=== PATIENT | male | born 1950 | race Caucasian/White ===

== ENCOUNTER 2019-02-14 07:57 | Outpatient (RCR) | payer OTHER, SELFPAY | END 2019-05-03 12:33 | disposition home or self-care (01) | LOC: ANHWOC 07:57 | PROVIDERS: PCP Emergency Medicine; Visit Provider Podiatrist Foot & Ankle Surgery | DX: E11.621 Type 2 diabetes mellitus with foot ulcer (principal); E11.42 Type 2 diabetes mellitus with diabetic polyneuropathy | CPT/HCPCS: 99212; G0463 ==

== ENCOUNTER 2019-06-03 07:33 | Outpatient (CLI) | payer OTHER, SELFPAY ==
--- NOTE | ~2019-06-03 | NM_ITS ---
EXAMINATION: NM bone 3 phase DATE: 06/03/2019 13:56 INDICATION: Chronic non pressure ulcer of the left foot TECHNIQUE: 24.5 mCi Tc-99m HDP by intravenous route. Scintigrams of the left foot were obtained in a ngiographic, blood pool, and delayed phases. COMPARISON: Left foot radiographs dated 03/09/2018. No more recent radiographs for comparison. Earlier triphase bone scan dated 09/22/2014 FINDINGS: There is increased activity on the angiographic phase images extending to the left foot in particular the region of the great toe. Persistent increased soft tissue activity on the immediate blood pool i mages surrounding the distal phalanx of the great toe There is increased delayed uptake at both the f irst proximal and distal branches. At the distal phalanx as well be consistent with osteomyelitis. Th e uptake at the base of the proximal phalanx could be related to osteoarthritis at the first metatars ophalangeal joint however there also appears to be slightly less prominent uptake and the intervening diaphysis of the proximal phalanx which remain suspicious for osteomyelitis. IMPRESSION: 1. 3 phase uptake at the left great toe consistent with osteomyelitis at least to the distal phalanx or possibly with extension to the proximal phalanx. Recommend comparison with plain radiographs of t he left great toe. Reviewed, dictated and finalized at location A. ET ASSEMBLER IMPRESSION: 1. 3 phase uptake at the left great toe consistent with osteomyelitis at least to the distal phalanx or possibly with extension to the proximal phalanx. Javier mmend comparison with plain radiographs of the left great toe.
== END 2019-06-03 07:34 | disposition home or self-care (01) ==
PROVIDERS: PCP Emergency Medicine; Visit Provider Podiatrist Foot & Ankle Surgery
DX: L97.522 Non-pressure chronic ulcer of other part of left foot with fat layer exposed (principal)
CPT/HCPCS: 78315; A9561

== ENCOUNTER 2020-01-31 08:14 | Outpatient (CLI) | payer OTHER, SELFPAY ==
--- NOTE | ~2020-01-31 | US_ITS ---
EXAMINATION: US art doppler w press LE BI DATE: 01/31/2020 09:15 INDICATION: Multiple skin ulcers at the bilateral lower limbs. Diabetes and hypercholesterolemia. TECHNIQUE: Segmental pressures and plethysmographic and Doppler waveforms of the brachial and lower e xtremity arteries were obtained. COMPARISON: None. FINDINGS: Cardiac arrhythmia is present consistent with given history of atrial fibrillation. Right and left br achial artery pressures of 109 mm Hg and 114 mm Hg, respectively, are concordant (normal difference < = 30 mmHg). The right ankle-brachial index (APRIL) is 1.46 (normal >= 0.9-1). The right great toe-brachial index (T BI) is 1.24 (normal >= 0.6-0.8). The right lower extremity segmental pressure gradients are increased between the right dorsalis pedis artery and the right posterior tibial artery (normal gradients <= 2 0-30 mmHg between adjacent levels on the same leg or the same levels on the two legs). Arterial wavef orms are triphasic at the right common femoral and dorsalis pedis arteries and biphasic at the remain ing arteries with brisk systolic upstrokes throughout. The left APRIL was unable to be obtained due to inability to occlude the vessels at the left ankle. The left TBI is 1.55. The left lower extremity segmental pressure gradients where measurable are normal. Arterial waveforms are triphasic at the left dorsalis pedis artery and biphasic at the remaining art eries with brisk systolic upstrokes throughout. IMPRESSION: 1. No significant arterial occlusive disease to either lower limb with normal bilateral TBIs. Reviewed, dictated and finalized at location B. IMPRESSION: 1. No significant arterial occlusive disease to either lower limb with normal b ilateral TBIs.
== END 2020-01-31 08:15 | disposition home or self-care (01) ==
LOC: ANHIMG 08:15
PROVIDERS: PCP Emergency Medicine; Visit Provider Emergency Medicine
DX: L98.491 Non-pressure chronic ulcer of skin of other sites limited to breakdown of skin (principal); I73.9 Peripheral vascular disease, unspecified
CPT/HCPCS: 93923

== ENCOUNTER 2021-01-06 13:51 | Outpatient (CLI) | payer OTHER, SELFPAY ==
--- NOTE | ~2021-01-06 | US_ITS ---
EXAMINATION: US renal BI DATE: 01/06/2021 14:30 INDICATION: Monoclonal gammopathy TECHNIQUE: Multiple ultrasound grayscale images of the kidneys were obtained. COMPARISON: 02/02/2016 FINDINGS: The right kidney measures 10.1 x 5.6 x 7.3 cm. The left kidney measures 11.3 x 5.3 x 5.5 cm. The kidn eys demonstrate normal echogenicity. There is no hydronephrosis in either kidney. No stones identifi ed. The bladder is normal. Diffuse hepatic steatosis. IMPRESSION: 1. Normal kidneys without hydronephrosis. 2. Diffuse hepatic steatosis. Reviewed, dictated and finalized at location B.
== END 2021-01-06 13:52 | disposition home or self-care (01) ==
PROVIDERS: PCP Emergency Medicine; Visit Provider Internal Medicine Nephrology
DX: D47.2 Monoclonal gammopathy (principal); N18.32 Chronic kidney disease, stage 3b; K76.0 Fatty (change of) liver, not elsewhere classified
CPT/HCPCS: 76775

== ENCOUNTER 2023-06-07 00:22 | Day surgery (SDC) | payer OTHER, SELFPAY ==
[2023-05-23 13:56] VITALS: BMI 40.6
--- NOTE | 2023-05-26 13:09 | PC.NURSE ---
Spoke with patient regarding medication WARFARIN. Pt. verbalizes understanding that the last dose of WARFARIN is to be taken on 06/02/2023 and the Endoscopist will instruct them when to restart after the procedure.
--- NOTE | 2023-06-05 09:42 | SUR.PREOP ---
Patient called regarding upcoming procedure. Reviewed preop instructions, appointment times, and procedure prep.
[2023-06-06 14:23] VITALS: BP 154/83; PULSE 91; RESP 20; TEMP 36.1; O2SAT 97
[2023-06-07] MEDS: LACTATED RINGERS 1,000 ML 150 ML IV CONT (06:25)
[2023-06-07 06:31] LABS: Glucose Point of Care 183 mg/dl (65-105)
--- NOTE | 2023-06-07 07:27 | WPDANESEPPF ---
Anes - Initial Pre Proc Eval Procedure: Operation Date: 06/07/23 07:30 Proposed Procedures p Colonoscopy - Anthony Sumner MD Date/Time: 06/07/23 07:27 Surgeon: Anthony Sumner MD Pre Op Diagnosis: hx colon polyps Patient Data Age: 73 Gender: M Height: 1.91 m Weight: 141.7 kg Last Vital Signs Temp 96.9 F L 06/06/23 14:23 Pulse 91 06/06/23 14:23 Resp 20 06/06/23 14:23 BP 154/83 H 06/06/23 14:23 Pulse Ox 97 06/06/23 14:23 O2 Del Method Room Air 06/06/23 14:23 Allergies Allergy/AdvReac Type Severity Reaction Status Date / Time No Known Allergies Allergy Verified 06/07/23 06:20 Home Medications Medication Instructions Recorded Confirmed Type carvedilol 25 mg tablet 25 mg PO BID 01/30/19 06/07/23 History losartan 50 mg tablet 50 mg PO DAILY 01/30/19 06/07/23 History potassium chloride 20 mEq 20 meq PO DAILY 01/30/19 06/07/23 History tablet,extended release spironolactone 50 mg tablet 50 mg PO DAILY 01/30/19 06/07/23 History pen needle, diabetic 31 gauge x #30 ea 04/25/19 06/06/23 History 1/4 (ReliOn Dorris) blood-glucose meter (Contour Next #1 ea 07/29/19 06/06/23 Rx Meter) warfarin 5 mg tablet See Rx Instructions .Route .COMPLEX 11/22/19 06/07/23 History blood sugar diagnostic (Contour #400 ea 04/26/21 06/06/23 Rx Next Test Strips) lancets (Microlet Lancet) #400 ea 05/24/21 06/06/23 Rx pen needle, diabetic 32 gauge x #200 ea 03/15/22 06/06/23 Rx 5/32 (BD Ultra-Fine Lona Pen Needle) fenofibrate 54 mg tablet 54 mg PO DAILY #90 tabs 11/02/22 06/07/23 Rx flash glucose sensor (FreeStyle #2 ea 03/17/23 06/06/23 Rx Germania 2 Sensor kit) gabapentin 100 mg capsule 100 mg PO TID #270 caps 04/19/23 06/07/23 Rx insulin regular hum U-500 conc 500 See Rx Instructions subcut 05/03/23 06/07/23 Rx unit/mL(3 mL) subcut pen (Humulin BIDWMEAL #36 mL R U-500 (Conc) Insulin Kwikpen) atorvastatin 40 mg tablet See Rx Instructions .Route 05/15/23 06/07/23 Rx .COMPLEX #90 tabs furosemide 80 mg tablet 80 mg PO DIRECTED 05/23/23 06/07/23 History Laboratory Tests 06/07/23 06:25 POC Capillary Glucose 183 H mg/dl (65-105) Patient hx anesthesia problems: none Family hx anesthesia problems: none Results Review: All pre-operative results and documents have been reviewed as part of the pre-operative evaluation. [facility] Past Medical History Medical History Afib ASHD (arteriosclerotic heart disease) Asthma Basal cell carcinoma (BCC) of brow BMI greater than 40 CHF (congestive heart failure) Chronic a-fib Chronic pain of both knees CKD (chronic kidney disease) stage 4, GFR 15-29 ml/min Claudication of both lower extremities Contact dermatitis Diabetes mellitus Diabetic ulcer of toe of left foot HTN (hypertension), benign Hyperlipidemia LDL goal <100 Insulin resistance Metabolic syndrome Mixed hyperlipidemia Multiple myeloma Type 2 diabetes mellitus with hyperglycemia, with long-term current use of insulin Urticaria Vitamin D deficiency Surgical History Surgical History H/O arthroscopy of left knee H/O arthroscopy of right knee History of facial surgery removal of basal cell carcinoma with skin graft Family History Family History Father Family history of emphysema, Onset Age: 69 Social History Social History Smoking status: Never smoker Alcohol intake: current Substance use: never Substance use type: does not use Do You Feel Safe in your Home?: Yes Lack of Transportation: No Lack of Food: Never True Current Housing: I Have Housing Concerned About Future Housing: No Difficulty Paying Gas/Electric Bills: No Difficulty Paying for Meds: No Currentl
--- NOTE | 2023-06-07 07:29 | PM.HPGS ---
History of Present Illness History of Present Illness Consent: Risks, benefits, and alternatives have been discussed and questions answered. Patient agrees to proceed with procedure. Chief complaint: hx colon polyps Narrative: Erwin Isaac is a 73 year old male with history of polyps, last colonoscopy 2016 Review of Systems Constitutional: Constitutional: Denies headache(s) and Denies weakness Eyes: Eyes: Denies blurry vision ENT: Reports Normal hearing present, Denies headache(s) and Denies neck pain Cardiovascular: Cardiovascular: Denies chest pain and Denies dyspnea Respiratory: Respiratory: Denies dyspnea Gastrointestinal: Gastrointestinal: Reports no additional gastrointestinal complaints Genitourinary: Genitourinary: Denies dysuria Musculoskeletal: Musculoskeletal: Denies neck pain Integumentary/Breasts: Skin/Breast: Denies dry skin Neurologic: Reports Normal hearing present, Denies headache(s) and Denies weakness Psychiatric: Psychiatric: Denies anxiety Endocrine: Endocrine: Denies change in body appearance Hematologic/Lymphatic: Hematologic/Lymphatic: Denies easy bleeding Allergic/Immunologic: Allergic/Immunologic: Denies urticaria PMFSH Past Medical History Medical History (Updated 06/07/23 @ 07:30 by Anthony Sumner MD) Afib ASHD (arteriosclerotic heart disease) Asthma Basal cell carcinoma (BCC) of brow BMI greater than 40 CHF (congestive heart failure) Chronic a-fib Chronic pain of both knees CKD (chronic kidney disease) stage 4, GFR 15-29 ml/min Claudication of both lower extremities Colon cancer screening Contact dermatitis Diabetes mellitus Diabetic ulcer of toe of left foot HTN (hypertension), benign Hyperlipidemia LDL goal <100 Insulin resistance Metabolic syndrome Mixed hyperlipidemia Multiple myeloma Type 2 diabetes mellitus with hyperglycemia, with long-term current use of insulin Urticaria Vitamin D deficiency Surgical History Surgical History H/O arthroscopy of left knee H/O arthroscopy of right knee History of facial surgery removal of basal cell carcinoma with skin graft Family History Family History Father Family history of emphysema, Onset Age: 69 Social History Social History Smoking status: Never smoker Alcohol intake: current Substance use: never Substance use type: does not use Do You Feel Safe in your Home?: Yes Lack of Transportation: No Lack of Food: Never True Current Housing: I Have Housing Concerned About Future Housing: No Difficulty Paying Gas/Electric Bills: No Difficulty Paying for Meds: No Currently Unemployed: No Education: High School Diploma/GED Difficulty w/ Childcare or Family Care: No Living arrangements: with family Occupation/Education: retired Spiritual care concerns: No Meds Home Medications and Allergies Home Medications Medication Instructions Recorded Confirmed Type carvedilol 25 mg tablet 25 mg PO BID 01/30/19 06/07/23 History losartan 50 mg tablet 50 mg PO DAILY 01/30/19 06/07/23 History potassium chloride 20 mEq 20 meq PO DAILY 01/30/19 06/07/23 History tablet,extended release spironolactone 50 mg tablet 50 mg PO DAILY 01/30/19 06/07/23 History pen needle, diabetic 31 gauge x #30 ea 04/25/19 06/06/23 History 1/4 (ReliOn Strawberry) blood-glucose meter (Contour Next #1 ea 07/29/19 06/06/23 Rx Meter) warfarin 5 mg tablet See Rx Instructions .Route .COMPLEX 11/22/19 06/07/23 History blood sugar diagnostic (Contour #400 ea 04/26/21 06/06/23 Rx Next Test Strips) lancets (Microlet Lancet) #400 ea 05/24/21 06/06/23 Rx pen needle, diabetic 32 gauge x #200 ea 03/15/22 06/06/23 Rx / (BD Ultra-Fine Lona Pen Needle) fenofibrate 54 mg tablet 54 mg PO DAILY #90 tabs 08
[2023-06-07 07:47] VITALS: BP 130/76; PULSE 76; RESP 24; O2SAT 98
[2023-06-07 07:57] VITALS: BP 112/63; PULSE 72; RESP 19; O2SAT 99
[2023-06-07 08:08] VITALS: BP 117/64; PULSE 71; RESP 21; O2SAT 99
[2023-06-07 08:13] LABS: Glucose Point of Care 188 mg/dl (65-105)
== END 2023-06-07 08:30 | disposition home or self-care (01) ==
PROVIDERS: PCP Emergency Medicine; Visit Provider Internal Medicine Gastroenterology
PROC: 0DJD8ZZ Inspection of Lower Intestinal Tract, Via Natural or Artificial Opening Endoscopic (ICD-10-PCS; CPT 45378; principal; 2023-06-07 07:30)
DX: Z12.11 Encounter for screening for malignant neoplasm of colon (principal); D12.2 Benign neoplasm of ascending colon; D12.3 Benign neoplasm of transverse colon; D12.4 Benign neoplasm of descending colon; K64.8 Other hemorrhoids; I25.10 Atherosclerotic heart disease of native coronary artery without angina pectoris; I48.20 Chronic atrial fibrillation, unspecified; I13.0 Hypertensive heart and chronic kidney disease with heart failure and stage 1 through stage 4 chronic kidney disease, or unspecified chronic kidney disease; E11.22 Type 2 diabetes mellitus with diabetic chronic kidney disease; N18.4 Chronic kidney disease, stage 4 (severe); I50.9 Heart failure, unspecified; E78.2 Mixed hyperlipidemia; C90.00 Multiple myeloma not having achieved remission; E66.01 Morbid (severe) obesity due to excess calories; Z68.39 Body mass index [BMI] 39.0-39.9, adult; Z79.01 Long term (current) use of anticoagulants; Z79.4 Long term (current) use of insulin
CPT/HCPCS: 45385; 82948; 88305; J2001; J2704; J7120

== ENCOUNTER 2023-11-01 08:38 | Outpatient (RCR) | payer OTHER, SELFPAY ==
[2023-11-01 09:11] VITALS: BMI 37.5
== END 2023-12-06 15:08 | disposition home or self-care (01) ==
LOC: ANHWOC 08:38
PROVIDERS: PCP Emergency Medicine; Visit Provider Emergency Medicine
DX: S81.809D Unspecified open wound, unspecified lower leg, subsequent encounter (principal)
CPT/HCPCS: 99213; A9270; G0463

== ENCOUNTER 2024-01-22 10:43 | Emergency (ER) | payer OTHER, SELFPAY ==
[2024-01-22] VITALS (10 sets, daily range): BP systolic 90–122; BP diastolic 25–62; PULSE 61–78; RESP 16–20; TEMP 36.4; O2SAT 98–100
--- NOTE | ~2024-01-22 | US_ITS ---
EXAMINATION:US venous doppler LE BI INDICATION:Bilateral leg swelling TECHNIQUE: Multiple grayscale, color flow and Doppler images of the right and left lower extremity de ep venous systems were obtained and reviewed. COMPARISON:No prior studies for comparison. FINDINGS: The common femoral, superficial femoral and popliteal veins demonstrate normal respiratory variation, augmentation and compressibility. Color flow is also seen within the posterior tibial, pe roneal, greater saphenous and profunda veins. IMPRESSION: 1: No lower extremity deep venous thrombosis. Reviewed, dictated and finalized at location B.
[2024-01-22 12:47] LABS: Basophils Percent Auto 0.5 % (0.2-1.2); Eosinophils Absolute Auto 0.2 K/mm3 (0-0.3); Eosinophils Percent Auto 2.3 % (0-4.4); Hematocrit 35.1 % (42.0-52.0); Hemoglobin 11.8 g/dL (14.0-18.0); Immature Granulocyte Absolute 0.13 K/mm3 (0.00-0.031); Immature Granulocyte Percent A 1.6 % (0-0.5); Lymphocytes Absolute Auto 1.06 K/mm3 (0.9-3.2); Lymphocytes Percent Auto 12.7 % (18.3-44.2); Mean Corpuscular HGB Conc 33.6 g/dl (32-36); Mean Corpuscular Hemoglobin 32.6 pg (26-34); Mean Platelet Volume 10.5 fl (7.4-10.4); Monocytes Absolute Auto 0.8 K/mm3 (0.1-0.6); Monocytes Percent Auto 9.7 % (2.6-8.5); Neutrophils Absolute Auto 6.1 K/mm3 (1.3-6.7); Neutrophils Percent Auto 73.2 % (45.5-73.1); Platelet Count Result 223 k/mm3 (150-375); Red Blood Count 3.62 M/mm3 (4.6-6.20); Red Cell Distribution Width 13.2 % (11.5-14.5); White Blood Count 8.4 K/mm3 (4.5-10.0)
--- NOTE | 2024-01-22 12:49 | ED.EXTPRO ---
HPI - Extremity Problem General Chief complaint: Extremity Problem,Nontraumatic Stated complaint: foot wounds Time Seen by Provider: 01/22/24 11:06 History of Present Illness HPI Narrative: Patient is a 73-year-old male who presents to the ER with complaints of bilateral lower extremity swelling and some open wounds. He reports he has history of diabetes and CHF. Patient reports he has a ultrasound of his lower extremities, but he canceled the appointment because of the co-pay. He also reports he is supposed to go to wound care clinic but he canceled that appointment also. Related Data Home Medications Medication Instructions Recorded Confirmed carvedilol 25 mg tablet 25 mg PO BID 01/30/19 01/15/24 losartan 50 mg tablet 50 mg PO DAILY 01/30/19 01/15/24 potassium chloride 20 mEq 20 meq PO DAILY 01/30/19 01/15/24 tablet,extended release spironolactone 50 mg tablet 50 mg PO DAILY 01/30/19 01/15/24 warfarin 5 mg tablet See Rx Instructions .Route .COMPLEX 11/22/19 01/15/24 furosemide 80 mg tablet 80 mg PO DIRECTED 05/23/23 01/15/24 semaglutide 1 mg/dose (2 mg/1.5 1 mg subcut WEEKLY 11/01/23 01/15/24 mL) subcutaneous pen injector insulin regular hum U-500 conc 500 45 unit subcut DAILY 01/15/24 01/15/24 unit/mL(3 mL) subcut pen (Humulin R U-500 (Conc) Insulin Kwikpen) Allergies Allergy/AdvReac Type Severity Reaction Status Date / Time No Known Allergies Allergy Verified 01/22/24 10:44 Review of Systems Review of Systems: All systems reviewed & are unremarkable except as noted in HPI and below PMFSH Past Medical History Medical History Afib ASHD (arteriosclerotic heart disease) Asthma Basal cell carcinoma (BCC) of brow BMI greater than 40 CHF (congestive heart failure) Chronic a-fib Chronic pain of both knees CKD (chronic kidney disease) stage 4, GFR 15-29 ml/min Claudication of both lower extremities Colon cancer screening Contact dermatitis Diabetes mellitus Diabetic ulcer of toe of left foot HTN (hypertension), benign Hyperlipidemia LDL goal <100 Insulin resistance Metabolic syndrome Mixed hyperlipidemia Multiple myeloma Type 2 diabetes mellitus with hyperglycemia, with long-term current use of insulin Urticaria Vitamin D deficiency Surgical History Surgical History H/O arthroscopy of left knee H/O arthroscopy of right knee History of facial surgery removal of basal cell carcinoma with skin graft Family History Family History Father Family history of emphysema, Onset Age: 69 Social History Social History Smoking status: Never smoker Alcohol intake: current Substance use: never Substance use type: does not use Do You Feel Safe in your Home?: Yes Lack of Transportation: No Lack of Food: Never True Current Housing: I Have Housing Concerned About Future Housing: No Difficulty Paying Gas/Electric Bills: No Difficulty Paying for Meds: No Currently Unemployed: No Education: High School Diploma/GED Difficulty w/ Childcare or Family Care: No Living arrangements: with family Occupation/Education: retired Spiritual care concerns: No Exam Narrative: GENERAL: Well appearing, well-nourished, non-toxic, in no acute distress. HEAD: Normocephalic, atraumatic. NECK: Supple. No adenopathy, no masses. RESPIRATORY: Airway patent, respirations nonlabored. Clear to auscultation bilaterally, no rales, rhonchi, wheezing. CARDIOVASCULAR: Regular rate and rhythm without murmurs, rubs, or gallops. lower extremity peripheral pulses 1+, equal bilaterally, pitting edema. ABDOMINAL: Soft, nontender, nondistended, no hepatosplenomegaly. Normoactive BS. MUSCULOSKELETAL: Moves all extremities. Strength/ROM intact without gross defo
[2024-01-22 12:59] LABS: INR 3.3; Prothrombin Time 33.9 Seconds (11.1-14.7)
[2024-01-22 13:01] LABS: Lactic Acid Reflex 1.8 mmol/L (0.7-2.0)
[2024-01-22 13:04] LABS: Alanine Aminotransferase 24 U/L (6-50); Albumin Level 4.5 g/dL (3.5-5.1); Alkaline Phosphatase 68 U/L (38-126); Anion Gap 9 mmol/L (4-12); Aspartate Amino Transferase 25 U/L (17-59); Bilirubin,Total 0.7 mg/dL (0.2-1.3); Blood Urea Nitrogen 29 mg/dL (9-20); CRP < 0.5 mg/dL (<1.0); Calcium 9.8 mg/dL (8.4-10.2); Carbon Dioxide 30 mmol/L (22-30); Chloride 96 mmol/L (98-107); Estimated CRCL calculation 39 ml/min; Estimated Glomerular Filt Rate 28; Glucose 186 mg/dL (65-110); Potassium 4.5 mmol/L (3.4-5.0); Sodium 135 mmol/L (137-145)
[2024-01-22 13:12] LABS: Troponin I < 0.012 ng/mL (0.000-0.034)
[2024-01-22] MEDS: SODIUM CHLORIDE 0.9% IV 1,000 ML 500 ML IV CONT (13:26)
[2024-01-22] MEDS: CEFEPIME 2 GM/NS 50 ML 2 GM/50 ML BAG IVPB (13:26)
[2024-01-22] MEDS: metroNIDAZOLE 500 MG/ISO 100ML 500 MG/100 ML BAG 100 MG IVPB (13:28)
[2024-01-22 14:50] LABS: NT Pro B Type Natriuretic Pept 429 pg/mL (19.9-100)
[2024-01-22] MEDS: VANCOMYCIN 1,250 MG/NS 250 ML 1,250 MG/250 ML BAG 166.67 MG IVPB ×2 (14:55→16:38)
--- NOTE | 2024-01-22 15:08 | PCWOUND ---
WOCN Note Received consult for bilateral lower leg wounds. Spoke with ED charge who also spoke with hospitalist, no need to see patient.
[2024-01-22 15:31] LABS: Add Urine Microscopic? YES; Appearance Urine Clear (Clear); Bacteria Urine None Seen /hpf; Bilirubin Urine Negative (Negative); Blood Urine Negative (Negative); Color Urine Yellow (Yellow); Glucose Urine UA Negative (Negative); Ketones Urine Negative (Negative); Leukocyte Esterase Ur Trace LEU/UL (Negative); Nitrate Urine Negative (Negative); Non Pathogenic Casts 0-2; Protein Urine Negative (Negative); RBC Urine 0-2 /hpf (0-2); Specific Grav Ur 1.009 (1.001-1.035); Squamous Epithelial Cell Urine None Seen /hpf (Few); Urobilinogen Urine 0.2 mg/dL (<2.0); WBC Urine 0-5 /hpf (0-3)
[2024-01-22] MEDS: FUROSEMIDE INJ 40 MG/4 ML VIAL IV PUSH (17:44)
== END 2024-01-22 19:03 | disposition home or self-care (01) ==
PROVIDERS: Emergency Provider Registered Nurse; PCP Emergency Medicine
DX: R60.9 Edema, unspecified (principal); I87.8 Other specified disorders of veins; E11.40 Type 2 diabetes mellitus with diabetic neuropathy, unspecified; Z79.4 Long term (current) use of insulin; I50.9 Heart failure, unspecified; I13.0 Hypertensive heart and chronic kidney disease with heart failure and stage 1 through stage 4 chronic kidney disease, or unspecified chronic kidney disease; E11.22 Type 2 diabetes mellitus with diabetic chronic kidney disease; N18.4 Chronic kidney disease, stage 4 (severe)
CPT/HCPCS: 36415; 80053; 81001; 83605; 83880; 84484; 85025; 85610; 85730; 86140; 87040; 93970; 96361; 96365; 96366; 96367; 96375; 99284; J0692; J1836; J1940; J3370; J7030

== ENCOUNTER 2024-02-11 13:06 | Observation (INO) | payer OTHER, SELFPAY ==
[2024-02-11] VITALS (16 sets, daily range): BP systolic 96–117; BP diastolic 43–64; PULSE 77–95; RESP 15–24; TEMP 36.8–36.9; O2SAT 94–100
--- NOTE | ~2024-02-11 | XR_ITS ---
Portable chest x-ray Comparison: 11/02/2011 Clinical History: Shortness of breath, weakness Findings: Lungs are clear, without focal consolidation or pleural effusion. Cardiomediastinal silho uette is stable. Bones and soft tissues are unremarkable. Impression: Clear lungs. Reviewed, dictated and finalized at location . L COAT SPRAYER Impression: Clear lungs.
--- NOTE | ~2024-02-11 | MR_ITS ---
EXAMINATION: MR lumbar spine wo con DATE: 02/13/2024 08:54 INDICATION: Lower extremity weakness. TECHNIQUE: Magnetic resonance imaging (MRI) of the lumbar spine was performed without intravenous con trast. Sequences included sagittal T2-weighted FSE, sagittal T2-weighted FS FSE, sagittal T1-weighted FSE, and axial T2-weighted FSE. COMPARISON: CT lumbar spine 02/11/2024 FINDINGS: There is 6 degrees levocurvature of lumbar spine. There is mild chronic anterior wedging of T12 and L1 vertebral bodies. There is mildly decreased disc height at T12-L1, L3-L4, L4-L5, and L5-S 1. The distal spinal cord signal intensity is normal. The conus medullaris is at T12. The following d isc levels are specifically discussed: L1-L2: The disc does not extend beyond the endplate margin. There is moderate and severe left facet j oint osteoarthritis. There is mild bilateral neural foraminal stenosis. There is no central canal agatha nosis. L2-L3: The disc is bulging. There is moderate bilateral facet joint osteoarthritis. There is moderate right and mild left neural foraminal stenosis. There is mild central canal stenosis. L3-L4: The disc is bulging. There is severe bilateral facet joint osteoarthritis. There is moderate r ight and mild left neural foraminal stenosis. There is mild central canal stenosis. L4-L5: The disc is bulging and has an annular fissure. There is severe bilateral facet joint osteoart hritis. There is moderate bilateral neural foraminal stenosis. There is mild central canal stenosis. There is severe stenosis of the lateral recesses. L5-S1: The disc is bulging with superimposed left subarticular and foraminal zone extrusion with mass effect on left S1 nerve root in left lateral recess. There is severe bilateral facet joint osteoarth ritis. There is mild right and moderate left neural foraminal stenosis. There is mild central canal s tenosis. There is severe stenosis of left lateral recess. IMPRESSION: 1. Moderate lumbar spondylosis, worst at L4-L5 and L5-S1. Reviewed, dictated and finalized at location A. INIST APPRENTICE
--- NOTE | ~2024-02-11 | CT_ITS ---
[facility] DATE: 02/11/2024 15:46 INDICATION: leukocytosis, lower extremity weakness . TECHNIQUE: Computed tomography (CT) of the chest, abdomen, and pelvis and thoracic and lumbar spine w as performed with 100 mL Omnipaque-350 intravenous contrast. Automated exposure control and iterative reconstruction technique were employed. The dose-length product was 1951.58 mGy-cm. COMPARISON: None FINDINGS: CHEST: Thoracic aorta: No significant dilation. No dissection. Mild atherosclerotic calcification. Lung parenchyma and airways: 2 mm superior segment right lower lobe nodule (axial image 48). 4 mm rig ht lower lobe nodule (coronal image 88). 9 mm right lower lobe nodule (axial image 88). Lungs otherwi se clear. Patent airways. Thoracic inlet, axillae and chest wall: Moderate symmetric gynecomastia. No thyroid mass. No axillary lymphadenopathy. Mediastinum: Enlarged subcarinal lymph node. Heart and pericardium: Normal heart size. Aortic valve calcification. No pericardial effusion. Coronary artery calcifications: Moderate. Pleura: No effusion or mass. Thoracic bones (excluding spine): No acute osseous finding in the chest. ABDOMEN/PELVIS: Liver: Normal. Biliary/Gallbladder: Cholelithiasis. No inflammatory changes. No bile duct dilation. Pancreas: 8 mm cyst in the pancreatic body. Spleen: Normal. Adrenals:Indeterminate density 2 cm left adrenal nodule. Kidneys: No suspicious mass, obstructing stone, or hydronephrosis. Bilateral cortical thinning. GI tract: No small or large bowel dilation. Normal appendix. Mesentery/Peritoneum: No ascites, mass, or free air. Retroperitoneum: No mass Atherosclerotic abdominal aortic and/or arterial calcifications. Pelvis: Distended urinary bladder. Prostatomegaly. Soft Tissues: Small uncomplicated fat-containing bilateral inguinal and umbilical hernias. Abdominopelvic bones (excluding spine): No acute osseous finding in the abdomen/pelvis. THORACIC SPINE: Vertebral body alignment intact. Vertebral body heights preserved. Multilevel moderate degenerative d isc disease and facet arthropathy. No traumatic malalignment or fracture. Mild scoliosis. Mild diffus e, possibly congenital canal narrowing. Multilevel moderate right-sided neural foraminal narrowing. N o severe neural foraminal or central canal narrowing LUMBAR SPINE: 5 nonrib-bearing lumbar-type vertebral bodies. Pedicles intact. Normal vertebral body alignment. Diff usely narrow appearing canal, with moderate central canal narrowing at L3-4 and L4-5. No severe centr al canal or neural foraminal narrowing. Mild scoliosis. Vertebral body heights preserved. Multilevel moderate disc disease and facet arthropathy. IMPRESSION: Multiple pulmonary nodules measuring up to 9 mm in the right lower lobe. Recommend follow-up low-dose noncontrast CT of the chest in 3-6 months. Mediastinal lymphadenopathy. 8 mm pancreatic body cyst, recommend follow-up CT abdomen and pelvis with contrast in 2 years. 2.0 cm left adrenal nodule, probably benign, consider follow-up adrenal CT in 12 months, unless there is a history of cancer, in which case consider referral for nonemergent outpatient adrenal CT now. No acute fracture fracture or traumatic malalignment detected in the thoracic or lumbar spine. Reviewed, dictated and finalized at location K. LATORY SERVICES CONSULTANT IMPRESSION: Multiple pulmonary nodules measuring up to 9 mm in the right lower lobe. Recomm end follow-up low-dose noncontrast CT of the chest in 3-6 months. Mediastinal lymphadenopathy. 8 mm pancreatic body cyst, recommend follow-up CT abdomen and pelvis with contr ast in 2 years. 2.0 cm left adrenal nodule, probably benign, consider follow-up adrenal CT in 1 2 months, unless there is a history of cancer, in which case consider referral for nonemergent outpatient adrenal CT now. No acute fracture fracture or traumatic malalignment detected in the thoracic o r lumbar spine.
--- NOTE | 2024-02-11 13:18 | ECG_ITS ---
Test Date: 2024-02-11 13:22:00 Measurements Intervals [place] Rate: 75 P: 0 CA: 0 QRS: 13 QRSD: 157 T: 27 QT: 400 QTc: 449 Interpretive Statements ATRIAL FIBRILLATION WITH NORMAL VENTRICULAR RESPONSE RIGHT BUNDLE BRANCH BLOCK CONSIDER INFERIOR INFARCT, AGE INDETERMINATE BASELINE ARTIFACT- I, II, III, AVR, AVL, AVF ABNORMAL ECG No previous ECG available for comparison Electronically Signed On 02-11-2024 18:37:40 WEIGHTS AND MEASURES INSPECTOR by Humble Gallego D.O.
[2024-02-11 13:28] LABS: Basophils Absolute Auto 0.1 K/mm3 (0.0-0.1); Basophils Percent Auto 0.3 % (0.2-1.2); Hematocrit 30.5 % (42.0-52.0); Hemoglobin 10.4 g/dL (14.0-18.0); Immature Granulocyte Absolute 0.92 K/mm3 (0.00-0.031); Immature Granulocyte Percent A 4.6 % (0-0.5); Lymphocytes Absolute Auto 0.99 K/mm3 (0.9-3.2); Lymphocytes Percent Auto 4.9 % (18.3-44.2); Mean Corpuscular HGB Conc 34.1 g/dl (32-36); Mean Corpuscular Hemoglobin 32.9 pg (26-34); Mean Corpuscular Volume 96.5 fl (80-100); Mean Platelet Volume 11.1 fl (7.4-10.4); Monocytes Absolute Auto 1.5 K/mm3 (0.1-0.6); Monocytes Percent Auto 7.4 % (2.6-8.5); Neutrophils Absolute Auto 16.6 K/mm3 (1.3-6.7); Neutrophils Percent Auto 82.8 % (45.5-73.1); Platelet Count Result 166 k/mm3 (150-375); Red Blood Count 3.16 M/mm3 (4.6-6.20); Red Cell Distribution Width 13.3 % (11.5-14.5); White Blood Count 20.1 K/mm3 (4.5-10.0)
[2024-02-11 13:34] LABS: Add Urine Microscopic? YES; Appearance Urine Turbid (Clear); Bacteria Urine 4+ /hpf; Bilirubin Urine Negative (Negative); Blood Urine 1+ (Negative); Color Urine Yellow (Yellow); Glucose Urine UA Negative (Negative); Ketones Urine Trace mg/dL (Negative); Leukocyte Esterase Ur 3+ LEU/UL (Negative); Nitrate Urine Negative (Negative); Protein Urine Trace mg/dL (Negative); RBC Urine 0-2 /hpf (0-2); Specific Grav Ur 1.012 (1.001-1.035); Squamous Epithelial Cell Urine None Seen /hpf (Few); Urobilinogen Urine 0.2 mg/dL (<2.0); WBC Urine >100 /hpf (0-3)
[2024-02-11 13:38] LABS: Alanine Aminotransferase 23 U/L (6-50); Albumin Level 3.8 g/dL (3.5-5.1); Alkaline Phosphatase 57 U/L (38-126); Anion Gap 12 mmol/L (4-12); Aspartate Amino Transferase 29 U/L (17-59); Bilirubin,Total 1.8 mg/dL (0.2-1.3); Blood Urea Nitrogen 41 mg/dL (9-20); Calcium 8.9 mg/dL (8.4-10.2); Carbon Dioxide 25 mmol/L (22-30); Chloride 93 mmol/L (98-107); Estimated CRCL calculation 38 ml/min; Estimated Glomerular Filt Rate 27; Glucose 192 mg/dL (65-110); Sodium 130 mmol/L (137-145)
[2024-02-11 13:49] LABS: NT Pro B Type Natriuretic Pept 1270 pg/mL (19.9-100); Troponin I < 0.012 ng/mL (0.000-0.034)
[2024-02-11 13:53] LABS: Burr Cells 1+; Platelet Estimate Adequate (Adequate); Schistocytes None Seen
[2024-02-11 13:55] LABS: INR 3.8; Partial Thromboplastin Time 59.2 Seconds (22.3-36.8); Prothrombin Time 37.9 Seconds (11.1-14.7)
--- NOTE | 2024-02-11 14:44 | ED.EXTPRO ---
HPI - Extremity Problem General Chief complaint: Extremity Problem,Nontraumatic <Devora Wallace PA-C - Last Filed: 02/11/24 22:11> Stated complaint: BLE WEAKNESS AND EDEMA <Devora Wallace PA-C - Last Filed: 02/11/24 22:11> Time Seen by Provider: 02/11/24 14:07 <Devora Wallace PA-C - Last Filed: 02/11/24 22:11> Source: patient <СЕРГЕЙ Shepherd Last Filed: 02/11/24 22:11> Mode of arrival: EMS <Devora Wallace PA-C - Last Filed: 02/11/24 22:11> Limitations: no limitations <Devora Wallace PA-C - Last Filed: 02/11/24 22:11> History of Present Illness HPI Narrative: This is a 73-year-old male that presents to the emergency department for lower extremity weakness. Progressively worsening over the last couple of weeks. Reports he is to the point where he can barely feel either of his legs. He cannot walk. He has been urinating on himself. Reports some bowel incontinence. Reports ongoing problems with lower extremity edema. Denies fever, chest pain, shortness of breath. <Devora Wallace PA-C - Last Filed: 02/11/24 22:11> Related Data Home medications: Home Medications Medication Instructions Recorded Confirmed carvedilol 25 mg tablet 25 mg PO BID 01/30/19 02/11/24 losartan 50 mg tablet 50 mg PO DAILY 01/30/19 02/11/24 potassium chloride 20 mEq 20 meq PO DAILY 01/30/19 02/11/24 tablet,extended release spironolactone 50 mg tablet 50 mg PO DAILY 01/30/19 02/11/24 warfarin 5 mg tablet 5 mg PO DAILY 11/22/19 02/11/24 furosemide 80 mg tablet 80 mg PO BID 05/23/23 02/11/24 semaglutide 1 mg/dose (2 mg/1.5 1 mg subcut WEEKLY 11/01/23 02/11/24 mL) subcutaneous pen injector insulin regular hum U-500 conc 500 40 unit subcut DAILY 01/15/24 02/11/24 unit/mL(3 mL) subcut pen (Humulin R U-500 (Conc) Insulin Kwikpen) fenofibrate 54 mg tablet 54 mg PO DAILY 02/11/24 02/11/24 <Devora Wallace PA-C - Last Filed: 02/11/24 22:11> Allergies/Adverse reactions: Allergies Allergy/AdvReac Type Severity Reaction Status Date / Time No Known Allergies Allergy Verified 02/11/24 13:19 <Devora Wallace PA-C - Last Filed: 02/11/24 22:11> Review of Systems Review of Systems: CONSTITUTIONAL: Denies fever CARDIOVASCULAR: Reports edema. Denies chest pain RESPIRATORY: Denies dyspnea. GASTROINTESTINAL: Reports diarrhea and abdominal pain GENITOURINARY: Denies dysuria or hematuria. MUSCULOSKELETAL: Denies back pain NEUROLOGIC: Reports numbness, and weakness. <Devora Wallace PA-C - Last Filed: 02/11/24 22:11> All systems reviewed & are unremarkable except as noted in HPI and below <Devora Wallace PA-C - Last Filed: 02/11/24 22:11> [facility] Past Medical History Medical History: Medical History (Updated 02/12/24 @ 14:12 by Gela Pedraza APRN) Asthma Atrial fibrillation Basal cell carcinoma (BCC) of brow Chronic anticoagulation Chronic kidney disease, stage 4 (severe) Hypertension Insulin dependent type 2 diabetes mellitus Mixed hyperlipidemia Multiple myeloma poorly documented Nonischemic cardiomyopathy Urticaria Venous insufficiency Vitamin D deficiency <Devora Wallace PA-C - Last Filed: 02/11/24 22:11> Surgical History Surgical History: Surgical History (Updated 02/11/24 @ 23:24 by Rima Goss PA-C) History of arthroscopy of both knees History of basal cell carcinoma excision History of bilateral cataract extraction History of cardiac catheterization no obstructive disease per patient report History of cardioversion History of colonoscopy with polypectomy <Devora Wallace PA-C - Last Filed: 02/11/24 22:11> Family History Family History: Family History Father Family history of emphysema, Onset Age: 69 <Devora Wallace PA-C - Last Filed: 02/11/24 22:11> Social History Social History: Social History (Updated 02/11/24 @ 23:19 by Rima Goss PA-C) Social History: Surrogate medical decision maker: Jose Isaac (son) or Joys Weston (sibling). Code status: Full code. Smoking status: Never smoker Alcohol intake: current Alcohol use details: social alcohol use in moderation Substance use: never Substance use type: does not use Do You Feel Safe in your Home?: No Lack of Transportation: No Lack of Food: Never True Current Housing: I Have Housing Concerned About Future Housing: No Difficulty Paying Gas/Electric Bills: No Difficulty Paying for Meds: No Currently Unemployed: No Education: High School Diploma/GED Difficulty w/ Childcare or Family Care: No Living arrangements: alone Additional living arrangements comments: the patient lives in his own home in [place] Occupation/Education: retired Spiritual care concerns: No <Devora Wallace PA-C - Last Filed: 02/11/24 22:11> Exam Narrative: GENERAL: Elderly, well-nourished, and in no acute distress. HEAD: Normocephalic, atraumatic. EYES: PERRLA and EOMI. ENT: Nares clear, no rhinorrhea or epistaxis. Mucous membranes moist. Oropharynx without tonsillar hypertrophy exudate or other lesions. Bilateral TMs pearly [place] non-bulging NECK: Supple. No adenopathy or masses. CHEST: Clear to auscultation. No respiratory distress. No wheezes rales or rhonchi HEART: Regular rate and rhythm. No murmur heard. Normal peripheral pulses. ABDOMEN: Soft, nontender, nondistended, normal active bowel sounds. EXTREMITIES: Normal range of motion in the feet and ankles. Unable to bend at the knees. 1+ pitting edema to the bilateral lower extremities. DP pulses obtained via doppler. Sensation markedly decreased to the bilateral lower legs from the thighs to the toes SKIN: Warm, dry, no rash. No wounds noted NEURO: No focal deficits. Alert and oriented x3. PSYCH: Normal mood and affect <Devora Wallace PA-C - Last Filed: 02/11/24 22:11> Course Course Emergency Course: Patient and family updated on workup and recommendation for admission <Devora Wallace PA-C - Last Filed: 02/11/24 22:11> [employer]ENZ[employer] WORKER/PA Physician Supervision I was in the emergency department and available for consultation but did not personally evaluate this patient and was not involved in their care. <Ann Marie Perez MD - Last Filed: 02/13/24 08:12> Consultations Consultation #1: Spoke with hospitalist about patient and workup who accepts admission. Will place neurosurgery consult for lower extremity weakness <Devora Wallace PA-C - Last Filed: 02/11/24 22:11> Date: 02/11/24 <Devora Wallace PA-C - Last Filed: 02/11/24 22:11> Vital Signs Vital signs: Vital Signs Temperature 98.5 F 02/11/24 13:05 Pulse Rate 83 02/11/24 13:05 Respiratory Rate 20 02/11/24 13:05 Blood Pressure 96/52 L 02/11/24 13:05 Pulse Oximetry 97 02/11/24 13:05 Oxygen Delivery Room Air 02/11/24 13:05 Temperature 96.8 F L 02/13/24 05:05 Pulse Rate 90 02/13/24 05:05 Respiratory Rate 16 02/13/24 05:05 Blood Pressure 112/69 02/13/24 05:05 Pulse Oximetry 98 02/13/24 05:05 Oxygen Delivery Room Air 02/12/24 20:00 <Devora Wallace PA-C - Last Filed: 02/11/24 22:11> Vital Signs Temperature 98.5 F 02/11/24 13:05 Pulse Rate 83 02/11/24 13:05 Respiratory Rate 20 02/11/24 13:05 Blood Pressure 96/52 L 02/11/24 13:05 Pulse Oximetry 97 02/11/24 13:05 Oxygen Delivery Room Air 02/11/24 13:05 Temperature 96.8 F L 02/13/24 05:05 Pulse Rate 90 02/13/24 05:05 Respiratory Rate 16 02/13/24 05:05 Blood Pressure 112/69 02/13/24 05:05 Pulse Oximetry 98 02/13/24 05:05 Oxygen Delivery Room Air 02/12/24 20:00 <Ann Marie Perez MD - Last Filed: 02/13/24 08:12> MDM - Extremity (Nontraumatic) MDM Narrative Medical decision making narrative: Patient presents to the emergency department for lower extremity edema and weakness. Worsening over the last several weeks. Patient is afebrile and nontoxic appearing. Blood pressure soft, but stable. He did respond to IV fluids. Patient with marked weakness in the bilateral lower extremities. He does have DP pulses obtained via doppler. CBC with leukocytosis to 20.1. Metabolic panel with evidence of patient's chronic kidney disease. Lactic acid is not elevated. Urine with evidence of infection. This was sent for culture. Blood culture sent and patient started on IV antibiotics. CT chest/abdomen/ pelvis /thoracic / lumbar spine obtained for further evaluation of infection/lower extremity weakness. Shows pulmonary nodule, pancreatic cyst, adrenal nodule. No acute findings in the thoracic or lumbar spine. Patient and family updated on workup and recommendation for admission. Spoke with hospitalist about patient and workup who accepts admission. Will place neurosurgery consult for lower extremity weakness <Devora Wallace PA-C - Last Filed: 02/11/24 22:11> Differential Diagnosis Differential diagnosis: Likely cellulitis, lower extremity edema, deep vein thrombosis of lower extremity and other (CHF, UTI, discitis, intra-abdominal infection, peripheral neuropathy, lumbar radiculopathy) <Devora Wallace PA-C - Last Filed: 02/11/24 22:11> Lab Data Attestation: I reviewed the patient's lab results. <Devora Wallace PA-C - Last Filed: 02/11/24 22:11> Result diagrams: 02/13/24 06:25 02/13/24 06:25 <Devora Wallace PA-C - Last Filed: 02/11/24 22:11> Labs: Lab Results 02/11/24 02/11/24 Range/Units 13:22 19:16 WBC 20.1 H (4.5-10.0) K/mm3 RBC 3.16 L (4.6-6.20) M/mm3 Hgb 10.4 L (14.0-18.0) g/dL Hct 30.5 L (42.0-52.0) % MCV 96.5 (80-100) fl MCH 32.9 (26-34) pg MCHC 34.1 (32-36) g/dl RDW 13.3 (11.5-14.5) % Plt Count 166 (150-375) k/mm3 MPV 11.1 H (7.4-10.4) fl Immature Gran % (Auto) 4.6 H (0-0.5) % Neut % (Auto) 82.8 H (45.5-73.1) % Lymph % (Auto) 4.9 L (18.3-44.2) % [place] % (Auto) 7.4 (2.6-8.5) % Eos % (Auto) 0.0 (0-4.4) % Baso % (Auto) 0.3 (0.2-1.2) % Lymph # (Auto) 0.99 (0.9-3.2) K/mm3 [place] # (Auto) 1.5 H (0.1-0.6) K/mm3 Eos # (Auto) 0.0 (0-0.3) K/mm3 Baso # (Auto) 0.1 (0.0-0.1) K/mm3 Abs Immat Gran (auto) 0.92 H (0.00-0.031) K/mm3 Absolute Neuts (auto) 16.6 H (1.3-6.7) K/mm3 Absolute Nucleated RBC 0.000 (0.0-0.012) K/mm3 Nucleated RBC % 0.0 (0.0-0.2) % Platelet Estimate Adequate (Adequate) [place] Cells 1+ Schistocytes None seen PT 37.9 H (11.1-14.7) Seconds INR 3.8 APTT 59.2 H (22.3-36.8) Seconds Sodium 130 L (137-145) mmol/L Potassium 4.0 (3.4-5.0) mmol/L Chloride 93 L (98-107) mmol/L Carbon Dioxide 25 (22-30) mmol/L Anion Gap 12 (4-12) mmol/L BUN 41 H D (9-20) mg/dL Creatinine 2.40 H (0.7-1.3) mg/dL Estim Creat Clear Calc 38 ml/min Estimated GFR 27 L (59 - ) Glucose 192 H (65-110) mg/dL Lactic Acid 1.3 (0.7-2.0) mmol/L Calcium 8.9 (8.4-10.2) mg/dL Total Bilirubin 1.8 H (0.2-1.3) mg/dL AST 29 (17-59) U/L ALT 23 (6-50) U/L Alkaline Phosphatase 57 (38-126) U/L Troponin I < 0.012 (0.000-0.034) ng/mL C-Reactive Protein 28.3 H (<1.0) mg/dL NT-Pro-B Natriuret Pep 1270 H (19.9-100) pg/mL Total Protein 8.0 (6.3-8.2) g/dL Albumin 3.8 (3.5-5.1) g/dL Urine Color Yellow (Yellow) Urine Appearance Turbid H (Clear) Urine pH 5.0 (5.0-9.0) Ur Specific [place] 1.012 (1.001-1.035) Urine Protein Trace (Negative) mg/dL Urine Glucose (UA) Negative (Negative) mg/dL Urine Ketones Trace H (Negative) mg/dL Ur Blood (Man) 1+ H (Negative) Urine Nitrate Negative (Negative) Urine Bilirubin Negative (Negative) Urine Urobilinogen 0.2 (<2.0) mg/dL Leukocyte Esterase Rfl 3+ H (Negative) ALBERTO/UL Urine RBC 0-2 (0-2) /hpf Urine WBC >100 H (0-3) /hpf Ur Squamous Epith Cells None seen (Few) /hpf Urine Bacteria 4+ H /hpf Urine Casts 3-5 <Devora Wallace PA-C - Last Filed: 02/11/24 22:11> Lab Results 02/11/24 02/11/24 Range/Units 13:22 19:16 WBC 20.1 H (4.5-10.0) K/mm3 RBC 3.16 L (4.6-6.20) M/mm3 Hgb 10.4 L (14.0-18.0) g/dL Hct 30.5 L (42.0-52.0) % MCV 96.5 (80-100) fl MCH 32.9 (26-34) pg MCHC 34.1 (32-36) g/dl RDW 13.3 (11.5-14.5) % Plt Count 166 (150-375) k/mm3 MPV 11.1 H (7.4-10.4) fl Immature Gran % (Auto) 4.6 H (0-0.5) % Neut % (Auto) 82.8 H (45.5-73.1) % Lymph % (Auto) 4.9 L (18.3-44.2) % [place] % (Auto) 7.4 (2.6-8.5) % Eos % (Auto) 0.0 (0-4.4) % Baso % (Auto) 0.3 (0.2-1.2) % Lymph # (Auto) 0.99 (0.9-3.2) K/mm3 [place] # (Auto) 1.5 H (0.1-0.6) K/mm3 Eos # (Auto) 0.0 (0-0.3) K/mm3 Baso # (Auto) 0.1 (0.0-0.1) K/mm3 Abs Immat Gran (auto) 0.92 H (0.00-0.031) K/mm3 Absolute Neuts (auto) 16.6 H (1.3-6.7) K/mm3 Absolute Nucleated RBC 0.000 (0.0-0.012) K/mm3 Nucleated RBC % 0.0 (0.0-0.2) % Platelet Estimate Adequate (Adequate) [place] Cells 1+ Schistocytes None seen PT 37.9 H (11.1-14.7) Seconds INR 3.8 APTT 59.2 H (22.3-36.8) Seconds Sodium 130 L (137-145) mmol/L Potassium 4.0 (3.4-5.0) mmol/L Chloride 93 L (98-107) mmol/L Carbon Dioxide 25 (22-30) mmol/L Anion Gap 12 (4-12) mmol/L BUN 41 H D (9-20) mg/dL Creatinine 2.40 H (0.7-1.3) mg/dL Estim Creat Clear Calc 38 ml/min Estimated GFR 27 L (59 - ) Glucose 192 H (65-110) mg/dL Lactic Acid 1.3 (0.7-2.0) mmol/L Calcium 8.9 (8.4-10.2) mg/dL Total Bilirubin 1.8 H (0.2-1.3) mg/dL AST 29 (17-59) U/L ALT 23 (6-50) U/L Alkaline Phosphatase 57 (38-126) U/L Troponin I < 0.012 (0.000-0.034) ng/mL C-Reactive Protein 28.3 H (<1.0) mg/dL NT-Pro-B Natriuret Pep 1270 H (19.9-100) pg/mL Total Protein 8.0 (6.3-8.2) g/dL Albumin 3.8 (3.5-5.1) g/dL Urine Color Yellow (Yellow) Urine Appearance Turbid H (Clear) Urine pH 5.0 (5.0-9.0) Ur Specific [place] 1.012 (1.001-1.035) Urine Protein Trace (Negative) mg/dL Urine Glucose (UA) Negative (Negative) mg/dL Urine Ketones Trace H (Negative) mg/dL Ur Blood (Man) 1+ H (Negative) Urine Nitrate Negative (Negative) Urine Bilirubin Negative (Negative) Urine Urobilinogen 0.2 (<2.0) mg/dL Leukocyte Esterase Rfl 3+ H (Negative) ALBERTO/UL Urine RBC 0-2 (0-2) /hpf Urine WBC >100 H (0-3) /hpf Ur Squamous Epith Cells None seen (Few) /hpf Urine Bacteria 4+ H /hpf Urine Casts 3-5 <Ann Marie Perez MD - Last Filed: 02/13/24 08:12> Imaging Data Radiologist's impression: ITS Impressions Chest X-Ray 02/11/24 13:55 Impression: Clear lungs. ITS Impressions Chest X-Ray 02/11/24 13:55 Impression: Clear lungs. Chest/Abdomen/Pelvis/Spine CT 02/11/24 16:17 IMPRESSION: Multiple pulmonary nodules measuring up to 9 mm in the right lower lobe. Recommend follow-up low-dose noncontrast CT of the chest in 3-6 months. Mediastinal lymphadenopathy. 8 mm pancreatic body cyst, recommend follow-up CT abdomen and pelvis with contrast in 2 years. 2.0 cm left adrenal nodule, probably benign, consider follow-up adrenal CT in 12 months, unless there is a history of cancer, in which case consider referral for nonemergent outpatient adrenal CT now. No acute fracture fracture or traumatic malalignment detected in the thoracic or lumbar spine. <Devora Wallace PA-C - Last Filed: 02/11/24 22:11> ECG Data EKG #1: ECG completion date: 02/11/24 <СЕРГЕЙ Shepherd Last Filed: 02/11/24 22:11> EKG Interpretation: normal rate, atrial fibrillation, RBBB, normal QT and no acute changes ( Compared to EKG ) <Devora Wallace PA-C - Last Filed: 02/11/24 22:11> Critical Care Time Critical Care Time Critical Care Time: No <СЕРГЕЙ Shepherd Last Filed: 02/11/24 22:11> Discharge Plan Discharge Clinical Impression: Acute UTI, Weakness of both lower extremities, Pulmonary nodule, Adrenal nodule, Pancreatic cyst <Devora Wallace PA-C - Last Filed: 02/11/24 22:11> Patient Disposition: Still a Patient <СЕРГЕЙ Shepherd Last Filed: 02/11/24 22:11> Condition: Stable <СЕРГЕЙ Shepherd Last Filed: 02/11/24 22:11>
[2024-02-11] MEDS: SODIUM CHLORIDE 0.9% IV 500 ML 999 ML IV CONT ×3 (16:27→19:46)
[2024-02-11 19:33] LABS: Lactic Acid Reflex 1.3 mmol/L (0.7-2.0)
[2024-02-11 20:06] LABS: CRP 28.3 mg/dL (<1.0)
[2024-02-11 22:47] LABS: Glucose Point of Care 132 mg/dl (65-105)
--- NOTE | 2024-02-11 23:05 | P.HP_ITS ---
H&P: HPI History of Present Illness Date/Time: 02/11/24 19:30 Chief Complaint: Weakness. Narrative: This is a 73-year-old male with multiple medical problems including atrial fibrillation, nonischemic cardiomyopathy, hypertension, hyperlipidemia, and insulin-dependent type 2 diabetes mellitus who presented to the emergency department via EMS for evaluation of weakness. The patient and his son provides the following history. He had a cold over a month ago and never really bounced back to baseline. He has become increasingly weak and debilitated it has been worse in the past 1 week. He has had 3 falls which he attributes to significant weakness in his legs. He has neuropathy from his diabetes which causes some issues with his balance as well. Luckily he has not sustained any injuries or head trauma. His appetite has been poor and he just generally does not feel well. For a couple of days he has really not even been able to get out of his recliner in his son has been coming over to bring him meals and help clean him up after going to the bathroom. He has been having issues with incontinence and loose stools. Today he was unable to stand up and he came in for evaluation. He denies syncope, near syncope, headache, neck ache, fever, sweats, sinus congestion, sore throat, cough, chest pain, pleuritic pain, racing heart, shortness of breath, cough, abdominal pain, back pain, dysuria, and open wounds. He denies saddle anaesthesia. In the ED: He was afebrile on arrival. Blood pressure has been as low as 96/52 but has improved with IV fluids. SpO2 is in the upper 90s on room air. He is in rate controlled atrial fibrillation. Labs were significant for WBC count of 20.1, hemoglobin 10.4, platelet 166, INR 3.8, PTT 37.9, PTT 59.2, sodium 130, chloride 93, BUN 41, creatinine 2.40, glucose 192, troponin less than 0.012, proBNP 1270, CRP 28.3, lactic acid 1.3. Urinalysis was positive for trace ketones, 1+ blood, 3+ leukocyte esterase, greater than 100 WBC, and 4+ bacteria. Chest x-ray was clear. CT of the chest, abdomen, pelvis, and spine did not show any acute findings. He was given a dose of ceftriaxone and a 1 L normal saline bolus and he is being admitted in this setting for further treatment. Review of Systems Review of Systems: 12 systems were reviewed and are negativ e except for as per HPI. [facility] Past Medical History Medical History (Updated 02/11/24 @ 23:23 by Rima Goss PA-C) Asthma Atrial fibrillation Basal cell carcinoma (BCC) of brow Chronic anticoagulation Chronic kidney disease, stage 4 (severe) Hypertension Insulin dependent type 2 diabetes mellitus Mixed hyperlipidemia Multiple myeloma poorly documented Nonischemic cardiomyopathy Urticaria Venous insufficiency Vitamin D deficiency Surgical History Surgical History (Updated 02/11/24 @ 23:24 by Rima Goss PA-C) History of arthroscopy of both knees History of basal cell carcinoma excision History of bilateral cataract extraction History of cardiac catheterization no obstructive disease per patient report History of cardioversion History of colonoscopy with polypectomy Family History Family History Father Family history of emphysema, Onset Age: 69 Social History Social History (Updated 02/11/24 @ 23:19 by Rima Goss PA-C) Social History: Surrogate medical decision maker: Jose Isaac (son) or Josy Weston (sibling). Code status: Full code. Smoking status: Never smoker Alcohol intake: current Alcohol use details: social alcohol use in moderation Substance use: never Substance use type: does not use Do You Feel Safe in your Home?: No Lack of Transportation: No Lack of Food: Never True Current Housing: I Have Housing Concerned About Future Housing: No Difficulty Paying Gas/Electric Bills: No Difficulty Paying for Meds: No Currently Unemployed: No Education: High School Diploma/GED Difficulty w/ Childcare or Family Care: No Living arrangements: alone Additional living arrangements comments: the patient lives in his own home in [place] Occupation/Education: retired Spiritual care concerns: No Meds Home Medications and Allergies Home Medications Medication Instructions Recorded Confirmed Type carvedilol 25 mg tablet 25 mg PO BID 01/30/19 02/11/24 History losartan 50 mg tablet 50 mg PO DAILY 01/30/19 02/11/24 History potassium chloride 20 mEq 20 meq PO DAILY 01/30/19 02/11/24 History tablet,extended release spironolactone 50 mg tablet 50 mg PO DAILY 01/30/19 02/11/24 History warfarin 5 mg tablet 5 mg PO DAILY 11/22/19 02/11/24 History furosemide 80 mg tablet 80 mg PO BID 05/23/23 02/11/24 History cholecalciferol (vitamin D3) 1,250 1,250 mcg PO WEEKLY #14 tabs 09/14/23 02/11/24 Rx mcg (50,000 unit) tablet semaglutide 1 mg/dose (2 mg/1.5 1 mg subcut WEEKLY 11/01/23 02/11/24 History mL) subcutaneous pen injector flash glucose sensor (FreeStyle #2 kits 11/24/23 02/11/24 Rx Germania 2 Sensor kit) pen needle, diabetic 32 gauge x #200 ea 12/13/23 02/11/24 Rx 5/32 (BD Lona 2nd Gen Pen Needle) glucagon 1 mg/0.2 mL subcutaneous 1 mg (0.2 mL) subcut ONCE #0.4 mL 01/15/24 02/11/24 Rx auto-injector (Gvoke HypoPen 2-Pack) insulin regular hum U-500 conc 500 40 unit subcut DAILY 01/15/24 02/11/24 History unit/mL(3 mL) subcut pen (Humulin R U-500 (Conc) Insulin Kwikpen) atorvastatin 80 mg tablet 80 mg PO DAILY #90 tabs 01/24/24 02/11/24 Rx mupirocin 2 % topical ointment 1 applic topical TID 7 days #30 02/06/24 02/11/24 Rx grams fenofibrate 54 mg tablet 54 mg PO DAILY 02/11/24 02/11/24 History Allergies Allergy/AdvReac Type Severity Reaction Status Date / Time No Known Allergies Allergy Verified 02/11/24 13:19 Vital Signs Vital Signs - 24 hr 02/11/24 13:05 02/11/24 13:15 02/11/24 14:31 Temperature 98.5 F Pulse Rate 83 88 77 Respiratory Rate 20 21 H 21 H Blood Pressure 96/52 L 96/52 L 98/55 L Pulse Oximetry 97 100 100 Oxygen Delivery Room Air 02/11/24 16:06 02/11/24 16:58 02/11/24 16:46 Temperature Pulse Rate 95 80 81 Respiratory Rate 22 H 23 H 23 H Blood Pressure 100/44 L 103/59 L 103/49 L Pulse Oximetry 99 100 100 Oxygen Delivery 02/11/24 17:01 02/11/24 17:31 02/11/24 17:46 Temperature Pulse Rate 85 88 84 Respiratory Rate 17 21 H 18 Blood Pressure 106/52 L 104/58 L 98/46 L Pulse Oximetry 98 100 94 Oxygen Delivery 02/11/24 18:01 02/11/24 18:16 02/11/24 18:31 Temperature Pulse Rate 79 84 81 Respiratory Rate 15 21 H 24 H Blood Pressure 96/47 L 102/45 L 105/52 L Pulse Oximetry 99 100 99 Oxygen Delivery 02/11/24 21:42 02/11/24 21:43 02/11/24 21:49 Temperature Pulse Rate 91 91 Respiratory Rate 22 H 22 H Blood Pressure 117/43 L 103/62 103/62 Pulse Oximetry 98 98 Oxygen Delivery Exam Narrative: General: Chronically ill-appearing male in the semi-Cat position in bed. Weight: 130.1 kg. BMI: 38.1. HEENT: Normocephalic, atraumatic. PERRL, EOMI. Sclera anicteric. Tacky mucous membranes. Neck: Supple. No JVD or lymphadenopathy. Respiratory: Respirations are nonlabored and lungs are clear to auscultation. Cardiovascular: Irregularly irregular rate and rhythm. Gastrointestinal: Abdomen is soft, protuberant, nontender, and nondistended with positive bowel sounds. Skin: Warm and dry. Generalized pallor. Extremities: No cyanosis or clubbing. Legs are large with 2+ pitting edema. Chronic skin changes of bilateral lower legs consistent with venous stasis dermatitis. There couple of shallow ulcerations without evidence of infection. Diminished pulses in the feet. Neurological: Alert and oriented. Cranial nerves 2-12 are grossly intact. Speech is clear. No facial asymmetry. No pronator drift. He can barely lift his legs off the bed 1 in before letting them fall. Right foot pushes seems weaker when compared to left. Hand airplane dispatcher are equal bilaterally. No focal strength deficits in the upper extremities. Sensation diminished in the lower extremities. No saddle anesthesia. Psychiatric: Pleasant and cooperative with appropriate mood and flat affect. H&P: Results Labs Labs: Short CBC 02/11/24 Range/Units 13:22 WBC 20.1 H (4.5-10.0) K/mm3 Hgb 10.4 L (14.0-18.0) g/dL Hct 30.5 L (42.0-52.0) % Plt Count 166 (150-375) k/mm3 BMP 02/11/24 13:22 Sodium 130 L Potassium 4.0 Chloride 93 L Carbon Dioxide 25 BUN 41 H D Creatinine 2.40 H Glucose 192 H Calcium 8.9 Cardiac Enzymes 02/11/24 Range/Units 13:22 Troponin I < 0.012 (0.000-0.034) ng/mL Liver Function 02/11/24 Range/Units 13:22 Total Bilirubin 1.8 H (0.2-1.3) mg/dL AST 29 (17-59) U/L ALT 23 (6-50) U/L Alkaline Phosphatase 57 (38-126) U/L Albumin 3.8 (3.5-5.1) g/dL Urine 02/11/24 Range/Units 13:22 Urine Color Yellow (Yellow) Urine Appearance Turbid H (Clear) Urine pH 5.0 (5.0-9.0) Ur Specific [place] 1.012 (1.001-1.035) Urine Protein Trace (Negative) mg/dL Urine Glucose (UA) Negative (Negative) mg/dL Imaging Chest X-Ray 02/11/24 13:55 Impression: Clear lungs. Chest/Abdomen/Pelvis/Spine CT 02/11/24 16:17 IMPRESSION: Multiple pulmonary nodules measuring up to 9 mm in the right lower lobe. Recommend follow-up low-dose noncontrast CT of the chest in 3-6 months. Mediastinal lymphadenopathy. 8 mm pancreatic body cyst, recommend follow-up CT abdomen and pelvis with contrast in 2 years. 2.0 cm left adrenal nodule, probably benign, consider follow-up adrenal CT in 12 months, unless there is a history of cancer, in which case consider referral for nonemergent outpatient adrenal CT now. No acute fracture fracture or traumatic malalignment detected in the thoracic or lumbar spine. Assessment and Plan Assessment and plan (1) Sepsis: Code(s): A41.9 - Sepsis, unspecified organism Status: Acute (2) Urinary tract infection: Code(s): N39.0 - Urinary tract infection, site not specified Status: Acute (3) Mild dehydration: Code(s): E86.0 - Dehydration Status: Acute (4) Weakness of both lower extremities: Code(s): R29.898 - Other symptoms and signs involving the musculoskeletal system Status: Acute (5) Chronic kidney disease, stage 4 (severe): Code(s): N18.4 - Chronic kidney disease, stage 4 (severe) Status: Acute (6) Nonischemic cardiomyopathy: Code(s): I42.8 - Other cardiomyopathies Status: Acute (7) Hypertension: Code(s): I10 - Essential (primary) hypertension Status: Acute (8) Insulin dependent type 2 diabetes mellitus: Code(s): E11.9 - Type 2 diabetes mellitus without complications; Z79.4 - care home (current) use of insulin Status: Acute (9) Atrial fibrillation: Code(s): I48.91 - Unspecified atrial fibrillation Status: Acute (10) Chronic anticoagulation: Code(s): Z79.01 - care home (current) use of anticoagulants Status: Acute (11) Pulmonary nodule: Code(s): R91.1 - Solitary pulmonary nodule Status: Acute (12) Adrenal nodule: Code(s): E27.9 - Disorder of adrenal gland, unspecified Status: Acute (13) Pancreatic cyst: Code(s): K86.2 - Cyst of pancreas Status: Acute Plan The patient presented to the emergency department for evaluation of progressive weakness as detailed in HPI. Labs, imaging, EKG, and all reports were personally reviewed. This does not seem to be in acute problems and more an ongoing issue to the point where the patient is now not able to even stand on his own although that is likely precipitated by his urinary tract infection. He technically meets sepsis criteria with soft blood pressures, leukocytosis, and acute on chronic kidney failure in setting of infection. Lactic acid level is within normal limits and blood pressures have improved with IV fluids. Blood cultures are pending. Continue ceftriaxone pending urine culture. He looks dry on exam and will be cautiously hydrated overnight with close monitoring of volume status, renal function, and electrolytes. Hold diuretics and antihypertensives for now; this will need to be readdressed once he is adequately hydrated so he can be s tarted back on guideline directed medical therapy for his nonischemic cardiomyopathy. His atrial fibrillation is rate controlled on carvedilol which will be continued with parameters. Hold this evening dose of warfarin as his INR is therapeutic and monitor daily. He has some degenerative disc disease, facet arthropathy, and moderate neural foraminal and central canal narrowing in some places and neurosurgery was consulted by the ED provider. PT/OT has also been consulted. He will need to go to a rehab facility before returning home as he will just not be safe to be discharged alone. Continue basal insulin and check hemoglobin A1c. Initiate sliding scale insulin, Accu-Cheks, and hypoglycemic protocol. The rest of his home medications will be reviewed and resumed as appropriate. Incidental findings on CT scan including right lower lobe pulmonary nodules, 8 mm pancreatic body cyst, and 2 cm left adrenal nodule should be followed up as an outpatient per the radiologist recommendations. Findings and treatment plan were discussed with the patient and his son who was at bedside. Questions were solicited and answered to satisfaction. The patient's medical management will be taken over by the hospitalist team in a.m. Quality VTE Prophylaxis VTE prophylaxis: pharmacologic ordered (on warfarin) The patient has been admitted under observation status. Hospitalist MIPS Advance Care Plan I have confirmed that the patient's Advanced Care Plan is present, code status is documented, or surrogate decision maker is listed in patient medical record.: Yes Medication Reconciliation I have utilized all available resources to obtain, update and review the patients current medications (includes all prescriptions, OTC, herbals, cannabis, and nutritional supplements).: Yes
[2024-02-12 00:19] LABS: Hemoglobin A1C 6.5 % (<5.7)
[2024-02-12 01:12] VITALS: BMI 37.8
[2024-02-12 06:00] VITALS: BP 106/56; PULSE 93; RESP 18; TEMP 37; O2SAT 98
[2024-02-12 06:09] LABS: Hematocrit 29.2 % (42.0-52.0); Hemoglobin 9.7 g/dL (14.0-18.0); Mean Corpuscular HGB Conc 33.2 g/dl (32-36); Mean Corpuscular Hemoglobin 32.1 pg (26-34); Mean Corpuscular Volume 96.7 fl (80-100); Mean Platelet Volume 11.2 fl (7.4-10.4); Platelet Count Result 171 k/mm3 (150-375); Red Blood Count 3.02 M/mm3 (4.6-6.20); Red Cell Distribution Width 13.4 % (11.5-14.5); White Blood Count 14.7 K/mm3 (4.5-10.0)
[2024-02-12 06:30] LABS: INR 4.9; Prothrombin Time 46.5 Seconds (11.1-14.7)
[2024-02-12 06:39] LABS: Alanine Aminotransferase 27 U/L (6-50); Albumin Level 3.4 g/dL (3.5-5.1); Alkaline Phosphatase 76 U/L (38-126); Anion Gap 12 mmol/L (4-12); Aspartate Amino Transferase 45 U/L (17-59); Bilirubin,Total 0.8 mg/dL (0.2-1.3); Blood Urea Nitrogen 43 mg/dL (9-20); Calcium 8.5 mg/dL (8.4-10.2); Carbon Dioxide 23 mmol/L (22-30); Chloride 98 mmol/L (98-107); Estimated CRCL calculation 38 ml/min; Estimated Glomerular Filt Rate 28; Glucose 162 mg/dL (65-110); Potassium 3.7 mmol/L (3.4-5.0); Sodium 133 mmol/L (137-145)
[2024-02-12 07:35] LABS: Glucose Point of Care 163 mg/dl (65-105)
[2024-02-12] MEDS: ATORVASTATIN 40 MG TABLET 80 MG PO (08:31)
[2024-02-12] MEDS: PSYLLIUM POWDER PACKET 1 PACKET PO (08:32)
[2024-02-12 09:24] VITALS: PULSE 89
[2024-02-12] MEDS: ERGOCALCIFEROL 50,000 UNITS CAPSULE 50000 UNITS PO (09:24)
[2024-02-12] MEDS: carvediloL 25 MG TABLET PO (09:24)
--- NOTE | 2024-02-12 10:08 | PHAR ---
Pharmacy verified home med: * USE FROM HOME * Semaglutide (Ozempic) 1 mg/dose Use pen to inject 1 mg dose under the skin (sub-q) once weekly on Mondays
[2024-02-12] MEDS: INSULIN ASPART (*BKC) 100 UNITS/ML SUB-Q ×2 (11:21→16:46)
[2024-02-12 11:22] LABS: Glucose Point of Care 236 mg/dl (65-105)
[2024-02-12 12:00] VITALS: BMI 36.6
[2024-02-12] MEDS: EUCERIN CREAM 120 GM JAR 1 APPLIC TOPICAL (12:43)
[2024-02-12 13:37] VITALS: BMI 36.6
[2024-02-12 13:56] VITALS: BP 98/50; PULSE 80; RESP 18; TEMP 36.8; O2SAT 98
--- NOTE | 2024-02-12 14:05 | PM.IMPN ---
Progress Note: A&P Assessment and Plan (1) Sepsis: Code(s): A41.9 - Sepsis, unspecified organism Status: Acute (2) Urinary tract infection: Code(s): N39.0 - Urinary tract infection, site not specified Status: Acute Assessment and Plan: This does not seem to be in acute problems and more an ongoing issue to the point where the patient is now not able to even stand on his own although that is likely precipitated by his urinary tract infection. He technically meets sepsis criteria with soft blood pressures, leukocytosis, and acute on chronic kidney failure in setting of infection. Lactic acid level is within normal limits and blood pressures have improved with IV fluids. Blood cultures are pending. Continue ceftriaxone pending urine culture. (3) Mild dehydration: Code(s): E86.0 - Dehydration Status: Acute (4) Weakness of both lower extremities: Code(s): R29.898 - Other symptoms and signs involving the musculoskeletal system Status: Acute Assessment and Plan: -neurology consulted pt/ot (5) Chronic kidney disease, stage 4 (severe): Code(s): N18.4 - Chronic kidney disease, stage 4 (severe) Status: Acute (6) Nonischemic cardiomyopathy: Code(s): I42.8 - Other cardiomyopathies Status: Acute Assessment and Plan: He looks dry on exam and will be cautiously hydrated overnight with close monitoring of volume status, renal function, and electrolytes. Hold diuretics and antihypertensives for now; this will need to be readdressed once he is adequately hydrated so he can be started back on guideline directed medical therapy for his nonischemic cardiomyopathy. (7) Hypertension: Code(s): I10 - Essential (primary) hypertension Status: Acute (8) Insulin dependent type 2 diabetes mellitus: Code(s): E11.9 - Type 2 diabetes mellitus without complications; Z79.4 - half-way (current) use of insulin Status: Acute Assessment and Plan: Continue basal insulin and check hemoglobin A1c. Initiate sliding scale insulin, Accu-Cheks, and hypoglycemic protocol -hold home semiglutide -discussed it could be a reason for his diarrhea- needs to discuss with supervisor nutritional yeast (9) Atrial fibrillation: Code(s): I48.91 - Unspecified atrial fibrillation Status: Acute Assessment and Plan: His atrial fibrillation is rate controlled on carvedilol which will be continued with parameters. Hold this evening dose of warfarin as his INR is therapeutic and monitor daily. 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 Status: Acute Assessment and Plan: see #9 (11) Pulmonary nodule: Code(s): R91.1 - Solitary pulmonary nodule Status: Acute (12) Adrenal nodule: Code(s): E27.9 - Disorder of adrenal gland, unspecified Status: Acute (13) Pancreatic cyst: Code(s): K86.2 - Cyst of pancreas Status: Acute Assessment and Plan: will need f/u outpt (14) Diarrhea: Code(s): R19.7 - Diarrhea, unspecified Status: Acute Assessment and Plan: - no recent hospitalization - no recent antibiotics - will order c diff and if negative-will order antidiarrheal meds - discussed potential correlation between diarrhea and semigluitde - will hold med and see if diarrhea improves Plan The patient presented to the emergency department for evaluation of progressive weakness as detailed in HPI. Labs, imaging, EKG, and all reports were personally reviewed. He has some degenerative disc disease, facet arthropathy, and moderate neural foraminal and central canal narrowing in some places and neurosurgery was consulted by the ED provider. PT/OT has also been consulted. He will need to go to a rehab facility before returning home as he will just not be safe to be discharged alone. . The rest of his home medications will be reviewed and resumed as appropriate. Incidental findings on CT scan including right lower lobe pulmonary nodules, 8 mm pancreatic body cyst, and 2 cm left adrenal nodule should be followed up as an outpatient per the radiologist recommendations. Findings and treatment plan were discussed with the patient and his son who was at bedside. Time Spent With Patient Time with patient: Greater than 35 minutes Subjective Date/time seen: 02/12/24 14:05 Review of Systems Review of Systems: 12 systems were reviewed and are negative except for as per HPI. Exam Narrative: General: Chronically ill-appearing male in the semi-Cat position in bed. Weight: 130.1 kg. BMI: 38.1. HEENT: Normocephalic, atraumatic. PERRL, EOMI. Sclera anicteric. Tacky mucous membranes. Neck: Supple. No JVD or lymphadenopathy. Respiratory: Respirations are nonlabored and lungs are clear to auscultation. Cardiovascular: Irregularly irregular rate and rhythm. Gastrointestinal: Abdomen is soft, protuberant, nontender, and nondistended with positive bowel sounds. Skin: Warm and dry. Generalized pallor. Extremities: No cyanosis or clubbing. Legs are large with 2+ pitting edema. Chronic skin changes of bilateral lower legs consistent with venous stasis dermatitis. There couple of shallow ulcerations without evidence of infection. Diminished pulses in the feet. Neurological: Alert and oriented. Cranial nerves 2-12 are grossly intact. Speech is clear. No facial asymmetry. No pronator drift. He can barely lift his legs off the bed 1 in before letting them fall. Right foot pushes seems weaker when compared to left. Hand staffing consultant are equal bilaterally. No focal strength deficits in the upper extremities. Sensation diminished in the lower extremities. No saddle anesthesia. Psychiatric: Pleasant and cooperative with appropriate mood and flat affect. Objective Data Vital Signs Vital Signs: Vital Signs - 24 hr 02/11/24 14:31 02/11/24 16:06 02/11/24 16:58 Temperature Pulse Rate 77 95 80 Respiratory Rate 21 H 22 H 23 H Blood Pressure 98/55 L 100/44 L 103/59 L Pulse Oximetry 100 99 100 Oxygen Delivery 02/11/24 16:46 02/11/24 17:01 02/11/24 17:31 Temperature Pulse Rate 81 85 88 Respiratory Rate 23 H 17 21 H Blood Pressure 103/49 L 106/52 L 104/58 L Pulse Oximetry 100 98 100 Oxygen Delivery 02/11/24 17:46 02/11/24 18:01 02/11/24 18:16 Temperature Pulse Rate 84 79 84 Respiratory Rate 18 15 21 H Blood Pressure 98/46 L 96/47 L 102/45 L Pulse Oximetry 94 99 100 Oxygen Delivery 02/11/24 18:31 02/11/24 21:42 02/11/24 21:43 Temperature Pulse Rate 81 91 Respiratory Rate 24 H 22 H Blood Pressure 105/52 L 117/43 L 103/62 Pulse Oximetry 99 98 Oxygen Delivery 02/11/24 22:30 02/11/24 22:30 02/12/24 06:00 Temperature 98.2 F 98.6 F Pulse Rate 84 93 Respiratory Rate 16 18 Blood Pressure 110/64 106/56 L Pulse Oximetry 100 98 Oxygen Delivery Room Air 02/12/24 09:24 02/12/24 08:00 02/12/24 13:56 Temperature 98.3 F Pulse Rate 89 80 Respiratory Rate 18 Blood Pressure 98/50 L Pulse Oximetry 98 Oxygen Delivery Room Air 02/11/24 21:49 Temperature Pulse Rate 91 Respiratory Rate 22 H Blood Pressure 103/62 Pulse Oximetry 98 Oxygen Delivery Intake/Output Intake/Output: Intake & Output 02/09/24 02/10/24 02/11/24 02/12/24 23:59 23:59 23:59 23:59 Intake Total 1550 870 Output Total 550 Balance 1550 320 Meds/Results Medications: Active Medications Generic Name Dose Route Start Last Admin Trade Name Freq PRN Reason Stop Dose Admin Acetaminophen 650 mg 02/11/24 23:31 Acetaminophen 325 Mg Tablet PO Q6H PRN Mild Pain (1-3) or Fever Atorvastatin Calcium 80 mg 02/12/24 09:00 02/12/24 08:31 Atorvastatin 40 Mg Tablet PO 80 mg DAILY CARMELA Administration Carvedilol 25 mg 02/12/24 09:00 02/12/24 09:24 Carvedilol 25 Mg Tablet PO 25 mg Q12HR [facility] Administration Dextrose 12.5 gm 02/11/24 23:31 Dextrose 50% 25 Gm/50 Ml Syringe IV PUSH PRN PRN Hypoglycemia Protocol Ergocalciferol 50,000 units 02/12/24 09:00 02/12/24 09:24 Ergocalciferol 50,000 Units Capsule PO 50,000 units Mo@0900 [facility] Administration Glucagon 1 mg 02/11/24 23:31 Glucagon For Inj 1 Mg Vial IM PRN PRN Hypoglycemia Protocol Glucose 15 gm 02/11/24 23:31 Glucose Oral Gel 15 Gm Of Glucse In 37.5 Gm Tube PO PRN PRN Hypoglycemia Protocol Ceftriaxone Sodium 1 gm in 50 mls @ 100 mls/hr 02/12/24 16:00 Rocephin 1 Gm/Ns 50 Ml IVPB Q24H [facility]MELA Dextrose 1,000 mls @ 100 mls/hr 02/11/24 23:31 Dextrose 5% 1,000 Ml IVPB PRN PRN Hypoglycemia Protocol Insulin Aspart 1 - 3 units 02/11/24 21:00 02/12/24 00:52 Insulin Aspart (*Bkc) 100 Units/Ml SUB-Q Not Given HS [facility] Protocol Insulin Aspart 3 - 6 units 02/12/24 08:00 02/12/24 11:21 Insulin Aspart (*Bkc) 100 Units/Ml SUB-Q 3 units TIDWM [facility] Administration Protocol Multi-Ingred Cream/Lotion/Oil/Oint 1 applic 02/12/24 09:00 02/12/24 12:43 Eucerin Cream 120 Gm Jar TOPICAL 1 applic DAILY [facility] Administration Psyllium Hydrophilic Mucilloid 1 packet 02/12/24 09:00 02/12/24 08:32 Psyllium Powder Packet PO 1 packet QAM [facility] Administration Warfarin Sodium 5 mg 02/13/24 17:00 Warfarin (*Pbkc) 5 Mg Tablet PO DAILY@1700 [facility] Radiology Results: ITS Impressions Chest X-Ray 02/11/24 13:55 Impression: Clear lungs. Chest/Abdomen/Pelvis/Spine CT 02/11/24 16:17 IMPRESSION: Multiple pulmonary nodules measuring up to 9 mm in the right lower lobe. Recommend follow-up low-dose noncontrast CT of the chest in 3-6 months. Mediastinal lymphadenopathy. 8 mm pancreatic body cyst, recommend follow-up CT abdomen and pelvis with contrast in 2 years. 2.0 cm left adrenal nodule, probably benign, consider follow-up adrenal CT in 12 months, unless there is a history of cancer, in which case consider referral for nonemergent outpatient adrenal CT now. No acute fracture fracture or traumatic malalignment detected in the thoracic or lumbar spine. Labs Labs: Laboratory Results - last 24 hr 02/11/24 02/11/24 02/11/24 19:16 22:42 23:48 WBC RBC Hgb Hct MCV MCH MCHC RDW Plt Count MPV PT INR Sodium Potassium Chloride Carbon Dioxide Anion Gap BUN Creatinine Estim Creat Clear Calc Estimated GFR Glucose POC Capillary Glucose 132 H Hemoglobin A1c 6.5 H Lactic Acid 1.3 Calcium Magnesium Total Bilirubin AST ALT Alkaline Phosphatase C-Reactive Protein 28.3 H Total Protein Albumin TSH (Reflex) 02/12/24 02/12/24 02/12/24 05:53 07:32 11:18 WBC 14.7 H RBC 3.02 L Hgb 9.7 L Hct 29.2 L MCV 96.7 MCH 32.1 MCHC 33.2 RDW 13.4 Plt Count 171 MPV 11.2 H PT 46.5 H D INR 4.9 Sodium 133 L Potassium 3.7 Chloride 98 Carbon Dioxide 23 Anion Gap 12 BUN 43 H Creatinine 2.30 H Estim Creat Clear Calc 38 Estimated GFR 28 L Glucose 162 H POC Capillary Glucose 163 H 236 H Hemoglobin A1c Lactic Acid Calcium 8.5 Magnesium 2.0 Total Bilirubin 0.8 AST 45 ALT 27 Alkaline Phosphatase 76 C-Reactive Protein Total Protein 7.0 Albumin 3.4 L TSH (Reflex) 1.060 Quality VTE Prophylaxis VTE prophylaxis: pharmacologic ordered (on warfarin)
--- NOTE | 2024-02-12 14:08 | PCPTNOTE ---
Attempted PT evaluation. RN recommended waiting until after MRI to see pt. Will follow.
[2024-02-12 16:32] LABS: Glucose Point of Care 205 mg/dl (65-105)
[2024-02-12 20:45] VITALS: BP 109/56; PULSE 78; RESP 20; TEMP 36.8; O2SAT 100
[2024-02-12 20:49] LABS: Glucose Point of Care 154 mg/dl (65-105)
[2024-02-13 05:05] VITALS: BP 112/69; PULSE 90; RESP 16; TEMP 36; O2SAT 98
[2024-02-13 06:56] LABS: INR 4.7; Prothrombin Time 44.3 Seconds (11.1-14.7)
[2024-02-13 07:33] LABS: Glucose Point of Care 132 mg/dl (65-105)
--- NOTE | 2024-02-13 07:41 | PM.IMPN ---
Progress Note: A&P Assessment and Plan (1) Sepsis: Code(s): A41.9 - Sepsis, unspecified organism Status: Acute Assessment and Plan: IV antibiotics IV fluids lactic acid-wnl (2) Urinary tract infection: Code(s): N39.0 - Urinary tract infection, site not specified Status: Acute Assessment and Plan: Lactic acid level is within normal limits and blood pressures have improved with IV fluids. Blood cultures are pending. Continue ceftriaxone pending urine culture. (3) Mild dehydration: Code(s): E86.0 - Dehydration Status: Acute Assessment and Plan: iv fluids- switch to PO once po intake is adequate (4) Weakness of both lower extremities: Code(s): R29.898 - Other symptoms and signs involving the musculoskeletal system Status: Acute Assessment and Plan: -worsen in the last few weeks to the points where he could not move much at all -neurology consulted MRI completed today, 02/12 pt/ot ordered (5) Chronic kidney disease, stage 4 (severe): Code(s): N18.4 - Chronic kidney disease, stage 4 (severe) Status: Acute (6) Nonischemic cardiomyopathy: Code(s): I42.8 - Other cardiomyopathies Status: Acute Assessment and Plan: He looks dry on exam and will be cautiously hydrated overnight with close monitoring of volume status, renal function, and electrolytes (7) Hypertension: Code(s): I10 - Essential (primary) hypertension Status: Acute (8) Insulin dependent type 2 diabetes mellitus: Code(s): E11.9 - Type 2 diabetes mellitus without complications; 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 Initiate sliding scale insulin, Accu-Cheks, and hypoglycemic protocol -hold home semiglutide -discussed it could be a reason for his diarrhea- needs to discuss with office machine technician (9) Atrial fibrillation: Code(s): I48.91 - Unspecified atrial fibrillation Status: Acute Assessment and Plan: His atrial fibrillation is rate controlled on carvedilol which will be continued with parameters. Hold this evening dose of warfarin as his INR is therapeutic and monitor daily. 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 Status: Acute Assessment and Plan: see #9 (11) Pulmonary nodule: Code(s): R91.1 - Solitary pulmonary nodule Status: Acute (12) Adrenal nodule: Code(s): E27.9 - Disorder of adrenal gland, unspecified Status: Acute (13) Pancreatic cyst: Code(s): K86.2 - Cyst of pancreas Status: Acute Assessment and Plan: will need f/u outpt (14) Diarrhea: Code(s): R19.7 - Diarrhea, unspecified Status: Acute Assessment and Plan: - no recent hospitalization - no recent antibiotics - will order c diff and if negative-will order antidiarrheal meds - discussed potential correlation between diarrhea and semigluitde - will hold med and see if diarrhea improves Plan The patient presented to the emergency department for evaluation of progressive weakness as detailed in HPI. Labs, imaging, EKG, and all reports were personally reviewed. He has some degenerative disc disease, facet arthropathy, and moderate neural foraminal and central canal narrowing in some places and neurosurgery was consulted by the ED provider. PT/OT has also been consulted. He will need to go to a rehab facility before returning home as he will just not be safe to be discharged alone. . The rest of his home medications will be reviewed and resumed as appropriate. Incidental findings on CT scan including right lower lobe pulmonary nodules, 8 mm pancreatic body cyst, and 2 cm left adrenal nodule should be followed up as an outpatient per the radiologist recommendations. Time Spent With Patient Time with patient: Greater than 35 minutes Subjective Date/time seen: 02/13/24 07:41 Interval history: pt is seen and examined today. Cdiff was ordered yesterday- but he stopped having diarrea yesterday- so it was not obtained. He brought his home ozempic but we are holding it as it could be a reason for his diarrhea. Eating/drinking ok. PT/OT is ordered. Neurology consulted. MRI is done. Anticipate discharge to rehab in the next few days in stable from neurology standpoint. Review of Systems Review of Systems: 12 systems were reviewed and are negative except for as per HPI. Exam Narrative: General: in bed, pleasant, clam. Weight: 130.1 kg. BMI: 38.1. HEENT: Normocephalic, atraumatic. PERRL, EOMI. Sclera anicteric. Tacky mucous membranes. Neck: Supple. No JVD or lymphadenopathy. Respiratory: Respirations are nonlabored and lungs are clear to auscultation. Cardiovascular: Irregularly irregular rate and rhythm. Gastrointestinal: Abdomen is soft, protuberant, nontender, and nondistended with positive bowel sounds. Skin: Warm and dry. Generalized pallor. Extremities: No cyanosis or clubbing. Legs are large with 2+ pitting edema. Chronic skin changes of bilateral lower legs consistent with venous stasis dermatitis. There couple of shallow ulcerations without evidence of infection. Diminished pulses in the feet. Neurological: Alert and oriented. Cranial nerves 2-12 are grossly intact. Speech is clear. No facial asymmetry. No pronator drift. He can barely lift his legs off the bed 1 in before letting them fall. Right foot pushes seems weaker when compared to left. Hand radio electronics technician are equal bilaterally. No focal strength deficits in the upper extremities. Sensation diminished in the lower extremities. No saddle anesthesia. Psychiatric: Pleasant and cooperative with appropriate mood and flat affect. Const: General: comfortable Objective Data Vital Signs Vital Signs: Vital Signs - 24 hr 02/12/24 09:24 02/12/24 08:00 02/12/24 13:56 Temperature 98.3 F Pulse Rate 89 80 Respiratory Rate 18 Blood Pressure 98/50 L Pulse Oximetry 98 Oxygen Delivery Room Air 02/12/24 20:45 02/12/24 20:00 02/13/24 05:05 Temperature 98.2 F 96.8 F L Pulse Rate 78 90 Respiratory Rate 20 16 Blood Pressure 109/56 L 112/69 Pulse Oximetry 100 98 Oxygen Delivery Room Air Intake/Output Intake/Output: Intake & Output 02/10/24 02/11/24 02/12/24 02/13/24 23:59 23:59 23:59 23:59 Intake Total 1550 1470 150 Output Total 1350 700 Balance 1550 120 -550 Meds/Results Medications: Active Medications Generic Name Dose Route Start Last Admin Trade Name Freq PRN Reason Stop Dose Admin Acetaminophen 650 mg 02/11/24 23:31 Acetaminophen 325 Mg Tablet PO Q6H PRN Mild Pain (1-3) or Fever Atorvastatin Calcium 80 mg 02/12/24 09:00 02/12/24 08:31 Atorvastatin 40 Mg Tablet PO 80 mg DAILY CARMELA Administration Carvedilol 12.5 mg 02/12/24 21:00 02/12/24 21:00 Carvedilol 12.5 Mg Tablet PO Not Given Q12HR [facility] Dextrose 12.5 gm 02/11/24 23:31 Dextrose 50% 25 Gm/50 Ml Syringe IV PUSH PRN PRN Hypoglycemia Protocol Ergocalciferol 50,000 units 02/12/24 09:00 02/12/24 09:24 Ergocalciferol 50,000 Units Capsule PO 50,000 units Mo@0900 [facility] Administration Glucagon 1 mg 02/11/24 23:31 Glucagon For Inj 1 Mg Vial IM PRN PRN Hypoglycemia Protocol Glucose 15 gm 02/11/24 23:31 Glucose Oral Gel 15 Gm Of Glucse In 37.5 Gm Tube PO PRN PRN Hypoglycemia Protocol Ceftriaxone Sodium 1 gm in 50 mls @ 100 mls/hr 02/12/24 16:00 02/12/24 15:22 Rocephin 1 Gm/Ns 50 Ml IVPB 100 mls/hr Q24H [facility] Administration Dextrose 1,000 mls @ 100 mls/hr 02/11/24 23:31 Dextrose 5% 1,000 Ml IVPB PRN PRN Hypoglycemia Protocol Insulin Aspart 1 - 3 units 02/11/24 21:00 02/12/24 21:00 Insulin Aspart (*Bkc) 100 Units/Ml SUB-Q Not Given HS [facility] Protocol Insulin Aspart 3 - 6 units 02/12/24 08:00 02/12/24 16:46 Insulin Aspart (*Bkc) 100 Units/Ml SUB-Q 3 units TIDWM [facility] Administration Protocol Multi-Ingred Cream/Lotion/Oil/Oint 1 applic 02/12/24 09:00 02/12/24 12:43 Eucerin Cream 120 Gm Jar TOPICAL 1 applic DAILY [facility] Administration Psyllium Hydrophilic Mucilloid 1 packet 02/12/24 09:00 02/12/24 08:32 Psyllium Powder Packet PO 1 packet QAM [facility] Administration Warfarin Sodium 5 mg 02/13/24 17:00 Warfarin (*Pbkc) 5 Mg Tablet PO DAILY@1700 [facility] Radiology Results: ITS Impressions Chest X-Ray 02/11/24 13:55 Impression: Clear lungs. Chest/Abdomen/Pelvis/Spine CT 02/11/24 16:17 IMPRESSION: Multiple pulmonary nodules measuring up to 9 mm in the right lower lobe. Recommend follow-up low-dose noncontrast CT of the chest in 3-6 months. Mediastinal lymphadenopathy. 8 mm pancreatic body cyst, recommend follow-up CT abdomen and pelvis with contrast in 2 years. 2.0 cm left adrenal nodule, probably benign, consider follow-up adrenal CT in 12 months, unless there is a history of cancer, in which case consider referral for nonemergent outpatient adrenal CT now. No acute fracture fracture or traumatic malalignment detected in the thoracic or lumbar spine. Labs Labs: Laboratory Results - last 24 hr 02/12/24 02/12/24 02/12/24 05:53 11:18 16:27 PT INR POC Capillary Glucose 236 H 205 H TSH (Reflex) 1.060 02/12/24 02/13/24 02/13/24 20:46 06:28 07:30 PT 44.3 H INR 4.7 POC Capillary Glucose 154 H 132 H TSH (Reflex) Quality VTE Prophylaxis VTE prophylaxis: pharmacologic ordered (on warfarin)
[2024-02-13 07:53] LABS: Hematocrit 28.4 % (42.0-52.0); Hemoglobin 9.6 g/dL (14.0-18.0); Mean Corpuscular HGB Conc 33.8 g/dl (32-36); Mean Corpuscular Hemoglobin 32.4 pg (26-34); Mean Corpuscular Volume 95.9 fl (80-100); Mean Platelet Volume 11.4 fl (7.4-10.4); Platelet Count Result 195 k/mm3 (150-375); Red Blood Count 2.96 M/mm3 (4.6-6.20); Red Cell Distribution Width 13.6 % (11.5-14.5); White Blood Count 9.1 K/mm3 (4.5-10.0)
[2024-02-13 08:06] LABS: Anion Gap 9 mmol/L (4-12); Blood Urea Nitrogen 38 mg/dL (9-20); Calcium 8.8 mg/dL (8.4-10.2); Carbon Dioxide 25 mmol/L (22-30); Chloride 101 mmol/L (98-107); Estimated CRCL calculation 49 ml/min; Estimated Glomerular Filt Rate 37; Glucose 122 mg/dL (65-110); Potassium 3.7 mmol/L (3.4-5.0); Sodium 135 mmol/L (137-145)
[2024-02-13 08:19] VITALS: PULSE 90
[2024-02-13] MEDS: carvediloL 12.5 MG TABLET PO ×2 (08:19→21:16)
[2024-02-13] MEDS: ATORVASTATIN 40 MG TABLET 80 MG PO (08:20)
[2024-02-13] MEDS: EUCERIN CREAM 120 GM JAR 1 APPLIC TOPICAL (08:21)
[2024-02-13 11:16] LABS: Glucose Point of Care 182 mg/dl (65-105)
[2024-02-13 13:20] LABS: Toxigenic C. Diff NEGATIVE (NEGATIVE)
[2024-02-13 14:00] VITALS: BP 106/58; PULSE 78; RESP 17; TEMP 36.6; O2SAT 100
[2024-02-13 16:29] LABS: Glucose Point of Care 186 mg/dl (65-105)
[2024-02-13 20:05] VITALS: BP 112/58; PULSE 84; RESP 18; TEMP 36.1; O2SAT 100
[2024-02-13] MEDS: INSULIN ASPART (*BKC) 100 UNITS/ML SUB-Q (21:15)
[2024-02-13 21:42] LABS: Glucose Point of Care 226 mg/dl (65-105)
[2024-02-13] MEDS: LOPERAMIDE HCL 2 MG CAPSULE 4 MG PO (22:08)
[2024-02-14 06:00] VITALS: BP 104/54; PULSE 73; RESP 20; TEMP 35.9; O2SAT 98
[2024-02-14 06:29] LABS: Hematocrit 28.6 % (42.0-52.0); Hemoglobin 9.4 g/dL (14.0-18.0); Mean Corpuscular HGB Conc 32.9 g/dl (32-36); Mean Corpuscular Hemoglobin 31.6 pg (26-34); Mean Corpuscular Volume 96.3 fl (80-100); Mean Platelet Volume 10.7 fl (7.4-10.4); Platelet Count Result 209 k/mm3 (150-375); Red Blood Count 2.97 M/mm3 (4.6-6.20); Red Cell Distribution Width 13.8 % (11.5-14.5); White Blood Count 7.7 K/mm3 (4.5-10.0)
[2024-02-14 06:35] LABS: INR 3.7
[2024-02-14 06:39] LABS: Anion Gap 7 mmol/L (4-12); Blood Urea Nitrogen 39 mg/dL (9-20); Calcium 9.1 mg/dL (8.4-10.2); Carbon Dioxide 27 mmol/L (22-30); Chloride 102 mmol/L (98-107); Estimated CRCL calculation 52 ml/min; Estimated Glomerular Filt Rate 40; Glucose 157 mg/dL (65-110); Potassium 3.7 mmol/L (3.4-5.0); Sodium 136 mmol/L (137-145)
[2024-02-14 07:33] LABS: Glucose Point of Care 154 mg/dl (65-105)
[2024-02-14 07:58] VITALS: PULSE 89
[2024-02-14] MEDS: ATORVASTATIN 40 MG TABLET 80 MG PO (07:58)
[2024-02-14] MEDS: carvediloL 12.5 MG TABLET PO ×2 (07:58→20:29)
[2024-02-14] MEDS: EUCERIN CREAM 120 GM JAR 1 APPLIC TOPICAL (07:59)
[2024-02-14 08:00] VITALS: PULSE 89; RESP 20; O2SAT 98
--- NOTE | 2024-02-14 09:45 | PM.IMPN ---
Progress Note: A&P Assessment and Plan (1) Sepsis: Code(s): A41.9 - Sepsis, unspecified organism Status: Acute Assessment and Plan: Meets SIRS criteria: hypotensive, WBC - lactic acid: 1.3 - Fluid resuscitated - suspected source: UTI - blood cultures drawn on 02/10: NGTD - UA: Turbid appearance with trace ketones, 1+ blood, 3+ leukocytes, greater than 100 WBC, 4+ bacteria - UC obtained on 02/10: Citrobacter Koseri - CXR unremarkable - started on Rocephin on 02/11, transitioned to bactrim on 02/13 (2) Urinary tract infection: Code(s): N39.0 - Urinary tract infection, site not specified Status: Acute Assessment and Plan: - UA: Turbid appearance with trace ketones, 1+ blood, 3+ leukocytes, greater than 100 WBC, 4+ bacteria - UC obtained on 02/10: Citrobacter Koseri - No previous micro to be reviewed - started on Rocephin on 02/11, transitioned to (3) Weakness of both lower extremities: Code(s): R29.898 - Other symptoms and signs involving the musculoskeletal system Status: Acute Assessment and Plan: This does not seem to be in acute problems and more an ongoing issue to the point where the patient is now not able to even stand on his own although that is likely precipitated by his urinary tract infection. Worsened in the last few weeks to the points where he could not move much at all. - UA: Turbid appearance with trace ketones, 1+ blood, 3+ leukocytes, greater than 100 WBC, 4+ bacteria - UC obtained on 02/10: Citrobacter Koseri - CXR unremarkable - Chest/abdomen/pelvis CT: Multiple pulmonary nodules measuring up to 9 mm in the right lower lobe. Recommend follow-up low-dose noncontrast CT of the chest in 3-6 months. Mediastinal lymphadenopathy. 8 mm pancreatic body cyst, recommend follow-up CT abdomen and pelvis with contrast in 2 years. 2.0 cm left adrenal nodule, probably benign, consider follow-up adrenal CT in 12 months, unless there is a history of cancer, in which case consider referral for nonemergent outpatient adrenal CT now. No acute fracture fracture or traumatic malalignment detected in the thoracic or lumbar spine. - Lumbar MRI: Moderate lumbar spondylosis, worst at L4-L5 and L5-S1. pt/ot ordered (4) Atrial fibrillation: Code(s): I48.91 - Unspecified atrial fibrillation Status: Acute Assessment and Plan: His atrial fibrillation is rate controlled on carvedilol which will be continued with parameters. Hold this evening dose of warfarin as his INR is therapeutic and monitor daily. - bp is soft- will decrease coreg dose to 12.5 mg BID and monitor for HR/BP 02/13- stable-will continue current coreg dose for now- can increase back to home dose once BP is stable to avoid afib exacerbation (5) Hypertension: Code(s): I10 - Essential (primary) hypertension Status: Acute Assessment and Plan: Chronic, hypotensive on admission with systolics in the 90s. - Blood pressures continue to be low in the 100 systolic - carvedilol dose decreased to 12.5 mg b.i.d. for AFib control - continue holding losartan 50 mg daily and lasix 80 mg daily - plan to call cardiology tomorrow to discuss resuming medications - monitor (6) Nonischemic cardiomyopathy: Code(s): I42.8 - Other cardiomyopathies Status: Acute Assessment and Plan: Hypotensive on admission with systolics in the 90s. Hold diuretics and antihypertensives for now; this will need to be readdressed once he is adequately hydrated so he can be started back on guideline directed medical therapy for his nonischemic cardiomyopathy. - plan to call cardiology tomorrow to discuss resuming medications (7) Chronic kidney disease, stage 4 (severe): Code(s): N18.4 - Chronic kidney disease, stage 4 (severe) Status: Acute Assessment and Plan: BUN/Cr ae at baseline. - Monitor BUN/Cr on am labs - renally dose medications - avoid nephrotoxic medications (8) Insulin dependent type 2 diabetes mellitus: Code(s): E11.9 - Type 2 diabetes mellitus without complications; Z79.4 - [facility] (current) use of insulin Status: Acute Assessment and Plan: Continue basal insulin and check hemoglobin A1c. Initiate sliding scale insulin, Accu-Cheks, and hypoglycemic protocol -hold home semiglutide -discussed it could be a reason for his diarrhea- needs to discuss with synoptic meteorologist (9) Diarrhea: Code(s): R19.7 - Diarrhea, unspecified Status: Acute Assessment and Plan: - no recent hospitalization - no recent antibiotics - c diff negative - discussed potential correlation between diarrhea and semigluitde - will hold med and see if diarrhea improves (10) Pulmonary nodule: Code(s): R91.1 - Solitary pulmonary nodule Status: Acute Assessment and Plan: - Chest/abdomen/pelvis CT: Multiple pulmonary nodules measuring up to 9 mm in the right lower lobe. Recommend follow-up low-dose noncontrast CT of the chest in 3-6 months. Mediastinal lymphadenopathy. 8 mm pancreatic body cyst, recommend follow-up CT abdomen and pelvis with contrast in 2 years. 2.0 cm left adrenal nodule, probably benign, consider follow-up adrenal CT in 12 months, unless there is a history of cancer, in which case consider referral for nonemergent outpatient adrenal CT now. No acute fracture fracture or traumatic malalignment detected in the thoracic or lumbar spine. - Lumbar MRI: Moderate lumbar spondylosis, worst at L4-L5 and L5-S1. (11) Adrenal nodule: Code(s): E27.9 - Disorder of adrenal gland, unspecified Status: Acute Assessment and Plan: - Chest/abdomen/pelvis CT: Multiple pulmonary nodules measuring up to 9 mm in the right lower lobe. Recommend follow-up low-dose noncontrast CT of the chest in 3-6 months. Mediastinal lymphadenopathy. 8 mm pancreatic body cyst, recommend follow-up CT abdomen and pelvis with contrast in 2 years. 2.0 cm left adrenal nodule, probably benign, consider follow-up adrenal CT in 12 months, unless there is a history of cancer, in which case consider referral for nonemergent outpatient adrenal CT now. No acute fracture fracture or traumatic malalignment detected in the thoracic or lumbar spine. - Lumbar MRI: Moderate lumbar spondylosis, worst at L4-L5 and L5-S1. (12) Pancreatic cyst: Code(s): K86.2 - Cyst of pancreas Status: Acute Assessment and Plan: - Chest/abdomen/pelvis CT: Multiple pulmonary nodules measuring up to 9 mm in the right lower lobe. Recommend follow-up low-dose noncontrast CT of the chest in 3-6 months. Mediastinal lymphadenopathy. 8 mm pancreatic body cyst, recommend follow-up CT abdomen and pelvis with contrast in 2 years. 2.0 cm left adrenal nodule, probably benign, consider follow-up adrenal CT in 12 months, unless there is a history of cancer, in which case consider referral for nonemergent outpatient adrenal CT now. No acute fracture fracture or traumatic malalignment detected in the thoracic or lumbar spine. - Lumbar MRI: Moderate lumbar spondylosis, worst at L4-L5 and L5-S1. Time Spent With Patient Time with patient: 25 - 35 minutes Subjective Date/time seen: 02/14/24 09:45 Interval history: Patient is pleasant sitting up in his chair. He has no complaints at this time denying chest pain, shortness a breath, nausea / vomiting, abdominal pain. Patient's urine culture is growing this Citrobacter koseri. Discuss this ID pharmacy and will transition patient to Bactrim at this time complete the antibiotic course. He continues to have lower blood pressures in the 100 systolic. He remains on the lower dose of Coreg we are holding his heart he and Lasix. He states that he has been trying to work with physical therapy and occupational therapy to regain his strength. We are currently awaiting insurance authorization for placement for ongoing therapy. Review of Systems Review of Systems: All systems reviewed & are unremarkable except as noted in HPI and below Exam Narrative: AF HR 87 RR 18 SpO2 98 BP 104/47 General: male in no acute respiratory distress who is nontoxic appearing, sitting up in his chair HEENT: Normocephalic. Atraumatic. Extraocular movement intact. Sclera clear and anicteric. No facial asymmetry. Chest: Lungs are clear to auscultation bilaterally. No wheezes or crackles. CV: Heart was regular rate and rhythm. S1/S2. No murmurs, gallops, or rubs. Abd: Abdomen was soft. Nontender. Nondistended. Positive bowel sounds. No organomegaly or masses. Ext: No clubbing, cyanosis, or edema. 1+ DP pulses bilaterally. Neuro: Patient is alert. Cranial nerves 2-12 are intact. Speech is clear. Objective Data Vital Signs Vital Signs: Vital Signs - 24 hr 02/13/24 10:14 02/13/24 11:10 02/13/24 14:00 Temperature 97.8 F Pulse Rate 78 Respiratory Rate 17 Blood Pressure 106/58 L Pulse Oximetry 100 Oxygen Delivery Room Air Room Air 02/13/24 20:05 02/13/24 21:30 02/14/24 06:00 Temperature 96.9 F L 96.7 F L Pulse Rate 84 73 Respiratory Rate 18 20 Blood Pressure 112/58 L 104/54 L Pulse Oximetry 100 98 Oxygen Delivery Room Air 02/14/24 07:58 Temperature Pulse Rate 89 Respiratory Rate Blood Pressure Pulse Oximetry Oxygen Delivery Intake/Output Intake/Output: Intake & Output 02/11/24 02/12/24 02/13/24 02/14/24 23:59 23:59 23:59 23:59 Intake Total 1550 1520 1990 1152 Output Total 1350 2100 700 Balance 1550 170 -110 452 Meds/Results Medications: Active Medications Generic Name Dose Route Start Last Admin Trade Name Freq PRN Reason Stop Dose Admin Acetaminophen 650 mg 02/11/24 23:31 Acetaminophen 325 Mg Tablet PO Q6H PRN Mild Pain (1-3) or Fever Atorvastatin Calcium 80 mg 02/12/24 09:00 02/14/24 07:58 Atorvastatin 40 Mg Tablet PO 80 mg DAILY CARMELA Administration Carvedilol 12.5 mg 02/12/24 21:00 02/14/24 07:58 Carvedilol 12.5 Mg Tablet PO 12.5 mg Q12HR CARMELA Administration Dextrose 12.5 gm 02/11/24 23:31 Dextrose 50% 25 Gm/50 Ml Syringe IV PUSH PRN PRN Hypoglycemia Protocol Ergocalciferol 50,000 units 02/12/24 09:00 02/12/24 09:24 Ergocalciferol 50,000 Units Capsule PO 50,000 units Mo@0900 CARMELA Administration Glucagon 1 mg 02/11/24 23:31 Glucagon For Inj 1 Mg Vial IM PRN PRN Hypoglycemia Protocol Glucose 15 gm 02/11/24 23:31 Glucose Oral Gel 15 Gm Of Glucse In 37.5 Gm Tube PO PRN PRN Hypoglycemia Protocol Ceftriaxone Sodium 1 gm in 50 mls @ 100 mls/hr 02/12/24 16:00 02/13/24 16:38 Rocephin 1 Gm/Ns 50 Ml IVPB 100 mls/hr Q24H CARMELA Administration Dextrose 1,000 mls @ 100 mls/hr 02/11/24 23:31 Dextrose 5% 1,000 Ml IVPB PRN PRN Hypoglycemia Protocol Insulin Aspart 1 - 3 units 02/11/24 21:00 02/13/24 21:15 Insulin Aspart (*Bkc) 100 Units/Ml SUB-Q 1 units HS CARMELA Administration Protocol Insulin Aspart 3 - 6 units 02/12/24 08:00 02/14/24 07:58 Insulin Aspart (*Bkc) 100 Units/Ml SUB-Q Not Given TIDWM [facility] Protocol Multi-Ingred Cream/Lotion/Oil/Oint 1 applic 02/12/24 09:00 02/14/24 07:59 Eucerin Cream 120 Gm Jar TOPICAL 1 applic DAILY [facility] Administration Psyllium Hydrophilic Mucilloid 1 packet 02/12/24 09:00 02/14/24 08:00 Psyllium Powder Packet PO Not Given QAM [facility] Warfarin Sodium 5 mg 02/13/24 17:00 Warfarin (*Pbkc) 5 Mg Tablet PO DAILY@1700 [facility] Radiology Results: ITS Impressions Chest X-Ray 02/11/24 13:55 Impression: Clear lungs. Chest/Abdomen/Pelvis/Spine CT 02/11/24 16:17 IMPRESSION: Multiple pulmonary nodules measuring up to 9 mm in the right lower lobe. Recommend follow-up low-dose noncontrast CT of the chest in 3-6 months. Mediastinal lymphadenopathy. 8 mm pancreatic body cyst, recommend follow-up CT abdomen and pelvis with contrast in 2 years. 2.0 cm left adrenal nodule, probably benign, consider follow-up adrenal CT in 12 months, unless there is a history of cancer, in which case consider referral for nonemergent outpatient adrenal CT now. No acute fracture fracture or traumatic malalignment detected in the thoracic or lumbar spine. Lumbar Spine MRI 02/13/24 08:55 IMPRESSION: 1. Moderate lumbar spondylosis, worst at L4-L5 and L5-S1. Labs Labs: Laboratory Results - last 24 hr 02/13/24 02/13/24 02/13/24 11:09 12:04 16:23 WBC RBC Hgb Hct MCV MCH MCHC RDW Plt Count MPV PT INR Sodium Potassium Chloride Carbon Dioxide Anion Gap BUN Creatinine Estim Creat Clear Calc Estimated GFR Glucose POC Capillary Glucose 182 H 186 H Calcium C. difficile (PCR) Negative 02/13/24 02/14/24 02/14/24 20:05 06:15 06:16 WBC 7.7 RBC 2.97 L Hgb 9.4 L Hct 28.6 L MCV 96.3 MCH 31.6 MCHC 32.9 RDW 13.8 Plt Count 209 MPV 10.7 H PT 37.0 H INR 3.7 Sodium 136 L Potassium 3.7 Chloride 102 Carbon Dioxide 27 Anion Gap 7 BUN 39 H Creatinine 1.70 H Estim Creat Clear Calc 52 Estimated GFR 40 L Glucose 157 H POC Capillary Glucose 226 H Calcium 9.1 C. difficile (PCR) 02/14/24 07:29 WBC RBC Hgb Hct MCV MCH MCHC RDW Plt Count MPV PT INR Sodium Potassium Chloride Carbon Dioxide Anion Gap BUN Creatinine Estim Creat Clear Calc Estimated GFR Glucose POC Capillary Glucose 154 H Calcium C. difficile (PCR) Quality VTE Prophylaxis VTE prophylaxis: mechanical ordered
[2024-02-14 12:01] LABS: Glucose Point of Care 216 mg/dl (65-105)
[2024-02-14] MEDS: INSULIN ASPART (*BKC) 100 UNITS/ML SUB-Q ×3 (13:35→20:35)
[2024-02-14 14:00] VITALS: BP 104/47; PULSE 87; RESP 18; TEMP 36.2; O2SAT 98
[2024-02-14] MEDS: SULFAMETHOXAZOLE/TRIMETHOPRIM 800/160 MG DS TABLET 1 TAB PO ×2 (15:17→23:28)
[2024-02-14 16:43] LABS: Glucose Point of Care 228 mg/dl (65-105)
--- NOTE | 2024-02-14 16:59 | P.CONNS_ITS ---
Assessment and Plan Assessment and plan (1) Urinary tract infection: Code(s): N39.0 - Urinary tract infection, site not specified Status: Acute Plan Mr. Isaac is a 73-year-old male with history of DM, CKD, Afib on coumadin who was admitted earlier this week with inability to stand unsupported and was found to have a UTI in addition to an elevated WBC and hypotension. He has symptomatically improved since being treated in the hospital and has been able to stand with physical therapy. He does have hip flexor weakness but has full strength distally. I reviewed his MRI lumbar spine which shows multilevel degenerative changes without acute pathology or severe central stenosis. I suspect his presenting symptoms are related to his underlying infection and exacerbation of other medical comorbidities. I do not recommend any surgical intervention to his spine. He should work with physical therapy both in and out of the hospital. Consult date: 02/14/24 HPI: Erwin Isaac is a 73 year old male with history of DM, CKD, Afib on coumadin who was admitted earlier this week with lower-extremity weakness. He describes fairly significant neuropathy in his legs that make it difficult for him to walk at baseline. On Monday, he states he suddenly could not move his feet to walk; however, upon further questioning, it sounds like he was unable to support his weight to stand. He denies new pain or worsening paresthesias in the legs. On admission, he was found to be hypotensive with an elevated WBC and UTI. He has noticed improvement since admission and has now been able to stand with therapy. Review of Systems Review of Systems: All systems reviewed & are unremarkable except as noted in HPI and below PMFSH Past Medical History Medical History (Updated 02/12/24 @ 14:12 by Gela Pedraza APRN) Asthma Atrial fibrillation Basal cell carcinoma (BCC) of brow Chronic anticoagulation Chronic kidney disease, stage 4 (severe) Hypertension Insulin dependent type 2 diabetes mellitus Mixed hyperlipidemia Multiple myeloma poorly documented Nonischemic cardiomyopathy Urticaria Venous insufficiency Vitamin D deficiency Surgical History Surgical History (Updated 02/11/24 @ 23:24 by Rima Goss PA-C) History of arthroscopy of both knees History of basal cell carcinoma excision History of bilateral cataract extraction History of cardiac catheterization no obstructive disease per patient report History of cardioversion History of colonoscopy with polypectomy Family History Family History Father Family history of emphysema, Onset Age: 69 Social History Social History (Updated 02/11/24 @ 23:19 by Rima Goss PA-C) Social History: Surrogate medical decision maker: Jose Isaac (son) or Josy Weston (sibling). Code status: Full code. Smoking status: Never smoker Alcohol intake: current Alcohol use details: social alcohol use in moderation Substance use: never Substance use type: does not use Do You Feel Safe in your Home?: No Lack of Transportation: No Lack of Food: Never True Current Housing: I Have Housing Concerned About Future Housing: No Difficulty Paying Gas/Electric Bills: No Difficulty Paying for Meds: No Currently Unemployed: No Education: High School Diploma/GED Difficulty w/ Childcare or Family Care: No Living arrangements: alone Additional living arrangements comments: the patient lives in his own home in [place] Occupation/Education: retired Spiritual care concerns: No Meds Home Medications and Allergies Home Medications Medication Instructions Recorded Confirmed Type carvedilol 25 mg tablet 25 mg PO BID 01/30/19 02/11/24 History losartan 50 mg tablet 50 mg PO DAILY 01/30/19 02/11/24 History potassium chloride 20 mEq 20 meq PO DAILY 01/30/19 02/11/24 History tablet,extended release spironolactone 50 mg tablet 50 mg PO DAILY 01/30/19 02/11/24 History warfarin 5 mg tablet 5 mg PO DAILY 11/22/19 02/11/24 History furosemide 80 mg tablet 80 mg PO BID 05/23/23 02/11/24 History cholecalciferol (vitamin D3) 1,250 1,250 mcg PO WEEKLY #14 tabs 09/14/23 02/11/24 Rx mcg (50,000 unit) tablet semaglutide 1 mg/dose (2 mg/1.5 1 mg subcut WEEKLY 11/01/23 02/11/24 History mL) subcutaneous pen injector flash glucose sensor (FreeStyle #2 kits 11/24/23 02/11/24 Rx Germania 2 Sensor kit) pen needle, diabetic 32 gauge x #200 ea 12/13/23 02/11/24 Rx 5/32 (BD Lona 2nd Gen Pen Needle) glucagon 1 mg/0.2 mL subcutaneous 1 mg (0.2 mL) subcut ONCE #0.4 mL 01/15/24 02/11/24 Rx auto-injector (Gvoke HypoPen 2-Pack) insulin regular hum U-500 conc 500 40 unit subcut DAILY 01/15/24 02/11/24 Histor y unit/mL(3 mL) subcut pen (Humulin R U-500 (Conc) Insulin Kwikpen) atorvastatin 80 mg tablet 80 mg PO DAILY #90 tabs 01/24/24 02/11/24 Rx mupirocin 2 % topical ointment 1 applic topical TID 7 days #30 02/06/24 02/11/24 Rx grams fenofibrate 54 mg tablet 54 mg PO DAILY 02/11/24 02/11/24 History Allergies Allergy/AdvReac Type Severity Reaction Status Date / Time No Known Allergies Allergy Verified 02/11/24 13:19 Vital Signs Vital Signs - 24 hr 02/13/24 20:05 02/13/24 21:30 02/14/24 06:00 Temperature 96.9 F L 96.7 F L Pulse Rate 84 73 Respiratory Rate 18 20 Blood Pressure 112/58 L 104/54 L Pulse Oximetry 100 98 Oxygen Delivery Room Air 02/14/24 07:58 02/14/24 08:00 02/14/24 14:00 Temperature 97.1 F L Pulse Rate 89 89 87 Respiratory Rate 20 18 Blood Pressure 104/47 L Pulse Oximetry 98 98 Oxygen Delivery Room Air Exam Narrative: BLE 3/5 hip flexors, otherwise full strength Decreased but symmetric sensation below knees Lower legs are edematous, red Unless otherwise stated above, the patient's physical exam is as follows: General: -Well developed and well nourished. No a cute distress. Cooperative with exam. Mental status: -Awake and oriented to person, place, an d time. Integumentary: -No obvious skin lesions or masses Motor: -Muscle tone normal without spasticity o f flaccidity. No atrophy. No fasciculations. -No pronator drift -Right upper extremity: deltoid 5/5, bic eps 5/5, triceps 5/5, wrist extensors 5/5, wrist flexors 5/5, intrinsics 5/5 -Left upper extremity: deltoid 5/5, [place] ps 5/5, triceps 5/5, wrist extensors 5/5, wrist flexors 5/5, intrinsics 5/5 -Right lower extremity: iliopsoas 5/5, q uadriceps 5/5, hamstrings 5/5, tibialis anterior 5/5, gastroc-soleus 5/5, EHL 5/5 -Left lower extremity: iliopsoas 5/5, qu adriceps 5/5, hamstrings 5/5, tibialis anterior 5/5, gastroc-soleus 5/5, EHL 5/5 Sensory: -Intact to light touch throughout -Normal proprioception throughout Results Labs 02/14/24 06:15 02/14/24 06:16 Labs: Short CBC 02/14/24 Range/Units 06:15 WBC 7.7 (4.5-10.0) K/mm3 Hgb 9.4 L (14.0-18.0) g/dL Hct 28.6 L (42.0-52.0) % Plt Count 209 (150-375) k/mm3 BMP 02/14/24 06:16 Sodium 136 L Potassium 3.7 Chloride 102 Carbon Dioxide 27 BUN 39 H Creatinine 1.70 H Glucose 157 H Calcium 9.1 Imaging My impression: I personally reviewed the MRI Lumbar which shows multilevel degenerative changes and mild to moderate stenosis at L3-4 and L4-5 without acute pathology or severe stenosis
[2024-02-14 20:29] VITALS: PULSE 83
[2024-02-14 21:01] LABS: Glucose Point of Care 211 mg/dl (65-105)
[2024-02-14 21:15] VITALS: BP 105/60; PULSE 69; RESP 20; TEMP 36.4; O2SAT 99
[2024-02-15 06:00] VITALS: BP 114/60; PULSE 77; RESP 20; TEMP 36.7; O2SAT 99
[2024-02-15 07:34] LABS: INR 2.7; Prothrombin Time 29.3 Seconds (11.1-14.7)
[2024-02-15 07:47] LABS: Hematocrit 30.4 % (42.0-52.0); Hemoglobin 10.1 g/dL (14.0-18.0); Mean Corpuscular HGB Conc 33.2 g/dl (32-36); Mean Corpuscular Hemoglobin 32.3 pg (26-34); Mean Corpuscular Volume 97.1 fl (80-100); Platelet Count Result 221 k/mm3 (150-375); Red Blood Count 3.13 M/mm3 (4.6-6.20); Red Cell Distribution Width 14.1 % (11.5-14.5); White Blood Count 8.2 K/mm3 (4.5-10.0)
[2024-02-15 07:54] LABS: Anion Gap 8 mmol/L (4-12); Blood Urea Nitrogen 37 mg/dL (9-20); Calcium 9.3 mg/dL (8.4-10.2); Carbon Dioxide 27 mmol/L (22-30); Chloride 101 mmol/L (98-107); Estimated CRCL calculation 54 ml/min; Estimated Glomerular Filt Rate 43; Glucose 156 mg/dL (65-110); Potassium 3.8 mmol/L (3.4-5.0); Sodium 136 mmol/L (137-145)
[2024-02-15 08:01] LABS: Glucose Point of Care 167 mg/dl (65-105)
[2024-02-15] MEDS: PSYLLIUM POWDER PACKET 1 PACKET PO (09:16)
[2024-02-15] MEDS: ATORVASTATIN 40 MG TABLET 80 MG PO (09:18)
[2024-02-15 09:19] VITALS: PULSE 88
[2024-02-15] MEDS: SULFAMETHOXAZOLE/TRIMETHOPRIM 800/160 MG DS TABLET 1 TAB PO ×2 (09:19→22:03)
[2024-02-15] MEDS: carvediloL 12.5 MG TABLET PO ×2 (09:19→22:03)
[2024-02-15] MEDS: EUCERIN CREAM 120 GM JAR 1 APPLIC TOPICAL (09:21)
--- NOTE | 2024-02-15 09:52 | PM.IMPN ---
Progress Note: A&P Assessment and Plan (1) Sepsis: Code(s): A41.9 - Sepsis, unspecified organism Status: Acute Assessment and Plan: Meets SIRS criteria: hypotensive, WBC - lactic acid: 1.3 - Fluid resuscitated - suspected source: UTI - blood cultures drawn on 02/10: NGTD - UA: Turbid appearance with trace ketones, 1+ blood, 3+ leukocytes, greater than 100 WBC, 4+ bacteria - UC obtained on 02/10: Citrobacter Koseri - CXR unremarkable - started on Rocephin on 02/11, transitioned to bactrim on 02/13 (2) Urinary tract infection: Code(s): N39.0 - Urinary tract infection, site not specified Status: Acute Assessment and Plan: - UA: Turbid appearance with trace ketones, 1+ blood, 3+ leukocytes, greater than 100 WBC, 4+ bacteria - UC obtained on 02/10: Citrobacter Koseri - No previous micro to be reviewed - started on Rocephin on 02/11, transitioned to bactrim on 02/13 (3) Weakness of both lower extremities: Code(s): R29.898 - Other symptoms and signs involving the musculoskeletal system Status: Acute Assessment and Plan: This does not seem to be in acute problems and more an ongoing issue to the point where the patient is now not able to even stand on his own although that is likely precipitated by his urinary tract infection. Worsened in the last few weeks to the points where he could not move much at all. - UA: Turbid appearance with trace ketones, 1+ blood, 3+ leukocytes, greater than 100 WBC, 4+ bacteria - UC obtained on 02/10: Citrobacter Koseri - CXR unremarkable - Chest/abdomen/pelvis CT: Multiple pulmonary nodules measuring up to 9 mm in the right lower lobe. Recommend follow-up low-dose noncontrast CT of the chest in 3-6 months. Mediastinal lymphadenopathy. 8 mm pancreatic body cyst, recommend follow-up CT abdomen and pelvis with contrast in 2 years. 2.0 cm left adrenal nodule, probably benign, consider follow-up adrenal CT in 12 months, unless there is a history of cancer, in which case consider referral for nonemergent outpatient adrenal CT now. No acute fracture fracture or traumatic malalignment detected in the thoracic or lumbar spine. - Lumbar MRI: Moderate lumbar spondylosis, worst at L4-L5 and L5-S1. pt/ot ordered (4) Atrial fibrillation: Code(s): I48.91 - Unspecified atrial fibrillation Status: Acute Assessment and Plan: His atrial fibrillation is rate controlled on carvedilol which will be continued with parameters. Hold this evening dose of warfarin as his INR is therapeutic and monitor daily. - bp is soft- will decrease coreg dose to 12.5 mg BID and monitor for HR/BP 02/13- stable-will continue current coreg dose for now- can increase back to home dose once BP is stable to avoid afib exacerbation (5) Hypertension: Code(s): I10 - Essential (primary) hypertension Status: Acute Assessment and Plan: Chronic, hypotensive on admission with systolics in the 90s. - Blood pressures continue to be low in the 100 systolic - carvedilol dose decreased to 12.5 mg b.i.d. for AFib control - continue holding losartan 50 mg daily, lasix 80 mg daily, and spironolactone 50 mg daily - discussed patient with cardiology and they recommend resuming in the [facility] first if the blood pressures will tolerate, however after reviewing blood pressures again they are still on lower side of normal at 100 systolic. Continue to hold. Patient will likely need to follow-up with his primary care versus racquet maker in regards to resuming the medications in the outpatient setting. - monitor (6) Nonischemic cardiomyopathy: Code(s): I42.8 - Other cardiomyopathies Status: Acute Assessment and Plan: Hypotensive on admission with systolics in the 90s. Hold diuretics and antihypertensives for now; this will need to be readdressed once he is adequately hydrated so he can be started back on guideline directed medical therapy for his nonischemic cardiomyopathy. (7) Chronic kidney disease, stage 4 (severe): Code(s): N18.4 - Chronic kidney disease, stage 4 (severe) Status: Acute Assessment and Plan: BUN/Cr ae at baseline. - Monitor BUN/Cr on am labs - renally dose medications - avoid nephrotoxic medications (8) Insulin dependent type 2 diabetes mellitus: Code(s): E11.9 - Type 2 diabetes mellitus without complications; Z79.4 - intermission coordinator (current) use of insulin Status: Acute Assessment and Plan: Continue basal insulin and check hemoglobin A1c. Initiate sliding scale insulin, Accu-Cheks, and hypoglycemic protocol -hold home semiglutide -discussed it could be a reason for his diarrhea- needs to discuss with manager strategic development (9) Diarrhea: Code(s): R19.7 - Diarrhea, unspecified Status: Acute Assessment and Plan: - no recent hospitalization - no recent antibiotics - c diff negative - discussed potential correlation between diarrhea and semigluitde - will hold med and see if diarrhea improves (10) Pulmonary nodule: Code(s): R91.1 - Solitary pulmonary nodule Status: Acute Assessment and Plan: - Chest/abdomen/pelvis CT: Multiple pulmonary nodules measuring up to 9 mm in the right lower lobe. Recommend follow-up low-dose noncontrast CT of the chest in 3-6 months. Mediastinal lymphadenopathy. 8 mm pancreatic body cyst, recommend follow-up CT abdomen and pelvis with contrast in 2 years. 2.0 cm left adrenal nodule, probably benign, consider follow-up adrenal CT in 12 months, unless there is a history of cancer, in which case consider referral for nonemergent outpatient adrenal CT now. No acute fracture fracture or traumatic malalignment detected in the thoracic or lumbar spine. - Lumbar MRI: Moderate lumbar spondylosis, worst at L4-L5 and L5-S1. (11) Adrenal nodule: Code(s): E27.9 - Disorder of adrenal gland, unspecified Status: Acute Assessment and Plan: - Chest/abdomen/pelvis CT: Multiple pulmonary nodules measuring up to 9 mm in the right lower lobe. Recommend follow-up low-dose noncontrast CT of the chest in 3-6 months. Mediastinal lymphadenopathy. 8 mm pancreatic body cyst, recommend follow-up CT abdomen and pelvis with contrast in 2 years. 2.0 cm left adrenal nodule, probably benign, consider follow-up adrenal CT in 12 months, unless there is a history of cancer, in which case consider referral for nonemergent outpatient adrenal CT now. No acute fracture fracture or traumatic malalignment detected in the thoracic or lumbar spine. - Lumbar MRI: Moderate lumbar spondylosis, worst at L4-L5 and L5-S1. (12) Pancreatic cyst: Code(s): K86.2 - Cyst of pancreas Status: Acute Assessment and Plan: - Chest/abdomen/pelvis CT: Multiple pulmonary nodules measuring up to 9 mm in the right lower lobe. Recommend follow-up low-dose noncontrast CT of the chest in 3-6 months. Mediastinal lymphadenopathy. 8 mm pancreatic body cyst, recommend follow-up CT abdomen and pelvis with contrast in 2 years. 2.0 cm left adrenal nodule, probably benign, consider follow-up adrenal CT in 12 months, unless there is a history of cancer, in which case consider referral for nonemergent outpatient adrenal CT now. No acute fracture fracture or traumatic malalignment detected in the thoracic or lumbar spine. - Lumbar MRI: Moderate lumbar spondylosis, worst at L4-L5 and L5-S1. Time Spent With Patient Time with patient: 25 - 35 minutes Subjective Date/time seen: 02/15/24 09:52 Interval history: Patient is pleasant lying comfortably in bed with his family at bedside. He continues to endorse slight diarrhea but notes that this is improving since admission. He has no other complaints denying chest pain, shortness a breath, palpitations, nausea / vomiting, and abdominal pain. Discussed patient with cardiology and they recommend resuming in the 1st the list is is blood pressures will tolerate, however after reviewing blood pressures again they still on lower side of normal at 100 systolic. Continue to hold. Patient will likely need to follow-up with his primary care versus racquet maker regards to resuming of the medications in the outpatient setting. Review of Systems Review of Systems: All systems reviewed & are unremarkable except as noted in HPI and below Exam Narrative: AF HR 77 RR 20 SPO2 99 BP 14/60 General: male in no acute respiratory distress who is nontoxic appearing, sitting up in his chair HEENT: Normocephalic. Atraumatic. Extraocular movement intact. Sclera clear and anicteric. No facial asymmetry. Chest: Lungs are clear to auscultation bilaterally. No wheezes or crackles. CV: Heart was regular rate and rhythm. S1/S2. No murmurs, gallops, or rubs. Abd: Abdomen was soft. Nontender. Nondistended. Positive bowel sounds. No organomegaly or masses. Ext: No clubbing, cyanosis, or edema. 1+ DP pulses bilaterally. Neuro: Patient is alert. Cranial nerves 2-12 are intact. Speech is clear. Objective Data Vital Signs Vital Signs: Vital Signs - 24 hr 02/14/24 14:00 02/14/24 20:29 02/14/24 21:15 Temperature 97.1 F L 97.6 F Pulse Rate 87 83 69 Respiratory Rate 18 20 Blood Pressure 104/47 L 105/60 Pulse Oximetry 98 99 02/15/24 06:00 02/15/24 09:19 Temperature 98.0 F Pulse Rate 77 88 Respiratory Rate 20 Blood Pressure 114/60 Pulse Oximetry 99 Intake/Output Intake/Output: Intake & Output 02/12/24 02/13/24 02/14/24 02/15/24 23:59 23:59 23:59 23:59 Intake Total 1520 1990 1872 100 Output Total 1350 2100 1150 Balance 170 -110 722 100 Meds/Results Medications: Active Medications Generic Name Dose Route Start Last Admin Trade Name Freq PRN Reason Stop Dose Admin Acetaminophen 650 mg 02/11/24 23:31 Acetaminophen 325 Mg Tablet PO Q6H PRN Mild Pain (1-3) or Fever Atorvastatin Calcium 80 mg 02/12/24 09:00 02/15/24 09:18 Atorvastatin 40 Mg Tablet PO 80 mg DAILY CARMELA Administration Carvedilol 12.5 mg 02/12/24 21:00 02/15/24 09:19 Carvedilol 12.5 Mg Tablet PO 12.5 mg Q12HR CARMELA Administration Dextrose 12.5 gm 02/11/24 23:31 Dextrose 50% 25 Gm/50 Ml Syringe IV PUSH PRN PRN Hypoglycemia Protocol Ergocalciferol 50,000 units 02/12/24 09:00 02/12/24 09:24 Ergocalciferol 50,000 Units Capsule PO 50,000 units Mo@0900 CARMELA Administration Glucagon 1 mg 02/11/24 23:31 Glucagon For Inj 1 Mg Vial IM PRN PRN Hypoglycemia Protocol Glucose 15 gm 02/11/24 23:31 Glucose Oral Gel 15 Gm Of Glucse In 37.5 Gm Tube PO PRN PRN Hypoglycemia Protocol Dextrose 1,000 mls @ 100 mls/hr 02/11/24 23:31 Dextrose 5% 1,000 Ml IVPB PRN PRN Hypoglycemia Protocol Insulin Aspart 1 - 3 units 02/11/24 21:00 02/14/24 20:35 Insulin Aspart (*Bkc) 100 Units/Ml SUB-Q 1 units HS CARMELA Administration Protocol Insulin Aspart 3 - 6 units 02/12/24 08:00 02/15/24 08:07 Insulin Aspart (*Bkc) 100 Units/Ml SUB-Q Not Given TIDWM [facility] Protocol Multi-Ingred Cream/Lotion/Oil/Oint 1 applic 02/12/24 09:00 02/15/24 09:21 Eucerin Cream 120 Gm Jar TOPICAL 1 applic DAILY CARMELA Administration Psyllium Hydrophilic Mucilloid 1 packet 02/12/24 09:00 02/15/24 09:16 Psyllium Powder Packet PO 1 packet QAM CARMELA Administration Trimethoprim/Sulfamethoxazole 1 tab 02/14/24 14:30 02/15/24 09:19 Sulfamethoxazole/Trimethoprim 800/160 Mg Ds Tablet PO 02/17/24 21:01 1 tab Q12HR CARMELA Administration Warfarin Sodium 5 mg 02/13/24 17:00 Warfarin (*Pbkc) 5 Mg Tablet PO DAILY@1700 [facility] Radiology Results: ITS Impressions Chest X-Ray 02/11/24 13:55 Impression: Clear lungs. Chest/Abdomen/Pelvis/Spine CT 02/11/24 16:17 IMPRESSION: Multiple pulmonary nodules measuring up to 9 mm in the right lower lobe. Recommend follow-up low-dose noncontrast CT of the chest in 3-6 months. Mediastinal lymphadenopathy. 8 mm pancreatic body cyst, recommend follow-up CT abdomen and pelvis with contrast in 2 years. 2.0 cm left adrenal nodule, probably benign, consider follow-up adrenal CT in 12 months, unless there is a history of cancer, in which case consider referral for nonemergent outpatient adrenal CT now. No acute fracture fracture or traumatic malalignment detected in the thoracic or lumbar spine. Lumbar Spine MRI 02/13/24 08:55 IMPRESSION: 1. Moderate lumbar spondylosis, worst at L4-L5 and L5-S1. Labs Labs: Laboratory Results - last 24 hr 02/14/24 02/14/24 02/14/24 11:29 16:27 20:33 WBC RBC Hgb Hct MCV MCH MCHC RDW Plt Count MPV PT INR Sodium Potassium Chloride Carbon Dioxide Anion Gap BUN Creatinine Estim Creat Clear Calc Estimated GFR Glucose POC Capillary Glucose 216 H 228 H 211 H Calcium 02/15/24 02/15/24 07:07 07:36 WBC 8.2 RBC 3.13 L Hgb 10.1 L Hct 30.4 L MCV 97.1 MCH 32.3 MCHC 33.2 RDW 14.1 Plt Count 221 MPV 11.0 H PT 29.3 H D INR 2.7 Sodium 136 L Potassium 3.8 Chloride 101 Carbon Dioxide 27 Anion Gap 8 BUN 37 H Creatinine 1.60 H Estim Creat Clear Calc 54 Estimated GFR 43 L Glucose 156 H POC Capillary Glucose 167 H Calcium 9.3 Quality VTE Prophylaxis VTE prophylaxis: mechanical ordered
[2024-02-15 12:06] LABS: Glucose Point of Care 281 mg/dl (65-105)
[2024-02-15] MEDS: INSULIN ASPART (*BKC) 100 UNITS/ML SUB-Q (12:36)
[2024-02-15 14:00] VITALS: BP 113/55; PULSE 82; RESP 14; TEMP 36.2; O2SAT 100
[2024-02-15 17:00] LABS: Glucose Point of Care 159 mg/dl (65-105)
[2024-02-15 22:01] LABS: Glucose Point of Care 163 mg/dl (65-105)
[2024-02-15 22:23] VITALS: BP 114/49; PULSE 84; RESP 20; TEMP 36.2; O2SAT 98
[2024-02-16 06:00] VITALS: BP 112/54; PULSE 77; RESP 16; TEMP 36.3; O2SAT 94
[2024-02-16 06:36] LABS: Hematocrit 29.6 % (42.0-52.0); Hemoglobin 9.9 g/dL (14.0-18.0); Mean Corpuscular HGB Conc 33.4 g/dl (32-36); Mean Corpuscular Hemoglobin 32.5 pg (26-34); Mean Platelet Volume 9.8 fl (7.4-10.4); Platelet Count Result 221 k/mm3 (150-375); Red Blood Count 3.05 M/mm3 (4.6-6.20); Red Cell Distribution Width 14.3 % (11.5-14.5); White Blood Count 9.1 K/mm3 (4.5-10.0)
[2024-02-16 06:46] LABS: Anion Gap 7 mmol/L (4-12); Blood Urea Nitrogen 30 mg/dL (9-20); Calcium 9.5 mg/dL (8.4-10.2); Carbon Dioxide 27 mmol/L (22-30); Chloride 104 mmol/L (98-107); Estimated CRCL calculation 51 ml/min; Estimated Glomerular Filt Rate 40; Glucose 135 mg/dL (65-110); Sodium 138 mmol/L (137-145)
[2024-02-16 07:02] LABS: INR 2.3; Prothrombin Time 25.3 Seconds (11.1-14.7)
--- NOTE | 2024-02-16 08:15 | P.PNIM_ITS ---
Progress Note: A&P Assessment and Plan (1) Sepsis: Code(s): A41.9 - Sepsis, unspecified organism Status: Acute Assessment and Plan: Meets SIRS criteria: hypotensive, WBC - lactic acid: 1.3 - Fluid resuscitated - suspected source: UTI - blood cultures drawn on 02/10: NGTD - UA: Turbid appearance with trace ketones, 1+ blood, 3+ leukocytes, greater than 100 WBC, 4+ bacteria - UC obtained on 02/10: Citrobacter Koseri - CXR unremarkable - started on Rocephin on 02/11, transitioned to bactrim on 02/13 course to be completed on 02/16 (2) Urinary tract infection: Code(s): N39.0 - Urinary tract infection, site not specified Status: Acute Assessment and Plan: - UA: Turbid appearance with trace ketones, 1+ blood, 3+ leukocytes, greater than 100 WBC, 4+ bacteria - UC obtained on 02/10: Citrobacter Koseri - No previous micro to be reviewed - started on Rocephin on 02/11, transitioned to bactrim on 02/13 course to be completed on 02/16 (3) Weakness of both lower extremities: Code(s): R29.898 - Other symptoms and signs involving the musculoskeletal system Status: Acute Assessment and Plan: This does not seem to be in acute problems and more an ongoing issue to the point where the patient is now not able to even stand on his own although that is likely precipitated by his urinary tract infection. Worsened in the last few weeks to the points where he could not move much at all. - UA: Turbid appearance with trace ketones, 1+ blood, 3+ leukocytes, greater than 100 WBC, 4+ bacteria - UC obtained on 02/10: Citrobacter Koseri - CXR unremarkable - Chest/abdomen/pelvis CT: Multiple pulmonary nodules measuring up to 9 mm in the right lower lobe. Recommend follow-up low-dose noncontrast CT of the chest in 3-6 months. Mediastinal lymphadenopathy. 8 mm pancreatic body cyst, recommend follow-up CT abdomen and pelvis with contrast in 2 years. 2.0 cm left adrenal nodule, probably benign, consider follow-up adrenal CT in 12 months, unless there is a history of cancer, in which case consider referral for nonemergent outpatient adrenal CT now. No acute fracture fracture or traumatic malalignment detected in the thoracic or lumbar spine. - Lumbar MRI: Moderate lumbar spondylosis, worst at L4-L5 and L5-S1. pt/ot ordered (4) Atrial fibrillation: Code(s): I48.91 - Unspecified atrial fibrillation Status: Acute Assessment and Plan: His atrial fibrillation is rate controlled on carvedilol which will be continued with parameters. Hold this evening dose of warfarin as his INR is therapeutic and monitor daily. - bp is soft- will decrease coreg dose to 12.5 mg BID and monitor for HR/BP 02/13- stable-will continue current coreg dose for now- can increase back to home dose once BP is stable to avoid afib exacerbation (5) Hypertension: Code(s): I10 - Essential (primary) hypertension Status: Acute Assessment and Plan: Chronic, hypotensive on admission with systolics in the 90s. - Blood pressures continue to be low in the 100-110s systolic - carvedilol dose decreased to 12.5 mg b.i.d. for AFib control - continue holding losartan 50 mg daily, lasix 80 mg daily, and spironolactone 50 mg daily - discussed patient with cardiology and they recommend resuming the ARB first if the blood pressures will tolerate, however after reviewing blood pressures again they are still on lower side of normal at 100 systolic. Continue to hold. 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 -monitor (6) Nonischemic cardiomyopathy: Code(s): I42.8 - Other cardiomyopathies Status: Acute Assessment and Plan: Hypotensive on admission with systolics in the 90s. Hold diuretics and antihypertensives for now; this will need to be readdressed once he is adequately hydrated so he can be started back on guideline directed medical therapy for his nonischemic cardiomyopathy. (7) Chronic kidney disease, stage 4 (severe): Code(s): N18.4 - Chronic kidney disease, stage 4 (severe) Status: Acute Assessment and Plan: BUN/Cr ae at baseline. - Monitor BUN/Cr on am labs - renally dose medications - avoid nephrotoxic medications (8) Insulin dependent type 2 diabetes mellitus: Code(s): E11.9 - Type 2 diabetes mellitus without complications; Z79.4 - joint terminal attack controller (current) use of insulin Status: Acute Assessment and Plan: Continue basal insulin and check hemoglobin A1c. Initiate sliding scale insulin, Accu-Cheks, and hypoglycemic protocol -hold home semiglutide -discussed it could be a reason for his diarrhea- needs to discuss with predictive maintenance technician (9) Diarrhea: Code(s): R19.7 - Diarrhea, unspecified Status: Acute Assessment and Plan: - no recent hospitalization - no recent antibiotics - c diff negative - discussed potential correlation between diarrhea and semigluitde - will hold med and see if diarrhea improves - imodium 2mg prn (10) Pulmonary nodule: Code(s): R91.1 - Solitary pulmonary nodule Status: Acute Assessment and Plan: - Chest/abdomen/pelvis CT: Multiple pulmonary nodules measuring up to 9 mm in the right lower lobe. Recommend follow-up low-dose noncontrast CT of the chest in 3-6 months. Mediastinal lymphadenopathy. 8 mm pancreatic body cyst, recommend follow-up CT abdomen and pelvis with contrast in 2 years. 2.0 cm left adrenal nodule, probably benign, consider follow-up adrenal CT in 12 months, unless there is a history of cancer, in which case consider referral for nonemergent outpatient adrenal CT now. No acute fracture fracture or traumatic malalignment detected in the thoracic or lumbar spine. - Lumbar MRI: Moderate lumbar spondylosis, worst at L4-L5 and L5-S1. (11) Adrenal nodule: Code(s): E27.9 - Disorder of adrenal gland, unspecified Status: Acute Assessment and Plan: - Chest/abdomen/pelvis CT: Multiple pulmonary nodules measuring up to 9 mm in the right lower lobe. Recommend follow-up low-dose noncontrast CT of the chest in 3-6 months. Mediastinal lymphadenopathy. 8 mm pancreatic body cyst, recommend follow-up CT abdomen and pelvis with contrast in 2 years. 2.0 cm left adrenal nodule, probably benign, consider follow-up adrenal CT in 12 months, unless there is a history of cancer, in which case consider referral for nonemergent outpatient adrenal CT now. No acute fracture fracture or traumatic malalignment detected in the thoracic or lumbar spine. - Lumbar MRI: Moderate lumbar spondylosis, worst at L4-L5 and L5-S1. (12) Pancreatic cyst: Code(s): K86.2 - Cyst of pancreas Status: Acute Assessment and Plan: - Chest/abdomen/pelvis CT: Multiple pulmonary nodules measuring up to 9 mm in the right lower lobe. Recommend follow-up low-dose noncontrast CT of the chest in 3-6 months. Mediastinal lymphadenopathy. 8 mm pancreatic body cyst, recommend follow-up CT abdomen and pelvis with contrast in 2 years. 2.0 cm left adrenal nodule, probably benign, consider follow-up adrenal CT in 12 months, unless there is a history of cancer, in which case consider referral for nonemergent outpatient adrenal CT now. No acute fracture fracture or traumatic malalignment detected in the thoracic or lumbar spine. - Lumbar MRI: Moderate lumbar spondylosis, worst at L4-L5 and L5-S1. Subjective Date/time seen: 02/16/24 08:15 Review of Systems Review of Systems: All systems reviewed & are unremarkable except as noted in HPI and below Exam Narrative: AF HR General: male in no acute respiratory distress who is nontoxic appearing, sitting up in his chair HEENT: Normocephalic. Atraumatic. Extraocular movement intact. Sclera clear and anicteric. No facial asymmetry. Chest: Lungs are clear to auscultation bilaterally. No wheezes or crackles. CV: Heart was regular rate and rhythm. S1/S2. No murmurs, gallops, or rubs. Abd: Abdomen was soft. Nontender. Nondistended. Positive bowel sounds. No organomegaly or masses. Ext: No clubbing, cyanosis, or edema. 1+ DP pulses bilaterally. Neuro: Patient is alert. Cranial nerves 2-12 are intact. Speech is clear. Objective Data Vital Signs Vital Signs: Vital Signs - 24 hr 02/15/24 09:19 02/15/24 14:00 02/15/24 22:23 Temperature 97.2 F L 97.1 F L Pulse Rate 88 82 84 Respiratory Rate 14 20 Blood Pressure 113/55 L 114/49 L Pulse Oximetry 100 98 Oxygen Delivery 02/15/24 20:00 02/16/24 06:00 Temperature 97.4 F L Pulse Rate 77 Respiratory Rate 16 Blood Pressure 112/54 L Pulse Oximetry 94 Oxygen Delivery Room Air Intake/Output Intake/Output: Intake & Output 02/13/24 02/14/24 02/15/24 02/16/24 23:59 23:59 23:59 23:59 Intake Total 1989 1872 575 500 Output Total 2099 1150 800 800 Balance -110 722 -225 -300 Meds/Results Medications: Active Medications Generic Name Dose Route Start Last Admin Trade Name Freq PRN Reason Stop Dose Admin Acetaminophen 650 mg 02/11/24 23:31 Acetaminophen 325 Mg Tablet PO Q6H PRN Mild Pain (1-3) or Fever Atorvastatin Calcium 80 mg 02/12/24 09:00 02/15/24 09:18 Atorvastatin 40 Mg Tablet PO 80 mg DAILY CARMELA Administration Carvedilol 12.5 mg 02/12/24 21:00 02/15/24 22:03 Carvedilol 12.5 Mg Tablet PO 12.5 mg Q12HR CARMELA Administration Dextrose 12.5 gm 02/11/24 23:31 Dextrose 50% 25 Gm/50 Ml Syringe IV PUSH PRN PRN Hypoglycemia Protocol Ergocalciferol 50,000 units 02/12/24 09:00 02/12/24 09:24 Ergocalciferol 50,000 Units Capsule PO 50,000 units Mo@0900 CARMELA Administration Glucagon 1 mg 02/11/24 23:31 Glucagon For Inj 1 Mg Vial IM PRN PRN Hypoglycemia Protocol Glucose 15 gm 02/11/24 23:31 Glucose Oral Gel 15 Gm Of Glucse In 37.5 Gm Tube PO PRN PRN Hypoglycemia Protocol Dextrose 1,000 mls @ 100 mls/hr 02/11/24 23:31 Dextrose 5% 1,000 Ml IVPB PRN PRN Hypoglycemia Protocol Insulin Aspart 1 - 3 units 02/11/24 21:00 02/15/24 21:50 Insulin Aspart (*Bkc) 100 Units/Ml SUB-Q Not Given HS CARMELA Protocol Insulin Aspart 3 - 6 units 02/12/24 08:00 02/15/24 17:10 Insulin Aspart (*Bkc) 100 Units/Ml SUB-Q Not Given TIDWM [facility] Protocol Multi-Ingred Cream/Lotion/Oil/Oint 1 applic 02/12/24 09:00 02/15/24 09:21 Eucerin Cream 120 Gm Jar TOPICAL 1 applic DAILY CARMELA Administration Psyllium Hydrophilic Mucilloid 1 packet 02/12/24 09:00 02/15/24 09:16 Psyllium Powder Packet PO 1 packet QAM CARMELA Administration Trimethoprim/Sulfamethoxazole 1 tab 02/14/24 14:30 02/15/24 22:03 Sulfamethoxazole/Trimethoprim 800/160 Mg Ds Tablet PO 02/17/24 21:01 1 tab Q12HR [facility] Administration Warfarin Sodium 5 mg 02/13/24 17:00 Warfarin (*Pbkc) 5 Mg Tablet PO DAILY@1700 [facility] Radiology Results: ITS Impressions Chest X-Ray 02/11/24 13:55 Impression: Clear lungs. Chest/Abdomen/Pelvis/Spine CT 02/11/24 16:17 IMPRESSION: Multiple pulmonary nodules measuring up to 9 mm in the right lower lobe. Recommend follow-up low-dose noncontrast CT of the chest in 3-6 months. Mediastinal lymphadenopathy. 8 mm pancreatic body cyst, recommend follow-up CT abdomen and pelvis with contrast in 2 years. 2.0 cm left adrenal nodule, probably benign, consider follow-up adrenal CT in 12 months, unless there is a history of cancer, in which case consider referral for nonemergent outpatient adrenal CT now. No acute fracture fracture or traumatic malalignment detected in the thoracic or lumbar spine. Lumbar Spine MRI 02/13/24 08:55 IMPRESSION: 1. Moderate lumbar spondylosis, worst at L4-L5 and L5-S1. Labs Labs: Laboratory Results - last 24 hr 02/15/24 02/15/24 02/15/24 11:44 16:52 21:46 WBC RBC Hgb Hct MCV MCH MCHC RDW Plt Count MPV PT INR Sodium Potassium Chloride Carbon Dioxide Anion Gap BUN Creatinine Estim Creat Clear Calc Estimated GFR Glucose POC Capillary Glucose 281 H 159 H 163 H Calcium 02/16/24 06:28 WBC 9.1 RBC 3.05 L Hgb 9.9 L Hct 29.6 L MCV 97.0 MCH 32.5 MCHC 33.4 RDW 14.3 Plt Count 221 MPV 9.8 PT 25.3 H INR 2.3 Sodium 138 Potassium 4.0 Chloride 104 Carbon Dioxide 27 Anion Gap 7 BUN 30 H Creatinine 1.70 H Estim Creat Clear Calc 51 Estimated GFR 40 L Glucose 135 H POC Capillary Glucose Calcium 9.5 Quality VTE Prophylaxis VTE prophylaxis: mechanical ordered
[2024-02-16 08:25] LABS: Glucose Point of Care 147 mg/dl (65-105)
[2024-02-16] MEDS: PSYLLIUM POWDER PACKET 1 PACKET PO (09:24)
[2024-02-16 09:25] VITALS: PULSE 76
[2024-02-16] MEDS: ATORVASTATIN 40 MG TABLET 80 MG PO (09:25)
[2024-02-16] MEDS: SULFAMETHOXAZOLE/TRIMETHOPRIM 800/160 MG DS TABLET 1 TAB PO (09:25)
[2024-02-16] MEDS: carvediloL 12.5 MG TABLET PO (09:25)
[2024-02-16] MEDS: EUCERIN CREAM 120 GM JAR 1 APPLIC TOPICAL (11:29)
[2024-02-16 11:59] LABS: Glucose Point of Care 194 mg/dl (65-105)
--- NOTE | 2024-02-16 12:03 | PCCDE ---
02/16/24 Per Multidisciplinary Meeting; Pt to be DC'd to facility today. No new Inpatient DM needs. FJ
[2024-02-16 14:00] VITALS: BP 108/61; PULSE 64; RESP 16; O2SAT 99
--- NOTE | 2024-02-16 14:37 | P.DS_ITS ---
DS: Admitting Diagnosis Discharge Date Admitting Diagnosis sepsis UTI Weakness in both lower extermities A fib HTN Nonischemic cardiomyopathy CKD DM Diarrhea Pulmonary nodule Adrenal nodule pancreatic cyst DS: Discharge Diagnosis Discharge Diagnosis (1) Sepsis: Code(s): A41.9 - Sepsis, unspecified organism Status: Acute (2) Urinary tract infection: Code(s): N39.0 - Urinary tract infection, site not specified Status: Acute (3) Weakness of both lower extremities: Code(s): R29.898 - Other symptoms and signs involving the musculoskeletal system Status: Acute (4) Atrial fibrillation: Code(s): I48.91 - Unspecified atrial fibrillation Status: Acute (5) Hypertension: Code(s): I10 - Essential (primary) hypertension Status: Acute (6) Nonischemic cardiomyopathy: Code(s): I42.8 - Other cardiomyopathies Status: Acute (7) Chronic kidney disease, stage 4 (severe): Code(s): N18.4 - Chronic kidney disease, stage 4 (severe) Status: Acute (8) Insulin dependent type 2 diabetes mellitus: Code(s): E11.9 - Type 2 diabetes mellitus without complications; Z79.4 - intermediate (current) use of insulin Status: Acute (9) Diarrhea: Code(s): R19.7 - Diarrhea, unspecified Status: Acute (10) Pulmonary nodule: Code(s): R91.1 - Solitary pulmonary nodule Status: Acute (11) Adrenal nodule: Code(s): E27.9 - Disorder of adrenal gland, unspecified Status: Acute (12) Pancreatic cyst: Code(s): K86.2 - Cyst of pancreas Status: Acute DS: Summary Hospital Course Reason for hospitalization: sepsis UTI Weakness in both lower extermities A fib HTN Nonischemic cardiomyopathy CKD DM Diarrhea Pulmonary nodule Adrenal nodule pancreatic cyst Hospital Course: 73-year-old male with multiple medical problems including atrial fibrillation, nonischemic cardiomyopathy, hypertension, hyperlipidemia, and insulin-dependent type 2 diabetes mellitus who presented to the emergency department via EMS for evaluation of weakness. On admission patient was found to be hypotensive with blood pressures in the 90 systolic. He was meeting sepsis criteria with hypotension and leukocytosis. His urinalysis was concerning for urinary tract infection. Blood cultures were drawn and show no growth to date. He was started on IV antibiotics at that time. Urine culture grew Citrobacter koseri and denis sweeney was transitioned to p.o. Bactrim to complete his course. Due to patient's ongoing hypotension his antihypertensive medications were placed hold including losartan, Lasix, spironolactone. He remains on his Coreg at a lower dose due to ongoing AFib. Patient's AFib remained rate controlled on this current Coreg dose and his blood pressures remained stable despite being off his antihypertensives. At time of discharge place patient on a lower dose of his Lasix and discussed with him that he has a follow-up with his primary care provider or Cardiology in terms of resuming his losartan and spironolactone. He states understanding. Patient was endorsing lower extremity weakness on admission and had a chest/abdomen/ pelvis CT performed which showed several incidental findings. Multiple pulmonary nodules measuring up to 9 mm in the right lower lobe. Recommend follow-up low-dose noncontrast CT of the chest in 3- 6 months. 8 mm pancreatic body cyst, recommend follow-up CT abdomen and pelvis with contrast in 2 years. 2.0 cm left adrenal nodule, probably benign, consider follow-up adrenal CT in 12 months, unless there is a history of cancer, in which case consider referral for nonemergent outpatient adrenal CT now. Discussed these findings with patient and that he is to follow up for imaging with his primary care provider. Patient also had a lumbar MRI performed which showed moderate lumbar spondylosis. Patient worked with therapy throughout his admission and will be discharged to SNF. At time of discharge patient had no complaints denies chest pain, shortness a breath, palpitations, lightheaded/ dizziness, nausea / vomiting, and abdominal pain. Patient discharged to SNF in a stable condition. He is to continue his antibiotics as prescribed and follow-up with his primary care provider and Cardiology as scheduled. Status at Discharge Functional status at discharge: uses cane/walker Time Spent with Patient Time attestation: Total time spent providing and/or coordinating discharge services: Time spent: Greater than 30 minutes Exam Narrative: AF HR 64 RR 16 SpO2 99 BP 108/61 General: male in no acute respiratory distress who is nontoxic appearing, sitting up in his chair HEENT: Normocephalic. Atraumatic. Extraocular movement intact. Sclera clear and anicteric. No facial asymmetry. Chest: Lungs are clear to auscultation bilaterally. No wheezes or crackles. CV: Heart was regular rate and rhythm. S1/S2. No murmurs, gallops, or rubs. Abd: Abdomen was soft. Nontender. Nondistended. Positive bowel sounds. No organomegaly or masses. Ext: No clubbing, cyanosis, or edema. 1+ DP pulses bilaterally. Neuro: Patient is alert. Cranial nerves 2-12 are intact. Speech is clear. DS: Data Data Completed and Pending Completed studies during hospitalization: lumbar spine MRI chest/abdomen/ pelvis / spine CT chest x-ray Labs on day of discharge: Labs from last 24 hours 02/16/24 02/16/24 02/16/24 11:54 08:21 06:28 WBC 9.1 RBC 3.05 L Hgb 9.9 L Hct 29.6 L MCV 97.0 MCH 32.5 MCHC 33.4 RDW 14.3 Plt Count 221 MPV 9.8 PT 25.3 H INR 2.3 Sodium 138 Potassium 4.0 Chloride 104 Carbon Dioxide 27 Anion Gap 7 BUN 30 H Creatinine 1.70 H Estim Creat Clear Calc 51 Estimated GFR 40 L Glucose 135 H POC Capillary Glucose 194 H 147 H Calcium 9.5 02/15/24 02/15/24 21:46 16:52 WBC RBC Hgb Hct MCV MCH MCHC RDW Plt Count MPV PT INR Sodium Potassium Chloride Carbon Dioxide Anion Gap BUN Creatinine Estim Creat Clear Calc Estimated GFR Glucose POC Capillary Glucose 163 H 159 H Calcium Preliminary micro results at discharge 02/11/24 16:29 Blood Culture - Preliminary Blood 02/11/24 16:17 Blood Culture - Preliminary Blood Discharge Plan Discharge Attending physician on discharge: Radha Nation Consulting providers: Rhys Lopez Discharging Clinician: Gail Rothman Anticipated Discharge Date/Time: 02/16/24 14:22 Patient Disposition: SNF Activity: as tolerated Diet: as tolerated, heart healthy and diabetic Discharge Instructions: Discharge disposition: Patient was admitted to the hospital for weakness and found to have lower blood pressures Several of his blood pressure medications were placed on hold including losartan 50 mg daily and spironolactone 50 mg daily. These are to remain on hold until you follow-up with your primary care provider in regards to resuming them based on your blood pressures at the time. Patient is to continue his Lasix however the dose has been decreased to 40 mg daily instead of his usual home dose of 80 mg twice a day Patient is to continue his Coreg however this dose has been decreased to 12.5 mg twice a day instead of his usual home dose of 25 mg twice a day. Monitor blood pressures Take caution while standing, rising, or moving Change positions slowly taking a break between each position change If you standing feel dizzy sit back down and take a break Patient was diagnosed with a urinary tract infection during his admission Take all medications as prescribed even if feeling better Bactrim twice a day, course be completed on 02/16. Attached is information on this medication. Eat well balanced meals and stay hydrated Keep active to remain strong Avoid use of diapers or pads Good ana cristina Care every 2 hours Trend urine output Strict bleeding precautions since you are on Warfarin including shaving with an electric razor, holding pressure for greater than 20 minutes for injury, protection of had with any falls, etc. warfarin dose has been decreased to 2.5 mg daily continue to PT/INR for dose adjustment Patient had diarrhea likely secondary to Ozempic C diff was negative he is to follow-up with primary care provider and discuss his Ozempic medication Patient had several incidental finding seen on imaging including: * Multiple pulmonary nodules measuring up to 9 mm in the right lower lobe. Recommend follow-up low-dose noncontrast CT of the chest in 3-6 months. * 8 mm pancreatic body cyst Recommend follow-up CT abdomen and pelvis with contrast in 2 years. * 2.0 cm left adrenal nodule, probably benign Consider follow-up adrenal CT in 12 months These follow-up images can be ordered by your primary care provider Encouraged to continue with yearly vaccinations Return to the emergency department if he developed sudden shortness of breath, chest pain, nausea, vomiting, upset stomach or intractable diarrhea Return to the emergency department if you develop fever greater than 101.5 Follow-up with the primary care physician within 1 weeks Thank you for choosing [facility] for your healthcare needs Patient Instructions: Sulfamethoxazole/Trimethoprim (By mouth), Warfarin (By mouth), Heart Failure (DC), Urinary Tract Infection in Men (DC), Urinary Tract Infection in Older Adults (DC) Patient Language: Turkmen Stand Alone Forms: General Discharge Information Follow-up/Referrals: Erwin Velasquez MD [Physician] - Call for Appointment Erwin Gardner MD [Primary Care Provider] - 1 Week Discharge Medications: New sulfamethoxazole-trimethoprim 800-160 mg Tablet 1 tab PO Q12HR Qty: 3 0RF Continued cholecalciferol (vitamin D3) 1,250 mcg (50,000 unit) tablet 1,250 mcg PO WEEKLY Qty: 14 2RF Rx Instructions: pt takes on Mondays Humulin R U-500 (Conc) Kwikpen 500 unit/mL (3 mL) insulin pen 40 unit subcut DAILY Patient Comments: before breakfast Gvoke HypoPen 2-Pack 1 mg/0.2 mL auto-injector 1 mg subcut ONCE Qty: 0.4 4RF Rx Instructions: may repeat once after 15 minutes if no response fenofibrate 54 mg tablet 54 mg PO DAILY potassium chloride 20 mEq Tablet Extended Release 20 meq PO DAILY semaglutide 1 mg/dose (2 mg/1.5 mL) Pen Injector 1 mg SUBCUT WEEKLY Rx Instructions: takes on Mondays (DME) FreeStyle Germania 2 Sensor Kit See Rx Instructions .ROUTE .COMPLEX Qty: 2 6RF Dose Instruction: DIRECTED TO CHECK BLOOD SUGARS 3 TIMES Rx Instructions: DIRECTED TO CHECK BLOOD SUGARS 3 TIMES (DME) pen needle, diabetic [BD Lona 2nd Gen Pen Needle] 32 gauge x 5/32 needle See Rx Instructions .ROUTE .COMPLEX Qty: 200 1RF Dose Instruction: USE TWICE DAILY Rx Instructions: USE TWICE DAILY atorvastatin 80 mg tablet 80 mg PO DAILY Qty: 90 1RF mupirocin 2 % ointment 1 applic TOPICAL TID 7 Days Qty: 30 0RF Rx Instructions: apply to leg wounds Changed carvedilol 25 mg Tablet 12.5 mg PO BID Qty: 60 0RF furosemide 80 mg tablet 40 mg PO DAILY Qty: 15 0RF warfarin 5 mg tablet 2.5 mg PO DAILY Qty: 15 0RF Patient Comments: pt states he takes 1/2 tab on Tu, Th, Sat, and Sun; 1 tablet on Monday, Mon, Monday Held losartan 50 mg Tablet 50 mg PO DAILY Hold Instructions: Resume on 03/11/24. hold until follow-up with PCP or Cardiology spironolactone 50 mg Tablet 50 mg PO DAILY Hold Instructions: Resume on 03/11/24. hold until follow-up with PCP or Cardiology Date of admission: 02/11/24 20:34 Primary Care Provider: Erwin Gardner Admitting Provider: Joann Sifuentes V. Attending physician on admission: Gail Rothman Condition: Stable Quality VTE Prophylaxis VTE prophylaxis: pharmacologic ordered Hospitalist MIPS Heart Failure (Exclusion) Patient has history of Heart Transplant or Left Ventricular Assistive Device?: No IF YES, STOP HERE Heart Failure (Qualifier) Patient has current or prior documentation of LVEF less than or equal to 40%, or mod/servere depressed LVSF?: No IF NO, STOP HERE
[2024-02-16 16:43] LABS: Glucose Point of Care 186 mg/dl (65-105)
[2024-02-16] MEDS: INFLUENZA VACCINE HIGH DOSE (>64) 180 MCG/0.5 ML SYRINGE IM (18:58)
== END 2024-02-16 19:00 ==
LOC: ANHED 14:17 → ANH3MEDSUR 21:50
PROVIDERS: Emergency Medicine; Nurse Practitioner; Physician Assistant; Admitting Provider Internal Medicine; Emergency Provider Physician Assistant; PCP Emergency Medicine; Visit Provider Student in an Organized Health Care Education/Training Program
DX: A41.9 Sepsis, unspecified organism (principal); N39.0 Urinary tract infection, site not specified; R29.898 Other symptoms and signs involving the musculoskeletal system; I48.91 Unspecified atrial fibrillation; I42.8 Other cardiomyopathies; E11.22 Type 2 diabetes mellitus with diabetic chronic kidney disease; I12.9 Hypertensive chronic kidney disease with stage 1 through stage 4 chronic kidney disease, or unspecified chronic kidney disease; N18.4 Chronic kidney disease, stage 4 (severe); E11.40 Type 2 diabetes mellitus with diabetic neuropathy, unspecified; E86.0 Dehydration; R19.7 Diarrhea, unspecified; R91.8 Other nonspecific abnormal finding of lung field; E27.9 Disorder of adrenal gland, unspecified; K86.2 Cyst of pancreas; M47.896 Other spondylosis, lumbar region; M48.061 Spinal stenosis, lumbar region without neurogenic claudication; J45.909 Unspecified asthma, uncomplicated; E78.2 Mixed hyperlipidemia; C90.00 Multiple myeloma not having achieved remission; Z23 Encounter for immunization; Z79.01 Long term (current) use of anticoagulants; Z79.4 Long term (current) use of insulin; Z79.85 Long-term (current) use of injectable non-insulin antidiabetic drugs; Z85.828 Personal history of other malignant neoplasm of skin
CPT/HCPCS: 36415; 71045; 71260; 72129; 72132; 72148; 74177; 80048; 80053; 81001; 82948; 83036; 83605; 83735; 83880; 84443; 84484; 85025; 85027; 85610; 85730; 86140; 87040; 87077; 87086; 87186; 87493; 90471; 90662; 93005; 96361; 96365; 96376; 97110; 97161; 97166; 97530; 97535; 99212; 99285; A9270; G0008; G0378; G0463; J0696; J1815; J7040; Q9967

== ENCOUNTER 2024-03-19 10:57 | Inpatient (IN) | payer OTHER, SELFPAY ==
--- NOTE | ~2024-03-19 | US_ITS ---
EXAMINATION: US abdomen limited DATE: 03/23/2024 09:17 INDICATION: Abnormal liver function tests. TECHNIQUE: Multiple grayscale and Doppler ultrasound images of the abdomen were obtained. COMPARISON: CT abdomen and pelvis 02/11/2024 FINDINGS: The visualized portions of the head of the pancreas are normal. The liver is normal without focal lesion. No liver surface nodularity. The gallbladder is normal in size and contains a gallston e. No gallbladder wall thickening or sonographic Collier sign. The common duct is normal and measures 2 mm. IMPRESSION: 1. Cholelithiasis. No evidence of acute cholecystitis. Reviewed, dictated and finalized at location A. PRESSER
--- NOTE | ~2024-03-19 | XR_ITS ---
XR heel LT min 2V Ordering provider: Delfino Winn MD History: . wound . Comparison: None. FINDINGS: BONES: No acute fracture or dislocation. Island seen in the superior posterior aspect of the calcaneus. JOINT SPACES: Well maintained. SOFT TISSUES: Calcaneus spur. Ossification of the insertion of the tendo Achilles. IMPRESSION: No acute osseous abnormality. Reviewed, dictated and finalized at location A. E SHOE RAGGER
--- NOTE | ~2024-03-19 | XR_ITS ---
XR heel RT min 2V Ordering provider: Delfino Winn MD History: . wound . Comparison: None. FINDINGS: BONES: No acute fracture or dislocation. JOINT SPACES: Well maintained. SOFT TISSUES: Ossification of the insertion of the tendo Achilles. Calcaneal spur. IMPRESSION: No acute osseous abnormality. Reviewed, dictated and finalized at location A. FITTER
--- NOTE | ~2024-03-19 | CT_ITS ---
EXAMINATION: CTA chest PE abdomen pel DATE: 03/25/2024 04:18 INDICATION: Bacteremia. TECHNIQUE: Computed tomography angiography (CTA) of the chest was performed with 100 mL Omnipaque-350 intravenous contrast timed to evaluate the pulmonary arteries. Coronal maximum intensity projection 3D-reconstructions were created by the technologist. Computed tomography (CT) of the abdomen and pelv is was performed with intravenous contrast. Automated exposure control and iterative reconstruction t echnique were employed. The dose-length product was 3049.64 mGy-cm. COMPARISON: CT 02/11/2024 FINDINGS: CTA chest: There are small pleural effusions. Again seen are 9 mm and 4 mm nodules in right lower lob e. There is dependent atelectasis bilaterally. There is left atrial enlargement of the heart. There a re coronary artery calcifications. No pericardial effusion. There is no pulmonary embolus. There is b ilateral gynecomastia. There is a mildly enlarged right infrahilar lymph node measuring 1.8 x 2.0 cm. There are bridging endplate osteophytes at multiple levels in the spine, consistent with diffuse idi opathic skeletal hyperostosis (DISH). There is moderate thoracic spondylosis. CT abdomen and pelvis: The liver and spleen are normal. There is a gallstone in the gallbladder, whic h is normal in size. The pancreas and adrenal glands are normal. There is a 1.9 cm cyst of right kidn ey. There is cortical thinning in the kidneys. The prostate is severely enlarged. There is a Ahmadi ca theter in expected position. There is diffuse bladder wall thickening, likely secondary to chronic ou tlet obstruction. There is diverticulosis of the colon without evidence of diverticulitis. The append ix is normal. There is a small sliding hiatal hernia. There are no pathologically enlarged lymph node s. There is no free intraperitoneal fluid. There is moderate lumbar spondylosis. IMPRESSION: 1. No pulmonary embolus. 2. Small pleural effusions. 3. Small sliding hiatal hernia. 4. Pulmonary nodules again seen measuring up to 9 mm, which may be infection or malignancy. Noncontra st low-dose chest CT is recommended in 3 months. 5. Mildly enlarged right infrahilar lymph node. Reviewed, dictated and finalized at location A. SPECIALIST IMPRESSION: 1. No pulmonary embolus. 2. Small pleural effusions. 3. Small sliding hiatal hernia. 4. Pulmonary nodules again seen measuring up to 9 mm, which may be infection or malignancy. Noncontrast low-dose chest CT is recommended in 3 months. 5. Mildly enlarged right infrahilar lymph node.
--- NOTE | ~2024-03-19 | XR_ITS ---
EXAMINATION: XR foot LT 2V DATE: 03/24/2024 10:19 INDICATION: Left foot cellulitis. TECHNIQUE: 2 views of left foot were obtained. COMPARISON: Left calcaneus radiographs 03/19/2024 FINDINGS: Alignment is normal. No fracture. Joint spaces are normal. There are enthesophytes at the p osterior and plantar aspects of calcaneal tuberosity. IMPRESSION: 1. No evidence of osteomyelitis. Reviewed, dictated and finalized at location A. CARDER
--- NOTE | ~2024-03-19 | XR_ITS ---
EXAMINATION: XR chest 1V portable DATE: 03/24/2024 08:46 INDICATION: Pneumonia. TECHNIQUE: A single frontal view of the chest was obtained on 2 radiographs. COMPARISON: Chest single view 02/11/2024, chest CT 02/11/2024 FINDINGS: There is no pneumonia, pleural effusion, or pneumothorax. The heart size is normal. There i s a benign bone island in right second rib. IMPRESSION: 1. No acute cardiopulmonary disease. Reviewed, dictated and finalized at location A. K SERVICE TECHNICIAN
--- NOTE | ~2024-03-19 | XR_ITS ---
EXAMINATION: XR foot RT 2V DATE: 03/24/2024 10:19 INDICATION: Right foot cellulitis. TECHNIQUE: 2 views of right foot were obtained. COMPARISON: Right calcaneus radiographs 03/19/2024 FINDINGS: Alignment is normal. No fracture. 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 There are enthesophytes at the posterior and plantar aspects of calcaneal tuberosity. IMPRESSION: 1. No evidence of osteomyelitis. Reviewed, dictated and finalized at location A. F TECHNICIAN HELPER
--- NOTE | ~2024-03-19 | US_ITS ---
EXAMINATION: US venous doppler UE RT DATE: 03/29/2024 10:37 INDICATION: Right upper limb swelling TECHNIQUE: Grayscale images without and with compression and Doppler images of the right upper extrem ity veins were obtained. COMPARISON: None. FINDINGS: The right internal jugular vein, subclavian vein, axillary vein, brachial vein, basilic vein, cephali c vein, radial vein, and ulnar vein are patent. IMPRESSION: 1. Patent right upper extremity veins. No evidence of venous thrombosis. Reviewed, dictated and finalized at location B. RENTAL DELIVERER
[2024-03-19 11:00] VITALS: BP 138/69; PULSE 82; RESP 16; TEMP 36.4; O2SAT 97
--- NOTE | 2024-03-19 11:12 | ED_ITS ---
HPI - General Adult General Chief complaint: Wound/Laceration Stated complaint: wounds, ?infection History of Present Illness HPI narrative: 74-year-old male present to the emergency department for evaluation for worsening chronic wounds on his heels. Patient was admitted to a care facility for rehab due to lower extremity weakness. Patient has been spending a lot of time in bed and he states that he was told that the nurse had not been putting on the heel pillows. The patient was evaluated by the wound care nurse today and felt that he needed to be evaluated in the emergency department. Patient does have acute worsening of bilateral heel ulcers. Related Data Home Medications ?Medication ?Instructions ?Recorded ?Confirmed ?Last Taken ?Type losartan 50 mg tablet 50 mg PO DAILY 01/30/19 03/19/24 03/19/24 History potassium chloride 20 mEq 20 meq PO DAILY 01/30/19 03/19/24 03/19/24 History tablet,extended release spironolactone 50 mg tablet 50 mg PO DAILY 01/30/19 03/19/24 03/19/24 History semaglutide 1 mg/dose (2 mg/1.5 1 mg subcut WEEKLY 11/01/23 03/19/24 03/19/24 History mL) subcutaneous pen injector insulin regular hum U-500 conc 500 40 unit subcut DAILY 01/15/24 03/19/24 03/19/24 History unit/mL(3 mL) subcut pen (Humulin R U-500 (Conc) Insulin Kwikpen) fenofibrate 54 mg tablet 54 mg PO DAILY 02/11/24 03/19/24 03/19/24 History Allergies Allergy/AdvReac Type Severity Reaction Status Date / Time No Known Allergies Allergy Verified 03/19/24 12:14 Review of Systems 2 Review of Systems: All systems reviewed & are unremarkable except as noted in HPI and below PMFSH Past Medical History Medical History Chronic anticoagulation Chronic kidney disease, stage 4 (severe) Nonischemic cardiomyopathy Venous insufficiency Hypertension Insulin dependent type 2 diabetes mellitus Atrial fibrillation Vitamin D deficiency Urticaria Multiple myeloma poorly documented Mixed hyperlipidemia Asthma Basal cell carcinoma (BCC) of brow Surgical History Surgical History History of cardiac catheterization no obstructive disease per patient report History of cardioversion History of bilateral cataract extraction History of basal cell carcinoma excision History of arthroscopy of both knees History of colonoscopy with polypectomy Family History Family History Father Family history of emphysema, Onset Age: 69 Social History Social History Social History: Surrogate medical decision maker: Jose Isaac (son) or Josy Weston (sibling). Code status: Full code. Smoking status: Never smoker Alcohol intake: never Alcohol use details: social alcohol use in moderation Substance use: never Substance use type: does not use Do You Feel Safe in your Home?: Yes Lack of Transportation: No Lack of Food: Never True Current Housing: I Have Housing Concerned About Future Housing: No Difficulty Paying Gas/Electric Bills: No Difficulty Paying for Meds: No Currently Unemployed: No Education: Decline to Answer Difficulty w/ Childcare or Family Care: No Living arrangements: alone Additional living arrangements comments: the patient lives in his own home in [place] Occupation/Education: retired Spiritual care concerns: No Exam 2 Narrative: APPEARANCE: Well appearing, no pain, no distress, well-nourished. HEAD: normocephalic, atraumatic. EYES: PERRLA/EOMI, conjunctivae clear. NOSE: Normal no drainage EARS:TMS clear with good light reflex. THROAT: Pharynx clear, no exudate. NECK: Supple. No adenopathy, no masses. RESPIRATORY: Airway patent, respirations nonlabored. Clear to auscultation bilaterally, no rales, rhonchi, wheezing. CARDIOVASCULAR: Regular rate and rhythm without murmurs rubs or gallops. ABDOMINAL: Soft, nontender, nondistended, normal bowel sounds MUSCULOSKELETAL: Moves all extremities. Strength/ROM intact, No edema, No calf tenderness. NEURO: Alert. Cranial nerves II through XII intact. Grossly intact SKIN: Bilateral pressure ulcers on heels Course Vital Signs Vital signs: Vital Signs Temperature 97.6 F 03/19/24 11:00 Pulse Rate 82 03/19/24 11:00 Respiratory Rate 16 03/19/24 11:00 Blood Pressure 138/69 03/19/24 11:00 Pulse Oximetry 97 03/19/24 11:00 Temperature 97.6 F 03/19/24 11:00 Pulse Rate 86 03/19/24 12:32 Respiratory Rate 16 03/19/24 12:32 Blood Pressure 102/76 03/19/24 12:32 Pulse Oximetry 99 03/19/24 12:32 Oxygen Delivery Room Air 03/19/24 17:28 Medical Decision Making MDM Narrative Medical decision making narrative: 74-year-old male present to the emergency department from local rehab facility for evaluation for worsening wounds on his heels. No evidence of osteomyelitis on x-rays of the heels bilaterally but patient does have extensive skin breakdown with possible cellulitis. Patient was started on antibiotics in the emergency department with blood cultures pending. Case was discussed with hospitalist. Patient was comfortable the plan for admission. Patient was stable at time of admission. Differential Diagnosis Differential Diagnosis: Diabetic ulcer, hyperglycemia, sepsis, cellulitis, osteomyelitis Vital Signs Vital Signs: Vital Signs Temperature 97.6 F 03/19/24 11:00 Pulse Rate 82 03/19/24 11:00 Respiratory Rate 16 03/19/24 11:00 Blood Pressure 138/69 03/19/24 11:00 Pulse Oximetry 97 03/19/24 11:00 Temperature 97.6 F 03/19/24 11:00 Pulse Rate 86 03/19/24 12:32 Respiratory Rate 16 03/19/24 12:32 Blood Pressure 102/76 03/19/24 12:32 Pulse Oximetry 99 03/19/24 12:32 Oxygen Delivery Room Air 03/19/24 17:28 Lab Data Lab results reviewed: Yes I reviewed the patient's lab results. 03/19/24 11:33 03/19/24 11:33 Labs: Lab Results 03/19/24 Range/Units 11:33 WBC 17.5 H (4.5-10.0) K/mm3 RBC 2.58 L (4.6-6.20) M/mm3 Hgb 8.1 L (14.0-18.0) g/dL Hct 24.4 L (42.0-52.0) % MCV 94.6 (80-100) fl MCH 31.4 (26-34) pg MCHC 33.2 (32-36) g/dl RDW 15.9 H (11.5-14.5) % Plt Count 393 H D (150-375) k/mm3 MPV 9.8 (7.4-10.4) fl Immature Gran % (Auto) 2.6 H (0-0.5) % Neut % (Auto) 84.7 H (45.5-73.1) % Lymph % (Auto) 6.8 L (18.3-44.2) % [place] % (Auto) 5.7 (2.6-8.5) % Eos % (Auto) 0.0 (0-4.4) % Baso % (Auto) 0.2 (0.2-1.2) % Lymph # (Auto) 1.18 (0.9-3.2) K/mm3 [place] # (Auto) 1.0 H (0.1-0.6) K/mm3 Eos # (Auto) 0.0 (0-0.3) K/mm3 Baso # (Auto) 0.0 (0.0-0.1) K/mm3 Abs Immat Gran (auto) 0.46 H (0.00-0.031) K/mm3 Absolute Neuts (auto) 14.8 H (1.3-6.7) K/mm3 Absolute Nucleated RBC 0.000 (0.0-0.012) K/mm3 Nucleated RBC % 0.0 (0.0-0.2) % Sodium 129 L (137-145) mmol/L Potassium 5.2 H (3.4-5.0) mmol/L Chloride 98 (98-107) mmol/L Carbon Dioxide 29 (22-30) mmol/L Anion Gap 2 L (4-12) mmol/L BUN 47 H D (9-20) mg/dL Creatinine 2.10 H (0.7-1.3) mg/dL Estim Creat Clear Calc 41 ml/min Estimated GFR 31 L (59 - ) Glucose 296 H (65-110) mg/dL Calcium 8.5 (8.4-10.2) mg/dL Total Bilirubin 1.6 H (0.2-1.3) mg/dL AST 52 (17-59) U/L ALT 56 H (6-50) U/L Alkaline Phosphatase 236 H (38-126) U/L Total Protein 7.0 (6.3-8.2) g/dL Albumin 2.8 L (3.5-5.1) g/dL Imaging Data Radiologist's impression: Impressions Heel X-Ray 03/19/24 11:27 IMPRESSION: No acute osseous abnormality. Heel X-Ray 03/19/24 11:30 IMPRESSION: No acute osseous abnormality. Discharge Plan Discharge Clinical Impression: Diabetic foot ulcers Patient Disposition: Still a Patient Condition: Serious
--- NOTE | 2024-03-19 11:30 | PC.NURSE ---
This RN called [facility] to ask questions about wound care to bilateral feet. Wound care nurse supposed to call this RN back. Md Winn updated.
[2024-03-19 11:40] LABS: Basophils Percent Auto 0.2 % (0.2-1.2); Hematocrit 24.4 % (42.0-52.0); Hemoglobin 8.1 g/dL (14.0-18.0); Immature Granulocyte Absolute 0.46 K/mm3 (0.00-0.031); Immature Granulocyte Percent A 2.6 % (0-0.5); Lymphocytes Absolute Auto 1.18 K/mm3 (0.9-3.2); Lymphocytes Percent Auto 6.8 % (18.3-44.2); Mean Corpuscular HGB Conc 33.2 g/dl (32-36); Mean Corpuscular Hemoglobin 31.4 pg (26-34); Mean Corpuscular Volume 94.6 fl (80-100); Mean Platelet Volume 9.8 fl (7.4-10.4); Monocytes Percent Auto 5.7 % (2.6-8.5); Neutrophils Absolute Auto 14.8 K/mm3 (1.3-6.7); Neutrophils Percent Auto 84.7 % (45.5-73.1); Platelet Count Result 393 k/mm3 (150-375); Red Blood Count 2.58 M/mm3 (4.6-6.20); Red Cell Distribution Width 15.9 % (11.5-14.5); White Blood Count 17.5 K/mm3 (4.5-10.0)
[2024-03-19 11:51] LABS: Alanine Aminotransferase 56 U/L (6-50); Albumin Level 2.8 g/dL (3.5-5.1); Alkaline Phosphatase 236 U/L (38-126); Anion Gap 2 mmol/L (4-12); Aspartate Amino Transferase 52 U/L (17-59); Bilirubin,Total 1.6 mg/dL (0.2-1.3); Blood Urea Nitrogen 47 mg/dL (9-20); Calcium 8.5 mg/dL (8.4-10.2); Carbon Dioxide 29 mmol/L (22-30); Chloride 98 mmol/L (98-107); Estimated CRCL calculation 41 ml/min; Estimated Glomerular Filt Rate 31; Glucose 296 mg/dL (65-110); Potassium 5.2 mmol/L (3.4-5.0); Sodium 129 mmol/L (137-145)
--- NOTE | 2024-03-19 12:30 | PC.NURSE ---
Pt is A&Ox4, arrives in depend. Depend checked and clean at this time.
[2024-03-19] MEDS: CEFEPIME 2 GM/NS 50 ML 2 GM/50 ML BAG IVPB (12:31)
[2024-03-19 12:32] VITALS: BP 102/76; PULSE 86; RESP 16; O2SAT 99
[2024-03-19] MEDS: metroNIDAZOLE 500 MG/ISO 100ML 500 MG/100 ML BAG 100 MG IVPB ×2 (13:32→20:38)
--- NOTE | 2024-03-19 14:33 | PC.NURSE ---
Pt. continuously bends L. arm, occluding Iv infusion. Each time, pt. instructed to straighten arm. As a result, Flagyl infusion not completed at this time.
--- NOTE | 2024-03-19 15:06 | PC.NURSE ---
Report called to CHAUNCEY Reddy on med/surg. All questions answered.
--- NOTE | 2024-03-19 15:12 | P.HP_ITS ---
H&P: HPI History of Present Illness Date/Time: 03/19/24 14:30 Chief Complaint: Foot wound. Narrative: This is a 74-year-old male with multiple medical problems including atrial fibrillation, nonischemic cardiomyopathy, hypertension, hyperlipidemia, and insulin-dependent type 2 diabetes mellitus who presented to the emergency department via EMS from [facility] for evaluation of foot wounds. The patient provides the following history. He is known to myself and the hospitalist service from an admission a little over a month ago at which time he was admitted with generalized weakness, urinary tract infection, and an overall decline in functional status. He was discharged to [facility] for penitentiary rehab where he reports that he has been in bed a majority of the time and it does not sound as though he participates much in physical therapy. He has developed wounds on his feet which are being monitored by a wound nurse and that nurse was concerned today for infection and he was sent to the ED. Due to neuropathy he really does not have any pain in his feet. He is otherwise feeling okay and denies fever, chills, sweats, cold and flu symptoms, chest pain, shortness of breath, nausea, vomiting, diarrhea, and dysuria. In the ED: Vital signs were stable on arrival. Labs were significant for a WBC count of 17.5, hemoglobin 8.1, sodium 129, potassium 5.2, BUN 47, creatinine 2.10, glucose 296, albumin 2.8. X-rays of both heels showed no acute osseous abnormalities. He was started on antibiotics for suspected diabetic foot infection and he is being admitted in this setting. Review of Systems Review of Systems: 12 systems were reviewed and are negativ e except for as per HPI. [facility] Past Medical History Medical History (Updated 03/19/24 @ 18:24 by Rima Goss PA-C) Monoclonal gammopathy of unknown significance Chronic anticoagulation Chronic kidney disease, stage 4 (severe) Nonischemic cardiomyopathy Venous insufficiency Hypertension Insulin dependent type 2 diabetes mellitus Atrial fibrillation Vitamin D deficiency Urticaria Mixed hyperlipidemia Asthma Basal cell carcinoma (BCC) of brow Surgical History Surgical History History of cardiac catheterization no obstructive disease per patient report History of cardioversion History of bilateral cataract extraction History of basal cell carcinoma excision History of arthroscopy of both knees History of colonoscopy with polypectomy Family History Family History Father Family history of emphysema, Onset Age: 69 Social History Social History Social History: Surrogate medical decision maker: Jose Isaac (son) or Josy Weston (sibling). Code status: Full code. Smoking status: Never smoker Alcohol intake: never Alcohol use details: social alcohol use in moderation Substance use: never Substance use type: does not use Do You Feel Safe in your Home?: Yes Lack of Transportation: No Lack of Food: Never True Current Housing: I Have Housing Concerned About Future Housing: No Difficulty Paying Gas/Electric Bills: No Difficulty Paying for Meds: No Currently Unemployed: No Education: Decline to Answer Difficulty w/ Childcare or Family Care: No Living arrangements: alone Additional living arrangements comments: the patient lives in his own home in [place] Occupation/Education: retired Spiritual care concerns: No Meds Home Medications and Allergies Home Medications ?Medication ?Instructions ?Recorded ?Confirmed ?Type losartan 50 mg tablet 50 mg PO DAILY 01/30/19 03/19/24 History potassium chloride 20 mEq 20 meq PO DAILY 01/30/19 03/19/24 History tablet,extended release spironolactone 50 mg tablet 50 mg PO DAILY 01/30/19 03/19/24 History cholecalciferol (vitamin D3) 1,250 1,250 mcg PO WEEKLY #14 tabs 09/14/23 03/19/24 Rx mcg (50,000 unit) tablet semaglutide 1 mg/dose (2 mg/1.5 1 mg subcut WEEKLY 11/01/23 03/19/24 History mL) subcutaneous pen injector flash glucose sensor (FreeStyle #2 kits 11/24/23 03/19/24 Rx Germania 2 Sensor kit) pen needle, diabetic 32 gauge x #200 ea 12/13/23 03/19/24 Rx 5/32 (BD Lona 2nd Gen Pen Needle) glucagon 1 mg/0.2 mL subcutaneous 1 mg (0.2 mL) subcut ONCE #0.4 mL 01/15/24 03/19/24 Rx auto-injector (Gvoke HypoPen 2-Pack) insulin regular hum U-500 conc 500 40 unit subcut DAILY 01/15/24 03/19/24 History unit/mL(3 mL) subcut pen (Humulin R U-500 (Conc) Insulin Kwikpen) atorvastatin 80 mg tablet 80 mg PO DAILY #90 tabs 01/24/24 03/19/24 Rx fenofibrate 54 mg tablet 54 mg PO DAILY 02/11/24 03/19/24 History carvedilol 25 mg tablet 12.5 mg (1/2 x 25 mg) PO BID #60 02/16/24 03/19/24 Rx tabs furosemide 80 mg tablet 40 mg (1/2 x 80 mg) PO DAILY #15 02/16/24 03/19/24 Rx tabs warfarin 5 mg tablet 2.5 mg (1/2 x 5 mg) PO DAILY #15 02/16/24 03/19/24 Rx tabs Allergies Allergy/AdvReac Type Severity Reaction Status Date / Time No Known Allergies Allergy Verified 03/19/24 12:14 Vital Signs Vital Signs - 24 hr 03/19/24 11:00 03/19/24 12:32 Temperature 97.6 F Pulse Rate 82 86 Respiratory Rate 16 16 Blood Pressure 138/69 102/76 Pulse Oximetry 97 99 Exam Narrative: General: Chronically ill-appearing male in the semi-Cat position in bed. Weight: 134.9 kg. BMI: 37.2. HEENT: Normocephalic, atraumatic. PERRL, EOMI. Sclera anicteric. Tacky mucous membranes. Neck: Supple. No JVD or lymphadenopathy. Respiratory: Respirations are nonlabored and lungs are clear to auscultation. Cardiovascular: Irregularly irregular rate and rhythm. Gastrointestinal: Abdomen is soft, protuberant, nontender, and nondistended with positive bowel sounds. Skin: Warm and dry. Generalized pallor. Extremities: No cyanosis or clubbing. Legs are large with pitting edema which seems to be less severe compared to last month. Chronic skin changes of bilateral lower legs consistent with venous stasis dermatitis. there is a pressure ulcer on the right heel and a large ulcerated area on the plantar aspect of the left foot extending laterally. The webspace between the left 4th and 5th toes has a small amount of discharge in the left 5th toe was erythematous and warm, extending to the lateral dorsal aspect of the foot. He has limited sensation and has no pain with palpation of the wounds. Diminished pulses in the feet. Neurological: Alert and oriented. Cranial nerves 2-12 are grossly intact. No pronator drift. He can barely lift his legs off the bed 1 in before letting them fall. This is a chronic finding. Hand microphone boom operator are equal bilaterally. No focal strength deficits in the upper extremities. Sensation diminished in the lower extremities. Psychiatric: Pleasant and cooperative with appropriate mood and flat affect. H&P: Results Labs Labs: Short CBC 03/19/24 Range/Units 11:33 WBC 17.5 H (4.5-10.0) K/mm3 Hgb 8.1 L (14.0-18.0) g/dL Hct 24.4 L (42.0-52.0) % Plt Count 393 H D (150-375) k/mm3 BMP 03/19/24 11:33 Sodium 129 L Potassium 5.2 H Chloride 98 Carbon Dioxide 29 BUN 47 H D Creatinine 2.10 H Glucose 296 H Calcium 8.5 Liver Function 03/19/24 Range/Units 11:33 Total Bilirubin 1.6 H (0.2-1.3) mg/dL AST 52 (17-59) U/L ALT 56 H (6-50) U/L Alkaline Phosphatase 236 H (38-126) U/L Albumin 2.8 L (3.5-5.1) g/dL Impressions Heel X-Ray 03/19/24 11:27 IMPRESSION: No acute osseous abnormality. Heel X-Ray 03/19/24 11:30 IMPRESSION: No acute osseous abnormality. 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 insulin Status: Acute (3) Chronic kidney disease, stage 4 (severe): Code(s): N18.4 - Chronic kidney disease, stage 4 (severe) Status: Acute (4) Hyperkalemia: Code(s): E87.5 - Hyperkalemia Status: Acute (5) Anemia: Code(s): D64.9 - Anemia, unspecified Status: Acute (6) Nonischemic cardiomyopathy: Code(s): I42.8 - Other cardiomyopathies Status: Acute (7) Hypertension: Code(s): I10 - Essential (primary) hypertension Status: Acute (8) Atrial fibrillation: Code(s): I48.91 - Unspecified atrial fibrillation Status: Acute (9) Chronic anticoagulation: Code(s): Z79.01 - longterm (current) use of anticoagulants Status: Acute Plan The patient presented to the emergency department for evaluation of worsening foot wounds as detailed in HPI. Labs, imaging, EKG, and all reports were personally reviewed. He does appear to have cellulitic changes over the left 5th digit with erythema and warmth extending onto the dorsum of the left lateral foot for which he has been started on broad-spectrum antibiotics. Wound nurse has been consulted for recommendations. I suspect the patient has poor nutritional status with his low albumin level and anemia. We discussed the importance of good nutrition and maintaining euglycemia to promote healing. Check iron studies, B12, folate, and pre-albumin. Continue basal insulin. Initiate sliding scale insulin, Accu-Cheks, and hypoglycemic protocol. He looks a bit dry on exam and will be given a liter of normal saline overnight. Potassium is a bit high but should improve with fluids however will hold losartan, potassium supplement, and spironolactone for now. Continue to monitor volume status closely with daily weights and I/O. Continue warfarin and monitor INR. Check stool for occult blood given slow decline in his hemoglobin. His home medications will be reviewed and resumed as appropriate. Findings and treatment plan were discussed with the patient. Questions were solicited and answered to satisfaction. The patient's medical management will be taken over by the hospitalist team in a.m. Quality VTE Prophylaxis VTE prophylaxis: pharmacologic ordered (on warfarin) The patient has been admitted under observation status. Hospitalist MIPS Advance Care Plan I have confirmed that the patient's Advanced Care Plan is present, code status is documented, or surrogate decision maker is listed in patient medical record.: Yes Medication Reconciliation I have utilized all available resources to obtain, update and review the patients current medications (includes all prescriptions, OTC, herbals, cannabis, and nutritional supplements).: Yes
[2024-03-19 15:30] VITALS: BMI 37.1
--- NOTE | 2024-03-19 15:30 | PC.NURSE ---
This patient, Erwin Isaac, was admitted to 3 [facility] Surg Room 331-01. Patient/family oriented to hospital policies and general routines including ID bracelet, bed and alarms, visiting hours, pain management, procedures, bathroom and other care routines, personal items, smoking policy, room service/diet, and visiting hours. Information on how to activate the Rapid Response Team has been discussed. Patient/Family are encouraged to report perceived risks to care and to ask questions if they do not understand what they are told or what they should do.
[2024-03-19] MEDS: VANCOMYCIN 1,250 MG/NS 250 ML 1,250 MG/250 ML BAG 166.67 MG IVPB ×2 (16:00→17:38)
[2024-03-19 16:40] LABS: Glucose Point of Care 207 mg/dl (65-105)
[2024-03-19 19:16] LABS: Prealbumin 4.5 mg/dL (17.6-36.0)
[2024-03-19 19:22] LABS: Anion Gap 2 mmol/L (4-12); Blood Urea Nitrogen 49 mg/dL (9-20); Calcium 8.3 mg/dL (8.4-10.2); Carbon Dioxide 28 mmol/L (22-30); Chloride 100 mmol/L (98-107); Creatine Kinase 62 U/L (55-170); Estimated CRCL calculation 44 ml/min; Estimated Glomerular Filt Rate 33; Glucose 244 mg/dL (65-110); Magnesium 1.9 mg/dL (1.6-2.3); Potassium 5.1 mmol/L (3.4-5.0); Sodium 130 mmol/L (137-145)
[2024-03-19 19:49] LABS: Prothrombin Time 102.2 Seconds (11.1-14.7)
[2024-03-19 19:52] LABS: INR 13.9
[2024-03-19 20:16] LABS: Folic Acid 5.3 ng/mL (2.76->20)
[2024-03-19] MEDS: CEFEPIME 1 GM/NS 50 ML 1 GM/50 ML BAG IVPB (20:38)
[2024-03-19 20:41] LABS: Iron 28 ug/dL (49-181)
[2024-03-19 20:57] LABS: Percent Iron Saturation 15 % (20-50); TOTAL IRON BINDING CAPACITY 190 ug/dL (265-497)
[2024-03-19 21:15] VITALS: BP 143/65; PULSE 103; RESP 16; TEMP 37.7; O2SAT 98
[2024-03-19 21:21] LABS: Glucose Point of Care 249 mg/dl (65-105)
[2024-03-19 21:30] VITALS: PULSE 103
[2024-03-19] MEDS: ACETAMINOPHEN 325 MG TABLET 650 MG PO (21:30)
[2024-03-19] MEDS: carvediloL 12.5 MG TABLET PO (21:30)
[2024-03-19] MEDS: PHYTONADIONE 5 MG TABLET PO (21:31)
[2024-03-19 21:38] LABS: Thyroid Stimulating Hormone Reflex 0.649 uIU/mL (0.465-4.68)
[2024-03-19] MEDS: INSULIN ASPART (*BKC) 100 UNITS/ML SUB-Q (21:38)
[2024-03-19] MEDS: SODIUM CHLORIDE 0.9% IV 1,000 ML 999 ML IV CONT (22:23)
[2024-03-19] MEDS: SODIUM CHLORIDE 0.9% IV 1,000 ML 100 ML IV CONT (23:27)
[2024-03-19 23:35] VITALS: BP 116/53; PULSE 81; RESP 18; TEMP 37.2; O2SAT 97
[2024-03-20] MEDS: metroNIDAZOLE 500 MG/ISO 100ML 500 MG/100 ML BAG 100 MG IVPB ×3 (04:04→20:18)
[2024-03-20 05:20] VITALS: BP 154/72; PULSE 82; RESP 16; TEMP 36.4; O2SAT 97
[2024-03-20 07:16] LABS: Hematocrit 21.4 % (42.0-52.0); Hemoglobin 7.1 g/dL (14.0-18.0); Mean Corpuscular HGB Conc 33.2 g/dl (32-36); Mean Corpuscular Volume 96.4 fl (80-100); Mean Platelet Volume 10.3 fl (7.4-10.4); Platelet Count Result 330 k/mm3 (150-375); Red Blood Count 2.22 M/mm3 (4.6-6.20); Red Cell Distribution Width 16.1 % (11.5-14.5); White Blood Count 14.2 K/mm3 (4.5-10.0)
[2024-03-20 07:21] LABS: Alanine Aminotransferase 48 U/L (6-50); Albumin Level 2.3 g/dL (3.5-5.1); Alkaline Phosphatase 206 U/L (38-126); Anion Gap 0 mmol/L (4-12); Aspartate Amino Transferase 51 U/L (17-59); Bilirubin,Total 1.5 mg/dL (0.2-1.3); Blood Urea Nitrogen 47 mg/dL (9-20); Carbon Dioxide 27 mmol/L (22-30); Chloride 104 mmol/L (98-107); Estimated CRCL calculation 44 ml/min; Estimated Glomerular Filt Rate 33; Glucose 189 mg/dL (65-110); Magnesium 1.9 mg/dL (1.6-2.3); Prothrombin Time 87.1 Seconds (11.1-14.7); Sodium 131 mmol/L (137-145)
[2024-03-20 07:23] LABS: Partial Thromboplastin Time 129.6 Seconds (22.3-36.8)
[2024-03-20 07:30] LABS: INR 11.3
[2024-03-20 08:07] LABS: Glucose Point of Care 200 mg/dl (65-105)
--- NOTE | 2024-03-20 08:37 | P.PNIM_ITS ---
Progress Note: A&P Assessment and Plan (1) Diabetic foot ulcers: Code(s): E11.621 - Type 2 diabetes mellitus with foot ulcer; L97.509 - Non-pressure chronic ulcer of other part of unspecified foot with unspecified severity Status: Acute Assessment and Plan: -cellulitic changes over the left 5th digit with erythema and warmth extending onto the dorsum of the left lateral foot started on broad-spectrum antibiotics Wound nurse has been consulted for recommendations. (2) Insulin dependent type 2 diabetes mellitus: Code(s): E11.9 - Type 2 diabetes mellitus without complications; Z79.4 - adjunct faculty for medical terminology (current) use of insulin Status: Acute Assessment and Plan: Continue basal insulin. Initiate sliding scale insulin, Accu-Cheks, and hypoglycemic protocol. (3) Chronic kidney disease, stage 4 (severe): Code(s): N18.4 - Chronic kidney disease, stage 4 (severe) Status: Acute (4) Hyperkalemia: Code(s): E87.5 - Hyperkalemia Status: Acute Assessment and Plan: receieved a liter of normal saline overnight. Potassium is a bit high but should improve with fluids however will hold losartan, potassium supplement, and spironolactone for now poor nutrition-order supplements (5) Anemia: Code(s): D64.9 - Anemia, unspecified Status: Acute Assessment and Plan: Check iron studies, B12, folate, and pre-albumin. . Continue to monitor volume status closely with daily weights and I/O. Continue warfarin and monitor INR stool occult blood is ordered (6) Nonischemic cardiomyopathy: Code(s): I42.8 - Other cardiomyopathies Status: Acute (7) Hypertension: Code(s): I10 - Essential (primary) hypertension Status: Acute (8) Atrial fibrillation: Code(s): I48.91 - Unspecified atrial fibrillation Status: Acute Assessment and Plan: holding Coumadin for now (9) Chronic anticoagulation: Code(s): Z79.01 - adjunct faculty for medical terminology (current) use of anticoagulants Status: Acute Assessment and Plan: inr- 13.9 on 03/19- vit k x 1 dose was goven 03/20- inr is down to 11.3- will order vit k x 1 5 mg po close monitor stool for occult is ordered-follow no s/s of bleeding holding coumadin Plan The patient presented to the emergency department for evaluation of worsening foot wounds as detailed in HPI. Labs, imaging, EKG, and all reports were personally reviewed. I suspect the patient has poor nutritional status with his low albumin level and anemia. We discussed the importance of good nutrition and maintaining euglycemia to promote healing. Time Spent With Patient Time with patient: Greater than 35 minutes Subjective Date/time seen: 03/20/24 08:37 Interval history: This is a 74-year-old male with multiple medical problems including atrial fibrillation, nonischemic cardiomyopathy, hypertension, hyperlipidemia, and insulin-dependent type 2 diabetes mellitus who presented to the emergency dep artment via EMS from [facility] for evaluation of foot wounds. The patient provides the following history. He is known to myself and the hospitalist service from an admission a little over a month ago at which time he was admitted with generalized weakness, urinary tract infection, and an overall decline in functional status. He was discharged to [facility] for [facility] rehab where he reports that he has been in bed a majority of the time and it does not sound as though he participates much in physical therapy. He has developed wounds on his feet which are being monitored by a wound nurse and that nurse was concerned today for infection and he was sent to the ED. Due to neuropathy he really does not have any pain in his feet. He is otherwise feeling okay and denies fever, chills, sweats, cold and flu symptoms, chest pain, shortness of breath, nausea, vomiting, diarrhea, and dysuria. In the ED: Vital signs were stable on arrival. Labs were significant for a WBC count of 17.5, hemoglobin 8.1, sodium 129, potassium 5.2, BUN 47, creatinine 2.10, glucose 296, albumin 2.8. X-rays of both heels showed no acute osseous abnormalities. He was started on antibiotics for suspected diabetic foot infection and he is being admitted in this setting. pt is seen and examined. Pt is alert, oriented, in no distress. Review of Systems Review of Systems: 12 systems were reviewed and are negativ e except for as per HPI. Exam Narrative: General: Chronically ill-appearing male in the semi-Cat position in bed. Weight: 134.9 kg. BMI: 37.2. HEENT: Normocephalic, atraumatic. PERRL, EOMI. Sclera anicteric. Tacky mucous membranes. Neck: Supple. No JVD or lymphadenopathy. Respiratory: Respirations are nonlabored and lungs are clear to auscultation. Cardiovascular: Irregularly irregular rate and rhythm. Gastrointestinal: Abdomen is soft, protuberant, nontender, and nondistended with positive bowel sounds. Skin: Warm and dry. Generalized pallor. Extremities: No cyanosis or clubbing. Legs are large with pitting edema which seems to be less severe compared to last month. Chronic skin changes of bilateral lower legs consistent with venous stasis dermatitis. there is a pressure ulcer on the right heel and a large ulcerated area on the plantar aspect of the left foot extending laterally. The webspace between the left 4th and 5th toes has a small amount of discharge in the left 5th toe was erythematous and warm, extending to the lateral dorsal aspect of the foot. He has limited sensation and has no pain with palpation of the wounds. Diminished pulses in the feet. Neurological: Alert and oriented. Cranial nerves 2-12 are grossly intact. No pronator drift. He can barely lift his legs off the bed 1 in before letting them fall. This is a chronic finding. Hand leather leveler are equal bilaterally. No focal strength deficits in the upper extremities. Sensation diminished in the lower extremities. Psychiatric: Pleasant and cooperative with appropriate mood and flat affect. Objective Data Vital Signs Vital Signs: Vital Signs - 24 hr 03/19/24 11:00 03/19/24 12:32 03/19/24 17:28 Temperature 97.6 F Pulse Rate 82 86 Respiratory Rate 16 16 Blood Pressure 138/69 102/76 Pulse Oximetry 97 99 Oxygen Delivery Room Air 03/19/24 20:11 03/19/24 21:15 03/19/24 21:30 Temperature 99.9 F H Pulse Rate 103 H 103 H Respiratory Rate 16 Blood Pressure 143/65 H Pulse Oximetry 98 Oxygen Delivery Room Air 03/19/24 23:35 03/20/24 05:20 Temperature 98.9 F 97.5 F L Pulse Rate 81 82 Respiratory Rate 18 16 Blood Pressure 116/53 L 154/72 H Pulse Oximetry 97 97 Oxygen Delivery Intake/Output Intake/Output: Intake & Output 03/17/24 03/18/24 03/19/24 03/20/24 23:59 23:59 23:59 23:59 Intake Total 2420 500 Output Total 350 Balance 2420 150 Meds/Results Medications: Active Medications Generic Name Dose Route Start Last Admin Trade Name Freq PRN Reason Stop Dose Admin Acetaminophen 650 mg 03/19/24 20:56 03/19/24 21:30 Acetaminophen 325 Mg Tablet PO 650 mg Q6H PRN Administration Mild Pain (1-3) or Fever Atorvastatin Calcium 80 mg 03/20/24 09:00 Atorvastatin 40 Mg Tablet PO DAILY CARMELA Carvedilol 12.5 mg 03/19/24 21:00 03/19/24 21:30 Carvedilol 12.5 Mg Tablet PO 12.5 mg Q12HR CARMELA Administration Dextrose 12.5 gm 03/19/24 17:24 Dextrose 50% 25 Gm/50 Ml Syringe IV PUSH PRN PRN Hypoglycemia Protocol Furosemide 40 mg 03/20/24 09:00 Furosemide 40 Mg Tablet PO DAILY CARMELA Glucagon 1 mg 03/19/24 17:24 Glucagon For Inj 1 Mg Vial IM PRN PRN Hypoglycemia Protocol Glucose 15 gm 03/19/24 17:24 Glucose Oral Gel 15 Gm Of Glucse In 37.5 Gm Tube PO PRN PRN Hypoglycemia Protocol Metronidazole 500 mg in 100 mls @ 100 mls/hr 03/19/24 20:00 03/20/24 05:04 Flagyl 500 Mg/Iso Soln 100 Ml IVPB Infused Q8H CARMELA Infusion Cefepime HCl 1 gm in 50 mls @ 100 mls/hr 03/19/24 21:00 03/19/24 21:08 Maxipime 1 Gm/Ns 50 Ml IVPB Infused Q12HR CARMELA Infusion Vancomycin HCl 1,500 mg in 500 mls @ 250 mls/hr 03/20/24 16:00 Vancomycin 1,500 Mg/Ns 500 Ml IVPB Q24H CARMELA Dextrose 1,000 mls @ 100 mls/hr 03/19/24 17:24 Dextrose 5% 1,000 Ml IVPB PRN PRN Hypoglycemia Protocol Sodium Chloride 1,000 mls @ 100 mls/hr 03/19/24 23:05 03/19/24 23:27 Normal Saline Iv IV CONT 03/20/24 09:04 100 mls/hr .Q10H ONE Administration Insulin Aspart 2 - 4 units 03/19/24 21:00 03/19/24 21:38 Insulin Aspart (*Bkc) 100 Units/Ml SUB-Q 2 units HS CARMELA Administration Protocol Insulin Aspart 4 - 8 units 03/20/24 08:00 Insulin Aspart (*Bkc) 100 Units/Ml SUB-Q TIDWM [facility] Protocol Insulin Human Regular 40 units 03/20/24 08:00 Insulin Human Regular (*Bkc) 100 Units/Ml SUB-Q DAILY@0800 [facility] Warfarin Sodium 1.25 mg 03/19/24 17:00 03/19/24 20:09 Warfarin (*Pbkc) 1.25 Mg Tablet PO Not Given SuTuThSa@1700 [facility] Radiology Results: ITS Impressions Heel X-Ray 03/19/24 11:30 IMPRESSION: No acute osseous abnormality. Labs Labs: Laboratory Results - last 24 hr 03/19/24 03/19/24 03/19/24 11:33 16:35 18:53 WBC 17.5 H RBC 2.58 L Hgb 8.1 L Hct 24.4 L MCV 94.6 MCH 31.4 MCHC 33.2 RDW 15.9 H Plt Count 393 H D MPV 9.8 Immature Gran % (Auto) 2.6 H Neut % (Auto) 84.7 H Lymph % (Auto) 6.8 L [place] % (Auto) 5.7 Eos % (Auto) 0.0 Baso % (Auto) 0.2 Lymph # (Auto) 1.18 [place] # (Auto) 1.0 H Eos # (Auto) 0.0 Baso # (Auto) 0.0 Abs Immat Gran (auto) 0.46 H Absolute Neuts (auto) 14.8 H Absolute Nucleated RBC 0.000 Nucleated RBC % 0.0 PT INR APTT Sodium 129 L 130 L Potassium 5.2 H 5.1 H Chloride 98 100 Carbon Dioxide 29 28 Anion Gap 2 L 2 L BUN 47 H D 49 H Creatinine 2.10 H 2.00 H Estim Creat Clear Calc 41 44 Estimated GFR 31 L 33 L Glucose 296 H 244 H POC Capillary Glucose 207 H Calcium 8.5 8.3 L Magnesium 1.9 Iron 28 L TIBC 190 L % Saturation 15 L Ferritin 1490.00 H Total Bilirubin 1.6 H AST 52 ALT 56 H Alkaline Phosphatase 236 H Total Creatine Kinase 62 Total Protein 7.0 Albumin 2.8 L Prealbumin 4.5 L Vitamin B12 597.0 Folate 5.3 TSH (Reflex) 0.649 03/19/24 03/19/24 03/20/24 19:32 21:17 06:56 WBC 14.2 H RBC 2.22 L Hgb 7.1 L Hct 21.4 L MCV 96.4 MCH 32.0 MCHC 33.2 RDW 16.1 H Plt Count 330 MPV 10.3 Immature Gran % (Auto) Neut % (Auto) Lymph % (Auto) Redwood % (Auto) Eos % (Auto) Baso % (Auto) Lymph # (Auto) [place] # (Auto) Eos # (Auto) Baso # (Auto) Abs Immat Gran (auto) Absolute Neuts (auto) Absolute Nucleated RBC Nucleated RBC % PT 102.2 H 87.1 H INR 13.9 H* 11.3 H* APTT 129.6 H Sodium 131 L Potassium 5.0 Chloride 104 Carbon Dioxide 27 Anion Gap 0 L BUN 47 H Creatinine 2.00 H Estim Creat Clear Calc 44 Estimated GFR 33 L Glucose 189 H POC Capillary Glucose 249 H Calcium 8.0 L Magnesium 1.9 Iron TIBC % Saturation Ferritin Total Bilirubin 1.5 H AST 51 ALT 48 Alkaline Phosphatase 206 H Total Creatine Kinase Total Protein 6.0 L Albumin 2.3 L Prealbumin Vitamin B12 Folate TSH (Reflex) 03/20/24 08:01 WBC RBC Hgb Hct MCV MCH MCHC RDW Plt Count MPV Immature Gran % (Auto) Neut % (Auto) Lymph % (Auto) [place] % (Auto) Eos % (Auto) Baso % (Auto) Lymph # (Auto) [place] # (Auto) Eos # (Auto) Baso # (Auto) Abs Immat Gran (auto) Absolute Neuts (auto) Absolute Nucleated RBC Nucleated RBC % PT INR APTT Sodium Potassium Chloride Carbon Dioxide Anion Gap BUN Creatinine Estim Creat Clear Calc Estimated GFR Glucose POC Capillary Glucose 200 H Calcium Magnesium Iron TIBC % Saturation Ferritin Total Bilirubin AST ALT Alkaline Phosphatase Total Creatine Kinase Total Protein Albumin Prealbumin Vitamin B12 Folate TSH (Reflex) Quality VTE Prophylaxis VTE prophylaxis: pharmacologic ordered (on warfarin)
[2024-03-20 08:46] VITALS: PULSE 82
[2024-03-20] MEDS: FUROSEMIDE 40 MG TABLET PO (08:46)
[2024-03-20] MEDS: carvediloL 12.5 MG TABLET PO ×2 (08:46→20:25)
[2024-03-20] MEDS: ATORVASTATIN 40 MG TABLET 80 MG PO (08:46)
[2024-03-20] MEDS: CEFEPIME 1 GM/NS 50 ML 1 GM/50 ML BAG IVPB ×2 (08:47→20:20)
[2024-03-20] MEDS: INSULIN HUMAN REGULAR (*BKC) 100 UNITS/ML 40 UNITS SUB-Q (08:50)
[2024-03-20] MEDS: PHYTONADIONE 5 MG TABLET PO (09:07)
[2024-03-20 10:41] LABS: IFOB Positive Control Positive; Immunochemical Fecal Occult Bl Negative (N)
[2024-03-20 11:38] LABS: Glucose Point of Care 245 mg/dl (65-105)
[2024-03-20] MEDS: SOD HYPOCHLORITE 1/4 STRENGTH 473 ML 1 APPLIC TOPICAL ×2 (13:04→20:26)
[2024-03-20] MEDS: INSULIN ASPART (*BKC) 100 UNITS/ML SUB-Q (13:05)
[2024-03-20 13:34] VITALS: BMI 37.9
[2024-03-20 14:00] VITALS: PULSE 68; RESP 18; TEMP 37.1; O2SAT 97
[2024-03-20 16:38] LABS: Glucose Point of Care 156 mg/dl (65-105)
[2024-03-20] MEDS: VANCOMYCIN 1,500 MG/NS 500 ML 1,500 MG/500 ML BAG 250 MG IVPB (16:59)
[2024-03-20 20:25] VITALS: PULSE 88
[2024-03-20] MEDS: ACETAMINOPHEN 325 MG TABLET 650 MG PO (20:32)
[2024-03-20 20:52] LABS: Glucose Point of Care 151 mg/dl (65-105)
[2024-03-20 21:04] VITALS: BP 116/70; PULSE 88; RESP 18; TEMP 37.2; O2SAT 97
[2024-03-21] VITALS (10 sets, daily range): BP systolic 102–134; BP diastolic 56–67; PULSE 77–97; RESP 16–20; TEMP 36.7–38.2; O2SAT 96–99
[2024-03-21] MEDS: metroNIDAZOLE 500 MG/ISO 100ML 500 MG/100 ML BAG 100 MG IVPB ×2 (04:45→13:03)
[2024-03-21 07:27] LABS: Glucose Point of Care 127 mg/dl (65-105)
[2024-03-21 08:12] LABS: INR 2.4; Prothrombin Time 27.2 Seconds (11.1-14.7)
[2024-03-21] MEDS: CEFEPIME 1 GM/NS 50 ML 1 GM/50 ML BAG IVPB ×2 (10:11→20:49)
[2024-03-21] MEDS: carvediloL 12.5 MG TABLET PO ×2 (10:12→21:15)
[2024-03-21] MEDS: ATORVASTATIN 40 MG TABLET 80 MG PO (10:12)
[2024-03-21] MEDS: FUROSEMIDE 40 MG TABLET PO (10:13)
[2024-03-21] MEDS: SOD HYPOCHLORITE 1/4 STRENGTH 473 ML 1 APPLIC TOPICAL ×2 (10:14→20:49)
[2024-03-21] MEDS: INSULIN HUMAN REGULAR (*BKC) 100 UNITS/ML 40 UNITS SUB-Q (10:18)
--- NOTE | 2024-03-21 10:19 | PM.IMPN ---
Progress Note: A&P Assessment and Plan (1) Diabetic foot ulcers: Code(s): E11.621 - Type 2 diabetes mellitus with foot ulcer; L97.509 - Non-pressure chronic ulcer of other part of unspecified foot with unspecified severity Status: Acute Assessment and Plan: -cellulitic changes over the left 5th digit with erythema and warmth extending onto the dorsum of the left lateral foot started on broad-spectrum antibiotics Wound nurse has been consulted for recommendations. (2) Insulin dependent type 2 diabetes mellitus: Code(s): E11.9 - Type 2 diabetes mellitus without complications; Z79.4 - predatory animal exterminator (current) use of insulin Status: Acute Assessment and Plan: Continue basal insulin. Initiate sliding scale insulin, Accu-Cheks, and hypoglycemic protocol. (3) Chronic kidney disease, stage 4 (severe): Code(s): N18.4 - Chronic kidney disease, stage 4 (severe) Status: Acute (4) Hyperkalemia: Code(s): E87.5 - Hyperkalemia Status: Acute Assessment and Plan: receieved a liter of normal saline overnight. Potassium is a bit high but should improve with fluids however will hold losartan, potassium supplement, and spironolactone for now poor nutrition-order supplements (5) Anemia: Code(s): D64.9 - Anemia, unspecified Status: Acute Assessment and Plan: Check iron studies, B12, folate, and pre-albumin. . Continue to monitor volume status closely with daily weights and I/O. Continue warfarin and monitor INR stool occult blood is ordered (6) Nonischemic cardiomyopathy: Code(s): I42.8 - Other cardiomyopathies Status: Acute (7) Hypertension: Code(s): I10 - Essential (primary) hypertension Status: Acute (8) Atrial fibrillation: Code(s): I48.91 - Unspecified atrial fibrillation Status: Acute Assessment and Plan: holding Coumadin for now (9) Chronic anticoagulation: Code(s): Z79.01 - predatory animal exterminator (current) use of anticoagulants Status: Acute Assessment and Plan: inr- 13.9 on 03/19- vit k x 1 dose was given 03/20- inr is down to 11.3- will order vit k x 1 5 mg po close monitor stool for occult is ordered-follow no s/s of bleeding holding coumadin 03/21- INR 2.4 today- but hg dropped to 6.8-so will not restart at this time stool for occult blood negative pt recently had egd/colonscopy- polyps were found -will consult GI and monitor for now Time Spent With Patient Time with patient: Greater than 35 minutes Subjective Date/time seen: 03/21/24 10:19 Interval history: This is a 74-year-old male with multiple medical problems including atrial fibrillation, nonischemic cardiomyopathy, hypertension, hyperlipidemia, and insulin-dependent type 2 diabetes mellitus who presented to the emergency department via EMS from [facility] for evaluation of foot wounds. The patient provides the following history. He is known to myself and the hospitalist service from an admission a little over a month ago at which time he was admitted with generalized weakness, urinary tract infection, and an overall decline in functional status. He was discharged to [facility] for [facility] where he reports that he has been in bed a majority of the time and it does not sound as though he participates much in physical therapy. He has developed wounds on his feet which are being monitored by a wound nurse and that nurse was concerned today for infection and he was sent to the ED. Due to neuropathy he really does not have any pain in his feet. He is otherwise feeling okay and denies fever, chills, sweats, cold and flu symptoms, chest pain, shortness of breath, nausea, vomiting, diarrhea, and dysuria. In the ED: Vital signs were stable on arrival. Labs were significant for a WBC count of 17.5, hemoglobin 8.1, sodium 129, potassium 5.2, BUN 47, creatinine 2.10, glucose 296, albumin 2.8. X-rays of both heels showed no acute osseous abnormalities. He was started on antibiotics for suspected diabetic foot infection and he is being admitted in this setting. pt is seen and examined. Pt is alert, oriented, in no distress. 03/21= seen this am. Doing well, no acute complains. no chills, no chest pain. IV antibiotics Review of Systems Review of Systems: 12 systems were reviewed and are negative except for as per HPI. Exam Narrative: General: Chronically ill-appearing male in the semi-Cat position in bed. Weight: 134.9 kg. BMI: 37.2. HEENT: Normocephalic, atraumatic. PERRL, EOMI. Sclera anicteric. Tacky mucous membranes. Neck: Supple. No JVD or lymphadenopathy. Respiratory: Respirations are nonlabored and lungs are clear to auscultation. Cardiovascular: Irregularly irregular rate and rhythm. Gastrointestinal: Abdomen is soft, protuberant, nontender, and nondistended with positive bowel sounds. Skin: Warm and dry. Generalized pallor. Extremities: No cyanosis or clubbing. Legs are large with pitting edema which seems to be less severe compared to last month. Chronic skin changes of bilateral lower legs consistent with venous stasis dermatitis. there is a pressure ulcer on the right heel and a large ulcerated area on the plantar aspect of the left foot extending laterally. The webspace between the left 4th and 5th toes has a small amount of discharge in the left 5th toe was erythematous and warm, extending to the lateral dorsal aspect of the foot. He has limited sensation and has no pain with palpation of the wounds. Diminished pulses in the feet. Neurological: Alert and oriented. Cranial nerves 2-12 are grossly intact. No pronator drift. He can barely lift his legs off the bed 1 in before letting them fall. This is a chronic finding. Hand appellate law clerk are equal bilaterally. No focal strength deficits in the upper extremities. Sensation diminished in the lower extremities. Psychiatric: Pleasant and cooperative with appropriate mood and flat affect. Objective Data Vital Signs Vital Signs: Vital Signs - 24 hr 03/20/24 14:00 03/20/24 20:08 03/20/24 20:25 Temperature 98.8 F Pulse Rate 68 88 Respiratory Rate 18 Blood Pressure Pulse Oximetry 97 Oxygen Delivery Room Air 03/20/24 21:04 03/21/24 06:00 03/21/24 10:12 Temperature 98.9 F 98.1 F Pulse Rate 88 85 82 Respiratory Rate 18 18 Blood Pressure 116/70 118/65 Pulse Oximetry 97 98 Oxygen Delivery Intake/Output Intake/Output: Intake & Output 03/18/24 03/19/24 03/20/24 03/21/24 23:59 23:59 23:59 23:59 Intake Total 2420 2020 1040 Output Total 350 1600 Balance 2420 1670 -560 Meds/Results Medications: Active Medications Generic Name Dose Route Start Last Admin Trade Name Freq PRN Reason Stop Dose Admin Acetaminophen 650 mg 03/19/24 20:56 03/20/24 20:32 Acetaminophen 325 Mg Tablet PO 650 mg Q6H PRN Administration Mild Pain (1-3) or Fever Atorvastatin Calcium 80 mg 03/20/24 09:00 03/21/24 10:12 Atorvastatin 40 Mg Tablet PO 80 mg DAILY CARMELA Administration Carvedilol 12.5 mg 03/19/24 21:00 03/21/24 10:12 Carvedilol 12.5 Mg Tablet PO 12.5 mg Q12HR CARMELA Administration Dextrose 12.5 gm 03/19/24 17:24 Dextrose 50% 25 Gm/50 Ml Syringe IV PUSH PRN PRN Hypoglycemia Protocol Furosemide 40 mg 03/20/24 09:00 03/21/24 10:13 Furosemide 40 Mg Tablet PO 40 mg DAILY CARMELA Administration Glucagon 1 mg 03/19/24 17:24 Glucagon For Inj 1 Mg Vial IM PRN PRN Hypoglycemia Protocol Glucose 15 gm 03/19/24 17:24 Glucose Oral Gel 15 Gm Of Glucse In 37.5 Gm Tube PO PRN PRN Hypoglycemia Protocol Metronidazole 500 mg in 100 mls @ 100 mls/hr 03/19/24 20:00 03/21/24 05:45 Flagyl 500 Mg/Iso Soln 100 Ml IVPB Infused Q8H CARMELA Infusion Cefepime HCl 1 gm in 50 mls @ 100 mls/hr 03/19/24 21:00 03/21/24 10:11 Maxipime 1 Gm/Ns 50 Ml IVPB 100 mls/hr Q12HR CARMELA Administration Vancomycin HCl 1,500 mg in 500 mls @ 250 mls/hr 03/20/24 16:00 03/20/24 18:59 Vancomycin 1,500 Mg/Ns 500 Ml IVPB Infused Q24H CARMELA Infusion Dextrose 1,000 mls @ 100 mls/hr 03/19/24 17:24 Dextrose 5% 1,000 Ml IVPB PRN PRN Hypoglycemia Protocol Insulin Aspart 2 - 4 units 03/19/24 21:00 03/20/24 20:35 Insulin Aspart (*Bkc) 100 Units/Ml SUB-Q Not Given HS CARMELA Protocol Insulin Aspart 4 - 8 units 03/20/24 08:00 03/21/24 10:13 Insulin Aspart (*Bkc) 100 Units/Ml SUB-Q Not Given TIDWM CARMELA Protocol Insulin Human Regular 40 units 03/20/24 08:00 03/20/24 08:50 Insulin Human Regular (*Bkc) 100 Units/Ml SUB-Q 40 units DAILY@0800 [facility] Administration Sodium Hypochlorite 1 applic 03/20/24 09:00 03/21/24 10:14 Sod Hypochlorite 1/4 Strength 473 Ml TOPICAL 1 applic Q12HR [facility] Administration Warfarin Sodium 1.25 mg 03/19/24 17:00 03/19/24 20:09 Warfarin (*Pbkc) 1.25 Mg Tablet PO Not Given SuTuThSa@1700 [facility] Radiology Results: ITS Impressions Heel X-Ray 03/19/24 11:30 IMPRESSION: No acute osseous abnormality. Labs Labs: Laboratory Results - last 24 hr 03/20/24 03/20/24 03/20/24 10:19 11:35 16:35 PT INR POC Capillary Glucose 245 H 156 H Stl Occult Blood (IFOB) Negative 03/20/24 03/21/24 03/21/24 20:24 07:21 07:30 PT 27.2 H D INR 2.4 POC Capillary Glucose 151 H 127 H Stl Occult Blood (IFOB) Quality VTE Prophylaxis VTE prophylaxis: pharmacologic ordered (on warfarin)
[2024-03-21 10:24] LABS: Hematocrit 21.2 % (42.0-52.0); Mean Corpuscular HGB Conc 32.1 g/dl (32-36); Mean Corpuscular Hemoglobin 30.6 pg (26-34); Mean Corpuscular Volume 95.5 fl (80-100); Mean Platelet Volume 10.5 fl (7.4-10.4); Platelet Count Result 337 k/mm3 (150-375); Red Blood Count 2.22 M/mm3 (4.6-6.20); Red Cell Distribution Width 16.1 % (11.5-14.5); White Blood Count 11.5 K/mm3 (4.5-10.0)
[2024-03-21 10:27] LABS: Hemoglobin 6.8 g/dL (14.0-18.0)
[2024-03-21 11:01] LABS: Anion Gap 4 mmol/L (4-12); Blood Urea Nitrogen 45 mg/dL (9-20); Calcium 8.2 mg/dL (8.4-10.2); Carbon Dioxide 25 mmol/L (22-30); Chloride 105 mmol/L (98-107); Estimated CRCL calculation 42 ml/min; Estimated Glomerular Filt Rate 31; Glucose 126 mg/dL (65-110); Potassium 4.6 mmol/L (3.4-5.0); Sodium 134 mmol/L (137-145)
[2024-03-21 11:16] LABS: Glucose Point of Care 210 mg/dl (65-105)
[2024-03-21 13:03] LABS: Vancomycin Trough 10.1 ug/mL (10.0-20.0)
[2024-03-21] MEDS: INSULIN ASPART (*BKC) 100 UNITS/ML SUB-Q (13:26)
[2024-03-21] MEDS: VANCOMYCIN 2,000 MG/NS 500 ML 2,000 MG/500 ML BAG 250 MG IVPB (15:36)
[2024-03-21 16:18] LABS: Glucose Point of Care 153 mg/dl (65-105)
[2024-03-21] MEDS: SODIUM CHLORIDE 0.9% IV 250 ML 30 ML IV CONT (19:07)
[2024-03-21 20:04] LABS: Hematocrit 22.3 % (42.0-52.0); Hemoglobin 7.5 g/dL (14.0-18.0)
[2024-03-21] MEDS: metroNIDAZOLE 500 MG TABLET PO (21:15)
[2024-03-21 21:40] LABS: Glucose Point of Care 137 mg/dl (65-105)
[2024-03-21] MEDS: ACETAMINOPHEN 325 MG TABLET 650 MG PO (22:53)
[2024-03-22] MEDS: metroNIDAZOLE 500 MG TABLET PO (05:34)
[2024-03-22 06:00] VITALS: BP 130/68; PULSE 85; RESP 20; TEMP 36.1; O2SAT 98
[2024-03-22 07:11] LABS: Hemoglobin 7.9 g/dL (14.0-18.0); Mean Corpuscular HGB Conc 32.9 g/dl (32-36); Mean Corpuscular Hemoglobin 30.2 pg (26-34); Mean Corpuscular Volume 91.6 fl (80-100); Mean Platelet Volume 9.6 fl (7.4-10.4); Platelet Count Result 299 k/mm3 (150-375); Red Blood Count 2.62 M/mm3 (4.6-6.20); Red Cell Distribution Width 17.4 % (11.5-14.5); White Blood Count 10.1 K/mm3 (4.5-10.0)
[2024-03-22 07:15] LABS: INR 2.4; Prothrombin Time 26.8 Seconds (11.1-14.7)
[2024-03-22 07:21] LABS: Anion Gap 3 mmol/L (4-12); Blood Urea Nitrogen 39 mg/dL (9-20); Calcium 8.1 mg/dL (8.4-10.2); Carbon Dioxide 24 mmol/L (22-30); Chloride 107 mmol/L (98-107); Estimated CRCL calculation 46 ml/min; Estimated Glomerular Filt Rate 35; Glucose 125 mg/dL (65-110); Potassium 4.1 mmol/L (3.4-5.0); Sodium 134 mmol/L (137-145)
[2024-03-22 07:45] LABS: Glucose Point of Care 123 mg/dl (65-105)
[2024-03-22] MEDS: INSULIN HUMAN REGULAR (*BKC) 100 UNITS/ML 40 UNITS SUB-Q (08:47)
[2024-03-22] MEDS: CEFEPIME 1 GM/NS 50 ML 1 GM/50 ML BAG IVPB (08:47)
[2024-03-22 08:48] VITALS: PULSE 84
[2024-03-22] MEDS: FUROSEMIDE 40 MG TABLET PO (08:48)
[2024-03-22] MEDS: ATORVASTATIN 40 MG TABLET 80 MG PO (08:48)
[2024-03-22] MEDS: carvediloL 12.5 MG TABLET PO ×2 (08:48→20:54)
--- NOTE | 2024-03-22 09:13 | P.CONGI_ITS ---
<Statement entered by Anthony Sumner MD - 03/22/24 15:11> I, Anthony Sumner MD, have provided a substantive portion of the care of this patient and discussed the patient with my Nurse Practitioner. I have reviewed any new relevant radiographic and laboratory results including medications. I agree with her documentation as noted below.?I personally performed the medical decision making and much of the history and exam for this encounter. briefly, he has multiple comorbidities to explain anemia including advanced CKD, also had recent colonoscopy. No overt gib, no need to proceed with endoscopic evaluation unless obvious bleeding. Will follow along. Assessment and Plan Assessment and plan (1) Chronic anemia: Code(s): D64.9 - Anemia, unspecified Status: Acute (2) Iron deficiency: Code(s): E61.1 - Iron deficiency Status: Acute (3) Chronic anticoagulation: Code(s): Z79.01 - continuous churn buttermaker (current) use of anticoagulants Status: Acute (4) Elevated bilirubin: Code(s): R17 - Unspecified jaundice Status: Acute (5) Elevated alkaline phosphatase level: Code(s): R74.8 - Abnormal levels of other serum enzymes Status: Acute (6) Pancreatic cyst: Code(s): K86.2 - Cyst of pancreas Status: Acute Plan 1. Acute on chronic anemia/iron deficiency/personal Hx of colon polyps: Patient with chronic anemia likely multifactorial given other comorbidities including chronic kidney disease stage 4. Patient had a colonoscopy in June 2023 at which time multiple tubular adenomatous colon polyps removed small hemorrhoids were noted. HGB on admission 8.1 which dropped to 6.8 on the and today is back to 8 without any blood transfusion, may have been a dilutional component. He has no signs of active GI bleeding to include hematemesis, hematochezia, or melena. MCV 92, platelets 299, iron 28, TIBC 190, iron saturation 15%, ferritin 1490, B12 folate were normal. Fecal occult blood negative. * No indication for emergent endoscopic evaluation * May consider EGD or capsule endoscopy as outpatient if H&H does not improve * primary care team to continue monitoring H&H and transfuse as needed to keep HGB > 7 * May consider Hematology referral to evaluate for non GI sources of anemia and iron deficiency 2. Elevated bilirubin/ elevated Alk Phos: No history of chronic LFT elevation. Labs today show total bilirubin 1.5, AST 51, ALT 48, alkaline phosphatase 206, albumin 2.3. normal appearing liver on CT in February. * Repeat LFT's * check direct and indirect bili * liver ultrasound ordered * elevated alkaline phosphatase could be secondary to known kidney disease 3. Pancreatic cyst: CT chest/ abdomen / pelvis 02/11/2024 showed an 8 mm pancreatic body cyst. * Patient to follow up outpatient for monitoring, patient will need repeat CT with pancreatic protocol in February of 2026 Thank you very much for allowing me to share in the care of this very nice patient. This report may have been done utilizing a voice recognition system. Attempts have been made to correct errors. However, there may be uncorrected grammatical, spelling, and recognition errors present. GI Consult Note Consult date/time: 03/22/24 09:13 Reason for consult: Anemia HPI: This is a 74-year-old male with history of CKD stage 4, cardiomyopathy, AFib with chronic anticoagulation, venous insufficiency, HTN, diabetes, HLD, asthma, history of cardiac catheterization, history of cardioversion, history of colon polyps, and history of basal cell carcinoma. He presented to the emergency room 03/19/2024 from [facility] for evaluation of foot wounds. GI has been consulted for anemia. Patients only GI complaint is occasional diarrhea but he states that overall he is having daily bowel movements that vary from loose to occasionally liquid. He denies any abdominal pain, nausea, vomiting, abdominal bloating, swallowing difficulty, reflux, regurgitation, early satiety, unexplained weight loss, appetite loss, hematochezia, or melena. Patient was on warfarin prior to admission, but this is currently on hold. He denies any NSAID use. Family history negative for CRC or IBD. Patient denies any alcohol, tobacco, or marijuana use. ENDOSCOPY HISTORY: EGD: Patient has never has an EGD COLONOSCOPY: 06/07/[address] Rangel for personal history of colon polyps Findings: There was a single 5 mm polyp observed in the ascending colon. Cold snare polypectomy was performed and polyp was completely excised There was a single 5 mm polyp observed in the transverse colon. A cold snare polypectomy was performed and the polyp was completely excised There was a single 4 mm polyp observed in the descending colon. a cold snare polypectomy was performed polyp was completely excised A few small sized internal hemorrhoids seen in the rectum that were not actively bleeding Five year repeat colonoscopy recommended Bx results: Large intestine, ascending polyp, polypectomy: - Tubular adenoma Large intestine, transverse polyp, polypectomy: - Tubular adenoma Large intestine, descending polyp, polypectomy: - Benign polypoid granulation tissue COLONOSCOPY: 03/08/[address] Chester for personal history of colon polyps Findings: In the rectum, a few small sized uncomplicated internal hemorrhoids were seen. The hemorrhoids were not actively bleeding. The hemorrhoids were grade 2 Five year repeat colonoscopy recommended LABS AND STOOL STUDIES: Labs 03/22/2024: Sodium 134, potassium 4.1, BUN 39, creatinine 1.90, GFR 35. WBC is 10, HGB 8, HCT 24, MCV 92, platelets 299, INR 2.4. Total bilirubin 1.5, AST 51, ALT 48, alkaline phosphatase 206, albumin 2.3. Total iron 28, TIBC 190, iron saturation 15%, ferritin 1490, B12 597, folate 5.3, TSH 0.649, calcium 8.1, and magnesium 1.9 Fecal occult blood negative IMAGING: CT chest/abd/pelvis w/contrast 02/11/2024 IMPRESSION: Multiple pulmonary nodules measuring up to 9 mm in the right lower lobe. Recommend follow-up low-dose noncontrast CT of the chest in 3-6 months. Mediastinal lymphadenopathy. 8 mm pancreatic body cyst, recommend follow-up CT abdomen and pelvis with contrast in 2 years. 2.0 cm left adrenal nodule, probably benign, consider follow-up adrenal CT in 12 months, unless there is a history of cancer, in which case consider referral for nonemergent outpatient adrenal CT now. No acute fracture fracture or traumatic malalignment detected in the thoracic or lumbar spine. Review of Systems 2 Constitutional: Constitutional: Reports as per HPI ENT: Reports as per HPI Cardiovascular: Cardiovascular: Reports as per HPI, Denies chest pain, Reports pedal edema, Reports leg edema and Reports dyspnea Respiratory: Respiratory: Denies cough and Reports dyspnea on exertion Gastrointestinal: Gastrointestinal: Reports as per HPI Musculoskeletal: Musculoskeletal: Reports as per HPI Integumentary/Breasts: Skin/Breast: Reports as per HPI, Reports dry skin and Reports wounds (on both feet) Psychiatric: Psychiatric: Reports as per HPI Endocrine: Endocrine: Reports no additional endocrine complaints Hematologic/Lymphatic: Hematologic/Lymphatic: Reports no additional hematologic/lymphatic complaints [facility] Past Medical History Medical History (Updated 03/22/24 @ 09:28 by Shelly Browne APRN) Monoclonal gammopathy of unknown significance Chronic anticoagulation Chronic kidney disease, stage 4 (severe) Nonischemic cardiomyopathy Venous insufficiency Hypertension Insulin dependent type 2 diabetes mellitus Atrial fibrillation Vitamin D deficiency Urticaria Mixed hyperlipidemia Asthma Basal cell carcinoma (BCC) of brow Surgical History Surgical History History of cardiac catheterization no obstructive disease per patient report History of cardioversion History of bilateral cataract extraction History of basal cell carcinoma excision History of arthroscopy of both knees History of colonoscopy with polypectomy Family History Family History Father Family history of emphysema, Onset Age: 69 Social History Social History Social History: Surrogate medical decision maker: Jose Isaac (son) or Josy Weston (sibling). Code status: Full code. Smoking status: Never smoker Alcohol intake: never Alcohol use details: social alcohol use in moderation Substance use: never Substance use type: does not use Do You Feel Safe in your Home?: Yes Lack of Transportation: No Lack of Food: Never True Current Housing: I Have Housing Concerned About Future Housing: No Difficulty Paying Gas/Electric Bills: No Difficulty Paying for Meds: No Currently Unemployed: No Education: Decline to Answer Difficulty w/ Childcare or Family Care: No Living arrangements: alone Additional living arrangements comments: the patient lives in his own home in [place] Occupation/Education: retired Spiritual care concerns: No Meds Home Medications and Allergies Home Medications ?Medication ?Instructions ?Recorded ?Confirmed ?Type losartan 50 mg tablet 50 mg PO DAILY 01/30/19 03/19/24 History potassium chloride 20 mEq 20 meq PO DAILY 01/30/19 03/19/24 History tablet,extended release spironolactone 50 mg tablet 50 mg PO DAILY 01/30/19 03/19/24 History cholecalciferol (vitamin D3) 1,250 1,250 mcg PO WEEKLY #14 tabs 09/14/23 03/19/24 Rx mcg (50,000 unit) tablet semaglutide 1 mg/dose (2 mg/1.5 1 mg subcut WEEKLY 11/01/23 03/19/24 History mL) subcutaneous pen injector flash glucose sensor (FreeStyle #2 kits 11/24/23 03/19/24 Rx Germania 2 Sensor kit) pen needle, diabetic 32 gauge x #200 ea 12/13/23 03/19/24 Rx 5/32 (BD Lona 2nd Gen Pen Needle) glucagon 1 mg/0.2 mL subcutaneous 1 mg (0.2 mL) subcut ONCE #0.4 mL 01/15/24 03/19/24 Rx auto-injector (Gvoke HypoPen 2-Pack) insulin regular hum U-500 conc 500 40 unit subcut DAILY 01/15/24 03/19/24 History unit/mL(3 mL) subcut pen (Humulin R U-500 (Conc) Insulin Kwikpen) atorvastatin 80 mg tablet 80 mg PO DAILY #90 tabs 01/24/24 03/19/24 Rx fenofibrate 54 mg tablet 54 mg PO DAILY 02/11/24 03/19/24 History carvedilol 25 mg tablet 12.5 mg (1/2 x 25 mg) PO BID #60 02/16/24 03/19/24 Rx tabs furosemide 80 mg tablet 40 mg (1/2 x 80 mg) PO DAILY #15 02/16/24 03/19/24 Rx tabs warfarin 5 mg tablet 2.5 mg (1/2 x 5 mg) PO DAILY #15 02/16/24 03/19/24 Rx tabs Allergies Allergy/AdvReac Type Severity Reaction Status Date / Time No Known Allergies Allergy Verified 03/19/24 12:14 Vital Signs Vital Signs - 24 hr 03/21/24 10:12 03/21/24 14:00 03/21/24 15:25 Temperature 98.4 F 98.3 F Pulse Rate 82 88 97 Respiratory Rate 16 18 Blood Pressure 113/59 L 102/62 Pulse Oximetry 97 97 Oxygen Delivery 03/21/24 15:39 03/21/24 16:40 03/21/24 17:40 Temperature 99.9 F H 99.3 F 98.2 F Pulse Rate 91 77 86 Respiratory Rate 18 20 20 Blood Pressure 109/65 114/58 L 120/56 L Pulse Oximetry 96 97 99 Oxygen Delivery 03/21/24 18:40 03/21/24 20:40 03/21/24 21:15 Temperature 100.8 F H Pulse Rate 90 92 Respiratory Rate 16 Blood Pressure 117/60 Pulse Oximetry 97 Oxygen Delivery Room Air 03/21/24 22:00 03/22/24 06:00 03/22/24 08:48 Temperature 98.6 F 96.9 F L Pulse Rate 94 85 84 Respiratory Rate 20 20 Blood Pressure 134/67 130/68 Pulse Oximetry 98 98 Oxygen Delivery Exam 2 Const: General: cooperative, healthy appearing, comfortable, no acute distress, well developed and obese Nutritional Appearance: obese O rientation/consciousness: oriented to person, oriented to place, oriented to time and patient oriented x3 HENMT: Head: normal to inspection, normocephalic and atraumatic Mouth: Yes Normal oral and palatal mucosa present and Yes moist mucous membranes Eyes: General: appearance normal, both eyes and all related structures C onjunctivae: conjunctivae normal Sclera: sclerae normal Pupils: Equal, round and reactive pupils present Neck: Neck: normal visual inspection Chest: Chest palpation & inspection: normal inspection of the chest Resp: Effort & Inspection: normal respiratory effort and able to speak in complete sentences Auscultation: diminished lung sounds Cardio: Jugular venous distension: no JVD Rate: regular rate Rhythm: r egular rhythm Heart sounds: S1 normal heart sound present and S2 normal heart sound present GI: Inspection: normal to inspection GI Palp: Yes Firmness to palpation present (GI), No Tenderness to palpation present (GI), No Guarding due to palpation present (GI) and Yes No hepatosplenomegaly present Auscultation: n ormal bowel sounds Rectal Exam: deferred Other: large distended abdomen Skin: General skin exam: normal color and no rashes or lesions noted Neuro: General: oriented to person, oriented to place, oriented to time and patient oriented x3 Cranial nerves: Yes Equal, round and reactive pupils present Speech: normal speech Extrem: General: normal to inspection and no clubbing, cyanosis or edema Psych: Appearance: grossly normal and well kempt Affect: normal affect Results Labs 03/22/24 06:53 03/22/24 06:53 Labs: Short CBC 03/21/24 03/21/24 03/22/24 Range/Units 07:29 19:56 06:53 WBC 11.5 H 10.1 H (4.5-10.0) K/mm3 Hgb 6.8 L* 7.5 L 7.9 L (14.0-18.0) g/dL Hct 21.2 L 22.3 L 24.0 L (42.0-52.0) % Plt Count 337 299 (150-375) k/mm3 BMP 03/21/24 03/22/24 07:29 06:53 Sodium 134 L 134 L Potassium 4.6 4.1 Chloride 105 107 Carbon Dioxide 25 24 BUN 45 H 39 H Creatinine 2.10 H 1.90 H Glucose 126 H 125 H Calcium 8.2 L 8.1 L
[2024-03-22] MEDS: SOD HYPOCHLORITE 1/4 STRENGTH 473 ML 1 APPLIC TOPICAL (10:10)
[2024-03-22 10:31] LABS: Alanine Aminotransferase 35 U/L (6-50); Albumin Level 2.3 g/dL (3.5-5.1); Alkaline Phosphatase 165 U/L (38-126); Aspartate Amino Transferase 53 U/L (17-59); Bilirubin Indirect 0.3 mg/dL (0-1.1); Bilirubin,Total 0.8 mg/dL (0.2-1.3)
[2024-03-22 11:14] VITALS: O2SAT 96
[2024-03-22] MEDS: PANTOPRAZOLE SODIUM IV 40 MG VIAL IV PUSH ×2 (11:25→21:12)
[2024-03-22 11:35] LABS: Glucose Point of Care 125 mg/dl (65-105)
[2024-03-22 14:00] VITALS: BP 106/50; PULSE 76; RESP 17; TEMP 36.7; O2SAT 98
[2024-03-22] MEDS: IRON SUCROSE COMPLEX 100 MG in SODIUM CHLORIDE 0.9% IV 50 ML 220 MG IVPB (15:25)
[2024-03-22 16:53] LABS: Glucose Point of Care 103 mg/dl (65-105)
[2024-03-22] MEDS: cefTRIAXone 2 GM/NS 100 ML 2 GM/100 ML BAG IVPB (17:25)
--- NOTE | 2024-03-22 17:31 | PM.EVENT ---
Event Note Event Note Event Note: Nurse called about blood culture positive for Gram positive cocci in cluster. I and S will follow.
[2024-03-22 20:54] VITALS: PULSE 95
[2024-03-22 21:02] LABS: Glucose Point of Care 108 mg/dl (65-105)
[2024-03-22] MEDS: ACETAMINOPHEN 325 MG TABLET 650 MG PO (21:16)
[2024-03-22 22:10] VITALS: BP 125/56; PULSE 88; RESP 20; TEMP 37.1; O2SAT 97
[2024-03-23] MEDS: SOD HYPOCHLORITE 1/4 STRENGTH 473 ML 1 APPLIC TOPICAL ×3 (01:03→21:03)
[2024-03-23 06:25] LABS: Hematocrit 23.9 % (42.0-52.0); Hemoglobin 7.8 g/dL (14.0-18.0); Mean Corpuscular HGB Conc 32.6 g/dl (32-36); Mean Corpuscular Hemoglobin 30.4 pg (26-34); Mean Platelet Volume 9.7 fl (7.4-10.4); Platelet Count Result 306 k/mm3 (150-375); Red Blood Count 2.57 M/mm3 (4.6-6.20); Red Cell Distribution Width 17.4 % (11.5-14.5); White Blood Count 9.6 K/mm3 (4.5-10.0)
[2024-03-23 06:42] LABS: INR 2.5; Prothrombin Time 28.1 Seconds (11.1-14.7)
[2024-03-23 06:43] LABS: Anion Gap 4 mmol/L (4-12); Blood Urea Nitrogen 34 mg/dL (9-20); Calcium 8.1 mg/dL (8.4-10.2); Carbon Dioxide 28 mmol/L (22-30); Chloride 106 mmol/L (98-107); Estimated CRCL calculation 49 ml/min; Estimated Glomerular Filt Rate 37; Glucose 108 mg/dL (65-110); Potassium 3.9 mmol/L (3.4-5.0); Sodium 138 mmol/L (137-145)
[2024-03-23 08:02] LABS: Glucose Point of Care 119 mg/dl (65-105)
[2024-03-23] MEDS: INSULIN HUMAN REGULAR (*BKC) 100 UNITS/ML 40 UNITS SUB-Q (09:08)
[2024-03-23 09:09] VITALS: PULSE 80
[2024-03-23] MEDS: carvediloL 12.5 MG TABLET PO ×2 (09:09→21:02)
[2024-03-23] MEDS: PANTOPRAZOLE SODIUM IV 40 MG VIAL IV PUSH ×2 (09:09→21:02)
[2024-03-23] MEDS: FUROSEMIDE 40 MG TABLET PO (09:09)
[2024-03-23] MEDS: ATORVASTATIN 40 MG TABLET 80 MG PO (09:09)
--- NOTE | 2024-03-23 10:02 | PM.IMPN ---
Progress Note: A&P Assessment and Plan (1) Diabetic foot ulcers: Code(s): E11.621 - Type 2 diabetes mellitus with foot ulcer; L97.509 - Non-pressure chronic ulcer of other part of unspecified foot with unspecified severity Status: Acute Assessment and Plan: -cellulitic changes over the left 5th digit with erythema and warmth extending onto the dorsum of the left lateral foot started on broad-spectrum antibiotics Wound nurse cynthia completed- appreciate recommendations (2) Insulin dependent type 2 diabetes mellitus: Code(s): E11.9 - Type 2 diabetes mellitus without complications; Z79.4 - [facility] (current) use of insulin Status: Acute Assessment and Plan: Continue basal insulin. Initiate sliding scale insulin, Accu-Cheks, and hypoglycemic protocol. BS reviewed- stable (108 this am) (3) Chronic kidney disease, stage 4 (severe): Code(s): N18.4 - Chronic kidney disease, stage 4 (severe) Status: Acute Assessment and Plan: 1.8 cr/bun34- trending down monitor (4) Hyperkalemia: Code(s): E87.5 - Hyperkalemia Status: Acute Assessment and Plan: receieved a liter of normal saline overnight. Potassium is a bit high but should improve with fluids however will hold losartan, potassium supplement, and spironolactone for now poor nutrition-order supplements 3.9 today- moniotor (5) Anemia: Code(s): D64.9 - Anemia, unspecified Status: Acute Assessment and Plan: Check iron studies, B12, folate, and pre-albumin. . Continue to monitor volume status closely with daily weights and I/O. Continue warfarin and monitor INR stool occult blood is ordered-negative hg dropped 6.8 onn 03/21-received a unit of blood GI saw him- no need for intervention pt is on protonic Iron is low- will replace -no s/s of bleeding will restart coumadin and continue to monitor (6) Nonischemic cardiomyopathy: Code(s): I42.8 - Other cardiomyopathies Status: Acute (7) Hypertension: Code(s): I10 - Essential (primary) hypertension Status: Acute Assessment and Plan: reviewed and stable (8) Atrial fibrillation: Code(s): I48.91 - Unspecified atrial fibrillation Status: Acute Assessment and Plan: restarting Coumadin today at his home dose: 2.5 sat sun and 3.5 mg mon-fri (9) Chronic anticoagulation: Code(s): Z79.01 - [facility] (current) use of anticoagulants Status: Acute Assessment and Plan: inr- 13.9 on 03/19- vit k x 1 dose was given 03/20- inr is down to 11.3- will order vit k x 1 5 mg po close monitor stool for occult is ordered-follow no s/s of bleeding holding coumadin 03/21- INR 2.4 today- but hg dropped to 6.8-so will not restart at this time stool for occult blood negative pt recently had egd/colonscopy- polyps were found -GI consulted- no intervention no active bleed- will monitor and restart coumadin today Time Spent With Patient Time with patient: Greater than 35 minutes Subjective Date/time seen: 03/23/24 10:02 Interval history: This is a 74-year-old male with multiple medical problems including atrial fibrillation, nonischemic cardiomyopathy, hypertension, hyperlipidemia, and insulin-dependent type 2 diabetes mellitus who presented to the emergency department via EMS from [facility] for evaluation of foot wounds. The patient provides the following history. He is known to myself and the hospitalist service from an admission a little over a month ago at which time he was admitted with generalized weakness, urinary tract infection, and an overall decline in functional status. He was discharged to [facility] for longterm rehab where he reports that he has been in bed a majority of the time and it does not sound as though he participates much in physical therapy. He has developed wounds on his feet which are being monitored by a wound nurse and that nurse was concerned today for infection and he was sent to the ED. Due to neuropathy he really does not have any pain in his feet. He is otherwise feeling okay and denies fever, chills, sweats, cold and flu symptoms, chest pain, shortness of breath, nausea, vomiting, diarrhea, and dysuria. In the ED: Vital signs were stable on arrival. Labs were significant for a WBC count of 17.5, hemoglobin 8.1, sodium 129, potassium 5.2, BUN 47, creatinine 2.10, glucose 296, albumin 2.8. X-rays of both heels showed no acute osseous abnormalities. He was started on antibiotics for suspected diabetic foot infection and he is being admitted in this setting. pt is seen and examined. Pt is alert, oriented, in no distress. 03/21= seen this am. Doing well, no acute complains. no chills, no chest pain. IV antibiotics 03/22- gi eval done. no s/s of bleeding reported. pt needs a lot of encouragement to participate in any activities. 03/23- reports uneventful night. Discussed returning to [facility] but he states that he wants to go to a different place. Care coordination is working on placement if possible to different [facility]. Review of Systems Review of Systems: pt is doing fairly well- reports no acute pain, no blood in urine or stool. Exam Narrative: General: Chronically ill-appearing male in the semi-Cat position in bed. Weight: 134.9 kg. BMI: 37.2. HEENT: Normocephalic, atraumatic. PERRL, EOMI. Sclera anicteric. Tacky mucous membranes. Neck: Supple. No JVD or lymphadenopathy. Respiratory: Respirations are nonlabored and lungs are clear to auscultation. Cardiovascular: Irregularly irregular rate and rhythm. Gastrointestinal: Abdomen is soft, protuberant, nontender, and nondistended with positive bowel sounds. Skin: Warm and dry. Generalized pallor. Extremities: No cyanosis or clubbing. Legs are large with pitting edema which seems to be less severe compared to last month. Chronic skin changes of bilateral lower legs consistent with venous stasis dermatitis. there is a pressure ulcer on the right heel and a large ulcerated area on the plantar aspect of the left foot extending laterally. The webspace between the left 4th and 5th toes has a small amount of discharge in the left 5th toe was erythematous and warm, extending to the lateral dorsal aspect of the foot. He has limited sensation and has no pain with palpation of the wounds. Diminished pulses in the feet. Neurological: Alert and oriented. Cranial nerves 2-12 are grossly intact. No pronator drift. He can barely lift his legs off the bed 1 in before letting them fall. This is a chronic finding. Hand industry consultant are equal bilaterally. No focal strength deficits in the upper extremities. Sensation diminished in the lower extremities. Psychiatric: Pleasant and cooperative with appropriate mood and flat affect. Const: General: comfortable Objective Data Vital Signs Vital Signs: Vital Signs - 24 hr 03/22/24 11:14 03/22/24 14:00 03/22/24 20:00 Temperature 98.1 F Pulse Rate 76 Respiratory Rate 17 Blood Pressure 106/50 L Pulse Oximetry 96 98 Oxygen Delivery Room Air Room Air 03/22/24 20:54 03/22/24 22:10 03/23/24 09:09 Temperature 98.7 F Pulse Rate 95 88 80 Respiratory Rate 20 Blood Pressure 125/56 L Pulse Oximetry 97 Oxygen Delivery Intake/Output Intake/Output: Intake & Output 03/20/24 03/21/24 03/22/24 03/23/24 23:59 23:59 23:59 23:59 Intake Total 2019 2219 850 300 Output Total 350 2150 8316 92 Balance 1720 92 -9218 -676 Meds/Results Medications: Active Medications Generic Name Dose Route Start Last Admin Trade Name Freq PRN Reason Stop Dose Admin Acetaminophen 650 mg 03/19/24 20:56 03/22/24 21:16 Acetaminophen 325 Mg Tablet PO 650 mg Q6H PRN Administration Mild Pain (1-3) or Fever Atorvastatin Calcium 80 mg 03/20/24 09:00 03/23/24 09:09 Atorvastatin 40 Mg Tablet PO 80 mg DAILY CARMELA Administration Carvedilol 12.5 mg 03/19/24 21:00 03/23/24 09:09 Carvedilol 12.5 Mg Tablet PO 12.5 mg Q12HR CARMELA Administration Dextrose 12.5 gm 03/19/24 17:24 Dextrose 50% 25 Gm/50 Ml Syringe IV PUSH PRN PRN Hypoglycemia Protocol Furosemide 40 mg 03/20/24 09:00 03/23/24 09:09 Furosemide 40 Mg Tablet PO 40 mg DAILY CARMELA Administration Glucagon 1 mg 03/19/24 17:24 Glucagon For Inj 1 Mg Vial IM PRN PRN Hypoglycemia Protocol Glucose 15 gm 03/19/24 17:24 Glucose Oral Gel 15 Gm Of Glucse In 37.5 Gm Tube PO PRN PRN Hypoglycemia Protocol Dextrose 1,000 mls @ 100 mls/hr 03/19/24 17:24 Dextrose 5% 1,000 Ml IVPB PRN PRN Hypoglycemia Protocol Ceftriaxone Sodium 2 gm in 100 mls @ 200 mls/hr 03/22/24 16:00 03/22/24 17:55 Rocephin 2 Gm/Ns 100 Ml IVPB Infused Q24H CARMELA Infusion Insulin Aspart 2 - 4 units 03/19/24 21:00 03/22/24 20:55 Insulin Aspart (*Bkc) 100 Units/Ml SUB-Q Not Given HS [facility] Protocol Insulin Aspart 4 - 8 units 03/20/24 08:00 03/22/24 18:22 Insulin Aspart (*Bkc) 100 Units/Ml SUB-Q Not Given TIDWM [facility] Protocol Insulin Human Regular 40 units 03/20/24 08:00 03/23/24 09:08 Insulin Human Regular (*Bkc) 100 Units/Ml SUB-Q 40 units DAILY@0800 CARMELA Administration Pantoprazole Sodium 40 mg 03/22/24 09:00 03/23/24 09:09 Pantoprazole Sodium Iv 40 Mg Vial IV PUSH 40 mg Q12HR CARMELA Administration Sodium Hypochlorite 1 applic 03/20/24 09:00 03/23/24 01:03 Sod Hypochlorite 1/4 Strength 473 Ml TOPICAL 1 applic Q12HR CARMELA Administration Radiology Results: ITS Impressions Heel X-Ray 03/19/24 11:30 IMPRESSION: No acute osseous abnormality. Abdomen Ultrasound 03/23/24 09:20 IMPRESSION: 1. Cholelithiasis. No evidence of acute cholecystitis. Labs Labs: Laboratory Results - last 24 hr 03/22/24 03/22/24 03/22/24 06:53 11:20 16:47 WBC RBC Hgb Hct MCV MCH MCHC RDW Plt Count MPV PT INR Sodium Potassium Chloride Carbon Dioxide Anion Gap BUN Creatinine Estim Creat Clear Calc Estimated GFR Glucose POC Capillary Glucose 125 H 103 Calcium Total Bilirubin 0.8 Direct Bilirubin 0.0 Indirect Bilirubin 0.3 AST 53 ALT 35 Alkaline Phosphatase 165 H Total Protein 6.0 L Albumin 2.3 L 03/22/24 03/23/24 03/23/24 20:53 05:52 07:57 WBC 9.6 RBC 2.57 L Hgb 7.8 L Hct 23.9 L MCV 93.0 MCH 30.4 MCHC 32.6 RDW 17.4 H Plt Count 306 MPV 9.7 PT 28.1 H INR 2.5 Sodium 138 Potassium 3.9 Chloride 106 Carbon Dioxide 28 Anion Gap 4 BUN 34 H Creatinine 1.80 H Estim Creat Clear Calc 49 Estimated GFR 37 L Glucose 108 POC Capillary Glucose 108 H 119 H Calcium 8.1 L Total Bilirubin Direct Bilirubin Indirect Bilirubin AST ALT Alkaline Phosphatase Total Protein Albumin Quality VTE Prophylaxis VTE prophylaxis: pharmacologic ordered (on warfarin)
[2024-03-23 12:26] LABS: Glucose Point of Care 118 mg/dl (65-105)
[2024-03-23 14:00] VITALS: BP 124/71; PULSE 97; RESP 18; TEMP 36.8; O2SAT 99
--- NOTE | 2024-03-23 16:25 | WPDGIPROGNO ---
Progress Note: A&P Assessment and Plan (1) Acute on chronic anemia: Code(s): D64.9 - Anemia, unspecified Status: Acute Assessment and Plan: probably multifactorial (advanced renal disease, CHF, also bacteremia) and no overt gib just completed colonoscopy few months ago only with polyps, no need for acute intervention will follow only as needed (2) Bacteremia due to Staphylococcus: Code(s): R78.81 - Bacteremia; B95.8 - Unspecified staphylococcus as the cause of diseases classified elsewhere Status: Acute Assessment and Plan: new result, by primary (3) Type 2 diabetes mellitus with hyperglycemia, with long-term current use of insulin: Code(s): E11.65 - Type 2 diabetes mellitus with hyperglycemia; Z79.4 - group home (current) use of insulin Status: Acute (4) Diabetic foot ulcers: Code(s): E11.621 - Type 2 diabetes mellitus with foot ulcer; L97.509 - Non-pressure chronic ulcer of other part of unspecified foot with unspecified severity Status: Acute Assessment and Plan: on abx (5) Diarrhea: Code(s): R19.7 - Diarrhea, unspecified Status: Acute Assessment and Plan: staff denies any more (6) Nonischemic cardiomyopathy: Code(s): I42.8 - Other cardiomyopathies Status: Acute (7) Acute on chronic kidney failure: Code(s): N17.9 - Acute kidney failure, unspecified; N18.9 - Chronic kidney disease, unspecified Status: Acute Subjective Date/time seen: 03/23/24 16:25 Interval history: RN does not report signs of GIB blood cx + Staph Review of Systems Review of Systems: All systems reviewed & are unremarkable except as noted in HPI and below Exam Narrative: chronically ill appearing, edematous Const: General: comfortable HENMT: Face/Nose/Sinus: Normal nares present Eyes: General: appearance normal, both eyes and all related structures Neck: Neck: supple Resp: Effort & Inspection: normal respiratory effort Cardio: Rhythm: abnormal rhythm irregularly irregular GI: GI Palp: Yes Soft to palpation and No Tenderness to palpation present (GI) Auscultation: normal bowel sounds Skin: Other: skin breakdown in buttock Neuro: Speech: normal speech Extrem: General: edema Psych: Attitude: not belligerent Objective Data Vital Signs Vital Signs: Vital Signs - 24 hr 03/22/24 20:00 03/22/24 20:54 03/22/24 22:10 Temperature 98.7 F Pulse Rate 95 88 Respiratory Rate 20 Blood Pressure 125/56 L Pulse Oximetry 97 Oxygen Delivery Room Air 03/23/24 09:09 03/23/24 14:00 Temperature 98.2 F Pulse Rate 80 97 Respiratory Rate 18 Blood Pressure 124/71 Pulse Oximetry 99 Oxygen Delivery Intake/Output Intake/Output: Intake & Output 03/20/24 03/21/24 03/22/24 03/23/24 23:59 23:59 23:59 23:59 Intake Total 2019 2220 850 540 Output Total 350 2150 7048 927 Balance 2334 91 -9437 -801 Meds/Results Medications: Active Medications Generic Name Dose Route Start Last Admin Trade Name Freq PRN Reason Stop Dose Admin Acetaminophen 650 mg 03/19/24 20:56 03/22/24 21:16 Acetaminophen 325 Mg Tablet PO 650 mg Q6H PRN Administration Mild Pain (1-3) or Fever Atorvastatin Calcium 80 mg 03/20/24 09:00 03/23/24 09:09 Atorvastatin 40 Mg Tablet PO 80 mg DAILY CARMELA Administration Carvedilol 12.5 mg 03/19/24 21:00 03/23/24 09:09 Carvedilol 12.5 Mg Tablet PO 12.5 mg Q12HR CARMELA Administration Dextrose 12.5 gm 03/19/24 17:24 Dextrose 50% 25 Gm/50 Ml Syringe IV PUSH PRN PRN Hypoglycemia Protocol Furosemide 40 mg 03/20/24 09:00 03/23/24 09:09 Furosemide 40 Mg Tablet PO 40 mg DAILY CARMELA Administration Glucagon 1 mg 03/19/24 17:24 Glucagon For Inj 1 Mg Vial IM PRN PRN Hypoglycemia Protocol Glucose 15 gm 03/19/24 17:24 Glucose Oral Gel 15 Gm Of Glucse In 37.5 Gm Tube PO PRN PRN Hypoglycemia Protocol Dextrose 1,000 mls @ 100 mls/hr 03/19/24 17:24 Dextrose 5% 1,000 Ml IVPB PRN PRN Hypoglycemia Protocol Ceftriaxone Sodium 2 gm in 100 mls @ 200 mls/hr 03/22/24 16:00 03/22/24 17:55 Rocephin 2 Gm/Ns 100 Ml IVPB Infused Q24H CARMELA Infusion Insulin Aspart 2 - 4 units 03/19/24 21:00 03/22/24 20:55 Insulin Aspart (*Bkc) 100 Units/Ml SUB-Q Not Given HS [facility] Protocol Insulin Aspart 4 - 8 units 03/20/24 08:00 03/22/24 18:22 Insulin Aspart (*Bkc) 100 Units/Ml SUB-Q Not Given TIDWM [facility] Protocol Insulin Human Regular 40 units 03/20/24 08:00 03/23/24 09:08 Insulin Human Regular (*Bkc) 100 Units/Ml SUB-Q 40 units DAILY@0800 [facility] Administration Pantoprazole Sodium 40 mg 03/22/24 09:00 03/23/24 09:09 Pantoprazole Sodium Iv 40 Mg Vial IV PUSH 40 mg Q12HR [facility] Administration Perflutren Lipid Microsphere 0 ml 03/23/24 14:25 Perflutren Lipid Microspheres 1.5 Ml Vial Diluted To 10 Ml Total Volume IV PUSH 03/26/24 14:26 ONCE PRN adequate visualization Protocol Sodium Hypochlorite 1 applic 03/20/24 09:00 03/23/24 01:03 Sod Hypochlorite 1/4 Strength 473 Ml TOPICAL 1 applic Q12HR [facility] Administration Warfarin Sodium 2.5 mg 03/23/24 17:00 Warfarin (*Pbkc) 2.5 Mg Tablet PO DAILY@1700 [facility] Warfarin Sodium 1 mg 03/25/24 17:00 Warfarin (*Pbkc) 1 Mg Tablet PO MoTuWeThFr@1700 [facility] Radiology Results: ITS Impressions Heel X-Ray 03/19/24 11:30 IMPRESSION: No acute osseous abnormality. Abdomen Ultrasound 03/23/24 09:20 IMPRESSION: 1. Cholelithiasis. No evidence of acute cholecystitis. Labs Labs: Laboratory Results - last 24 hr 03/22/24 03/22/24 03/23/24 16:47 20:53 05:52 WBC 9.6 RBC 2.57 L Hgb 7.8 L Hct 23.9 L MCV 93.0 MCH 30.4 MCHC 32.6 RDW 17.4 H Plt Count 306 MPV 9.7 PT 28.1 H INR 2.5 Sodium 138 Potassium 3.9 Chloride 106 Carbon Dioxide 28 Anion Gap 4 BUN 34 H Creatinine 1.80 H Estim Creat Clear Calc 49 Estimated GFR 37 L Glucose 108 POC Capillary Glucose 103 108 H Calcium 8.1 L 03/23/24 03/23/24 07:57 11:46 WBC RBC Hgb Hct MCV MCH MCHC RDW Plt Count MPV PT INR Sodium Potassium Chloride Carbon Dioxide Anion Gap BUN Creatinine Estim Creat Clear Calc Estimated GFR Glucose POC Capillary Glucose 119 H 118 H Calcium
[2024-03-23 17:00] LABS: Glucose Point of Care 110 mg/dl (65-105)
[2024-03-23] MEDS: cefTRIAXone 2 GM/NS 100 ML 2 GM/100 ML BAG IVPB (17:23)
[2024-03-23] MEDS: WARFARIN (*PBKC) 2.5 MG TABLET PO (17:24)
[2024-03-23 21:00] VITALS: BP 131/65; PULSE 94; RESP 20; TEMP 36.3; O2SAT 97
[2024-03-23] MEDS: ACETAMINOPHEN 325 MG TABLET 650 MG PO (21:04)
[2024-03-23 21:57] LABS: Glucose Point of Care 121 mg/dl (65-105)
[2024-03-24 04:25] VITALS: BP 139/65; PULSE 89; RESP 20; TEMP 37.2; O2SAT 99
[2024-03-24 06:01] LABS: Hemoglobin 7.9 g/dL (14.0-18.0); Mean Corpuscular HGB Conc 31.6 g/dl (32-36); Mean Corpuscular Hemoglobin 29.6 pg (26-34); Mean Corpuscular Volume 93.6 fl (80-100); Mean Platelet Volume 9.2 fl (7.4-10.4); Platelet Count Result 281 k/mm3 (150-375); Red Blood Count 2.67 M/mm3 (4.6-6.20); Red Cell Distribution Width 17.2 % (11.5-14.5); White Blood Count 9.9 K/mm3 (4.5-10.0)
[2024-03-24 06:16] LABS: INR 2.9; Prothrombin Time 31.3 Seconds (11.1-14.7)
[2024-03-24 06:19] LABS: Anion Gap 1 mmol/L (4-12); Blood Urea Nitrogen 30 mg/dL (9-20); Calcium 8.1 mg/dL (8.4-10.2); Carbon Dioxide 29 mmol/L (22-30); Chloride 106 mmol/L (98-107); Estimated CRCL calculation 52 ml/min; Estimated Glomerular Filt Rate 40; Glucose 125 mg/dL (65-110); Potassium 3.6 mmol/L (3.4-5.0); Sodium 136 mmol/L (137-145)
--- NOTE | 2024-03-24 08:26 | P.PNIM_ITS ---
Progress Note: A&P Assessment and Plan (1) Diabetic foot ulcers: Code(s): E11.621 - Type 2 diabetes mellitus with foot ulcer; L97.509 - Non-pressure chronic ulcer of other part of unspecified foot with unspecified severity Status: Acute Assessment and Plan: - cellulitic changes over the left 5th digit with erythema and warmth extending onto the dorsum of the left lateral foot started on broad-spectrum antibiotics Wound nurse eval completed- appreciate recommendations unstageable pressure ulcer to heels- left posterior heel. small deep tissues injury... no s/s of infection. 1/4 strength dankin solution moisten gauze to help decrease bacterial load, abd, kerlex. waffle boots.. (2) Insulin dependent type 2 diabetes mellitus: Code(s): E11.9 - Type 2 diabetes mellitus without complications; Z79.4 - termite helper (current) use of insulin Status: Acute Assessment and Plan: Continue basal insulin. Initiate sliding scale insulin, Accu-Cheks, and hypoglycemic protocol. BS reviewed- stable (108 this am) (3) Chronic kidney disease, stage 4 (severe): Code(s): N18.4 - Chronic kidney disease, stage 4 (severe) Status: Acute Assessment and Plan: 1.8 [id number]- trending down monitor (4) Hyperkalemia: Code(s): E87.5 - Hyperkalemia Status: Acute Assessment and Plan: receieved a liter of normal saline overnight. Potassium is a bit high but should improve with fluids however will hold losartan, potassium supplement, and spironolactone for now poor nutrition-order supplements 3.9 today- moniotor (5) Anemia: Code(s): D64.9 - Anemia, unspecified Status: Acute Assessment and Plan: Check iron studies, B12, folate, and pre-albumin. . Continue to monitor volume status closely with daily weights and I/O. Continue warfarin and monitor INR stool occult blood is ordered-negative hg dropped 6.8 onn 03/21-received a unit of blood GI saw him- no need for intervention pt is on protonic Iron is low- will replace -no s/s of bleeding will restart coumadin and continue to monitor (6) Nonischemic cardiomyopathy: Code(s): I42.8 - Other cardiomyopathies Status: Acute (7) Hypertension: Code(s): I10 - Essential (primary) hypertension Status: Acute Assessment and Plan: reviewed and stable (8) Atrial fibrillation: Code(s): I48.91 - Unspecified atrial fibrillation Status: Acute Assessment and Plan: Coumadin 2.5 sat sun and 3.5 mg mon-fri (9) Chronic anticoagulation: Code(s): Z79.01 - termite helper (current) use of anticoagulants Status: Acute Assessment and Plan: inr- 13.9 on 03/19- vit k x 1 dose was given 03/20- inr is down to 11.3- will order vit k x 1 5 mg po close monitor stool for occult is ordered-follow no s/s of bleeding holding coumadin 03/21- INR 2.4 today- but hg dropped to 6.8-so will not restart at this time stool for occult blood negative pt recently had egd/colonscopy- polyps were found -GI consulted- no intervention no active bleed- will monitor and restart coumadin today (10) Bacteremia: Code(s): R78.81 - Bacteremia Status: Acute Assessment and Plan: Bc positive on 03/19- staph aureus repeated blood cultures- prelim- neg- the final was positive for staph aureus again discussed with Pharm ID- remains on rocephin for now mrsa swab ordered unclear the source for bacteremia -will order echo and consult card for TWYLA chest xray, UA echo, cards consulted for possible TWYLA to r/o endocarditis CT chest ordered CT abd/pelvis ordered to r/o any pockets of infection/eval buttocks wound (11) Sacral wound: Code(s): S31.000A - Unspecified open wound of lower back and pelvis without penetration into retroperitoneum, initial encounter Status: Acute Assessment and Plan: present on admission wound care eval completed: stage 3 pressure ulcer. upper jasmyne buttocks. 100% healthy red tissues. no s/s of infection noted. silbver gel, topical antimicrobial coverage. ABD pad. Specialty bed with air mattress CT abd/pelvis ordered to eval wound Time Spent With Patient Time with patient: Greater than 35 minutes Subjective Date/time seen: 03/24/24 08:26 Interval history: Interval history: This is a 74-year-old male with multiple medical problems including atrial fibrillation, nonischemic cardiomyopathy, hypertension, hyperlipidemia, and insulin-dependent type 2 diabetes mellitus who presented to the emergency department via EMS from [facility] for evaluation of foot wounds. The patient provides the following history. He is known to myself and the the orthopedic specialty hospital service from an admission a little over a month ago at which time he was admitted with generalized weakness, urinary tract infection, and an overall decline in functional status. He was discharged to [facility] for custodial rehab where he reports that he has been in bed a majority of the time and it does not sound as though he participates much in physical therapy. He has developed wounds on his feet which are being monitored by a wound nurse and that nurse was concerned today for infection and he was sent to the ED. Due to neuropathy he really does not have any pain in his feet. He is otherwise feeling okay and denies fever, chills, sweats, cold and flu symptoms, chest pain, shortness of breath, nausea, vomiting, diarrhea, and dysuria. In the ED: Vital signs were stable on arrival. Labs were significant for a WBC count of 17.5, hemoglobin 8.1, sodium 129, potassium 5.2, BUN 47, creatinine 2.10, glucose 296, albumin 2.8. X-rays of both heels showed no acute osseous abnormalities. He was started on antibiotics for suspected diabetic foot infection and he is being admitted in this setting. pt is seen and examined. Pt is alert, oriented, in no distress. 03/21= seen this am. Doing well, no acute complains. no chills, no chest pain. IV antibiotics 03/22- gi eval done. no s/s of bleeding reported. pt needs a lot of encouragement to participate in any activities. 03/23- reports uneventful night. Discussed returning to [facility] but he states that he wants to go to a different place. Care coordination is working on placement if possible to different facility. 03/24- blood cultures-second set is back positive final result- staying in the hospital until source is identified and controlled and repeat culture negative. Reports some cough, no chill.s Pt never had any ortho surgery, no metal in body. no valve replacements. Review of Systems Review of Systems: pt is doing fairly well- reports no acute pain, no blood in urine or stool. Exam Narrative: General: Chronically ill-appearing male in the semi-Cat position in bed. Weight: 134.9 kg. BMI: 37.2. HEENT: Normocephalic, atraumatic. PERRL, EOMI. Sclera anicteric. Tacky mucous membranes. Neck: Supple. No JVD or lymphadenopathy. Respiratory: Respirations are nonlabored and lungs are clear to auscultation. Cardiovascular: Irregularly irregular rate and rhythm. Gastrointestinal: Abdomen is soft, protuberant, nontender, and nondistended with positive bowel sounds. Skin: Warm and dry. Generalized pallor. Extremities: No cyanosis or clubbing. Legs are large with pitting edema which seems to be less severe compared to last month. Chronic skin changes of bilateral lower legs consistent with venous stasis dermatitis. there is a pressure ulcer on the right heel and a large ulcerated area on the plantar aspect of the left foot extending laterally. The webspace between the left 4th and 5th toes has a small amount of discharge in the left 5th toe was erythematous and warm, extending to the lateral dorsal aspect of the foot. He has limited sensation and has no pain with palpation of the wounds. Diminished pulses in the feet. Neurological: Alert and oriented. Cranial nerves 2-12 are grossly intact. No pronator drift. He can barely lift his legs off the bed 1 in before letting them fall. This is a chronic finding. Hand hand therapist are equal bilaterally. No focal strength deficits in the upper extremities. Sensation diminished in the lower extremities. Psychiatric: Pleasant and cooperative with appropriate mood and flat affect. Const: General: comfortable Objective Data Vital Signs Vital Signs: Vital Signs - 24 hr 03/23/24 09:09 03/23/24 14:00 03/23/24 20:00 Temperature 98.2 F Pulse Rate 80 97 Respiratory Rate 18 Blood Pressure 124/71 Pulse Oximetry 99 Oxygen Delivery Room Air 03/23/24 21:00 03/24/24 04:25 Temperature 97.4 F L 98.9 F Pulse Rate 94 89 Respiratory Rate 20 20 Blood Pressure 131/65 139/65 Pulse Oximetry 97 99 Oxygen Delivery Intake/Output Intake/Output: Intake & Output 03/21/24 03/22/24 03/23/24 03/24/24 23:59 23:59 23:59 23:59 Intake Total 2220 850 780 300 Output Total 2150 1885 1725 450 Balance 70 -1875 -945 -150 Meds/Results Medications: Active Medications Generic Name Dose Route Start Last Admin Trade Name Glenq PRN Reason Stop Dose Admin Acetaminophen 650 mg 03/19/24 20:56 03/23/24 21:04 Acetaminophen 325 Mg Tablet PO 650 mg Q6H PRN Administration Mild Pain (1-3) or Fever Atorvastatin Calcium 80 mg 03/20/24 09:00 03/23/24 09:09 Atorvastatin 40 Mg Tablet PO 80 mg DAILY CARMELA Administration Carvedilol 12.5 mg 03/19/24 21:00 03/23/24 21:02 Carvedilol 12.5 Mg Tablet PO 12.5 mg Q12HR CARMELA Administration Dextrose 12.5 gm 03/19/24 17:24 Dextrose 50% 25 Gm/50 Ml Syringe IV PUSH PRN PRN Hypoglycemia Protocol Furosemide 40 mg 03/20/24 09:00 03/23/24 09:09 Furosemide 40 Mg Tablet PO 40 mg DAILY CARMELA Administration Glucagon 1 mg 03/19/24 17:24 Glucagon For Inj 1 Mg Vial IM PRN PRN Hypoglycemia Protocol Glucose 15 gm 03/19/24 17:24 Glucose Oral Gel 15 Gm Of Glucse In 37.5 Gm Tube PO PRN PRN Hypoglycemia Protocol Dextrose 1,000 mls @ 100 mls/hr 03/19/24 17:24 Dextrose 5% 1,000 Ml IVPB PRN PRN Hypoglycemia Protocol Ceftriaxone Sodium 2 gm in 100 mls @ 200 mls/hr 03/22/24 16:00 03/23/24 17:23 Rocephin 2 Gm/Ns 100 Ml IVPB 200 mls/hr Q24H CARMELA Administration Insulin Aspart 2 - 4 units 03/19/24 21:00 03/23/24 21:09 Insulin Aspart (*Bkc) 100 Units/Ml SUB-Q Not Given HS [facility] Protocol Insulin Aspart 4 - 8 units 03/20/24 08:00 03/23/24 17:37 Insulin Aspart (*Bkc) 100 Units/Ml SUB-Q Not Given TIDWM [facility] Protocol Insulin Human Regular 40 units 03/20/24 08:00 03/23/24 09:08 Insulin Human Regular (*Bkc) 100 Units/Ml SUB-Q 40 units DAILY@0800 CAR[facility] Administration Pantoprazole Sodium 40 mg 03/22/24 09:00 03/23/24 21:02 Pantoprazole Sodium Iv 40 Mg Vial IV PUSH 40 mg Q12HR CARMELA Administration Perflutren Lipid Microsphere 0 ml 03/23/24 14:25 Perflutren Lipid Microspheres 1.5 Ml Vial Diluted To 10 Ml Total Volume IV PUSH 03/26/24 14:26 ONCE PRN adequate visualization Protocol Sodium Hypochlorite 1 applic 03/20/24 09:00 03/23/24 21:03 Sod Hypochlorite 1/4 Strength 473 Ml TOPICAL 1 applic Q12HR CARMELA Administration Warfarin Sodium 2.5 mg 03/23/24 17:00 03/23/24 17:24 Warfarin (*Pbkc) 2.5 Mg Tablet PO 2.5 mg DAILY@1700 [facility] Administration Warfarin Sodium 1 mg 03/25/24 17:00 Warfarin (*Pbkc) 1 Mg Tablet PO MoTuWeThFr@1700 [facility] Radiology Results: ITS Impressions Heel X-Ray 03/19/24 11:30 IMPRESSION: No acute osseous abnormality. Abdomen Ultrasound 03/23/24 09:20 IMPRESSION: 1. Cholelithiasis. No evidence of acute cholecystitis. Labs Labs: Laboratory Results - last 24 hr 03/23/24 03/23/24 03/23/24 11:46 16:56 21:08 WBC RBC Hgb Hct MCV MCH MCHC RDW Plt Count MPV PT INR Sodium Potassium Chloride Carbon Dioxide Anion Gap BUN Creatinine Estim Creat Clear Calc Estimated GFR Glucose POC Capillary Glucose 118 H 110 H 121 H Calcium 03/24/24 05:52 WBC 9.9 RBC 2.67 L Hgb 7.9 L Hct 25.0 L MCV 93.6 MCH 29.6 MCHC 31.6 L RDW 17.2 H Plt Count 281 MPV 9.2 PT 31.3 H INR 2.9 Sodium 136 L Potassium 3.6 Chloride 106 Carbon Dioxide 29 Anion Gap 1 L BUN 30 H Creatinine 1.70 H Estim Creat Clear Calc 52 Estimated GFR 40 L Glucose 125 H POC Capillary Glucose Calcium 8.1 L Quality VTE Prophylaxis VTE prophylaxis: pharmacologic ordered (on warfarin)
[2024-03-24 08:50] LABS: Glucose Point of Care 134 mg/dl (65-105)
[2024-03-24] MEDS: PANTOPRAZOLE SODIUM IV 40 MG VIAL IV PUSH ×2 (09:30→21:30)
[2024-03-24 09:33] VITALS: PULSE 92
[2024-03-24] MEDS: FUROSEMIDE 40 MG TABLET PO (09:33)
[2024-03-24] MEDS: carvediloL 12.5 MG TABLET PO ×2 (09:33→21:30)
[2024-03-24] MEDS: ATORVASTATIN 40 MG TABLET 80 MG PO (09:34)
[2024-03-24] MEDS: INSULIN HUMAN REGULAR (*BKC) 100 UNITS/ML 40 UNITS SUB-Q (09:37)
--- NOTE | 2024-03-24 10:55 | P.CONCA_ITS ---
Assessment and Plan Assessment and plan (1) Afib: Qualifiers: Atrial fibrillation type: paroxysmal Qualified Code(s): I48.0 - Paroxysmal atrial fibrillation Code(s): I48.91 - Unspecified atrial fibrillation Status: Acute (2) Nonischemic cardiomyopathy: Code(s): I42.8 - Other cardiomyopathies Status: Acute (3) Bacteremia due to Staphylococcus: Code(s): R78.81 - Bacteremia; B95.8 - Unspecified staphylococcus as the cause of diseases classified elsewhere Status: Acute Plan Assessment: 1. Diabetic left foot wounds on IV antibiotics; sacral ulcer 2. Bacteremia with Staph aureus (sensitivity pending) on IV antibiotics; source most likely foot wounds 3. Nonischemic cardiomyopathy 4. Diabetes mellitus type 2 5. Hypertension 6. Hyperlipidemia 7. Acute on chronic anemia with hemoglobin 7.9 8. CKD stage 4 with creatinine 1.8 9. Venous insufficiency 10. Atrial fibrillation- rate controlled 11. Asthma Plan: 1. TWYLA to evaluate for infective endocarditis if staph aureus sensitivity shows methicillin-resistance (MRSA). Patient agrees with the plan. Keep NPO at midnight 2. Guideline directed medical therapy for cardiomyopathy. Continue Coreg. Losartan and spironolactone on hold. Resume when okay from renal standpoint 3. Continue Coumadin for anticoagulation given a fib 4. Continue Lasix. Check renal function daily 5. Continue statin 6. Check and replace electrolytes as needed keeping potassium more than 4 and creatinine more than 2 7. Infectious Disease consult for bacteremia. Appreciate recommendations Number rate management of other medical issues per primary team History of Present Illness History of Present Illness Consult date/time: 03/24/24 10:55 Reason For Visit: Diabetic Foot Ulcer Narrative: 74-year-old white male with past medical history of nonischemic cardiomyopathy, hypertension, type 2 diabetes, atrial fibrillation, asthma, hyperlipidemia, venous insufficiency, CKD stage 4, monoclonal gammopathy of unknown significance, chronic anemia presented to the ED via EMS from [facility] for evaluation of foot wounds. At [facility], who is wounds were being monitored by a wound care nurse who was concerned for infection. He does not have any pain in his feet due to neuropathy. He denies any fevers, chills, sweats, of cough, chest pain, shortness of breath, dizziness, lightheadedness, palpitations, leg swelling, recent weight gain, nausea, emesis, or diarrhea. He was started on antibiotics for diabetic foot infection. Blood cultures from this admission grew Staph aureus (sensitivity pending) and Cardiology was consulted for TWYLA to evaluate for endocarditis. Cardiac and other work-up: Hemoglobin: 7.9 Creatinine: 1.7 (baseline 1.7-2) Troponin: Not checked EKG: AFib with rate of 70, inferior infarct age undetermined Blood cultures: 2 of 2 bottles from 03/19 and 03/21 grew Staph aureus Review of Systems 2 Review of Systems: A complete review of systems was performed and negative other than those mentioned in the [facility] Past Medical History Medical History (Updated 03/24/24 @ 09:30 by Gela Pedraza, SILVIO) Acute on chronic kidney failure Bacteremia due to Staphylococcus Acute on chronic anemia Monoclonal gammopathy of unknown significance Chronic anticoagulation Chronic kidney disease, stage 4 (severe) Nonischemic cardiomyopathy Venous insufficiency Hypertension Insulin dependent type 2 diabetes mellitus Atrial fibrillation Vitamin D deficiency Urticaria Mixed hyperlipidemia Asthma Basal cell carcinoma (BCC) of brow Surgical History Surgical History History of cardiac catheterization no obstructive disease per patient report History of cardioversion History of bilateral cataract extraction History of basal cell carcinoma excision History of arthroscopy of both knees History of colonoscopy with polypectomy Family History Family History Father Family history of emphysema, Onset Age: 69 Social History Social History Social History: Surrogate medical decision maker: Jose Isaac (son) or Josy Enrico (sibling). Code status: Full code. Smoking status: Never smoker Alcohol intake: never Alcohol use details: social alcohol use in moderation Substance use: never Substance use type: does not use Do You Feel Safe in your Home?: Yes Lack of Transportation: No Lack of Food: Never True Current Housing: I Have Housing Concerned About Future Housing: No Difficulty Paying Gas/Electric Bills: No Difficulty Paying for Meds: No Currently Unemployed: No Education: Decline to Answer Difficulty w/ Childcare or Family Care: No Living arrangements: alone Additional living arrangements comments: the patient lives in his own home in [place] Occupation/Education: retired Spiritual care concerns: No Meds Home Medications and Allergies Home Medications ?Medication ?Instructions ?Recorded ?Confirmed ?Type losartan 50 mg tablet 50 mg PO DAILY 01/30/19 03/19/24 History potassium chloride 20 mEq 20 meq PO DAILY 01/30/19 03/19/24 History tablet,extended release spironolactone 50 mg tablet 50 mg PO DAILY 01/30/19 03/19/24 History cholecalciferol (vitamin D3) 1,250 1,250 mcg PO WEEKLY #14 tabs 09/14/23 03/19/24 Rx mcg (50,000 unit) tablet semaglutide 1 mg/dose (2 mg/1.5 1 mg subcut WEEKLY 11/01/23 03/19/24 History mL) subcutaneous pen injector flash glucose sensor (FreeStyle #2 kits 11/24/23 03/19/24 Rx Germania 2 Sensor kit) pen needle, diabetic 32 gauge x #200 ea 12/13/23 03/19/24 Rx 5/32 (BD Lona 2nd Gen Pen Needle) glucagon 1 mg/0.2 mL subcutaneous 1 mg (0.2 mL) subcut ONCE #0.4 mL 01/15/24 03/19/24 Rx auto-injector (Gvoke HypoPen 2-Pack) insulin regular hum U-500 conc 500 40 unit subcut DAILY 01/15/24 03/19/24 History unit/mL(3 mL) subcut pen (Humulin R U-500 (Conc) Insulin Kwikpen) atorvastatin 80 mg tablet 80 mg PO DAILY #90 tabs 01/24/24 03/19/24 Rx fenofibrate 54 mg tablet 54 mg PO DAILY 02/11/24 03/19/24 History carvedilol 25 mg tablet 12.5 mg (1/2 x 25 mg) PO BID #60 02/16/24 03/19/24 Rx tabs furosemide 80 mg tablet 40 mg (1/2 x 80 mg) PO DAILY #15 02/16/24 03/19/24 Rx tabs warfarin 5 mg tablet 2.5 mg (1/2 x 5 mg) PO DAILY #15 02/16/24 03/19/24 Rx tabs Allergies Allergy/AdvReac Type Severity Reaction Status Date / Time No Known Allergies Allergy Verified 03/19/24 12:14 Vital Signs Vital Signs - 24 hr 03/23/24 14:00 03/23/24 20:00 03/23/24 21:00 Temperature 36.8 C 36.3 C L Pulse Rate 97 94 Respiratory Rate 18 20 Blood Pressure 124/71 131/65 Pulse Oximetry 99 97 Oxygen Delivery Room Air 03/24/24 04:25 03/24/24 09:33 Temperature 37.2 C Pulse Rate 89 92 Respiratory Rate 20 Blood Pressure 139/65 Pulse Oximetry 99 Oxygen Delivery Exam 2 Narrative: General: Alert oriented x3, no acute distress Neck: Supple, no JVD Chest: Bilaterally clear to auscultation, no rales or rhonchi Cardiac: S1, S2 plus, irregularly irregular, tachycardic, no murmurs or rubs Extremities: No peripheral edema, diabetic left foot wounds, no skin rash Neurologic: Alert oriented x3, no focal neurological deficits Results Labs and Meds 03/24/24 05:52 03/24/24 05:52 Lab results: Coagulation 03/24/24 Range/Units 05:52 PT 31.3 H (11.1-14.7) Seconds CBC 03/24/24 Range/Units 05:52 WBC 9.9 (4.5-10.0) K/mm3 RBC 2.67 L (4.6-6.20) M/mm3 Hgb 7.9 L (14.0-18.0) g/dL Hct 25.0 L (42.0-52.0) % Plt Count 281 (150-375) k/mm3 Comprehensive Metabolic Panel 03/24/24 Range/Units 05:52 Sodium 136 L (137-145) mmol/L Potassium 3.6 (3.4-5.0) mmol/L Chloride 106 (98-107) mmol/L Carbon Dioxide 29 (22-30) mmol/L BUN 30 H (9-20) mg/dL Creatinine 1.70 H (0.7-1.3) mg/dL Glucose 125 H (65-110) mg/dL Calcium 8.1 L (8.4-10.2) mg/dL Intake and Output 03/23/24 03/24/24 03/24/24 23:59 07:59 15:59 Intake Total 240 300 200 Output Total 800 450 Balance -560 -150 200 Intake: Oral 240 300 200 Output: Catheter Urine 800 450 Urethral Catheter 800 450 Other: Number of Bowel Movements Today 2
[2024-03-24] MEDS: SOD HYPOCHLORITE 1/4 STRENGTH 473 ML 1 APPLIC TOPICAL (11:15)
[2024-03-24 13:08] LABS: Glucose Point of Care 124 mg/dl (65-105)
[2024-03-24 14:00] VITALS: BP 136/61; PULSE 83; RESP 16; TEMP 36.3; O2SAT 100
[2024-03-24 14:26] LABS: Add Urine Microscopic? YES; Appearance Urine Cloudy (Clear); Bacteria Urine None Seen /hpf; Bilirubin Urine Negative (Negative); Blood Urine 2+ (Negative); Color Urine Yellow (Yellow); Glucose Urine UA Negative (Negative); Ketones Urine Negative (Negative); Leukocyte Esterase Ur 1+ LEU/UL (Negative); Need Manual Microscopic Reviewed; Nitrate Urine Negative (Negative); Protein Urine Trace mg/dL (Negative); Specific Grav Ur 1.011 (1.001-1.035); Squamous Epithelial Cell Urine Occasional /hpf (Few); Urobilinogen Urine 0.2 mg/dL (<2.0); WBC Urine 21-50 /hpf (0-3)
[2024-03-24 14:48] LABS: SARS-CoV-2 RNA PCR Positive (Negative)
[2024-03-24 15:23] LABS: MRSA (PCR) NOT DETECTED (NOT DETECTE)
[2024-03-24 17:19] LABS: Glucose Point of Care 98 mg/dl (65-105)
[2024-03-24] MEDS: cefTRIAXone 2 GM/NS 100 ML 2 GM/100 ML BAG IVPB (17:41)
[2024-03-24 20:55] LABS: Glucose Point of Care 102 mg/dl (65-105)
[2024-03-24 21:30] VITALS: PULSE 87
[2024-03-24 21:41] VITALS: BP 116/67; PULSE 89; RESP 18; TEMP 36.7; O2SAT 99
--- NOTE | 2024-03-25 | ECHO_ITS ---
Patient Info Name: Erwin Isaac Age: 74 years : 1950 Gender: Male Ht: 75 in Wt: 304 lbs BSA: 2.75 m2 HR: 90 bpm BP: 113 / 59 mmHg Technical Quality: Fair Exam Date: 03/25/2024 2:58 PM Exam Location: Echo Lab Patient Status: Inpatient Admit Date: 03/21/2024 Staff Ordering Physician: Gela Pedraza APRN Journal Entry Audit Clerk: Astrid Don RDCS Attending Provider: Sanjay Goodrich MD Referring Physician: Milo JERONIMO; Exam Type: CA echo doppler color flow Study Info Indications - TWO POSITIVE BLOOD CULTURES/ LOOKING FOR SOURCE Complete two-dimensional, color flow and Doppler transthoracic echocardiogram is performed. COVID POSITIVE. Summary 1. Complete two-dimensional, color flow and Doppler transthoracic echocardiogram is performed. 2. There is normal biventricular systolic function. 3. There is no significant valvular disease in this study. Left Ventricle The left ventricle is normal in size and systolic function. There is mild concentric left ventricular hypertrophy. The left ventricular ejection fraction is visually estimated to be 50-55%. Right Ventricle The right ventricle is normal in size and systolic function. Left Atria The left atrium is moderately dilated. Right Atria The right atrium is dilated. Atrial Septum The atrial septum is not well visualized. Aortic Valve The aortic valve is probably trileaflet and opens well. There is no aortic regurgitation. Pulmonic Valve The pulmonic valve is not well visualized. There is no color Doppler evidence of pulmonic valve regurgitation. Mitral Valve The mitral valve is normal. There is no mitral regurgitation. Tricuspid Valve The tricuspid valve is grossly normal. There is trace tricuspid regurgitation. Pericardium/Pleural There is no pericardial effusion in the available views. Inferior Vena Cava Dilated inferior vena cava with >50% collapse upon inspiration consistent with elevated right atrial pressure, 8 mmHg. Dilated inferior vena cava with >50% collapse upon inspiration consistent with elevated right atrial pressure, 8 mmHg. Aorta The aortic root at the level of the sinus of Valsalva measures 3.0 cm in diameter. Left Ventricular Outflow Tract Name Value Normal LVOT 2D LVOT Diameter 2.1 cm LVOT Doppler LVOT Peak Gradient 3 mmHg LVOT Mean Gradient 2 mmHg LVOT VTI 17 cm LVOT VTI/AV VTI Ratio 0.6 LVOT Stroke Volume 58 ml LVOT CO 5.4 l/min LVOT CI 2.0 l/min/m2 Pulmonic Valve Name Value Normal RVOT Doppler RVOT Peak Gradient 6 mmHg PV Doppler PV Peak Gradient 7 mmHg Mitral Valve Name Value Normal MV Doppler MV Decel [place] 1,001 cm/s2 MV PHT 40 ms MV Area (PHT) 5.5 cm2 4.0-5.0 MV Diastolic Function MV E Peak Velocity 138 cm/s MV A Peak Velocity 1 cm/s MV E/A 155.2 MV Decel Time 138 ms MV Annular TDI MV E/e' (Septal) 9.2 <=8.0 MV E/e' (Lateral) 9.9 <=8.0 MV E/e' (Average) 9.6 Tricuspid Valve Name Value Normal Estimated PAP/RSVP RA Pressure 8 mmHg <=5 Aorta Name Value Normal Ascending Aorta Ao Root Diameter (MM) 3.0 cm Ao Root Diam Index (MM) 1.1 cm/m2 Aortic Valve Name Value Normal AV Doppler AV Peak Velocity 180 cm/s AV Peak Gradient 11 mmHg AV Mean Gradient 6 mmHg AV VTI 28 cm AV Area (Cont Eq VTI) 2.1 cm2 >=3.0 AV Area (Cont Eq Fab) 1.9 cm2 AV Regurgitation 2D LVOT Area 3.5 cm2 Ventricles Name Value Normal LV Dimensions 2D/MM IVS Diastolic Thickness (2D) 1.5 cm 0.6-1.0 LVID Diastole (2D) 4.8 cm 4.2-5.8 LVIW Diastolic Thickness (2D) 1.7 cm 0.6-1.0 LVID Systole (2D) 3.5 cm 2.5-4.0 LVOT Diameter 2.1 cm LV Mass (2D Cubed) 335.06 g 88.00-224.00 LV Mass Index (2D Cubed) 122 g/m2 49-115 Relative Wall Thickness (2D) 0.72 LV Fractional Shortening/Ejection Fraction 2D/MM LV Fractional Shortening (2D) 27 % 25-43 LV EF (2D Teicholz) 53 % 52-72 LV Diastolic Volume (4C MOD) 115 ml LV EF (4C MOD) 51 % LV Diastolic Volume (2C MOD) 96 ml LV EF (2C MOD) 47 % LV Diastolic Volume (BP MOD) 111 ml 62-150 LV Diastolic Volume Index (BP MOD) 40 ml/m2 34-74 LV Systolic Volume (BP MOD) 55 ml 21-61 LV Systolic Volume Index (BP MOD) 20 ml/m2 11-31 LV EF (BP MOD) 50 % 52-72 LV Diastolic Length (4C) 8.4 cm LV Systolic Length (4C) 7.0 cm LV Stroke Volume (4C MOD) 59 ml Atria Name Value Normal LA Dimensions LA Dimension (MM) 4.9 cm 3.0-4.1 LA Volume (4C A-L) 99 ml LA Volume (BP A-L) 106 ml RA Dimensions RA Area (4C) 25.6 cm2 <=18.0 Report Signatures
[2024-03-25] MEDS: SOD HYPOCHLORITE 1/4 STRENGTH 473 ML 1 APPLIC TOPICAL ×3 (04:32→21:43)
[2024-03-25 06:00] VITALS: BP 113/59; PULSE 90; RESP 18; TEMP 36.4; O2SAT 100
[2024-03-25 06:12] LABS: Hematocrit 25.5 % (42.0-52.0); Hemoglobin 8.1 g/dL (14.0-18.0); Mean Corpuscular HGB Conc 31.8 g/dl (32-36); Mean Corpuscular Hemoglobin 30.2 pg (26-34); Mean Corpuscular Volume 95.1 fl (80-100); Mean Platelet Volume 9.6 fl (7.4-10.4); Platelet Count Result 278 k/mm3 (150-375); Red Blood Count 2.68 M/mm3 (4.6-6.20); Red Cell Distribution Width 17.2 % (11.5-14.5); White Blood Count 9.4 K/mm3 (4.5-10.0)
[2024-03-25 06:21] LABS: INR 3.1; Prothrombin Time 32.7 Seconds (11.1-14.7)
[2024-03-25 06:33] LABS: Anion Gap -1 mmol/L (4-12); Blood Urea Nitrogen 27 mg/dL (9-20); Calcium 8.1 mg/dL (8.4-10.2); Carbon Dioxide 31 mmol/L (22-30); Chloride 105 mmol/L (98-107); Estimated CRCL calculation 59 ml/min; Estimated Glomerular Filt Rate 46; Glucose 100 mg/dL (65-110); Potassium 3.5 mmol/L (3.4-5.0); Sodium 135 mmol/L (137-145)
[2024-03-25 08:05] LABS: Glucose Point of Care 102 mg/dl (65-105)
[2024-03-25 10:41] VITALS: PULSE 96
[2024-03-25] MEDS: carvediloL 12.5 MG TABLET PO (10:41)
[2024-03-25] MEDS: PANTOPRAZOLE SODIUM IV 40 MG VIAL IV PUSH ×2 (10:44→21:40)
[2024-03-25] MEDS: ATORVASTATIN 40 MG TABLET 80 MG PO (10:44)
[2024-03-25] MEDS: FUROSEMIDE 40 MG TABLET PO (10:44)
[2024-03-25 11:28] LABS: Glucose Point of Care 151 mg/dl (65-105)
--- NOTE | 2024-03-25 13:18 | P.PNIM_ITS ---
Progress Note: A&P Assessment and Plan (1) Diabetic foot ulcers: Code(s): E11.621 - Type 2 diabetes mellitus with foot ulcer; L97.509 - Non-pressure chronic ulcer of other part of unspecified foot with unspecified severity Status: Acute Assessment and Plan: - cellulitic changes over the left 5th digit with erythema and warmth extending onto the dorsum of the left lateral foot started on broad-spectrum antibiotics Wound nurse eval completed- appreciate recommendations unstageable pressure ulcer to heels- left posterior heel. small deep tissues injury... no s/s of infection. 1/4 strength dankin solution moisten gauze to help decrease bacterial load, abd, kerlex. waffle boots.. -Pharm ID is following along with recommendations (2) Insulin dependent type 2 diabetes mellitus: Code(s): E11.9 - Type 2 diabetes mellitus without complications; Z79.4 - snf (current) use of insulin Status: Acute Assessment and Plan: Continue basal insulin. Initiate sliding scale insulin, Accu-Cheks, and hypoglycemic protocol. BS reviewed- stable (3) Chronic kidney disease, stage 4 (severe): Code(s): N18.4 - Chronic kidney disease, stage 4 (severe) Status: Acute Assessment and Plan: 1.8 [id number]- trending down monitor (4) Hyperkalemia: Code(s): E87.5 - Hyperkalemia Status: Acute Assessment and Plan: receieved a liter of normal saline overnight. Potassium is a bit high but should improve with fluids however will hold losartan, potassium supplement, and spironolactone for now poor nutrition-order supplements 3.9 today- moniotor (5) Anemia: Code(s): D64.9 - Anemia, unspecified Status: Acute Assessment and Plan: Check iron studies, B12, folate, and pre-albumin. . Continue to monitor volume status closely with daily weights and I/O. Continue warfarin and monitor INR stool occult blood is ordered-negative hg dropped 6.8 onn 03/21-received a unit of blood GI saw him- no need for intervention pt is on protonic Iron is low- will replace -no s/s of bleeding will restart coumadin and continue to monitor (6) Nonischemic cardiomyopathy: Code(s): I42.8 - Other cardiomyopathies Status: Acute (7) Hypertension: Code(s): I10 - Essential (primary) hypertension Status: Acute Assessment and Plan: reviewed and stable (8) Atrial fibrillation: Code(s): I48.91 - Unspecified atrial fibrillation Status: Acute Assessment and Plan: Coumadin 2.5 sat sun and 3.5 mg mon-fri (9) Chronic anticoagulation: Code(s): Z79.01 - neonatal nurse practitioner (current) use of anticoagulants Status: Acute Assessment and Plan: inr- 13.9 on 03/19- vit k x 1 dose was given 03/20- inr is down to 11.3- will order vit k x 1 5 mg po close monitor stool for occult is ordered-follow no s/s of bleeding holding coumadin 03/21- INR 2.4 today- but hg dropped to 6.8-so will not restart at this time stool for occult blood negative pt recently had egd/colonscopy- polyps were found -GI consulted- no intervention no active bleed- will monitor and restart coumadin today (10) Bacteremia: Code(s): R78.81 - Bacteremia Status: Acute Assessment and Plan: Bc positive on 03/19- staph aureus repeated blood cultures- prelim- neg- the final was positive for staph aureus again discussed with Pharm ID- remains on rocephin for now mrsa swab ordered unclear the source for bacteremia -will order echo and consult card for TWYLA chest xray, UA echo, cards consulted for possible TWYLA to r/o endocarditis CT chest ordered CT abd/pelvis ordered to r/o any pockets of infection/eval buttocks wound 03/25- awating 3rd culture results pharm ID following remains afebrile, wbc normal (11) Sacral wound: Code(s): S31.000A - Unspecified open wound of lower back and pelvis without penetration into retroperitoneum, initial encounter Status: Acute Assessment and Plan: present on admission wound care eval completed: stage 3 pressure ulcer. upper jasmyne buttocks. 100% healthy red tissues. no s/s of infection noted. silbver gel, topical antimicrobial coverage. ABD pad. Specialty bed with air mattress CT abd/pelvis ordered to eval wound ct abd/pelvis- unremarkable Time Spent With Patient Time with patient: Greater than 35 minutes Subjective Date/time seen: 03/25/24 13:18 Interval history: Interval history: This is a 74-year-old male with multiple medical problems including atrial fibrillation, nonischemic cardiomyopathy, hypertension, hyperlipidemia, and insulin-dependent type 2 diabetes mellitus who presented to the emergency department via EMS from [facility] for evaluation of foot wounds. The patient provides the following history. He is known to myself and the hospitalist service from an admission a little over a month ago at which time he was admitted with generalized weakness, urinary tract infection, and an overall decline in functional status. He was discharged to [facility] for nursing home rehab where he reports that he has been in bed a majority of the time and it does not sound as though he participates much in physical therapy. He has developed wounds on his feet which are being monitored by a wound nurse and that nurse was concerned today for infection and he was sent to the ED. Due to neuropathy he really does not have any pain in his feet. He is otherwise feeling okay and denies fever, chills, sweats, cold and flu symptoms, chest pain, shortness of breath, nausea, vomiting, diarrhea, and dysuria. In the ED: Vital signs were stable on arrival. Labs were significant for a WBC count of 17.5, hemoglobin 8.1, sodium 129, potassium 5.2, BUN 47, creatinine 2.10, glucose 296, albumin 2.8. X-rays of both heels showed no acute osseous abnormalities. He was started on antibiotics for suspected diabetic foot infection and he is being admitted in this setting. pt is seen and examined. Pt is alert, oriented, in no distress. 03/21= seen this am. Doing well, no acute complains. no chills, no chest pain. IV antibiotics 03/22- gi eval done. no s/s of bleeding reported. pt needs a lot of encouragement to participate in any activities. 03/23- reports uneventful night. Discussed returning to long term but he states that he wants to go to a different place. Care coordination is working on placement if possible to different facility. 03/24- blood cultures-second set is back positive final result- staying in the hospital until source is identified and controlled and repeat culture negative. Reports some cough, no chill.s Pt never had any ortho surgery, no metal in body. no valve replacements. 03/25- pt is seen and examined. he is doing ok, no acute events overnight. tested positive for covid as was exposed to his brother who ended up with covid. some cough but overall asymptomatic Review of Systems Review of Systems: pt is doing fairly well- reports no acute pain, no blood in urine or stool. Exam Narrative: General: Chronically ill-appearing male in the semi-Cat position in bed. Weight: 134.9 kg. BMI: 37.2. HEENT: Normocephalic, atraumatic. PERRL, EOMI. Sclera anicteric. Tacky mucous membranes. Neck: Supple. No JVD or lymphadenopathy. Respiratory: Respirations are nonlabored and lungs are clear to auscultation. Cardiovascular: Irregularly irregular rate and rhythm. Gastrointestinal: Abdomen is soft, protuberant, nontender, and nondistended with positive bowel sounds. Skin: Warm and dry. Generalized pallor. Extremities: No cyanosis or clubbing. Legs are large with pitting edema which seems to be less severe compared to last month. Chronic skin changes of bilateral lower legs consistent with venous stasis dermatitis. there is a pressure ulcer on the right heel and a large ulcerated area on the plantar aspect of the left foot extending laterally. The webspace between the left 4th and 5th toes has a small amount of discharge in the left 5th toe was erythematous and warm, extending to the lateral dorsal aspect of the foot. He has limited sensation and has no pain with palpation of the wounds. Diminished pulses in the feet. Neurological: Alert and oriented. Cranial nerves 2-12 are grossly intact. No pronator drift. He can barely lift his legs off the bed 1 in before letting them fall. This is a chronic finding. 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 No focal strength deficits in the upper extremities. Sensation diminished in the lower extremities. Psychiatric: Pleasant and cooperative with appropriate mood and flat affect. Const: General: comfortable Objective Data Vital Signs Vital Signs: Vital Signs - 24 hr 03/24/24 14:00 03/24/24 21:30 03/24/24 21:41 Temperature 97.3 F L 98.0 F Pulse Rate 83 87 89 Respiratory Rate 16 18 Blood Pressure 136/61 116/67 Pulse Oximetry 100 99 03/25/24 06:00 03/25/24 10:41 Temperature 97.6 F Pulse Rate 90 96 Respiratory Rate 18 Blood Pressure 113/59 L Pulse Oximetry 100 Intake/Output Intake/Output: Intake & Output 12/20/24 12/21/24 12/22/24 12/23/24 23:59 23:59 23:59 23:59 Intake Total 850 880 600 336 Output Total 3490 8097 684 700 Balance -0356 -842 150 -364 Meds/Results Medications: Active Medications Generic Name Dose Route Start Last Admin Trade Name Freq PRN Reason Stop Dose Admin Acetaminophen 650 mg 03/19/24 20:56 03/23/24 21:04 Acetaminophen 325 Mg Tablet PO 650 mg Q6H PRN Administration Mild Pain (1-3) or Fever Atorvastatin Calcium 80 mg 03/20/24 09:00 03/25/24 10:44 Atorvastatin 40 Mg Tablet PO 80 mg DAILY CARMELA Administration Carvedilol 12.5 mg 03/19/24 21:00 03/25/24 10:41 Carvedilol 12.5 Mg Tablet PO 12.5 mg Q12HR CARMELA Administration Dextrose 12.5 gm 03/19/24 17:24 Dextrose 50% 25 Gm/50 Ml Syringe IV PUSH PRN PRN Hypoglycemia Protocol Furosemide 40 mg 03/20/24 09:00 03/25/24 10:44 Furosemide 40 Mg Tablet PO 40 mg DAILY CARMELA Administration Glucagon 1 mg 03/19/24 17:24 Glucagon For Inj 1 Mg Vial IM PRN PRN Hypoglycemia Protocol Glucose 15 gm 03/19/24 17:24 Glucose Oral Gel 15 Gm Of Glucse In 37.5 Gm Tube PO PRN PRN Hypoglycemia Protocol Dextrose 1,000 mls @ 100 mls/hr 03/19/24 17:24 Dextrose 5% 1,000 Ml IVPB PRN PRN Hypoglycemia Protocol Ceftriaxone Sodium 2 gm in 100 mls @ 200 mls/hr 03/22/24 16:00 03/24/24 17:41 Rocephin 2 Gm/Ns 100 Ml IVPB 200 mls/hr Q24H CARMELA Administration Insulin Aspart 2 - 4 units 03/19/24 21:00 03/24/24 21:35 Insulin Aspart (*Bkc) 100 Units/Ml SUB-Q Not Given HS CARMELA Protocol Insulin Aspart 4 - 8 units 03/20/24 08:00 03/24/24 17:42 Insulin Aspart (*Bkc) 100 Units/Ml SUB-Q Not Given TIDWM CARMELA Protocol Insulin Human Regular 40 units 03/20/24 08:00 03/24/24 09:37 Insulin Human Regular (*Bkc) 100 Units/Ml SUB-Q 40 units DAILY@0800 [facility] Administration Pantoprazole Sodium 40 mg 03/22/24 09:00 03/25/24 10:44 Pantoprazole Sodium Iv 40 Mg Vial IV PUSH 40 mg Q12HR CARMELA Administration Perflutren Lipid Microsphere 0 ml 03/23/24 14:25 Perflutren Lipid Microspheres 1.5 Ml Vial Diluted To 10 Ml Total Volume IV PUSH 03/26/24 14:26 ONCE PRN adequate visualization Protocol Sodium Hypochlorite 1 applic 03/20/24 09:00 03/25/24 04:32 Sod Hypochlorite 1/4 Strength 473 Ml TOPICAL 1 applic Q12HR [facility] Administration Warfarin Sodium 2.5 mg 03/23/24 17:00 03/24/24 17:41 Warfarin (*Pbkc) 2.5 Mg Tablet PO Not Given DAILY@1700 [facility] Warfarin Sodium 1 mg 03/25/24 17:00 Warfarin (*Pbkc) 1 Mg Tablet PO MoTuWeThFr@1700 [facility] Radiology Results: ITS Impressions Heel X-Ray 03/19/24 11:30 IMPRESSION: No acute osseous abnormality. Abdomen Ultrasound 03/23/24 09:20 IMPRESSION: 1. Cholelithiasis. No evidence of acute cholecystitis. Chest X-Ray 03/24/24 08:53 IMPRESSION: 1. No acute cardiopulmonary disease. Foot X-Ray 03/24/24 10:22 IMPRESSION: 1. No evidence of osteomyelitis. Chest/Abdomen/Pelvis CTA 03/25/24 05:26 IMPRESSION: 1. No pulmonary embolus. 2. Small pleural effusions. 3. Small sliding hiatal hernia. 4. Pulmonary nodules again seen measuring up to 9 mm, which may be infection or malignancy. Noncontrast low-dose chest CT is recommended in 3 months. 5. Mildly enlarged right infrahilar lymph node. Labs Labs: Laboratory Results - last 24 hr 03/21/24 03/24/24 03/24/24 12:03 13:57 17:14 WBC RBC Hgb Hct MCV MCH MCHC RDW Plt Count MPV PT INR Sodium Potassium Chloride Carbon Dioxide Anion Gap BUN Creatinine Estim Creat Clear Calc Estimated GFR Glucose POC Capillary Glucose 98 Calcium Urine Color Yellow Urine Appearance Cloudy H Urine pH 5.0 Ur Specific [place] 1.011 Urine Protein Trace Urine Glucose (UA) Negative Urine Ketones Negative Ur Blood (Man) 2+ H Urine Nitrate Negative Urine Bilirubin Negative Urine Urobilinogen 0.2 Add Ur Microanalysis Reviewed Leukocyte Esterase Rfl 1+ H Urine RBC 6-10 H Urine WBC 21-50 H Ur Squamous Epith Cells Occasional Urine Bacteria None seen Urine Casts 11-20 Nasal MRSA (PCR) Not detected SARS-CoV-2 RNA (RT-PCR) Positive A Crossmatch See Detail 03/24/24 03/25/24 03/25/24 20:49 05:52 07:42 WBC 9.4 RBC 2.68 L Hgb 8.1 L Hct 25.5 L MCV 95.1 MCH 30.2 MCHC 31.8 L RDW 17.2 H Plt Count 278 MPV 9.6 PT 32.7 H INR 3.1 Sodium 135 L Potassium 3.5 Chloride 105 Carbon Dioxide 31 H Anion Gap -1 L BUN 27 H Creatinine 1.50 H Estim Creat Clear Calc 59 Estimated GFR 46 L Glucose 100 POC Capillary Glucose 102 102 Calcium 8.1 L Urine Color Urine Appearance Urine pH Ur Specific [place] Urine Protein Urine Glucose (UA) Urine Ketones Ur Blood (Man) Urine Nitrate Urine Bilirubin Urine Urobilinogen Add Ur Microanalysis Leukocyte Esterase Rfl Urine RBC Urine WBC Ur Squamous Epith Cells Urine Bacteria Urine Casts Nasal MRSA (PCR) SARS-CoV-2 RNA (RT-PCR) Crossmatch 03/25/24 11:22 WBC RBC Hgb Hct MCV MCH MCHC RDW Plt Count MPV PT INR Sodium Potassium Chloride Carbon Dioxide Anion Gap BUN Creatinine Estim Creat Clear Calc Estimated GFR Glucose POC Capillary Glucose 151 H Calcium Urine Color Urine Appearance Urine pH Ur Specific [place] Urine Protein Urine Glucose (UA) Urine Ketones Ur Blood (Man) Urine Nitrate Urine Bilirubin Urine Urobilinogen Add Ur Microanalysis Leukocyte Esterase Rfl Urine RBC Urine WBC Ur Squamous Epith Cells Urine Bacteria Urine Casts Nasal MRSA (PCR) SARS-CoV-2 RNA (RT-PCR) Crossmatch Quality VTE Prophylaxis VTE prophylaxis: pharmacologic ordered (on warfarin)
[2024-03-25 14:00] VITALS: BP 112/54; PULSE 108; RESP 18; TEMP 36.5; O2SAT 95
[2024-03-25 16:29] LABS: Glucose Point of Care 201 mg/dl (65-105)
[2024-03-25] MEDS: INSULIN HUMAN REGULAR (*BKC) 100 UNITS/ML 40 UNITS SUB-Q (16:36)
[2024-03-25] MEDS: INSULIN ASPART (*BKC) 100 UNITS/ML SUB-Q (16:36)
[2024-03-25] MEDS: BENZONATATE 100 MG CAPSULE PO (16:37)
[2024-03-25] MEDS: cefTRIAXone 2 GM/NS 100 ML 2 GM/100 ML BAG IVPB (16:57)
[2024-03-25] MEDS: guaiFENesin 12 HR 600 MG TABCR PO (21:40)
[2024-03-25 21:50] VITALS: BP 101/43; PULSE 94; RESP 20; TEMP 37.1; O2SAT 96
[2024-03-26 05:51] VITALS: BP 110/56; PULSE 77; RESP 18; TEMP 36.3; O2SAT 100
[2024-03-26 06:41] LABS: Hematocrit 24.8 % (42.0-52.0); Hemoglobin 7.9 g/dL (14.0-18.0); Mean Corpuscular HGB Conc 31.9 g/dl (32-36); Mean Corpuscular Hemoglobin 29.9 pg (26-34); Mean Corpuscular Volume 93.9 fl (80-100); Mean Platelet Volume 9.7 fl (7.4-10.4); Platelet Count Result 271 k/mm3 (150-375); Red Blood Count 2.64 M/mm3 (4.6-6.20); Red Cell Distribution Width 17.2 % (11.5-14.5); White Blood Count 12.4 K/mm3 (4.5-10.0)
[2024-03-26 06:51] LABS: INR 3.6; Prothrombin Time 36.1 Seconds (11.1-14.7)
[2024-03-26 06:52] LABS: Anion Gap 0 mmol/L (4-12); Blood Urea Nitrogen 31 mg/dL (9-20); Calcium 8.1 mg/dL (8.4-10.2); Carbon Dioxide 30 mmol/L (22-30); Chloride 105 mmol/L (98-107); Estimated CRCL calculation 49 ml/min; Estimated Glomerular Filt Rate 37; Glucose 103 mg/dL (65-110); Potassium 3.1 mmol/L (3.4-5.0); Sodium 135 mmol/L (137-145)
[2024-03-26 08:10] LABS: Glucose Point of Care 139 mg/dl (65-105)
[2024-03-26 08:10] LABS: Glucose Point of Care 118 mg/dl (65-105)
--- NOTE | 2024-03-26 08:14 | P.PNIM_ITS ---
Progress Note: A&P Assessment and Plan (1) Diabetic foot ulcers: Code(s): E11.621 - Type 2 diabetes mellitus with foot ulcer; L97.509 - Non-pressure chronic ulcer of other part of unspecified foot with unspecified severity Status: Acute Assessment and Plan: - cellulitic changes over the left 5th digit with erythema and warmth extending onto the dorsum of the left lateral foot started on broad-spectrum antibiotics Wound nurse eval completed- appreciate recommendations unstageable pressure ulcer to heels- left posterior heel. small deep tissues injury... no s/s of infection. 1/4 strength dankin solution moisten gauze to help decrease bacterial load, abd, kerlex. waffle boots.. -Pharm ID is following along with recommendations -03/26 wound care re eval.-wound is stable- no worsening- no new recommendations (2) Insulin dependent type 2 diabetes mellitus: Code(s): E11.9 - Type 2 diabetes mellitus without complications; Z79.4 - retirement (curr ent) use of insulin Status: Acute Assessment and Plan: Continue basal insulin. Initiate sliding scale insulin, Accu-Cheks, and hypoglycemic protocol. BS reviewed- stable (3) Chronic kidney disease, stage 4 (severe): Code(s): N18.4 - Chronic kidney disease, stage 4 (severe) Status: Acute Assessment and Plan: 1.8 [id number]- trending down monitor (4) Hyperkalemia: Code(s): E87.5 - Hyperkalemia Status: Acute Assessment and Plan: received a liter of normal saline overnight. Potassium is a bit high but should improve with fluids however will hold losartan, potassium supplement, and spironolactone for now poor nutrition-order supplements 3.1 today- replacement ordered continue daily labs (5) Anemia: Code(s): D64.9 - Anemia, unspecified Status: Acute Assessment and Plan: Check iron studies, B12, folate, and pre-albumin. . Continue to monitor volume status closely with daily weights and I/O. Continue warfarin and monitor INR stool occult blood is ordered-negative hg dropped 6.8 onn 03/21-received a unit of blood GI saw him- no need for intervention pt is on protonic Iron is low- will replace -no s/s of bleeding will restart coumadin and continue to monitor inr 3.6 today-03/26- will hold coumadin- possible nel (6) Nonischemic cardiomyopathy: Code(s): I42.8 - Other cardiomyopathies Status: Acute (7) Hypertension: Code(s): I10 - Essential (primary) hypertension Status: Acute Assessment and Plan: reviewed and stable (8) Atrial fibrillation: Code(s): I48.91 - Unspecified atrial fibrillation Status: Acute Assessment and Plan: Coumadin 2.5 sat sun and 3.5 mg mon-fri (9) Chronic anticoagulation: Code(s): Z79.01 - retirement (current) use of anticoagulants Status: Acute Assessment and Plan: inr- 13.9 on 03/19- vit k x 1 dose was given 03/20- inr is down to 11.3- will order vit k x 1 5 mg po close monitor stool for occult is ordered-follow no s/s of bleeding holding coumadin 03/21- INR 2.4 today- but hg dropped to 6.8-so will not restart at this time stool for occult blood negative pt recently had egd/colonscopy- polyps were found -GI consulted- no intervention Hg dropped today 03/26- will hold coumadin (10) Bacteremia: Code(s): R78.81 - Bacteremia Status: Acute Assessment and Plan: Bc positive on 03/19- staph aureus repeated blood cultures- prelim- neg- the final was positive for staph aureus again discussed with Pharm ID- remains on rocephin for now mrsa swab ordered unclear the source for bacteremia -will order echo and consult card for NEL chest xray, UA echo, cards consulted for possible NEL to r/o endocarditis CT chest ordered CT abd/pelvis ordered to r/o any pockets of infection/eval buttocks wound 03/25- awating 3rd culture results- prelim negative pharm ID following remains afebrile slight increase in wbc- could be due to cough/congestion/covid positive IS, monitor resp status (11) Sacral wound: Code(s): S31.000A - Unspecified open wound of lower back and pelvis without penetration into retroperitoneum, initial encounter Status: Acute Assessment and Plan: present on admission wound care eval completed: stage 3 pressure ulcer. upper jasmyne buttocks. 100% healthy red tissues. no s/s of infection noted. silbver gel, topical antimicrobial coverage. ABD pad. Specialty bed with air mattress CT abd/pelvis ordered to eval wound ct abd/pelvis- unremarkable Time Spent With Patient Time with patient: Greater than 35 minutes Subjective Date/time seen: 03/26/24 08:14 Interval history: Interval history: This is a 74-year-old male with multiple medical problems including atrial fibrillation, nonischemic cardiomyopathy, hypertension, hyperlipidemia, and insulin-dependent type 2 diabetes mellitus who presented to the emergency department via EMS from [facility] for evaluation of foot wounds. The patient provides the following history. He is known to myself and the hospitalist service from an admission a little over a month ago at which time he was admitted with generalized weakness, urinary tract infection, and an overall decline in functional status. He was discharged to [facility] for alf rehab where he reports that he has been in bed a majority of the time and it does not sound as though he participates much in physical therapy. He has developed wounds on his feet which are being monitored by a wound nurse and that nurse was concerned today for infection and he was sent to the ED. Due to neuropathy he really does not have any pain in his feet. He is otherwise feeling okay and denies fever, chills, sweats, cold and flu symptoms, chest pain, shortness of breath, nausea, vomiting, diarrhea, and dysuria. In the ED: Vital signs were stable on arrival. Labs were significant for a WBC count of 17.5, hemoglobin 8.1, sodium 129, potassium 5.2, BUN 47, creatinine 2.10, glucose 296, albumin 2.8. X-rays of both heels showed no acute osseous abnormalities. He was started on antibiotics for suspected diabetic foot infection and he is being admitted in this setting. pt is seen and examined. Pt is alert, oriented, in no distress. 03/21= seen this am. Doing well, no acute complains. no chills, no chest pain. IV antibiotics 03/22- gi eval done. no s/s of bleeding reported. pt needs a lot of encouragement to participate in any activities. 03/23- reports uneventful night. Discussed returning to [facility] but he states that he wants to go to a different place. Care coordination is working on placement if possible to different facility. 03/24- blood cultures-second set is back positive final result- staying in the hospital until source is identified and controlled and repeat culture negative. Reports some cough, no chill.s Pt never had any ortho surgery, no metal in body. no valve replacements. 03/25- pt is seen and examined. he is doing ok, no acute events overnight. tested positive for covid as was exposed to his brother who ended up with covid. some cough but overall asymptomatic. 03/26- NEL decision still pending. Mild cough- encouraged to do IS. OUt of bed with lift- PT/OT\. doing well otherwise Review of Systems Review of Systems: pt is doing fairly well- reports no acute pain, no blood in urine or stool. Exam Narrative: General: Chronically ill-appearing male in the semi-Cat position in bed. Weight: 134.9 kg. BMI: 37.2. HEENT: Normocephalic, atraumatic. PERRL, EOMI. Sclera anicteric. Tacky mucous membranes. Neck: Supple. No JVD or lymphadenopathy. Respiratory: Respirations are nonlabored and lungs are clear to auscultation. Cardiovascular: Irregularly irregular rate and rhythm. Gastrointestinal: Abdomen is soft, protuberant, nontender, and nondistended with positive bowel sounds. Skin: Warm and dry. Generalized pallor. Extremities: No cyanosis or clubbing. Legs are large with pitting edema which seems to be less severe compared to last month. Chronic skin changes of bilateral lower legs consistent with venous stasis dermatitis. there is a pressure ulcer on the right heel and a large ulcerated area on the plantar aspect of the left foot extending laterally. The webspace between the left 4th and 5th toes has a small amount of discharge in the left 5th toe was erythematous and warm, extending to the lateral dorsal aspect of the foot. He has limited sensation and has no pain with palpation of the wounds. Diminished pulses in the feet. Neurological: Alert and oriented. Cranial nerves 2-12 are grossly intact. No pronator drift. He can barely lift his legs off the bed 1 in before letting them fall. This is a chronic finding. Hand systems security analyst are equal bilaterally. No focal strength deficits in the upper extremities. Sensation diminished in the lower extremities. Psychiatric: Pleasant and cooperative with appropriate mood and flat affect. Const: General: comfortable Objective Data Vital Signs Vital Signs: Vital Signs - 24 hr 03/25/24 10:41 03/25/24 13:30 03/25/24 14:00 Temperature 97.7 F Pulse Rate 96 108 H Respiratory Rate 18 Blood Pressure 112/54 L Pulse Oximetry 95 Oxygen Delivery Room Air 03/25/24 20:00 03/25/24 21:50 03/26/24 05:51 Temperature 98.7 F 97.4 F L Pulse Rate 94 77 Respiratory Rate 20 18 Blood Pressure 101/43 L 110/56 L Pulse Oximetry 96 100 Oxygen Delivery Room Air Intake/Output Intake/Output: Intake & Output 03/23/24 03/24/24 03/25/24 03/26/24 23:59 23:59 23:59 23:59 Intake Total 880 700 676 100 Output Total 8015 702 7179 450 Balance -845 250 -524 -350 Meds/Results Medications: Active Medications Generic Name Dose Route Start Last Admin Trade Name Freq PRN Reason Stop Dose Admin Acetaminophen 650 mg 03/19/24 20:56 03/23/24 21:04 Acetaminophen 325 Mg Tablet PO 650 mg Q6H PRN Administration Mild Pain (1-3) or Fever Atorvastatin Calcium 80 mg 03/20/24 09:00 03/25/24 10:44 Atorvastatin 40 Mg Tablet PO 80 mg DAILY CARMELA Administration Benzocaine 1 lozenge 03/25/24 15:23 Benzocaine/Menthol (*Bkc) 18 Ea Lozenge PO PRN PRN cough drops Benzonatate 100 mg 03/26/24 07:48 Benzonatate 100 Mg Capsule PO TID PRN Cough Carvedilol 12.5 mg 03/19/24 21:00 03/25/24 21:40 Carvedilol 12.5 Mg Tablet PO Not Given Q12HR CARMELA Dextrose 12.5 gm 03/19/24 17:24 Dextrose 50% 25 Gm/50 Ml Syringe IV PUSH PRN PRN Hypoglycemia Protocol Furosemide 40 mg 03/20/24 09:00 03/25/24 10:44 Furosemide 40 Mg Tablet PO 40 mg DAILY CARMELA Administration Glucagon 1 mg 03/19/24 17:24 Glucagon For Inj 1 Mg Vial IM PRN PRN Hypoglycemia Protocol Glucose 15 gm 03/19/24 17:24 Glucose Oral Gel 15 Gm Of Glucse In 37.5 Gm Tube PO PRN PRN Hypoglycemia Protocol Guaifenesin 600 mg 03/25/24 21:00 03/25/24 21:40 Guaifenesin 12 Hr 600 Mg Tabcr PO 600 mg Q12HR CARMELA Administration Dextrose 1,000 mls @ 100 mls/hr 03/19/24 17:24 Dextrose 5% 1,000 Ml IVPB PRN PRN Hypoglycemia Protocol Ceftriaxone Sodium 2 gm in 100 mls @ 200 mls/hr 03/22/24 16:00 03/25/24 17:27 Rocephin 2 Gm/Ns 100 Ml IVPB Infused Q24H CARMELA Infusion Insulin Aspart 2 - 4 units 03/19/24 21:00 03/25/24 21:41 Insulin Aspart (*Bkc) 100 Units/Ml SUB-Q Not Given HS [facility] Protocol Insulin Aspart 4 - 8 units 03/20/24 08:00 03/25/24 16:57 Insulin Aspart (*Bkc) 100 Units/Ml SUB-Q Not Given TIDWM [facility] Protocol Insulin Human Regular 40 units 03/20/24 08:00 03/25/24 16:36 Insulin Human Regular (*Bkc) 100 Units/Ml SUB-Q 40 units DAILY@0800 [facility] Administration Pantoprazole Sodium 40 mg 03/22/24 09:00 03/25/24 21:40 Pantoprazole Sodium Iv 40 Mg Vial IV PUSH 40 mg Q12HR [facility] Administration Perflutren Lipid Microsphere 0 ml 03/23/24 14:25 Perflutren Lipid Microspheres 1.5 Ml Vial Diluted To 10 Ml Total Volume IV PUSH 03/26/24 14:26 ONCE PRN adequate visualization Protocol Sodium Hypochlorite 1 applic 03/20/24 09:00 03/25/24 21:43 Sod Hypochlorite 1/4 Strength 473 Ml TOPICAL 1 applic Q12HR [facility] Administration Warfarin Sodium 2.5 mg 03/23/24 17:00 03/25/24 19:03 Warfarin (*Pbkc) 2.5 Mg Tablet PO Not Given DAILY@1700 [facility] Warfarin Sodium 1 mg 03/25/24 17:00 03/25/24 16:57 Warfarin (*Pbkc) 1 Mg Tablet PO Not Given MoTuWeThFr@1700 [facility] Radiology Results: ITS Impressions Heel X-Ray 03/19/24 11:30 IMPRESSION: No acute osseous abnormality. Abdomen Ultrasound 03/23/24 09:20 IMPRESSION: 1. Cholelithiasis. No evidence of acute cholecystitis. Chest X-Ray 03/24/24 08:53 IMPRESSION: 1. No acute cardiopulmonary disease. Foot X-Ray 03/24/24 10:22 IMPRESSION: 1. No evidence of osteomyelitis. Chest/Abdomen/Pelvis CTA 03/25/24 05:26 IMPRESSION: 1. No pulmonary embolus. 2. Small pleural effusions. 3. Small sliding hiatal hernia. 4. Pulmonary nodules again seen measuring up to 9 mm, which may be infection or malignancy. Noncontrast low-dose chest CT is recommended in 3 months. 5. Mildly enlarged right infrahilar lymph node. Labs Labs: Laboratory Results - last 24 hr 03/21/24 03/25/24 03/25/24 12:03 11:22 16:24 WBC RBC Hgb Hct MCV MCH MCHC RDW Plt Count MPV PT INR Sodium Potassium Chloride Carbon Dioxide Anion Gap BUN Creatinine Estim Creat Clear Calc Estimated GFR Glucose POC Capillary Glucose 151 H 201 H Calcium Crossmatch See Detail 03/25/24 03/26/24 03/26/24 21:29 06:17 07:54 WBC 12.4 H RBC 2.64 L Hgb 7.9 L Hct 24.8 L MCV 93.9 MCH 29.9 MCHC 31.9 L RDW 17.2 H Plt Count 271 MPV 9.7 PT 36.1 H INR 3.6 Sodium 135 L Potassium 3.1 L Chloride 105 Carbon Dioxide 30 Anion Gap 0 L BUN 31 H Creatinine 1.80 H Estim Creat Clear Calc 49 Estimated GFR 37 L Glucose 103 POC Capillary Glucose 139 H 118 H Calcium 8.1 L Crossmatch Quality VTE Prophylaxis VTE prophylaxis: pharmacologic ordered (on warfarin)
[2024-03-26] MEDS: PANTOPRAZOLE SODIUM IV 40 MG VIAL IV PUSH ×2 (09:22→21:12)
[2024-03-26] MEDS: FUROSEMIDE 40 MG TABLET PO (09:23)
[2024-03-26] MEDS: guaiFENesin 12 HR 600 MG TABCR PO ×2 (09:23→21:11)
[2024-03-26] MEDS: ATORVASTATIN 40 MG TABLET 80 MG PO (09:50)
[2024-03-26] MEDS: SOD HYPOCHLORITE 1/4 STRENGTH 473 ML 1 APPLIC TOPICAL ×2 (09:50→21:20)
[2024-03-26 10:23] VITALS: PULSE 68
[2024-03-26] MEDS: carvediloL 12.5 MG TABLET PO ×2 (10:23→21:11)
[2024-03-26 11:28] LABS: Glucose Point of Care 138 mg/dl (65-105)
[2024-03-26 13:59] VITALS: BP 111/42; PULSE 96; RESP 18; TEMP 36.4; O2SAT 95
[2024-03-26] MEDS: cefTRIAXone 2 GM/NS 100 ML 2 GM/100 ML BAG IVPB (16:59)
[2024-03-26] MEDS: WARFARIN (*PBKC) 1 MG TABLET PO (17:01)
[2024-03-26] MEDS: WARFARIN (*PBKC) 2.5 MG TABLET PO (17:02)
[2024-03-26] MEDS: POTASSIUM CHLORIDE 20 MEQ PACKET (FOR LIQUID) 40 MEQ PO (17:32)
[2024-03-26 20:24] VITALS: BP 119/54; PULSE 83; RESP 14; TEMP 36.1; O2SAT 98
[2024-03-26 20:54] LABS: Glucose Point of Care 204 mg/dl (65-105)
[2024-03-26 21:11] VITALS: PULSE 83
[2024-03-26] MEDS: INSULIN ASPART (*BKC) 100 UNITS/ML SUB-Q (21:14)
[2024-03-27 05:36] VITALS: BP 115/47; PULSE 77; RESP 14; TEMP 36.1; O2SAT 98
[2024-03-27 07:11] LABS: INR 3.8; Prothrombin Time 37.6 Seconds (11.1-14.7)
[2024-03-27 07:24] LABS: Basophils Percent Auto 0.3 % (0.2-1.2); Eosinophils Absolute Auto 0.1 K/mm3 (0-0.3); Eosinophils Percent Auto 0.8 % (0-4.4); Hematocrit 23.6 % (42.0-52.0); Hemoglobin 7.5 g/dL (14.0-18.0); Immature Granulocyte Absolute 0.16 K/mm3 (0.00-0.031); Immature Granulocyte Percent A 1.5 % (0-0.5); Lymphocytes Absolute Auto 1.51 K/mm3 (0.9-3.2); Lymphocytes Percent Auto 14.4 % (18.3-44.2); Mean Corpuscular HGB Conc 31.8 g/dl (32-36); Mean Corpuscular Hemoglobin 30.1 pg (26-34); Mean Corpuscular Volume 94.8 fl (80-100); Monocytes Absolute Auto 0.6 K/mm3 (0.1-0.6); Monocytes Percent Auto 5.3 % (2.6-8.5); Neutrophils Absolute Auto 8.1 K/mm3 (1.3-6.7); Neutrophils Percent Auto 77.7 % (45.5-73.1); Platelet Count Result 272 k/mm3 (150-375); Red Blood Count 2.49 M/mm3 (4.6-6.20); Red Cell Distribution Width 17.1 % (11.5-14.5); White Blood Count 10.5 K/mm3 (4.5-10.0)
[2024-03-27 07:37] LABS: Glucose Point of Care 162 mg/dl (65-105)
[2024-03-27 07:57] LABS: Alanine Aminotransferase 53 U/L (6-50); Albumin Level 2.3 g/dL (3.5-5.1); Alkaline Phosphatase 161 U/L (38-126); Anion Gap 0 mmol/L (4-12); Aspartate Amino Transferase 79 U/L (17-59); Bilirubin,Total 0.5 mg/dL (0.2-1.3); Blood Urea Nitrogen 31 mg/dL (9-20); Calcium 8.1 mg/dL (8.4-10.2); Carbon Dioxide 29 mmol/L (22-30); Chloride 105 mmol/L (98-107); Estimated CRCL calculation 59 ml/min; Estimated Glomerular Filt Rate 46; Glucose 150 mg/dL (65-110); Potassium 3.2 mmol/L (3.4-5.0); Sodium 134 mmol/L (137-145)
[2024-03-27 08:00] VITALS: PULSE 85; O2SAT 97
[2024-03-27] MEDS: SOD HYPOCHLORITE 1/4 STRENGTH 473 ML 1 APPLIC TOPICAL ×2 (08:35→22:13)
[2024-03-27] MEDS: INSULIN HUMAN REGULAR (*BKC) 100 UNITS/ML 40 UNITS SUB-Q (08:37)
[2024-03-27] MEDS: POTASSIUM CHLORIDE 20 MEQ PACKET (FOR LIQUID) 40 MEQ PO (08:40)
[2024-03-27 08:42] VITALS: PULSE 85
[2024-03-27] MEDS: guaiFENesin 12 HR 600 MG TABCR PO ×2 (08:42→20:17)
[2024-03-27] MEDS: carvediloL 12.5 MG TABLET PO ×2 (08:42→20:17)
[2024-03-27] MEDS: FUROSEMIDE 40 MG TABLET PO (08:44)
[2024-03-27] MEDS: PANTOPRAZOLE SODIUM IV 40 MG VIAL IV PUSH ×2 (08:44→20:17)
[2024-03-27] MEDS: ATORVASTATIN 40 MG TABLET 80 MG PO (08:44)
--- NOTE | 2024-03-27 08:51 | PM.IMPN ---
Progress Note: A&P Assessment and Plan (1) Bacteremia: Code(s): R78.81 - Bacteremia Status: Acute Assessment and Plan: Etiology of bacteremia likely bilateral foot ulcers - Chest/abdomen/pelvis CTA: No PE, small pleural effusions, small sliding hiatal hernia, pulmonary nodules again seen measuring up to 9 mm (recommend CT in 3 months), mildly enlarged right infrahilar LN - Chest XR: No acute cardiopulmonary process - UA unremarkable - Blood culture on 03/19- staph aureus - Repeated blood cultures on 03/21- staph aureus - Repeated blood cultures on 03/24: NGTD - Previous provider discussed with Pharm ID- remains on Rocephin, started on 03/22 - MRSA negative - Echo ordered to rule out endocarditis: Normal systolic function and no significant valvular disease noted - Cardiology consulted Was originally planning for possible TWYLA however patient has covid and per cardiology they do not plan on moving forward with this procedure. (2) Diabetic foot ulcers: Code(s): E11.621 - Type 2 diabetes mellitus with foot ulcer; L97.509 - Non-pressure chronic ulcer of other part of unspecified foot with unspecified severity Status: Acute Assessment and Plan: - cellulitic changes over the left 5th digit with erythema and warmth extending onto the dorsum of the left lateral foot started on broad-spectrum antibiotics - LT and Rt heel XR: No acute osseous abnormality - LT and Rt foot XR: No evidence of osteomyelitis - Previous provider discussed with Pharm ID- remains on Rocephin, started on 03/22 - Monitor vital signs, I&Os, neuro status and patient is a fall risk - Monitor serum electrolytes, CBC, cultures, WBC and temp curve - Consult with wound care unstageable pressure ulcer to heels- left posterior heel. small deep tissues injury... no s/s of infection. 1/4 strength dankin solution moisten gauze to help decrease bacterial load, abd, kerlex. waffle boots.. 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 Status: Acute Assessment and Plan: INR 13.9 on admission (03/19)- Vit k x 1 given 03/20- INR 11.3 - given 5 mg po vit k x 1 given 03/21- INR 2.4 today- but hg dropped to 6.8 - so will not restart at this time stool for occult blood negative pt recently had egd/colonscopy- polyps were found -GI consulted- no intervention 03/27 - INR 3.8 - continue holding warfarin (4) Anemia: Code(s): D64.9 - Anemia, unspecified Status: Acute Assessment and Plan: Hemoglobin 6.8 on 03/21 requiring a unit blood transfusion H/H 7.5/23.6 on am labs INR 3.8 on am labs, continue holding warfarin No signs of active bleeding, fecal occult negative Iron panel: 28, TIBC 190, % sat 15 Started on iron supplementation B12 and folate WNL (5) Atrial fibrillation: Code(s): I48.91 - Unspecified atrial fibrillation Status: Acute Assessment and Plan: Chronic - Continue carvedilol 12.5 mg BID - Resumed warfarin 2.5 sat sun and 3.5 mg mon-fri on 03/25, INR 3.8 on 03/27. Warfarin again placed on hold. - Monitor (6) Hyperkalemia: Code(s): E87.5 - Hyperkalemia Status: Acute Assessment and Plan: received a liter of normal saline overnight. Potassium was a bit high but should improve with fluids however hold losartan, potassium supplement, and spironolactone poor nutrition-order supplements K 3.2 on am labs, supplementation given Continue holding losartan 50 mg daily and spironolactone 50 mg daily as patients blood pressure has been well controlled on the other antihypertensives alone Monitor (7) Hypertension: Code(s): I10 - Essential (primary) hypertension Status: Acute Assessment and Plan: chronic - continue carvedilol 12.5 mg BID and lasix 40 mg daily - currently holding losartan 50 mg daily and spironolactone 50 mg daily as patients blood pressure has been well controlled on the above alone - monitor (8) Insulin dependent type 2 diabetes mellitus: Code(s): E11.9 - Type 2 diabetes mellitus without complications; Z79.4 - senior living (current) use of insulin Status: Acute Assessment and Plan: Continue basal insulin. Initiate sliding scale insulin, Accu-Cheks, and hypoglycemic protocol. BS reviewed- stable (9) Nonischemic cardiomyopathy: Code(s): I42.8 - Other cardiomyopathies Status: Acute Assessment and Plan: Chronic, continue home medications. (10) Chronic kidney disease, stage 4 (severe): Code(s): N18.4 - Chronic kidney disease, stage 4 (severe) Status: Acute Assessment and Plan: BUN/Cr 31/1.5 on am labs, appears to be in baseline - Avoid nephrotoxic medications - Renally dose medications - Monitor I/O (11) Sacral wound: Code(s): S31.000A - Unspecified open wound of lower back and pelvis without penetration into retroperitoneum, initial encounter Status: Acute Assessment and Plan: present on admission wound care eval completed: stage 3 pressure ulcer. upper jasmyne buttocks. 100% healthy red tissues. no s/s of infection noted. silbver gel, topical antimicrobial coverage. ABD pad. Specialty bed with air mattress ct abd/pelvis- unremarkable Time Spent With Patient Time with patient: 25 - 35 minutes Subjective Date/time seen: 03/27/24 08:51 Interval history: 74-year-old male with multiple medical problems including atrial fibrillation, nonischemic cardiomyopathy, hypertension, hyperlipidemia, and insulin-dependent type 2 diabetes mellitus who presented to the emergency department via EMS from [facility] for evaluation of foot wounds. Patient is pleasant lying in bed. He continues to have supratherapeutic INR of 3.8 today. Warfarin again placed on hold. Discussed with cardiology about possible TWYLA given patients bacteremia however per Dr. Nix since patient has covid they do not plan on moving forward with the procedure at this time. US echo did not show endocarditics. Patient has no complaints denying chest pain, shortness of breath, palpitations, nausea/vomiting and abdominal pain. Review of Systems Review of Systems: All systems reviewed & are unremarkable except as noted in HPI and below Exam Narrative: AF HR 77 RR 14 SPO2 98 BP 115/47 General: male in no acute respiratory distress who is nontoxic appearing, lying semi recumbent in bed. HEENT: Normocephalic. Atraumatic. Extraocular movement intact. Sclera clear and anicteric.No facial asymmetry. Chest: Lungs are clear to auscultation bilaterally. No wheezes or crackles. CV: Heart was regular rate and rhythm. S1/S2. No murmurs, gallops, or rubs. Abd: Abdomen was soft. Nontender. Nondistended. Positive bowel sounds. No organomegaly or masses. Ext: No clubbing, cyanosis, or edema. 1+ DP pulses bilaterally. Bilateral foot dressings in place, clean/dry/intact. Neuro: Patient is alert.. Cranial nerves 2-12 are intact. Speech is clear. Objective Data Vital Signs Vital Signs: Vital Signs - 24 hr 03/26/24 10:23 03/26/24 13:59 03/26/24 20:24 Temperature 97.6 F 97.0 F L Pulse Rate 68 96 83 Respiratory Rate 18 14 Blood Pressure 111/42 L 119/54 L Pulse Oximetry 95 98 03/26/24 21:11 03/27/24 05:36 03/27/24 08:42 Temperature 97.0 F L Pulse Rate 83 77 85 Respiratory Rate 14 Blood Pressure 115/47 L Pulse Oximetry 98 Intake/Output Intake/Output: Intake & Output 03/24/24 03/25/24 03/26/24 03/27/24 23:59 23:59 23:59 23:59 Intake Total 836 008 5398 375 Output Total 450 1200 1150 800 Balance 250 -524 130 -425 Meds/Results Medications: Active Medications Generic Name Dose Route Start Last Admin Trade Name Freq PRN Reason Stop Dose Admin Acetaminophen 650 mg 03/19/24 20:56 03/23/24 21:04 Acetaminophen 325 Mg Tablet PO 650 mg Q6H PRN Administration Mild Pain (1-3) or Fever Atorvastatin Calcium 80 mg 03/20/24 09:00 03/27/24 08:44 Atorvastatin 40 Mg Tablet PO 80 mg DAILY CARMELA Administration Benzocaine 1 lozenge 03/25/24 15:23 Benzocaine/Menthol (*Bkc) 18 Ea Lozenge PO PRN PRN cough drops Benzonatate 100 mg 03/26/24 07:48 Benzonatate 100 Mg Capsule PO TID PRN Cough Carvedilol 12.5 mg 03/19/24 21:00 03/27/24 08:42 Carvedilol 12.5 Mg Tablet PO 12.5 mg Q12HR CARMELA Administration Dextrose 12.5 gm 03/19/24 17:24 Dextrose 50% 25 Gm/50 Ml Syringe IV PUSH PRN PRN Hypoglycemia Protocol Furosemide 40 mg 03/20/24 09:00 03/27/24 08:44 Furosemide 40 Mg Tablet PO 40 mg DAILY CARMELA Administration Glucagon 1 mg 03/19/24 17:24 Glucagon For Inj 1 Mg Vial IM PRN PRN Hypoglycemia Protocol Glucose 15 gm 03/19/24 17:24 Glucose Oral Gel 15 Gm Of Glucse In 37.5 Gm Tube PO PRN PRN Hypoglycemia Protocol Guaifenesin 600 mg 03/25/24 21:00 03/27/24 08:42 Guaifenesin 12 Hr 600 Mg Tabcr PO 600 mg Q12HR CARMELA Administration Dextrose 1,000 mls @ 100 mls/hr 03/19/24 17:24 Dextrose 5% 1,000 Ml IVPB PRN PRN Hypoglycemia Protocol Ceftriaxone Sodium 2 gm in 100 mls @ 200 mls/hr 03/22/24 16:00 03/26/24 17:29 Rocephin 2 Gm/Ns 100 Ml IVPB Infused Q24H CARMELA Infusion Insulin Aspart 2 - 4 units 03/19/24 21:00 03/26/24 21:14 Insulin Aspart (*Bkc) 100 Units/Ml SUB-Q 2 units HS CARMELA Administration Protocol Insulin Aspart 4 - 8 units 03/20/24 08:00 03/27/24 07:39 Insulin Aspart (*Bkc) 100 Units/Ml SUB-Q Not Given TIDWM CARMELA Protocol Insulin Human Regular 40 units 03/20/24 08:00 03/27/24 08:37 Insulin Human Regular (*Bkc) 100 Units/Ml SUB-Q 40 units DAILY@0800 CARMELA Administration Miscellaneous Information 1 each 03/26/24 00:01 Warfarin 2.5mg On Hold. Hold The 1mg Also? XX 04/25/24 00:00 CLARIFY CARMELA Pantoprazole Sodium 40 mg 03/22/24 09:00 03/27/24 08:44 Pantoprazole Sodium Iv 40 Mg Vial IV PUSH 40 mg Q12HR CARMELA Administration Potassium Chloride 40 meq 03/26/24 09:00 03/27/24 08:40 Potassium Chloride 20 Meq Packet (For Liquid) PO 40 meq DAILY CARMELA Administration Sodium Hypochlorite 1 applic 03/20/24 09:00 03/27/24 08:35 Sod Hypochlorite 1/4 Strength 473 Ml TOPICAL 1 applic Q12HR CARMELA Administration Warfarin Sodium 2.5 mg 03/23/24 17:00 03/26/24 17:02 Warfarin (*Pbkc) 2.5 Mg Tablet PO 2.5 mg DAILY@1700 CARMELA Administration Warfarin Sodium 1 mg 03/25/24 17:00 03/26/24 17:01 Warfarin (*Pbkc) 1 Mg Tablet PO 1 mg MoTuWConi@1700 CARMELA Administration Radiology Results: ITS Impressions Heel X-Ray 03/19/24 11:30 IMPRESSION: No acute osseous abnormality. Abdomen Ultrasound 03/23/24 09:20 IMPRESSION: 1. Cholelithiasis. No evidence of acute cholecystitis. Chest X-Ray 03/24/24 08:53 IMPRESSION: 1. No acute cardiopulmonary disease. Foot X-Ray 03/24/24 10:22 IMPRESSION: 1. No evidence of osteomyelitis. Chest/Abdomen/Pelvis CTA 03/25/24 05:26 IMPRESSION: 1. No pulmonary embolus. 2. Small pleural effusions. 3. Small sliding hiatal hernia. 4. Pulmonary nodules again seen measuring up to 9 mm, which may be infection or malignancy. Noncontrast low-dose chest CT is recommended in 3 months. 5. Mildly enlarged right infrahilar lymph node. Labs Labs: Laboratory Results - last 24 hr 03/26/24 03/26/24 03/27/24 11:16 20:51 06:31 WBC 10.5 H RBC 2.49 L Hgb 7.5 L Hct 23.6 L MCV 94.8 MCH 30.1 MCHC 31.8 L RDW 17.1 H Plt Count 272 MPV 10.0 Immature Gran % (Auto) 1.5 H Neut % (Auto) 77.7 H Lymph % (Auto) 14.4 L [place] % (Auto) 5.3 Eos % (Auto) 0.8 Baso % (Auto) 0.3 Lymph # (Auto) 1.51 [place] # (Auto) 0.6 Eos # (Auto) 0.1 Baso # (Auto) 0.0 Abs Immat Gran (auto) 0.16 H Absolute Neuts (auto) 8.1 H Absolute Nucleated RBC 0.000 Nucleated RBC % 0.0 PT 37.6 H INR 3.8 Sodium 134 L Potassium 3.2 L Chloride 105 Carbon Dioxide 29 Anion Gap 0 L BUN 31 H Creatinine 1.50 H Estim Creat Clear Calc 59 Estimated GFR 46 L Glucose 150 H POC Capillary Glucose 138 H 204 H Calcium 8.1 L Total Bilirubin 0.5 AST 79 H ALT 53 H Alkaline Phosphatase 161 H Total Protein 6.0 L Albumin 2.3 L 03/27/24 07:32 WBC RBC Hgb Hct MCV MCH MCHC RDW Plt Count MPV Immature Gran % (Auto) Neut % (Auto) Lymph % (Auto) [place] % (Auto) Eos % (Auto) Baso % (Auto) Lymph # (Auto) [place] # (Auto) Eos # (Auto) Baso # (Auto) Abs Immat Gran (auto) Absolute Neuts (auto) Absolute Nucleated RBC Nucleated RBC % PT INR Sodium Potassium Chloride Carbon Dioxide Anion Gap BUN Creatinine Estim Creat Clear Calc Estimated GFR Glucose POC Capillary Glucose 162 H Calcium Total Bilirubin AST ALT Alkaline Phosphatase Total Protein Albumin Quality VTE Prophylaxis VTE prophylaxis: mechanical ordered
--- NOTE | 2024-03-27 11:13 | P.PNCA_ITS ---
Progress Note: A&P Assessment and Plan (1) Afib: Qualifiers: Atrial fibrillation type: paroxysmal Qualified Code(s): I48.0 - Paroxysmal atrial fibrillation Code(s): I48.91 - Unspecified atrial fibrillation Status: Acute (2) Nonischemic cardiomyopathy: Code(s): I42.8 - Other cardiomyopathies Status: Acute (3) Bacteremia due to Staphylococcus: Code(s): R78.81 - Bacteremia; B95.8 - Unspecified staphylococcus as the cause of diseases classified elsewhere Status: Acute Plan Assessment: 1. Diabetic left foot wounds on IV antibiotics; sacral ulcer 2. Bacteremia with Staph aureus (sensitivity pending) on IV antibiotics; source most likely foot wounds 3. Nonischemic cardiomyopathy 4. Diabetes mellitus type 2 5. Hypertension 6. Hyperlipidemia 7. Acute on chronic anemia with hemoglobin 7.9 8. CKD stage 4 with creatinine 1.8 9. Venous insufficiency 10. Atrial fibrillation- rate controlled 11. Asthma In regards to bacteremia, echocardiogram done during this hospitalization shows normal ejection and mild left atrial enlargement. Continue antibiotic for her primary team. In regards to cardiomyopathy. Echocardiogram done during this hospitalization shows normal ejection fraction. Continue Coreg. Losartan and spironolactone on hold given acute kidney injury. Blood pressures been soft as well. Continue furosemide In regards to atrial fibrillation, rate controlled. Continue carvedilol. Patient is on warfarin for anticoagulation but currently on hold due to supratherapeutic INR. In regards to Hyperlipidemia, continue statin. In regards to hypokalemia, replenish. Regards to COVID, continue supportive treat Subjective Date/time seen: Date of service 03/27/24 11:13 Interval history: Date of service 03/27/2024-stable vital signs Review of Systems Review of Systems: A complete review of systems was performed and negative other than those mentioned in the HPI Exam Narrative: General: Alert oriented x3, no acute distress Neck: Supple, no JVD Chest: Bilaterally clear to auscultation, no rales or rhonchi Cardiac: S1, S2 plus, irregularly irregular, tachycardic, no murmurs or rubs Extremities: No peripheral edema, diabetic left foot wounds, no skin rash Neurologic: Alert oriented x3, no focal neurological deficits Objective Data Vital Signs Vital Signs: Vital Signs - 24 hr 03/26/24 13:59 03/26/24 20:24 03/26/24 21:11 Temperature 36.4 C 36.1 C L Pulse Rate 96 83 83 Respiratory Rate 18 14 Blood Pressure 111/42 L 119/54 L Pulse Oximetry 95 98 03/27/24 05:36 03/27/24 08:42 Temperature 36.1 C L Pulse Rate 77 85 Respiratory Rate 14 Blood Pressure 115/47 L Pulse Oximetry 98 Intake/Output Intake/Output: Intake & Output 03/24/24 03/25/24 03/26/24 03/27/24 23:59 23:59 23:59 23:59 Intake Total 389 781 7012 615 Output Total 450 1200 1150 800 Balance 250 -524 130 -185 Meds/Results Medications: Active Medications Generic Name Dose Route Start Last Admin Trade Name Freq PRN Reason Stop Dose Admin Acetaminophen 650 mg 03/19/24 20:56 03/23/24 21:04 Acetaminophen 325 Mg Tablet PO 650 mg Q6H PRN Administration Mild Pain (1-3) or Fever Atorvastatin Calcium 80 mg 03/20/24 09:00 03/27/24 08:44 Atorvastatin 40 Mg Tablet PO 80 mg DAILY CARMELA Administration Benzocaine 1 lozenge 03/25/24 15:23 Benzocaine/Menthol (*Bkc) 18 Ea Lozenge PO PRN PRN cough drops Benzonatate 100 mg 03/26/24 07:48 Benzonatate 100 Mg Capsule PO TID PRN Cough Carvedilol 12.5 mg 03/19/24 21:00 03/27/24 08:42 Carvedilol 12.5 Mg Tablet PO 12.5 mg Q12HR CARMELA Administration Dextrose 12.5 gm 03/19/24 17:24 Dextrose 50% 25 Gm/50 Ml Syringe IV PUSH PRN PRN Hypoglycemia Protocol Ferrous Sulfate 325 mg 03/27/24 17:00 Ferrous Sulfate [address] PO BID CARMELA Furosemide 40 mg 03/20/24 09:00 03/27/24 08:44 Furosemide 40 Mg Tablet PO 40 mg DAILY CARMELA Administration Glucagon 1 mg 03/19/24 17:24 Glucagon For Inj 1 Mg Vial IM PRN PRN Hypoglycemia Protocol Glucose 15 gm 03/19/24 17:24 Glucose Oral Gel 15 Gm Of Glucse In 37.5 Gm Tube PO PRN PRN Hypoglycemia Protocol Guaifenesin 600 mg 03/25/24 21:00 03/27/24 08:42 Guaifenesin 12 Hr 600 Mg Tabcr PO 600 mg Q12HR CARMELA Administration Dextrose 1,000 mls @ 100 mls/hr 03/19/24 17:24 Dextrose 5% 1,000 Ml IVPB PRN PRN Hypoglycemia Protocol Ceftriaxone Sodium 2 gm in 100 mls @ 200 mls/hr 03/22/24 16:00 03/26/24 17:29 Rocephin 2 Gm/Ns 100 Ml IVPB Infused Q24H CARMELA Infusion Insulin Aspart 2 - 4 units 03/19/24 21:00 03/26/24 21:14 Insulin Aspart (*Bkc) 100 Units/Ml SUB-Q 2 units HS CARMELA Administration Protocol Insulin Aspart 4 - 8 units 03/20/24 08:00 03/27/24 07:39 Insulin Aspart (*Bkc) 100 Units/Ml SUB-Q Not Given TIDWM [facility] Protocol Insulin Human Regular 40 units 03/20/24 08:00 03/27/24 08:37 Insulin Human Regular (*Bkc) 100 Units/Ml SUB-Q 40 units DAILY@0800 CARMELA Administration Pantoprazole Sodium 40 mg 03/22/24 09:00 03/27/24 08:44 Pantoprazole Sodium Iv 40 Mg Vial IV PUSH 40 mg Q12HR CARMELA Administration Potassium Chloride 40 meq 03/26/24 09:00 03/27/24 08:40 Potassium Chloride 20 Meq Packet (For Liquid) PO 40 meq DAILY CARMELA Administration Sodium Hypochlorite 1 applic 03/20/24 09:00 03/27/24 08:35 Sod Hypochlorite 1/4 Strength 473 Ml TOPICAL 1 applic Q12HR CARMELA Administration Warfarin Sodium 2.5 mg 03/23/24 17:00 03/26/24 17:02 Warfarin (*Pbkc) 2.5 Mg Tablet PO 2.5 mg DAILY@1700 CARMELA Administration Warfarin Sodium 1 mg 03/25/24 17:00 03/26/24 17:01 Warfarin (*Pbkc) 1 Mg Tablet PO 1 mg MoTuWeThFr@1700 [facility] Administration Radiology Results: ITS Impressions Heel X-Ray 03/19/24 11:30 IMPRESSION: No acute osseous abnormality. Abdomen Ultrasound 03/23/24 09:20 IMPRESSION: 1. Cholelithiasis. No evidence of acute cholecystitis. Chest X-Ray 12/22/24 08:53 IMPRESSION: 1. No acute cardiopulmonary disease. Foot X-Ray 03/24/24 10:22 IMPRESSION: 1. No evidence of osteomyelitis. Chest/Abdomen/Pelvis CTA 03/25/24 05:26 IMPRESSION: 1. No pulmonary embolus. 2. Small pleural effusions. 3. Small sliding hiatal hernia. 4. Pulmonary nodules again seen measuring up to 9 mm, which may be infection or malignancy. Noncontrast low-dose chest CT is recommended in 3 months. 5. Mildly enlarged right infrahilar lymph node. Labs Labs: Laboratory Results - last 24 hr 03/26/24 03/26/24 03/27/24 11:16 20:51 06:31 WBC 10.5 H RBC 2.49 L Hgb 7.5 L Hct 23.6 L MCV 94.8 MCH 30.1 MCHC 31.8 L RDW 17.1 H Plt Count 272 MPV 10.0 Immature Gran % (Auto) 1.5 H Neut % (Auto) 77.7 H Lymph % (Auto) 14.4 L [place] % (Auto) 5.3 Eos % (Auto) 0.8 Baso % (Auto) 0.3 Lymph # (Auto) 1.51 [place] # (Auto) 0.6 Eos # (Auto) 0.1 Baso # (Auto) 0.0 Abs Immat Gran (auto) 0.16 H Absolute Neuts (auto) 8.1 H Absolute Nucleated RBC 0.000 Nucleated RBC % 0.0 PT 37.6 H INR 3.8 Sodium 134 L Potassium 3.2 L Chloride 105 Carbon Dioxide 29 Anion Gap 0 L BUN 31 H Creatinine 1.50 H Estim Creat Clear Calc 59 Estimated GFR 46 L Glucose 150 H POC Capillary Glucose 138 H 204 H Calcium 8.1 L Total Bilirubin 0.5 AST 79 H ALT 53 H Alkaline Phosphatase 161 H Total Protein 6.0 L Albumin 2.3 L 03/27/24 07:32 WBC RBC Hgb Hct MCV MCH MCHC RDW Plt Count MPV Immature Gran % (Auto) Neut % (Auto) Lymph % (Auto) [place] % (Auto) Eos % (Auto) Baso % (Auto) Lymph # (Auto) [place] # (Auto) Eos # (Auto) Baso # (Auto) Abs Immat Gran (auto) Absolute Neuts (auto) Absolute Nucleated RBC Nucleated RBC % PT INR Sodium Potassium Chloride Carbon Dioxide Anion Gap BUN Creatinine Estim Creat Clear Calc Estimated GFR Glucose POC Capillary Glucose 162 H Calcium Total Bilirubin AST ALT Alkaline Phosphatase Total Protein Albumin
[2024-03-27 12:32] LABS: Glucose Point of Care 129 mg/dl (65-105)
[2024-03-27] MEDS: BENZOCAINE/MENTHOL (*BKC) 18 EA LOZENGE 1 LOZENGE PO (12:59)
[2024-03-27 14:00] VITALS: BP 116/68; PULSE 87; RESP 18; TEMP 36.4; O2SAT 99
[2024-03-27] MEDS: cefTRIAXone 2 GM/NS 100 ML 2 GM/100 ML BAG IVPB (15:32)
[2024-03-27 16:21] LABS: Glucose Point of Care 97 mg/dl (65-105)
[2024-03-27] MEDS: FERROUS SULFATE 325 MG TABLET DR PO (17:45)
[2024-03-27 20:17] VITALS: PULSE 87
[2024-03-27 20:48] LABS: Glucose Point of Care 106 mg/dl (65-105)
[2024-03-27 21:33] VITALS: BP 120/60; PULSE 83; RESP 18; TEMP 36.8; O2SAT 98
[2024-03-28 05:52] VITALS: BP 137/59; PULSE 90; RESP 20; TEMP 36.2; O2SAT 98
[2024-03-28] MEDS: SOD HYPOCHLORITE 1/4 STRENGTH 473 ML 1 APPLIC TOPICAL ×2 (06:44→20:59)
[2024-03-28 08:33] LABS: Glucose Point of Care 136 mg/dl (65-105)
--- NOTE | 2024-03-28 08:33 | P.PNIM_ITS ---
Progress Note: A&P Assessment and Plan (1) Bacteremia: Code(s): R78.81 - Bacteremia Status: Acute Assessment and Plan: Etiology of bacteremia likely bilateral foot ulcers - Chest/abdomen/pelvis CTA: No PE, small pleural effusions, small sliding hiatal hernia, pulmonary nodules again seen measuring up to 9 mm (recommend CT in 3 months), mildly enlarged right infrahilar LN - Chest XR: No acute cardiopulmonary process - UA unremarkable - Blood culture on 03/19- staph aureus - Repeated blood cultures on 03/21- staph aureus - Repeated blood cultures on 03/24: NGTD - Previous provider discussed with Pharm ID- remains on Rocephin, started on 03/22 - MRSA negative - Echo ordered to rule out endocarditis: Normal systolic function and no significant valvular disease noted - Cardiology consulted Was originally planning for possible TWYLA however patient has covid and per cardiology they do not plan on moving forward with this procedure. (2) Diabetic foot ulcers: Code(s): E11.621 - Type 2 diabetes mellitus with foot ulcer; L97.509 - Non-pressure chronic ulcer of other part of unspecified foot with unspecified severity Status: Acute Assessment and Plan: - cellulitic changes over the left 5th digit with erythema and warmth extending onto the dorsum of the left lateral foot started on broad-spectrum antibiotics - LT and Rt heel XR: No acute osseous abnormality - LT and Rt foot XR: No evidence of osteomyelitis - Pictures uploaded to patients chart - Previous provider discussed with Pharm ID- remains on Rocephin, started on 03/22 - Monitor vital signs, I&Os, neuro status and patient is a fall risk - Monitor serum electrolytes, CBC, cultures, WBC and temp curve - Consult with wound care unstageable pressure ulcer to heels- left posterior heel. small deep tissues injury... no s/s of infection. 1/4 strength dankin solution moisten gauze to help decrease bacterial load, abd, kerlex. waffle boots.. - Surgery consulted, appreciate recommendations (3) Sacral wound: Code(s): S31.000A - Unspecified open wound of lower back and pelvis without penetration into retroperitoneum, initial encounter Status: Acute Assessment and Plan: Present on admission - wound care eval completed: stage 3 pressure ulcer. upper jasmyne buttocks. 100% healthy red tissues. no s/s of infection noted. silbver gel, topical antimicrobial coverage. ABD pad. Specialty bed with air mattress - ct abd/pelvis- unremarkable - pictures uploaded to patients chart - surgery consulted, appreciate recommendations (4) Chronic anticoagulation: Code(s): Z79.01 - group director experience (current) use of anticoagulants Status: Acute Assessment and Plan: INR 13.9 on admission (03/19)- Vit k x 1 given 03/20- INR 11.3 - given 5 mg po vit k x 1 given 03/21- INR 2.4 today- but hg dropped to 6.8 - so will not restart at this time stool for occult blood negative pt recently had egd/colonscopy- polyps were found -GI consulted- no intervention 03/27 - INR 3.8 - continue holding warfarin 03/28 - INR 3.5 - continue holding warfarin (5) Anemia: Code(s): D64.9 - Anemia, unspecified Status: Acute Assessment and Plan: Hemoglobin 6.8 on 03/21 requiring a unit blood transfusion H/H 7.7/24.6 on am labs INR 3.5 on am labs, continue holding warfarin No signs of active bleeding, fecal occult negative Iron panel: 28, TIBC 190, % sat 15 Started on iron supplementation B12 and folate WNL (6) Atrial fibrillation: Code(s): I48.91 - Unspecified atrial fibrillation Status: Acute Assessment and Plan: Chronic - Continue carvedilol 12.5 mg BID - Resumed warfarin 2.5 sat sun and 3.5 mg mon-fri on 03/25, INR 3.5 on 03/27. Warfarin again placed on hold. - Monitor (7) Hyperkalemia: Code(s): E87.5 - Hyperkalemia Status: Acute Assessment and Plan: received a liter of normal saline overnight. Potassium was a bit high but should improve with fluids however hold losartan, potassium supplement, and spironolactone poor nutrition-order supplements K 3.4 on am labs Continue holding losartan 50 mg daily and spironolactone 50 mg daily as patients blood pressure has been well controlled on the other antihypertensives alone Monitor (8) Hypertension: Code(s): I10 - Essential (primary) hypertension Status: Acute Assessment and Plan: chronic - continue carvedilol 12.5 mg BID and lasix 40 mg daily - currently holding losartan 50 mg daily and spironolactone 50 mg daily as patients blood pressure has been well controlled on the above alone - monitor (9) Insulin dependent type 2 diabetes mellitus: Code(s): E11.9 - Type 2 diabetes mellitus without complications; Z79.4 - group director experience (current) use of insulin Status: Acute Assessment and Plan: Continue basal insulin. Initiate sliding scale insulin, Accu-Cheks, and hypoglycemic protocol. BS reviewed- stable (10) Nonischemic cardiomyopathy: Code(s): I42.8 - Other cardiomyopathies Status: Acute Assessment and Plan: Chronic, continue home medications. (11) Chronic kidney disease, stage 4 (severe): Code(s): N18.4 - Chronic kidney disease, stage 4 (severe) Status: Acute Assessment and Plan: BUN/Cr 28/1.6 on am labs, appears to be in baseline - Avoid nephrotoxic medications - Renally dose medications - Monitor I/O Time Spent With Patient Time with patient: 25 - 35 minutes Subjective Date/time seen: 03/28/24 08:33 Interval history: 74-year-old male with multiple medical problems including atrial fibrillation, nonischemic cardiomyopathy, hypertension, hyperlipidemia, and insulin-dependent type 2 diabetes mellitus who presented to the emergency department via EMS from [facility] for evaluation of foot wounds. Patient is pleasant lying in bed. He states that he is doing okay today and has no current complaints denying chest pain, shortness of breath, nausea/vomiting and abdominal pain. Upon further chart review patients wounds have yet to be cultures and evaluated by surgery. Surgery consulted for further recommendations. Review of Systems Review of Systems: All systems reviewed & are unremarkable except as noted in HPI and below Exam Narrative: AF HR 90 RR 20 Spo2 98 BP 137/59 General: male in no acute respiratory distress who is nontoxic appearing, lying semi recumbent in bed. HEENT: Normocephalic. Atraumatic. Extraocular movement intact. Sclera clear and anicteric.No facial asymmetry. Chest: Lungs are clear to auscultation bilaterally. No wheezes or crackles. CV: Heart was regular rate and rhythm. S1/S2. No murmurs, gallops, or rubs. Abd: Abdomen was soft. Nontender. Nondistended. Positive bowel sounds. No organomegaly or masses. Ext: No clubbing, cyanosis, or edema. 1+ DP pulses bilaterally. Stage 3 sacral ulcer above the buttocks with clear drainage and dark tissue surrounding the tunneled area. Unstageable pressure ulcers to the right heel. Unstageable pressure ulcer to the left foot. Neuro: Patient is alert. Cranial nerves 2-12 are intact. Speech is clear. Objective Data Vital Signs Vital Signs: Vital Signs - 24 hr 03/27/24 08:42 03/27/24 14:00 03/27/24 20:17 Temperature 97.6 F Pulse Rate 85 87 87 Respiratory Rate 18 Blood Pressure 116/68 Pulse Oximetry 99 03/27/24 21:33 03/28/24 05:52 Temperature 98.2 F 97.2 F L Pulse Rate 83 90 Respiratory Rate 18 20 Blood Pressure 120/60 137/59 L Pulse Oximetry 98 98 Intake/Output Intake/Output: Intake & Output 03/25/24 03/26/24 03/27/24 03/28/24 23:59 23:59 23:59 23:59 Intake Total 676 1280 1435 500 Output Total 1200 1150 1700 650 Balance -524 130 -265 -150 Meds/Results Medications: Active Medications Generic Name Dose Route Start Last Admin Trade Name Freq PRN Reason Stop Dose Admin Acetaminophen 650 mg 03/19/24 20:56 03/23/24 21:04 Acetaminophen 325 Mg Tablet PO 650 mg Q6H PRN Administration Mild Pain (1-3) or Fever Atorvastatin Calcium 80 mg 03/20/24 09:00 03/27/24 08:44 Atorvastatin 40 Mg Tablet PO 80 mg DAILY CARMELA Administration Benzocaine 1 lozenge 03/25/24 15:23 03/27/24 12:59 Benzocaine/Menthol (*Bkc) 18 Ea Lozenge PO 1 lozenge PRN PRN Administration cough drops Benzonatate 100 mg 03/26/24 07:48 Benzonatate 100 Mg Capsule PO TID PRN Cough Carvedilol 12.5 mg 03/19/24 21:00 03/27/24 20:17 Carvedilol 12.5 Mg Tablet PO 12.5 mg Q12HR CARMELA Administration Dextrose 12.5 gm 03/19/24 17:24 Dextrose 50% 25 Gm/50 Ml Syringe IV PUSH PRN PRN Hypoglycemia Protocol Ferrous Sulfate 325 mg 03/27/24 17:00 03/27/24 17:45 Ferrous Sulfate [address] PO 325 mg BID CARMELA Administration Furosemide 40 mg 03/20/24 09:00 03/27/24 08:44 Furosemide 40 Mg Tablet PO 40 mg DAILY CARMELA Administration Glucagon 1 mg 03/19/24 17:24 Glucagon For Inj 1 Mg Vial IM PRN PRN Hypoglycemia Protocol Glucose 15 gm 03/19/24 17:24 Glucose Oral Gel 15 Gm Of Glucse In 37.5 Gm Tube PO PRN PRN Hypoglycemia Protocol Guaifenesin 600 mg 03/25/24 21:00 03/27/24 20:17 Guaifenesin 12 Hr 600 Mg Tabcr PO 600 mg Q12HR CARMELA Administration Dextrose 1,000 mls @ 100 mls/hr 03/19/24 17:24 Dextrose 5% 1,000 Ml IVPB PRN PRN Hypoglycemia Protocol Ceftriaxone Sodium 2 gm in 100 mls @ 200 mls/hr 03/22/24 16:00 03/27/24 16:02 Rocephin 2 Gm/Ns 100 Ml IVPB Infused Q24H CARMELA Infusion Insulin Aspart 2 - 4 units 03/19/24 21:00 03/27/24 21:00 Insulin Aspart (*Bkc) 100 Units/Ml SUB-Q Not Given HS CARMELA Protocol Insulin Aspart 4 - 8 units 03/20/24 08:00 03/27/24 16:25 Insulin Aspart (*Bkc) 100 Units/Ml SUB-Q Not Given TIDWM [facility] Protocol Insulin Human Regular 40 units 03/20/24 08:00 03/27/24 08:37 Insulin Human Regular (*Bkc) 100 Units/Ml SUB-Q 40 units DAILY@0800 CARMELA Administration Pantoprazole Sodium 40 mg 03/22/24 09:00 03/27/24 20:17 Pantoprazole Sodium Iv 40 Mg Vial IV PUSH 40 mg Q12HR CARMELA Administration Potassium Chloride 40 meq 03/26/24 09:00 03/27/24 08:40 Potassium Chloride 20 Meq Packet (For Liquid) PO 40 meq DAILY CARMELA Administration Sodium Hypochlorite 1 applic 03/20/24 09:00 03/28/24 06:44 Sod Hypochlorite 1/4 Strength 473 Ml TOPICAL 1 applic Q12HR CARMELA Administration Warfarin Sodium 2.5 mg 03/23/24 17:00 03/26/24 17:02 Warfarin (*Pbkc) 2.5 Mg Tablet PO 2.5 mg DAILY@1700 [facility] Administration Warfarin Sodium 1 mg 03/25/24 17:00 03/26/24 17:01 Warfarin (*Pbkc) 1 Mg Tablet PO 1 mg MoTuWeThFr@1700 [facility] Administration Radiology Results: ITS Impressions Heel X-Ray 03/19/24 11:30 IMPRESSION: No acute osseous abnormality. Abdomen Ultrasound 03/23/24 09:20 IMPRESSION: 1. Cholelithiasis. No evidence of acute cholecystitis. Chest X-Ray 03/24/24 08:53 IMPRESSION: 1. No acute cardiopulmonary disease. Foot X-Ray 03/24/24 10:22 IMPRESSION: 1. No evidence of osteomyelitis. Chest/Abdomen/Pelvis CTA 03/25/24 05:26 IMPRESSION: 1. No pulmonary embolus. 2. Small pleural effusions. 3. Small sliding hiatal hernia. 4. Pulmonary nodules again seen measuring up to 9 mm, which may be infection or malignancy. Noncontrast low-dose chest CT is recommended in 3 months. 5. Mildly enlarged right infrahilar lymph node. Labs Labs: Laboratory Results - last 24 hr 03/27/24 03/27/24 03/27/24 12:28 16:18 20:43 POC Capillary Glucose 129 H 97 106 H Quality VTE Prophylaxis VTE prophylaxis: mechanical ordered
[2024-03-28 08:39] LABS: Basophils Percent Auto 0.2 % (0.2-1.2); Eosinophils Absolute Auto 0.1 K/mm3 (0-0.3); Eosinophils Percent Auto 1.3 % (0-4.4); Hematocrit 24.6 % (42.0-52.0); Hemoglobin 7.7 g/dL (14.0-18.0); Immature Granulocyte Percent A 2.1 % (0-0.5); Lymphocytes Absolute Auto 1.43 K/mm3 (0.9-3.2); Lymphocytes Percent Auto 14.9 % (18.3-44.2); Mean Corpuscular HGB Conc 31.3 g/dl (32-36); Mean Corpuscular Hemoglobin 30.1 pg (26-34); Mean Corpuscular Volume 96.1 fl (80-100); Mean Platelet Volume 9.9 fl (7.4-10.4); Monocytes Absolute Auto 0.5 K/mm3 (0.1-0.6); Monocytes Percent Auto 5.1 % (2.6-8.5); Neutrophils Absolute Auto 7.3 K/mm3 (1.3-6.7); Neutrophils Percent Auto 76.4 % (45.5-73.1); Platelet Count Result 265 k/mm3 (150-375); Red Blood Count 2.56 M/mm3 (4.6-6.20); Red Cell Distribution Width 16.9 % (11.5-14.5); White Blood Count 9.6 K/mm3 (4.5-10.0)
[2024-03-28 08:52] LABS: INR 3.5; Prothrombin Time 35.1 Seconds (11.1-14.7)
[2024-03-28 08:55] LABS: Alanine Aminotransferase 71 U/L (6-50); Albumin Level 2.4 g/dL (3.5-5.1); Alkaline Phosphatase 191 U/L (38-126); Anion Gap -1 mmol/L (4-12); Aspartate Amino Transferase 92 U/L (17-59); Bilirubin,Total 0.5 mg/dL (0.2-1.3); Blood Urea Nitrogen 28 mg/dL (9-20); Calcium 8.2 mg/dL (8.4-10.2); Carbon Dioxide 29 mmol/L (22-30); Chloride 107 mmol/L (98-107); Estimated CRCL calculation 55 ml/min; Estimated Glomerular Filt Rate 42; Glucose 124 mg/dL (65-110); Potassium 3.4 mmol/L (3.4-5.0); Sodium 135 mmol/L (137-145)
[2024-03-28] MEDS: POTASSIUM CHLORIDE 20 MEQ PACKET (FOR LIQUID) 40 MEQ PO (09:46)
[2024-03-28] MEDS: guaiFENesin 12 HR 600 MG TABCR PO ×2 (09:46→20:57)
[2024-03-28] MEDS: ATORVASTATIN 40 MG TABLET 80 MG PO (09:46)
[2024-03-28] MEDS: FUROSEMIDE 40 MG TABLET PO (09:46)
[2024-03-28 09:47] VITALS: PULSE 65
[2024-03-28] MEDS: carvediloL 12.5 MG TABLET PO ×2 (09:47→20:57)
[2024-03-28] MEDS: PANTOPRAZOLE SODIUM IV 40 MG VIAL IV PUSH ×2 (09:47→20:57)
[2024-03-28] MEDS: FERROUS SULFATE 325 MG TABLET DR PO ×2 (09:47→16:32)
--- NOTE | 2024-03-28 09:57 | PCNFU ---
Nutrition Follow-Up Complete: Increased protein energy needs related to wound healing as evidenced by wound report of multiple pressure injuries Goal:Adequate PO intake to support wound healing Pt meeting goal, continue with same goal. Pt current nutrition is Diabetic, JOSE MIGUEL BID, glucerna shakes BID. Nutrition recommendation: continue with current plan of care Last recorded weight is 139.5 kg. Bowel Motility: +BM 03/26 Labs Reviewed: Hgb:7.7, HCT:24.6, alb:2.4, BUN:28, Cr:1.6, Glu:124 Meds Noted: Skin: DTPI to foot, stage III to sacrum, unstageable to heel and foot. Additional Notes: Pt continues on a diabetic diet, intake 75-100% all meals, plus supplements. Agree with orders, continue with current plan of care. Monitoring intakes, weights, labs, supplement tolerance, wounds, plan of are Follow up in 7 days
[2024-03-28] MEDS: INSULIN HUMAN REGULAR (*BKC) 100 UNITS/ML 40 UNITS SUB-Q (09:58)
[2024-03-28] MEDS: BENZOCAINE/MENTHOL (*BKC) 18 EA LOZENGE 1 LOZENGE PO (10:01)
[2024-03-28 12:02] LABS: Glucose Point of Care 140 mg/dl (65-105)
[2024-03-28 14:00] VITALS: BP 140/60; PULSE 95; RESP 20; TEMP 36.4; O2SAT 98
[2024-03-28] MEDS: cefTRIAXone 2 GM/NS 100 ML 2 GM/100 ML BAG IVPB (16:32)
[2024-03-28 16:52] LABS: Glucose Point of Care 121 mg/dl (65-105)
--- NOTE | 2024-03-28 18:31 | PM.CNGS ---
Assessment and Plan Assessment and plan (1) Sacral decubitus ulcer, stage III: Code(s): L89.153 - Pressure ulcer of sacral region, stage 3 Status: Chronic Assessment and Plan: Clean and healing. Continue silver gel and dressing changes. Air mattress. No surgery needed for sacral and buttocks decubiti I or for the lower extremity decubiti. Continue wound care as below and per wound care nurses. We will sign off. (2) Decubitus ulcer of left foot, unstageable: Code(s): L89.890 - Pressure ulcer of other site, unstageable Status: Chronic Assessment and Plan: Decubitus ulcer, dry with no signs of infection. Continue 0.25% Dakin solution, ABD, Kerlix wrap. Important to continue waffle boots so no further pressure injury occurs. (3) Decubitus ulcer of heel, bilateral, unstageable: Code(s): L89.610 - Pressure ulcer of right heel, unstageable; L89.620 - Pressure ulcer of left heel, unstageable Status: Chronic Assessment and Plan: Same treatment as above. No evidence that these are a source of infection. (4) Peripheral vascular disease in type 1 diabetes mellitus: Code(s): E10.51 - Type 1 diabetes mellitus with diabetic peripheral angiopathy without gangrene Status: Chronic Assessment and Plan: Good popliteal pulses bilaterally but right foot has no palpable pulses. Both posterior tibia and dorsalis pedis pulses are palpable in the left foot. (5) Bacteremia due to Staphylococcus: Code(s): R78.81 - Bacteremia; B95.8 - Unspecified staphylococcus as the cause of diseases classified elsewhere Status: Acute Assessment and Plan: Repeat blood cultures 03/24/2024 both negative. No evidence that the source of bacteremia is the lower extremity or sacral ulcers. (6) COVID-19 determined by clinical diagnostic criteria: Code(s): U07.1 - COVID-19 Status: Acute Assessment and Plan: On droplet isolation (7) Chronic anticoagulation: Code(s): Z79.01 - [facility] (current) use of anticoagulants Status: Chronic Assessment and Plan: Continue (8) Atrial fibrillation: Qualifiers: Atrial fibrillation type: longstanding persistent Qualified Code(s): I48.11 - Longstanding persistent atrial fibrillation Code(s): I48.91 - Unspecified atrial fibrillation Status: Chronic Assessment and Plan: Controlled rate (9) CHF (congestive heart failure): Qualifiers: Heart failure type: systolic Heart failure chronicity: chronic Qualified Code(s): I50.22 - Chronic systolic (congestive) heart failure Code(s): I50.9 - Heart failure, unspecified Status: Chronic (10) Diabetic neuropathy: Code(s): E11.40 - Type 2 diabetes mellitus with diabetic neuropathy, unspecified Status: Chronic (11) Insulin dependent type 2 diabetes mellitus: Code(s): E11.9 - Type 2 diabetes mellitus without complications; Z79.4 - [employer] (current) use of insulin Status: Chronic History of Present Illness Consult details Consult date: 03/28/24 Reason for consult: other (Decubitus ulcers both feet) Requesting physician: Gail Rothman PA-C Narrative: Patient is a 74-year-old man with ischemic cardiomyopathy, atrial fibrillation, chronic anticoagulation, and insulin-dependent diabetes with diabetic neuropathy. He was in the emergency room in January with some leg weakness. He returned in February and was admitted with urinary tract infection and sepsis. At that time it was noted that he had significant leg weakness. MRI was negative for a tumor or spinal stenosis origin. His leg weakness is felt to be due to generalized deterioration. After his admission in February, he was sent to [facility] for retirement and physical therapy. He was lack Luster in his participation and in fact developed decubitus ulcers of both feet. Wound nursing at [facility] felt that the feet looked worse and could possibly be infected. He was transferred to [facility] where he was seen in the emergency room and admitted on 03/19/2024. He did have some blood cultures that were positive for Staph aureus sensitive to all antibiotics tested. His urine culture was negative but, interestingly daily, 1 of his blood cultures not only showed Staph aureus but also Citrobacter Koseri, the same bacteria cultured from his urinary tract in February. Blood cultures in February were negative. He has been treated with broad-spectrum antibiotics. Due to his positive blood cultures, concerns existed regarding the source being the foot ulcers. He has been seen by the wound care specialty nurses and dressing changes with waffle boots have been ordered. He is seen now in consultation per. Also significant, patient did test positive for COVID-19 3 days ago and is on droplet isolation. He has a cough but does not feel like he has a respiratory infection or a GI illness. Review of Systems Review of Systems: All systems reviewed & are unremarkable except as noted in HPI and below (HPI) [facility] Past Medical History Medical History Acute on chronic kidney failure Bacteremia due to Staphylococcus Acute on chronic anemia Monoclonal gammopathy of unknown significance Chronic anticoagulation Chronic kidney disease, stage 4 (severe) Nonischemic cardiomyopathy Venous insufficiency Hypertension Insulin dependent type 2 diabetes mellitus Atrial fibrillation Vitamin D deficiency Urticaria Mixed hyperlipidemia Asthma Basal cell carcinoma (BCC) of brow Surgical History Surgical History History of cardiac catheterization no obstructive disease per patient report History of cardioversion History of bilateral cataract extraction History of basal cell carcinoma excision History of arthroscopy of both knees History of colonoscopy with polypectomy Family History Family History Father Family history of emphysema, Onset Age: 69 Social History Social History Social History: Surrogate medical decision maker: Jose Isaac (son) or Josy Weston (sibling). Code status: Full code. Smoking status: Never smoker Alcohol intake: never Alcohol use details: social alcohol use in moderation Substance use: never Substance use type: does not use Do You Feel Safe in your Home?: Yes Lack of Transportation: No Lack of Food: Never True Current Housing: I Have Housing Concerned About Future Housing: No Difficulty Paying Gas/Electric Bills: No Difficulty Paying for Meds: No Currently Unemployed: No Education: Decline to Answer Difficulty w/ Childcare or Family Care: No Living arrangements: alone Additional living arrangements comments: the patient lives in his own home in [place] Occupation/Education: retired Spiritual care concerns: No Meds Home Medications and Allergies Home Medications ?Medication ?Instructions ?Recorded ?Confirmed ?Type losartan 50 mg tablet 50 mg PO DAILY 01/30/19 03/19/24 History potassium chloride 20 mEq 20 meq PO DAILY 01/30/19 03/19/24 History tablet,extended release spironolactone 50 mg tablet 50 mg PO DAILY 01/30/19 03/19/24 History cholecalciferol (vitamin D3) 1,250 1,250 mcg PO WEEKLY #14 tabs 09/14/23 03/19/24 Rx mcg (50,000 unit) tablet semaglutide 1 mg/dose (2 mg/1.5 1 mg subcut WEEKLY 11/01/23 03/19/24 History mL) subcutaneous pen injector flash glucose sensor (FreeStyle #2 kits 11/24/23 03/19/24 Rx Germania 2 Sensor kit) pen needle, diabetic 32 gauge x #200 ea 12/13/23 03/19/24 Rx /32 (BD Lona 2nd Gen Pen Needle) glucagon 1 mg/0.2 mL subcutaneous 1 mg (0.2 mL) subcut ONCE #0.4 mL 01/15/24 03/19/24 Rx auto-injector (Gvoke HypoPen 2-Pack) insulin regular hum U-500 conc 500 40 unit subcut DAILY 01/15/24 03/19/24 History unit/mL(3 mL) subcut pen (Humulin R U-500 (Conc) Insulin Kwikpen) atorvastatin 80 mg tablet 80 mg PO DAILY #90 tabs 01/24/24 03/19/24 Rx fenofibrate 54 mg tablet 54 mg PO DAILY 02/11/24 03/19/24 History carvedilol 25 mg tablet 12.5 mg (1/2 x 25 mg) PO BID #60 02/16/24 03/19/24 Rx tabs furosemide 80 mg tablet 40 mg (1/2 x 80 mg) PO DAILY #15 02/16/24 03/19/24 Rx tabs warfarin 5 mg tablet 2.5 mg (1/2 x 5 mg) PO DAILY #15 02/16/24 03/19/24 Rx tabs Allergies Allergy/AdvReac Type Severity Reaction Status Date / Time No Known Allergies Allergy Verified 03/19/24 12:14 Vital Signs Vital Signs - 24 hr 03/27/24 20:17 03/27/24 21:33 03/28/24 05:52 Temperature 36.8 C 36.2 C L Pulse Rate 87 83 90 Respiratory Rate 18 20 Blood Pressure 120/60 137/59 L Pulse Oximetry 98 98 03/28/24 09:47 03/28/24 14:00 Temperature 36.4 C L Pulse Rate 65 95 Respiratory Rate 20 Blood Pressure 140/60 Pulse Oximetry 98 Exam Const: General: comfortable, no acute distress, alert and awake HENMT: Head: normocephalic and atraumatic Mouth: Yes Normal oral and palatal mucosa present Eyes: Conjunctivae: conjunctivae normal Pupils: Equal, round and reactive pupils present EOM: EOMs intact bilaterally Neck: Neck: normal visual inspection, no lymphadenopathy and nontender Resp: Effort & Inspection: normal respiratory effort Auscultation: clear to auscultation bilaterally Cardio: Rate: tachycardic (95 per minute, rate varies) Rhythm: regular rhythm and abnormal rhythm irregularly irregular Heart sounds: no gallops, no murmurs and no rubs Peripheral pulses: popliteal pulses present bilateral, posterior tibial pulses present on the left 2+; not on the right and dorsalis pedis present on the left 2+; not on the right GI: Inspection: non-distended GI Palp: Yes Soft to palpation, No Tenderness to palpation present (GI), No Hepatomegaly present and No Splenomegaly present Back/Spine/Pelvis: Sacrum: no erythema, no swelling and other (10 x 10 cm clean, stage III pressure ulcer upper buttocks and entire sacrum) Skin: Lesions: no lesions Rashes: no rashes Neuro: General: no focal motor deficits and CN's II-XI intact bilaterally Cranial nerves: Yes Equal, round and reactive pupils present, Yes Bilaterally intact EOM present, Yes facial symmetry and Yes Midline tongue present Speech: normal speech Motor exam (neuro): Motor abnormalities not present and Other motor observations present (Can not lift legs but can flex ankles and toes) Sensory Exam: Abnormal lower extremity sensory exam (Sensory deficit bilateral especially feet) Extrem: General: edema bilateral (Brawny lower extremity edema consistent with mild venous stasis disease) and pedal edema bilaterally pitting and 2+ (Ankles) Right lower extremity: foot (Dry eschar over heel, unstageable ulcer but no evidence of infection.) Details: vascular exam Details: abnormal capillary refill Location: of all toes; dorsalis pedis pulse absent, posterior tibial pulse absent, not cool and no cyanosis and other (Small ulcer distal phalanx right 3rd toe, no swelling or infection) Left lower extremity: foot (Dry black and ulcer lateral plantar, heel; no drainage, redness, or swellin) Details: vascular exam Details: dorsalis pedis pulse present, posterior tibial pulse present and normal capillary refill; no tenderness, no unusual warmth, edema noted and no crepitus Psych: Speech and movement: Clear speech present Affect: Indifferent affect present and Blunted affect present Attitude: cooperative Thought process: Other thought process findings present (Forgetful) Insight: Limited insight present (Psych) Judgement: Limited judgement present (Psych) Results Labs 03/28/24 05:00 03/28/24 08:10 Labs: Abnormal lab results 03/27/24 03/28/24 03/28/24 Range/Units 20:43 05:00 08:10 RBC 2.56 L (4.6-6.20) M/mm3 Hgb 7.7 L (14.0-18.0) g/dL Hct 24.6 L (42.0-52.0) % MCHC 31.3 L (32-36) g/dl RDW 16.9 H (11.5-14.5) % Immature Gran % (Auto) 2.1 H (0-0.5) % Neut % (Auto) 76.4 H (45.5-73.1) % Lymph % (Auto) 14.9 L (18.3-44.2) % Abs Immat Gran (auto) 0.20 H (0.00-0.031) K/mm3 Absolute Neuts (auto) 7.3 H (1.3-6.7) K/mm3 PT 35.1 H (11.1-14.7) Seconds Sodium 135 L (137-145) mmol/L Anion Gap -1 L (4-12) mmol/L BUN 28 H (9-20) mg/dL Creatinine 1.60 H (0.7-1.3) mg/dL Estimated GFR 42 L (59 - ) Glucose 124 H (65-110) mg/dL POC Capillary Glucose 106 H (65-105) mg/dl Calcium 8.2 L (8.4-10.2) mg/dL AST 92 H (17-59) U/L ALT 71 H (6-50) U/L Alkaline Phosphatase 191 H (38-126) U/L Total Protein 6.0 L (6.3-8.2) g/dL Albumin 2.4 L (3.5-5.1) g/dL 03/28/24 03/28/24 03/28/24 Range/Units 08:15 11:51 16:43 RBC (4.6-6.20) M/mm3 Hgb (14.0-18.0) g/dL Hct (42.0-52.0) % MCHC (32-36) g/dl RDW (11.5-14.5) % Immature Gran % (Auto) (0-0.5) % Neut % (Auto) (45.5-73.1) % Lymph % (Auto) (18.3-44.2) % Abs Immat Gran (auto) (0.00-0.031) K/mm3 Absolute Neuts (auto) (1.3-6.7) K/mm3 PT (11.1-14.7) Seconds Sodium (137-145) mmol/L Anion Gap (4-12) mmol/L BUN (9-20) mg/dL Creatinine (0.7-1.3) mg/dL Estimated GFR (59 - ) Glucose (65-110) mg/dL POC Capillary Glucose 136 H 140 H 121 H (65-105) mg/dl Calcium (8.4-10.2) mg/dL AST (17-59) U/L ALT (6-50) U/L Alkaline Phosphatase (38-126) U/L Total Protein (6.3-8.2) g/dL Albumin (3.5-5.1) g/dL Diabetes panel 03/28/24 Range/Units 08:10 Sodium 135 L (137-145) mmol/L Potassium 3.4 (3.4-5.0) mmol/L Chloride 107 (98-107) mmol/L Carbon Dioxide 29 (22-30) mmol/L BUN 28 H (9-20) mg/dL Creatinine 1.60 H (0.7-1.3) mg/dL Glucose 124 H (65-110) mg/dL Calcium 8.2 L (8.4-10.2) mg/dL AST 92 H (17-59) U/L ALT 71 H (6-50) U/L Alkaline Phosphatase 191 H (38-126) U/L Total Protein 6.0 L (6.3-8.2) g/dL Albumin 2.4 L (3.5-5.1) g/dL Calcium panel 03/28/24 Range/Units 08:10 Calcium 8.2 L (8.4-10.2) mg/dL Albumin 2.4 L (3.5-5.1) g/dL Pituitary panel 03/28/24 Range/Units 08:10 Sodium 135 L (137-145) mmol/L Potassium 3.4 (3.4-5.0) mmol/L Chloride 107 (98-107) mmol/L Carbon Dioxide 29 (22-30) mmol/L BUN 28 H (9-20) mg/dL Creatinine 1.60 H (0.7-1.3) mg/dL Glucose 124 H (65-110) mg/dL Calcium 8.2 L (8.4-10.2) mg/dL Adrenal panel 03/28/24 Range/Units 08:10 Sodium 135 L (137-145) mmol/L Potassium 3.4 (3.4-5.0) mmol/L Chloride 107 (98-107) mmol/L Carbon Dioxide 29 (22-30) mmol/L BUN 28 H (9-20) mg/dL Creatinine 1.60 H (0.7-1.3) mg/dL Glucose 124 H (65-110) mg/dL Calcium 8.2 L (8.4-10.2) mg/dL Total Bilirubin 0.5 (0.2-1.3) mg/dL AST 92 H (17-59) U/L ALT 71 H (6-50) U/L Alkaline Phosphatase 191 H (38-126) U/L Total Protein 6.0 L (6.3-8.2) g/dL Albumin 2.4 L (3.5-5.1) g/dL All other labs normal.
[2024-03-28 20:57] VITALS: PULSE 86
[2024-03-28] MEDS: BENZONATATE 100 MG CAPSULE PO (20:57)
[2024-03-28 21:25] LABS: Glucose Point of Care 112 mg/dl (65-105)
[2024-03-28 22:00] VITALS: BP 126/63; PULSE 72; RESP 20; TEMP 36.7; O2SAT 98
[2024-03-29 05:45] VITALS: BP 125/58; PULSE 81; RESP 20; TEMP 36.5; O2SAT 96
[2024-03-29 07:14] LABS: Basophils Percent Auto 0.3 % (0.2-1.2); Eosinophils Absolute Auto 0.1 K/mm3 (0-0.3); Eosinophils Percent Auto 0.7 % (0-4.4); Hematocrit 24.6 % (42.0-52.0); Hemoglobin 7.8 g/dL (14.0-18.0); Immature Granulocyte Absolute 0.22 K/mm3 (0.00-0.031); Lymphocytes Absolute Auto 1.41 K/mm3 (0.9-3.2); Lymphocytes Percent Auto 12.9 % (18.3-44.2); Mean Corpuscular HGB Conc 31.7 g/dl (32-36); Mean Corpuscular Hemoglobin 30.5 pg (26-34); Mean Corpuscular Volume 96.1 fl (80-100); Mean Platelet Volume 10.1 fl (7.4-10.4); Monocytes Absolute Auto 0.7 K/mm3 (0.1-0.6); Monocytes Percent Auto 5.9 % (2.6-8.5); Neutrophils Absolute Auto 8.6 K/mm3 (1.3-6.7); Neutrophils Percent Auto 78.2 % (45.5-73.1); Platelet Count Result 288 k/mm3 (150-375); Red Blood Count 2.56 M/mm3 (4.6-6.20); Red Cell Distribution Width 17.2 % (11.5-14.5)
[2024-03-29 07:27] LABS: Alanine Aminotransferase 78 U/L (6-50); Albumin Level 2.4 g/dL (3.5-5.1); Alkaline Phosphatase 218 U/L (38-126); Anion Gap -2 mmol/L (4-12); Aspartate Amino Transferase 92 U/L (17-59); Bilirubin,Total 0.6 mg/dL (0.2-1.3); Blood Urea Nitrogen 23 mg/dL (9-20); Calcium 8.1 mg/dL (8.4-10.2); Carbon Dioxide 31 mmol/L (22-30); Chloride 107 mmol/L (98-107); Estimated CRCL calculation 63 ml/min; Estimated Glomerular Filt Rate 50; Glucose 94 mg/dL (65-110); Potassium 3.2 mmol/L (3.4-5.0); Sodium 136 mmol/L (137-145)
[2024-03-29 07:29] LABS: INR 2.8; Prothrombin Time 29.8 Seconds (11.1-14.7)
--- NOTE | 2024-03-29 07:36 | PM.IMPN ---
Subjective Date/time seen: 03/29/24 07:36 Objective Data Vital Signs Vital Signs: Vital Signs - 24 hr 03/28/24 09:47 03/28/24 14:00 03/28/24 20:00 Temperature 97.5 F L Pulse Rate 65 95 Respiratory Rate 20 Blood Pressure 140/60 Pulse Oximetry 98 Oxygen Delivery Room Air 03/28/24 20:57 03/28/24 22:00 03/29/24 05:45 Temperature 98.0 F 97.7 F Pulse Rate 86 72 81 Respiratory Rate 20 20 Blood Pressure 126/63 125/58 L Pulse Oximetry 98 96 Oxygen Delivery Intake/Output Intake/Output: Intake & Output 03/26/24 03/27/24 03/28/24 03/29/24 23:59 23:59 23:59 23:59 Intake Total 1280 1435 1560 700 Output Total 1150 1700 1650 700 Balance 130 -265 -90 0 Meds/Results Medications: Active Medications Generic Name Dose Route Start Last Admin Trade Name Freq PRN Reason Stop Dose Admin Acetaminophen 650 mg 03/19/24 20:56 03/23/24 21:04 Acetaminophen 325 Mg Tablet PO 650 mg Q6H PRN Administration Mild Pain (1-3) or Fever Atorvastatin Calcium 80 mg 03/20/24 09:00 03/28/24 09:46 Atorvastatin 40 Mg Tablet PO 80 mg DAILY CARMELA Administration Benzocaine 1 lozenge 03/25/24 15:23 03/28/24 10:01 Benzocaine/Menthol (*Bkc) 18 Ea Lozenge PO 1 lozenge PRN PRN Administration cough drops Benzonatate 100 mg 03/26/24 07:48 03/28/24 20:57 Benzonatate 100 Mg Capsule PO 100 mg TID PRN Administration Cough Carvedilol 12.5 mg 03/19/24 21:00 03/28/24 20:57 Carvedilol 12.5 Mg Tablet PO 12.5 mg Q12HR CARMELA Administration Dextrose 12.5 gm 03/19/24 17:24 Dextrose 50% 25 Gm/50 Ml Syringe IV PUSH PRN PRN Hypoglycemia Protocol Ferrous Sulfate 325 mg 03/27/24 17:00 03/28/24 16:32 Ferrous Sulfate [address] PO 325 mg BID CARMELA Administration Furosemide 40 mg 03/20/24 09:00 03/28/24 09:46 Furosemide 40 Mg Tablet PO 40 mg DAILY CARMELA Administration Glucagon 1 mg 03/19/24 17:24 Glucagon For Inj 1 Mg Vial IM PRN PRN Hypoglycemia Protocol Glucose 15 gm 03/19/24 17:24 Glucose Oral Gel 15 Gm Of Glucse In 37.5 Gm Tube PO PRN PRN Hypoglycemia Protocol Guaifenesin 600 mg 03/25/24 21:00 03/28/24 20:57 Guaifenesin 12 Hr 600 Mg Tabcr PO 600 mg Q12HR CARMELA Administration Dextrose 1,000 mls @ 100 mls/hr 03/19/24 17:24 Dextrose 5% 1,000 Ml IVPB PRN PRN Hypoglycemia Protocol Ceftriaxone Sodium 2 gm in 100 mls @ 200 mls/hr 03/22/24 16:00 03/28/24 17:02 Rocephin 2 Gm/Ns 100 Ml IVPB Infused Q24H CARMELA Infusion Insulin Aspart 2 - 4 units 03/19/24 21:00 03/28/24 20:59 Insulin Aspart (*Bkc) 100 Units/Ml SUB-Q Not Given HS CARMELA Protocol Insulin Aspart 4 - 8 units 03/20/24 08:00 03/28/24 17:02 Insulin Aspart (*Bkc) 100 Units/Ml SUB-Q Not Given TIDWM CARMELA Protocol Insulin Human Regular 40 units 03/20/24 08:00 03/28/24 09:58 Insulin Human Regular (*Bkc) 100 Units/Ml SUB-Q 40 units DAILY@0800 CARMELA Administration Pantoprazole Sodium 40 mg 03/22/24 09:00 03/28/24 20:57 Pantoprazole Sodium Iv 40 Mg Vial IV PUSH 40 mg Q12HR CARMELA Administration Potassium Chloride 40 meq 03/26/24 09:00 03/28/24 09:46 Potassium Chloride 20 Meq Packet (For Liquid) PO 40 meq DAILY CARMELA Administration Sodium Hypochlorite 1 applic 03/20/24 09:00 03/28/24 20:59 Sod Hypochlorite 1/4 Strength 473 Ml TOPICAL 1 applic Q12HR CARMELA Administration Warfarin Sodium 2.5 mg 03/23/24 17:00 03/26/24 17:02 Warfarin (*Pbkc) 2.5 Mg Tablet PO 2.5 mg DAILY@1700 CARMELA Administration Warfarin Sodium 1 mg 03/25/24 17:00 03/26/24 17:01 Warfarin (*Pbkc) 1 Mg Tablet PO 1 mg [id number] CARMELA Administration Radiology Results: ITS Impressions Heel X-Ray 03/19/24 11:30 IMPRESSION: No acute osseous abnormality. Abdomen Ultrasound 03/23/24 09:20 IMPRESSION: 1. Cholelithiasis. No evidence of acute cholecystitis. Chest X-Ray 03/24/24 08:53 IMPRESSION: 1. No acute cardiopulmonary disease. Foot X-Ray 03/24/24 10:22 IMPRESSION: 1. No evidence of osteomyelitis. Chest/Abdomen/Pelvis CTA 03/25/24 05:26 IMPRESSION: 1. No pulmonary embolus. 2. Small pleural effusions. 3. Small sliding hiatal hernia. 4. Pulmonary nodules again seen measuring up to 9 mm, which may be infection or malignancy. Noncontrast low-dose chest CT is recommended in 3 months. 5. Mildly enlarged right infrahilar lymph node. Labs Labs: Laboratory Results - last 24 hr 03/28/24 03/28/24 03/28/24 05:00 08:10 08:15 WBC 9.6 RBC 2.56 L Hgb 7.7 L Hct 24.6 L MCV 96.1 MCH 30.1 MCHC 31.3 L RDW 16.9 H Plt Count 265 MPV 9.9 Immature Gran % (Auto) 2.1 H Neut % (Auto) 76.4 H Lymph % (Auto) 14.9 L [place] % (Auto) 5.1 Eos % (Auto) 1.3 Baso % (Auto) 0.2 Lymph # (Auto) 1.43 [place] # (Auto) 0.5 Eos # (Auto) 0.1 Baso # (Auto) 0.0 Abs Immat Gran (auto) 0.20 H Absolute Neuts (auto) 7.3 H Absolute Nucleated RBC 0.000 Nucleated RBC % 0.0 PT 35.1 H INR 3.5 Sodium 135 L Potassium 3.4 Chloride 107 Carbon Dioxide 29 Anion Gap -1 L BUN 28 H Creatinine 1.60 H Estim Creat Clear Calc 55 Estimated GFR 42 L Glucose 124 H POC Capillary Glucose 136 H Calcium 8.2 L Total Bilirubin 0.5 AST 92 H ALT 71 H Alkaline Phosphatase 191 H Total Protein 6.0 L Albumin 2.4 L 03/28/24 03/28/24 03/28/24 11:51 16:43 19:43 WBC RBC Hgb Hct MCV MCH MCHC RDW Plt Count MPV Immature Gran % (Auto) Neut % (Auto) Lymph % (Auto) [place] % (Auto) Eos % (Auto) Baso % (Auto) Lymph # (Auto) [place] # (Auto) Eos # (Auto) Baso # (Auto) Abs Immat Gran (auto) Absolute Neuts (auto) Absolute Nucleated RBC Nucleated RBC % PT INR Sodium Potassium Chloride Carbon Dioxide Anion Gap BUN Creatinine Estim Creat Clear Calc Estimated GFR Glucose POC Capillary Glucose 140 H 121 H 112 H Calcium Total Bilirubin AST ALT Alkaline Phosphatase Total Protein Albumin 03/29/24 03/29/24 06:36 06:37 WBC 11.0 H RBC 2.56 L Hgb 7.8 L Hct 24.6 L MCV 96.1 MCH 30.5 MCHC 31.7 L RDW 17.2 H Plt Count 288 MPV 10.1 Immature Gran % (Auto) 2.0 H Neut % (Auto) 78.2 H Lymph % (Auto) 12.9 L [place] % (Auto) 5.9 Eos % (Auto) 0.7 Baso % (Auto) 0.3 Lymph # (Auto) 1.41 [place] # (Auto) 0.7 H Eos # (Auto) 0.1 Baso # (Auto) 0.0 Abs Immat Gran (auto) 0.22 H Absolute Neuts (auto) 8.6 H Absolute Nucleated RBC 0.000 Nucleated RBC % 0.0 PT 29.8 H INR 2.8 Sodium 136 L Potassium 3.2 L Chloride 107 Carbon Dioxide 31 H Anion Gap -2 L BUN 23 H Creatinine 1.40 H Estim Creat Clear Calc 63 Estimated GFR 50 L Glucose 94 POC Capillary Glucose Calcium 8.1 L Total Bilirubin 0.6 AST 92 H ALT 78 H Alkaline Phosphatase 218 H Total Protein 6.0 L Albumin 2.4 L
[2024-03-29 07:45] LABS: Glucose Point of Care 100 mg/dl (65-105)
[2024-03-29 08:00] VITALS: PULSE 98; O2SAT 96
[2024-03-29] MEDS: INSULIN HUMAN REGULAR (*BKC) 100 UNITS/ML 30 UNITS SUB-Q (08:18)
[2024-03-29] MEDS: PANTOPRAZOLE SODIUM IV 40 MG VIAL IV PUSH (08:21)
[2024-03-29] MEDS: POTASSIUM CHLORIDE 20 MEQ PACKET (FOR LIQUID) 40 MEQ PO (08:22)
[2024-03-29] MEDS: guaiFENesin 12 HR 600 MG TABCR PO (08:23)
[2024-03-29] MEDS: FERROUS SULFATE 325 MG TABLET DR PO ×2 (08:23→16:39)
[2024-03-29] MEDS: FUROSEMIDE 40 MG TABLET PO (08:24)
[2024-03-29] MEDS: ATORVASTATIN 40 MG TABLET 80 MG PO (08:24)
[2024-03-29 08:25] VITALS: PULSE 98
[2024-03-29] MEDS: carvediloL 12.5 MG TABLET PO (08:25)
[2024-03-29] MEDS: SOD HYPOCHLORITE 1/4 STRENGTH 473 ML 1 APPLIC TOPICAL (08:26)
[2024-03-29 11:17] LABS: Glucose Point of Care 101 mg/dl (65-105)
--- NOTE | 2024-03-29 11:48 | P.DS_ITS ---
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 Wounds: General surgery has seen, plans for wound care management have been faxed to [facility]. Atrial fibrillation with elevated INR: Markedly elevated at 14. High risk of bleeding, chronic anemia, would consider this as having failed warfarin therapy d/t safety concerns. Will start eliquis 5mg BID. Urinary retention: > one liter of retention with lopez placed. Will start flomax today, recommend urology f/u in the next 2 weeks for consideration of voiding trial. COVID: Not oxygen requiring, nearly asymptomatic. Positive on 03/24/24. Cont. isolation precautions. If hypoxia, return for evaluation and additional management. Small bump in LFT, likely from infection. Will need to trend. Citrobacter/Staph Bacteremia: Will receive 8 more days of IV ceftriaxone. DS: Summary Hospital Course Reason for hospitalization: Bilateral foot wounds, supratherapeutic INR, staph/citrobacter bacteremia. Hospital Course: Erwin Isaac is a 74 year old male presenting with bilateral heel wounds and sacral wounds and a remarkably high INR from his nursing facility. He was given vitamin k and his warfarin was managed - his INR still remains labile and I have started a doac for his safety. In regards to his wounds, general surgeon does not feel any specific surgical intervention is currently needed, but wound care recommendations are in place and faxed to facility. Additionally a bloodstream infection with staph is noted, cultures positive on 03/19 and 03/21, negative on 03/24/24. There was citrobacter (ceftriaxone sensitive) additionally on 1 of 4 cultures. He will need 8 more days of therapy to complete his course. Echo is unremarkable. Wounds possible source. Erwin was also retaining urine, a catheter is in place and urology f/u is recommended. Erwin was diagnosed with covid on 03/24 and has remained asymptomatic. He has been doing well for the last several days. He will be discharging to his facility for further care for his wounds, and to receive IV abx. He is nondistressed and denies new complaints or concerns. Status at Discharge Cognitive/behavioral status at discharge: Pleasant, conversant, baseline mentation. Overall status at discharge: patient is back to baseline Time Spent with Patient Time attestation: Total time spent providing and/or coordinating discharge services: Time spent: Greater than 30 minutes Exam Narrative: GENERAL APPEARANCE: Appears to be in no acute distress. HEAD: normocephalic atraumatic EYES: PERRL, EOMI. Vision grossly intact. ENT: Hearing grossly intact, no nasal discharge NECK: Neck supple, trachea midline. CARDIAC: Normal S1/S2. Rhythm is regular. No murmurs, rubs, or gallops. No cyanosis or pallor. Extremities are warm and well perfused. LUNGS: Clear to auscultation without rales, rhonchi, wheezing. Bilaterally diminished breath sounds. Respirations even and unlabored. ABDOMEN: BS positive x 4 quadrants. Obese. Soft, nondistended, nontender. No guarding or rebound. MSK: No joint tenderness/swelling. PERIPHERAL VASCULAR: Peripheral pulses palpable. Normal perfusion, cap refill <2 seconds. NEURO: Follows commands. No focal deficits. SKIN: Dressings to b/l feet are clean and dry without drainage. PSYCH: Stable, no paranoia or delusional thinking. DS: Data Data Completed and Pending Labs on day of discharge: Labs from last 24 hours 03/29/24 03/29/24 03/29/24 11:14 07:42 06:37 WBC RBC Hgb Hct MCV MCH MCHC RDW Plt Count MPV Immature Gran % (Auto) Neut % (Auto) Lymph % (Auto) [place] % (Auto) Eos % (Auto) Baso % (Auto) Lymph # (Auto) [place] # (Auto) Eos # (Auto) Baso # (Auto) Abs Immat Gran (auto) Absolute Neuts (auto) Absolute Nucleated RBC Nucleated RBC % PT INR Sodium 136 L Potassium 3.2 L Chloride 107 Carbon Dioxide 31 H Anion Gap -2 L BUN 23 H Creatinine 1.40 H Estim Creat Clear Calc 63 Estimated GFR 50 L Glucose 94 POC Capillary Glucose 101 100 Calcium 8.1 L Total Bilirubin 0.6 AST 92 H ALT 78 H Alkaline Phosphatase 218 H Total Protein 6.0 L Albumin 2.4 L 03/29/24 03/28/24 03/28/24 06:36 19:43 16:43 WBC 11.0 H RBC 2.56 L Hgb 7.8 L Hct 24.6 L MCV 96.1 MCH 30.5 MCHC 31.7 L RDW 17.2 H Plt Count 288 MPV 10.1 Immature Gran % (Auto) 2.0 H Neut % (Auto) 78.2 H Lymph % (Auto) 12.9 L [place] % (Auto) 5.9 Eos % (Auto) 0.7 Baso % (Auto) 0.3 Lymph # (Auto) 1.41 [place] # (Auto) 0.7 H Eos # (Auto) 0.1 Baso # (Auto) 0.0 Abs Immat Gran (auto) 0.22 H Absolute Neuts (auto) 8.6 H Absolute Nucleated RBC 0.000 Nucleated RBC % 0.0 PT 29.8 H INR 2.8 Sodium Potassium Chloride Carbon Dioxide Anion Gap BUN Creatinine Estim Creat Clear Calc Estimated GFR Glucose POC Capillary Glucose 112 H 121 H Calcium Total Bilirubin AST ALT Alkaline Phosphatase Total Protein Albumin 03/28/24 11:51 WBC RBC Hgb Hct MCV MCH MCHC RDW Plt Count MPV Immature Gran % (Auto) Neut % (Auto) Lymph % (Auto) [place] % (Auto) Eos % (Auto) Baso % (Auto) Lymph # (Auto) [place] # (Auto) Eos # (Auto) Baso # (Auto) Abs Immat Gran (auto) Absolute Neuts (auto) Absolute Nucleated RBC Nucleated RBC % PT INR Sodium Potassium Chloride Carbon Dioxide Anion Gap BUN Creatinine Estim Creat Clear Calc Estimated GFR Glucose POC Capillary Glucose 140 H Calcium Total Bilirubin AST ALT Alkaline Phosphatase Total Protein Albumin Preliminary micro results at discharge 03/24/24 10:47 Blood Culture - Preliminary Blood 03/24/24 10:49 Blood Culture - Preliminary Blood Discharge Plan Discharge Attending physician on discharge: Sanjay Goodrich Consulting providers: Anthony Sumner; Ro Carr; Colt Hayden Discharging Clinician: Colt Hayden Anticipated Discharge Date/Time: 03/29/24 13:55 Patient Disposition: SNF Activity: unlimited and as tolerated Diet: diabetic Wound Care Instructions: follow printed instructions and other - see discharge instructions Discharge Instructions: - Follow up with your primary care provider in the next 1-2 weeks. - Take all medications as prescribed. - If anything other than steady improvement please contact your PCP or seek evaluation urgently. - Please follow all discharge directions as written, call for any questions or need for clarification. - Thank you for choosing [facility] for your healthcare needs Wound Care: - To bilateral feet: Continue 0.25% Dakin solution, ABD, Kerlix wrap. Important to continue waffle boots so no further pressure injury occurs. - To sacrum: Continue silver gel and dressing changes. Air mattress. Patient Instructions: Pain Management in Older Adults (DC), Non-pharmacological Pain Management Therapies for Adults (GEN) Patient Language: Vietnamese Stand Alone Forms: General Discharge Information, Retirement Discharge Follow-up/Referrals: Erwin Gardner MD [Primary Care Provider] - 1 Week (Chronic wound management, atrial fib now on eliquis. Staph bacteremia final dose IV abx 04/06/24.) Discharge Medications: New ceftriaxone 2 gram Recon Soln 2 g IV Q24H Qty: 8 0RF Rx Instructions: 2grams IV daily with last dose 04/06/2024. tamsulosin 0.4 mg Capsule 0.4 mg PO QAM Qty: 30 0RF Dakin's Solution 0.125 % Solution 1 applic topical Q12HR Qty: 473 0RF Rx Instructions: Per wound care instructions. ferrous sulfate 325 mg (65 mg iron) Tablet,Delayed Release (Dr/Ec) 325 mg PO .q48 Qty: 14 0RF Eliquis 5 mg Tablet 5 mg PO Q12HR Qty: 60 0RF Continued cholecalciferol (vitamin D3) 1,250 mcg (50,000 unit) tablet 1,250 mcg PO WEEKLY Qty: 14 2RF Rx Instructions: pt takes on Mondays Humulin R U-500 (Conc) Kwikpen 500 unit/mL (3 mL) insulin pen 40 unit subcut DAILY Patient Comments: before breakfast Gvoke HypoPen 2-Pack 1 mg/0.2 mL auto-injector 1 mg subcut ONCE Qty: 0.4 4RF Rx Instructions: may repeat once after 15 minutes if no response fenofibrate 54 mg tablet 54 mg PO DAILY carvedilol 25 mg Tablet 12.5 mg PO BID Qty: 60 0RF furosemide 80 mg tablet 40 mg PO DAILY Qty: 15 0RF losartan 50 mg Tablet 50 mg PO DAILY spironolactone 50 mg Tablet 50 mg PO DAILY potassium chloride 20 mEq Tablet Extended Release 20 meq PO DAILY semaglutide 1 mg/dose (2 mg/1.5 mL) Pen Injector 1 mg SUBCUT WEEKLY Rx Instructions: takes on Mondays (DME) FreeStyle [place] 2 Sensor Kit See Rx Instructions .ROUTE .COMPLEX Qty: 2 6RF Dose Instruction: DIRECTED TO CHECK BLOOD SUGARS 3 TIMES Rx Instructions: DIRECTED TO CHECK BLOOD SUGARS 3 TIMES (DME) pen needle, diabetic [BD Lona 2nd Gen Pen Needle] 32 gauge x 5/32 needle See Rx Instructions .ROUTE .COMPLEX Qty: 200 1RF Dose Instruction: USE TWICE DAILY Rx Instructions: USE TWICE DAILY atorvastatin 80 mg tablet 80 mg PO DAILY Qty: 90 1RF Discontinued warfarin 5 mg tablet 2.5 mg PO DAILY Qty: 15 0RF Patient Comments: pt states he takes 1/2 tab on , , Sat, and Sun; 1 tablet on Monday, Mon, Monday Other Ambulatory Orders: Complete Blood Count no Diff (Routine) Timeframe: 1 Week Location: Determined by Patient Ordered By: Colt Hayden Comprehensive Metabolic Panel (Routine) Timeframe: 1 Week Location: Determined by Patient Ordered By: Colt Hayden Date of admission: 03/21/24 09:41 Primary Care Provider: Erwin Gardner Admitting Provider: Sanjay Goodrich Attending physician on admission: Gail Rothman Condition: Serious Care Plan Goals: - Promote functional independence, improve muscle strength. - Management of wounds. - Maintain anticoagulation safely.
[2024-03-29] MEDS: LIDOCAINE 1% LOCAL INJ 2 ML AMPUL 5 ML INFILTRATE (13:10)
[2024-03-29 13:49] VITALS: BP 123/56; PULSE 78; RESP 20; TEMP 36.5; O2SAT 98
[2024-03-29] MEDS: TAMSULOSIN HCL 0.4 MG CAPSULE PO (14:17)
[2024-03-29] MEDS: BENZOCAINE/MENTHOL (*BKC) 18 EA LOZENGE 1 LOZENGE PO (14:54)
[2024-03-29] MEDS: cefTRIAXone 2 GM/NS 100 ML 2 GM/100 ML BAG IVPB (14:59)
[2024-03-29 16:25] LABS: Glucose Point of Care 100 mg/dl (65-105)
== END 2024-03-29 17:43 | DRG 637 ==
LOC: ANHED 12:10 → ANH3MEDSUR 15:34
PROVIDERS: Nurse Practitioner; Nurse Practitioner Family; Physician Assistant; Student in an Organized Health Care Education/Training Program; Admitting Provider Internal Medicine; Emergency Provider Emergency Medicine; PCP Emergency Medicine; Visit Provider Nurse Practitioner Family
DX: E11.628 Type 2 diabetes mellitus with other skin complications (principal); L89.153 Pressure ulcer of sacral region, stage 3; U07.1 COVID-19; L03.116 Cellulitis of left lower limb; R78.81 Bacteremia; I42.8 Other cardiomyopathies; I48.20 Chronic atrial fibrillation, unspecified; K86.2 Cyst of pancreas; L89.620 Pressure ulcer of left heel, unstageable; L89.610 Pressure ulcer of right heel, unstageable; I12.9 Hypertensive chronic kidney disease with stage 1 through stage 4 chronic kidney disease, or unspecified chronic kidney disease; I87.2 Venous insufficiency (chronic) (peripheral); N17.9 Acute kidney failure, unspecified; N18.4 Chronic kidney disease, stage 4 (severe); E11.621 Type 2 diabetes mellitus with foot ulcer; E11.22 Type 2 diabetes mellitus with diabetic chronic kidney disease; E11.40 Type 2 diabetes mellitus with diabetic neuropathy, unspecified; B95.61 Methicillin susceptible Staphylococcus aureus infection as the cause of diseases classified elsewhere; E55.9 Vitamin D deficiency, unspecified; E87.5 Hyperkalemia; E78.2 Mixed hyperlipidemia; R33.9 Retention of urine, unspecified; J45.909 Unspecified asthma, uncomplicated; Z79.01 Long term (current) use of anticoagulants; Z86.0101 Personal history of adenomatous and serrated colon polyps; Z79.4 Long term (current) use of insulin
CPT/HCPCS: 36415; 36430; 36569; 71045; 71275; 73620; 73650; 74177; 76705; 80048; 80053; 80076; 80202; 81001; 82274; 82550; 82607; 82728; 82746; 82948; 83540; 83550; 83735; 84134; 84443; 85014; 85018; 85025; 85027; 85610; 85730; 86850; 86900; 86901; 86923; 87040; 87086; 87181; 87186; 87635; 87641; 93306; 93971; 96361; 96365; 96366; 96367; 96375; 96376; 97110; 97162; 97166; 97530; 99213; 99285; A9270; C1751; G0378; G0463; J0692; J0696; J1756; J1815; J1836; J2003; J2470; J3370; J7030; J7050; P9016; Q9967

== ENCOUNTER 2024-04-08 18:44 | Emergency (ER) | payer OTHER, SELFPAY ==
[2024-04-08] VITALS (7 sets, daily range): BP systolic 92–115; BP diastolic 30–91; PULSE 102–115; RESP 21–28; TEMP 36.5–36.8; O2SAT 95–98
--- NOTE | ~2024-04-08 | CT_ITS ---
CLINICAL INDICATION: Abdominal pain and sepsis COMPARISON: 03/25/2024. TECHNIQUE: Multiple contiguous axial images of the abdomen and pelvis were performed following the ad ministration of with 100 mL Omnipaque-350 intravenous contrast The dose-length product (DLP) was 1913.82 mGy-cm. Automated exposure control and iterative reconstruction technique were employed. FINDINGS/OBSERVATIONS: Visualized lower thorax: Moderate bilateral pleural effusions with adjacent consolidation, largely unchanged from previous exa mination. The heart is enlarged, without pericardial effusion. Small hiatal hernia is present. Liver: The liver enhances homogeneously and is enlarged measuring 21 cm in longitudinal dimension. Gallbladder and biliary system: A single calcified stone is identified within the gallbladder which is largely decompressed and other farrar unremarkable. Pancreas: Redemonstration of a well-circumscribed focus of decreased attenuation within the body of the pancrea s measuring 10.5 mm. The remainder of the pancreas otherwise enhances homogeneously without ductal dilatation. Spleen: A 2 cm splenule is identified adjacent to the anterior limb of the left adrenal gland, unchanged. The spleen (and splenule) enhance homogeneously and the spleen is not enlarged measuring 8 cm in long itudinal dimension. Kidneys: A 22 x 19 mm well-circumscribed focus of fluid attenuation is identified exophytic from the interpola r region of the right kidney, unchanged from prior. The remainder of the bilateral kidneys otherwise enhance symmetrically without hydronephrosis or gissell l calculi. Adrenal glands: Unremarkable. Gastrointestinal tract: Within the perineum, originating to the right of midline is a fluid and air filled focus of decreased attenuation which extends posteriorly and to the right of midline with further extension cranially t o the level of S1 (along the fascial planes), worrisome for necrotizing fasciitis. The largest pocket measures 7.2 x 5.2 x 17 cm (anterior to posterior x medial to lateral x cranial to caudal dimension) . Alternatively, this may represent a small enterocutaneous fistula (less likely), as the caudal-most f ocus is adjacent to the rectum. Appendix: The air-filled appendix is of normal caliber (axial series, images 128 through 133). Vasculature: Unremarkable. No aneurysmal dilatation or significant stenosis. Lymph nodes: No pathologically enlarged or morphologically suspicious lymph nodes within the retroperitoneum or at the root of the mesentery. Pelvic structures: The bladder is minimally distended with markedly thickened mcclure, minimally decompressed with a Ahmadi catheter, further limiting its evaluation. The prostate gland is minimally enlarged.0 Body wall and musculoskeletal: Moderate anasarca is present. Please see details within the GI tract subheading regarding abnormality within the posterior soft tis sues of perineum and pelvis. Trace degenerative disease within the lumbosacral spine. IMPRESSION: Findings within the perineum extending posteriorly and cranially which are worrisome for possible nec rotizing fasciitis given its appearance and pattern of spread. These findings were discussed with Dr. Stephens at 9:30 PM on 04/08/2024 Innumerable nonacute findings, including cholelithiasis, hepatomegaly, and indeterminate focus of dec reased attenuation within the body of the pancreas for which nonemergent follow-up is recommended wit h pancreatic mass protocol evaluation (CT or MRI). In addition, moderate bilateral pleural effusions with adjacent consolidation, largely unchanged from 03/25/2024. Reviewed, dictated and finalized at location A. BALLER IMPRESSION: Findings within the perineum extending posteriorly and cranially which are worr isome for possible necrotizing fasciitis given its appearance and pattern of sp read. These findings were discussed with Dr. Stephens at 9:30 PM on 04/08/2024 Innumerable nonacute findings, including cholelithiasis, hepatomegaly, and inde terminate focus of decreased attenuation within the body of the pancreas for wh ich nonemergent follow-up is recommended with pancreatic mass protocol evaluati on (CT or MRI). In addition, moderate bilateral pleural effusions with adjacent consolidation, largely unchanged from 03/25/2024.
--- NOTE | ~2024-04-08 | XR_ITS ---
CHEST RADIOGRAPH CLINICAL HISTORY: sepsis . COMPARISON: 03/25/2024 TECHNIQUE: Single portable view of the chest. FINDINGS The cardiomediastinal silhouette is partially obscured. Hazy opacification of the left hemidiaphragm for which a left-sided pleural effusion is suspected. Increased interstitial markings are identified bilaterally, findings suggesting mild pulmonary vascul ar congestion. Calcified granuloma within the right upper lobe. The lungs are otherwise clear. IMPRESSION: Left pleural effusion with mild pulmonary vascular congestion. Reviewed, dictated and finalized at location A. SETTER SUPERVISOR
--- NOTE | ~2024-04-08 | XR_ITS ---
CHEST RADIOGRAPH CLINICAL HISTORY: CENTRAL LINE PLACEMENT . COMPARISON: 04/08/2024, 4 hours earlier TECHNIQUE: Single portable view of the chest. FINDINGS Interval placement of a right internal jugular central venous catheter with tip projecting over the c avoatrial junction. The remainder of the cardiomediastinal silhouette is otherwise unremarkable. Hazy and dense opacification of the left hemidiaphragm suggesting a left-sided pleural effusion with adjacent compressive atelectasis/consolidation. The right lung on plain film evaluation is clear. IMPRESSION: Right internal jugular central venous catheter in excellent position and ready for immediate use. Remainder of examination is largely unchanged from previous study performed 4 hours earlier. Reviewed, dictated and finalized at location A. PATIAL ENGINEER IMPRESSION: Right internal jugular central venous catheter in excellent position and ready for immediate use. Remainder of examination is largely unchanged from previous study performed 4 h ours earlier.
--- NOTE | 2024-04-08 19:33 | ED.WEAKNESS ---
HPI - Weakness General Chief complaint: Weakness Stated complaint: SICK CASE Time Seen by Provider: 04/08/24 18:58 History of Present Illness HPI Narrative: 74-year-old male with past medical history including CKD, diabetes, hyperlipidemia, atrial fibrillation on Eliquis, chronic ulcerations of his feet and sacrum. Patient presents from his skilled nurse facility for concerns of generalized weakness. Patient is very poor historian and is difficult to ascertain salient details of why he is here. He states he is concerned that he is septic, feeling generalized weakness and pain especially in his abdomen and flank. He said he finished a course of IV antibiotics and does have a previous midline still in his left upper extremity. His wounds appear well cared for any does have dressings appear fresh changed over bilateral heels and sacrum. He is brought back to room 5 for medical evaluation and treatment at this time. Patient denies any fever, chills, chest pain, shortness a breath, nausea or vomiting. He has an indwelling Ahmadi catheter. Related Data Allergies Allergy/AdvReac Type Severity Reaction Status Date / Time No Known Allergies Allergy Verified 04/08/24 19:44 Review of Systems Review of Systems: As reviewed above in HPI Exam Narrative: GENERAL: Chronically ill-appearing, morbidly obese, not in any acute distress HEAD: [Normocephalic, atraumatic.] EYES: [PERRLA and EOMI.] ENT: Nares clear, no rhinorrhea or epistaxis. Mucous membranes moist. NECK: Supple. CHEST: Some coarse breath sounds but difficult to auscultate secondary to body habitus, mild tachypnea, no wheezing HEART: [Regular rate and rhythm]. No murmur heard. [Normal peripheral pulses.] ABDOMEN: Protuberant and obese, tender to palpation right lower quadrant, [No rigidity or guarding] EXTREMITIES: Edematous bilateral lower extremities from the knees down, heels appear to be ulcerated chronic appearing dry necrotic lesion especially over the left lateral aspect of the midfoot, posterior heels bilaterally. Necrotic chronic appearing sacral decubitus ulcer, stage III-4. Surrounding area of some fresh bleeding but no purulence or any signs of infection SKIN: Wounds as described above NEURO: [No focal deficits]. Alert and oriented [x3.] PSYCH: [Normal mood and affect.] Course Vital Signs Vital signs: Vital Signs Temperature 36.6 C 04/08/24 18:47 Pulse Rate 102 H 04/08/24 18:47 Respiratory Rate 21 H 04/08/24 18:47 Blood Pressure 115/91 H 04/08/24 18:47 Pulse Oximetry 96 04/08/24 18:47 Oxygen Delivery Room Air 04/08/24 18:47 Temperature 36.7 C 04/08/24 22:50 Pulse Rate 108 H 04/08/24 22:50 Respiratory Rate 28 H 04/08/24 22:50 Blood Pressure 100/47 L 04/08/24 22:50 Pulse Oximetry 97 04/08/24 22:50 Oxygen Delivery Room Air 04/08/24 20:34 Procedures Central Line Placement Right IJ: Central Line Date: 04/08/24 Central Line Time: 23:01 Discussed w/ the patient/family/POA,the placement of a central venous catheter, including its clinical necessity/indication & associated potential risks, benifits and alternatives.: Yes The patient/family/POA understand(s) and acknowledge(s) the need to proceed with central venous catheter insertion as an important element of the patient's clinical management.: Yes Time Out Performed: Yes Patient Placed on Monitor/Pulse Ox: Yes Max. Sterile Barrier Technique: Caps, large sterile sheet and hand hygiene Central Line Prep: 2% chlorhexidine scrub and sterile drapes applied Technique: US-Guided Local Anesthetic: lidocaine 1% Amount of anesthesia used (mL): 3 Ultrasound Used for Placement: Yes Central Line Lumen Inserted: triple Post Procedure: sutured in place, good blood return, all ports aspirated, flushed, capped and sterile dressing applied Post Procedure X-Ray: tip of catheter in good position and no pneumothorax seen Patient Tolerated Procedure: well and no complications Complications: none MDM - Weakness MDM Narrative Medical decision making narrative: 74-year-old male [facility] for concerns of generalized weakness and potential sepsis. Patient was recently discharged from the hospital on 03/29 for diabetic foot wounds. He has completed course of IV antibiotics through his left upper extremity midline since previous admission. He has a history of CKD, diabetes, atrial fibrillation on Eliquis, hyperlipidemia and chronic wounds in his feet and sacrum. Patient is noted to be hypotensive with a blood pressure 92/40 and tachycardic with a heart rate 110-120. He is tachypneic with respiratory rate of 22. No hypoxia he is saturating well on room air without any fever. Patient does appear chronically ill but not in any acute distress. He is morbidly obese with a 3+ edema to his legs and chronic appearing dry necrotic wounds of his left foot in bilateral heels as well as a dry necrotic wound to his sacrum. No obvious overt overlying skin changes concerning for an infectious process. His abdomen is tender and protuberant with focal tenderness in the right lower quadrant. Coarse breath sounds but difficult to ascertain secondary to body habitus. Suspicion presently is for potential septic source even though he did complete a course IV antibiotics recently for his foot wounds. His abdominal pain and tenderness 2.0 potential intra-abdominal process such as appendicitis or abscess formation. His wounds appear chronic and not clinically infected but not to say that he does not have bacteremia from them. His left upper extremity midline appears clean without any overlying skin changes, swelling or any present suspicion for infected line. IV was established by nursing staff, blood cultures were drawn, he was given 2 L of LR which is below the 30 cc/kg bolus although he has a history of cardiomyopathy and left to hydrate him judiciously and re-evaluated frequently. He was started on vancomycin cefepime, CBC, CMP, chest x-ray, CT abdomen pelvis was ordered. Urinalysis will be obtained. Patient was re-evaluated frequently and had some clinical improvement after fluids. He is still tachycardic with a heart rate in the 1 100s, blood pressure in the soft range of 90-100 systolic. Patient stated he felt improved after antibiotics. Workup shows a leukocytosis of 21.1, hemoglobin 7.9 with no baseline based on our EMR. Regulation slightly prolonged, electrolyte panel shows a BUN of 35 and creatinine 1.39, normal electrolyte profile, lactic acid of 2.2, CMP was some slight elevations. Albumin low at 2.4. Urinalysis with florid signs of a potential infection with white blood cells, leukocyte esterase and some bacteria as well as yeast. COVID fluid RSV swab negative. Chest x-ray shows a left-sided pleural effusion. No new infiltrates. The attending radiologist Dr. Franco had called me emergently with concerns of the CT findings of his abdomen and pelvis with concern for necrotizing fasciitis. There is findings within the perineum extending posteriorly and cranially with gaseous forming material and abscess formation measuring approximately 7 x 5 x 17 cm at its maximum dimension. Patient's clinical picture does fit necrotizing fasciitis and patient will require emergent transfer to a higher level of care center as we were not able to handle this level of surgical emergency in this hospital based on previous conversations with the surgical team. I spoke to the [facility] transfer center and made them aware of the time critical diagnosis and need for transfer to their facility for definitive surgical intervention. I added clindamycin for gas-forming bacteria coverage to his regimen as well as additional fluid resuscitation. Patient was made aware of the critical nature of his diagnosis and need for transfer. He is agreeable to transfer this time. Attempted to transfer the patient via air ambulance based on whether patterns and delay in ground transport however he is too large for the helicopter and the team has come to evaluate him in agree that he would not fit in their equipment. Ground transportation be arranged. Awaiting call back from surgical team at [facility]. Spoke to the transfer center and I was made aware that the ICU surgeon has accepted the patient for emergent transfer to the ED at their facility. Spoke to the ED attending Dr. Rush and we went over patient's imaging studies, clinical assessment, plan of care and need for emergent OR. A tender the patient has an ED 2 ED transfer at this time. Arranging ambulance transfer at this time and was able to contact another helicopter service who will take the patient. JIMMYALA paperwork filled out. While awaiting patient transportation patient did have several episodes of transient hypotension with pressures in the 80s to 90 systolic. At this time central venous access will be needed to continue fluid resuscitation and if needed vasopressor medications given that he is on multiple antibiotics and has already gotten several rounds of fluids. Patient verbally consented and a right IJ was placed with ultrasound guidance. Postprocedure chest x-ray was obtained and I independently reviewed the film, no pneumothorax was seen, identified positional placement of the right IJ without complication within the SVC. Patient tolerated the procedure well and there are no appreciable complications. Re-evaluations with blood pressure show improvement to the low 100s with maps above 65. Will hold off on vasopressor medications at this time but have access ready. Maintenance IV fluids started. Air ambulance evac arriving soon. Lab Data 04/08/24 19:50 04/08/24 19:50 Labs: Lab Results 04/08/24 Range/Units 19:50 WBC 21.1 H (4.5-10.0) K/mm3 RBC 2.61 L (4.6-6.20) M/mm3 Hgb 7.9 L (14.0-18.0) g/dL Hct 24.3 L (42.0-52.0) % MCV 93.1 (80-100) fl MCH 30.3 (26-34) pg MCHC 32.5 (32-36) g/dl RDW 17.8 H (11.5-14.5) % Plt Count 303 (150-375) k/mm3 MPV 9.8 (7.4-10.4) fl Immature Gran % (Auto) Not Reportable Neut % (Auto) Not Reportable Lymph % (Auto) Not Reportable [place] % (Auto) Not Reportable Eos % (Auto) Not Reportable Baso % (Auto) Not Reportable Lymph # (Auto) Not Reportable [place] # (Auto) Not Reportable Eos # (Auto) Not Reportable Baso # (Auto) Not Reportable Abs Immat Gran (auto) Not Reportable Absolute Neuts (auto) Not Reportable Absolute Nucleated RBC Not Reportable Total Counted 100 Neutrophils % (Manual) 83 H (46-73) % Band Neutrophils % 7 H (0-6) % Lymphocytes % (Manual) 8.0 L (18-44) % Monocytes % (Manual) 2 L (3-9) % Nucleated RBC % Not Reportable Abs Neuts (Manual) 18.99 H (1.3-6.7) K/mm3 Abs Lymphs (Manual) 1.68 (1.1-4.5) K/mm3 Abs Monocytes (Manual) 0.42 (0.1-0.90) K/mm3 Platelet Estimate Adequate (Adequate) Anisocytosis 2+ Schistocytes None seen PT 25.7 H (11.1-14.7) Seconds INR 2.3 APTT 43.3 H (22.3-36.8) Seconds Sodium 133 L (137-145) mmol/L Potassium 4.2 (3.4-5.0) mmol/L Chloride 99 (98-107) mmol/L Carbon Dioxide 30 (22-30) mmol/L Anion Gap 4 (4-12) mmol/L BUN 35 H (9-20) mg/dL Creatinine 1.39 H (0.7-1.3) mg/dL Estim Creat Clear Calc Not Reportable Estimated GFR 50 L (59 - ) Glucose 91 (65-110) mg/dL Lactic Acid 2.2 H (0.7-2.0) mmol/L Calcium 8.5 (8.4-10.2) mg/dL Total Bilirubin 1.0 (0.2-1.3) mg/dL AST 47 (17-59) U/L ALT 67 H (6-50) U/L Alkaline Phosphatase 419 H (38-126) U/L C-Reactive Protein 16.1 H (<1.0) mg/dL Total Protein 7.0 (6.3-8.2) g/dL Albumin 2.4 L (3.5-5.1) g/dL Urine Color Yellow (Yellow) Urine Appearance Cloudy H (Clear) Urine pH 5.0 (5.0-9.0) Ur Specific [place] 1.016 (1.001-1.035) Urine Protein 1+ H (Negative) mg/dL Urine Glucose (UA) Negative (Negative) mg/dL Urine Ketones Negative (Negative) mg/dL Ur Blood (Man) 1+ H (Negative) Urine Nitrate Negative (Negative) Urine Bilirubin Negative (Negative) Urine Urobilinogen 1.0 (<2.0) mg/dL Leukocyte Esterase Rfl 3+ H (Negative) ALBERTO/UL Urine RBC 21-50 H (0-2) /hpf Urine WBC >100 H (0-3) /hpf Ur Squamous Epith Cells None seen (Few) /hpf Urine Bacteria None seen /hpf Urine Casts 11-20 Urine Yeast (Budding) Present H (None) /hpf Influenza A (RT-PCR) Negative (Negative) Influenza B (RT-PCR) Negative (Negative) RSV (RT-PCR) Negative (Negative) SARS-CoV-2 RNA (RT-PCR) Negative (Negative) Critical Care Time Critical Care Time Critical Care Time: Yes Total Critical Care Time: 120 Discharge Plan Discharge Clinical Impression: Necrotizing fasciitis, Severe sepsis Patient Disposition: Acute Care Hospital Condition: Critical Patient Language: Swedish Follow-up/Referrals: Erwin Gardner MD [Primary Care Provider] -
[2024-04-08] MEDS: LACTATED RINGERS 1,000 ML 999 ML IV CONT ×3 (19:50→21:47)
[2024-04-08] MEDS: CEFEPIME 2 GM/NS 50 ML 2 GM/50 ML BAG IVPB (19:54)
[2024-04-08 20:01] LABS: Hematocrit 24.3 % (42.0-52.0); Hemoglobin 7.9 g/dL (14.0-18.0); Mean Corpuscular HGB Conc 32.5 g/dl (32-36); Mean Corpuscular Hemoglobin 30.3 pg (26-34); Mean Corpuscular Volume 93.1 fl (80-100); Mean Platelet Volume 9.8 fl (7.4-10.4); Platelet Count Result 303 k/mm3 (150-375); Red Blood Count 2.61 M/mm3 (4.6-6.20); Red Cell Distribution Width 17.8 % (11.5-14.5); White Blood Count 21.1 K/mm3 (4.5-10.0)
[2024-04-08 20:12] LABS: Lactic Acid Reflex 2.2 mmol/L (0.7-2.0)
[2024-04-08 20:15] LABS: Alanine Aminotransferase 67 U/L (6-50); Albumin Level 2.4 g/dL (3.5-5.1); Alkaline Phosphatase 419 U/L (38-126); Anion Gap 4 mmol/L (4-12); Aspartate Amino Transferase 47 U/L (17-59); Blood Urea Nitrogen 35 mg/dL (9-20); Calcium 8.5 mg/dL (8.4-10.2); Carbon Dioxide 30 mmol/L (22-30); Chloride 99 mmol/L (98-107); Estimated Glomerular Filt Rate 50; Glucose 91 mg/dL (65-110); Potassium 4.2 mmol/L (3.4-5.0); Sodium 133 mmol/L (137-145)
[2024-04-08 20:25] LABS: CRP 16.1 mg/dL (<1.0)
[2024-04-08 20:29] LABS: Add Urine Microscopic? YES; Appearance Urine Cloudy (Clear); Bacteria Urine None Seen /hpf; Bilirubin Urine Negative (Negative); Blood Urine 1+ (Negative); Budding Yeast Urine Present /hpf; Color Urine Yellow (Yellow); Glucose Urine UA Negative (Negative); Ketones Urine Negative (Negative); Leukocyte Esterase Ur 3+ LEU/UL (Negative); Nitrate Urine Negative (Negative); Protein Urine 1+ mg/dL (Negative); RBC Urine 21-50 /hpf (0-2); Specific Grav Ur 1.016 (1.001-1.035); Squamous Epithelial Cell Urine None Seen /hpf (Few); WBC Urine >100 /hpf (0-3)
[2024-04-08 20:38] LABS: Influenza A QL RT-PCR Negative (Negative); Influenza B QL RT-PCR Negative (Negative); RSV RNA, RT-PCR Negative (Negative); SARS-CoV-2 RNA PCR Negative (Negative)
[2024-04-08 20:40] LABS: Band Neutrophils Percent 7 % (0-6); Lymphocytes Absolute Manual 1.68 K/mm3 (1.1-4.5); Monocytes Absolute Manual 0.42 K/mm3 (0.1-0.90); Monocytes Percent Manual 2 % (3-9); Neutrophils Absolute Manual 18.99 K/mm3 (1.3-6.7); Neutrophils Percent Manual 83 % (46-73); Platelet Estimate Adequate (Adequate); Schistocytes None Seen; Total Cells Counted 100
[2024-04-08 20:41] LABS: Anisocytosis 2+
[2024-04-08 20:48] LABS: INR 2.3; Prothrombin Time 25.7 Seconds (11.1-14.7)
[2024-04-08 20:49] LABS: Partial Thromboplastin Time 43.3 Seconds (22.3-36.8)
[2024-04-08] MEDS: VANCOMYCIN 1,250 MG/NS 250 ML 1,250 MG/250 ML BAG 166.67 MG IVPB ×2 (21:14→23:05)
[2024-04-08 22:57] LABS: Reflex Lactic Acid Yes or No Add Lactic
--- OUTSIDE RECORDS SUMMARY | 2024-04-15 05:57 | XMS_ITS | Continuity of Care Document ---
Author Organization [facility] Address [address] [place] [address] Care Team Providers Care Guest Service Aide Name Role Phone MD Erwin Gardner Attending Provider MD Elda Hare Attending Provider MD Erwin Gardner Primary Care Provider SILVIO Hawk Attending Provider SILVIO Rock Emergency Provider Care Teams Patient Care Team Team Status: Active Member Role Status Rosanna Gardner MD Primary Care Provider Active Visit Care Team Team Status: Inactive Member Role Status Rosanna Hare MD Attending Provider Active Erwin Gardner MD Referring Provider Active Visit Care Team Team Status: Inactive Member Role Status Rosanna Gardner MD Attending Provider, Referring P rovirachel Active Visit Care Team Team Status: Inactive Member Role Status Rosanna Gardner MD Attending Provider, Referring P rovider Active Visit Care Team Team Status: Inactive Member Role Status Rosanna Hawk APRN Attending Provider Active Erwin Gardner MD Referring Provider Active Visit Care Team Team Status: Inactive Member Role Status Rosanna Gardner MD Primary Care Provider Active Isabela Rock APRN Emergency Provider Active Visit Care Team Team Status: Inactive Member Role Status Rosanna Gardner MD Primary Care Provider, Attendin g Provider Active Chief Complaint and Reason for Visit Chief Complaint Sick visit (adolesce nt/adult) Diabetes Type 2 S81.809A unsp open wound, unsp lower leg Hypertension Diabetes Type 2 foot wounds Reason for Visit Cellulitis Skin lesion Skin ulceration Illness BMI greater than 40 Diabetic neuropathy Dietary counseling and surveillance Diminished pulses in lower extremity Hyperlipidemia LDL goal <100 [id number] Vitamin D deficiency Afib ASHD (arteriosclerotic heart disease) CHF (congestive heart failure) CKD (chronic kidney disease) stage 4, GFR 15-29 ml/min Diabetes mellitus Diabetic neuropathy HTN (hypertension) MGUS (monoclonal gammopathy of unknown significance) PAD (peripheral artery disease) [id number] Vitamin D deficiency BMI greater than 40 Diabetic neuropathy Dietary counseling and surveillance Diminished pulses in lower extremity Hyperlipidemia LDL goal <100 [id number] Vitamin D deficiency Allergies, Adverse Reactions, Alerts No known allergies Social History Smoking Status Status Start Date End Date Date of Observa tion Never smoked tobacco (finding) January 15, 2024 10:54am Observation Status Observation Response Date of Response Do You Feel Safe in your Home? Yes A ugust 2023 3:09pm Has Lack of Trans Kept You F rom Med Appts or Getting Meds? No November 15, 2023 3:09pm In Past 12 Months, Were You Worried Your Food Would Run Out? Never True November 15, 2023 3:09pm What is Your Housing Situati on Today? I Have Housing November 15, 2023 3:09pm Are You Worried That in Next 2 Mo, You Won't Have Housing? No November 15, 2023 3:09pm Do You Have Trouble Paying Y our Heating Or Electricity Bill? No November 15, 2023 3:09pm Do You Have Trouble Paying F or Medicines? No November 15, 2023 3:09pm Are You Currently Unemployed and Looking for Work? No November 15, 2023 3:09pm Highest Level of Education Completed High School Diploma/GED November 15, 2023 3:09pm Do You Have Trouble With Childcare/Care of a Family Member? No November 15, 2023 3 :09pm alcohol intake current November 14 3:09pm Substance use type does not use November 15, 2023 3:09pm Additional Data Assigned Sex Male Gender Identity Cisgender/Not transg te (finding) Family History Relationship Condition Age at Onset Recorded Date/T jessica father Family history of emphysema 69 Problems Active Problems Medical Problem Onset Date Status Pain of lower leg Active Basal cell carcinoma (BCC) of brow Active Lower extremity edema Active Colon cancer screening Active Diabetic neuropathy Active Osteoarthritis of knees, bilateral Active Diabetes mellitus Active Diminished pulses in lower extremity Active Dietary counseling and surveillance Active CKD (chronic kidney disease) stage 4, GFR 15-29 ml/min Active CKD (chronic kidney disease), stage III Active CHF (congestive heart failure) A ctive Anemia Active Afib Active Cellulitis Active Insulin resistance Active Venous stasis of both lower extremities Active Metabolic syndrome Active Hyperlipidemia LDL goal <100 Act greg Skin lesion Active Skin ulceration Active Claudication of both lower extremities Active Bilateral leg pain Active MGUS (monoclonal gammopathy of unknown significa nce) Active Type 2 diabetes mellitus wit h hyperglycemia, with long-term current use of insulin Active BMI greater than 30 Active BMI greater than 40 Active PAD (peripheral artery disease) Active HTN (hypertension) Active Vitamin D deficiency Active ASHD (arteriosclerotic heart disease) Active Medications Medication Status Dose Units Route Directions Qty Days St art Date End Date Instructions Warfarin Active 0 .ROUTE .COMPLEX November 22, 2019 9:53am Take 1 tablet mon, monday,. Take 1/2 tablet monday,, ,monday,mon day; Cholecalcifero l (Vitamin D3) Active 1250 MCG PO WEEKLY September 14, 2023 12:00am Atorvastatin Active 80 MG PO DAILY September 14, 2023 2:57pm Insulin Regular Hum U-500 Conc (Humulin R U-500 (Conc) Maxiikpen) 500 unit/mL (3 mL) insulin pen Active 45 UNIT SUB-Q DAILY January 15, 2024 11:06am Glucagon (Gvoke Hypopen 2-Pack) 1 mg/0.2 mL auto-injector Active 1 MG SUB-Q ONCE 0.4 January 15, 2024 12:00am may repeat once after 15 minutes if no response Losartan Active 50 MG PO DAILY January 30, 2019 12:00am Carvedilol Active 25 MG PO TWICE A DAY O ctober 2018 12:00am Spironolactone Active 50 MG PO DAILY Oc tober 2018 12:00am Potassium Chloride Active 20 MEQ PO DAILY January 30, 2019 12:00am Furosemide Active 80 MG PO DIRECTED F ebruary 2023 1:00am 80MG IN AM, 40MG AT HS Semaglutide (Ozempic) 1 mg/dose (2 mg/1.5 mL) Pen Injector Active 1 MG SUB-Q WEEKLY November 01, 2023 12:00am Fenofibrate Active 0 .ROUTE .COMPLEX 90 Oct 8:25am TAKE 1 TABLET BY MOUTH EVERY DAY Flash Glucose Sensor (Freestyle Germania 2 Sensor) kit Active 0 .ROUTE .COMPLEX 2 November 24, 2023 11:06am DIRECTED TO CHECK BLOOD SUGARS 3 TIMES Pen Needle, Diabetic (Bd Lona 2nd Gen Pen Needle) 32 gauge x 5/32 needle Active 0 .ROUTE .COMPLEX December 13, 2023 3:56pm USE TWICE DAILY Immunizations Immunization Event Date Not Given Reason Dose Number [employer] Director Lot Number Vaccine Information Statement (VIS) Detail Fluzone High-Dose 65YR+ January 26, 2016 Fluzone High-Dose 65YR+ January 17, 2017 Fluzone High-Dose 65YR+ December 31, 2020 [id number] Pneumococcal Polysacc. Vaccine, 23 valent February 16, 2016 Pneumococcal Polysacc. Vaccine, 23 valent March 07, 2017 SARS-COV-2 (COVID-19) [facility] December 31, 2020 [id number] SARS-COV-2 (COVID-19) [facility] July 17, 2021 [id number] Procedures Procedure Date Performed Status Blood Culture January 22, 2024 active Relevant Diagnostic Tests and/or Laboratory Data Laboratory Results Test Date/Time Result Interpretation Reference Range Result Comment Performing Site Glucose (Fingerstick)( Clinic) September 14, 2023 2:24pm 125 Mg/dL Hemoglobin A1c November 07, 2023 7:40am 6.9 % of total Hgb Above high normal <5.7 For someone without known diabetes, a hemoglobin C0fphdor of 6.5% or greater indicates that they may have diabetes and this should be confirmed with a follow-up test. For someone with known diabetes, a value <7% indicates that their diabetes is well controlled and a value greater than or equal to 7% indicates suboptimal control. A1c targets should be individualized based on duration of diabetes, age, comorbid conditions, and other considerations. Currently, no consensus exists regarding use ofhemoglobin A1c for diagnosis of diabetes for children. This test was performed on the Macarena nathan c503 platform.Effecti ve 06/19/23, a change in test platforms from the[employer] to the Mcaarena nathan c503 may have [id number] results compared to historical results.[facility], the Macarena platform relative to the AbbottShoutOmaticform had an average increase in HbA1c value of< or = 0.3%. This difference is within accepted variability established by the National GlycohemoglobinS tandardization Program. Note that not all individualswill have had a shift in their results and directcomparison s between historical and current results fortesting conducted on different platforms is notrecommended. Vitamin D 25-Hydroxy November 07, 2023 7:40am 42 ng/mL 30-100 Vitamin D Status 25-OH Vitamin D: Deficiency: <20 ng/mLInsufficien cy: 20 - 29 ng/mLOptimal: > or = 30 ng/mL For 25-OH Vitamin D testing on patients on D2-supplementati on and patients for whom quantitation of D2 and D3 fractions is required, the QuestAssureD(TM) 25-OH VIT D, (D2,D3), LC/MS/MS is recommended: order code 22935 (patients >2yrs). See Note 1 Note 1 For additional information, please refer to http://education .DIIME/faq/EVH234 (This link is being provided for informational/ed ucational purposes only.) Prostate Specific Antigen November 07, 2023 7:40am 1.91 ng/mL < OR = 4.00 The total PSA value from this assay system is standardized against the WHO standard. The test result will be approximately 20% lower when compared to the equimolar-standa rdized total PSA (Jose Alejandro Rayshawn). Comparison of serial PSA results should be interpreted with this fact in mind. This test was performed using the Siemens chemiluminescent method. Values obtained from different assay methods cannot be usedinterchangea annette. PSA levels, regardless ofvalue, should not be interpreted as absoluteevidence of the presence or absence of disease. Glucose Level November 07, 2023 7:40am 127 mg/dL Above high normal 65-99 Fasting reference interval For someone without known diabetes, a glucosevalue >125 mg/dL indicates that they may havediabetes and this should be confirmed with afollow-up test. Triglycerides Level November 07, 2023 7:40am 108 mg/dL <150 Urine Creatinine November 07, 2023 1:19pm 72 mg/dL 20-320 Glucose (Fingerstick)( Clinic) January 15, 2024 10:49am 214 Mg/dL Blood Urea Nitrogen November 07, 2023 7:40am 29 mg/dL Above high normal 7-25 Cholesterol Level November 07, 2023 7:40am 131 mg/dL <200 Urine Random Microalbumin November 07, 2023 1:19pm 1.0 mg/dL See Note: Reference Range:Reference RangeNot established Creatinine November 07, 2023 7:40am 2.01 mg/dL Above high normal 0.70-1.28 HDL Cholesterol Direct November 07, 2023 7:40am 55 mg/dL > OR = 40 Urine Microalbumin/C reatinine Ratio November 07, 2023 1:19pm 14 mg/g creat <30 The ADA defines abnormalities in albuminexcretion as follows: Albuminuria Category Result (mg/g creatinine) Normal to Mildly increased <30Moderately increased 30-299 Severely increased > OR = 300 The ADA recommends that at least two of threespecimens collected within a 3-6 month period beabnormal before considering a patient to bewithin a diagnostic category. BUN/Creatinine Ratio November 07, 2023 7:40am 14 (calc) 6-22 LDL Cholesterol, Calculated November 07, 2023 7:40am 57 mg/dL (calc) Reference range: <100 Desirable range <100 mg/dL for primary prevention; <70 mg/dL for patients with CHD or diabetic patients with > or = 2 CHD risk factors. LDL-C is now calculated using the Olga calculation, which is a validated novel method providing better accuracy than the Friedewald equation in the estimation of LDL-C. Raffi GIFFORD et al. ESTELITA. 2013;310(19): 4324-3653 (http://educatio n.QuestDiagnosti .com/faq/FAQ16 4) Sodium Level November 07, 2023 7:40am 135 mmol/L 135-146 Cholesterol/HD L Ratio November 07, 2023 7:40am 2.4 (calc) <5.0 Potassium Level November 07, 2023 7:40am 4.0 mmol/L 3.5-5.3 Non-HDL Cholesterol November 07, 2023 7:40am 76 mg/dL (calc) <130 For patients with diabetes plus 1 major ASCVD risk factor, treating to a non-HDL-C goal of <100 mg/dL (LDL-C of <70 mg/dL) is considered a therapeutic option. Chloride Level November 07, 2023 7:40am 100 mmol/L 98-110 Carbon Dioxide Level November 07, 2023 7:40am 27 mmol/L 20-32 Calcium Level November 07, 2023 7:40am 9.2 mg/dL 8.6-10.3 Total Protein November 07, 2023 7:40am 7.0 g/dL 6.1-8.1 Albumin November 07, 2023 7:40am 4.3 g/dL 3.6-5.1 Globulin November 07, 2023 7:40am 2.7 g/dL (calc) 1.9-3.7 Albumin/Globul in Ratio November 07, 2023 7:40am 1.6 (calc) 1.0-2.5 Total Bilirubin November 07, 2023 7:40am 0.5 mg/dL 0.2-1.2 Alkaline Phosphatase November 07, 2023 7:40am 59 U/L 35-144 Aspartate Amino Transf (AST/SGOT) November 07, 2023 7:40am 19 U/L 10-35 Alanine Aminotransfera se (ALT/SGPT) November 07, 2023 7:40am 21 U/L 9-46 Estimat Glomerular Filtration Rate November 07, 2023 7:40am 34 mL/min/1. 73m2 Below low normal > OR = 60 White Blood Count January 22, 2024 12:40pm 8.4 K/mm3 4.5-10.0 [facility] [id number] [address] [place] [address] Red Blood Count January 22, 2024 12:40pm 3.62 M/mm3 Below low normal 4.6-6.20 [facility] [id number] [address] [place] [address] Hemoglobin January 22, 2024 12:40pm 11.8 g/dL Below low normal 14.0-18.0 [facility] [id number] [address] [address] Hematocrit January 22, 2024 12:40pm 35.1 % Below low normal 42.0-52.0 [facility] [id number] [address] [place] [address] Mean Corpuscular Volume January 22, 2024 12:40pm 97.0 fL 80-100 [facility] [id number] [facility] [address] [address] Mean Corpuscular Hemoglobin January 22, 2024 12:40pm 32.6 pg 26-34 [facility] [id number] [address] [address] Mean Corpuscular Hemoglobin Concent January 22, 2024 12:40pm 33.6 g/dL 32-36 [facility] [id number] [facility] [address] [address] Red Cell Distribution Width January 22, 2024 12:40pm 13.2 % 11.5-14.5 [facility] [id number] [facility] [address] [address] Platelet Count January 22, 2024 12:40pm 223 k/mm3 150-375 [facility] [id number] [facility] [address] [address] Mean Platelet Volume January 22, 2024 12:40pm 10.5 fL Above high normal 7.4-10.4 [facility] [id number] [address] [place] [address] Nucleated Red Blood Cells % January 22, 2024 12:40pm 0.0 % 0.0-0.2 [facility] [id number] [address] [address] Immature Granulocyte % (Auto) January 22, 2024 12:40pm 1.6 % Above high normal 0-0.5 [facility] [id number] [address] [address] Neutrophils (%) (Auto) January 22, 2024 12:40pm 73.2 % Above high normal 45.5-73.1 [facility] [id number] [address] [address] Lymphocytes (%) (Auto) January 22, 2024 12:40pm 12.7 % Below low normal 18.3-44.2 [facility] [id number] [address] [place] [address] Monocytes (%) (Auto) January 22, 2024 12:40pm 9.7 % Above high normal 2.6-8.5 [facility] [id number] [facility] [address] [address] Eosinophils (%) (Auto) January 22, 2024 12:40pm 2.3 % 0-4.4 [facility] [id number] [address] [place] [address] Basophils (%) (Auto) January 22, 2024 12:40pm 0.5 % 0.2-1.2 [facility] [id number] [address] [place] [address] Nucleated RBC Absolute Count (auto) January 22, 2024 12:40pm 0.000 K/mm3 0.0-0.012 [facility] [id number] [address] [place] [address] Absolute Immature Granulocyte (auto January 22, 2024 12:40pm 0.13 K/mm3 Above high normal 0.00-0.031 [facility] [id number] [address] [place] [address] Absolute Neutrophils (auto) January 22, 2024 12:40pm 6.1 K/mm3 1.3-6.7 [facility] [id number] [address] [place] [address] Lymphocytes # (Auto) January 22, 2024 12:40pm 1.06 K/mm3 0.9-3.2 [facility] [id number] [address] [place] [address] Monocytes # (Auto) January 22, 2024 12:40pm 0.8 K/mm3 Above high normal 0.1-0.6 [facility] [id number] [address] [place] [address] Eosinophils # (Auto) January 22, 2024 12:40pm 0.2 K/mm3 0-0.3 [facility] [id number] [address] [place] [address] Basophils # (Auto) January 22, 2024 12:40pm 0.0 K/mm3 0.0-0.1 [facility] [id number] [address] [place] [address] Prothrombin Time January 22, 2024 12:40pm 33.9 s Above high normal 11.1-14.7 [facility] [id number] [address] [place] [address] Prothromb Time International Ratio January 22, 2024 12:40pm 3.3 INR Indication------ --- ------0.9 - 1.1 Patients not on anticoagulant therapy.2.0 - 3.0 Routine therapy.2.5 - 3.5 Recurrent myocardial infarction or mechanical prosthetic valves. [facility] [id number] [address] [address] Activated Partial Thromboplast Time January 22, 2024 12:40pm 32.0 s 22.3-36.8 [facility] [id number] [address] [address] Urine Color January 22, 2024 3:16pm Yellow Yellow [facility] [id number] [address] [address] Urine Appearance January 22, 2024 3:16pm Clear Clear [facility] [id number] [address] [address] Urine pH January 22, 2024 3:16pm 5.0 5.0-9.0 [facility] [id number] [address] [address] Urine Specific [place] January 22, 2024 3:16pm 1.009 1.001-1.03 5 [facility] [id number] [address] [address] Urine Protein January 22, 2024 3:16pm Negative mg/dL Negative [facility] [id number] [address] [address] Urine Glucose (UA) January 22, 2024 3:16pm Negative mg/dL Negative [facility] [id number] [address] [address] Urine Ketones January 22, 2024 3:16pm Negative mg/dL Negative [facility] [id number] [address] [address] Urine Blood (Manual) January 22, 2024 3:16pm Negative Negative [facility] [id number] [address] [address] Urine Nitrate January 22, 2024 3:16pm Negative Negative [facility] [id number] [address] [address] Urine Bilirubin January 22, 2024 3:16pm Negative Negative [facility] [id number] [address] [address] Urine Urobilinogen January 22, 2024 3:16pm 0.2 mg/dL <2.0 [facility] [id number] [address] [address] Urine Leukocyte Esterase (Reflex) January 22, 2024 3:16pm Trace ALBERTO/UL Above high normal Negative [facility] [id number] [address] [address] Urine RBC January 22, 2024 3:16pm 0-2 [HPF] 0-2 [facility] [id number] [address] [address] Urine WBC January 22, 2024 3:16pm 0-5 [HPF] 0-3 [facility] [id number] [address] [address] Urine Squamous Epithelial Cells January 22, 2024 3:16pm None seen [HPF] Few [facility] [id number] [address] [address] Urine Bacteria January 22, 2024 3:16pm None seen [HPF] [facility] [id number] [address] [address] Sodium Level January 22, 2024 12:40pm 135 mmol/L Below low normal 137-145 [facility] [id number] [facility] [address] [address] Potassium Level January 22, 2024 12:40pm 4.5 mmol/L 3.4-5.0 [facility] [id number] [address] [address] Chloride Level January 22, 2024 12:40pm 96 mmol/L Below low normal 98-107 [facility] [id number] [address] [address] Carbon Dioxide Level January 22, 2024 12:40pm 30 mmol/L -30 [facility] [id number] [address] [address] Anion Gap January 22, 2024 12:40pm 9 mmol/L 4-12 [facility] [id number] [address] [address] Blood Urea Nitrogen January 22, 2024 12:40pm 29 mg/dL Above high normal 9-20 [facility] [id number] [address] [address] Creatinine January 22, 2024 12:40pm 2.30 mg/dL Above high normal 0.7-1.3 [facility] [id number] [address] [address] Estimat Glomerular Filtration Rate January 22, 2024 12:40pm 28 Below low normal >59 > OR = 60 ml/min/1.73 square metersThe MDRD formula used to calculate the eGFR result has not been validated in patients > 70 years of age. [facility] [id number] [address] [place] [address] Estimated Creatinine Clearance Calc January 22, 2024 12:40pm 39 mL/min For use in prescription drug dose determination only. Reference ranges have not been establishe for this calculation. [facility] [id number] [address] [place], [place] [address] Glucose Level January 22, 2024 12:40pm 186 mg/dL Above high normal 65-110 [facility] [id number] [address] [place], [place] [address] Lactic Acid Level January 22, 2024 12:40pm 1.8 mmol/L 0.7-2.0 [facility] [id number] [address] [place], [place] [address] Calcium Level January 22, 2024 12:40pm 9.8 mg/dL 8.4-10.2 [facility] [id number] [address] [place], [place] [address] Total Bilirubin January 22, 2024 12:40pm 0.7 mg/dL 0.2-1.3 [facility] [id number] [address] [place], [place] [address] Aspartate Amino Transf (AST/SGOT) January 22, 2024 12:40pm 25 U/L 17-59 [facility] [id number] [address] [place], [place] [address] Alanine Aminotransfera se (ALT/SGPT) January 22, 2024 12:40pm 24 U/L 6-50 [facility] [id number] [address] [place], [place] [address] Troponin I January 22, 2024 12:40pm < 0.012 ng/mL 0.000-0.03 4 Acute myocardial injury is indicated by:1. A troponin value of >0.034 ng/mL and/or2. A 20% change in troponin value.Specimens with biotin concentrations up to 2.5 ng/mL demonstrate a less than or equal to 10% change in results. Biotin concentrations greater than this falsely decrease Troponin results for patient samples. [facility] [id number] [address] [place], [place] [address] C-Reactive Protein January 22, 2024 12:40pm < 0.5 mg/dL <1.1 [facility] [id number] [address] [place] [address] VZ-Gqx-J-Type Natriuretic Peptide January 22, 2024 12:40pm 429 pg/mL Above high normal 19.9-100 Reference Range:Normal, Heart Failure unlikely: </= 300 pg/mlHigh Probablility of Heart Failure: <50 Years >/= 450 pg/ml 50-75 Years >/= 900 pg/ml >75 Years >/= 1800 pg/ml [facility] [id number] [address] [place] [address] Total Protein January 22, 2024 12:40pm 8.0 g/dL 6.3-8.2 [facility] [id number] [address] [place] [address] Albumin January 22, 2024 12:40pm 4.5 g/dL 3.5-5.1 [facility] [id number] [address] [place] [address] Alkaline Phosphatase January 22, 2024 12:40pm 68 U/L 38-126 [facility] [id number] [address] [place] [address] Urine Casts January 22, 2024 3:16pm 0-2 [facility] [id number] [address] [place] [address] Diagnostic Imaging Reports Author Charlie Ly [facility] January 22, 2024 1:13pm Report Date/Time January 22, 2024 1 :14pm [place] [id number] Ultrasound Report Signed Patient: Erwin Isaac : 1950 MR#: [id number] Age: 73 Acct:[id number] Loc: [facility] ADM Date: 01/22/[address]: Ordering Physician: Isabela Rock APRN Date of Service: 01/22/24 Procedure(s): US venous doppler LE BI Accession Number(s): [id number] cc: Erwin Gardner MD; Isabela Rock APRN~ EXAMINATION:US venous doppler LE BI INDICATION:Bilateral leg swelling TECHNIQUE: Multiple grayscale, color flow and Doppler images of the right and left lower extremity deep venous systems were obtained and reviewed. COMPARISON:No prior studies for comparison. FINDINGS: The common femoral, superficial femoral and popliteal veins demonstrate normal respiratory variation, augmentation and compressibility. Color flow is also seen within the posterior tibial, peroneal, greater saphenousand profunda veins. IMPRESSION: 1: No lower extremity deep venous thrombosis. Reviewed, dictated and finalized at location B. Dictated By: Charlie Ly MD 01/22/24 1313 Signed By: <Electronically signed by Charlie Ly MD in OV> 01/22/24 1313 Vital Signs Vital Reading Result Reference Range Collection Date/Time Height 75 [in_i] August 25, 2023 8:27am Weight 140.61 kg August 25, 2023 8:27am Body Temperature 97.1 [degF] 97.6-99.6 August 24, 2 024 8:27am Heart Rate 91 /min 60-100 August 25, 2023 8:27am Oxygen saturation by Pulse oximetry 97 % 90-100 August 25, 2023 8:27a m BP Systolic 139 mm[Hg] 100-140 August 25, 2023 8:27am BP Diastolic 67 mm[Hg] 60-90 August 25, 2023 8:27am BMI (Body Mass Index) 38.7 kg/m2 August 242023 8:27am Height 75 [in_i] September 14, 2023 2:27pm Weight 142.99 kg September 14, 2023 2:27pm Heart Rate 84 /min 60-100 September 14, 2023 2:27pm Oxygen saturation by Pulse oximetry 97 % 90-100 September 14, 2023 2:27 pm BP Systolic 118 mm[Hg] 100-140 September 14, 2023 2:27pm BP Diastolic 74 mm[Hg] 60-90 September 14, 2023 2:27pm BMI (Body Mass Index) 39.4 kg/m2 September 012023 2:27pm Height 75 [in_i] November 01, 2023 9:11am Weight 136.36 kg November 01, 2023 9:11am BMI (Body Mass Index) 37.5 kg/m2 October 032023 9:11am Height 75 [in_i] November 21, 9:39am Weight 136.67 kg November 21, 9:39am Body Temperature 97.2 [degF] 97.6-99.6 November 9:39am Heart Rate 74 /min 60-100 November 21 9:39am Oxygen saturation by Pulse oximetry 94 % 90-100 November 22, 2023 9: 39am BP Systolic 110 mm[Hg] 100-140 November 21, 9:39am BP Diastolic 60 mm[Hg] 60-90 November 21 9:39am BMI (Body Mass Index) 37.6 kg/m2 November 22, 2023 9:39am Height 75 [in_i] January 14, 2 024 10:58am Weight 134.26 kg January 14, 2 024 10:58am Heart Rate 80 /min 60-100 January 14, 2 024 10:58am BP Systolic 120 mm[Hg] 100-140 January 14, 2 024 10:58am BP Diastolic 70 mm[Hg] 60-90 January 14, 2 024 10:58am BMI (Body Mass Index) 37.0 kg/m2 r 2023 10:58am Height 75 [in_i] January 21, 2 024 10:45am Weight 134.50 kg January 21, 2 024 10:45am Body Temperature 97.6 [degF] 97.6-99.6 January 10:45am Heart Rate 69 /min 60-100 January 21, 2 024 7:02pm Respiratory rate 20 /min 12-January 7:02pm Oxygen saturation by Pulse oximetry 100 % 90-100 January 22, 2024 7 :02pm BP Systolic 112 mm[Hg] 100-140 January 21, 2 024 7:02pm BP Diastolic 62 mm[Hg] 60-90 January 21, 2 024 7:02pm Insurance Providers Guarantor Erwin Isaac Address [address] [place] [phone] Contact Info. Home Phone: Payer Policy Id Coverage Id Subscriber's Name Sub[place] [id number] Erwin Isaac [id number] 2018 Self Pay Self N/A Encounters Encounter Location(s) Arrival/Admit Date Discharge/Depart Date Provider(s) Departed Physician/Provi rachel Office Visit [facility]Erwin Gardner MD August 25, 2023 8:23am August 25, 2023 8:36am Erwin Gardner MD [facility] September 14, 2023 2:19pm September 14, 2023 3:22pm Elda Hare MD Discharged [facility] November 01, 2023 8:38am December 06, 2023 3:08pm Erwin Gardner MD Departed Physician/Provi rachel Office Visit [facility]Erwin Gardner MD November 22, 2023 9:22am November 22, 2023 10:15am Erwin Gardner MD Departed Physician/Provi rachel Office Visit [facility] January 15, 2024 10:44am January 15, 2024 11:16am Edelmira Hawk APRN Departed Emergency [facility] Emergency Department January 22, 2024 10:43am January 22, 2024 7:03pm null Recent Diagnosis Onset Date Cellulitis Skin lesion Skin ulceration Illness BMI greater than 40 Diabetic neuropathy Dietary counseling and surveillance Diminished pulses in lower extremity Hyperlipidemia LDL goal <100 [id number] Vitamin D deficiency Afib ASHD (arteriosclerotic heart disease) CHF (congestive heart failure) CKD (chronic kidney disease) stage 4, GF R 15-29 ml/min Diabetes mellitus Diabetic neuropathy HTN (hypertension) MGUS (monoclonal gammopathy of unknown s ignificance) PAD (peripheral artery disease) [id number] Vitamin D deficiency BMI greater than 40 Diabetic neuropathy Dietary counseling and surveillance Diminished pulses in lower extremity Hyperlipidemia LDL goal <100 [id number] Vitamin D deficiency Mental Status Observation Response Date Recorded oriented to person Yes September 13 2:45pm oriented to place Yes September 13 2:45pm oriented to time Yes September 14, 2023 2:45pm patient oriented x3 Yes September 13, 024 2:45pm oriented to person Yes November 22, 2023 10:08am oriented to place Yes November 21, 024 10:08am oriented to time Yes November 21 10:08am patient oriented x3 Yes November 22, 2023 10:08am oriented to person Yes January 15, 2024 3:46pm oriented to place Yes January 15, 2024 3:46pm oriented to time Yes January 14 024 3:46pm patient oriented x3 Yes January 3:46pm Assessments Diagnosis Onset Date Resolution Status Cellulitis acute Skin lesion acute Skin ulceration acute Illness noneactive BMI greater than 40 acute Diabetic neuropathy acute Dietary counseling and surveillance acute Diminished pulses in lower extremity acute Hyperlipidemia LDL goal <100 acute [id number] acute Vitamin D deficiency acute Afib acute ASHD (arteriosclerotic heart disease) acute CHF (congestive heart failure) acute CKD (chronic kidney disease) stage 4, GFR 15-29 ml/min acute Diabetes mellitus acute Diabetic neuropathy acute HTN (hypertension) acute MGUS (monoclonal gammopathy of unknown significance) acute PAD (peripheral artery disease) acute [id number] acute Vitamin D deficiency acute BMI greater than 40 acute Diabetic neuropathy acute Dietary counseling and surveillance acute Diminished pulses in lower extremity acute Hyperlipidemia LDL goal <100 acute [id number] acute Vitamin D deficiency acute Plan of Treatment Author Elda [facility] Authored September 14, 2023 4:16 pm Diabetes type 2 diagnosed in 2013 Past CAD- no A fib , CHF +- Dr. Solares CKD +, sees nephro- Dr. 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 Past Stroke- no Neuropathy-yes Last eye exam in Jan 2022 -> no DR per pt a1C 7.3% on 07/06/2023 (<--- in April 7.4%) blood sugar today 125 Labs: 09/11/2021: urine alb/cr 30 11/30/2021: GFR 35 (L), A1C 8.2%, normal LFT, TC 180, TGL 155 (H), LDL 105 (H), HDL 48 04/14/2022: GFR 40% (L), normal liver function, LDL 79, TGL 115, TC 163, HDL 63, urine alb/cr 9 09/14/2022: GFR 39 L, A1C 6.8%, AST 22, ALT 25, AL 53, TC 171, TGL 136, LDL91, HDL 57, urine lab/cr 11 01/03/2023: GFR 37 L, AST 18, ALT 21, ALP 77, ??TC 175, TGL 151 H, LDL 96, HDL 54, urine microalb/cr 10 A1C 7.4%/ meds adjusted LDL at 101/on statin urine protein and BP at goal-on losartan recommend yearly dilated eye exam reviewed germania data --> with occ high postprandial, recommended to eat carb consistent diet, loosing data - recommended to wave atleast 4 times daily continue Atorvastatin discussed neurology referral- declined continue gabapentin always wear shoes hydration with water portion control make healthier food choices active as able limit carb to 40 grams with meal and 15 grams with snack . Read food labels try to get GLP1 via patient assitance hydration with water portion control make healthier food choices active as able limit carb to 40 grams with meal and 15 grams with snack . Read food labels start vitamin D obtain ultrasound lower extremity Author [facility] Authored August 25, 2023 8:43a m will start antibiotics will give a dose of ceftriaxone in the office in 7 clindamycin along with Bactroban to his pharmacy. Author Edelmira [facility] Authored January 15, 2024 3 :46pm Diabetes type 2 diagnosed in 2013 Past CAD- no A fib , CHF +- Dr. Solares CKD +, sees nephro- Dr. 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 Past Stroke- no Neuropathy-yes Last eye exam in Jan 2023 -> no DR per pt a1C 11/24 was 6.9% blood sugar today 214 Labs: 09/11/2021: urine alb/cr 30 11/30/2021: GFR 35 (L), A1C 8.2%, normal LFT, TC 180, TGL 155 (H), LDL 105 (H), HDL 48 04/14/2022: GFR 40% (L), normal liver function, LDL 79, TGL 115, TC 163, HDL 63, urine alb/cr 9 09/14/2022: GFR 39 L, A1C 6.8%, AST 22, ALT 25, AL 53, TC 171, TGL 136, LDL91, HDL 57, urine lab/cr 11 01/03/2023: GFR 37 L, AST 18, ALT 21, ALP 77, ??TC 175, TGL 151 H, LDL 96, HDL 54, urine microalb/cr 10 11/07/2023: eGFR 34, glucose 127, triglyceride 108, cholesterol 131, LDL 57, HDL 55, Vitamin D 42, microalbumin/creat 14, HgA1c 6.9% A1C 6.9%/ meds adjusted LDL at 101/on statin urine protein and BP at goal-on losartan recommend yearly dilated eye exam reviewed germania data --> 6% low, decrease insulin pull germania report in a couple of weeks continue Atorvastatin discussed neurology referral- declined continue gabapentin always wear shoes hydration with water portion control make healthier food choices active as able limit carb to 40 grams with meal and 15 grams with snack . Read food labels Continue GLP-1 hydration with water portion control make healthier food choices active as able limit carb to 40 grams with meal and 15 grams with snack . Read food labels continue vitamin D obtain ultrasound lower extremity; patient reports he went to [facility], no records Future Tests Future scheduled test information is unavailable Pending Tests Test Name Ordered Date Scheduled Date Blood Culture January 22, 2024 12:40pm Blood Culture January 22, 2024 1:25pm US art doppler w press UE BI September 14, 2023 3:1 3pm Hemoglobin A1C November 22, 2023 10:11am Microalbumin w/Creat Ur Random November 22, 2023 10:11am Future Visits Future appointment information is unavailable Referrals to Other Providers Reason for Referral Referral Start Date Provider Provider Contact Information Provider Address Erwin Gardner MD Work Phone: [phone] [facility] [id number] Future Procedures Procedure Name Ordered Date Scheduled Date Comprehensive Metabolic Panel November 22, 2023 10:11am Lipid Panel November 22, 2023 10:19am Testosterone, Free and Total November 22, 2023 1 :03pm Vitamin D 25 Hydroxy November 22, 2023 10:11am Care Coordination Consult January 22, 2024 3:0 1pm January 22, 2024 12:00am Wound/ET Consult January 22, 2024 3:01pm Octob er 2023 12:00am Future Medications Future medication information is unavailable Patient Instructions Antibiotic Form Leg Edema (ED) Goals Acute Goals Author Authored Date Exhibit optimal tissue integ rity * Exhibits granulation/healing at site * Exhibits decreased drainage at site * Exhibits no s/s of infection * Exhibits a decrease in lesion size * Maintains nutritional status * Maintains hydration status * Maintains optimal lab values [facility] December 06, 2023 3:0 8pm Hospital Discharge Instructions Additional Instructions Your primary care provider will put orders through for you to have home health care and physical therapy. Please continue to take your medications as prescribed. Please reschedule your appointment with wound care. Return to the ER with any worsening symptoms.
--- OUTSIDE RECORDS SUMMARY | 2024-04-15 05:57 | XMS_ITS | Encounter Summary ---
Author Organization [facility] Address [address] [facility] [place] [address] Care Team Providers Care Lobbyist Name Role Phone Unavailable Primary Care Provider Unavailabl e Encounter Details Date Type Department Care Team (Late st Contact Info) Description 2024 Lab Requisition [facility] [address] [place] [address] [place] [address] Social History Tobacco Use Types Packs/Day Years Used Date Smoking Tobacco: Never Assessed Sex and Gender Information Value Date Recorded Sex Assigned at Not on file Gender Identity Not on file Sexual Orientation Not on file documented as of this encounter Plan of Treatment Not on file documented as of this encounter Procedures Procedure Name Priority Date/Time Associated Diagnosis Comments PT-INR STAT 2024 12:59 PM ENVIRONMENTAL CHANGE ANALYST documented in this encounter Results * (ABNORMAL) PT-INR (2024 12:59 PM ENVIRONMENTAL CHANGE ANALYST) PT 23.1(H) 12.1 - 14.8 sec 2024 1:28 PM ENVIRONMENTAL CHANGE ANALYST [facility] INR 2.1(H) 0.9 - 1.1 2024 1:28 PM ENVIRONMENTAL CHANGE ANALYST [facility] Blood BLOOD SPECIMEN / Unknown Venipuncture / Unknown 2024 12:59 PM ENVIRONMENTAL CHANGE ANALYST 2024 12:59 PM ENVIRONMENTAL CHANGE ANALYST Narrative [facility] - 2024 1:28 PM ENVIRONMENTAL CHANGE ANALYST Conventional Warfarin Anticoagulant Therapy: INR Reference Range: ??2.0-3.0 Intensive Warfarin Anticoagulant Therapy: INR Reference Range: ? 2.5-3.5 Phil Andrew LAB - COAGULATION OR DERABLES [facility] [address] [place] [address] documented in this encounter Visit Diagnoses Not on filedocumented in this encounter
--- OUTSIDE RECORDS SUMMARY | 2024-04-15 05:57 | XMS_ITS | Patient Health Summary ---
Author Organization [facility] Address [address] [facility] [place] [address] Care Team Providers Care Electronic Publishing Specialist Name Role Phone Unavailable Primary Care Provider Unavailabl e Note from [facility],non-owned Affiliates and Associated Physician Practices is amultiple site organization consisting of ambulatory clinics and hospital sitesin [place], [place], [place] and [place]. This disclosure is being madepursuant to the Care Everywhere program and may not contain all information available regarding this patient. Last updated 17.[facility] Social History Tobacco Use Types Packs/Day Years Used Date Smoking Tobacco: Never Assessed Sex and Gender Information Value Date Recorded Sex Assigned at Not on file Gender Identity Not on file Sexual Orientation Not on file Procedures * PT-INR(Performed 2024) Results * (ABNORMAL) PT-INR (2024 12:59 PM COMMERCIAL ANALYST) PT 23.1(H) 12.1 - 14.8 sec 2024 1:28 PM COMMERCIAL ANALYST [facility] INR 2.1(H) 0.9 - 1.1 2024 1:28 PM COMMERCIAL ANALYST [facility] Blood BLOOD SPECIMEN / Unknown Venipuncture / Unknown 2024 12:59 PM COMMERCIAL ANALYST 2024 12:59 PM COMMERCIAL ANALYST Narrative [facility] - 2024 1:28 PM COMMERCIAL ANALYST Conventional Warfarin Anticoagulant Therapy: INR Reference Range: ??2.0-3.0 Intensive Warfarin Anticoagulant Therapy: INR Reference Range: ? 2.5-3.5 Phil Andrew LAB - COAGULATION OR DERABLES [facility] [address] [place] [address]
--- OUTSIDE RECORDS SUMMARY | 2024-04-15 05:57 | XMS_ITS | Referral Summary ---
Author Organization [facility] Address [address] [facility] [place] [address] Care Team Providers Care Lead Database Administrator Name Role Phone Unavailable Primary Care Provider Unavailabl e Source Comments [facility],non-owned Affiliates and Associated Physician Practices is amultiple site organization consisting of ambulatory clinics and hospital sitesin [place], [place], [place]. This disclosure is being madepursuant to the Care Everywhere program and may not contain all information available regarding this patient. Last updated 17.[facility] Encounters Date Type Department Care Team Description 2024 Lab Requisition [facility] [address] [place] [address] Phil Andrew from Last 3 Months Social History Tobacco Use Types Packs/Day Years Used Date Smoking Tobacco: Never Assessed Sex and Gender Information Value Date Recorded Sex Assigned at Not on file Gender Identity Not on file Sexual Orientation Not on file Plan of Treatment Not on file Procedures Procedure Name Priority Date/Time Associated Diagnosis Comments PT-INR STAT 2024 12:59 PM INFERTILITY MEDICAL ASSISTANT from Last 3 Months Results * (ABNORMAL) PT-INR (2024 12:59 PM INFERTILITY MEDICAL ASSISTANT) PT 23.1(H) 12.1 - 14.8 sec 2024 1:28 PM INFERTILITY MEDICAL ASSISTANT [facility] INR 2.1(H) 0.9 - 1.1 2024 1:28 PM INFERTILITY MEDICAL ASSISTANT [facility] Blood BLOOD SPECIMEN / Unknown Venipuncture / Unknown 2024 12:59 PM INFERTILITY MEDICAL ASSISTANT 2024 12:59 PM INFERTILITY MEDICAL ASSISTANT Narrative [facility] - 2024 1:28 PM INFERTILITY MEDICAL ASSISTANT Conventional Warfarin Anticoagulant Therapy: INR Reference Range: ??2.0-3.0 Intensive Warfarin Anticoagulant Therapy: INR Reference Range: ? 2.5-3.5 Phil Andrew LAB - COAGULATION OR DERABLES Performing Organization Address City/State/[facility] Co de Phone Number [facility] [address] [place] [address] from Last 3 Months
--- OUTSIDE RECORDS SUMMARY | 2024-04-15 05:57 | XMS_ITS | Clinical Summary ---
Author Organization [facility] Address [address] [facility] [place] [address] Care Team Providers Care Batch Tester Name Role Phone Unavailable Primary Care Provider Unavailabl e Source Comments [facility],non-owned Affiliates and Associated Physician Practices is amultiple site organization consisting of ambulatory clinics and hospital sitesin [place], [place], [place] and [place]. This disclosure is being madepursuant to the Care Everywhere program and may not contain all information available regarding this patient. Last updated 17.[facility] Encounters Date Type Department Care Team Description 2024 Lab Requisition [facility] [address] [place] [id number] Phil Andrew from Last 3 Months Social History Tobacco Use Types Packs/Day Years Used Date Smoking Tobacco: Never Assessed Sex and Gender Information Value Date Recorded Sex Assigned at Not on file Gender Identity Not on file Sexual Orientation Not on file Plan of Treatment Health Maintenance Due Date Last Done Comments COLOGUARD (AGES 45-75) - COL ON CA SCREENING 1950 COLON MONITORING 1950 COLONOSCOPY - COLON CA SCREENING 1950 CT COLONOGRAPHY - COLON CA SCREENING 1950 Colorectal Cancer Screening 1950 FIT - COLON CA SCREENING 1950 FLEX SIG - COLON CA SCREENING 1950 LIPID TESTING 1950 HEPATITIS C SCREENING 02/24/1968 DTAP/TDAP/TD VACCINES (1 - Tdap) 1969 PNEUMOCOCCAL VACCINE 50+ (1 of 1 - PCV) 02/29/2000 ZOSTER VACCINE (1 of 2) 02/29/2000 COVID-19 VACCINE ( - 2023-2 5 season) 2023 INFLUENZA VACCINE (#1) 2023 DEPRESSION SCREENING 04/03/2024 MEDICARE AWV ? CALENDAR YEAR 2024 Respiratory Syncytial Virus (RSV) Vaccine Pt: or over 60 yrs (1 - 1-dose 75+ series) 2025 HEPATITIS B VACCINE Aged Out No longe r eligible based on patient's age to complete this topic HIB VACCINE Aged Out No longer eligi ble based on patient's age to complete this topic HPV VACCINE Aged Out No longer eligi ble based on patient's age to complete this topic MENINGOCOCCAL (Group B) VACCINE Aged Out No longer eligible based on patient's age to complete this topic MENINGOCOCCAL VACCINE Aged Out No go carlyle eligible based on patient's age to complete this topic Procedures Procedure Name Priority Date/Time Associated Diagnosis Comments PT-INR STAT 2024 12:59 PM COMMUTATOR UNDERCUTTER from Last 3 Months Results * (ABNORMAL) PT-INR (2024 12:59 PM COMMUTATOR UNDERCUTTER) PT 23.1(H) 12.1 - 14.8 sec 2024 1:28 PM COMMUTATOR UNDERCUTTER [facility] INR 2.1(H) 0.9 - 1.1 2024 1:28 PM COMMUTATOR UNDERCUTTER [facility] Blood BLOOD SPECIMEN / Unknown Venipuncture / Unknown 2024 12:59 PM COMMUTATOR UNDERCUTTER 2024 12:59 PM COMMUTATOR UNDERCUTTER Narrative [facility] - 2024 1:28 PM COMMUTATOR UNDERCUTTER Conventional Warfarin Anticoagulant Therapy: INR Reference Range: ??2.0-3.0 Intensive Warfarin Anticoagulant Therapy: INR Reference Range: ? 2.5-3.5 Phil Andrew LAB - COAGULATION OR DERABLES [facility] [address] [place] [address] from Last 3 Months
--- OUTSIDE RECORDS SUMMARY | 2024-04-15 05:57 | XMS_ITS | Clinical Summary ---
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 Operator Name Role Phone Darlene Gardner MD Primary Care Provide r Kev Dey MD Unavailable [phone] Amelia RodrigezM Unavailable [phone] Meghan Cordero MD Unavailable [phone] Dennys Coates MD Unavailable [phone] Darlene Velasquez MD Unavailable [phone] Feroz Craty MD Unavailable [phone] Allergies No known active allergies Medications insulin regular (HumuLIN R, NovoLIN R) 100 unit/mL injectionIndicat ions:type 2 diabetes mellitus Inject under the skin 3 (three) times a day before meals Sliding scale Suspended ULTICARE 1 mL 30 gauge x 1/2 syringe 8 Suspended warfarin (COUMADIN) 2.5 mg tabletIndication s:atrial fibrillation Take 1 tablet (2.5 mg total) by mouth once a week Monday Suspended fish oil-dha-epa 1,200-144-216 mg capsule Take 1 capsule by mouth 2 (two) times a day Suspended acetaminophen (TYLENOL) 500 mg tabletIndication s:Arthritic Pain,Back Pain Take 2 tablets (1,000 mg total) by mouth nightly Suspended triamcinolone (KENALOG) 0.1 % cream Apply topically as needed 2 Suspended insulin NPH (HumuLIN N, NovoLIN N) 100 unit/mL vial for injectionIndicat ions:type 2 diabetes mellitus Inject 60 Units under the skin 2 (two) times a day Suspended erythromycin (ILOTYCIN) ophthalmic ointment Apply to eyelid incisions [address] Only place ointment in the eyes if they are irritated. 3.5 g 3 2 Suspended mupirocin (BACTROBAN) 2 % ointment APPLY A SMALL AMOUNT TO THE AFFECTED AREA(S) ON LEG 3 TIMES DAILY 2 Suspended atorvastatin (LIPITOR) 20 mg tablet TAKE 1 TABLET BY MOUTH DAILY 90 tablet 3 2 Suspended fenofibrate (TRIGLIDE) 160 mg tablet TAKE 1 TABLET BY MOUTH EVERY DAY 90 tablet 3 3 Suspended gabapentin (NEURONTIN) 100 mg capsule Take 1 capsule (100 mg total) by mouth 3 (three) times a day 3 Suspended Klor-Con M20 20 mEq CR tablet TAKE 1 TABLET BY MOUTH EVERY DAY 90 tablet 3 4 Suspended semaglutide (OZEMPIC) 0.25 mg or 0.5 mg(2 mg/1.5 mL) pen injector injection Inject 0.25 mg under the skin once a week Suspended losartan (COZAAR) 50 mg tablet TAKE 1 TABLET BY MOUTH EVERY DAY 90 tablet 3 4 Suspended spironolactone (ALDACTONE) 50 mg tablet TAKE 1 TABLET BY MOUTH EVERY DAY 90 tablet 2 4 Suspended carvediloL (COREG) 25 mg tablet TAKE 0.5 TABLETS BY MOUTH 2 TIMES A DAY WITH MEALS. 90 tablet 2 4 Suspended furosemide (LASIX) 80 mg tablet TAKE ONE AND ONE-HALF TABLETS BY MOUTH DAILY 135 tablet 2 4 Suspended warfarin (COUMADIN) 5 mg tablet TAKE 1 TABLET (5 MG TOTAL) BY MOUTH DAILY. 30 tablet 4 Suspended Active Problems Problem Noted Date Diagnosed Date Discharge planning issues 04/12/2024 Assessment & Plan (04/13/2024 4:01 PM EXPELLER WORKER): 04/12: Awaiting accepting hospice facility 04/13 Patient is medically stable for discharge, SW/CM updated. Discharge pending facility acceptance Necrotizing soft tissue infection 04/09/2024 Assessment & Plan (04/13/2024 4:01 PM EXPELLER WORKER): 04/09: OR s/p debridement of deep tissue necrotic sacral wound with necrotic tissue extending to R perirectal region, packed with rectal tube. No perforation noted on rectal exam. On epi, levo, vaso, admit to SICU intubated -Received Cefe and partial dose Vanc at OSH -Given Linezolid, Cefe, flagyl, and Clinda in OR, D/c clinda -Returning to OR today for excisional debridement -Meropenem, Linezolid 04/10:Continue abx 04/11:extubated overnight, transitioned to hospice per patient request COMFORT CARE/ DNR, Change dressing BID daily Hospice consulted, anticipate discharge through their services ID: not continued under patient directive for comfort care/hospice VTE prophylaxis: not indicated Rectal drain in place 04/12: Continue comfort care. Regular diet. BID dressing changes. Awaiting hospice facility placement. 04/13 continue local wound care Septic shock 04/09/2024 CKD (chronic kidney disease) 04/09/2024 Assessment & Plan (04/12/2024 1:57 PM EXPELLER WORKER): Unknown baseline but prior hospitalizations with Cr 1.8, currently 1.25 --Avoid nephrotoxins CHF (congestive heart failure) ([facility]) 025 Overview (04/09/2024): Hold home lasix, spironalactone, Coreg, losartan, fenofibrate, statin in acute setting Necrotizing fasciitis 04/08/2024 Chronic venous insufficiency 12/08/2023 Assessment & Plan (12/08/2023 11:19 AM CDT): Discussed the importance of compression therapy, he has compression stockings, I also recommended Dave wraps if the compression stockings are too difficult to get on. PVD (peripheral vascular disease) 12/08/2023 Assessment & Plan (12/08/2023 11:19 AM CDT): Doppler testing from [facility] back in 2019, repeat lower extremity arterial Doppler ordered. Overall no life-limiting claudication rest pain or wounds. Continue ASA statin therapy. Mixed hyperlipidemia 12/08/2023 Assessment & Plan (12/08/2023 11:19 AM CDT): Stable continue Lipitor 20 mg Basal cell carcinoma of right upper eyelid 06/03 Overview (06/03/2021): Added automatically from request for surgery [id number] MGUS (monoclonal gammopathy of unknown significa nce) 01/21/2019 Cardiomyopathy, idiopathic 07/18/2017 Atrial fibrillation (CMS/HCC) [I48.91] 7 Assessment & Plan (04/09/2024 4:28 PM EXPELLER WORKER): -Afib (on warfarin but stopped taking early March, possibly on eliquis Resolved Problems Problem Noted Date Diagnosed Date Resolved Date Multiple myeloma not having achieved remission (CMS/HCC) 10/13/2017 01/21/2019 Encounters Date Type Department Care Team Description 04/12/2024 Home Care Visit [facility] [place] [address] [address] [place] [id number] Lilly Booker RN SN TRIAGE ENCOUNTER 04/09/2024 11:08 AM EXPELLER WORKER Anesthesia Event [facility] Operating [address] [place] [address] Guillermo Reyes MD Gessel, Janice M., KATY 04/09/2024 9:50 AM EXPELLER WORKER - 04/09/2024 12:00 PM EXPELLER WORKER Surgery [facility] Operating Room [address] [place] [address] Angelito Fisher MD DEBRIDEMENT WOUND 04/09/2024 4:00 AM EXPELLER WORKER - 04/09/2024 6:05 AM EXPELLER WORKER Surgery [facility] Operating Room [address] [place] [phone] Baldomero Weldon DO DEBRIDEMENT WOUND 04/09/2024 2:42 AM EXPELLER WORKER Anesthesia Event [facility] Operating Room [address] [place] [phone] Tram Miranda MD Smith, Philip Carver, MD 04/09/2024 12:07 AM EXPELLER WORKER - Present Hospital Encounter [facility] [address] [place] [address] Hi Shah MD McHale, Matthew Justin, DO Necrotizing fasciitis (HCC) (Primary Dx); Pressure injury of skin of sacral region, unspecified injury stage; Cystitis; Elevated INR 03/28/2024 Orders Only [facility] Cardiology [address] [place] [phone] Ro Carr MD 01/31/2024 Telephone [facility] Cardiology [address] [facility] [address] [place] [phone] Darlene Velasquez MD Med Refill 01/24/2024 Telephone [facility] [address] [place] [phone] Darlene Velasquez MD INR order from Last 3 Months Immunizations Name Administration Dates Next Due Influenza, Trivalent, High D ose, Split, Preservative Free, Intramuscular 03/13/2019 Surgical History Surgery Date Site/Laterality Comments US GUIDED BIOPSY RENAL 02/03/2021 N/A BIOPSY 04/03/2017 - 04/02/2018 bone biopsy CATARACT EXTRACTION 04/03/2015 - 04/02/2016 Bilateral CARDIAC CATHETERIZATION 06/01/2002 - 07/01/[address] Velasquez's notes RECONSTRUCTION Right MOHS SURGERY Medical History Medical History Date Comments Hypertension Hypertension Adiposity Obesity Hyperlipidemia CHF (congestive heart failure) (CMS/HCC) (HCC) Chronic kidney disease Stage III Type 2 diabetes mellitus (HCC) Neuropathy (CMS/HCC) Feet Atrial fibrillation (CMS/HCC) (HCC) afib Family History Medical History Relation Name Comments Cataracts Brother Coronary artery disease Mother Edmundo nary artery disease, premature; Cataracts Sister Anesthesia problems Neg Hx Blindness Neg Hx Diabetes Neg Hx Glaucoma Neg Hx Macular degeneration Neg Hx Malig Hyperthermia Neg Hx Pseudochol deficiency Neg Hx Retinal detachment Neg Hx Strabismus Neg Hx Thyroid disease Neg Hx Relation Name Status Comments Brother Other lung CA Mother Sister Other Ovarian Social History Tobacco Use Types Packs/Day Years Used Date Smoking Tobacco: Never Smokeless Tobacco: Never Tobacco Cessation:Counseling Given: Not Answered Alcohol Use Standard Drinks/Week Comments No 0 (1 standard drink = 0.6 oz pur e alcohol) AUDIT-C Answer Date Recorded Q1: How often do you have a drink containing alc ohol? Never 06/24/2021 Average Number of Drinks Not on file 022 Q3: How often do you have si x or more drinks on one occasion? Never 06/24/2021 Personal Safety Answer Date Recorded Have you ever been in or are you currently in a harmful physical or emotional relationship or is someone making you feel afraid or unsafe? Denies 04/09/2024 Sex and Gender Information Value Date Recorded Sex Assigned at Not on file Legal Sex Male 11:57 AM EXPELLER WORKER Gender Identity Not on file Sexual Orientation Not on file Obstetrics History Last Filed Vital Signs Vital Sign Reading Time Taken Comments Blood Pressure 127/66 04/15/2024 3:35 AM EXPELLER WORKER Pulse 90 04/15/2024 3:35 AM EXPELLER WORKER Temperature 36.3 ??C (97.3 ??F) 04/15/2024 3:35 AM CS T Respiratory Rate 18 04/15/2024 3:35 AM EXPELLER WORKER Oxygen Saturation 95% 04/15/2024 3:35 AM EXPELLER WORKER Inhaled Oxygen Concentration - - Weight 149 kg (328 lb 7.8 oz) 04/11/2024 11:32 P M EXPELLER WORKER Height 190.5 cm (6' 3 ) 04/11/2024 11:32 PM EXPELLER WORKER Body Mass Index 41.06 04/11/2024 11:32 PM EXPELLER WORKER Plan of Treatment Health Maintenance Due Date Last Done Comments Albumin Creatinine Ratio, Urine 1950 Colon Cancer Screening-Colonoscopy 1950 Depression Screening 1950 Hepatitis C Screening 1950 Dilated Eye Exam 1950 Foot Exam 1950 Pneumococcal vaccine 65+ (1 of 2 - PCV) 02/29/1956 DTaP/Tdap/Td Vaccine (1 - Tdap) 1961 Hepatitis B Screening 02/29/1968 Well Visit 65+ 2015 Covid-19 Vaccine (2023-2 5 season) 2023 12/31/2020, 06/02/2020, 05/09/2020 Influenza Vaccine (#1) 2023 , 02/10/2020, 03/13/2019 Hemoglobin A1C 10/07/2024 04/09/2024, 04/09/2024 Lipid Panel 04/09/2025 04/09/2024, 0805/2023, 11/24/2022, Additional history exists eGFR 04/10/2025 04/10/2024, 10/2024, 04/09/2024, Additional history exists Fall Risk Assessment 04/15/2025 04/15/2024 Zoster Vaccine Completed 04/11/2023, 01/25/2023 Procedures * The patient is currently admitted. The information in this section might not be complete until the patient is discharged. Procedure Name Priority Date/Time Associated Diagnosis Comments C. DIFFICILE TESTING Routine 04/12/2024 12:18 AM EXPELLER WORKER INFECTION PREVENTION VRE CULTURE Routine 04/12/2024 12:15 AM EXPELLER WORKER POCT GLUCOSE DEVICE Routine 04/11/2024 1 1:04 AM EXPELLER WORKER POCT GLUCOSE DEVICE Routine 04/11/2024 8 :04 AM EXPELLER WORKER CRITICAL CARE Routine 04/11/2024 7:07 AM EXPELLER WORKER Necrotizing fasciitis (HCC) POCT GLUCOSE DEVICE Routine 04/11/2024 5 :45 AM EXPELLER WORKER EXTUBATION STAT 04/11/2024 5:34 AM EXPELLER WORKER POCT GLUCOSE DEVICE Routine 04/11/2024 4 :04 AM EXPELLER WORKER POCT GLUCOSE DEVICE Routine 04/11/2024 2 :05 AM EXPELLER WORKER POCT GLUCOSE DEVICE Routine 04/11/2024 1 2:09 AM EXPELLER WORKER POCT GLUCOSE DEVICE Routine 04/10/2024 1 0:49 PM EXPELLER WORKER POCT GLUCOSE DEVICE Routine 04/10/2024 9 :01 PM EXPELLER WORKER CRITICAL CARE Routine 04/10/2024 8:27 PM EXPELLER WORKER Necrotizing fasciitis (HCC) EGFR Routine 04/10/2024 7:15 PM EXPELLER WORKER CALCIUM, IONIZED Routine 04/10/2024 7:15 PM EXPELLER WORKER PHOSPHORUS Routine 04/10/2024 7:15 PM EXPELLER WORKER MAGNESIUM Routine 04/10/2024 7:15 PM EXPELLER WORKER BASIC METABOLIC PANEL Routine 04/10/2024 7:15 PM EXPELLER WORKER CBC WITHOUT DIFFERENTIAL Routine 04/10/2024 7:15 PM EXPELLER WORKER POCT GLUCOSE DEVICE Routine 04/10/2024 7 :07 PM EXPELLER WORKER XR CHEST 1 VIEW IP Routine 04/10/2024 6:22 PM EXPELLER WORKER POCT GLUCOSE DEVICE Routine 04/10/2024 5 :09 PM EXPELLER WORKER POCT GLUCOSE DEVICE Routine 04/10/2024 2 :43 PM EXPELLER WORKER POCT GLUCOSE DEVICE Routine 04/10/2024 1 :14 PM EXPELLER WORKER CRITICAL CARE Routine 04/10/2024 12:04 PM EXPELLER WORKER Necrotizing fasciitis (HCC) POCT GLUCOSE DEVICE Routine 04/10/2024 1 1:40 AM EXPELLER WORKER POCT GLUCOSE DEVICE Routine 04/10/2024 1 0:13 AM EXPELLER WORKER POCT GLUCOSE DEVICE Routine 04/10/2024 9 :15 AM EXPELLER WORKER POCT GLUCOSE DEVICE Routine 04/10/2024 8 :05 AM EXPELLER WORKER POCT GLUCOSE DEVICE Routine 04/10/2024 7 :26 AM EXPELLER WORKER POCT GLUCOSE DEVICE Routine 04/10/2024 5 :54 AM EXPELLER WORKER POCT GLUCOSE DEVICE Routine 04/10/2024 4 :59 AM EXPELLER WORKER POCT GLUCOSE DEVICE Routine 04/10/2024 4 :02 AM EXPELLER WORKER POCT GLUCOSE DEVICE Routine 04/10/2024 2 :57 AM EXPELLER WORKER POCT GLUCOSE DEVICE Routine 04/10/2024 1 :52 AM EXPELLER WORKER POCT GLUCOSE DEVICE Routine 04/10/2024 1 :05 AM EXPELLER WORKER POCT GLUCOSE DEVICE Routine 04/10/2024 1 2:10 AM EXPELLER WORKER BLOOD CULTURE Routine 04/10/2024 12:08 AM EXPELLER WORKER BLOOD CULTURE Routine 04/10/2024 12:08 AM EXPELLER WORKER OXYHEMOGLOBIN, CENTRAL VENOUS Routine 04/09/2024 11:06 PM EXPELLER WORKER POCT GLUCOSE DEVICE Routine 04/09/2024 1 1:00 PM EXPELLER WORKER POCT GLUCOSE DEVICE Routine 04/09/2024 1 0:12 PM EXPELLER WORKER POCT GLUCOSE DEVICE Routine 04/09/2024 8 :58 PM EXPELLER WORKER POCT GLUCOSE DEVICE Routine 04/09/2024 8 :05 PM EXPELLER WORKER CRITICAL CARE Routine 04/09/2024 7:29 PM EXPELLER WORKER Necrotizing fasciitis (HCC) EGFR Routine 04/09/2024 7:04 PM EXPELLER WORKER LACTATE, WHOLE BLOOD Routine 04/09/2024 7:04 PM EXPELLER WORKER CALCIUM, IONIZED Routine 04/09/2024 7:04 PM EXPELLER WORKER PHOSPHORUS Routine 04/09/2024 7:04 PM EXPELLER WORKER MAGNESIUM Routine 04/09/2024 7:04 PM EXPELLER WORKER BASIC METABOLIC PANEL Routine 04/09/2024 7:04 PM EXPELLER WORKER CBC WITHOUT DIFFERENTIAL Routine 04/09/2024 7:04 PM EXPELLER WORKER POCT GLUCOSE DEVICE Routine 04/09/2024 7 :03 PM EXPELLER WORKER POCT GLUCOSE DEVICE Routine 04/09/2024 6 :04 PM EXPELLER WORKER POCT GLUCOSE DEVICE Routine 04/09/2024 5 :02 PM EXPELLER WORKER POCT GLUCOSE DEVICE Routine 04/09/2024 3 :49 PM EXPELLER WORKER POCT GLUCOSE DEVICE Routine 04/09/2024 2 :45 PM EXPELLER WORKER POCT GLUCOSE DEVICE Routine 04/09/2024 1 :55 PM EXPELLER WORKER POCT GLUCOSE DEVICE Routine 04/09/2024 1 :12 PM EXPELLER WORKER POCT GLUCOSE DEVICE Routine 04/09/2024 1 1:52 AM EXPELLER WORKER DEBRIDEMENT WOUND 04/09/2024 11: 05 AM EXPELLER WORKER Necrotizing fasciitis (HCC) POCT GLUCOSE DEVICE Routine 04/09/2024 9 :53 AM EXPELLER WORKER TRANSTHORACIC ECHO (TTE) COMPLETE W DOPPLER/CF W CONTRAST Routine 04/09/2024 9:50 AM EXPELLER WORKER CRITICAL CARE Routine 04/09/2024 8:44 AM EXPELLER WORKER Necrotizing fasciitis (HCC) POCT GLUCOSE DEVICE Routine 04/09/2024 8 :04 AM EXPELLER WORKER POCT GLUCOSE DEVICE Routine 04/09/2024 7 :03 AM EXPELLER WORKER POCT GLUCOSE DEVICE Routine 04/09/2024 6 :00 AM EXPELLER WORKER XR CHEST 1 VIEW ED Urgent/IP Urgent 04/09/2024 5:46 AM EXPELLER WORKER XR ABDOMEN AP 1 VIEW ED Urgent/IP Urgent 04/09/2024 5:45 AM EXPELLER WORKER POCT GLUCOSE DEVICE Routine 04/09/2024 5 :00 AM EXPELLER WORKER LIPID PANEL STAT 04/09/2024 4:57 AM EXPELLER WORKER TRIGLYCERIDES STAT 04/09/2024 4:57 AM EXPELLER WORKER EGFR STAT 04/09/2024 4:57 AM EXPELLER WORKER POTASSIUM, WHOLE BLOOD STAT 04/09/2024 4:57 AM EXPELLER WORKER PHOSPHORUS STAT 04/09/2024 4:57 AM EXPELLER WORKER MAGNESIUM STAT 04/09/2024 4:57 AM EXPELLER WORKER CALCIUM, IONIZED STAT 04/09/2024 4:57 AM EXPELLER WORKER CBC WITHOUT DIFFERENTIAL STAT 04/09/2024 4:57 AM EXPELLER WORKER COMPREHENSIVE METABOLIC PANEL STAT 04/09/2024 4:57 AM EXPELLER WORKER PROTIME-INR STAT 04/09/2024 4:57 AM EXPELLER WORKER LACTATE, WHOLE BLOOD STAT 04/09/2024 4:57 AM EXPELLER WORKER BLOOD GAS, ARTERIAL STAT 04/09/2024 4 :57 AM EXPELLER WORKER SEPSIS LACTATE WITH REFLEX Timed 04/09/2024 4:57 AM EXPELLER WORKER CRITICAL CARE Routine 04/09/2024 4:53 AM EXPELLER WORKER MYCOLOGY (FUNGAL) CULTURE AND STAIN Routine 04/09/2024 4:22 AM EXPELLER WORKER TISSUE AEROBIC AND ANAEROBIC CULTURE AND GRAM STAIN Routine 04/09/2024 4:22 AM EXPELLER WORKER MYCOLOGY (FUNGAL) CULTURE AND STAIN Routine 04/09/2024 4:13 AM EXPELLER WORKER AEROBIC AND ANAEROBIC CULTURE AND GRAM STAIN Routine 04/09/2024 4:13 AM EXPELLER WORKER TRANSFUSE RED BLOOD CELLS Timed 04/09/2024 4:10 AM EXPELLER WORKER POC BLOOD GAS AND CHEMISTRIES, ARTERIAL Routine 04/09/2024 3:53 AM EXPELLER WORKER TRANSFUSE RED BLOOD CELLS Timed 04/09/2024 3:40 AM EXPELLER WORKER ANESTHESIA INTUBATION Routine 04/09/2024 3:30 AM EXPELLER WORKER ANESTHESIA ARTERIAL LINE PLACEMENT Routine 04/09/2024 3:24 AM EXPELLER WORKER PREPARE RBC STAT 04/09/2024 3:12 AM EXPELLER WORKER POC BLOOD GAS AND CHEMISTRIES, ARTERIAL Routine 04/09/2024 3:09 AM EXPELLER WORKER DEBRIDEMENT WOUND 04/09/2024 2:4 6 AM EXPELLER WORKER Necrotizing fasciitis (HCC) B CHECK SAMPLE STAT 04/09/2024 2:42 AM EXPELLER WORKER [place] CRITICAL CARE ILL/INJURED PATIENT INIT 30-74 MIN Routine 04/09/2024 2:24 AM EXPELLER WORKER ECG 12-LEAD STAT 04/09/2024 2:20 AM EXPELLER WORKER PREPARE RBC Timed 04/09/2024 2:10 AM EXPELLER WORKER URINALYSIS, MICROSCOPIC ONLY STAT 04/09/2024 1:26 AM EXPELLER WORKER URINE CULTURE STAT 04/09/2024 1:26 AM EXPELLER WORKER URINALYSIS AND REFLEX TO MICROSCOPIC AND CULTURE STAT 04/09/2024 1:26 AM EXPELLER WORKER XR CHEST 1 VIEW ED 04/09/2024 12:57 AM EXPELLER WORKER MRSA ONLY (STAPHYLOCOCCUS AUREUS) CULTURE Routine 04/09/2024 12:[address] BODY OUTSIDE CONSULT Routine 04/09/2024 12:36 AM EXPELLER WORKER XR TRANSFER OF OUTSIDE FILMS Routine 04/09/2024 12:34 AM EXPELLER WORKER POCT GLUCOSE DEVICE Routine 04/09/2024 1 2:33 AM EXPELLER WORKER HEMOGLOBIN A1C STAT 04/09/2024 12:33 AM EXPELLER WORKER EGFR STAT 04/09/2024 12:33 AM EXPELLER WORKER DIFFERENTIAL AUTO STAT 04/09/2024 12: 33 AM EXPELLER WORKER SEPSIS LACTATE WITH REFLEX STAT 04/09/2024 12:33 AM EXPELLER WORKER BLOOD GAS, VENOUS STAT 04/09/2024 12: 33 AM EXPELLER WORKER APTT STAT 04/09/2024 12:33 AM EXPELLER WORKER TYPE AND SCREEN STAT 04/09/2024 12:33 AM EXPELLER WORKER PROTIME-INR STAT 04/09/2024 12:33 AM EXPELLER WORKER COMPREHENSIVE METABOLIC PANEL STAT 04/09/2024 12:33 AM EXPELLER WORKER CBC WITH AUTO DIFFERENTIAL STAT 04/09/2024 12:33 AM EXPELLER WORKER BLOOD CULTURE STAT 04/09/2024 12:33 AM EXPELLER WORKER BLOOD CULTURE STAT 04/09/2024 12:33 AM EXPELLER WORKER XR TRANSFER OF OUTSIDE FILMS Critical/Life-T hreatening 04/09/2024 12:21 AM EXPELLER WORKER CARDIOLOGY DOCUMENT SCAN Routine 03/27/2024 3:07 PM EXPELLER WORKER CARDIOLOGY DOCUMENT SCAN Routine 03/24/2024 3:05 PM EXPELLER WORKER from Last 3 Months Results * C. difficile testing Stool (04/12/2024 12:18 AM EXPELLER WORKER) GD Result Positive Negative Toxin Result Negative Negative [facility] C. diff result Negative, free toxin. Negative, free toxin [facility] C. diff interp GD+/toxin- results almost never represent true C. difficile infection (CDI). Results may represent ??colonization with C. difficile without CDI, detection of a bacteria other than toxigenic C. difficile, or a false negative toxin assay. If there is a high index of suspicion for CDI, additional testing by PCR is available upon request. [facility] Stool 04/12/2024 12:1 8 AM EXPELLER WORKER 04/12/2024 1:56 AM EXPELLER WORKER Narrative [facility] - 04/12/2024 5:16 AM EXPELLER WORKER Testing for C. difficile is not recommended within 4 days of a negative result, 10 days of a positive, or 24 hours after laxative administration. If this order is clinically indicated, contact the lab and enter the passcode to complete this order.->[id number] Ever Lentz [facility] LAB MICROBIOLOGY - GENERA L ORDERABLES Final Result [facility] [place] [address] * (ABNORMAL) Infection Prevention VRE Culture Stool (04/12/2024 12:15 AM EXPELLER WORKER) Report Final Report: Enterococcus species, vancomycin resistant (.) Organism ENTEROCOCCUS SPECIES, VANCOMYCIN RESISTANT [facility] Stool 04/12/2024 12:1 5 AM EXPELLER WORKER 04/12/2024 6:10 AM EXPELLER WORKER Narrative [facility] - 04/13/2024 12:13 PM EXPELLER WORKER Surveillance culture for Infection Prevention purposes only; results indicate colonization, not infection requiring treatment. Testing performed by [facility] Microbiology Laboratory ([phone]). Baldomero Weldon DO LAB MICROBIOLOGY - GENE RAL ORDERABLES Final Result Performing Organization Address [facility] Co de Phone Number [facility] [place] [email or web address] [place] [address] * POCT glucose (04/11/2024 11:04 AM EXPELLER WORKER) Glucose, POC 114 70 - 199 mg/dL Blood 04/11/2024 11:0 4 AM EXPELLER WORKER 04/11/2024 11:04 AM EXPELLER WORKER Baldomero Weldon DO LAB POCT ORDERABLES - D EVICE Final Result Performing Organization Address [facility] de Phone Number [facility] [email or web address] [email or web address] [place] [address] * POCT glucose (04/11/2024 8:04 AM EXPELLER WORKER) Glucose, POC 91 70 - 199 mg/dL Blood 04/11/2024 8:04 AM EXPELLER WORKER 04/11/2024 8:04 AM EXPELLER WORKER Baldomero Weldon DO LAB POCT ORDERABLES - D EVICE Final Result Performing Organization Address [facility] [place] [address] * Critical Care (04/11/2024 7:07 AM EXPELLER WORKER) Narrative Emil Branham MD - 04/11/2024 7:07 AM EXPELLER WORKER Ever Lentz DNP ? 04/11/2024 ??5:22 PM Critical Care Performed by: Ever Lentz DNP Authorized by: Ever Lentz DNP ?? CRITICAL CARE: ??Team: ??SICU RED ??Shift: ??AM ??Level of Billing: ??Critical Care ??My time spent with this patient was 75 minutes: Critical Provider Statement: I have seen and examined the patient on this day of service. I have reviewed and confirmed the history, physical exam, laboratory and radiologic data as documented in the signed ICU note. I have reviewed and discussed my treatment plan with the ICU team and other medical/personnel consultant staff, making frequent assessments and decisions regarding this patient's complex medical care. Critical Care time was exclusive of time spent performing separately billed procedures, treating other patients, and teaching. This time was in addition to and separate from critical care provided by other practitioners in my group on this day of service. Critical Care was necessary to treat or prevent imminent or life-threatening deterioration of the following conditions: ? I spent time reviewing and interpreting data from bedside monitors, laboratory results, and imaging, I spent time discussing the management of this critically ill patient with consultants and the medical staff and I spent time documenting in the medical record us Ever Lentz DNP IN CLINIC/BEDSIDE ORDERAB LES Final Result * POCT glucose (04/11/2024 5:45 AM EXPELLER WORKER) Glucose, POC 103 70 - 199 mg/dL Blood 04/11/2024 5:45 AM EXPELLER WORKER 04/11/2024 5:45 AM EXPELLER WORKER us Baldomero Weldon DO LAB POCT ORDERABLES - D EVICE Final Result [facility] Department [place] [address] * POCT glucose (04/11/2024 4:04 AM EXPELLER WORKER) Glucose, POC 113 70 - 199 mg/dL Blood 04/11/2024 4:04 AM EXPELLER WORKER 04/11/2024 4:04 AM EXPELLER WORKER us Baldomero Dove Shiraz DO LAB POCT ORDERABLES - D EVICE Final Result Performing Organization Address City/[facility]/ZIP [place] [address] * POCT glucose (04/11/2024 2:05 AM EXPELLER WORKER) Glucose, POC 112 70 - 199 mg/dL Blood 04/11/2024 2:05 AM EXPELLER WORKER 04/11/2024 2:05 AM EXPELLER WORKER us Baldomero Dove Shiraz DO LAB POCT ORDERABLES - D EVICE Final Result Performing Organization Address [facility] [place] [address] * POCT glucose (04/11/2024 12:09 AM EXPELLER WORKER) Glucose, POC 120 70 - 199 mg/dL Blood 04/11/2024 12:0 9 AM EXPELLER WORKER 04/11/2024 12:09 AM EXPELLER WORKER us Baldomero Dove Shiraz DO LAB POCT ORDERABLES - D EVICE Final Result Performing Organization Address [facility]/ZIP Co de Phone Number [email or web address] [place] [address] * POCT glucose (04/10/2024 10:49 PM EXPELLER WORKER) Glucose, POC 125 70 - 199 mg/dL Blood 04/10/2024 10:4 9 PM EXPELLER WORKER 04/10/2024 10:49 PM EXPELLER WORKER us Baldomero Dove Shiraz DO LAB POCT ORDERABLES - D EVICE Final Result Performing Organization Address City/[facility]/ZIP Co de Phone Number [email or web address] [place] [address] * POCT glucose (04/10/2024 9:01 PM EXPELLER WORKER) Glucose, POC 157 70 - 199 mg/dL Blood 04/10/2024 9:01 PM EXPELLER WORKER 04/10/2024 9:01 PM EXPELLER WORKER us Baldomero Weldon DO LAB POCT ORDERABLES - D EVICE Final Result [facility] Department [place] [address] * Critical Care (04/10/2024 8:27 PM EXPELLER WORKER) Narrative Francisco Redman MD - 04/10/2024 8:27 PM EXPELLER WORKER Neymar Benavieds PA ? 04/11/2024 ??4:41 AM Critical Care Performed by: Neymar Benavides PA Authorized by: Neymar Benavides PA ?? CRITICAL CARE: ??Team: ??SICU RED ??Shift: ??PM ??Level of Billing: ??Critical Care ??My time spent with this patient was 100 minutes: Critical Provider Statement: I have seen and examined the patient on this day of service. I have reviewed and confirmed the history, physical exam, laboratory and radiologic data as documented in the signed ICU note. I have reviewed and discussed my treatment plan with the ICU team and other medical/personnel consultant staff, making frequent assessments and decisions regarding this patient's complex medical care. Critical Care time was exclusive of time spent performing separately billed procedures, treating other patients, and teaching. This time was in addition to and separate from critical care provided by other practitioners in my group on this day of service. Critical Care was necessary to treat or prevent imminent or life-threatening deterioration of the following conditions: ? I spent time reviewing and interpreting data from bedside monitors, laboratory results, and imaging, I spent time discussing the management of this critically ill patient with consultants and the medical staff and I spent time documenting in the medical record us Neymar CALLEJAS IN CLINIC/BEDSIDE ORDER EVY Final Result * eGFR (04/10/2024 7:15 PM EXPELLER WORKER) eGFR 63 >=60 mL/min/1. 73 m2 Comment: Interpretive Data Reference Interval Normal ?>/= 90 mL/min/1.73m2 Mildly decreased* ? 60 - 89 mL/min/1.73m2 Mildly to moderately decreased ?45 - 59 mL/min/1.73m2 Moderately to severely decreased ??30 - 44 mL/min/1.73m2 Severely decreased ?15 - 29 mL/min/1.73m2 Kidney Failure ?< 15 ??mL/min/1.73m2 *Relative to young adult level Estimated glomerular filtration rate is determined by the 2020 CKD-EPI equation recommended by the National Kidney [employer] (A Unifying Approach to GFR Estimation: Recommendations of the NKF-ASK Task Force on Reassessing the Inclusion of Race in Diagnosing Kidney Disease, JASN 2020). The CKD-EPI equation should not be used for patients with unstable renal function and has not been validated in children and those over 70. Current interpretive data was last reviewed 2021. Blood 04/10/2024 7:15 PM EXPELLER WORKER 04/10/2024 7:30 PM EXPELLER WORKER Devora Perez MANAGER ENT LAB BLOOD ORDERABLES Final Result [facility] [place] [address] * Calcium, ionized (04/10/2024 7:15 PM EXPELLER WORKER) Calcium, Ionized 4.52 4.50 - 5.10 mg/dL Blood 04/10/2024 7:15 PM EXPELLER WORKER 04/10/2024 7:24 PM EXPELLER WORKER us Devora Perez MANAGER ENT LAB BLOOD ORDERABLES Final Result Performing Organization Address City/[facility]/ZIP Co de Phone Number [facility] Department [place] [address] * (ABNORMAL) CBC without differential (04/10/2024 7:15 PM EXPELLER WORKER) WBC 17.7(H) 3.8 - 9.9 K/cumm Hgb 7.9(L) 13.0 - 17.5 g/dL [facility] Hct 23.3(L) 38.9 - 50.3 % [facility] Plt 266 150 - 400 K/cumm [facility] MPV 10.5 9.1 - 12.3 fL [facility] RBC 2.68(L) 4.30 - 5.80 M/cumm [facility] MCV 86.9 81.3 - 96.4 fL [facility] MCH 29.5 27.1 - 33.3 pg [facility] MCHC 33.9 32.3 - 35.7 g/dL [facility] RDW CV 17.9(H) 11.1 - 14.9 % [facility] RDW SD 56.8(H) 35.7 - 48.1 fL [facility] NRBC abs 0.00 0.00 - 0.01 K/cumm [facility] Blood 04/10/2024 7:15 PM EXPELLER WORKER 04/10/2024 7:30 PM EXPELLER WORKER us Devora Perez MANAGER ENT LAB BLOOD ORDERABLES Final Result [facility] Department [place] [address] * (ABNORMAL) Phosphorus (04/10/2024 7:15 PM EXPELLER WORKER) Phosphorus, pl 2.2(L) 2.3 - 4.5 mg/dL Blood 04/10/2024 7:15 PM EXPELLER WORKER 04/10/2024 7:30 PM EXPELLER WORKER Devora Perez MANAGER ENT LAB BLOOD ORDERABLES Final Result Performing Organization Address City/[facility]/ZIP Co de Phone Number [facility] Department [place] [address] * Magnesium (04/10/2024 7:15 PM EXPELLER WORKER) [facility] Magnesium 1.9 1.4 - 2.5 mg/dL Blood 04/10/2024 7:15 PM EXPELLER WORKER 04/10/2024 7:30 PM EXPELLER WORKER Devora Ortez MANAGER ENT LAB BLOOD ORDERABLES Final Result Performing Organization Address [facility] de Phone Number [facility] [place] [address] * (ABNORMAL) Basic metabolic panel (04/10/2024 7:15 PM EXPELLER WORKER) [facility] Sodium 134(L) 135 - 145 mmol/L Potassium, pl 3.8 3.3 - 4.9 mmol/L [facility] Chloride 102 97 - 110 mmol/L [facility] CO2 26 22 - 32 mmol/L [facility] Anion gap 6 2 - 15 mmol/L [facility] BUN 37(H) 6 - 25 mg/dL [facility] Creatinine 1.21 0.80 - 1.30 mg/dL [facility] Glucose 151 70 - 199 mg/dL [facility] Comment: Interpretive Data Fasting glucose >/= 126 mg/dl is diagnostic for diabetes. ?? Fasting is defined as no caloric intake for at least 8 hours. Fasting glucose between 100 mg/dl to 125 mg/dl is diagnostic of prediabetes. In a patient with classic symptoms of hyperglycemia or hyperglycemic crisis, a random glucose >/= 200 mg/dl is diagnostic for diabetes. In the absence of unequivocal hyperglycemia, results should be confirmed by repeat testing. The classification and Diagnosis of Diabetes Diabetes Care 2021; 46: S19-S40. Current interpretive data was last revised 2022. Calcium 8.0(L) 8.5 - 10.3 mg/dL [facility] Blood 04/10/2024 7:15 PM EXPELLER WORKER 04/10/2024 7:30 PM EXPELLER WORKER us Devora Torres Ana MANAGER ENT LAB BLOOD ORDERABLES Final Result Performing Organization Address City/[facility]/ZIP Co de Phone Number [facility] Department [place] [address] * POCT glucose (04/10/2024 7:07 PM EXPELLER WORKER) Glucose, POC 155 70 - 199 mg/dL Blood 04/10/2024 7:07 PM EXPELLER WORKER 04/10/2024 7:07 PM EXPELLER WORKER us Baldomero Weldon DO LAB POCT ORDERABLES - D EVICE Final Result Performing Organization Address [facility] Co de Phone Number [facility] Department [place] [address] * XR Chest 1 View (04/10/2024 6:22 PM EXPELLER WORKER) Anatomical Region Laterality Modality Body, Chest N/A Computed Radiogr aphy 04/11/2024 7:50 AM EXPELLER WORKER Impressions 04/11/2024 7:50 AM EXPELLER WORKER Comparison is made to chest radiograph dated 04/19/2024 at 5:02 AM. Endotracheal tube terminates 3.8 cm above the josue. ??Gastric tube extends into the stomach and terminates out of the field of view. Right internal jugular venous approach catheter tip overlies the superior vena cava. Decreased mild right basilar atelectasis. ??No right pleural effusion. Increased left basilar atelectasis, now with collapse or near collapse of the left lower lobe. ??Small left pleural effusion is similar to prior study. ??No pneumothorax. ??Stable cardiomediastinal silhouette. Electronically signed by: Lana Alejo M.D. Narrative 04/11/2024 7:50 AM EXPELLER WORKER EXAMINATION: 1 view chest radiograph Procedure Note Lnaa Alejo MD - 04/11/2024 EXAMINATION: 1 view chest radiograph IMPRESSION: Comparison is made to chest radiograph dated 04/19/2024 at 5:02 AM. Endotracheal tube terminates 3.8 cm above the josue. Gastric tube extends into the stomach and terminates out of the field of view. Right internal jugular venous approach catheter tip overlies the superior vena cava. Decreased mild right basilar atelectasis. No right pleural effusion. Increased left basilar atelectasis, now with collapse or near collapse of the left lower lobe. Small left pleural effusion is similar to prior study. No pneumothorax. Stable cardiomediastinal silhouette. Electronically signed by: Lana Alejo M.D. us Ever Lentz DNP IMG XR PROCEDURES Final R esult * POCT glucose (04/10/2024 5:09 PM EXPELLER WORKER) Glucose, POC 135 70 - 199 mg/dL Blood 04/10/2024 5:09 PM EXPELLER WORKER 04/10/2024 5:09 PM EXPELLER WORKER Baldomero Weldon DO LAB POCT ORDERABLES - D EVICE Final Result Performing Organization Address [facility] Co de Phone Number [facility] [place] [email or web address] [place] [address] * POCT glucose (04/10/2024 2:43 PM EXPELLER WORKER) Glucose, POC 144 70 - 199 mg/dL Blood 04/10/2024 2:43 PM EXPELLER WORKER 04/10/2024 2:43 PM EXPELLER WORKER Baldomero Weldon DO LAB POCT ORDERABLES - D EVICE Final Result Performing Organization Address [facility] [place] [email or web address] [place] [address] * POCT glucose (04/10/2024 1:14 PM EXPELLER WORKER) Glucose, POC 115 70 - 199 mg/dL Blood 04/10/2024 1:14 PM EXPELLER WORKER 04/10/2024 1:14 PM EXPELLER WORKER us Baldomero Weldon DO LAB POCT ORDERABLES - D EVICE Final Result [facility] Department [place] [address] * Critical Care (04/10/2024 12:04 PM EXPELLER WORKER) Narrative Emil Branham MD - 04/10/2024 12:04 PM EXPELLER WORKER Ever Lentz DNP ? 04/10/2024 ??5:52 PM Critical Care Performed by: Ever Lentz DNP Authorized by: Ever Lentz DNP ?? CRITICAL CARE: ??Team: ??SICU RED ??Shift: ??AM ??Level of Billing: ??Critical Care ??My time spent with this patient was 90 minutes: Critical Provider Statement: I have seen and examined the patient on this day of service. I have reviewed and confirmed the history, physical exam, laboratory and radiologic data as documented in the signed ICU note. I have reviewed and discussed my treatment plan with the ICU team and other medical/personnel consultant staff, making frequent assessments and decisions regarding this patient's complex medical care. Critical Care time was exclusive of time spent performing separately billed procedures, treating other patients, and teaching. This time was in addition to and separate from critical care provided by other practitioners in my group on this day of service. Critical Care was necessary to treat or prevent imminent or life-threatening deterioration of the following conditions: ? I spent time reviewing and interpreting data from bedside monitors, laboratory results, and imaging, I spent time documenting in the medical record and I spent time discussing the management of this critically ill patient with consultants and the medical staff us Ever Lentz DNP IN CLINIC/BEDSIDE ORDERAB LES Final Result * POCT glucose (04/10/2024 11:40 AM EXPELLER WORKER) Glucose, POC 131 70 - 199 mg/dL Blood 04/10/2024 11:4 0 AM EXPELLER WORKER 04/10/2024 11:40 AM EXPELLER WORKER Baldomero Streetale DO LAB POCT ORDERABLES - D EVICE Final Result Performing Organization Address [facility] Co de Phone Number [place] [email or web address] [place] [address] * POCT glucose (04/10/2024 10:13 AM EXPELLER WORKER) Glucose, POC 142 70 - 199 mg/dL Blood 04/10/2024 10:1 3 AM EXPELLER WORKER 04/10/2024 10:13 AM EXPELLER WORKER Baldomero Streetale [facility] POCT ORDERABLES - D EVICE Final Result Performing Organization Address [facility] [place] [address] * POCT glucose (04/10/2024 9:15 AM EXPELLER WORKER) Glucose, POC 137 70 - 199 mg/dL Blood 04/10/2024 9:15 AM EXPELLER WORKER 04/10/2024 9:15 AM EXPELLER WORKER Baldomero Weldon DO [facility] POCT ORDERABLES - D EVICE Final Result Performing Organization Address [facility] [place] [address] * POCT glucose (04/10/2024 8:05 AM EXPELLER WORKER) Glucose, POC 123 70 - 199 mg/dL Blood 04/10/2024 8:05 AM EXPELLER WORKER 04/10/2024 8:05 AM EXPELLER WORKER us Baldomero Derrell Weldon DO LAB POCT ORDERABLES - D EVICE Final Result Performing Organization Address City/[facility] [place] [address] * POCT glucose (04/10/2024 7:26 AM EXPELLER WORKER) Glucose, POC 136 70 - 199 mg/dL Blood 04/10/2024 7:26 AM EXPELLER WORKER 04/10/2024 7:26 AM EXPELLER WORKER us Baldomero Derrell Weldon DO LAB POCT ORDERABLES - D EVICE Final Result Performing Organization Address [facility] [place] [address] * POCT glucose (04/10/2024 5:54 AM EXPELLER WORKER) Glucose, POC 123 70 - 199 mg/dL Blood 04/10/2024 5:54 AM EXPELLER WORKER 04/10/2024 5:54 AM EXPELLER WORKER us Baldomero Weldon DO LAB POCT ORDERABLES - D EVICE Final Result Performing Organization Address [facility] [place] [address] * POCT glucose (04/10/2024 4:59 AM EXPELLER WORKER) Glucose, POC 134 70 - 199 mg/dL Blood 04/10/2024 4:59 AM EXPELLER WORKER 04/10/2024 4:59 AM EXPELLER WORKER us Baldomero Weldon DO LAB POCT ORDERABLES - D EVICE Final Result Performing Organization Address City/[facility] Co de Phone Number [facility] [place] [email or web address] [place] [address] * POCT glucose (04/10/2024 4:02 AM EXPELLER WORKER) Glucose, POC 149 70 - 199 mg/dL Blood 04/10/2024 4:02 AM EXPELLER WORKER 04/10/2024 4:02 AM EXPELLER WORKER Baldomero Streetale DO LAB POCT ORDERABLES - D EVICE Final Result Performing Organization Address [facility] de Phone Number [facility] [place] [email or web address] [place] [address] * POCT glucose (04/10/2024 2:57 AM EXPELLER WORKER) Glucose, POC 177 70 - 199 mg/dL Blood 04/10/2024 2:57 AM EXPELLER WORKER 04/10/2024 2:57 AM EXPELLER WORKER Baldomero Daileykeny Weldon DO LAB POCT ORDERABLES - D EVICE Final Result Performing Organization Address [facility] [place] [address] * POCT glucose (04/10/2024 1:52 AM EXPELLER WORKER) Glucose, POC 171 70 - 199 mg/dL Blood 04/10/2024 1:52 AM EXPELLER WORKER 04/10/2024 1:52 AM EXPELLER WORKER Baldomero Streetale LAB POCT ORDERABLES - D EVICE Final Result Performing Organization Address [facility] [place] [address] * POCT glucose (04/10/2024 1:05 AM EXPELLER WORKER) Glucose, POC 171 70 - 199 mg/dL Blood 04/10/2024 1:05 AM EXPELLER WORKER 04/10/2024 1:05 AM EXPELLER WORKER Baldomero Weldon DO LAB POCT ORDERABLES - D EVICE Final Result Performing Organization Address City/[facility]/ZIP Co de Phone Number [facility] [place] [address] * POCT glucose (04/10/2024 12:10 AM EXPELLER WORKER) Glucose, POC 151 70 - 199 mg/dL Blood 04/10/2024 12:1 0 AM EXPELLER WORKER 04/10/2024 12:10 AM EXPELLER WORKER Baldomero Weldon DO LAB POCT ORDERABLES - D EVICE Final Result Performing Organization Address [facility] de Phone Number [facility] Department [place] [address] * Blood culture Blood (04/10/2024 12:08 AM EXPELLER WORKER) Report Final Report: No growth Blood 04/10/2024 12:0 8 AM EXPELLER WORKER 04/10/2024 12:36 AM EXPELLER WORKER Narrative [facility] - 04/14/2024 7:00 AM EXPELLER WORKER Collection->Peripheral 1. ?Blood cultures are incubated for 4 days on a continuously monitored blood culture system. The first report of a negative culture is issued within 24 hours of receipt of the specimen in the laboratory. 2. ?Positive culture results are reported as soon as they are detected. 3. ?The most important factor for detection of microbes in the setting of bloodstream infection is the volume of blood submitted for culture. Failure to collect an optimal blood volume can result in false negative blood cultures. 4. ? For pediatric patients, the recommended blood volume to collect follows a weight based strategy. See the electronic test catalog for collection instructions. 5. ?For positive blood cultures, a rapid molecular test may be performed for organism identification using the nathan ePlex blood culture identification panel for gram positive (BCID-GP) and gram negative (BCID-GN) organisms. This nucleic acid amplification test detects microbial DNA in positive blood culture broth. This assay has been cleared by the [place] Food and Drug Administration and its performance characteristics have been verified by the [facility] Microbiology Laboratory. For questions about this culture, contact the Microbiology Laboratory at [phone]. Interpretive data was last revised on 24. Devora Perez NP LAB MICROBIOLOGY - G ENERAL ORDERABLES Final Result [facility] [place] [address] * Blood culture Blood (04/10/2024 12:08 AM EXPELLER WORKER) Report Final Report: No growth Blood 04/10/2024 12:0 8 AM EXPELLER WORKER 04/10/2024 12:36 AM EXPELLER WORKER Narrative [facility] - 04/14/2024 7:00 AM EXPELLER WORKER Collection->Peripheral 1. ?Blood cultures are incubated for 4 days on a continuously monitored blood culture system. The first report of a negative culture is issued within 24 hours of receipt of the specimen in the laboratory. 2. ?Positive culture results are reported as soon as they are detected. 3. ?The most important factor for detection of microbes in the setting of bloodstream infection is the volume of blood submitted for culture. Failure to collect an optimal blood volume can result in false negative blood cultures. 4. ? For pediatric patients, the recommended blood volume to collect follows a weight based strategy. See the electronic test catalog for collection instructions. 5. ?For positive blood cultures, a rapid molecular test may be performed for organism identification using the nathan ePlex blood culture identification panel for gram positive (BCID-GP) and gram negative (BCID-GN) organisms. This nucleic acid amplification test detects microbial DNA in positive blood culture broth. This assay has been cleared by the [place] Food and Drug Administration and its performance characteristics have been verified by the [facility] Microbiology Laboratory. For questions about this culture, contact the Microbiology Laboratory at [phone]. Interpretive data was last revised on 24. Devora Perez NP LAB MICROBIOLOGY - G ENERAL ORDERABLES Final Result Performing Organization Address [facility] de Phone Number [facility] [place] [address] * Oxyhemoglobin, central venous (04/09/2024 11:06 PM EXPELLER WORKER) Oxyhemoglobin, CV 61.6 % Comment: Interpretive Data No reference range established. Current interpretive data was last revised 2019. Blood 04/09/2024 11:0 6 PM EXPELLER WORKER 04/09/2024 11:31 PM EXPELLER WORKER us Neymar Benavides PA LAB BLOOD ORDERABLES Fi nal Result Performing Organization Address [facility] de Phone Number [facility] Department [place] [address] * POCT glucose (04/09/2024 11:00 PM EXPELLER WORKER) Glucose, POC 101 70 - 199 mg/dL Blood 04/09/2024 11:0 0 PM EXPELLER WORKER 04/09/2024 11:00 PM EXPELLER WORKER us Baldomero Weldon DO LAB POCT ORDERABLES - D EVICE Final Result Performing Organization Address [facility] de Phone Number [facility] Department [place] [address] * POCT glucose (04/09/2024 10:12 PM EXPELLER WORKER) Glucose, POC 96 70 - 199 mg/dL Blood 04/09/2024 10:1 2 PM EXPELLER WORKER 04/09/2024 10:12 PM EXPELLER WORKER us Baldomero Derrell Shiraz DO LAB POCT ORDERABLES - D EVICE Final Result Performing Organization Address [facility] [place] [address] * POCT glucose (04/09/2024 8:58 PM EXPELLER WORKER) Glucose, POC 114 70 - 199 mg/dL Blood 04/09/2024 8:58 PM EXPELLER WORKER 04/09/2024 8:58 PM EXPELLER WORKER us Baldomero Weldon DO LAB POCT ORDERABLES - D EVICE Final Result Performing Organization Address [facility] de Phone Number [facility] [place] [address] * POCT glucose (04/09/2024 8:05 PM EXPELLER WORKER) Glucose, POC 126 70 - 199 mg/dL Blood 04/09/2024 8:05 PM EXPELLER WORKER 04/09/2024 8:05 PM EXPELLER WORKER Baldomero Weldon DO LAB POCT ORDERABLES - D EVICE Final Result Performing Organization Address [facility] de Phone Number [facility] [place] [address] * Critical Care (04/09/2024 7:29 PM EXPELLER WORKER) Narrative Francisco Redman MD - 04/09/2024 7:29 PM EXPELLER WORKER Neymar Benavides PA ? 04/10/2024 ??4:53 AM Critical Care Performed by: Neymar Benavides PA Authorized by: Neymar Benavides PA ?? CRITICAL CARE: ??Team: ??SICU RED ??Shift: ??PM ??Level of Billing: ??Critical Care ??My time spent with this patient was 110 minutes: Critical Provider Statement: I have seen and examined the patient on this day of service. I have reviewed and confirmed the history, physical exam, laboratory and radiologic data as documented in the signed ICU note. I have reviewed and discussed my treatment plan with the ICU team and other medical/personnel consultant staff, making frequent assessments and decisions regarding this patient's complex medical care. Critical Care time was exclusive of time spent performing separately billed procedures, treating other patients, and teaching. This time was in addition to and separate from critical care provided by other practitioners in my group on this day of service. Critical Care was necessary to treat or prevent imminent or life-threatening deterioration of the following conditions: ? I spent time reviewing and interpreting data from bedside monitors, laboratory results, and imaging, I spent time discussing the management of this critically ill patient with consultants and the medical staff and I spent time documenting in the medical record us Neymar CALLEJAS IN CLINIC/BEDSIDE ORDER EVY Final Result * eGFR (04/09/2024 7:04 PM EXPELLER WORKER) eGFR 63 >=60 mL/min/1. 73 m2 Comment: Interpretive Data Reference Interval Normal ?>/= 90 mL/min/1.73m2 Mildly decreased* ? 60 - 89 mL/min/1.73m2 Mildly to moderately decreased ?45 - 59 mL/min/1.73m2 Moderately to severely decreased ??30 - 44 mL/min/1.73m2 Severely decreased ?15 - 29 mL/min/1.73m2 Kidney Failure ?< 15 ??mL/min/1.73m2 *Relative to young adult level Estimated glomerular filtration rate is determined by the 2020 CKD-EPI equation recommended by the National Kidney Foundation (A Unifying Approach to GFR Estimation: Recommendations of the NKF-ASK Task Force on Reassessing the Inclusion of Race in Diagnosing Kidney Disease, JASN 202). The CKD-EPI equation should not be used for patients with unstable renal function and has not been validated in children and those over 70. Current interpretive data was last reviewed 2021. Blood 04/09/2024 7:04 PM EXPELLER WORKER 04/09/2024 7:22 PM EXPELLER WORKER [facility] LAB BLOOD ORDERABLES Final Result Performing Organization Address [facility] Co de Phone Number [place] [address] * Calcium, ionized (04/09/2024 7:04 PM EXPELLER WORKER) Pathologist [facility] Calcium, Ionized 4.61 4.50 - 5.10 mg/dL Blood 04/09/2024 7:04 PM EXPELLER WORKER 04/09/2024 7:11 PM EXPELLER WORKER [facility] LAB BLOOD ORDERABLES Final Result Performing Organization Address [facility] [place] [address] * Lactate, whole blood (04/09/2024 7:04 PM EXPELLER WORKER) [facility] Lactate, bld 1.9 0.7 - 2.0 mmol/L Blood 04/09/2024 7:04 PM EXPELLER WORKER 04/09/2024 7:11 PM EXPELLER WORKER [facility] LAB BLOOD ORDERABLES Final Result Performing Organization Address [facility] [place] [address] * (ABNORMAL) CBC without differential (04/09/2024 7:04 PM EXPELLER WORKER) [facility] WBC 21.4(H) 3.8 - 9.9 K/cumm Hgb 7.6(L) 13.0 - 17.5 g/dL [facility] Hct 22.6(L) 38.9 - 50.3 % [facility] Plt 229 150 - 400 K/cumm [facility] MPV 9.9 9.1 - 12.3 fL [facility] RBC 2.58(L) 4.30 - 5.80 M/cumm [facility] MCV 87.6 81.3 - 96.4 fL [facility] MCH 29.5 27.1 - 33.3 pg [facility] MCHC 33.6 32.3 - 35.7 g/dL [facility] RDW CV 17.7(H) 11.1 - 14.9 % [facility] RDW SD 56.4(H) 35.7 - 48.1 fL [facility] NRBC abs 0.00 0.00 - 0.01 K/cumm [facility] Blood 04/09/2024 7:04 PM EXPELLER WORKER 04/09/2024 7:14 PM EXPELLER WORKER Devora Ortez MANAGER ENT LAB BLOOD ORDERABLES Final Result [facility] [place] [address] * Phosphorus (04/09/2024 7:04 PM EXPELLER WORKER) Phosphorus, pl 3.0 2.3 - 4.5 mg/dL Blood 04/09/2024 7:04 PM EXPELLER WORKER 04/09/2024 7:11 PM EXPELLER WORKER Devora Ortez MANAGER ENT LAB BLOOD ORDERABLES Final Result [facility] [place] [address] * Magnesium (04/09/2024 7:04 PM EXPELLER WORKER) Magnesium 2.0 1.4 - 2.5 mg/dL Blood 04/09/2024 7:04 PM EXPELLER WORKER 04/09/2024 7:11 PM EXPELLER WORKER us Devora Perez MANAGER ENT LAB BLOOD ORDERABLES Final Result [facility] Department [place] [address] * (ABNORMAL) Basic metabolic panel (04/09/2024 7:04 PM EXPELLER WORKER) Sodium 133(L) 135 - 145 mmol/L Potassium, pl 3.9 3.3 - 4.9 mmol/L [facility] Chloride 98 97 - 110 mmol/L [facility] CO2 24 22 - 32 mmol/L [facility] Anion gap 11 2 - 15 mmol/L [facility] BUN 33(H) 6 - 25 mg/dL [facility] Creatinine 1.20 0.80 - 1.30 mg/dL [facility] Glucose 128 70 - 199 mg/dL [facility] Comment: Interpretive Data Fasting glucose >/= 126 mg/dl is diagnostic for diabetes. ?? Fasting is defined as no caloric intake for at least 8 hours. Fasting glucose between 100 mg/dl to 125 mg/dl is diagnostic of prediabetes. In a patient with classic symptoms of hyperglycemia or hyperglycemic crisis, a random glucose >/= 200 mg/dl is diagnostic for diabetes. In the absence of unequivocal hyperglycemia, results should be confirmed by repeat testing. The classification and Diagnosis of Diabetes Diabetes Care 2021; 46: S19-S40. Current interpretive data was last revised 2022. Calcium 8.0(L) 8.5 - 10.3 mg/dL [facility] Blood 04/09/2024 7:04 PM EXPELLER WORKER 04/09/2024 7:11 PM EXPELLER WORKER us Devora Perez MANAGER ENT LAB BLOOD ORDERABLES Final Result [facility] [place] [address] * POCT glucose (04/09/2024 7:03 PM EXPELLER WORKER) Glucose, POC 139 70 - 199 mg/dL Blood 04/09/2024 7:03 PM EXPELLER WORKER 04/09/2024 7:03 PM EXPELLER WORKER Baldomero Weldon DO LAB POCT ORDERABLES - D EVICE Final Result Performing Organization Address [facility] de Phone Number [email or web address] [address] * POCT glucose (04/09/2024 6:04 PM EXPELLER WORKER) Glucose, POC 161 70 - 199 mg/dL Blood 04/09/2024 6:04 PM EXPELLER WORKER 04/09/2024 6:04 PM EXPELLER WORKER Baldomero Weldon DO LAB POCT ORDERABLES - D EVICE Final Result Performing Organization Address [facility] Phone Number [facility] [email or web address] [place] [address] * POCT glucose (04/09/2024 5:02 PM EXPELLER WORKER) Glucose, POC 131 70 - 199 mg/dL Blood 04/09/2024 5:02 PM EXPELLER WORKER 04/09/2024 5:02 PM EXPELLER WORKER Baldomero Weldon DO LAB POCT ORDERABLES - D EVICE Final Result Performing Organization Address [facility] [place] [address] * POCT glucose (04/09/2024 3:49 PM EXPELLER WORKER) Glucose, POC 139 70 - 199 mg/dL Blood 04/09/2024 3:49 PM EXPELLER WORKER 04/09/2024 3:49 PM EXPELLER WORKER Baldomero Weldon DO LAB POCT ORDERABLES - D EVICE Final Result Performing Organization Address [facility] [place] [address] * POCT glucose (04/09/2024 2:45 PM EXPELLER WORKER) Glucose, POC 164 70 - 199 mg/dL Blood 04/09/2024 2:45 PM EXPELLER WORKER 04/09/2024 2:45 PM EXPELLER WORKER us Baldomero Weldon DO LAB POCT ORDERABLES - D EVICE Final Result Performing Organization Address [facility] [place] [address] * POCT glucose (04/09/2024 1:55 PM EXPELLER WORKER) Glucose, POC 181 70 - 199 mg/dL Blood 04/09/2024 1:55 PM EXPELLER WORKER 04/09/2024 1:55 PM EXPELLER WORKER us Baldomero Weldon DO LAB POCT ORDERABLES - D EVICE Final Result Performing Organization Address [facility] Co de Phone Number [facility] [email or web address] [address] * POCT glucose (04/09/2024 1:12 PM EXPELLER WORKER) Glucose, POC 164 70 - 199 mg/dL Blood 04/09/2024 1:12 PM EXPELLER WORKER 04/09/2024 1:12 PM EXPELLER WORKER us Baldomero Weldon DO LAB POCT ORDERABLES - D EVICE Final Result Performing Organization Address [facility] Co de Phone Number [email or web address] [address] * POCT glucose (04/09/2024 11:52 AM EXPELLER WORKER) Glucose, POC 131 70 - 199 mg/dL Blood 04/09/2024 11:5 2 AM EXPELLER WORKER 04/09/2024 11:52 AM EXPELLER WORKER us Baldomero Weldon DO LAB POCT ORDERABLES - D EVICE Final Result Performing Organization Address [facility] de Phone Number [facility] Department [place] [address] * POCT glucose (04/09/2024 9:53 AM EXPELLER WORKER) Glucose, POC 167 70 - 199 mg/dL Blood 04/09/2024 9:53 AM EXPELLER WORKER 04/09/2024 9:53 AM EXPELLER WORKER Baldomero Weldon DO LAB POCT ORDERABLES - D EVICE Final Result Performing Organization Address [facility] de Phone Number [facility] [email or web address] [place] [address] * TRANSTHORACIC ECHO (TTE) COMPLETE W DOPPLER/CF W CONTRAST (04/09/2024 9:50 AM EXPELLER WORKER) [facility] LV EF 29 % CARDIOREPORT Anatomical Region Laterality Modality Ultrasound 04/09/2024 7:00 AM EXPELLER WORKER Narrative 04/09/2024 10:03 AM EXPELLER WORKER Patient name: Darlene Caldera Date of test: 04/09/2024 Type of test: TTE w/Doppler Hospital #: 0 Date of : 1950 (M) Seed Cleaning Manager: Anahi Hernandez RDCS Referring Physician: HEIKE SOLIS MD Contrast Agent: 0.6 ml Optison Administered, (2.4 ml wasted). Contrast Administered by: CROP OR LIVESTOCK TENANT FARMER Supervised/Interpreted by: Stuart ??MD Khloe Diagnosis: Location: [facility] Reason for test: septic shock MV Structure: Normal, ?MV Motion: Normal, ?? Mitral Annulus: mildly calcified AV Structure: tricuspid and is mildly thickened, ?? AV Motion: Normal Aotic root: Normal, ?TM: Normal, ?? PV: Normal Valvular Vegetations: none seen, ?Mass/Thrombi: none seen RA: Normal Measurements: ?M-Mode ?Normal ? Aotic Root: ? <3.8 ? LA: ? <4.0 ? RV: ? <2.8 ? LV(ED): ? <5.7 ? LV(ES): ? Variable ?2D Linear Normal ? Aotic Root: 3.8 cm ?<4.0 ? Ao Indexed: 1.4 cm/M2 <2.0 ? LA: ? 4.6 cm ?<4.0 ? RV: ? <4.2 ? LV(ED): ? 5.9 cm ?<5.9 ? LV(ES): ? 5.0 cm ?<4.0 ?2D Vol. ?? Normal ?Indexed ?? Indexed Normal RA: ? 57.0 ml ? 21.7 ml/M2 ?11-39 ? LA: ? 80.0 ml ? 30.5 ml/M2 ?16-34 ? RV: ? <12.7 ? LV(ED): ? 196.0 ml ??62-150 ?74.7 ml/M2 ?<75 ? LV(ES): ? 138.0 ml ??21-61 ? 52.6 ml/M2 ?<32 ?3D Vol. ? Indexed Normal LV(ED): ?<75 ? LV(ES): ?<32 ? LV EF: 29 % ?? (Normal: >=52%) ?? LV Septum: 0.8 cm ?(Normal: <1.0 cm) Wall Motion Scoring (1=Normal 2=Hypo 3=Akinetic 4=Dyskin./Aneurysm 0=Not visualized) Parasternal Long Healy:MAS=2 BAS=2 MIL=2 WILLOW=2 Parasternal Short Healy:MAS=2 MIS=2 AZ=2 MIL=2 MAL=2 MA=2 Apical 4 Chambers:=2 MIS=2 BIS=2 BAL=2 MAL=2 AL=2 AC=2 Apical 2 Chambers:AI=2 AZ=2 BI=2 BA=2 MA=2 AA=2 AC=2 LV Global Longitudinal Strain: -10% ??(Normal <-17%) RV Global Longitudinal Strain: LV Function: Severe Global reduction in LV Ejection Fraction (EF<30%); RV Function: mild global hypokinesis Septal Motion: HYPOKINETIC Pericardial Effusion: none seen Atrial Septum: Normal DOPPLER/COLOR FLOW DOPPLER RESULTS: Diastolic Function: indeterminate Tricuspid Valve: mild TV regurgitation Pulmonic Valve: normal PV AV Regurgitation: Mild AR AV Stenosis: no AV Area: ??cm2 AV Pressure Gradient (mmHg): Mean: 0, Peak:0 MV Regurgitation: No MR seen MV Stenosis: no MS MV Area: ??cm2 MV Pressure Gradient (mmHg): Mean: 0 MV ERO: ??cm Regurg. Vol.: ??ml/beat Regurg. Frac.: ??% PA Pressure: 24+rap mmHg DOPPLER/COLOR FOLOW DOPPLER COMMENTS: Mild AR, No MR seen, no , no MS, mild TV regurgitation, normal PV. Diastolic function: indeterminate CONTRAST: 0.6 ml Optison Administered, (2.4 ml wasted). SUMMARY: LV is dilated with eccentric LV hypertrophy. LVEF 29% with global dysfunction. RVE with mild dysfunction. Mild AR. Estimated PASP 24mmHg+RA pressure. Confirmed on ??04/09/2024 - 10:03:40 by Stuart ??MD Khloe By signing this report, the attending coal loader certifies that he or she has personally supervised and interpreted the echocardiogram and has reviewed and or edited and agrees with the written comments contained within the report. Procedure Note Stuart Ledbetter MD - 04/09/2024 Patient name: Darlene Caldera Date of test: 04/09/2024 Type of test: TTE w/Doppler [facility] #: 0 Date of : 1950 (M) Seed Cleaning Manager: Anahi Hernandez RDCS Referring Physician: HEIKE SOLIS MD Contrast Agent: 0.6 ml Optison Administered, (2.4 ml wasted). Contrast Administered by: CROP OR LIVESTOCK TENANT FARMER Supervised/Interpreted by: Stuart Ledbetter MD Diagnosis: Location: [facility] Reason for test: septic shock MV Structure: Normal, MV Motion: Normal, Mitral Annulus: mildly calcified AV Structure: tricuspid and is mildly thickened, AV Motion: Normal Aotic root: Normal, TM: Normal, PV: Normal Valvular Vegetations: none seen, Mass/Thrombi: none seen RA: Normal Measurements: M-Mode Normal Aotic Root: <3.8 LA: <4.0 RV: <2.8 LV(ED): <5.7 LV(ES): Variable 2D Linear Normal Aotic Root: 3.8 cm <4.0 Ao Indexed: 1.4 cm/M2 <2.0 LA: 4.6 cm <4.0 RV: <4.2 LV(ED): 5.9 cm <5.9 LV(ES): 5.0 cm <4.0 2D Vol. Normal Indexed Indexed Normal RA: 57.0 ml 21.7 ml/M2 11-39 LA: 80.0 ml 30.5 ml/M2 16-34 RV: <12.7 LV(ED): 196.0 ml 62-150 74.7 ml/M2 <75 LV(ES): 138.0 ml 21-61 52.6 ml/M2 <32 3D Vol. Indexed Normal LV(ED): <75 LV(ES): <32 LV EF: 29 % (Normal: >=52%) LV Septum: 0.8 cm (Normal: <1.0 cm) Wall Motion Scoring (1=Normal 2=Hypo 3=Akinetic 4=Dyskin./Aneurysm 0=Not visualized) Parasternal Long Healy:MAS=2 BAS=2 MIL=2 WILLOW=2 Parasternal Short Healy:MAS=2 MIS=2 AZ=2 MIL=2 MAL=2 MA=2 Apical 4 Chambers:=2 MIS=2 BIS=2 BAL=2 MAL=2 AL=2 AC=2 Apical 2 Chambers:AI=2 AZ=2 BI=2 BA=2 MA=2 AA=2 AC=2 LV Global Longitudinal Strain: -10% (Normal <-17%) RV Global Longitudinal Strain: LV Function: Severe Global reduction in LV Ejection Fraction (EF<30%); RV Function: mild global hypokinesis Septal Motion: HYPOKINETIC Pericardial Effusion: none seen Atrial Septum: Normal DOPPLER/COLOR FLOW DOPPLER RESULTS: Diastolic Function: indeterminate Tricuspid Valve: mild TV regurgitation Pulmonic Valve: normal PV AV Regurgitation: Mild AR AV Stenosis: no AV Area: cm2 AV Pressure Gradient (mmHg): Mean: 0, Peak:0 MV Regurgitation: No MR seen MV Stenosis: no MS MV Area: cm2 MV Pressure Gradient (mmHg): Mean: 0 MV ERO: cm Regurg. Vol.: ml/beat Regurg. Frac.: % PA Pressure: 24+rap mmHg DOPPLER/COLOR FOLOW DOPPLER COMMENTS: Mild AR, No MR seen, no , no MS, mild TV regurgitation, normal PV. Diastolic function: indeterminate CONTRAST: 0.6 ml Optison Administered, (2.4 ml wasted). SUMMARY: LV is dilated with eccentric LV hypertrophy. LVEF 29% with global dysfunction. RVE with mild dysfunction. Mild AR. Estimated PASP 24mmHg+RA pressure. Confirmed on 04/09/2024 - 10:03:40 by Stuart Ledbetter MD By signing this report, the attending coal loader certifies that he or she has personally supervised and interpreted the echocardiogram and has reviewed and or edited and agrees with the written comments contained within the report. us Heike Solis NP CV ECHO PROCEDURES Final Resul t * Critical Care (04/09/2024 8:44 AM EXPELLER WORKER) Narrative Emil Branham MD - 04/09/2024 8:44 AM EXPELLER WORKER Devora Perez NP ? 04/09/2024 ??6:37 PM Critical Care Performed by: Devora Perez NP Authorized by: Devora Perez NP ?? CRITICAL CARE: ??Team: ??SICU RED ??Shift: ??AM ??Level of Billing: ??Critical Care ??My time spent with this patient was 180 minutes: Critical Provider Statement: I have seen and examined the patient on this day of service. I have reviewed and confirmed the history, physical exam, laboratory and radiologic data as documented in the signed ICU note. I have reviewed and discussed my treatment plan with the ICU team and other medical/personnel consultant staff, making frequent assessments and decisions regarding this patient's complex medical care. Critical Care time was exclusive of time spent performing separately billed procedures, treating other patients, and teaching. This time was in addition to and separate from critical care provided by other practitioners in my group on this day of service. Critical Care was necessary to treat or prevent imminent or life-threatening deterioration of the following conditions: ? I spent time reviewing and interpreting data from bedside monitors, laboratory results, and imaging, I spent time discussing the management of this critically ill patient with consultants and the medical staff and I spent time documenting in the medical record us Devora Perez NP IN CLINIC/BEDSIDE OR DERABLES Final Result * POCT glucose (04/09/2024 8:04 AM EXPELLER WORKER) Glucose, POC 169 70 - 199 mg/dL Blood 04/09/2024 8:04 AM EXPELLER WORKER 04/09/2024 8:04 AM EXPELLER WORKER us Baldomero Weldon DO LAB POCT ORDERABLES - D EVICE Final Result Performing Organization Address [facility] de Phone Number [facility] [place] [address] * POCT glucose (04/09/2024 7:03 AM EXPELLER WORKER) Glucose, POC 175 70 - 199 mg/dL Blood 04/09/2024 7:03 AM EXPELLER WORKER 04/09/2024 7:03 AM EXPELLER WORKER Baldomero Weldon DO LAB POCT ORDERABLES - D EVICE Final Result Performing Organization Address [facility] de Phone Number [facility] [place] [address] * POCT glucose (04/09/2024 6:00 AM EXPELLER WORKER) Glucose, POC 160 70 - 199 mg/dL Blood 04/09/2024 6:00 AM EXPELLER WORKER 04/09/2024 6:00 AM EXPELLER WORKER Baldomero Derrell Weldon DO LAB POCT ORDERABLES - D EVICE Final Result Performing Organization Address [facility] [place] [address] * X-ray chest 1 view (Portable) (04/09/2024 5:46 AM EXPELLER WORKER) Anatomical Region Laterality Modality Body, Chest N/A Computed Radiogr aphy 04/09/2024 10:3 7 AM EXPELLER WORKER Impressions 04/09/2024 11:39 AM EXPELLER WORKER Comparison is made to 04/12/2024 radiograph: Endotracheal tube 4.5 cm above the josue. Left greater than right bibasilar atelectasis. ??No pleural effusion. No pneumothorax. ??The cardiomediastinal silhouette is unchanged. ?? Dictated by: Duglas Stark M.D. (Ramanan) The radiology attending physician has personally reviewed this study, and had reviewed and/or edited this written report and agrees with it. Electronically signed by: Isiah Hogan M.D. Narrative 04/09/2024 11:39 AM EXPELLER WORKER EXAMINATION: 1 view chest radiograph Procedure Note Isiah Hogan MD - 04/09/2024 EXAMINATION: 1 view chest radiograph IMPRESSION: Comparison is made to 04/12/2024 radiograph: Endotracheal tube 4.5 cm above the josue. Left greater than right bibasilar atelectasis. No pleural effusion. No pneumothorax. The cardiomediastinal silhouette is unchanged. Dictated by: Duglas Stark M.D. (Ramanan) The radiology attending physician has personally reviewed this study, and had reviewed and/or edited this written report and agrees with it. Electronically signed by: Isiah Hogan M.D. Heike Solis MANAGER ENT IMG XR PROCEDURES Final Result * XR Abdomen Ap 1 Vw (04/09/2024 5:45 AM EXPELLER WORKER) Anatomical Region Laterality Modality Body, Abdomen N/A Computed Radiogr aphy 04/09/2024 8:08 AM EXPELLER WORKER Impressions 04/09/2024 8:08 AM EXPELLER WORKER Feeding tube has its tip in the gastric antrum and side-port in the gastric body. Electronically signed by: Annelise Hayes M.D. Narrative 04/09/2024 8:08 AM EXPELLER WORKER EXAMINATION: Abdomen, one view. HISTORY: Check tube placement. COMPARISON: Correlation with same-day chest radiograph, and CT abdomen pelvis performed on 09/01/2024 Procedure Note Annelise Hayes MD - 04/09/2024 EXAMINATION: Abdomen, one view. HISTORY: Check tube placement. COMPARISON: Correlation with same-day chest radiograph, and CT abdomen pelvis performed on 09/01/2024 IMPRESSION: Feeding tube has its tip in the gastric antrum and side-port in the gastric body. Electronically signed by: Annelise Hayes M.D. Heike Solis MANAGER ENT IMG XR PROCEDURES Final Result * POCT glucose (04/09/2024 5:00 AM EXPELLER WORKER) Glucose, POC 173 70 - 199 mg/dL Comment:Glu2: RN/MD Notified Glucose comment 1 Glu2: RN/MD Notified [facility] Blood 04/09/2024 5:00 AM EXPELLER WORKER 04/09/2024 5:00 AM EXPELLER WORKER Baldomero Weldon DO LAB POCT ORDERABLES - D EVICE Final Result Performing Organization Address [facility] Co de Phone Number [facility] [place] [address] * (ABNORMAL) Sepsis Lactate w/ Reflex (04/09/2024 4:57 AM EXPELLER WORKER) Sepsis Lactate 2.4(H) 0.7 - 2.0 mmol/L Blood 04/09/2024 4:57 AM EXPELLER WORKER 04/09/2024 5:11 AM EXPELLER WORKER Arron Lambert MD LAB BLOOD ORDERABLES Judy l Result Performing Organization Address [facility] Co de Phone Number [facility] [place] [address] * Potassium, whole blood (04/09/2024 4:57 AM EXPELLER WORKER) Potassium, bld 3.8 3.3 - 4.9 mmol/L Blood 04/09/2024 4:57 AM EXPELLER WORKER 04/09/2024 5:11 AM EXPELLER WORKER Heike Solis NP LAB BLOOD ORDERABLES Final Res ult Performing Organization Address [facility] Co de Phone Number [facility] Department [place] [address] * eGFR (04/09/2024 4:57 AM EXPELLER WORKER) eGFR 65 >=60 mL/min/1. 73 m2 Comment: Interpretive Data Reference Interval Normal ?>/= 90 mL/min/1.73m2 Mildly decreased* ? 60 - 89 mL/min/1.73m2 Mildly to moderately decreased ?45 - 59 mL/min/1.73m2 Moderately to severely decreased ??30 - 44 mL/min/1.73m2 Severely decreased ?15 - 29 mL/min/1.73m2 Kidney Failure ?< 15 ??mL/min/1.73m2 *Relative to young adult level Estimated glomerular filtration rate is determined by the 2020 CKD-EPI equation recommended by the National Kidney Foundation (A Unifying Approach to GFR Estimation: Recommendations of the NKF-ASK Task Force on Reassessing the Inclusion of Race in Diagnosing Kidney Disease, JASN 2020). The CKD-EPI equation should not be used for patients with unstable renal function and has not been validated in children and those over 70. Current interpretive data was last reviewed 2021. Blood 04/09/2024 4:57 AM EXPELLER WORKER 04/09/2024 5:08 AM EXPELLER WORKER us Heike Solis MANAGER ENT LAB BLOOD ORDERABLES Final Res ult [facility] [place] [address] * (ABNORMAL) Calcium, ionized (04/09/2024 4:57 AM EXPELLER WORKER) Calcium, Ionized 4.47(L) 4.50 - 5.10 mg/dL Blood 04/09/2024 4:57 AM EXPELLER WORKER 04/09/2024 5:09 AM EXPELLER WORKER Heike Solis MANAGER ENT LAB BLOOD ORDERABLES Final Res ult Performing Organization Address City/State/[facility] Co de Phone Number [facility] [place] [address] * (ABNORMAL) Lactate, whole blood (04/09/2024 4:57 AM EXPELLER WORKER) Lactate, bld 2.4(H) 0.7 - 2.0 mmol/L Blood 04/09/2024 4:57 AM EXPELLER WORKER 04/09/2024 5:11 AM EXPELLER WORKER Heike Solis MANAGER ENT LAB BLOOD ORDERABLES Final Res ult Performing Organization Address [facility] de Phone Number [email or web address] [address] * (ABNORMAL) Protime-INR (04/09/2024 4:57 AM EXPELLER WORKER) PT 19.2(H) 9.7 - 13.0 sec INR 1.76(H) 0.90 - 1.20 [facility] Comment: Interpretive data Oral anticoagulant therapeutic ranges: Venous thromboembolism prophylaxis or treatment: 2.0-3.0 CARDIOLOGY Standard range: 2.0-3.0 High-intensity range: 2.5-3.5 Refer to indication-specific guidelines for appropriate target ranges for prosthetic heart valve replacement. Current interpretive data was last revised on 2019. Blood 04/09/2024 4:57 AM EXPELLER WORKER 04/09/2024 5:22 AM EXPELLER WORKER Heike Solis MANAGER ENT LAB BLOOD ORDERABLES Final Res ult Performing Organization Address [facility] Co de Phone Number [facility] [place] [address] * (ABNORMAL) CBC without differential (04/09/2024 4:57 AM EXPELLER WORKER) [facility] WBC 29.0(H) 3.8 - 9.9 K/cumm Hgb 8.1(L) 13.0 - 17.5 g/dL [facility] Hct 24.6(L) 38.9 - 50.3 % [facility] Plt 309 150 - 400 K/cumm [facility] MPV 10.6 9.1 - 12.3 fL [facility] RBC 2.72(L) 4.30 - 5.80 M/cumm [facility] MCV 90.4 81.3 - 96.4 fL [facility] MCH 29.8 27.1 - 33.3 pg [facility] MCHC 32.9 32.3 - 35.7 g/dL [facility] RDW CV 17.2(H) 11.1 - 14.9 % [facility] RDW SD 56.0(H) 35.7 - 48.1 fL [facility] NRBC abs 0.00 0.00 - 0.01 K/cumm [facility] Blood 04/09/2024 4:57 AM EXPELLER WORKER 04/09/2024 5:50 AM EXPELLER WORKER Heike Solis MANAGER ENT LAB BLOOD ORDERABLES Final Res ult [facility] Department [place] [address] * Triglycerides (04/09/2024 4:57 AM EXPELLER WORKER) [facility] Triglycerides 97 <=149 mg/dL Comment: Interpretive Data Ages < or = 9 years ??Acceptable: ? <75 mg/dL ??Borderline high: ??75-99 mg/dL ??High: ? >or= 100 mg/dL Ages 10 to 20 years ??Acceptable: ? <90 mg/dL ??Borderline high: ??90-129 mg/dL ??High: ? >or= 130 mg/dL Ages > or = 20 years ??Desirable: ?<150 mg/dL ??Borderline high: ??150-199 mg/dL ??High: ? 200-499 mg/dL ?Very high: ?? >or= 499 mg/dL Literature References: 1. Expert Panel on Integrated Guidelines for Cardiovascular Health and Risk Reduction in Children and Adolescents. Pediatrics 2011;128:S213 2. NCEP Expert Panel. Circulation 2004;110:227 Current Interpretive Data was last revised on 2017. Blood 04/09/2024 4:57 AM EXPELLER WORKER 04/09/2024 5:08 AM EXPELLER WORKER Baldomero Weldon DO LAB BLOOD ORDERABLES Fi nal Result Performing Organization Address [facility] de Phone Number [facility] Department [place] [address] * (ABNORMAL) Phosphorus (04/09/2024 4:57 AM EXPELLER WORKER) Phosphorus, pl 1.9(L) 2.3 - 4.5 mg/dL Blood 04/09/2024 4:57 AM EXPELLER WORKER 04/09/2024 5:08 AM EXPELLER WORKER Heike Solis MANAGER ENT LAB BLOOD ORDERABLES Final Res ult Performing Organization Address [facility] de Phone Number [facility] Department [place] [address] * (ABNORMAL) Magnesium (04/09/2024 4:57 AM EXPELLER WORKER) Magnesium 1.3(L) 1.4 - 2.5 mg/dL Blood 04/09/2024 4:57 AM EXPELLER WORKER 04/09/2024 5:08 AM EXPELLER WORKER Heike Solis MANAGER ENT LAB BLOOD ORDERABLES Final Res ult Performing Organization Address [facility] de Phone Number [facility] Department [place] [address] * (ABNORMAL) Blood gas, arterial (04/09/2024 4:57 AM EXPELLER WORKER) pH, Art 7.42 7.35 - 7.45 PCO2, Arterial 37 35 - 45 mmHg [facility] PO2, Arterial 119(H) 83 - 108 mmHg [facility] HCO3 Art (Calculated) 25 20 - 30 mmol/L [facility] BE, art 0 mmol/L [facility] Comment: Interpretive Data No Reference Range Established Current Interpretive Data was last revised on 2017 O2 Sat Art (Measured) 99(H) 90 - 95 % [facility] Blood 04/09/2024 4:57 AM EXPELLER WORKER 04/09/2024 5:11 AM EXPELLER WORKER Heike Solis MANAGER ENT LAB BLOOD ORDERABLES Final Res ult Performing Organization Address [facility] de Phone Number [facility] Department [place] [address] * (ABNORMAL) Lipid panel (04/09/2024 4:57 AM EXPELLER WORKER) Pathologist [facility] Cholesterol 61 30 - 199 mg/dL Comment: Interpretive Data Ages < or = 19 years ??Acceptable: ? <170 mg/dL ??Borderline high: ??170-199 mg/dL ??High: ? >or= 200 mg/dL Ages > or = 20 years ??Desirable: ?<200 mg/dL ??Borderline high: ??200-239 mg/dL ??High: ? >or= 240 mg/dL Literature References: 1. Expert Panel on Integrated Guidelines for Cardiovascular Health and Risk Reduction in Children and Adolescents. Pediatrics 2011;128:S213 2. NCEP Expert Panel. Circulation 2004;110:227 Current Interpretive Data was last revised on 2017. Triglycerides 100 <=149 mg/dL [facility] Comment: Interpretive Data Ages < or = 9 years ??Acceptable: ? <75 mg/dL ??Borderline high: ??75-99 mg/dL ??High: ? >or= 100 mg/dL Ages 10 to 20 years ??Acceptable: ? <90 mg/dL ??Borderline high: ??90-129 mg/dL ??High: ? >or= 130 mg/dL Ages > or = 20 years ??Desirable: ?<150 mg/dL ??Borderline high: ??150-199 mg/dL ??High: ? 200-499 mg/dL ?Very high: ?? >or= 499 mg/dL Literature References: 1. Expert Panel on Integrated Guidelines for Cardiovascular Health and Risk Reduction in Children and Adolescents. Pediatrics 2011;128:S213 2. NCEP Expert Panel. Circulation 2004;110:227 Current Interpretive Data was last revised on 2017. HDL 21(L) >=40 mg/dL [facility] Comment: Interpretive Data Ages < or = 19 years ??Acceptable: ? >45 mg/dL ??Borderline low: ?? 40-45 mg/dL ??Low: ? <40 mg/dL Ages > or = 20 years ??Desirable: ?>or= 60 mg/dL ??Low: ? <40 mg/dL Literature References: 1. Expert Panel on Integrated Guidelines for Cardiovascular Health and Risk Reduction in Children and Adolescents. Pediatrics 2011;128:S213 2. NCEP Expert Panel. Circulation 2004;110:227 Current Interpretive Data was last revised on 2017. LDL, calculated 20 <=129 mg/dL [facility] Comment: Interpretive Data Ages < or = 19 years ??Acceptable: ? <110 mg/dL ??Borderline high: ??110-129 mg/dL ??High: ?>or= 130 mg/dL Ages > or = 20 years ??Optimal: ? <100 mg/dL ??Near optimal: ?100-129 mg/dL ??Borderline high: ?? 130-159 mg/dL ??High: ?>160 mg/dL Calculated using the Brady LDL-C estimating equation. This equation was implemented on 2023. Prior to this date LDL-C was estimated using the Friedewald equation. Literature References: 1. Expert Panel on Integrated Guidelines for Cardiovascular Health and Risk Reduction in Children and Adolescents. Pediatrics 2011;128:S213 2. NCEP Expert Panel. Circulation 2004;110:227 3. Brady Garcia et al. ESTELITA Cardiol. 2020 August 01;5(5):540-548. doi: 10.1001/[email or web address] Current Interpretive Data was last revised on 2023. Non-HDL Cholesterol 40 mg/dL [facility] Comment: Interpretive Data Ages < or = 19 years ??Acceptable: ?<120 mg/dL ??Borderline high: ??120-144 mg/dL ??High: ?>145 mg/dL Ages > or = 20 years ??When triglycerides are >200 mg/dL, Non-HDL cholesterol is a secondary target of ? therapy with treatment goals that are 30 mg/dL greater than the LDL cholesterol target. ? Literature References: 1. Expert Panel on Integrated Guidelines for Cardiovascular Health and Risk Reduction in Children and Adolescents. Pediatrics 2011;128:S213 2. NCEP Expert Panel. Circulation 2004;110:227 Current Interpretive Data was last revised on 2017. Chol/HDL ratio 3 [facility] Blood 04/09/2024 4:57 AM EXPELLER WORKER 04/09/2024 5:08 AM EXPELLER WORKER Narrative [facility] - 04/09/2024 6:09 PM EXPELLER WORKER Reflex us Baldomero Derrell Weldon DO LAB BLOOD ORDERABLES Fi nal Result [facility] [place] [address] * (ABNORMAL) Comprehensive metabolic panel (04/09/2024 4:57 AM EXPELLER WORKER) Sodium 134(L) 135 - 145 mmol/L Potassium, pl 4.0 3.3 - 4.9 mmol/L [facility] Chloride 102 97 - 110 mmol/L [facility] CO2 24 22 - 32 mmol/L [facility] Anion gap 8 2 - 15 mmol/L [facility] BUN 31(H) 6 - 25 mg/dL [facility] Creatinine 1.18 0.80 - 1.30 mg/dL [facility] Glucose 159 70 - 199 mg/dL [facility] Comment: Interpretive Data Fasting glucose >/= 126 mg/dl is diagnostic for diabetes. ?? Fasting is defined as no caloric intake for at least 8 hours. Fasting glucose between 100 mg/dl to 125 mg/dl is diagnostic of prediabetes. In a patient with classic symptoms of hyperglycemia or hyperglycemic crisis, a random glucose >/= 200 mg/dl is diagnostic for diabetes. In the absence of unequivocal hyperglycemia, results should be confirmed by repeat testing. The classification and Diagnosis of Diabetes Diabetes Care 2021; 46: S19-S40. Current interpretive data was last revised 2022. Calcium 8.0(L) 8.5 - 10.3 mg/dL [facility] Bilirubin, total 1.2 0.1 - 1.2 mg/dL [facility] Protein, pl 5.6(L) 6.5 - 8.5 g/dL [facility] Albumin 2.0(L) 3.5 - 5.0 g/dL [facility] Alk phos 339(H) 40 - 130 Units/L [facility] ALT 51 7 - 55 Units/L [facility] AST 49 10 - 50 Units/L [facility] Blood 04/09/2024 4:57 AM EXPELLER WORKER 04/09/2024 5:08 AM EXPELLER WORKER us Heike Solis MANAGER ENT LAB BLOOD ORDERABLES Final Res ult [facility] Department [place] [address] * Critical Care (04/09/2024 4:53 AM EXPELLER WORKER) Narrative Redman, Francisco Ryan MD - 04/09/2024 4:53 AM EXPELLER WORKER Heike Solis NP ? 04/09/2024 ??5:18 AM Critical Care Performed by: Heike Solis NP Authorized by: Heike Solis NP ?? CRITICAL CARE: ??Team: ??SICU RED ??Shift: ??PM ??Level of Billing: ??Critical Care ??My time spent with this patient was 140 minutes: Critical Provider Statement: I have seen and examined the patient on this day of service. I have reviewed and confirmed the history, physical exam, laboratory and radiologic data as documented in the signed ICU note. I have reviewed and discussed my treatment plan with the ICU team and other medical/personnel consultant staff, making frequent assessments and decisions regarding this patient's complex medical care. Critical Care time was exclusive of time spent performing separately billed procedures, treating other patients, and teaching. This time was in addition to and separate from critical care provided by other practitioners in my group on this day of service. Critical Care was necessary to treat or prevent imminent or life-threatening deterioration of the following conditions: ? I spent time reviewing and interpreting data from bedside monitors, laboratory results, and imaging, I spent time discussing the management of this critically ill patient with consultants and the medical staff and I spent time documenting in the medical record Heike Solis NP IN CLINIC/BEDSIDE ORDERABLES F inal Result * (ABNORMAL) Tissue aerobic and anaerobic culture and gram stain Tissue Sacral (04/09/2024 4:22 AM EXPELLER WORKER) Direct Specimen Exam Stain: Few polymorphonuclear leukocytes seen. Abundant Gram Negative Bacilli Moderate Gram Positive Bacilli Few Gram Positive Cocci Report Final Report: Abundant Mixed aerobic and anaerobic microorganisms Includes the following: Moderate Bacteroides uniformis Moderate Bacteroides caccae (.) ERIKA SAUER Organism MIXED AEROBIC AND ANAEROBIC MICROORGANISMS CERNER CAMACHO Organism BACTEROIDES UNIFORMIS ERIKA SAUER Organism BACTEROIDES CACCAE ERIKA OAKES Tissue (Sacral) 04/09/2024 4 :22 AM EXPELLER WORKER 04/09/2024 9:45 AM EXPELLER WORKER Narrative [facility] - 04/14/2024 2:43 PM EXPELLER WORKER Sacral Wound #2 Specimen received in anaerobic transport media. Testing performed by [facility] ([phone]) Specimens submitted from normally sterile body sites will have all bacterial morphotypes identified. Specimens that contain grossly mixed miranda and/or are from body sites that are not normally sterile will be examined for Staphylococcus aureus, Pseudomonas aeruginosa, beta-hemolytic strep, vancomycin-resistant Enterococcus, Bacteroides, Parabacteroides, Clostridium perfringens and fungus. If any of these are isolated, the organism will be reported. Current interpretive data was last revised on 2019. us Baldomero Weldon DO LAB MICROBIOLOGY - GENE RAL ORDERABLES Final Result [facility] Department [place] [address] * (ABNORMAL) Aerobic and anaerobic culture and gram stain Aspirate Sacral (04/09/2024 4:13 AM EXPELLER WORKER) Direct Specimen Exam Stain: Abundant polymorphonuclear leukocytes seen. Abundant Gram Negative Bacilli Few Gram Positive Bacilli Rare Gram Positive Cocci Report Final Report: Abundant Mixed aerobic and anaerobic microorganisms Includes the following: Moderate Bacteroides caccae (.) [facility] Organism MIXED AEROBIC AND ANAEROBIC MICROORGANISMS [facility] Organism BACTEROIDES CACCAE [facility] Aspirate (Sacral) 04/09/2024 4:13 AM EXPELLER WORKER 04/09/2024 9:46 AM EXPELLER WORKER Narrative [facility] - 04/14/2024 2:20 PM EXPELLER WORKER Sacral wound 1 Specimen received in anaerobic transport media. Testing performed by [facility] ([phone]) Specimens submitted from normally sterile body sites will have all bacterial morphotypes identified. Specimens that contain grossly mixed miranda and/or are from body sites that are not normally sterile will be examined for Staphylococcus aureus, Pseudomonas aeruginosa, beta-hemolytic strep, vancomycin-resistant Enterococcus, Bacteroides, Parabacteroides, Clostridium perfringens and fungus. If any of these are isolated, the organism will be reported. Current interpretive data was last revised on 2019. Baldomero Weldon DO LAB MICROBIOLOGY - GENE RAL ORDERABLES Final Result [facility] Department [place] [address] * Transfuse RBC (04/09/2024 4:11 AM EXPELLER WORKER) Blood Tram Miranda MD BLOOD TRANSFUSION ORDERAB LES Final Result Performing Organization Address City/[facility]/ZIP Co de Phone Number [facility] One [facility] [place] [address] * (ABNORMAL) POC Blood Gas and Chemistries, Arterial - (04/09/2024 3:53 AM EXPELLER WORKER) pH, Art POC 7.43 7.35 - 7.45 pCO2, Art POC 35 35 - 45 mmHg [facility] pO2, Art POC 167(H) 83 - 108 mmHg [facility] Na, POC 130(L) 135 - 145 mmol/L [facility] K POC 4.2 3.3 - 4.9 mmol/L [facility] Comment: Interpretive Data Not all point of care methods assess for hemolysis. Confirm with instrument and retest K+ if not consistent with clinical signs and symptoms. Current Interpretive Data was last revised on 2023. Cl, POC 103 97 - 110 mmol/L [facility] Ionized Ca, POC 4.93 4.50 - 5.10 mg/dL [facility] Glucose, POC 188 70 - 199 mg/dL [facility] Lactate, POC 2.9(H) 0.7 - 2.2 mmol/L [facility] SO2 (rony) arterial 100(H) 90 - 95 % [facility] Base excess, POC -0.9 mmol/L [facility] HCO3, Art POC 23 20 - 30 mmol/L [facility] Hct, POC 25.0(L) 41.4 - 51.6 % [facility] Total Hb, POC 8.3(L) 13.8 - 17.2 g/dL [facility] Blood 04/09/2024 3:53 AM EXPELLER WORKER 04/09/2024 3:53 AM EXPELLER WORKER Physician No LAB POCT ORDERABLES - DEVICE Fin al Result Performing Organization Address [facility] de Phone Number [facility] Department [place] [address] * Transfuse RBC (04/09/2024 3:42 AM EXPELLER WORKER) Blood Result [facility] Tram Miranda MD BLOOD TRANSFUSION ORDERAB LES Final Result Performing Organization Address [facility] de Phone Number [facility] [place] [address] * Airway (04/09/2024 3:30 AM EXPELLER WORKER) Narrative Renaldo Trujillo MD - 04/09/2024 3:30 AM EXPELLER WORKER Renaldo Trujillo MD ? 04/09/2024 ??3:30 AM Airway Patient location: OR Urgency: elective Indications for airway management: anesthesia Difficult airway: no Staff: Supervising provider: Tram Miranda MD Placed by: Resident: Renaldo Trujillo MD Emergent airway documentation: Risks and benefits discussed: yes Consent obtained: yes Consent given by: patient Airway prep: Preoxygenated: yes Patient position: sniffing Mask difficulty assessment: 1 - vent by mask Spontaneous ventilation during airway: absent Sedation level during airway: GA Final airway details: Final airway type: endotracheal airway Tube type: ETT ETT size: 8.0 mm Cuffed: yes Technique used for successful ETT placement: video laryngoscopy Insertion site: oral Blade type: Katerina Video blade type: Arredondo Blade size: 4 Cormack-Lehane (video): grade I - full view of glottis Cuff inflated with: air ETT to lips: 23 cm Placement verified by: auscultation and CO2 detection Airway secured with: silk tape Number of attempts: 1 Planned trial extubation: yes Tram Miranda MD ANESTHESIA ORDERABLES Fin al Result * Arterial Line (04/09/2024 3:24 AM EXPELLER WORKER) Narrative Renaldo Trujillo MD - 04/09/2024 3:24 AM EXPELLER WORKER Renaldo Trujillo MD ? 04/09/2024 ??3:29 AM Arterial Line Patient location: OR Indication: continuous blood pressure monitoring and blood sampling needed Ultrasound assisted: yes Staff: Supervising provider: Tram Miranda MD Placed by: Resident: Kaylah Brooke MD Procedure prep: Prep solution: chlorhexadine/alcohol Prep: sterile gloves Arterial line: Catheter size: 4 Djib[place]ian Catheter type: wire-guided catheter Laterality: left Site: radial artery Line secured: tape and Tegaderm Results: good waveform and good blood return Number of attempts: 1 Assessment: Events: patient tolerated procedure well with no complications Tram Miranda MD ANESTHESIA ORDERABLES Artemio pushpa Result - Final * Prepare RBC: 1 Units (04/09/2024 3:12 AM EXPELLER WORKER) Pathologist [facility] Product code [id number] Unit Number [id number] [facility] Product Blood Type OPOS [facility] Dispense Status PRESUMED TRANSFUSED [facility] Blood 04/09/2024 3:12 AM EXPELLER WORKER 04/09/2024 3:12 AM EXPELLER WORKER Narrative [facility] - 04/09/2024 4:00 PM EXPELLER WORKER Are special requirements needed? (All products are leukoreduced and CMV- safe)- >No Date required:-[id number] LRRBC # of [id number] Reasons:-Intra-op transfusion} Tram Miranda MD BLOOD BANK PRODUCT ORDERA BLES Final Result [facility] [place] [address] * (ABNORMAL) POC Blood Gas and Chemistries, Arterial - (04/09/2024 3:09 AM EXPELLER WORKER) pH, Art POC 7.45 7.35 - 7.45 pCO2, Art POC 35 35 - 45 mmHg [facility] pO2, Art POC 78(L) 83 - 108 mmHg [facility] Na, POC 134(L) 135 - 145 mmol/L [facility] K POC 4.1 3.3 - 4.9 mmol/L [facility] Comment: Interpretive Data Not all point of care methods assess for hemolysis. Confirm with instrument and retest K+ if not consistent with clinical signs and symptoms. Current Interpretive Data was last revised on 2023. Cl, POC 104 97 - 110 mmol/L [facility] Ionized Ca, POC 4.88 4.50 - 5.10 mg/dL [facility] Glucose, POC 172 70 - 199 mg/dL [facility] Lactate, POC 1.5 0.7 - 2.2 mmol/L [facility] SO2 (rony) arterial 97(H) 90 - 95 % [facility] Base excess, POC 0.4 mmol/L [facility] HCO3, Art POC 24 20 - 30 mmol/L [facility] Hct, POC 23.0(L) 41.4 - 51.6 % [facility] Total Hb, POC 7.5(L) 13.8 - 17.2 g/dL [facility] Blood 04/09/2024 3:09 AM EXPELLER WORKER 04/09/2024 3:09 AM EXPELLER WORKER Physician No LAB POCT ORDERABLES - DEVICE Fin al Result [facility] [place] [address] * Check Sample (04/09/2024 2:42 AM EXPELLER WORKER) ABO Rh O Positive [facility] HCLL OTHER 04/09/2024 2:42 AM EXPELLER WORKER 04/09/2024 3:23 AM EXPELLER WORKER Hi Shah MD LAB BLOOD ORDERABLES Fin al Result [facility] [place] [address] [facility] * [place] CRITICAL CARE ILL/INJURED PATIENT INIT 30-74 MIN (04/09/2024 2:24 AM EXPELLER WORKER) Narrative Hi Shah MD - 04/09/2024 2:24 AM EXPELLER WORKER Hi Shah MD ? 04/09/2024 ??2:24 AM Critical Care Performed by: Hi Shah MD Authorized by: Hi Shah MD ?? Critical care provider statement: As reflected in the history, physical exam, orders, notes, and/or MDM, I was personally present while the patient was critically ill and provided critical care services for 45 minutes, excluding time involved in separately billable procedures. ??Critical care was necessary to treat or prevent imminent or life-threatening deterioration of the following condition(s): ?? unstable vital signs ?? lactic acidosis ?? sepsis and skin/soft tissue infection ??Critical care was time spent by me providing the following: ? continuous pulse oximetry, continuous telemetry and resuscitation with fluids ?? initiation and active titration of vasoactive medications ?? empiric broad coverage antibiotics ?? I provided emergent necessary critical care medicine services to this patient. I ordered and reviewed test results and/or imaging studies. I spent time discussing the management of this critically ill patient with consultants and the medical staff. I spent time documenting in the medical record. I admitted this patient to an Intensive Care unit (ICU) and discussed management with the admitting team. I admitted this patient to a continuous cardiac monitored bed. I spent time discussing the management and therapeutic options for this critically ill patient with the patient themselves or with the appropriate designated surrogate decision-maker. us Hi Shah MD IN CLINIC/BEDSIDE ORDERA BLES Final Result * (ABNORMAL) ECG 12 lead (04/09/2024 2:20 AM EXPELLER WORKER) Narrative [facility] - 04/09/2024 2:20 AM EXPELLER WORKER Girish Bray MD ? 04/09/2024 ??2:26 AM ECG 12 lead Date/Time: 04/09/2024 2:20 AM Performed by: Girish Bray MD Authorized by: Arron Lambert MD ?? Rate: ??ECG rate: ??126 ??ECG rate assessment: tachycardic ?? Rhythm: ??Rhythm: atrial fibrillation ?? Ectopy: ??Ectopy: none ?? QRS: ??QRS axis: ??Normal ??QRS intervals: ??Wide Conduction: ??Conduction: abnormal ?Abnormal conduction: complete RBBB ?? T waves: ??T waves: inverted ?Inverted: ??V1 and V2 Previous ECG: ??Previous ECG: ??Compared to current ??Date of previous ECG: ??06/28/2019 ??Comparison ECG info: ??AF w RVR w/ aberrancy ??Similarity: ??Changes noted Interpretation: ??Interpretation: abnormal ?? Recommended Follow-up: ??Recommended follow up: further workup in the ED ?? us Arron Lambert MD ECG ORDERABLES Final Res ult Performing Organization Address [facility] de Phone Number [facility] * Prepare RBC: 2 Units (04/09/2024 2:10 AM EXPELLER WORKER) Pathologist [facility] Product code [id number] Unit Number [id number] [facility] Product Blood Type OPOS [facility] Dispense Status PRESUMED TRANSFUSED [facility] Blood 04/09/2024 2:10 AM EXPELLER WORKER 04/09/2024 2:10 AM EXPELLER WORKER Narrative [facility] - 04/09/2024 8:00 PM EXPELLER WORKER Specify Procedure:->Wound debridement Are special requirements needed? (All products are leukoreduced and CMV- safe)- >No Date required:-[id number] LRRBC # of [id number] Reasons:-Hold for procedure (specify procedure)} us Hi Shah MD BLOOD BANK PRODUCT ORDER EVY Final Result Performing Organization Address [facility] de Phone Number [facility] [place] [address] * (ABNORMAL) Urinalysis reflex to microscopic and culture Urine (04/09/2024 1:26 AM EXPELLER WORKER) Color, ur Yellow Yellow Clarity, ur Clear Clear [facility] Specific gravity, ur 1.042(H) 1.003 - 1.030 [facility] pH, urine 6.0 [facility] Comment: Interpretive Data ? Urine pH is affected by diet, medications, systemic acid-base disturbances, and renal tubular function. ??pH may affect urinary stone formation. ??For example, urine pH below 6.0 may help reduce the tendency for calcium phosphate stones and pH greater than 6.0 may reduce the tendency for uric acid stone formation. Source: [email or web address] Current Interpretive Data was last revised on 2017 Protein, ur ql 1+(A) Negative [facility] Glucose, ur ql Negative Negative [facility] Ketones, ur Trace Negative [facility] Bilirubin, ur Negative Negative [facility] Blood, ur Negative Negative [facility] Urobilinogen, ur <2.0 <2.0 mg/dL [facility] Nitrite, ur Negative Negative [facility] Leukocyte esterase, ur 2+(A) Negative [facility] UA reflex comment Reflex to microscopic UA will be performed. [facility] Urine 04/09/2024 1:26 AM EXPELLER WORKER 04/09/2024 1:56 AM EXPELLER WORKER Arron Lambert MD LAB MICROBIOLOGY - GENERA L ORDERABLES Final Result [facility] Department [place] [address] * (ABNORMAL) Urinalysis, microscopic only (04/09/2024 1:26 AM EXPELLER WORKER) WBC, ur 21-50(A) 0 - 5 /HPF RBC, ur 0-2 0 - 2 /HPF [facility] Epithelial cells, squamous, ur 1-5 0 - 5 /HPF [facility] Bacteria, ur Trace(A) [facility] Yeast, ur TRACE [facility] Mucous, ur Present(A) [facility] Culture Reflex Comment Reflex to urine culture will be performed. [facility] Urine 04/09/2024 1:26 AM EXPELLER WORKER 04/09/2024 1:56 AM EXPELLER WORKER Arron Lambert MD LAB URINE ORDERABLES Judy l Result Performing Organization Address [facility] Co de Phone Number [facility] Department [place] [address] * Urine culture Urine (04/09/2024 1:26 AM EXPELLER WORKER) Report Final Report: Less than 100,000 colonies/mL (clinically insignificant growth based on current clinical standards) Organism (CLINICALLY INSIGNIFICANT GROWTH [facility] Urine 04/09/2024 1:26 AM EXPELLER WORKER 04/09/2024 3:35 AM EXPELLER WORKER Narrative [facility] - 04/10/2024 5:52 AM EXPELLER WORKER Urine culture reflexed based upon urinalysis results. Testing performed by [facility] ([phone]) Arron Lambert MD LAB MICROBIOLOGY - GENERA L ORDERABLES Final Result Performing Organization Address [facility] de Phone Number [facility] Department [place] [address] * XR Chest 1 View (04/09/2024 12:57 AM EXPELLER WORKER) Anatomical Region Laterality Modality Body, Chest N/A Computed Radiogr aphy 04/09/2024 1:01 AM EXPELLER WORKER Impressions 04/09/2024 10:01 AM EXPELLER WORKER Comparison to recent CT of the pelvis from 04/08/2024. Right internal jugular central venous catheter with tip overlying the superior cavoatrial junction. Small lung volumes with mild bibasilar atelectasis. Small bilateral pleural effusions are better characterized on CT. No pneumothorax. Cardiomediastinal silhouette is upper limits of normal. Dictated by: Nael Brooke M.D. The radiology attending physician has personally reviewed this study, and had reviewed and/or edited this written report and agrees with it. Electronically signed by: Rebel Dey M.D. Narrative 04/09/2024 10:01 AM EXPELLER WORKER EXAMINATION: 1 view chest radiograph Procedure Note Raptis, Erbel A., MD - 04/09/2024 EXAMINATION: 1 view chest radiograph IMPRESSION: Comparison to recent CT of the pelvis from 04/08/2024. Right internal jugular central venous catheter with tip overlying the superior cavoatrial junction. Small lung volumes with mild bibasilar atelectasis. Small bilateral pleural effusions are better characterized on CT. No pneumothorax. Cardiomediastinal silhouette is upper limits of normal. Dictated by: Nael Brooke M.D. The radiology attending physician has personally reviewed this study, and had reviewed and/or edited this written report and agrees with it. Electronically signed by: Rebel Dey M.D. Arron Lambert MD IMG XR PROCEDURES Final R esult * MRSA Only (Staphylococcus aureus) Culture Nasal (04/09/2024 12:40 AM EXPELLER WORKER) Report Final Report: Negative Nasal 04/09/2024 12:4 0 AM EXPELLER WORKER 04/09/2024 1:00 AM EXPELLER WORKER Narrative [facility] - 04/10/2024 7:59 AM EXPELLER WORKER Testing performed by [facility] ([phone]). Arron Lambert MD LAB MICROBIOLOGY - GENERA L ORDERABLES Final Result [facility] Department [place] [address] * CT Body Outside Consult (04/09/2024 12:36 AM EXPELLER WORKER) Anatomical Region Laterality Modality Body N/A Computed Tomogra phy 04/09/2024 12:5 5 AM EXPELLER WORKER Impressions 04/09/2024 10:02 AM EXPELLER WORKER 1. ??Extensive soft tissue gas with collections of mixed fluid and gas, extending from the cutaneous surface at the S3 level anteriorly into the right perirectal fat and perianal space as well as inferiorly into the right perineum. Findings are most consistent with necrotizing soft tissue infection. Locules of gas within the coccyx, suggesting component of osteomyelitis. 2. ??Submucosal thickening of the rectum and anus, likely reactive proctitis and anusitis. Of note, the collection abuts the rectum and anus. 3. ??Ahmadi catheter decompressing the urinary bladder, which is markedly thickened. Along with left distal periureteral stranding, this is suggestive of cystitis with ascending urinary tract infection. Correlation with urinalysis is recommended. The findings, conclusions and recommendations within this report do not replace the initial findings, conclusions ??and recommendations made at the facility where the study was performed based upon the imaging and clinical condition at that time. ??Comparison with the prior report and clinical history is necessary. ??The provided images may or may not represent the [place] source data set and thus may contain changes that may lower the accuracy of this second-opinion interpretation. Dictated by: Nael Brooke M.D. The radiology attending physician has personally reviewed this study, and had reviewed and/or edited this written report and agrees with it. Electronically signed by: Rebel Dey M.D. Narrative 04/09/2024 10:02 AM EXPELLER WORKER EXAMINATION: RADIOLOGY CONSULTATION ON OUTSIDE IMAGING STUDY STUDY INITIALLY PERFORMED: 04/08/2024 at [facility] [place]. TYPE OF STUDY: Multiple CT images of the abdomen and pelvis with contrast are provided at the time of this interpretation. CONTRAST ROUTE: Contrast was administered via the intravenous route. The protocol was adequate to address the clinical question. The outside final report was not available at the time of this second opinion interpretation. TYPE OF CONSULTATION: Consult on outside imaging study with images submitted through Outside Image Sharing Service DATE OF CONSULTATION: 04/09/2024 12:39 AM HISTORY: Chronic wounds with gas in the perineum wound COMPARISON: None available. FINDINGS: Small bilateral pleural effusions with associated basilar atelectasis. Heart size is upper limits of normal with multivessel coronary artery calcifications. No pericardial effusion. Small hiatal hernia. No suspicious liver lesion. Cholelithiasis without CT evidence of cholecystitis. Pancreas, spleen, right adrenal gland within normal limits. Indeterminate left adrenal nodule measuring 2.1 cm (/). No hydronephrosis or suspicious renal lesion. Stranding surrounding the left ureter. Ahmadi catheter within the urinary bladder, which is thick-walled. Enlarged prostate. Wound posterior to the sacrum extending to the right gluteal musculature with numerous locules of gas, involving the coccyx and extending anteriorly into the posterior perirectal fascia with a fluid and gas component that is rim-enhancing and measures up to 4.7 x 2.7 cm. This collection abuts the anorectal junction with mild circumferential submucosal thickening. This collection extends inferiorly along the right gluteal cleft into the right perineum, abutting the right aspect of the anus and anal verge. No aggressive osseous lesion. Atherosclerosis of the abdominal aorta without aneurysmal dilatation. Multilevel degenerative changes of the spine. Rounded lymph node along the inferior mesenteric vein measuring up to 1.1 cm short axis, likely reactive (3/150). Diffuse anasarca, primarily in the left body wall. Procedure Note Rebel Dey MD - 04/09/2024 EXAMINATION: RADIOLOGY CONSULTATION ON OUTSIDE IMAGING STUDY STUDY INITIALLY PERFORMED: 04/08/2024 at [facility] [place]. TYPE OF STUDY: Multiple CT images of the abdomen and pelvis with contrast are provided at the time of this interpretation. CONTRAST ROUTE: Contrast was administered via the intravenous route. The protocol was adequate to address the clinical question. The outside final report was not available at the time of this second opinion interpretation. TYPE OF CONSULTATION: Consult on outside imaging study with images submitted through Outside Image Sharing Service DATE OF CONSULTATION: 04/09/2024 12:39 AM HISTORY: Chronic wounds with gas in the perineum wound COMPARISON: None available. FINDINGS: Small bilateral pleural effusions with associated basilar atelectasis. Heart size is upper limits of normal with multivessel coronary artery calcifications. No pericardial effusion. Small hiatal hernia. No suspicious liver lesion. Cholelithiasis without CT evidence of cholecystitis. Pancreas, spleen, right adrenal gland within normal limits. Indeterminate left adrenal nodule measuring 2.1 cm (/67). No hydronephrosis or suspicious renal lesion. Stranding surrounding the left ureter. Ahmadi catheter within the urinary bladder, which is thick-walled. Enlarged prostate. Wound posterior to the sacrum extending to the right gluteal musculature with numerous locules of gas, involving the coccyx and extending anteriorly into the posterior perirectal fascia with a fluid and gas component that is rim-enhancing and measures up to 4.7 x 2.7 cm. This collection abuts the anorectal junction with mild circumferential submucosal thickening. This collection extends inferiorly along the right gluteal cleft into the right perineum, abutting the right aspect of the anus and anal verge. No aggressive osseous lesion. Atherosclerosis of the abdominal aorta without aneurysmal dilatation. Multilevel degenerative changes of the spine. Rounded lymph node along the inferior mesenteric vein measuring up to 1.1 cm short axis, likely reactive (3/150). Diffuse anasarca, primarily in the left body wall. IMPRESSION: 1. Extensive soft tissue gas with collections of mixed fluid and gas, extending from the cutaneous surface at the S3 level anteriorly into the right perirectal fat and perianal space as well as inferiorly into the right perineum. Findings are most consistent with necrotizing soft tissue infection. Locules of gas within the coccyx, suggesting component of osteomyelitis. 2. Submucosal thickening of the rectum and anus, likely reactive proctitis and anusitis. Of note, the collection abuts the rectum and anus. 3. Ahmadi catheter decompressing the urinary bladder, which is markedly thickened. Along with left distal periureteral stranding, this is suggestive of cystitis with ascending urinary tract infection. Correlation with urinalysis is recommended. The findings, conclusions and recommendations within this report do not replace the initial findings, conclusions and recommendations made at the facility where the study was performed based upon the imaging and clinical condition at that time. Comparison with the prior report and clinical history is necessary. The provided images may or may not represent the [place] source data set and thus may contain changes that may lower the accuracy of this second-opinion interpretation. Dictated by: Nael Brooke M.D. The radiology attending physician has personally reviewed this study, and had reviewed and/or edited this written report and agrees with it. Electronically signed by: Rebel Dey M.D. [facility] Ramonita Bray MD IMG CT PROCEDURES Final Result * XR Outside Reference (04/09/2024 12:34 AM EXPELLER WORKER) Impressions [facility] - 04/09/2024 12:34 AM EXPELLER WORKER These images are for Reference purposes only and have not been reviewed by [facility]. ??There will be no report generated by a [facility]. Narrative [facility] - 04/09/2024 12:34 AM EXPELLER WORKER EXAMINATION: ??Images For Reference Purposes Only us Girish Bray MD IMG XR PROCEDURES Final Result Performing Organization Address [facility] de Phone Number [email or web address] * (ABNORMAL) Sepsis Lactate w/ Reflex (04/09/2024 12:33 AM EXPELLER WORKER) Sepsis Lactate 2.4(H) 0.7 - 2.0 mmol/L Blood 04/09/2024 12:3 3 AM EXPELLER WORKER 04/09/2024 12:42 AM EXPELLER WORKER us Arron Lambert MD LAB BLOOD ORDERABLES Judy l Result Performing Organization Address [facility] de Phone Number [facility] Department [place] [address] * eGFR (04/09/2024 12:33 AM EXPELLER WORKER) eGFR 60 >=60 mL/min/1. 73 m2 Comment: Interpretive Data Reference Interval Normal ?>/= 90 mL/min/1.73m2 Mildly decreased* ? 60 - 89 mL/min/1.73m2 Mildly to moderately decreased ?45 - 59 mL/min/1.73m2 Moderately to severely decreased ??30 - 44 mL/min/1.73m2 Severely decreased ?15 - 29 mL/min/1.73m2 Kidney Failure ?< 15 ??mL/min/1.73m2 *Relative to young adult level Estimated glomerular filtration rate is determined by the 2020 CKD-EPI equation recommended by the National Kidney Foundation (A Unifying Approach to GFR Estimation: Recommendations of the NKF-ASK Task Force on Reassessing the Inclusion of Race in Diagnosing Kidney Disease, JASN 202). The CKD-EPI equation should not be used for patients with unstable renal function and has not been validated in children and those over 70. Current interpretive data was last reviewed 2021. Blood 04/09/2024 12:3 3 AM EXPELLER WORKER 04/09/2024 12:56 AM EXPELLER WORKER us Arron Lambert MD LAB BLOOD ORDERABLES Judy l Result [facility] Department [place] [address] * (ABNORMAL) Differential, auto (04/09/2024 12:33 AM EXPELLER WORKER) Neutrophil abs 18.7(H) 1.5 - 6.5 K/cumm Imm gran abs 0.8(H) 0.0 - 0.1 K/cumm [facility] Lymphocyte abs 1.0 0.8 - 3.3 K/cumm [facility] Monocyte abs 1.1(H) 0.2 - 0.8 K/cumm [facility] Eosinophil abs 0.0 0.0 - 0.5 K/cumm [facility] Basophil abs 0.0 0.0 - 0.1 K/[facility]umm [facility] Neutrophil pct 86.2 % [facility] Comment: Interpretive Data Percent cell count reference ranges are not reported, since discordance with absolute values may lead to misinterpretation of CBC data. Current Interpretive Data was last revised on 2017. Imm gran pct 3.6 % [facility] Comment: Interpretive Data Percent cell count reference ranges are not reported, since discordance with absolute values may lead to misinterpretation of CBC data. Current Interpretive Data was last revised on 2017. Lymphocyte pct 4.8 % [facility] Comment: Interpretive Data Percent cell count reference ranges are not reported, since discordance with absolute values may lead to misinterpretation of CBC data. Current Interpretive Data was last revised on 2017. Monocyte pct 5.2 % [facility] Comment: Interpretive Data Percent cell count reference ranges are not reported, since discordance with absolute values may lead to misinterpretation of CBC data. Current Interpretive Data was last revised on 2017. Eosinophil pct 0.0 % [facility] Comment: Interpretive Data Percent cell count reference ranges are not reported, since discordance with absolute values may lead to misinterpretation of CBC data. Current Interpretive Data was last revised on 2017. Basophil pct 0.2 % [facility] Comment: Interpretive Data Percent cell count reference ranges are not reported, since discordance with absolute values may lead to misinterpretation of CBC data. Current Interpretive Data was last revised on 2017. Blood 04/09/2024 12:3 3 AM EXPELLER WORKER 04/09/2024 12:56 AM EXPELLER WORKER Arron Lambert MD LAB BLOOD ORDERABLES Judy l Result Performing Organization Address City/[facility]/ZIP Co de Phone Number [facility] Department [place] [address] * POCT glucose (04/09/2024 12:33 AM EXPELLER WORKER) [facility] Glucose, POC 127 70 - 199 mg/dL Blood 04/09/2024 12:3 3 AM EXPELLER WORKER 04/09/2024 12:33 AM EXPELLER WORKER Hi Shah MD LAB POCT ORDERABLES - DE VICE Final Result Performing Organization Address [facility]/ZIP Co de Phone Number [facility] [place] [address] * (ABNORMAL) CBC with auto differential (04/09/2024 12:33 AM EXPELLER WORKER) [facility] WBC 21.7(H) 3.8 - 9.9 K/cumm Hgb 7.7(L) 13.0 - 17.5 g/dL [facility] Hct 23.8(L) 38.9 - 50.3 % [facility] Plt 274 150 - 400 K/cumm [facility] MPV 9.9 9.1 - 12.3 fL [facility] RBC 2.57(L) 4.30 - 5.80 M/cumm [facility] MCV 92.6 81.3 - 96.4 fL [facility] MCH 30.0 27.1 - 33.3 pg [facility] MCHC 32.4 32.3 - 35.7 g/dL [facility] RDW CV 17.9(H) 11.1 - 14.9 % [facility] RDW SD 59.6(H) 35.7 - 48.1 fL [facility] NRBC abs 0.00 0.00 - 0.01 K/cumm [facility] Blood 04/09/2024 12:3 3 AM EXPELLER WORKER 04/09/2024 12:56 AM EXPELLER WORKER us Arron Lambert MD LAB BLOOD ORDERABLES Judy sharpe Result [facility] [place] [address] * (ABNORMAL) Blood culture Blood Peripheral (04/09/2024 12:33 AM EXPELLER WORKER) Pathologist [facility] Direct Specimen Exam Molecular Analysis: Presumptive Escherichia coli detected by [employer] BCID-GN panel. This test does not exclude the possibility of a mixed bacterial infection. CTX-M Extended Spectrum Beta-Lactamase (ESBL) detected. Carbapenem antibiotics are the recommended treatment for ESBL-producing isolates. Patients infected with ESBL-producing organisms require contact isolation precautions. Correlation with susceptibility testing is recommended. Notification of: Presumptive Escherichia coli CTX-M Extended Spectrum Beta-Lactamase (ESBL) called to and read back by: Devora Perez NP [phone] on 04/09/2024 15:08:59 by: Jv Burgess [place] Direct Specimen Exam Stain: Gram Negative Bacilli Time to culture positivity (anaerobic media): 11.4 hours Time to culture positivity (aerobic media): 13.2 hours Notification of: Gram Negative Bacilli called to and read back by: Devora Perez NP [phone] on 04/09/2024 13:27:11 by: Jv Burgess MT [facility] Report Final Report: Escherichia coli The susceptibility pattern of this Escherichia coli indicates the possible production of an extended spectrum beta lactamase (ESBL). ??Patients infected with ESBL-producing organisms require contact isolation precautions. ??For therapeutic options for this organism, please contact infectious diseases. (.) [facility] Organism ESCHERICHIA COLI [facility] Blood (Peripheral) 04/09/2024 12:33 AM EXPELLER WORKER 04/09/2024 1:29 AM EXPELLER WORKER Narrative [facility] - 04/12/2024 4:22 PM EXPELLER WORKER From a different site than #1. Draw Blood cultures before administration of Antibiotics Collection->Peripheral 1. ?Blood cultures are incubated for 4 days on a continuously monitored blood culture system. The first report of a negative culture is issued within 24 hours of receipt of the specimen in the laboratory. 2. ?Positive culture results are reported as soon as they are detected. 3. ?The most important factor for detection of microbes in the setting of bloodstream infection is the volume of blood submitted for culture. Failure to collect an optimal blood volume can result in false negative blood cultures. 4. ? For pediatric patients, the recommended blood volume to collect follows a weight based strategy. See the electronic test catalog for collection instructions. 5. ?For positive blood cultures, a rapid molecular test may be performed for organism identification using the [employer] blood culture identification panel for gram positive (BCID-GP) and gram negative (BCID-GN) organisms. This nucleic acid amplification test detects microbial DNA in positive blood culture broth. This assay has been cleared by the [place] Food and Drug Administration and its performance characteristics have been verified by the [facility]. For questions about this culture, contact the Microbiology Laboratory at [phone]. Interpretive data was last revised on 24. Organism Antibiotic Method Susceptibility Escherichia coli Ampicillin INTERPRETATION Resistant Escherichia coli Cefazolin INTERPRETATION Resistant Escherichia coli Gentamicin INTERPRETATION Susceptible Escherichia coli Ampicillin with Sulbactam INTERPRETAT ION Resistant Escherichia coli Trimethoprim with Sulfamethoxazole IN TERPRETATION Intermediate Escherichia coli Meropenem INTERPRETATION Susceptible Escherichia coli Cefepime INTERPRETATION Resistant Escherichia coli Ciprofloxacin INTERPRETATION Susceptible Escherichia coli Ceftazidime INTERPRETATION Resistant Escherichia coli Ceftriaxone INTERPRETATION Resistant Escherichia coli Piperacillin/Tazobactam INTERPRETATIO N Resistant Escherichia coli Amikacin INTERPRETATION Susceptible Escherichia coli Aztreonam INTERPRETATION Resistant Escherichia coli Imipenem INTERPRETATION Susceptible Escherichia coli Ertapenem INTERPRETATION Susceptible Escherichia coli Minocycline INTERPRETATION Susceptible Escherichia coli Tobramycin INTERPRETATION Susceptible Escherichia coli Levofloxacin INTERPRETATION Susceptible Escherichia coli Doxycycline INTERPRETATION Susceptible Arron Lambert MD LAB MICROBIOLOGY - GENERA L ORDERABLES Final Result Performing Organization Address [facility] de Phone Number [facility] [email or web address] [address] * aPTT (04/09/2024 12:33 AM EXPELLER WORKER) aPTT 28 28 - 38 sec Comment: Interpretive Data Heparin therapeutic range: 66.0 - 100.0 seconds. Range based on correlation with therapeutic heparin activity range of 0.3 - 0.7 Units/mL. Current interpretive data was last revised on 2022. Blood 04/09/2024 12:3 3 AM EXPELLER WORKER 04/09/2024 12:43 AM EXPELLER WORKER Arron Lambert MD LAB BLOOD ORDERABLES Judy l Result Performing Organization Address [facility] de Phone Number [email or web address] [address] * (ABNORMAL) Protime-INR (04/09/2024 12:33 AM EXPELLER WORKER) PT 25.1(H) 9.7 - 13.0 sec INR 2.29(H) 0.90 - 1.20 [facility] Comment: Interpretive data Oral anticoagulant therapeutic ranges: Venous thromboembolism prophylaxis or treatment: 2.0-3.0 CARDIOLOGY Standard range: 2.0-3.0 High-intensity range: 2.5-3.5 Refer to indication-specific guidelines for appropriate target ranges for prosthetic heart valve replacement. Current interpretive data was last revised on 2019. Blood 04/09/2024 12:3 3 AM EXPELLER WORKER 04/09/2024 12:43 AM EXPELLER WORKER Result [facility] Arron Lambert MD LAB BLOOD ORDERABLES Judy l Result Performing Organization Address [facility] Co de Phone Number [facility] [place] [address] * Type and screen (04/09/2024 12:33 AM EXPELLER WORKER) Pathologist [facility] ABO Rh O Positive Brandy, indirect Negative [facility] Blood 04/09/2024 12:3 3 AM EXPELLER WORKER 04/09/2024 1:51 AM EXPELLER WORKER Narrative [facility] - 04/09/2024 2:40 AM EXPELLER WORKER Has the patient had Daratumumab or Isatuximab in the past 6 months?->Unknown Result [facility] Arron Lambert MD LAB BLOOD BANK TEST ORDER EVY Final Result Performing Organization Address [facility] de Phone Number [email or web address] [address] * (ABNORMAL) Hemoglobin A1c (04/09/2024 12:33 AM EXPELLER WORKER) Pathologist [facility] Hgb A1C 6.7(H) 4.0 - 5.6 % Estimated Average Glucose 146 mg/dL [facility] Comment: The ADA recommends reporting an estimated Average Glucose (eAG) with all Hemoglobin A1c results using the equation derived from a study of 507 normal and diabetic adults. ??Minority populations were underrepresented and children were not included. ?? (Diabetes Care 2020; 43(S1): S66-S76). ??The eAG is not equivalent to a fasting glucose. Blood 04/09/2024 12:3 3 AM EXPELLER WORKER 04/09/2024 1:08 AM EXPELLER WORKER Result [facility] Baldomero Weldon DO LAB BLOOD ORDERABLES Fi nal Result Performing Organization Address [facility]/ZIP Co de Phone Number [email or web address] [place] [address] * Blood gas, venous (04/09/2024 12:33 AM EXPELLER WORKER) pH, Venous 7.38 7.32 - 7.43 PCO2, Venous 46 40 - 50 mmHg [facility] PO2, Venous 28 mmHg [facility] Comment: Interpretive Data No Reference Range Established Current Interpretive Data was last revised on 2017. HCO3 Venous, Calculated 28 20 - 30 mmol/L [facility] BE, venous 2 mmol/L [facility] Comment: Interpretive Data No Reference Range Established Current Interpretive Data was last revised on 2017. Blood 04/09/2024 12:3 3 AM EXPELLER WORKER 04/09/2024 12:42 AM EXPELLER WORKER us Arron Lambert MD LAB BLOOD ORDERABLES Judy l Result [facility] [place] [address] * (ABNORMAL) Comprehensive metabolic panel (04/09/2024 12:33 AM EXPELLER WORKER) Sodium 133(L) 135 - 145 mmol/L Potassium, pl 4.1 3.3 - 4.9 mmol/L [facility] Chloride 100 97 - 110 mmol/L [facility] CO2 25 22 - 32 mmol/L [facility] Anion gap 8 2 - 15 mmol/L [facility] BUN 31(H) 6 - 25 mg/dL [facility] Creatinine 1.25 0.80 - 1.30 mg/dL [facility] Glucose 114 70 - 199 mg/dL [facility] Comment: Interpretive Data Fasting glucose >/= 126 mg/dl is diagnostic for diabetes. ?? Fasting is defined as no caloric intake for at least 8 hours. Fasting glucose between 100 mg/dl to 125 mg/dl is diagnostic of prediabetes. In a patient with classic symptoms of hyperglycemia or hyperglycemic crisis, a random glucose >/= 200 mg/dl is diagnostic for diabetes. In the absence of unequivocal hyperglycemia, results should be confirmed by repeat testing. The classification and Diagnosis of Diabetes Diabetes Care 2022; 46: S19-S40. Current interpretive data was last revised 2022. Calcium 8.3(L) 8.5 - 10.3 mg/dL [facility] Bilirubin, total 0.7 0.1 - 1.2 mg/dL [facility] Protein, pl 6.2(L) 6.5 - 8.5 g/dL [facility] Albumin 1.9(L) 3.5 - 5.0 g/dL [facility] Alk phos 386(H) 40 - 130 Units/L [facility] ALT 59(H) 7 - 55 Units/L [facility] AST 58(H) 10 - 50 Units/L [facility] Blood 04/09/2024 12:3 3 AM EXPELLER WORKER 04/09/2024 12:56 AM EXPELLER WORKER Arron Lambert MD LAB BLOOD ORDERABLES Judy l Result Performing Organization Address [facility]/ZIP Co de Phone Number [facility] [place] [address] * XR Outside Reference (04/09/2024 12:21 AM EXPELLER WORKER) Impressions [facility] - 04/09/2024 12:21 AM EXPELLER WORKER These images are for Reference purposes only and have not been reviewed by [facility]. ??There will be no report generated by a [facility]. Narrative [facility] - 04/09/2024 12:21 AM EXPELLER WORKER EXAMINATION: ??Images For Reference Purposes Only Arron Lambert MD IMG XR PROCEDURES Final R esult Performing Organization Address City/[facility]/ZIP Co de Phone Number [email or web address] * Cardiology Document Scan (03/27/2024 3:07 PM EXPELLER WORKER) Anatomical Region Laterality Modality Other us Jono Nix MD [facility] PROCEDURES Final Result * Cardiology Document Scan (03/24/2024 3:05 PM EXPELLER WORKER) Anatomical Region Laterality Modality Other Ro Carr MD [facility] CARDIAC SERVICES PROCEDU RES Final Result from Last 3 Months Additional Health Concerns Infection Onset Date Last Indicated Resolved Time 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 Insurance [facility] Advance Directives For more information, please contact: [phone] * Comfort Care Only - DO NOT Resuscitate (Latest Code Status on File) Date Activated Date Inactivated Comments 04/11/2024 1:55 PM * Full Code Date Activated Date Inactivated Comments 04/09/2024 4:53 AM 04/11/2024 1:55 PM * Full Code Date Activated Date Inactivated Comments 02/03/2021 9:58 AM 02/04/2021 4:50 AM Care 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 Relationship Specialty Start Date End Date Darlene Gardner MD [address] [place] [address] PCP - General 07/01/16 Feroz Carty MD [address] [place] [address] [place] [address] PCP - Hospice Attending 04/11/24 Kev Dey MD [address] [facility] [place] [address] Referring Physician Nephrology 05/10/19 Amelia Rodrigez DPM [address] [place] [id number] Consulting Physician Foot and Ankle Surg 06/28/19 Meghan Cordero MD [address] [place] [address] Referring Physician Dermatology 06/02/21 Dennys Coates MD [address] [place] [address] [place] [address] Consulting Physician Dermatology 06/02/21 Darlene Velasquez MD [address] [place], [place] [id number] Consulting Physician Cardiology 06/02/21
--- OUTSIDE RECORDS SUMMARY | 2024-04-15 05:57 | XMS_ITS | Continuity of Care Document ---
Author [facility] Address [address] [place] [address] Care Team Providers Care [employer] Name Role Phone Erwin Gardner MD Attending Provider Elda Hare MD Attending Provider Erwin Gardner MD Primary Care Provider Edelmira Hawk APRN Attending Provider Isabela Rock APRN Emergency Provider Devora Wallace PA-C Emergency Provider Joann Sifuentes MD Admit Provider Rhys Lopez MD Other Provider [phone] Gail Rothman PA-C Attending Provider Care Teams Patient Care Team Team Status: Active Member Role Status Dates Erwin Gardner MD Primary Care Provider Active Visit Care Team Team Status: Inactive Member Role Status Dates Elda Hare MD Attending Provider Active Erwin Gardner MD Referring Provider Active Visit Care Team Team Status: Inactive Member Role Status Dates Erwin Gardner MD Attending Provider, Referring P rovider Active Visit Care Team Team Status: Inactive Member Role Status Dates Erwin Gardner MD Attending Provider, Referring P rovider Active Visit Care Team Team Status: Inactive Member Role Status Dates Edelmira Hawk APRN Attending Provider Active Erwin Gardner MD Referring Provider Active Visit Care Team Team Status: Inactive Member Role Status Dates Erwin Gardner MD Primary Care Provider Active Isabela Rock APRN Emergency Provider Active Visit Care Team Team Status: Inactive Member Role Status Dates Erwin Gardner MD Primary Care Provider Active Devora Wallace PA-C Emergency Provider Active Joann Sifuentes MD Admit Provider Active Rhys Lopez MD Other Provider Active Gail Rothman PA-C Attending Provider Active Visit Care Team Team Status: Inactive Member Role Status Dates Erwin Gardner MD Primary Care Provider, Attendin g Provider Active Chief Complaint and Reason for Visit Chief Complaint Admit Date Sick visit (adolescent/adult) August 25, 2023 8:23am Diabetes Type 2 September 14, 2023 2:19 pm S81.809A unsp open wound, unsp lower leg November 01, 2023 8:38am Hypertension November 22, 2023 9: 22am Diabetes Type 2 January 15, 2024 1 0:44am foot wounds January 22, 2024 1 0:43am Acute UTI, Lower extremity weakness Margoth jones 2023 8:34pm Reason for Visit Admit Date Cellulitis August 25, 2023 8:23a m Skin lesion August 25, 2023 8:23a m Skin ulceration August 25, 2023 8:23a m Illness August 25, 2023 8:23a m BMI greater than 40 September 14, 2023 2:19 pm Diabetic neuropathy September 14, 2023 2:19 pm Dietary counseling and surveillance September 14, 2023 2:19pm Diminished pulses in lower extremity Crow 2023 2:19pm Hyperlipidemia LDL goal <100 September 14, 2023 2:19pm [id number] September 14, 2023 2:19 pm Vitamin D deficiency September 14, 2023 2:1 9pm Afib November 22, 2023 9: 22am ASHD (arteriosclerotic heart disease) Au 2023 9:22am CHF (congestive heart failure) November 212023 9:22am CKD (chronic kidney disease) stage 4, GF R 15-29 ml/min November 22, 2023 9:22am Diabetes mellitus November 22, 2023 9: 22am Diabetic neuropathy November 22, 2023 9: 22am HTN (hypertension) November 22, 2023 9: 22am MGUS (monoclonal gammopathy of unknown s ignificance) November 22, 2023 9:22am PAD (peripheral artery disease) November 022023 9:22am [id number] November 22, 2023 9: 22am Vitamin D deficiency November 22, 2023 9 :22am BMI greater than 40 January 15, 2024 1 0:44am Diabetic neuropathy January 15, 2024 1 0:44am Dietary counseling and surveillance Octo 2023 10:44am Diminished pulses in lower extremity Oct gabe 2023 10:44am Hyperlipidemia LDL goal <100 January 10:44am [id number] January 15, 2024 1 0:44am Vitamin D deficiency January 15, 2024 10:44am Acute UTI February 11, 2024 8:34pm Adrenal nodule February 11, 2024 8:34pm Atrial fibrillation February 11, 2024 8:34pm Chronic anticoagulation February 10, 2 024 8:34pm Chronic kidney disease, stage 4 (severe) February 11, 2024 8:34pm Diarrhea February 11, 2024 8:34pm Hypertension February 11, 2024 8:34pm Insulin dependent type 2 diabetes [facility] February 11, 2024 8:34pm Mild dehydration February 11, 2024 8:34pm Nonischemic cardiomyopathy February 8:34pm Pancreatic cyst February 11, 2024 8:34pm Pulmonary nodule February 11, 2024 8:34pm Sepsis February 11, 2024 8:34pm Urinary tract infection February 10, 2 024 8:34pm Weakness of both lower extremities Novem 2023 8:34pm Allergies, Adverse Reactions, Alerts No known allergies Social History Smoking Status Status Start Date End Date Date of Observa tion Never smoked tobacco (finding) February 11, 2024 11:19pm Observation Status Observation Response Date of Response Do You Feel Safe in your Home? No N ov2023 11:19pm Has Lack of Trans Kept You From Med Appts or Getting Meds? No February 11, 2024 11:19pm In Past 12 Months, Were You Worried Your Food Would Run Out? Never True February 11, 2024 11:19pm What is Your Housing Situati on Today? I Have Housing February 11, 2024 11:19pm Are You Worried That in Next 2 Mo, You Won't Have Housing? No February 11, 2024 11:19pm Do You Have Trouble Paying Your Heating Or Electricity Bill? No February 11, 2024 11:19pm Do You Have Trouble Paying F or Medicines? No February 11, 2024 11:19pm Are You Currently Unemployed and Looking for Work? No February 11, 2024 11:19pm Highest Level of Education Completed High School Diploma/GED February 11, 2024 11:19pm Do You Have Trouble With Childcare/Care of a Family Member? No February 11, 2024 11:19pm alcohol intake current February 10 11:19pm Substance use type does not use February 11:19pm Patient Sex Male February 15 7:44pm Assigned Sex Male February Gender Identity Cisgender/Not transg te (finding) November 01, 2023 Family History Relationship Condition Age at Onset Recorded Date/T jessica father Family history of emphysema 69 Problems Active Problems Medical Problem Onset Date Status Pain of lower leg Unknown Active Urinary tract infection Unknown Active Basal cell carcinoma (BCC) of brow Unknown Active Insulin dependent type 2 diabetes mellitus Unkno wn Active Colon cancer screening Unknown Active Diabetic neuropathy Unknown Active Osteoarthritis of knees, bilateral Unknown Active Diabetes mellitus Unknown Active Diminished pulses in lower extremity Unknown Active Dietary counseling and surveillance Unknown Active Chronic kidney disease, stage 4 (severe) Unknown Active CKD (chronic kidney disease) stage 4, GFR 15-29 ml/min Unknown Active CKD (chronic kidney disease), stage III Unknown Active CHF (congestive heart failure) Unknown A ctive Anemia Unknown Active Adrenal nodule Unknown Active Afib Unknown Active Atrial fibrillation Unknown Active Chronic anticoagulation Unknown Active Cellulitis Unknown Active Diarrhea Unknown Active Nonischemic cardiomyopathy Unknown Activ e Insulin resistance Unknown Active Pulmonary nodule Unknown Active Venous stasis of both lower extremities Unknown Active Weakness of both lower extremities Unknown Active Metabolic syndrome Unknown Active Hyperlipidemia LDL goal <100 Unknown Act greg Skin lesion Unknown Active Skin ulceration Unknown Active Claudication of both lower extremities Unknown Active Bilateral leg pain Unknown Active MGUS (monoclonal gammopathy of unknown significa nce) Unknown Active Type 2 diabetes mellitus wit h hyperglycemia, with long-term current use of insulin Unknown Active BMI greater than 30 Unknown Active BMI greater than 40 Unknown Active Mild dehydration Unknown Active Sepsis Unknown Active PAD (peripheral artery disease) Unknown Active Acute UTI Unknown Active HTN (hypertension) Unknown Active Hypertension Unknown Active Vitamin D deficiency Unknown Active ASHD (arteriosclerotic heart disease) Unknown Active Pancreatic cyst Unknown Active Inactive/Resolved Problems Medical Problem Onset Date Status Lower extremity edema Unknown Resolved Medications Medication Status Dose Units Route Directions Qty Days St art Date Stop Date End Date Instructions Adherence Cholecalcif rosi (Vitamin D3) 1,250 mcg (50,000 unit) tablet Active 1250 MCG PO WEEKLY September 13, 2023 11:00p m pt takes on Mondays Insulin Regular Hum U-500 Conc (Humulin R U-500 (Conc) Kwikpen) 500 unit/mL (3 mL) insulin pen Active 40 UNIT SUB-Q DAILY Octobe r 2023 10:06a m Glucagon (Gvoke Hypopen 2-Pack) 1 mg/0.2 mL auto-inject or Active 1 MG SUB-Q ONCE 0.4 Janobe r 2023 11:00p m may repeat once after 15 minutes if no response Fenofibrate 54 mg tablet Active 54 MG PO DAILY Novemb er 2023 9:48pm Carvedilol 25 mg Tablet Active 12.5 MG PO TWICE A DAY 60 Novemb er 2023 2:32pm Furosemide 80 mg tablet Active 40 MG PO DAILY 15 b er 2023 2:32pm Warfarin 5 mg tablet Active 2.5 MG PO DAILY 15 b er 2023 2:32pm Sulfamethox azole-Trime thoprim 800-160 mg Tablet Active 1 TAB PO EVERY 12 HOURS 3 b er 2023 12:00a m Losartan 50 mg Tablet Active 50 MG PO DAILY Octobe r 2018 11:00p m Spironolact one 50 mg Tablet Active 50 MG PO DAILY Octobe r 2018 11:00p m Potassium Chloride 20 mEq Tablet Extended Release Active 20 MEQ PO DAILY Octobe r 2018 11:00p m Semaglutide 1 mg/dose (2 mg/1.5 mL) Pen Injector Active 1 MG SUB-Q WEEKLY October 31, 2023 11:00p m takes on Mondays Flash Glucose Sensor (Freestyle Germania 2 Sensor) kit Active 0 .ROUTE .COMPLEX 2 November 24, 2023 10:06a m DIRECTED TO CHECK BLOOD SUGARS 3 TIMES Pen Needle, Diabetic (Bd Lona 2nd Gen Pen Needle) 32 gauge x 5/32 needle Active 0 .ROUTE .COMPLEX 200 Sept huong 2023 2:56pm USE TWICE DAILY Atorvastati n 80 mg tablet Active 80 MG PO DAILY 90 Octobe r 2023 8:49am Mupirocin 2 % ointment Active 1 APPLIC TOPICA L THREE TIMES A DAY er 2023 3:00pm apply to leg wounds Immunizations Immunization Event Date Not Given Reason Dose Number Yarn Ske[employer]er Lot Number Vaccine Information Statement (VIS) Detail Administration Location Fluzone High-Dose 65YR+ January 26, 2016 Fluzone High-Dose 65YR+ January 17, 2017 Fluzone High-Dose 65YR+ December 31, 2020 [id number] Fluzone High-Dose 65YR+ February 16, 2024 [id number] Pneumococcal Polysacc. Vaccine, 23 valent February 16, 2016 Pneumococcal Polysacc. Vaccine, 23 valent March 07, 2017 SARS-COV-2 (COVID-19) [facility] December 31, 2020 [id number] SARS-COV-2 (COVID-19) [facility] July 17, 2021 [id number] Procedures Procedure Date Performed Status Blood Culture January 22, 2024 completed Urine Culture February 11, 2024 completed Blood Culture February 11, 2024 active Relevant Diagnostic Tests and/or Laboratory Data Laboratory Results Test Date/Time Result Interpretation Reference Range Result Comment Performing Site Glucose (Fingerstick)( Clinic) September 14, 2023 1:24pm 125 Mg/dL Hemoglobin A1c November 07, 2023 6:40am 6.9 % of total Hgb Above high normal <5.7 For someone without known diabetes, a hemoglobin C6nprvcy of 6.5% or greater indicates that they [...] children. This test was performed on the Rodati nathan c503 platform.Effecti ve 06/19/23, a change in test platforms from theInviBox to the Macarena nathan c503 may have [id number] results compared to historical results.[facility] the Macarena platform relative to the Abbottplatform had an average increase in HbA1c value of< or = 0.3%. This difference is within accepted variability established by the National GlycohemoglobinS tandardization Program. Note that not all individualswill have had a shift in their results and directcomparison s between historical and current results fortesting conducted on different platforms is notrecommended. Vitamin D 25-Hydroxy November 07, 2023 6:40am 42 ng/mL 30-100 Vitamin D Status 25-OH Vitamin D: Deficiency: <20 ng/mLInsufficien cy: 20 - 29 ng/mLOptimal: > or = 30 ng/mL For 25-OH Vitamin D testing on patients on D2-supplementati on and patients for whom quantitation of D2 and D3 fractions is required, the QuestAssureD(TM) 25-OH VIT D, (D2,D3), LC/MS/MS is recommended: order code 60039 (patients >2yrs). See Note 1 Note 1 For additional information, please refer to http://education .Phlexglobal/faq/EZX854 (This link is being provided for informational/ed ucational purposes only.) Prostate Specific Antigen November 07, 2023 6:40am 1.91 ng/mL < OR = 4.00 The [...] of disease. Glucose Level November 07, 2023 6:40am 127 mg/dL Above high normal 65-99 Fasting reference interval For someone without known diabetes, a glucosevalue >125 mg/dL indicates that they may havediabetes and this should be confirmed with afollow-up test. Triglycerides Level November 07, 2023 6:40am 108 mg/dL <150 Urine Creatinine November 07, 2023 12:19pm 72 mg/dL 20-320 Glucose (Fingerstick)( Clinic) January 15, 2024 9:49am 214 Mg/dL Total Testosterone January 24, 2024 8:29am 247 ng/dL Below low normal 250-1100 Men with clinically significant hypogonadal symptoms and testosterone valuesrepeatedly in the range of the 200-300 ng/dL or less, may benefit fromtestosterone treatment after adequate risk and benefits counseling. For additional information, please refer tohttps://educat ion.[employer]/faq/FAQ 165(This link is being provided for informational/ed ucational purposes only.)(Note) This test was developed and its analytical performance characteristics have been determined by [employer]. It has not been cleared or approved by the FDA. This assay has been validated pursuant to the CLIA regulations and is used for clinical purposes. Hemoglobin A1c January 24, 2024 8:29am 6.9 % of total Hgb Above high normal <5.7 For someone without known diabetes, a hemoglobin S5pxezct of 6.5% or greater indicates that they [...] A1c for diagnosis of diabetes for children. Vitamin D 25-Hydroxy January 24, 2024 8:29am 50 ng/mL 30-100 Vitamin D Status 25-OH Vitamin D: Deficiency: <20 ng/mLInsufficien cy: 20 - 29 ng/mLOptimal: > or = 30 ng/mL For 25-OH Vitamin D testing on patients on D2-supplementati on and patients for whom quantitation of D2 and D3 fractions is required, the BondandDeniureD(TM) 25-OH VIT D, (D2,D3), LC/MS/MS is recommended: order code 12155 (patients >2yrs). See Note 1 Note 1 For additional information, please refer to http://education .Phlexglobal/faq/WLN178 (This link is being provided for informational/ed ucational purposes only.) Glucose Level January 24, 2024 8:29am 149 mg/dL Above high normal 65-99 Fasting reference interval For someone without known diabetes, a glucosevalue >125 mg/dL indicates that they may havediabetes and this should be confirmed with afollow-up test. Triglycerides Level January 24, 2024 8:29am 121 mg/dL <150 Urine Creatinine January 24, 2024 10:00am 106 mg/dL 20-320 Blood Urea Nitrogen November 07, 2023 6:40am 29 mg/dL Above high normal 7-25 Cholesterol Level November 07, 2023 6:40am 131 mg/dL <200 Urine Random Microalbumin November 07, 2023 12:19pm 1.0 mg/dL See Note: Reference Range:Reference RangeNot established Free Testosterone January 24, 2024 8:29am 29.8 pg/mL Below low normal 30.0-135.0 (Note)This test was developed and its analytical performance characteristics have been determined by [facility]. It has not been cleared or approved by the FDA. This assay has been validated pursuant to the CLIA regulations and is used for clinical purposes. [facility] [id number] [place] [address],[address] [phone] [place] [address] Agusto Pressley MD, PhD Blood Urea Nitrogen January 24, 2024 8:29am 30 mg/dL Above high normal 7-25 Cholesterol Level January 24, 2024 8:29am 130 mg/dL <200 Urine Random Microalbumin January 24, 2024 10:00am 0.6 mg/dL See Note: Reference Range:Reference RangeNot established Creatinine November 07, 2023 6:40am 2.01 mg/dL Above high normal 0.70-1.28 HDL Cholesterol Direct November 07, 2023 6:40am 55 mg/dL > OR = 40 Urine Microalbumin/C reatinine Ratio November 07, 2023 12:19pm 14 mg/g creat <30 The ADA defines abnormalities in albuminexcretion as follows: Albuminuria Category Result (mg/g creatinine) Normal to Mildly increased <30Moderately increased 30-299 Severely increased > OR = 300 The ADA recommends that at least two of threespecimens collected within a 3-6 month period beabnormal before considering a patient to bewithin a diagnostic category. Creatinine January 24, 2024 8:29am 2.06 mg/dL Above high normal 0.70-1.28 HDL Cholesterol Direct January 24, 2024 8:29am 48 mg/dL > OR = 40 Urine Microalbumin/C reatinine Ratio January 24, 2024 10:00am 6 mg/g creat <30 The ADA defines abnormalities in albuminexcretion as follows: Albuminuria Category Result (mg/g creatinine) Normal to Mildly increased <30Moderately increased 30-299 Severely increased > OR = 300 The ADA recommends that at least two of threespecimens collected within a 3-6 month period beabnormal before considering a patient to bewithin a diagnostic category. BUN/Creatinine Ratio November 07, 2023 6:40am 14 (calc) 6-22 LDL Cholesterol, Calculated November 07, 2023 6:40am 57 mg/dL (calc) Reference range: <100 Desirable range <100 mg/dL for primary prevention; <70 mg/dL for patients with CHD or diabetic patients with > or = 2 CHD risk factors. LDL-C is now calculated using the Raffi-Macedo calculation, which is a validated novel method providing better accuracy than the Friedewald equation in the estimation of LDL-C. Raffi SS et al. ESTELITA. 2013;310(19): 1367-5582 (http://[employer]faq/FAQ16 4) BUN/Creatinine Ratio January 24, 2024 8:29am 15 (calc) 6-22 LDL Cholesterol, Calculated January 24, 2024 8:29am 62 mg/dL (calc) Reference range: <100 Desirable range <100 mg/dL for primary prevention; <70 mg/dL for patients with CHD or diabetic patients with > or = 2 CHD risk factors. LDL-C is now calculated using the Raffi-Macedo calculation, which is a validated novel method providing better accuracy than the Friedewald equation in the estimation of LDL-C. Raffi SS et al. ESTELITA. 2013;310(19): 9846-4779 (http://[employer]/faq/FAQ16 4) Sodium Level November 07, 2023 6:40am 135 mmol/L 135-146 Cholesterol/HD L Ratio November 07, 2023 6:40am 2.4 (calc) <5.0 Sodium Level January 24, 2024 8:29am 138 mmol/L 135-146 Cholesterol/HD L Ratio January 24, 2024 8:29am 2.7 (calc) <5.0 Potassium Level November 07, 2023 6:40am 4.0 mmol/L 3.5-5.3 Non-HDL Cholesterol November 07, 2023 6:40am 76 mg/dL (calc) <130 For patients with diabetes plus 1 major ASCVD risk factor, treating to a non-HDL-C goal of <100 mg/dL (LDL-C of <70 mg/dL) is considered a therapeutic option. Potassium Level January 24, 2024 8:29am 4.2 mmol/L 3.5-5.3 Non-HDL Cholesterol January 24, 2024 8:29am 82 mg/dL (calc) <130 For patients with diabetes plus 1 major ASCVD risk factor, treating to a non-HDL-C goal of <100 mg/dL (LDL-C of <70 mg/dL) is considered a therapeutic option. Chloride Level November 07, 2023 6:40am 100 mmol/L 98-110 Chloride Level January 24, 2024 8:29am 100 mmol/L 98-110 Carbon Dioxide Level November 07, 2023 6:40am 27 mmol/L 20-32 Carbon Dioxide Level January 24, 2024 8:29am 30 mmol/L 20-32 Calcium Level November 07, 2023 6:40am 9.2 mg/dL 8.6-10.3 Calcium Level January 24, 2024 8:29am 9.3 mg/dL 8.6-10.3 Total Protein November 07, 2023 6:40am 7.0 g/dL 6.1-8.1 Total Protein January 24, 2024 8:29am 6.5 g/dL 6.1-8.1 Albumin November 07, 2023 6:40am 4.3 g/dL 3.6-5.1 Albumin January 24, 2024 8:29am 3.9 g/dL 3.6-5.1 Globulin November 07, 2023 6:40am 2.7 g/dL (calc) 1.9-3.7 Globulin January 24, 2024 8:29am 2.6 g/dL (calc) 1.9-3.7 Albumin/Globul in Ratio November 07, 2023 6:40am 1.6 (calc) 1.0-2.5 Albumin/Globul in Ratio January 24, 2024 8:29am 1.5 (calc) 1.0-2.5 Total Bilirubin November 07, 2023 6:40am 0.5 mg/dL 0.2-1.2 Total Bilirubin January 24, 2024 8:29am 0.8 mg/dL 0.2-1.2 Alkaline Phosphatase November 07, 2023 6:40am 59 U/L 35-144 Alkaline Phosphatase January 24, 2024 8:29am 46 U/L 35-144 Aspartate Amino Transf (AST/SGOT) November 07, 2023 6:40am 19 U/L 10-35 Aspartate Amino Transf (AST/SGOT) January 24, 2024 8:29am 14 U/L 10-35 Alanine Aminotransfera se (ALT/SGPT) November 07, 2023 6:40am 21 U/L 9-46 Alanine Aminotransfera se (ALT/SGPT) January 24, 2024 8:29am 14 U/L 9-46 Estimat Glomerular Filtration Rate November 07, 2023 6:40am 34 mL/min/1. 73m2 Below low normal > OR = 60 Estimat Glomerular Filtration Rate January 24, 2024 8:29am 33 mL/min/1. 73m2 Below low normal > OR = 60 White Blood Count January 22, 2024 11:40am 8.4 K/mm3 4.5-10.0 [facility] [id number] [address] [place] [address] White Blood Count February 16, 2024 6:28am 9.1 K/mm3 4.5-10.0 [facility] [id number] [address] [place] [address] 27459 Red Blood Count January 22, 2024 11:40am 3.62 M/mm3 Below low normal 4.6-6.20 [facility] [id number] [address] [place] [address] 99285 Red Blood Count February 16, 2024 6:28am 3.05 M/mm3 Below low normal 4.6-6.20 [facility] [id number] [address] [place] [address] 9[address]78 Hemoglobin January 22, 2024 11:40am 11.8 g/dL Below low normal 14.0-18.0 [facility] [id number] [address] [place] [address]33 Hemoglobin February 16, 2024 6:28am 9.9 g/dL Below low normal 14.0-18.0 [facility] [id number] [address] [place] [address] 36162 Hematocrit January 22, 2024 11:40am 35.1 % Below low normal 42.0-52.0 [facility] [id number] [address] [place] [address]969 Hematocrit February 16, 2024 6:28am 29.6 % Below low normal 42.0-52.0 [facility] [id number] [address] [place] [address] 47099 Mean Corpuscular Volume January 22, 2024 11:40am 97.0 fL 80-100 [facility] [id number] [address] [address] Mean Corpuscular Volume February 16, 2024 6:28am 97.0 fL 80-100 [facility] [id number] [facility] [address] Mean Corpuscular Hemoglobin January 22, 2024 11:40am 32.6 pg 26-34 [facility] [id number] [address] [address] Mean Corpuscular Hemoglobin February 16, 2024 6:28am 32.5 pg 26-34 [facility] [id number] [address] [address] Mean Corpuscular Hemoglobin Concent January 22, 2024 11:40am 33.6 g/dL -36 [facility] [id number] [address] [address] Mean Corpuscular Hemoglobin Concent February 16, 2024 6:28am 33.4 g/dL -36 [facility] [id number] [address] [address] Red Cell Distribution Width January 22, 2024 11:40am 13.2 % 11.5-14.5 [facility] [id number] [address] [address] Red Cell Distribution Width February 16, 2024 6:28am 14.3 % 11.5-14.5 [facility] [id number] [facility] [address] [address] Platelet Count January 22, 2024 11:40am 223 k/mm3 150-375 [facility] [id number] [facility] [address] [address] Platelet Count February 16, 2024 6:28am 221 k/mm3 150-375 [facility] [id number] [address] [place] [address] 85396 Mean Platelet Volume January 22, 2024 11:40am 10.5 fL Above high normal 7.4-10.4 [facility] [id number] [address] [place] [address] 26113 Mean Platelet Volume February 16, 2024 6:28am 9.8 fL 7.4-10.4 [facility] [id number] [address] [place] [address]360[address] Nucleated Red Blood Cells % January 22, 2024 11:40am 0.0 % 0.0-0.2 [facility] [id number] [address] [place] [address]95 Nucleated Red Blood Cells % February 11, 2024 1:22pm 0.0 % 0.0-0.2 [facility] [id number] [address] [place] [address]887 Immature Granulocyte % (Auto) January 22, 2024 11:40am 1.6 % Above high normal 0-0.5 [facility] [id number] [address] [place] [address] Immature Granulocyte % (Auto) February 11, 2024 1:22pm 4.6 % Above high normal 0-0.5 [facility] [id number] [address] [place] [address] 38283 Neutrophils (%) (Auto) January 22, 2024 11:40am 73.2 % Above high normal 45.5-73.1 [facility] [id number] [address] [place] [place] [address] 87413 Neutrophils (%) (Auto) February 11, 2024 1:22pm 82.8 % Above high normal 45.5-73.1 [facility] [id number] [address] [place] [address] 56365 Lymphocytes (%) (Auto) January 22, 2024 11:40am 12.7 % Below low normal 18.3-44.2 [facility] [id number] [address] [place] [address] 64776 Lymphocytes (%) (Auto) February 11, 2024 1:22pm 4.9 % Below low normal 18.3-44.2 [facility] [id number] [address] [place] [address] 48598 Monocytes (%) (Auto) January 22, 2024 11:40am 9.7 % Above high normal 2.6-8.5 [facility] [id number] [address] [place] [address] 43480 Monocytes (%) (Auto) February 11, 2024 1:22pm 7.4 % 2.6-8.5 [facility] [id number] [address] [place] [address] 82867 Eosinophils (%) (Auto) January 22, 2024 11:40am 2.3 % 0-4.4 [facility] [id number] [address] [place] [address] 99882 Eosinophils (%) (Auto) February 11, 2024 1:22pm 0.0 % 0-4.4 [facility] [id number] [address] [place] [address] 83162 Basophils (%) (Auto) January 22, 2024 11:40am 0.5 % 0.2-1.2 [facility] [id number] [address] [place] [address] 64485 Basophils (%) (Auto) February 11, 2024 1:22pm 0.3 % 0.2-1.2 [facility] [id number] [address] [place] [address] 02642 Nucleated RBC Absolute Count (auto) January 22, 2024 11:40am 0.000 K/mm3 0.0-0.012 [facility] [id number] [address] [place] [address] 63754 Nucleated RBC Absolute Count (auto) February 11, 2024 1:22pm 0.000 K/mm3 0.0-0.012 [facility] [id number] [address] [place] [address] 22364 Absolute Immature Granulocyte (auto January 22, 2024 11:40am 0.13 K/mm3 Above high normal 0.00-0.031 [facility] [id number] [address] [place] [address] 38770 Absolute Immature Granulocyte (auto February 11, 2024 1:22pm 0.92 K/mm3 Above high normal 0.00-0.031 [facility] [id number] [address] [place] [address] 89669 Absolute Neutrophils (auto) January 22, 2024 11:40am 6.1 K/mm3 1.3-6.7 [facility] [id number] [facility] [place] [phone] Absolute Neutrophils (auto) February 11, 2024 1:22pm 16.6 K/mm3 Above high normal 1.3-6.7 [facility] [id number] [address] [place] [address] Lymphocytes # (Auto) January 22, 2024 11:40am 1.06 K/mm3 0.9-3.2 [facility] [id number] [address] [place] [address] Lymphocytes # (Auto) February 11, 2024 1:22pm 0.99 K/mm3 0.9-3.2 [facility] [id number] [address] [place] [address] Monocytes # (Auto) January 22, 2024 11:40am 0.8 K/mm3 Above high normal 0.1-0.6 [facility] [id number] [address] [place] [address] Monocytes # (Auto) February 11, 2024 1:22pm 1.5 K/mm3 Above high normal 0.1-0.6 [facility] [id number] [address] [place] [address] Eosinophils # (Auto) January 22, 2024 11:40am 0.2 K/mm3 0-0.3 [facility] [id number] [address] [place] [address] 42950 Eosinophils # (Auto) February 11, 2024 1:22pm 0.0 K/mm3 0-0.3 [facility] [id number] [address] [place] [address] 04351 Basophils # (Auto) January 22, 2024 11:40am 0.0 K/mm3 0.0-0.1 [facility] [id number] [address] [place], [place] [address] Basophils # (Auto) February 11, 2024 1:22pm 0.1 K/mm3 0.0-0.1 [facility] [id number] [address] [place], [place] [address] Platelet Estimate February 11, 2024 1:22pm Adequate Adequate [facility] [id number] [address] [place], [place] [address] Haskell Cells February 11, 2024 1:22pm 1+ [facility] [id number] [address] [place], [place] [address] Schistocytes February 11, 2024 1:22pm None seen [facility] [id number] [address] [place], [place] [address] Prothrombin Time January 22, 2024 11:40am 33.9 s Above high normal 11.1-14.7 [facility] [id number] [address] [place] [address] Prothrombin Time February 16, 2024 6:28am 25.3 s Above high normal 11.1-14.7 [facility] [id number] [address] [place], [place] [address] Prothromb Time International Ratio January 22, 2024 11:40am 3.3 INR Indication------ --- ------0.9 - 1.1 Patients not on anticoagulant therapy.2.0 - 3.0 Routine therapy.2.5 - 3.5 Recurrent myocardial infarction or mechanical prosthetic valves. [facility] [id number] [address] [place], [place] [address] Prothromb Time International Ratio February 16, 2024 6:28am 2.3 INR Indication------ --- ------0.9 - 1.1 Patients not on anticoagulant therapy.2.0 - 3.0 Routine therapy.2.5 - 3.5 Recurrent myocardial infarction or mechanical prosthetic valves. [facility] [id number] [address] [place] [address] 59105 Activated Partial Thromboplast Time January 22, 2024 11:40am 32.0 s 22.3-36.8 [facility] [id number] [address] [place], [place] [address] Activated Partial Thromboplast Time February 11, 2024 1:22pm 59.2 s Above high normal 22.3-36.8 [facility] [id number] [address] [place], [place] [address] Urine Color January 22, 2024 2:16pm Yellow [facility] [id number] [address] [address] Urine Color February 11, 2024 1:22pm Yellow Yellow [facility] [id number] [address] [address] Urine Appearance January 22, 2024 2:16pm Clear Clear [facility] [id number] [address] [address]247 Urine Appearance February 11, 2024 1:22pm Turbid Above high normal Clear [facility] [id number] [address] [address] Urine pH January 22, 2024 2:16pm 5.0 5.0-9.0 [facility] [id number] [address] [address] Urine pH February 11, 2024 1:22pm 5.0 5.0-9.0 [facility] [id number] [address] [address] Urine Specific [place] January 22, 2024 2:16pm 1.009 1.001-1.[address] [place] [address] [facility] [id number] [address] [address] Urine Specific [place] February 11, 2024 1:22pm 1.012 1.001-1.[address] [place] [address] [facility] [id number] [address] [address] Urine Protein January 22, 2024 2:16pm Negative mg/dL [facility] [id number] [address] [address] Urine Protein February 11, 2024 1:22pm Trace mg/dL Negative [facility] [id number] [address] [address] Urine Glucose (UA) January 22, 2024 2:16pm Negative mg/dL Negative [facility] [id number] [address] [address] Urine Glucose (UA) February 11, 2024 1:22pm Negative mg/dL Negative [facility] [id number] [address] [address] Urine Ketones January 22, 2024 2:16pm Negative mg/dL [facility] [id number] [address] [address] Urine Ketones February 11, 2024 1:22pm Trace mg/dL Above high normal [facility] [id number] [address] [place] [address] 35454 Urine Blood (Manual) January 22, 2024 2:16pm Negative Negative [facility] [id number] [address] [place] [address] 46613 Urine Blood (Manual) February 11, 2024 1:22pm 1+ Above high normal Negative [facility] [id number] [address] [place] [address] 49357 Urine Nitrate January 22, 2024 2:16pm Negative Negative [facility] [id number] [address] [place] [address] 73443 Urine Nitrate February 11, 2024 1:22pm Negative Negative [facility] [id number] [address] [place] [address] 84696 Urine Bilirubin January 22, 2024 2:16pm Negative Negative [facility] [id number] [address] [place] [address] 33478 Urine Bilirubin February 11, 2024 1:22pm Negative Negative [facility] [id number] [address] [place] [address] 53839 Urine Urobilinogen January 22, 2024 2:16pm 0.2 mg/dL <2.0 [facility] [id number] [address] [place] [address] 46974 Urine Urobilinogen February 11, 2024 1:22pm 0.2 mg/dL <2.0 [facility] [id number] [address] [place] [address] 82090 Urine Leukocyte Esterase (Reflex) January 22, 2024 2:16pm Trace ALBERTO/UL Above high normal Negative [facility] [id number] [address] [place] [address] 82168 Urine Leukocyte Esterase (Reflex) February 11, 2024 1:22pm 3+ ALBERTO/UL Above high normal Negative [facility] [id number] [address] [place] [address] 35665 Urine RBC January 22, 2024 2:16pm 0-2 [HPF] 0-2 [facility] [id number] [address] [facility] [address] [place] [address] 23334 Urine RBC February 11, 2024 1:22pm 0-2 [HPF] 0-2 [facility] [id number] [address] [place] [address] 69638 Urine WBC January 22, 2024 2:16pm 0-5 [HPF] 0-3 [facility] [id number] [address] [address] Urine WBC February 11, 2024 1:22pm >100 [HPF] Above high normal 0-3 [facility] [id number] [address] [address] Urine Squamous Epithelial Cells January 22, 2024 2:16pm None seen [HPF] [facility] [id number] [address] [address] Urine Squamous Epithelial Cells February 11, 2024 1:22pm None seen [HPF] [facility] [id number] [address] [address] Urine Bacteria January 22, 2024 2:16pm None seen [HPF] [facility] [id number] [address] [address] Urine Bacteria February 11, 2024 1:22pm 4+ [HPF] Above high normal [facility] [id number] [address] [address] Sodium Level January 22, 2024 11:40am 135 mmol/L Below low normal 137-145 [facility] [id number] [address] [address] Sodium Level February 16, 2024 6:28am 138 mmol/L 137-145 [facility] [id number] [address] [address] Potassium Level January 22, 2024 11:40am 4.5 mmol/L 3.4-5.0 [facility] [id number] [address] [address] Potassium Level February 16, 2024 6:28am 4.0 mmol/L 3.4-5.0 [facility] [id number] [address] [address] Chloride Level January 22, 2024 11:40am 96 mmol/L Below low normal 98-107 [facility] [id number] [address] [address] Chloride Level February 16, 2024 6:28am 104 mmol/L 98-107 [facility] [id number] [address] [address] Carbon Dioxide Level January 22, 2024 11:40am 30 mmol/L [facility] [id number] [address] [address] Carbon Dioxide Level February 16, 2024 6:28am 27 mmol/L [facility] [id number] [address] [place] [address] 61870 Anion Gap January 22, 2024 11:40am 9 mmol/L 07-13 [facility] [id number] [address] [place] [address] 41216 Anion Gap February 16, 2024 6:28am 7 mmol/L 07-13 [facility] [id number] [address] [place] [address] 58826 Blood Urea Nitrogen January 22, 2024 11:40am 29 mg/dL Above high normal 12-21 [facility] [id number] [address] [place] [address] 47906 Blood Urea Nitrogen February 16, 2024 6:28am 30 mg/dL Above high normal 12-21 [facility] [id number] [address] [place] [address] 62824 Creatinine January 22, 2024 11:40am 2.30 mg/dL Above high normal 0.7-1.3 [facility] [id number] [address] [place] [address] 14005 Creatinine February 16, 2024 6:28am 1.70 mg/dL Above high normal 0.7-1.3 [facility] [id number] [address] [place] [address] 55494 Estimat Glomerular Filtration Rate January 22, 2024 11:40am 28 Below low normal >59 > OR = 60 ml/min/1.73 square metersThe MDRD formula used to calculate the eGFR result has not been validated in patients > 70 years of age. [facility] [id number] [address] [place] [address] 58945 Estimat Glomerular Filtration Rate February 16, 2024 6:28am 40 Below low normal >59 > OR = 60 ml/min/1.73 square metersThe MDRD formula used to calculate the eGFR result has not been validated in patients > 70 years of age. [facility] [id number] [address] [place] [address] 62035 Estimated Creatinine Clearance Calc January 22, 2024 11:40am 39 mL/min For use in prescription drug dose determination only. Reference ranges have not been establishe for this calculation. [facility] [id number] [address] [place] [address] 51694 Estimated Creatinine Clearance Calc February 16, 2024 6:28am 51 mL/min For use in prescription drug dose determination only. Reference ranges have not been establishe for this calculation. [facility] [id number] [address] [place] [address] 71253 Glucose Level January 22, 2024 11:40am 186 mg/dL Above high normal 65-110 [facility] [id number] [address] [place] [address] 02818 Glucose Level February 16, 2024 6:28am 135 mg/dL Above high normal 65-110 [facility] [id number] [address] [place] [address] 21849 POC Capillary Glucose February 16, 2024 4:31pm 186 mg/dL Above high normal 65-105 [facility] POC Hemoglobin A1c February 11, 2024 11:48pm 6.5 % Above high normal <5.7 <5.7: Decreased risk of diabetes 5.7-6.0: Increased risk of diabetes 6.1-6.4: Higher risk of diabetes> or = 6.5: Consistent with diabetes [facility] [id number] [address] [place] [address] 58310 Lactic Acid Level January 22, 2024 11:40am 1.8 mmol/L 0.7-2.0 [facility] [id number] [address] [place] [address] 53600 Lactic Acid Level February 11, 2024 7:16pm 1.3 mmol/L 0.7-2.0 [facility] [id number] [address] [place] [address] 05941 Calcium Level January 22, 2024 11:40am 9.8 mg/dL 8.4-10.2 [facility] [id number] [address] [place] [address] 50731 Calcium Level February 16, 2024 6:28am 9.5 mg/dL 8.4-10.2 [facility] [id number] [address] [place] [address] 75327 Magnesium Level February 12, 2024 5:53am 2.0 mg/dL 1.6-2.3 [facility] [id number] [address] [place] [address] 21005 Total Bilirubin January 22, 2024 11:40am 0.7 mg/dL 0.2-1.3 [facility] [id number] [address] [place] [address] 59188 Total Bilirubin February 12, 2024 5:53am 0.8 mg/dL 0.2-1.3 [facility] [id number] [address] [place] [address] 45673 Aspartate Amino Transf (AST/SGOT) January 22, 2024 11:40am 25 U/L [facility] [id number] [address] [place] [address] 99430 Aspartate Amino Transf (AST/SGOT) February 12, 2024 5:53am 45 U/L [facility] [id number] [address] [place] [address] 31744 Alanine Aminotransfera se (ALT/SGPT) January 22, 2024 11:40am 24 U/L [facility] [id number] [address] [place] [address] 06254 Alanine Aminotransfera se (ALT/SGPT) February 12, 2024 5:53am 27 U/L [facility] [id number] [address] [place] [address] 12097 Troponin I January 22, 2024 11:40am < 0.012 ng/mL 0.000-0.03 4 Acute myocardial injury is indicated by:1. A troponin value of >0.034 ng/mL and/or2. A 20% change in troponin value.Specimens with biotin concentrations up to 2.5 ng/mL demonstrate a less than or equal to 10% change in results. Biotin concentrations greater than this falsely decrease Troponin results for patient samples. [facility] [id number] [address] [place] [address] 94366 Troponin I February 11, 2024 1:22pm < 0.012 ng/mL 0.000-0.03 4 Acute myocardial injury is indicated by:1. A troponin value of >0.034 ng/mL and/or2. A 20% change in troponin value.Specimens with biotin concentrations up to 2.5 ng/mL demonstrate a less than or equal to 10% change in results. Biotin concentrations greater than this falsely decrease Troponin results for patient samples. [facility] [id number] [address] [place] [address] 06394 C-Reactive Protein January 22, 2024 11:40am < 0.5 mg/dL <1.1 [facility] [id number] [address] [place] [address] 10743 C-Reactive Protein February 11, 2024 7:16pm 28.3 mg/dL Above high normal <1.1 [facility] [id number] [address] [place] [address]955 FL-Dqc-C-Type Natriuretic Peptide January 22, 2024 11:40am 429 pg/mL Above high normal 19.9-100 Reference Range:Normal, Heart Failure unlikely: </= 300 pg/mlHigh Probablility of Heart Failure: <50 Years >/= 450 pg/ml 50-75 Years >/= 900 pg/ml >75 Years >/= 1800 pg/ml [facility] [id number] [address] [place] [address] 609[address] OW-Zlk-L-Type Natriuretic Peptide February 11, 2024 1:22pm 1270 pg/mL Above high normal 19.9-100 Reference Range:Normal, Heart Failure unlikely: </= 300 pg/mlHigh Probablility of Heart Failure: <50 Years >/= 450 pg/ml 50-75 Years >/= 900 pg/ml >75 Years >/= 1800 pg/ml [facility] [id number] [address] [address] Total Protein January 22, 2024 11:40am 8.0 g/dL 6.3-8.2 [facility] [id number] [address] [place] [address] 41920 Total Protein February 12, 2024 5:53am 7.0 g/dL 6.3-8.2 [facility] [id number] [address] [place] [address] 44918 Albumin January 22, 2024 11:40am 4.5 g/dL 3.5-5.1 [facility] [id number] [address] [place] [address] 91671 Albumin February 12, 2024 5:53am 3.4 g/dL Below low normal 3.5-5.1 [facility] [id number] [address] [place] [address] 58574 Alkaline Phosphatase January 22, 2024 11:40am 68 U/L 38-126 [facility] [id number] [address] [place] [address] 71148 Alkaline Phosphatase February 12, 2024 5:53am 76 U/L 38-126 [facility] [id number] [address] [place] [address] 96819 Thyroid Stimulating Hormone (Reflex February 12, 2024 5:53am 1.060 [iU]/mL 0.465-4.68 [facility] [id number] [address] [place] [address] 39427 Clostridium difficile (PCR)(LAB) February 13, 2024 12:04pm Negative NEGATIVE The test is performed on the [employer] GeneXpert Dx System and utilized automated real-time polymerase chain reaction (PCR) to detect toxin gene sequences associated with toxin producing C. difficile. The assay is intended as an aid in the diagnosis of C. difficile infection. [facility] [id number] [address] [place] [address] 21158 Urine Casts January 22, 2024 2:16pm 0-2 [facility] [id number] [address] [place] [address] 74896 Urine Casts February 11, 2024 1:22pm 3-5 [facility] [id number] [address] [place] [address] 43528 Microbiology Results Procedure Source Result Collection Date/Time Result Date/Time Result Comment Performing Site Blood Culture Blood January 22, 2024 1:25pm January 28, 2024 12:58am [facility] Urine Clean Catch Citrobacter Koseri February 11, 2024 1:22pm February 14, 2024 7:13am [facility] Reports Author Jona [facility] Report Date/Time February 11, 2024 1:55pm [place] [id number] XRay Report Signed Patient: Erwin Isaac : 1950 MR#: [id number] Age: 73 Acct:[id number] Loc: [facility] ADM Date: 02/11/[address]: Ordering Physician: Delfino Winn MD Date of Service: 02/11/24 Procedure(s): XR chest 1V portable Accession Number(s): [id number] cc: Erwin Gardner MD; Delfino Winn MD~ Portable chest x-ray Comparison: 11/02/2011 Clinical History: Shortness of breath, weakness Findings: Lungs are clear, without focal consolidation or pleural effusion. Cardiomediastinal silhouette is stable. Bones and soft tissues are unremarkable. Impression: Clear lungs. Reviewed, dictated and finalized at location [facility]. [facility] TENDER Dictated By: Jona Hermosillo MD 02/11/24 [id number] Signed By: <Electronically signed by Jona Hermosillo MD in OV> 02/11/24 [id number] Author Abdullahi [facility] Report Date/Time February 11, 2024 4:43pm [facility] [address] [place], [place] [address] [place] Scan Report Signed Patient: Erwin Isaac : 1950 MR#: [id number] Age: 73 Acct:[id number] Loc: [facility] ADM Date: 02/11/[address]: Ordering Physician: Devora Wallace PA-C Date of Service: 02/11/24 Procedure(s): CT chst ab pel thor lum w Accession Number(s): [id number] cc: Devora Wallace PA-C; Erwin Gardner MD~ EXAMINATION: CT chst ab pel thor lum w DATE: 02/11/2024 15:46 INDICATION: leukocytosis, lower extremity weakness . TECHNIQUE: Computed tomography (CT) of the chest, abdomen, and pelvis and thoracic and lumbar spine was performed with 100 mL Omnipaque-350 intravenous contrast. Automated exposure control and iterative reconstruction technique wereemployed. The dose-length product was 1951.58 mGy-cm. COMPARISON: None FINDINGS: CHEST: Thoracic aorta: No significant dilation. No dissection. Mild atherosclerotic calcification. Lung parenchyma and airways: 2 mm superior segment right lower lobe nodule (axial image 48). 4 mm right lower lobe nodule (coronal image 88). 9 mm right lower lobe nodule (axial image 88). Lungs otherwise clear. Patent airways. Thoracic inlet, axillae and chest wall: Moderate symmetric gynecomastia. No thyroid mass. No axillary lymphadenopathy. Mediastinum: Enlarged subcarinal lymph node. Heart and pericardium: Normal heart size. Aortic valve calcification. No pericardial effusion. Coronary artery calcifications: Moderate. Pleura: No effusion or mass. Thoracic bones (excluding spine): No acute osseous finding in the chest. ABDOMEN/PELVIS: Liver: Normal. Biliary/Gallbladder: Cholelithiasis. No inflammatory changes. No bile duct dilation. Pancreas: 8 mm cyst in the pancreatic body. Spleen: Normal. Adrenals:Indeterminate density 2 cm left adrenal nodule. Kidneys: No suspicious mass, obstructing stone, or hydronephrosis. Bilateral cortical thinning. GI tract: No small or large bowel dilation. Normal appendix. Mesentery/Peritoneum: No ascites, mass, or free air. Retroperitoneum: No mass Atherosclerotic abdominal aortic and/or arterial calcifications. Pelvis: Distended urinary bladder. Prostatomegaly. Soft Tissues: Small uncomplicated fat-containing bilateral inguinal and umbilical hernias. Abdominopelvic bones (excluding spine): No acute osseous finding in the abdomen/pelvis. THORACIC SPINE: Vertebral body alignment intact. Vertebral body heights preserved. Multilevel moderate degenerative disc disease and facet arthropathy. No traumatic malalignment or fracture. Mild scoliosis. Mild diffuse, possibly congenital canal narrowing. Multilevel moderate right-sided neural foraminal narrowing. No severe neural foraminal or central canal narrowing LUMBAR SPINE: 5 nonrib-bearing lumbar-type vertebral bodies. Pedicles intact. Normal vertebralbody alignment. Diffusely narrow appearing canal, with moderate central canal narrowing at L3-4 and L4-5. No severe central canal or neural foraminal narrowing. Mild scoliosis. Vertebral body heights preserved. Multilevel moderatedisc disease and facet arthropathy. IMPRESSION: Multiple pulmonary nodules measuring up to 9 mm in the right lower lobe. Recommend follow-up low-dose noncontrast CT of the chest in 3-6 months. Mediastinal lymphadenopathy. 8 mm pancreatic body cyst, recommend follow-up CT abdomen and pelvis with contrast in 2 years. 2.0 cm left adrenal nodule, probably benign, consider follow-up adrenal CT in 12months, unless there is a history of cancer, in which case [facility]. No acute fracture fracture or traumatic malalignment detected in the thoracic orlumbar spine. Reviewed, dictated and finalized at location [facility]. [facility] Dictated By: Abdullahi Partida MD 02/11/24 1617 Signed By: <Electronically signed by Abdullahi Partida MD in OV> 02/11/24 1642 Author [facility] Report Date/Time February 13, 2024 9:01[facility] [address] [place] [address] Magnetic Resonance Report Signed Patient: Erwin Isaac : 1950 MR#: [id number] Age: 73 Acct:[id number] Loc: [id number] ADM Date: 02/11/[address]: Joann Sifuentes M.D. Ordering Physician: Rhys Lopez MD Date of Service: 02/13/24 Procedure(s): MR lumbar spine wo con Accession Number(s): [id number] cc: Joann Sifuentes MD; Rhys Lopez MD; Erwin Gardner MD~ EXAMINATION: MR lumbar spine wo con DATE: 02/13/2024 08:54 INDICATION: Lower extremity weakness. TECHNIQUE: Magnetic resonance imaging (MRI) of the lumbar spine was performed without intravenous contrast. Sequences included sagittal T2-weighted FSE, sagittal T2-weighted FS FSE, sagittal T1-weighted FSE, and axial T2-weighted FSE. COMPARISON: CT lumbar spine 02/11/2024 FINDINGS: There is 6 degrees levocurvature of lumbar spine. There is mild chronic anterior wedging of T12 and L1 vertebral bodies. There is mildly decreased disc height at T12-L1, L3-L4, L4-L5, and L5-S1. The distal spinal cordsignal intensity is normal. The conus medullaris is at T12. The following disc levels are specifically discussed: L1-L2: The disc does not extend beyond the endplate margin. There is moderate and severe left facet joint osteoarthritis. There is mild bilateral neural foraminal stenosis. There is no central canal stenosis. L2-L3: The disc is bulging. There is moderate bilateral facet joint osteoarthritis. There is moderate right and mild left neural foraminal stenosis.There is mild central canal stenosis. L3-L4: The disc is bulging. There is severe bilateral facet joint osteoarthritis. There is moderate right and mild left neural foraminal stenosis.There is mild central canal stenosis. L4-L5: The disc is bulging and has an annular fissure. There is severe bilateralfacet joint osteoarthritis. There is moderate bilateral neural foraminal stenosis. There is mild central canal stenosis. There is severe stenosis of the lateral recesses. L5-S1: The disc is bulging with superimposed left subarticular and foraminal zone extrusion with mass effect on left S1 nerve root in left lateral recess. There is severe bilateral facet joint osteoarthritis. There is mild right and moderate left neural foraminal stenosis. There is mild central canal stenosis. There is severe stenosis of left lateral recess. IMPRESSION: 1. Moderate lumbar spondylosis, worst at L4-L5 and L5-S1. Reviewed, dictated and finalized at location [facility]. [facility] Dictated By: David Swanson MD 02/13/24 0855 Signed By: <Electronically signed by David Swanson MD in OV> 02/13/24 0901 Cardiology Reports Author [facility] Report Date/Time February 11, 2024 6:37pm [place] [address] [place] [address] Electrocardiograph Report Signed Patient: Erwin Isaac : 1950 MR#: [id number] Age: 73 Acct:[id number] Loc: ANHED ADM Date: 02/11/[address]: Ordering Physician: Delfino Winn MD Date of Service: 02/11/24 Procedure(s): CA 12 lead EKG Accession Number(s): [id number] cc: ~ Test Date: 2024-02-11 13:22:00 Measurements Intervals [place] Rate: 75 P: 0 HI: 0 QRS: 13 QRSD: 157 T: 27 QT: 400 QTc: 449 Interpretive Statements ATRIAL FIBRILLATION WITH NORMAL VENTRICULAR RESPONSE RIGHT BUNDLE BRANCH BLOCK CONSIDER INFERIOR INFARCT, AGE INDETERMINATE BASELINE ARTIFACT- I, II, III, AVR, AVL, AVF ABNORMAL ECG No previous ECG available for comparison Electronically Signed On 02-11-2024 18:37:40 [employer] [employer] by Humble Gallego D.O. Dictated By: Humble Gallego DO 02/11/24 1322 Signed By: <Electronically signed by Humble Gallego DO in OV> 02/11/24 1837 Vital Signs Vital Reading Result Reference Range Collection Date/Time Height 75 [in_i] August 25, 2023 7:27am Weight 140.61 kg August 25, 2023 7:27am Body Temperature 97.1 [degF] 97.6-99.6 August 24, 024 7:27am Heart Rate 91 /min 60-100 August 25, 2023 7:27am Oxygen saturation by Pulse oximetry 97 % 90-100 August 25, 2023 7:27a m BP Systolic 139 mm[Hg] 100-140 August 25, 2023 7:27am BP Diastolic 67 mm[Hg] 60-90 August 25, 2023 7:27am BMI (Body Mass Index) 38.7 kg/m2 August 242023 7:27am Height 75 [in_i] September 14, 2023 1:27pm Weight 142.99 kg September 14, 2023 1:27pm Heart Rate 84 /min 60-100 September 14, 2023 1:27pm Oxygen saturation by Pulse oximetry 97 % 90-100 September 14, 2023 1:27 pm BP Systolic 118 mm[Hg] 100-140 September 14, 2023 1:27pm BP Diastolic 74 mm[Hg] 60-90 September 14, 2023 1:27pm BMI (Body Mass Index) 39.4 kg/m2 September 012023 1:27pm Height 75 [in_i] November 01, 2023 8:11am Weight 136.36 kg November 01, 2023 8:11am BMI (Body Mass Index) 37.5 kg/m2 October 032023 8:11am Height 75 [in_i] November 21 8:39am Weight 136.67 kg November 21 8:39am Body Temperature 97.2 [degF] 97.6-99.6 November 8:39am Heart Rate 74 /min 60-100 November 21 8:39am Oxygen saturation by Pulse oximetry 94 % 90-100 November 22, 2023 8: 39am BP Systolic 110 mm[Hg] 100-140 November 21, 8:39am BP Diastolic 60 mm[Hg] 60-90 November 21, 8:39am BMI (Body Mass Index) 37.6 kg/m2 November 22, 2023 8:39am Height 75 [in_i] January 14, 2 024 9:58am Weight 134.26 kg January 14, 2 024 9:58am Heart Rate 80 /min 60-100 January 14, 2 024 9:58am BP Systolic 120 mm[Hg] 100-140 January 14, 2 024 9:58am BP Diastolic 70 mm[Hg] 60-90 January 14, 2 024 9:58am BMI (Body Mass Index) 37.0 kg/m2 Octobe r 2023 9:58am Height 75 [in_i] January 21, 2 024 9:45am Weight 134.50 kg January 21, 2 024 9:45am Body Temperature 97.6 [degF] 97.6-99.6 January 9:45am Heart Rate 69 /min 60-100 January 21, 2 024 6:02pm Respiratory rate 20 /min -January 6:02pm Oxygen saturation by Pulse oximetry 100 % 90-100 January 22, 2024 6 :02pm BP Systolic 112 mm[Hg] 100-140 January 21, 2 024 6:02pm BP Diastolic 62 mm[Hg] 60-90 January 21, 2 024 6:02pm Height 75 [in_i] February 12, 2024 12:00pm Weight 129.10 kg February 16, 2024 6:00am Body Temperature 97.4 [degF] 97.6-99.6 February 152023 6:00am Heart Rate 64 /min 60-100 February 16, 2024 2:00pm Respiratory rate 16 /min -February 152023 2:00pm Oxygen saturation by Pulse oximetry 99 % 90-100 February 16, 2024 2:00pm BP Systolic 108 mm[Hg] 100-140 February 16, 2024 2:00pm BP Diastolic 61 mm[Hg] 60-90 February 16, 2024 2:00pm BMI (Body Mass Index) 36.6 kg/m2 Novemb er 2023 1:37pm Advance Directives Advance Directive Response Recorded Date/ Time [facility] Insurance Providers Guarantor Erwin Isaac Address [address] [facility] [address] Contact Info. Home Phone: Payer Policy Id Coverage Id Subscriber's Name Subscriber Id Effective Date Expiration Date [facility] [id number] Erwin Fuentes [place] [id number] 2018 Self Pay Self N/A Encounters Encounter Location(s) Arrival/Admit Date Discharge/Depart Date Provider(s) Departed Physician/Provi rachel Office Visit [facility]Erwin Gardner MD August 25, 2023 7:23am August 25, 2023 7:36am Erwin Gardner MD Departed Physician/Provi rachel [facility] September 14, 2023 1:19pm September 14, 2023 2:22pm Elda Hare MD Discharged [facility] November 01, 2023 7:38am December 06, 2023 2:08pm Erwin Gardner MD Departed Physician[facility] November 22, 2023 8:22am November 22, 2023 9:15am Erwin Gardner MD Departed Physician/Provi rachel Office Visit [facility] January 15, 2024 9:44am January 15, 2024 10:16am Edelmira Hawk APRN Departed Emergency [facility] Emergency Department January 22, 2024 9:43am January 22, 2024 6:03pm Discharged Inpatient [facility] 3 Med Surg February 11, 2024 8:34pm February 16, 2024 7:00pm BRITTA Neal Recent Diagnosis Onset Date Admit Date Cellulitis Unknown August 25, 2023 8 :23am Skin lesion Unknown August 25, 2023 8 :23am Skin ulceration Unknown August 25, 2023 8 :23am Illness Unknown August 25, 2023 8 :23am BMI greater than 40 Unknown September 13, 2 024 2:19pm Diabetic neuropathy Unknown September 13 024 2:19pm Dietary counseling and surveillance Unknown September 14, 2023 2:19pm Diminished pulses in lower extremity Unknown September 14, 2023 2:19pm Hyperlipidemia LDL goal <100 Unknown Sep 2:19pm [id number] Unknown September 13 2:19pm Vitamin D deficiency Unknown September 14, 2023 2:19pm Afib Unknown November 21 9:22am ASHD (arteriosclerotic heart disease) Unknown November 22, 2023 9:22am CHF (congestive heart failure) Unknown A 2023 9:22am CKD (chronic kidney disease) stage 4, GFR 15-29 ml/min Unknown November 22, 2023 9:22am Diabetes mellitus Unknown November 21, 9:22am Diabetic neuropathy Unknown November 22, 2023 9:22am HTN (hypertension) Unknown November 22, 2023 9:22am MGUS (monoclonal gammopathy of unknown significance) Unknown November 22, 2023 9:22am PAD (peripheral artery disease) Unknown November 22, 2023 9:22am [id number] Unknown November 21 9:22am Vitamin D deficiency Unknown November 9:22am BMI greater than 40 Unknown January 10:44am Diabetic neuropathy Unknown January 10:44am Dietary counseling and surveillance Unknown January 15, 2024 10:44am Diminished pulses in lower extremity Unknown January 15, 2024 10:44am Hyperlipidemia LDL goal <100 Unknown Jan gabe2023 10:44am [id number] Unknown January 15, 2024 10:44am Vitamin D deficiency Unknown January 10:44am Acute UTI Unknown February 10, 2 024 8:34pm Adrenal nodule Unknown February 10, 2 024 8:34pm Atrial fibrillation Unknown February 8:34pm Chronic anticoagulation Unknown February 11, 2024 8:34pm Chronic kidney disease, stage 4 (severe) Unknown February 11, 2024 8:34pm Diarrhea Unknown February 10, 2 024 8:34pm Hypertension Unknown February 10, 2 024 8:34pm Insulin dependent type 2 diabetes mellitus Unkno wn February 11, 2024 8:34pm Mild dehydration Unknown February 11, 2024 8:34pm Nonischemic cardiomyopathy Unknown Novem 2023 8:34pm Pancreatic cyst Unknown February 10, 2 024 8:34pm Pulmonary nodule Unknown February 11, 2024 8:34pm Sepsis Unknown February 10, 2 024 8:34pm Urinary tract infection Unknown February 11, 2024 8:34pm Weakness of both lower extremities Unknown February 11, 2024 8:34pm Functional Status Observation Response Date Recorded Functional capacity on discharge uses cane/walke r February 16, 2024 4:45pm Mental Status Observation Response Date Recorded oriented to person Yes September 13 1:45pm oriented to place Yes September 13 1:45pm oriented to time Yes September 14, 2023 1:45pm patient oriented x3 Yes September 13, 024 1:45pm oriented to person Yes November 22, 2023 9:08am oriented to place Yes November 21, 024 9:08am oriented to time Yes November 21 9:08am patient oriented x3 Yes November 22, 2023 9:08am oriented to person Yes January 15, 2024 2:46pm oriented to place Yes January 15, 2024 2:46pm oriented to time Yes January 14, 024 2:46pm patient oriented x3 Yes January 2:46pm Assessments Diagnosis Onset Date Resolution Status Admit Date Cellulitis acute August 25, 2023 8:23am Skin lesion acute August 24 8:23am Skin ulceration acute August 25, 2023 8:23am Illness noneactive August 25, 2023 8:23am BMI greater than 40 acute September 14, 2023 2:19pm Diabetic neuropathy acute September 14, 2023 2:19pm Dietary counseling and surveillance acute September 14, 2023 2:19pm Diminished pulses in lower extremity acute September 14, 2023 2:19pm Hyperlipidemia LDL goal <100 acute September 14, 2023 2:19pm [id number] acute September 132023 2:19pm Vitamin D deficiency acute September 14, 2023 2:19pm Afib acute November 21, 2 024 9:22am ASHD (arteriosclerotic heart disease) acute November 21 9:22am CHF (congestive heart failure) acute November 22, 2023 9:22am CKD (chronic kidney disease) stage 4, GFR 15-29 ml/min acute November 22, 2023 9:22am Diabetes mellitus acute November 22, 2023 9:22am Diabetic neuropathy acute Aug t 2023 9:22am HTN (hypertension) acute November 22, 2023 9:22am MGUS (monoclonal gammopathy of unknown significance) acute November 9:22am PAD (peripheral artery disease) acute November 21 9:22am [id number] acute November 22, 2023 9:22am Vitamin D deficiency acute Augu st 2023 9:22am BMI greater than 40 acute Octob er 2023 10:44am Diabetic neuropathy acute Octob er 2023 10:44am Dietary counseling and surveillance acute January 14 10:44am Diminished pulses in lower extremity acute January 14 10:44am Hyperlipidemia LDL goal <100 acute January 15, 2024 10:44am [id number] acute January 15, 2024 10:44am Vitamin D deficiency acute Octo huong 2023 10:44am Acute UTI acute February 11, 2024 8:34pm Adrenal nodule acute February 012023 8:34pm Atrial fibrillation acute 2023 8:34pm Chronic anticoagulation acute N ovember 2023 8:34pm Chronic kidney disease, stag e 4 (severe) acute February 10 8:34pm Diarrhea acute February 11, 2024 8:34pm Hypertension acute February 8:34pm Insulin dependent type 2 diabetes mellitus acute February 11, 2024 8:34pm Mild dehydration acute February 11, 2024 8:34pm Nonischemic cardiomyopathy acute February 11, 2024 8:34pm Pancreatic cyst acute February 11, 2024 8:34pm Pulmonary nodule acute February 11, 2024 8:34pm Sepsis acute February 11, 2024 8:34pm Urinary tract infection acute N ovember 2023 8:34pm Weakness of both lower extremities acute February 10 8:34pm Plan of Treatment Author Elda [facility] Authored September 14, 2023 3:16 pm Diabetes type 2 diagnosed in 2013 Past CAD- no A fib , CHF +- Dr. Solares CKD +, sees nephro- Dr. Dey MGUS- sees service liaison representative had foot ulcer in the past, having [...] D obtain ultrasound lower extremity [facility] Authored August 25, 2023 7:43a m will start antibiotics will give a dose of ceftriaxone in the office in 7 clindamycin along with Bactroban to his pharmacy. Author [facility] January 15, 2024 2 :46pm Diabetes type 2 diagnosed in 2013 Past CAD- no A fib , CHF +- Dr. Solares CKD +, sees nephro- Dr. Dey MGUS- sees service liaison representative had foot ulcer in the past, having [...] lower extremity; patient reports he went to [facility], no records Future Tests Future scheduled test information is unavailable Pending Tests Test Name Ordered Date Scheduled Date US art doppler w press UE BI September 14, 2023 2:1 3pm PT Treatment Clarification February 13, 2024 1 1:00am February 13, 2024 11:00am Future Visits Future appointment information is unavailable Referrals to Other Providers Reason for Referral Referral Start Date Provider Provider Contact Information Provider Address Erwin gregory MD Work Phone: [phone] [place] [address] Eriwn Velasquez MD Work Phone: [phone] [place] [address] Erwin gregory MD Work Phone: [phone] [place] [phone] Future Procedures Procedure Name Ordered Date Scheduled Date Testosterone, Free and Total November 22, 2023 1 2:03pm Care Coordination Consult January 22, 2024 2:0 1pm January 21, 2024 11:00pm Wound/ET Consult January 22, 2024 2:01pm Octob er 2023 11:00pm Discharge Order February 16, 2024 2:36pm Novem huong 2023 2:36pm Placement to Observation February 11, 2024 8:3 4pm February 11, 2024 8:34pm Wound/ET Consult February 12, 2024 7:07am Margoth jones 2023 12:00am OT Treatment Clarification February 13, 2024 1 2:14pm February 13, 2024 12:14pm Consult to Physician February 11, 2024 6:27pm February 11, 2024 12:00am Future Medications Future medication information is unavailable Patient Instructions Instruction Admit Date Antibiotic Form Leg Edema (ED) January 22, 2024 10:43am Sulfamethoxazole/Trimethopri m (By mouth) Warfarin (By mouth) Heart Failure (DC) Urinary Tract Infection in Men (DC) Urinary Tract Infection in Older Adults (DC) February 11, 2024 8:34pm Goals Acute Goals Author Authored Date Verbalizes/Demonstrates Unde rstanding *Demonstrates understanding of teaching [facility] February 16, 2024 7:44pm Participate in Discharge Narinder nning In order to achieve this outcome, the patient/ and or family will: * assist in identification of DME needs * assist in identification of community resource needs * assist in identification of appropriate discharge destination [facility] February 16, 2024 7:44pm Develop pain management prog eric In order to achieve this outcome the patient will: * Use the pain scale appropriately * Identify options for pain control - Analgesics - Narcotics - Non-medication measures [facility] February 16, 2024 7:44pm Increase knowledge regarding pain mgmt *Demonstrates understanding of teaching [facility] February 16, 2024 5:03pm Exhibit no s/s alt. glucose metabolism * Maintains optimal blood glucose level * Blood glucose monitored as scheduled * Patient will notify nurse when meal tray has arrived * Out of prescribed acceptable range, notify . [facility] February 16, 2024 7:44pm Reduced risk of bleeding * Exhibits lab results WNL [facility] February 16, 2024 7:44pm Maintain adequate fluid volu me * Maintains vital signs WNL * Maintains clear breath sounds * Exhibits decreasing edema * Maintains adequate intake and output * Maintains stable weight * Maintains optimal lab values [facility] February 16, 2024 7:44pm Adapt to partial or total vi alexander loss * Uses corrective lenses * Performs ADL's * Uses safety measures [facility] February 16, 2024 7:44pm Exhibit optimal tissue integ rity * Exhibits granulation/healing at site * Exhibits decreased drainage at site * Exhibits no s/s of infection * Exhibits a decrease in lesion size * Maintains nutritional status * Maintains hydration status * Maintains optimal lab values [facility] February 16, 2024 7:44pm Remain free of injury *Follows Safety Interventions [facility] February 16, 2024 7:44pm Maintains or Improves Mobili ty Maintains mobility or exhibits improvement in mobility [facility] February 16, 2024 7:44pm Improved infection * Maintains vital signs WNL * Evidences no purulent drainage from wounds, incisions, and tubes * Maintains optimal lab values [facility] February 16, 2024 7:44pm Exhibits optimal GI function *Exhibits adequate intake and output *Exhibits adequate nutritional status [facility] February 16, 2024 7:44pm Maintain fluid and electroly te balance * Understands adequate fluid intake * Maintains vital signs WNL * Maintains optimal electrolyte values * Maintains balanced intake and output * Maintains BUN and Hct WNL * Maintains normal skin turgor [facility] February 16, 2024 5:03pm Exhibit intact skin * Skin remains intact [facility] February 16, 2024 7:44pm Improved nutritional status [facility] February 16, 2024 7:44pm *Improved Functional ADLs In order to achieve this outcome the patient will: *Safely complete 3 grooming tasks with SBA while unsupported sitting (with/without) the use of adaptive equipment. *Safely complete bathing with MOD A (with/without) the use of adaptive equipment *Safely complete lower body dressing/undressing with MIN A (with/without) the use of adaptive equipment *Safely don/doff shoes and socks with SBA (with/without) the use of adaptive equipment *Safely complete toileting with MOD A (with/without) adaptive equipment or durable medical equipment. [facility] February 16, 2024 7:44pm *Understands Home Program fo r OT In order to achieve this outcome the patient &/or caregiver will: * Demonstrate understanding of injury/ disease * Demonstrate understanding of functional limitations * Demonstrate understanding of safety guidelines and precautions * [place] understanding of rehab process * Demonstrate understanding of rehab potential * Demonstrate independence with instructed materials * Demonstrate good energy conservation techniques * Demonstrate good technique for positioning [facility] February 16, 2024 7:44pm *Understands Home Program fo r PT In order to achieve this outcome the patient &/or caregiver will: * Demonstrate understanding of functional limitations * Demonstrate understanding of safety awareness * Demonstrate independence with use of assistive device [facility] February 16, 2024 7:44pm *Improve Functional Mobility In order to achieve this outcome the patient will: *Improve bed mobility to SBA *Improve transfers to SBA with walker *Improve standing balance to good for 5 mins to reduce risk of falling with ADLs. *Improve toilet transfers to MIN A with walker [facility] February 16, 2024 7:44pm *Improve Locomotion Mobility In order to achieve this outcome the patient will: *Improve gait to SBA using least restrictive assistive device for 50 feet to meet home/community needs [facility] February 16, 2024 7:44pm *Achieve Optimal Muscle Stre ngth In order to achieve this outcome the patient will: * Patient will be able to perform 10 repetitions of the BLE strengthening exercises with SBA * Increase strength to improve function for gait and transfers * Patient will be able to perform 15 repetitions of the BUE strengthening exercises with SBA * Increase strength to improve function for performance and safety in ADLs and functional transfers [facility] February 16, 2024 7:44pm *Achieve Functional Enduranc e In order to achieve this outcome the patient will: *Patient will tolerate therapeutic activity for 10 minutes without a break *Improve endurance for functional/ADL activity [facility] February 16, 2024 7:44pm *Improved Safety Awareness In order to achieve this outcome the patient will: *Request help when needed *Demonstrate increased safety during ADL's *Demonstrate increased safety during functional mobility tasks [facility] February 16, 2024 7:44pm Adequate cardiac output *Maintains vital signs WNL *Maintains adequate urine output [facility] February 16, 2024 7:44pm Exhibit optimal tissue integ rity * Exhibits granulation/healing at site * Exhibits decreased drainage at site * Exhibits no s/s of infection * Exhibits a decrease in lesion size * Maintains nutritional status * Maintains hydration status * Maintains optimal lab values [facility] December 06, 2023 2:0 8pm Hospital Discharge Instructions Additional Instructions Discharge disposition: Patient was admitted to the hospital for weakness and found to have lower blood pressures Several of his blood pressure medications were placed on hold including losartan 50 mg daily and spironolactone 50 mg daily. These are to remain on hold until you follow-up with your primary care provider in regards to resuming them based on your blood pressures at the time. Patient is to continue his Lasix however the dose has been decreased to 40 mg daily instead of his usual home dose of 80 mg twice a day Patient is to continue his Coreg however this dose has been decreased to 12.5 mg twice a day instead of his usual home dose of 25 mg twice a day. Monitor blood pressures Take caution while standing, rising, or moving Change positions slowly taking a break between each position change If you standing feel dizzy sit back down and take a break Patient was diagnosed with a urinary tract infection during his admission Take all medications as prescribed even if feeling better Bactrim twice a day, course be completed on 02/16. Attached is information on this medication. Eat well balanced meals and stay hydrated Keep active to remain strong Avoid use of diapers or pads Good ana cristina Care every 2 hours Trend urine output Strict bleeding precautions since you are on Warfarin including shaving with an electric razor, holding pressure for greater than 20 minutes for injury, protection of had with any falls, etc. warfarin dose has been decreased to 2.5 mg daily continue to PT/INR for dose adjustment Patient had diarrhea likely secondary to Ozempic C diff was negative he is to follow-up with primary care provider and discuss his Ozempic medication Patient had several incidental finding seen on imaging including: Multiple pulmonary nodules measuring up to 9 mm in the right lower lobe. Recommend follow-up low-dose noncontrast CT of the chest in 3-6 months. 8 mm pancreatic body cyst Recommend follow-up CT abdomen and pelvis with contrast in 2 years. 2.0 cm left adrenal nodule, probably benign Consider follow-up adrenal CT in 12 months These follow-up images can be ordered by your primary care provider Encouraged to continue with yearly vaccinations Return to the emergency department if he developed sudden shortness of breath, chest pain, nausea, vomiting, upset stomach or intractable diarrhea Return to the emergency department if you develop fever greater than 101.5 Follow-up with the primary care physician within 1 weeks Thank you for choosing [facility] for your healthcare needs Consultation Note Author Joselyn Houser [facility] Note Date/Time February 14, 2024 5:08pm [facility] [address] [place] [address] Neurosurgical Consult Note Signed Patient: Erwin Isaac MR#: [id number] : 1950 Acct:[id number] Age: 73 ADM Date: 02/11/24 Loc: [id number] 324-[address]: Gail Rothman PA-C cc: Devora Wallace PA-C; Erwin Gardner MD; Gail Rothman Assessment and Plan Assessment and plan (1) Urinary tract infection: Code(s): N39.0 - Urinary tract infection, site not specified Status: Acute Plan Mr. Isaac is a 73-year-old male with history of DM, CKD, Afib on coumadin who wasadmitted earlier this week with inability to stand unsupported and was found to have a UTI in addition to an elevated WBC and hypotension. He has symptomatically improved since being treated in the hospital and has been able to stand with physical therapy. He does have hip flexor weakness but has full strength distally. I reviewed his MRI lumbar spine which shows multilevel degenerative changes without acute pathology or severe central stenosis. I suspect his presenting symptoms are related to his underlying infection and exacerbation of other medical comorbidities. I do not recommend any surgical intervention to his spine. He should work with physical therapy both in and out of the hospital. Consult date: 02/14/24 HPI: Erwin Isaac is a 73 year old male with history of DM, CKD, Afib on coumadin who was admitted earlier this week with lower-extremity weakness. He describes fairly significant neuropathy in his legs that make it difficult for him to walkat baseline. On Monday, he states he suddenly could not move his feet to walk; however, upon further questioning, it sounds like he was unable to support his weight to stand. He denies new pain or worsening paresthesias in the legs. On admission, he was found to be hypotensive with an elevated WBC and UTI. He has noticed improvement since admission and has now been able to stand with therapy. Review of Systems Review of Systems: All systems reviewed & are unremarkable except as noted in HPI and below PMFSH Past Medical History Medical History (Updated 02/12/24 @ 14:12 by Gela Pedraza APRN) Asthma Atrial fibrillation Basal cell carcinoma (BCC) of brow Chronic anticoagulation Chronic kidney disease, stage 4 (severe) Hypertension Insulin dependent type 2 diabetes mellitus Mixed hyperlipidemia Multiple myeloma poorly documented Nonischemic cardiomyopathy Urticaria Venous insufficiency Vitamin D deficiency Surgical History Surgical History (Updated 02/11/24 @ 23:24 by Rima Goss PA-C) History of arthroscopy of both knees History of basal cell carcinoma excision History of bilateral cataract extraction History of cardiac catheterization no obstructive disease per patient report History of cardioversion History of colonoscopy with polypectomy Family History Family History Father Family history of emphysema, Onset Age: 69 Social History Social History (Updated 02/11/24 @ 23:19 by Rima Goss PA-C) Social History: Surrogate medical decision maker: Jose Isaac (son) or Josy Weston (sibling). Code status: Full code. Smoking status: Never smoker Alcohol intake: current Alcohol use details: social alcohol use in moderation Substance use: never Substance use type: does not use Do You Feel Safe in your Home?: No Lack of Transportation: No Lack of Food: Never True Current Housing: I Have Housing Concerned About Future Housing: No Difficulty Paying Gas/Electric Bills: No Difficulty Paying for Meds: No Currently Unemployed: No Education: High School Diploma/GED Difficulty w/ Childcare or Family Care: No Living arrangements: alone Additional living arrangements comments: the patient lives in his own home in [place] Occupation/Education: retired Spiritual care concerns: No Meds Home Medications and Allergies Home Medications Medication Instructions Recorded Confirmed Type carvedilol 25 mg tablet 25 mg PO BID 01/30/19 02/11/24 History losartan 50 mg tablet 50 mg PO DAILY 01/30/19 02/11/24 History potassium chloride 20 mEq 20 meq PO DAILY 01/30/19 02/11/24 History tablet,extended release spironolactone 50 mg tablet 50 mg PO DAILY 01/30/19 02/11/24 History warfarin 5 mg tablet 5 mg PO DAILY 11/22/19 02/11/24 History furosemide 80 mg tablet 80 mg PO BID 05/23/23 02/11/24 History cholecalciferol (vitamin D3) 1,250 1,250 mcg PO WEEKLY #14 tabs 09/14/23 02/11/24 Rx mcg (50,000 unit) tablet semaglutide 1 mg/dose (2 mg/1.5 1 mg subcut WEEKLY 11/01/23 02/11/24 History mL) subcutaneous pen injector flash glucose sensor (FreeStyle #2 kits 11/24/23 02/11/24 Rx Germania 2 Sensor kit) pen needle, diabetic 32 gauge x #200 ea 12/13/23 02/11/24 Rx 5/32 (BD Lona 2nd Gen Pen Needle) glucagon 1 mg/0.2 mL subcutaneous 1 mg (0.2 mL) subcut ONCE #0.4 mL 01/15/24 02/11/24 Rx auto-injector (Gvoke HypoPen 2-Pack) insulin regular hum U-500 conc 500 40 unit subcut DAILY 01/15/24 02/11/24 History unit/mL(3 mL) subcut pen (Humulin R U-500 (Conc) Insulin Kwikpen) atorvastatin 80 mg tablet 80 mg PO DAILY #90 tabs 01/24/24 02/11/24 Rx mupirocin 2 % topical ointment 1 applic topical TID 7 days #30 02/06/24 02/11/24Rx grams fenofibrate 54 mg tablet 54 mg PO DAILY 02/11/24 02/11/24 History Allergies Allergy/AdvReac Type Severity Reaction Status Date / Time No Known Allergies Allergy Verified 02/11/24 13:19 Vital Signs Vital Signs - 24 hr 02/13/24 20:05 02/13/24 21:30 02/14/24 06:00 Temperature 96.9 F L 96.7 F L Pulse Rate 84 73 Respiratory Rate 18 20 Blood Pressure 112/58 L 104/54 L Pulse Oximetry 100 98 Oxygen Delivery Room Air 02/14/24 07:58 02/14/24 08:00 02/14/24 14:00 Temperature 97.1 F L Pulse Rate 89 89 87 Respiratory Rate 20 18 Blood Pressure 104/47 L Pulse Oximetry 98 98 Oxygen Delivery Room Air Exam Narrative: BLE 3/5 hip flexors, otherwise full strength Decreased but symmetric sensation below knees Lower legs are edematous, red Unless otherwise stated above, the patient's physical exam is as follows: General: -Well developed and well nourished. No a cute distress. Cooperative with exam. Mental status: -Awake and oriented to person, place, an d time. Integumentary: -No obvious skin lesions or masses Motor: -Muscle tone normal without spasticity o f flaccidity. No atrophy. No fasciculat ions. -No pronator drift -Right upper extremity: deltoid 5/5, bic eps 5/5, triceps 5/5, wrist extensors 5/5, wrist flexors 5/5, intrinsics 5/5 -Left upper extremity: deltoid 5/5, [place] ps 5/5, triceps 5/5, wrist extensors 5/5, wrist flexors 5/5, intrinsics 5/5 -Right lower extremity: iliopsoas 5/5, q uadriceps 5/5, hamstrings 5/5, tibialis anterior 5/5, gastroc-soleus 5/5, EHL 5/5 -Left lower extremity: iliopsoas 5/5, qu adriceps 5/5, hamstrings 5/5, tibialis anterior 5/5, gastroc-soleus 5/5, EHL 5/5 Sensory: -Intact to light touch throughout -Normal proprioception throughout Results Labs 02/14/24 06:15 02/14/24 06:16 Labs: Short CBC 02/14/24 Range/Units 06:15 WBC 7.7 (4.5-10.0) K/mm3 Hgb 9.4 L (14.0-18.0) g/dL Hct 28.6 L (42.0-52.0) % Plt Count 209 (150-375) k/mm3 BMP 02/14/24 06:16 Sodium 136 L Potassium 3.7 Chloride 102 Carbon Dioxide 27 BUN 39 H Creatinine 1.70 H Glucose 157 H Calcium 9.1 Imaging My impression: I personally reviewed the MRI Lumbar which shows multilevel degenerative changesand mild to moderate stenosis at L3-4 and L4-5 without acute pathology or severestenosis This report may have been done utilizing a voice recognition system. Attempts have been made to correct errors. However, there may be uncorrected grammatical,spelling, and recognition errors present. Report Initialized date/time: Joselyn Houser MD 02/14/241707 Electronically signed by: Joselyn Houser MD 02/14/241707 Discharge Summary Note Author Gail Rothman [facility] Note Date/Time February 16, 2024 4:53pm [place] [id number] [facility] [address] [place], [place] [id number] Discharge Summary Signed Patient: Erwin Isaac MR#: [id number] : 1950 Acct:[id number] Age: 73 ADM Date: 02/11/24 Loc: [id number] 324-[address]: Gail Rothman PA-C cc: Devora Wallace PA-C; Erwin Gardner MD; Gail Rothman DS: Admitting Diagnosis Discharge Date Admitting Diagnosis sepsis UTI Weakness in both lower extermities A fib HTN Nonischemic cardiomyopathy CKD DM Diarrhea Pulmonary nodule Adrenal nodule pancreatic cyst DS: Discharge Diagnosis Discharge Diagnosis (1) Sepsis: Code(s): A41.9 - Sepsis, unspecified organism Status: Acute (2) Urinary tract infection: Code(s): N39.0 - Urinary tract infection, site not specified Status: Acute (3) Weakness of both lower extremities: Code(s): R29.898 - Other symptoms and signs involving the musculoskeletal system Status: Acute (4) Atrial fibrillation: Code(s): I48.91 - Unspecified atrial fibrillation Status: Acute (5) Hypertension: Code(s): I10 - Essential (primary) hypertension Status: Acute (6) Nonischemic cardiomyopathy: Code(s): I42.8 - Other cardiomyopathies Status: Acute (7) Chronic kidney disease, stage 4 (severe): Code(s): N18.4 - Chronic kidney disease, stage 4 (severe) Status: Acute (8) Insulin dependent type 2 diabetes mellitus: Code(s): E11.9 - Type 2 diabetes mellitus without complications; Z79.4 - penitentiary (current) use of insulin Status: Acute (9) Diarrhea: Code(s): R19.7 - Diarrhea, unspecified Status: Acute (10) Pulmonary nodule: Code(s): R91.1 - Solitary pulmonary nodule Status: Acute (11) Adrenal nodule: Code(s): E27.9 - Disorder of adrenal gland, unspecified Status: Acute (12) Pancreatic cyst: Code(s): K86.2 - Cyst of pancreas Status: Acute DS: Summary Hospital Course Reason for hospitalization: sepsis UTI Weakness in both lower extermities A fib HTN Nonischemic cardiomyopathy CKD DM Diarrhea Pulmonary nodule Adrenal nodule pancreatic cyst Hospital Course: 73-year-old male with multiple medical problems including atrial fibrillation, nonischemic cardiomyopathy, hypertension, hyperlipidemia, and insulin-dependent type 2 diabetes mellitus who presented to the emergency department via EMS for evaluation of weakness. On admission patient was found to be hypotensive with blood pressures in the 90 systolic. He was meeting sepsis criteria with hypotension and leukocytosis. His urinalysis was concerning for urinary tract infection. Blood cultures were drawn and show no growth to date. He was started on IV antibiotics at that time. Urine culture grew Citrobacter koseri and patient was transitioned to p.o. Bactrim to complete his course. Due to patient's ongoing hypotension his antihypertensive medications were placed hold including losartan, Lasix, spironolactone. He remains on his Coreg at a lower dose due to ongoing AFib. Patient's AFib remained rate controlled on this current Coreg dose and his blood pressures remained stable despite being off hisantihypertensives. At time of discharge place patient on a lower dose of his Lasix and discussed with him that he has a follow-up with his primary care provider or Cardiology in terms of resuming his losartan and spironolactone. Hestates understanding. Patient was endorsing lower extremity weakness on admission and had a chest/abdomen/ pelvis CT performed which showed several incidental findings. Multiple pulmonary nodules measuring up to 9 mm in the right lower lobe. Recommend follow-up low-dose noncontrast CT of the chest in 3-6 months. 8 mm pancreatic body cyst, recommend follow-up CT abdomen and pelvis with contrast in 2 years. 2.0 cm left adrenal nodule, probably benign, consider follow-up adrenal CT in 12 months, unless there is a history of cancer, in whichcase consider referral for nonemergent outpatient adrenal CT now. Discussed these findings with patient and that he is to follow up for imaging with his primary care provider. Patient also had a lumbar MRI performed which showed moderate lumbar spondylosis. Patient worked with therapy throughout his admission and will be discharged to SNF. At time of discharge patient had no complaints denies chest pain, shortness a breath, palpitations, lightheaded/ dizziness, nausea / vomiting, and abdominal pain. Patient discharged to SNF in a stable condition. He is to continue his antibiotics as prescribed and follow-up with his primary care provider and Cardiology as scheduled. Status at Discharge Functional status at discharge: uses cane/walker Time Spent with Patient Time attestation: Total time spent providing and/or coordinating discharge services: Time spent: Greater than 30 minutes Exam Narrative: AF HR 64 RR 16 SpO2 99 BP 108/61 General: male in no acute respiratory distress who is nontoxic appearing, sitting up in his chair HEENT: Normocephalic. Atraumatic. Extraocular movement intact. Sclera clear and anicteric. No facial asymmetry. Chest: Lungs are clear to auscultation bilaterally. No wheezes or crackles. CV: Heart was regular rate and rhythm. S1/S2. No murmurs, gallops, or rubs. Abd: Abdomen was soft. Nontender. Nondistended. Positive bowel sounds. No organomegaly or masses. Ext: No clubbing, cyanosis, or edema. 1+ DP pulses bilaterally. Neuro: Patient is alert. Cranial nerves 2-12 are intact. Speech is clear. DS: Data Data Completed and Pending Completed studies during hospitalization: lumbar spine MRI chest/abdomen/ pelvis / spine CT chest x-ray Labs on day of discharge: Labs from last 24 hours 02/16/24 02/16/24 02/16/24 11:54 08:21 06:28 WBC 9.1 RBC 3.05 L Hgb 9.9 L Hct 29.6 L MCV 97.0 MCH 32.5 MCHC 33.4 RDW 14.3 Plt Count 221 MPV 9.8 PT 25.3 H INR 2.3 Sodium 138 Potassium 4.0 Chloride 104 Carbon Dioxide 27 Anion Gap 7 BUN 30 H Creatinine 1.70 H Estim Creat Clear Calc 51 Estimated GFR 40 L Glucose 135 H POC Capillary Glucose 194 H 147 H Calcium 9.5 02/15/24 02/15/24 21:46 16:52 WBC RBC Hgb Hct MCV MCH MCHC RDW Plt Count MPV PT INR Sodium Potassium Chloride Carbon Dioxide Anion Gap BUN Creatinine Estim Creat Clear Calc Estimated GFR Glucose POC Capillary Glucose 163 H 159 H Calcium Preliminary micro results at discharge 02/11/24 16:29 Blood Culture - Preliminary Blood 02/11/24 16:17 Blood Culture - Preliminary Blood Discharge Plan Discharge Attending physician on discharge: Radha Nation Consulting providers: Rhys Lopez Discharging Clinician: Gail Rothman Anticipated Discharge Date/Time: 02/16/24 14:22 Patient Disposition: SNF Activity: as tolerated Diet: as tolerated, heart healthy and diabetic Discharge Instructions: Discharge disposition: Patient was admitted to the hospital for weakness and found to have lower blood pressures Several of his blood pressure medications were placed on hold including [id number] mg daily and spironolactone 50 mg daily. These are to remain on hold until you follow-up with your primary care provider in regards to resuming them based on your blood pressures at the time. Patient is to continue his Lasix however the dose has been decreased to 40 mg daily instead of his usual home dose of 80 mg twice a day Patient is to continue his Coreg however this dose has been decreased to 12.5 mgtwice a day instead of his usual home dose of 25 mg twice a day. Monitor blood pressures Take caution while standing, rising, or moving Change positions slowly taking a break between each position change If you standing feel dizzy sit back down and take a break Patient was diagnosed with a urinary tract infection during his admission Take all medications as prescribed even if feeling better Bactrim twice a day, course be completed on 02/16. Attached is information onthis medication. Eat well balanced meals and stay hydrated Keep active to remain strong Avoid use of diapers or pads Good ana cristina Care every 2 hours Trend urine output Strict bleeding precautions since you are on Warfarin including shaving with an electric razor, holding pressure for greater than 20 minutes for injury, protection of had with any falls, etc. warfarin dose has been decreased to 2.5 mg daily continue to PT/INR for dose adjustment Patient had diarrhea likely secondary to Ozempic C diff was negative he is to follow-up with primary care provider and discuss his Ozempic medication Patient had several incidental finding seen on imaging including: * Multiple pulmonary nodules measuring up to 9 mm in the right lower lobe. Recommend follow-up low-dose noncontrast CT of the chest in 3-6 months. * 8 mm pancreatic body cyst Recommend follow-up CT abdomen and pelvis with contrast in 2 years. * 2.0 cm left adrenal nodule, probably benign Consider follow-up adrenal CT in 12 months These follow-up images can be ordered by your primary care provider Encouraged to continue with yearly vaccinations Return to the emergency department if he developed sudden shortness of breath, chest pain, nausea, vomiting, upset stomach or intractable diarrhea Return to the emergency department if you develop fever greater than 101.5 Follow-up with the primary care physician within 1 weeks Thank you for choosing [facility] for your healthcare needs Patient Instructions: Sulfamethoxazole/Trimethoprim (By mouth), Warfarin (By mouth), Heart Failure (DC), Urinary Tract Infection in Men (DC), Urinary Tract Infection in Older Adults (DC) Patient Language: Ghanaian Stand Alone Forms: General Discharge Information Follow-up/Referrals: Erwin Velasquez MD [Physician] - Call for Appointment Erwin Gardner MD [Primary Care Provider] - 1 Week Discharge Medications: New sulfamethoxazole-trimethoprim 800-160 mg Tablet 1 tab PO Q12HR Qty: 3 0RF Continued cholecalciferol (vitamin D3) 1,250 mcg (50,000 unit) tablet 1,250 mcg PO WEEKLY Qty: 14 2RF Rx Instructions: pt takes on Mondays Humulin R U-500 (Conc) Kwikpen 500 unit/mL (3 mL) insulin pen 40 unit subcut DAILY Patient Comments: before breakfast Gvoke HypoPen 2-Pack 1 mg/0.2 mL auto-injector 1 mg subcut ONCE Qty: 0.4 4RF Rx Instructions: may repeat once after 15 minutes if no response fenofibrate 54 mg tablet 54 mg PO DAILY potassium chloride 20 mEq Tablet Extended Release 20 meq PO DAILY semaglutide 1 mg/dose (2 mg/1.5 mL) Pen Injector 1 mg SUBCUT WEEKLY Rx Instructions: takes on Mondays (DME) FreeStyle Germania 2 Sensor Kit See Rx Instructions .ROUTE .COMPLEX Qty: 2 6RF Dose Instruction: DIRECTED TO CHECK BLOOD SUGARS 3 TIMES Rx Instructions: DIRECTED TO CHECK BLOOD SUGARS 3 TIMES (DME) pen needle, diabetic [BD Lona 2nd Gen Pen Needle] 32 gauge x 5/32 needle See Rx Instructions .ROUTE .COMPLEX Qty: 200 1RF Dose Instruction: USE TWICE DAILY Rx Instructions: USE TWICE DAILY atorvastatin 80 mg tablet 80 mg PO DAILY Qty: 90 1RF mupirocin 2 % ointment 1 applic TOPICAL TID 7 Days Qty: 30 0RF Rx Instructions: apply to leg wounds Changed carvedilol 25 mg Tablet 12.5 mg PO BID Qty: 60 0RF furosemide 80 mg tablet 40 mg PO DAILY Qty: 15 0RF warfarin 5 mg tablet 2.5 mg PO DAILY Qty: 15 0RF Patient Comments: pt states he takes 1/2 tab on Tues, Thurs, Sat, and Sun; 1 tablet on Monday, Mon, Monday Held losartan 50 mg Tablet 50 mg PO DAILY Hold Instructions: Resume on 03/11/24. hold until follow-up with PCP or Cardiology spironolactone 50 mg Tablet 50 mg PO DAILY Hold Instructions: Resume on 03/11/24. hold until follow-up with PCP or Cardiology Date of admission: 02/11/24 20:34 Primary Care Provider: Erwin Gardner Admitting Provider: Joann Sifuentes V. Attending physician on admission: Gail Rothman Condition: Stable Quality VTE Prophylaxis VTE prophylaxis: pharmacologic ordered Hospitalist MIPS Heart Failure (Exclusion) Patient has history of Heart Transplant or Left Ventricular Assistive Device?: No IF YES, STOP HERE Heart Failure (Qualifier) Patient has current or prior documentation of LVEF less than or equal to 40%, ormod/servere depressed LVSF?: No IF NO, STOP HERE This report may have been done utilizing a voice recognition system. Attempts have been made to correct errors. However, there may be uncorrected grammatical,spelling, and recognition errors present. Report Initialized date/time: Gail Rothman 02/16/24 / 1438 Electronically signed by: Gail Rothman 02/16/24 1653 History & Physical Note Author Rima Santiam Hospital Note Date/Time February 11, 2024 11:47pm [facility] [address] [place] [address] History & Physical Report Signed with Zach Patient: Ewrin Isaac MR#: [id number] : 1950 Acct:[id number] Age: 73 ADM Date: 02/11/24 Loc: [id number] 324-[address]: Joann Sifuentes M.D. cc: Joann Sifuentes MD; Devora Wallace PA-C; Erwin Gardner MD~ ADDENDUM The patient takes U500, 60 units before breakfast. His appetite has not been great and he really isn't eating right now. For now we will hold his insulin anddo sliding scale insulin. In a day or to consider adding long-acting insulin depending on his requirements. Addendum Documented By: Rima Goss 02/11/24 1146 Addendum Signed By: <Electronically signed by Rima Goss>01/24 2347 H&P: HPI History of Present Illness Date/Time: 02/11/24 19:30 Chief Complaint: Weakness. Narrative: This is a 73-year-old male with multiple medical problems including atrial fibrillation, nonischemic cardiomyopathy, hypertension, hyperlipidemia, and insulin-dependent type 2 diabetes mellitus who presented to the emergency department via EMS for evaluation of weakness. The patient and his son provides the following history. He had a cold over a month ago and never really bounced back to baseline. He has become increasingly weak and debilitated it has been worse in the past 1 week. He has had 3 falls which he attributes to significant weakness in his legs. He has neuropathy from his diabetes which causes some issues with his balance as well. Luckily he has not sustained any injuries or head trauma. His appetite has been poor and he just generally does not feel well. For a couple of days he has really not even been able to get out of his recliner in his son has been coming over to bring him meals and help clean him up after going to the bathroom. He has been having issues with incontinence and loose stools. Today he was unable to stand up and he came in for evaluation. He denies syncope, near syncope, headache, neck ache, fever, sweats, sinus congestion, sore throat, cough, chest pain, pleuritic pain, racing heart, shortness of breath, cough, abdominal pain, back pain, dysuria, and open wounds.He denies saddle anaesthesia. In the ED: He was afebrile on arrival. Blood pressure has been as low as 96/52 but has improved with IV fluids. SpO2 is in the upper 90s on room air. He is in rate controlled atrial fibrillation. Labs were significant for WBC count of 20.1, hemoglobin 10.4, platelet 166, INR 3.8, PTT 37.9, PTT 59.2, sodium 130, chloride 93, BUN 41, creatinine 2.40, glucose 192, troponin less than 0.012, proBNP 1270, CRP 28.3, lactic acid 1.3. Urinalysis was positive for trace ketones, 1+ blood, 3+ leukocyte esterase, greater than 100 WBC, and 4+ bacteria.Chest x-ray was clear. CT of the chest, abdomen, pelvis, and spine did not show any acute findings. He was given a dose of ceftriaxone and a 1 L normal saline bolus and he is being admitted in this setting for further treatment. Review of Systems Review of Systems: 12 systems were reviewed and are negativ e except for as per HPI. [facility] Past Medical History Medical History (Updated 02/11/24 @ 23:23 by Rima Goss PA-C) Asthma Atrial fibrillation Basal cell carcinoma (BCC) of brow Chronic anticoagulation Chronic kidney disease, stage 4 (severe) Hypertension Insulin dependent type 2 diabetes mellitus Mixed hyperlipidemia Multiple myeloma poorly documented Nonischemic cardiomyopathy Urticaria Venous insufficiency Vitamin D deficiency Surgical History Surgical History (Updated 02/11/24 @ 23:24 by Rima Goss PA-C) History of arthroscopy of both knees History of basal cell carcinoma excision History of bilateral cataract extraction History of cardiac catheterization no obstructive disease per patient report History of cardioversion History of colonoscopy with polypectomy Family History Family History Father Family history of emphysema, Onset Age: 69 Social History Social History (Updated 02/11/24 @ 23:19 by Rima Goss PA-C) Social History: Surrogate medical decision maker: Jose Isaac (son) or Josy Weston (sibling). Code status: Full code. Smoking status: Never smoker Alcohol intake: current Alcohol use details: social alcohol use in moderation Substance use: never Substance use type: does not use Do You Feel Safe in your Home?: No Lack of Transportation: No Lack of Food: Never True Current Housing: I Have Housing Concerned About Future Housing: No Difficulty Paying Gas/Electric Bills: No Difficulty Paying for Meds: No Currently Unemployed: No Education: High School Diploma/GED Difficulty w/ Childcare or Family Care: No Living arrangements: alone Additional living arrangements comments: the patient lives in his own home in [place] Occupation/Education: retired Spiritual care concerns: No Meds Home Medications and Allergies Home Medications Medication Instructions Recorded Confirmed Type carvedilol 25 mg tablet 25 mg PO BID 01/30/19 02/11/24 History losartan 50 mg tablet 50 mg PO DAILY 01/30/19 02/11/24 History potassium chloride 20 mEq 20 meq PO DAILY 01/30/19 02/11/24 History tablet,extended release spironolactone 50 mg tablet 50 mg PO DAILY 01/30/19 02/11/24 History warfarin 5 mg tablet 5 mg PO DAILY 11/22/19 02/11/24 History furosemide 80 mg tablet 80 mg PO BID 05/23/23 02/11/24 History cholecalciferol (vitamin D3) 1,250 1,250 mcg PO WEEKLY #14 tabs 09/14/23 02/11/24 Rx mcg (50,000 unit) tablet semaglutide 1 mg/dose (2 mg/1.5 1 mg subcut WEEKLY 11/01/23 02/11/24 History mL) subcutaneous pen injector flash glucose sensor (FreeStyle #2 kits 11/24/23 02/11/24 Rx Germania 2 Sensor kit) pen needle, diabetic 32 gauge x #200 ea 12/13/23 02/11/24 Rx 32 (BD Lona 2nd Gen Pen Needle) glucagon 1 mg/0.2 mL subcutaneous 1 mg (0.2 mL) subcut ONCE #0.4 mL 01/15/24 02/11/24 Rx auto-injector (Gvoke HypoPen 2-Pack) insulin regular hum U-500 conc 500 40 unit subcut DAILY 01/15/24 02/11/24 History unit/mL(3 mL) subcut pen (Humulin R U-500 (Conc) Insulin Kwikpen) atorvastatin 80 mg tablet 80 mg PO DAILY #90 tabs 01/24/24 02/11/24 Rx mupirocin 2 % topical ointment 1 applic topical TID 7 days #30 02/06/24 02/11/24Rx grams fenofibrate 54 mg tablet 54 mg PO DAILY 02/11/24 02/11/24 History Allergies Allergy/AdvReac Type Severity Reaction Status Date / Time No Known Allergies Allergy Verified 02/11/24 13:19 Vital Signs Vital Signs - 24 hr 02/11/24 13:05 02/11/24 13:15 02/11/24 14:31 Temperature 98.5 F Pulse Rate 83 88 77 Respiratory Rate 20 21 H 21 H Blood Pressure 96/52 L 96/52 L 98/55 L Pulse Oximetry 97 100 100 Oxygen Delivery Room Air 02/11/24 16:06 02/11/24 16:58 02/11/24 16:46 Temperature Pulse Rate 95 80 81 Respiratory Rate 22 H 23 H 23 H Blood Pressure 100/44 L 103/59 L 103/49 L Pulse Oximetry 99 100 100 Oxygen Delivery 02/11/24 17:01 02/11/24 17:31 02/11/24 17:46 Temperature Pulse Rate 85 88 84 Respiratory Rate 17 21 H 18 Blood Pressure 106/52 L 104/58 L 98/46 L Pulse Oximetry 98 100 94 Oxygen Delivery 02/11/24 18:01 02/11/24 18:16 02/11/24 18:31 Temperature Pulse Rate 79 84 81 Respiratory Rate 15 21 H 24 H Blood Pressure 96/47 L 102/45 L 105/52 L Pulse Oximetry 99 100 99 Oxygen Delivery 02/11/24 21:42 02/11/24 21:43 02/11/24 21:49 Temperature Pulse Rate 91 91 Respiratory Rate 22 H 22 H Blood Pressure 117/43 L 103/62 103/62 Pulse Oximetry 98 98 Oxygen Delivery Exam Narrative: General: Chronically ill-appearing male in the semi-Cat position in bed. Weight: 130.1 kg. BMI: 38.1. HEENT: Normocephalic, atraumatic. PERRL, EOMI. Sclera anicteric. Tacky mucous membranes. Neck: Supple. No JVD or lymphadenopathy. Respiratory: Respirations are nonlabored and lungs are clear to auscultation. Cardiovascular: Irregularly irregular rate and rhythm. Gastrointestinal: Abdomen is soft, protuberant, nontender, and nondistended with positive bowel sounds. Skin: Warm and dry. Generalized pallor. Extremities: No cyanosis or clubbing. Legs are large with 2+ pitting edema. Chronic skin changes of bilateral lower legs consistent with venous stasis dermatitis. There couple of shallow ulcerations without evidence of infection. Diminished pulses in the feet. Neurological: Alert and oriented. Cranial nerves 2-12 are grossly intact. Speech is clear. No facial asymmetry. No pronator drift. He can barely lift hislegs off the bed 1 in before letting them fall. Right foot pushes seems weaker when compared to left. Hand nuisance wildlife trapper are equal bilaterally. No focal strength deficits in the upper extremities. Sensation diminished in the lower extremities. No saddle anesthesia. Psychiatric: Pleasant and cooperative with appropriate mood and flat affect. H&P: Results Labs Labs: Short CBC 02/11/24 Range/Units 13:22 WBC 20.1 H (4.5-10.0) K/mm3 Hgb 10.4 L (14.0-18.0) g/dL Hct 30.5 L (42.0-52.0) % Plt Count 166 (150-375) k/mm3 BMP 02/11/24 13:22 Sodium 130 L Potassium 4.0 Chloride 93 L Carbon Dioxide 25 BUN 41 H D Creatinine 2.40 H Glucose 192 H Calcium 8.9 Cardiac Enzymes 02/11/24 Range/Units 13:22 Troponin I < 0.012 (0.000-0.034) ng/mL Liver Function 02/11/24 Range/Units 13:22 Total Bilirubin 1.8 H (0.2-1.3) mg/dL AST 29 (17-59) U/L ALT 23 (6-50) U/L Alkaline Phosphatase 57 (38-126) U/L Albumin 3.8 (3.5-5.1) g/dL Urine 02/11/24 Range/Units 13:22 Urine Color Yellow (Yellow) Urine Appearance Turbid H (Clear) Urine pH 5.0 (5.0-9.0) Ur Specific [place] 1.012 (1.001-1.035) Urine Protein Trace (Negative) mg/dL Urine Glucose (UA) Negative (Negative) mg/dL Imaging Chest X-Ray 02/11/24 13:55 Impression: Clear lungs. Chest/Abdomen/Pelvis/Spine CT 02/11/24 16:17 IMPRESSION: Multiple pulmonary nodules measuring up to 9 mm in the right lower lobe. Recommend follow-up low-dose noncontrast CT of the chest in 3-6 months. Mediastinal lymphadenopathy. 8 mm pancreatic body cyst, recommend follow-up CT abdomen and pelvis with contrast in 2 years. 2.0 cm left adrenal nodule, probably benign, consider follow-up adrenal CT in 12months, unless there is a history of cancer, in which [facility]. No acute fracture fracture or traumatic malalignment detected in the thoracic orlumbar spine. Assessment and Plan Assessment and plan (1) Sepsis: Code(s): A41.9 - Sepsis, unspecified organism Status: Acute (2) Urinary tract infection: Code(s): N39.0 - Urinary tract infection, site not specified Status: Acute (3) Mild dehydration: Code(s): E86.0 - Dehydration Status: Acute (4) Weakness of both lower extremities: Code(s): R29.898 - Other symptoms and signs involving the musculoskeletal system Status: Acute (5) Chronic kidney disease, stage 4 (severe): Code(s): N18.4 - Chronic kidney disease, stage 4 (severe) Status: Acute (6) Nonischemic cardiomyopathy: Code(s): I42.8 - Other cardiomyopathies Status: Acute (7) Hypertension: Code(s): I10 - Essential (primary) hypertension Status: Acute (8) Insulin dependent type 2 diabetes mellitus: Code(s): E11.9 - Type 2 diabetes mellitus without complications; Z79.4 - terminal clerk (current) use of insulin Status: Acute (9) Atrial fibrillation: Code(s): I48.91 - Unspecified atrial fibrillation Status: Acute (10) Chronic anticoagulation: Code(s): Z79.01 - penitentiary (current) use of anticoagulants Status: Acute (11) Pulmonary nodule: Code(s): R91.1 - Solitary pulmonary nodule Status: Acute (12) Adrenal nodule: Code(s): E27.9 - Disorder of adrenal gland, unspecified Status: Acute (13) Pancreatic cyst: Code(s): K86.2 - Cyst of pancreas Status: Acute Plan The patient presented to the emergency department for evaluation of progressive weakness as detailed in HPI. Labs, imaging, EKG, and all reports were personallyreviewed. This does not seem to be in acute problems and more an ongoing issue to the point where the patient is now not able to even stand on his own althoughthat is likely precipitated by his urinary tract infection. He technically meetssepsis criteria with soft blood pressures, leukocytosis, and acute on chronic kidney failure in setting of infection. Lactic acid level is within normal limits and blood pressures have improved with IV fluids. Blood cultures are pending. Continue ceftriaxone pending urine culture. He looks dry on exam and will be cautiously hydrated overnight with close monitoring of volume status, renal function, and electrolytes. Hold diuretics and antihypertensives for now; this will need to be readdressed once he is adequately hydrated so he can be started back on guideline directed medical therapy for his nonischemic cardiomyopathy. His atrial fibrillation is rate controlled on carvedilol which will be continued with parameters. Hold this evening dose of warfarin as his INRis therapeutic and monitor daily. He has some degenerative disc disease, facet arthropathy, and moderate neural foraminal and central canal narrowing in some places and neurosurgery was consulted by the ED provider. PT/OT has also been consulted. He will need to go to a rehab facility before returning home as he will just not be safe to be discharged alone. Continue basal insulin and check hemoglobin A1c. Initiate sliding scale insulin, Accu- Cheks, and hypoglycemic protocol. The rest of his home medications will be reviewed and resumed as appropriate. Incidental findings on CT scan including right lower lobe pulmonarynodules, 8 mm pancreatic body cyst, and 2 cm left adrenal nodule should be followed up as an outpatient per the radiologist recommendations. Findings and treatment plan were discussed with the patient and his son who was at bedside. Questions were solicited and answered to satisfaction. The patient's medical management will be taken over by the hospitalist team in a.m. Quality VTE Prophylaxis VTE prophylaxis: pharmacologic ordered (on warfarin) The patient has been admitted under observation status. Hospitalist [facility] Advance Care Plan I have confirmed that the patient's Advanced Care Plan is present, code status is documented, or surrogate decision maker is listed in patient medical record.:Yes Medication Reconciliation I have utilized all available resources to obtain, update and review the patients current medications (includes all prescriptions, OTC, herbals, cannabis, and nutritional supplements).: Yes This report may have been done utilizing a voice recognition system. Attempts have been made to correct errors. However, there may be uncorrected grammatical,spelling, and recognition errors present. Report Initialized date/time: Rima Goss PA-C 02/11/242334 Electronically signed by: Rima Goss PA-C 02/11/242334 Progress Note Author Devora [facility] Note Date/Time February 13, 2024 8:12[facility] [address] [place] [address] Emergency Room Visit Note Signed Patient: Erwin Isaac MR#: [id number] : 1950 Acct:[id number] Age: 73 ADM Date: 02/11/24 Loc: [id number] 324-[address]: Joann Sifuentes M.D. cc: Joann Sifuentes MD; Ann Marie Perez MD; Devora Wallace PA-C; Erwin Gardner MD~ HPI - Extremity Problem General Chief complaint: Extremity Problem,Nontraumatic <Devora Wallace PA-C - Last Filed: 02/11/24 22:11> Stated complaint: BLE WEAKNESS AND EDEMA <Devora Wallace PA-C - Last Filed: 02/11/24 22:11> Time Seen by Provider: 02/11/24 14:07 <Devora Wallace PA-C - Last Filed: 02/11/24 22:11> Source: patient <Devora Wallace PA-C - Last Filed: 02/11/24 22:11> Mode of arrival: EMS <Devora Wallace PA-C - Last Filed: 02/11/24 22:11> Limitations: no limitations <Devora Wallace PA-C - Last Filed: 02/11/24 22:11> History of Present Illness HPI Narrative: This is a 73-year-old male that presents to the emergency department for lower extremity weakness. Progressively worsening over the last couple of weeks.Reports he is to the point where he can barely feel either of his legs. He cannot walk. He has been urinating on himself. Reports some bowel incontinence. Reports ongoing problems with lower extremity edema. Denies fever, chest pain, shortness of breath. <Devora Wallace PA-C - Last Filed: 02/11/24 22:11> Related Data Home medications: Home Medications Medication Instructions Recorded Confirmed carvedilol 25 mg tablet 25 mg PO BID 01/30/19 02/11/24 losartan 50 mg tablet 50 mg PO DAILY 01/30/19 02/11/24 potassium chloride 20 mEq 20 meq PO DAILY 01/30/19 02/11/24 tablet,extended release spironolactone 50 mg tablet 50 mg PO DAILY 01/30/19 02/11/24 warfarin 5 mg tablet 5 mg PO DAILY 11/22/19 02/11/24 furosemide 80 mg tablet 80 mg PO BID 05/23/23 02/11/24 semaglutide 1 mg/dose (2 mg/1.5 1 mg subcut WEEKLY 11/01/23 02/11/24 mL) subcutaneous pen injector insulin regular hum U-500 conc 500 40 unit subcut DAILY 01/15/24 02/11/24 unit/mL(3 mL) subcut pen (Humulin R U-500 (Conc) Insulin Kwikpen) fenofibrate 54 mg tablet 54 mg PO DAILY 02/11/24 02/11/24 <Devora Wallace PA-C - Last Filed: 02/11/24 22:11> Allergies/Adverse reactions: Allergies Allergy/AdvReac Type Severity Reaction Status Date / Time No Known Allergies Allergy Verified 02/11/24 13:19 <Devora Wallace PA-C - Last Filed: 02/11/24 22:11> Review of Systems Review of Systems: CONSTITUTIONAL: Denies fever CARDIOVASCULAR: Reports edema. Denies chest pain RESPIRATORY: Denies dyspnea. GASTROINTESTINAL: Reports diarrhea and abdominal pain GENITOURINARY: Denies dysuria or hematuria. MUSCULOSKELETAL: Denies back pain NEUROLOGIC: Reports numbness, and weakness. <Devora Wallace PA-C - Last Filed: 02/11/24 22:11> All systems reviewed & are unremarkable except as noted in HPI and below <Devora Wallace PA-C - Last Filed: 02/11/24 22:11> [facility] Past Medical History Medical History: Medical History (Updated 02/12/24 @ 14:12 by Gela Pedraza APRN) Asthma Atrial fibrillation Basal cell carcinoma (BCC) of brow Chronic anticoagulation Chronic kidney disease, stage 4 (severe) Hypertension Insulin dependent type 2 diabetes mellitus Mixed hyperlipidemia Multiple myeloma poorly documented Nonischemic cardiomyopathy Urticaria Venous insufficiency Vitamin D deficiency <Devora Wallace PA-C - Last Filed: 02/11/24 22:11> Surgical History Surgical History: Surgical History (Updated 02/11/24 @ 23:24 by Rima Goss PA-C) History of arthroscopy of both knees History of basal cell carcinoma excision History of bilateral cataract extraction History of cardiac catheterization no obstructive disease per patient report History of cardioversion History of colonoscopy with polypectomy <Devora Wallace PA-C - Last Filed: 02/11/24 22:11> Family History Family History: Family History Father Family history of emphysema, Onset Age: 69 <Devora Wallace PA-C - Last Filed: 02/11/24 22:11> Social History Social History: Social History (Updated 02/11/24 @ 23:19 by Rima Goss PA-C) Social History: Surrogate medical decision maker: Jose Isaac (son) or Josy Weston (sibling). Code status: Full code. Smoking status: Never smoker Alcohol intake: current Alcohol use details: social alcohol use in moderation Substance use: never Substance use type: does not use Do You Feel Safe in your Home?: No Lack of Transportation: No Lack of Food: Never True Current Housing: I Have Housing Concerned About Future Housing: No Difficulty Paying Gas/Electric Bills: No Difficulty Paying for Meds: No Currently Unemployed: No Education: High School Diploma/GED Difficulty w/ Childcare or Family Care: No Living arrangements: alone Additional living arrangements comments: the patient lives in his own home in [place] Occupation/Education: retired Spiritual care concerns: No <Devora Wallace PA-C - Last Filed: 02/11/24 22:11> Exam Narrative: GENERAL: Elderly, well-nourished, and in no acute distress. HEAD: Normocephalic, atraumatic. EYES: PERRLA and EOMI. ENT: Nares clear, no rhinorrhea or epistaxis. Mucous membranes moist. Oropharynxwithout tonsillar hypertrophy exudate or other lesions. Bilateral TMs pearly eldridge non-bulging NECK: Supple. No adenopathy or masses. CHEST: Clear to auscultation. No respiratory distress. No wheezes rales or rhonchi HEART: Regular rate and rhythm. No murmur heard. Normal peripheral pulses. ABDOMEN: Soft, nontender, nondistended, normal active bowel sounds. EXTREMITIES: Normal range of motion in the feet and ankles. Unable to bend at the knees. 1+ pitting edema to the bilateral lower extremities. DP pulses obtained via doppler. Sensation markedly decreased to the bilateral lower legs from the thighs to the toes SKIN: Warm, dry, no rash. No wounds noted NEURO: No focal deficits. Alert and oriented x3. PSYCH: Normal mood and affect <Devora Wallace PA-C - Last Filed: 02/11/24 22:11> Course Course Emergency Course: Patient and family updated on workup and recommendation for admission <Devora Wallace PA-C - Last Filed: 02/11/24 22:11> GENERAL LEDGER ACCOUNTANT/PA Physician Supervision I was in the emergency department and available for consultation but did not personally evaluate this patient and was not involved in their care. <Ann Marie Perez MD - Last Filed: 02/13/24 08:12> Consultations Consultation #1: Spoke with hospitalist about patient and workup who accepts admission. Will place neurosurgery consult for lower extremity weakness <Devora Wallace PA-C - Last Filed: 02/11/24 22:11> Date: 02/11/24 <Devora Wallace PA-C - Last Filed: 02/11/24 22:11> Vital Signs Vital signs: Vital Signs Temperature 98.5 F 02/11/24 13:05 Pulse Rate 83 02/11/24 13:05 Respiratory Rate 20 02/11/24 13:05 Blood Pressure 96/52 L 02/11/24 13:05 Pulse Oximetry 97 02/11/24 13:05 Oxygen Delivery Room Air 02/11/24 13:05 Temperature 96.8 F L 02/13/24 05:05 Pulse Rate 90 02/13/24 05:05 Respiratory Rate 16 02/13/24 05:05 Blood Pressure 112/69 02/13/24 05:05 Pulse Oximetry 98 02/13/24 05:05 Oxygen Delivery Room Air 02/12/24 20:00 <Devora Wallace PA-C - Last Filed: 02/11/24 22:11> Vital Signs Temperature 98.5 F 02/11/24 13:05 Pulse Rate 83 02/11/24 13:05 Respiratory Rate 20 02/11/24 13:05 Blood Pressure 96/52 L 02/11/24 13:05 Pulse Oximetry 97 02/11/24 13:05 Oxygen Delivery Room Air 02/11/24 13:05 Temperature 96.8 F L 02/13/24 05:05 Pulse Rate 90 02/13/24 05:05 Respiratory Rate 16 02/13/24 05:05 Blood Pressure 112/69 02/13/24 05:05 Pulse Oximetry 98 02/13/24 05:05 Oxygen Delivery Room Air 02/12/24 20:00 <Ann Marie Perez MD - Last Filed: 02/13/24 08:12> MDM - Extremity (Nontraumatic) MDM Narrative Medical decision making narrative: Patient presents to the emergency department for lower extremity edema andweakness. Worsening over the last several weeks. Patient is afebrile and nontoxic appearing. Blood pressure soft, but stable. He did respond to IV fluids. Patient with marked weakness in the bilateral lower extremities. He does have DP pulses obtained via doppler. CBC with leukocytosis to 20.1. Metabolic panel with evidence of patient's chronic kidney disease. Lactic acid is not elevated. Urine with evidence of infection. This was sent for culture. Blood culture sent and patient started on IV antibiotics. CT chest/abdomen/ pelvis /thoracic / lumbar spine obtained for further evaluation of infection/lower extremity weakness. Shows pulmonary nodule, pancreatic cyst, adrenal nodule. No acute findings in the thoracic or lumbar spine. Patient and family updated on workup and recommendation for admission. Spoke with hospitalist about patient and workup who accepts admission. Will place neurosurgery consult for lower extremity weakness <Devora Wallace PA-C - Last Filed: 02/11/24 22:11> Differential Diagnosis Differential diagnosis: Likely cellulitis, lower extremity edema, deep vein thrombosis of lower extremity and other (CHF, UTI, discitis, intra-abdominal infection, peripheral neuropathy, lumbar radiculopathy) <Devora Wallace PA-C - Last Filed: 02/11/24 22:11> Lab Data Attestation: I reviewed the patient's lab results. <Devora Wallace PA-C - Last Filed:02/11/24 22:11> Result diagrams: 02/13/24 06:25 02/13/24 06:25 <СЕРГЕЙ Shepherd Last Filed: 02/11/24 22:11> Labs: Lab Results 02/11/24 02/11/24 Range/Units 13:22 19:16 WBC 20.1 H (4.5-10.0) K/mm3 RBC 3.16 L (4.6-6.20) M/mm3 Hgb 10.4 L (14.0-18.0) g/dL Hct 30.5 L (42.0-52.0) % MCV 96.5 (80-100) fl MCH 32.9 (26-34) pg MCHC 34.1 (32-36) g/dl RDW 13.3 (11.5-14.5) % Plt Count 166 (150-375) k/mm3 MPV 11.1 H (7.4-10.4) fl Immature Gran % (Auto) 4.6 H (0-0.5) % Neut % (Auto) 82.8 H (45.5-73.1) % Lymph % (Auto) 4.9 L (18.3-44.2) % [place] % (Auto) 7.4 (2.6-8.5) % Eos % (Auto) 0.0 (0-4.4) % Baso % (Auto) 0.3 (0.2-1.2) % Lymph # (Auto) 0.99 (0.9-3.2) K/mm3 [place] # (Auto) 1.5 H (0.1-0.6) K/mm3 Eos # (Auto) 0.0 (0-0.3) K/mm3 Baso # (Auto) 0.1 (0.0-0.1) K/mm3 Abs Immat Gran (auto) 0.92 H (0.00-0.031) K/mm3 Absolute Neuts (auto) 16.6 H (1.3-6.7) K/mm3 Absolute Nucleated RBC 0.000 (0.0-0.012) K/mm3 Nucleated RBC % 0.0 (0.0-0.2) % Platelet Estimate Adequate (Adequate) Haskell Cells 1+ Schistocytes None seen PT 37.9 H (11.1-14.7) Seconds INR 3.8 APTT 59.2 H (22.3-36.8) Seconds Sodium 130 L (137-145) mmol/L Potassium 4.0 (3.4-5.0) mmol/L Chloride 93 L (98-107) mmol/L Carbon Dioxide 25 (22-30) mmol/L Anion Gap 12 (4-12) mmol/L BUN 41 H D (9-20) mg/dL Creatinine 2.40 H (0.7-1.3) mg/dL Estim Creat Clear Calc 38 ml/min Estimated GFR 27 L (59 - ) Glucose 192 H (65-110) mg/dL Lactic Acid 1.3 (0.7-2.0) mmol/L Calcium 8.9 (8.4-10.2) mg/dL Total Bilirubin 1.8 H (0.2-1.3) mg/dL AST 29 (17-59) U/L ALT 23 (6-50) U/L Alkaline Phosphatase 57 (38-126) U/L Troponin I < 0.012 (0.000-0.034) ng/mL C-Reactive Protein 28.3 H (<1.0) mg/dL NT-Pro-B Natriuret Pep 1270 H (19.9-100) pg/mL Total Protein 8.0 (6.3-8.2) g/dL Albumin 3.8 (3.5-5.1) g/dL Urine Color Yellow (Yellow) Urine Appearance Turbid H (Clear) Urine pH 5.0 (5.0-9.0) Ur Specific [place] 1.012 (1.001-1.035) Urine Protein Trace (Negative) mg/dL Urine Glucose (UA) Negative (Negative) mg/dL Urine Ketones Trace H (Negative) mg/dL Ur Blood (Man) 1+ H (Negative) Urine Nitrate Negative (Negative) Urine Bilirubin Negative (Negative) Urine Urobilinogen 0.2 (<2.0) mg/dL Leukocyte Esterase Rfl 3+ H (Negative) ALBERTO/UL Urine RBC 0-2 (0-2) /hpf Urine WBC >100 H (0-3) /hpf Ur Squamous Epith Cells None seen (Few) /hpf Urine Bacteria 4+ H /hpf Urine Casts 3-5 <Devora Wallace PA-C - Last Filed: 02/11/24 22:11> Lab Results 02/11/24 02/11/24 Range/Units 13:22 19:16 WBC 20.1 H (4.5-10.0) K/mm3 RBC 3.16 L (4.6-6.20) M/mm3 Hgb 10.4 L (14.0-18.0) g/dL Hct 30.5 L (42.0-52.0) % MCV 96.5 (80-100) fl MCH 32.9 (26-34) pg MCHC 34.1 (32-36) g/dl RDW 13.3 (11.5-14.5) % Plt Count 166 (150-375) k/mm3 MPV 11.1 H (7.4-10.4) fl Immature Gran % (Auto) 4.6 H (0-0.5) % Neut % (Auto) 82.8 H (45.5-73.1) % Lymph % (Auto) 4.9 L (18.3-44.2) % [place] % (Auto) 7.4 (2.6-8.5) % Eos % (Auto) 0.0 (0-4.4) % Baso % (Auto) 0.3 (0.2-1.2) % Lymph # (Auto) 0.99 (0.9-3.2) K/mm3 [place] # (Auto) 1.5 H (0.1-0.6) K/mm3 Eos # (Auto) 0.0 (0-0.3) K/mm3 Baso # (Auto) 0.1 (0.0-0.1) K/mm3 Abs Immat Gran (auto) 0.92 H (0.00-0.031) K/mm3 Absolute Neuts (auto) 16.6 H (1.3-6.7) K/mm3 Absolute Nucleated RBC 0.000 (0.0-0.012) K/mm3 Nucleated RBC % 0.0 (0.0-0.2) % Platelet Estimate Adequate (Adequate) Haskell Cells 1+ Schistocytes None seen PT 37.9 H (11.1-14.7) Seconds INR 3.8 APTT 59.2 H (22.3-36.8) Seconds Sodium 130 L (137-145) mmol/L Potassium 4.0 (3.4-5.0) mmol/L Chloride 93 L (98-107) mmol/L Carbon Dioxide 25 (22-30) mmol/L Anion Gap 12 (4-12) mmol/L BUN 41 H D (9-20) mg/dL Creatinine 2.40 H (0.7-1.3) mg/dL Estim Creat Clear Calc 38 ml/min Estimated GFR 27 L (59 - ) Glucose 192 H (65-110) mg/dL Lactic Acid 1.3 (0.7-2.0) mmol/L Calcium 8.9 (8.4-10.2) mg/dL Total Bilirubin 1.8 H (0.2-1.3) mg/dL AST 29 (17-59) U/L ALT 23 (6-50) U/L Alkaline Phosphatase 57 (38-126) U/L Troponin I < 0.012 (0.000-0.034) ng/mL C-Reactive Protein 28.3 H (<1.0) mg/dL NT-Pro-B Natriuret Pep 1270 H (19.9-100) pg/mL Total Protein 8.0 (6.3-8.2) g/dL Albumin 3.8 (3.5-5.1) g/dL Urine Color Yellow (Yellow) Urine Appearance Turbid H (Clear) Urine pH 5.0 (5.0-9.0) Ur Specific [place] 1.012 (1.001-1.035) Urine Protein Trace (Negative) mg/dL Urine Glucose (UA) Negative (Negative) mg/dL Urine Ketones Trace H (Negative) mg/dL Ur Blood (Man) 1+ H (Negative) Urine Nitrate Negative (Negative) Urine Bilirubin Negative (Negative) Urine Urobilinogen 0.2 (<2.0) mg/dL Leukocyte Esterase Rfl 3+ H (Negative) ALBERTO/UL Urine RBC 0-2 (0-2) /hpf Urine WBC >100 H (0-3) /hpf Ur Squamous Epith Cells None seen (Few) /hpf Urine Bacteria 4+ H /hpf Urine Casts 3-5 <Ann Marie Perez MD - Last Filed: 02/13/24 08:12> Imaging Data Radiologist's impression: ITS Impressions Chest X-Ray 02/11/24 13:55 Impression: Clear lungs. ITS Impressions Chest X-Ray 02/11/24 13:55 Impression: Clear lungs. Chest/Abdomen/Pelvis/Spine CT 02/11/24 16:17 IMPRESSION: Multiple pulmonary nodules measuring up to 9 mm in the right lower lobe. Recommend follow-up low-dose noncontrast CT of the chest in 3-6 months. Mediastinal lymphadenopathy. 8 mm pancreatic body cyst, recommend follow-up CT abdomen and pelvis with contrast in 2 years. 2.0 cm left adrenal nodule, probably benign, consider follow-up adrenal CT in 12months, unless there is a history of cancer, [facility] which [facility] No acute fracture fracture or traumatic malalignment detected in the thoracic orlumbar spine. <Devora Wallace PA-C - Last Filed: 02/11/24 22:11> ECG Data EKG #1: ECG completion date: 02/11/24 <Devora Wallace PA-C - Last Filed: 02/11/24 22:11> EKG Interpretation: normal rate, atrial fibrillation, RBBB, normal QT and no acute changes ( Compared to EKG ) <Devora Wallace PA-C - Last Filed: 02/11/24 22:11> Critical Care Time Critical Care Time Critical Care Time: No <Devora Wallace PA-C - Last Filed: 02/11/24 22:11> Discharge Plan Discharge Clinical Impression: Acute UTI, Weakness of both lower extremities, Pulmonary nodule, Adrenal nodule, Pancreatic cyst <Devora Wallace PA-C - Last Filed: 02/11/24 22:11> Patient Disposition: Still a Patient <Devora Wallace PA-C - Last Filed: 02/11/24 22:11> Condition: Stable <Devora Wallace PA-C - Last Filed: 02/11/24 22:11> This report may have been done utilizing a voice recognition system. Attempts have been made to correct errors. However, there may be uncorrected grammatical,spelling, and recognition errors present. Report Initialized date/time: Devora Wallace PA-C 02/11/24 1445 Electronically signed by: Devora Wallace PA-C 02/11/24 221 Ann Marie Perez MD 02/13/24 0812 Progress Note Author [facility] Note Date/Time February 12, 2024 2:16pm [facility] [address] [address] Hospitalist Progress Note Signed Patient: Erwin Isaac MR#: [id number] : 1950 Acct:[id number] Age: 73 ADM Date: 02/11/24 Loc: [id number] 324-[address]: Joann Sifuentes M.D. cc: ~ Progress Note: A&P Assessment and Plan (1) Sepsis: Code(s): A41.9 - Sepsis, unspecified organism Status: Acute (2) Urinary tract infection: Code(s): N39.0 - Urinary tract infection, site not specified Status: Acute Assessment and Plan: This does not seem to be in acute problems and more an ongoing issue to the point where the patient is now not able to even stand on his own although that is likely precipitated by his urinary tract infection. He technically meets sepsis criteria with soft blood pressures, leukocytosis, and acute on chronic kidney failure in setting of infection. Lactic acid level is within normal limits and blood pressures have improved with IV fluids. Blood cultures are pending. Continue ceftriaxone pending urine culture. (3) Mild dehydration: Code(s): E86.0 - Dehydration Status: Acute (4) Weakness of both lower extremities: Code(s): R29.898 - Other symptoms and signs involving the musculoskeletal system Status: Acute Assessment and Plan: -neurology consulted pt/ot (5) Chronic kidney disease, stage 4 (severe): Code(s): N18.4 - Chronic kidney disease, stage 4 (severe) Status: Acute (6) Nonischemic cardiomyopathy: Code(s): I42.8 - Other cardiomyopathies Status: Acute Assessment and Plan: He looks dry on exam and will be cautiously hydrated overnight with close monitoring of volume status, renal function, and electrolytes. Hold diuretics and antihypertensives for now; this will need to be readdressed once he is adequately hydrated so he can be started back on guideline directed medical therapy for his nonischemic cardiomyopathy. (7) Hypertension: Code(s): I10 - Essential (primary) hypertension Status: Acute (8) Insulin dependent type 2 diabetes mellitus: Code(s): E11.9 - Type 2 diabetes mellitus without complications; Z79.4 - terminal clerk (current) use of insulin Status: Acute Assessment and Plan: Continue basal insulin and check hemoglobin A1c. 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 Hold this evening dose of warfarin as his INR is therapeutic and monitor daily. - bp is soft- will decrease coreg dose a little bit and monitor for HR/BP (10) Chronic anticoagulation: Code(s): Z79.01 - penitentiary (current) use of anticoagulants Status: Acute Assessment and Plan: see #9 (11) Pulmonary nodule: Code(s): R91.1 - Solitary pulmonary nodule Status: Acute (12) Adrenal nodule: Code(s): E27.9 - Disorder of adrenal gland, unspecified Status: Acute (13) Pancreatic cyst: Code(s): K86.2 - Cyst of pancreas Status: Acute Assessment and Plan: will need f/u outpt (14) Diarrhea: Code(s): R19.7 - Diarrhea, unspecified Status: Acute Assessment and Plan: - no recent hospitalization - no recent antibiotics - will order c diff and if negative-will order antidiarrheal meds - discussed potential correlation between diarrhea and semigluitde - will hold med and see if diarrhea improves Plan The patient presented to the emergency department for evaluation of progressive weakness as detailed in HPI. Labs, imaging, EKG, and all reports were personallyreviewed. He has some degenerative disc disease, facet arthropathy, and moderate neural foraminal and central canal narrowing in some places and neurosurgery was consulted by the ED provider. PT/OT has also been consulted. He will need to go to a rehab facility before returning home as he will just not be safe to be discharged alone. . The rest of his home medications will be reviewed and resumed as appropriate. Incidental findings on CT scan including right lower lobe pulmonary nodules, 8 mm pancreatic body cyst, and 2 cm left adrenal nodule should be followed up as an outpatient per the radiologist recommendations. Findings and treatment plan were discussed with the patient and his son who was at bedside. Time Spent With Patient Time with patient: Greater than 35 minutes Subjective Date/time seen: 02/12/24 14:05 Review of Systems Review of Systems: 12 systems were reviewed and are negativ e except for as per HPI. Exam Narrative: General: Chronically ill-appearing male in the semi-Cat position in bed. Weight: 130.1 kg. BMI: 38.1. HEENT: Normocephalic, atraumatic. PERRL, EOMI. Sclera anicteric. Tacky mucous membranes. Neck: Supple. No JVD or lymphadenopathy. Respiratory: Respirations are nonlabored and lungs are clear to auscultation. Cardiovascular: Irregularly irregular rate and rhythm. Gastrointestinal: Abdomen is soft, protuberant, nontender, and nondistended with positive bowel sounds. Skin: Warm and dry. Generalized pallor. Extremities: No cyanosis or clubbing. Legs are large with 2+ pitting edema. Chronic skin changes of bilateral lower legs consistent with venous stasis dermatitis. There couple of shallow ulcerations without evidence of infection. Diminished pulses in the feet. Neurological: Alert and oriented. Cranial nerves 2-12 are grossly intact. Speech is clear. No facial asymmetry. No pronator drift. He can barely lift hislegs off the bed 1 in before letting them fall. Right foot pushes seems weaker when compared to left. Hand nuisance wildlife trapper are equal bilaterally. No focal strength deficits in the upper extremities. Sensation diminished in the lower extremities. No saddle anesthesia. Psychiatric: Pleasant and cooperative with appropriate mood and flat affect. Objective Data Vital Signs Vital Signs: Vital Signs - 24 hr 02/11/24 14:31 02/11/24 16:06 02/11/24 16:58 Temperature Pulse Rate 77 95 80 Respiratory Rate 21 H 22 H 23 H Blood Pressure 98/55 L 100/44 L 103/59 L Pulse Oximetry 100 99 100 Oxygen Delivery 02/11/24 16:46 02/11/24 17:01 02/11/24 17:31 Temperature Pulse Rate 81 85 88 Respiratory Rate 23 H 17 21 H Blood Pressure 103/49 L 106/52 L 104/58 L Pulse Oximetry 100 98 100 Oxygen Delivery 02/11/24 17:46 02/11/24 18:01 02/11/24 18:16 Temperature Pulse Rate 84 79 84 Respiratory Rate 18 15 21 H Blood Pressure 98/46 L 96/47 L 102/45 L Pulse Oximetry 94 99 100 Oxygen Delivery 02/11/24 18:31 02/11/24 21:42 02/11/24 21:43 Temperature Pulse Rate 81 91 Respiratory Rate 24 H 22 H Blood Pressure 105/52 L 117/43 L 103/62 Pulse Oximetry 99 98 Oxygen Delivery 02/11/24 22:30 02/11/24 22:30 02/12/24 06:00 Temperature 98.2 F 98.6 F Pulse Rate 84 93 Respiratory Rate 16 18 Blood Pressure 110/64 106/56 L Pulse Oximetry 100 98 Oxygen Delivery Room Air 02/12/24 09:24 02/12/24 08:00 02/12/24 13:56 Temperature 98.3 F Pulse Rate 89 80 Respiratory Rate 18 Blood Pressure 98/50 L Pulse Oximetry 98 Oxygen Delivery Room Air 02/11/24 21:49 Temperature Pulse Rate 91 Respiratory Rate 22 H Blood Pressure 103/62 Pulse Oximetry 98 Oxygen Delivery Intake/Output Intake/Output: Intake & Output 02/09/24 02/10/24 02/11/24 02/12/24 23:59 23:59 23:59 23:59 Intake Total 1550 870 Output Total 550 Balance 1550 320 Meds/Results Medications: Active Medications Generic Name Dose Route Start Last Admin Trade Name Freq PRN Reason Stop Dose Admin Acetaminophen 650 mg 02/11/24 23:31 Acetaminophen 325 Mg Tablet PO Q6H PRN Mild Pain (1-3) or Fever Atorvastatin Calcium 80 mg 02/12/24 09:00 02/12/24 08:31 Atorvastatin 40 Mg Tablet PO 80 mg DAILY CARMELA Administration Carvedilol 25 mg 02/12/24 09:00 02/12/24 09:24 Carvedilol 25 Mg Tablet PO 25 mg Q12HR CARMELA Administration Dextrose 12.5 gm 02/11/24 23:31 Dextrose 50% 25 Gm/50 Ml Syringe IV PUSH PRN PRN Hypoglycemia Protocol Ergocalciferol 50,000 units 02/12/24 09:00 02/12/24 09:24 Ergocalciferol 50,000 Units Capsule PO 50,000 units Mo@0900 CARMELA Administration Glucagon 1 mg 02/11/24 23:31 Glucagon For Inj 1 Mg Vial IM PRN PRN Hypoglycemia Protocol Glucose 15 gm 02/11/24 23:31 Glucose Oral Gel 15 Gm Of Glucse In 37.5 Gm Tube PO PRN PRN Hypoglycemia Protocol Ceftriaxone Sodium 1 gm in 50 mls @ 100 mls/hr 02/12/24 16:00 Rocephin 1 Gm/Ns 50 Ml IVPB Q24H CARMELA Dextrose 1,000 mls @ 100 mls/hr 02/11/24 23:31 Dextrose 5% 1,000 Ml IVPB PRN PRN Hypoglycemia Protocol Insulin Aspart 1 - 3 units 02/11/24 21:00 02/12/24 00:52 Insulin Aspart (*Bkc) 100 Units/Ml SUB-Q Not Given HS CARMELA Protocol Insulin Aspart 3 - 6 units 02/12/24 08:00 02/12/24 11:21 Insulin Aspart (*Bkc) 100 Units/Ml SUB-Q 3 units TIDWM [facility] Administration Protocol Multi-Ingred Cream/Lotion/Oil/Oint 1 applic 02/12/24 09:00 02/12/24 12:43 Eucerin Cream 120 Gm Jar TOPICAL 1 applic DAILY CARMELA Administration Psyllium Hydrophilic Mucilloid 1 packet 02/12/24 09:00 02/12/24 08:32 Psyllium Powder Packet PO 1 packet QAM [facility] Administration Warfarin Sodium 5 mg 02/13/24 17:00 Warfarin (*Pbkc) 5 Mg Tablet PO DAILY@1700 [facility] Radiology Results: ITS Impressions Chest X-Ray 02/11/24 13:55 Impression: Clear lungs. Chest/Abdomen/Pelvis/Spine CT 02/11/24 16:17 IMPRESSION: Multiple pulmonary nodules measuring up to 9 mm in the right lower lobe. Recommend follow-up low-dose noncontrast CT of the chest in 3-6 months. Mediastinal lymphadenopathy. 8 mm pancreatic body cyst, recommend follow-up CT abdomen and pelvis with contrast in 2 years. 2.0 cm left adrenal nodule, probably benign, consider follow-up adrenal CT in 12months, unless there is a history of cancer, [facility] No acute fracture fracture or traumatic malalignment detected in the thoracic orlumbar spine. Labs Labs: Laboratory Results - last 24 hr 02/11/24 02/11/24 02/11/24 19:16 22:42 23:48 WBC RBC Hgb Hct MCV MCH MCHC RDW Plt Count MPV PT INR Sodium Potassium Chloride Carbon Dioxide Anion Gap BUN Creatinine Estim Creat Clear Calc Estimated GFR Glucose POC Capillary Glucose 132 H Hemoglobin A1c 6.5 H Lactic Acid 1.3 Calcium Magnesium Total Bilirubin AST ALT Alkaline Phosphatase C-Reactive Protein 28.3 H Total Protein Albumin TSH (Reflex) 02/12/24 02/12/24 02/12/24 05:53 07:32 11:18 WBC 14.7 H RBC 3.02 L Hgb 9.7 L Hct 29.2 L MCV 96.7 MCH 32.1 MCHC 33.2 RDW 13.4 Plt Count 171 MPV 11.2 H PT 46.5 H D INR 4.9 Sodium 133 L Potassium 3.7 Chloride 98 Carbon Dioxide 23 Anion Gap 12 BUN 43 H Creatinine 2.30 H Estim Creat Clear Calc 38 Estimated GFR 28 L Glucose 162 H POC Capillary Glucose 163 H 236 H Hemoglobin A1c Lactic Acid Calcium 8.5 Magnesium 2.0 Total Bilirubin 0.8 AST 45 ALT 27 Alkaline Phosphatase 76 C-Reactive Protein Total Protein 7.0 Albumin 3.4 L TSH (Reflex) 1.060 Quality VTE Prophylaxis VTE prophylaxis: pharmacologic ordered (on warfarin) This report may have been done utilizing a voice recognition system. Attempts have been made to correct errors. However, there may be uncorrected grammatical,spelling, and recognition errors present. Report Initialized date/time: Gela Pedraza APRN 02/12/24 / 1411 Electronically signed by: Gela Pedraza APRN 02/12/24 141 Progress Note Author [facility] Note Date/Time February 13, 2024 10:54[facility] [address] [place] [address] Hospitalist Progress Note Signed Patient: Erwin Isaac MR#: [id number] : 1950 Acct:[id number] Age: 73 ADM Date: 02/11/24 Loc: [id number]: Joann Sifuentes M.D. cc: ~ Progress Note: A&P Assessment and Plan (1) Sepsis: Code(s): A41.9 - Sepsis, unspecified organism Status: Acute Assessment and Plan: IV antibiotics IV fluids lactic acid-wnl (2) Urinary tract infection: Code(s): N39.0 - Urinary tract infection, site not specified Status: Acute Assessment and Plan: Lactic acid level is within normal limits and blood pressures have improved withIV fluids. Blood cultures are pending. Continue ceftriaxone pending urine culture. (3) Mild dehydration: Code(s): E86.0 - Dehydration Status: Acute Assessment and Plan: iv fluids- switch to PO once po intake is adequate (4) Weakness of both lower extremities: Code(s): R29.898 - Other symptoms and signs involving the musculoskeletal system Status: Acute Assessment and Plan: -worsen in the last few weeks to the points where he could not move much at all -neurology consulted MRI completed today, 02/12 pt/ot ordered (5) Chronic kidney disease, stage 4 (severe): Code(s): N18.4 - Chronic kidney disease, stage 4 (severe) Status: Acute (6) Nonischemic cardiomyopathy: Code(s): I42.8 - Other cardiomyopathies Status: Acute Assessment and Plan: He looks dry on exam and will be cautiously hydrated overnight with close monitoring of volume status, renal function, and electrolytes (7) Hypertension: Code(s): I10 - Essential (primary) hypertension Status: Acute (8) Insulin dependent type 2 diabetes mellitus: Code(s): E11.9 - Type 2 diabetes mellitus without complications; Z79.4 - penitentiary (current) use of insulin Status: Acute Assessment and Plan: Continue basal insulin and check hemoglobin A1c. 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 Hold this evening dose of warfarin as his INR is therapeutic and monitor daily. - bp is soft- will decrease coreg dose a little bit and monitor for HR/BP 02/12- stable-will continue decreased coreg dose for now- can increase back to home dose once BP is stable to avoid afib exacerbation (10) Chronic anticoagulation: Code(s): Z79.01 - terminal clerk (current) use of anticoagulants Status: Acute Assessment and Plan: see #9 (11) Pulmonary nodule: Code(s): R91.1 - Solitary pulmonary nodule Status: Acute (12) Adrenal nodule: Code(s): E27.9 - Disorder of adrenal gland, unspecified Status: Acute (13) Pancreatic cyst: Code(s): K86.2 - Cyst of pancreas Status: Acute Assessment and Plan: will need f/u outpt (14) Diarrhea: Code(s): R19.7 - Diarrhea, unspecified Status: Acute Assessment and Plan: - no recent hospitalization - no recent antibiotics - will order c diff and if negative-will order antidiarrheal meds - discussed potential correlation between diarrhea and semigluitde - will hold med and see if diarrhea improves Plan The patient presented to the emergency department for evaluation of progressive weakness as detailed in HPI. Labs, imaging, EKG, and all reports were personallyreviewed. He has some degenerative disc disease, facet arthropathy, and moderate neural foraminal and central canal narrowing in some places and neurosurgery was consulted by the ED provider. PT/OT has also been consulted. He will need to go to a rehab facility before returning home as he will just not be safe to be discharged alone. . The rest of his home medications will be reviewed and resumed as appropriate. Incidental findings on CT scan including right lower lobe pulmonary nodules, 8 mm pancreatic body cyst, and 2 cm left adrenal nodule should be followed up as an outpatient per the radiologist recommendations. Time Spent With Patient Time with patient: Greater than 35 minutes Subjective Date/time seen: 02/13/24 07:41 Interval history: pt is seen and examined today. Cdiff was ordered yesterday- but he stopped having diarrea yesterday- so it was not obtained. He brought his home ozempic but we are holding it as it could be a reason for his diarrhea. Eating/drinkingok. PT/OT is ordered. Neurology consulted. MRI is done. Anticipate discharge to rehab in the next few days in stable from neurology standpoint. Review of Systems Review of Systems: 12 systems were reviewed and are negativ e except for as per HPI. Exam Narrative: General: in bed, pleasant, clam. Weight: 130.1 kg. BMI: 38.1. HEENT: Normocephalic, atraumatic. PERRL, EOMI. Sclera anicteric. Tacky mucous membranes. Neck: Supple. No JVD or lymphadenopathy. Respiratory: Respirations are nonlabored and lungs are clear to auscultation. Cardiovascular: Irregularly irregular rate and rhythm. Gastrointestinal: Abdomen is soft, protuberant, nontender, and nondistended with positive bowel sounds. Skin: Warm and dry. Generalized pallor. Extremities: No cyanosis or clubbing. Legs are large with 2+ pitting edema. Chronic skin changes of bilateral lower legs consistent with venous stasis dermatitis. There couple of shallow ulcerations without evidence of infection. Diminished pulses in the feet. Neurological: Alert and oriented. Cranial nerves 2-12 are grossly intact. Speech is clear. No facial asymmetry. No pronator drift. He can barely lift hislegs off the bed 1 in before letting them fall. Right foot pushes seems weaker when compared to left. Hand nuisance wildlife trapper are equal bilaterally. No focal strength deficits in the upper extremities. Sensation diminished in the lower extremities. No saddle anesthesia. Psychiatric: Pleasant and cooperative with appropriate mood and flat affect. Const: General: comfortable Objective Data Vital Signs Vital Signs: Vital Signs - 24 hr 02/12/24 09:24 02/12/24 08:00 02/12/24 13:56 Temperature 98.3 F Pulse Rate 89 80 Respiratory Rate 18 Blood Pressure 98/50 L Pulse Oximetry 98 Oxygen Delivery Room Air 02/12/24 20:45 02/12/24 20:00 02/13/24 05:05 Temperature 98.2 F 96.8 F L Pulse Rate 78 90 Respiratory Rate 20 16 Blood Pressure 109/56 L 112/69 Pulse Oximetry 100 98 Oxygen Delivery Room Air Intake/Output Intake/Output: Intake & Output 02/10/24 02/11/24 02/12/24 02/13/24 23:59 23:59 23:59 23:59 Intake Total 1550 1470 150 Output Total 1350 700 Balance 1550 120 -550 Meds/Results Medications: Active Medications Generic Name Dose Route Start Last Admin Trade Name Freq PRN Reason Stop Dose Admin Acetaminophen 650 mg 02/11/24 23:31 Acetaminophen 325 Mg Tablet PO Q6H PRN Mild Pain (1-3) or Fever Atorvastatin Calcium 80 mg 02/12/24 09:00 02/12/24 08:31 Atorvastatin 40 Mg Tablet PO 80 mg DAILY CARMELA Administration Carvedilol 12.5 mg 02/12/24 21:00 02/12/24 21:00 Carvedilol 12.5 Mg Tablet PO Not Given Q12HR CARMELA Dextrose 12.5 gm 02/11/24 23:31 Dextrose 50% 25 Gm/50 Ml Syringe IV PUSH PRN PRN Hypoglycemia Protocol Ergocalciferol 50,000 units 02/12/24 09:00 02/12/24 09:24 Ergocalciferol 50,000 Units Capsule PO 50,000 units Mo@0900 CARMELA Administration Glucagon 1 mg 02/11/24 23:31 Glucagon For Inj 1 Mg Vial IM PRN PRN Hypoglycemia Protocol Glucose 15 gm 02/11/24 23:31 Glucose Oral Gel 15 Gm Of Glucse In 37.5 Gm Tube PO PRN PRN Hypoglycemia Protocol Ceftriaxone Sodium 1 gm in 50 mls @ 100 mls/hr 02/12/24 16:00 02/12/24 15:22 Rocephin 1 Gm/Ns 50 Ml IVPB 100 mls/hr Q24H CARMELA Administration Dextrose 1,000 mls @ 100 mls/hr 02/11/24 23:31 Dextrose 5% 1,000 Ml IVPB PRN PRN Hypoglycemia Protocol Insulin Aspart 1 - 3 units 02/11/24 21:00 02/12/24 21:00 Insulin Aspart (*Bkc) 100 Units/Ml SUB-Q Not Given HS CARMELA Protocol Insulin Aspart 3 - 6 units 02/12/24 08:00 02/12/24 16:46 Insulin Aspart (*Bkc) 100 Units/Ml SUB-Q 3 units TIDWM CARMELA Administration Protocol Multi-Ingred Cream/Lotion/Oil/Oint 1 applic 02/12/24 09:00 02/12/24 12:43 Eucerin Cream 120 Gm Jar TOPICAL 1 applic DAILY CARMELA Administration Psyllium Hydrophilic Mucilloid 1 packet 02/12/24 09:00 02/12/24 08:32 Psyllium Powder Packet PO 1 packet QAM CARMELA Administration Warfarin Sodium 5 mg 02/13/24 17:00 Warfarin (*Pbkc) 5 Mg Tablet PO DAILY@1700 [facility] Radiology Results: ITS Impressions Chest X-Ray 02/11/24 13:55 Impression: Clear lungs. Chest/Abdomen/Pelvis/Spine CT 02/11/24 16:17 IMPRESSION: Multiple pulmonary nodules measuring up to 9 mm in the right lower lobe. Recommend follow-up low-dose noncontrast CT of the chest in 3-6 months. Mediastinal lymphadenopathy. 8 mm pancreatic body cyst, recommend follow-up CT abdomen and pelvis with contrast in 2 years. 2.0 cm left adrenal nodule, probably benign, consider follow-up adrenal CT in 12months, unless there is a history of cancer, in which case consider referral fornonemergent outpatient adrenal CT now. No acute fracture fracture or traumatic malalignment detected in the thoracic orlumbar spine. Labs Labs: Laboratory Results - last 24 hr 02/12/24 02/12/24 02/12/24 05:53 11:18 16:27 PT INR POC Capillary Glucose 236 H 205 H TSH (Reflex) 1.060 02/12/24 02/13/24 02/13/24 20:46 06:28 07:30 PT 44.3 H INR 4.7 POC Capillary Glucose 154 H 132 H TSH (Reflex) Quality VTE Prophylaxis VTE prophylaxis: pharmacologic ordered (on warfarin) This report may have been done utilizing a voice recognition system. Attempts have been made to correct errors. However, there may be uncorrected grammatical,spelling, and recognition errors present. Report Initialized date/time: Gela Pedraza APRN 02/13/2446 Electronically signed by: Gela Pedraza APRN 02/13/24 1054 Progress Note Author Gail Rothman [facility] Note Date/Time February 14, 2024 3:51pm [facility] [address] [place] [address] Hospitalist Progress Note Signed Patient: Erwin Isaac MR#: [id number] : 1950 Acct:[id number] Age: 73 ADM Date: 02/11/24 Loc: [id number]: Gail Rothman PA-C cc: ~ Progress Note: A&P Assessment and Plan (1) Sepsis: Code(s): A41.9 - Sepsis, unspecified organism Status: Acute Assessment and Plan: Meets SIRS criteria: hypotensive, WBC - lactic acid: 1.3 - Fluid resuscitated - suspected source: UTI - blood cultures drawn on 02/10: NGTD - UA: Turbid appearance with trace ketones, 1+ blood, 3+ leukocytes, greater than 100 WBC, 4+ bacteria - UC obtained on 02/10: Citrobacter Koseri - CXR unremarkable - started on Rocephin on 02/11, transitioned to bactrim on 02/13 (2) Urinary tract infection: Code(s): N39.0 - Urinary tract infection, site not specified Status: Acute Assessment and Plan: - UA: Turbid appearance with trace ketones, 1+ blood, 3+ leukocytes, greater than 100 WBC, 4+ bacteria - UC obtained on 02/10: Citrobacter Koseri - No previous micro to be reviewed - started on Rocephin on 02/11, transitioned to (3) Weakness of both lower extremities: Code(s): R29.898 - Other symptoms and signs involving the musculoskeletal system Status: Acute Assessment and Plan: This does not seem to be in acute problems and more an ongoing issue to the point where the patient is now not able to even stand on his own although that is likely precipitated by his urinary tract infection. Worsened in the last few weeks to the points where he could not move much at all. - UA: Turbid appearance with trace ketones, 1+ blood, 3+ leukocytes, greater than 100 WBC, 4+ bacteria - UC obtained on 02/10: Citrobacter Koseri - CXR unremarkable - Chest/abdomen/pelvis CT: Multiple pulmonary nodules measuring up to 9 mm in the right lower lobe. Recommend follow-up low-dose noncontrast CT of the chest in 3-6 months. Mediastinal lymphadenopathy. 8 mm pancreatic body cyst, recommend follow-up CT abdomen and pelvis with contrast in 2 years. 2.0 cm left adrenal nodule, probably benign, consider follow-up adrenal CT in12 months, unless there is a history of cancer, in which case consider referral for nonemergent outpatient adrenal CT now. No acute fracture fracture or traumatic malalignment detected in the thoracicor lumbar spine. - Lumbar MRI: Moderate lumbar spondylosis, worst at L4-L5 and L5-S1. pt/ot ordered (4) Atrial fibrillation: Code(s): I48.91 - Unspecified atrial fibrillation Status: Acute Assessment and Plan: His atrial fibrillation is rate controlled on carvedilol which will be continuedwith parameters. Hold this evening dose of warfarin as his INR is therapeutic and monitor daily. - bp is soft- will decrease coreg dose to 12.5 mg BID and monitor for HR/BP 02/13- stable-will continue current coreg dose for now- can increase back to home dose once BP is stable to avoid afib exacerbation (5) Hypertension: Code(s): I10 - Essential (primary) hypertension Status: Acute Assessment and Plan: Chronic, hypotensive on admission with systolics in the 90s. - Blood pressures continue to be low in the 100 systolic - carvedilol dose decreased to 12.5 mg b.i.d. for AFib control - continue holding losartan 50 mg daily and lasix 80 mg daily - plan to call cardiology tomorrow to discuss resuming medications - monitor (6) Nonischemic cardiomyopathy: Code(s): I42.8 - Other cardiomyopathies Status: Acute Assessment and Plan: Hypotensive on admission with systolics in the 90s. Hold diuretics and antihypertensives for now; this will need to be readdressed once he is adequately hydrated so he can be started back on guideline directed medical therapy for his nonischemic cardiomyopathy. - plan to call cardiology tomorrow to discuss resuming medications (7) Chronic kidney disease, stage 4 (severe): Code(s): N18.4 - Chronic kidney disease, stage 4 (severe) Status: Acute Assessment and Plan: BUN/Cr ae at baseline. - Monitor BUN/Cr on am labs - renally dose medications - avoid nephrotoxic medications (8) Insulin dependent type 2 diabetes mellitus: Code(s): E11.9 - Type 2 diabetes mellitus without complications; Z79.4 - [facility] (current[facility] use of insulin Status: Acute Assessment and Plan: Continue basal insulin and check hemoglobin A1c. 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 Recommend follow-up low-dose noncontrast CT of the chest in 3-6 months. Mediastinal lymphadenopathy. 8 mm pancreatic body cyst, recommend follow-up CT abdomen and pelvis with contrast in 2 years. 2.0 cm left adrenal nodule, probably benign, consider follow-up adrenal CT in12 months, unless there is a history of cancer, in which case consider referral for nonemergent outpatient adrenal CT now. No acute fracture fracture or traumatic malalignment detected in the thoracicor lumbar spine. - Lumbar MRI: Moderate lumbar spondylosis, worst at L4-L5 and L5-S1. (11) Adrenal nodule: Code(s): E27.9 - Disorder of adrenal gland, unspecified Status: Acute Assessment and Plan: - Chest/abdomen/pelvis CT: Multiple pulmonary nodules measuring up to 9 mm in the right lower lobe. Recommend follow-up low-dose noncontrast CT of the chest in 3-6 months. Mediastinal lymphadenopathy. 8 mm pancreatic body cyst, recommend follow-up CT abdomen and pelvis with contrast in 2 years. 2.0 cm left adrenal nodule, probably benign, consider follow-up adrenal CT in12 months, unless there is a history of cancer, in which case consider referral for nonemergent outpatient adrenal CT now. No acute fracture fracture or traumatic malalignment detected in the thoracicor lumbar spine. - Lumbar MRI: Moderate lumbar spondylosis, worst at L4-L5 and L5-S1. (12) Pancreatic cyst: Code(s): K86.2 - Cyst of pancreas Status: Acute Assessment and Plan: - Chest/abdomen/pelvis CT: Multiple pulmonary nodules measuring up to 9 mm in the right lower lobe. Recommend follow-up low-dose noncontrast CT of the chest in 3-6 months. Mediastinal lymphadenopathy. 8 mm pancreatic body cyst, recommend follow-up CT abdomen and pelvis with contrast in 2 years. 2.0 cm left adrenal nodule, probably benign, consider follow-up adrenal CT in12 months, unless there is a history of cancer, in which case consider referral for nonemergent outpatient adrenal CT now. No acute fracture fracture or traumatic malalignment detected in the thoracicor lumbar spine. - Lumbar MRI: Moderate lumbar spondylosis, worst at L4-L5 and L5-S1. Time Spent With Patient Time with patient: 25 - 35 minutes Subjective Date/time seen: 02/14/24 09:45 Interval history: Patient is pleasant sitting up in his chair. He has no complaints at this time denying chest pain, shortness a breath, nausea / vomiting, abdominal pain. Patient's urine culture is growing this Citrobacter koseri. Discuss this ID pharmacy and will transition patient to Bactrim at this time complete the antibiotic course. He continues to have lower blood pressures in the 100 systolic. He remains on the lower dose of Coreg we are holding his heart he andLasix. He states that he has been trying to work with physical therapy and occupational therapy to regain his strength. We are currently awaiting insurance authorization for placement for ongoing therapy. Review of Systems Review of Systems: All systems reviewed & are unremarkable except as noted in HPI and below Exam Narrative: AF HR 87 RR 18 SpO2 98 BP 104/47 General: male in no acute respiratory distress who is nontoxic appearing, sitting up in his chair HEENT: Normocephalic. Atraumatic. Extraocular movement intact. Sclera clear and anicteric. No facial asymmetry. Chest: Lungs are clear to auscultation bilaterally. No wheezes or crackles. CV: Heart was regular rate and rhythm. S1/S2. No murmurs, gallops, or rubs. Abd: Abdomen was soft. Nontender. Nondistended. Positive bowel sounds. No organomegaly or masses. Ext: No clubbing, cyanosis, or edema. 1+ DP pulses bilaterally. Neuro: Patient is alert. Cranial nerves 2-12 are intact. Speech is clear. Objective Data Vital Signs Vital Signs: Vital Signs - 24 hr 02/13/24 10:14 02/13/24 11:10 02/13/24 14:00 Temperature 97.8 F Pulse Rate 78 Respiratory Rate 17 Blood Pressure 106/58 L Pulse Oximetry 100 Oxygen Delivery Room Air Room Air 02/13/24 20:05 02/13/24 21:30 02/14/24 06:00 Temperature 96.9 F L 96.7 F L Pulse Rate 84 73 Respiratory Rate 18 20 Blood Pressure 112/58 L 104/54 L Pulse Oximetry 100 98 Oxygen Delivery Room Air 02/14/24 07:58 Temperature Pulse Rate 89 Respiratory Rate Blood Pressure Pulse Oximetry Oxygen Delivery Intake/Output Intake/Output: Intake & Output 02/11/24 02/12/24 02/13/24 02/14/24 23:59 23:59 23:59 23:59 Intake Total 1550 1520 1990 1152 Output Total 1350 2100 700 Balance 1550 170 -110 452 Meds/Results Medications: Active Medications Generic Name Dose Route Start Last Admin Trade Name Freq PRN Reason Stop Dose Admin Acetaminophen 650 mg 02/11/24 23:31 Acetaminophen 325 Mg Tablet PO Q6H PRN Mild Pain (1-3) or Fever Atorvastatin Calcium 80 mg 02/12/24 09:00 02/14/24 07:58 Atorvastatin 40 Mg Tablet PO 80 mg DAILY CARMELA Administration Carvedilol 12.5 mg 02/12/24 21:00 02/14/24 07:58 Carvedilol 12.5 Mg Tablet PO 12.5 mg Q12HR CARMELA Administration Dextrose 12.5 gm 02/11/24 23:31 Dextrose 50% 25 Gm/50 Ml Syringe IV PUSH PRN PRN Hypoglycemia Protocol Ergocalciferol 50,000 units 02/12/24 09:00 02/12/24 09:24 Ergocalciferol 50,000 Units Capsule PO 50,000 units Mo@0900 [facility] Administration Glucagon 1 mg 02/11/24 23:31 Glucagon For Inj 1 Mg Vial IM PRN PRN Hypoglycemia Protocol Glucose 15 gm 02/11/24 23:31 Glucose Oral Gel 15 Gm Of Glucse In 37.5 Gm Tube PO PRN PRN Hypoglycemia Protocol Ceftriaxone Sodium 1 gm in 50 mls @ 100 mls/hr 02/12/24 16:00 02/13/24 16:38 Rocephin 1 Gm/Ns 50 Ml IVPB 100 mls/hr Q24H CARMELA Administration Dextrose 1,000 mls @ 100 mls/hr 02/11/24 23:31 Dextrose 5% 1,000 Ml IVPB PRN PRN Hypoglycemia Protocol Insulin Aspart 1 - 3 units 02/11/24 21:00 02/13/24 21:15 Insulin Aspart (*Bkc) 100 Units/Ml SUB-Q 1 units HS [facility] Administration Protocol Insulin Aspart 3 - 6 units 02/12/24 08:00 02/14/24 07:58 Insulin Aspart (*Bkc) 100 Units/Ml SUB-Q Not Given TIDWM [facility] Protocol Multi-Ingred Cream/Lotion/Oil/Oint 1 applic 02/12/24 09:00 02/14/24 07:59 Eucerin Cream 120 Gm Jar TOPICAL 1 applic DAILY [facility] Administration Psyllium Hydrophilic Mucilloid 1 packet 02/12/24 09:00 02/14/24 08:00 Psyllium Powder Packet PO Not Given QAM [facility] Warfarin Sodium 5 mg 02/13/24 17:00 Warfarin (*Pbkc) 5 Mg Tablet PO DAILY@1700 [facility] Radiology Results: ITS Impressions Chest X-Ray 02/11/24 13:55 Impression: Clear lungs. Chest/Abdomen/Pelvis/Spine CT 02/11/24 16:17 IMPRESSION: Multiple pulmonary nodules measuring up to 9 mm in the right lower lobe. Recommend follow-up low-dose noncontrast CT of the chest in 3-6 months. Mediastinal lymphadenopathy. 8 mm pancreatic body cyst, recommend follow-up CT abdomen and pelvis with contrast in 2 years. 2.0 cm left adrenal nodule, probably benign, consider follow-up adrenal CT in 12months, unless there is a history of cancer, [facility] which [facility] No acute fracture fracture or traumatic malalignment detected in the thoracic orlumbar spine. Lumbar Spine MRI 02/13/24 08:55 IMPRESSION: 1. Moderate lumbar spondylosis, worst at L4-L5 and L5-S1. Labs Labs: Laboratory Results - last 24 hr 02/13/24 02/13/24 02/13/24 11:09 12:04 16:23 WBC RBC Hgb Hct MCV MCH MCHC RDW Plt Count MPV PT INR Sodium Potassium Chloride Carbon Dioxide Anion Gap BUN Creatinine Estim Creat Clear Calc Estimated GFR Glucose POC Capillary Glucose 182 H 186 H Calcium C. difficile (PCR) Negative 02/13/24 02/14/24 02/14/24 20:05 06:15 06:16 WBC 7.7 RBC 2.97 L Hgb 9.4 L Hct 28.6 L MCV 96.3 MCH 31.6 MCHC 32.9 RDW 13.8 Plt Count 209 MPV 10.7 H PT 37.0 H INR 3.7 Sodium 136 L Potassium 3.7 Chloride 102 Carbon Dioxide 27 Anion Gap 7 BUN 39 H Creatinine 1.70 H Estim Creat Clear Calc 52 Estimated GFR 40 L Glucose 157 H POC Capillary Glucose 226 H Calcium 9.1 C. difficile (PCR) 02/14/24 07:29 WBC RBC Hgb Hct MCV MCH MCHC RDW Plt Count MPV PT INR Sodium Potassium Chloride Carbon Dioxide Anion Gap BUN Creatinine Estim Creat Clear Calc Estimated GFR Glucose POC Capillary Glucose 154 H Calcium C. difficile (PCR) Quality VTE Prophylaxis VTE prophylaxis: mechanical ordered This report may have been done utilizing a voice recognition system. Attempts have been made to correct errors. However, there may be uncorrected grammatical,spelling, and recognition errors present. Report Initialized date/time: Gail Rothman 02/14/24 / 1003 Electronically signed by: Gail Rothman 02/14/24 1551 Progress Note Author Gail Rothman [facility] Note Date/Time February 15, 2024 2:02pm [facility] [address] [place] [address] Hospitalist Progress Note Signed Patient: Erwin Isaac MR#: [id number] : 1950 Acct:[id number] Age: 73 ADM Date: 02/11/24 Loc: [address] [id number]: Gail Rothman PA-C cc: ~ Progress Note: A&P Assessment and Plan (1) Sepsis: Code(s): A41.9 - Sepsis, unspecified organism Status: Acute Assessment and Plan: Meets SIRS criteria: hypotensive, WBC - lactic acid: 1.3 - Fluid resuscitated - suspected source: UTI - blood cultures drawn on 02/10: NGTD - UA: Turbid appearance with trace ketones, 1+ blood, 3+ leukocytes, greater than 100 WBC, 4+ bacteria - UC obtained on 02/10: Citrobacter Koseri - CXR unremarkable - started on Rocephin on 02/11, transitioned to bactrim on 02/13 (2) Urinary tract infection: Code(s): N39.0 - Urinary tract infection, site not specified Status: Acute Assessment and Plan: - UA: Turbid appearance with trace ketones, 1+ blood, 3+ leukocytes, greater than 100 WBC, 4+ bacteria - UC obtained on 02/10: Citrobacter Koseri - No previous micro to be reviewed - started on Rocephin on 02/11, transitioned to bactrim on 02/13 (3) Weakness of both lower extremities: Code(s): R29.898 - Other symptoms and signs involving the musculoskeletal system Status: Acute Assessment and Plan: This does not seem to be in acute problems and more an ongoing issue to the point where the patient is now not able to even stand on his own although that is likely precipitated by his urinary tract infection. Worsened in the last few weeks to the points where he could not move much at all. - UA: Turbid appearance with trace ketones, 1+ blood, 3+ leukocytes, greater than 100 WBC, 4+ bacteria - UC obtained on 02/10: Citrobacter Koseri - CXR unremarkable - Chest/abdomen/pelvis CT: Multiple pulmonary nodules measuring up to 9 mm in the right lower lobe. Recommend follow-up low-dose noncontrast CT of the chest in 3-6 months. Mediastinal lymphadenopathy. 8 mm pancreatic body cyst, recommend follow-up CT abdomen and pelvis with contrast in 2 years. 2.0 cm left adrenal nodule, probably benign, consider follow-up adrenal CT in12 months, unless there is a history of cancer, in which case consider referral for nonemergent outpatient adrenal CT now. No acute fracture fracture or traumatic malalignment detected in the thoracicor lumbar spine. - Lumbar MRI: Moderate lumbar spondylosis, worst at L4-L5 and L5-S1. pt/ot ordered (4) Atrial fibrillation: Code(s): I48.91 - Unspecified atrial fibrillation Status: Acute Assessment and Plan: His atrial fibrillation is rate controlled on carvedilol which will be continuedwith parameters. Hold this evening dose of warfarin as his INR is therapeutic and monitor daily. - bp is soft- will decrease coreg dose to 12.5 mg BID and monitor for HR/BP 02/13- stable-will continue current coreg dose for now- can increase back to home dose once BP is stable to avoid afib exacerbation (5) Hypertension: Code(s): I10 - Essential (primary) hypertension Status: Acute Assessment and Plan: Chronic, hypotensive on admission with systolics in the 90s. - Blood pressures continue to be low in the 100 systolic - carvedilol dose decreased to 12.5 mg b.i.d. for AFib control - continue holding losartan 50 mg daily, lasix 80 mg daily, and spironolactone 50 mg daily - discussed patient with cardiology and they recommend resuming in the [facility] firstif the blood pressures will tolerate, however after reviewing blood pressures again they are still on lower side of normal at 100 systolic. Continue to hold.Patient will likely need to follow-up with his primary care versus [employer] [employer] director in regards to resuming the medications in the outpatient setting. - monitor (6) Nonischemic cardiomyopathy: Code(s): I42.8 - Other cardiomyopathies Status: Acute Assessment and Plan: Hypotensive on admission with systolics in the 90s. Hold diuretics and antihypertensives for now; this will need to be readdressed once he is adequately hydrated so he can be started back on guideline directed medical therapy for his nonischemic cardiomyopathy. (7) Chronic kidney disease, stage 4 (severe): Code(s): N18.4 - Chronic kidney disease, stage 4 (severe) Status: Acute Assessment and Plan: BUN/Cr ae at baseline. - Monitor BUN/Cr on am labs - renally dose medications - avoid nephrotoxic medications (8) Insulin dependent type 2 diabetes mellitus: Code(s): E11.9 - Type 2 diabetes mellitus without complications; Z79.4 - [facility] (current) use of insulin Status: Acute Assessment and Plan: Continue basal insulin and check hemoglobin A1c. 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 Recommend follow-up low-dose noncontrast CT of the chest in 3-6 months. Mediastinal lymphadenopathy. 8 mm pancreatic body cyst, recommend follow-up CT abdomen and pelvis with contrast in 2 years. 2.0 cm left adrenal nodule, probably benign, consider follow-up adrenal CT in12 months, unless there is a history of cancer, in which case consider referral for nonemergent outpatient adrenal CT now. No acute fracture fracture or traumatic malalignment detected in the thoracicor lumbar spine. - Lumbar MRI: Moderate lumbar spondylosis, worst at L4-L5 and L5-S1. (11) Adrenal nodule: Code(s): E27.9 - Disorder of adrenal gland, unspecified Status: Acute Assessment and Plan: - Chest/abdomen/pelvis CT: Multiple pulmonary nodules measuring up to 9 mm in the right lower lobe. Recommend follow-up low-dose noncontrast CT of the chest in 3-6 months. Mediastinal lymphadenopathy. 8 mm pancreatic body cyst, recommend follow-up CT abdomen and pelvis with contrast in 2 years. 2.0 cm left adrenal nodule, probably benign, consider follow-up adrenal CT in12 months, unless there is a history of cancer, in which case consider referral for nonemergent outpatient adrenal CT now. No acute fracture fracture or traumatic malalignment detected in the thoracicor lumbar spine. - Lumbar MRI: Moderate lumbar spondylosis, worst at L4-L5 and L5-S1. (12) Pancreatic cyst: Code(s): K86.2 - Cyst of pancreas Status: Acute Assessment and Plan: - Chest/abdomen/pelvis CT: Multiple pulmonary nodules measuring up to 9 mm in the right lower lobe. Recommend follow-up low-dose noncontrast CT of the chest in 3-6 months. Mediastinal lymphadenopathy. 8 mm pancreatic body cyst, recommend follow-up CT abdomen and pelvis with contrast in 2 years. 2.0 cm left adrenal nodule, probably benign, consider follow-up adrenal CT in12 months, unless there is a history of cancer, in which case consider referral for nonemergent outpatient adrenal CT now. No acute fracture fracture or traumatic malalignment detected in the thoracicor lumbar spine. - Lumbar MRI: Moderate lumbar spondylosis, worst at L4-L5 and L5-S1. Time Spent With Patient Time with patient: 25 - 35 minutes Subjective Date/time seen: 02/15/24 09:52 Interval history: Patient is pleasant lying comfortably in bed with his family at bedside. He continues to endorse slight diarrhea but notes that this is improving since admission. He has no other complaints denying chest pain, shortness a breath, palpitations, nausea / vomiting, and abdominal pain. Discussed patient with cardiology and they recommend resuming in the 1st the list is is blood pressureswill tolerate, however after reviewing blood pressures again they still on lowerside of normal at 100 systolic. Continue to hold. Patient will likely need to follow-up with his primary care versus [place] [employer] director regards to resuming of the medications in the outpatient setting. Review of Systems Review of Systems: All systems reviewed & are unremarkable except as noted in HPI and below Exam Narrative: AF HR 77 RR 20 SPO2 99 BP 14/60 General: male in no acute respiratory distress who is nontoxic appearing, sitting up in his chair HEENT: Normocephalic. Atraumatic. Extraocular movement intact. Sclera clear and anicteric. No facial asymmetry. Chest: Lungs are clear to auscultation bilaterally. No wheezes or crackles. CV: Heart was regular rate and rhythm. S1/S2. No murmurs, gallops, or rubs. Abd: Abdomen was soft. Nontender. Nondistended. Positive bowel sounds. No organomegaly or masses. Ext: No clubbing, cyanosis, or edema. 1+ DP pulses bilaterally. Neuro: Patient is alert. Cranial nerves 2-12 are intact. Speech is clear. Objective Data Vital Signs Vital Signs: Vital Signs - 24 hr 02/14/24 14:00 02/14/24 20:29 02/14/24 21:15 Temperature 97.1 F L 97.6 F Pulse Rate 87 83 69 Respiratory Rate 18 20 Blood Pressure 104/47 L 105/60 Pulse Oximetry 98 99 02/15/24 06:00 02/15/24 09:19 Temperature 98.0 F Pulse Rate 77 88 Respiratory Rate 20 Blood Pressure 114/60 Pulse Oximetry 99 Intake/Output Intake/Output: Intake & Output 02/12/24 02/13/24 02/14/24 02/15/24 23:59 23:59 23:59 23:59 Intake Total 1520 1990 1872 100 Output Total 1350 2100 1150 Balance 170 -110 722 100 Meds/Results Medications: Active Medications Generic Name Dose Route Start Last Admin Trade Name Freq PRN Reason Stop Dose Admin Acetaminophen 650 mg 02/11/24 23:31 Acetaminophen 325 Mg Tablet PO Q6H PRN Mild Pain (1-3) or Fever Atorvastatin Calcium 80 mg 02/12/24 09:00 02/15/24 09:18 Atorvastatin 40 Mg Tablet PO 80 mg DAILY CARMELA Administration Carvedilol 12.5 mg 02/12/24 21:00 02/15/24 09:19 Carvedilol 12.5 Mg Tablet PO 12.5 mg Q12HR CARMELA Administration Dextrose 12.5 gm 02/11/24 23:31 Dextrose 50% 25 Gm/50 Ml Syringe IV PUSH PRN PRN Hypoglycemia Protocol Ergocalciferol 50,000 units 02/12/24 09:00 02/12/24 09:24 Ergocalciferol 50,000 Units Capsule PO 50,000 units Mo@0900 CARMELA Administration Glucagon 1 mg 02/11/24 23:31 Glucagon For Inj 1 Mg Vial IM PRN PRN Hypoglycemia Protocol Glucose 15 gm 02/11/24 23:31 Glucose Oral Gel 15 Gm Of Glucse In 37.5 Gm Tube PO PRN PRN Hypoglycemia Protocol Dextrose 1,000 mls @ 100 mls/hr 02/11/24 23:31 Dextrose 5% 1,000 Ml IVPB PRN PRN Hypoglycemia Protocol Insulin Aspart 1 - 3 units 02/11/24 21:00 02/14/24 20:35 Insulin Aspart (*Bkc) 100 Units/Ml SUB-Q 1 units HS CARMELA Administration Protocol Insulin Aspart 3 - 6 units 02/12/24 08:00 02/15/24 08:07 Insulin Aspart (*Bkc) 100 Units/Ml SUB-Q Not Given [facility] Protocol Multi-Ingred Cream/Lotion/Oil/Oint 1 applic 02/12/24 09:00 02/15/24 09:21 Eucerin Cream 120 Gm Jar TOPICAL 1 applic DAILY CARMELA Administration Psyllium Hydrophilic Mucilloid 1 packet 02/12/24 09:00 02/15/24 09:16 Psyllium Powder Packet PO 1 packet QAM CARMELA Administration Trimethoprim/Sulfamethoxazole 1 tab 02/14/24 14:30 02/15/24 09:19 Sulfamethoxazole/Trimethoprim 800/160 Mg Ds Tablet PO 02/17/24 21:01 1 tab Q12HR CARMELA Administration Warfarin Sodium 5 mg 02/13/24 17:00 Warfarin (*Pbkc) 5 Mg Tablet PO DAILY@1700 [facility] Radiology Results: ITS Impressions Chest X-Ray 02/11/24 13:55 Impression: Clear lungs. Chest/Abdomen/Pelvis/Spine CT 02/11/24 16:17 IMPRESSION: Multiple pulmonary nodules measuring up to 9 mm in the right lower lobe. Recommend follow-up low-dose noncontrast CT of the chest in 3-6 months. Mediastinal lymphadenopathy. 8 mm pancreatic body cyst, recommend follow-up CT abdomen and pelvis with contrast in 2 years. 2.0 cm left adrenal nodule, probably benign, consider follow-up adrenal CT in 12months, unless there is a history of cancer, in which case [facility]. No acute fracture fracture or traumatic malalignment detected in the thoracic orlumbar spine. Lumbar Spine MRI 02/13/24 08:55 IMPRESSION: 1. Moderate lumbar spondylosis, worst at L4-L5 and L5-S1. Labs Labs: Laboratory Results - last 24 hr 02/14/24 02/14/24 02/14/24 11:29 16:27 20:33 WBC RBC Hgb Hct MCV MCH MCHC RDW Plt Count MPV PT INR Sodium Potassium Chloride Carbon Dioxide Anion Gap BUN Creatinine Estim Creat Clear Calc Estimated GFR Glucose POC Capillary Glucose 216 H 228 H 211 H Calcium 02/15/24 02/15/24 07:07 07:36 WBC 8.2 RBC 3.13 L Hgb 10.1 L Hct 30.4 L MCV 97.1 MCH 32.3 MCHC 33.2 RDW 14.1 Plt Count 221 MPV 11.0 H PT 29.3 H D INR 2.7 Sodium 136 L Potassium 3.8 Chloride 101 Carbon Dioxide 27 Anion Gap 8 BUN 37 H Creatinine 1.60 H Estim Creat Clear Calc 54 Estimated GFR 43 L Glucose 156 H POC Capillary Glucose 167 H Calcium 9.3 Quality VTE Prophylaxis VTE prophylaxis: mechanical ordered This report may have been done utilizing a voice recognition system. Attempts have been made to correct errors. However, there may be uncorrected grammatical,spelling, and recognition errors present. Report Initialized date/time: aGil Rothman 02/15/24 / 0954 Electronically signed by: Gail Rothman 02/15/24 2064
--- OUTSIDE RECORDS SUMMARY | 2024-04-15 05:58 | XMS_ITS | Encounter Summary ---
Author Organization [facility] Healthcare Address [address] [place] [address] Care Team Providers Care Senior Javascript Engineer Name Role Phone Erwin Gardner MD Primary Care Provide r Kev Dey MD Unavailable [phone] Amelia Rodrigez DPM Unavailable [phone] Meghan Cordero MD Unavailable [phone] Dennys Coates MD Unavailable [phone] Erwin Velasquez MD Unavailable [phone] Reason for Referral * Diagnostic Imaging (Routine) - Authorized Specialty Diagnoses / Procedures Referred By Contac t Referred To Contact Diagnoses PVD (peripheral vascular disease) with claudication (HCC) Procedures US Arterial Doppler Lower Extremity Bilateral Arley Church MD [address] [facility] [address] [place] [address] Phone: tel: fax: [facility] Medical Group Vascular and Vein Surgery at [address] [place] [address] Phone: tel: fax: Referral ID Status Reason Start Date Expiration Date V isits Requested Visits Authorized [id number] Authorized 12/06/2023 01/04/2025 1 1 Encounter Details Date Type Department Care Team (Late st Contact Info) Description 12/06/2023 Orders Only [facility] Medical Group Vascular at [address] [place] [address] Arley Church MD [address] [facility] [address] [address] PVD (peripheral vascular disease) with claudication (HCC) (Primary Dx) Social History Tobacco Use Types Packs/Day Years Used Date Smoking Tobacco: Never Smokeless Tobacco: Never Alcohol Use Standard Drinks/Week Comments No 0 (1 standard drink = 0.6 oz pur e alcohol) AUDIT-C Answer Date Recorded Q1: How often do you have a drink containing alc ohol? Never 06/24/2021 Average Number of Drinks Not on file 022 Q3: How often do you have si x or more drinks on one occasion? 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 Gender Identity Not on file Sexual Orientation Not on file documented as of this encounter Plan of Treatment Scheduled Orders Name Type Priority Associated Diagnoses Orde r Schedule US Arterial Doppler Lower Extremity Bilateral Imaging Schedule Routine, Read Routine (OP Routine) PVD (peripheral vascular disease) with claudication (HCC) Expected: 12/20/2023, Expires: 06/04/2025 documented as of this encounter Visit Diagnoses Diagnosis PVD (peripheral vascular disease) with claudication (HCC)- Primary Unspecified peripheral vascular disease documented in this encounter Care Teams Senior Javascript Engineer Relationship Specialty Start Date End Date Erwin Gardner MD [address] [place] [address] PCP - General 07/01/16 Kev Dey MD [address] [place] [address] Referring Physician Nephrology 05/10/19 Amelia Rodrigez DPM [address] [facility] [place] [address] Consulting Physician Foot and Ankle Surg 06/28/19 Meghan Cordero MD [address] [place] [address] Referring Physician Dermatology 06/02/21 Dennys Coates MD [address] [place] [address] [place] [address] Consulting Physician Dermatology 06/02/21 Erwin Velasquez MD [address] [facility] [address] [place] [address] Consulting Physician Cardiology 06/02/21 documented as of this encounter
--- OUTSIDE RECORDS SUMMARY | 2024-04-15 05:58 | XMS_ITS | Encounter Summary ---
Author Organization [facility] Medical Group Address [address] [facility] [address] [place] [address] Care Team Providers Care Portal Administrator Name Role Phone Erwin Gardner MD Primary Care Provide r Kev Dey MD Unavailable [phone] Amelia Rodrigez DPM Unavailable [phone] Meghan Cordero MD Unavailable [phone] Dennys Coates MD Unavailable [phone] Erwin Velasquez MD Unavailable [phone] Encounter Details Date Type Department Care Team (Latest Contact Info) Description 08/13/2021 Anticoagulation Visit [facility] Medical [facility] Cardiology [address] [place] [address] Vicky Ugalde, RN Atrial fibrillation, unspecified type (HCC) (Primary Dx) Social History Tobacco Use [...] on file 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 Gender Identity Not on file Sexual Orientation Not on file documented as of this encounter Plan of Treatment Not on file documented as of this encounter Visit Diagnoses Diagnosis Atrial fibrillation, unspecified type (HCC)- Primary documented in this encounter Care Teams Portal Administrator Relationship Specialty Start Date End Date Erwin Gardner MD [address] [place] [address] PCP - General 07/01/16 Kev Dey MD [address] [place] [address] Referring Physician Nephrology 05/10/19 Amelia Rodrigez DPM [address] [facility] [address] Consulting Physician Foot and Ankle Surg 06/28/19 Meghan oCrdero MD [address] [place] [address] Referring Physician Dermatology 06/02/21 Dennys Coates MD [address] [place] [address] [place] [address] Consulting Physician Dermatology 06/02/21 Erwin Velasquez MD [address] [place] [address] Consulting Physician Cardiology 06/02/21 documented as of this encounter
--- OUTSIDE RECORDS SUMMARY | 2024-04-15 05:58 | XMS_ITS | Encounter Summary ---
Author Organization [facility] Healthcare Address [address] [place] [address] Care Team Providers Care Release Coordinator Name Role Phone Erwin Gardner MD Primary Care Provide r Kev Dey MD Unavailable [phone] Amelia RodrigezM Unavailable [phone] Meghan Cordero MD Unavailable [phone] Dennys Coates MD Unavailable [phone] Erwin Velasquez MD Unavailable [phone] Reason for Visit * Reason Onset Date Comments INR order 01/24/2024 Encounter Details Date Type Department Care Team (Late st Contact Info) Description 01/24/2024 Telephone [facility] Medical Group Cardiology [address] [place] [address] Erwin Velasquez MD [address] [facility] [address] [place] [address] INR order Social History Tobacco Use Types Packs/Day Years [...] on file 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 * Telephone Encounter - Brit Aguilar - 01/24/2024 11:58 AM CDT Patient requesting that a standing protime INR order be sent to [facility]. Patient states that he is no longer there and will go have his INR checked another day. Please advise. Thank you. Contact [phone] documented in this encounter Plan of Treatment Scheduled Orders Name Type Priority Associated Diagnoses Orde r Schedule Protime-INR Lab Routine Atrial fibrillation, unspecified type (HCC) weekly for 52 Occurrences starting 01/24/2024 until 01/23/2025 documented as of this encounter Visit Diagnoses Diagnosis Atrial fibrillation, unspecified type (HCC)- Primary documented in this encounter Care Teams Release Coordinator Relationship Specialty Start Date End Date Erwin Gardner MD [address] [place] [address] PCP - General 07/01/16 Kev Dey MD [address] [place] [address] Referring Physician Nephrology 05/10/19 Amelia Rodrigez DPM [address] [place] [address] Consulting Physician Foot and Ankle Surg 06/28/19 Meghan Cordero MD [address] [place] [address] Referring Physician Dermatology 06/02/21 Dennys Coates MD [address] [place] [address] [place] [address] Consulting Physician Dermatology 06/02/21 Erwin Vealsquez MD [address] [place] [address] Consulting Physician Cardiology 06/02/21 documented as of this encounter
--- OUTSIDE RECORDS SUMMARY | 2024-04-15 05:58 | XMS_ITS | Encounter Summary ---
Author Organization [facility] Medical Group Address [address] [facility] [address] [place] [address] Care Team Providers Care Trailer Technician Name Role Phone Erwin Gardner MD Primary Care Provide r Kev Dey MD Unavailable [phone] Amelia Rodrigez DPM Unavailable [phone] Meghan Cordero MD Unavailable [phone] Dennys Coates MD Unavailable [phone] Erwin Velasquez MD Unavailable [phone] Encounter Details Date Type Department Care Team (Latest Contact Info) Description 07/06/2021 Anticoagulation Visit [facility] Medical [facility] Cardiology [address] [place] [address] Leigh Garcia RN Atrial fibrillation, unspecified type (HCC) (Primary [...] on file 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 Gender Identity Not on file Sexual Orientation Not on file documented as of this encounter Plan of Treatment Not on file documented as of this encounter Visit Diagnoses Diagnosis Atrial fibrillation, unspecified type (HCC)- Primary documented in this encounter Care Teams Trailer Technician Relationship Specialty Start Date End Date Erwin Gardner MD [address] [place] [address] PCP - General 07/01/16 Kev Dey MD [address] [place] [address] Referring Physician Nephrology 05/10/19 Amelia Rodrigez DPM [address] [facility] [place] [address] Consulting Physician Foot and Ankle Surg 06/28/19 Meghan Cordero MD [address] [place] [address] Referring Physician Dermatology 06/02/21 Dennys Coates MD [address] [place] [address] [place] [address] Consulting Physician Dermatology 06/02/21 Erwin Velasquez MD [address] [facility] [address] [place] [address] Consulting Physician Cardiology 06/02/21 documented as of this encounter
--- OUTSIDE RECORDS SUMMARY | 2024-04-15 05:58 | XMS_ITS | Encounter Summary ---
Author Organization [facility] Address [address] [place] [address] Care Team Providers Care Audio Video Tech Name Role Phone Erwin Gardner MD Primary Care Provide r Kev Dey MD Unavailable [phone] Amelia Rodrigez DPM Unavailable [phone] Meghan Cordero MD Unavailable [phone] Dennys Coates MD Unavailable [phone] Erwin Velasquez MD Unavailable [phone] Reason for Visit * Reason Comments Cardiomyopathy 6 month follow up. * Consultation (Routine) - Closed Specialty Diagnoses / Procedures Referred By Contac t Referred To Contact Cardiology Diagnoses Atrial fibrillation, unspecified type (HCC) Erwin Gardner MD [address] [place] [address] Phone: tel: fax: [facility] Cardiology [address] [place] [address] Phone: tel: fax: Referral ID Status Reason Start Date Expiration Date V isits Requested Visits Authorized [id number] Closed Specialty Services Required 05/10/2022 05/11/2023 12 12 Encounter Details Date Type Department Care Team (Late st Contact Info) Description 11/24/2022 8:30 AM CDT Office Visit [facility] Cardiology [address] [place] [id number] Erwin Velasquez MD [address] [place] [address] Lipid screening (Primary Dx); Atrial fibrillation, unspecified type (HCC); Cardiomyopathy, idiopathic (HCC) Social History Tobacco Use Types Packs/Day Years [...] on file 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 Gender Identity Not on file Sexual Orientation Not on file documented as of this encounter Last Filed Vital Signs Vital Sign Reading Time Taken Comments Blood Pressure 108/60 11/24/2022 8:30 AM CDT Pulse 73 11/24/2022 8:30 AM CDT Temperature - - Respiratory Rate - - Oxygen Saturation 97% 11/24/2022 8:30 AM CDT Inhaled Oxygen Concentration - - Weight 146.5 kg (323 lb) 11/24/2022 8:30 AM CDT Height 190.5 cm (6' 3 ) 11/24/2022 8:30 AM CDT Body Mass Index 40.37 11/24/2022 8:30 AM CDT documented in this encounter Progress Notes * Erwin Velasquez MD - 11/24/2022 8:30 AM CDT [facility] FOLLOW UP 11/24/2022 Erwin Alfredo Isaac is a 72 y.o. male who presents for follow up of chronic atrial fibrillation and a history of nonischemic cardiomyopathy. The patient initially presented in June of 2002 and with medical treatment did very well. Catheterization at that time demonstrated normal coronary arteries. He developed atrial fibrillation in the summer of 2016. Attempt at cardioversion failed and since then he has been anticoagulated and rate controlled. He follows with a advertising associate as well as he has developed some chronic kidney disease. He presents to the office today for scheduled six-month follow-up. He feels fine and describes no cardiovascular symptoms. 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 Hewanted to discuss this for a while. His principal health problem has been some diabetic neuropathy in the lower extremities which makes it difficult for him to get up and ambulate at times. REVIEW OF SYSTEMS General ROS: negative for - chills, fatigue, fever, malaise, night sweats, weight gain or weight loss Psychological ROS: negative for - anxiety, depression, memory difficulties or sleep disturbances Ophthalmic ROS: negative for - blurry vision, decreased vision, loss of vision or scotomata ENT ROS: negative for - epistaxis, headaches, hearing change, nasal congestion, nasal discharge, sore throat, vertigo or visual changes Hematological and Lymphatic ROS: negative for - bleeding problems, blood clots, bruising, fatigue or weight loss Endocrine ROS: negative for - hot flashes, palpitations, polydipsia/polyuria or unexpected weight changes Respiratory ROS: negative for - cough, hemoptysis, orthopnea, shortness of breath, tachypnea or wheezing Cardiovascular ROS: negative for - chest pain, dyspnea on exertion, edema, irregular heartbeat, loss of consciousness, murmur, orthopnea, palpitations, paroxysmal nocturnal dyspnea, rapid heart rate or shortness of breath Gastrointestinal ROS: negative for - abdominal pain, appetite loss, blood in stools, constipation, diarrhea, gas/bloating, heartburn, hematemesis, melena or nausea/vomiting Genito-Urinary ROS: negative for - dysuria, erectile dysfunction or hematuria Musculoskeletal ROS: negative for - joint pain, muscle pain or muscular weakness Dermatological ROS: negative for dry skin, eczema, pruritus and rash HOME MEDICATIONS Current Outpatient Medications: acetaminophen (TYLENOL) 500 mg tablet, Take 2 tablets (1,000 mg total) by mouth nightly, Disp: , Rfl: atorvastatin (LIPITOR) 20 mg tablet, TAKE 1 TABLET BY MOUTH DAILY, Disp: 90 tablet, Rfl: 3 carvediloL (COREG) 25 mg tablet, Take 0.5 tablets (12.5 mg total) by mouth 2 (two) times a day withmeals, Disp: 90 tablet, Rfl: 1 fenofibrate (TRIGLIDE) 160 mg tablet, TAKE 1 TABLET BY MOUTH EVERY DAY, Disp: 90 tablet, Rfl: 3 fish oil-dha-epa 1,200-144-216 mg capsule, Take 1 capsule by mouth 2 (two) times a day, Disp: , Rfl: furosemide (LASIX) 80 mg tablet, TAKE ONE AND ONE-HALF TABLETS BY MOUTH DAILY, Disp: 135 tablet, Rfl: 1 gabapentin (NEURONTIN) 100 mg capsule, Take 1 capsule (100 mg total) by mouth 3 (three) times a day, Disp: , Rfl: insulin NPH (HumuLIN N, NovoLIN N) 100 unit/mL vial for injection, Inject 60 Units under the skin 2(two) times a day, Disp: , Rfl: insulin regular (HumuLIN R, NovoLIN R) 100 unit/mL injection, Inject under the skin 3 (three) timesa day before meals Sliding scale, Disp: , Rfl: Klor-Con M20 20 mEq CR tablet, TAKE 1 TABLET BY MOUTH EVERY DAY, Disp: 90 tablet, Rfl: 3 losartan (COZAAR) 50 mg tablet, Take 1 tablet (50 mg total) by mouth daily, Disp: 30 tablet, Rfl: 11 mupirocin (BACTROBAN) 2 % ointment, APPLY A SMALL AMOUNT TO THE AFFECTED AREA(S) ON LEG 3 TIMES DAILY, Disp: , Rfl: spironolactone (ALDACTONE) 50 mg tablet, TAKE 1 TABLET BY MOUTH EVERY DAY, Disp: 90 tablet, Rfl: 2 triamcinolone (KENALOG) 0.1 % cream, Apply topically as needed, Disp: , Rfl: ULTICARE 1 mL 30 gauge x 1/2 syringe, , Disp: , Rfl: warfarin (COUMADIN) 2.5 mg tablet, Take 1 tablet (2.5 mg total) by mouth once a week Monday, Disp: , Rfl: warfarin (COUMADIN) 5 mg tablet, TAKE 1 TABLET BY MOUTH EVERY DAY, Disp: 90 tablet, Rfl: 0 erythromycin (ILOTYCIN) ophthalmic ointment, Apply to eyelid incisions [address] Only place ointment in the eyes if they are irritated. (Patient not taking: Reported on 10/06/2021), Disp: 3.5 g, Rfl: 3 LABS AND OTHER DIAGNOSTIC TESTS No results found for: CHOL No results found for: HDL No results found for: LDLCALC No results found for: TRIG No results found for: CHOLHDL Lab Results Component Value Date WBC 7.2 02/03/2021 HGB 11.1 (L) 02/03/2021 HCT 33.5 (L) 02/03/2021 MCV 91.3 02/03/2021 No lab exists for component: LABALBU PHYSICAL EXAM Vitals BP 108/60 (BP Location: Right arm, Patient Position: Sitting) Pulse 73 Ht 190.5 cm (6' 3 ) Wt (!) 146.5 kg (323 lb) SpO2 97% BMI 40.37 kg/m?? Physical Examination: General appearance -significantly obese white male, oriented to person, place, and time and acyanotic, in no respiratory distress Mental status - affect appropriate to mood Eyes - extraocular eye movements intact, sclera anicteric, no pallor Ears - external earsappear normal, hearing grossly normal bilaterally Nose - normal and patent, no erythema or discharge Mouth - mucous membranes moist, pharynx appears normal, dental hygiene good and tongue normal Neck - supple, no significant neck masses, carotids upstroke normal bilaterally, no bruits, no JVD Chest - clear to auscultation, no wheezes, rales or rhonchi, symmetric air entry, no tachypnea, retractions or cyanosis Heart - normal rate, regular rhythm, normal S1, S2, no murmurs, rubs, clicks or gallops, no JVD Abdomen - soft, nontender, nondistended, no masses or organomegaly bowel sounds normal Neurological - alert, oriented, normal speech, no focal findings or movement disorder noted Musculoskeletal - no joint tenderness, deformity or swelling, no muscular tenderness noted Extremities - peripheral pulses normal, no pedal edema, no clubbing or cyanosis Skin - normal coloration and turgor, no rashes, no suspicious skin lesions noted ASSESSMENT Erwin was seen today for cardiomyopathy. Diagnoses and all orders for this visit: Lipid screening - POCT lipid panel Atrial fibrillation, unspecified type (HCC) Cardiomyopathy, idiopathic (HCC) PLAN/RECOMMENDATIONS Will continue to follow the patient at 6 month intervals. Continue guideline directed medical therapy for LV dysfunction and atrial fibrillation. Erwin Velasquez MD documented in this encounter Plan of Treatment Not on file documented as of this encounter Procedures Procedure Name Priority Date/Time Associated Diagnosis Comments POCT LIPID PANEL Routine 11/24/2022 8:36 AM CDT Lipid screening documented in this encounter Results * POCT lipid panel (11/24/2022 8:36 AM CDT) Cholesterol, POC 183 mg/dL HDL, POC 47 mg/dL Triglycerides, POC 152 mg/dL LDL Cholesterol POC 106 mg/dL Chol/HDL Ratio, POC 2.3 Non-HDL Cholesterol, POC 137 mg/dL Cholesterol Total, POC 183 mg/dL Capillary blood 11/24/2022 8 :36 AM CDT Erwin Velasquez MD POINT OF CARE TEST ORDER EVY Edited Result - Final documented in this encounter Visit Diagnoses Diagnosis Lipid screening- Primary Screening for lipoid disorders Atrial fibrillation, unspecified type (HCC) Cardiomyopathy, idiopathic (HCC) Other primary cardiomyopathies documented in this encounter Historical Medications * This list may reflect changes made after this encounter. gabapentin (NEURONTIN) 100 mg capsule Take 1 capsule (100 mg total) by mouth 3 (three) times a day 10/14/2022 added in this encounter Care Teams Audio Video Tech Relationship Specialty Start Date End Date Erwin Gardner MD [address] [place] [address] PCP - General 07/01/16 Kev Dey MD [address] [place] [address] Referring Physician Nephrology 05/10/19 Amelia Rodrigez DPM [address] [place] [id number] Consulting Physician Foot and Ankle Surg 06/28/19 Meghan Cordero MD [address] [place] [address] Referring Physician Dermatology 06/02/21 Dennys Coates MD [address] [place] [address] [place] [address] Consulting Physician Dermatology 06/02/21 Erwin Velasquez MD [address] [place] [address] Consulting Physician Cardiology 06/02/21 documented as of this encounter
--- OUTSIDE RECORDS SUMMARY | 2024-04-15 05:58 | XMS_ITS | Encounter Summary ---
Author Organization [facility] Address [address] [place] [address] Care Team Providers Care Cosmetic Dentist Name Role Phone Erwin Gardner MD Primary Care Provide r Kve Dey MD Unavailable [phone] Amelia RodrigezM Unavailable [phone] Meghan Cordero MD Unavailable [phone] Dennys Coates MD Unavailable [phone] Erwin Velasquez MD Unavailable [phone] Encounter Details Date Type Department Care Team (Latest Contact Info) Description 09/07/2023 Anticoagulation Visit [facility] Cardiology [address] [place] [address] Lillian Gallo RN Atrial fibrillation (CMS/HCC) [I48.91] (Primary Dx) Social History Tobacco Use Types [...] on file 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 Gender Identity Not on file Sexual Orientation Not on file documented as of this encounter Plan of Treatment Not on file documented as of this encounter Visit Diagnoses Diagnosis Atrial fibrillation (CMS/HCC) [I48.91]- Primary documented in this encounter Care Teams Cosmetic Dentist Relationship Specialty Start Date End Date Erwin Gardner MD [address] [place] [address] PCP - General 07/01/16 Kev Dey MD [address] [place] [address] Referring Physician Nephrology 05/10/19 Amelia Rodrigez DPM [address] [facility] [facility] [address] Consulting Physician Foot and Ankle Surg 06/28/19 Meghan Cordero MD [address] [place] [address] Referring Physician Dermatology 06/02/21 Dennys Coates MD [address] [place] [address] [address] [place], [place] [id number] Consulting Physician Dermatology 06/02/21 Erwin Velasquez MD [address] [facility] [address] [place], [place] [id number] Consulting Physician Cardiology 06/02/21 documented as of this encounter
--- OUTSIDE RECORDS SUMMARY | 2024-04-15 05:58 | XMS_ITS | Encounter Summary ---
Author Organization [facility] Address [address] [place] [address] Care Team Providers Care Spanish Interpreter Name Role Phone Erwin Gardner MD Primary Care Provide r Kev Dey MD Unavailable [phone] Amelia RodrigezM Unavailable [phone] Meghan Cordero MD Unavailable [phone] Dennys Coates MD Unavailable [phone] Erwin Velasquez MD Unavailable [phone] Encounter Details Date Type Department Care Team (Latest Contact Info) Description 07/07/2023 Anticoagulation Visit [facility] Cardiology [address] [place] [address] Leigh Garcia RN Atrial fibrillation (CMS/HCC) [I48.91] (Primary Dx) [...] on file 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 Gender Identity Not on file Sexual Orientation Not on file documented as of this encounter Plan of Treatment Not on file documented as of this encounter Visit Diagnoses Diagnosis Atrial fibrillation (CMS/HCC) [I48.91]- Primary documented in this encounter Care Teams Spanish Interpreter Relationship Specialty Start Date End Date Erwin Gardner MD [address] [place] [address] PCP - General 07/01/16 Kev Dey MD [address] [place] [address] Referring Physician Nephrology 05/10/19 Amelia Rodrigez DPM [address] [place] [address] Consulting Physician Foot and Ankle Surg 06/28/19 Meghan Cordero MD [address] [place] [address] Referring Physician Dermatology 06/02/21 Dennys Coates MD [address] [place] [address] [address] [place], [place] [id number] Consulting Physician Dermatology 06/02/21 Erwin Velasquez MD [address] [facility] [address] [place], [place] [id number] Consulting Physician Cardiology 06/02/21 documented as of this encounter
--- OUTSIDE RECORDS SUMMARY | 2024-04-15 05:58 | XMS_ITS | Encounter Summary ---
Author Organization [facility] Address [address] [place] [address] Care Team Providers Care Information Systems Operator Name Role Phone Erwin Gardner MD Primary Care Provide r Kev Dey MD Unavailable [phone] Amelia RodrigezM Unavailable [phone] Meghan Cordero MD Unavailable [phone] Dennys Coates MD Unavailable [phone] Erwin Velasquez MD Unavailable [phone] Encounter Details Date Type Department Care Team (Late st Contact Info) Description 09/15/2021 Telephone [facility] Cardiology [address] [place] [address] Erwin Velasquez MD [address] [place] [address] Social History Tobacco Use Types Packs/Day Years Used Date Smoking Tobacco: Never Smokeless Tobacco: Never Alcohol Use Standard Drinks/Week Comments No 0 (1 standard drink = 0.6 oz pur e alcohol) AUDIT-C Answer Date Recorded Q1: How often do you have a drink containing alc ohol? Never 06/24/2021 Average Number of Drinks Not on file 03/24/2 022 Q3: How often do you have si x or more drinks on one occasion? 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 Pt aware. * Telephone Encounter - Myrna Rahman - 09/15/2021 10:08 AM CDT Pt requesting INR order be sent to [facility] in [place]. Contact: documented in this encounter Plan of Treatment Scheduled Orders Name Type Priority Associated Diagnoses Orde r Schedule Protime-INR Lab Routine Atrial fibrillation, unspecified type (HCC) 52 Occurrences starting 09/15/2021 until 09/15/2022, 10 completed documented as of this encounter Procedures Procedure Name Priority Date/Time Associated Diagnosis Comments PROTIME-INR Routine 09/14/2022 7:12 AM CDT Atrial fibrillation, unspecified type (HCC) PROTIME-INR Routine 08/02/2022 7:29 AM CDT Atrial fibrillation, unspecified type (HCC) PROTIME-INR Routine 07/08/2022 12:24 PM CDT Atrial fibrillation, unspecified type (HCC) PROTIME-INR Routine 06/08/2022 6:57 AM GEOTHERMAL PRODUCTION MANAGER Atrial fibrillation, unspecified type (HCC) PROTIME-INR Routine 04/14/2022 8:23 AM GEOTHERMAL PRODUCTION MANAGER Atrial fibrillation, unspecified type (HCC) PROTIME-INR Routine 01/26/2022 6:29 AM CDT Atrial fibrillation, unspecified type (HCC) PROTIME-INR Routine 11/30/2021 8:08 AM CDT Atrial fibrillation, unspecified type (HCC) PROTIME-INR Routine 11/09/2021 8:54 AM CDT Atrial fibrillation, unspecified type (HCC) PROTIME-INR Routine 10/20/2021 6:18 AM CDT Atrial fibrillation, unspecified type (HCC) PROTIME-INR Routine 09/17/2021 10:32 AM CDT Atrial fibrillation, unspecified type (HCC) documented in this encounter Results * (ABNORMAL) Protime-INR (09/14/2022 7:12 AM CDT) INR 2.6(H) [facility] Comment: Reference Range ? 0.9-1.1 Moderate-intensity Warfarin Therapy 2.0-3.0 Higher-intensity Warfarin Therapy ?? 3.0-4.0 PT 25.5(H) 9.0 - 11.5 sec [facility] Comment: For additional information, please refer to http://education.niiu/faq/WAY426 (This link is being provided for informational/ educational purposes only.) Blood specimen (specimen) 09/14/2022 7:12 AM CDT 09/14/2022 7:13 AM CDT us Erwin Velasquez MD LAB BLOOD ORDERABLES Fin al Result [facility] [address] [place] [address] * (ABNORMAL) Protime-INR (08/02/2022 7:29 AM CDT) INR 2.1(H) [facility] Comment: Reference Range ? 0.9-1.1 Moderate-intensity Warfarin Therapy 2.0-3.0 Higher-intensity Warfarin Therapy ?? 3.0-4.0 PT 21.4(H) 9.0 - 11.5 sec [facility] Comment: For additional information, please refer to http://KeVita/faq/ATM914 (This link is being provided for informational/ educational purposes only.) Blood specimen (specimen) 08/02/2022 7:29 AM CDT 08/02/2022 7:30 AM CDT Erwin Velasquez MD LAB BLOOD ORDERABLES Fin al Result Performing Organization Address [facility] de Phone Number [facility] [address] [place] [address] * (ABNORMAL) Protime-INR (07/08/2022 12:24 PM CDT) INR 1.8(H) [facility] Comment: Reference Range ? 0.9-1.1 Moderate-intensity Warfarin Therapy 2.0-3.0 Higher-intensity Warfarin Therapy ?? 3.0-4.0 PT 17.6(H) 9.0 - 11.5 sec [facility] Comment: For additional information, please refer to http://KeVita/faq/CGR722 (This link is being provided for informational/ educational purposes only.) Blood specimen (specimen) 07/08/2022 12:24 PM CDT 07/08/2022 12:24 PM CDT Erwin Velasquez MD LAB BLOOD ORDERABLES Fin al Result Performing Organization Address [facility] de Phone Number [facility] [address] [place] [address] * (ABNORMAL) Protime-INR (06/08/2022 6:57 AM GEOTHERMAL PRODUCTION MANAGER) INR 2.2(H) [facility] Comment: Reference Range ? 0.9-1.1 Moderate-intensity Warfarin Therapy 2.0-3.0 Higher-intensity Warfarin Therapy ?? 3.0-4.0 PT 20.8(H) 9.0 - 11.5 sec [facility] Comment: For additional information, please refer to http://Hotelogix.niiu/faq/EFT268 (This link is being provided for informational/ educational purposes only.) Blood specimen (specimen) 06/08/2022 6:57 AM GEOTHERMAL PRODUCTION MANAGER 06/08/2022 6:58 AM GEOTHERMAL PRODUCTION MANAGER Erwin Velasquez MD LAB BLOOD ORDERABLES Fin al Result Performing Organization Address [facility] Phone Number [facility] [address] [place] [address] * (ABNORMAL) Protime-INR (04/14/2022 8:23 AM GEOTHERMAL PRODUCTION MANAGER) INR 2.2(H) [facility] Comment: Reference Range ? 0.9-1.1 Moderate-intensity Warfarin Therapy 2.0-3.0 Higher-intensity Warfarin Therapy ?? 3.0-4.0 PT 21.5(H) 9.0 - 11.5 sec [facility] Comment: For additional information, please refer to http://Hotelogix.niiu/faq/ACW319 (This link is being provided for informational/ educational purposes only.) Blood specimen (specimen) 04/14/2022 8:23 AM GEOTHERMAL PRODUCTION MANAGER 04/14/2022 8:24 AM GEOTHERMAL PRODUCTION MANAGER Narrative [facility] - 04/14/2022 3:53 PM GEOTHERMAL PRODUCTION MANAGER NO DRAW FEE 2ND ORDER FASTING:YES FASTING: YES Erwin Velasquez MD LAB BLOOD ORDERABLES Fin al Result Performing Organization Address City/[facility] de Phone Number [facility] [address] [place] [address] * (ABNORMAL) Protime-INR (01/26/2022 6:29 AM CDT) INR 2.7(H) [facility] Comment: Reference Range ? 0.9-1.1 Moderate-intensity Warfarin Therapy 2.0-3.0 Higher-intensity Warfarin Therapy ?? 3.0-4.0 PT 25.1(H) 9.0 - 11.5 sec [facility] Comment: For additional information, please refer to http://Hotelogix.niiu/faq/FLJ760 (This link is being provided for informational/ educational purposes only.) Blood specimen (specimen) 01/26/2022 6:29 AM CDT 01/26/2022 6:30 AM CDT Narrative [facility] - 01/26/2022 4:39 PM CDT FASTING:YES FASTING: YES Erwin Velasquez MD LAB BLOOD ORDERABLES Fin al Result Performing Organization Address [facility] de Phone Number [facility] [address] [place] [address] * (ABNORMAL) Protime-INR (11/30/2021 8:08 AM CDT) INR 2.2(H) [facility] Comment: Reference Range ? 0.9-1.1 Moderate-intensity Warfarin Therapy 2.0-3.0 Higher-intensity Warfarin Therapy ?? 3.0-4.0 PT 21.4(H) 9.0 - 11.5 sec [facility] Comment: For additional information, please refer to http://Hotelogix.niiu/faq/PNK239 (This link is being provided for informational/ educational purposes only.) Blood specimen (specimen) 11/30/2021 8:08 AM CDT 11/30/2021 8:10 AM CDT Erwin Velasquez MD LAB BLOOD ORDERABLES Fin al Result Performing Organization Address [facility] de Phone Number [facility] [address] [place] [address] * (ABNORMAL) Protime-INR (11/09/2021 8:54 AM CDT) INR 3.0(H) [facility] Comment: Reference Range ? 0.9-1.1 Moderate-intensity Warfarin Therapy 2.0-3.0 Higher-intensity Warfarin Therapy ?? 3.0-4.0 PT 27.6(H) 9.0 - 11.5 sec [facility] Comment: For additional information, please refer to http://KeVita/faq/RAB320 (This link is being provided for informational/ educational purposes only.) Blood specimen (specimen) 11/09/2021 8:54 AM CDT 11/09/2021 8:54 AM CDT Erwin Velasquez MD LAB BLOOD ORDERABLES Fin al Result Performing Organization Address [facility] de Phone Number [facility] [address] [place] [address] * (ABNORMAL) Protime-INR (10/20/2021 6:18 AM CDT) INR 4.7(H) [facility] Comment: Reference Range ? 0.9-1.1 Moderate-intensity Warfarin Therapy 2.0-3.0 Higher-intensity Warfarin Therapy ?? 3.0-4.0 PT 41.9(H) 9.0 - 11.5 sec [facility] Comment: For additional information, please refer to http://KeVita/faq/VRX894 (This link is being provided for informational/ educational purposes only.) Blood specimen (specimen) 10/20/2021 6:18 AM CDT 10/20/2021 6:19 AM CDT Erwin Velasquez MD LAB BLOOD ORDERABLES Fin al Result Performing Organization Address [facility] de Phone Number [facility] [address] [place] [address] * (ABNORMAL) Protime-INR (09/17/2021 10:32 AM CDT) INR 3.6(H) [facility] Comment: Reference Range ? 0.9-1.1 Moderate-intensity Warfarin Therapy 2.0-3.0 Higher-intensity Warfarin Therapy ?? 3.0-4.0 PT 33.2(H) 9.0 - 11.5 sec [facility] Comment: For additional information, please refer to http://Hotelogix.niiu/faq/LNC114 (This link is being provided for informational/ educational purposes only.) Blood specimen (specimen) 09/17/2021 10:32 AM CDT 09/17/2021 10:34 AM CDT Erwin Velasquez MD LAB BLOOD ORDERABLES Fin al Result Performing Organization Address [facility] de Phone Number [facility] [address] [place] [address] documented in this encounter Visit Diagnoses Diagnosis Atrial fibrillation, unspecified type (HCC)- Primary documented in this encounter Care Teams Information Systems Operator Relationship Specialty Start Date End Date Erwin Gardner MD [address] [place], [place] [id number] PCP - General 07/01/16 Kev Dey MD [address] [place] [address] Referring Physician Nephrology 05/10/19 Amelia Rodrigez DPM [address] [place] [address] Consulting Physician Foot and Ankle Surg 06/28/19 Meghan Cordero MD [address] [address] [place] [address] Referring Physician Dermatology 06/02/21 Dennys Coates MD [address] [place] [address] [place] [address] Consulting Physician Dermatology 06/02/21 Erwin Velasquez MD [address] [address] [place] [address] Consulting Physician Cardiology 06/02/21 documented as of this encounter
--- OUTSIDE RECORDS SUMMARY | 2024-04-15 05:58 | XMS_ITS | Encounter Summary ---
Author Organization [facility] Healthcare Address [address] [place] [address] Care Team Providers Care Welding Manager Name Role Phone Erwin Gardner MD Primary Care Provide r Kev Dey MD Unavailable [phone] Amelia Rodrigez DPM Unavailable [phone] Meghan Cordero MD Unavailable [phone] Dennys Coates MD Unavailable [phone] Erwin Velasquez MD Unavailable [phone] Encounter Details Date Type Department Care Team (Late st Contact Info) Description 07/06/2021 2:30 PM CDT - 07/06/2021 4:[address] [facility] Operating Room [facility] [address] [place] [id number] Renaldo Eisenberg MD [address] [id number] RIGHT UPPER EYELID RECONSTRUCTION Surgery Details Date/Time Status Location OR Service Patient Class Case Cl ass Case Type Trauma Case? 07/06/2021 2:30 PM Posted [facility] CAM OR POD 4 N Ophthalmology Outpatient Elective Panel 1 Procedure LRB Anes Op Region Wound Class Comments RIGHT UPPER EYELID RECONSTRUCTION Right Monitor Anesthesia Care Eye Class I - Clean GRAFT SKIN FULL THICKNESS TAKEN FROM UPPER LEFT EYE Left Monitor Anesthesia Care Eye Class I - Clean Surgeon Surgeon Role Service Panel Renaldo Eisenberg MD Primary Ophthalmology 1 Missy Canada MD Resident - Assisting Ophthalmolog y 1 Carli Plaza MD Fellow Ophthalmology 1 documented in this encounter Social History Tobacco Use Types Packs/Day Years [...] on file 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 Gender Identity Not on file Sexual Orientation Not on file documented as of this encounter Last Filed Vital Signs Vital Sign Reading Time Taken Comments Blood Pressure - - Pulse - - Temperature 36.1 ??C (97 ??F) 07/06/2021 1:56 PM CDT Respiratory Rate - - Oxygen Saturation - - Inhaled Oxygen Concentration - - Weight 142.9 kg (315 lb) 06/24/2021 2:35 PM CDT Height 188 cm (6' 2 ) 06/24/2021 2:35 PM CDT Body Mass Index 40.44 06/24/2021 2:35 PM CDT documented in this encounter Discharge Instructions * Discharge Instructions* Renaldo Eisenberg MD - 07/06/2021 6:16 PM CDT Instructions: - Avoid physical exertion and exercise. No yard or garden work. - Do not use make-up or cosmetic products on face. - Do not use contact lens in the operated eye, unless instructed to do so. - You may wear your glasses, as long as the nose piece does not push on the surgical area. - Do not remove the packing that is sutured into place. - If you have a packing over a skin graft, you may gently get it wet once a day, and on the morningof your first follow-up appointment. - You may shower once a day starting on the day after surgery. Your incision and sutures can get gently wet in the shower once a day. Cold Pack: Use cold pack while awake for the first 48 hours. Then stop the cold pack and use a wet and warm compress for 5 minutes three times a day prior to applying the ointment. Medications: Pain: It is normal to have mild tenderness, aching, burning pain. Do not use aspirin or anti-inflammatory medications (such as ibuprofen) for pain. You may use Acetaminophen (500mg): 1 or 2 tablets every 6 hours. Do not take more than 6 tablets per day. Antibiotics: Keflex 4 times a day. Erythromycin ointment: Place the ointment on all incisions (sutures) and around edge of packing 3 times a day starting dayof surgery. Eye Medications: Continue all eye medications (drops, ointments) you were using before surgery, unless instructed otherwise by your doctor. Blood thinners: Resume warfarin on: Monday. Please call the office or after-hours exchange ([phone]) if you experience: - Severe pain (mild discomfort is common). - Persistent bleeding unrelieved with gentle pressure (it is normal to have an occasional drop of blood coming from the incision or the eye for the first week after surgery). - Visual loss (mild blurring or difficulty reading is common after surgery, especially if there is ointment in your eye). * Attachments The following attachments cannot be sent through Care Everywhere. * [facility] PATHWAY TO EXCELLENT CARE AFTER SURGERY documented in this encounter Medications at Time of Discharge acetaminophen (TYLENOL) 500 mg tabletIndications: Arthritic Pain,Back Pain Take 2 tablets (1,000 mg total) by mouth nightly cephalexin (Keflex) 500 mg capsule Take 1 capsule (500 mg total) by mouth 4 (four) times a day for 7 days 28 capsule 07/06/2021 2 erythromycin (ILOTYCIN) ophthalmic ointment Apply to eyelid incisions 3 times a day[address] Only place ointment in the eyes if they are irritated. 3.5 g 3 07/06/2021 fish oil-dha-epa 1,200-144-216 mg capsule Take 1 capsule by mouth 2 (two) times a day insulin NPH (HumuLIN N, NovoLIN N) 100 unit/mL vial for injectionIndicatio ns:type 2 diabetes mellitus Inject 60 Units under the skin 2 (two) times a day insulin regular (HumuLIN R, NovoLIN R) 100 unit/mL injectionIndicatio ns:type 2 diabetes mellitus Inject under the skin 3 (three) times a day before meals Sliding scale triamcinolone (KENALOG) 0.1 % cream Apply topically as needed 05/29/2021 ULTICARE 1 mL 30 gauge x 1/2 syringe 05/24/2017 warfarin (COUMADIN) 2.5 mg tabletIndications: atrial fibrillation Take 1 tablet (2.5 mg total) by mouth once a week Monday atorvastatin (LIPITOR) 20 mg tablet Take 1 tablet (20 mg total) by mouth daily 90 tablet 3 12/16/2020 2 carvediloL (COREG) 25 mg tabletIndications: hypertension Take 12.5 mg by mouth 2 (two) times a day with meals 2 fenofibrate (TRIGLIDE) 160 mg tablet TAKE 1 TABLET BY MOUTH EVERY DAY 90 tablet 3 05/24/2021 3 furosemide (LASIX) 80 mg tablet TAKE 1.5 TABLETS (120 MG TOTAL) BY MOUTH DAILY 135 tablet 1 01/21/2021 2 Klor-Con M20 20 mEq CR tablet TAKE 1 TABLET BY MOUTH EVERY DAY 90 tablet 3 05/24/2021 3 losartan (COZAAR) 50 mg tablet TAKE 1 TABLET BY MOUTH EVERY DAY 90 tablet 3 05/17/2021 2 spironolactone (ALDACTONE) 50 mg tablet TAKE 1 TABLET BY MOUTH EVERY DAY 90 tablet 06/16/2021 2 warfarin (COUMADIN) 5 mg tablet TAKE 1 TABLET BY MOUTH EVERY DAY 90 tablet 1 03/16/2021 2 documented as of this encounter Ordered Prescriptions Prescription Sig Dispense Quantity Refills Last Filled Start Date End Date cephalexin (Keflex) 500 mg capsule Take 1 capsule (500 mg total) by mouth 4 (four) times a day for 7 days 28 capsule 07/06/2021 2 erythromycin (ILOTYCIN) ophthalmic ointment Apply to eyelid incisions 3 times a day. Only place ointment in the eyes if they are irritated. 3.5 g 3 07/06/2021 documented in this encounter Discharge Disposition Disposition Code Departure Means Destination Discharge to home or self care documented in this encounter H&P Notes * Missy Canada MD - 07/06/2021 2:03 PM CDT I have reviewed the H&P, examined the patient, and endorse the findings as written. Plan of Care : Based on the above findings, I consider Erwin Isaac to be an acceptable risk for : Procedure(s): RIGHT UPPER EYELID RECONSTRUCTION GRAFT SKIN FULL THICKNESS Cosigned by Renaldo Eisenberg MD at 07/06/2021 2:04 PM CDT Source Note - Renaldo Eisenberg MD - 06/28/2021 7:50 AM CDT Images from the original note were not included. Date of Visit: 06/02/2021 ?? Patient Name: Erwin Isaac : 1950 Gender: male ? Primary Care Provider: Erwin Gardner MD Referring Provider: Megahn Cordero MD ?? History: This 71 y.o. year old male presents for evaluation of a lesion of the right upper eyelid (RUL) that has been present since last Fall. A biopsy has been performed by his warehouse consultant (basal cell) several weeks ago. No history of skin malignancy. ?? On warfarin for a fib, cardiomyopathy, CHF. He has been able to hold it in the past. ?? Has had 3 covid vaccines. ?? Examination: Base Eye Exam ?? Visual Acuity (Snellen - Linear) ?? Right Left ?? Dist cc 20/25 20/20 ?? Correction: Glasses ? Tonometry (Tonopen, 8:35 AM) ?? Right Left ?? Pressure 16 16 ? Pupils ?? Dark Light Shape React APD ?? Right 4.5 3.5 Round Brisk None ?? Left 4.5 3.5 Round Brisk None ? Visual Sharma ?? Left Right ? Full Full ? Extraocular Movement ?? Right Left ? Full, Ortho Full, Ortho ? Neuro/Psych ?? Oriented x3: Yes ?? Mood/Affect: Normal ? Impression: Basal cell carcinoma of the right upper eyelid. We have recommended the lesion be excised with Mohs surgery, followed by reconstruction. We discussed reconstructive techniques including the possible need for flaps and grafts. We have also discussed the risks of surgery including but notlimited to poor graft appearance, scarring, bleeding, infection, eyelid malposition, tumor recurrence, and possible need for additional treatment. They are aware of the need for sun protection and routine dermatologic exams. We will coordinate therapy with Mohs Surgery. ? I have personally examined the patient, participated in all aspects of their care, and formulated the treatment plan. ? Allergies: Patient has no known allergies. Medications: No current facility-administered medications for this encounter. Current Outpatient Medications: ??? acetaminophen (TYLENOL) 500 mg tablet, Take 1,000 mg by mouth nightly, Disp: , Rfl: ??? atorvastatin (LIPITOR) 20 mg tablet, Take 1 tablet (20 mg total) by mouth daily (Patient takingdifferently: Take 20 mg by mouth nightly), Disp: 90 tablet, Rfl: 3 ??? carvediloL (COREG) 25 mg tablet, Take 12.5 mg by mouth 2 (two) times a day with meals, Disp: , Rfl: ??? fenofibrate (TRIGLIDE) 160 mg tablet, TAKE 1 TABLET BY MOUTH EVERY DAY (Patient taking differently: Take 160 mg by mouth j2ee android developer before breakfast), Disp: 90 tablet, Rfl: 3 ??? fish oil-dha-epa 1,200-144-216 mg capsule, Take 1 capsule by mouth 2 (two) times a day, Disp: ,Rfl: ??? furosemide (LASIX) 80 mg tablet, TAKE 1.5 TABLETS (120 MG TOTAL) BY MOUTH DAILY (Patient takingdifferently: Take 120 mg by mouth j2ee android developer before breakfast), Disp: 135 tablet, Rfl: 1 ??? insulin NPH (HumuLIN N, NovoLIN N) 100 unit/mL vial for injection, Inject 60 Units under the skin 2 (two) times a day, Disp: , Rfl: ??? insulin regular (HumuLIN R, NovoLIN R) 100 unit/mL injection, Inject under the skin 3 (three) times a day before meals Sliding scale, Disp: , Rfl: ??? Klor-Con M20 20 mEq CR tablet, TAKE 1 TABLET BY MOUTH EVERY DAY (Patient taking differently: Take 1 mEq by mouth j2ee android developer before breakfast), Disp: 90 tablet, Rfl: 3 ??? losartan (COZAAR) 50 mg tablet, TAKE 1 TABLET BY MOUTH EVERY DAY (Patient taking differently: Take 50 mg by mouth j2ee android developer before breakfast), Disp: 90 tablet, Rfl: 3 ??? spironolactone (ALDACTONE) 50 mg tablet, TAKE 1 TABLET BY MOUTH EVERY DAY (Patient taking differently: Take 50 mg by mouth j2ee android developer before breakfast), Disp: 90 tablet, Rfl: 0 ??? triamcinolone (KENALOG) 0.1 % cream, Apply topically as needed, Disp: , Rfl: ??? warfarin (COUMADIN) 2.5 mg tablet, Take 2.5 mg by mouth once a week Monday, Disp: , Rfl: ??? warfarin (COUMADIN) 5 mg tablet, TAKE 1 TABLET BY MOUTH EVERY DAY (Patient taking differently: Take 5 mg by mouth 6 days a week), Disp: 90 tablet, Rfl: 1 ??? ULTICARE 1 mL 30 gauge x 1/2 syringe, , Disp: , Rfl: Past Surgical History: Procedure Laterality Date ??? BIOPSY 2018 bone biopsy ??? CARDIAC CATHETERIZATION 06/[address] Velasquez's notes ??? CATARACT EXTRACTION Bilateral 2015 ??? US GUIDED BIOPSY RENAL N/A 02/03/2021 Past Medical History: Diagnosis Date ??? Adiposity Obesity ??? Atrial fibrillation (CMS/HCC) (HCC) afib ??? CHF (congestive heart failure) (CMS/HCC) (HCC) ??? Chronic kidney disease Stage III ??? Hyperlipidemia ??? Hypertension Hypertension ??? Neuropathy (CMS/HCC) Feet ??? Type 2 diabetes mellitus (HCC) Social History Socioeconomic History ??? Marital status: Tobacco Use ??? Smoking status: Never Smoker ??? Smokeless tobacco: Never Used Vaping Use ??? Vaping Use: Never used Substance and Sexual Activity ??? Alcohol use: No ??? Drug use: No ??? Sexual activity: Defer * Renaldo Eisenberg MD - 06/28/2021 7:50 AM CDT Images from the original note were not included. Date of Visit: 06/02/2021 ?? Patient Name: Erwin Isaac : 1950 Gender: male ? Primary Care Provider: Erwin Gardner MD Referring Provider: Meghan Cordero MD ?? History: This 71 y.o. year old male presents for evaluation of a lesion of the right upper eyelid (RUL) that has been present since last Fall. A biopsy has been performed by his warehouse consultant (basal cell) several weeks ago. No history of skin malignancy. ?? On warfarin for a fib, cardiomyopathy, CHF. He has been able to hold it in the past. ?? Has had 3 covid vaccines. ?? Examination: Base Eye Exam ?? Visual Acuity (Snellen - Linear) ?? Right Left ?? Dist cc 20/25 20/20 ?? Correction: Glasses ? Tonometry (Tonopen, 8:35 AM) ?? Right Left ?? Pressure 16 16 ? Pupils ?? Dark Light Shape React APD ?? Right 4.5 3.5 Round Brisk None ?? Left 4.5 3.5 Round Brisk None ? Visual Sharma ?? Left Right ? Full Full ? Extraocular Movement ?? Right Left ? Full, Ortho Full, Ortho ? Neuro/Psych ?? Oriented x3: Yes ?? Mood/Affect: Normal ? Impression: Basal cell carcinoma of the right upper eyelid. We have recommended the lesion be excised with Mohs surgery, followed by reconstruction. We discussed reconstructive techniques including the possible need for flaps and grafts. We have also discussed the risks of surgery including but notlimited to poor graft appearance, scarring, bleeding, infection, eyelid malposition, tumor recurrence, and possible need for additional treatment. They are aware of the need for sun protection and routine dermatologic exams. We will coordinate therapy with Mohs Surgery. ? I have personally examined the patient, participated in all aspects of their care, and formulated the treatment plan. ? Allergies: Patient has no known allergies. Medications: No current facility-administered medications for this encounter. Current Outpatient Medications: ??? acetaminophen (TYLENOL) 500 mg tablet, Take 1,000 mg by mouth nightly, Disp: , Rfl: ??? atorvastatin (LIPITOR) 20 mg tablet, Take 1 tablet (20 mg total) by mouth daily (Patient takingdifferently: Take 20 mg by mouth nightly), Disp: 90 tablet, Rfl: 3 ??? carvediloL (COREG) 25 mg tablet, Take 12.5 mg by mouth 2 (two) times a day with meals, Disp: , Rfl: ??? fenofibrate (TRIGLIDE) 160 mg tablet, TAKE 1 TABLET BY MOUTH EVERY DAY (Patient taking differently: Take 160 mg by mouth j2ee android developer before breakfast), Disp: 90 tablet, Rfl: 3 ??? fish oil-dha-epa 1,200-144-216 mg capsule, Take 1 capsule by mouth 2 (two) times a day, Disp: ,Rfl: ??? furosemide (LASIX) 80 mg tablet, TAKE 1.5 TABLETS (120 MG TOTAL) BY MOUTH DAILY (Patient takingdifferently: Take 120 mg by mouth j2ee android developer before breakfast), Disp: 135 tablet, Rfl: 1 ??? insulin NPH (HumuLIN N, NovoLIN N) 100 unit/mL vial for injection, Inject 60 Units under the skin 2 (two) times a day, Disp: , Rfl: ??? insulin regular (HumuLIN R, NovoLIN R) 100 unit/mL injection, Inject under the skin 3 (three) times a day before meals Sliding scale, Disp: , Rfl: ??? Klor-Con M20 20 mEq CR tablet, TAKE 1 TABLET BY MOUTH EVERY DAY (Patient taking differently: Take 1 mEq by mouth j2ee android developer before breakfast), Disp: 90 tablet, Rfl: 3 ??? losartan (COZAAR) 50 mg tablet, TAKE 1 TABLET BY MOUTH EVERY DAY (Patient taking differently: Take 50 mg by mouth j2ee android developer before breakfast), Disp: 90 tablet, Rfl: 3 ??? spironolactone (ALDACTONE) 50 mg tablet, TAKE 1 TABLET BY MOUTH EVERY DAY (Patient taking differently: Take 50 mg by mouth j2ee android developer before breakfast), Disp: 90 tablet, Rfl: 0 ??? triamcinolone (KENALOG) 0.1 % cream, Apply topically as needed, Disp: , Rfl: ??? warfarin (COUMADIN) 2.5 mg tablet, Take 2.5 mg by mouth once a week Monday, Disp: , Rfl: ??? warfarin (COUMADIN) 5 mg tablet, TAKE 1 TABLET BY MOUTH EVERY DAY (Patient taking differently: Take 5 mg by mouth 6 days a week), Disp: 90 tablet, Rfl: 1 ??? ULTICARE 1 mL 30 gauge x 1/2 syringe, , Disp: , Rfl: Past Surgical History: Procedure Laterality Date ??? BIOPSY 2018 bone biopsy ??? CARDIAC CATHETERIZATION 06/[address] Velasquez's notes ??? CATARACT EXTRACTION Bilateral 2015 ??? US GUIDED BIOPSY RENAL N/A 02/03/2021 Past Medical History: Diagnosis Date ??? Adiposity Obesity ??? Atrial fibrillation (CMS/HCC) (HCC) afib ??? CHF (congestive heart failure) (CMS/HCC) (HCC) ??? Chronic kidney disease Stage III ??? Hyperlipidemia ??? Hypertension Hypertension ??? Neuropathy (CMS/HCC) Feet ??? Type 2 diabetes mellitus (HCC) Social History Socioeconomic History ??? Marital status: Tobacco Use ??? Smoking status: Never Smoker ??? Smokeless tobacco: Never Used Vaping Use ??? Vaping Use: Never used Substance and Sexual Activity ??? Alcohol use: No ??? Drug use: No ??? Sexual activity: Defer documented in this encounter Miscellaneous Notes * Op Note - Renaldo Eisenberg MD - 07/06/2021 4:23 PM CDT Operative Note Attending Surgeon: Renaldo Eisenberg MD Surgeon(s): Renaldo Esienberg MD Kiser, Kelly Ann, MD Ho, Carli Monique MD Surgical Team: Instructor Physical: Nuvia Crisostomo RN; Jeannine Menendez RN; Shea Menjivar RN Scrub: Imelda Bah RN DATE OF SURGERY : 07/06/2021 Preoperative Diagnosis: Basal cell carcinoma right upper eyelid Basal carcinoma right medial canthus-nose Postoperative Diagnosis: Basal cell carcinoma right upper eyelid Basal carcinoma right medial canthus-nose Procedure: Reconstruction right upper eyelid with advancement hatchet flap. Reconstruction right medial canthus-nose with full-thickness skin graft. Operative Findings The patient was positioned on the operative table. A time-out was performed. A corneal protector was inserted after infiltrative anesthesia was administered to the right upper eyelid, right medial canthus-nose and left upper eyelid. The entire face was prepped and draped. There was a 21 x 20 mm defect involving the medial right upper eyelid. The adjacent canthus and nose were also involved with the defect. A initially we created a hatchet flap from tissue lateral to the defect via an incision in the eyelid crease. The superiorly based flap was developed by undermining the skin and tail which was position the lateral canthus. Cautery was applied for hemostasis. The flap was then advanced medially closing much of the eyelid portion of the defect where was fixated with 7 0 chromic sutures. The tail of the flap was excised an additional wound closure completed. We undermined the skin of thelateral nose which was then advanced toward the canthus and fixated with 7 0 chromic. There was a residual 12 x 15 mm defect of the medial canthus and nose. A full-thickness skin graft was harvested from the left upper eyelid via a blepharoplasty technique and was sutured into the recipient bed in 2 pieces with 7 0 chromic sutures. The donor site was cauterized and closed with a running 7 0 Prolene. A bolster was fashioned from Telfa dressing and fixated over the graft with mattress 5 0 Prolene. He tolerated the procedure well and was delivered recovery in stable condition. Estimated Blood Loss: Minimal Specimens: No specimen collected in procedure Implants: Nothing was implanted during the procedure Complications: none Condition on Discharge from the operating room was stable. Renaldo Eisenberg MD Date: 07/06/2021 Time: 6:18 PM Teaching Attestation: I was present and directly participated in the entire procedure (including opening and closing). * Perioperative Nursing Note - Rufina Ureña RN - 06/24/2021 2:45 PM CDT [facility] Perioperative Nursing Note Telephone Preoperative Evaluation ([facility]) - TELEPHONE ONLY, NO PHYSICAL EXAM Date: 06/24/21 Vitals: 06/24/21 1435 Weight: (!) 142.9 kg (315 lb) Height: 188 cm (6' 2 ) CHEST CIRCUMFERENCE: n/a Social History Tobacco Use Smoking Status Never Smoker Smokeless Tobacco Never Used Substance and Sexual Activity Drug Use No Alcohol Use How often do you have a drink containing alcohol?: Never How often do you have six or more drinks on one occasion?: Never Outpatient Medications Marked as Taking for the 07/06/21 encounter (Hospital Encounter) Medication Sig Dispense Refill ??? acetaminophen (TYLENOL) 500 mg tablet Take 1,000 mg by mouth nightly ??? atorvastatin (LIPITOR) 20 mg tablet Take 1 tablet (20 mg total) by mouth daily (Patient taking differently: Take 20 mg by mouth nightly) 90 tablet 3 ??? carvediloL (COREG) 25 mg tablet Take 12.5 mg by mouth 2 (two) times a day with meals ??? fenofibrate (TRIGLIDE) 160 mg tablet TAKE 1 TABLET BY MOUTH EVERY DAY (Patient taking differently: Take 160 mg by mouth j2ee android developer before breakfast) 90 tablet 3 ??? fish oil-dha-epa 1,200-144-216 mg capsule Take 1 capsule by mouth 2 (two) times a day ??? furosemide (LASIX) 80 mg tablet TAKE 1.5 TABLETS (120 MG TOTAL) BY MOUTH DAILY (Patient taking differently: Take 120 mg by mouth j2ee android developer before breakfast) 135 tablet 1 ??? insulin NPH (HumuLIN N, NovoLIN N) 100 unit/mL vial for injection Inject 60 Units under the skin 2 (two) times a day ??? insulin regular (HumuLIN R, NovoLIN R) 100 unit/mL injection Inject under the skin 3 (three) times a day before meals Sliding scale ??? Klor-Con M20 20 mEq CR tablet TAKE 1 TABLET BY MOUTH EVERY DAY (Patient taking differently: Take 1 mEq by mouth j2ee android developer before breakfast) 90 tablet 3 ??? losartan (COZAAR) 50 mg tablet TAKE 1 TABLET BY MOUTH EVERY DAY (Patient taking differently: Take 50 mg by mouth j2ee android developer before breakfast) 90 tablet 3 ??? spironolactone (ALDACTONE) 50 mg tablet TAKE 1 TABLET BY MOUTH EVERY DAY (Patient taking differently: Take 50 mg by mouth j2ee android developer before breakfast) 90 tablet 0 ??? triamcinolone (KENALOG) 0.1 % cream Apply topically as needed ??? warfarin (COUMADIN) 2.5 mg tablet Take 2.5 mg by mouth once a week Monday ??? warfarin (COUMADIN) 5 mg tablet TAKE 1 TABLET BY MOUTH EVERY DAY (Patient taking differently: Take 5 mg by mouth 6 days a week) 90 tablet 1 Implants No active implants to display in this view. SKIN Piercings Remaining: No Wound (LDAs) Type of Wound (LDA): (denies) SCREENINGS Marcos index score: 95 NUTRITION PATIENT CARE PLANNING Advance Directives (For Healthcare) Advance Directive: Patient does not have advance directive Assistive Devices/DME: Dentures partial, Eyeglasses Hearing - Right Ear: Functional Hearing - Left Ear: Functional Discharge Planning Type of Residence: Private residence Living Arrangements: Alone Support Systems: Friends/neighbors Patient expects to be discharged to:: Private residence COVID Screening Covid-19 Screening In the last 10 days have you had any new or worsening cough, SOB, fever (>=100F), body aches, loss of taste or smell, diarrhea or vomiting, or sore throat?: No Have you had close contact with anyone with confirmed or suspected COVID-19 in the past 10 days?: No Do you live in or work in a congregate living facility (ex. assisted living/penitentiary facility, [facility], assisted)?: No Have you tested positive for COVID-19 within the last 10 days?: No Have you previously tested positive for COVID-19? No Have you had a COVID -19 exposure within the past 14 days? No Were both or all people exposed wearing masks (cloth, isolation, surgical or N95)? N/A TESTING PLAN-See Instructions for plan We recommend you Self-Isolate after COVID Testing: Stay at home, if possible until your surgery date. Maintain a 6 foot distance from other people (social distancing). Avoid touching your eyes, nose and mouth with unwashed hands. Wash your hands often with soap and water for at least 20 seconds. Use an alcohol- based hand welding machine operator plasma arc that contains at least 60% alcohol if soap and water are not available. ADDITIONAL COMMENTS/ FOLLOW UP * Pre-Procedure Instructions - Rufina Ureña RN - 06/24/2021 2:41 PM CDT [facility] PRE-SURGICAL NURSING INSTRUCTIONS Telephone Assessment General Information Discussed with Patient: 1. Surgery location provided to patient. 2. Arrival time and surgical time will be provided to the patient by their surgeon. 3. You should wear clothing that is clean, loose, comfortable and easy to get in and out of on the day of surgery. 4. You should leave your valuables and any jewelry at home. No metal or piercings are allowed in the operating room. 5. You should bring your insurance card, a photo ID (example: Dining Car Server's License) and a method of payment for any insurance copay, deductible or copay for discharge medications. 6. You should bring a complete, up-to-date list of all your medications on the day of surgery, including any over the counter medications or supplements you may take. 7. You should bring your Advanced Directive and/or Living Will with you on the day of surgery if you have not verified a copy is already in your Epic Chart. Eye Surgery Process for Patients: 1. Before the surgery, you will be asked to change into a gown. 2. As you get ready for your surgery, your nurse will ask you questions about your medical history and review your medications with you. 3. An IV will be placed so that we may administer medication to keep you comfortable. 4. You will meet your surgical team. 5. You will be taken by stretcher to the operating room for your surgery. 6. After your surgery, you will come to the recovery area. 7. A Fall Risk band will be placed on your arm to remind you that you are at higher risk for falling after having eye surgery. You may remove this band after 24 hours. 8. Before you leave, your discharge team will review your medications with you and any special instructions. A Guide for Patients Having Surgery: Your Pathway to Excellent Care OUR GOAL IS TO PROVIDE YOU WITH EXCELLENT CARE Use this guide to learn about what you can do before, during and after surgery to help your recovery. You are the most important person on your health care team. By becoming informed and involved, you can contribute to the success of your surgery. ??? If your surgeon's directions are different than those in this guide, talk with your nurse or surgeon to confirm the information. ??? It is important that you understand how to take care of yourself at home after surgery. ??? Be sure to bring this guide with you on the day of surgery and take it home with you after surgery. ??? Write down questions for your nurse or surgeon on the last page of this booklet. Important pages to be reviewed BEFORE surgery: Page 1: QR codes for Surgery Center maps Page 3: Types of Anesthesia Page 5: Tips for the day & night before surgery Page 6: When to stop eating BEFORE surgery and examples of clear liquids Page 7-10: Preventing Infection: Chlorhexidine Gluconate (CHG) Bathing Instructions You may access A Guide for Patients Having Surgery: Your Pathway to Excellent Care by the followinglink: [email or web address] How To Prepare Your Skin For Surgery Below is the Pre-Surgical Bathing Protocol you should follow for your surgery. If your surgeon provides you different bathing instructions, please follow your surgeon's orders. Normal Bathing: Bathe with regular soap the night before and/or day of surgery. Normal Bathing Protocol Bathe with your normal soap the night before and the morning of surgery. ??? Wear clean clothes or pajamas to sleep in. ??? After showering DO NOT put on deodorant, hair products, conditioners, lotions, creams, powders,Vaseline or any non-essential products. ??? Place clean linens on your bed the night before surgery. ??? Shaving: You may shave your face, legs and underarms during your evening shower. Avoid shaving on the day of surgery. COVID TESTING PLAN: Please note, the below is the Pre-Procedure COVID Testing Plan for the Center for Preoperative Assessment & Planning for Anesthesia. Surgeon's offices may require additional testing. If so, the surgeon's office will reach out to the patient to discuss further testing. Patient's COVID-19 vaccination status: Up to date with mRNA vaccine. Documentation of vaccination status is available in the Epic Immunization tab. COVID Test Plan: COVID Test not indicated related to patient is up to date on COVID 19 vaccine(s) and booster, if eligible.. If you are going to a [facility] Testing Site for COVID testing, please arrive at least 30 minutes PRIOR to lab closing time. If you have COVID testing or should have COVID testing for your surgery/procedure, please read below section: If you need to reschedule your COVID test to a different location or if your surgery gets rescheduled, you MUST call [phone] Monday-Monday 8am-4:30pm to get your COVID testing rescheduled or your lab order will not be available at Testing Sites. COVID Testing is only valid for up to 96 hours prior to surgery date, unless otherwise specified. If you are unable to reach staff at the above phone number, please call the CPAP Staff at [phone]. This number cannot order a lab test, but can attempt to contact the above number/staff to assist you. CPAP Staff are available Monday- Monday 8am-5pm. We recommend you Self-Isolate after COVID Testing: Stay at home, if possible, until your surgery date. Maintain a 6-foot distance from other people (social distancing) and wear a face mask if you areable. Avoid touching your eyes, nose and mouth with unwashed hands. Wash your hands often with soapand water for at least 20 seconds. Use an alcohol-based hand welding machine operator plasma arc that contains at least 60% alcohol if soap and water are not available. These are general guidelines, but if have been told by aphysician that you should not perform any of the above, please follow physician's guidelines. All patients should read below section: All visitors/patients are being asked to wear a clean face mask when entering the hospital. COVID 19 Updates & Visitor Policy: Please access [email or web address] for the most updated information. Information on [facility]: Please view [email or web address] (Patient & Visitor Information) for additional details regarding Advanced Directive forms, AWARE, directions, parking information, lodging, Internet access, dining and more. For MyChart information, to activate account or password recovery, please go to [email or web address] or call [phone] (toll-free: [phone]). Information for Suicide Prevention: National Suicide Prevention Lifeline (9-825- 387-FECW (7528)). Surgery Times: For patients having surgery @ [facility], [facility] or [facility], if your surgeon's office has not notified you of your surgery time by NOON THE BUSINESS DAY BEFORE your surgery, please call [phone] and ask for your surgeon'soffice Dr. Darlin Eisenberg. 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 POCT GLUCOSE DEVICE Routine 07/06/2021 2 :08 PM CDT PROTIME-INR STAT 07/06/2021 1:44 PM CDT documented in this encounter Results * POCT glucose (07/06/2021 6:28 PM CDT) Glucose, POC 177 70 - 199 mg/dL [facility] Blood 07/06/2021 6:28 PM CDT 07/06/2021 6:28 PM CDT Renaldo Eisenberg MD LAB POCT ORDERABLES - DEVICE Final Result Performing Organization Address [facility] de Phone Number [facility] Department [place] [address] * POCT glucose (07/06/2021 2:08 PM CDT) Pathologist [facility] Glucose, POC 147 70 - 199 mg/dL [facility] Blood 07/06/2021 2:08 PM CDT 07/06/2021 2:08 PM CDT Result [facility] Renaldo Eisenberg MD LAB POCT ORDERABLES - DEVICE Final Result Performing Organization Address [facility] de Phone Number [facility] Department [place] [address] * Protime-INR (07/06/2021 1:44 PM CDT) [facility] PT 13.2 9.5 - 13.6 sec [facility] INR 1.2 0.9 - 1.2 [facility] Comment: Interpretive data Oral anticoagulant therapeutic ranges: Venous thromboembolism prophylaxis or treatment: 2.0-3.0 CARDIOLOGY Standard range: 2.0-3.0 High-intensity range: 2.5-3.5 Refer to indication-specific guidelines for appropriate target ranges for prosthetic heart valve replacement. Current interpretive data was last revised on 2019. 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 Ornelass) preservative free ophthalmic solution (total volume 22.5 mL) As needed, Starting on Mon07/06/21 at 1616, Intra-Op Given 07/06/2021 4:16 PM CDT 3.8 mL Right Eye sodium chloride 0.9% irrigation As needed, Starting on Mon07/06/21 at 1630, Intra-Op Given 07/06/2021 4:30 PM CDT 1,000 mL Right Eye tetracaine (PF) (ALTACAINE) 0.5 % ophthalmic solution As needed, Starting on Mon07/06/21 at 1630, Intra-Op, Indications: Administration of Corneal AnesthesiaIndications:Administratio n of Corneal Anesthesia Given 07/06/2021 4:30 PM CDT 2 drops documented in this encounter Historical Medications * This list may reflect changes made after this encounter. insulin NPH (HumuLIN N, NovoLIN N) 100 unit/mL vial for injectionIndicati ons:type 2 diabetes mellitus Inject 60 Units under the skin 2 (two) times a day added in this encounter Active and Recently Administered Medications Times are shown in CDT. Continuous Medication Order 07/04/2021 07/05/2021 07/06/2021 Lactated Ringer's (LR) infusion 30 mL/hr, intravenous, Continuous, Starting on Mon07/06/21 at 1415 1416 (New Bag - Prov ider: Radha Sylvester RN)1602 (Rate/Dose Verify - Provider: Joselyn Dempsey CRNA)1824 (Anesthesia Volume Adjustment - Provider: Joselyn Dempsey CRNA)2309 (Due: Stopped) Lactated Ringer's (LR) infusion 125 mL/hr, intravenous, Continuous, Starting on Mon07/06/21 at 1900, Phase I, 1900 (Due) PRN Medication Order 07/04/2021 07/05/2021 07/06/2021 diphenhydrAMINE (BENADRYL) injection 12.5 mg 12.5 mg, intravenous, Every 15 min PRN, itching, Starting on Mon07/06/21 at 1826, For 2 doses, Phase I, Max cumulative dose 50 mg., Indications: Itching fentaNYL (SUBLIMAZE) preservative free injection 50 mcg 50 mcg, intravenous, Once as needed, uncontrolled pain on PACU admission, Starting on Mon07/06/21 at 1826, For 1 dose, Phase I, Then proceed to PACU 1st line analgesic., Indications: Pain HYDROmorphone (DILAUDID) injection 0.2 mg 0.2 mg, intravenous, Administer over 2 Minutes, Every 10 min PRN, 1st line for pain, Starting on Mon07/06/21 at 1826, Phase I, Notify Anesthesiologist if total PACU dose reaches 2 mg and pain score 5/10 or more., Indications: Pain lidocaine 1%, bupivicaine 0.375%, EPINEPHrine 0.3 mg (1:75,000) (Dr. Eisenberg's) preservative free ophthalmic solution (total volume 22.5 mL) (CANCELED) As needed, Starting on Mon07/06/21 at 1616, Intra-Op 1616 (Given - Provid er: Renaldo Eisenberg MD) meperidine (DEMEROL) preservative free injection 12.5 mg 12.5 mg, intravenous, Administer over 5 Minutes, Every 10 min PRN, shivering, Starting on Mon07/06/21 at 1826, For 2 doses, Phase I, Max cumulative dose 25 mg., Indications: Shivering naloxone (NARCAN) 0.4 mg/mL injection 0.04-0.4 mg 0.04-0.4 mg, intravenous, Once as needed, other, excessive sedation/respiratory depression, Starting on Mon07/06/21 at 1826, For 1 dose, Phase I, Dilute 0.4 mg with 9 mL NS (final concentration 0.04 mg/mL). For respiratory depression (respiratory rate less than 6), administer 0.4 mg IVP over 30 seconds. For excessive sedation administer 0.04 mg (1 mL) every 1 minute until desired level of alertness. For IV, administer over 30 seconds., Indications: Opioid Toxicity ondansetron (ZOFRAN) injection 4 mg 4 mg, intravenous, Administer over 2 Minutes, Once as needed, nausea, vomiting, Starting on Mon07/06/21 at 1826, For 1 dose, Phase I, Proceed to prochlorperazine if ondansetron has been given within the last 6 hours. prochlorperazine (COMPAZINE) injection 10 mg 10 mg, intravenous, Administer over 2 Minutes, Once as needed, nausea, vomiting, Starting on Mon07/06/21 at 1826, For 1 dose, Phase I, If nausea/vomiting not relieved by ondansetron within 30 minutes or if ondansetron has been given within the last 6 hours. sodium chloride 0.9% irrigation (CANCELED) As needed, Starting on Mon07/06/21 at 1630, Intra-Op 1630 (Given - Provid er: Renaldo Eisenberg MD) tetracaine (PF) (ALTACAINE) 0.5 % ophthalmic solution (CANCELED) As needed, Starting on Mon07/06/21 at 1630, Intra-Op, Indications: Administration of Corneal Anesthesia 1630 (Given - Provid er: Renaldo Eisenberg MD - Comment: topical) documented in this encounter Orders Medications Ordered That Savage ht Not Have Been Administered Count Last Ordered Date First Ordered Date diphenhydrAMINE (BENADRYL) i njection 12.5 mg 1 07/06/2021 fentaNYL (SUBLIMAZE) preserv ative free injection 50 mcg 1 07/06/2021 HYDROmorphone (DILAUDID) injection 0.2 mg 1 07/06/2021 Lactated Ringer's (LR) infusion 1 2 lidocaine PF (XYLOCAINE) 10 mg/mL (1 %) preservative free injection 2-10 mg 1 07/06/2021 meperidine (DEMEROL) preserv ative free injection 12.5 mg 1 07/06/2021 naloxone (NARCAN) 0.4 mg/mL injection 0.04-0.4 mg 1 07/06/2021 ondansetron (ZOFRAN) injection 4 mg 1 07/06 prochlorperazine (COMPAZINE) injection 10 mg 1 07/06/2021 sodium chloride 0.9% flush 0.5-20 mL 1 08/2021 documented in this encounter Care Teams Welding Manager Relationship Specialty Start Date End Date Erwin Gardner MD [address] [place], [place] [id number] PCP - General 07/01/16 Kev Dey MD [address] [place], [place] [id number] Referring Physician Nephrology 05/10/19 Amelia Rodrigez DPM [address] [place] [address] Consulting Physician Foot and Ankle Surg 06/28/19 Meghan Cordero MD [address] [facility] [address] [place] [address] Referring Physician Dermatology 06/02/21 Dennys Coates MD [address] [place] [address] [place] [address] Consulting Physician Dermatology 06/02/21 Erwin Velasquez MD [address] [facility] [address] [place] [address] Consulting Physician Cardiology 06/02/21 documented as of this encounter
--- OUTSIDE RECORDS SUMMARY | 2024-04-15 05:58 | XMS_ITS | Encounter Summary ---
Author Organization [facility] Healthcare Address [address] [place] [address] Care Team Providers Care Coach Wirer Name Role Phone Erwin Gardner MD Primary Care Provide r Kev Dey MD Unavailable [phone] Amelia RodrigezM Unavailable [phone] Meghan Cordero MD Unavailable [phone] Dennys Coates MD Unavailable [phone] Erwin Velasquez MD Unavailable [phone] Encounter Details Date Type Department Care Team (Latest Contact Info) Description 07/28/2023 Anticoagulation Visit [facility] Cardiology [address] [place] [address] Leigh Garcia RN Atrial fibrillation [...] on file 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 Gender Identity Not on file Sexual Orientation Not on file documented as of this encounter Plan of Treatment Not on file documented as of this encounter Visit Diagnoses Diagnosis Atrial fibrillation (CMS/HCC) [I48.91]- Primary documented in this encounter Care Teams Coach Wirer Relationship Specialty Start Date End Date Erwin Gardner MD [address] [place] [address] PCP - General 07/01/16 Kev Dey MD [address] [place] [address] Referring Physician Nephrology 05/10/19 Amelia Rodrigez DPM [address] [facility] [place] [address] Consulting Physician Foot and Ankle Surg 06/28/19 Meghan Cordero MD [address] [facility] [address] [place] [address] Referring Physician Dermatology 06/02/21 Dennys Coates MD [address] [place] [address] [address] [place], [place] [id number] Consulting Physician Dermatology 06/02/21 Erwin Velasquez MD [address] [facility] [address] [place], [place] [id number] Consulting Physician Cardiology 06/02/21 documented as of this encounter
--- OUTSIDE RECORDS SUMMARY | 2024-04-15 05:58 | XMS_ITS | Encounter Summary ---
Author Organization [facility] Address [address] [facility] [address] [place] [address] Care Team Providers Care Property Claims Adjuster Name Role Phone Erwin Gardner MD Primary Care Provide r Kev Dey MD Unavailable [phone] Amelia Rodrigez DPM Unavailable [phone] Meghan Cordero MD Unavailable [phone] Dennys Coates MD Unavailable [phone] Erwin Velasquez MD Unavailable [phone] Encounter Details Date Type Department Care Team (Latest Contact Info) Description 08/02/2022 Anticoagulation Visit [facility] Cardiology [address] [place] [address] Lillian Gallo RN Atrial fibrillation, unspecified type (HCC) (Primary [...] on file 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 Gender Identity Not on file Sexual Orientation Not on file documented as of this encounter Plan of Treatment Not on file documented as of this encounter Visit Diagnoses Diagnosis Atrial fibrillation, unspecified type (HCC)- Primary documented in this encounter Care Teams Property Claims Adjuster Relationship Specialty Start Date End Date Erwin Gardner MD [address] [place] [address] PCP - General 07/01/16 Kev Dey MD [address] [place] [address] Referring Physician Nephrology 05/10/19 Amelia Rodrigez DPM [address] [facility] [place] [address] Consulting Physician Foot and Ankle Surg 06/28/19 Meghan Cordero MD [address] [place] [address] Referring Physician Dermatology 06/02/21 Dennys Coates MD [address] [place] [address] [place] [address] Consulting Physician Dermatology 06/02/21 Erwin Velasquez MD [address] [place] [address] Consulting Physician Cardiology 06/02/21 documented as of this encounter
--- OUTSIDE RECORDS SUMMARY | 2024-04-15 05:58 | XMS_ITS | Encounter Summary ---
Author Organization [facility] Healthcare Address [address] [place] [address] Care Team Providers Care Netbackup Admin Name Role Phone Erwin Gardner MD Primary Care Provide r Kev Dey MD Unavailable [phone] Amelia RodrigezM Unavailable [phone] Meghan Cordero MD Unavailable [phone] Dennys Coates MD Unavailable [phone] Erwin Velasquez MD Unavailable [phone] Reason for Visit * Reason Comments Atrial Fibrillation Cardiomyopathy 6 mo f/u * Consultation (Routine) - Authorized Specialty Diagnoses / Procedures Referred By Contac t Referred To Contact Cardiology Diagnoses Atrial fibrillation, unspecified type (HCC) Erwin Gardner MD [address] [place] [address] Phone: tel: fax: Erwin Velasquez MD [address] [address] Phone: tel: fax: Referral ID Status Reason Start Date Expiration Date Visits Requested Visits Authorized [id number] Authorized Specialty Services Required 05/12/2023 05/12/2024 12 12 Encounter Details Date Type Department Care Team (Late st Contact Info) Description 11/23/2023 8:00 AM CDT Office Visit [facility] Medical Group Cardiology [address] [place] [address] Erwin Velasquez MD [address] [place] [address] Atrial fibrillation, unspecified type (HCC) (Primary Dx); Lipid screening Social History Tobacco Use Types Packs/Day Years [...] on file 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 Gender Identity Not on file Sexual Orientation Not on file documented as of this encounter Last Filed Vital Signs Vital Sign Reading Time Taken Comments Blood Pressure 100/54 11/23/2023 8:04 AM CDT Pulse 85 11/23/2023 8:04 AM CDT Temperature - - Respiratory Rate - - Oxygen Saturation 96% 11/23/2023 8:04 AM CDT Inhaled Oxygen Concentration - - Weight 137 kg (302 lb) 11/23/2023 8:04 AM CDT Height 190.5 cm (6' 3 ) 11/23/2023 8:04 AM CDT Body Mass Index 37.75 11/23/2023 8:04 AM CDT documented in this encounter Progress Notes * Erwin Velasquez MD - 11/23/2023 8:00 AM CDT [facility] FOLLOW UP 11/23/2023 Erwin Isaac is a 73 y.o. male who presents for follow up [...] and rate controlled. He follows with a technical specialist cytology as well as he has developed some chronic kidney disease. He also has diabetes mellitus complicated by some peripheral neuropathy in the lower extremities. The patient returns today for scheduled six-month appointment. He continues to take GDMT for his left ventricular dysfunction and atrial fibrillation. Patient returns today for scheduled follow-up without any complaints at this time. He does have some chronic lower extremity edema which is unchanged his weight is down 17 lb from his last visit here which is good to see. 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 REVIEW OF SYSTEMS General ROS: negative for [...] Rfl: 3 carvediloL (COREG) 25 mg tablet, TAKE 0.5 TABLETS BY MOUTH 2 TIMES A DAY WITH MEALS., Disp: 90 tablet, Rfl: 2 erythromycin (ILOTYCIN) ophthalmic ointment, Apply to eyelid incisions [address] a [address] Only place ointment in the eyes if they are irritated., Disp: 3.5 g, Rfl: 3 fenofibrate (TRIGLIDE) 160 mg tablet, TAKE 1 TABLET BY MOUTH EVERY DAY, Disp: 90 tablet, Rfl: 3 fish oil-dha-epa 1,200-144-216 mg capsule, Take 1 capsule by mouth 2 (two) times a day, Disp: , Rfl: furosemide (LASIX) 80 mg tablet, TAKE ONE AND ONE-HALF TABLETS BY MOUTH DAILY, Disp: 135 tablet, Rfl: 2 gabapentin (NEURONTIN) 100 mg capsule, Take 1 [...] Rfl: 3 losartan (COZAAR) 50 mg tablet, TAKE 1 TABLET BY MOUTH EVERY DAY, Disp: 90 tablet, Rfl: 3 mupirocin (BACTROBAN) 2 % ointment, APPLY A SMALL AMOUNT TO THE AFFECTED AREA(S) ON LEG 3 TIMES DAILY, Disp: , Rfl: semaglutide (OZEMPIC) 0.25 mg or 0.5 mg(2 mg/1.5 mL) pen injector injection, Inject 0.25 mg under the skin once a week, Disp: , Rfl: spironolactone (ALDACTONE) 50 mg tablet, TAKE 1 TABLET BY MOUTH EVERY DAY (Patient taking differently: 2 tablets (100 mg total)), Disp: 90 tablet, Rfl: 2 triamcinolone (KENALOG) 0.1 % cream, Apply topically as needed, Disp: , Rfl: ULTICARE 1 mL 30 gauge x 1/2 syringe, , Disp: , Rfl: warfarin (COUMADIN) 2.5 mg tablet, Take 1 tablet (2.5 mg total) by mouth once a week Monday, Disp: , Rfl: warfarin (COUMADIN) 5 mg tablet, Take 1 tablet (5 mg total) by mouth daily, Disp: 15 tablet, Rfl: 0 LABS AND OTHER DIAGNOSTIC TESTS No results found for: CHOL No results found for: HDL No results found for: LDLCALC No results found for: TRIG No results found for: CHOLHDL Lab Results Component Value Date WBC 7.2 02/03/2021 HGB 11.1 (L) 02/03/2021 HCT 33.5 (L) 02/03/2021 MCV 91.3 02/03/2021 No lab exists for component: LABALBU PHYSICAL EXAM Vitals BP 100/54 (BP Location: Right arm, Patient Position: Sitting) Pulse 85 Ht 190.5 cm (6' 3 ) Wt (!) 137 kg (302 lb) SpO2 96% BMI 37.75 kg/m?? Physical Examination: General appearance -significantly obese [...] no suspicious skin lesions noted ASSESSMENT Erwin Garcia was seen today for atrial fibrillation and cardiomyopathy. Diagnoses and all orders for this visit: Atrial fibrillation, unspecified type (HCC) PLAN/RECOMMENDATIONS Will continue to follow the patient at 6 month intervals. Continue guideline directed medical therapy for LV dysfunction and atrial fibrillation. His weight loss is good to see told the patient if he encounters difficulty with hypotension as he loses weight he should give me a call to consider medication adjustment Erwin Velasquez MD documented in this encounter Miscellaneous Notes * Addendum Note - Edgardo Cifuentes MA - 11/23/2023 8:00 AM CDTAddended by: EDGARDO CIFUENTES on: 11/23/2023 08:38 AM Modules accepted: Orders documented in this encounter Plan of Treatment Not on file documented as of this encounter Procedures Procedure Name Priority Date/Time Associated Diagnosis Comments POCT LIPID PANEL Routine 11/23/2023 7:59 AM CDT Lipid screening documented in this encounter Results * POCT lipid panel (11/23/2023 7:59 AM CDT) Cholesterol, POC 138 mg/dL HDL, POC 50 mg/dL Triglycerides, POC 112 mg/dL LDL Cholesterol POC 66 mg/dL Chol/HDL Ratio, POC 1.3 Non-HDL Cholesterol, POC 88 mg/dL Cholesterol Total, POC 138 mg/dL Capillary blood 11/23/2023 7 :59 AM CDT us Erwin Velasquez MD POINT OF CARE TEST ORDER EVY Final Result documented in this encounter Visit Diagnoses Diagnosis Atrial fibrillation, unspecified type (HCC)- Primary Lipid screening Screening for lipoid disorders documented in this encounter Care Teams Netbackup Admin Relationship Specialty Start Date End Date Erwin Gardner MD [address] [place] [address] PCP - General 07/01/16 Kev Dey MD [address] [place] [address] Referring Physician Nephrology 05/10/19 Amelia Rodrigez, DPM [address] [facility] [place], [place] [id number] Consulting Physician Foot and Ankle Surg 06/28/19 Meghan Cordero MD [address] [place], [place] [id number] Referring Physician Dermatology 06/02/21 Dennys Coates MD [address] [place] [address] [place] [address] Consulting Physician Dermatology 06/02/21 Erwin Velasquez MD [address] [place], [place] [id number] Consulting Physician Cardiology 06/02/21 documented as of this encounter
--- OUTSIDE RECORDS SUMMARY | 2024-04-15 05:58 | XMS_ITS | Encounter Summary ---
Author Organization [facility] Healthcare Address [address] [place] [address] Care Team Providers Care Injection Molding Supervisor Name Role Phone Erwin Gardner MD Primary Care Provide r Kev Dey MD Unavailable [phone] Amelia RodrigezM Unavailable [phone] Meghan Cordero MD Unavailable [phone] Dennys Coates MD Unavailable [phone] Erwin Velasquez MD Unavailable [phone] Reason for Visit * Reason Comments Peripheral Vascular Disease Encounter Details Date Type Department Care Team (Late st Contact Info) Description 12/06/2023 9:15 AM CDT Office Visit [facility] Medical Group Vascular at [address] [place] [address] Arley Church MD [address] [facility] [address] [address] PVD (peripheral vascular disease) (HCC) (Primary Dx); Chronic venous insufficiency; Mixed hyperlipidemia Social History Tobacco Use Types Packs/Day Years [...] on file 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 [facility] Patient ID: Erwin Isaac is a 73 y.o. male Visit Date: 12/06/2023 Chief Complaint Chief Complaint Patient presents with Peripheral Vascular Disease HPI Erwin Isaac is a 73 y.o. male w/ a history of HTN, HLD seen in the office for evaluation for bilateral lower extremity peripheral vascular disease. Has also evidence of chronic venous insufficiency with swelling and discoloration to the legs. Overall has no life limiting claudication rest pain or wounds, is diabetic and has had ulcers managed by his belt sewer. Antiplatelets/Anticoagulants (and reason): - ASA Previous vascular surgery interventions, including date (surgery, angio,etc): - none Past Medical History: Diagnosis Date Adiposity Obesity Atrial fibrillation (CMS/HCC) (HCC) afib CHF (congestive heart failure) (CMS/HCC) (HCC) Chronic kidney disease Stage III Hyperlipidemia Hypertension Hypertension Neuropathy (CMS/HCC) Feet Type 2 diabetes mellitus (HCC) Past Surgical History: Procedure Laterality Date BIOPSY 2018 bone biopsy CARDIAC CATHETERIZATION 06/[address] Velasquez's notes CATARACT EXTRACTION Bilateral 2015 MOHS SURGERY RECONSTRUCTION Right US GUIDED BIOPSY RENAL N/A 02/03/2021 Family History Problem Relation Age of Onset Coronary artery disease Mother Coronary artery disease, premature; Cataracts Sister Cataracts Brother Blindness Neg Hx Diabetes Neg Hx Glaucoma Neg Hx Macular degeneration Neg Hx Retinal detachment Neg Hx Strabismus Neg Hx Thyroid disease Neg Hx Anesthesia problems Neg Hx Malig Hyperthermia Neg Hx Pseudochol deficiency Neg Hx Social History Tobacco Use Smoking status: Never Smokeless tobacco: Never Substance and Sexual Activity Drug use: No Sexual activity: Defer Alcohol Use: Not At Risk (06/24/2021) AUDIT-C Frequency of Alcohol Consumption: Never Average Number of Drinks: Not on file Frequency of Binge Drinking: Never ROS Constitutional: No change in appetite. No recent weight loss. No fevers chills or sweats. HEENT: No trouble swallowing. No tinnitus. Eyes: No visual disturbances Respiratory: No shortness of breath. No cough or sputum production. No wheezing. Cardiovascular: No chest pain. No palpitations. Gastrointestinal: No abdominal pain. No nausea vomiting or diarrhea. Genitourinary: No dysuria. No hematuria. Extremities: No claudication. No rest pain. No lower extremity ulcerations or infections. No significant edema. Musculoskeletal: No joint pains. No back pain. Neurologic: No dizziness. No syncope. No weakness. Skin: No rashes. No discoloration. Hematologic: no bleeding Psychiatric: no anxiety, no behavioral changes, no mood swings PE Constitutional: Alert and oriented HEENT: Head atraumatic and normocephalic Neck is supple No carotid bruits Extraocular movements full, sclerae anicteric Chest: Effort normal. Breath sounds normal. Cardiovascular: S1 and S2 are normal. No murmurs rubs or gallops appreciated. Abdominal: Soft, nontender, no masses. Extremities/Vascular: Bilateral extremity edema with lipodermatosclerosis. No palpable pulses. Musculoskeletal: Normal range of motion. Neurologic: Cranial nerves 2-12 intact. Strength and sensation intact bilaterally. Skin: Warm and dry. No rashes. No discoloration. Psychiatric: Normal mood and affect. Behavior normal. Judgment normal. IMAGING STUDIES I reviewed interpreted his lower extremity arterial Doppler from [facility] which is from 2019 which shows noncompressibility of vessels. Diagnoses and all orders for this visit: PVD (peripheral vascular disease) (HCC) (Primary) Assessment & Plan: Doppler testing from [facility] back in 2019, repeat lower extremity arterial Doppler ordered. Overall no life-limiting claudication rest pain or wounds. Continue ASA statin therapy. Chronic venous insufficiency Assessment & Plan: Discussed the importance of compression therapy, he has compression stockings, I also recommended Dave wraps if the compression stockings are too difficult to get on. Mixed hyperlipidemia Assessment & Plan: Stable continue Lipitor 20 mg MD Arley Frye MD This note was generated in part or in whole with voice recognition software. Voice recognition is usually quite accurate but there are flaker tender errors that can and often occur. All attempts weremade to correct these errors. I apologize for any typographical errors that were not detected and corrected. documented in this encounter Miscellaneous Notes * Assessment & Plan Note - Arley Church MD - 12/08/2023 11:19 AM CDTAssociated Problem(s): Mixed hyperlipidemia Stable continue Lipitor 20 mg * Assessment & Plan Note - Arley Church MD - 12/08/2023 11:19 AM CDTAssociated Problem(s): Chronic venous insufficiency Discussed the importance of compression therapy, he has compression stockings, I also recommended Dave wraps if the compression stockings are too difficult to get on. * Assessment & Plan Note - Arley Church MD - 12/08/2023 11:19 AM CDTAssociated Problem(s): PVD (peripheral vascular disease) (HCC) Doppler testing from [facility] back in 2019, repeat lower extremity arterial Doppler ordered. Overall no life-limiting claudication rest pain or wounds. Continue ASA statin therapy. documented in this encounter Plan of Treatment Not on file documented as of this encounter Visit Diagnoses Diagnosis PVD (peripheral vascular disease) (HCC)- Primary Unspecified peripheral vascular disease Chronic venous insufficiency Unspecified venous (peripheral) insufficiency Mixed hyperlipidemia documented in this encounter Care Teams Injection Molding Supervisor Relationship Specialty Start Date End Date Erwin Gardner MD [address] [place] [address] PCP - General 07/01/16 Kev Dey MD [address] [place] [address] Referring Physician Nephrology 05/10/19 Amelia Rodrigez DPM [address] [facility] [place] [address] Consulting Physician Foot and Ankle Surg 06/28/19 Meghan Cordero MD [address] [place], [place] [address] Referring Physician Dermatology 06/02/21 Dennys Coates MD [address] [place] [address] [address] [place], [place] [address] Consulting Physician Dermatology 06/02/21 Erwin Velasquez MD [address] [place], [place] [address] Consulting Physician Cardiology 06/02/21 documented as of this encounter
--- OUTSIDE RECORDS SUMMARY | 2024-04-15 05:58 | XMS_ITS | Encounter Summary ---
Author Organization [facility] Healthcare Address [address] [place] [address] Care Team Providers Care Two Way Radio Technician Name Role Phone Erwin Gardner MD Primary Care Provide r Kev Dey MD Unavailable [phone] Amelia RodrigezM Unavailable [phone] Meghan Cordero MD Unavailable [phone] Dennys Coates MD Unavailable [phone] Erwin Velasquez MD Unavailable [phone] Encounter Details Date Type Department Care Team (Latest Contact Info) Description 01/04/[address] 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 Gender Identity Not on file Sexual Orientation Not on file documented as of this encounter Plan of Treatment Not on file documented as of this encounter Visit Diagnoses Diagnosis Atrial fibrillation (CMS/HCC) [I48.91]- Primary documented in this encounter Care Teams Two Way Radio Technician Relationship Specialty Start Date End Date Erwin Gardner MD [address] [place] [address] PCP - General 07/01/16 Kev Dey MD [address] [place] [address] Referring Physician Nephrology 05/10/19 Amelia Rodrigez DPM [address] [facility] [place] [address] Consulting Physician Foot and Ankle Surg 06/28/19 Meghan Cordero MD [address] [facility] [address] [place] [address] Referring Physician Dermatology 06/02/21 Dennys Coates MD [address] [place] [address] [address] [place], [place] [id number] Consulting Physician Dermatology 06/02/21 Erwin Velasquez MD [address] [facility] [address] [place], [place] [address] Consulting Physician Cardiology 06/02/21 documented as of this encounter
--- OUTSIDE RECORDS SUMMARY | 2024-04-15 05:58 | XMS_ITS | Encounter Summary ---
Author Organization [facility] Medical Group Address [address] [place] [address] Care Team Providers Care Clinical Athletic Instructor Name Role Phone Erwin Gardner MD Primary Care Provide r Kev Dey MD Unavailable [phone] Amelia RodrigezM Unavailable [phone] Meghan Cordero MD Unavailable [phone] Dennys Coates MD Unavailable [phone] Erwin Velasquez MD Unavailable [phone] Encounter Details Date Type Department Care Team (Late st Contact Info) Description 11/22/2022 Telephone [facility] Medical Group Cardiology [address] [place] [address] Erwin Velasquez MD [address] [place] [address] Social History Tobacco Use Types [...] on file 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 * Telephone Encounter - Myrna Rahman - 11/22/2022 2:21 PM CDT Amanda from [facility] in [facility] states there is a risk of increased potassium when taking Klor-Con with Losartan and Spironolactone. Contact: documented in this encounter Plan of Treatment Not on file documented as of this encounter Visit Diagnoses Not on filedocumented in this encounter Care Teams Clinical Athletic Instructor Relationship Specialty Start Date End Date Erwin Gardner MD [address] [place] [address] PCP - General 07/01/16 Kev Dey MD [address] [place] [address] Referring Physician Nephrology 05/10/19 Amelia Rodrigez DPM [address] [place] [address] Consulting Physician Foot and Ankle Surg 06/28/19 Meghan Cordero MD [address] [place] [address] Referring Physician Dermatology 06/02/21 Dennys Coates MD [address] [place] [address] [place] [address] Consulting Physician Dermatology 06/02/21 Erwin Velasquez MD [address] [id number] Consulting Physician Cardiology 06/02/21 documented as of this encounter
--- OUTSIDE RECORDS SUMMARY | 2024-04-15 05:58 | XMS_ITS | Encounter Summary ---
Author Organization [facility] Medical Group Address [address] [place] [address] Care Team Providers Care Collaborating Supervising Physician Name Role Phone Erwin Gardner MD Primary Care Provide r Kev Dey MD Unavailable [phone] Amelia Rodrigez DPM Unavailable [phone] Meghan Cordero MD Unavailable [phone] Dennys Coates MD Unavailable [phone] Erwin Velasquez MD Unavailable [phone] Encounter Details Date Type Department Care Team (Latest Contact Info) Description 07/11/2022 Anticoagulation Visit [facility] Medical Group Cardiology [address] [place] [address] Leigh Garcia RN Atrial fibrillation, [...] on file 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 Gender Identity Not on file Sexual Orientation Not on file documented as of this encounter Plan of Treatment Not on file documented as of this encounter Visit Diagnoses Diagnosis Atrial fibrillation, unspecified type (HCC)- Primary documented in this encounter Care Teams Collaborating Supervising Physician Relationship Specialty Start Date End Date Erwin Gardner MD [address] [place] [address] PCP - General 07/01/16 Kev Dey MD [address] [place] [address] Referring Physician Nephrology 05/10/19 Amelia Rodrigez DPM [address] [facility] [place] [address] Consulting Physician Foot and Ankle Surg 06/28/19 Meghan Cordero MD [address] [place] [address] Referring Physician Dermatology 06/02/21 Dennys Coates MD [address] [place] [address] [place] [address] Consulting Physician Dermatology 06/02/21 Erwin Velasquez MD [address] [facility] [address] [place] [address] Consulting Physician Cardiology 06/02/21 documented as of this encounter
--- OUTSIDE RECORDS SUMMARY | 2024-04-15 05:58 | XMS_ITS | Encounter Summary ---
Author Organization [facility] Medical Group Address [address] [facility] [facility] [address] [place] [address] Care Team Providers Care Software Controls Engineer Name Role Phone Erwin Gardner MD Primary Care Provide r Kev Dey MD Unavailable [phone] Amelia Rodrigez DPM Unavailable [phone] Meghan Cordero MD Unavailable [phone] Dennys Coates MD Unavailable [phone] Erwin Velasquez MD Unavailable [phone] Encounter Details Date Type Department Care Team (Latest Contact Info) Description 11/09/[address] 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 Gender Identity Not on file Sexual Orientation Not on file documented as of this encounter Plan of Treatment Not on file documented as of this encounter Visit Diagnoses Diagnosis Atrial fibrillation, unspecified type (HCC)- Primary documented in this encounter Care Teams Software Controls Engineer Relationship Specialty Start Date End Date Erwin Gardner MD [address] [place] [address] PCP - General 07/01/16 Kev Dey MD [address] [place] [address] Referring Physician Nephrology 05/10/19 Amelia Rodrigez DPM [address] [facility] [place] [address] Consulting Physician Foot and Ankle Surg 06/28/19 Meghan Cordero MD [address] [place] [address] Referring Physician Dermatology 06/02/21 Dennys Coates MD [address] [place] [address] [place] [address] Consulting Physician Dermatology 06/02/21 Erwin Velasquez MD [address] [facility] [address] [place] [address] Consulting Physician Cardiology 06/02/21 documented as of this encounter
--- OUTSIDE RECORDS SUMMARY | 2024-04-15 05:58 | XMS_ITS | Referral Summary ---
Author Organization [facility] [address] Address [address] [place] [address] Care Team Providers Care Metal Stamping Machine Operator Name Role Phone Darlene Gardner MD Primary Care Provide r Kev Dey MD Unavailable [phone] Amelia RodrigezM Unavailable [phone] Meghan Cordero MD Unavailable [phone] Dennys Coates MD Unavailable [phone] Darlene Velasquez MD Unavailable [phone] Feroz Carty MD Unavailable [phone] Encounters Date Type Department Care Team Description 04/12/2024 Home Care Visit [facility] - [address] [place] [address] Lilly Booker RN SN TRIAGE ENCOUNTER 04/09/2024 11:08 AM MASTER FIRE CONTROL TECHNICIAN Anesthesia Event [facility] Operating Room [address] [place] [address] Guillermo Reyes MD Gessel, Janice M., CRIMINAL JUSTICE DEPARTMENT CHAIR 04/09/2024 9:50 AM MASTER FIRE CONTROL TECHNICIAN - 04/09/2024 12:00 PM MASTER FIRE CONTROL TECHNICIAN Surgery [facility] Operating Room [address] [place] [address] Angelito Fisher MD DEBRIDEMENT WOUND 04/09/2024 2:42 AM MASTER FIRE CONTROL TECHNICIAN Anesthesia Event [facility] Operating Room [address] [place] [address] Tram Miranda MD Smith, Philip Carver, MD 04/09/2024 4:00 AM MASTER FIRE CONTROL TECHNICIAN - 04/09/2024 6:05 AM MASTER FIRE CONTROL TECHNICIAN Surgery [facility] Operating Room [address] [place] [address] Baldomero Weldon, DEBRIDEMENT WOUND 04/09/2024 12:07 AM MASTER FIRE CONTROL TECHNICIAN - Present Hospital Encounter [address] [phone] Hi Shah MD McHale, Matthew Justin, Necrotizing fasciitis (HCC) (Primary Dx); Pressure injury of skin of sacral region, unspecified injury stage; Cystitis; Elevated INR 03/28/2024 Orders Only [facility] [address] [place] [address] [place] [phone] Ro Carr MD 01/31/2024 Telephone [facility] [address] [place] [address] [place] [phone] Darlene Velasquez MD Med Refill 01/24/2024 Telephone [place] [address] [place] [phone] Darlene Velasquez MD INR order from Last 3 Months Allergies No known active allergies Medications insulin regular (HumuLIN R, NovoLIN R) 100 unit/mL injectionIndicat ions:type 2 diabetes mellitus Inject under the skin 3 (three) times a day before meals Sliding scale Suspended ULTICARE 1 mL 30 gauge x 1/2 syringe 8 Suspended warfarin (COUMADIN) 2.5 mg tabletIndication s:atrial fibrillation Take 1 tablet (2.5 mg total) by mouth once a week Abram Suspended fish oil-dha-epa 1,200-144-216 mg capsule Take [...] 04/12/2024 Assessment & Plan (04/13/2024 4:01 PM MASTER FIRE CONTROL TECHNICIAN): 04/12: Awaiting accepting hospice facility 04/13 Patient is medically stable for discharge, SW/CM updated. Discharge pending facility acceptance Necrotizing soft tissue infection 04/09/2024 Assessment & Plan (04/13/2024 4:01 PM MASTER FIRE CONTROL TECHNICIAN): 04/09: OR s/p debridement of deep tissue [...] 04/09/2024 Assessment & Plan (04/12/2024 1:57 PM MASTER FIRE CONTROL TECHNICIAN): Unknown baseline but prior hospitalizations with Cr 1.8, currently 1.25 --Avoid nephrotoxins CHF (congestive heart failure) ([facility]) 025 Overview (04/09/2024): Hold home lasix, spironalactone, [...] (12/08/2023 11:19 AM CDT): Doppler testing from [facility] back in 2019, repeat lower extremity arterial Doppler ordered. Overall no life-limiting claudication rest pain or wounds. Continue ASA statin therapy. Mixed hyperlipidemia 12/08/2023 Assessment & Plan (12/08/2023 11:19 AM CDT): Stable continue Lipitor 20 mg Basal cell carcinoma of right upper eyelid 06/03 Overview (06/03/2021): Added automatically from request for surgery [id number] MGUS (monoclonal gammopathy of unknown significa nce) 01/21/2019 Cardiomyopathy, idiopathic 07/18/2017 Atrial fibrillation ([facility]/HCC) [I48.91] 7 Assessment & Plan (04/09/2024 4:28 PM MASTER FIRE CONTROL TECHNICIAN): -Afib (on warfarin but stopped taking early March, possibly on eliquis Resolved Problems Problem Noted Date Diagnosed Date Resolved Date Multiple myeloma not having achieved remission (CMS/HCC) 10/13/2017 01/21/2019 Immunizations Name Administration Dates Next Due Influenza, Trivalent, High D ose, Split, Preservative Free, Intramuscular 03/13/2019 Social History Tobacco Use Types Packs/Day Years [...] on file Legal Sex Male 11:57 AM MASTER FIRE CONTROL TECHNICIAN Gender Identity Not on file Sexual Orientation Not on file Last Filed Vital Signs Vital Sign Reading Time Taken Comments Blood Pressure 127/66 04/15/2024 3:35 AM MASTER FIRE CONTROL TECHNICIAN Pulse 90 04/15/2024 3:35 AM MASTER FIRE CONTROL TECHNICIAN Temperature 36.3 ??C (97.3 ??F) 04/15/2024 3:35 AM CS T Respiratory Rate 18 04/15/2024 3:35 AM MASTER FIRE CONTROL TECHNICIAN Oxygen Saturation 95% 04/15/2024 3:35 AM MASTER FIRE CONTROL TECHNICIAN Inhaled Oxygen Concentration - - Weight 149 kg (328 lb 7.8 oz) 04/11/2024 11:32 P M MASTER FIRE CONTROL TECHNICIAN Height 190.5 cm (6' 3 ) 04/11/2024 11:32 PM MASTER FIRE CONTROL TECHNICIAN Body Mass Index 41.06 04/11/2024 11:32 PM MASTER FIRE CONTROL TECHNICIAN Plan of Treatment Not on file Procedures * The patient is currently admitted. The information in this section might not be complete until the patient is discharged. Procedure Name Priority Date/Time Associated Diagnosis Comments C. DIFFICILE TESTING Routine 04/12/2024 12:18 AM MASTER FIRE CONTROL TECHNICIAN INFECTION PREVENTION VRE CULTURE Routine 04/12/2024 12:15 AM MASTER FIRE CONTROL TECHNICIAN POCT GLUCOSE DEVICE Routine 04/11/2024 1 1:04 AM MASTER FIRE CONTROL TECHNICIAN POCT GLUCOSE DEVICE Routine 04/11/2024 8 :04 AM MASTER FIRE CONTROL TECHNICIAN CRITICAL CARE Routine 04/11/2024 7:07 AM MASTER FIRE CONTROL TECHNICIAN Necrotizing fasciitis (HCC) POCT GLUCOSE DEVICE Routine 04/11/2024 5 :45 AM MASTER FIRE CONTROL TECHNICIAN EXTUBATION STAT 04/11/2024 5:34 AM MASTER FIRE CONTROL TECHNICIAN POCT GLUCOSE DEVICE Routine 04/11/2024 4 :04 AM MASTER FIRE CONTROL TECHNICIAN POCT GLUCOSE DEVICE Routine 04/11/2024 2 :05 AM MASTER FIRE CONTROL TECHNICIAN POCT GLUCOSE DEVICE Routine 04/11/2024 1 2:09 AM MASTER FIRE CONTROL TECHNICIAN POCT GLUCOSE DEVICE Routine 04/10/2024 1 0:49 PM MASTER FIRE CONTROL TECHNICIAN POCT GLUCOSE DEVICE Routine 04/10/2024 9 :01 PM MASTER FIRE CONTROL TECHNICIAN CRITICAL CARE Routine 04/10/2024 8:27 PM MASTER FIRE CONTROL TECHNICIAN Necrotizing fasciitis (HCC) EGFR Routine 04/10/2024 7:15 PM MASTER FIRE CONTROL TECHNICIAN CALCIUM, IONIZED Routine 04/10/2024 7:15 PM MASTER FIRE CONTROL TECHNICIAN PHOSPHORUS Routine 04/10/2024 7:15 PM MASTER FIRE CONTROL TECHNICIAN MAGNESIUM Routine 04/10/2024 7:15 PM MASTER FIRE CONTROL TECHNICIAN BASIC METABOLIC PANEL Routine 04/10/2024 7:15 PM MASTER FIRE CONTROL TECHNICIAN CBC WITHOUT DIFFERENTIAL Routine 04/10/2024 7:15 PM MASTER FIRE CONTROL TECHNICIAN POCT GLUCOSE DEVICE Routine 04/10/2024 7 :07 PM MASTER FIRE CONTROL TECHNICIAN XR CHEST 1 VIEW IP Routine 04/10/2024 6:22 PM MASTER FIRE CONTROL TECHNICIAN POCT GLUCOSE DEVICE Routine 04/10/2024 5 :09 PM MASTER FIRE CONTROL TECHNICIAN POCT GLUCOSE DEVICE Routine 04/10/2024 2 :43 PM MASTER FIRE CONTROL TECHNICIAN POCT GLUCOSE DEVICE Routine 04/10/2024 1 :14 PM MASTER FIRE CONTROL TECHNICIAN CRITICAL CARE Routine 04/10/2024 12:04 PM MASTER FIRE CONTROL TECHNICIAN Necrotizing fasciitis (HCC) POCT GLUCOSE DEVICE Routine 04/10/2024 1 1:40 AM MASTER FIRE CONTROL TECHNICIAN POCT GLUCOSE DEVICE Routine 04/10/2024 1 0:13 AM MASTER FIRE CONTROL TECHNICIAN POCT GLUCOSE DEVICE Routine 04/10/2024 9 :15 AM MASTER FIRE CONTROL TECHNICIAN POCT GLUCOSE DEVICE Routine 04/10/2024 8 :05 AM MASTER FIRE CONTROL TECHNICIAN POCT GLUCOSE DEVICE Routine 04/10/2024 7 :26 AM MASTER FIRE CONTROL TECHNICIAN POCT GLUCOSE DEVICE Routine 04/10/2024 5 :54 AM MASTER FIRE CONTROL TECHNICIAN POCT GLUCOSE DEVICE Routine 04/10/2024 4 :59 AM MASTER FIRE CONTROL TECHNICIAN POCT GLUCOSE DEVICE Routine 04/10/2024 4 :02 AM MASTER FIRE CONTROL TECHNICIAN POCT GLUCOSE DEVICE Routine 04/10/2024 2 :57 AM MASTER FIRE CONTROL TECHNICIAN POCT GLUCOSE DEVICE Routine 04/10/2024 1 :52 AM MASTER FIRE CONTROL TECHNICIAN POCT GLUCOSE DEVICE Routine 04/10/2024 1 :05 AM MASTER FIRE CONTROL TECHNICIAN POCT GLUCOSE DEVICE Routine 04/10/2024 1 2:10 AM MASTER FIRE CONTROL TECHNICIAN BLOOD CULTURE Routine 04/10/2024 12:08 AM MASTER FIRE CONTROL TECHNICIAN BLOOD CULTURE Routine 04/10/2024 12:08 AM MASTER FIRE CONTROL TECHNICIAN OXYHEMOGLOBIN, CENTRAL VENOUS Routine 04/09/2024 11:06 PM MASTER FIRE CONTROL TECHNICIAN POCT GLUCOSE DEVICE Routine 04/09/2024 1 1:00 PM MASTER FIRE CONTROL TECHNICIAN POCT GLUCOSE DEVICE Routine 04/09/2024 1 0:12 PM MASTER FIRE CONTROL TECHNICIAN POCT GLUCOSE DEVICE Routine 04/09/2024 8 :58 PM MASTER FIRE CONTROL TECHNICIAN POCT GLUCOSE DEVICE Routine 04/09/2024 8 :05 PM MASTER FIRE CONTROL TECHNICIAN CRITICAL CARE Routine 04/09/2024 7:29 PM MASTER FIRE CONTROL TECHNICIAN Necrotizing fasciitis (HCC) EGFR Routine 04/09/2024 7:04 PM MASTER FIRE CONTROL TECHNICIAN LACTATE, WHOLE BLOOD Routine 04/09/2024 7:04 PM MASTER FIRE CONTROL TECHNICIAN CALCIUM, IONIZED Routine 04/09/2024 7:04 PM MASTER FIRE CONTROL TECHNICIAN PHOSPHORUS Routine 04/09/2024 7:04 PM MASTER FIRE CONTROL TECHNICIAN MAGNESIUM Routine 04/09/2024 7:04 PM MASTER FIRE CONTROL TECHNICIAN BASIC METABOLIC PANEL Routine 04/09/2024 7:04 PM MASTER FIRE CONTROL TECHNICIAN CBC WITHOUT DIFFERENTIAL Routine 04/09/2024 7:04 PM MASTER FIRE CONTROL TECHNICIAN POCT GLUCOSE DEVICE Routine 04/09/2024 7 :03 PM MASTER FIRE CONTROL TECHNICIAN POCT GLUCOSE DEVICE Routine 04/09/2024 6 :04 PM MASTER FIRE CONTROL TECHNICIAN POCT GLUCOSE DEVICE Routine 04/09/2024 5 :02 PM MASTER FIRE CONTROL TECHNICIAN POCT GLUCOSE DEVICE Routine 04/09/2024 3 :49 PM MASTER FIRE CONTROL TECHNICIAN POCT GLUCOSE DEVICE Routine 04/09/2024 2 :45 PM MASTER FIRE CONTROL TECHNICIAN POCT GLUCOSE DEVICE Routine 04/09/2024 1 :55 PM MASTER FIRE CONTROL TECHNICIAN POCT GLUCOSE DEVICE Routine 04/09/2024 1 :12 PM MASTER FIRE CONTROL TECHNICIAN POCT GLUCOSE DEVICE Routine 04/09/2024 1 1:52 AM MASTER FIRE CONTROL TECHNICIAN DEBRIDEMENT WOUND 04/09/2024 11: 05 AM MASTER FIRE CONTROL TECHNICIAN Necrotizing fasciitis (HCC) POCT GLUCOSE DEVICE Routine 04/09/2024 9 :53 AM MASTER FIRE CONTROL TECHNICIAN TRANSTHORACIC ECHO (TTE) COMPLETE W DOPPLER/CF W CONTRAST Routine 04/09/2024 9:50 AM MASTER FIRE CONTROL TECHNICIAN CRITICAL CARE Routine 04/09/2024 8:44 AM MASTER FIRE CONTROL TECHNICIAN Necrotizing fasciitis (HCC) POCT GLUCOSE DEVICE Routine 04/09/2024 8 :04 AM MASTER FIRE CONTROL TECHNICIAN POCT GLUCOSE DEVICE Routine 04/09/2024 7 :03 AM MASTER FIRE CONTROL TECHNICIAN POCT GLUCOSE DEVICE Routine 04/09/2024 6 :00 AM MASTER FIRE CONTROL TECHNICIAN XR CHEST 1 VIEW ED Urgent/IP Urgent 04/09/2024 5:46 AM MASTER FIRE CONTROL TECHNICIAN XR ABDOMEN AP 1 VIEW ED Urgent/IP Urgent 04/09/2024 5:45 AM MASTER FIRE CONTROL TECHNICIAN POCT GLUCOSE DEVICE Routine 04/09/2024 5 :00 AM MASTER FIRE CONTROL TECHNICIAN LIPID PANEL STAT 04/09/2024 4:57 AM MASTER FIRE CONTROL TECHNICIAN TRIGLYCERIDES STAT 04/09/2024 4:57 AM MASTER FIRE CONTROL TECHNICIAN EGFR STAT 04/09/2024 4:57 AM MASTER FIRE CONTROL TECHNICIAN POTASSIUM, WHOLE BLOOD STAT 04/09/2024 4:57 AM MASTER FIRE CONTROL TECHNICIAN PHOSPHORUS STAT 04/09/2024 4:57 AM MASTER FIRE CONTROL TECHNICIAN MAGNESIUM STAT 04/09/2024 4:57 AM MASTER FIRE CONTROL TECHNICIAN CALCIUM, IONIZED STAT 04/09/2024 4:57 AM MASTER FIRE CONTROL TECHNICIAN CBC WITHOUT DIFFERENTIAL STAT 04/09/2024 4:57 AM MASTER FIRE CONTROL TECHNICIAN COMPREHENSIVE METABOLIC PANEL STAT 04/09/2024 4:57 AM MASTER FIRE CONTROL TECHNICIAN PROTIME-INR STAT 04/09/2024 4:57 AM MASTER FIRE CONTROL TECHNICIAN LACTATE, WHOLE BLOOD STAT 04/09/2024 4:57 AM MASTER FIRE CONTROL TECHNICIAN BLOOD GAS, ARTERIAL STAT 04/09/2024 4 :57 AM MASTER FIRE CONTROL TECHNICIAN SEPSIS LACTATE WITH REFLEX Timed 04/09/2024 4:57 AM MASTER FIRE CONTROL TECHNICIAN CRITICAL CARE Routine 04/09/2024 4:53 AM MASTER FIRE CONTROL TECHNICIAN MYCOLOGY (FUNGAL) CULTURE AND STAIN Routine 04/09/2024 4:22 AM MASTER FIRE CONTROL TECHNICIAN TISSUE AEROBIC AND ANAEROBIC CULTURE AND GRAM STAIN Routine 04/09/2024 4:22 AM MASTER FIRE CONTROL TECHNICIAN MYCOLOGY (FUNGAL) CULTURE AND STAIN Routine 04/09/2024 4:13 AM MASTER FIRE CONTROL TECHNICIAN AEROBIC AND ANAEROBIC CULTURE AND GRAM STAIN Routine 04/09/2024 4:13 AM MASTER FIRE CONTROL TECHNICIAN TRANSFUSE RED BLOOD CELLS Timed 04/09/2024 4:10 AM MASTER FIRE CONTROL TECHNICIAN POC BLOOD GAS AND CHEMISTRIES, ARTERIAL Routine 04/09/2024 3:53 AM MASTER FIRE CONTROL TECHNICIAN TRANSFUSE RED BLOOD CELLS Timed 04/09/2024 3:40 AM MASTER FIRE CONTROL TECHNICIAN ANESTHESIA INTUBATION Routine 04/09/2024 3:30 AM MASTER FIRE CONTROL TECHNICIAN ANESTHESIA ARTERIAL LINE PLACEMENT Routine 04/09/2024 3:24 AM MASTER FIRE CONTROL TECHNICIAN PREPARE RBC STAT 04/09/2024 3:12 AM MASTER FIRE CONTROL TECHNICIAN POC BLOOD GAS AND CHEMISTRIES, ARTERIAL Routine 04/09/2024 3:09 AM MASTER FIRE CONTROL TECHNICIAN DEBRIDEMENT WOUND 04/09/2024 2:4 6 AM MASTER FIRE CONTROL TECHNICIAN Necrotizing fasciitis (HCC) B CHECK SAMPLE STAT 04/09/2024 2:42 AM MASTER FIRE CONTROL TECHNICIAN VA CRITICAL CARE ILL/INJURED PATIENT INIT 30-74 MIN Routine 04/09/2024 2:24 AM MASTER FIRE CONTROL TECHNICIAN ECG 12-LEAD STAT 04/09/2024 2:20 AM MASTER FIRE CONTROL TECHNICIAN PREPARE RBC Timed 04/09/2024 2:10 AM MASTER FIRE CONTROL TECHNICIAN URINALYSIS, MICROSCOPIC ONLY STAT 04/09/2024 1:26 AM MASTER FIRE CONTROL TECHNICIAN URINE CULTURE STAT 04/09/2024 1:26 AM MASTER FIRE CONTROL TECHNICIAN URINALYSIS AND REFLEX TO MICROSCOPIC AND CULTURE STAT 04/09/2024 1:26 AM MASTER FIRE CONTROL TECHNICIAN XR CHEST 1 VIEW ED 04/09/2024 12:57 AM MASTER FIRE CONTROL TECHNICIAN MRSA ONLY (STAPHYLOCOCCUS AUREUS) CULTURE Routine 04/09/2024 12:40 AM MASTER FIRE CONTROL TECHNICIAN CT BODY OUTSIDE CONSULT Routine 04/09/2024 12:36 AM MASTER FIRE CONTROL TECHNICIAN XR TRANSFER OF OUTSIDE FILMS Routine 04/09/2024 12:34 AM MASTER FIRE CONTROL TECHNICIAN POCT GLUCOSE DEVICE Routine 04/09/2024 1 2:33 AM MASTER FIRE CONTROL TECHNICIAN HEMOGLOBIN A1C STAT 04/09/2024 12:33 AM MASTER FIRE CONTROL TECHNICIAN EGFR STAT 04/09/2024 12:33 AM MASTER FIRE CONTROL TECHNICIAN DIFFERENTIAL AUTO STAT 04/09/2024 12: 33 AM MASTER FIRE CONTROL TECHNICIAN SEPSIS LACTATE WITH REFLEX STAT 04/09/2024 12:33 AM MASTER FIRE CONTROL TECHNICIAN BLOOD GAS, VENOUS STAT 04/09/2024 12: 33 AM MASTER FIRE CONTROL TECHNICIAN APTT STAT 04/09/2024 12:33 AM MASTER FIRE CONTROL TECHNICIAN TYPE AND SCREEN STAT 04/09/2024 12:33 AM MASTER FIRE CONTROL TECHNICIAN PROTIME-INR STAT 04/09/2024 12:33 AM MASTER FIRE CONTROL TECHNICIAN COMPREHENSIVE METABOLIC PANEL STAT 04/09/2024 12:33 AM MASTER FIRE CONTROL TECHNICIAN CBC WITH AUTO DIFFERENTIAL STAT 04/09/2024 12:33 AM MASTER FIRE CONTROL TECHNICIAN BLOOD CULTURE STAT 04/09/2024 12:33 AM MASTER FIRE CONTROL TECHNICIAN BLOOD CULTURE STAT 04/09/2024 12:33 AM MASTER FIRE CONTROL TECHNICIAN XR TRANSFER OF OUTSIDE FILMS Critical/Life-T hreatening 04/09/2024 12:21 AM MASTER FIRE CONTROL TECHNICIAN CARDIOLOGY DOCUMENT SCAN Routine 03/27/2024 3:07 PM MASTER FIRE CONTROL TECHNICIAN CARDIOLOGY DOCUMENT SCAN Routine 03/24/2024 3:05 PM MASTER FIRE CONTROL TECHNICIAN from Last 3 Months Results * C. difficile testing Stool (04/12/2024 12:18 AM MASTER FIRE CONTROL TECHNICIAN) [facility] Result Positive Negative Toxin Result Negative Negative [facility] C. diff result Negative, free toxin. Negative, free toxin [facility] C. diff interp [facility]+/toxin- results almost never represent true C. difficile infection (CDI). Results may represent ??colonization with C. difficile without CDI, detection of a bacteria other than toxigenic C. difficile, or a false negative toxin assay. If there is a high index of suspicion for CDI, additional testing by PCR is available upon request. [facility] Stool 04/12/2024 12:1 8 AM MASTER FIRE CONTROL TECHNICIAN 04/12/2024 1:56 AM MASTER FIRE CONTROL TECHNICIAN Narrative [facility] - 04/12/2024 5:16 AM MASTER FIRE CONTROL TECHNICIAN Testing for C. difficile is not recommended within 4 days of a negative result, 10 days of a positive, or 24 hours after laxative administration. If this order is clinically indicated, contact the lab and enter the passcode to complete this order.->[id number]ent[address] [facility] LAB MICROBIOLOGY - GENERA L ORDERABLES Final Result [facility] Department [place] [address] * (ABNORMAL) Infection Prevention VRE Culture Stool (04/12/2024 12:15 AM MASTER FIRE CONTROL TECHNICIAN) Pathologist [facility] Report Final Report: Enterococcus species, vancomycin resistant (.) Organism ENTEROCOCCUS SPECIES, VANCOMYCIN RESISTANT [facility] Stool 04/12/2024 12:1 5 AM MASTER FIRE CONTROL TECHNICIAN 04/12/2024 6:10 AM MASTER FIRE CONTROL TECHNICIAN Narrative [facility] - 04/13/2024 12:13 PM MASTER FIRE CONTROL TECHNICIAN Surveillance culture for Infection Prevention purposes only; results indicate colonization, not infection requiring treatment. Testing performed by [facility] Microbiology Laboratory ([phone]). Baldomero Weldon DO LAB MICROBIOLOGY - GENE RAL ORDERABLES Final Result Performing Organization Address [facility] Co de Phone Number [facility] [place] [address] * POCT glucose (04/11/2024 11:04 AM MASTER FIRE CONTROL TECHNICIAN) Glucose, POC 114 70 - 199 mg/dL Blood 04/11/2024 11:0 4 AM MASTER FIRE CONTROL TECHNICIAN 04/11/2024 11:04 AM MASTER FIRE CONTROL TECHNICIAN Baldomero Derrell Weldon DO LAB POCT ORDERABLES - D EVICE Final Result Performing Organization Address [facility] de Phone Number [facility] [place] [address] * POCT glucose (04/11/2024 8:04 AM MASTER FIRE CONTROL TECHNICIAN) Glucose, POC 91 70 - 199 mg/dL Blood 04/11/2024 8:04 AM MASTER FIRE CONTROL TECHNICIAN 04/11/2024 8:04 AM MASTER FIRE CONTROL TECHNICIAN Baldomero Weldon DO LAB POCT ORDERABLES - D EVICE Final Result Performing Organization Address [facility] [place] [address] * Critical Care (04/11/2024 7:07 AM MASTER FIRE CONTROL TECHNICIAN) Narrative Emil Branham MD - 04/11/2024 7:07 AM MASTER FIRE CONTROL TECHNICIAN Ever Lentz DNP ? 04/11/2024 ??5:22 PM [...] plan with the ICU team and other medical/cardiology consultant staff, making frequent assessments and decisions [...] Result * POCT glucose (04/11/2024 5:45 AM MASTER FIRE CONTROL TECHNICIAN) Glucose, POC 103 70 - 199 mg/dL Blood 04/11/2024 5:45 AM MASTER FIRE CONTROL TECHNICIAN 04/11/2024 5:45 AM MASTER FIRE CONTROL TECHNICIAN Baldomero Weldon DO LAB POCT ORDERABLES - D EVICE Final Result [facility] Department [place] [address] * POCT glucose (04/11/2024 4:04 AM MASTER FIRE CONTROL TECHNICIAN) Glucose, POC 113 70 - 199 mg/dL Blood 04/11/2024 4:04 AM MASTER FIRE CONTROL TECHNICIAN 04/11/2024 4:04 AM MASTER FIRE CONTROL TECHNICIAN Baldomero Weldon DO LAB POCT ORDERABLES - D EVICE Final Result Performing Organization Address City/[facility]/[place] [address] * POCT glucose (04/11/2024 2:05 AM MASTER FIRE CONTROL TECHNICIAN) Glucose, POC 112 70 - 199 mg/dL Blood 04/11/2024 2:05 AM MASTER FIRE CONTROL TECHNICIAN 04/11/2024 2:05 AM MASTER FIRE CONTROL TECHNICIAN us Baldomero Weldon DO LAB POCT ORDERABLES - D EVICE Final Result Performing Organization Address [facility] [place] [address] * POCT glucose (04/11/2024 12:09 AM MASTER FIRE CONTROL TECHNICIAN) Glucose, POC 120 70 - 199 mg/dL Blood 04/11/2024 12:0 9 AM MASTER FIRE CONTROL TECHNICIAN 04/11/2024 12:09 AM MASTER FIRE CONTROL TECHNICIAN us Baldomero Weldon DO LAB POCT ORDERABLES - D EVICE Final Result Performing Organization Address [facility] Co de Phone Number [facility] [place] [address] * POCT glucose (04/10/2024 10:49 PM MASTER FIRE CONTROL TECHNICIAN) Glucose, POC 125 70 - 199 mg/dL Blood 04/10/2024 10:4 9 PM MASTER FIRE CONTROL TECHNICIAN 04/10/2024 10:49 PM MASTER FIRE CONTROL TECHNICIAN us Baldomero Weldon DO LAB POCT ORDERABLES - D EVICE Final Result Performing Organization Address City/[facility] Co de Phone Number [facility] [place] [address] * POCT glucose (04/10/2024 9:01 PM MASTER FIRE CONTROL TECHNICIAN) Glucose, POC 157 70 - 199 mg/dL Blood 04/10/2024 9:01 PM MASTER FIRE CONTROL TECHNICIAN 04/10/2024 9:01 PM MASTER FIRE CONTROL TECHNICIAN us Baldomero Weldon DO LAB POCT ORDERABLES - D EVICE Final Result [facility] Department [place] [address] * Critical Care (04/10/2024 8:27 PM MASTER FIRE CONTROL TECHNICIAN) Narrative Francisco Redman MD - 04/10/2024 8:27 PM MASTER FIRE CONTROL TECHNICIAN Neymar Benavides PA ? 04/11/2024 ??4:41 AM Critical Care [...] plan with the ICU team and other medical/cardiology consultant staff, making frequent assessments and decisions [...] Final Result * eGFR (04/10/2024 7:15 PM MASTER FIRE CONTROL TECHNICIAN) eGFR 63 >=60 mL/min/1. 73 m2 Comment: [...] last reviewed 2021. Blood 04/10/2024 7:15 PM MASTER FIRE CONTROL TECHNICIAN 04/10/2024 7:30 PM MASTER FIRE CONTROL TECHNICIAN us Devora Perez THREADER OPERATOR LAB BLOOD ORDERABLES Final Result [facility] [place] [address] * Calcium, ionized (04/10/2024 7:15 PM MASTER FIRE CONTROL TECHNICIAN) Pathologist [facility] Calcium, Ionized 4.52 4.50 - 5.10 mg/dL Blood 04/10/2024 7:15 PM MASTER FIRE CONTROL TECHNICIAN 04/10/2024 7:24 PM MASTER FIRE CONTROL TECHNICIAN us Devora Ortez THREADER OPERATOR LAB BLOOD ORDERABLES Final Result Performing Organization Address [facility] Co de Phone Number [facility] [place] [address] * (ABNORMAL) CBC without differential (04/10/2024 7:15 PM MASTER FIRE CONTROL TECHNICIAN) WBC 17.7(H) 3.8 - 9.9 K/cumm Hgb 7.9(L) 13.0 - 17.5 g/dL [facility] Hct 23.3(L) 38.9 - 50.3 % [facility] Plt 266 150 - 400 K/cumm [facility] MPV 10.5 9.1 - 12.3 fL [facility] RBC 2.68(L) 4.30 - 5.80 M/cumm [facility] MCV 86.9 81.3 - 96.4 fL [facility] MCH 29.5 27.1 - 33.3 pg [facility] MCHC 33.9 32.3 - 35.7 g/dL [facility] RDW CV 17.9(H) 11.1 - 14.9 % [facility] RDW SD 56.8(H) 35.7 - 48.1 fL [facility] NRBC abs 0.00 0.00 - 0.01 K/cumm [facility] Blood 04/10/2024 7:15 PM MASTER FIRE CONTROL TECHNICIAN 04/10/2024 7:30 PM MASTER FIRE CONTROL TECHNICIAN Devora Ortez THREADER OPERATOR LAB BLOOD ORDERABLES Final Result [facility] [place] [address] * (ABNORMAL) Phosphorus (04/10/2024 7:15 PM MASTER FIRE CONTROL TECHNICIAN) Phosphorus, pl 2.2(L) 2.3 - 4.5 mg/dL Blood 04/10/2024 7:15 PM MASTER FIRE CONTROL TECHNICIAN 04/10/2024 7:30 PM MASTER FIRE CONTROL TECHNICIAN eDvora Ortez THREADER OPERATOR LAB BLOOD ORDERABLES Final Result Performing Organization Address City/[facility]/ZIP Co de Phone Number [facility] Department [place] [address] * Magnesium (04/10/2024 7:15 PM MASTER FIRE CONTROL TECHNICIAN) Pathologist [facility] Magnesium 1.9 1.4 - 2.5 mg/dL Blood 04/10/2024 7:15 PM MASTER FIRE CONTROL TECHNICIAN 04/10/2024 7:30 PM MASTER FIRE CONTROL TECHNICIAN Devora Torres [facility] THREADER OPERATOR LAB BLOOD ORDERABLES Final Result Performing Organization Address [facility] de Phone Number [facility] Department [place] [address] * (ABNORMAL) Basic metabolic panel (04/10/2024 7:15 PM MASTER FIRE CONTROL TECHNICIAN) Pathologist [facility] Sodium 134(L) 135 - 145 mmol/L Potassium, pl 3.8 3.3 - 4.9 mmol/L [facility] Chloride 102 97 - 110 mmol/L [facility] CO2 26 22 - 32 mmol/L [facility] Anion gap 6 2 - 15 mmol/L [facility] BUN 37(H) 6 - 25 mg/dL [facility] Creatinine 1.21 0.80 - 1.30 mg/dL [facility] Glucose 151 70 - 199 mg/dL [facility] Comment: Interpretive Data Fasting glucose >/= 126 [...] 2022. Calcium 8.0(L) 8.5 - 10.3 mg/dL [facility] Blood 04/10/2024 7:15 PM MASTER FIRE CONTROL TECHNICIAN 04/10/2024 7:30 PM MASTER FIRE CONTROL TECHNICIAN us Devora Torres Ana THREADER OPERATOR LAB BLOOD ORDERABLES Final Result Performing Organization Address City/[facility] Co de Phone Number [facility] [place] [address] * POCT glucose (04/10/2024 7:07 PM MASTER FIRE CONTROL TECHNICIAN) [facility] Glucose, POC 155 70 - 199 mg/dL Blood 04/10/2024 7:07 PM MASTER FIRE CONTROL TECHNICIAN 04/10/2024 7:07 PM MASTER FIRE CONTROL TECHNICIAN us Baldomero Derrell Weldon DO LAB POCT ORDERABLES - D EVICE Final Result Performing Organization Address [facility] de Phone Number [facility] Department [place] [address] * XR Chest 1 View (04/10/2024 6:22 PM MASTER FIRE CONTROL TECHNICIAN) Anatomical Region Laterality Modality Body, Chest N/A Computed Radiogr aphy 04/11/2024 7:50 AM MASTER FIRE CONTROL TECHNICIAN Impressions 04/11/2024 7:50 AM MASTER FIRE CONTROL TECHNICIAN Comparison is made to chest radiograph dated [...] Lana Alejo M.D. Narrative 04/11/2024 7:50 AM MASTER FIRE CONTROL TECHNICIAN EXAMINATION: 1 view chest radiograph Procedure Note Lana Alejo MD - 04/11/2024 EXAMINATION: 1 view [...] silhouette. Electronically signed by: Lana Alejo M.D. Ever Lentz DNP IMG XR PROCEDURES Final R esult * POCT glucose (04/10/2024 5:09 PM MASTER FIRE CONTROL TECHNICIAN) Glucose, POC 135 70 - 199 mg/dL Blood 04/10/2024 5:09 PM MASTER FIRE CONTROL TECHNICIAN 04/10/2024 5:09 PM MASTER FIRE CONTROL TECHNICIAN Baldomero Weldon DO LAB POCT ORDERABLES - D EVICE Final Result Performing Organization Address [facility] de Phone Number [facility] [place] [address] * POCT glucose (04/10/2024 2:43 PM MASTER FIRE CONTROL TECHNICIAN) Glucose, POC 144 70 - 199 mg/dL Blood 04/10/2024 2:43 PM MASTER FIRE CONTROL TECHNICIAN 04/10/2024 2:43 PM MASTER FIRE CONTROL TECHNICIAN Baldomero Weldon DO LAB POCT ORDERABLES - D EVICE Final Result Performing Organization Address [facility] Co de Phone Number [facility] [place] [address] * POCT glucose (04/10/2024 1:14 PM MASTER FIRE CONTROL TECHNICIAN) Glucose, POC 115 70 - 199 mg/dL Blood 04/10/2024 1:14 PM MASTER FIRE CONTROL TECHNICIAN 04/10/2024 1:14 PM MASTER FIRE CONTROL TECHNICIAN us Baldomero Weldon DO LAB POCT ORDERABLES - D EVICE Final Result Performing Organization Address City/State/[facility] Co de Phone Number [facility] Department [place] [address] * Critical Care (04/10/2024 12:04 PM MASTER FIRE CONTROL TECHNICIAN) Narrative Emil Branham MD - 04/10/2024 12:04 PM MASTER FIRE CONTROL TECHNICIAN Ever Lentz DNP ? 04/10/2024 ??5:52 PM [...] plan with the ICU team and other medical/cardiology consultant staff, making frequent assessments and decisions [...] Result * POCT glucose (04/10/2024 11:40 AM MASTER FIRE CONTROL TECHNICIAN) Glucose, POC 131 70 - 199 mg/dL Blood 04/10/2024 11:4 0 AM MASTER FIRE CONTROL TECHNICIAN 04/10/2024 11:40 AM MASTER FIRE CONTROL TECHNICIAN us Baldomero Weldon DO LAB POCT ORDERABLES - D EVICE Final Result Performing Organization Address [facility] de Phone Number [facility] [place] [address] * POCT glucose (04/10/2024 10:13 AM MASTER FIRE CONTROL TECHNICIAN) Glucose, POC 142 70 - 199 mg/dL Blood 04/10/2024 10:1 3 AM MASTER FIRE CONTROL TECHNICIAN 04/10/2024 10:13 AM MASTER FIRE CONTROL TECHNICIAN Baldomero Weldon DO LAB POCT ORDERABLES - D EVICE Final Result Performing Organization Address [facility] de Phone Number [facility] [place] [address] * POCT glucose (04/10/2024 9:15 AM MASTER FIRE CONTROL TECHNICIAN) Glucose, POC 137 70 - 199 mg/dL Blood 04/10/2024 9:15 AM MASTER FIRE CONTROL TECHNICIAN 04/10/2024 9:15 AM MASTER FIRE CONTROL TECHNICIAN Baldomero Weldon DO LAB POCT ORDERABLES - D EVICE Final Result Performing Organization Address [facility] de Phone Number [facility] [place] [address] * POCT glucose (04/10/2024 8:05 AM MASTER FIRE CONTROL TECHNICIAN) Glucose, POC 123 70 - 199 mg/dL Blood 04/10/2024 8:05 AM MASTER FIRE CONTROL TECHNICIAN 04/10/2024 8:05 AM MASTER FIRE CONTROL TECHNICIAN Baldomero Derrell Shiraz DO LAB POCT ORDERABLES - D EVICE Final Result Performing Organization Address [facility]/[place] [address] * POCT glucose (04/10/2024 7:26 AM MASTER FIRE CONTROL TECHNICIAN) Glucose, POC 136 70 - 199 mg/dL Blood 04/10/2024 7:26 AM MASTER FIRE CONTROL TECHNICIAN 04/10/2024 7:26 AM MASTER FIRE CONTROL TECHNICIAN us Baldomero Daileykeny Weldon DO LAB POCT ORDERABLES - D EVICE Final Result Performing Organization Address [facility] [place] [address] * POCT glucose (04/10/2024 5:54 AM MASTER FIRE CONTROL TECHNICIAN) Glucose, POC 123 70 - 199 mg/dL Blood 04/10/2024 5:54 AM MASTER FIRE CONTROL TECHNICIAN 04/10/2024 5:54 AM MASTER FIRE CONTROL TECHNICIAN us Baldomero Derrell Weldon DO LAB POCT ORDERABLES - D EVICE Final Result Performing Organization Address [facility] Co de Phone Number [facility] [place] [address] * POCT glucose (04/10/2024 4:59 AM MASTER FIRE CONTROL TECHNICIAN) Glucose, POC 134 70 - 199 mg/dL Blood 04/10/2024 4:59 AM MASTER FIRE CONTROL TECHNICIAN 04/10/2024 4:59 AM MASTER FIRE CONTROL TECHNICIAN us Baldomero Daileykeny Weldon DO LAB POCT ORDERABLES - D EVICE Final Result Performing Organization Address City/[facility]/ZIP Co de Phone Number [facility] [place] [address] * POCT glucose (04/10/2024 4:02 AM MASTER FIRE CONTROL TECHNICIAN) Glucose, POC 149 70 - 199 mg/dL Blood 04/10/2024 4:02 AM MASTER FIRE CONTROL TECHNICIAN 04/10/2024 4:02 AM MASTER FIRE CONTROL TECHNICIAN Baldomero Street[place] DO LAB POCT ORDERABLES - D EVICE Final Result Performing Organization Address [facility] Co de Phone Number [facility] [place] [address] * POCT glucose (04/10/2024 2:57 AM MASTER FIRE CONTROL TECHNICIAN) Glucose, POC 177 70 - 199 mg/dL Blood 04/10/2024 2:57 AM MASTER FIRE CONTROL TECHNICIAN 04/10/2024 2:57 AM MASTER FIRE CONTROL TECHNICIAN Baldomero Derrell Weldon DO LAB POCT ORDERABLES - D EVICE Final Result Performing Organization Address [facility] Co de Phone Number [facility] [place] [address] * POCT glucose (04/10/2024 1:52 AM MASTER FIRE CONTROL TECHNICIAN) Glucose, POC 171 70 - 199 mg/dL Blood 04/10/2024 1:52 AM MASTER FIRE CONTROL TECHNICIAN 04/10/2024 1:52 AM MASTER FIRE CONTROL TECHNICIAN Baldomero [address] DO LAB POCT ORDERABLES - D EVICE Final Result Performing Organization Address [facility] [place] [address] * POCT glucose (04/10/2024 1:05 AM MASTER FIRE CONTROL TECHNICIAN) Glucose, POC 171 70 - 199 mg/dL Blood 04/10/2024 1:05 AM MASTER FIRE CONTROL TECHNICIAN 04/10/2024 1:05 AM MASTER FIRE CONTROL TECHNICIAN Baldomreo Weldon DO LAB POCT ORDERABLES - D EVICE Final Result Performing Organization Address City/[facility]/ZIP Co de Phone Number [facility] [place] [address] * POCT glucose (04/10/2024 12:10 AM MASTER FIRE CONTROL TECHNICIAN) Glucose, POC 151 70 - 199 mg/dL Blood 04/10/2024 12:1 0 AM MASTER FIRE CONTROL TECHNICIAN 04/10/2024 12:10 AM MASTER FIRE CONTROL TECHNICIAN Baldomero Weldon DO LAB POCT ORDERABLES - D EVICE Final Result Performing Organization Address [facility] de Phone Number [facility] Department [place] [address] * Blood culture Blood (04/10/2024 12:08 AM MASTER FIRE CONTROL TECHNICIAN) Report Final Report: No growth Blood 04/10/2024 12:0 8 AM MASTER FIRE CONTROL TECHNICIAN 04/10/2024 12:36 AM MASTER FIRE CONTROL TECHNICIAN Narrative [facility] - 04/14/2024 7:00 AM MASTER FIRE CONTROL TECHNICIAN Collection->Peripheral 1. ?Blood cultures are incubated for [...] performance characteristics have been verified by the [facility] Microbiology Laboratory. For questions about this culture, contact the Microbiology Laboratory at [phone]. Interpretive data was last revised on 24. Devora Perez THREADER OPERATOR LAB MICROBIOLOGY - G ENERAL ORDERABLES Final Result [facility] Department [place] [address] * Blood culture Blood (04/10/2024 12:08 AM MASTER FIRE CONTROL TECHNICIAN) Report Final Report: No growth Blood 04/10/2024 12:0 8 AM MASTER FIRE CONTROL TECHNICIAN 04/10/2024 12:36 AM MASTER FIRE CONTROL TECHNICIAN Narrative [facility] - 04/14/2024 7:00 AM MASTER FIRE CONTROL TECHNICIAN Collection->Peripheral 1. ?Blood cultures are incubated for [...] performance characteristics have been verified by the [facility] Microbiology Laboratory. For questions about this culture, contact the Microbiology Laboratory at [phone]. Interpretive data was last revised on 24. us Devora Perez THREADER OPERATOR LAB MICROBIOLOGY - G ENERAL ORDERABLES Final Result Performing Organization Address [facility] [place] [address] * Oxyhemoglobin, central venous (04/09/2024 11:06 PM MASTER FIRE CONTROL TECHNICIAN) Oxyhemoglobin, CV 61.6 % Comment: Interpretive Data No reference range established. Current interpretive data was last revised 2019. Blood 04/09/2024 11:0 6 PM MASTER FIRE CONTROL TECHNICIAN 04/09/2024 11:31 PM MASTER FIRE CONTROL TECHNICIAN us Neymar CALLEJAS LAB BLOOD ORDERABLES Fi nal Result Performing Organization Address [facility] Co de Phone Number [facility] [place] [address] * POCT glucose (04/09/2024 11:00 PM MASTER FIRE CONTROL TECHNICIAN) Glucose, POC 101 70 - 199 mg/dL Blood 04/09/2024 11:0 0 PM MASTER FIRE CONTROL TECHNICIAN 04/09/2024 11:00 PM MASTER FIRE CONTROL TECHNICIAN us Baldomero Weldon DO LAB POCT ORDERABLES - D EVICE Final Result Performing Organization Address [facility] Co de Phone Number [facility] [place] [address] * POCT glucose (04/09/2024 10:12 PM MASTER FIRE CONTROL TECHNICIAN) Glucose, POC 96 70 - 199 mg/dL Blood 04/09/2024 10:1 2 PM MASTER FIRE CONTROL TECHNICIAN 04/09/2024 10:12 PM MASTER FIRE CONTROL TECHNICIAN Baldomero Weldon DO LAB POCT ORDERABLES - D EVICE Final Result Performing Organization Address [facility] Co de Phone Number [facility] [place] [address] * POCT glucose (04/09/2024 8:58 PM MASTER FIRE CONTROL TECHNICIAN) Glucose, POC 114 70 - 199 mg/dL Blood 04/09/2024 8:58 PM MASTER FIRE CONTROL TECHNICIAN 04/09/2024 8:58 PM MASTER FIRE CONTROL TECHNICIAN us Baldomero Derrell Weldon DO LAB POCT ORDERABLES - D EVICE Final Result Performing Organization Address [facility] [place] [address] * POCT glucose (04/09/2024 8:05 PM MASTER FIRE CONTROL TECHNICIAN) Glucose, POC 126 70 - 199 mg/dL Blood 04/09/2024 8:05 PM MASTER FIRE CONTROL TECHNICIAN 04/09/2024 8:05 PM MASTER FIRE CONTROL TECHNICIAN Baldomero Weldon DO LAB POCT ORDERABLES - D EVICE Final Result Performing Organization Address [facility] de Phone Number [facility] [place] [address] * Critical Care (04/09/2024 7:29 PM MASTER FIRE CONTROL TECHNICIAN) Narrative Francisco Redman MD - 04/09/2024 7:29 PM MASTER FIRE CONTROL TECHNICIAN Neymar Benavides PA ? 04/10/2024 ??4:53 AM [...] plan with the ICU team and other medical/cardiology consultant staff, making frequent assessments and decisions [...] Final Result * eGFR (04/09/2024 7:04 PM MASTER FIRE CONTROL TECHNICIAN) eGFR 63 >=60 mL/min/1. 73 m2 Comment: [...] last reviewed 2021. Blood 04/09/2024 7:04 PM MASTER FIRE CONTROL TECHNICIAN 04/09/2024 7:22 PM MASTER FIRE CONTROL TECHNICIAN Devora Perez THREADER OPERATOR LAB BLOOD ORDERABLES Final Result Performing Organization Address [facility] Co de Phone Number [facility] [place] [address] * Calcium, ionized (04/09/2024 7:04 PM MASTER FIRE CONTROL TECHNICIAN) [facility] Calcium, Ionized 4.61 4.50 - 5.10 mg/dL Blood 04/09/2024 7:04 PM MASTER FIRE CONTROL TECHNICIAN 04/09/2024 7:11 PM MASTER FIRE CONTROL TECHNICIAN Devora Ortez ADRIANO LAB BLOOD ORDERABLES Final Result Performing Organization Address [facility] de Phone Number [facility] Department [place] [address] * Lactate, whole blood (04/09/2024 7:04 PM MASTER FIRE CONTROL TECHNICIAN) [facility] Lactate, bld 1.9 0.7 - 2.0 mmol/L Blood 04/09/2024 7:04 PM MASTER FIRE CONTROL TECHNICIAN 04/09/2024 7:11 PM MASTER FIRE CONTROL TECHNICIAN Devora Perez NP LAB BLOOD ORDERABLES Final Result Performing Organization Address [facility] de Phone Number [facility] [place] [address] * (ABNORMAL) CBC without differential (04/09/2024 7:04 PM MASTER FIRE CONTROL TECHNICIAN) [facility] WBC 21.4(H) 3.8 - 9.9 K/cumm Hgb 7.6(L) 13.0 - 17.5 g/dL [facility] Hct 22.6(L) 38.9 - 50.3 % [facility] Plt 229 150 - 400 K/cumm [facility] MPV 9.9 9.1 - 12.3 fL [facility] RBC 2.58(L) 4.30 - 5.80 M/cumm [facility] MCV 87.6 81.3 - 96.4 fL [facility] MCH 29.5 27.1 - 33.3 pg [facility] MCHC 33.6 32.3 - 35.7 g/dL [facility] RDW CV 17.7(H) 11.1 - 14.9 % [facility] RDW SD 56.4(H) 35.7 - 48.1 fL [facility] NRBC abs 0.00 0.00 - 0.01 K/cumm [facility] Blood 04/09/2024 7:04 PM MASTER FIRE CONTROL TECHNICIAN 04/09/2024 7:14 PM MASTER FIRE CONTROL TECHNICIAN Devora Perez THREADER OPERATOR LAB BLOOD ORDERABLES Final Result [facility] [place] [address] * Phosphorus (04/09/2024 7:04 PM MASTER FIRE CONTROL TECHNICIAN) Phosphorus, pl 3.0 2.3 - 4.5 mg/dL Blood 04/09/2024 7:04 PM MASTER FIRE CONTROL TECHNICIAN 04/09/2024 7:11 PM MASTER FIRE CONTROL TECHNICIAN us Devora Perez THREADER OPERATOR LAB BLOOD ORDERABLES Final Result [facility] [place] [address] * Magnesium (04/09/2024 7:04 PM MASTER FIRE CONTROL TECHNICIAN) Magnesium 2.0 1.4 - 2.5 mg/dL Blood 04/09/2024 7:04 PM MASTER FIRE CONTROL TECHNICIAN 04/09/2024 7:11 PM MASTER FIRE CONTROL TECHNICIAN us Devora Perez THREADER OPERATOR LAB BLOOD ORDERABLES Final Result [facility] Department [place] [address] * (ABNORMAL) Basic metabolic panel (04/09/2024 7:04 PM MASTER FIRE CONTROL TECHNICIAN) Sodium 133(L) 135 - 145 mmol/L Potassium, pl 3.9 3.3 - 4.9 mmol/L [facility] Chloride 98 97 - 110 mmol/L [facility] CO2 24 22 - 32 mmol/L [facility] Anion gap 11 2 - 15 mmol/L [facility] BUN 33(H) 6 - 25 mg/dL [facility] Creatinine 1.20 0.80 - 1.30 mg/dL [facility] Glucose 128 70 - 199 mg/dL [facility] Comment: Interpretive Data Fasting glucose >/= 126 [...] 2022. Calcium 8.0(L) 8.5 - 10.3 mg/dL [facility] Blood 04/09/2024 7:04 PM MASTER FIRE CONTROL TECHNICIAN 04/09/2024 7:11 PM MASTER FIRE CONTROL TECHNICIAN us Devora Perez THREADER OPERATOR LAB BLOOD ORDERABLES Final Result [facility] Department [place] [address] * POCT glucose (04/09/2024 7:03 PM MASTER FIRE CONTROL TECHNICIAN) Glucose, POC 139 70 - 199 mg/dL Blood 04/09/2024 7:03 PM MASTER FIRE CONTROL TECHNICIAN 04/09/2024 7:03 PM MASTER FIRE CONTROL TECHNICIAN us Baldomero Weldon DO LAB POCT ORDERABLES - D EVICE Final Result Performing Organization Address [facility] Co de Phone Number [facility] [place] [address] * POCT glucose (04/09/2024 6:04 PM MASTER FIRE CONTROL TECHNICIAN) Glucose, POC 161 70 - 199 mg/dL Blood 04/09/2024 6:04 PM MASTER FIRE CONTROL TECHNICIAN 04/09/2024 6:04 PM MASTER FIRE CONTROL TECHNICIAN us Baldomero Weldon DO LAB POCT ORDERABLES - D EVICE Final Result Performing Organization Address [facility] Co de Phone Number [facility] [place] [address] * POCT glucose (04/09/2024 5:02 PM MASTER FIRE CONTROL TECHNICIAN) Glucose, POC 131 70 - 199 mg/dL Blood 04/09/2024 5:02 PM MASTER FIRE CONTROL TECHNICIAN 04/09/2024 5:02 PM MASTER FIRE CONTROL TECHNICIAN us Baldomero Weldon DO LAB POCT ORDERABLES - D EVICE Final Result Performing Organization Address [facility] [place] [address] * POCT glucose (04/09/2024 3:49 PM MASTER FIRE CONTROL TECHNICIAN) Glucose, POC 139 70 - 199 mg/dL Blood 04/09/2024 3:49 PM MASTER FIRE CONTROL TECHNICIAN 04/09/2024 3:49 PM MASTER FIRE CONTROL TECHNICIAN Baldomero Weldon DO LAB POCT ORDERABLES - D EVICE Final Result Performing Organization Address [facility] [place] [address] * POCT glucose (04/09/2024 2:45 PM MASTER FIRE CONTROL TECHNICIAN) Glucose, POC 164 70 - 199 mg/dL Blood 04/09/2024 2:45 PM MASTER FIRE CONTROL TECHNICIAN 04/09/2024 2:45 PM MASTER FIRE CONTROL TECHNICIAN us Baldomero Weldon DO LAB POCT ORDERABLES - D EVICE Final Result Performing Organization Address [facility] [place] [address] * POCT glucose (04/09/2024 1:55 PM MASTER FIRE CONTROL TECHNICIAN) Glucose, POC 181 70 - 199 mg/dL Blood 04/09/2024 1:55 PM MASTER FIRE CONTROL TECHNICIAN 04/09/2024 1:55 PM MASTER FIRE CONTROL TECHNICIAN us Baldomero Weldon DO LAB POCT ORDERABLES - D EVICE Final Result Performing Organization Address City/[facility] [place] [address] * POCT glucose (04/09/2024 1:12 PM MASTER FIRE CONTROL TECHNICIAN) Glucose, POC 164 70 - 199 mg/dL Blood 04/09/2024 1:12 PM MASTER FIRE CONTROL TECHNICIAN 04/09/2024 1:12 PM MASTER FIRE CONTROL TECHNICIAN Baldomero Weldon DO LAB POCT ORDERABLES - D EVICE Final Result Performing Organization Address [facility] [place] [address] * POCT glucose (04/09/2024 11:52 AM MASTER FIRE CONTROL TECHNICIAN) Glucose, POC 131 70 - 199 mg/dL Blood 04/09/2024 11:5 2 AM MASTER FIRE CONTROL TECHNICIAN 04/09/2024 11:52 AM MASTER FIRE CONTROL TECHNICIAN Baldomero Weldon DO LAB POCT ORDERABLES - D EVICE Final Result Performing Organization Address [facility] Co de Phone Number [facility] Department [place] [address] * POCT glucose (04/09/2024 9:53 AM MASTER FIRE CONTROL TECHNICIAN) Glucose, POC 167 70 - 199 mg/dL Blood 04/09/2024 9:53 AM MASTER FIRE CONTROL TECHNICIAN 04/09/2024 9:53 AM MASTER FIRE CONTROL TECHNICIAN Baldomero Weldon DO LAB POCT ORDERABLES - D EVICE Final Result Performing Organization Address [facility] de Phone Number [facility] [place] [address] * TRANSTHORACIC ECHO (TTE) COMPLETE W DOPPLER/CF W CONTRAST (04/09/2024 9:50 AM MASTER FIRE CONTROL TECHNICIAN) [facility] LV EF 29 % CARDIOREPORT Anatomical Region Laterality Modality Ultrasound 04/09/2024 7:00 AM MASTER FIRE CONTROL TECHNICIAN Narrative 04/09/2024 10:03 AM MASTER FIRE CONTROL TECHNICIAN Patient name: Darlene Caldera Date of test: 04/09/2024 Type of test: TTE w/Doppler Hospital #: 0 Date of : 1950 (M) Dispensing Audiologist: Anahi Hernandez RDCS Referring Physician: HEIKE SOLIS MD Contrast Agent: 0.6 ml Optison Administered, (2.4 ml wasted). Contrast Administered by: NEUROSURGEON Supervised/Interpreted by: Stuart ??MD Khloe Diagnosis: Location: [facility] Reason for test: septic shock MV Structure: [...] 2=Hypo 3=Akinetic 4=Dyskin./Aneurysm 0=Not visualized) Parasternal Long [place]:MAS=2 BAS=2 MIL=2 WILLOW=2 Parasternal Short [place]:MAS=2 MIS=2 [place]=2 MIL=2 MAL=2 MA=2 Apical 4 Chambers:=2 MIS=2 BIS=2 BAL=2 MAL=2 AL=2 AC=2 Apical 2 Chambers:AI=2 NJ=2 BI=2 BA=2 MA=2 AA=2 AC=2 LV Global [...] Khloe By signing this report, the attending gas maker certifies that he or she has personally supervised and interpreted the echocardiogram and has reviewed and or edited and agrees with the written comments contained within the report. Procedure Note Stuart Ledbetter MD - 04/09/2024 Patient name: Darlene Caldera Date of test: 04/09/2024 Type of test: TTE w/Doppler Hospital #: 0 Date of : 1950 (M) Dispensing Audiologist: Anahi Hernandez RDCS Referring Physician: HEIKE SOLIS MD Contrast Agent: 0.6 ml Optison Administered, (2.4 ml wasted). Contrast Administered by: NEUROSURGEON Supervised/Interpreted by: Stuart Ledbetter MD Diagnosis: Location: [facility] Reason for test: septic shock MV Structure: [...] 2=Hypo 3=Akinetic 4=Dyskin./Aneurysm 0=Not visualized) Parasternal Long [place]:MAS=2 BAS=2 MIL=2 WILLOW=2 Parasternal Short [place]:MAS=2 MIS=2 NJ=2 MIL=2 MAL=2 MA=2 Apical 4 Chambers:=2 MIS=2 BIS=2 BAL=2 MAL=2 AL=2 AC=2 Apical 2 Chambers:AI=2 NJ=2 BI=2 BA=2 MA=2 AA=2 AC=2 LV Global [...] MD By signing this report, the attending gas maker certifies that he or she has personally supervised and interpreted the echocardiogram and has reviewed and or edited and agrees with the written comments contained within the report. us Heike Solis THREADER OPERATOR CV ECHO PROCEDURES Final Resul t * Critical Care (04/09/2024 8:44 AM MASTER FIRE CONTROL TECHNICIAN) Narrative Emil Branham MD - 04/09/2024 8:44 AM MASTER FIRE CONTROL TECHNICIAN Devora Perez NP ? 04/09/2024 ??6:37 PM [...] plan with the ICU team and other medical/cardiology consultant staff, making frequent assessments and decisions [...] in the medical record us Devora Perez THREADER OPERATOR IN CLINIC/BEDSIDE OR DERABLES Final Result * POCT glucose (04/09/2024 8:04 AM MASTER FIRE CONTROL TECHNICIAN) Glucose, POC 169 70 - 199 mg/dL Blood 04/09/2024 8:04 AM MASTER FIRE CONTROL TECHNICIAN 04/09/2024 8:04 AM MASTER FIRE CONTROL TECHNICIAN us Baldomero Weldon DO LAB POCT ORDERABLES - D EVICE Final Result Performing Organization Address [facility] Co de Phone Number [facility] [place] [address] * POCT glucose (04/09/2024 7:03 AM MASTER FIRE CONTROL TECHNICIAN) Glucose, POC 175 70 - 199 mg/dL Blood 04/09/2024 7:03 AM MASTER FIRE CONTROL TECHNICIAN 04/09/2024 7:03 AM MASTER FIRE CONTROL TECHNICIAN us Baldomero Weldon DO LAB POCT ORDERABLES - D EVICE Final Result Performing Organization Address [facility] de Phone Number [facility] [place] [address] * POCT glucose (04/09/2024 6:00 AM MASTER FIRE CONTROL TECHNICIAN) Glucose, POC 160 70 - 199 mg/dL Blood 04/09/2024 6:00 AM MASTER FIRE CONTROL TECHNICIAN 04/09/2024 6:00 AM MASTER FIRE CONTROL TECHNICIAN Baldomero Weldon DO LAB POCT ORDERABLES - D EVICE Final Result Performing Organization Address [facility] [place] [address] * X-ray chest 1 view (Portable) (04/09/2024 5:46 AM MASTER FIRE CONTROL TECHNICIAN) Anatomical Region Laterality Modality Body, Chest N/A Computed Radiogr aphy 04/09/2024 10:3 7 AM MASTER FIRE CONTROL TECHNICIAN Impressions 04/09/2024 11:39 AM MASTER FIRE CONTROL TECHNICIAN Comparison is made to 04/12/2024 radiograph: Endotracheal [...] Isiah Hogan M.D. Narrative 04/09/2024 11:39 AM MASTER FIRE CONTROL TECHNICIAN EXAMINATION: 1 view chest radiograph Procedure Note [...] signed by: Isiah Hogan M.D. Heike Solis THREADER OPERATOR IMG XR PROCEDURES Final Result * XR Abdomen Ap 1 Vw (04/09/2024 5:45 AM MASTER FIRE CONTROL TECHNICIAN) Anatomical Region Laterality Modality Body, Abdomen N/A Computed Radiogr aphy 04/09/2024 8:08 AM MASTER FIRE CONTROL TECHNICIAN Impressions 04/09/2024 8:08 AM MASTER FIRE CONTROL TECHNICIAN Feeding tube has its tip in the gastric antrum and side-port in the gastric body. Electronically signed by: Annelise Hayes M.D. Narrative 04/09/2024 8:08 AM MASTER FIRE CONTROL TECHNICIAN EXAMINATION: Abdomen, one view. HISTORY: Check tube [...] signed by: Annelise Hayes M.D. Heike Solis THREADER OPERATOR IMG XR PROCEDURES Final Result * POCT glucose (04/09/2024 5:00 AM MASTER FIRE CONTROL TECHNICIAN) Glucose, POC 173 70 - 199 mg/dL Comment:Glu2: RN/MD Notified Glucose comment 1 Glu2: RN/MD Notified [facility] Blood 04/09/2024 5:00 AM MASTER FIRE CONTROL TECHNICIAN 04/09/2024 5:00 AM MASTER FIRE CONTROL TECHNICIAN Baldomero Weldon DO LAB POCT ORDERABLES - D EVICE Final Result Performing Organization Address [facility] Co de Phone Number [facility] [place] [address] * (ABNORMAL) Sepsis Lactate w/ Reflex (04/09/2024 4:57 AM MASTER FIRE CONTROL TECHNICIAN) Pathologist [facility] Sepsis Lactate 2.4(H) 0.7 - 2.0 mmol/L Blood 04/09/2024 4:57 AM MASTER FIRE CONTROL TECHNICIAN 04/09/2024 5:11 AM MASTER FIRE CONTROL TECHNICIAN Arron Lambert MD LAB BLOOD ORDERABLES Judy l Result Performing Organization Address [facility] Co de Phone Number [facility] [place] [address] * Potassium, whole blood (04/09/2024 4:57 AM MASTER FIRE CONTROL TECHNICIAN) Pathologist [facility] Potassium, bld 3.8 3.3 - 4.9 mmol/L Blood 04/09/2024 4:57 AM MASTER FIRE CONTROL TECHNICIAN 04/09/2024 5:11 AM MASTER FIRE CONTROL TECHNICIAN Heike Solis THREADER OPERATOR LAB BLOOD ORDERABLES Final Res ult Performing Organization Address [facility]/ZIP Co de Phone Number [facility] [place] [address] * eGFR (04/09/2024 4:57 AM MASTER FIRE CONTROL TECHNICIAN) eGFR 65 >=60 mL/min/1. 73 m2 Comment: [...] last reviewed 2021. Blood 04/09/2024 4:57 AM MASTER FIRE CONTROL TECHNICIAN 04/09/2024 5:08 AM MASTER FIRE CONTROL TECHNICIAN us Heike Solis THREADER OPERATOR LAB BLOOD ORDERABLES Final Res ult [facility] Department [place] [address] * (ABNORMAL) Calcium, ionized (04/09/2024 4:57 AM MASTER FIRE CONTROL TECHNICIAN) Calcium, Ionized 4.47(L) 4.50 - 5.10 mg/dL Blood 04/09/2024 4:57 AM MASTER FIRE CONTROL TECHNICIAN 04/09/2024 5:09 AM MASTER FIRE CONTROL TECHNICIAN Heike Solis THREADER OPERATOR LAB BLOOD ORDERABLES Final Res ult Performing Organization Address [facility] Co de Phone Number [facility] [place] [address] * (ABNORMAL) Lactate, whole blood (04/09/2024 4:57 AM MASTER FIRE CONTROL TECHNICIAN) Lactate, bld 2.4(H) 0.7 - 2.0 mmol/L Blood 04/09/2024 4:57 AM MASTER FIRE CONTROL TECHNICIAN 04/09/2024 5:11 AM MASTER FIRE CONTROL TECHNICIAN Heike Solis THREADER OPERATOR LAB BLOOD ORDERABLES Final Res ult Performing Organization Address [facility] [place] [address] * (ABNORMAL) Protime-INR (04/09/2024 4:57 AM MASTER FIRE CONTROL TECHNICIAN) PT 19.2(H) 9.7 - 13.0 sec INR 1.76(H) 0.90 - 1.20 [facility] Comment: Interpretive data Oral anticoagulant therapeutic ranges: Venous thromboembolism prophylaxis or treatment: 2.0-3.0 CARDIOLOGY Standard range: 2.0-3.0 High-intensity range: 2.5-3.5 Refer to indication-specific guidelines for appropriate target ranges for prosthetic heart valve replacement. Current interpretive data was last revised on 2019. Blood 04/09/2024 4:57 AM MASTER FIRE CONTROL TECHNICIAN 04/09/2024 5:22 AM MASTER FIRE CONTROL TECHNICIAN Heike Solis THREADER OPERATOR LAB BLOOD ORDERABLES Final Res ult Performing Organization Address [facility] Co de Phone Number [facility] [place] [address] * (ABNORMAL) CBC without differential (04/09/2024 4:57 AM MASTER FIRE CONTROL TECHNICIAN) [facility] WBC 29.0(H) 3.8 - 9.9 K/cumm Hgb 8.1(L) 13.0 - 17.5 g/dL [facility] Hct 24.6(L) 38.9 - 50.3 % [facility] Plt 309 150 - 400 K/cumm [facility] MPV 10.6 9.1 - 12.3 fL [facility] RBC 2.72(L) 4.30 - 5.80 M/cumm [facility] MCV 90.4 81.3 - 96.4 fL [facility] MCH 29.8 27.1 - 33.3 pg [facility] MCHC 32.9 32.3 - 35.7 g/dL [facility] RDW CV 17.2(H) 11.1 - 14.9 % [facility] RDW SD 56.0(H) 35.7 - 48.1 fL [facility] NRBC abs 0.00 0.00 - 0.01 K/cumm [facility] Blood 04/09/2024 4:57 AM MASTER FIRE CONTROL TECHNICIAN 04/09/2024 5:50 AM MASTER FIRE CONTROL TECHNICIAN us Heike Solis THREADER OPERATOR LAB BLOOD ORDERABLES Final Res ult Performing Organization Address City/State/[facility] Co de Phone Number [facility] Department [place] [address] * Triglycerides (04/09/2024 4:57 AM MASTER FIRE CONTROL TECHNICIAN) [facility] Triglycerides 97 <=149 mg/dL Comment: Interpretive Data [...] revised on 2017. Blood 04/09/2024 4:57 AM MASTER FIRE CONTROL TECHNICIAN 04/09/2024 5:08 AM MASTER FIRE CONTROL TECHNICIAN Baldomero Weldon DO LAB BLOOD ORDERABLES Fi nal Result Performing Organization Address [facility] de Phone Number [facility] Department [place] [address] * (ABNORMAL) Phosphorus (04/09/2024 4:57 AM MASTER FIRE CONTROL TECHNICIAN) Phosphorus, pl 1.9(L) 2.3 - 4.5 mg/dL Blood 04/09/2024 4:57 AM MASTER FIRE CONTROL TECHNICIAN 04/09/2024 5:08 AM MASTER FIRE CONTROL TECHNICIAN Heike Solis THREADER OPERATOR LAB BLOOD ORDERABLES Final Res ult Performing Organization Address [facility] de Phone Number [facility] Department [place] [address] * (ABNORMAL) Magnesium (04/09/2024 4:57 AM MASTER FIRE CONTROL TECHNICIAN) Magnesium 1.3(L) 1.4 - 2.5 mg/dL Blood 04/09/2024 4:57 AM MASTER FIRE CONTROL TECHNICIAN 04/09/2024 5:08 AM MASTER FIRE CONTROL TECHNICIAN Heike Solis THREADER OPERATOR LAB BLOOD ORDERABLES Final Res ult Performing Organization Address [facility] de Phone Number [facility] Department [place] [address] * (ABNORMAL) Blood gas, arterial (04/09/2024 4:57 AM MASTER FIRE CONTROL TECHNICIAN) Pathologist [facility] pH, Art 7.42 7.35 - 7.45 PCO2, Arterial 37 35 - 45 mmHg [facility] PO2, Arterial 119(H) 83 - 108 mmHg [facility] HCO3 Art (Calculated) 25 20 - 30 mmol/L [facility] BE, art 0 mmol/L [facility] Comment: Interpretive Data No Reference Range Established Current Interpretive Data was last revised on 2017 O2 Sat Art (Measured) 99(H) 90 - 95 % [facility] Blood 04/09/2024 4:57 AM MASTER FIRE CONTROL TECHNICIAN 04/09/2024 5:11 AM MASTER FIRE CONTROL TECHNICIAN us Heike Solis THREADER OPERATOR LAB BLOOD ORDERABLES Final Res ult [facility] Department [place] [address] * (ABNORMAL) Lipid panel (04/09/2024 4:57 AM MASTER FIRE CONTROL TECHNICIAN) [facility] Cholesterol 61 30 - 199 mg/dL Comment: [...] revised on 2017. Triglycerides 100 <=149 mg/dL [facility] Comment: Interpretive Data Ages < or = [...] revised on 2017. HDL 21(L) >=40 mg/dL [facility] Comment: Interpretive Data Ages < [...] on 2017. LDL, calculated 20 <=129 mg/dL [facility] Comment: Interpretive Data Ages < [...] NCEP Expert Panel. Circulation 2004;110:227 3. Brady M et al. ESTELITA Cardiol. 2020 August 01;5(5):540-548. doi: [email or web address] Current Interpretive Data was last revised on 2023. Non-HDL Cholesterol 40 mg/dL [facility] Comment: Interpretive Data Ages < [...] last revised on 2017. Chol/HDL ratio 3 [facility] Blood 04/09/2024 4:57 AM MASTER FIRE CONTROL TECHNICIAN 04/09/2024 5:08 AM MASTER FIRE CONTROL TECHNICIAN Narrative [facility] - 04/09/2024 6:09 PM MASTER FIRE CONTROL TECHNICIAN Reflex us Baldomero Weldon DO LAB BLOOD ORDERABLES Fi nal Result [facility] Department of Laboratories [place], [place] [id number] * (ABNORMAL) Comprehensive metabolic panel (04/09/2024 4:57 AM MASTER FIRE CONTROL TECHNICIAN) Sodium 134(L) 135 - 145 mmol/L Potassium, pl 4.0 3.3 - 4.9 mmol/L [facility] Chloride 102 97 - 110 mmol/L [facility] CO2 24 22 - 32 mmol/L [facility] Anion gap 8 2 - 15 mmol/L [facility] BUN 31(H) 6 - 25 mg/dL [facility] Creatinine 1.18 0.80 - 1.30 mg/dL [facility] Glucose 159 70 - 199 mg/dL [facility] Comment: Interpretive Data Fasting glucose >/= 126 [...] classification and Diagnosis of Diabetes Diabetes Care 202; 46: S19-S40. Current interpretive data was last revised 2022. Calcium 8.0(L) 8.5 - 10.3 mg/dL [facility] Bilirubin, total 1.2 0.1 - 1.2 mg/dL [facility] Protein, pl 5.6(L) 6.5 - 8.5 g/dL [facility] Albumin 2.0(L) 3.5 - 5.0 g/dL [facility] Alk phos 339(H) 40 - 130 Units/L [facility] ALT 51 7 - 55 Units/L [facility] AST 49 10 - 50 Units/L [facility] Blood 04/09/2024 4:57 AM MASTER FIRE CONTROL TECHNICIAN 04/09/2024 5:08 AM MASTER FIRE CONTROL TECHNICIAN us Heike Solis THREADER OPERATOR LAB BLOOD ORDERABLES Final Res ult [facility] Department [place] [address] * Critical Care (04/09/2024 4:53 AM MASTER FIRE CONTROL TECHNICIAN) Narrative Francisco Redman MD - 04/09/2024 4:53 AM MASTER FIRE CONTROL TECHNICIAN Heike Solis NP ? 04/09/2024 ??5:18 AM [...] plan with the ICU team and other medical/cardiology consultant staff, making frequent assessments and decisions [...] gram stain Tissue Sacral (04/09/2024 4:22 AM MASTER FIRE CONTROL TECHNICIAN) Direct Specimen Exam Stain: Few polymorphonuclear leukocytes seen. Abundant Gram Negative Bacilli Moderate Gram Positive Bacilli Few Gram Positive Cocci Report Final Report: Abundant Mixed aerobic and anaerobic microorganisms Includes the following: Moderate Bacteroides uniformis Moderate Bacteroides caccae (.) ERIKA OAKES Organism MIXED AEROBIC AND ANAEROBIC MICROORGANISMS CERNER VIOLETTE Organism BACTEROIDES UNIFORMIS [facility]KA [facility]ES Organism BACTEROIDES CACCAE [facility]ES Tissue (Sacral) 04/09/2024 4 :22 AM MASTER FIRE CONTROL TECHNICIAN 04/09/2024 9:45 AM MASTER FIRE CONTROL TECHNICIAN Narrative ERIKA SAUER - 04/14/2024 2:43 PM MASTER FIRE CONTROL TECHNICIAN Sacral Wound #2 Specimen received in anaerobic transport media. Testing performed by [facility] ([phone]) Specimens submitted from normally sterile body sites [...] MICROBIOLOGY - GENE RAL ORDERABLES Final Result [facility] Department [place] [address] * (ABNORMAL) Aerobic and anaerobic culture and gram stain Aspirate Sacral (04/09/2024 4:13 AM MASTER FIRE CONTROL TECHNICIAN) Direct Specimen Exam Stain: Abundant polymorphonuclear leukocytes seen. Abundant Gram Negative Bacilli Few Gram Positive Bacilli Rare Gram Positive Cocci Report Final Report: Abundant Mixed aerobic and anaerobic microorganisms Includes the following: Moderate Bacteroides caccae (.) [facility] Organism MIXED AEROBIC AND ANAEROBIC MICROORGANISMS [facility] Organism BACTEROIDES CACCAE [facility] Aspirate (Sacral) 04/09/2024 4:13 AM MASTER FIRE CONTROL TECHNICIAN 04/09/2024 9:46 AM MASTER FIRE CONTROL TECHNICIAN Narrative ERIKA [facility] - 04/14/2024 2:20 PM MASTER FIRE CONTROL TECHNICIAN Sacral wound 1 Specimen received in anaerobic transport media. Testing performed by [facility] ([phone]) Specimens submitted from normally sterile body sites [...] MICROBIOLOGY - GENE RAL ORDERABLES Final Result [facility] Department [place] [address] * Transfuse RBC (04/09/2024 4:11 AM MASTER FIRE CONTROL TECHNICIAN) Blood Tram Miranda MD BLOOD TRANSFUSION ORDERAB LES Final Result [facility] Department [place] [address] * (ABNORMAL) POC Blood Gas and Chemistries, Arterial - (04/09/2024 3:53 AM MASTER FIRE CONTROL TECHNICIAN) pH, Art POC 7.43 7.35 - 7.45 pCO2, Art POC 35 35 - 45 mmHg [facility] pO2, Art POC 167(H) 83 - 108 [facility] Na, POC 130(L) 135 - 145 mmol/L [facility] K POC 4.2 3.3 - 4.9 mmol/L [facility] Comment: Interpretive Data Not all point of care methods assess for hemolysis. Confirm with instrument and retest K+ if not consistent with clinical signs and symptoms. Current Interpretive Data was last revised on 2023. Cl, POC 103 97 - 110 mmol/L [facility] Ionized Ca, POC 4.93 4.50 - 5.10 mg/dL [facility] Glucose, POC 188 70 - 199 mg/dL [facility] Lactate, POC 2.9(H) 0.7 - 2.2 mmol/L [facility] SO2 (rony) arterial 100(H) 90 - 95 % [facility] Base excess, POC -0.9 mmol/L [facility] HCO3, Art POC 23 20 - 30 mmol/L [facility] Hct, POC 25.0(L) 41.4 - 51.6 % [facility] Total Hb, POC 8.3(L) 13.8 - 17.2 g/dL [facility] Blood 04/09/2024 3:53 AM MASTER FIRE CONTROL TECHNICIAN 04/09/2024 3:53 AM MASTER FIRE CONTROL TECHNICIAN Physician No LAB POCT ORDERABLES - DEVICE Fin al Result Performing Organization Address [facility] Co de Phone Number E[facility] SA[facility] Department [place] [address] * Transfuse RBC (04/09/2024 3:42 AM MASTER FIRE CONTROL TECHNICIAN) Blood Tram Miranda MD BLOOD TRANSFUSION ORDERAB LES Final Result Performing Organization Address [facility] de Phone Number [facility] Department [place] [address] * Airway (04/09/2024 3:30 AM MASTER FIRE CONTROL TECHNICIAN) Narrative Renaldo Trujillo MD - 04/09/2024 3:30 AM MASTER FIRE CONTROL TECHNICIAN Renaldo Trujillo MD ? 04/09/2024 ??3:30 AM [...] Result * Arterial Line (04/09/2024 3:24 AM MASTER FIRE CONTROL TECHNICIAN) Narrative Renaldo Trujillo MD - 04/09/2024 3:24 AM MASTER FIRE CONTROL TECHNICIAN Renaldo Trujillo MD ? 04/09/2024 ??3:29 AM Arterial Line Patient location: OR Indication: continuous blood pressure monitoring and blood sampling needed Ultrasound assisted: yes Staff: Supervising provider: Tram Miranda MD Placed by: Resident: Kaylah Brooke MD Procedure prep: Prep solution: chlorhexadine/alcohol Prep: sterile gloves Arterial line: Catheter size: 4 Upper Sor[place] Catheter type: wire-guided catheter Laterality: left Site: radial artery Line secured: tape and Tegaderm Results: good waveform and good blood return Number of attempts: 1 Assessment: Events: patient tolerated procedure well with no complications Tram Miranda MD ANESTHESIA ORDERABLES Artemio pushpa Result - Final * Prepare RBC: 1 Units (04/09/2024 3:12 AM MASTER FIRE CONTROL TECHNICIAN) Product code [id number] Unit Number [id number] [facility] Product Blood Type OPOS [facility] Dispense Status PRESUMED TRANSFUSED [facility] Blood 04/09/2024 3:12 AM MASTER FIRE CONTROL TECHNICIAN 04/09/2024 3:12 AM MASTER FIRE CONTROL TECHNICIAN Narrative [facility] - 04/09/2024 4:00 PM MASTER FIRE CONTROL TECHNICIAN Are special requirements needed? (All products are leukoreduced and CMV- safe)- >No Date required:-20240409 LRRBC # of [id number] Reasons:-Intra-op transfusion} Tram Miranda MD BLOOD BANK PRODUCT ORDERA BLES Final Result [facility] [place] [address] * (ABNORMAL) POC Blood Gas and Chemistries, Arterial - (04/09/2024 3:09 AM MASTER FIRE CONTROL TECHNICIAN) pH, Art POC 7.45 7.35 - 7.45 pCO2, Art POC 35 35 - 45 mmHg [facility] pO2, Art POC 78(L) 83 - 108 mmHg [facility] Na, POC 134(L) 135 - 145 mmol/L [facility] K POC 4.1 3.3 - 4.9 mmol/L [facility] Comment: Interpretive Data Not all point of care methods assess for hemolysis. Confirm with instrument and retest K+ if not consistent with clinical signs and symptoms. Current Interpretive Data was last revised on 2023. Cl, POC 104 97 - 110 mmol/L [facility] Ionized Ca, POC 4.88 4.50 - 5.10 mg/dL [facility] Glucose, POC 172 70 - 199 mg/dL [facility] Lactate, POC 1.5 0.7 - 2.2 mmol/L [facility] SO2 (rony) arterial 97(H) 90 - 95 % [facility] Base excess, POC 0.4 mmol/L [facility] HCO3, Art POC 24 20 - 30 mmol/L [facility] Hct, POC 23.0(L) 41.4 - 51.6 % [facility] Total Hb, POC 7.5(L) 13.8 - 17.2 g/dL [facility] Blood 04/09/2024 3:09 AM MASTER FIRE CONTROL TECHNICIAN 04/09/2024 3:09 AM MASTER FIRE CONTROL TECHNICIAN Physician No LAB POCT ORDERABLES - DEVICE Fin al Result Performing Organization Address City/[facility]/ZIP Co de Phone Number [facility] Department [place] [address] * Check Sample (04/09/2024 2:42 AM MASTER FIRE CONTROL TECHNICIAN) ABO Rh O Positive [facility] OTHER 04/09/2024 2:42 AM MASTER FIRE CONTROL TECHNICIAN 04/09/2024 3:23 AM MASTER FIRE CONTROL TECHNICIAN Hi Shah MD LAB BLOOD ORDERABLES Fin al Result [facility] Department [place] [address] [facility] * [facility] CR[facility]ARE ILL/INJURED PATIENT INIT 30-74 MIN (04/09/2024 2:24 AM MASTER FIRE CONTROL TECHNICIAN) Narrative Hi Shah MD - 04/09/2024 2:24 AM MASTER FIRE CONTROL TECHNICIAN Hi Shah MD ? 04/09/2024 ??2:24 AM [...] or with the appropriate designated surrogate decision-maker. Hi Shah MD IN CLINIC/BEDSIDE ORDERA BLES Final Result * (ABNORMAL) ECG 12 lead (04/09/2024 2:20 AM MASTER FIRE CONTROL TECHNICIAN) Narrative [facility] - 04/09/2024 2:20 AM MASTER FIRE CONTROL TECHNICIAN Girish Bray MD ? 04/09/2024 ??2:26 AM [...] ORDERABLES Final Res ult Performing Organization Address [facility] Co de Phone Number [facility] * Prepare RBC: 2 Units (04/09/2024 2:10 AM MASTER FIRE CONTROL TECHNICIAN) Pathologist [facility] Product code [id number] Unit Number [id number] [facility] Product Blood Type OPOS [facility] Dispense Status PRESUMED TRANSFUSED [facility] Blood 04/09/2024 2:10 AM MASTER FIRE CONTROL TECHNICIAN 04/09/2024 2:10 AM MASTER FIRE CONTROL TECHNICIAN Narrative [facility] - 04/09/2024 8:00 PM MASTER FIRE CONTROL TECHNICIAN Specify Procedure:->Wound debridement Are special requirements needed? (All products are leukoreduced and CMV- safe)- >No Date required:-[id number] LRRBC # of [id number] Reasons:-Hold for procedure (specify procedure)} us Hi Shah MD BLOOD BANK PRODUCT ORDER EVY Final Result Performing Organization Address [facility] Co de Phone Number [facility] Department [place] [address] * (ABNORMAL) Urinalysis reflex to microscopic and culture Urine (04/09/2024 1:26 AM MASTER FIRE CONTROL TECHNICIAN) Color, ur Yellow Yellow Clarity, ur Clear Clear [facility] Specific gravity, ur 1.042(H) 1.003 - 1.030 [facility] pH, urine 6.0 [facility] Comment: Interpretive Data ? Urine pH is affected by diet, medications, systemic acid-base disturbances, and renal tubular function. ??pH may affect urinary stone formation. ??For example, urine pH below 6.0 may help reduce the tendency for calcium phosphate stones and pH greater than 6.0 may reduce the tendency for uric acid stone formation. Source: [facility] [facility] Current Interpretive Data was last revised on 2017 Protein, ur ql 1+(A) Negative [facility] Glucose, ur ql Negative Negative [facility] Ketones, ur Trace Negative [facility] Bilirubin, ur Negative Negative [facility] Blood, ur Negative Negative [facility] Urobilinogen, ur <2.0 <2.0 mg/dL [facility] Nitrite, ur Negative Negative [facility] Leukocyte esterase, ur 2+(A) Negative [facility] UA reflex comment Reflex to microscopic UA will be performed. [facility] Urine 04/09/2024 1:26 AM MASTER FIRE CONTROL TECHNICIAN 04/09/2024 1:56 AM MASTER FIRE CONTROL TECHNICIAN Arron Lambert MD LAB MICROBIOLOGY - GENERA L ORDERABLES Final Result [facility] Department [place] [address] * (ABNORMAL) Urinalysis, microscopic only (04/09/2024 1:26 AM MASTER FIRE CONTROL TECHNICIAN) WBC, ur 21-50(A) 0 - 5 /HPF RBC, ur 0-2 0 - 2 /HPF [facility] Epithelial cells, squamous, ur 1-5 0 - 5 /HPF [facility] Bacteria, ur Trace(A) [facility] Yeast, ur TRACE [facility] Mucous, ur Present(A) [facility] Culture Reflex Comment Reflex to urine culture will be performed. [facility] Urine 04/09/2024 1:26 AM MASTER FIRE CONTROL TECHNICIAN 04/09/2024 1:56 AM MASTER FIRE CONTROL TECHNICIAN Arron Lambert MD LAB URINE ORDERABLES Judy l Result Performing Organization Address [facility] Co de Phone Number [facility] [place] [address] * Urine culture Urine (04/09/2024 1:26 AM MASTER FIRE CONTROL TECHNICIAN) Report Final Report: Less than 100,000 colonies/mL (clinically insignificant growth based on current clinical standards) Organism (CLINICALLY INSIGNIFICANT GROWTH [facility] Urine 04/09/2024 1:26 AM MASTER FIRE CONTROL TECHNICIAN 04/09/2024 3:35 AM MASTER FIRE CONTROL TECHNICIAN Narrative [facility] - 04/10/2024 5:52 AM MASTER FIRE CONTROL TECHNICIAN Urine culture reflexed based upon urinalysis results. Testing performed by [facility] ([phone]) Arron Lambert MD LAB MICROBIOLOGY - GENERA L ORDERABLES Final Result Performing Organization Address [facility] de Phone Number [facility] Department [place] [address] * XR Chest 1 View (04/09/2024 12:57 AM MASTER FIRE CONTROL TECHNICIAN) Anatomical Region Laterality Modality Body, Chest N/A Computed Radiogr aphy 04/09/2024 1:01 AM MASTER FIRE CONTROL TECHNICIAN Impressions 04/09/2024 10:01 AM MASTER FIRE CONTROL TECHNICIAN Comparison to recent CT of the pelvis [...] Rebel Dey M.D. Narrative 04/09/2024 10:01 AM MASTER FIRE CONTROL TECHNICIAN EXAMINATION: 1 view chest radiograph Procedure Note Rebel Dey MD - 04/09/2024 EXAMINATION: 1 view chest [...] (Staphylococcus aureus) Culture Nasal (04/09/2024 12:40 AM MASTER FIRE CONTROL TECHNICIAN) Report Final Report: Negative Nasal 04/09/2024 12:4 0 AM MASTER FIRE CONTROL TECHNICIAN 04/09/2024 1:00 AM MASTER FIRE CONTROL TECHNICIAN Narrative [facility] - 04/10/2024 7:59 AM MASTER FIRE CONTROL TECHNICIAN Testing performed by [facility] ([phone]). Arron Lambert MD LAB MICROBIOLOGY - GENERA L ORDERABLES Final Result [facility] Department [place] [address] * CT Body Outside Consult (04/09/2024 12:36 AM MASTER FIRE CONTROL TECHNICIAN) Anatomical Region Laterality Modality Body N/A Computed Tomogra phy 04/09/2024 12:5 5 AM MASTER FIRE CONTROL TECHNICIAN Impressions 04/09/2024 10:02 AM MASTER FIRE CONTROL TECHNICIAN 1. ??Extensive soft tissue gas with collections [...] images may or may not represent the igiugig source data set and thus may contain changes that may lower the accuracy of this second-opinion interpretation. Dictated by: Nael Brooke M.D. The radiology attending physician has personally reviewed this study, and had reviewed and/or edited this written report and agrees with it. Electronically signed by: Rebel Dey M.D. Narrative 04/09/2024 10:02 AM MASTER FIRE CONTROL TECHNICIAN EXAMINATION: RADIOLOGY CONSULTATION ON OUTSIDE IMAGING STUDY STUDY INITIALLY PERFORMED: 04/08/2024 at [facility]. TYPE OF STUDY: Multiple CT images of [...] Indeterminate left adrenal nodule measuring 2.1 cm (). No hydronephrosis or suspicious renal lesion. Stranding [...] IMAGING STUDY STUDY INITIALLY PERFORMED: 04/08/2024 at [facility]. TYPE OF STUDY: Multiple CT images of [...] Indeterminate left adrenal nodule measuring 2.1 cm (3/67). No hydronephrosis or suspicious renal lesion. Stranding [...] images may or may not represent the igiugig source data set and thus may contain changes that may lower the accuracy of this second-opinion interpretation. Dictated by: Nael Brooke M.D. The radiology attending physician has personally reviewed this study, and had reviewed and/or edited this written report and agrees with it. Electronically signed by: Rebel Dey M.D. [facility] B[facility] MD IMSandra CT PROCEDURES Final Result * XR Outside Reference (04/09/2024 12:34 AM MASTER FIRE CONTROL TECHNICIAN) Impressions [facility] - 04/09/2024 12:34 AM MASTER FIRE CONTROL TECHNICIAN These images are for Reference purposes only and have not been reviewed by [facility]. ??There will be no report generated by a [facility] Radiologist. Narrative [facility] - 04/09/2024 12:34 AM MASTER FIRE CONTROL TECHNICIAN EXAMINATION: ??Images For Reference Purposes Only us Girish Bray MD IMG XR PROCEDURES Final Result Performing Organization Address [facility] Co de Phone Number [facility] * (ABNORMAL) Sepsis Lactate w/ Reflex (04/09/2024 12:33 AM MASTER FIRE CONTROL TECHNICIAN) Sepsis Lactate 2.4(H) 0.7 - 2.0 mmol/L Blood 04/09/2024 12:3 3 AM MASTER FIRE CONTROL TECHNICIAN 04/09/2024 12:42 AM MASTER FIRE CONTROL TECHNICIAN us Arron Lambert MD LAB BLOOD ORDERABLES Judy l Result Performing Organization Address [facility] de Phone Number [facility] Department [place] [address] * eGFR (04/09/2024 12:33 AM MASTER FIRE CONTROL TECHNICIAN) eGFR 60 >=60 mL/min/1. 73 m2 Comment: [...] Inclusion of Race in Diagnosing Kidney Disease, KILLIANSJa 2020). The CKD-EPI equation should not be used for patients with unstable renal function and has not been validated in children and those over 70. Current interpretive data was last reviewed 2021. Blood 04/09/2024 12:3 3 AM MASTER FIRE CONTROL TECHNICIAN 04/09/2024 12:56 AM MASTER FIRE CONTROL TECHNICIAN us Arron Lambert MD LAB BLOOD ORDERABLES Judy l Result [facility] Department [place] [address] * (ABNORMAL) Differential, auto (04/09/2024 12:33 AM MASTER FIRE CONTROL TECHNICIAN) Neutrophil abs 18.7(H) 1.5 - 6.5 K/cumm Imm gran abs 0.8(H) 0.0 - 0.1 K/cumm [facility] Lymphocyte abs 1.0 0.8 - 3.3 K/cumm [facility] Monocyte abs 1.1(H) 0.2 - 0.8 K/cumm [facility] Eosinophil abs 0.0 0.0 - 0.5 K/cumm [facility] Basophil abs 0.0 0.0 - 0.1 K/cumm [facility] Neutrophil pct 86.2 % [facility] Comment: Interpretive Data Percent cell count reference ranges are not reported, since discordance with absolute values may lead to misinterpretation of CBC data. Current Interpretive Data was last revised on 2017. Imm gran pct 3.6 % [facility] Comment: Interpretive Data Percent cell count reference ranges are not reported, since discordance with absolute values may lead to misinterpretation of CBC data. Current Interpretive Data was last revised on 2017. Lymphocyte pct 4.8 % [facility] Comment: Interpretive Data Percent cell count reference ranges are not reported, since discordance with absolute values may lead to misinterpretation of CBC data. Current Interpretive Data was last revised on 2017. Monocyte pct 5.2 % [facility] Comment: Interpretive Data Percent cell count reference ranges are not reported, since discordance with absolute values may lead to misinterpretation of CBC data. Current Interpretive Data was last revised on 2017. Eosinophil pct 0.0 % [facility] Comment: Interpretive Data Percent cell count reference ranges are not reported, since discordance with absolute values may lead to misinterpretation of CBC data. Current Interpretive Data was last revised on 2017. Basophil pct 0.2 % [facility] Comment: Interpretive Data Percent cell count reference ranges are not reported, since discordance with absolute values may lead to misinterpretation of CBC data. Current Interpretive Data was last revised on 2017. Blood 04/09/2024 12:3 3 AM MASTER FIRE CONTROL TECHNICIAN 04/09/2024 12:56 AM MASTER FIRE CONTROL TECHNICIAN us Arron Lambert MD LAB BLOOD ORDERABLES Judy l Result Performing Organization Address City/[facility]/ZIP Co de Phone Number [facility] Department [place] [address] * POCT glucose (04/09/2024 12:33 AM MASTER FIRE CONTROL TECHNICIAN) Pathologist [facility] Glucose, POC 127 70 - 199 mg/dL Blood 04/09/2024 12:3 3 AM MASTER FIRE CONTROL TECHNICIAN 04/09/2024 12:33 AM MASTER FIRE CONTROL TECHNICIAN Hi Shah MD LAB POCT ORDERABLES - DE VICE Final Result Performing Organization Address City/[facility]/ZIP Co de Phone Number [facility] Department [place] [address] * (ABNORMAL) CBC with auto differential (04/09/2024 12:33 AM MASTER FIRE CONTROL TECHNICIAN) Pathologist [facility] WBC 21.7(H) 3.8 - 9.9 K/cumm Hgb 7.7(L) 13.0 - 17.5 g/dL [facility] Hct 23.8(L) 38.9 - 50.3 % [facility] Plt 274 150 - 400 K/cumm [facility] MPV 9.9 9.1 - 12.3 fL [facility] RBC 2.57(L) 4.30 - 5.80 M/cumm [facility] MCV 92.6 81.3 - 96.4 fL [facility] MCH 30.0 27.1 - 33.3 pg [facility] MCHC 32.4 32.3 - 35.7 g/dL [facility] RDW CV 17.9(H) 11.1 - 14.9 % [facility] RDW SD 59.6(H) 35.7 - 48.1 fL [facility] NRBC abs 0.00 0.00 - 0.01 K/cumm [facility] Blood 04/09/2024 12:3 3 AM MASTER FIRE CONTROL TECHNICIAN 04/09/2024 12:56 AM MASTER FIRE CONTROL TECHNICIAN Arron Lambert MD LAB BLOOD ORDERABLES Judy sharpe Result [facility] Department [place] [address] * (ABNORMAL) Blood culture Blood Peripheral (04/09/2024 12:33 AM MASTER FIRE CONTROL TECHNICIAN) [facility] Direct Specimen Exam Molecular Analysis: Presumptive Escherichia [...] and read back by: Devora Perez NP [phone] on 04/09/2024 15:08:59 by: Jv Burgess [place] Direct Specimen Exam Stain: Gram Negative Bacilli Time to culture positivity (anaerobic media): 11.4 hours Time to culture positivity (aerobic media): 13.2 hours Notification of: Gram Negative Bacilli called to and read back by: Devora Perez NP [phone] on 04/09/2024 13:27:11 by: Jv Burgess MT [facility] Report Final Report: Escherichia coli The susceptibility pattern of this Escherichia coli indicates the possible production of an extended spectrum beta lactamase (ESBL). ??Patients infected with ESBL-producing organisms require contact isolation precautions. ??For therapeutic options for this organism, please contact infectious diseases. (.) [facility] Organism ESCHERICHIA COLI [facility] Blood (Peripheral) 04/09/2024 12:33 AM MASTER FIRE CONTROL TECHNICIAN 04/09/2024 1:29 AM MASTER FIRE CONTROL TECHNICIAN Narrative [facility] - 04/12/2024 4:22 PM MASTER FIRE CONTROL TECHNICIAN From a different site than #1. Draw [...] performance characteristics have been verified by the [facility]. For questions about this culture, contact the Microbiology Laboratory at [phone]. Interpretive data was last revised on 24. [...] L ORDERABLES Final Result Performing Organization Address [facility] Co de Phone Number [facility] [place] [address] * aPTT (04/09/2024 12:33 AM MASTER FIRE CONTROL TECHNICIAN) aPTT 28 28 - 38 sec Comment: Interpretive Data Heparin therapeutic range: 66.0 - 100.0 seconds. Range based on correlation with therapeutic heparin activity range of 0.3 - 0.7 Units/mL. Current interpretive data was last revised on 2022. Blood 04/09/2024 12:3 3 AM MASTER FIRE CONTROL TECHNICIAN 04/09/2024 12:43 AM MASTER FIRE CONTROL TECHNICIAN Arron Lambert MD LAB BLOOD ORDERABLES Judy l Result Performing Organization Address [facility] [place] [address] * (ABNORMAL) Protime-INR (04/09/2024 12:33 AM MASTER FIRE CONTROL TECHNICIAN) PT 25.1(H) 9.7 - 13.0 sec INR 2.29(H) 0.90 - 1.20 [facility] Comment: Interpretive data Oral anticoagulant therapeutic ranges: Venous thromboembolism prophylaxis or treatment: 2.0-3.0 CARDIOLOGY Standard range: 2.0-3.0 High-intensity range: 2.5-3.5 Refer to indication-specific guidelines for appropriate target ranges for prosthetic heart valve replacement. Current interpretive data was last revised on 2019. Blood 04/09/2024 12:3 3 AM MASTER FIRE CONTROL TECHNICIAN 04/09/2024 12:43 AM MASTER FIRE CONTROL TECHNICIAN Result [place] [facility] [facility] Arron Lambert MD LAB BLOOD ORDERABLES Judy l Result Performing Organization Address [facility] Co de Phone Number [facility] Department [place] [address] * Type and screen (04/09/2024 12:33 AM MASTER FIRE CONTROL TECHNICIAN) ABO Rh O Positive Brandy, indirect Negative [facility] Blood 04/09/2024 12:3 3 AM MASTER FIRE CONTROL TECHNICIAN 04/09/2024 1:51 AM MASTER FIRE CONTROL TECHNICIAN Narrative [facility] - 04/09/2024 2:40 AM MASTER FIRE CONTROL TECHNICIAN Has the patient had Daratumumab or Isatuximab in the past 6 months?->Unknown Result [place] [facility] Arron Lambert MD LAB BLOOD BANK TEST ORDER EVY Final Result Performing Organization Address [facility] de Phone Number [facility] [place] [address] * (ABNORMAL) Hemoglobin A1c (04/09/2024 12:33 AM MASTER FIRE CONTROL TECHNICIAN) Hgb A1C 6.7(H) 4.0 - 5.6 % Estimated Average Glucose 146 mg/dL [facility] Comment: The ADA recommends reporting an estimated Average Glucose (eAG) with all Hemoglobin A1c results using the equation derived from a study of 507 normal and diabetic adults. ??Minority populations were underrepresented and children were not included. ?? (Diabetes Care 2020; 43(S1): S66-S76). ??The eAG is not equivalent to a fasting glucose. Blood 04/09/2024 12:3 3 AM MASTER FIRE CONTROL TECHNICIAN 04/09/2024 1:08 AM MASTER FIRE CONTROL TECHNICIAN Result [facility] Baldomero Weldon DO LAB BLOOD ORDERABLES Fi nal Result Performing Organization Address [facility] Co de Phone Number [facility] [place] [address] * Blood gas, venous (04/09/2024 12:33 AM MASTER FIRE CONTROL TECHNICIAN) pH, Venous 7.38 7.32 - 7.43 PCO2, Venous 46 40 - 50 mmHg [facility] PO2, Venous 28 mmHg [facility] Comment: Interpretive Data No Reference Range Established Current Interpretive Data was last revised on 2017. HCO3 Venous, Calculated 28 20 - 30 mmol/L [facility] BE, venous 2 mmol/L [facility] Comment: Interpretive Data No Reference Range Established Current Interpretive Data was last revised on 2017. Blood 04/09/2024 12:3 3 AM MASTER FIRE CONTROL TECHNICIAN 04/09/2024 12:42 AM MASTER FIRE CONTROL TECHNICIAN us Arron Lambert MD LAB BLOOD ORDERABLES Judy l Result [facility] Department [place] [address] * (ABNORMAL) Comprehensive metabolic panel (04/09/2024 12:33 AM MASTER FIRE CONTROL TECHNICIAN) Sodium 133(L) 135 - 145 mmol/L Potassium, pl 4.1 3.3 - 4.9 mmol/L [facility] Chloride 100 97 - 110 mmol/L [facility] CO2 25 22 - 32 mmol/L [facility] Anion gap 8 2 - 15 mmol/L [facility] BUN 31(H) 6 - 25 mg/dL [facility] Creatinine 1.25 0.80 - 1.30 mg/dL [facility] Glucose 114 70 - 199 mg/dL [facility] Comment: Interpretive Data Fasting glucose >/= 126 [...] Calcium 8.3(L) 8.5 - 10.3 mg/dL [facility] Bilirubin, total 0.7 0.1 - 1.2 mg/dL [facility] Protein, pl 6.2(L) 6.5 - 8.5 g/dL [facility] Albumin 1.9(L) 3.5 - 5.0 g/dL [facility] Alk phos 386(H) 40 - 130 Units/L [facility] ALT 59(H) 7 - 55 Units/L [facility] AST 58(H) 10 - 50 Units/L [facility] Blood 04/09/2024 12:3 3 AM MASTER FIRE CONTROL TECHNICIAN 04/09/2024 12:56 AM MASTER FIRE CONTROL TECHNICIAN Arron Lambert MD LAB BLOOD ORDERABLES Judy l Result Performing Organization Address [facility] Co de Phone Number [facility] [place] [address] * XR Outside Reference (04/09/2024 12:21 AM MASTER FIRE CONTROL TECHNICIAN) Impressions [facility] - 04/09/2024 12:21 AM MASTER FIRE CONTROL TECHNICIAN These images are for Reference purposes only and have not been reviewed by [facility]. ??There will be no report generated by a [facility] Radiologist. Narrative [facility] - 04/09/2024 12:21 AM MASTER FIRE CONTROL TECHNICIAN EXAMINATION: ??Images For Reference Purposes Only Arron Lambert MD IMG XR PROCEDURES Final R esult Performing Organization Address City/[facility]/ZIP Co de Phone Number [email or web address] * Cardiology Document Scan (03/27/2024 3:07 PM MASTER FIRE CONTROL TECHNICIAN) Anatomical Region Laterality Modality Other Jono Nix MD [facility] CARDIAC SERVICES PROCEDURES Final Result * Cardiology Document Scan (03/24/2024 3:05 PM MASTER FIRE CONTROL TECHNICIAN) Anatomical Region Laterality Modality Other Ro Carr MD CV CARDIAC SERVICES PROCEDU RES Final Result from Last 3 Months Additional Health Concerns Infection Onset Date Last Indicated Resolved Time 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 Insurance [facility] Advance Directives For more information, please contact: [phone] * Comfort Care Only - DO NOT Resuscitate (Latest Code Status on File) Date Activated Date Inactivated Comments 04/11/2024 1:55 PM * Full Code Date Activated Date Inactivated Comments 04/09/2024 4:53 AM 04/11/2024 1:55 PM * Full Code Date Activated Date Inactivated Comments 02/03/2021 9:58 AM 02/04/2021 4:50 AM Care Teams Metal Stamping Machine Operator Relationship Specialty Start Date End Date Darlene Gardner MD [address] [place] [address] PCP - General 07/01/16 Feroz Carty MD [address] [place] [address] [place] [address] PCP - Hospice Attending 04/11/24 Kev Dey MD [address] [place] [address] Referring Physician Nephrology 05/10/19 Amelia Rodrigez DPM [address] [place] [address] Consulting Physician Foot and Ankle Surg 06/28/19 Meghan Cordero MD [address] [place] [address] Referring Physician Dermatology 06/02/21 Dennys Coates MD [address] [place] [address] [place] [address] Consulting Physician Dermatology 06/02/21 Darlene Velasquez MD [address] [place] [address] Consulting Physician Cardiology 06/02/21
--- OUTSIDE RECORDS SUMMARY | 2024-04-15 05:58 | XMS_ITS | Encounter Summary ---
Author Organization [facility] Address [address] [address] Care Team Providers Care Forwarder Operator Name Role Phone Erwin Gardner MD Primary Care Provide r Kev Dey MD Unavailable [phone] Amelia RodrigezM Unavailable [phone] Meghan Cordero MD Unavailable [phone] Dennys Coates MD Unavailable [phone] Erwin Velasquez MD Unavailable [phone] Encounter Details Date Type Department Care Team (Latest Contact Info) Description 09/17/2021 Anticoagulation Visit [facility] Cardiology [facility] [address] Chaz Alonso RN Atrial fibrillation, unspecified type (HCC) (Primary [...] on file 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 Gender Identity Not on file Sexual Orientation Not on file documented as of this encounter Plan of Treatment Not on file documented as of this encounter Visit Diagnoses Diagnosis Atrial fibrillation, unspecified type (HCC)- Primary documented in this encounter Care Teams Forwarder Operator Relationship Specialty Start Date End Date Erwin Gardner MD [address] [place], [place] [id number] PCP - General 07/01/16 Kev Dey MD [address] [place] [address] Referring Physician Nephrology 05/10/19 Amelia Rodrigez DPM [address] [facility] [place] [address] Consulting Physician Foot and Ankle Surg 06/28/19 Meghan Cordero MD [address] [facility] [address] [place] [address] Referring Physician Dermatology 06/02/21 Dennys Coates MD [address] [place] [address] [address] [place] [place] [id number] Consulting Physician Dermatology 06/02/21 Erwin Velasquez MD [address] [facility] [address] [place] [address] Consulting Physician Cardiology 06/02/21 documented as of this encounter
--- OUTSIDE RECORDS SUMMARY | 2024-04-15 05:58 | XMS_ITS | Encounter Summary ---
Author Organization [facility] Healthcare Address [address] [place] [address] Care Team Providers Care Hand Edger Name Role Phone Erwin Gardner MD Primary Care Provide r Kev Dey MD Unavailable [phone] Amelia RodrigezM Unavailable [phone] Meghan Cordero MD Unavailable [phone] Dennys Coates MD Unavailable [phone] Erwin Velasuqez MD Unavailable [phone] Encounter Details Date Type Department Care Team (Latest Contact Info) Description 01/24/2023 Anticoagulation Visit [facility] Medical Group Cardiology [address] [place] [address] Leigh Garcia RN Atrial fibrillation [...] on file 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 Gender Identity Not on file Sexual Orientation Not on file documented as of this encounter Plan of Treatment Not on file documented as of this encounter Visit Diagnoses Diagnosis Atrial fibrillation (CMS/HCC) [I48.91]- Primary documented in this encounter Care Teams Hand Edger Relationship Specialty Start Date End Date Erwin Gardner MD [address] [place] [address] PCP - General 07/01/16 Kev Dey MD [address] [place] [address] Referring Physician Nephrology 05/10/19 Amelia Rodrigez DPM [address] [facility] [place] [address] Consulting Physician Foot and Ankle Surg 06/28/19 Meghan Cordero MD [address] [facility] [address] [place] [address] Referring Physician Dermatology 06/02/21 Dennys Coates MD [address] [place] [address] [address] [place], [place] [id number] Consulting Physician Dermatology 06/02/21 Erwin Velasquez MD [address] [facility] [address] [place], [place] [id number] Consulting Physician Cardiology 06/02/21 documented as of this encounter
--- OUTSIDE RECORDS SUMMARY | 2024-04-15 05:58 | XMS_ITS | Encounter Summary ---
Author Organization [facility] Address [address] [facility] [address] [place] [address] Care Team Providers Care Market Intelligence Consultant Name Role Phone Erwin Gardner MD Primary Care Provide r Kev Dey MD Unavailable [phone] Amelia RodrigezM Unavailable [phone] Meghan Cordero MD Unavailable [phone] Dennys Coates MD Unavailable [phone] Erwin Velasquez MD Unavailable [phone] Encounter Details Date Type Department Care Team (Late st Contact Info) Description 04/06/2022 Telephone [facility] Cardiology [address] [place] [address] Erwin Velasquez MD [address] [place] [address] Social History Tobacco Use Types [...] on file 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 Gender Identity Not on file Sexual Orientation Not on file documented as of this encounter Ordered Prescriptions Prescription Sig Dispense Quantity Refills Last Filled Start Date End Date carvediloL (COREG) 25 mg tabletIndications: hypertension Take 0.5 tablets (12.5 mg total) by mouth 2 (two) times a day with meals 90 tablet 1 04/12/2022 4 carvediloL (COREG) 25 mg tabletIndications: hypertension Take 0.5 tablets (12.5 mg total) by mouth 2 (two) times a day with meals 90 tablet 1 04/06/2022 3 documented in this encounter Miscellaneous Notes * Addendum Note - Edgardo Cifuentes MA - 04/12/2022 9:54 AM CSTAddended by: EDGARDO CIFUENTES on: 04/12/2022 09:54 AM Modules accepted: Orders [employer] * Telephone Encounter - Edgardo Cifuentes MA - 04/12/2022 9:[address] Velasquez, script sent in for carvedilol 25 mg take one-half tablet BID. [employer]IP [employer] * Telephone Encounter - Edgardo Cifuentes MA - 04/08/2022 5:08 PM CST According to the patient's chart, he has not been on carvedilol 25 mg BID since 2019. Will forward to Dr. Velasquez to see if this dose is appropriate. [employer] * Telephone Encounter - Myrna Rahman - 04/08/2022 9:26 AM CST Pt states he has been taking a full tablet of carvedilol twice a day instead of half a tablet. States he is out of this med and pharmacy wont refill. Contact: [employer] * Telephone Encounter - Edgardo Cifuentes MA - 04/06/2022 11:14 AM CST Refills approved and sent to pharmacy as requested. [employer] * Telephone Encounter - Myrna Rahman - 04/06/2022 10:03 AM CST Pt requesting refill for carvedilol 25 mg. Contact: [employer] documented in this encounter Plan of Treatment Not on file documented as of this encounter Visit Diagnoses Not on filedocumented in this encounter Discontinued Medications Medication Sig Discontinue Reason Start Date End Da te carvediloL (COREG) 25 mg tabletIndications:hypert ension Take 0.5 tablets (12.5 mg total) by mouth 2 (two) times a day with meals Reorder 02/14/2022 04/06/2022 carvediloL (COREG) 25 mg tabletIndications:hypert ension Take 0.5 tablets (12.5 mg total) by mouth 2 (two) times a day with meals Reorder 04/06/2022 04/12/2022 documented as of this encounter Care Teams Market Intelligence Consultant Relationship Specialty Start Date End Date Erwin Gardner MD [address] [place] [address] PCP - General 07/01/16 Kev Dey MD [address] [place] [address] Referring Physician Nephrology 05/10/19 Amelia Rodrigez DPM [address] [facility] [place] [address] Consulting Physician Foot and Ankle Surg 06/28/19 Meghan Cordero MD [address] [place] [address] Referring Physician Dermatology 06/02/21 Dennys Coates MD [address] [place] [address] [place] [address] Consulting Physician Dermatology 06/02/21 Erwin Velasquez MD [address] [facility] [address] [place] [address] Consulting Physician Cardiology 06/02/21 documented as of this encounter
--- OUTSIDE RECORDS SUMMARY | 2024-04-15 05:58 | XMS_ITS | Encounter Summary ---
Author Organization [facility] Medical Group Address [address] [facility] [address] [place] [address] Care Team Providers Care Machine Adjuster Helper Name Role Phone Erwin Gardner MD Primary Care Provide r Kev Dey MD Unavailable [phone] Amelia Rodrigez DPM Unavailable [phone] Meghan Cordero MD Unavailable [phone] Dennys Coates MD Unavailable [phone] Erwin Velasquez MD Unavailable [phone] Encounter Details Date Type Department Care Team (Latest Contact Info) Description 04/15/2022 Anticoagulation Visit [facility] Medical [facility] Cardiology [address] [place] [address] Lillian Gallo RN Atrial fibrillation, [...] on file 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 Gender Identity Not on file Sexual Orientation Not on file documented as of this encounter Plan of Treatment Not on file documented as of this encounter Visit Diagnoses Diagnosis Atrial fibrillation, unspecified type (HCC)- Primary documented in this encounter Care Teams Machine Adjuster Helper Relationship Specialty Start Date End Date Erwin Gardner MD [address] [place] [address] PCP - General 07/01/16 Kev Dey MD [address] [place] [address] Referring Physician Nephrology 05/10/19 Amelia Rodrigez DPM [address] [facility] [place] [address] Consulting Physician Foot and Ankle Surg 06/28/19 Meghan Cordero MD [address] [place] [address] Referring Physician Dermatology 06/02/21 Dennys Coates MD [address] [place] [address] [place] [address] Consulting Physician Dermatology 06/02/21 Erwin Velasquez MD [address] [place] [address] Consulting Physician Cardiology 06/02/21 documented as of this encounter
--- OUTSIDE RECORDS SUMMARY | 2024-04-15 05:58 | XMS_ITS | Encounter Summary ---
Author Organization [facility] Healthcare Address [address] [place] [address] Care Team Providers Care Cut Off Tender Glass Name Role Phone Erwin Gardner MD Primary Care Provide r Kev Dey MD Unavailable [phone] Amelia RodrigezM Unavailable [phone] Meghan Cordero MD Unavailable [phone] Dennys Coates MD Unavailable [phone] Erwin Velasquez MD Unavailable [phone] Encounter Details Date Type Department Care Team (Late st Contact Info) Description 03/28/2024 Orders Only [facility] Medical [facility] Cardiology [address] [facility] [address] [place] [address] Ro Carr MD [address] [place] [address] Social History Tobacco Use Types [...] on file 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 Gender Identity Not on file Sexual Orientation Not on file documented as of this encounter Plan of Treatment Not on file documented as of this encounter Procedures Procedure Name Priority Date/Time Associated Diagnosis Comments CARDIOLOGY DOCUMENT SCAN Routine 03/27/2024 3:07 PM BALLOON DIPPER CARDIOLOGY DOCUMENT SCAN Routine 03/24/2024 3:05 PM BALLOON DIPPER documented in this encounter Results * Cardiology Document Scan (03/27/2024 3:07 PM BALLOON DIPPER) Anatomical Region Laterality Modality Other us Jono Nix MD CV CARDIAC SERVICES PROCEDURES Final Result * Cardiology Document Scan (03/24/2024 3:05 PM BALLOON DIPPER) Anatomical Region Laterality Modality Other us Ro Carr MD CV CARDIAC SERVICES PROCEDU RES Final Result documented in this encounter Visit Diagnoses Not on filedocumented in this encounter Care Teams Cut Off Tender Glass Relationship Specialty Start Date End Date Erwin Gardner MD [address] [place] [address] PCP - General 07/01/16 Kev Dey MD [address] [place] [address] Referring Physician Nephrology 05/10/19 Amelia Rodrigez DPM [address] [place] [address] Consulting Physician Foot and Ankle Surg 06/28/19 Meghan Cordero MD [address] [place] [address] Referring Physician Dermatology 06/02/21 Dennys Coates MD [address] [place] [address] [place] [address] Consulting Physician Dermatology 06/02/21 Erwin Velasquez MD [address] [id number] Consulting Physician Cardiology 06/02/21 documented as of this encounter
--- OUTSIDE RECORDS SUMMARY | 2024-04-15 05:58 | XMS_ITS | Encounter Summary ---
Author Organization [facility] Healthcare Address [address] [place] [address] Care Team Providers Care Equipment Specialist Name Role Phone Erwin Gardner MD Primary Care Provide r Kev Dey MD Unavailable [phone] Amelia RodrigezM Unavailable [phone] Meghan Cordero MD Unavailable [phone] Dennys Coates MD Unavailable [phone] Erwin Velasquez MD Unavailable [phone] Encounter Details Date Type Department Care Team (Latest Contact Info) Description 11/15/2023 Anticoagulation Visit [facility] Cardiology [address] [place] [address] Lillian Gallo RN Atrial fibrillation [...] on file 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 Gender Identity Not on file Sexual Orientation Not on file documented as of this encounter Plan of Treatment Not on file documented as of this encounter Visit Diagnoses Diagnosis Atrial fibrillation (CMS/HCC) [I48.91]- Primary documented in this encounter Care Teams Equipment Specialist Relationship Specialty Start Date End Date Erwin Gardner MD [address] [place] [address] PCP - General 07/01/16 Kev Dey MD [address] [place] [address] Referring Physician Nephrology 05/10/19 Amelia Rodrigez DPM [address] [facility] [place] [address] Consulting Physician Foot and Ankle Surg 06/28/19 Meghan Cordero MD [address] [facility] [address] [place] [address] Referring Physician Dermatology 06/02/21 Dennys Coates MD [address] [place] [address] [address] [place] [id number] Consulting Physician Dermatology 06/02/21 Erwin Velasquez MD [address] [facility] [address] [place], [place] [address] Consulting Physician Cardiology 06/02/21 documented as of this encounter
--- OUTSIDE RECORDS SUMMARY | 2024-04-15 05:58 | XMS_ITS | Encounter Summary ---
Author Organization [facility] Medical Group Address [address] [facility] [address] [place] [address] Care Team Providers Care Heavy Duty Truck Mechanic Name Role Phone Erwin Gardner MD Primary Care Provide r Kev Dey MD Unavailable [phone] Amelia Rodrigez DPM Unavailable [phone] Meghan Cordero MD Unavailable [phone] Dennys Coates MD Unavailable [phone] Erwin Velasquez MD Unavailable [phone] Encounter Details Date Type Department Care Team (Latest Contact Info) Description 10/21/2021 Anticoagulation Visit [facility] Cardiology [address] [place] [address] Lillian Gallo RN Atrial fibrillation, [...] on file 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 Gender Identity Not on file Sexual Orientation Not on file documented as of this encounter Plan of Treatment Not on file documented as of this encounter Visit Diagnoses Diagnosis Atrial fibrillation, unspecified type (HCC)- Primary documented in this encounter Care Teams Heavy Duty Truck Mechanic Relationship Specialty Start Date End Date Erwin Gardner MD [address] [place] [address] PCP - General 07/01/16 Kev Dey MD [address] [place] [address] Referring Physician Nephrology 05/10/19 Amelia Rodrigez DPM [address] [facility] [place] [address] Consulting Physician Foot and Ankle Surg 06/28/19 Meghan Cordero MD [address] [place] [address] Referring Physician Dermatology 06/02/21 Dennys Coates MD [address] [place] [address] [place] [address] Consulting Physician Dermatology 06/02/21 Erwin Velasquez MD [address] [place] [address] Consulting Physician Cardiology 06/02/21 documented as of this encounter
--- OUTSIDE RECORDS SUMMARY | 2024-04-15 05:58 | XMS_ITS | Encounter Summary ---
Author Organization [facility] Medical Group Address [address] [facility] [address] [place] [address] Care Team Providers Care Split And Drum Room Supervisor Name Role Phone Erwin Gardner MD Primary Care Provide r Kev Dey MD Unavailable [phone] Amelia RodrigezM Unavailable [phone] Meghan Cordero MD Unavailable [phone] Dennys Coates MD Unavailable [phone] Erwin Velasquez MD Unavailable [phone] Encounter Details Date Type Department Care Team (Late st Contact Info) Description 12/15/2021 Telephone [facility] Medical [facility] Cardiology [address] [place] [address] Erwin Velasquez MD [address] [place] [address] Social History Tobacco Use Types [...] on file 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 Please confirm ok to remain on Losartan * Telephone Encounter - Sherin Best - 12/15/2021 10:34 AM CDT Pt called states F discussed transitioning from Losartan to Entresto,pt states Entresto will costhim $300 out of pocket,pt prefers to stay on Losartan as this did not cost him out of pocket.Pleaseadvise MJF.Pt states this was optional for him.Thank you Contact:[phone] documented in this encounter Plan of Treatment Not on file documented as of this encounter Visit Diagnoses Not on filedocumented in this encounter Discontinued Medications Medication Sig Discontinue Reason Start Date End Da te sacubitriL-valsartan (ENTRESTO) 24-26 mg tabletIndications:chroni c heart failure Take 1 tablet by mouth 2 (two) times a day Cost of medication 11/11/2021 12/15/2021 documented as of this encounter Care Teams Split And Drum Room Supervisor Relationship Specialty Start Date End Date Erwin Gardner MD [address] [place] [address] PCP - General 07/01/16 Kev Dey MD [address] [place] [address] Referring Physician Nephrology 05/10/19 Amelia Rodrigez DPM [address] [place] [address] Consulting Physician Foot and Ankle Surg 06/28/19 Meghan Cordero MD [address] [place] [address] Referring Physician Dermatology 06/02/21 Dennys Coates MD [address] [place] [address] [place] [address] Consulting Physician Dermatology 06/02/21 Erwin Velasquez MD [address] [address] Consulting Physician Cardiology 06/02/21 documented as of this encounter
--- OUTSIDE RECORDS SUMMARY | 2024-04-15 05:58 | XMS_ITS | Encounter Summary ---
Author Organization [facility] Healthcare Address [address] [place] [address] Care Team Providers Care Manufacture Specialist Name Role Phone Erwin Gardner MD Primary Care Provide r Kev Dey MD Unavailable [phone] Amelia RodrigezM Unavailable [phone] Meghan Cordero MD Unavailable [phone] Dennys Coates MD Unavailable [phone] Erwin Velasquez MD Unavailable [phone] Reason for Visit * Consultation (Routine) - Authorized Specialty Diagnoses / Procedures Referred By Contac t Referred To Contact Cardiology Diagnoses Atrial fibrillation, unspecified type (HCC) Erwin Gardner MD [address] [facility] [place] [address] Phone: tel: fax: Erwin Velasquez MD [address] [place] [address] Phone: tel: fax: Referral ID Status Reason Start Date Expiration Date Visits Requested Visits Authorized [id number] Authorized Specialty Services Required 05/12/2023 05/12/2024 12 12 Encounter Details Date Type Department Care Team (Late st Contact Info) Description 05/25/2023 9:15 AM SHAVING 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 Office Visit [facility] Cardiology [address] [place] [address] Erwin Velasquez MD [address] [place] [address] Cardiomyopathy, idiopathic (HCC) (Primary Dx); Atrial fibrillation, unspecified type (HCC) Social History Tobacco Use Types Packs/Day [...] on file 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 Gender Identity Not on file Sexual Orientation Not on file documented as of this encounter Last Filed Vital Signs Vital Sign Reading Time Taken Comments Blood Pressure 116/72 05/25/2023 9:22 AM SHAVING 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 Pulse 80 05/25/2023 9:22 AM SHAVING 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 Temperature - - Respiratory Rate - - Oxygen Saturation 98% 05/25/2023 9:22 AM SHAVING 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 Inhaled Oxygen Concentration - - Weight 144.7 kg (319 lb) 05/25/2023 9:22 AM SHAVING 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 Height 190.5 cm (6' 3 ) 05/25/2023 9:22 AM SHAVING 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 Body Mass Index 39.87 05/25/2023 9:22 AM SHAVING 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 documented in this encounter Progress Notes * Erwin Velasquez MD - 05/25/2023 9:15 AM CST [facility] FOLLOW UP 05/25/2023 Erwin Isaac is a 73 y.o. male [...] and rate controlled. He follows with a seasoning sprayer as well as he has developed some chronic kidney disease. He also has diabetes mellitus complicated by some peripheral neuropathy in the lower extremities. Patient returns for scheduled office follow-up today. He continues to take carvedilol losartan and spironolactone for his cardiomyopathy. There are follow- up notes in his chart from his seasoning sprayer.Does have stage 3 chronic kidney disease which has been stable for several years. He is doing very well and does not describe any symptoms of LV dysfunction or nor any awareness of his atrial fibrillation. His medications have not been adjusted or need to be adjusted in a long time. He is anticipating a screening colonoscopy next month REVIEW OF SYSTEMS General ROS: negative for [...] EVERY DAY, Disp: 90 tablet, Rfl: 0 triamcinolone (KENALOG) 0.1 % cream, Apply topically as needed, Disp: , Rfl: ULTICARE 1 mL 30 gauge x 1/2 syringe, , Disp: , Rfl: warfarin (COUMADIN) 2.5 mg tablet, Take 1 tablet (2.5 mg total) by mouth once a week Monday, Disp: , Rfl: warfarin (COUMADIN) 5 mg tablet, Take 1 tablet (5 mg total) by mouth daily, Disp: 15 tablet, Rfl: 0 erythromycin (ILOTYCIN) ophthalmic ointment, [...] for component: LABALBU PHYSICAL EXAM Vitals BP 116/72 (BP Location: Left arm, Patient Position: Sitting) Pulse 80 Ht 190.5 cm (6' 3 ) Wt (!) 144.7 kg (319 lb) SpO2 98% BMI 39.87 kg/m?? Physical Examination: General appearance -significantly obese [...] rashes, no suspicious skin lesions noted ASSESSMENT Diagnoses and all orders for this visit: Cardiomyopathy, idiopathic (HCC) Atrial fibrillation, unspecified type (HCC) - Ambulatory referral to Cardiology PLAN/RECOMMENDATIONS Will continue to follow the patient at 6 month intervals. Continue guideline directed medical therapy for LV dysfunction and atrial fibrillation. Erwin Velasquez MD ING 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 documented in this encounter Plan of Treatment Not on file documented as of this encounter Visit Diagnoses Diagnosis Cardiomyopathy, idiopathic (HCC)- Primary Other primary cardiomyopathies Atrial fibrillation, unspecified type (HCC) documented in this encounter Historical Medications * This list may reflect changes made after this encounter. semaglutide (OZEMPIC) 0.25 mg or 0.5 mg(2 mg/1.5 mL) pen injector injection Inject 0.25 mg under the skin once a week added in this encounter Orders Outpatient Referral Count Last Ordered Date Fir st Ordered Date AMB REFERRAL TO CARDIOLOGY 1 05/25/2023 documented in this encounter Care Teams Manufacture Specialist Relationship Specialty Start Date End Date Erwin Gardner MD [address] [place] [address] PCP - General 07/01/16 Kev Dey MD [address] [place] [address] Referring Physician Nephrology 05/10/19 Amelia Rodrigez DPM [address] [place] [address] Consulting Physician Foot and Ankle Surg 06/28/19 Meghan Cordero MD [address] [place] [address] Referring Physician Dermatology 06/02/21 Dennys Coates MD [address] [place] [address] Consulting Physician Dermatology 06/02/21 Erwin Velasquez MD [address] [facility] [address] [place], [place] [address] Consulting Physician Cardiology 06/02/21 documented as of this encounter
--- OUTSIDE RECORDS SUMMARY | 2024-04-15 05:58 | XMS_ITS | Encounter Summary ---
Author Organization [facility] Address [address] [place] [address] Care Team Providers Care Resident Care Technician Name Role Phone Erwin Gardner MD Primary Care Provide r Kev Dey MD Unavailable [phone] Amelia RodrigezM Unavailable [phone] Meghan Cordero MD Unavailable [phone] Dennys Coates MD Unavailable [phone] Erwin Velasquez MD Unavailable [phone] Encounter Details Date Type Department Care Team (Late st Contact Info) Description 12/26/2023 Telephone [facility] Vascular and Vein [facility] [address] [place] [phone] Abena Crowder, RN Social History Tobacco Use Types Packs/Day Years [...] on file Legal Sex Male 11:57 AM [employer] Gender Identity Not on file Sexual Orientation Not on file documented as of this encounter Miscellaneous Notes * Telephone Encounter - Abena Crowder RN - 12/26/2023 9:10 AM CDT RN called and spoke with the patient in regards to NO SHOW appointment for his US on 12/21/23. Patient stated that he was unaware that he was scheduled for these appointments. Patient stated that he never received a phone call in regards to these appointments. Ultimately patient decided not to reschedule d/t co pay. documented in this encounter Plan of Treatment Not on file documented as of this encounter Visit Diagnoses Not on filedocumented in this encounter Care Teams Resident Care Technician Relationship Specialty Start Date End Date Erwin Gardner MD [address] [place] [address] PCP - General 07/01/16 Kev Dey MD [address] [place] [address] Referring Physician Nephrology 05/10/19 Amelia Rodrigez DPM [address] [place], [place] [id number] Consulting Physician Foot and Ankle Surg 06/28/19 Meghan Cordero MD [address] [place], [place] [id number] Referring Physician Dermatology 06/02/21 Dennys Coates MD [address] [place] [address] [place] [address] Consulting Physician Dermatology 06/02/21 Erwin Velasquez MD [address] [address] Consulting Physician Cardiology 06/02/21 documented as of this encounter
--- OUTSIDE RECORDS SUMMARY | 2024-04-15 05:58 | XMS_ITS | Encounter Summary ---
Author Organization [facility] Address [address] [place] [address] Care Team Providers Care Color Depositing Machine Tender Name Role Phone Erwin Gardner MD Primary Care Provide r Kev Dey MD Unavailable [phone] Amelia Rodrigez DPM Unavailable [phone] Meghan Cordero MD Unavailable [phone] Dennys Coates MD Unavailable [phone] Erwin Velasquez MD Unavailable [phone] Encounter Details Date Type Department Care Team (Late st Contact Info) Description 07/06/2021 4:02 PM CDT Anesthesia Event [facility] Operating [facility] ([facility]) [facility] [place] [address] Milo Brown MD [address] [facility] [address] [place] [address] Luana Aviles, [employer] [phone] [place] [address] Anesthesia Record Procedure Summary Procedure Name Responsible Anesthesiologist Anesthesia Start Time Anesthesia Stop Time RIGHT UPPER EYELID RECONSTRUCTION (Right: Eye) Milo Brown MD 07/06/21 1602 07/06/21 1826 Events Date Time Event Comment 07/06/2021 1303 In Preop 1348 1602 An Start 1606 In Room 1607 An Start Data 1607 Start Supplemental O2 1614 Anesthesia Ready 1623 Proc Start 1623 Incision Start 1819 Proc Fin 1821 Out of Room 1825 Handoff to RN I completed my handoff to the receiving nurse during which we: 1. Patient identified 2. Responsible provider identified 3. Pertinent medical history reviewed 4. Procedure type and surgical course discussed 5. Intraoperative anesthetic management and any significant issues discussed 6. Expectations and concerns for postop period discussed 7. Questions solicited from receiving nurse 8. Patient disposition at the time of handoff: PACU 1825 An Stop Meds Name Total midazolam PF 2 mg lidocaine (cardiac) syringe 2 % 60 mg propofol 30 mg fentaNYL 200 mcg dexmedeTOMIDine vial 4 mcg/mL 16 mcg Lactated Ringer's (LR) infusion 600 mL * Agents Name O2% N2O O2 * Blood No blood administrations on file. Lines, Drains, and Airways Type Details Placement Removal RETIRED Surgical Site Left; Eye; 4 (Retired LDA, Removed/Completed by [facility] with LDA Utility); 1213 (Retired LDA, Removed/Completed by [facility] with LDA Utility) 07/06/21 1821 by 03/05/24 1213 by Discharge Provider, Automatic RETIRED Surgical Site 06/28/19; 1236; Le ft; Toe (Comment which one); BIG TOE; 03/05/24 (Retired LDA, Removed/Completed by [facility] with LDA Utility); 1213 (Retired LDA, Removed/Completed by [facility] with LDA Utility) 06/28/19 1236 by Arcelia Ferreira, CHAUNCEY 03/05/24 1213 by Discharge Provider, Automatic RETIRED Surgical Site 02/03/21; 0948; Lateral, Left, Lower; Abdomen; gauze with tegaderm cover, clean dry and intact; 03/05/24 (Retired LDA, Removed/Completed by [facility] with LDA Utility); 1213 (Retired LDA, Removed/Completed by [facility] with LDA Utility) 02/03/21 0948 by Rufina Mccullough RN 03/05/24 1213 by Discharge Provider, Automatic Peripheral IV Placement Date: 07/06/21; Placement Time: 1414; Catheter Size: 22 G; Orientation: Right, Posterior; Location: Hand; Site Prep: Chlorhexidine; Insertion Attempts: 1; Patient Tolerance: Tolerated well; Removal Date: 07/06/21; Removal Time: 190107/06/21 141 by Radha Faulkner RN 07/06/21 190 by Amy Naylor RN RETIRED Surgical Site 07/06/21; 1627; Right; Eye; 03/05/24 (Retired LDA, Removed/Completed by [employer] with LDA Utility); 1213 (Retired LDA, Removed/Completed by [employer] with LDA Utility) 07/06/21 1627 by Jeannine Menendez RN 03/05/24 1213 by Discharge Provider, Automatic RETIRED Surgical Site 07/06/21; 1820; Le ft; Eye; donor skin graft site; 03/05/24 (Retired LDA, Removed/Completed by [employer] with LDA Utility); 1213 (Retired LDA, Removed/Completed by [employer] with LDA Utility) 07/06/21 1820 by Nuvia Crisostomo RN 03/05/24 1213 by Discharge Provider, Automatic documented in this encounter Social History Tobacco [...] on file 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 Gender Identity Not on file Sexual Orientation Not on file documented as of this encounter OR Notes * Anesthesia Postprocedure Evaluation - Ilia Tariq MD - 07/06/2021 6:57 PM CDT Patient: Erwin Isaac Procedure Summary Date: 07/06/21 Room / Location: [facility] CAM OR POD 4 ROOM N / [facility] CAM OR POD 4 Anesthesia Start: 1602 Anesthesia Stop: 1825 Procedures: RIGHT UPPER EYELID RECONSTRUCTION (Right Eye) GRAFT SKIN FULL THICKNESS TAKEN FROM UPPER LEFT EYE (Left Eye) Diagnosis: Basal cell carcinoma of right upper eyelid (Basal cell carcinoma of right upper eyelid [C44.1121]) Surgeons: Renaldo Eisenberg MD Responsible Provider: Milo Brown MD Anesthesia Type: general ASA Status: 3 Anesthesia Type: general Last vitals BP 133/56 Pulse 69 Temp 36.2 ??C (97.2 ??F) (Temporal) Resp 14 SpO2 97% Anesthesia Post Evaluation Patient location during evaluation: PACU Patient participation: complete - patient participated Level of consciousness: fully awake Pain management: adequate Airway patency: adequate Cardiovascular status: acceptable and hemodynamically stable Respiratory status: acceptable and room air Hydration status: euvolemic Pt is: normothermic Nausea/Vomiting status: none No complications documented. * Anesthesia Preprocedure Evaluation - Milo Brown MD - 06/24/2021 4:37 PM CDT Images from the original note were not included. [facility] for Preoperative Assessment and Planning Preoperative Evaluation Record Evaluation type/location: TPAP from [facility] Planned procedure site: [facility] CAM OR (Pod 4) Date: 06/24/21 NOTE: This note represents a preoperative evaluation initiated via telephone interview. NO PHYSICALEXAM was performed at the time of initial assessment. A physical exam may be added to this note anddocumented below. Anesthesia Evaluation Erwin Isaac is a 71 y.o. male Procedure(s): RIGHT UPPER EYELID RECONSTRUCTION GRAFT SKIN FULL THICKNESS Pre-Op Diagnosis Codes: * Basal cell carcinoma of right upper eyelid [C44.1121] HISTORY HPI Erwin Isaac is a pleasant 71 yo M who is being evaluated prior to undergoing surgical intervention for further management of Basal cell carcinoma of right upper eyelid Past Medical History Information obtained from: patient and chart. Neurological Pertinent negatives: seizures; neuromuscular disease; CVA/stroke and TIA Cardiovascular + Hypertension + Hyperlipidemia (statin) + CHF (NICM...last admission c2016) PRIOR CHF HOSPITALIZATIONS. CHF Etiology: unknown. + Atrial fibrillation/flutter (warfarin... managed by cards... [id number] (4)) - Rhythm type: unknown. Pertinent negatives: [place] ; arrhythmia; pacemaker/ICD and DVT/PE Comments: Dr Erwin Esteban ([facility]) - last visit ~ 1 month ago for INR - warfarin dose did not require adjusting Respiratory Pertinent negatives: COPD; asthma; no O2 use outside the hospital and non-smoker SLEEP APNEA FOR ADULT PAT: NEGATIVE study ~ 5-6 years ago; has gained considerable wt subsequent to. Hepatic / Heme + History of anemia (HGB 11.1 (02/2021)) Pertinent negatives: liver disease Gastrointestinal Pertinent negatives: GERD Renal / + Renal disease (CKD 3) Comments: Ent Surgeon out of [place] Musculoskeletal/Pain + Chronic pain (diabetic neuropathy in feet) Endocrine / Other + Diabetes mellitus - Diabetes type 2. Diabetic complications: neuropathy and nephropathy. Outpatient insulin use: current. Pt reported low glucose range is 120. Pt reported high glucose range is 200. Pt reported HgA1c: 10.1%. + Obesity (BMI >30) (40.44kg/m2) + Cancer history Cancer type: BCCa to R upper eyelid. + Rheumatological disease (MGUS) Pertinent negatives: thyroid disease and infectious disease Comments: Looking to establish care w [facility] for uncontrolled DM2 > will be asking for referral to sales agent food vending service Last A1c 10.1% <<< 9% Concedes to dietary indiscretion Single hypoglycemic event in middle of night (46) did not need medical attention Functional Capacity Functional capacity: <4 METs Comments: Moves slowly r/t neuropathy in feet - no recent change in activity tolerance Review of Systems + chronic pain (diabetic neuropathy in feet) Pertinent negatives: productive cough; SOB; recent cold/flu; fever; chest pain; orthopnea; PND; previous transfusion; easy bruising; bleeding problems; syncope; heartburn; nausea and dysphagia PAT Summary and Plans Cardiac risk classification of planned procedure: low cardiac risk. Disposition: suitable for outpatient surgery center. Preoperative assessment status: complete. Additional comments: Erwin Alfredo Isaac is a 71 y.o. male who is being evaluated prior to undergoing a low cardiac risk surgery. Revised Cardiac Risk Index factors are (history of CHF and insulin therapyfor diabetes) for a total RCRI of 2 out of 6. Functional capacity is <4 METs (specifically:neuropathy). Obstructive sleep apnea (BENITO) screening status is STOP-Bang=6 suggesting HIGH RISK for BENITO. >The patient is at elevated risk for obstructive sleep apnea (BENITO) per STOP-BANG screening questionnaire results. Patient informed of the possibility that they have undiagnosed BENITO, which may increase their risk for perioperative respiratory events. Patient also informed of the possible long-term health problems associated with BENITO. Because we do not feel that preoperative BENITO testing is likely to outweigh the downsides of delaying surgery, we have recommended that the patient talk to their primary doctor or other clinician after surgery about getting tested for BENITO. > BENITO order set initiated NOTE : This assessment was performed via telephone. Therefore the physical exam has been deferred to the day of surgery team. The patient was provided with preoperative instructions for their medications. Patient instructions were provided by telephone and electronically sent via [employer]. Patient verbalized understanding of preoperative plan. Blood bank needs for day of procedure: No type and screen needed Pending labs/tests include: None DOS labs : POCT glucose and INR Patient's COVID19 status is: Unexposed. The patient currently has no concerning symptoms of COVID19. . Patient's COVID-19 vaccination status is Up to date with mRNA vaccine. Documentation of vaccination status is available in the [employer] Immunization tab. . Plan for pre-procedure COVID19 testing: Patient is asymptomatic and up to date with their COVID-19 vaccine. COVID-19 testing not indicated. >>Pt is taking warfarin for Afib ([id number] 4) . Per CPAP Ophthalmology Anticoagulation Management protocol, ok to continue. Instructions given to patient w good understanding and agreement voiced to this plan. >>uncontrolled DM2 (A1C 10.1% <<< 9%): concedes to dietary indiscretion; has been referred to manager hardware and will ask for a consult to see sales agent food vending service as well; BG readings have improved from above 200s - 300s to 150-200 w recent adjustments made to insulin (NPH 60 BID and increasing SSI) - stressed import of tighter glycemic control - encouraged to follow ADA dietary guidelines - understands his surgery could be delayed if BG too high on DOS TPAP complete Preoperative evaluation performed by Luana Aviles NP on 06/24/21 at 4:59 PM . Patient Active Problem List Diagnosis ??? Atrial fibrillation (CMS/HCC) [I48.91] ??? Cardiomyopathy, idiopathic (CMS/HCC) (HCC) ??? MGUS (monoclonal gammopathy of unknown significance) ??? Basal cell carcinoma of right upper eyelid Past Medical History: Diagnosis Date ??? Adiposity Obesity ??? Atrial fibrillation (CMS/HCC) (HCC) afib ??? CHF (congestive heart failure) (CMS/HCC) (HCC) ??? Chronic kidney disease Stage III ??? Hyperlipidemia ??? Hypertension Hypertension ??? Neuropathy (CMS/HCC) Feet ??? Type 2 diabetes mellitus (HCC) Past Surgical History: Procedure Laterality Date ??? BIOPSY 2018 bone biopsy ??? CATARACT EXTRACTION Bilateral 2016 ??? US GUIDED BIOPSY RENAL N/A 02/03/2021 No Known Allergies Med List Status: Nurse Complete Set By: Rufina Ureña RN at 06/24/2021 2:41 PM Taking? Last Dose Start Date End Date Provider acetaminophen (TYLENOL) 500 mg tablet 06/23/2021 -- -- Ashly Deluna MD atorvastatin (LIPITOR) 20 mg tablet 06/23/2021 12/16/20 -- Erwin Velasquez MD Take 1 tablet (20 mg total) by mouth daily Patient taking differently: Take 20 mg by mouth nightly carvediloL (COREG) 25 mg tablet 06/24/2021 -- -- Ashly Deluna MD fenofibrate (TRIGLIDE) 160 mg tablet 06/24/2021 05/24/21 -- Erwin Velasquez MD TAKE 1 TABLET BY MOUTH EVERY DAY Patient taking differently: Take 160 mg by mouth diabetic educator before breakfast fish oil-dha-epa 1,200-144-216 mg capsule Past Month -- -- Ashly Deluna MD furosemide (LASIX) 80 mg tablet 06/24/2021 01/21/21 -- Erwin Velasquez MD TAKE 1.5 TABLETS (120 MG TOTAL) BY MOUTH DAILY Patient taking differently: Take 120 mg by mouth diabetic educator before breakfast insulin NPH (HumuLIN N, NovoLIN N) 100 unit/mL vial for injection 06/24/2021 -- -- Ashly Deluna MD insulin regular (HumuLIN R, NovoLIN R) 100 unit/mL injection 06/24/2021 -- -- Ashly Deluna MD Klor-Con M20 20 mEq CR tablet 06/24/2021 05/24/21 -- Erwin Velasquez MD TAKE 1 TABLET BY MOUTH EVERY DAY Patient taking differently: Take 1 mEq by mouth diabetic educator before breakfast losartan (COZAAR) 50 mg tablet 06/24/2021 05/17/21 -- Erwin Velasquez MD TAKE 1 TABLET BY MOUTH EVERY DAY Patient taking differently: Take 50 mg by mouth diabetic educator before breakfast spironolactone (ALDACTONE) 50 mg tablet 06/24/2021 06/16/21 -- Erwin Velasquez MD TAKE 1 TABLET BY MOUTH EVERY DAY Patient taking differently: Take 50 mg by mouth diabetic educator before breakfast triamcinolone (KENALOG) 0.1 % cream Past Week 05/29/21 -- Ashly Deluna MD ULTICARE 1 mL 30 gauge x 1/2 syringe 05/24/17 -- Ashly Deluna MD warfarin (COUMADIN) 2.5 mg tablet Past Week -- -- Ashly Deluna MD warfarin (COUMADIN) 5 mg tablet 06/24/2021 03/16/21 -- Erwin Velasquez MD TAKE 1 TABLET BY MOUTH EVERY DAY Patient taking differently: Take 5 mg by mouth 6 days a week No current facility-administered medications for this encounter. Current Outpatient Medications: ??? acetaminophen (TYLENOL) 500 mg tablet ??? atorvastatin (LIPITOR) 20 mg tablet ??? carvediloL (COREG) 25 mg tablet ??? fenofibrate (TRIGLIDE) 160 mg tablet ??? fish oil-dha-epa 1,200-144-216 mg capsule ??? furosemide (LASIX) 80 mg tablet ??? insulin NPH (HumuLIN N, NovoLIN N) 100 unit/mL vial for injection ??? insulin regular (HumuLIN R, NovoLIN R) 100 unit/mL injection ??? Klor-Con M20 20 mEq CR tablet ??? losartan (COZAAR) 50 mg tablet ??? spironolactone (ALDACTONE) 50 mg tablet ??? triamcinolone (KENALOG) 0.1 % cream ??? warfarin (COUMADIN) 2.5 mg tablet ??? warfarin (COUMADIN) 5 mg tablet ??? ULTICARE 1 mL 30 gauge x 1/2 syringe Social History Tobacco Use Smoking Status Never Smoker Smokeless Tobacco Never Used Substance and Sexual Activity Alcohol Use No Substance and Sexual Activity Drug Use No Family History Problem Relation Age of Onset ??? Coronary artery disease Mother Coronary artery disease, premature; ??? Cataracts Sister ??? Cataracts Brother ??? Blindness Neg Hx ??? Diabetes Neg Hx ??? Glaucoma Neg Hx ??? Macular degeneration Neg Hx ??? Retinal detachment Neg Hx ??? Strabismus Neg Hx ??? Thyroid disease Neg Hx ??? Anesthesia problems Neg Hx ??? Malig Hyperthermia Neg Hx ??? Pseudochol deficiency Neg Hx There were no vitals filed for this visit. PT: 06/08/2021: 21.5 sec (H) INR: 06/08/2021: 2.2 (H) APTT: No results found for requested labs within last 720 hours. Hgb A1C: No results found for requested labs within last 720 hours. CBC RBC: No results found for requested labs within last 720 hours. RDW: No results found for requested labs within last 720 hours. MCHC: No results found for requested labs within last 720 hours. MCH: No results found for requested labs within last 720 hours. MCV: No results found for requested labs within last 720 hours. Hct: No results found for requested labs within last 720 hours. Hgb: No results found for requested labs within last 720 hours. WBC: No results found for requested labs within last 720 hours. MPV: No results found for requested labs within last 720 hours. Platelets: No results found for requested labs within last 720 hours. RDW CV: No results found for requested labs within last 720 hours. RDW Sd: No results found for requested labs within last 720 hours. BMP Glucose: No results found for requested labs within last 720 hours. Calcium: No results found for requested labs within last 720 hours. Sodium: No results found for requested labs within last 720 hours. Potassium: No results found for requested labs within last 720 hours. CO2: No results found for requested labs within last 720 hours. Chloride: No results found for requested labs within last 720 hours. BUN: No results found for requested labs within last 720 hours. Creatinine: No results found for requested labs within last 720 hours. Marcos index score: 95 DOS Physical Exam Medical history, medications, and allergies reviewed. Attestation: I endorse the findings of the anesthesia pre-evaluation assessment dated: 06/24/2021. Airway Exam: Mallampati: III Cervical ROM: limited extension TM distance: normal Cardiovascular Exam: Rate: regular Rhythm: irregular Pulmonary Exam: LCTA, bilat EENT Exam: trachea midline Dental Exam: Appears intact Skin Exam: Skin is warm. Turgor is normal. Abdominal Exam: Abdomen is soft. Current state: Patient's current state is cooperative and interactive. Anesthesia Plan ASA 3 My patient is approved for the Anesthesia Controlled Medication protocol when under care of a COTTON GRADER Planned anesthesia: General Team communication plan: oral ET tube Induction: Induction: intravenous. Postoperative Plan: Postoperative administration opioids intended. No postoperative mechanical ventilation intended. Patient's planned disposition post procedure is Outpatient. Planned trial extubation. Informed Consent: Discussed plan with COTTON GRADER. Anesthesia plan and risks discussed with patient. Consent and Attending signature: I and/or my designee have discussed the anesthesia plan, benefits, possible alternatives, parental presence at time of induction (if indicated), and clinically relevant risks that may include dental injury, unintentional awareness, and/or other complications. The patient and/or parent/legal guardian understand, and agree to proceed. All questions answered. documented in this encounter Plan of Treatment Not on file documented as of this encounter Visit Diagnoses Not on filedocumented in this encounter Administered Medications Inactive Administered Medications - up to 3 most recent administrations Medication Order MAR Action Action Date Dose Rate Site dexmedeTOMIDine (PRECEDEX) 80 mcg/20 mL (4 mcg/mL) in sodium chloride 0.9% (premix) intravenous, As needed, Starting on Mon07/06/21 at 1655, Anesthesia Intra-op Given 07/06/2021 5:24 PM CDT 4 mcg Given 07/06/2021 5:04 PM CDT 8 mcg Given 07/06/2021 4:55 PM CDT 4 mcg fentaNYL (SUBLIMAZE) preservative free injection intravenous, As needed, Starting on Mon07/06/21 at 1604, Anesthesia Intra-op Given 07/06/2021 5:24 PM CDT 50 mcg Given 07/06/2021 5:08 PM CDT 50 mcg Given 07/06/2021 4:57 PM CDT 25 mcg Lactated Ringer's (LR) infusion 30 mL/hr, intravenous, Continuous, Starting on Mon07/06/21 at 1415 Rate/Dose Verify 07/06/2021 4:02 PM CDT 30 mL/hr New Bag 07/06/2021 2:16 PM CDT 30 mL/hr 30 mL/hr lidocaine (cardiac) (XYLOCAINE) preservative free injection intravenous, As needed, Starting on Mon07/06/21 at 1610, Anesthesia Intra-op, Indications: Ventricular ArrhythmiasIndications:Ventricular Arrhythmias Given 07/06/2021 4:10 PM CDT 60 mg midazolam (VERSED) 1 mg/mL preservative free injection intravenous, Administer over 2 Minutes, As needed, Starting on Mon07/06/21 at 1604, Anesthesia Intra-op Given 07/06/2021 4:10 PM CDT 1 mg Given 07/06/2021 4:04 PM CDT 1 mg propofoL (DIPRIVAN) 10 mg/mL IV intravenous, As needed, Starting on Mon07/06/21 at 1614, Anesthesia Intra-op Given 07/06/2021 4:16 PM CDT 10 mg Given 07/06/2021 4:14 PM CDT 20 mg documented in this encounter Care Teams Color Depositing Machine Tender Relationship Specialty Start Date End Date Erwin Gardner MD [address] [place] [address] PCP - General 07/01/16 Kev Dey MD [address] [place] [address] Referring Physician Nephrology 05/10/19 Amelia Rodrigez DPM [address] [place] [address] Consulting Physician Foot and Ankle Surg 06/28/19 Meghan Cordero MD [address] [place] [address] Referring Physician Dermatology 06/02/21 Dennys Coates MD [address] [place] [address] [place] [address] Consulting Physician Dermatology 06/02/21 Erwin Velasquez MD [address] [place] [address] Consulting Physician Cardiology 06/02/21 documented as of this encounter
--- OUTSIDE RECORDS SUMMARY | 2024-04-15 05:58 | XMS_ITS | Encounter Summary ---
Author Organization [facility] Address [address] [place] [address] Phone Care Team Providers Care Entry Driver Operator Name Role Phone Erwin Gardner MD Primary Care Provide r Kev Dey MD Unavailable [phone] Amelia Rodrigez DPM Unavailable [phone] Meghan Cordeor MD Unavailable [phone] Dennys Coates MD Unavailable [phone] Erwin Velasquez MD Unavailable [phone] Reason for Visit * Reason Comments F/U s/p Basal cell removal rt upper eyel id Encounter Details Date Type Department Care Team (Late st Contact Info) Description 10/06/2021 9:00 AM CDT Office Visit [facility] Ophthalmology [address] [facility] 6th [place] [address] Renaldo Eisenberg MD [address] [facility] [address] [place] [address] Basal cell carcinoma of right upper eyelid (Primary Dx) Social History Tobacco Use Types [...] on file 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 Date of Visit: 10/06/2021 Patient Name: Erwin Isaac Age: 71 y.o. Gender: male : 1950 Primary Care Provider: Erwin Gardner MD Referring Provider: Dennys Coates, * Problem List Items Addressed This Visit Eye/Vision Problems Basal cell carcinoma of right upper eyelid - Primary Relevant Medications mupirocin (BACTROBAN) 2 % ointment Last Surgical Procedure: Right Upper Eyelid Reconstruction - Right and Graft Skin Full Thickness Taken From Upper Left Eye -Left 07/06/2021 History: Returns following right upper eyelid reconstruction for basal cell. He feels he is doing well. No tearing. Examination: Base Eye Exam Visual Acuity (Snellen - Linear) Right Left Dist cc 20/25 20/20 Correction: Glasses Tonometry (Tonopen, 9:13 AM) Right Left Pressure 15 14 Pupils Dark Light Shape React APD Right 3.5 3 Round Minimal None Left 3.5 3 Round Minimal None Extraocular Movement Right Left Full Full No discomfort with eye movement Neuro/Psych Oriented x3: Yes Mood/Affect: Normal Slit Lamp and Fundus Exam External Exam The flap and graft are well healed. Full closure. There is a small arc of contracture around the graft which is placing slight tension minimally everting the upper punctum. Slit Lamp Exam Right Left Conjunctiva/Sclera White and quiet White and quiet Cornea Clear Clear Anterior Chamber Deep and quiet Deep and quiet Iris Round and reactive Round and reactive Lens Posterior chamber intraocular lens Posterior chamber intraocular lens Impression: Doing well following Mohs surgery and reconstruction. There is slight punctal eversion secondary to graph contracture. The patient is asymptomatic and we recommended observation. He will contact us should he develop new symptoms or other concerns. He is aware the need for routine dermato logic exams and sun protection. Return p.r.n.. I have personally examined the patient, participated in all aspects of their care, and formulated the treatment plan. documented in this encounter Plan of Treatment Not on file documented as of this encounter Visit Diagnoses Diagnosis Basal cell carcinoma of right upper eyelid- Primary documented in this encounter Historical Medications * This list may reflect changes made after this encounter. mupirocin (BACTROBAN) 2 % ointment APPLY A SMALL AMOUNT TO THE AFFECTED AREA(S) ON LEG 3 TIMES DAILY 08/31/2021 clindamycin (CLEOCIN) 300 mg capsule Take 300 mg by mouth every 6 (six) hours 09/22/2021 05/19/2022 added in this encounter Eye Exam Visual Acuity (Snellen - Linear) Right eye Left eye Dist cc 20/25 20/20 Correction: Glasses Tonometry (Tonopen, 9:13 AM) Right eye Left eye Pressure 15 14 Pupils Dark Light Shape React APD Right eye 3.5 3 Round Minimal None Left eye 3.5 3 Round Minimal None Extraocular Movement Right eye Left eye Full Full No discomfort with eye movement Neuro/Psych Oriented x3: Yes Mood/Affect: Normal External Exam The flap and graft are well healed. Full closure. There is a small arc of contracture around the graft which is placing slight tension minimally everting the upper punctum. Slit Lamp Exam Right eye Left eye Conjunctiva/Sclera White and quiet White and dee dee et Cornea Clear Clear Anterior Chamber Deep and quiet Deep and quiet Iris Round and reactive Round and brian ctive Lens Posterior chamber in traocular lens Posterior chamber intraocular lens Care Teams Entry Driver Operator Relationship Specialty Start Date End Date Erwin Gardner MD [address] [place] [address] PCP - General 07/01/16 Kev Dey MD [address] [place] [address] Referring Physician Nephrology 05/10/19 Amelia Rodrigez DPM [address] [facility] [place] [address] Consulting Physician Foot and Ankle Surg 06/28/19 Meghan Cordero MD [address] [place] [address] Referring Physician Dermatology 06/02/21 Dennys Coates MD [address] [place] [address] [place] [address] Consulting Physician Dermatology 06/02/21 Erwin Velasquez MD [address] [address] Consulting Physician Cardiology 06/02/21 documented as of this encounter
--- OUTSIDE RECORDS SUMMARY | 2024-04-15 05:58 | XMS_ITS | Encounter Summary ---
Author Organization [facility] Address [address] [place] [address] Phone Care Team Providers Care Baccarat Dealer Name Role Phone Erwin Gardner MD Primary Care Provide r Kev Dey MD Unavailable [phone] Amelia RodrigezM Unavailable [phone] Meghan Cordero MD Unavailable [phone] Dennys Coates MD Unavailable [phone] Erwin Velasquez MD Unavailable [phone] Encounter Details Date Type Department Care Team (Late st Contact Info) Description 07/28/2021 8:00 AM CDT Office Visit [facility] Ophthalmology [address] [facility] Outpatient Health 6th [place] [address] Renaldo Eisenberg MD [address] [facility] [place] [address] Basal cell carcinoma of right [...] on file 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 Date of Visit: 07/28/2021 Patient Name: Erwin Isaac Age: 71 y.o. Gender: male : 1950 Primary Care Provider: Erwin Gardner MD Referring Provider: Dennys Coates, * Problem List Items Addressed This Visit Eye/Vision Problems Basal cell carcinoma of right upper eyelid - Primary Last Surgical Procedure: Right Upper Eyelid Reconstruction - Right and Graft Skin Full Thickness Taken From Upper Left Eye -Left 07/06/2021 History: Returns following Mohs surgery and right upper eyelid reconstruction with flap and graft. He feels he is doing well. Examination: Base Eye Exam Visual Acuity (Snellen - Linear) Right Left Dist cc 20/25 20/25+1 Correction: Glasses Neuro/Psych Oriented x3: Yes Mood/Affect: Normal Slit Lamp and Fundus Exam External Exam The flap is well healed. I removed 1 residual suture. There is a nodular area of the medial skin graft and some thickening of the remaining graft. Full closure Slit Lamp Exam Right Left Conjunctiva/Sclera White and quiet White and quiet Cornea Clear Clear Anterior Chamber Deep and quiet Deep and quiet Iris Round and reactive Round and reactive Lens Posterior chamber intraocular lens Posterior chamber intraocular lens Impression: Overall were doing well. There is some thickening of the skin graft and also an area ofnodularity. We have discussed the pros and cons of steroid injection including visual loss. Electedto proceed. The graft was then injected with 0.05ml Kenalog 10 milligrams/mL without incident or change in vision. I also opened the nodular area that appeared to represent a keratinous cyst. He will call should he have concerns. Return in 2 months. I have personally examined the patient, participated in all aspects of their care, and formulated the treatment plan. documented in this encounter Plan of Treatment Not on file documented as of this encounter Visit Diagnoses Diagnosis Basal cell carcinoma of right upper eyelid- Primary documented in this encounter Eye Exam Visual Acuity (Snellen - Linear) Right eye Left eye Dist cc 20/25 20/25+1 Correction: Glasses Neuro/Psych Oriented x3: Yes Mood/Affect: Normal External Exam The flap is well healed. I removed 1 residual suture. There is a nodular area of the medial skin graft and some thickening of the remaining graft. Full closure Slit Lamp Exam Right eye Left eye Conjunctiva/Sclera White and quiet White and dee dee et Cornea Clear Clear Anterior Chamber Deep and quiet Deep and quiet Iris Round and reactive Round and brian ctive Lens Posterior chamber in traocular lens Posterior chamber intraocular lens Care Teams Baccarat Dealer Relationship Specialty Start Date End Date Erwin Gardner MD [address] [place] [address] PCP - General 07/01/16 Kev Dey MD [address] [place] [address] Referring Physician Nephrology 05/10/19 Amelia Rodrigez DPM [address] [place] [address] Consulting Physician Foot and Ankle Surg 06/28/19 Meghan Cordero MD [address] [place] [address] Referring Physician Dermatology 06/02/21 Dennys Coates MD [address] [place] [address] Consulting Physician Dermatology 06/02/21 Erwin Velasquez MD [address] [address] Consulting Physician Cardiology 06/02/21 documented as of this encounter
--- OUTSIDE RECORDS SUMMARY | 2024-04-15 05:58 | XMS_ITS | Encounter Summary ---
Author Organization [facility] Address [address] [place] [address] Care Team Providers Care Banquet Food Server Name Role Phone Erwin Gardner MD Primary Care Provide r Kev Dey MD Unavailable [phone] Amelia Rodrigez DPM Unavailable [phone] Meghan Cordero MD Unavailable [phone] Dennys Coates MD Unavailable [phone] Erwin Velasquez MD Unavailable [phone] Reason for Visit * Reason Onset Date Comments Med Refill 01/31/2024 Encounter Details Date Type Department Care Team (Late st Contact Info) Description 01/31/2024 Telephone [facility] Cardiology [address] [facility] [address] [place] [address] Erwin Velasquez MD [address] [facility] [address] [place] [address] Med Refill Social History Tobacco Use Types Packs/Day Years [...] on file 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 Gender Identity Not on file Sexual Orientation Not on file documented as of this encounter Ordered Prescriptions Prescription Sig Dispense Quantity Refills Last Filled Start Date End Date warfarin (COUMADIN) 5 mg tablet Take 1 tablet (5 mg total) by mouth daily 30 tablet 1 01/31/2024 02/23/2024 documented in this encounter Miscellaneous Notes * Telephone Encounter - Leigh King MA - 01/31/2024 1:43 PM CDT 30 day supply with one refill sent as recommended by CHAUNCEY Snyder * Telephone Encounter - Brit Aguilar - 01/31/2024 1:21 PM CDT Patient requesting refill for warfarin (COUMADIN) 5 mg with 90 day supply. Please send to [facility] pharmacy. Thank you. Contact [phone] documented in this encounter Plan of Treatment Not on file documented as of this encounter Visit Diagnoses Not on filedocumented in this encounter Discontinued Medications Medication Sig Discontinue Reason Start Date End Da te warfarin (COUMADIN) 5 mg tablet Take 1 tablet (5 mg total) by mouth daily Reorder 04/19/2023 01/31/2024 documented as of this encounter Care Teams Banquet Food Server Relationship Specialty Start Date End Date Erwin Gardner MD [address] [place] [address] PCP - General 07/01/16 Kev Dey MD [address] [place] [address] Referring Physician Nephrology 05/10/19 Amelia Rodrigez DPM [address] [place] [address] Consulting Physician Foot and Ankle Surg 06/28/19 Meghan Cordero MD [address] [place] [address] Referring Physician Dermatology 06/02/21 Dennys Coates MD [address] [place] [address] [place] [address] Consulting Physician Dermatology 06/02/21 Erwin Velasquez MD [address] [place] [address] [place] [address] Consulting Physician Cardiology 06/02/21 documented as of this encounter
--- OUTSIDE RECORDS SUMMARY | 2024-04-15 05:58 | XMS_ITS | Encounter Summary ---
Author Organization [facility] Address [address] [facility] [address] [place] [address] Care Team Providers Care Manager Corporate Responsibility Name Role Phone Erwin Gardner MD Primary Care Provide r Kev Dey MD Unavailable [phone] Amelia Rodrigez DPM Unavailable [phone] Meghan Cordero MD Unavailable [phone] Dennys Coates MD Unavailable [phone] Erwin Velasquez MD Unavailable [phone] Encounter Details Date Type Department Care Team (Latest Contact Info) Description 09/15/2022 Anticoagulation Visit [facility] Cardiology [address] [place] [address] Vicky Ugalde, RN Atrial fibrillation, [...] on file 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 Gender Identity Not on file Sexual Orientation Not on file documented as of this encounter Plan of Treatment Not on file documented as of this encounter Visit Diagnoses Diagnosis Atrial fibrillation, unspecified type (HCC)- Primary documented in this encounter Care Teams Manager Corporate Responsibility Relationship Specialty Start Date End Date Erwin Gardner MD [address] [place] [address] PCP - General 07/01/16 Kev Dey MD [address] [place] [address] Referring Physician Nephrology 05/10/19 Amelia Rodrigez DPM [address] [facility] [place] [address] Consulting Physician Foot and Ankle Surg 06/28/19 Meghan Cordero MD [address] [place] [address] Referring Physician Dermatology 06/02/21 Dennys Coates MD [address] [place] [address] [place] [address] Consulting Physician Dermatology 06/02/21 Erwin Velasquez MD [address] [address] [place] [address] Consulting Physician Cardiology 06/02/21 documented as of this encounter
--- OUTSIDE RECORDS SUMMARY | 2024-04-15 05:58 | XMS_ITS | Encounter Summary ---
Author Organization [facility] Address [address] [place] [address] Care Team Providers Care Loader Engineer Name Role Phone Erwin Gardner MD Primary Care Provide r Kev Dey MD Unavailable [phone] Amelia RodrigezM Unavailable [phone] Meghan Cordero MD Unavailable [phone] Dennys Coates MD Unavailable [phone] Erwin Velasquez MD Unavailable [phone] Encounter Details Date Type Department Care Team (Latest Contact Info) Description 11/07/2023 Anticoagulation Visit [facility] Cardiology [address] [place] [address] Vicky Ugalde, RN Atrial fibrillation (CMS/HCC) [I48.91] (Primary Dx) [...] on file 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[employer] Gender Identity Not on file Sexual Orientation Not on file documented as of this encounter Plan of Treatment Not on file documented as of this encounter Visit Diagnoses Diagnosis Atrial fibrillation (CMS/HCC) [I48.91]- Primary documented in this encounter Care Teams Loader Engineer Relationship Specialty Start Date End Date Erwin Gardner MD [address] [place], [place] [address] PCP - General 07/01/16 Kev Dey MD [address] [place] [address] Referring Physician Nephrology 05/10/19 Amelia Rodrigez DPM [address] [facility] [place] [address] Consulting Physician Foot and Ankle Surg 06/28/19 Meghan Cordero MD [address] [facility] [address] [place] [address] Referring Physician Dermatology 06/02/21 Dennys Coates MD [address] [place] [address] [address] [place], [place] [id number] Consulting Physician Dermatology 06/02/21 Erwin Velasquez MD [address] [facility] [address] [place] [address] Consulting Physician Cardiology 06/02/21 documented as of this encounter
--- OUTSIDE RECORDS SUMMARY | 2024-04-15 05:58 | XMS_ITS | Encounter Summary ---
Author Organization [facility] Address [address] [place] [address] Phone Care Team Providers Care Tool Programmer Name Role Phone Erwin Gardner MD Primary Care Provide r Kev Dey MD Unavailable [phone] Amelia RodrigezM Unavailable [phone] Meghan Cordero MD Unavailable [phone] Dennys Coates MD Unavailable [phone] Erwin Velasquez MD Unavailable [phone] Encounter Details Date Type Department Care Team (Late st Contact Info) Description 07/14/2021 8:30 AM CDT Office Visit [facility] Ophthalmology [address] [facility] Outpatient Health 6th [place] [address] Renaldo Eisenberg MD [address] [facility] [address] [place] [address] Basal cell carcinoma of right [...] on file 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 Date of Visit: 07/14/2021 Patient Name: Erwin Isaac Age: 71 y.o. Gender: male : 1950 Primary Care Provider: Erwin Gardner MD Referring Provider: Meghan Cordero MD Problem List Items Addressed This Visit Basal cell carcinoma of right upper eyelid - Primary Last Surgical Procedure: Right Upper Eyelid Reconstruction - Right and Graft Skin Full Thickness Taken From Upper Left Eye -Left 07/06/2021 History: Returns following Mohs surgery and right upper yuyflq-vrqqv-gbtfdav reconstruction with graft and hatchet flap. He feels he is doing well. He discontinued ointment because of blurring. He has resumed his warfarin. Examination: Base Eye Exam Visual Acuity (Snellen - Linear) Right Left Dist cc 20/sutured shut 20/20 Correction: Glasses Neuro/Psych Oriented x3: Yes Mood/Affect: Normal Slit Lamp and Fundus Exam External Exam There is significant dryness and crusting of all incisions and the bolster, which has been removed.The left upper eyelid sutures have been removed. The incisions are healing well. There is an arc ofeschar of the superior portion of the right upper eyelid skin graft. Slit Lamp Exam Right Left Conjunctiva/Sclera White and quiet White and quiet Cornea Clear Clear Anterior Chamber Deep and quiet Deep and quiet Iris Round and reactive Round and reactive Lens Posterior chamber intraocular lens Posterior chamber intraocular lens Impression: Doing relatively well after extensive reconstructive surgery. I have stressed the importance of intensive ointment to all operative sites until crusting resolves. He will attempt to avoidmanipulating the graft. Call if there are concerns. Return in 3 weeks. I have personally examined the patient, participated in all aspects of their care, and formulated the treatment plan. documented in this encounter Plan of Treatment Not on file documented as of this encounter Visit Diagnoses Diagnosis Basal cell carcinoma of right upper eyelid- Primary documented in this encounter Eye Exam Visual Acuity (Snellen - Linear) Right eye Left eye Dist cc 20/sutured shut 20/20 Correction: Glasses Neuro/Psych Oriented x3: Yes Mood/Affect: Normal External Exam There is significant dryness and crusting of all incisions and the bolster, which has been removed. The left upper eyelid sutures have been removed. The incisions are healing well. There is an arc of eschar of the superior portion of the right upper eyelid skin graft. Slit Lamp Exam Right eye Left eye Conjunctiva/Sclera White and quiet White and dee dee et Cornea Clear Clear Anterior Chamber Deep and quiet Deep and quiet Iris Round and reactive Round and brian ctive Lens Posterior chamber in traocular lens Posterior chamber intraocular lens Care Teams Tool Programmer Relationship Specialty Start Date End Date Erwin Gardner MD [address] [place] [address] PCP - General 07/01/16 Kev Dey MD [address] [place] [address] Referring Physician Nephrology 05/10/19 Amelia Rodrigez DPM [address] [place] [address] Consulting Physician Foot and Ankle Surg 06/28/19 Meghan Cordero MD [address] [place] [address] Referring Physician Dermatology 06/02/21 Dennys Coates MD [address] [place] [address] [place] [address] Consulting Physician Dermatology 06/02/21 Erwin Velasquez MD [address] [address] Consulting Physician Cardiology 06/02/21 documented as of this encounter
--- OUTSIDE RECORDS SUMMARY | 2024-04-15 05:58 | XMS_ITS | Encounter Summary ---
Author Organization [facility] Address [address] [place] [address] Phone Care Team Providers Care School Examiner Name Role Phone Erwin Gardner MD Primary Care Provide r Kev Dey MD Unavailable [phone] Amelia RodrigezM Unavailable [phone] Meghan Cordero MD Unavailable [phone] Dennys Coates MD Unavailable [phone] Erwin Velasquez MD Unavailable [phone] Reason for Visit * Reason Onset Date Comments Scheduling Appointments 10/01/2021 Encounter Details Date Type Department Care Team (Late st Contact Info) Description 10/01/2021 Telephone [facility] Ophthalmology [address] [facility] Health 6th [place] [address] Renaldo Eisenberg MD [address] [address] Scheduling Appointments Social History Tobacco Use Types Packs/Day Years [...] on file 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 - 10/01/2021 9:24 AM CDT Left voicemail asking if the patient would be willing to move his appointment with Dr. Eisenberg from 10/06 to 10/15 at 9:45. Provided call back number [phone] documented in this encounter Plan of Treatment Not on file documented as of this encounter Visit Diagnoses Not on filedocumented in this encounter Care Teams School Examiner Relationship Specialty Start Date End Date Erwin Gardner MD [address] [place] [address] PCP - General 07/01/16 Kev Dey MD [address] [place] [address] Referring Physician Nephrology 05/10/19 Amelia Rodrigez DPM [address] [place] [address] Consulting Physician Foot and Ankle Surg 06/28/19 Meghan Cordero MD [address] [place] [address] Referring Physician Dermatology 06/02/21 Dennys Coates MD [address] [place] [address] [place] [address] Consulting Physician Dermatology 06/02/21 Erwin Velasquez MD [address] [facility] [address] [place], [place] [address] Consulting Physician Cardiology 06/02/21 documented as of this encounter
--- OUTSIDE RECORDS SUMMARY | 2024-04-15 05:58 | XMS_ITS | Encounter Summary ---
Author Organization [facility] Address [address] [place] [address] Care Team Providers Care Dry Cell Assembly Supervisor Name Role Phone Erwin Gardner MD Primary Care Provide r Kve Dey MD Unavailable [phone] Amelia RodrigezM Unavailable [phone] Meghan Cordero MD Unavailable [phone] Dennys Coates MD Unavailable [phone] Erwin Velasquez MD Unavailable [phone] Encounter Details Date Type Department Care Team (Late st Contact Info) Description 11/17/2022 Telephone [facility] Cardiology [address] [place] [address] Erwin Velasquez MD [address] [place] [address] Social History Tobacco Use Types [...] on file Legal 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 Pt aware. * Telephone Encounter - Myrna Rahman - 11/17/2022 10:57 AM CDT Pt requesting standing INR order be faxed to [facility] in [place]. Pt requesting call back once that is faxed. Thank you. Contact: documented in this encounter Plan of Treatment Scheduled Orders Name Type Priority Associated Diagnoses Orde r Schedule Protime-INR Lab Routine Atrial fibrillation, unspecified type (HCC) Current use of continuous churn buttermaker anticoagulation 52 Occurrences starting 11/17/2022 until 11/18/2023, 9 completed documented as of this encounter Procedures Procedure Name Priority Date/Time Associated Diagnosis Comments PROTIME-INR Routine 11/14/2023 9:42 AM CDT Atrial fibrillation, unspecified type (HCC) Current use of continuous churn buttermaker anticoagulation PROTIME-INR Routine 11/07/2023 7:42 AM CDT Atrial fibrillation, unspecified type (HCC) Current use of fci anticoagulation PROTIME-INR Routine 09/07/2023 9:11 AM CDT Atrial fibrillation, unspecified type (HCC) Current use of fci anticoagulation PROTIME-INR Routine 07/27/2023 10:33 AM CDT Atrial fibrillation, unspecified type (HCC) Current use of fci anticoagulation PROTIME-INR Routine 07/06/2023 6:17 AM CDT Atrial fibrillation, unspecified type (HCC) Current use of continuous churn buttermaker anticoagulation PROTIME-INR Routine 04/11/2023 7:12 AM BUDGET CLERK Atrial fibrillation, unspecified type (HCC) Current use of fci anticoagulation PROTIME-INR Routine 01/24/2023 8:25 AM CDT Atrial fibrillation, unspecified type (HCC) Current use of continuous churn buttermaker anticoagulation PROTIME-INR Routine 01/03/2023 10:21 AM CDT Atrial fibrillation, unspecified type (HCC) Current use of fci anticoagulation PROTIME-INR Routine 11/21/2022 8:54 AM CDT Atrial fibrillation, unspecified type (HCC) Current use of fci anticoagulation documented in this encounter Results * (ABNORMAL) Protime-INR (11/14/2023 9:42 AM CDT) INR 4.1(H) ClarassanceOsman Reyes Comment: Reference Range ? 0.9-1.1 Moderate-intensity Warfarin Therapy 2.0-3.0 Higher-intensity Warfarin Therapy ?? 3.0-4.0 PT 39.8(H) 9.0 - 11.5 sec Jack IncreaseCardOsman Reyes Comment: For additional information, please refer to http://education.hc1.com/faq/QYT979 (This link is being provided for informational/ educational purposes only.) Blood 11/14/2023 9:42 AM CDT 11/14/2023 9:44 AM CDT Narrative [facility] - 11/14/2023 6:10 PM CDT FASTING:NO FASTING: NO us Erwin Velasquez MD LAB BLOOD ORDERABLES Fin al Result [facility] [address] [place] [address] * (ABNORMAL) Protime-INR (11/07/2023 7:42 AM CDT) INR 3.7(H) Jack Reyes Comment: Reference Range ? 0.9-1.1 Moderate-intensity Warfarin Therapy 2.0-3.0 Higher-intensity Warfarin Therapy ?? 3.0-4.0 PT 36.1(H) 9.0 - 11.5 sec Jack Reyes Comment: For additional information, please refer to http://CannaBuild.hc1.com/faq/BOB159 (This link is being provided for informational/ educational purposes only.) Blood 11/07/2023 7:4 2 AM CDT 11/07/2023 7:43 AM CDT Narrative [facility] - 11/07/2023 3:18 PM CDT FASTING:YES FASTING: YES Erwin Velasquez MD LAB BLOOD ORDERABLES Fin al Result Performing Organization Address City/State/[facility] Co de Phone Number [facility] [address] [place] [address] * (ABNORMAL) Protime-INR (09/07/2023 9:11 AM CDT) INR 2.5(H) Jack Reyes Comment: Reference Range ? 0.9-1.1 Moderate-intensity Warfarin Therapy 2.0-3.0 Higher-intensity Warfarin Therapy ?? 3.0-4.0 PT 25.2(H) 9.0 - 11.5 sec Jack Reyes Comment: For additional information, please refer to http://CannaBuild.hc1.com/faq/KNT959 (This link is being provided for informational/ educational purposes only.) Blood 09/07/2023 9:11 AM CDT 09/07/2023 9:12 AM CDT Erwin Velasquez MD LAB BLOOD ORDERABLES Fin al Result Performing Organization Address [facility] de Phone Number [facility] [address] [place] [address] * (ABNORMAL) Protime-INR (07/27/2023 10:33 AM CDT) INR 2.4(H) Jack DiagnosticsOsman Reyes Comment: Reference Range ? 0.9-1.1 Moderate-intensity Warfarin Therapy 2.0-3.0 Higher-intensity Warfarin Therapy ?? 3.0-4.0 PT 24.1(H) 9.0 - 11.5 sec [facility] Reyes Comment: For additional information, please refer to http://CannaBuild.hc1.com/faq/QEY079 (This link is being provided for informational/ educational purposes only.) Blood 07/27/2023 10:3 3 AM CDT 07/27/2023 10:33 AM CDT Erwin Velasquez MD LAB BLOOD ORDERABLES Fin al Result Performing Organization Address [facility] de Phone Number [facility] [address] [place] [address] * (ABNORMAL) Protime-INR (07/06/2023 6:17 AM CDT) INR 2.2(H) [facility] Reyes Comment: Reference Range ? 0.9-1.1 Moderate-intensity Warfarin Therapy 2.0-3.0 Higher-intensity Warfarin Therapy ?? 3.0-4.0 PT 21.9(H) 9.0 - 11.5 sec [facility]i Reyes Comment: For additional information, please refer to http://Active International/faq/LAG147 (This link is being provided for informational/ educational purposes only.) Blood 07/06/2023 6:17 AM CDT 07/06/2023 6:17 AM CDT Erwin Velasquez MD LAB BLOOD ORDERABLES Fin al Result Performing Organization Address [facility] de Phone Number [facility] [address] [place] [address] * (ABNORMAL) Protime-INR (04/11/2023 7:12 AM BUDGET CLERK) INR 2.2(H) [facility] Eric Comment: Reference Range ? 0.9-1.1 Moderate-intensity Warfarin Therapy 2.0-3.0 Higher-intensity Warfarin Therapy ?? 3.0-4.0 PT 22.6(H) 9.0 - 11.5 sec [facility] Eric Comment: For additional information, please refer to http://[employer] International/faq/YNG412 (This link is being provided for informational/ educational purposes only.) Blood 04/11/2023 7:12 AM BUDGET CLERK 04/11/2023 7:13 AM BUDGET CLERK Erwin Velasquez MD LAB BLOOD ORDERABLES Fin al Result Performing Organization Address [facility] de Phone Number [facility] [address] [place] [address] * (ABNORMAL) Protime-INR (01/24/2023 8:25 AM CDT) INR 2.6(H) [facility] Eric Comment: Reference Range ? 0.9-1.1 Moderate-intensity Warfarin Therapy 2.0-3.0 Higher-intensity Warfarin Therapy ?? 3.0-4.0 PT 26.1(H) 9.0 - 11.5 sec [facility] Comment: For additional information, please refer to http://Active International/faq/QRW711 (This link is being provided for informational/ educational purposes only.) Blood 01/24/2023 8:25 AM CDT 01/24/2023 8:26 AM CDT Erwin Velasquez MD LAB BLOOD ORDERABLES Fin al Result Performing Organization Address [facility] de Phone Number [facility] [address] [place] [address] * (ABNORMAL) Protime-INR (01/03/2023 10:21 AM CDT) INR 2.1(H) [facility] Comment: Reference Range ? 0.9-1.1 Moderate-intensity Warfarin Therapy 2.0-3.0 Higher-intensity Warfarin Therapy ?? 3.0-4.0 PT 20.8(H) 9.0 - 11.5 sec [facility] Comment: For additional information, please refer to http://CannaBuild.hc1.com/faq/WDC895 (This link is being provided for informational/ educational purposes only.) Blood 01/03/2023 10:2 1 AM CDT 01/03/2023 10:23 AM CDT Erwin Velasquez MD LAB BLOOD ORDERABLES Fin al Result Performing Organization Address [facility] de Phone Number [facility] [address] [place] [address] * (ABNORMAL) Protime-INR (11/21/2022 8:54 AM CDT) INR 2.0(H) [facility] Comment: Reference Range ? 0.9-1.1 Moderate-intensity Warfarin Therapy 2.0-3.0 Higher-intensity Warfarin Therapy ?? 3.0-4.0 PT 20.3(H) 9.0 - 11.5 sec [facility] Comment: For additional information, please refer to http://Vital Renewable Energy Companyffk environment.[employer]/faq/RBJ829 (This link is being provided for informational/ educational purposes only.) Blood 11/21/2022 8:54 AM CDT 11/21/2022 8:54 AM CDT Erwin Velasquez MD LAB BLOOD ORDERABLES Fin al Result Performing Organization Address City/State/[facility] Co de Phone Number [facility] [address] [place] [address] documented in this encounter Visit Diagnoses Diagnosis Atrial fibrillation, unspecified type (HCC)- Primary Current use of fci anticoagulation documented in this encounter Care Teams Dry Cell Assembly Supervisor Relationship Specialty Start Date End Date Erwin Gardner MD [address] [place], [place] [id number] PCP - General 07/01/16 Kev Dey MD [address] [place] [address] Referring Physician Nephrology 05/10/19 Amelia Rodrigez DPM [address] [facility] [place] [address] Consulting Physician Foot and Ankle Surg 06/28/19 Meghan Cordero MD [address] [place] [address] Referring Physician Dermatology 06/02/21 Dennys Coates MD [address] [place] [address] [place] [address] Consulting Physician Dermatology 06/02/21 Erwin Velasquez MD [address] [facility] [address] [place] [address] Consulting Physician Cardiology 06/02/21 documented as of this encounter
--- OUTSIDE RECORDS SUMMARY | 2024-04-15 05:58 | XMS_ITS | Encounter Summary ---
Author Organization [facility] Address [address] [place] [address] Care Team Providers Care Customer Operations Intern Name Role Phone Erwin Gardner MD Primary Care Provide r Kev Dey MD Unavailable [phone] Amelia Rodrigez DPM Unavailable [phone] Meghan Cordero MD Unavailable [phone] Dennys Coates MD Unavailable [phone] Erwin Velasquez MD Unavailable [phone] Encounter Details Date Type Department Care Team (Latest Contact Info) Description 11/30/2021 Anticoagulation Visit [facility] Cardiology [address] [place] [address] Lillian Gallo RN Atrial fibrillation, [...] on file Legal Sex Male 11:57 AM INSPECTOR TUBES Gender Identity Not on file Sexual Orientation Not on file documented as of this encounter Plan of Treatment Not on file documented as of this encounter Visit Diagnoses Diagnosis Atrial fibrillation, unspecified type (HCC)- Primary documented in this encounter Care Teams Customer Operations Intern Relationship Specialty Start Date End Date Erwin Gardner MD [address] [place] [address] PCP - General 07/01/16 Kev Dey MD [address] [place] [address] Referring Physician Nephrology 05/10/19 Amelia Rodrigez DPM [address] [place] [address] Consulting Physician Foot and Ankle Surg 06/28/19 Meghan Cordero MD [address] [place] [address] Referring Physician Dermatology 06/02/21 Dennys Coates MD [address] [place] [address] [place] [address] Consulting Physician Dermatology 06/02/21 Erwin Velasquez MD [address] [place] [address] Consulting Physician Cardiology 06/02/21 documented as of this encounter
--- OUTSIDE RECORDS SUMMARY | 2024-04-15 05:58 | XMS_ITS | Encounter Summary ---
Author Organization [facility] Address [address] [place] [address] Care Team Providers Care Track Repair Supervisor Name Role Phone rEwin Gardner MD Primary Care Provide r Kev Dey MD Unavailable [phone] Amelia Rodrigez DPM Unavailable [phone] Meghan Cordero MD Unavailable [phone] Dennys Coates MD Unavailable [phone] Erwin Velasquez MD Unavailable [phone] Reason for Visit * Reason Comments Cardiomyopathy * Consultation (Routine) - Closed Specialty Diagnoses / Procedures Referred By Contac t Referred To Contact Cardiology Diagnoses Atrial fibrillation, unspecified type (HCC) Erwin Gardner MD [address] [place] [address] Phone: tel: fax: [facility] Cardiology [address] [place] [address] Phone: tel: fax: Referral ID Status Reason Start Date Expiration Date V isits Requested Visits Authorized [id number] Closed Specialty Services Required 05/10/2022 05/11/2023 12 12 Encounter Details Date Type Department Care Team (Late st Contact Info) Description 05/19/2022 8:45 AM TRACK REPAIR SUPERVISOR Office Visit [facility] Cardiology [address] [place] [address] Erwin Velasquez MD [address] [place] [address] Cardiomyopathy, idiopathic (HCC) (Primary Dx); Atrial fibrillation, [...] on file Legal Sex Male 11:57 AM TRACK REPAIR SUPERVISOR Gender Identity Not on file Sexual Orientation Not on file documented as of this encounter Last Filed Vital Signs Vital Sign Reading Time Taken Comments Blood Pressure 122/66 05/19/2022 8:41 AM TRACK REPAIR SUPERVISOR Pulse 108 05/19/2022 8:41 AM TRACK REPAIR SUPERVISOR Temperature - - Respiratory Rate - - Oxygen Saturation 93% 05/19/2022 8:41 AM TRACK REPAIR SUPERVISOR Inhaled Oxygen Concentration - - Weight 141.5 kg (312 lb) 05/19/2022 8:41 AM TRACK REPAIR SUPERVISOR Height 190.5 cm (6' 3 ) 05/19/2022 8:41 AM TRACK REPAIR SUPERVISOR Body Mass Index 39 05/19/2022 8:41 AM TRACK REPAIR SUPERVISOR documented in this encounter Progress Notes * Erwin Velasquez MD - 05/19/2022 8:45 AM CST [facility] FOLLOW UP 05/19/2022 Erwin Isaac is a 72 y.o. male who [...] has been anticoagulated and rate controlled. He presents to the office today for scheduled appointment. He seems to be doing well cardiac-farrar and is not expressing any symptoms of his atrial fib or of his LV dysfunction. He tells me that he isalso now following with a machine mover as there has been some decline in his renal function. REVIEW OF SYSTEMS General ROS: negative for [...] Medications: acetaminophen (TYLENOL) 500 mg tablet, Take 1,000 mg by mouth nightly, Disp: , Rfl: atorvastatin (LIPITOR) 20 mg tablet, TAKE 1 TABLET BY MOUTH DAILY, Disp: 90 tablet, Rfl: 3 carvediloL (COREG) 25 mg tablet, Take 0.5 tablets (12.5 mg total) by mouth 2 (two) times a day withmeals, Disp: 90 tablet, Rfl: 1 clindamycin (CLEOCIN) 300 mg capsule, Take 300 mg by mouth every 6 (six) hours (Patient not taking:No sig reported), Disp: , Rfl: erythromycin (ILOTYCIN) ophthalmic ointment, Apply to eyelid incisions [address] Only [address] ointment in the eyes if they are irritated. (Patient not taking: No sig reported), Disp: 3.5 g, Rfl: 3 fenofibrate (TRIGLIDE) 160 mg tablet, TAKE 1 TABLET BY MOUTH EVERY DAY (Patient taking differently:Take 160 mg by mouth electronic video games servicer before breakfast), Disp: 90 tablet, Rfl: 3 fish oil-dha-epa 1,200-144-216 mg capsule, Take 1 capsule by mouth 2 (two) times a day, Disp: , Rfl: furosemide (LASIX) 80 mg tablet, TAKE 1.5 TABLETS (120 MG TOTAL) BY MOUTH DAILY, Disp: 135 tablet, Rfl: 1 insulin NPH (HumuLIN N, NovoLIN N) 100 [...] MOUTH EVERY DAY (Patient taking differently: Take 1mEq by mouth electronic video games servicer before breakfast), Disp: 90 tablet, Rfl: 3 losartan (COZAAR) [...] Rfl: warfarin (COUMADIN) 2.5 mg tablet, Take 2.5 mg by mouth once a week Monday, Disp: , Rfl: warfarin (COUMADIN) 5 mg tablet, TAKE 1 TABLET BY MOUTH EVERY DAY, Disp: 90 tablet, Rfl: 0 LABS AND OTHER DIAGNOSTIC TESTS No results found for: CHOL No results found for: HDL No results found for: LDLCALC No results found for: TRIG No results found for: CHOLHDL Lab Results Component Value Date WBC 7.2 02/03/2021 HGB 11.1 (L) 02/03/2021 HCT 33.5 (L) 02/03/2021 MCV 91.3 02/03/2021 No lab exists for component: LABALBU PHYSICAL EXAM There were no vitals taken for this visit. Physical Examination: General appearance -significantly obese white [...] follow the patient at 6 month intervals. Told him that some of his cardiac medications could be concerning regarding hyperkalemia if his kidney function is declining. If he is following a Nephrology obviously that is being followed in their office he is seeing them at 3 month intervals according to the patient Erwin Velasquez MD K REPAIR SUPERVISOR documented in this encounter Plan of Treatment Not on file documented as of this encounter Visit Diagnoses Diagnosis Cardiomyopathy, idiopathic (HCC)- Primary Other primary cardiomyopathies Atrial fibrillation, unspecified type (HCC) documented in this encounter Discontinued Medications Medication Sig Discontinue Reason Start Date End Da te clindamycin (CLEOCIN) 300 mg capsule Take 300 mg by mouth every 6 (six) hours Therapy completed 09/22/2021 05/19/2022 documented as of this encounter Orders Outpatient Referral Count Last Ordered Date Fir st Ordered Date AMB REFERRAL TO CARDIOLOGY 1 05/19/2022 documented in this encounter Care Teams Track Repair Supervisor Relationship Specialty Start Date End Date Erwin Gardner MD [address] [place] [address] PCP - General 07/01/16 Kev Dey MD [address] [place], [place] [address] Referring Physician Nephrology 05/10/19 Amelia Rodrigez DPM [address] [facility] [place] [address] Consulting Physician Foot and Ankle Surg 06/28/19 Meghan Cordero MD [address] [place], [place] [address] Referring Physician Dermatology 06/02/21 Dennys Coates MD [address] [facility] [place] [address] Consulting Physician Dermatology 06/02/21 Erwin Velasquez MD [address] [place] [address] Consulting Physician Cardiology 06/02/21 documented as of this encounter
--- OUTSIDE RECORDS SUMMARY | 2024-04-15 05:58 | XMS_ITS | Encounter Summary ---
Author Organization [facility] Address [address] [place] [address] Care Team Providers Care Doubler Operator Name Role Phone Erwin Gardner MD Primary Care Provide r Kev Dey MD Unavailable [phone] Amelia Rodrigez DPM Unavailable [phone] Meghan Cordero MD Unavailable [phone] Dennys Coatse MD Unavailable [phone] Erwin Velasquez MD Unavailable [phone] Encounter Details Date Type Department Care Team (Latest Contact Info) Description 11/22/2022 Anticoagulation Visit [facility] Cardiology [address] [place] [address] Vicky Ugalde RN Atrial fibrillation ([facility]/HCC) [I48.91] (Primary Dx) Social History Tobacco Use [...] on file Legal 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 Male 11:57 AM DROP BOARD 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 Gender Identity Not on file Sexual Orientation Not on file documented as of this encounter Plan of Treatment Not on file documented as of this encounter Visit Diagnoses Diagnosis Atrial fibrillation (CMS/HCC) [I48.91]- Primary documented in this encounter Care Teams Doubler Operator Relationship Specialty Start Date End Date Erwin Gardner MD [address] [place] [address] PCP - General 07/01/16 Kev Dey MD [address] [place] [address] Referring Physician Nephrology 05/10/19 Amelia Rodrigez DPM [address] [facility] [place] [address] Consulting Physician Foot and Ankle Surg 06/28/19 Meghan Cordero MD [address] [place] [address] Referring Physician Dermatology 06/02/21 Dennys Coates MD [address] [place] [address] [address] [place], [place] [address] Consulting Physician Dermatology 06/02/21 Erwin Velasquez MD [address] [facility] [address] [place], [place] [address] Consulting Physician Cardiology 06/02/21 documented as of this encounter
--- OUTSIDE RECORDS SUMMARY | 2024-04-15 05:58 | XMS_ITS | Encounter Summary ---
Author Organization [facility] Address [address] [facility] [address] [facility] [address] [place] [address] Care Team Providers Care Shop Welder Name Role Phone Erwin Gardner MD Primary Care Provide r Kev Dey MD Unavailable [phone] Amelia Rodrigez DPM Unavailable [phone] Meghan Cordero MD Unavailable [phone] Dennys Coates MD Unavailable [phone] Erwin Velasquez MD Unavailable [phone] Encounter Details Date Type Department Care Team (Latest Contact Info) Description 06/08/2022 Anticoagulation Visit [facility] Cardiology [address] [place] [address] Leigh Garcia RN Atrial fibrillation, [...] on file Legal Sex Male 11:57 AM PENETRATION TESTER Gender Identity Not on file Sexual Orientation Not on file documented as of this encounter Plan of Treatment Not on file documented as of this encounter Visit Diagnoses Diagnosis Atrial fibrillation, unspecified type (HCC)- Primary documented in this encounter Care Teams Shop Welder Relationship Specialty Start Date End Date Erwin Gardner MD [address] [place] [address] PCP - General 07/01/16 Kev Dey MD [address] [place] [address] Referring Physician Nephrology 05/10/19 Amelia Rodrigez DPM [address] [facility] [place] [address] Consulting Physician Foot and Ankle Surg 06/28/19 Meghan Cordero MD [address] [place] [address] Referring Physician Dermatology 06/02/21 Dennys Coates MD [address] [place] [address] [place] [address] Consulting Physician Dermatology 06/02/21 Erwin Velasquez MD [address] [facility] [address] [place] [address] Consulting Physician Cardiology 06/02/21 documented as of this encounter
--- OUTSIDE RECORDS SUMMARY | 2024-04-15 05:58 | XMS_ITS | Encounter Summary ---
Author Organization [facility] Address [address] [place] [address] Care Team Providers Care Bolt Man Name Role Phone Erwin Gardner MD Primary Care Provide r Kev Dey MD Unavailable [phone] Amelia Rodrigez DPM Unavailable [phone] Mgehan Cordero MD Unavailable [phone] Dennys Coates MD Unavailable [phone] Erwin Velasquez MD Unavailable [phone] Encounter Details Date Type Department Care Team (Latest Contact Info) Description 01/27/2022 Anticoagulation Visit [facility] Cardiology [address] [place] [address] Lillian Gallo RN Atrial fibrillation, [...] on file Legal 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 [place] [address] Consulting Physician Foot and Ankle Surg 06/28/19 Meghan Cordero MD [address] [place] [address] Referring Physician Dermatology 06/02/21 Dennys Coates MD [address] [place] [address] [place] [address] Consulting Physician Dermatology 06/02/21 Erwin Velasquez MD [address] [place] [address] Consulting Physician Cardiology 06/02/21 documented as of this encounter
--- OUTSIDE RECORDS SUMMARY | 2024-04-15 05:58 | XMS_ITS | Encounter Summary ---
Author Organization [facility] Healthcare Address [address] [place] [address] Care Team Providers Care Coke Burner Name Role Phone Erwin Gardner MD Primary Care Provide r Kev Dey MD Unavailable [phone] Amelia RodrigezM Unavailable [phone] Meghan Cordero MD Unavailable [phone] Dennys Coates MD Unavailable [phone] Erwin Velasquez MD Unavailable [phone] Encounter Details Date Type Department Care Team (Latest Contact Info) Description 04/11/2023 Anticoagulation Visit [facility] Cardiology [address] [place] [address] Leigh Garcia RN Atrial fibrillation [...] on file Legal 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 Gender Identity Not on file Sexual Orientation Not on file documented as of this encounter Plan of Treatment Not on file documented as of this encounter Visit Diagnoses Diagnosis Atrial fibrillation (CMS/HCC) [I48.91]- Primary documented in this encounter Care Teams Coke Burner Relationship Specialty Start Date End Date Erwin Gardner MD [address] [place] [address] PCP - General 07/01/16 Kev Dey MD [address] [place] [address] Referring Physician Nephrology 05/10/19 Amelia Rodrigez DPM [address] [facility] [place] [address] Consulting Physician Foot and Ankle Surg 06/28/19 Meghan Cordero MD [address] [place] [address] Referring Physician Dermatology 06/02/21 Dennys Coates MD [address] [place] [address] [address] [place], [place] [id number] Consulting Physician Dermatology 06/02/21 Erwin Velasquez MD [address] [facility] [address] [place], [place] [address] Consulting Physician Cardiology 06/02/21 documented as of this encounter
--- OUTSIDE RECORDS SUMMARY | 2024-04-15 05:58 | XMS_ITS | Encounter Summary ---
Author Organization [facility] Address [address] [place] [address] Phone Care Team Providers Care Small Lot Operator Name Role Phone Erwin Gardner MD Primary Care Provide r Kev Dey MD Unavailable [phone] Amelia RodrigezM Unavailable [phone] Meghan Cordero MD Unavailable [phone] Dennys Coates MD Unavailable [phone] Erwin Velasquez MD Unavailable [phone] Reason for Visit * Reason Onset Date Comments Scheduling Appointments 09/23/2021 Encounter Details Date Type Department Care Team (Late st Contact Info) Description 09/23/2021 Telephone [facility] Ophthalmology [address] [place] [address] Renaldo Eisenberg MD [address] [address] Scheduling Appointments Social History Tobacco [...] on file 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 Pt is scheduled for 10/06 * Telephone Encounter - Ana Maria Lopez - 09/23/2021 10:13 AM CDT Pt called to cancel post appt. Will callback to reschedule. [phone] documented in this encounter Plan of Treatment Not on file documented as of this encounter Visit Diagnoses Not on filedocumented in this encounter Care Teams Small Lot Operator Relationship Specialty Start Date End Date Erwin Gardner MD [address] [place] [address] PCP - General 07/01/16 Kev Dey MD [address] [place] [address] Referring Physician Nephrology 05/10/19 Amelia Rodrigez DPM [address] [place], [place] [address] Consulting Physician Foot and Ankle Surg 06/28/19 Meghan Cordero MD [address] [facility] [address] [place] [address] Referring Physician Dermatology 06/02/21 Dennys Coates MD [address] [place] [address] [place] [address] Consulting Physician Dermatology 06/02/21 Erwin Velasquez MD [address] [facility] [address] [facility] [address] [place] [address] Consulting Physician Cardiology 06/02/21 documented as of this encounter
--- OUTSIDE RECORDS SUMMARY | 2024-04-15 05:58 | XMS_ITS | Encounter Summary ---
Author Organization [facility] Address [address] [place] [address] Care Team Providers Care Flexo Folder Gluer Operator Name Role Phone Erwin Gardner MD Primary Care Provide r Kev Dey MD Unavailable [phone] Amelia RodrigezM Unavailable [phone] Meghan Cordero MD Unavailable [phone] Dennys Coates MD Unavailable [phone] Erwin Velasquez MD Unavailable [phone] Reason for Visit * Reason Comments Cardiomyopathy 6 month fu Encounter Details Date Type Department Care Team (Late st Contact Info) Description 11/11/2021 8:30 AM CDT Office Visit [facility] Cardiology [address] [facility] [address] [place] [address] Erwin Velasquez MD [address] [place] [address] Lipid screening (Primary Dx); Atrial fibrillation, unspecified [...] on file 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 Gender Identity Not on file Sexual Orientation Not on file documented as of this encounter Last Filed Vital Signs Vital Sign Reading Time Taken Comments Blood Pressure 108/62 11/11/2021 8:31 AM CDT Pulse 78 11/11/2021 8:31 AM CDT Temperature - - Respiratory Rate - - Oxygen Saturation 96% 11/11/2021 8:31 AM CDT Inhaled Oxygen Concentration - - Weight 145.6 kg (321 lb) 11/11/2021 8:31 AM CDT Height 190.5 cm (6' 3 ) 11/11/2021 8:31 AM CDT Body Mass Index 40.12 11/11/2021 8:31 AM CDT documented in this encounter Ordered Prescriptions Prescription Sig Dispense Quantity Refills Last Filled Start Date End Date sacubitriL-valsart an (ENTRESTO) 24-26 mg tabletIndications: chronic heart failure Take 1 tablet by mouth 2 (two) times a day 180 tablet 3 11/11/2021 12/15/2021 documented in this encounter Progress Notes * Erwin Velasquez MD - 11/11/2021 8:30 AM CDT [facility] FOLLOW UP 11/11/2021 Erwin Fuentes Poncho is a 71 y.o. male who presents for follow up of chronic atrial fibrillation and a history of nonischemic cardiomyopathy. The patient initially presented in June of 2002 and with medical treatment did very well. Catheterization at that time demonstrated normal coronary arteries. He developed atrial fibrillation in the summer of 2015. Attempt at cardioversion failed and since then he has been anticoagulated and rate controlled. He presents today for scheduled 6 month appointment. He says that he has symptoms of chronic fatigue and exertional dyspnea which have not worsened recently. He does not have any orthopnea PND or edema. REVIEW OF SYSTEMS General ROS: negative for [...] and rash HOME MEDICATIONS Current Outpatient Medications: ??? acetaminophen (TYLENOL) 500 [...] taking differently: Take 160 mg by mouth flight data technician before breakfast), Disp: 90 tablet, Rfl: 3 ??? fish oil-dha-epa 1,200-144-216 mg capsule, Take 1 capsule by mouth 2 (two) times a day, Disp: ,Rfl: ??? furosemide (LASIX) 80 mg tablet, TAKE 1.5 TABLETS (120 MG TOTAL) BY MOUTH DAILY, Disp: 135 tablet, Rfl: 1 ??? insulin [...] taking differently: Take 1 mEq by mouth flight data technician before breakfast), Disp: 90 tablet, Rfl: 3 ??? losartan (COZAAR) 50 mg tablet, TAKE 1 TABLET BY MOUTH EVERY DAY (Patient taking differently: Take 50 mg by mouth flight data technician before breakfast), Disp: 90 tablet, Rfl: 3 ??? mupirocin (BACTROBAN) 2 % ointment, APPLY A SMALL AMOUNT TO THE AFFECTED AREA(S) ON LEG 3 TIMESDAILY, Disp: , Rfl: ??? spironolactone (ALDACTONE) 50 mg tablet, TAKE 1 TABLET BY MOUTH EVERY DAY, Disp: 90 tablet, Rfl: 0 ??? triamcinolone (KENALOG) 0.1 % cream, Apply topically as needed, Disp: , Rfl: ??? ULTICARE 1 mL 30 gauge x 1/2 syringe, , Disp: , Rfl: ??? warfarin (COUMADIN) 2.5 mg tablet, Take 2.5 mg by mouth once a week Monday, Disp: , Rfl: ??? warfarin (COUMADIN) 5 mg tablet, TAKE 1 TABLET BY MOUTH EVERY DAY, Disp: 90 tablet, Rfl: 0 ??? clindamycin (CLEOCIN) 300 mg capsule, Take 300 mg by mouth every 6 (six) hours (Patient not taking: No sig reported), Disp: , Rfl: ??? erythromycin (ILOTYCIN) ophthalmic ointment, Apply to eyelid incisions [address] ointment in the eyes if they are irritated. (Patient not taking: No sig reported), Disp: 3.5 g, Rfl: 3 LABS AND [...] for component: LABALBU PHYSICAL EXAM Vitals BP 108/62 (BP Location: Left arm, Patient Position: Sitting) Pulse 78 Ht 190.5 cm (6' 3 ) Wt (!) 145.6 kg (321 lb) SpO2 96% BMI 40.12 kg/m?? Physical Examination: General appearance -significantly obese [...] unspecified type (HCC) Cardiomyopathy, idiopathic (HCC) PLAN/RECOMMENDATIONS I will try transitioning him from losartan to Entresto Six-month follow-up Erwin Velasquez MD documented in this encounter Plan of Treatment Not on file documented as of this encounter Procedures Procedure Name Priority Date/Time Associated Diagnosis Comments POCT LIPID PANEL Routine 11/11/2021 8:42 AM CDT Lipid screening documented in this encounter Results * POCT lipid panel (11/11/2021 8:42 AM CDT) Cholesterol, POC 162 mg/dL HDL, POC 51 mg/dL Triglycerides, POC 150 mg/dL LDL Cholesterol POC 81 mg/dL Chol/HDL Ratio, POC 3.2 Non-HDL Cholesterol, POC 111 mg/dL Cholesterol Total, POC 162 mg/dL Capillary blood 11/11/2021 8 :42 AM CDT us Erwin Velasquez MD POINT OF CARE TEST ORDER EVY Final Result documented in this encounter Visit Diagnoses Diagnosis Lipid screening- Primary Screening for lipoid disorders Atrial fibrillation, unspecified type (HCC) Cardiomyopathy, idiopathic (HCC) Other primary cardiomyopathies documented in this encounter Discontinued Medications Medication Sig Discontinue Reason Start Date End Da te losartan (COZAAR) 50 mg tablet TAKE 1 TABLET BY MOUTH EVERY DAY 05/17/2021 11/11/2021 documented as of this encounter Care Teams Flexo Folder Gluer Operator Relationship Specialty Start Date End Date Erwin Gardner MD [address] [place] [address] PCP - General 07/01/16 Kev Dey MD [address] [place] [address] Referring Physician Nephrology 05/10/19 Amelia Rodrigez DPM [address] [place] [address] Consulting Physician Foot and Ankle Surg 06/28/19 Meghan Cordero MD [address] [place] [address] Referring Physician Dermatology 06/02/21 Dennys Coates MD [address] [place] [address] [place] [address] Consulting Physician Dermatology 06/02/21 Erwin Velasquez MD [address] [facility] [address] [place] [address] Consulting Physician Cardiology 06/02/21 documented as of this encounter
--- OUTSIDE RECORDS SUMMARY | 2024-04-15 05:59 | XMS_ITS | Encounter Summary ---
Author Organization [facility] Healthcare Address [address] [place] [address] Care Team Providers Care Elevator Repairer Helper Name Role Phone Erwin Gardner MD Primary Care Provide r Kev Dey MD Unavailable [phone] Amelia Rodrigez DPM Unavailable [phone] Meghan Cordero MD Unavailable [phone] Dennys Coates MD Unavailable [phone] Erwin Velasquez MD Unavailable [phone] Encounter Details Date Type Department Care Team (Latest Contact Info) Description 07/06/2021 11:22 AM CDT - 07/06/2021 7:09 PM CDT Hospital Encounter [facility] Operating [facility] [place] [address] Renaldo Eisenberg MD [address] [address] Basal cell carcinoma (BCC) of canthus of right eye; Basal cell carcinoma of right upper eyelid Discharge Disposition: Discharge to home or self care Social History Tobacco Use Types Packs/Day Years [...] on file 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 Gender Identity Not on file Sexual Orientation Not on file documented as of this encounter Last Filed Vital Signs Vital Sign Reading Time Taken Comments Blood Pressure 133/56 07/06/2021 6:50 PM CDT Pulse 69 07/06/2021 6:50 PM CDT Temperature 36.2 ??C (97.2 ??F) 07/06/2021 6:25 PM CD T Respiratory Rate 14 07/06/2021 6:50 PM CDT Oxygen Saturation 97% 07/06/2021 6:50 PM CDT Inhaled Oxygen Concentration - - Weight 142.9 kg (315 lb) 06/24/2021 2:35 PM CDT Height 188 cm (6' 2 ) 06/24/2021 2:35 PM CDT Body Mass Index 40.44 06/24/2021 2:35 PM CDT documented in this encounter Discharge Diagnoses Diagnosis Basal cell carcinoma of skin of right upper eyelid, including canthus - BASAL CELL CARCINOMA OF SKIN OF RIGHT UPPER EYELID, INCLUDING CANTHUS Unspecified atrial fibrillation (HCC) - UNSPECIFIED ATRIAL FIBRILLATION FPC (current) use of anticoagulants - BOLOGNA MAKER (CURRENT) USE OF ANTICOAGULANTS Long-term (current) use of anticoagulants Cardiomyopathy, unspecified (HCC) - CARDIOMYOPATHY, UNSPECIFIED Hypertensive heart and chronic kidney disease with heart failure and stage 1 through stage 4 chronic kidney disease, or unspecified chronic kidney disease (HCC) - HYPERTENSIVE HEART AND CHRONIC KIDNEY DISEASE WITH HEART FAILURE AND STAGE 1 THROUGH STAGE 4 CHRONIC Heart failure, unspecified (CMS/HCC) (HCC) - HEART FAILURE, UNSPECIFIED Heart failure, unspecified Chronic kidney disease, unspecified - CHRONIC KIDNEY DISEASE, UNSPECIFIED Type 2 diabetes mellitus with diabetic chronic kidney disease (HCC) - TYPE 2 DIABETES MELLITUS WITH DIABETIC CHRONIC KIDNEY DISEASE Type 2 diabetes mellitus with diabetic neuropathy, unspecified (HCC) - TYPE 2 DIABETES MELLITUS WITH DIABETIC NEUROPATHY, UNSPECIFIED Obesity, unspecified - OBESITY, UNSPECIFIED Hyperlipidemia, unspecified - HYPERLIPIDEMIA, UNSPECIFIED FPC (current) use of insulin (HCC) - BOLOGNA MAKER (CURRENT) USE OF INSULIN Other [facility] (current) drug therapy - OTHER PENITENTIARY (CURRENT) DRUG THERAPY Cataract extraction status, right eye - CATARACT EXTRACTION STATUS, RIGHT EYE Cataract extraction status, left eye - CATARACT EXTRACTION STATUS, LEFT EYE documented in this encounter Discharge Instructions * [...] Please call the office or after-hours exchange ([phone]) if you experience: - Severe pain (mild [...] cannot be sent through Care Everywhere. * [facility] PATHWAY TO EXCELLENT CARE AFTER [...] 05/29/2021 ULTICARE 1 mL 30 gauge x 04/04 syringe 05/24/2017 warfarin (COUMADIN) 2.5 mg tabletIndications: [...] A biopsy has been performed by his textile designs sales representative (basal cell) several weeks ago. No history [...] (two) times a day with meals, Disp: ,Rfl: ??? fenofibrate (TRIGLIDE) 160 mg tablet, TAKE 1 TABLET BY MOUTH EVERY DAY (Patient taking differently: Take 160 mg by mouth stretcher leveler operator helper before breakfast), Disp: 90 tablet, Rfl: 3 ??? fish oil-dha-epa 1,200-144-216 mg capsule, Take 1 capsule by mouth 2 (two) times a day, Disp: ,Rfl: ??? furosemide (LASIX) 80 mg tablet, TAKE 1.5 TABLETS (120 MG TOTAL) BY MOUTH DAILY (Patient takingdifferently: Take 120 mg by mouth stretcher leveler operator helper before breakfast), Disp: 135 tablet, Rfl: 1 [...] taking differently: Take 1 mEq by mouth stretcher leveler operator helper before breakfast), Disp: 90 tablet, Rfl: 3 ??? losartan (COZAAR) 50 mg tablet, TAKE 1 TABLET BY MOUTH EVERY DAY (Patient taking differently: Take 50 mg by mouth stretcher leveler operator helper before breakfast), Disp: 90 tablet, Rfl: 3 ??? spironolactone (ALDACTONE) 50 mg tablet, TAKE 1 TABLET BY MOUTH EVERY DAY (Patient taking differently: Take 50 mg by mouth stretcher leveler operator helper before breakfast), Disp: 90 tablet, Rfl: 0 [...] A biopsy has been performed by his textile designs sales representative (basal cell) several weeks ago. No history [...] taking differently: Take 160 mg by mouth stretcher leveler operator helper before breakfast), Disp: 90 tablet, Rfl: 3 ??? fish oil-dha-epa 1,200-144-216 mg capsule, Take 1 capsule by mouth 2 (two) times a day, Disp: ,Rfl: ??? furosemide (LASIX) 80 mg tablet, TAKE 1.5 TABLETS (120 MG TOTAL) BY MOUTH DAILY (Patient takingdifferently: Take 120 mg by mouth stretcher leveler operator helper before breakfast), Disp: 135 tablet, Rfl: 1 [...] taking differently: Take 1 mEq by mouth stretcher leveler operator helper before breakfast), Disp: 90 tablet, Rfl: 3 ??? losartan (COZAAR) 50 mg tablet, TAKE 1 TABLET BY MOUTH EVERY DAY (Patient taking differently: Take 50 mg by mouth stretcher leveler operator helper before breakfast), Disp: 90 tablet, Rfl: 3 ??? spironolactone (ALDACTONE) 50 mg tablet, TAKE 1 TABLET BY MOUTH EVERY DAY (Patient taking differently: Take 50 mg by mouth stretcher leveler operator helper before breakfast), Disp: 90 tablet, Rfl: 0 [...] Attending Surgeon: Renaldo Eisenberg MD Surgeon(s): Renaldo Eisenberg MD Kiser, Kelly Ann, MD Ho, Tiffany Christina, MD Surgical Team: Certified Surgical Technician: Nuvia Crisostomo RN; Jeannine Menendez, CHAUNCEY; Shea Menjivar RN Scrub: Imelda Bah RN [...] Planning Perioperative Nursing Note Telephone Preoperative Evaluation ([facility]) - TELEPHONE ONLY, NO PHYSICAL [...] taking differently: Take 160 mg by mouth stretcher leveler operator helper before breakfast) 90 tablet 3 ??? fish oil-dha-epa 1,200-144-216 mg capsule Take 1 capsule by mouth 2 (two) times a day ??? furosemide (LASIX) 80 mg tablet TAKE 1.5 TABLETS (120 MG TOTAL) BY MOUTH DAILY (Patient taking differently: Take 120 mg by mouth stretcher leveler operator helper before breakfast) 135 tablet 1 ??? insulin [...] taking differently: Take 1 mEq by mouth stretcher leveler operator helper before breakfast) 90 tablet 3 ??? losartan (COZAAR) 50 mg tablet TAKE 1 TABLET BY MOUTH EVERY DAY (Patient taking differently: Take 50 mg by mouth stretcher leveler operator helper before breakfast) 90 tablet 3 ??? spironolactone (ALDACTONE) 50 mg tablet TAKE 1 TABLET BY MOUTH EVERY DAY (Patient taking differently: Take 50 mg by mouth stretcher leveler operator helper before breakfast) 90 tablet 0 ??? triamcinolone [...] in a congregate living facility (ex. assisted living/halfway facility, group home, group home)?: No Have you tested positive for COVID-19 [...] 20 seconds. Use an alcohol- based hand manager business process that contains at least 60% alcohol if [...] your insurance card, a photo ID (example: Parts Facilitator's License) and a method of payment for [...] Pathway to Excellent Care by the followinglink: [email or web address] How To Prepare [...] eligible.. If you are going to a [facility] Testing Site for COVID testing, please arrive at least 30 minutes PRIOR to lab closing time. If you have COVID testing or should have COVID testing for your surgery/procedure, please read below section: If you need to reschedule your COVID test to a different location or if your surgery gets rescheduled, you MUST call [phone] Monday-Monday 8am-4:30pm to get your COVID testing rescheduled or your lab order will not be available at Testing Sites. COVID Testing is only valid for up to 96 hours prior to surgery date, unless otherwise specified. If you are unable to reach staff at the above phone number, please call the CPAP Staff at [phone]. This number cannot order a lab test, [...] least 20 seconds. Use an alcohol-based hand manager business process that contains at least 60% alcohol if [...] for the most updated information. Information on [facility]: Please view [email or web address] (Patient & Visitor Information) for additional details regarding Advanced Directive forms, AWARE, directions, parking information, lodging, Internet access, dining and more. For [employer] information, to activate account or password recovery, please go to [email or web address] or call [phone] (toll-free: [phone]). Information for Suicide Prevention: National Suicide Prevention Lifeline (6-935- 232-HWJX (4832)). Surgery Times: For patients having surgery @ [facility], [facility] or [facility], if your surgeon's office has not notified you of your surgery time by NOON THE BUSINESS DAY BEFORE your surgery, please call [phone] and ask for your surgeon'soffice Dr. Darlin [...] Glucose, POC 177 70 - 199 mg/dL [facility] Blood 07/06/2021 6:28 PM CDT 07/06/2021 6:28 PM CDT Renaldo Eisenberg MD LAB POCT ORDERABLES - DEVICE Final Result Performing Organization Address [facility]/ZIP Co de Phone Number [facility] [place] [address] * POCT glucose (07/06/2021 2:08 PM CDT) Glucose, POC 147 70 - 199 mg/dL [facility] Blood 07/06/2021 2:08 PM CDT 07/06/2021 2:08 PM CDT Renaldo Eisenberg MD LAB POCT ORDERABLES - DEVICE Final Result Performing Organization Address [facility]/ZIP Co de Phone Number [facility] Department [place] [address] * Protime-INR (07/06/2021 1:44 PM CDT) PT 13.2 9.5 - 13.6 sec [facility] INR 1.2 0.9 - 1.2 [facility] Comment: Interpretive data Oral anticoagulant therapeutic ranges: Venous thromboembolism prophylaxis or treatment: 2.0-3.0 CARDIOLOGY Standard range: 2.0-3.0 High-intensity range: 2.5-3.5 Refer to indication-specific guidelines for appropriate target ranges for prosthetic heart valve replacement. Current interpretive data was last revised on 2019. Blood 07/06/2021 1:44 PM CDT 07/06/2021 2:25 PM CDT Luana Aviles STRATEGIC DEBRIEFING OFFICER LAB BLOOD ORDERABLES Final Resu lt [facility] [place] [address] documented in this encounter Visit Diagnoses Diagnosis [...] 2:16 PM CDT 30 mL/hr 30 mL/hr documented in this encounter Historical Medications * [...] Lactated Ringer's (LR) infusion 1 2 lidocaine 1%, bupivicaine 0. 375%, EPINEPHrine 0.3 mg (1:75,000) (Dr. Eisenberg's) preservative free ophthalmic solution (total volume 22.5 mL) 1 07/06/2021 lidocaine PF (XYLOCAINE) 10 mg/mL (1 %) preservative free injection 2-10 mg 1 07/06/2021 meperidine (DEMEROL) preserv ative free injection 12.5 mg 1 07/06/2021 naloxone (NARCAN) 0.4 mg/mL injection 0.04-0.4 mg 1 07/06/2021 ondansetron (ZOFRAN) injection 4 mg 1 07/06 prochlorperazine (COMPAZINE) injection 10 mg 1 07/06/2021 sodium chloride 0.9% flush 0.5-20 mL 1 08/2021 sodium chloride 0.9% irrigation 1 2 tetracaine (PF) (ALTACAINE) 0.5 % ophthalmic solution 1 07/06/2021 documented in this encounter Care Teams Elevator Repairer Helper Relationship Specialty Start Date End Date Erwin Gardner MD [address] [place], [place] [id number] PCP - General 07/01/16 Kev Dey MD [address] [place] [address] Referring Physician Nephrology 05/10/19 Amelia Rodrigez DPM [address] [place], [place] [id number] Consulting Physician Foot and Ankle Surg 06/28/19 Meghan Cordero MD [address] [place] [address] Referring Physician Dermatology 06/02/21 Dennys Coates MD [address] [place] [address] [place] [address] Consulting Physician Dermatology 06/02/21 Erwin Velasquez MD [address] [place] [id number] Consulting Physician Cardiology 06/02/21 documented as of this encounter
--- OUTSIDE RECORDS SUMMARY | 2024-04-15 05:59 | XMS_ITS | Encounter Summary ---
Author Organization [facility] Address [address] [place] [address] Care Team Providers Care Color Laboratory Technician Name Role Phone Erwin Gardner MD Primary Care Provide r Kev Dey MD Unavailable [phone] Amelia Rodrigez DPM Unavailable [phone] Encounter Details Date Type Department Care Team (Latest Contact Info) Description 08/21/2020 Anticoagulation Visit [facility] Cardiology [address] [place] [address] Lillian Gallo, RN Atrial fibrillation, unspecified type (CMS/HCC) (Primary Dx) Social History Tobacco Use Types Packs/Day Years Used Date Smoking Tobacco: Never Smokeless Tobacco: Never Alcohol Use Standard Drinks/Week Comments No 0 (1 standard drink = 0.6 oz pur e alcohol) Sex and Gender Information Value Date Recorded Sex Assigned at Not on file 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 Gender Identity Not on file Sexual Orientation Not on file documented as of this encounter Plan of Treatment Not on file documented as of this encounter Visit Diagnoses Diagnosis Atrial fibrillation, unspecified type (HCC)- Primary documented in this encounter Care Teams Color Laboratory Technician Relationship Specialty Start Date End Date Erwin Gardner MD [address] [place] [address] PCP - General 07/01/16 Kev Dey MD [address] [place] [address] Referring Physician Nephrology 05/10/19 Amelia Rodrigez DPM [address] [place] [address] Consulting Physician Foot and Ankle Surg 06/28/19 documented as of this encounter
--- OUTSIDE RECORDS SUMMARY | 2024-04-15 05:59 | XMS_ITS | Encounter Summary ---
Author Organization [facility] Address [address] [place] [address] Phone Care Team Providers Care Competency Evaluated Nurse Aide Name Role Phone Erwin Gardner MD Primary Care Provide r Kev Dey MD Unavailable [phone] Amelia RodrigezM Unavailable [phone] Meghan Cordero MD Unavailable [phone] Dennys Coates MD Unavailable [phone] Erwin Velasquez MD Unavailable [phone] Encounter Details Date Type Department Care Team (Late st Contact Info) Description 06/07/2021 Documentation [facility] Ophthalmology [address] [facility] [address]th [place] [address] Marissa Yepez, B.A. Social History Tobacco Use Types Packs/Day Years Used Date Smoking Tobacco: Never Smokeless Tobacco: Never Alcohol Use Standard Drinks/Week Comments No 0 (1 standard drink = 0.6 oz pur e alcohol) AUDIT-C Answer Date Recorded Q1: How often do you have a drink containing alc ohol? Monthly or less 02/03/2021 Q2: How many drinks containi ng alcohol do you have on a typical day when you are drinking? 1 or 2 02/03/2021 Q3: How often do you have si x or more drinks on one occasion? 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 - 06/07/2021 11:32 AM CST Spoke with Doreen at [facility] per her NO PA is required for cpt code 65506..Level 3 referrals are being waived due to COVID . Ref# 06/07/21 @ 11:32 am Doreen. ER documented in this encounter Plan of Treatment Not on file documented as of this encounter Visit Diagnoses Not on filedocumented in this encounter Care Teams Competency Evaluated Nurse Aide Relationship Specialty Start Date End Date Erwin Gardner MD [address] [place] [address] PCP - General 07/01/16 Kev Dey MD [address] [place] [address] Referring Physician Nephrology 05/10/19 Amelia Rodrigez DPM [address] [place] [address] Consulting Physician Foot and Ankle Surg 06/28/19 Meghan Cordero MD [address] [place] [address] Referring Physician Dermatology 06/02/21 Dennys Coates MD [address] [place] [address] [place] [address] Consulting Physician Dermatology 06/02/21 Erwin Velasquez MD [address] [place] [address] Consulting Physician Cardiology 06/02/21 documented as of this encounter
--- OUTSIDE RECORDS SUMMARY | 2024-04-15 05:59 | XMS_ITS | Encounter Summary ---
Author Organization [facility] Address [address] [place] [address] Phone Care Team Providers Care Fuse Assembler Name Role Phone Erwin Gardner MD Primary Care Provide r Kev Dey MD Unavailable [phone] Amelia RodrigezM Unavailable [phone] Meghan Cordero MD Unavailable [phone] Dennys Coates MD Unavailable [phone] Erwin Velasquez MD Unavailable [phone] Encounter Details Date Type Department Care Team (Late st Contact Info) Description 06/03/2021 Documentation [facility] Ophthalmology [facility] Outpatient Health 6th [place] [address] Marissa Yepez, B.A. 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 - 06/03/2021 1:55 PM CST FAXED REQUEST TO HOLD WARFARIN 2-3 DAYS PRIOR TO SURGERY TO DR VELASQUEZ AT [phone] H OPERATOR documented in this encounter Plan of Treatment Not on file documented as of this encounter Visit Diagnoses Not on filedocumented in this encounter Care Teams Fuse Assembler Relationship Specialty Start Date End Date Erwin Gardner MD [address] [place], [place] [id number] PCP - General 07/01/16 Kev Dey MD [address] [place], [place] [address] Referring Physician Nephrology 05/10/19 Amelia Rodrigez DPM [address] [place] [address] Consulting Physician Foot and Ankle Surg 06/28/19 Meghan Cordero MD [address] [place] [address] Referring Physician Dermatology 06/02/21 Dennys Coates MD [address] [place] [address] [place] [address] Consulting Physician Dermatology 06/02/21 Erwin Velasquez MD [address] [address] Consulting Physician Cardiology 06/02/21 documented as of this encounter
--- OUTSIDE RECORDS SUMMARY | 2024-04-15 05:59 | XMS_ITS | Encounter Summary ---
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 Gender Identity Not on file Sexual Orientation Not on file documented as of this encounter Plan of Treatment Not on file documented as of this encounter Visit Diagnoses Diagnosis Atrial fibrillation, unspecified type (HCC)- Primary documented in this encounter Care Teams Chemistry Manager Relationship Specialty Start Date End Date Erwin Gardner MD [address] [place] [address] PCP - General 07/01/16 Kev Dey MD [address] [place] [address] Referring Physician Nephrology 05/10/19 Amelia Rodrigez DPM [address] [place] [address] Consulting Physician Foot and Ankle Surg 06/28/19 documented as of this encounter
--- OUTSIDE RECORDS SUMMARY | 2024-04-15 05:59 | XMS_ITS | Encounter Summary ---
Author Organization [facility] Address [address] [place] [address] Phone Care Team Providers Care Shipbuilding Draftsperson Name Role Phone Erwin Gardner MD Primary Care Provide r Kev Dey MD Unavailable [phone] Amelia RodrigezM Unavailable [phone] Meghan Cordero MD Unavailable [phone] Dennys Coates MD Unavailable [phone] Erwin Velasquez MD Unavailable [phone] Encounter Details Date Type Department Care Team (Late st Contact Info) Description 06/02/2021 8:00 AM COCOA MILLING 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 Office Visit [facility] Ophthalmology [address] [facility] Outpatient Health 6th [place] [address] Renaldo Eisenberg MD [address] [facility] [address] [place] [address] Basal cell carcinoma (BCC) of right upper eyelid (Primary Dx) Social [...] on file Legal Sex Male 11:57 AM COCOA MILLING 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 Gender Identity Not on file Sexual Orientation Not on file documented as of this encounter Patient Instructions * Patient Instructions* Renaldo Eisenberg MD - 06/02/2021 8:00 AM COCOA MILLING 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 A MILLING 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 documented in this encounter Progress Notes * Renaldo Eisenberg MD - 06/02/2021 8:00 AM CST Images from the original note were not included. Date of Visit: 06/02/2021 Patient Name: Erwin Isaac : 1950 Gender: male Primary Care Provider: Erwin Gardner MD Referring Provider: Meghan Cordero MD History: This 71 y.o. year old male presents for evaluation of a lesion of the right upper eyelid (RUL) that has been present since last Fall. A biopsy has been performed by his claim technician (basal cell) several weeks ago. No history of skin malignancy. On warfarin for a fib, cardiomyopathy, CHF. He has been able to hold it in the past. Has had 3 covid vaccines. Examination: Base Eye Exam Visual Acuity (Snellen - Linear) Right Left Dist cc 20/25 20/20 Correction: Glasses Tonometry (Tonopen, 8:35 AM) Right Left Pressure 16 16 Pupils Dark Light Shape React APD Right 4.5 3.5 Round Brisk None Left 4.5 3.5 Round Brisk None Visual Sharma Left Right Full Full Extraocular Movement Right Left Full, Ortho Full, Ortho Neuro/Psych Oriented x3: Yes Mood/Affect: Normal Impression: Basal cell carcinoma of the right [...] We will coordinate therapy with Mohs Surgery. I have personally examined the patient, participated in all aspects of their care, and formulated the treatment plan. A MILLING 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 documented in this encounter Plan of Treatment Not on file documented as of this encounter Visit Diagnoses Diagnosis Basal cell carcinoma (BCC) of right upper eyelid- Primary documented in this encounter Historical Medications * This list may reflect changes made after this encounter. triamcinolone (KENALOG) 0.1 % cream Apply topically as needed 05/29/2021 added in this encounter Eye Exam Visual Acuity (Snellen - Linear) Right eye Left eye Dist cc 20/25 20/20 Correction: Glasses Tonometry (Tonopen, 8:35 AM) Right eye Left eye Pressure 16 16 Pupils Dark Light Shape React APD Right eye 4.5 3.5 Round Brisk None Left eye 4.5 3.5 Round Brisk None Visual Sharma Right eye Left eye Full Full Extraocular Movement Right eye Left eye Full, Ortho Full, Ortho Neuro/Psych Oriented x3: Yes Mood/Affect: Normal External Exam Nodular basal cell carcinoma (BCC) medial right upper eyelid (RUL), mild dermatochalasis. Slit Lamp Exam Right eye Left eye Lids/Lashes Normal Conjunctiva/Sclera White and quiet White and dee dee et Cornea Clear Clear Anterior Chamber Deep and quiet Deep and quiet Iris Round and reactive Round and brian ctive Lens Posterior chamber in traocular lens Posterior chamber intraocular lens Care Teams Shipbuilding Draftsperson Relationship Specialty Start Date End Date Erwin Gardner MD [address] [place] [address] PCP - General 07/01/16 Kev Dey MD [address] [place] [address] Referring Physician Nephrology 05/10/19 Amelia Rodrigez DPM [address] [place] [address] Consulting Physician Foot and Ankle Surg 06/28/19 Meghan Cordero MD [address] [place] [address] Referring Physician Dermatology 06/02/21 Dennys Coates MD [address] [place] [address] [place], [place] [id number] Consulting Physician Dermatology 06/02/21 Erwin Velasquez MD [address] [facility] [address] [facility] [address] [place] [address] Consulting Physician Cardiology 06/02/21 documented as of this encounter
--- OUTSIDE RECORDS SUMMARY | 2024-04-15 05:59 | XMS_ITS | Encounter Summary ---
Author Organization [facility] Address [address] [facility] [address] [place] [address] Care Team Providers Care Hedis Nurse Name Role Phone Erwin Gardner MD Primary Care Provide r Kev Dey MD Unavailable [phone] Amelia RodrigezM Unavailable [phone] Encounter Details Date Type Department Care Team (Late st Contact Info) Description 11/09/2020 Orders Only [facility] Cardiology [address] [place] [address] ProviderAshly MD [place] [address] Social History Tobacco Use Types Packs/Day Years Used Date Smoking Tobacco: Never Smokeless Tobacco: Never Alcohol Use Standard Drinks/Week Comments No 0 (1 standard drink = 0.6 oz pur e alcohol) Sex and Gender Information Value Date Recorded Sex Assigned at Not on file 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 Gender Identity Not on file Sexual Orientation Not on file documented as of this encounter Plan of Treatment Not on file documented as of this encounter Procedures Procedure Name Priority Date/Time Associated Diagnosis Comments LIPID PANEL Routine 08/20/2020 6:45 AM CDT documented in this encounter Results * (ABNORMAL) Lipid panel (08/20/2020 6:45 AM CDT) SCRIBED Cholesterol, Total 186 0 - 200 EXTERNAL LAB SCRIBED HDL 47 40 - 100 EXTERNAL LAB SCRIBED LDL 105(A) 0 - 100 EXTERNAL LAB SCRIBED Triglycerides 226(A) 0 - 150 EXTERNAL LAB Blood specimen (specimen) us Historical Provider LAB BLOOD ORDERABLES Edit ed Result - Final EXTERNAL LAB documented in this encounter Visit Diagnoses Not on filedocumented in this encounter Care Teams Hedis Nurse Relationship Specialty Start Date End Date Erwin Gardner MD [address] [place] [address] PCP - General 07/01/16 Kev Dey MD [address] [place] [address] Referring Physician Nephrology 05/10/19 Amelia Rodrigez DPM [address] [place] [address] Consulting Physician Foot and Ankle Surg 06/28/19 documented as of this encounter
--- OUTSIDE RECORDS SUMMARY | 2024-04-15 05:59 | XMS_ITS | Encounter Summary ---
Author Organization [facility] Address [address] [facility] [address] [address] Care Team Providers Care Dyer Helper Name Role Phone Erwin Gardner MD Primary Care Provide r Kev Dey MD Unavailable [phone] Amelia Rodrigez DPM Unavailable [phone] Reason for Visit * Reason Comments Follow-up 6 mo follow up on a- fib, CM * Consultation (Routine) - Closed Specialty Diagnoses / Procedures Referred By Megan raymond Referred To Contact Cardiology Diagnoses Permanent atrial fibrillation (CMS/HCC) (HCC) Erwin Gardner MD [address] [place] [address] Phone: tel: fax: [facility] Cardiology [address] [place] [address] Phone: tel: fax: Referral ID Status Reason Start Date Expiration Date V isits Requested Visits Authorized [id number] Closed Specialty Services Required 11/05/2020 04/02/2021 3 3 Encounter Details Date Type Department Care Team (Late st Contact Info) Description 11/05/2020 8:15 AM CDT Office Visit [facility] Cardiology [address] [place] [address] Erwin Velasquez MD [address] [address] Cardiomyopathy, idiopathic (CMS/HCC) (HCC) (Primary Dx); Permanent atrial fibrillation (CMS/HCC) (HCC) Social History Tobacco Use Types Packs/Day Years Used Date Smoking Tobacco: Never Smokeless Tobacco: Never Alcohol Use Standard Drinks/Week Comments No 0 (1 standard drink = 0.6 oz pur e alcohol) Sex and Gender Information Value Date Recorded Sex Assigned at Not on file Legal Sex Male 11:57 AM POLYSOM TECH Gender Identity Not on file Sexual Orientation Not on file documented as of this encounter Last Filed Vital Signs Vital Sign Reading Time Taken Comments Blood Pressure 120/64 11/05/2020 8:22 AM CDT Pulse 85 11/05/2020 8:22 AM CDT Temperature - - Respiratory Rate - - Oxygen Saturation 97% 11/05/2020 8:22 AM CDT Inhaled Oxygen Concentration - - Weight 142.4 kg (314 lb) 11/05/2020 8:22 AM CDT Height 190.5 cm (6' 3 ) 11/05/2020 8:22 AM CDT Body Mass Index 39.25 11/05/2020 8:22 AM CDT documented in this encounter Progress Notes * Erwin Velasquez MD - 11/05/2020 8:15 AM CDT [facility] FOLLOW UP 11/05/2020 Erwin Isaac is a 70 y.o. male who presents for follow up of chronic atrial fibrillation and a history of nonischemic cardiomyopathy. The patient initially presented in June of 2002 and with medical treatment did very well. Catheterization at that time demonstrated normal coronary arteries. He developed atrial fibrillation in the summer of 2015. Attempt at cardioversion failed and since then he has been anticoagulated and rate controlled. The patient presents today for scheduled six-month appointment. He is doing well and does not have any cardiac symptoms to report. He tells me that is chronic kidney disease is worsening and his bone drier is considering having him get a renal biopsy which he will discuss an upcoming appointment. REVIEW OF SYSTEMS General ROS: negative for [...] rash HOME MEDICATIONS Current Outpatient Medications: ??? atorvastatin (LIPITOR) 20 mg tablet, Take 1 tablet (20 mg total) by mouth daily, Disp: 90 tablet, Rfl: 3 ??? carvediloL (COREG) 25 mg tablet, Take 12.5 mg by mouth 2 (two) times a day with meals, Disp: , Rfl: ??? fenofibrate (TRIGLIDE) 160 mg tablet, Take 1 tablet (160 mg total) by mouth daily, Disp: 90 tablet, Rfl: 3 ??? fish oil-dha-epa 1,200-144-216 mg capsule, Take 1 capsule by mouth 2 (two) times a day, Disp: ,Rfl: ??? furosemide (LASIX) 80 mg tablet, Take 1.5 tablets (120 mg total) by mouth daily, Disp: 135 tablet, Rfl: 2 ??? insulin regular (HumuLIN R, NovoLIN R) 100 unit/mL injection, Inject under the skin 3 (three) times a day before meals., Disp: , Rfl: ??? losartan (COZAAR) 50 mg tablet, Take 1 tablet (50 mg total) by mouth daily, Disp: 90 tablet, Rfl: 3 ??? potassium chloride ER (potassium chloride ER) 20 mEq CR tablet, Take 1 tablet (20 mEq total) bymouth daily, Disp: 90 tablet, Rfl: 3 ??? spironolactone (ALDACTONE) 50 mg tablet, Take 1 tablet (50 mg total) by mouth daily, Disp: 90 tablet, Rfl: 3 ??? ULTICARE 1 mL 30 gauge x 1/2 syringe, , Disp: , Rfl: ??? warfarin (COUMADIN) 2.5 mg tablet, Take 2.5 mg by mouth 2 (two) times a week, Disp: , Rfl: ??? warfarin (COUMADIN) 5 mg tablet, Take 1 tablet (5 mg total) by mouth daily, Disp: 30 tablet, Rfl: 0 LABS AND OTHER DIAGNOSTIC TESTS No results found for: CHOL No results found for: HDL No results found for: LDLCALC No results found for: TRIG No results found for: CHOLHDL Lab Results Component Value Date WBC 7.0 07/22/2019 HGB 12.3 (L) 07/22/2019 HCT 36.8 (L) 07/22/2019 MCV 90.4 07/22/2019 No lab exists for component: LABALBU PHYSICAL EXAM Vitals BP 120/64 (BP Location: Left arm, Patient Position: Sitting) Pulse 85 Ht 190.5 cm (6' 3 ) Wt (!) 142.4 kg (314 lb) SpO2 97% BMI 39.25 kg/m?? Physical Examination: General appearance -significantly obese [...] noted ASSESSMENT Erwin was seen today for follow-up. Diagnoses and all orders for this visit: Cardiomyopathy, idiopathic (CMS/HCC) (HCC) Permanent atrial fibrillation (CMS/HCC) (HCC) - Ambulatory referral to Cardiology PLAN/RECOMMENDATIONS Continue current rate control and anticoagulation strategy Follow-up at 6 month intervals Erwin Velasquez MD documented in this encounter Plan of Treatment Not on file documented as of this encounter Visit Diagnoses Diagnosis Cardiomyopathy, idiopathic (HCC)- Primary Other primary cardiomyopathies Permanent atrial fibrillation (CMS/HCC) (HCC) Atrial fibrillation documented in this encounter Orders Outpatient Referral Count Last Ordered Date Fir st Ordered Date AMB REFERRAL TO CARDIOLOGY 1 11/05/2020 documented in this encounter Care Teams Dyer Helper Relationship Specialty Start Date End Date Erwin Gardner MD [address] [place] [address] PCP - General 07/01/16 Kev Dey MD [address] [place] [address] Referring Physician Nephrology 05/10/19 Amelia Rodrigez DPM [address] [place] [address] Consulting Physician Foot and Ankle Surg 06/28/19 documented as of this encounter
--- OUTSIDE RECORDS SUMMARY | 2024-04-15 05:59 | XMS_ITS | Encounter Summary ---
Author Organization [facility] Address [address] [place] [address] Phone Care Team Providers Care Winding Department Supervisor Name Role Phone Erwin Gardner MD Primary Care Provide r Kev Dey MD Unavailable [phone] Amelia RodrigezM Unavailable [phone] Meghan Cordero MD Unavailable [phone] Dennys Coates MD Unavailable [phone] Erwin Velasquez MD Unavailable [phone] Encounter Details Date Type Department Care Team (Late st Contact Info) Description 06/15/2021 Documentation [facility] Ophthalmology [facility] Outpatient Health 6th [place] [address] Marissa Yepez, B.A. 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 - 06/15/2021 1:01 PM CDT Sent a third request to Dr. Velasquez [phone] for patient to hold Warfarin 2-3 days prior to surgery . documented in this encounter Plan of Treatment Not on file documented as of this encounter Visit Diagnoses Not on filedocumented in this encounter Care Teams Winding Department Supervisor Relationship Specialty Start Date End Date Erwin Gardner MD [address] [place] [address] PCP - General 07/01/16 Kev Dey MD [address] [place], [place] [address] Referring Physician Nephrology 05/10/19 Amelia Rodrigez DPM [address] [place] [address] Consulting Physician Foot and Ankle Surg 06/28/19 Meghan Cordero MD [address] [place] [address] Referring Physician Dermatology 06/02/21 Dennys Coates MD [address] [place] [address] [place] [address] Consulting Physician Dermatology 06/02/21 Erwin Velasquez MD [address] [address] Consulting Physician Cardiology 06/02/21 documented as of this encounter
--- OUTSIDE RECORDS SUMMARY | 2024-04-15 05:59 | XMS_ITS | Encounter Summary ---
Author Organization [facility] Address [address] [facility] [address] [place] [address] Care Team Providers Care Manager Freelance Name Role Phone Erwin Gardner MD Primary Care Provide r Kev Dey MD Unavailable [phone] Amelia Rodrigez DPM Unavailable [phone] Encounter Details Date Type Department Care Team (Latest Contact Info) Description 07/31/2020 Anticoagulation Visit [facility] Cardiology [address] [place] [address] Lillian Gallo, RN Atrial fibrillation, unspecified type (CMS/HCC) Social History Tobacco Use Types Packs/Day Years Used Date Smoking Tobacco: Never Smokeless Tobacco: Never Alcohol Use Standard Drinks/Week Comments No 0 (1 standard drink = 0.6 oz pur e alcohol) Sex and Gender Information Value Date Recorded Sex Assigned at Not on file Legal 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 Male 11: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 WORKER Gender Identity Not on file Sexual Orientation Not on file documented as of this encounter Plan of Treatment Not on file documented as of this encounter Visit Diagnoses Diagnosis Atrial fibrillation, unspecified type (HCC) documented in this encounter Care Teams Manager Freelance Relationship Specialty Start Date End Date Erwin Gardner MD [address] [place] [address] PCP - General 07/01/16 Kev Dey MD [address] [place] [address] Referring Physician Nephrology 05/10/19 Amelia Rodrigez DPM [address] [place] [address] Consulting Physician Foot and Ankle Surg 06/28/19 documented as of this encounter
--- OUTSIDE RECORDS SUMMARY | 2024-04-15 05:59 | XMS_ITS | Encounter Summary ---
Author Organization [facility] Address [address] [address] [place] [address] Care Team Providers Care Plasterer Stucco Name Role Phone Erwin Gardner MD Primary Care Provide r Kev Dey MD Unavailable [phone] Amelia Rodrigez DPM Unavailable [phone] Encounter Details Date Type Department Care Team (Latest Contact Info) Description 06/18/2020 Anticoagulation Visit [facility] Cardiology [address] [place] [address] Lillian Gallo, RN Atrial fibrillation, unspecified type (CMS/HCC) Social History Tobacco Use Types Packs/Day Years Used Date Smoking Tobacco: Never Smokeless Tobacco: Never Alcohol Use Standard Drinks/Week Comments No 0 (1 standard drink = 0.6 oz pur e alcohol) Sex and Gender Information Value Date Recorded Sex Assigned at Not on file Legal Sex Male 11:57 AM RACE STEWARD Gender Identity Not on file Sexual Orientation Not on file documented as of this encounter Plan of Treatment Not on file documented as of this encounter Visit Diagnoses Diagnosis Atrial fibrillation, unspecified type (HCC) documented in this encounter Care Teams Plasterer Stucco Relationship Specialty Start Date End Date Erwin Gardner MD [address] [place] [address] PCP - General 07/01/16 Kev Dey MD [address] [place] [address] Referring Physician Nephrology 05/10/19 Amelia Rodrigez DPM [address] [place] [address] Consulting Physician Foot and Ankle Surg 06/28/19 documented as of this encounter
--- OUTSIDE RECORDS SUMMARY | 2024-04-15 05:59 | XMS_ITS | Encounter Summary ---
Author Organization [facility] Address [address] [facility] [address] [place] [address] Care Team Providers Care Guideman Name Role Phone Erwin Gardner MD Primary Care Provide r Kev Dey MD Unavailable [phone] Amelia RodrigezM Unavailable [phone] Meghan Cordero MD Unavailable [phone] Dennys Coates MD Unavailable [phone] Erwin Velasquez MD Unavailable [phone] Encounter Details Date Type Department Care Team (Late st Contact Info) Description 06/04/2021 Orders Only [facility] Testing Site - [place], [place] [address] [place] [phone] Renaldo Eisenberg MD [address] [facility] [address] [place] [address] Pre-procedure lab exam (Primary Dx) Social History Tobacco Use Types [...] on file 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 Date of Procedure/Chemo/Treatment 07/06/2021 ?? Testing site patient will be sent to: [place], [place] ?? Date testing requested: 07/03/2021 ?? Testing: COVID-19 RNA ?? Is this the first COVID-19 test for this patient? Unknown ?? Does the patient currently work in a healthcare facility with direct patient contact? No ?? Is the patient a resident of a congregate care or living setting? No ?? Please select the performing region: [facility] ?? 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 documented in this encounter Plan of Treatment Not on file documented as of this encounter Visit Diagnoses Diagnosis Pre-procedure lab exam- Primary Pre-procedural laboratory examination documented in this encounter Care Teams Guideman Relationship Specialty Start Date End Date Erwin Gardner MD [address] [place] [address] PCP - General 07/01/16 Kev Dey MD [address] [place] [address] Referring Physician Nephrology 05/10/19 Amelia Rodrigez DPM [address] [place] [address] Consulting Physician Foot and Ankle Surg 06/28/19 Meghan Cordero MD [facility] [place] [address] Referring Physician Dermatology 06/02/21 Dennys Coates MD [address] [place] [address] [place] [address] Consulting Physician Dermatology 06/02/21 Erwin Velasquez MD [address] [place], [place] [id number] Consulting Physician Cardiology 06/02/21 documented as of this encounter
--- OUTSIDE RECORDS SUMMARY | 2024-04-15 05:59 | XMS_ITS | Encounter Summary ---
Author Organization [facility] Address [address] [place] [address] Care Team Providers Care Crossing Watchman Name Role Phone Erwin Gardnre MD Primary Care Provide r Kev Dey MD Unavailable [phone] Amelia Rodrigez DPM Unavailable [phone] Encounter Details Date Type Department Care Team (Latest Contact Info) Description 01/06/2021 2:15 PM CDT - 01/06/2021 11:59 PM CDT Hospital Encounter [facility] [employer] [address] [facility] [place] [address] Discharge Disposition: Discharge to home or self care Social History Tobacco Use Types Packs/Day Years Used Date Smoking Tobacco: Never Smokeless Tobacco: Never Alcohol Use Standard Drinks/Week Comments No 0 (1 standard drink = 0.6 oz pur e alcohol) Sex and Gender Information Value Date Recorded Sex Assigned at Not on file 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 Gender Identity Not on file Sexual Orientation Not on file documented as of this encounter Medications at Time of Discharge fish oil-dha-epa 1,200-144-216 mg capsule Take 1 capsule by mouth 2 (two) times a day insulin regular (HumuLIN R, NovoLIN R) 100 unit/mL injectionIndicatio ns:type 2 diabetes mellitus Inject under the skin 3 (three) times a day before meals Sliding scale ULTICARE 1 mL 30 gauge x 1/2 [...] meals 2 fenofibrate (TRIGLIDE) 160 mg tablet Take 1 tablet (160 mg total) by mouth daily 90 tablet 3 06/01/2020 2 furosemide (LASIX) 80 mg tablet Take 1.5 tablets (120 mg total) by mouth daily 135 tablet 2 05/11/2020 1 losartan (COZAAR) 50 mg tablet Take 1 tablet (50 mg total) by mouth daily 90 tablet 3 05/13/2020 2 potassium chloride ER (potassium chloride ER) 20 mEq CR tablet Take 1 tablet (20 mEq total) by mouth daily 90 tablet 3 05/27/2020 2 spironolactone (ALDACTONE) 50 mg tablet TAKE 1 TABLET BY MOUTH EVERY DAY 90 tablet 12/11/2020 1 warfarin (COUMADIN) 5 mg tablet TAKE 1 TABLET BY MOUTH EVERY DAY 30 tablet 3 12/20/2020 1 documented as of this encounter Discharge Disposition Disposition Code Departure Means Destination Discharge to home or self care documented in this encounter Plan of Treatment Not on file documented as of this encounter Procedures Procedure Name Priority Date/Time Associated Diagnosis Comments US TRANSFER OF OUTSIDE FILMS Routine 01/06/2021 2:15 PM CDT documented in this encounter Results * US Outside Reference (01/06/2021 2:15 PM CDT) Narrative HUGO_MARIA DOLORESJANEEN_MHFortunato_MHE - 01/20/2021 11:55 AM CDT This order has been auto-finalized and does not contain a result. us Provider Transcribed Order IMG US PROCEDURES Fin al Result RAD_CLARIO_MHB_MHE documented in this encounter Visit Diagnoses Not on filedocumented in this encounter Care Teams Crossing Watchman Relationship Specialty Start Date End Date Erwin Gardner MD [address] [place] [address] PCP - General 07/01/16 Kev Dey MD [address] [place] [address] Referring Physician Nephrology 05/10/19 Amelia Rodrigez DPM [address] [place] [address] Consulting Physician Foot and Ankle Surg 06/28/19 documented as of this encounter
--- OUTSIDE RECORDS SUMMARY | 2024-04-15 05:59 | XMS_ITS | Encounter Summary ---
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 Gender Identity Not on file Sexual Orientation Not on file documented as of this encounter Plan of Treatment Not on file documented as of this encounter Visit Diagnoses Diagnosis Atrial fibrillation, unspecified type (HCC)- Primary documented in this encounter Care Teams Behavioral Health Associate Relationship Specialty Start Date End Date Erwin Gardner MD [address] [place] [address] PCP - General 07/01/16 Kev Dey MD [address] [place] [address] Referring Physician Nephrology 05/10/19 Amelia Rodrigez DPM [address] [place] [id number] Consulting Physician Foot and Ankle Surg 06/28/19 documented as of this encounter
--- OUTSIDE RECORDS SUMMARY | 2024-04-15 05:59 | XMS_ITS | Encounter Summary ---
Author Organization [facility] Address [address] [place] [address] Phone Care Team Providers Care Hammersmith Helper Name Role Phone Erwin Gardner MD Primary Care Provide r Kev Dey MD Unavailable [phone] Amelia RodrigezM Unavailable [phone] Meghan Cordero MD Unavailable [phone] Dennys Coates MD Unavailable [phone] Erwin Velasquez MD Unavailable [phone] Encounter Details Date Type Department Care Team (Late st Contact Info) Description 07/01/2021 Documentation [facility] Ophthalmology [address] [facility] [facility] Out[facility] 6th [place] [address] Marissa Yepez, B.A. 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 - 07/01/2021 12:59 PM CDT LVM see Dr. Ren first for removal at 7:00 am . After removal check into 4 th floor CAM for repair with Dr. Eisenberg . Arrival time for repair is 12:30 have a swing driver and someone to stay with after sx. No food after midnight but can have clear liquids up to 2 hours prior to surgery. POV 07/14/21 @8:30 Stop Warfarin 3 days prior Covid test 07/03 at [facility] documented in this encounter Plan of Treatment Not on file documented as of this encounter Visit Diagnoses Not on filedocumented in this encounter Care Teams Hammersmith Helper Relationship Specialty Start Date End Date Erwin Gardner MD [address] [place] [address] PCP - General 07/01/16 Kev Dey MD [address] [place] [address] Referring Physician Nephrology 05/10/19 Amelia Rodrigez DPM [address] [place] [address] Consulting Physician Foot and Ankle Surg 06/28/19 Meghan Cordero MD [address] [place] [address] Referring Physician Dermatology 06/02/21 Dennys Coates MD [address] [place] [address] [place] [address] Consulting Physician Dermatology 06/02/21 Erwin Velasquez MD [address] [facility] [address] [place], [place] [id number] Consulting Physician Cardiology 06/02/21 documented as of this encounter
--- OUTSIDE RECORDS SUMMARY | 2024-04-15 05:59 | XMS_ITS | Encounter Summary ---
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 Gender Identity Not on file Sexual Orientation Not on file documented as of this encounter Plan of Treatment Not on file documented as of this encounter Procedures Procedure Name Priority Date/Time Associated Diagnosis Comments SURGICAL PATHOLOGY Routine 02/03/2021 9: 00 AM CDT documented in this encounter Results * Surgical pathology (02/03/2021 9:00 AM CDT) Kidney biopsy, transplant 02/03/2021 9:00 AM CDT 02/03/2021 10:51 AM CDT Narrative 02/04/2021 5:18 PM CDT EPIC results best viewed via link to PDF [facility] [place] [address] Note to Patients: This report may contain a detailed description of human tissue sent by a health care provider to the laboratory for pathologic evaluation. The content of this report is essential for diagnosis and may provide important critical findings. This information may be unfamiliar to patients to review without a medical professional present. It is advised that the patient review this report in the presence of a health care provider who can answer questions and explain the details. SURGICAL PATHOLOGY REPORT FINAL WITH ADDENDUM Patient Name: ?? ERWIN ISAAC Gender: ??M : ??1950 (Age: 70) Address: ??[address] [place] [address] ??[address] Hospital #: ??[id number] Taken:02/03/2021 Received:02/03/2021 Reported: 02/04/2021 Patient Type: [facility] Ref Lab ?? Service: Laboratory Location: [facility] Physician(s): ??MD Kev Matthews MD Michael E. Mandis, M.D. Diagnosis: A. ??Kidney, left, needle core biopsy ? - ??Diabetic nephropathy, RPS class IIb ? 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 - ??Interstitial fibrosis and tubular atrophy, moderate ? - ??Arteriosclerosis, severe ncm/02/04/2021 14:28 By this signature, I attest that the above diagnosis is based upon my personal examination of the slides(and/or other material indicated in the diagnosis). Delaney Lugo M.D. Report Electronically Reviewed and Signed Out By ??Delaney Lugo M.D. 02/04/2021 17:18:41 Microscopic Description and Comment: Light Microscopy Tissue for light microscopy is evaluated at 8 levels of section with H&E, PAS, Jane's trichrome, and Meehan' silver stains. ??Two cores of renal tissue are present, entirely represented by cortex. Up to 34 are available for evaluation, 17 of which are globally sclerotic. ??There is diffuse moderate to severe mesangial expansion without formation of mesangial nodules. There is no crescent formation, endocapillary hypercellularity, or fibrinoid necrosis present. The cortical tubulointerstitial tissue has moderate interstitial fibrosis and tubular atrophy affecting approximately 30% of the cortex. ??There is a mild inflammatory infiltrate that predominantly involves the areas of fibrotic interstitium, and it is mostly represented by mononuclear cells. PAS-positive proteinaceous casts are seen, with no evidence of surrounding cellular reaction. ??Small arteries and arterioles show severe arteriosclerosis and severe arteriolar hyalinosis. ??A Congo red stain is negative for amyloid deposits. Immunofluorescence Microscopy Frozen sections of tissue submitted for immunofluorescence microscopy are stained with H&E and evaluated by light microscopy. ??25 glomeruli are present for evaluation, 17 globally sclerotic. Direct immunofluorescence microscopy is performed on frozen sections, with appropriate controls, stained with fluoresceinated antisera to IgG, IgA, IgM, C1q, C3, albumin, fibrin, and kappa and lambda light chains to evaluate for immune mediated kidney disease. ??There is linear accentuation of the basement membranes with IgG, albumin, and kappa and lambda light chains. The remaining stains are negative in the glomeruli. ??Tubular casts and protein resorption droplets stain positive for kappa and lambda of equal intensity. ??There is positive staining of arterioles with C3 and tubular casts with IgA. Section quality is satisfactory and positive and negative controls stain appropriately. ?? Electron Microscopy Plastic sections of the tissue submitted for electron microscopy were stained with Toluidine blue and evaluated by light microscopy. ??Two glomeruli are present, one globally sclerotic. ??The tubulointerstitial and vascular compartments show similar findings as the light microscopic sample. The glomerulus evaluated by electron microscopy has no immune type electron dense deposits. ??The glomerular basement membranes are thickened and uniform. ??There is mild, segmental podocyte foot process effacement. The tubular basement membranes do not show immune type electron dense deposits. ?? History: The patient is a 70-year-old male with a history of worsening chronic kidney disease, MGUS. ??Clinical history includes atrial fibrillation, congestive heart failure, type II diabetes mellitus, and essential hypertension. Procedure: US guided biopsy renal. Specimen(s) Received: A: Random left renal tissue B: Random left renal tissue - for If C: Tissue for EM Gross Description: The specimens are received in three containers each labeled with the patient's name. A.. ??Received in formalin labeled random left renal tissue and consists of two core fragment(s) of villavicencio pink soft tissue ranging from 0.7-1.3 cm in length by 0.1 cm in diameter. ??Wrapped. ??Labeled A1. ??Jar 0. B.. ??Received in Trell's medium labeled random left renal tissue and consists of one core fragment(s) of villavicencio pink soft tissue 1.3 x 0.1 x 0.1 cm. ??Specimen is entirely submitted for Immunofluorescence. ??Supplemental fat. C.. ??Received in Karnovsky's medium labeled random left renal tissue and consists of four core fragment(s) of villavicencio pink soft tissue (0.2 x 0.1 x 0.1 cm each). Specimen is entirely submitted for Electron Microscopy. ?? [facility]/02/03/2021 11:55 PA(s): Rajesh Carrington By this signature, I attest that the above diagnosis is based upon my personal examination of the slides(and/or other material). Addenda/Procedures Addendum Ordered: 02/04/2021 Status: Signed Out Addendum Complete: 02/04/2021 By: Delaney Lugo M.D. Addendum Signed Out: 02/05/2021 ?? Addendum Diagnosis Electron micrographs and/or one micron thickplastic embedded sections generated by the Electron Microscopy Facility for this case are satisfactory for evaluation. Addendum Comment Electron micrographs and/or one micron thickplastic embedded sections generated by the Electron Microscopy Facility for this case are satisfactory for evaluation. ?? By this signature, I attest that the above diagnosis is based upon my personal examination of the slides(and/or other material indicated in the diagnosis). ? Report Electronically Reviewed and Signed Out By ??Delaney Lugo M.D. ??02/05/2021 11:00:28 ? The performance characteristics of some immunohistochemical stains, fluorescence in-situ hybridization tests and immunophenotyping by flow cytometry cited in this report (if any) were determined by the Surgical Pathology and Flow Cytometry Departments at [facility] as part of an ongoing clinical quality assurance associate program and in compliance with federally mandated regulations drawn from the Clinical Laboratory Improvement Act of 1988 (CLIA '88). ??Some of these tests rely on the use of analyte specific reagents and are subject to specific labeling requirements by the US Food and Drug Administration. ??Such diagnostic tests may only be performed in a facility that is certified by the Department of Health and Human Services as a high complexity laboratory under CLIA '88. ??The FDA has determined that such clearance or approval is not necessary. ??This test is used for clinical purposes. ??It should not be regarded as investigational or for research. ??Nevertheless, federal rules concerning the medical use of analyte specific reagents require that the following disclaimer be attached to the report: This test was developed and its performance characteristics determined by the Surgical Pathology and Flow Cytometry Departments of [facility]. ??It has not been cleared or approved by the U. S. Food and Drug Administration. IMAGES AND SCANNED DOCUMENTS, IF INCLUDED, ONLY VIEWABLE IN PDF VERSION OF REPORT Jimbo Manzanares MD LAB PATHOLOGY ORDERABLES Final Result documented in this encounter Visit Diagnoses Not on filedocumented in this encounter Care Teams Lens Coater Relationship Specialty Start Date End Date Erwin Gardner MD [address] [place] [address] PCP - General 07/01/16 Kev Dey MD [address] [place] [address] Referring Physician Nephrology 05/10/19 Amelia Rodrigez DPM [address] [place] [address] Consulting Physician Foot and Ankle Surg 06/28/19 documented as of this encounter
--- OUTSIDE RECORDS SUMMARY | 2024-04-15 05:59 | XMS_ITS | Encounter Summary ---
Author Organization [facility] Address [address] [place] [address] Care Team Providers Care Electronic Semiconductor Processor Name Role Phone Darlene Gardner MD Primary Care Provide r Kev Dey MD Unavailable [phone] Amelia Rodrigez DPM Unavailable [phone] Reason for Referral * Diagnostic Imaging (Routine) - Closed Specialty Diagnoses / Procedures Referred By Megan raymond Referred To Contact Diagnoses Monoclonal gammopathy Procedures US Guided Biopsy Renal Kev Dey MD [address] [place] [address] Phone: tel: fax: [address] [phone] Referral ID Status Reason Start Date Expiration Date Visits Re quested Visits Authorized [id number] Closed 01/28/2021 02/27/2022 1 1 Reason for Visit * Diagnostic Imaging (Routine) - Closed Specialty Diagnoses / Procedures Referred By Megan raymond Referred To Contact Diagnoses Monoclonal gammopathy Procedures US Guided Biopsy Renal Kev Dey MD [address] [place] [address] Phone: tel: fax: [address] [phone] Referral ID Status Reason Start Date Expiration Date Visits Re quested Visits Authorized [id number] Closed 01/28/2021 02/27/2022 1 1 Encounter Details Date Type Department Care Team (Latest Contact Info) Description 02/03/2021 6:55 AM CDT - 02/03/2021 11:59 PM CDT Hospital Encounter [address] [address] Monoclonal gammopathy Discharge Disposition: Discharge to home or self [...] file 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 * Percutaneous Kidney Biopsy (Discharge Care) (Solomon Islander) documented in this encounter Medications at Time of Discharge acetaminophen (TYLENOL) 500 mg tabletIndications: Arthritic Pain,Back Pain Take 2 tablets (1,000 mg total) by mouth nightly fish oil-dha-epa 1,200-144-216 mg capsule Take 1 [...] 06/01/2020 2 furosemide (LASIX) 80 mg tablet TAKE 1.5 TABLETS (120 MG TOTAL) BY MOUTH DAILY 135 tablet 1 01/21/2021 2 losartan (COZAAR) 50 mg tablet Take 1 [...] or self care documented in this encounter Miscellaneous Notes * Perioperative Nursing Note - Ada Gallego RN - 02/03/2021 1:10 PM CDT Patient received AVS. * Post-Procedure Note - Jimbo Manzanares MD - 02/03/2021 8:40 AM CDT Interventional Radiology Brief Postprocedure Note Darlene Isaac Attending: Glenna Diagnosis: Chronic kidney disease, monoclonal gammopathy Description of procedure: US-guided left renal (random) core biopsy Anesthesia: Conscious sedation Medication used: 0.5 mg Versed IV; 25 micrograms Fentanyl IV. Complications: None Estimated Blood Loss: minimal Specimens: 3 cores, 18G x 2cm handed to on-site pathology See detailed result report with images in PACS. The patient tolerated the procedure well without incident or complication and is in stable condition. He will proceed to recovery for 4 hours observation. During recovery, he should remain on bed rest in supine or left lateral decubitus position (may get up with assistance for bathroom). Orders entered. Jimbo Manzanares MD 02/03/2021 9:55 AM * Pre-Procedure Note - Jimbo Manzanares MD - 02/03/2021 8:40 AM CDT Interventional Radiology Preprocedure Note Indication for procedure: The encounter diagnosis was Monoclonal gammopathy. Relevant past medical/surgical history: History reviewed. No pertinent surgical history.. Past Medical History: Diagnosis Date ??? Adiposity Obesity ??? Atrial fibrillation (CMS/HCC) (HCC) afib ??? CHF (congestive heart failure) (CMS/HCC) (HCC) ??? Chronic kidney disease Stage III ??? HX OTHER MEDICAL Diabetes Type II ??? Hyperlipidemia ??? Hypertension Hypertension ??? Neuropathy (CMS/HCC) Feet ??? Type 2 diabetes mellitus (HCC) Relevant medications: Warfarin (held appropriately) Relevant family history: NA Relevant review of systems: NA Allergies: Patient has no known allergies. Relevant Labs: Lab Results Component Value Date CREATININE 1.86 (H) 04/25/2019 INR 1.1 02/03/2021 Last Blood Cx date and result: N/A Preprocedure Diet Instructions:NPO Directed physical examination: I have reviewed the relevant progress note from Dr. Dey, dated 01/27/2021, and am in agreement. Assessment/Plan: Proceed with ultrasound-guided percutaneous renal biopsy. Jimbo Manzanares MD * Perioperative Nursing Note - Rufina Mccullough RN - 02/03/2021 8:40 AM CDT Patient repositioned to left lateral side per radiology order. Patient aware of need to stay NPO with sips of clear liquids. Patient denies pain at this time. documented in this encounter Plan of Treatment Not on file documented as of this encounter Procedures Procedure Name Priority Date/Time Associated Diagnosis Comments US GUIDED BIOPSY RENAL Schedule Routine, Read Routine (OP Routine) 02/03/2021 9:43 AM CDT Monoclonal gammopathy SURGICAL PATHOLOGY Routine 02/03/2021 9: 31 AM CDT Monoclonal gammopathy POCT GLUCOSE DEVICE Routine 02/03/2021 7 :33 AM CDT APTT Routine 02/03/2021 7:31 AM CDT PROTIME-INR Routine 02/03/2021 7:31 AM CDT CBC WITHOUT DIFFERENTIAL Routine 02/03/2021 7:31 AM CDT documented in this encounter Results * US Guided Biopsy Renal (02/03/2021 9:43 AM CDT) Anatomical Region Laterality Modality Kidney N/A Ultrasound, Comp uted Radiography 02/03/2021 10:1 6 AM CDT Addenda Addendum by Jimbo Manzanares MD on 04/09/2021 9:51 AM SENIOR BOILER OPERATOR ADDENDUM: This addendum report supersedes the original report dated 02/03/2021 This addendum is to document sedation time, which was inadvertently omitted from the original report. ??Total monitored time was 40 minutes. END OF ADDENDUM REPORT THIS IS AN ELECTRONICALLY VERIFIED FINAL REPORT 04/09/2021 9:51 AM ??Addendum Electronically signed by Jimbo RICHARDSON D: ??04/09/2021 9:51 AM T: Report ID: [id number] Reading Location: ??[id number] Narrative 02/03/2021 10:24 AM CDT EXAM DESCRIPTION: ?? US GUIDED BIOPSY RENAL HISTORY: ?? monoclonal gammopathy, chronic kidney disease. ??Assess for evidence of renal involvement by processes related to Modic clinical myopathy. COMPARISON: ?? Outside renal ultrasound 01/06/2021 TECHNIQUE AND FINDINGS: The procedure was discussed with the patient, along with associated risks and benefits. Informed consent was obtained. Prior to the start of the procedure, a timeout was performed in which the patient's identity, site of procedure, and type of procedure was verified. The patient was placed in a right lateral decubitus position and a limited ultrasound of the left kidney was performed. An approach was chosen for biopsy of the lower pole. ??The overlying skin was prepped and draped in the usual sterile fashion. ??Local anesthesia was obtained with 1% lidocaine. Conscious sedation was obtained using Fentanyl and Versed, with amounts listed below; the patient was monitored during sedation by a qualified radiology nurse. Medications administered as follows: Versed 0.5 mg, IV Fentanyl 25 mcg, IV An 18-gauge core needle biopsy system was used. A total of 3 passes were made. Needle placement was documented with sonographic images. ??The samples handed to on-site pathology for analysis. The patient tolerated the procedure well without immediate complications, and was sent to recovery for post-procedure monitoring. Estimated blood loss: ??<5 mL COMPLICATIONS: ??None. IMPRESSION: ?? Successful ultrasound guided random core biopsy of the lower pole of the left kidney. THIS IS AN ELECTRONICALLY VERIFIED FINAL REPORT 02/03/2021 10:24 AM - Electronically signed by Jimbo RICHARDSON D: ??02/03/2021 10:24 AM T: Report ID: [id number] Reading Location: ??[id number] Procedure Note Jimbo Manzanares MD - 02/03/2021 EXAM DESCRIPTION: US GUIDED BIOPSY RENAL HISTORY: monoclonal gammopathy, chronic kidney disease. Assess forevidence of renal involvement by processes related to Modic clinical myopathy. COMPARISON: Outside renal ultrasound 01/06/2021 TECHNIQUE AND FINDINGS: The procedure was discussed with the patient, along with associated risksand benefits. Informed consent was obtained. Prior to the start of theprocedure, a timeout was performed in which the patient's identity, site ofprocedure, and type of procedure was verified. The patient was placed in a right lateral decubitus position and a limited ultrasound of the left kidney was performed. An approach was chosen forbiopsy of the lower pole. The overlying skin was prepped and draped in the usual sterile fashion. Local anesthesia was obtained with 1% lidocaine.Conscious sedation was obtained using Fentanyl and Versed, with amounts listedbelow; the patient was monitored during sedation by a qualified radiologynurse. Medications administered as follows: Versed 0.5 mg, IV Fentanyl 25 mcg, IV An 18-gauge core needle biopsy system was used. A total of 3 passes weremade. Needle placement was documented with sonographic images. The sampleshanded to on-site pathology for analysis. The patient tolerated the procedure well without immediate complications,and was sent to recovery for post-procedure monitoring. Estimated blood loss: <5 mL COMPLICATIONS: None. IMPRESSION: Successful ultrasound guided random core biopsy of the lower pole of the left kidney. THIS IS AN ELECTRONICALLY VERIFIED FINAL REPORT 02/03/2021 10:24 AM - Electronically signed by Jimbo Manzanares M.D. T: Report ID: [id number] Reading Location: [id number] Kev Dey MD [facility] [place] PROCEDURES Edited R esult - Final * Surgical pathology (02/03/2021 9:31 AM CDT) Tissue (Kidney Biopsy, Medical) 02/03/2021 9:00 AM CDT Narrative PATHOLOGY [facility] - 02/10/2021 8:43 AM SENIOR BOILER OPERATOR [facility] Department of Pathology [address] [place] [address] ?? Note to Patients: ??This report may contain a detailed description of human tissue sent by a health care provider to the laboratory for pathologic evaluation. ??The content of this report is essential for diagnosis and may provide important critical findings. ??This information may be unfamiliar to patients to review without a medical professional present. ?? It is advised that the patient review this report in the presence of a health care provider who can answer questions and explain the details. Final Report Patient Name: DARLENE ISAAC : ??1950 (Age: 70) Gender: ??M Address: ??[address] [place] [address] ??[id number] [facility] #: [id number] Service: DEFAULT Location: Patient Type: [facility] ANCILLARY ? Taken: 02/03/2021 Received: 02/03/2021 Accessioned: 02/03/2021 Reported: 02/10/2021 Physician(s): MD Darlene Matthews M.D. Rashid A. Dalal, MD Diagnosis: Left kidney, percutaneous needle biopsy: - Diabetic nephropathy, RPS class IIb. 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 - Interstitial fibrosis and tubular atrophy, moderate. - Arteriolosclerosis, severe. Diagnosis Comment: Kidney biopsy diagnoses are rendered by [facility] Pathologists. ??Please refer to the full separate report from [facility]. Feroz Golden M.D. Report Electronically Reviewed and Signed Out By ??Feroz Golden M.D. 02/10/2021 08:43:58 Specimen(s) Received: A: Random left renal tissue Intraoperative Diagnosis: Left kidney, ultrasound-guided needle biopsy: Glomeruli present, adequate specimen. Reported to Dr. Manzanares at 9:[address] Golden. ??Feroz Golden M.D. ?? Microscopic Description: Kidney biopsy diagnoses are rendered in full by [facility] Pathologists. ??Please refer to the full separate report from [facility]. Clinical History: Monoclonal gammopathy US guided kidney biopsy Gross Description A) The specimen container is labeled with the patient's name and random left renal tissue . ??Received on multiple saline soaked Telfa pads are seven cylindrical pieces of soft villavicencio tissue which measures 0.1 cm in diameter and range in length from 0.2-1.1 cm. ??This tissue is placed in appropriate fixatives and sent to [facility] for processing and staining. dxbmhb/02/03/2021 09:43 ??BRITTA Bishop Result [facility] Kev eDy MD LAB PATHOLOGY ORDERABLES F inal Result Performing Organization Address [facility] Co de Phone Number PATHOLOGY [facility] * POCT glucose (02/03/2021 7:33 AM CDT) Glucose, POC 180 70 - 199 mg/dL ERIKA Blood 02/03/2021 7:33 AM CDT 02/03/2021 7:33 AM CDT Result [facility] Kev Dey MD LAB POCT ORDERABLES - FER CE Final Result Performing Organization Address [facility] de Phone Number [place] [phone] [facility] Department [place] [address] * aPTT (02/03/2021 7:31 AM CDT) aPTT 24 22 - 37 sec ERIKA Comment: Interpretive data aPTT test has not been evaluated for monitoring heparin therapy. The anti-Xa is the preferred test. Current interpretive data was last revised on 2019. Blood 02/03/2021 7:31 AM CDT 02/03/2021 7:33 AM CDT Result [facility] Kev Dey MD LAB BLOOD ORDERABLES Final Result Performing Organization Address [facility] Co de Phone Number [address] [place] [address] * Protime-INR (02/03/2021 7:31 AM CDT) [facility] PT 13.9 12.0 - 14.6 sec [facility] INR 1.1 [facility] Comment: Ref Range High Interpretive data Oral anticoagulant therapeutic ranges: Venous thromboembolism prophylaxis or treatment: 2.0-3.0 CARDIOLOGY Standard range: 2.0-3.0 High-intensity range: 2.5-3.5 Refer to indication-specific guidelines for appropriate target ranges for prosthetic heart valve replacement. Current interpretive data was last revised on 2019. Blood 02/03/2021 7:31 AM CDT 02/03/2021 7:33 AM CDT us Kev Dey MD LAB BLOOD ORDERABLES Final Result [address] [place] [address] * (ABNORMAL) CBC without differential (02/03/2021 7:31 AM CDT) [facility] WBC 7.2 3.8 - 9.9 K/cumm [facility] Hgb 11.1(L) 13.0 - 17.5 g/dL [facility] Hct 33.5(L) 38.9 - 50.3 % [facility] Plt 214 150 - 400 K/cumm [facility] MPV 11.0 9.1 - 12.3 fL [facility] RBC 3.67(L) 4.30 - 5.80 M/cumm [facility] MCV 91.3 81.3 - 96.4 fL [facility] MCH 30.2 27.1 - 33.3 pg [facility] MCHC 33.1 32.3 - 35.7 g/dL [facility] RDW CV 13.5 11.1 - 14.9 % [facility] RDW SD 45.1 35.7 - 48.1 fL [facility] NRBC abs 0.00 0.00 - 0.01 K/cumm [facility] Blood 02/03/2021 7:31 AM CDT 02/03/2021 7:33 AM CDT us Kev Dey MD LAB BLOOD ORDERABLES Final Result ERIKA MH [address] [facility] Department [place] [address] documented in this encounter Visit Diagnoses Diagnosis Monoclonal gammopathy Monoclonal paraproteinemia documented in this encounter Administered Medications Inactive Administered Medications - up to 3 most recent administrations Medication Order MAR Action Action Date Dose Rate Site fentaNYL (SUBLIMAZE) preservative free injection intravenous, Code/trauma/sedation medication, Starting on Mon02/03/21 at 0855 Given 02/03/2021 8:55 AM CDT 25 mcg Right Forearm lidocaine (XYLOCAINE) 10 mg/mL (1 %) injection 100 mg 100 mg (10 mL), subcutaneous, Once, On Mon02/03/21 at 0915, For 1 dose, Indications: Administration of Local AnesthesiaIndications:Adm inistration of Local Anesthesia Given by Other 02/03/2021 8:59 AM CDT 100 mg Other (Comment) midazolam (VERSED) 1 mg/mL preservative free injection intravenous, Administer over 2 Minutes, Code/trauma/sedation medication, Starting on Mon02/03/21 at 0856, Intra-Procedure (IR) Given 02/03/2021 8:56 AM CDT 0.5 mg Right Forearm documented in this encounter Historical Medications * This list may reflect changes made after this encounter. acetaminophen (TYLENOL) 500 mg tabletIndications :Arthritic Pain,Back Pain Take 2 tablets (1,000 mg total) by mouth nightly added in this encounter Orders Medications Ordered That Savage ht Not Have Been Administered Count Last Ordered Date First Ordered Date acetaminophen (TYLENOL) tablet 650 mg 1 06/2020 ondansetron (ZOFRAN) injection 4 mg 1 02/03 ondansetron ODT (ZOFRAN-ODT) disintegrating tablet 4 mg 1 02/03/2021 Discharge Count Last Ordered Date First Orde red Date DISCHARGE PATIENT 1 02/03/2021 documented in this encounter Care Teams Electronic Semiconductor Processor Relationship Specialty Start Date End Date Darlene Gardner MD [address] [place] [address] PCP - General 07/01/16 Kev Dey MD [address] [place], [place] [id number] Referring Physician Nephrology 05/10/19 Amelia Rodrigez DPM [address] [place] [id number] Consulting Physician Foot and Ankle Surg 06/28/19 documented as of this encounter
--- OUTSIDE RECORDS SUMMARY | 2024-04-15 05:59 | XMS_ITS | Encounter Summary ---
Author Organization [facility] Address [address] [address] Care Team Providers Care Financial Services Consultant Name Role Phone Erwin Gardner MD Primary Care Provide r Kev Dey MD Unavailable [phone] Amelia Rodrigez DPM Unavailable [phone] Meghan Cordero MD Unavailable [phone] Dennys Coates MD Unavailable [phone] Erwin Velasquez MD Unavailable [phone] Encounter Details Date Type Department Care Team (Latest Contact Info) Description 06/09/2021 Anticoagulation Visit [facility] Cardiology 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 Gender Identity Not on file Sexual Orientation Not on file documented as of this encounter Plan of Treatment Not on file documented as of this encounter Visit Diagnoses Diagnosis Atrial fibrillation, unspecified type (HCC)- Primary documented in this encounter Care Teams Financial Services Consultant Relationship Specialty Start Date End Date Erwin Gardner MD [address] [place] [address] PCP - General 07/01/16 Kev Dey MD [address] [place] [address] Referring Physician Nephrology 05/10/19 Amelia Rodrigez DPM [address] [facility] [place] [address] Consulting Physician Foot and Ankle Surg 06/28/19 Meghan Cordero MD [address] [facility] [address] [place] [address] Referring Physician Dermatology 06/02/21 Dennys Coates MD [address] [place] [address] [place] [address] Consulting Physician Dermatology 06/02/21 Erwin Velasquez MD [address] [facility] [address] [facility] [address] [place], [place] [id number] Consulting Physician Cardiology 06/02/21 documented as of this encounter
--- OUTSIDE RECORDS SUMMARY | 2024-04-15 05:59 | XMS_ITS | Encounter Summary ---
Author Organization [facility] Address [address] [address] Care Team Providers Care Mill Stenciler Name Role Phone Erwin Gardner MD Primary Care Provide r Kev Dey MD Unavailable [phone] Amelia RodrigezM Unavailable [phone] Encounter Details Date Type Department Care Team (Late st Contact Info) Description 08/19/2020 Telephone [facility] Cardiology [address] [facility] [address] [place] [address] Erwin Velasquez MD [address] [address] Social History Tobacco Use Types Packs/Day Years Used Date Smoking Tobacco: Never Smokeless Tobacco: Never Alcohol Use Standard Drinks/Week Comments No 0 (1 standard drink = 0.6 oz pur e alcohol) Sex and Gender Information Value Date Recorded Sex Assigned at Not on file Legal Sex Male 11:57 AM ASSEMBLER KNIFE Gender Identity Not on file Sexual Orientation Not on file documented as of this encounter Miscellaneous Notes * Telephone Encounter - Vicky Ugalde RN - 08/19/2020 2:03 PM CDT Standing order sent as requested * Telephone Encounter - Eden Mcnally - 08/19/2020 1:17 PM CDT Pt called for a new standing order for INR to be sent to [facility] on [address] documented in this encounter Plan of Treatment Scheduled Orders Name Type Priority Associated Diagnoses Orde r Schedule Protime-INR Lab Routine Atrial fibrillation, unspecified type (CMS/HCC) Chronic anticoagulation 52 Occurrences starting 08/19/2020 until 08/19/2021, 10 completed documented as of this encounter Procedures Procedure Name Priority Date/Time Associated Diagnosis Comments PROTIME-INR Routine 08/12/2021 8:14 AM CDT Atrial fibrillation, unspecified type (HCC) Chronic anticoagulation PROTIME-INR Routine 06/08/2021 6:13 AM ASSEMBLER KNIFE Atrial fibrillation, unspecified type (HCC) Chronic anticoagulation PROTIME-INR Routine 05/10/2021 8:35 AM ASSEMBLER KNIFE Atrial fibrillation, unspecified type (HCC) Chronic anticoagulation PROTIME-INR Routine 04/23/2021 12:50 PM ASSEMBLER KNIFE Atrial fibrillation, unspecified type (HCC) Chronic anticoagulation PROTIME-INR Routine 03/01/2021 6:22 AM ASSEMBLER KNIFE Atrial fibrillation, unspecified type (HCC) Chronic anticoagulation PROTIME-INR Routine 12/17/2020 8:10 AM CDT Atrial fibrillation, unspecified type (HCC) Chronic anticoagulation PROTIME-INR Routine 12/03/2020 6:10 AM CDT Atrial fibrillation, unspecified type (HCC) Chronic anticoagulation PROTIME-INR Routine 11/04/2020 10:12 AM CDT Atrial fibrillation, unspecified type (HCC) Chronic anticoagulation PROTIME-INR Routine 10/24/2020 8:44 AM CDT Atrial fibrillation, unspecified type (HCC) Chronic anticoagulation PROTIME-INR Routine 08/20/2020 6:42 AM CDT Atrial fibrillation, unspecified type (CMS/HCC) Chronic anticoagulation documented in this encounter Results * (ABNORMAL) Protime-INR (08/12/2021 8:14 AM CDT) INR 2.7(H) [facility] Comment: Reference Range ? 0.9-1.1 Moderate-intensity Warfarin Therapy 2.0-3.0 Higher-intensity Warfarin Therapy ?? 3.0-4.0 PT 25.6(H) 9.0 - 11.5 sec [facility] Comment: For additional information, please refer to http://CultureIQ.[email or web address]/faq/OHL686 (This link is being provided for informational/ educational purposes only.) Blood specimen (specimen) 08/12/2021 8:14 AM CDT 08/12/2021 8:15 AM CDT Erwin Velasquez MD LAB BLOOD ORDERABLES Fin al Result [facility] [address] [place] [address] * (ABNORMAL) Protime-INR (06/08/2021 6:13 AM ASSEMBLER KNIFE) INR 2.2(H) [facility] Comment: Reference Range ? 0.9-1.1 Moderate-intensity Warfarin Therapy 2.0-3.0 Higher-intensity Warfarin Therapy ?? 3.0-4.0 PT 21.5(H) 9.0 - 11.5 sec [facility] Comment: For additional information, please refer to http://CultureIQ.[email or web address]/faq/UYK024 (This link is being provided for informational/ educational purposes only.) Blood specimen (specimen) 06/08/2021 6:13 AM ASSEMBLER KNIFE 06/08/2021 6:14 AM ASSEMBLER KNIFE Erwin Velasquez MD LAB BLOOD ORDERABLES Fin al Result Performing Organization Address City/[facility] Co de Phone Number [facility] [address] [facility] [place] [address] * (ABNORMAL) Protime-INR (05/10/2021 8:35 AM ASSEMBLER KNIFE) INR 2.6(H) [facility] Comment: Reference Range ? 0.9-1.1 Moderate-intensity Warfarin Therapy 2.0-3.0 Higher-intensity Warfarin Therapy ?? 3.0-4.0 PT 24.5(H) 9.0 - 11.5 sec [facility] Comment: For additional information, please refer to http://CultureIQ.[email or web address]/faq/AJL266 (This link is being provided for informational/ educational purposes only.) Blood specimen (specimen) 05/10/2021 8:35 AM ASSEMBLER KNIFE 05/10/2021 8:36 AM ASSEMBLER KNIFE Erwin Velasquez MD LAB BLOOD ORDERABLES Fin al Result Performing Organization Address City/[facility]/ZIP Co de Phone Number [facility] [address] [place] [address] * (ABNORMAL) Protime-INR (04/23/2021 12:50 PM ASSEMBLER KNIFE) INR 1.7(H) [facility] Comment: Reference Range ? 0.9-1.1 Moderate-intensity Warfarin Therapy 2.0-3.0 Higher-intensity Warfarin Therapy ?? 3.0-4.0 PT 17.2(H) 9.0 - 11.5 sec [facility] Comment: For additional information, please refer to http://CultureIQ.[email or web address]/faq/QWF567 (This link is being provided for informational/ educational purposes only.) Blood specimen (specimen) 04/23/2021 12:50 PM ASSEMBLER KNIFE 04/23/2021 12:51 PM ASSEMBLER KNIFE Erwin Velasquez MD LAB BLOOD ORDERABLES Fin al Result [facility] [address] [facility] [place] [address] * (ABNORMAL) Protime-INR (03/01/2021 6:22 AM ASSEMBLER KNIFE) INR 2.3(H) [facility] Comment: Reference Range ? 0.9-1.1 Moderate-intensity Warfarin Therapy 2.0-3.0 Higher-intensity Warfarin Therapy ?? 3.0-4.0 PT 22.8(H) 9.0 - 11.5 sec [facility] Comment: For additional information, please refer to http://CultureIQ.[email or web address]/faq/DGL694 (This link is being provided for informational/ educational purposes only.) Blood specimen (specimen) 03/01/2021 6:22 AM ASSEMBLER KNIFE 03/01/2021 6:23 AM ASSEMBLER KNIFE us Erwin Velasquez MD LAB BLOOD ORDERABLES Fin al Result [facility] [address] [place] [address] * (ABNORMAL) Protime-INR (12/17/2020 8:10 AM CDT) INR 2.9(H) [facility] Comment: Reference Range ? 0.9-1.1 Moderate-intensity Warfarin Therapy 2.0-3.0 Higher-intensity Warfarin Therapy ?? 3.0-4.0 PT 28.1(H) 9.0 - 11.5 sec [facility] Comment: For additional information, please refer to http://WOWash/faq/YOH364 (This link is being provided for informational/ educational purposes only.) Blood specimen (specimen) 12/17/2020 8:10 AM CDT 12/17/2020 8:10 AM CDT Erwin Velasquez MD LAB BLOOD ORDERABLES Fin al Result Performing Organization Address [facility] de Phone Number [facility] [address] [place] [address] * (ABNORMAL) Protime-INR (12/03/2020 6:10 AM CDT) INR 4.4(H) [facility] Comment: Reference Range ? 0.9-1.1 Moderate-intensity Warfarin Therapy 2.0-3.0 Higher-intensity Warfarin Therapy ?? 3.0-4.0 PT 41.2(H) 9.0 - 11.5 sec [facility] Comment: For additional information, please refer to http://CultureIQ.[email or web address]/faq/BRP700 (This link is being provided for informational/ educational purposes only.) Blood specimen (specimen) 12/03/2020 6:10 AM CDT 12/03/2020 6:11 AM CDT Erwin Velasquez MD LAB BLOOD ORDERABLES Fin al Result Performing Organization Address [facility] de Phone Number [facility] [address] [place] [address] * (ABNORMAL) Protime-INR (11/04/2020 10:12 AM CDT) INR 2.3(H) [facility] Comment: Reference Range ? 0.9-1.1 Moderate-intensity Warfarin Therapy 2.0-3.0 Higher-intensity Warfarin Therapy ?? 3.0-4.0 PT 22.6(H) 9.0 - 11.5 sec [facility] Comment: For additional information, please refer to http://WOWash/faq/FDR377 (This link is being provided for informational/ educational purposes only.) Blood specimen (specimen) 11/04/2020 10:12 AM CDT 11/04/2020 10:13 AM CDT Erwin Velasquez MD LAB BLOOD ORDERABLES Fin al Result Performing Organization Address [facility] Co de Phone Number [facility] [address] [place] [address] * (ABNORMAL) Protime-INR (10/24/2020 8:44 AM CDT) INR 1.6(H) [facility] Comment: Reference Range ? 0.9-1.1 Moderate-intensity Warfarin Therapy 2.0-3.0 Higher-intensity Warfarin Therapy ?? 3.0-4.0 PT 16.1(H) 9.0 - 11.5 sec [facility] Comment: For additional information, please refer to http://WOWash/faq/ZCD236 (This link is being provided for informational/ educational purposes only.) Blood specimen (specimen) 10/24/2020 8:44 AM CDT 10/24/2020 8:45 AM CDT Narrative [facility] - 10/25/2020 9:21 AM CDT FASTING:YES FASTING: YES Erwin Velasquez MD LAB BLOOD ORDERABLES Fin al Result Performing Organization Address City/[facility]/ZIP Co de Phone Number [facility] [address] [address] * (ABNORMAL) Protime-INR (08/20/2020 6:42 AM CDT) INR 2.3(H) [facility] Comment: Reference Range ? 0.9-1.1 Moderate-intensity Warfarin Therapy 2.0-3.0 Higher-intensity Warfarin Therapy ?? 3.0-4.0 PT 22.2(H) 9.0 - 11.5 sec [facility] Comment: For additional information, please refer to http://education.Lanzaloya.com/faq/NAK490 (This link is being provided for informational/ educational purposes only.) Blood specimen (specimen) 08/20/2020 6:42 AM CDT 08/20/2020 6:42 AM CDT Erwin Velasquez MD LAB BLOOD ORDERABLES Fin al Result [facility] [address] [place] [address] documented in this encounter Visit Diagnoses Diagnosis Atrial fibrillation, unspecified type (HCC)- Primary Chronic anticoagulation Encounter for long-term (current) use of anticoagulants documented in this encounter Care Teams Mill Stenciler Relationship Specialty Start Date End Date Erwin Gardner MD [address] [place] [address] PCP - General 07/01/16 Kev Dey MD [address] [facility] [place] [address] Referring Physician Nephrology 05/10/19 Amelia Rodrigez DPM [address] [place] [address] Consulting Physician Foot and Ankle Surg 06/28/19 documented as of this encounter
--- OUTSIDE RECORDS SUMMARY | 2024-04-15 05:59 | XMS_ITS | Encounter Summary ---
Author Organization [facility] Address [address] [facility] [address] [place] [address] Care Team Providers Care Wireless Cellular Technician Name Role Phone Erwin Gardner MD Primary Care Provide r Kev Dey MD Unavailable [phone] Amelia RodrigezM Unavailable [phone] Encounter Details Date Type Department Care Team (Late st Contact Info) Description 02/08/[address] [facility] Cardiology [address] [facility] [address] [place] [address] Erwin Velasquez MD [address] [place] [address] [place] [address] Social History Tobacco Use Types [...] on file Legal Sex Male 11:57 AM UTILITY ARBORIST Gender Identity Not on file Sexual Orientation Not on file documented as of this encounter Miscellaneous Notes * Telephone Encounter - Vicky Ugalde RN - 02/08/2021 9:02 AM CST Spoke with pt, instructed pt that he should verify when to resume per his surgeon. Then resume at previous dosing and check inr in 1 week. Pt states he was to wait 5 days but he will double check with surgeon before resuming. ITY ARBORIST * Telephone Encounter - Celina Millan - 02/08/2021 8:46 AM UTILITY ARBORIST Pt has been off his warfarin since the 25 of January due to having a kidney biopsy. Pt wants to know what dosage of warfarin he should start with. cb [phone] ITY ARBORIST documented in this encounter Plan of Treatment Not on file documented as of this encounter Visit Diagnoses Not on filedocumented in this encounter Care Teams Wireless Cellular Technician Relationship Specialty Start Date End Date Erwin Gardner MD [address] [place] [address] PCP - General 07/01/16 Kev Dey MD [address] [place] [address] Referring Physician Nephrology 05/10/19 Amelia Rodrigez DPM [address] [place] [address] Consulting Physician Foot and Ankle Surg 06/28/19 documented as of this encounter
--- OUTSIDE RECORDS SUMMARY | 2024-04-15 05:59 | XMS_ITS | Encounter Summary ---
Author Organization [facility] Address [address] [place] [address] Phone Care Team Providers Care Manager Floor Name Role Phone Erwin Gardner MD Primary Care Provide r Kev Dey MD Unavailable [phone] Amelia RodrigezM Unavailable [phone] Meghan Cordero MD Unavailable [phone] Dennys Coates MD Unavailable [phone] Erwin Velasquez MD Unavailable [phone] Encounter Details Date Type Department Care Team (Late st Contact Info) Description 06/07/[address] [facility] Ophthalmology [address] [facility] 6th [place] [address] Renaldo Eisenberg MD [address] [facility] [address] [place] [address] Social History Tobacco Use Types Packs/Day Years [...] on file Legal Sex Male 11:57 AM ANALYTICAL TECH Gender Identity Not on file Sexual Orientation Not on file documented as of this encounter Plan of Treatment Not on file documented as of this encounter Visit Diagnoses Not on filedocumented in this encounter Care Teams Manager Floor Relationship Specialty Start Date End Date Erwin Gardner MD [address] [place] [address] PCP - General 07/01/16 Kev Dey MD [address] [place], [place] [address] Referring Physician Nephrology 05/10/19 Amelia Rodrigez DPM [address] [facility] [place] [address] Consulting Physician Foot and Ankle Surg 06/28/19 Meghan Cordero MD [address] [facility] [address] [place], [place] [id number] Referring Physician Dermatology 06/02/21 Dennys Coates MD [address] [place] [address] [place] [address] Consulting Physician Dermatology 06/02/21 Erwin Velasquez MD [address] [facility] [address] [place] [address] Consulting Physician Cardiology 06/02/21 documented as of this encounter
--- OUTSIDE RECORDS SUMMARY | 2024-04-15 05:59 | XMS_ITS | Encounter Summary ---
Author Organization [facility] Address [address] [facility] [address] [place] [address] Care Team Providers Care Head Librarian Name Role Phone Erwin Gardner MD Primary Care Provide r Kev Dey MD Unavailable [phone] Amelia Rodrigez DPM Unavailable [phone] Encounter Details Date Type Department Care Team (Latest Contact Info) Description 12/17/2020 Anticoagulation Visit [facility] Cardiology [address] [place] [address] Selena Starr RN Atrial fibrillation, unspecified type (HCC) (Primary Dx) Social History Tobacco Use Types Packs/Day Years Used Date Smoking Tobacco: Never Smokeless Tobacco: Never Alcohol Use Standard Drinks/Week Comments No 0 (1 standard drink = 0.6 oz pur e alcohol) Sex and Gender Information Value Date Recorded Sex Assigned at Not on file Legal Sex Male 11:57 AM REFRIGERATION SUPERVISOR Gender Identity Not on file Sexual Orientation Not on file documented as of this encounter Plan of Treatment Not on file documented as of this encounter Visit Diagnoses Diagnosis Atrial fibrillation, unspecified type (HCC)- Primary documented in this encounter Care Teams Head Librarian Relationship Specialty Start Date End Date Erwin Gardner MD [address] [place] [address] PCP - General 07/01/16 Kev Dey MD [address] [place] [address] Referring Physician Nephrology 05/10/19 Amelia Rodrigez DPM [address] [place] [address] Consulting Physician Foot and Ankle Surg 06/28/19 documented as of this encounter
--- OUTSIDE RECORDS SUMMARY | 2024-04-15 05:59 | XMS_ITS | Encounter Summary ---
Author Organization [facility] Address [address] [facility] [address] [place] [address] Care Team Providers Care Representative Name Role Phone Erwin Gardner MD Primary Care Provide r Kev Dey MD Unavailable [phone] Amelia Rodrigez DPM Unavailable [phone] Encounter Details Date Type Department Care Team (Latest Contact Info) Description 11/05/2020 Anticoagulation Visit [facility] Cardiology [address] [place] [address] Lillian Gallo, RN Atrial fibrillation, unspecified type (HCC) (Primary Dx) Social History Tobacco Use Types Packs/Day Years Used Date Smoking Tobacco: Never Smokeless Tobacco: Never Alcohol Use Standard Drinks/Week Comments No 0 (1 standard drink = 0.6 oz pur e alcohol) Sex and Gender Information Value Date Recorded Sex Assigned at Not on file Legal Sex Male 11:57 AM TOWER EQUIPMENT REPAIRER Gender Identity Not on file Sexual Orientation Not on file documented as of this encounter Plan of Treatment Not on file documented as of this encounter Visit Diagnoses Diagnosis Atrial fibrillation, unspecified type (HCC)- Primary documented in this encounter Care Teams Representative Relationship Specialty Start Date End Date Erwin Gardner MD [address] [place] [address] PCP - General 07/01/16 Kev Dey MD [address] [place] [address] Referring Physician Nephrology 05/10/19 Amelia Rodrigez DPM [address] [place] [address] Consulting Physician Foot and Ankle Surg 06/28/19 documented as of this encounter
--- OUTSIDE RECORDS SUMMARY | 2024-04-15 05:59 | XMS_ITS | Encounter Summary ---
Author Organization [facility] Address [address] [facility] [address] [place] [address] Care Team Providers Care Cruise Counselor Name Role Phone Erwin Gardner MD Primary Care Provide r Kev Dey MD Unavailable [phone] Amelia Rodrigez DPM Unavailable [phone] Reason for Visit * Reason Comments Cardiomyopathy 6 month fu * Consultation (Routine) - Closed Specialty Diagnoses / Procedures Referred By Contac t Referred To Contact Cardiology Diagnoses Primary cardiomyopathy (HCC) Permanent atrial fibrillation (CMS/HCC) (HCC) Erwin Gardner MD [address] [place] [address] Phone: tel: fax: [facility] Cardiology [address] [place] [address] Phone: tel: fax: Referral ID Status Reason Start Date Expiration Date V isits Requested Visits Authorized [id number] Closed Specialty Services Required 05/13/2021 11/10/2021 6 6 Encounter Details Date Type Department Care Team (Latest Contact Info) Description 05/13/2021 8:15 AM ASSEMBLER TRUCK TRAILER Office Visit [facility] Cardiology [address] [place] [address] Erwin Velasquez MD [address] [address] Cardiomyopathy, idiopathic (CMS/HCC) (HCC) (Primary Dx); Primary cardiomyopathy (CMS/HCC) (HCC); Permanent atrial fibrillation (CMS/HCC) (HCC) Social History [...] file Legal Sex Male 11:57 AM ASSEMBLER TRUCK TRAILER Gender Identity Not on file Sexual Orientation Not on file documented as of this encounter Last Filed Vital Signs Vital Sign Reading Time Taken Comments Blood Pressure 104/58 05/13/2021 8:12 AM ASSEMBLER TRUCK TRAILER Pulse 90 05/13/2021 8:12 AM ASSEMBLER TRUCK TRAILER Temperature - - Respiratory Rate - - Oxygen Saturation 96% 05/13/2021 8:12 AM ASSEMBLER TRUCK TRAILER Inhaled Oxygen Concentration - - Weight 144.2 kg (318 lb) 05/13/2021 8:12 AM ASSEMBLER TRUCK TRAILER Height 190.5 cm (6' 3 ) 05/13/2021 8:12 AM ASSEMBLER TRUCK TRAILER Body Mass Index 39.75 05/13/2021 8:12 AM ASSEMBLER TRUCK TRAILER documented in this encounter Progress Notes * Erwin Velasquez MD - 05/13/2021 8:15 AM CST [facility] FOLLOW UP 05/13/2021 Erwin Fuentes Poncho is a 71 y.o. [...] he has been anticoagulated and rate controlled. Patient presents today for scheduled six-month office appointment. He seems to be doing well and does not describe any cardiac symptoms. He did have a renal biopsy in February of 2021 which demonstrated evidence of diabetic nephrosclerosis. He has stage 3 chronic kidney disease. REVIEW OF SYSTEMS General ROS: negative for [...] Disp: 135 tablet, Rfl: 1 ??? insulin regular (HumuLIN R, NovoLIN R) [...] DAY, Disp: 90 tablet, Rfl: 0 ??? ULTICARE 1 mL 30 gauge x 1/2 syringe, , Disp: , Rfl: ??? warfarin (COUMADIN) 2.5 mg tablet, Take 2.5 mg by mouth 2 (two) times a week, Disp: , Rfl: ??? warfarin (COUMADIN) 5 mg tablet, TAKE 1 TABLET BY MOUTH EVERY DAY, Disp: 90 tablet, Rfl: 1 LABS AND OTHER DIAGNOSTIC TESTS No results [...] for this visit: Cardiomyopathy, idiopathic (CMS/HCC) (HCC) Primary cardiomyopathy (CMS/HCC) (HCC) - Ambulatory referral to Cardiology Permanent atrial fibrillation (CMS/HCC) (HCC) - Ambulatory referral to Cardiology PLAN/RECOMMENDATIONS Continue current rate control and anticoagulation strategy Follow-up at 6 month intervals Erwin Velasquez MD MBLER TRUCK TRAILER documented in this encounter Plan of Treatment Not on file documented as of this encounter Visit Diagnoses Diagnosis Cardiomyopathy, idiopathic (HCC)- Primary Other primary cardiomyopathies Primary cardiomyopathy (HCC) Other primary cardiomyopathies Permanent atrial fibrillation (CMS/HCC) (HCC) Atrial fibrillation documented in this encounter Orders Outpatient Referral Count Last Ordered Date Fir st Ordered Date AMB REFERRAL TO CARDIOLOGY 1 05/13/2021 documented in this encounter Care Teams Cruise Counselor Relationship Specialty Start Date End Date Erwin Gardner MD [address] [place] [address] PCP - General 07/01/16 Kev Dey MD [address] [place] [address] Referring Physician Nephrology 05/10/19 Amelia Rodrigez DPM [address] [place] [address] Consulting Physician Foot and Ankle Surg 06/28/19 documented as of this encounter
--- OUTSIDE RECORDS SUMMARY | 2024-04-15 05:59 | XMS_ITS | Encounter Summary ---
Author Organization [facility] Address [address] [address] Care Team Providers Care Lpn Or Medical Assistant Name Role Phone Erwin Gardner MD Primary Care Provide r Kev Dey MD Unavailable [phone] Amelia Rodrigez DPM Unavailable [phone] Encounter Details Date Type Department Care Team (Latest Contact Info) Description 10/26/2020 Anticoagulation Visit [facility] Cardiology [address] [address] Zabrina Joyce RN Atrial fibrillation, unspecified type (HCC) (Primary Dx) Social History Tobacco Use Types Packs/Day Years Used Date Smoking Tobacco: Never Smokeless Tobacco: Never Alcohol Use Standard Drinks/Week Comments No 0 (1 standard drink = 0.6 oz pur e alcohol) Sex and Gender Information Value Date Recorded Sex Assigned at Not on file Legal Sex Male 11:57 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 Gender Identity Not on file Sexual Orientation Not on file documented as of this encounter Plan of Treatment Not on file documented as of this encounter Visit Diagnoses Diagnosis Atrial fibrillation, unspecified type (HCC)- Primary documented in this encounter Care Teams Lpn Or Medical Assistant Relationship Specialty Start Date End Date Erwin Gardner MD [address] [place] [address] PCP - General 07/01/16 Kev Dey MD [address] [place] [address] Referring Physician Nephrology 05/10/19 Amelia Rodrigez DPM [address] [place] [address] Consulting Physician Foot and Ankle Surg 06/28/19 documented as of this encounter
--- OUTSIDE RECORDS SUMMARY | 2024-04-15 05:59 | XMS_ITS | Encounter Summary ---
Author Organization [facility] Address [address] [place] [address] Phone Care Team Providers Care Rattlesnake Farmer Name Role Phone Erwin Gardner MD Primary Care Provide r Kev Dey MD Unavailable [phone] Amelia RodrigezM Unavailable [phone] Encounter Details Date Type Department Care Team (Late st Contact Info) Description 05/28/2021 Telephone [facility] Ophthalmology [address] [facility] 6th [place] [address] Renaldo Eisenberg MD [address] [place] [address] 6 [place] [address] Social History Tobacco Use Types [...] on file Legal Sex Male 11:57 AM HATCHERY EMPLOYEE Gender Identity Not on file Sexual Orientation Not on file documented as of this encounter Miscellaneous Notes * Telephone Encounter - Marissa Matthews B.A. - 05/28/2021 1:42 PM HATCHERY EMPLOYEE Spoke with pt being referred by DR. Villalta [facility]. Patient has no h/o skin cancer. Meghan Jackson did his biopsy. He is on Warfarin and does see a kidney specialist for kidney failure. Moving forward he does want same day MOHS. Confirmed 06/02 @ 8 am [facility]. HERY EMPLOYEE documented in this encounter Plan of Treatment Not on file documented as of this encounter Visit Diagnoses Not on filedocumented in this encounter Care Teams Rattlesnake Farmer Relationship Specialty Start Date End Date Erwin Gardner MD [address] [place] [address] PCP - General 07/01/16 Kev Dey MD [address] [facility] [address] Referring Physician Nephrology 05/10/19 Amelia Rodrigez DPM [address] [place] [address] Consulting Physician Foot and Ankle Surg 06/28/19 documented as of this encounter
--- OUTSIDE RECORDS SUMMARY | 2024-04-15 05:59 | XMS_ITS | Encounter Summary ---
Author Organization [facility] Address [address] [place] [address] Phone Care Team Providers Care Silk Washing Machine Operator Name Role Phone Erwin Gardner MD Primary Care Provide r Kev Dey MD Unavailable [phone] Amelia RodrigezM Unavailable [phone] Meghan Cordero MD Unavailable [phone] Dennys Coates MD Unavailable [phone] Erwin Velasquez MD Unavailable [phone] Encounter Details Date Type Department Care Team (Late st Contact Info) Description 06/07/2021 Documentation [facility] Ophthalmology 49[address] [facility] 6th [place] [address] Marissa Yepez, B.A. 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 - 06/07/2021 11:51 AM CST Faxed a second request to Dr. Velasquez regarding approval to hold Warfarin 2-3 days prior to surgery. S TRAINING MANAGER documented in this encounter Plan of Treatment Not on file documented as of this encounter Visit Diagnoses Not on filedocumented in this encounter Care Teams Silk Washing Machine Operator Relationship Specialty Start Date End Date Erwin Gardner MD [address] [place] [address] PCP - General 07/01/16 Kev Dey MD [address] [place] [address] Referring Physician Nephrology 05/10/19 Amelia Rodrigez DPM [address] [place] [address] Consulting Physician Foot and Ankle Surg 06/28/19 Meghan Cordero MD [address] [place] [address] Referring Physician Dermatology 06/02/21 Dennys Coates MD [address] [place] [address] [place] [address] Consulting Physician Dermatology 06/02/21 Erwin Velasquez MD [address] [place] [address] Consulting Physician Cardiology 06/02/21 documented as of this encounter
--- OUTSIDE RECORDS SUMMARY | 2024-04-15 05:59 | XMS_ITS | Encounter Summary ---
Author Organization [facility] Address [address] [place] [address] Phone Care Team Providers Care Plant Operations Engineer Name Role Phone Erwin Gardner MD Primary Care Provide r Kev Dey MD Unavailable [phone] Amelia RodrigezM Unavailable [phone] Meghan Cordero MD Unavailable [phone] Dennys Coates MD Unavailable [phone] Erwin Velasquez MD Unavailable [phone] Encounter Details Date Type Department Care Team (Late st Contact Info) Description 06/07/2021 Documentation [facility] Ophthalmology [address] [facility] 6th [place] [address] Marissa Yepez, B.A. 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 - 06/07/2021 12:02 PM CST MAILED SX PACKET D INVESTIGATOR documented in this encounter Plan of Treatment Not on file documented as of this encounter Visit Diagnoses Not on filedocumented in this encounter Care Teams Plant Operations Engineer Relationship Specialty Start Date End Date Erwin Gardner MD [address] [place], [place] [address] PCP - General 07/01/16 Kev Dey MD [address] [place], [place] [address] Referring Physician Nephrology 05/10/19 Amelia Rodrigez DPM [address] [place] [address] Consulting Physician Foot and Ankle Surg 06/28/19 Meghan Cordero MD [address] [facility] [address] [place] [address] Referring Physician Dermatology 06/02/21 Dennys Co[address] MD [address] [facility] [place] [address] Consulting Physician Dermatology 06/02/21 Erwin Velasquez MD [address] [facility] [address] [address] Consulting Physician Cardiology 06/02/21 documented as of this encounter
--- OUTSIDE RECORDS SUMMARY | 2024-04-15 05:59 | XMS_ITS | Encounter Summary ---
Author Organization [facility] Address [address] [place] [address] Care Team Providers Care Trim Carpenter Name Role Phone Erwin Gardner MD Primary Care Provide r Kev Dey MD Unavailable [phone] Amelia RodrigezM Unavailable [phone] Meghan Cordero MD Unavailable [phone] Dennys Coates MD Unavailable [phone] Erwin Velasquez MD Unavailable [phone] Encounter Details Date Type Department Care Team (Late st Contact Info) Description 07/03/2021 11:20 AM CDT [address] [address] Renaldo Eisenberg MD [address] [address] Pre-operative laboratory examination Discharge Disposition: Discharge to home or self [...] on file 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 Gender Identity Not on file Sexual Orientation Not on file documented as of this encounter Discharge Disposition Disposition Code Departure Means Destination Discharge to home or self care documented in this encounter Plan of Treatment Not on file documented as of this encounter Procedures Procedure Name Priority Date/Time Associated Diagnosis Comments COVID-19 CORONAVIRUS RNA Routine 07/03/2021 11:21 AM CDT Pre-operative laboratory examination documented in this encounter Results * COVID-19 Coronavirus RNA Nasopharyngeal (07/03/2021 11:21 AM CDT) COVID-19 RNA Not Detected VINCENZO RODRIGUEZ (DEAN) Comment: Interpretive Data Synonyms for this test include: PCR and NAAT . ??Testing performed by the [facility] Molecular Infectious Disease Laboratory. The 2018-Novel Coronavirus Assay (COVID-19) Real Time RT-PCR assay is for in vitro diagnostic use under FDA emergency use authorization only. A negative RT-PCR result does not preclude infection with COVID-19 and should not be used as the sole basis for treatment or other patient management decisions. ??Additional sample types have been validated according to CLIA regulations. ?? Current Interpretive Data was last revised on May 07, 2020. Testing performed by: [facility], [address] [place] [address], [place]., [address] First COVID-19 test? No [facility] (DEAN) Comment:Testing performed by : [facility], [address] [place] [address]., [address] Employeed in healthcare? Unknown [facility] (DEAN) Comment:Testing performed by : [facility], [address] [place]., [address] Group care resident? No [facility] (DEAN) Comment:Testing performed by : [facility], [address] [place] [address]., [address] Hospitalized? Unknown [facility] (DEAN) Comment:Testing performed by : [facility], [address] [place]., [address] Is patient in ICU? Unknown ERIKA RODRIGUEZ (DEAN) Comment:Testing performed by : [facility], 1 [facility], [address] Symptomatic as defined by CDC? No ERIKA RODRIGUEZ (DEAN) Comment:Testing performed by : [facility], 1 [facility], [address] Nasopharyngeal 07/03/2021 11 :21 AM CDT 07/03/2021 5:51 PM CDT Narrative ERIKA RODRIGUEZ (DEAN) - 07/04/2021 2:21 AM CDT What is the reason for testing?->Screening prior to scheduled??procedure or surgery??(Batched) Renaldo Eisenberg MD LAB MICROBIOLOGY - GENERAL O RDERABLES Final Result ERIKA RODRIGUEZ (DEAN) 1 [facility] Department [place] [address] documented in this encounter Visit Diagnoses Diagnosis Pre-operative laboratory examination Pre-procedural laboratory examination documented in this encounter Care Teams Trim Carpenter Relationship Specialty Start Date End Date Erwin Gardner MD [address] [place] [address] PCP - General 07/01/16 Kev Dey MD [address] [place] [address] Referring Physician Nephrology 05/10/19 Amelia Rodrigez DPM [address] [place] [address] Consulting Physician Foot and Ankle Surg 06/28/19 Meghan Cordero MD [address] [place] [address] Referring Physician Dermatology 06/02/21 Dennys Coates MD [address] [place] [address] [place] [address] Consulting Physician Dermatology 06/02/21 Erwin Velasquez MD [address] [place], [place] [address] Consulting Physician Cardiology 06/02/21 documented as of this encounter
--- OUTSIDE RECORDS SUMMARY | 2024-04-15 05:59 | XMS_ITS | Encounter Summary ---
Author Organization [facility] Address [address] [facility] [address] [place] [address] Care Team Providers Care Staff Field Engineer Name Role Phone Erwin Gardner MD Primary Care Provide r Kev Dey MD Unavailable [phone] Amelia Rodrigez DPM Unavailable [phone] Encounter Details Date Type Department Care Team (Latest Contact Info) Description 05/11/2021 Anticoagulation Visit [facility] Cardiology [address] [place] [address] Janell Sarmiento, RN Atrial fibrillation, unspecified type [...] on file 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 Gender Identity Not on file Sexual Orientation Not on file documented as of this encounter Plan of Treatment Not on file documented as of this encounter Visit Diagnoses Diagnosis Atrial fibrillation, unspecified type (HCC)- Primary documented in this encounter Care Teams Staff Field Engineer Relationship Specialty Start Date End Date Erwin Gardner MD [address] [place] [address] PCP - General 07/01/16 Kev Dey MD [address] [place] [address] Referring Physician Nephrology 05/10/19 Amelia Rodrigez DPM [address] [place] [address] Consulting Physician Foot and Ankle Surg 06/28/19 documented as of this encounter
--- OUTSIDE RECORDS SUMMARY | 2024-04-15 05:59 | XMS_ITS | Encounter Summary ---
Author Organization [facility] Address [address] [place] [address] Phone Care Team Providers Care Termite Exterminator Name Role Phone Erwin Gardner MD Primary Care Provide r Kev Dey MD Unavailable [phone] Amelia Rodrigez DPM Unavailable [phone] Meghan Cordero MD Unavailable [phone] Dennys Coates MD Unavailable [phone] Erwin Velasquez MD Unavailable [phone] Encounter Details Date Type Department Care Team (Late st Contact Info) Description 06/03/2021 Orders Only [facility] Ophthalmology [address] [facility] Outpatient Health 6th [place] [address] Renaldo Eisenberg MD [address] [facility] 6 [place] [address] Social History Tobacco Use Types [...] on file 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 Gender Identity Not on file Sexual Orientation Not on file documented as of this encounter Plan of Treatment Not on file documented as of this encounter Visit Diagnoses Not on filedocumented in this encounter Care Teams Termite Exterminator Relationship Specialty Start Date End Date Erwin Gardner MD [address] [place] [address] PCP - General 07/01/16 Kev Dey MD [address] [place], [place] [address] Referring Physician Nephrology 05/10/19 Amelia Rodrigez DPM [address] [facility] [place] [address] Consulting Physician Foot and Ankle Surg 06/28/19 Meghan Cordero MD [address] [facility] [address] [place], [place] [address] Referring Physician Dermatology 06/02/21 Dennys Coates MD [address] [place] [address] [place] [address] Consulting Physician Dermatology 06/02/21 Erwin Velasquez MD [address] [facility] 102 [place] [address] Consulting Physician Cardiology 06/02/21 documented as of this encounter
--- OUTSIDE RECORDS SUMMARY | 2024-04-15 05:59 | XMS_ITS | Encounter Summary ---
Author Organization [facility] Address [address] [facility] [address] [place] [address] Care Team Providers Care Electrical Software Engineer Name Role Phone Erwin Gardner MD Primary Care Provide r Kev Dey MD Unavailable [phone] Amelia Rodrigez DPM Unavailable [phone] Encounter Details Date Type Department Care Team (Latest Contact Info) Description 12/03/2020 Anticoagulation Visit [facility] Cardiology [address] [place] [address] Lillian Gallo, RN Atrial fibrillation, unspecified type (HCC) (Primary Dx) Social History Tobacco Use Types Packs/Day Years Used Date Smoking Tobacco: Never Smokeless Tobacco: Never Alcohol Use Standard Drinks/Week Comments No 0 (1 standard drink = 0.6 oz pur e alcohol) Sex and Gender Information Value Date Recorded Sex Assigned at Not on file 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 Gender Identity Not on file Sexual Orientation Not on file documented as of this encounter Plan of Treatment Not on file documented as of this encounter Visit Diagnoses Diagnosis Atrial fibrillation, unspecified type (HCC)- Primary documented in this encounter Care Teams Electrical Software Engineer Relationship Specialty Start Date End Date Erwin Gardner MD [address] [place] [address] PCP - General 07/01/16 Kev Dey MD [address] [place] [address] Referring Physician Nephrology 05/10/19 Amelia Rodrigez DPM [address] [place] [address] Consulting Physician Foot and Ankle Surg 06/28/19 documented as of this encounter
--- OUTSIDE RECORDS SUMMARY | 2024-04-15 05:59 | XMS_ITS | Encounter Summary ---
Author Organization [facility] Address [address] [facility] [address] [place] [address] Care Team Providers Care Product Responsibility Liaison Name Role Phone Erwin Gardner MD Primary Care Provide r Kev Dey MD Unavailable [phone] Amelia RodrigezM Unavailable [phone] Meghan Cordero MD Unavailable [phone] Dennys Coates MD Unavailable [phone] Erwin Velasquez MD Unavailable [phone] Encounter Details Date Type Department Care Team (Late st Contact Info) Description 07/02/[address] 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 Class: Internal Referral Ordering User: Marissa Matthews B.A. Auth Provider: RENALDO EISENBERG Provider: Renaldo Eisenberg MD Diagnosis: ?? Department: [facility] [place] [facility] 6 Sched Instruct: ?? Comment: ?? Order Specific Questions Question Answer Comment Testing type: Pre-procedure ?? Date of Procedure/Chemo/Treatment 07/06/2021 ?? Testing site patient will be sent to: [facility], [place] ?? Date testing requested: 07/03/2021 ?? Testing: COVID-19 RNA ?? Does the patient currently work in a healthcare facility with direct patient contact? No ?? Is the patient a resident of a congregate care or living setting? No ?? Please select the performing region: [facility] documented in this encounter Plan of Treatment Not on file documented as of this encounter Results * COVID-19 Coronavirus RNA Nasopharyngeal (07/03/2021 11:21 AM CDT) COVID-19 RNA Not Detected [facility] (BLUFF) Comment: Interpretive Data Synonyms for this test include: PCR and NAAT . ??Testing performed by the [facility] Molecular Infectious Disease Laboratory. The 2019-Novel Coronavirus Assay (COVID-19) Real Time RT-PCR assay [...] on May 07, 2020. Testing performed by: [facility], 1 [place]., [address] First COVID-19 test? No ERIKA RODRIGUEZ (DEAN) Comment:Testing performed by : [facility], 1 [facility], [address] Employeed in healthcare? Unknown ERIKA RODRIGUEZ (DEAN) Comment:Testing performed by : [facility], 1 [facility], [address] Group care resident? No ERIKA RODRIGUEZ (DEAN) Comment:Testing performed by : [facility], 1 [facility], [address] Hospitalized? Unknown ERIKA RODRIGUEZ (DEAN) Comment:Testing performed by : [facility], 1 [facility], [address] Is patient in ICU? Unknown ERIKA RODRIGUEZ (DEAN) Comment:Testing performed by : [facility], 1 [facility], [address] Symptomatic as defined by CDC? No ERIKA RODRIGUEZ (DEAN) Comment:Testing performed by : [facility], [address] [place] [address], [address] Nasopharyngeal 07/03/2021 11 :21 AM CDT 07/03/2021 5:51 PM CDT Narrative ERIKA RODRIGUEZ (DEAN) - 07/04/2021 2:21 AM CDT What is the reason for testing?->Screening prior to scheduled??procedure or surgery??(Batched) us Renaldo Eisenberg MD LAB MICROBIOLOGY - GENERAL O RDERABLES Final Result REIKA RODRIGUEZ (DEAN) 1 [facility] [place] [address] documented in this encounter Visit Diagnoses Diagnosis Pre-operative laboratory examination- Primary Pre-procedural laboratory examination Pre-operative laboratory examination Pre-procedural laboratory examination documented in this encounter Care Teams Product Responsibility Liaison Relationship Specialty Start Date End Date Erwin Gardner MD [address] [place], [place] [address] PCP - General 07/01/16 Kev Dey MD [address] [place] [address] Referring Physician Nephrology 05/10/19 Amelia Rodrigez, DPM [address] [facility] [place] [address] Consulting Physician Foot and Ankle Surg 06/28/19 Meghan Cordero MD [address] [place] [address] Referring Physician Dermatology 06/02/21 Dennys Coates MD [address] [place] [address] [place] [address] Consulting Physician Dermatology 06/02/21 Erwin Velasquez MD [address] [place], [place] [address] Consulting Physician Cardiology 06/02/21 documented as of this encounter
--- OUTSIDE RECORDS SUMMARY | 2024-04-15 06:00 | XMS_ITS | Encounter Summary ---
Author Organization [facility] Address [address] [facility] [address] [place] [address] Care Team Providers Care Naval Marine Engineer Name Role Phone Erwin Gardner MD Primary Care Provide r Kev Dey MD Unavailable [phone] Amelia Rodrigez DPM Unavailable [phone] Encounter Details Date Type Department Care Team (Latest Contact Info) Description 04/29/2020 Anticoagulation Visit [facility] Cardiology [address] [place] [address] Lillian Gallo, RN Atrial fibrillation, unspecified type (CMS/HCC) Social History Tobacco Use Types Packs/Day Years Used Date Smoking Tobacco: Never Smokeless Tobacco: Never Alcohol Use Standard Drinks/Week Comments No 0 (1 standard drink = 0.6 oz pur e alcohol) Sex and Gender Information Value Date Recorded Sex Assigned at Not on file 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 Gender Identity Not on file Sexual Orientation Not on file documented as of this encounter Plan of Treatment Not on file documented as of this encounter Visit Diagnoses Diagnosis Atrial fibrillation, unspecified type (HCC) documented in this encounter Care Teams Naval Marine Engineer Relationship Specialty Start Date End Date Erwin Gardner MD [address] [place] [address] PCP - General 07/01/16 Kev Dey MD [address] [place] [address] Referring Physician Nephrology 05/10/19 Amelia Rodrigez DPM [address] [place] [address] Consulting Physician Foot and Ankle Surg 06/28/19 documented as of this encounter
--- OUTSIDE RECORDS SUMMARY | 2024-04-15 06:00 | XMS_ITS | Encounter Summary ---
Author Organization [facility] Address [address] [place] [address] Care Team Providers Care Acidizer Name Role Phone Erwin Gardner MD Primary Care Provide r Kev Dey MD Unavailable [phone] Amelia Rodrigez DPM Unavailable [phone] Encounter Details Date Type Department Care Team (Latest Contact Info) Description 10/07/2019 Anticoagulation Visit [facility] Cardiology [address] [place] [address] Lillian Gallo, RN Atrial fibrillation (CMS/HCC) Social History Tobacco Use Types Packs/Day Years Used Date Smoking Tobacco: Never Smokeless Tobacco: Never Alcohol Use Standard Drinks/Week Comments No 0 (1 standard drink = 0.6 oz pur e alcohol) Sex and Gender Information Value Date Recorded Sex Assigned at Not on file 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 Gender Identity Not on file Sexual Orientation Not on file documented as of this encounter Plan of Treatment Not on file documented as of this encounter Visit Diagnoses Diagnosis Atrial fibrillation (CMS/HCC) (HCC) Atrial fibrillation documented in this encounter Care Teams Acidizer Relationship Specialty Start Date End Date Erwin Gardner MD [address] [place] [address] PCP - General 07/01/16 Kev Dey MD [address] [place] [address] Referring Physician Nephrology 05/10/19 Amelia Rodrigez DPM [address] [place] [address] Consulting Physician Foot and Ankle Surg 06/28/19 documented as of this encounter
--- OUTSIDE RECORDS SUMMARY | 2024-04-15 06:00 | XMS_ITS | Encounter Summary ---
Author Organization [facility] Address [address] [place] [address] Care Team Providers Care Wash Worker Name Role Phone Erwin Gardner MD Primary Care Provide r Kev Dey MD Unavailable [phone] Amelia Rodrigez DPM Unavailable [phone] Encounter Details Date Type Department Care Team (Latest Contact Info) Description 07/11/2019 2:08 PM CDT - 07/11/2019 11:59 PM CDT Hospital Encounter [facility] [address] [place] [address] Amelia Rodrigez, DPM [place] [address] Discharge Disposition: Discharge to home or self care Social History Tobacco Use Types Packs/Day Years Used Date Smoking Tobacco: Never Smokeless Tobacco: Never Alcohol Use Standard Drinks/Week Comments No 0 (1 standard drink = 0.6 oz pur e alcohol) Sex and Gender Information Value Date Recorded Sex Assigned at Not on file 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 No / Unsure 06/26/2019 9:10 AM CDT documented as of this encounter Medications at [...] total) by mouth daily 90 tablet 3 10/22/2018 0 carvediloL (COREG) 25 mg tabletIndications: hypertension Take 12.5 mg by mouth 2 (two) times a day with meals 2 fenofibrate (TRIGLIDE) 160 mg tablet Take 1 tablet (160 mg total) by mouth daily 90 tablet 3 04/23/2019 1 furosemide (LASIX) 80 mg tablet Take 1.5 tablets (120 mg total) by mouth daily 135 tablet 3 05/29/2019 1 HYDROcodone-acetam inophen (NORCO) 5-325 mg per tabletIndications: Pain Take 1 tablet by mouth every 4 (four) hours as needed for pain 20 tablet 06/28/2019 1 HYDROcodone-acetam inophen (NORCO) 5-325 mg per tabletIndications: Pain Take 1 tablet by mouth every 4 (four) hours as needed for pain 20 tablet 06/28/2019 1 losartan (COZAAR) 50 mg tablet Take 1 tablet (50 mg total) by mouth daily 90 tablet 3 05/10/2019 1 potassium chloride ER (potassium chloride ER) 20 mEq CR tablet Take 1 tablet (20 mEq total) by mouth daily 90 tablet 3 05/29/2019 1 spironolactone (ALDACTONE) 50 mg tablet Take 1 tablet (50 mg total) by mouth daily. 90 tablet 3 05/30/2018 0 warfarin (COUMADIN) 5 mg tablet Take 5 mg by mouth 5 (five) times a week 0 documented as of this encounter Discharge Disposition Disposition Code Departure Means Destination Discharge to home or self care documented in this encounter Plan of Treatment Not on file documented as of this encounter Visit Diagnoses Not on filedocumented in this encounter Care Teams Wash Worker Relationship Specialty Start Date End Date Erwin Gardner MD [address] [place] [address] PCP - General 07/01/16 Kev Dey MD [address] [place] [address] Referring Physician Nephrology 05/10/19 Amelia Rodrigez DPM [address] [place] [address] Consulting Physician Foot and Ankle Surg 06/28/19 documented as of this encounter
--- OUTSIDE RECORDS SUMMARY | 2024-04-15 06:00 | XMS_ITS | Encounter Summary ---
Author Organization [facility] Address [address] [place] [address] Care Team Providers Care Cell Preparer Name Role Phone Erwin Gardner MD Primary Care Provide r Kev Dey MD Unavailable [phone] Amelia RodrigezM Unavailable [phone] Encounter Details Date Type Department Care Team (Late st Contact Info) Description 07/10/2019 Telephone [facility] Cardiology [address] [place] [address] Erwin Velasquez MD [address] [place] [address] Social History Tobacco Use Types Packs/Day Years Used Date Smoking Tobacco: Never Smokeless Tobacco: Never Alcohol Use Standard Drinks/Week Comments No 0 (1 standard drink = 0.6 oz pur e alcohol) Sex and Gender Information Value Date Recorded Sex Assigned at Not on file 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 No / Unsure 06/26/2019 9:10 AM CDT documented as of this encounter Miscellaneous Notes * Telephone Encounter - Lillian Gallo RN - 07/10/2019 8:28 AM CDT Spoke with pt, new order for INR checks sent to [facility]. * Telephone Encounter - Jaen Vallejo - 07/10/2019 8:07 AM CDT Pt called to request an order for his blood work be sent to [facility] in [place], [place]. documented in this encounter Plan of Treatment Not on file documented as of this encounter Procedures Procedure Name Priority Date/Time Associated Diagnosis Comments PROTIME-INR Routine 08/15/2019 10:45 AM CDT Atrial fibrillation, unspecified type (CMS/HCC) documented in this encounter Results * (ABNORMAL) Protime-INR (08/15/2019 10:45 AM CDT) INR 4.4(H) [employer] CommunicationsOsman Reyes Comment: Reference Range ? 0.9-1.1 Moderate-intensity Warfarin Therapy 2.0-3.0 Higher-intensity Warfarin Therapy ?? 3.0-4.0 PT 46.0(H) 9.0 - 11.5 sec [employer] CommunicationsOsman Reyes Comment: For more information on this test, go to: http://education.Altheos/faq/ONH420 Blood specimen (specimen) 08/15/2019 10:45 AM CDT 08/15/2019 10:46 AM CDT us Erwin Velasquez MD LAB BLOOD ORDERABLES Fin al Result [facility] [address] [place] [address] documented in this encounter Visit Diagnoses Diagnosis Atrial fibrillation, unspecified type (HCC)- Primary documented in this encounter Care Teams Cell Preparer Relationship Specialty Start Date End Date Erwin Gardner MD [address] [place] [address] PCP - General 07/01/16 Kev Dey MD [address] [place], [place] [address] Referring Physician Nephrology 05/10/19 Amelia Rodrigez DPM [address] [place] [address] Consulting Physician Foot and Ankle Surg 06/28/19 documented as of this encounter
--- OUTSIDE RECORDS SUMMARY | 2024-04-15 06:00 | XMS_ITS | Encounter Summary ---
Author Organization [facility] Address [address] [place] [address] Care Team Providers Care Athletic Training Internship Name Role Phone Erwin Gardner MD Primary Care Provide r Kev Dey MD Unavailable [phone] Amelia Rodrigez DPM Unavailable [phone] Encounter Details Date Type Department Care Team (Late st Contact Info) Description 07/19/2019 Orders Only [facility] [address] [place] [address] [phone] Jamar Valera MD [address] [place], [place] [phone] Acute osteomyelitis of left ankle or foot (CMS/HCC) (Primary Dx); Current use of intermediate project manager anticoagulation Social History Tobacco Use Types Packs/Day Years Used Date Smoking Tobacco: Never Smokeless Tobacco: Never Alcohol Use Standard Drinks/Week Comments No 0 (1 standard drink = 0.6 oz pur e alcohol) Sex and Gender Information Value Date Recorded Sex Assigned at Not on file 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 No / Unsure 06/26/2019 9:10 AM CDT documented as of this encounter Plan of Treatment Not on file documented as of this encounter Visit Diagnoses Diagnosis Acute osteomyelitis of left ankle or foot (HCC)- Primary Current use of group home anticoagulation documented in this encounter Care Teams Athletic Training Internship Relationship Specialty Start Date End Date Erwin Gardner MD [address] [place] [address] PCP - General 07/01/16 Kev Dey MD [address] [place] [address] Referring Physician Nephrology 05/10/19 Amelia Rodrigez DPM [address] [place] [address] Consulting Physician Foot and Ankle Surg 06/28/19 documented as of this encounter
--- OUTSIDE RECORDS SUMMARY | 2024-04-15 06:00 | XMS_ITS | Encounter Summary ---
Author Organization [facility] Address [address] [place] [address] Care Team Providers Care Thread Drawer Name Role Phone Erwin Gardner MD Primary Care Provide r Kev Dey MD Unavailable [phone] Amelia Rodrigez DPM Unavailable [phone] Encounter Details Date Type Department Care Team (Late st Contact Info) Description 08/15/2019 12:30 PM CDT [facility] [address] [place] [address] Danette Gallegos, POLITICAL WORKER [address] [address] Skin ulcer of left great toe, unspecified ulcer stage (CMS/HCC) (Primary Dx) Social History Tobacco Use Types Packs/Day Years Used Date Smoking Tobacco: Never Smokeless Tobacco: Never Alcohol Use Standard Drinks/Week Comments No 0 (1 standard drink = 0.6 oz pur e alcohol) Sex and Gender Information Value Date Recorded Sex Assigned at Not on file 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 male. Chief Complaint No chief complaint on file. HPI HPI Erwin Isaac is a 69-year old male with PMH Afib and cardiomyopathy here for follow-up regarding left great toe ulceration. Patient underwent debridement on 06/28/19. Bone pathology was normal and by 07/25/19 ulceration had healed nicely. Patient was placed on oral cephalexin which he finished the last dose a couple of days ago. Patient denies open areas to the left great toe, drainage, pain, swelling, or additional concerns. Past Medical History: Diagnosis Date ??? Adiposity Obesity ??? Atrial fibrillation (CMS/HCC) ??? CHF (congestive heart failure) (CMS/HCC) ??? Chronic kidney disease Stage III ??? HX OTHER MEDICAL Diabetes Type II ??? Hyperlipidemia ??? Hypertension Hypertension ??? Neuropathy (CMS/HCC) Feet ??? Type 2 diabetes mellitus (CMS/HCC) Social History Socioeconomic History ??? Marital status: Spouse name: Not on file ??? Number of children: Not on file ??? Years of education: Not on file ??? Highest education level: Not on file Occupational History ??? Not on file Social Needs ??? Financial resource strain: Not on file ??? Food insecurity Worry: Not on file Inability: Not on file ??? Transportation needs Medical: Not on file Non-medical: Not on file Tobacco Use ??? Smoking status: Never Smoker ??? Smokeless tobacco: Never Used Substance and Sexual Activity ??? Alcohol use: No ??? Drug use: No ??? Sexual activity: Defer Lifestyle ??? Physical activity Days per week: Not on file Minutes per session: Not on file ??? Stress: Not on file Relationships ??? Social connections Talks on phone: Not on file Gets together: Not on file Attends restorationism service: Not on file Active member of club or organization: Not on file Attends meetings of clubs or organizations: Not on file Relationship status: Not on file ??? Intimate partner violence Fear of current or ex partner: Not on file Emotionally abused: Not on file Physically abused: Not on file Forced sexual activity: Not on file Other Topics Concern ??? Not on file Social History Narrative ??? Not on file Family History Problem Relation Age of Onset ??? Coronary artery disease Mother Coronary artery disease, premature; Review of Systems Constitutional: Negative for chills, fatigue and fever. Respiratory: Negative. Cardiovascular: Negative. Gastrointestinal: Negative. Musculoskeletal: Negative. Skin: Negative. Neurological: Positive for numbness. Reports decreased sensation bilateral feet Hematological: Negative. Psychiatric/Behavioral: Negative. Physical Exam Vitals signs reviewed. Constitutional: Appearance: Normal appearance. HENT: Head: Normocephalic. Cardiovascular: Rate and Rhythm: Normal rate and regular rhythm. Pulmonary: Effort: Pulmonary effort is normal. Skin: General: Skin is warm and dry. Findings: No erythema, lesion or rash. Neurological: General: No focal deficit present. Mental Status: He is alert and oriented to person, place, and time. Psychiatric: Mood and Affect: Mood normal. Behavior: Behavior normal. Thought Content: Thought content normal. Judgment: Judgment normal. Temp 36.5 ??C (97.7 ??F) Wt (!) 141.5 kg (312 lb) BMI 39.00 kg/m?? There are no diagnoses linked to this encounter. Erwin Isaac is a 69-year old male with PMH Afib and cardiomyopathy here for follow-up regarding left great toe ulceration. Patient underwent debridement on 06/28/19. Bone pathology was normal and by 07/25/19 ulceration had healed nicely. He has completed a 4 week course of oral cephalexin. [facility] No need for further antibiotics at this time. No need forfollow-up unless further issues. documented in this encounter Plan of Treatment Not on file documented as of this encounter Visit Diagnoses Diagnosis Skin ulcer of left great toe, unspecified ulcer stage (HCC)- Primary documented in this encounter Care Teams Thread Drawer Relationship Specialty Start Date End Date Erwin Gardner MD [address] [place] [address] PCP - General 07/01/16 Kev Dey MD [address] [facility] [place] [id number] Referring Physician Nephrology 05/10/19 Amelia Rodrigez DPM [address] [place] [address] Consulting Physician Foot and Ankle Surg 06/28/19 documented as of this encounter
--- OUTSIDE RECORDS SUMMARY | 2024-04-15 06:00 | XMS_ITS | Encounter Summary ---
Author Organization [facility] Address [address] [place] [address] Care Team Providers Care Ethics Manager Name Role Phone Erwin Gardner MD Primary Care Provide r Kev Dey MD Unavailable [phone] Amelia Rodrigez DPM Unavailable [phone] Encounter Details Date Type Department Care Team (Latest Contact Info) Description 09/04/2019 Anticoagulation Visit [facility] Cardiology [address] [place] [address] Lillian Gallo, RN Atrial fibrillation (CMS/HCC) Social History Tobacco Use Types Packs/Day Years Used Date Smoking Tobacco: Never Smokeless Tobacco: Never Alcohol Use Standard Drinks/Week Comments No 0 (1 standard drink = 0.6 oz pur e alcohol) Sex and Gender Information Value Date Recorded Sex Assigned at Not on file 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 Gender Identity Not on file Sexual Orientation Not on file documented as of this encounter Plan of Treatment Not on file documented as of this encounter Visit Diagnoses Diagnosis Atrial fibrillation (CMS/HCC) (HCC) Atrial fibrillation documented in this encounter Care Teams Ethics Manager Relationship Specialty Start Date End Date Erwin Gardner MD [address] [place] [address] PCP - General 07/01/16 Kev Dey MD [address] [place] [address] Referring Physician Nephrology 05/10/19 Amelia Rodrigez DPM [address] [place] [address] Consulting Physician Foot and Ankle Surg 06/28/19 documented as of this encounter
--- OUTSIDE RECORDS SUMMARY | 2024-04-15 06:00 | XMS_ITS | Encounter Summary ---
Author Organization [facility] Address [address] [place] [address] Care Team Providers Care Plycor Operator Name Role Phone Erwin Gardner MD Primary Care Provide r Kev Dey MD Unavailable [phone] Amelia Rodrigez DPM Unavailable [phone] Encounter Details Date Type Department Care Team (Latest Contact Info) Description 07/18/2019 1:36 PM CDT - 07/18/2019 11:59 PM CDT Hospital Encounter [facility] [address] [place] [address] Amelia Rodrigez, DPM [facility] [place] [address] Discharge Disposition: Discharge to home or self care Social History Tobacco Use Types Packs/Day Years Used Date Smoking Tobacco: Never Smokeless Tobacco: Never Alcohol Use Standard Drinks/Week Comments No 0 (1 standard drink = 0.6 oz pur e alcohol) Sex and Gender Information Value Date Recorded Sex Assigned at Not on file 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
--- OUTSIDE RECORDS SUMMARY | 2024-04-15 06:00 | XMS_ITS | Encounter Summary ---
Author Organization [facility] Healthcare Address [address] [place] [address] Care Team Providers Care Vp Research Name Role Phone Erwin Gardner MD Primary Care Provide r Kev Dey MD Unavailable [phone] Amelia Rodrigez DPM Unavailable [phone] Reason for Referral * Diagnostic Imaging (Routine) - Closed Specialty Diagnoses / Procedures Referred By Megan raymond Referred To Contact Radiology Diagnoses Osteomyelitis of great toe of left foot (CMS/HCC) (HCC) Procedures IR PICC Line Placement > 5 Years Danette Gallegos NP Phone: tel: fax: [address] [address] Referral ID Status Reason Start Date Expiration Date Visits Re quested Visits Authorized [id number] Closed 07/18/2019 01/26/2021 1 1 Reason for Visit * Diagnostic Imaging (Routine) - Closed Specialty Diagnoses / Procedures Referred By Megan raymond Referred To Contact Radiology Diagnoses Osteomyelitis of great toe of left foot (CMS/HCC) (HCC) Procedures IR PICC Line Placement > 5 Years Danette Gallegos NP Phone: tel: fax: [facility] [address] [place] [address] Referral ID Status Reason Start Date Expiration Date Visits Re quested Visits Authorized [id number] Closed 07/18/2019 01/26/2021 1 1 Encounter Details Date Type Department Care Team (Latest Contact Info) Description 07/22/2019 10:00 AM CDT - 07/22/2019 11:59 PM CDT Hospital Encounter [facility] Operating Room [address] [place] [address] Jamar Valera MD [address] [place] [address] Osteomyelitis of great toe of left foot (CMS/HCC) Discharge Disposition: Discharge to home or self care Social History Tobacco Use Types Packs/Day Years Used Date Smoking Tobacco: Never Smokeless Tobacco: Never Alcohol Use Standard Drinks/Week Comments No 0 (1 standard drink = 0.6 oz pur e alcohol) Sex and Gender Information Value Date Recorded Sex Assigned at Not on file 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 No / Unsure 06/26/2019 9:10 AM CDT documented as of this encounter Last Filed Vital Signs Vital Sign Reading Time Taken Comments Blood Pressure 122/86 07/22/2019 11:07 AM CDT Pulse 80 07/22/2019 11:07 AM CDT Temperature 36.7 ??C (98 ??F) 07/22/2019 11:07 AM CDT Respiratory Rate 20 07/22/2019 11:07 AM CDT Oxygen Saturation 97% 07/22/2019 11:07 AM CDT Inhaled Oxygen Concentration - - Weight 136.1 kg (300 lb) 07/22/2019 11:07 AM CDT Height 190.5 cm (6' 3 ) 07/22/2019 11:07 AM CDT Body Mass Index 37.5 07/22/2019 11:07 AM CDT documented in this encounter Medications at Time of Discharge ertapenem (INVANZ) 1 gram recon soln Inject 1,000 mg into the muscle as instructed daily Patient to infuse 1000mg ertapenem every 24 hours IV via elastomeric device 07/26/2019 0 fish oil-dha-epa 1,200-144-216 mg capsule Take 1 capsule by mouth 2 (two) times a day heparin (heparin flush) 10 unit/mL syringeIndications :Maintain Patency of Indwelling Vascular Catheter Administer 50 Units into catheter as needed (line care) 07/26/2019 0 insulin regular (HumuLIN R, NovoLIN R) 100 unit/mL injectionIndicatio ns:type 2 diabetes mellitus Inject under the skin 3 (three) times a day before meals Sliding scale sodium chloride 0.9% injection Infuse 10 mL into a venous catheter as needed for line care 07/26/2019 0 ULTICARE 1 mL 30 gauge x 1/2 [...] or self care documented in this encounter Nursing Notes * Neva Diaz RN - 07/22/2019 10:00 AM CDT Received call from nurse Rafia for Dr. Velasquez. Pt may hold coumadin and have picc placed on Monday. To resume Coumadin after procedure and check a pro- time in 1 week. Pt informed of this. documented in this encounter Miscellaneous Notes * Perioperative Nursing Note - Cindy Lara RN - 07/22/2019 10:00 AM CDT Picc line placement cancelled for today. Pt didn't hold coumadin. INR elevated. Neva Picc RN spokewith pt. Pt tentatively re-scheduled for this Monday, pending cardiology allowing pt to hold coumadin. Pt discharged per w/c accompanied by Neva. documented in this encounter Plan of Treatment Scheduled Orders Name Type Priority Associated Diagnoses Orde r Schedule IR PICC Line Placement > 5 Years Imaging Schedule Routine, Read Routine (OP Routine) Osteomyelitis of great toe of left foot (CMS/HCC) Once for 1 Occurrences starting 07/22/2019 until 07/22/2019 documented as of this encounter Procedures Procedure Name Priority Date/Time Associated Diagnosis Comments APTT STAT 07/22/2019 10:45 AM CDT PROTIME-INR STAT 07/22/2019 10:45 AM CDT CBC WITHOUT DIFFERENTIAL STAT 07/22/2019 10:45 AM CDT documented in this encounter Results * (ABNORMAL) Protime-INR (07/22/2019 10:45 AM CDT) PT 37.2(H) 9.5 - 13.0 sec [facility] ([facility]) INR 3.2(H) 0.9 - 1.2 [facility] ([facility]) Comment: Interpretive data Oral anticoagulant therapeutic ranges: Venous thromboembolism prophylaxis or treatment: 2.0-3.0 CARDIOLOGY Standard range: 2.0-3.0 High-intensity range: 2.5-3.5 Refer to indication-specific guidelines for appropriate target ranges for prosthetic heart valve replacement. Current interpretive data was last revised on 2019. Blood specimen (specimen) 07/22/2019 10:45 AM CDT 07/22/2019 10:53 AM CDT Jamar Valera MD LAB BLOOD ORDERABLES Final Result Performing Organization Address [facility] Co de Phone Number [facility] [address] [facility] [place] [address] * (ABNORMAL) aPTT (07/22/2019 10:45 AM CDT) aPTT 46(H) 25 - 37 sec [facility] ([place]) Comment: Interpretive data Heparin therapeutic range: 60-94 seconds Range based on correlation with therapeutic heparin activity range of 0.3-0.7 units/ml. Current interpretive data was last revised on 2019. Blood specimen (specimen) 07/22/2019 10:45 AM CDT 07/22/2019 10:53 AM CDT Jamar Valera MD LAB BLOOD ORDERABLES Final Result Performing Organization Address [facility] Co de Phone Number [facility] [address] [facility] [place] [address] * (ABNORMAL) CBC without differential (07/22/2019 10:45 AM CDT) WBC 7.0 3.8 - 9.9 K/cumm [facility] ([facility]) Hgb 12.3(L) 13.0 - 17.5 g/dL [facility] ([facility]) Hct 36.8(L) 38.9 - 50.3 % [facility] ([place]) Plt 208 150 - 400 K/cumm [facility] ([place]) MPV 10.9 9.1 - 12.3 fL [facility] ([place]) RBC 4.07(L) 4.30 - 5.80 M/cumm [facility] ([facility]) MCV 90.4 81.3 - 96.4 fL [facility] ([facility]) MCH 30.2 27.1 - 33.3 pg [facility] ([facility]) MCHC 33.4 32.3 - 35.7 g/dL [facility] ([facility]) RDW CV 13.1 11.1 - 14.9 % [facility] ([facility]) RDW SD 43.1 35.7 - 48.1 fL [facility] ([facility]) NRBC abs 0.00 0.00 - 0.01 K/cumm [facility] ([facility]) Blood specimen (specimen) 07/22/2019 10:45 AM CDT 07/22/2019 10:53 AM CDT us Jamar Valera MD LAB BLOOD ORDERABLES Final Result [facility] ([facility]) [address] [facility] Department [place] [address] documented in this encounter Visit Diagnoses Diagnosis Osteomyelitis of great toe of left foot (CMS/HCC) (HCC) documented in this encounter Care Teams Vp Research Relationship Specialty Start Date End Date Erwin Gardner MD [address] [place] [address] PCP - General 07/01/16 Kev Dey MD [address] [place] [address] Referring Physician Nephrology 05/10/19 Amelia Rodrigez DPM [address] [place] [address] Consulting Physician Foot and Ankle Surg 06/28/19 documented as of this encounter
--- OUTSIDE RECORDS SUMMARY | 2024-04-15 06:00 | XMS_ITS | Encounter Summary ---
Author Organization [facility] Medical [facility] Address [address] [place] [address] Care Team Providers Care Front Desk Coordinator Name Role Phone Erwin Gardner MD Primary Care Provide r Kev Dey MD Unavailable [phone] Amelia Rodrigez DPM Unavailable [phone] Encounter Details Date Type Department Care Team (Latest Contact Info) Description 02/10/[address] 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 Gender Identity Not on file Sexual Orientation Not on file documented as of this encounter Plan of Treatment Not on file documented as of this encounter Visit Diagnoses Diagnosis Atrial fibrillation, unspecified type (HCC) documented in this encounter Care Teams Front Desk Coordinator Relationship Specialty Start Date End Date Erwin Gardner MD [address] [place] [address] PCP - General 07/01/16 Kev Dey MD [address] [place] [address] Referring Physician Nephrology 05/10/19 Amelia Rodrigez DPM [address] [place] [address] Consulting Physician Foot and Ankle Surg 06/28/19 documented as of this encounter
--- OUTSIDE RECORDS SUMMARY | 2024-04-15 06:00 | XMS_ITS | Encounter Summary ---
Author Organization [facility] Medical [facility] Address [address] [facility] [address] [place] [address] Care Team Providers Care Client Solutions Manager Name Role Phone Erwin Gardner MD Primary Care Provide r Kev Dey MD Unavailable [phone] Amelia Rodrigez DPM Unavailable [phone] Encounter Details Date Type Department Care Team (Latest Contact Info) Description 08/16/2019 Anticoagulation Visit [facility] Cardiology [address] [place] [address] Lillian Gallo, RN Atrial fibrillation, unspecified type (CMS/HCC) Social History Tobacco Use Types Packs/Day Years Used Date Smoking Tobacco: Never Smokeless Tobacco: Never Alcohol Use Standard Drinks/Week Comments No 0 (1 standard drink = 0.6 oz pur e alcohol) Sex and Gender Information Value Date Recorded Sex Assigned at Not on file 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 Gender Identity Not on file Sexual Orientation Not on file documented as of this encounter Plan of Treatment Not on file documented as of this encounter Visit Diagnoses Diagnosis Atrial fibrillation, unspecified type (HCC) documented in this encounter Care Teams Client Solutions Manager Relationship Specialty Start Date End Date Erwin Gardner MD [address] [place] [address] PCP - General 07/01/16 Kev Dey MD [address] [place] [address] Referring Physician Nephrology 05/10/19 Amelia Rodrigez DPM [address] [place] [address] Consulting Physician Foot and Ankle Surg 06/28/19 documented as of this encounter
--- OUTSIDE RECORDS SUMMARY | 2024-04-15 06:00 | XMS_ITS | Encounter Summary ---
Author Organization [facility] Medical [facility] Address [address] [facility] [address] [place] [address] Care Team Providers Care Family Readiness Support Assistant Name Role Phone Erwin Gardner MD Primary Care Provide r Kev Dey MD Unavailable [phone] Amelia Rodrigez DPM Unavailable [phone] Encounter Details Date Type Department Care Team (Latest Contact Info) Description 03/12/2020 Anticoagulation Visit [facility] Cardiology [address] [place] [address] Lillian Gallo, RN Atrial fibrillation, unspecified type (CMS/HCC) Social History Tobacco Use Types Packs/Day Years Used Date Smoking Tobacco: Never Smokeless Tobacco: Never Alcohol Use Standard Drinks/Week Comments No 0 (1 standard drink = 0.6 oz pur e alcohol) Sex and Gender Information Value Date Recorded Sex Assigned at Not on file 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 Gender Identity Not on file Sexual Orientation Not on file documented as of this encounter Plan of Treatment Not on file documented as of this encounter Visit Diagnoses Diagnosis Atrial fibrillation, unspecified type (HCC) documented in this encounter Care Teams Family Readiness Support Assistant Relationship Specialty Start Date End Date Erwin Gardner MD [address] [place] [address] PCP - General 07/01/16 Kev Dey MD [address] [place] [address] Referring Physician Nephrology 05/10/19 Amelia Rodrigez DPM [address] [place] [address] Consulting Physician Foot and Ankle Surg 06/28/19 documented as of this encounter
--- OUTSIDE RECORDS SUMMARY | 2024-04-15 06:00 | XMS_ITS | Encounter Summary ---
Author Organization [facility] Medical [facility] Address [address] [facility] [address] [place] [address] Care Team Providers Care Isotope Technologist Name Role Phone Erwin Gardner MD Primary Care Provide r Kev Dey MD Unavailable [phone] Amelia Rodrigez DPM Unavailable [phone] Reason for Referral * Consultation (Routine) - Closed Specialty Diagnoses / Procedures Referred By Megan t Referred To Contact Infectious Diseases Diagnoses Infective myositis of toe, unspecified laterality Jamar Valera MD Phone: tel:[phone] fax: Jamar Valera MD [address] [place] [address] Phone: tel:[phone] fax: Referral ID Status Reason Start Date Expiration Date V isits Requested Visits Authorized [id number] Closed Specialty Services Required 07/15/2019 12/02/2019 4 4 Question Answer Please select the performing region: [facility] [[id number]] Please select the performing department: [facility]HEL[facility] ID PW [[id number]] To provider: JAMAR VALERA [[id number]] # of visits: 1 Comments [facility] Encounter Details Date Type Department Care Team (Late st Contact Info) Description 07/22/2019 Orders Only [facility] [address] [place] [place] [address] [place] [address] [phone] Jamar Valera MD [address] [place] [address] Infective myositis of toe, unspecified laterality (Primary Dx) Social History Tobacco Use Types Packs/Day Years Used Date Smoking Tobacco: Never Smokeless Tobacco: Never Alcohol Use Standard Drinks/Week Comments No 0 (1 standard drink = 0.6 oz pur e alcohol) Sex and Gender Information Value Date Recorded Sex Assigned at Not on file 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 No / Unsure 06/26/2019 9:10 AM CDT documented as of this encounter Plan of Treatment Scheduled Referrals Name Type Priority Associated Diagnoses Orde r Schedule Ambulatory referral to Infectious Disease Outpatient Referral Routine Infective myositis of toe, unspecified laterality Ordered: 07/22/2019 documented as of this encounter Visit Diagnoses Diagnosis Infective myositis of toe, unspecified laterality- Primary documented in this encounter Care Teams Isotope Technologist Relationship Specialty Start Date End Date Erwin Gardner MD [address] [place] [address] PCP - General 07/01/16 Kev Dey MD [address] [place] [address] Referring Physician Nephrology 05/10/19 Amelia Rodrigez DPM [address] [place] [address] Consulting Physician Foot and Ankle Surg 06/28/19 documented as of this encounter
--- OUTSIDE RECORDS SUMMARY | 2024-04-15 06:00 | XMS_ITS | Encounter Summary ---
Author Organization [facility] Address [address] [facility] [address] [place] [address] Care Team Providers Care Heating Worker Name Role Phone Erwin Gardner MD Primary Care Provide r Kev Dey MD Unavailable [phone] Amelia Rodrigez DPM Unavailable [phone] Reason for Visit * Reason Comments Atrial Fibrillation * Consultation (Routine) - Canceled Specialty Diagnoses / Procedures Referred By Contherman t Referred To Contact Cardiology Diagnoses Atrial fibrillation (CMS/HCC) (HCC) Primary cardiomyopathy (HCC) Erwin Gardner MD [address] [place] [address] Phone: tel: fax: [facility] Medical [facility] Cardiology [address] [place] [address] Phone: tel: fax: Referral ID Status Reason Start Date Expiration Date Visits Requested Visits Authorized [id number] Canceled Specialty Services Required 10/31/2019 10/31/2020 12 12 Encounter Details Date Type Department Care Team (Late st Contact Info) Description 10/31/2019 8:30 AM CDT Office Visit [facility] Medical [facility] Cardiology [address] [place] [address] Erwin Velasquez MD [address] [address] Atrial fibrillation (CMS/HCC) [I48.91] (Primary Dx) Social History Tobacco Use Types Packs/Day Years Used Date Smoking Tobacco: Never Smokeless Tobacco: Never Alcohol Use Standard Drinks/Week Comments No 0 (1 standard drink = 0.6 oz pur e alcohol) Sex and Gender Information Value Date Recorded Sex Assigned at Not on file 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 Gender Identity Not on file Sexual Orientation Not on file documented as of this encounter Last Filed Vital Signs Vital Sign Reading Time Taken Comments Blood Pressure 110/66 10/31/2019 8:31 AM CDT Pulse 53 10/31/2019 8:31 AM CDT Temperature - - Respiratory Rate - - Oxygen Saturation 96% 10/31/2019 8:31 AM CDT Inhaled Oxygen Concentration - - Weight 139.3 kg (307 lb) 10/31/2019 8:31 AM CDT Height - - Body Mass Index 38.37 07/22/2019 11:07 AM CDT documented in this encounter Progress Notes * Erwin Velasquez MD - 10/31/2019 8:30 AM CDT [facility] FOLLOW UP 10/31/2019 Erwin Isaac is a 69 y.o. male who presents for follow up [...] has been anticoagulated and rate controlled. He returns to the office today for routine scheduled follow-up. Overall he seems to be doing well he does not describe any new cardiovascular symptoms or concerns. His principal other comorbidity continues to be morbid obesity. REVIEW OF SYSTEMS General ROS: negative for [...] by mouth daily, Disp: 135 tablet, Rfl: 3 ??? insulin regular (HumuLIN R, NovoLIN R) [...] 1 tablet (50 mg total) by mouth daily., Disp: 90 tablet, Rfl: 3 ??? ULTICARE 1 mL 30 gauge x 1/2 syringe, , Disp: , Rfl: ??? warfarin (COUMADIN) 2.5 mg tablet, Take 2.5 mg by mouth 2 (two) times a week, Disp: , Rfl: ??? warfarin (COUMADIN) 5 mg tablet, 2.5 mg (5 mg x 0.5) every Mon, Mon, Sat; 5 mg (5 mg x 1) all other days, Disp: 90 tablet, Rfl: 3 ??? HYDROcodone-acetaminophen (NORCO) 5-325 mg per tablet, Take 1 tablet by mouth every 4 (four) hours as needed for pain (Patient not taking: Reported on 10/31/2019), Disp: 20 tablet, Rfl: 0 ??? HYDROcodone-acetaminophen (NORCO) 5-325 mg per tablet, Take 1 tablet by mouth every 4 (four) hours as needed for pain (Patient not taking: Reported on 10/31/2019), Disp: 20 tablet, Rfl: 0 LABS AND OTHER DIAGNOSTIC TESTS No results found for: CHOL No results found for: HDL No results found for: LDLCALC No results found for: TRIG No results found for: CHOLHDL Lab Results Component Value Date WBC 7.0 07/22/2019 HGB 12.3 (L) 07/22/2019 HCT 36.8 (L) 07/22/2019 MCV 90.4 07/22/2019 No lab exists for component: LABALBU PHYSICAL EXAM Vitals BP 110/66 Pulse 53 Wt (!) 139.3 kg (307 lb) SpO2 96% BMI 38.37 kg/m?? Physical Examination: General appearance -significantly obese [...] noted ASSESSMENT Erwin was seen today for atrial fibrillation. Diagnoses and all orders for this visit: Atrial fibrillation (CMS/HCC) [I48.91] PLAN/RECOMMENDATIONS Continue current rate control and anticoagulation strategy Follow-up at 6 month intervals Erwin Velasquez MD documented in this encounter Plan of Treatment Not on file documented as of this encounter Visit Diagnoses Diagnosis Atrial fibrillation (CMS/HCC) [I48.91]- Primary Atrial fibrillation documented in this encounter Care Teams Heating Worker Relationship Specialty Start Date End Date Erwin Gardner MD [address] [place] [address] PCP - General 07/01/16 Kev Dey MD [address] [place] [address] Referring Physician Nephrology 05/10/19 Amelia Rodrigez DPM [address] [place] [address] Consulting Physician Foot and Ankle Surg 06/28/19 documented as of this encounter
--- OUTSIDE RECORDS SUMMARY | 2024-04-15 06:00 | XMS_ITS | Encounter Summary ---
Author Organization [facility] Medical [facility] Address [address] [facility] [address] [place] [address] Care Team Providers Care Surgical Dressing Maker Name Role Phone Erwin Gardner MD Primary Care Provide r Kev Dey MD Unavailable [phone] Amelia Rodrigez DPM Unavailable [phone] Encounter Details Date Type Department Care Team (Latest Contact Info) Description 01/10/2020 Anticoagulation Visit [facility] Cardiology [address] [address] Erwin Velasquez MD [address] [address] Atrial fibrillation, unspecified type (CMS/HCC) Social History Tobacco Use Types Packs/Day Years Used Date Smoking Tobacco: Never Smokeless Tobacco: Never Alcohol Use Standard Drinks/Week Comments No 0 (1 standard drink = 0.6 oz pur e alcohol) Sex and Gender Information Value Date Recorded Sex Assigned at Not on file 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 Gender Identity Not on file Sexual Orientation Not on file documented as of this encounter Plan of Treatment Not on file documented as of this encounter Visit Diagnoses Diagnosis Atrial fibrillation, unspecified type (HCC) documented in this encounter Care Teams Surgical Dressing Maker Relationship Specialty Start Date End Date Erwin Gardner MD [address] [place] [address] PCP - General 07/01/16 Kev Dey MD [address] [place] [address] Referring Physician Nephrology 05/10/19 Amelia Rodrigez DPM [address] [place] [address] Consulting Physician Foot and Ankle Surg 06/28/19 documented as of this encounter
--- OUTSIDE RECORDS SUMMARY | 2024-04-15 06:00 | XMS_ITS | Encounter Summary ---
Author Organization [facility] Address [address] [place] [address] Care Team Providers Care Field Crop Farming Supervisor Name Role Phone Erwin Gardner MD Primary Care Provide r Kev Dey MD Unavailable [phone] Amelia Rodrigez DPM Unavailable [phone] Reason for Visit * Reason Onset Date Comments RLE redfariba 07/24/2019 Encounter Details Date Type Department Care Team (Late st Contact Info) Description 07/24/2019 Telephone [facility] [address] [place] [address] Jamar Valera MD [address] [place] [address] RLE redness Social History Tobacco Use Types Packs/Day Years Used Date Smoking Tobacco: Never Smokeless Tobacco: Never Alcohol Use Standard Drinks/Week Comments No 0 (1 standard drink = 0.6 oz pur e alcohol) Sex and Gender Information Value Date Recorded Sex Assigned at Not on file 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 No / Unsure 06/26/2019 9:10 AM CDT documented as of this encounter Miscellaneous Notes * Telephone Encounter - Jamar Valera MD - 07/25/2019 10:13 AM CDT agree * Telephone Encounter - Nat Frye - 07/24/2019 11:31 AM CDT Pt called with concern over right lower extremity. Off warfarin this week for picc placement on Monday. He states it is red, no swelling, no pain, not warm to touch. Scheduled for eval with our office tomorrow. Pt to go to ER if and swelling, pain, discomfort or worsening sx. documented in this encounter Plan of Treatment Not on file documented as of this encounter Visit Diagnoses Not on filedocumented in this encounter Care Teams Field Crop Farming Supervisor Relationship Specialty Start Date End Date Erwin Gardner MD [address] [place] [address] PCP - General 07/01/16 Kev Dey MD [address] [place] [address] Referring Physician Nephrology 05/10/19 Amelia Rodrigez DPM [address] [place] [id number] Consulting Physician Foot and Ankle Surg 06/28/19 documented as of this encounter
--- OUTSIDE RECORDS SUMMARY | 2024-04-15 06:00 | XMS_ITS | Encounter Summary ---
Author Organization [facility] Address [address] [place] [address] Care Team Providers Care Coffee Machine Technician Name Role Phone Erwin Gardner MD Primary Care Provide r Kev Dey MD Unavailable [phone] Amelia Rodrigez DPM Unavailable [phone] Reason for Visit * Reason Comments Follow-up 6 mo follow up on a- fib * Consultation (Routine) - Canceled Specialty Diagnoses / Procedures Referred By Megan t Referred To Contact Cardiology Diagnoses Atrial fibrillation (CMS/HCC) (HCC) Primary cardiomyopathy (HCC) Erwin Gardner MD [address] [place] [address] Phone: tel: fax: [facility] [address] [place] [phone] Phone: tel: fax: Referral ID Status Reason Start Date Expiration Date Visits Requested Visits Authorized [id number] Canceled Specialty Services Required 10/31/2019 10/31/2020 12 12 Encounter Details Date Type Department Care Team (Late st Contact Info) Description 05/07/2020 2:30 PM ELECTROMATIC TYPIST Office Visit [facility] Cardiology [address] [place] [phone] Erwin Velasquez MD [address] [facility] [[email or web address] [address] [place], [place] [id number] Permanent atrial fibrillation (CMS/HCC) (Primary Dx); Cardiomyopathy, idiopathic (CMS/HCC); Lipid screening Social History Tobacco Use Types Packs/Day Years Used Date Smoking Tobacco: Never Smokeless Tobacco: Never Alcohol Use Standard Drinks/Week Comments No 0 (1 standard drink = 0.6 oz pur e alcohol) Sex and Gender Information Value Date Recorded Sex Assigned at Not on file Legal Sex Male 11:57 AM ELECTROMATIC TYPIST Gender Identity Not on file Sexual Orientation Not on file documented as of this encounter Last Filed Vital Signs Vital Sign Reading Time Taken Comments Blood Pressure 120/72 05/07/2020 2:31 PM ELECTROMATIC TYPIST Pulse 88 05/07/2020 2:31 PM ELECTROMATIC TYPIST Temperature - - Respiratory Rate - - Oxygen Saturation 97% 05/07/2020 2:31 PM ELECTROMATIC TYPIST Inhaled Oxygen Concentration - - Weight 142.9 kg (315 lb) 05/07/2020 2:31 PM ELECTROMATIC TYPIST Height 190.5 cm (6' 3 ) 05/07/2020 2:31 PM ELECTROMATIC TYPIST Body Mass Index 39.37 05/07/2020 2:31 PM ELECTROMATIC TYPIST documented in this encounter Progress Notes * Erwin Velasquez MD - 05/07/2020 2:30 PM CST [facility] FOLLOW UP 05/07/2020 Erwin Isaac is a 70 y.o. male [...] has been anticoagulated and rate controlled. Patient returns today to the office for scheduled follow-up. He continues on his regimen of medication for LV dysfunction and systemic anticoagulation with warfarin. He is doing very well in general he is asymptomatic. He stays home and he has gained a fair amount of weight in the last year with the pandemic any states that after his his diet has been rather poor all is well resulting in the tendency to gain weight REVIEW OF SYSTEMS General ROS: negative for [...] daily, Disp: 135 tablet, Rfl: 3 ??? HYDROcodone-acetaminophen (NORCO) 5-325 [...] 10/31/2019), Disp: 20 tablet, Rfl: 0 ??? insulin regular (HumuLIN R, NovoLIN R) [...] other days, Disp: 90 tablet, Rfl: 3 LABS AND OTHER DIAGNOSTIC TESTS [...] Diagnoses and all orders for this visit: Permanent atrial fibrillation (CMS/HCC) Cardiomyopathy, idiopathic (CMS/HCC) PLAN/RECOMMENDATIONS Continue current rate control and anticoagulation strategy Follow-up at 6 month intervals Erwin Velasquez MD TROMATIC TYPIST documented in this encounter Miscellaneous Notes * Addendum Note - Shakira Bourne MA - 05/07/2020 2:30 PM CSTAddended by: SHAKIRA BOURNE on: 05/07/2020 04:53 PM Modules accepted: Orders TROMATIC TYPIST documented in this encounter Plan of Treatment Not on file documented as of this encounter Procedures Procedure Name Priority Date/Time Associated Diagnosis Comments POCT LIPID PANEL Routine 05/07/2020 4:53 PM ELECTROMATIC TYPIST Lipid screening documented in this encounter Results * POCT lipid panel (05/07/2020 4:53 PM ELECTROMATIC TYPIST) Cholesterol, POC 181 mg/dL HDL, POC 59 mg/dL Triglycerides, POC 239 mg/dL LDL Cholesterol POC 75 mg/dL Chol/HDL Ratio, POC 3.1 Non-HDL Cholesterol, POC 123 mg/dL Cholesterol Total, POC 181 mg/dL Capillary blood 05/07/2020 4 :53 PM ELECTROMATIC TYPIST Erwin Velasquez MD POINT OF CARE TEST ORDER EVY Final Result documented in this encounter Visit Diagnoses Diagnosis Permanent atrial fibrillation (CMS/HCC) (HCC)- Primary Atrial fibrillation Cardiomyopathy, idiopathic (HCC) Other primary cardiomyopathies Lipid screening Screening for lipoid disorders documented in this encounter Discontinued Medications Medication Sig Discontinue Reason Start Date End Da te HYDROcodone-acetaminophe n (NORCO) 5-325 mg per tabletIndications:Pain Take 1 tablet by mouth every 4 (four) hours as needed for pain Therapy completed 06/28/2019 05/07/2020 HYDROcodone-acetaminophe n (NORCO) 5-325 mg per tabletIndications:Pain Take 1 tablet by mouth every 4 (four) hours as needed for pain Therapy completed 06/28/2019 05/07/2020 documented as of this encounter Care Teams Coffee Machine Technician Relationship Specialty Start Date End Date Erwin Gardner MD [address] [place] [address] PCP - General 07/01/16 Kev Dey MD [address] [place] [address] Referring Physician Nephrology 05/10/19 Amelia Rodrigez DPM [address] [place] [id number] Consulting Physician Foot and Ankle Surg 06/28/19 documented as of this encounter
--- OUTSIDE RECORDS SUMMARY | 2024-04-15 06:00 | XMS_ITS | Encounter Summary ---
Author Organization [facility] Address [address] [place] [address] Care Team Providers Care Electrification Adviser Name Role Phone Erwin Gardner MD Primary Care Provide r Kev Dey MD Unavailable [phone] Amelia Rodrigez DPM Unavailable [phone] Reason for Referral * Diagnostic Imaging (Routine) - Closed Specialty Diagnoses / Procedures Referred By Megan t Referred To Contact Radiology Diagnoses Osteomyelitis of great toe of left foot (CMS/HCC) (HCC) Procedures IR PICC Line Placement > 5 Years Danette Gallegos NP Phone: tel: fax: [address] [address] Referral ID Status Reason Start Date Expiration Date Visits Re quested Visits Authorized [id number] Closed 07/18/2019 01/26/2021 1 1 Reason for Visit * Reason Comments Osteomyelitis left big toe Encounter Details Date Type Department Care Team (Latest Contact Info) Description 07/18/2019 12:30 PM CDT Office Visit [facility] [address] [place] [address] Danette Gallegos NP [address] [place] [address] Osteomyelitis of great toe of left foot (CMS/HCC) (Primary Dx) Social History Tobacco Use Types Packs/Day Years Used Date Smoking Tobacco: Never Smokeless Tobacco: Never Alcohol Use Standard Drinks/Week Comments No 0 (1 standard drink = 0.6 oz pur e alcohol) Sex and Gender Information Value Date Recorded Sex Assigned at Not on file 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 male. Chief Complaint Chief Complaint Patient presents with ??? Osteomyelitis left big toe HPI HPI Erwin Isaac is a 69-year old male with history of Afib, cardiomyopathy and non- healing left great toe ulceration. Patient states the ulceration has been present for the past year. [facility] Recent bone scan was concerning for osteomyelitis and patient underwent debridement of left great toe with bone biopsy on 06/28/19. Bone culture grew mixed gram- positive organisms. Patient denies fever, chills, or pain in foot. Left foot is casted at this time and, per patient, is scheduled to be [facility]. Past Medical History: Diagnosis Date ??? Adiposity [...] file Gets together: Not on file Attends protestant service: Not on file Active member of [...] premature; Review of Systems Constitutional: Negative for chills and fever. Respiratory: Negative for cough and shortness of breath. Cardiovascular: Negative for chest pain. Gastrointestinal: Negative for diarrhea, nausea and vomiting. Skin: Positive for wound. Left great toe Neurological: Negative for dizziness, weakness and headaches. Hematological: Negative for adenopathy. Psychiatric/Behavioral: Negative for agitation, behavioral problems and confusion. Physical Exam Vitals signs reviewed. Constitutional: Appearance: Normal appearance. HENT: Head: Normocephalic. Cardiovascular: Rate and Rhythm: Normal rate. Pulmonary: Effort: Pulmonary effort is normal. Abdominal: Palpations: Abdomen is soft. Skin: General: Skin is warm and dry. Comments: Cast intact to left foot. Unable to visualize wound. Neurological: General: No focal deficit present. Mental Status: He is alert and oriented to person, place, and time. Psychiatric: Mood and Affect: Mood normal. Behavior: Behavior normal. Thought Content: Thought content normal. Judgment: Judgment normal. Temp 36.3 ??C (97.4 ??F) Ht 190.5 cm (6' 3 ) Wt (!) 139.7 kg (308 lb) BMI 38.50 kg/m?? There are no diagnoses linked to this encounter. Erwin Isaac is a 69-year old male with history of Afib and cardiomyopathy presents today for left great toe osteomyelitis. He is s/p debridement of left great toe with bone culture positive for mixed miranda. Discussed with Dr. Brooks. Patient lives alone and prefers to [facility]. Will obtain baseline BMP, CBC, and ESR. Obtain PT-INR and PTT prior to PICC line placement. Plan: 1. Ertapenem 1 g IV daily x 6 weeks 2. Weekly CBC, BMP, ESR- Please fax results to [phone] 3. Follow-up with Dr. Brooks in 4 weeks documented in this encounter Plan of Treatment Scheduled Orders Name Type Priority Associated Diagnoses Orde r Schedule IR PICC Line Placement > 5 Years Imaging Schedule Routine, Read Routine (OP Routine) Osteomyelitis of great toe of left foot (CMS/HCC) Expected: 07/18/2019, Expires: 07/17/2020 documented as of this encounter Visit Diagnoses Diagnosis Osteomyelitis of great toe of left foot (CMS/HCC) ([facility])- Primary documented in this encounter Care Teams Electrification Adviser Relationship Specialty Start Date End Date Erwin Gardner MD [address] [place] [address] PCP - General 07/01/16 Kev Dey MD [address] [place] [address] Referring Physician Nephrology 05/10/19 Amelia Rodrigez DPM [address] [place] [id number] Consulting Physician Foot and Ankle Surg 06/28/19 documented as of this encounter
--- OUTSIDE RECORDS SUMMARY | 2024-04-15 06:00 | XMS_ITS | Encounter Summary ---
Author Organization [facility] Address [address] [place] [address] Care Team Providers Care Grant Administrator Name Role Phone Erwin Gardner MD Primary Care Provide r Kev Dey MD Unavailable [phone] Amelia RodrigezM Unavailable [phone] Encounter Details Date Type Department Care Team (Late st Contact Info) Description 08/19/2019 Telephone [facility] Cardiology [address] [facility] [address] [place] [address] Erwin Velasquez MD [address] [place] [address] Social History Tobacco Use Types Packs/Day Years Used Date Smoking Tobacco: Never Smokeless Tobacco: Never Alcohol Use Standard Drinks/Week Comments No 0 (1 standard drink = 0.6 oz pur e alcohol) Sex and Gender Information Value Date Recorded Sex Assigned at Not on file 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 documented in this encounter Plan of Treatment Scheduled Orders Name Type Priority Associated Diagnoses Orde r Schedule Protime-INR Lab Routine Atrial fibrillation, unspecified type (CMS/HCC) weekly for 52 Occurrences starting 08/19/2019 until 08/18/2020, 11 completed documented as of this encounter Procedures Procedure Name Priority Date/Time Associated Diagnosis Comments PROTIME-INR Routine 07/31/2020 10:16 AM CDT Atrial fibrillation, unspecified type (CMS/HCC) PROTIME-INR Routine 06/18/2020 8:21 AM CDT Atrial fibrillation, unspecified type (CMS/HCC) PROTIME-INR Routine 05/26/2020 6:46 AM UTILITY GELATIN MAKER Atrial fibrillation, unspecified type (CMS/HCC) PROTIME-INR Routine 04/28/2020 12:34 PM UTILITY GELATIN MAKER Atrial fibrillation, unspecified type (CMS/HCC) PROTIME-INR Routine 03/30/2020 8:32 AM UTILITY GELATIN MAKER Atrial fibrillation, unspecified type (CMS/HCC) PROTIME-INR Routine 03/11/2020 8:44 AM UTILITY GELATIN MAKER Atrial fibrillation, unspecified type (CMS/HCC) PROTIME-INR Routine 02/10/2020 10:57 AM UTILITY GELATIN MAKER Atrial fibrillation, unspecified type (CMS/HCC) PROTIME-INR Routine 01/09/2020 10:26 AM CDT Atrial fibrillation, unspecified type (CMS/HCC) PROTIME-INR Routine 11/13/2019 7:19 AM CDT Atrial fibrillation, unspecified type (CMS/HCC) PROTIME-INR Routine 10/07/2019 9:18 AM CDT Atrial fibrillation, unspecified type (CMS/HCC) PROTIME-INR Routine 09/04/2019 10:00 AM CDT Atrial fibrillation, unspecified type (CMS/HCC) documented in this encounter Results * (ABNORMAL) Protime-INR (07/31/2020 10:16 AM CDT) INR 2.6(H) Yolanda Reyes Comment: Reference Range ? 0.9-1.1 Moderate-intensity Warfarin Therapy 2.0-3.0 Higher-intensity Warfarin Therapy ?? 3.0-4.0 PT 24.9(H) 9.0 - 11.5 sec Yolanda Reyes Comment: For additional information, please refer to http://ByteActive.Remicalm/faq/IYN520 (This link is being provided for informational/ educational purposes only.) Blood specimen (specimen) 07/31/2020 10:16 AM CDT 07/31/2020 10:16 AM CDT Narrative [facility] - 07/31/2020 4:21 PM CDT FASTING:NO FASTING: NO us Erwin Velasquez MD LAB BLOOD ORDERABLES Fin al Result Performing Organization Address City/State/[facility] Co de Phone Number [facility] [address] [place] [address] * (ABNORMAL) Protime-INR (06/18/2020 8:21 AM CDT) INR 2.3(H) Yolanda Reyes Comment: Reference Range ? 0.9-1.1 Moderate-intensity Warfarin Therapy 2.0-3.0 Higher-intensity Warfarin Therapy ?? 3.0-4.0 PT 22.1(H) 9.0 - 11.5 sec Yolanda [employer]Osman Reyes Comment: For additional information, please refer to http://Tanyas Jewel[employer]/faq/KLC506 (This link is being provided for informational/ educational purposes only.) Blood specimen (specimen) 06/18/2020 8:21 AM CDT 06/18/2020 8:22 AM CDT Erwin Velasquez MD LAB BLOOD ORDERABLES Fin al Result Performing Organization Address [facility] de Phone Number [facility] [address] [place] [address] * (ABNORMAL) Protime-INR (05/26/2020 6:46 AM UTILITY GELATIN MAKER) INR 4.3(H) [facility] Comment: Reference Range ? 0.9-1.1 Moderate-intensity Warfarin Therapy 2.0-3.0 Higher-intensity Warfarin Therapy ?? 3.0-4.0 PT 40.3(H) 9.0 - 11.5 sec [facility] Comment: For additional information, please refer to http://T[employer]/faq/NVL786 (This link is being provided for informational/ educational purposes only.) Blood specimen (specimen) 05/26/2020 6:46 AM UTILITY GELATIN MAKER 05/26/2020 6:47 AM UTILITY GELATIN MAKER Narrative [facility] - 05/26/2020 4:37 PM UTILITY GELATIN MAKER FASTING:YES FASTING: YES Erwin Velasquez MD LAB BLOOD ORDERABLES Fin al Result Performing Organization Address [facility] de Phone Number [facility] [address] [place] [address] * (ABNORMAL) Protime-INR (04/28/2020 12:34 PM UTILITY GELATIN MAKER) INR 2.5(H) [facility] Comment: Reference Range ? 0.9-1.1 Moderate-intensity Warfarin Therapy 2.0-3.0 Higher-intensity Warfarin Therapy ?? 3.0-4.0 PT 24.6(H) 9.0 - 11.5 sec [facility] Comment: For additional information, please refer to http://[employer]/faq/BLK546 (This link is being provided for informational/ educational purposes only.) Blood specimen (specimen) 04/28/2020 12:34 PM UTILITY GELATIN MAKER 04/28/2020 12:35 PM UTILITY GELATIN MAKER Erwin Velasquez MD LAB BLOOD ORDERABLES Fin al Result Performing Organization Address City/[facility] de Phone Number Neos CorporationAnn [address] [facility] [place] [address] * (ABNORMAL) Protime-INR (03/30/2020 8:32 AM UTILITY GELATIN MAKER) INR 3.8(H) DISKOVReOsman Reyes Comment: Reference Range ? 0.9-1.1 Moderate-intensity Warfarin Therapy 2.0-3.0 Higher-intensity Warfarin Therapy ?? 3.0-4.0 PT 35.7(H) 9.0 - 11.5 sec DISKOVReOsman Reyes Comment: For additional information, please refer to http://education.Remicalm/faq/DVW576 (This link is being provided for informational/ educational purposes only.) Blood specimen (specimen) 03/30/2020 8:32 AM UTILITY GELATIN MAKER 03/30/2020 8:33 AM UTILITY GELATIN MAKER Erwin Velasquez MD LAB BLOOD ORDERABLES Fin al Result Performing Organization Address City/[facility] Co de Phone Number [employer] [address] [place] [address] * (ABNORMAL) Protime-INR (03/11/2020 8:44 AM UTILITY GELATIN MAKER) INR 3.4(H) [facility] Comment: Reference Range ? 0.9-1.1 Moderate-intensity Warfarin Therapy 2.0-3.0 Higher-intensity Warfarin Therapy ?? 3.0-4.0 PT 32.2(H) 9.0 - 11.5 sec [facility] Comment: For additional information, please refer to http://ByteActive.Remicalm/faq/OFK158 (This link is being provided for informational/ educational purposes only.) Blood specimen (specimen) 03/11/2020 8:44 AM UTILITY GELATIN MAKER 03/11/2020 8:45 AM UTILITY GELATIN MAKER Erwin Velasquez MD LAB BLOOD ORDERABLES Fin al Result Performing Organization Address [facility] de Phone Number [facility] [address] [place] [address] * (ABNORMAL) Protime-INR (02/10/2020 10:57 AM UTILITY GELATIN MAKER) INR 3.1(H) [facility] Comment: Reference Range ? 0.9-1.1 Moderate-intensity Warfarin Therapy 2.0-3.0 Higher-intensity Warfarin Therapy ?? 3.0-4.0 PT 29.4(H) 9.0 - 11.5 sec [facility]i Reyes Comment: For additional information, please refer to http://ByteActive.Remicalm/faq/HRS771 (This link is being provided for informational/ educational purposes only.) Blood specimen (specimen) 02/10/2020 10:57 AM UTILITY GELATIN MAKER 02/10/2020 10:58 AM UTILITY GELATIN MAKER Erwin Velasquez MD LAB BLOOD ORDERABLES Fin al Result Performing Organization Address [facility] de Phone Number [facility] [address] [place] [address] * (ABNORMAL) Protime-INR (01/09/2020 10:26 AM CDT) INR 3.0(H) [facility] Comment: Reference Range ? 0.9-1.1 Moderate-intensity Warfarin Therapy 2.0-3.0 Higher-intensity Warfarin Therapy ?? 3.0-4.0 PT 29.9(H) 9.0 - 11.5 sec [facility] Comment: For more information on this test, go to: http://ByteActive.Remicalm/faq/CZM617 Blood specimen (specimen) 01/09/2020 10:26 AM CDT 01/09/2020 10:28 AM CDT Erwin Velasquez MD LAB BLOOD ORDERABLES Fin al Result Performing Organization Address [facility] Co de Phone Number [facility] [address] [place] [address] * (ABNORMAL) Protime-INR (11/13/2019 7:19 AM CDT) INR 1.8(H) [facility] Comment: Reference Range ? 0.9-1.1 Moderate-intensity Warfarin Therapy 2.0-3.0 Higher-intensity Warfarin Therapy ?? 3.0-4.0 PT 18.9(H) 9.0 - 11.5 sec [facility] Comment: For more information on this test, go to: http://ByteActive.Remicalm/faq/BPR842 Blood specimen (specimen) 11/13/2019 7:19 AM CDT 11/13/2019 7:20 AM CDT Erwin Velasquez MD LAB BLOOD ORDERABLES Fin al Result Performing Organization Address [facility] Co de Phone Number [facility] [address] [place] [address] * (ABNORMAL) Protime-INR (10/07/2019 9:18 AM CDT) INR 2.1(H) [facility] Comment: Reference Range ? 0.9-1.1 Moderate-intensity Warfarin Therapy 2.0-3.0 Higher-intensity Warfarin Therapy ?? 3.0-4.0 PT 22.4(H) 9.0 - 11.5 sec [facility] Comment: For more information on this test, go to: http://ByteActive.Remicalm/faq/COS184 Blood specimen (specimen) 10/07/2019 9:18 AM CDT 10/07/2019 9:19 AM CDT Erwin Velasquez MD LAB BLOOD ORDERABLES Fin al Result Performing Organization Address City/[facility] Co de Phone Number [facility] [address] [place] [address] * (ABNORMAL) Protime-INR (09/04/2019 10:00 AM CDT) INR 3.0(H) [facility] Comment: Reference Range ? 0.9-1.1 Moderate-intensity Warfarin Therapy 2.0-3.0 Higher-intensity Warfarin Therapy ?? 3.0-4.0 PT 31.3(H) 9.0 - 11.5 sec [facility] Comment: For more information on this test, go to: http://ByteActive.Remicalm/faq/CAR995 Blood specimen (specimen) 09/04/2019 10:00 AM CDT 09/04/2019 10:01 AM CDT Erwin Velasquez MD LAB BLOOD ORDERABLES Fin al Result Performing Organization Address City/[facility] Co de Phone Number [facility] [address] [place] [address] documented in this encounter Visit Diagnoses Diagnosis Atrial fibrillation, unspecified type (HCC)- Primary documented in this encounter Care Teams Grant Administrator Relationship Specialty Start Date End Date Erwin Gardner MD [address] [place] [address] PCP - General 07/01/16 Kev Dey MD [address] [place] [address] Referring Physician Nephrology 05/10/19 Amelia Rodrigez DPM [address] [place] [address] Consulting Physician Foot and Ankle Surg 06/28/19 documented as of this encounter
--- OUTSIDE RECORDS SUMMARY | 2024-04-15 06:00 | XMS_ITS | Encounter Summary ---
Author Organization [facility] Address [address] [place] [address] Care Team Providers Care Workers' Compensation Hearings Officer Name Role Phone Erwin Gardner MD Primary Care Provide r Kev Dey MD Unavailable [phone] Amelia Rodrigez DPM Unavailable [phone] Encounter Details Date Type Department Care Team (Latest Contact Info) Description 05/26/2020 Anticoagulation Visit [facility] Cardiology [address] [place] [address] Selena Starr RN Atrial fibrillation, unspecified type (CMS/HCC) Social History Tobacco Use Types Packs/Day Years Used Date Smoking Tobacco: Never Smokeless Tobacco: Never Alcohol Use Standard Drinks/Week Comments No 0 (1 standard drink = 0.6 oz pur e alcohol) Sex and Gender Information Value Date Recorded Sex Assigned at Not on file 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 Gender Identity Not on file Sexual Orientation Not on file documented as of this encounter Plan of Treatment Not on file documented as of this encounter Visit Diagnoses Diagnosis Atrial fibrillation, unspecified type (HCC) documented in this encounter Care Teams Workers' Compensation Hearings Officer Relationship Specialty Start Date End Date Erwin Gardner MD [address] [place] [address] PCP - General 07/01/16 Kev Dey MD [address] [place] [address] Referring Physician Nephrology 05/10/19 Amelia Rodrigez DPM [address] [place] [address] Consulting Physician Foot and Ankle Surg 06/28/19 documented as of this encounter
--- OUTSIDE RECORDS SUMMARY | 2024-04-15 06:00 | XMS_ITS | Encounter Summary ---
Author Organization [facility] Address [address] [place] [address] Care Team Providers Care Television Mechanic Name Role Phone Darlene Gardner MD Primary Care Provide r Kev Dey MD Unavailable [phone] Amelia Rodrigez DPM Unavailable [phone] Reason for Referral * Diagnostic Imaging (Routine) - Closed Specialty Diagnoses / Procedures Referred By Megan raymond Referred To Contact Diagnoses Lower extremity edema Procedures US Vein Duplex Lower Extremity Right Limited Danette Gallegos NP Phone: tel: fax: [facility] [address] [place] [address] [place] [address] Phone: tel: fax: Referral ID Status Reason Start Date Expiration Date Visits Re quested Visits Authorized [id number] Closed 07/25/2019 02/02/2021 1 1 Reason for Visit * Diagnostic Imaging (Routine) - Closed Specialty Diagnoses / Procedures Referred By Megan raymond Referred To Contact Diagnoses Lower extremity edema Procedures US Vein Duplex Lower Extremity Right Limited Danette Gallegos NP Phone: tel: fax: [facility] [address] [place] [address] Phone: tel: fax: Referral ID Status Reason Start Date Expiration Date Visits Re quested Visits Authorized [id number] Closed 07/25/2019 02/02/2021 1 1 Encounter Details Date Type Department Care Team (Latest Contact Info) Description 07/25/2019 12:30 PM CDT - 07/25/2019 1:53 PM CDT Hospital Encounter [facility] [address] [place] [address] Jamar Valera MD [address] [place] [address] Danette Gallegos ENTEROSTOMAL THERAPY NURSE [address] [facility] [address] [place] [address] Lower extremity edema Discharge Disposition: Discharge to home or self care Social History Tobacco Use Types Packs/Day Years Used Date Smoking Tobacco: Never Smokeless Tobacco: Never Alcohol Use Standard Drinks/Week Comments No 0 (1 standard drink = 0.6 oz pur e alcohol) Sex and Gender Information Value Date Recorded Sex Assigned at Not on file 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 Ordering Phys: DANETTE GALLEGOS Age: 69 ?Date of : 1950 ? Accession Number: [id number] Date of Service: 07/25/2019 ??Gender: M EXAM DESCRIPTION: ??US VEIN DUPLEX LOWER EXTREMITY RIGHT LIMITED REASON FOR STUDY: ??right leg redness and swelling started 3-4 days agoDuration: 3-4 days TECHNIQUE: ??Duplex scan using the B-mode, spectral Doppler, and color-flow Doppler of the deep venous system of the right lower extremity was performed. Images stored on PACS. COMPARISON: ??None ??The common femoral, common femoral-saphenous vein confluence, visualized profunda femoral, superficial femoral, and popliteal veins are readily compressible with no intraluminal thrombus on eldrideg scale images. There is normal color and spectral Doppler signal, including augmentation. Greater saphenous vein appears patent. Visualized calf veins are patent. ??No right lower extremity deep venous thrombosis. THIS IS AN ELECTRONICALLY VERIFIED FINAL REPORT 07/25/2019 1:49 PM - Electronically signed by Damion Nelson M.D. AG: PHILLIP D: ??07/25/2019 1:49 PM T: ??07/25/2019 1:49 PM Report ID: [id number] Reading Location: ??[id number] Procedure Note Damion Nelson MD - 07/25/2019 [facility] Imaging Result Name: DARLENE ISAAC Ordering Phys: DANETTEJennie GALLEGOS Age: 69 Date of : 1950 Accession Number: [id number] Date of Service: 07/25/2019 Gender: M EXAM DESCRIPTION: US VEIN DUPLEX LOWER EXTREMITY RIGHT LIMITED REASON FOR STUDY: right leg redness and swelling started 3-4 days agoDuration: 3-4 days TECHNIQUE: Duplex scan using the B-mode, spectral Doppler, andcolor-flow Doppler of the deep venous system of the right lower extremity wasperformed. Images stored on PACS. COMPARISON: None The common femoral, common femoral-saphenous vein confluence, visualized profunda femoral, superficial femoral, and popliteal veinsare readily compressible with no intraluminal thrombus on eldridge scale images. There is normal color and spectral Doppler signal, includingaugmentation. Greater saphenous vein appears patent. Visualized calf veins are patent. No right lower extremity deep venous thrombosis. THIS IS AN ELECTRONICALLY VERIFIED FINAL REPORT 07/25/2019 1:49 PM - Electronically signed by Damion Nelson M.D. AG: AG Report ID: [id number] Reading Location: [id number] us Danette Livenkatderrick ENTEROSTOMAL THERAPY NURSE IMG US PROCEDURES Final Resu lt documented in this encounter Visit Diagnoses Diagnosis Lower extremity edema Edema documented in this encounter Care Teams Television Mechanic Relationship Specialty Start Date End Date Darlene Gardner MD [address] [place] [address] PCP - General 07/01/16 Kev Dey MD [address] [place] [address] Referring Physician Nephrology 05/10/19 Amelia Rodrigez DPM [address] [place] [address] Consulting Physician Foot and Ankle Surg 06/28/19 documented as of this encounter
--- OUTSIDE RECORDS SUMMARY | 2024-04-15 06:00 | XMS_ITS | Encounter Summary ---
Author Organization [facility] Address [address] [place] [address] Care Team Providers Care Stoper Name Role Phone Erwin Gardner MD Primary Care Provide r Kev Dey MD Unavailable [phone] Amelia Rodrigez DPM Unavailable [phone] Encounter Details Date Type Department Care Team (Late st Contact Info) Description 07/25/2019 Orders Only [facility] [address] [place] [address] Jamar Valera MD [address] [place] [address] Acute osteomyelitis of toe, left (CMS/HCC) (Primary Dx); On anticoagulant therapy Social History Tobacco Use Types Packs/Day Years Used Date Smoking Tobacco: Never Smokeless Tobacco: Never Alcohol Use Standard Drinks/Week Comments No 0 (1 standard drink = 0.6 oz pur e alcohol) Sex and Gender Information Value Date Recorded Sex Assigned at Not on file 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
--- OUTSIDE RECORDS SUMMARY | 2024-04-15 06:00 | XMS_ITS | Encounter Summary ---
Author Organization [facility] Medical Group Address [address] [place] [address] Care Team Providers Care Banbury Mixer Operator Name Role Phone Erwin Gardner MD Primary Care Provide r Kev Dey MD Unavailable [phone] Amelia Rodrigez DPM Unavailable Reason for Referral * Diagnostic Imaging (Routine) - Closed Specialty Diagnoses / Procedures Referred By Megan raymond Referred To Contact Diagnoses Lower extremity edema Procedures US Vein Duplex Lower Extremity Right Limited Gavino Gallegos NP Phone: tel: fax: [facility] [address] [facility] [address] [place] [address] Phone: tel: fax: Referral ID Status Reason Start Date Expiration Date Visits Re quested Visits Authorized [id number] Closed 07/25/2019 02/02/2021 1 1 Reason for Visit * Reason Comments RLE redness Encounter Details Date Type Department Care Team (Late st Contact Info) Description 07/25/2019 12:15 PM CDT Office Visit [facility] [address] [facility] [address] [place] [address] Gavino Gallegos, TRANSPORTATION MUSEUM HELPER [address] 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 male. Chief Complaint Chief Complaint Patient presents with ??? RLE redness HPI HPI Erwin Isaac is a 69-year old male with history of Afib, cardiomyopathy and non- healing left great toe ulceration who underwent debridement of the area with bone biopsy on 06/28/19. Bone culture grew mixed gram-positive organisms. We were in the process of arranging for 6 weeks of IV antibiotics. Patient saw Dr. Rodrigez this afternoon and cast was removed from left foot. His surgical wound has completely healed. Given appearance of surgical site and pathological report, suspect possible contamination of bone specimen. Dr. Rodrigez and Dr. Brooks discussed findings and agreed to withhold IV antibiotics at this time and start patient on low-dose oral cephalexin for the next 4 weeks. Patient had been off his warfarin for the past 4 days in preparation for PICC line placement. He reported that his left lower leg has been red and swollen for the past 3 days. He denies fevers, warmth to area, pain in calf, open areas, or injury. Past Medical History: Diagnosis Date ??? Adiposity [...] file Gets together: Not on file Attends nondenominational service: Not on file Active member of [...] for chills and fever. Respiratory: Negative for cough, shortness of breath and wheezing. Cardiovascular: Positive for leg swelling. Negative for chest pain. Gastrointestinal: Negative. Musculoskeletal: Negative. Skin: Negative for wound. Reports redness right lower leg Neurological: Negative. Hematological: Negative. Psychiatric/Behavioral: Negative. All other systems reviewed and are negative. Physical Exam Vitals signs reviewed. Constitutional: Appearance: Normal appearance. HENT: Head: Normocephalic. Cardiovascular: Rate and Rhythm: Normal rate and regular rhythm. Pulmonary: Effort: Pulmonary effort is normal. Breath sounds: Normal breath sounds. Skin: General: Skin is warm and dry. Findings: Erythema present. No lesion or rash. Comments: RLE edematous, erythema to distal right lower leg with possible componenet of chronic hyperpigmentation, no open areas or drainage, area cool to touch, non-tender Cast to left foot Neurological: General: No focal deficit present. Mental Status: He is alert and oriented to person, place, and time. Psychiatric: Mood and Affect: Mood normal. Behavior: Behavior normal. Thought Content: Thought content normal. Judgment: Judgment normal. Temp (!) 35.7 ??C (96.3 ??F) Wt 136.1 kg (300 lb) BMI 37.50 kg/m?? Diagnoses and all orders for this visit: Lower extremity edema (Primary) - US Vein Duplex Lower Extremity Right Limited; Future Erwin Isaac is a 69-year old male with history of Afib, cardiomyopathy and non- healing left great toe ulceration who underwent recent debridement and bone biopsy who is here for evaluation after bone biopsy grew mixed gram-positive organisms. We were in the process of arranging for 6 weeks of IV antibiotics. Patient had case removed this afternoon and surgical site had healed nicely. Given appearance of surgical site and pathological report, Dr. Rodrigez and Dr. Brooks have agreed to withhold IV antibiotics at this time. Patient was started on low-dose oral cephalexin for the next 4 weeks.We will follow-up with patient at that time. Venous duplex of right lower extremity this afternoon was negative for DVT. Instructed patient to elevate leg to reduce swelling. He has been instructed to resume warfarin. documented in this encounter Plan of Treatment Not on file documented as of this encounter Results * US Vein Duplex Lower Extremity Right Limited (07/25/2019 1:36 PM CDT) Anatomical Region Laterality Modality Vascular Right Ultrasound 07/25/2019 1:35 PM CDT Narrative 07/25/2019 1:52 PM CDT [facility] ?Imaging Result Name: ERWIN ISAAC ? Ordering Phys: GAVINO GALLEGOS Age: 69 ?Date of : 1950 ? Accession Number: [id number] Date of Service: 07/25/2019 ??Gender: M EXAM [...] signed by Damion Nelson M.D. AG: AG D: ??07/25/2019 1:49 PM T: ??07/25/2019 1:49 PM Report ID: [id number] Reading Location: ??[id number] Procedure Note Damion Nelson MD - 07/25/2019 [facility] Imaging Result Name: ERWIN ISAAC Ordering Phys: GAVINO GALLEGOS Age: 69 Date of : 1950 Accession Number: [id number] Date of Service: 07/25/2019 Gender: M EXAM [...] Damion Nelson M.D. AG: AG Report ID: [id number] Reading Location: [place] [address] [place] Gavino Gallegos TRANSPORTATION MUSEUM HELPER IMG US PROCEDURES Final Resu lt documented in this encounter Visit Diagnoses Diagnosis Lower extremity edema- Primary Edema Lower extremity edema Edema documented in this encounter Care Teams Banbury Mixer Operator Relationship Specialty Start Date End Date Erwin Gardner MD [address] [place] [address] PCP - General 07/01/16 Kev Dey MD [address] [place] [address] Referring Physician Nephrology 05/10/19 Amelia Rodrigez DPM [address] [place] [address] Consulting Physician Foot and Ankle Surg 06/28/19 documented as of this encounter
--- OUTSIDE RECORDS SUMMARY | 2024-04-15 06:00 | XMS_ITS | Encounter Summary ---
Author Organization [facility] Medical [facility] Address [address] [place] [address] Care Team Providers Care Second Grade Teacher Name Role Phone Erwin Gardner MD Primary Care Provide r Kev Dey MD Unavailable [phone] Amelia Rodrigez DPM Unavailable [phone] Encounter Details Date Type Department Care Team (Late st Contact Info) Description 12/23/2019 Telephone [facility] Cardiology [address] [facility] [address] [place] [address] Erwin Velasquez MD [address] [place] [address] Social History Tobacco Use Types Packs/Day Years Used Date Smoking Tobacco: Never Smokeless Tobacco: Never Alcohol Use Standard Drinks/Week Comments No 0 (1 standard drink = 0.6 oz pur e alcohol) Sex and Gender Information Value Date Recorded Sex Assigned at Not on file 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 * Telephone Encounter - Jane Vallejo - 12/23/2019 2:02 PM CDT Patient/and or Pharmacy calling to request refills on the following medications: spironolactone 50 ng tabs. Pt report his medication should state 1 a day 50 mg . Pharmacy: [facility] documented in this encounter Plan of Treatment Not on file documented as of this encounter Visit Diagnoses Not on filedocumented in this encounter Discontinued Medications Medication Sig Discontinue Reason Start Date End Da te spironolactone (ALDACTONE) 50 mg tablet Take 1 tablet (50 mg total) by mouth daily. Reorder 05/30/2018 12/23/2019 documented as of this encounter Care Teams Second Grade Teacher Relationship Specialty Start Date End Date Erwin Gardner MD [address] [place], [place] [id number] PCP - General 07/01/16 Kev Dey MD [address] [place] [address] Referring Physician Nephrology 05/10/19 Amelia Rodrigez DPM [address] [place] [address] Consulting Physician Foot and Ankle Surg 06/28/19 documented as of this encounter
--- OUTSIDE RECORDS SUMMARY | 2024-04-15 06:00 | XMS_ITS | Encounter Summary ---
Author Organization [facility] Healthcare Address [address] [place] [address] Care Team Providers Care Gage Maker Name Role Phone Erwin Gardner MD Primary Care Provide r Kev Dey MD Unavailable [phone] Amelia Rodrigez DPJose Unavailable [phone] Encounter Details Date Type Department Care Team (Latest Contact Info) Description 07/15/2019 11:02 AM CDT - 07/15/2019 11:59 PM CDT Hospital Encounter [facility] [address] [place] [address] Ever Tom, DPM [address] [place] [address] Discharge Disposition: Discharge to home or self care Social History Tobacco Use Types Packs/Day Years Used Date Smoking Tobacco: Never Smokeless Tobacco: Never Alcohol Use Standard Drinks/Week Comments No 0 (1 standard drink = 0.6 oz pur e alcohol) Sex and Gender Information Value Date Recorded Sex Assigned at Not on file 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
--- OUTSIDE RECORDS SUMMARY | 2024-04-15 06:00 | XMS_ITS | Encounter Summary ---
Author Organization [facility] Address [address] [place] [address] Care Team Providers Care Radiosonde Operator Name Role Phone Erwin Gardner MD Primary Care Provide r Kev Dey MD Unavailable [phone] Amelia Rodrigez DPM Unavailable [phone] Encounter Details Date Type Department Care Team (Latest Contact Info) Description 03/30/2020 Anticoagulation Visit [facility] Cardiology [address] [place] [address] Selena Starr RN Atrial fibrillation, unspecified type (CMS/HCC) Social History Tobacco Use Types Packs/Day Years Used Date Smoking Tobacco: Never Smokeless Tobacco: Never Alcohol Use Standard Drinks/Week Comments No 0 (1 standard drink = 0.6 oz pur e alcohol) Sex and Gender Information Value Date Recorded Sex Assigned at Not on file 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 Gender Identity Not on file Sexual Orientation Not on file documented as of this encounter Plan of Treatment Not on file documented as of this encounter Visit Diagnoses Diagnosis Atrial fibrillation, unspecified type (HCC) documented in this encounter Care Teams Radiosonde Operator Relationship Specialty Start Date End Date Erwin Gardner MD [address] [place] [address] PCP - General 07/01/16 Kev Dey MD [address] [place] [address] Referring Physician Nephrology 05/10/19 Amelia Rodrigez DPM [address] [place] [address] Consulting Physician Foot and Ankle Surg 06/28/19 documented as of this encounter
--- OUTSIDE RECORDS SUMMARY | 2024-04-15 06:00 | XMS_ITS | Encounter Summary ---
Author Organization [facility] Medical [facility] Address [address] [address] Care Team Providers Care Debate Director Name Role Phone Erwin Gardner MD Primary Care Provide r Kev Dey MD Unavailable [phone] Amelia RodrigezM Unavailable [phone] Reason for Visit * Reason Onset Date Comments coumadin instructions for picc line placement. 0 07/22/2019 Encounter Details Date Type Department Care Team (Late st Contact Info) Description 07/22/2019 Telephone [facility] Cardiology [address] [address] Chaz Alonso RN coumadin instructions for picc line placement. 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 No / Unsure 06/26/2019 9:10 AM CDT documented as of this encounter Miscellaneous Notes * Telephone Encounter - Vicky Ugalde RN - 07/22/2019 11:54 AM CDT Spoke with pt and gianni GROSSMAN, aware of plan, verbalized understanding * Telephone Encounter - Paulina Foley NP - 07/22/2019 11:45 AM CDT He may hold his warfarin beginning today, for Monday's procedure. He should resume warfarin as soonas possible after PICC is placed, and have INR check one week later. Thanks. * Telephone Encounter - Vicky Ugalde RN - 07/22/2019 11:30 AM CDT Spoke with CHAUNCEY archer at [facility]. She is hoping to plae the PCC line on Mon if possible. We angel let her know or notify the pt how long to hold the warfarin. She can be reached at [phone]. * Telephone Encounter - Chaz Alonso RN - 07/22/2019 11:21 AM CDT Pt is at [facility] and was supposed to get a picc line placement for osteomyelitis ofhis left toe. I called pt to go over his INR of 3.2 and he was saying he was needing to reduce or hold his coumadin so he can get his picc line placed by [facility]. I told him I would route this to the physician and give him a call back with instructions. documented in this encounter Plan of Treatment Not on file documented as of this encounter Visit Diagnoses Not on filedocumented in this encounter Care Teams Debate Director Relationship Specialty Start Date End Date Erwin Gardner MD [address] [place] [address] PCP - General 07/01/16 Kev Dey MD [address] [place] [address] Referring Physician Nephrology 05/10/19 Amelia Rodrigez DPM [address] [place] [address] Consulting Physician Foot and Ankle Surg 06/28/19 documented as of this encounter
--- OUTSIDE RECORDS SUMMARY | 2024-04-15 06:00 | XMS_ITS | Encounter Summary ---
Author Organization [facility] Medical Group Address [address] [address] Care Team Providers Care Fire Tower Keeper Name Role Phone Erwin Gardner MD Primary Care Provide r Kev Dey MD Unavailable [phone] Amelia Rodrigez DPM Unavailable [phone] Encounter Details Date Type Department Care Team (Late st Contact Info) Description 08/15/2019 Telephone [facility] Cardiology [address] [facility] [address], [place] [address] Arpit De MD [address] [facility] [address] [place] [address] Social History Tobacco Use Types Packs/Day Years Used Date Smoking Tobacco: Never Smokeless Tobacco: Never Alcohol Use Standard Drinks/Week Comments No 0 (1 standard drink = 0.6 oz pur e alcohol) Sex and Gender Information Value Date Recorded Sex Assigned at Not on file 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 * Telephone Encounter - Laura Chapin - 08/15/2019 11:36 AM CDT Patient needs a standing order faxed to [facility] in [place] for his PT/INR documented in this encounter Plan of Treatment Scheduled Orders Name Type Priority Associated Diagnoses Orde r Schedule Protime-INR Lab Routine Atrial fibrillation, unspecified type (CMS/HCC) weekly for 52 Occurrences starting 08/15/2019 until 08/14/2020 documented as of this encounter Visit Diagnoses Diagnosis Atrial fibrillation, unspecified type (HCC)- Primary documented in this encounter Care Teams Fire Tower Keeper Relationship Specialty Start Date End Date Erwin Gardner MD [address] [place] [address] PCP - General 07/01/16 Kev Dey MD [address] [place] [address] Referring Physician Nephrology 05/10/19 Amelia Rodrigez DPM [address] [place] [id number] Consulting Physician Foot and Ankle Surg 06/28/19 documented as of this encounter
--- OUTSIDE RECORDS SUMMARY | 2024-04-15 06:00 | XMS_ITS | Encounter Summary ---
Author Organization [facility] Healthcare Address [address] [place] [address] Care Team Providers Care Stationary Engineer Supervisor Name Role Phone Erwin Gardner MD Primary Care Provide r Kev Dey MD Unavailable [phone] Amelia Rodrigez DPM Unavailable [phone] Encounter Details Date Type Department Care Team (Latest Contact Info) Description 08/01/2019 1:56 PM CDT - 08/01/2019 11:59 PM CDT Hospital Encounter [facility] [address] [place] [address] Amelia Rodrigez, DPM [facility] [place] [address] Discharge Disposition: Discharge to home or self care Social History Tobacco Use Types Packs/Day Years Used Date Smoking Tobacco: Never Smokeless Tobacco: Never Alcohol Use Standard Drinks/Week Comments No 0 (1 standard drink = 0.6 oz pur e alcohol) Sex and Gender Information Value Date Recorded Sex Assigned at Not on file 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
--- OUTSIDE RECORDS SUMMARY | 2024-04-15 06:00 | XMS_ITS | Encounter Summary ---
Author Organization [facility] Healthcare Address [address] [place] [address] Care Team Providers Care Neonatal Icu Coordinator Name Role Phone Erwin Gardner MD Primary Care Provide r Kev Dey MD Unavailable [phone] Amelia Rodrigez DPM Unavailable [phone] Encounter Details Date Type Department Care Team (Latest Contact Info) Description 07/25/2019 1:54 PM CDT - 07/25/2019 11:59 PM CDT Hospital Encounter [facility] [address] [place] [address] Amelia Rodrigez, DPM [place] [address] Discharge Disposition: Discharge to home or self care Social History Tobacco Use Types Packs/Day Years Used Date Smoking Tobacco: Never Smokeless Tobacco: Never Alcohol Use Standard Drinks/Week Comments No 0 (1 standard drink = 0.6 oz pur e alcohol) Sex and Gender Information Value Date Recorded Sex Assigned at Not on file 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
--- OUTSIDE RECORDS SUMMARY | 2024-04-15 06:00 | XMS_ITS | Encounter Summary ---
Author Organization [facility] Medical Group Address [address] [facility] [address] [place] [address] Care Team Providers Care Interactive Art Director Name Role Phone Erwin Gardner MD Primary Care Provide r Kev Dey MD Unavailable [phone] Amelia Rodrigez DPM Unavailable [phone] Encounter Details Date Type Department Care Team (Late st Contact Info) Description 05/11/2020 Telephone [facility] Cardiology [address] [facility] [address] [place] [address] Erwin Velasquez MD [address] [place] [address] Social History Tobacco Use Types Packs/Day Years Used Date Smoking Tobacco: Never Smokeless Tobacco: Never Alcohol Use Standard Drinks/Week Comments No 0 (1 standard drink = 0.6 oz pur e alcohol) Sex and Gender Information Value Date Recorded Sex Assigned at Not on file Legal 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 Male 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 Gender Identity Not on file Sexual Orientation Not on file documented as of this encounter Ordered Prescriptions Prescription Sig Dispense Quantity Refills Last Filled Start Date End Date furosemide (LASIX) 80 mg tablet Take 1.5 tablets (120 mg total) by mouth daily 135 tablet 2 05/11/2020 1 documented in this encounter Miscellaneous Notes * Telephone Encounter - Leigh King MA - 05/11/2020 10:19 AM WAREHOUSE EXAMINER Sent to pharmacy HOUSE EXAMINER * Telephone Encounter - Janelle Beltran - 05/11/2020 9:05 AM CST Patient/and or Pharmacy calling to request refills on the following medications:Furosemide 80 mg Pt is out of this medication. Pharmacy:[facility] in [facility] [place] HOUSE EXAMINER documented in this encounter Plan of Treatment Not on file documented as of this encounter Visit Diagnoses Not on filedocumented in this encounter Discontinued Medications Medication Sig Discontinue Reason Start Date End Da te furosemide (LASIX) 80 mg tablet Take 1.5 tablets (120 mg total) by mouth daily Reorder 05/29/2019 05/11/2020 documented as of this encounter Care Teams Interactive Art Director Relationship Specialty Start Date End Date Erwin Gardner MD [address] [place] [address] PCP - General 07/01/16 Kev Dey MD [address] [place] [address] Referring Physician Nephrology 05/10/19 Amelia Rodrigez DPM [address] [place] [address] Consulting Physician Foot and Ankle Surg 06/28/19 documented as of this encounter
--- OUTSIDE RECORDS SUMMARY | 2024-04-15 06:00 | XMS_ITS | Encounter Summary ---
Author Organization [facility] Address [address] [address] Care Team Providers Care Literacy Consultant Name Role Phone Erwin Gardner MD Primary Care Provide r Kev Dey MD Unavailable [phone] Amelia Rodrigez DPM Unavailable [phone] Encounter Details Date Type Department Care Team (Latest Contact Info) Description 11/14/2019 Anticoagulation Visit [facility] Cardiology [address] [address] Erwin Velasquez MD [address] [address] Atrial fibrillation (CMS/HCC) Social History Tobacco Use Types Packs/Day Years Used Date Smoking Tobacco: Never Smokeless Tobacco: Never Alcohol Use Standard Drinks/Week Comments No 0 (1 standard drink = 0.6 oz pur e alcohol) Sex and Gender Information Value Date Recorded Sex Assigned at Not on file 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 Gender Identity Not on file Sexual Orientation Not on file documented as of this encounter Plan of Treatment Not on file documented as of this encounter Visit Diagnoses Diagnosis Atrial fibrillation (CMS/HCC) (HCC) Atrial fibrillation documented in this encounter Care Teams Literacy Consultant Relationship Specialty Start Date End Date Erwin Gardner MD [address] [place] [address] PCP - General 07/01/16 Kev Dey MD [address] [place] [address] Referring Physician Nephrology 05/10/19 Amelia Rodrigez DPM [address] [place] [address] Consulting Physician Foot and Ankle Surg 06/28/19 documented as of this encounter
--- OUTSIDE RECORDS SUMMARY | 2024-04-15 06:00 | XMS_ITS | Encounter Summary ---
Author Organization [facility] Address [address] [facility] [address] [place] [address] Care Team Providers Care Nuclear Operations Specialist Name Role Phone Erwin Gardner MD Primary Care Provide r Kev Dey MD Unavailable [phone] Amelia RodrigezM Unavailable [phone] Encounter Details Date Type Department Care Team (Late st Contact Info) Description 05/27/2020 Telephone [facility] Cardiology [address] [facility] [address] [place] [address] Erwin Velasquez MD [address] [place] [address] [place] [address] Social History Tobacco Use Types Packs/Day Years Used Date Smoking Tobacco: Never Smokeless Tobacco: Never Alcohol Use Standard Drinks/Week Comments No 0 (1 standard drink = 0.6 oz pur e alcohol) Sex and Gender Information Value Date Recorded Sex Assigned at Not on file Legal Sex Male 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 He wondered if the covid vaccine caused his INR to elevate, I have not noticed that , but we have made adjustments and will see in one week. OMER CARE REPRESENTATIVE * Telephone Encounter - Janelle Beltran - 05/27/2020 9:18 AM CST Pt has requested a return call to discuss his INR. Pt also wanted to make the RN aware that he has had the covid vaccine. cb [phone] OMER CARE REPRESENTATIVE documented in this encounter Plan of Treatment Not on file documented as of this encounter Visit Diagnoses Not on filedocumented in this encounter Care Teams Nuclear Operations Specialist Relationship Specialty Start Date End Date Erwin Gardner MD [address] [place] [address] PCP - General 07/01/16 Kev Dey MD [address] [place] [address] Referring Physician Nephrology 05/10/19 Amelia Rodrigez DPM [address] [place] [address] Consulting Physician Foot and Ankle Surg 06/28/19 documented as of this encounter
--- OUTSIDE RECORDS SUMMARY | 2024-04-15 06:00 | XMS_ITS | Encounter Summary ---
Author Organization [facility] Address [address] [place] [address] Phone Care Team Providers Care Laborer Tanbark Name Role Phone Erwin Gardner MD Primary Care Provide r Kev Dey MD Unavailable [phone] Amelia RodrigezM Unavailable [phone] Encounter Details Date Type Department Care Team (Late st Contact Info) Description 07/22/2019 Orders Only [facility] [address] [place] [address] Crys Yancey RPh Acute osteomyelitis of left ankle or foot (CMS/HCC) (Primary Dx) Social History Tobacco Use Types Packs/Day Years Used Date Smoking Tobacco: Never Smokeless Tobacco: Never Alcohol Use Standard Drinks/Week Comments No 0 (1 standard drink = 0.6 oz pur e alcohol) Sex and Gender Information Value Date Recorded Sex Assigned at Not on file 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 No / Unsure 06/26/2019 9:10 AM CDT documented as of this encounter Progress Notes * Crys Yancey RPh - 07/22/2019 2:01 PM CDT Per faxed orders/Dr Weiss/Crys Yancey pharmD USP visit 1 to 2 times per week for 7 weeks for patient assessment, teaching, IV catheter care, and lab work. Maintain IV access PICC Line with 10ml normal saline and 5ml heparin 50units/5ml for patency per established protocol. Ertapenem 1gm in Normal Saline 100mL, infuse intravenously over 60 minutes every 24 hours by Elastomeric Device at 100mL/hr. Patient will receive picc placement on Monday07/26/19 and first dose of IVantibiotics at the same time. LOT 6 weeks ~ 09/06/19 Labs - Weekly CBC, BMP and ESR. Please fax results to Dr. Weiss at [phone] and to [facility] at [phone]. Please have first set of labs drawn at start of care on Monday07/27/19 documented in this encounter Plan of Treatment Not on file documented as of this encounter Visit Diagnoses Diagnosis Acute osteomyelitis of left ankle or foot (HCC)- Primary documented in this encounter Historical Medications * This list may reflect changes made after this encounter. heparin (heparin flush) 10 unit/mL syringeIndicatio ns:Maintain Patency of Indwelling Vascular Catheter Administer 50 Units into catheter as needed (line care) 07/26/2019 0 sodium chloride 0.9% injection Infuse 10 mL into a venous catheter as needed for line care 07/26/2019 0 ertapenem (INVANZ) 1 gram recon soln Inject 1,000 mg into the muscle as instructed daily Patient to infuse 1000mg ertapenem every 24 hours IV via elastomeric device 07/26/2019 0 added in this encounter Care Teams Laborer Tanbark Relationship Specialty Start Date End Date Erwin Gardner MD [address] [place] [address] PCP - General 07/01/16 Kev Dey MD [address] [place] [address] Referring Physician Nephrology 05/10/19 Amelia Rodrigez DPM [address] [place] [address] Consulting Physician Foot and Ankle Surg 06/28/19 documented as of this encounter
--- OUTSIDE RECORDS SUMMARY | 2024-04-15 06:00 | XMS_ITS | Encounter Summary ---
Author Organization [facility] Address [address] [address] Care Team Providers Care Smoking Pipe Repairer Name Role Phone Erwin Gardner MD Primary Care Provide r Kev Dey MD Unavailable [phone] Amelia Rodrigez DPM Unavailable [phone] Encounter Details Date Type Department Care Team (Latest Contact Info) Description 07/22/2019 Anticoagulation Visit [facility] Cardiology [address] [address] Chaz Alonso RN Atrial fibrillation, unspecified type (CMS/HCC) Social History Tobacco Use Types Packs/Day Years Used Date Smoking Tobacco: Never Smokeless Tobacco: Never Alcohol Use Standard Drinks/Week Comments No 0 (1 standard drink = 0.6 oz pur e alcohol) Sex and Gender Information Value Date Recorded Sex Assigned at Not on file Legal 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
--- OUTSIDE RECORDS SUMMARY | 2024-04-15 06:01 | XMS_ITS | Encounter Summary ---
Author Organization [facility] Address [address] [facility] [address] [place] [address] Care Team Providers Care Dining Room Server Name Role Phone Erwin Gardner MD Primary Care Provide r Encounter Details Date Type Department Care Team (Latest Contact Info) Description 09/06/2018 Anticoagulation Visit [facility] [address] [address] Erwin Velasquez MD [address] [facility] [address] [place] [address] Chronic atrial fibrillation (CMS/HCC) Social History Tobacco Use Types Packs/Day Years Used Date Smoking Tobacco: Never Smokeless Tobacco: Never Alcohol Use Standard Drinks/Week Comments No 0 (1 standard drink = 0.6 oz pur e alcohol) Sex and Gender Information Value Date Recorded Sex Assigned at Not on file Legal 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
--- OUTSIDE RECORDS SUMMARY | 2024-04-15 06:01 | XMS_ITS | Encounter Summary ---
Author Organization [facility] Address [address] [address] Care Team Providers Care Flight Communications Officer Name Role Phone Erwin Gardner MD Primary Care Provide r Encounter Details Date Type Department Care Team (Latest Contact Info) Description 04/26/[address] 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
--- OUTSIDE RECORDS SUMMARY | 2024-04-15 06:01 | XMS_ITS | Encounter Summary ---
Author Organization [facility] Address [address] [place] [address] Care Team Providers Care Hand Sample Maker Name Role Phone Erwin Gardner MD Primary Care Provide r Kev Dey MD Unavailable [phone] Encounter Details Date Type Department Care Team (Latest Contact Info) Description 05/30/2019 1:57 PM SPRING COILING MACHINE SETTER - 05/30/2019 11:59 PM SPRING COILING MACHINE SETTER Hospital Encounter [facility] [address] [place] [address] Amelia Rodrigez, DPM [address] [place] [address] Discharge Disposition: Discharge to home or self care Social History Tobacco Use Types Packs/Day Years Used Date Smoking Tobacco: Never Smokeless Tobacco: Never Alcohol Use Standard Drinks/Week Comments No 0 (1 standard drink = 0.6 oz pur e alcohol) Sex and Gender Information Value Date Recorded Sex Assigned at Not on file Legal Sex Male 11:57 AM SPRING COILING MACHINE SETTER Gender Identity Not on file Sexual Orientation Not on file documented as of this encounter Medications at Time of Discharge insulin regular (HumuLIN R, NovoLIN R) 100 unit/mL injectionIndicati ons:type 2 diabetes mellitus Inject under the skin 3 (three) times a day before meals Sliding scale ULTICARE 1 mL 30 gauge x 1/2 syringe 05/24/2017 atorvastatin (LIPITOR) 20 mg tablet Take 1 tablet (20 mg total) by mouth daily 90 tablet 3 10/22/2018 11/22/2019 carvediloL (COREG) 25 mg tablet Take 1 tablet (25 mg total) by mouth 2 (two) times a day with meals 180 tablet 3 05/10/2019 06/26/2019 fenofibrate (TRIGLIDE) 160 mg tablet Take 1 tablet (160 mg total) by mouth daily 90 tablet 3 04/23/2019 06/01/2020 furosemide (LASIX) 80 mg tablet Take 1.5 tablets (120 mg total) by mouth daily 135 tablet 3 05/29/2019 05/11/2020 losartan (COZAAR) 50 mg tablet Take 1 tablet (50 mg total) by mouth daily 90 tablet 3 05/10/2019 05/13/2020 potassium chloride ER (potassium chloride ER) 20 mEq CR tablet Take 1 tablet (20 mEq total) by mouth daily 90 tablet 3 05/29/2019 05/27/2020 spironolactone (ALDACTONE) 50 mg tablet Take 1 tablet (50 mg total) by mouth daily. 90 tablet 3 05/30/2018 12/23/2019 warfarin (COUMADIN) 5 mg tablet Take 1 tablet (5 mg total) by mouth once for 1 dose 90 tablet 01/28/2019 06/26/2019 documented as of this encounter Discharge Disposition Disposition Code Departure Means Destination Discharge to home or self care documented in this encounter Plan of Treatment Not on file documented as of this encounter Visit Diagnoses Not on filedocumented in this encounter Care Teams Hand Sample Maker Relationship Specialty Start Date End Date Erwin Gardner MD [address] [place] [address] PCP - General 07/01/16 Kev Dey MD [address] [place] [address] Referring Physician Nephrology 05/10/19 documented as of this encounter
--- OUTSIDE RECORDS SUMMARY | 2024-04-15 06:01 | XMS_ITS | Encounter Summary ---
Author Organization [facility] Healthcare Address [address] [place] [address] Care Team Providers Care Part Time Flexible Clerk Name Role Phone Erwin Gardner MD Primary Care Provide r Kev Dey MD Unavailable [phone] Encounter Details Date Type Department Care Team (Late st Contact Info) Description 06/13/2019 3:15 PM CDT [address] [address] Social History Tobacco Use Types Packs/Day Years Used Date Smoking Tobacco: Never Smokeless Tobacco: Never Alcohol Use Standard Drinks/Week Comments No 0 (1 standard drink = 0.6 oz pur e alcohol) Sex and Gender Information Value Date Recorded Sex Assigned at Not on file 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
--- OUTSIDE RECORDS SUMMARY | 2024-04-15 06:01 | XMS_ITS | Encounter Summary ---
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
--- OUTSIDE RECORDS SUMMARY | 2024-04-15 06:01 | XMS_ITS | Encounter Summary ---
Author Organization [facility] Address [address] [place] [address] Phone Care Team Providers Care Brew House Supervisor Name Role Phone Erwin Gardner MD Primary Care Provide r Kev Dey MD Unavailable [phone] Reason for Visit * Reason Comments Follow-up Encounter Details Date Type Department Care Team (Late st Contact Info) Description 05/10/2019 9:00 AM GUN BARREL FINISHER Office Visit [facility] [address] [place] [phone] German Leonardo MD [address] [place] [id number] MGUS (monoclonal gammopathy of unknown significance) (Primary Dx); Multiple myeloma not having achieved remission (CMS/HCC) Social History Tobacco Use Types Packs/Day Years Used Date Smoking Tobacco: Never Smokeless Tobacco: Never Alcohol Use Standard Drinks/Week Comments No 0 (1 standard drink = 0.6 oz pur e alcohol) Sex and Gender Information Value Date Recorded Sex Assigned at Not on file Legal Sex Male 11:57 AM GUN BARREL FINISHER Gender Identity Not on file Sexual Orientation Not on file documented as of this encounter Last Filed Vital Signs Vital Sign Reading Time Taken Comments Blood Pressure 101/73 05/10/2019 8:35 AM GUN BARREL FINISHER Pulse 83 05/10/2019 8:35 AM GUN BARREL FINISHER Temperature 36.6 ??C (97.9 ??F) 05/10/2019 8:35 AM CS T Respiratory Rate 16 05/10/2019 8:35 AM GUN BARREL FINISHER Oxygen Saturation 97% 05/10/2019 8:35 AM GUN BARREL FINISHER Inhaled Oxygen Concentration - - Weight 141 kg (310 lb 12.8 oz) 05/10/2019 8:35 A M GUN BARREL FINISHER Height 188 cm (6' 2.02 ) 05/10/2019 8:35 AM GUN BARREL FINISHER Body Mass Index 39.89 05/10/2019 8:35 AM GUN BARREL FINISHER documented in this encounter Progress Notes * Angelica Florian, HOT SEALING 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 - 05/10/2019 9:00 AM CST Medical Oncology Clinic Note Visit Date: 05/10/2019 Requesting Provider: Dr. Tiburcio MD Primary Care Physician: MD Erwin Espinoza [facility] 69 y.o. male Chief Complaint : The patient returns today for reassessment and further recommendations regarding further evaluationand management of his MGUS . HPI: 05/10/2019: Patient returns for routine office visit for MGUS and discussion of his lab results. Patient voicesno concerns today. He denies fatigue, SOB, change in appetite, abdominal pain, nausea, vomiting andchange in stool pattern. He has chronic kidney disease and is managed closely Dr. Dey, workers compensation administrator- patient spoke with his workers compensation administrator. He reports Dr. Dey feels his kidney disease is related more to his Diabetes and Hypertension and is not planning to perform kidney biopsy at this time. Assessment: 1. MGUS (2017) 2. Labs reviewed and stable. 3. Patient is 3 years out from diagnosis. Patient is aware that his body makes more protein and that he is at the same general risk of the normal population for developing myeloma. Plan: 1. He will be discharged from Dr. Leonardo's practice. 2. Patient is aware we would like Dr. Dey to annually draw CBC,CMP, KAPPA/LAMBDA LIGHT CHAIN ratio, and a Protein Electrophoresis. 3. Patient is aware if he should have any questions or concerns he can call Dr. Leonardo's office. [facility] in collaboration with Dr. Leonardo [facility] PHYSICIAN ATTESTATION -- I have reviewed the patient's history and physical exam with our nurse practitioner today. I reviewed with her the laboratory findings, radiographic findings, and significant past history. We reviewed the outpatient problems and addressed those as relevant to hematology/oncology. My LINUX UNIX SYSTEM ADMINISTRATOR and I formulated an assessment and plan, which I support, as outlined in her note. German Leonardo M.D. Patient Active Problem List Diagnosis ??? Atrial fibrillation (CMS/HCC) [I48.91] ??? Cardiomyopathy, idiopathic (CMS/HCC) ??? MGUS (monoclonal gammopathy of unknown significance) Hematology History: The patient is a 66-year-old male who was seen by Dr. Dey on 02/17/16 for evaluation of chronic kidney disease. He was found to have a mild anemia with hemoglobin of 11.9 g/dL. His creatinine was 1.8 mg/dL. His creatinine clearance was 40 mL per minute and a 24 urine collection. His 24 urine collection also revealed 100 mg/dL of protein. Most importantly however his serum immunofixation revealed an IgG lambda monoclonal paraprotein. He was referred to me on 04/05/16, for my opinion and recommendations regarding his abnormal immunofixation of the serum. I ordered a number of laboratory studies and asked him to return in about 3 weeks. 04/26/16--the patient returns today for reassessment. He is here also to review his laboratory studies. His serum creatinine was 1.91 mg/dL with a BUN of 41 mg/dL. His serum protein electrophoresis revealed an abnormal protein band quantitated at 0.6 g/dL His kappa light chains were slightly elevated at 33.8 with lambda light chains also elevated at 43.9 with a normal ratio. His hemoglobin was 12.1 g/dL with hematocrit 37%. A beta 2 microglobulin was 5.27 mg/L. 09/27/16--The patient returns today for reassessment and further recommendations he has no new complaints. 04/18/17 - - He returns in every assessment. He has had no hospitalizations. His blood sugars have been a bit elevated. He just had his left wrist is drawn yesterday. 10/17/2017--The patient returns today for reassessment and further recommendations regarding furtherevaluation and management with no new complaints. Review the patient's laboratory studies showed a serum creatinine has improved and his M protein is actually better. His hemoglobin is quite stable. 04/17/2018 -- The patient returns today for reassessment and further recommendations regarding further evaluation and management with no new complaints. Laboratory results performed at the [facility] on 10/24/2018 were reviewed and summarizedhere: 1. Serum creatinine = 1.9 mg/dL 2. BUN = 27 mg/dL 3. Estimated GFR = 35 4. Total protein = 7.2 5. Albumin = 3.9 6. Globulin = 3.3 7. Calcium normal at 9.3 8. Free kappa light chains = 39.3 (3.3-19) 9. Lambda light chains = 80.3 (5.7-26.3) 10. K/L ratio = 0.49 11. SPEP M protein = 0.9 grams/deciliter 12. Hemoglobin = 11.4 grams/deciliter 13. Hematocrit = 35% 14. WBC and platelet count normal Review of Systems Review of systems positive for symptoms as per interval history. All other review of systems negative. Objective Vitals BP 101/73 (BP Location: Left arm) Pulse 83 Temp 36.6 ??C (97.9 ??F) (Oral) Resp 16 Ht 188 cm (6' 2.02 ) Wt (!) 141 kg (310 lb 12.8 oz) SpO2 97% BMI 39.89 kg/m?? Physical Exam Vitals signs reviewed. Constitutional: General: He is not in acute distress. Appearance: He is well-developed. He is not diaphoretic. HENT: Head: Normocephalic and atraumatic. Right Ear: External ear normal. Left Ear: External ear normal. Nose: Nose normal. Eyes: General: No scleral icterus. Conjunctiva/sclera: Conjunctivae normal. Pupils: Pupils are equal, round, and reactive to light. Neck: Musculoskeletal: Normal range of motion and neck supple. Thyroid: No thyromegaly. Vascular: No JVD. Trachea: No tracheal deviation. Cardiovascular: Rate and Rhythm: Normal rate and regular rhythm. Heart sounds: Normal heart sounds. No murmur. No friction rub. No gallop. Pulmonary: Effort: Pulmonary effort is normal. No respiratory distress. Breath sounds: Normal breath sounds. No wheezing or rales. Chest: Chest wall: No tenderness. Abdominal: General: Bowel sounds are normal. There is no distension. Palpations: Abdomen is soft. There is no mass. Tenderness: There is no tenderness. There is no guarding. Musculoskeletal: Normal range of motion. Right lower leg: Edema present. Left lower leg: Edema present. Lymphadenopathy: Cervical: No cervical adenopathy. Skin: General: Skin is warm and dry. Coloration: Skin is not pale. Findings: No erythema or rash. Neurological: Mental Status: He is alert and oriented to person, place, and time. Cranial Nerves: No cranial nerve deficit. Sensory: No sensory deficit. Motor: No abnormal muscle tone. Coordination: Coordination normal. Deep Tendon Reflexes: Reflexes normal. Psychiatric: Behavior: Behavior normal. Thought Content: Thought content normal. Judgment: Judgment normal. Lab/Radiology/Diagnostic Review: Recent Results (from the past 672 hour(s)) KAPPA/LAMBDA LIGHT CHAINS FREE WITH RATIO, SERUM Collection Time: 04/25/19 9:10 AM Result Value Ref Range [place] light chain, free 32.5 (H) 3.3 - 19.4 mg/L Lambda light chain, free 77.1 (H) 5.7 - 26.3 mg/L [place]/Lambda light chains free with ratio 0.42 0.26 - 1.65 CBC with auto differential Collection Time: 04/25/19 9:10 AM Result Value Ref Range WBC 6.8 3.8 - 10.8 Thousand/uL RBC, POC 3.96 (L) 4.20 - 5.80 Million/uL Hgb 11.7 (L) 13.2 - 17.1 g/dL Hct 36.0 (L) 38.5 - 50.0 % MCV 90.9 80.0 - 100.0 fL MCH 29.5 27.0 - 33.0 pg MCHC 32.5 32.0 - 36.0 g/dL Rdw 13.1 11.0 - 15.0 % Platelets 214 140 - 400 Thousand/uL MPV 11.7 7.5 - 12.5 fL Neutrophils, abs 4,196 1,500 - 7,800 cells/uL Neutrophil bands, abs CANCELED 0 - 750 cells/uL Metamyelocytes, abs CANCELED 0 cells/uL Myelocytes, abs CANCELED 0 cells/uL Promyelocytes, abs CANCELED 0 cells/uL Lymphocytes, abs 1,782 850 - 3,900 cells/uL Monocyte abs 571 200 - 950 cells/uL Eosinophils, abs 190 15 - 500 cells/uL Basophils, abs 61 0 - 200 cells/uL Blast, cell CANCELED 0 cells/uL NRBC abs CANCELED 0 cells/uL Neutrophils 61.7 % Neutrophilic bands CANCELED % Neutrophilic metamyelocytes CANCELED % Myelocytes CANCELED % Neutrophilic promyelocytes CANCELED % Lymphocyte pct 26.2 % Reactive lymph CANCELED 0 - 10 % Monocytes 8.4 % Eosinophils 2.8 % Basophils 0.9 % Blasts CANCELED % NRBC CANCELED 0 /100 WBC Comment CANCELED Comprehensive metabolic panel Collection Time: 04/25/19 9:10 AM Result Value Ref Range Glucose 281 (H) 65 - 99 mg/dL BUN 38 (H) 7 - 25 mg/dL Creatinine 1.86 (H) 0.70 - 1.25 mg/dL eGFR NON-AFR. POLISH 36 (L) > OR = 60 mL/min/1.73m2 EGFR 42 (L) > OR = 60 mL/min/1.73m2 BUN/creat ratio 20 6 - 22 (calc) Sodium 137 135 - 146 mmol/L Potassium, pl 4.3 3.5 - 5.3 mmol/L Chloride 98 98 - 110 mmol/L CO2 30 20 - 32 mmol/L Calcium 9.4 8.6 - 10.3 mg/dL Protein, sr 6.9 6.1 - 8.1 g/dL Albumin 4.1 3.6 - 5.1 g/dL GLOBULIN 2.8 1.9 - 3.7 g/dL (calc) Alb/glob ratio 1.5 1.0 - 2.5 (calc) Bilirubin, total 0.5 0.2 - 1.2 mg/dL Alk phos 71 40 - 115 U/L AST 13 10 - 35 U/L ALT (SGPT) 15 9 - 46 U/L Protein Electrophoresis, With Reflex, Serum Collection Time: 04/25/19 9:10 AM Result Value Ref Range Protein, sr 6.9 6.1 - 8.1 g/dL ALBUMIN 3.8 3.8 - 4.8 g/dL Alpha-1 Globulin 0.2 0.2 - 0.3 g/dL Alpha-2 Globuliin 0.7 0.5 - 0.9 g/dL Beta 1 globulin 0.5 0.4 - 0.6 g/dL Beta 2 globulin 0.4 0.2 - 0.5 g/dL Gamma globulin 1.3 0.8 - 1.7 g/dL Abnormal protein band 0.9 (H) NONE DETECTED g/dL Abnormal protein band 2 CANCELED NONE DETECTED g/dL Abnormal protein band 3 CANCELED NONE DETECTED g/dL SPE, interp Protime-INR Collection Time: 04/25/19 9:12 AM Result Value Ref Range INR 2.0 (H) PT 20.9 (H) 9.0 - 11.5 sec BARREL FINISHER BARREL FINISHER documented in this encounter Plan of Treatment Not on file documented as of this encounter Visit Diagnoses Diagnosis MGUS (monoclonal gammopathy of unknown significance)- Primary Monoclonal paraproteinemia Multiple myeloma not having achieved remission (CMS/HCC) (HCC) documented in this encounter Orders Appointment Requests Count Last Ordered Date Fi rst Ordered Date ONCBCN CLINIC APPOINTMENT REQUEST 1 020 documented in this encounter Care Teams Brew House Supervisor Relationship Specialty Start Date End Date Erwin Gardner MD [address] [place] [address] PCP - General 07/01/16 Kev Dey MD [address] [place] [id number] Referring Physician Nephrology 05/10/19 documented as of this encounter
--- OUTSIDE RECORDS SUMMARY | 2024-04-15 06:01 | XMS_ITS | Encounter Summary ---
Author Organization [facility] Address [address] [place] [address] Care Team Providers Care Junior Manufacturing Engineer Name Role Phone Erwin Gardner MD Primary Care Provide r Encounter Details Date Type Department Care Team (Latest Contact Info) Description 08/14/2018 Anticoagulation Visit [facility] [address] [phone] Erwin Velasquez MD [address] [facility] [address] [place] [address] Chronic atrial fibrillation (CMS/HCC) Social History Tobacco Use Types Packs/Day Years Used Date Smoking Tobacco: Never Smokeless Tobacco: Never Alcohol Use Standard Drinks/Week Comments No 0 (1 standard drink = 0.6 oz pur e alcohol) Sex and Gender Information Value Date Recorded Sex Assigned at Not on file Legal Sex Male 11:57 AM JEWELRY REPAIRER Gender Identity Not on file Sexual Orientation Not on file documented as of this encounter Plan of Treatment Not on file documented as of this encounter Visit Diagnoses Diagnosis Chronic atrial fibrillation (HCC) Atrial fibrillation documented in this encounter Care Teams Junior Manufacturing Engineer Relationship Specialty Start Date End Date Erwin Gardner MD [address] [place] [address] PCP - General 07/01/16 documented as of this encounter
--- OUTSIDE RECORDS SUMMARY | 2024-04-15 06:01 | XMS_ITS | Encounter Summary ---
Author Organization [facility] Care Team Providers Care Traffic Checker Name Role Phone Erwin Gardner MD Primary Care Provide r Kev Dey MD Unavailable [phone] Encounter Details Date Type Department Care Team (Latest Contact Info) Description 06/26/2019 Travel Social History Tobacco Use Types Packs/Day Years Used Date Smoking Tobacco: Never Smokeless Tobacco: Never Alcohol Use Standard Drinks/Week Comments No 0 (1 standard drink = 0.6 oz pur e alcohol) Sex and Gender Information Value Date Recorded Sex Assigned at Not on file Legal Sex Male 11:57 AM CHEESE SPRAYER Gender Identity Not on file Sexual Orientation [...] on filedocumented in this encounter Care Teams Traffic Checker Relationship Specialty Start Date End Date Erwin Gardner MD [address] [place] [address] PCP - General 07/01/16 Kev Dey MD [address] [place] [address] Referring Physician Nephrology 05/10/19 documented as of this encounter
--- OUTSIDE RECORDS SUMMARY | 2024-04-15 06:01 | XMS_ITS | Encounter Summary ---
Author Organization [facility] Address [address] [place] [address] Care Team Providers Care Door Maker Name Role Phone Erwin Gardner MD Primary Care Provide r Encounter Details Date Type Department Care Team (Latest Contact Info) Description 03/05/2019 Anticoagulation Visit [facility] [address] [phone] Erwin Velasquez MD [address] [facility] [address] [place] [address] Atrial fibrillation, unspecified type (CMS/HCC) Social History Tobacco Use Types Packs/Day Years Used Date Smoking Tobacco: Never Smokeless Tobacco: Never Alcohol Use Standard Drinks/Week Comments No 0 (1 standard drink = 0.6 oz pur e alcohol) Sex and Gender Information Value Date Recorded Sex Assigned at Not on file Legal Sex Male 11:57 AM MEETING MANAGER Gender Identity Not on file Sexual Orientation Not on file documented as of this encounter Plan of Treatment Not on file documented as of this encounter Visit Diagnoses Diagnosis Atrial fibrillation, unspecified type (HCC) documented in this encounter Care Teams Door Maker Relationship Specialty Start Date End Date Erwin Gardner MD [address] [place] [address] PCP - General 07/01/16 documented as of this encounter
--- OUTSIDE RECORDS SUMMARY | 2024-04-15 06:01 | XMS_ITS | Encounter Summary ---
Author Organization [facility] Healthcare Address [address] [place] [address] Care Team Providers Care Biomedical Instrument Technician Name Role Phone Darlene Gardner MD Primary Care Provide r Kev Dey MD Unavailable [phone] Amelia Rodrigez DPM Unavailable [phone] Encounter Details Date Type Department Care Team (Latest Contact Info) Description 06/28/2019 8:55 AM CDT - 06/28/2019 2:19 PM CDT Hospital Encounter [facility] Operating Room [address] [place] [address] Amelia Rodrigez, DPM [address] [place] [address] Osteomyelitis of left foot, unspecified type (CMS/HCC) Discharge Disposition: Discharge to home or self care Social History Tobacco Use Types Packs/Day Years Used Date Smoking Tobacco: Never Smokeless Tobacco: Never Alcohol Use Standard Drinks/Week Comments No 0 (1 standard drink = 0.6 oz pur e alcohol) Sex and Gender Information Value Date Recorded Sex Assigned at Not on file 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 No / Unsure 06/26/2019 9:10 AM CDT documented as of this encounter Last Filed Vital Signs Vital Sign Reading Time Taken Comments Blood Pressure 126/70 06/28/2019 1:50 PM CDT Pulse 71 06/28/2019 1:50 PM CDT Temperature 36.2 ??C (97.2 ??F) 06/28/2019 1:50 PM CD T Respiratory Rate 20 06/28/2019 1:50 PM CDT Oxygen Saturation 99% 06/28/2019 1:50 PM CDT Inhaled Oxygen Concentration - - Weight 140.6 kg (309 lb 15.5 oz) 06/28/2019 9:29 AM CDT Height 188 cm (6' 2 ) 06/28/2019 9:29 AM CDT Body Mass Index 39.8 06/28/2019 9:29 AM CDT documented in this encounter Discharge Diagnoses Diagnosis Type 2 diabetes mellitus with foot ulcer (CODE) ([facility]) - TYPE 2 DIABETES MELLITUS WITH FOOT ULCER 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) - NON-PRESSURE CHRONIC ULCER OF OTHER PART OF LEFT FOOT WITH NECROSIS OF BONE Other osteomyelitis, ankle and foot (HCC) - OTHER OSTEOMYELITIS, ANKLE AND FOOT Obesity, unspecified - OBESITY, UNSPECIFIED Body mass index (bmi) 39.0-39.9, adult - BODY MASS INDEX (BMI) 39.0-39.9, ADULT Unspecified atrial fibrillation (HCC) - UNSPECIFIED ATRIAL FIBRILLATION [facility] (current) use of anticoagulants - 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 Long-term (current) use of anticoagulants Heart failure, unspecified (CMS/HCC) (HCC) - HEART FAILURE, UNSPECIFIED Heart failure, unspecified Type 2 diabetes mellitus with diabetic chronic kidney disease (HCC) - TYPE 2 DIABETES MELLITUS WITH DIABETIC CHRONIC KIDNEY DISEASE Type 2 diabetes mellitus with diabetic neuropathy, unspecified (HCC) - TYPE 2 DIABETES MELLITUS WITH DIABETIC NEUROPATHY, UNSPECIFIED Hypertensive heart and chronic kidney disease with heart failure and stage 1 through stage 4 chronic kidney disease, or unspecified chronic kidney disease (HCC) - HYPERTENSIVE HEART AND CHRONIC KIDNEY DISEASE WITH HEART FAILURE AND STAGE 1 THROUGH STAGE 4 CHRONIC Chronic kidney disease, stage 3 (moderate) - CHRONIC KIDNEY DISEASE, STAGE 3 (MODERATE) Hyperlipidemia, unspecified - HYPERLIPIDEMIA, UNSPECIFIED 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 * General Anesthesia (Discharge Care) (French) * Hydrocodone/Acetaminophen (By mouth) (French) documented in this encounter Medications at Time [...] week 0 documented as of this encounter Ordered Prescriptions Prescription Sig Dispense Quantity Refills Last Filled Start Date End Date HYDROcodone-acetam inophen (NORCO) 5-325 mg per tabletIndications: Pain Take 1 tablet by mouth every 4 (four) hours as needed for pain 20 tablet 06/28/2019 05/07/2020 HYDROcodone-acetam inophen (NORCO) 5-325 mg per tabletIndications: Pain Take 1 tablet by mouth every 4 (four) hours as needed for pain 20 tablet 06/28/2019 05/07/2020 documented in this encounter Discharge Disposition Disposition Code Departure Means Destination Discharge to home or self care documented in this encounter H&P Notes * Amelia Rodrigez DPM - 06/28/2019 12:10 PM CDT I have reviewed the H&P, examined the patient, and endorse the findings as written. Plan of Care : Based on the above findings, I consider Darlene Caldera to be an acceptable risk for : Procedure(s): NEEDLE BONE BIOPSY LEFT HALLUX REQUEST JAMSHIDI NEEDLE DEBRIDEMENT WOUND LEFT FOOT Source Note - Amelia Rodrigez DPM - 06/28/2019 10:38 AM CDT Podiatry H and P Subjective Patient is a 69 y.o. male with chief complaint Nonhealing ulceration left Great toe HPI: [facility] care of a nonhealing ulceration to the left great toe. He did have of bone scan recently which indicated possible bone infection in the left great toe. Past Medical History: Diagnosis Date ??? Adiposity Obesity ??? Atrial fibrillation (CMS/HCC) ??? CHF (congestive heart failure) (CMS/HCC) ??? Chronic kidney disease Stage III ??? HX OTHER MEDICAL Diabetes Type II ??? Hyperlipidemia ??? Hypertension Hypertension ??? Neuropathy (CMS/HCC) Feet ??? Type 2 diabetes mellitus (CMS/HCC) History reviewed. No pertinent surgical history. HOME MEDICATIONS : atorvastatin (LIPITOR) 20 mg tablet carvediloL (COREG) 25 mg tablet fenofibrate (TRIGLIDE) 160 mg tablet fish oil-dha-epa 1,200-144-216 mg capsule furosemide (LASIX) 80 mg tablet losartan (COZAAR) 50 mg tablet potassium chloride ER (potassium chloride ER) 20 mEq CR tablet spironolactone (ALDACTONE) 50 mg tablet warfarin (COUMADIN) 2.5 mg tablet warfarin (COUMADIN) 5 mg tablet insulin regular (HumuLIN R, NovoLIN R) 100 unit/mL injection ULTICARE 1 mL 30 gauge x 1/2 syringe No Known Allergies Social History Tobacco Use ??? Smoking status: Never Smoker ??? Smokeless tobacco: Never Used Substance Use Topics ??? Alcohol use: No Family History Problem Relation Age of Onset ??? Coronary artery disease Mother Coronary artery disease, premature; Review of Systems: Constitutional: negative for chills, fevers and night sweats ENT: denies ringing in ears, no productive cough or runny nose Cardiovascular: No current chest pain or SOB GI: no abdominal pain, constipation, loose stools, nausea, or vomiting Extremities: no pain in lower extremities, relates that they feels numb Psych: No suicidal or homicidal ideations Vitals: 24hr Min/Max: Temp Min: 36.1 ??C (96.9 ??F) Max: 36.1 ??C (96.9 ??F) Pulse Min: 75 Max: 75 BP Min: 124/71 Max: 124/71 Resp Min: 20 Max: 20 SpO2 Min: 98 % Max: 98 % Most Recent : Vitals: 06/28/19 0929 BP: 124/71 Pulse: 75 Resp: 20 Temp: 36.1 ??C (96.9 ??F) SpO2: 98% No intake/output data recorded. No intake/output data recorded. Objective Physical Exam: General appearance: Vascular: Pedal pulses Palpable Neuro:Epicritic sensation diminished Musculoskeletal: 4/5muscle strength for all muscles crossing the ankle joint. No pain with compression of calf musculature. Semi reducible contracture at the left hallux IPJ Derm: Open wound distal left hallux. No bone exposed 3 phase bone scan: Osteo distal left hallux Assessment /Plan Active Problems: No Active Problems: There are no active problems currently on the Problem List. Please update the Problem List and refresh. Plan: I have discussed surgical options and alternatives with patient. Patient knows he is at risk for amputation but wanted to proceed with bone biopsy and wound debridement 1st. I think this is reasonable. I discussed the procedure and the risks and benefits with him. He knows that he may need to undergo 6 weeks IV antibiotic therapy. He also knows that this may not eradicate the bone infection or heal the wound. Amelia Rodrigez DPM 06/28/2019 * Amelia Rodrigez DPM - 06/28/2019 10:38 AM CDT Podiatry H and P Subjective Patient is a 69 y.o. male with chief complaint Nonhealing ulceration left Great toe HPI: patient has been [facility] for care of a nonhealing ulceration to the left great toe. He did have of bone scan recently which indicated possible bone infection in the left great toe. Past Medical History: Diagnosis Date ??? Adiposity Obesity ??? Atrial fibrillation (CMS/HCC) ??? CHF (congestive heart failure) (CMS/HCC) ??? Chronic kidney disease Stage III ??? HX OTHER MEDICAL Diabetes Type II ??? Hyperlipidemia ??? Hypertension Hypertension ??? Neuropathy (CMS/HCC) Feet ??? Type 2 diabetes mellitus (CMS/HCC) History reviewed. No pertinent surgical history. HOME MEDICATIONS : atorvastatin (LIPITOR) 20 mg tablet carvediloL (COREG) 25 mg tablet fenofibrate (TRIGLIDE) 160 mg tablet fish oil-dha-epa 1,200-144-216 mg capsule furosemide (LASIX) 80 mg tablet losartan (COZAAR) 50 mg tablet potassium chloride ER (potassium chloride ER) 20 mEq CR tablet spironolactone (ALDACTONE) 50 mg tablet warfarin (COUMADIN) 2.5 mg tablet warfarin (COUMADIN) 5 mg tablet insulin regular (HumuLIN R, NovoLIN R) 100 unit/mL injection ULTICARE 1 mL 30 gauge x 1/2 syringe No Known Allergies Social History Tobacco Use ??? Smoking status: Never Smoker ??? Smokeless tobacco: Never Used Substance Use Topics ??? Alcohol use: No Family History Problem Relation Age of Onset ??? Coronary artery disease Mother Coronary artery disease, premature; Review of Systems: Constitutional: negative for chills, fevers and night sweats ENT: denies ringing in ears, no productive cough or runny nose Cardiovascular: No current chest pain or SOB GI: no abdominal pain, constipation, loose stools, nausea, or vomiting Extremities: no pain in lower extremities, relates that they feels numb Psych: No suicidal or homicidal ideations Vitals: 24hr Min/Max: Temp Min: 36.1 ??C (96.9 ??F) Max: 36.1 ??C (96.9 ??F) Pulse Min: 75 Max: 75 BP Min: 124/71 Max: 124/71 Resp Min: 20 Max: 20 SpO2 Min: 98 % Max: 98 % Most Recent : Vitals: 06/28/19 0929 BP: 124/71 Pulse: 75 Resp: 20 Temp: 36.1 ??C (96.9 ??F) SpO2: 98% No intake/output data recorded. No intake/output data recorded. Objective Physical Exam: General appearance: Vascular: Pedal pulses Palpable Neuro:Epicritic sensation diminished Musculoskeletal: 4/5muscle strength for all muscles crossing the ankle joint. No pain with compression of calf musculature. Semi reducible contracture at the left hallux IPJ Derm: Open wound distal left hallux. No bone exposed 3 phase bone scan: Osteo distal left hallux Assessment /Plan Active Problems: No Active Problems: There are no active problems currently on the Problem List. Please update the Problem List and refresh. Plan: I have discussed surgical options and alternatives with patient. Patient knows he is at risk for amputation but wanted to proceed with bone biopsy and wound debridement 1st. I think this is reasonable. I discussed the procedure and the risks and benefits with him. He knows that he may need to undergo 6 weeks IV antibiotic therapy. He also knows that this may not eradicate the bone infection or heal the wound. Amelia Rodrigez DPM 06/28/2019 documented in this encounter Miscellaneous Notes * Provider Query - Amelia Rodrigez DPM - 06/28/2019 2:19 PM CDT Please clarify the surface area of wound post wound debridement on date: 06/28/19 and body site: plantar aspect of left hallux. ____x 20 square cm or < 20 - 40 square cm 41 - 60 square cm Other Excisional Debridement performed as part of a more complex procedure. Clinical Indicators/Treatments: ??? Plantar aspect left hallux wound ? ? 15 blade forceps & curette used to perform excisional debridement on wound ? ? Subcutaneous tissue, devitalized tissue, & slough sharply excised ? ? Wound covered with betadine ointment & Xerform, then dry sterile compressive dressing Provider Response: Debrided 20sq cm or less of subutaneous tissue Use of terms such as likely, suspected, possible, or probable (associated with a specific diagnosisthat is being evaluated, monitored, or treated as if it exists) are acceptable and can be coded in the inpatient setting when documented at the time of discharge. This documentation will become part of the patient???s medical record. Sincerely, Mouna Faulkner BMP [employer] Information Management * Brief Op Note - Amelia Rodrigez DPM - 06/28/2019 12:30 PM CDT Operative Progress Note Surgical Team: Surgeon(s) and Role: * Amelia Rodrigez DPM - Primary Anesthesiologist: Espinoza Ragsdale MD TYPESETTING MACHINE TENDER: Shalonda Gorman CRNA Knitting Tester: Arcelia Ferreira RN Scrub: Eva Cevallos OFFICE ASSISTANCE: Paulina Mora RN DATE OF SURGERY : 06/28/2019 Preoperative Diagnosis: Left foot osteomyelitis DFU left foot Postoperative Diagnosis: Same Procedure(s): Procedure(s) (LRB): NEEDLE BONE BIOPSY LEFT HALLUX REQUEST JAMSHIDI NEEDLE (Left) DEBRIDEMENT WOUND LEFT FOOT (Left) Operative Findings: See dictation Estimated Blood Loss: Less than 5mLs Specimens: ID Type Source Tests Collected by Time A : left distal phalanx, left hallux bone Tissue Bone - Biopsy / Curettings SURGICAL PATHOLOGY Amelia Rodrigez DPM 06/28/2019 1229 Implants: Nothing was implanted during the procedure Complications: None Condition on Discharge from the operating room was stable Amelia Rodrigez DPM Date: 06/28/2019 Time: 12:42 PM No Resident involved on case * Op Note - Amelia Rodrigez DPM - 06/28/2019 12:00 AM CDT Surgeon Amelia Rodrigez D.P.M. Preoperative Diagnoses 1. Left hallux osteomyelitis. 2. Diabetic foot ulceration left foot. Postoperative Diagnosis 1. Left hallux osteomyelitis. 2. Diabetic foot ulceration left foot. Procedure Bone biopsy left distal phalanx and wound debridement left hallux. Pathology Bone sent from distal phalanx for bone culture and for bone pathology. Anesthesia Local with monitored anesthesia care. Hemostasis None. Estimated Blood Loss Less than 5 mL. Materials 4-0 nylon. Injectables A total of 10 mL of 0.5% Marcaine plain preoperatively. Complications None. Procedure in Detail Under mild sedation, the patient was brought into the operating room and placed on the operating table in a supine position. A pneumatic ankle tourniquet was placed about the patient's left ankle butwas never inflated. Following IV sedation, local anesthesia was obtained around the left hallux using a total of 10 mL of 0.5% Marcaine plain. The foot was then scrubbed, prepped, and draped in the usual aseptic manner. Attention was then directed to the distal left hallux where a small stab incision was made medial to the ulceration. Two separate samples of bone were extracted; one was sent for histopathological examination and one was sent for bone culture. Bone was noted to be of good quality. The incision line was then reapproximated with 4-0 nylon. Attention was then directed to the plantar aspect of the left hallux where there was a wound located. A 15 blade forceps and curette was used to perform an excisional debridement on the wound. Subcutaneous tissue, devitalized tissue and slough were all sharply excised and then the incision lines and wounds were covered with Betadine ointment and Xeroform and then covered with a dry sterile compressive dressing. The patient tolerated the procedure and anesthesia well and was transferred to the recovery room with vital signs stable and vascular status unchanged. Following a period of postoperative monitoring,the patient will be discharged home on the following written and oral postoperative instructions: 1. Keep dressing dry and intact until Monday and then resume previous dressings every other day. 2. Elevate left foot when at rest. 3. Limit ambulation and wear postop shoe at all times when ambulating. 4. Continue taking previously prescribed antibiotics and prescriptions were written for [place] 5/325as needed for pain. Job ID/VF Job ID: [id number] * Perioperative Nursing Note - Kika Unger RN - 06/26/2019 10:18 AM CDT Patient had an Obstructive Sleep Apnea Score of 5. Notified Kate Mistry, Sleep [facility] Ironer, Dr. Babb letter faxed to Dr. Gardner and discharge instructions put in patient chart. * Pre-Procedure Instructions - Kika Unger RN - 06/26/2019 9:26 AM CDT We are pleased that you and your doctor have chosen [facility] for your surgery. We hope that the following information will help make your visit a pleasant one. Surgery Date: 06/28/2019; Arrival Time 10:30am; Surgery Time 12:00pm. Before your surgery: ?? Notify your doctor of ANY change in your health such as a cold, sore throat, fever, any infection or a change in the problem for which you are having your surgery. ?? Follow any instructions given to you by your doctor or surgeon. Check with your doctor if you need to STOP taking: ?? Coumadin - not stopping as per surgeon. One week before surgery STOP taking: ?? All herbal supplements ?? Aspirin (not ordered by your doctor) ?? Aleve, Advil, Motrin, Ibuprofen, or other similar medications (Tylenol is okay). 24 hours before your surgery: ?? No smoking or alcoholic drinks. Night before your surgery: ?? Do not eat or drink anything after midnight. Follow surgeon's instructions for Hibiclens Soap shower night and morning of surgery. Do not use Hibiclens soap on face, hair or genitals (may use own shampoo and soap for these areas). Day of surgery: ?? Do not swallow any water when you brush your teeth. ?? Do not take your AM insulin dose or any diabetic medicines ?? ONLY take these pills with a tiny sip of water; Carvedilol, Losartan and Spironolactone. ?? Use no make-up, nail nepali, lotions, oils or powders on your skin. ?? Wear comfortable clothes that will not be tight in the area of your surgery. ?? Leave all valuables and jewelry (including all body piercing jewelry) at home. ?? Please bring your a photo ID, insurance cards and co-payment if requested by Pre-Arrival with you. ?? Check in at the Ambulatory Surgery Check-In. ?? If you are 17 years old or younger, a parent or guardian must come with you. After your Outpatient Surgery: ?? You must have a responsible adult to drive you home, you will not be allowed to drive or take a cab home. ?? We recommend you have someone stay with you for 24 hours after your surgery. What to bring if you are spending the night with us: ?? Bring toiletry items such as: robe, slippers, toothbrush, toothpaste, brush or comb. ?? Bring contact lens, hearing aids, glass cases and denture container if you use any of these items. ?? The hospital will provide you with a gown. Questions or concerns: ?? If you have any questions or concerns regarding your procedure, contact your surgeon as soon as possible. ?? If you have questions regarding your Pre-Admission Testing, please call us. We can be reached atthe number posted at the top of the page. documented in this encounter Plan of Treatment Not on file documented as of this encounter Procedures Procedure Name Priority Date/Time Associated Diagnosis Comments SURGICAL PATHOLOGY Routine 06/28/2019 2: 03 PM CDT Osteomyelitis of left foot, unspecified type ([facility]) POCT GLUCOSE DEVICE Routine 06/28/2019 1 2:57 PM CDT TISSUE AEROBIC AND ANAEROBIC CULTURE AND GRAM STAIN Routine 06/28/2019 12:31 PM CDT DEBRIDEMENT WOUND 06/28/2019 12: 11 PM CDT OSTEOMYELITIS, ULCER BIOPSY - BONE 06/28/2019 12:11 PM CDT OSTEOMYELITIS, ULCER POCT GLUCOSE DEVICE Routine 06/28/2019 9 :47 AM CDT POTASSIUM, WHOLE BLOOD STAT 06/28/2019 9:45 AM CDT ECG 12-LEAD STAT 06/28/2019 9:34 AM CDT documented in this encounter Results * Surgical pathology (06/28/2019 2:03 PM CDT) Tissue (Bone - Biopsy / Curettings) 06/28/2019 12:29 PM CDT Narrative PATHOLOGY [facility] - 07/02/2019 11:08 AM CDT EPIC results best viewed via link to PDF [facility] Department of Pathology [address] [place] [address] Final Report Patient Name: ??DARLENE CALDERA Address: ?? [address], ??[place], [place] ??[address] Gender: ??M : ??1950 (Age: 69) Service: ??Surgery Location: ??[facility] Hospital #: ??[id number] Patient Type: ??[facility] Accession # ?[id number] Taken: ??06/28/2019 Received: ??06/28/2019 Accessioned: ??06/28/2019 Reported: ??07/02/2019 Physician(s):Dr Amelia Rodrigez, DPM Diagnosis: Bone, left hallux, biopsy: ? -No pathologic diagnosis Meghan Luna M.D. Report Electronically Reviewed and Signed Out By ??Meghan Luna M.D. ??07/02/2019 11:08:57 Specimen(s) Received: A: Left distal phalanx, left hallux bone Microscopic Description: Microscopic examination reveals a specimen that primarily consists of bone and bone marrow, additionally including some cartilage, fibrous connective tissue and a apparent skin. ??All of these tissues have an unremarkable histomorphology. ??No abnormal inflammation or other significant alterations are identified by routine light microscopy. Clinical History: Osteomyelitis, ulcer. ??Needle bone biopsy left hallux, debridement wound left foot. ?? Gross Description: The specimen is submitted in a single container labeled Darlene Caldera and left distal hallux . ??It is a core of red-villavicencio bone that measures 8 mm in length. ??The specimen is decalcified and all submitted in one cassette. ??Guillermo Burt M.D./Jesus Armstrong REPORT IMAGES AND SCANNED DOCUMENTS, IF INCLUDED, ONLY VIEWABLE IN PDF VERSION OF REPORT The performance characteristics of some immunohistochemical stains, fluorescence in-situ hybridization tests and immunophenotyping by flow cytometry cited in this report (if any) were determined by the Surgical Pathology Department at [facility] as part of an ongoing chief quality officer program and in compliance with federally mandated [...] a high complexity laboratory under CLIA '88. The FDA has determined that such clearance or approval is not necessary. ??This test is used for clinical purposes. ??It should not be regarded as investigational or for research. ??Nevertheless, federal rules concerning the medical use of analyte specific reagents require that the following disclaimer be attached to the report: This test was developed and its performance characteristics determined by the Surgical Pathology Department [facility]. ??It has not been cleared or approved by the U. S. Food and Drug Administration. us Amelia N. Elia DP LAB PATHOLOGY ORDERABLES Fi nal Result PATHOLOGY [facility] ([place]) [address] [place] [address] * POCT glucose (06/28/2019 12:57 PM CDT) Glucose, POC 90 71 - 98 mg/dL ERIKA RODRIGUEZ (DEAN) Blood specimen (specimen) 06/28/2019 12:57 PM CDT 06/28/2019 12:57 PM CDT us Amelia Rodrigez DP LAB POCT ORDERABLES - DEVIC E Final Result Performing Organization Address City/[facility] Co de Phone Number ERIKA RODRIGUEZ ([place]) [address] [facility] Department [place] [address] * (ABNORMAL) Tissue aerobic and anaerobic culture and gram stain Bone Toe, great, left (06/28/2019 12:31 PM CDT) Direct Specimen Exam Stain: No polymorphonuclear leukocytes seen. No organisms seen. ERIKA RODRIGUEZ (DEAN) Comment:Testing performed by : [facility], [address] [place]., [address] Report Final Report: Few Mixed gram positive microorganisms (.) ERIKA RODRIGUEZ (DEAN) Comment:Testing performed by : [facility], [address] [place]., [address] Organism MIXED GRAM POSITIVE MICROORGANISMS ERIKA RODRIGUEZ (DEAN) Bone (Toe, great, left) 06/28/2019 12:31 PM CDT 06/28/2019 5:34 PM CDT Narrative ERIKA RODRIGUEZ (DEAN) - 07/02/2019 10:56 AM CDT Left distal HALLUX BONE Testing performed by [facility] Microbiology Laboratory ([phone]) Specimens submitted from normally sterile body sites [...] interpretive data was last revised on 2019. Amelia Rodrigez DPM LAB MICROBIOLOGY - GENERAL ORDERABLES Final Result Performing Organization Address [facility] Health/[facility] Co de Phone Number ERIKA RODRIGUEZ ([place]) 1 [facility] [place] [address] [place] [address] * (ABNORMAL) POCT glucose (06/28/2019 9:47 AM CDT) Glucose, POC 105(H) 71 - 98 mg/dL ERIKA [facility] ([place]) Blood specimen (specimen) 06/28/2019 9:47 AM CDT 06/28/2019 9:47 AM CDT Amelia FAY LAB POCT ORDERABLES - DEVIC E Final Result Performing Organization Address [facility] de Phone Number ERIKA RODRIGUEZ ([place]) 1 [facility] [address] [place] [address] * Potassium, whole blood (06/28/2019 9:45 AM CDT) Potassium, bld 3.9 3.5 - 5.0 mmol/L ERIKA RODRIGUEZ ([place]) Blood specimen (specimen) 06/28/2019 9:45 AM CDT 06/28/2019 9:49 AM CDT Alberto Babb MD LAB BLOOD ORDERABLES Fin al Result Performing Organization Address [facility] Co de Phone Number ERIKA RODRIGUEZ ([place]) 1 [facility] [address] [place] [address] * ECG 12 lead (06/28/2019 9:34 AM CDT) 06/28/2019 9:34 AM CDT Narrative [facility] - 06/28/2019 11:31 AM CDT Vent Rate: 86 bpm RR Interval: 694 msec [place] Interval: 0 msec QRS Duration: 143 msec QT Interval: 414 msec QTC Interval: 457 msec P-R-T [place]: 0 - 12 - 9 degrees ATRIAL FIBRILLATION INDETERMINATE AXIS RIGHT BUNDLE BRANCH BLOCK ??[120+ ms QRS DURATION, UPRIGHT V1, 40+ ms S IN I/aVL/V4/V5/V6] ABNORMAL ECG Electronically Signed By: Cornel Springer MD us Alberto Babb MD ECG ORDERABLES Final Re sult [facility] documented in this encounter Visit Diagnoses Diagnosis Osteomyelitis of left foot, unspecified type (HCC) documented in this encounter Administered Medications Inactive Administered Medications - up to 3 most recent administrations Medication Order MAR Action Action Date Dose Rate Site acetaminophen (TYLENOL) tablet 1,000 mg 1,000 mg, oral, Once, On Mon06/28/19 at 1000, For 1 dose, Pre-Op, Indications: Pre-Emptive AnalgesiaIndications:Pre- Emptive Analgesia Given 06/28/2019 9:51 AM CDT 1,000 mg gabapentin (NEURONTIN) capsule 300 mg 300 mg, oral, Once, On Mon06/28/19 at 1000, For 1 dose, Pre-Op Given 06/28/2019 9:51 AM CDT 300 mg sodium chloride 0.9% infusion 30 mL/hr, intravenous, Continuous, Starting on Mon06/28/19 at 1000, Pre-Op Rate/Dose Verify 06/28/2019 12:12 PM CDT 50 mL/hr New Bag 06/28/2019 9:47 AM CDT 30 mL/hr 30 mL/hr documented in this encounter Discontinued Medications Medication Sig Discontinue Reason Start Date End Da te warfarin (COUMADIN) 5 mg tablet Take 1 tablet (5 mg total) by mouth once for 1 dose Formulary change 01/28/2019 06/26/2019 carvediloL (COREG) 25 mg tablet Take 1 tablet (25 mg total) by mouth 2 (two) times a day with meals Formulary change 05/10/2019 06/26/2019 documented as of this encounter Historical Medications * This list may reflect changes made after this encounter. fish oil-dha-epa 1,200-144-216 mg capsule Take 1 capsule by mouth 2 (two) times a day carvediloL (COREG) 25 mg tabletIndications: hypertension Take 12.5 mg by mouth 2 (two) times a day with meals 2 warfarin (COUMADIN) 2.5 mg tabletIndications: atrial fibrillation Take 1 tablet (2.5 mg total) by mouth once a week Monday warfarin (COUMADIN) 5 mg tablet Take 5 mg by mouth 5 (five) times a week 0 added in this encounter Active and Recently Administered Medications Times are shown in CDT. Scheduled Medication Order 06/26/2019 06/27/2019 06/28/2019 acetaminophen (TYLENOL) tablet 1,000 mg (COMPLETED) 1,000 mg, oral, Once, On Mon06/28/19 at 1000, For 1 dose, Pre-Op, Indications: Pre-Emptive Analgesia 0951 (Given - Provid er: Kamila Lei RN) gabapentin (NEURONTIN) capsule 300 mg (COMPLETED) 300 mg, oral, Once, On Mon06/28/19 at 1000, For 1 dose, Pre-Op 0951 (Given - Provid er: Kamila Lei RN) Continuous Medication Order 06/26/2019 06/27/2019 06/28/2019 sodium chloride 0.9% infusion 30 mL/hr, intravenous, Continuous, Starting on Mon06/28/19 at 1000, Pre-Op 0947 (New Bag - Prov ider: Kamila Lei RN)1212 (Rate/Dose Verify - Provider: Shalonda Gorman CRNA)1248 (Anesthesia Volume Adjustment - Provider: Shalonda Gorman CRNA) PRN Medication Order 06/26/2019 06/27/2019 06/28/2019 bupivacaine (MARCAINE) 0.5 % (5 mg/mL) preservative free injection (CANCELED) As needed, Starting on Mon06/28/19 at 1225, Intra-Op 1225 (Given - Provid er: Amelia Rodrigez DPM) povidone-iodine (BETADINE) 10 % ointment (CANCELED) As needed, Starting on Mon06/28/19 at 1238, Intra-Op, Indications: Skin Disinfection 1238 (Given - Provid er: Amelia Rodrigez DPM) sodium chloride 0.9 % irrigation (CANCELED) As needed, Starting on 06/28/19 at 1238, Intra-Op 1238 (Given - Provid er: Amelia Rodrigez DPM) documented in this encounter Orders Medications Ordered That Savage ht Not Have Been Administered Count Last Ordered Date First Ordered Date bupivacaine (MARCAINE) 0.5 % (5 mg/mL) preservative free injection 1 06/28/2019 fentaNYL (SUBLIMAZE) preserv ative free injection 25 mcg 1 06/28/2019 fentaNYL (SUBLIMAZE) preserv ative free injection 50 mcg 1 06/28/2019 naloxone (NARCAN) 0.4 mg/mL injection 0.04-0.4 mg 1 06/28/2019 ondansetron (ZOFRAN) injection 4 mg 1 06/27 povidone-iodine (BETADINE) 10 % ointment 1 06/28/2019 sodium chloride 0.9 % irrigation 1 06/28/19 20 sodium chloride 0.9% flush 0.5-20 mL 1 06/02 Diet Count Last Ordered Date First Orde red Date ADULT DISCHARGE DIET 1 06/28/2019 Nursing Count Last Ordered Date First Orde red Date ACTIVITY 1 06/28/2019 DISCHARGE INSTRUCTIONS 2 06/28/2019 ELEVATE EXTREMITY 1 06/28/2019 FOLLOW UP WITH ESTABLISHED PROVIDER 1 06/27 WOUND CARE 1 06/28/2019 documented in this encounter Care Teams Biomedical Instrument Technician Relationship Specialty Start Date End Date Darlene Gardner MD [address] [place] [address] PCP - General 07/01/16 Kev Dey MD [address] [place] [address] Referring Physician Nephrology 05/10/19 Amelia Rodrigez DPM [address] [place] [id number] Consulting Physician Foot and Ankle Surg 06/28/19 documented as of this encounter
--- OUTSIDE RECORDS SUMMARY | 2024-04-15 06:01 | XMS_ITS | Encounter Summary ---
Author Organization [facility] Address [address] [place] [address] Care Team Providers Care Stock House Worker Name Role Phone Erwin Gardner MD Primary Care Provide r Kev Dey MD Unavailable [phone] Encounter Details Date Type Department Care Team (Late st Contact Info) Description 05/28/2019 Telephone [facility] Cardiology [address] [facility] [address] [place] [address] Erwin Velasquez MD [address] [facility] [address] [place] [address] Social History Tobacco Use Types Packs/Day Years Used Date Smoking Tobacco: Never Smokeless Tobacco: Never Alcohol Use Standard Drinks/Week Comments No 0 (1 standard drink = 0.6 oz pur e alcohol) Sex and Gender Information Value Date Recorded Sex Assigned at Not on file Legal Sex Male 11:57 AM PHYSICIAN PRACTICE MARKET MANAGER Gender Identity Not on file Sexual Orientation Not on file documented as of this encounter Ordered Prescriptions Prescription Sig Dispense Quantity Refills Last Filled Start Date End Date furosemide (LASIX) 80 mg tablet Take 1.5 tablets (120 mg total) by mouth daily 135 tablet 3 05/28/2019 0 documented in this encounter Miscellaneous Notes * Telephone Encounter - Crys Parham MA - 05/28/2019 2:52 PM CST Med approved and sent as requested, AW [employer]CIAN [employer]ACTICE MARKET MANAGER * Telephone Encounter - Jane Vallejo - 05/28/2019 12:20 PM CST Patient/and or Pharmacy calling to request refills on the following medications: furosemide 80 mg tabs. Pt is completely out of medication Pharmacy: [facility]ude [employer]ACT[employer] MARKET MANAGER documented in this encounter Plan of Treatment Not on file documented as of this encounter Visit Diagnoses Not on filedocumented in this encounter Discontinued Medications Medication Sig Discontinue Reason Start Date End Da te furosemide (LASIX) 80 mg tablet Take 1.5 tablets (120 mg total) by mouth daily. Reorder 05/30/2018 05/28/2019 documented as of this encounter Care Teams Stock House Worker Relationship Specialty Start Date End Date Erwin Gardner MD [address] [place] [address] PCP - General 07/01/16 Kev Dey MD [address] [place] [address] Referring Physician Nephrology 05/10/19 documented as of this encounter
--- OUTSIDE RECORDS SUMMARY | 2024-04-15 06:01 | XMS_ITS | Encounter Summary ---
Author Organization [facility] Address [address] [place] [address] Phone Care Team Providers Care Hand Mold Maker Name Role Phone Erwin Gardner MD Primary Care Provide r Reason for Visit * Reason Comments Follow-up Multiple Myeloma * Oncology (Routine) - Closed Specialty Diagnoses / Procedures Referred By Contac t Referred To Contact Hematology and Oncology / Oncology Diagnoses reschedule pt with , per Laura pt.wants to stay with Dr. Leonardo. Procedures RETURN [facility] (All Locations) German Leonardo MD [address] [place] [address] DR BUTT [address] [place] [address] Phone: tel: fax: Referral ID Status Reason Start Date Expiration Date Visits Re quested Visits Authorized [id number] Closed 11/09/2018 10/01/2019 4 4 Encounter Details Date Type Department Care Team (Late st Contact Info) Description 11/09/2018 2:00 PM CDT Office Visit [facility] On[facility] [address] [facility] [place] [address] [place] [id number] German Leonardo MD [address] [place] [address] [place] [address] Multiple myeloma not having achieved remission (CMS/HCC) (Primary Dx) Social History Tobacco Use Types Packs/Day Years Used Date Smoking Tobacco: Never Smokeless Tobacco: Never Alcohol Use Standard Drinks/Week Comments No 0 (1 standard drink = 0.6 oz pur e alcohol) Sex and Gender Information Value Date Recorded Sex Assigned at Not on file Legal Sex Male 11:57 AM AIRCRAFT COMMUNICATOR Gender Identity Not on file Sexual Orientation Not on file documented as of this encounter Last Filed Vital Signs Vital Sign Reading Time Taken Comments Blood Pressure 121/65 11/09/2018 2:00 PM CDT Pulse 82 11/09/2018 2:00 PM CDT Temperature 36.4 ??C (97.5 ??F) 11/09/2018 2:00 PM CD T Respiratory Rate 16 11/09/2018 2:00 PM CDT Oxygen Saturation 95% 11/09/2018 2:00 PM CDT Inhaled Oxygen Concentration - - Weight 141.9 kg (312 lb 12.8 oz) 11/09/2018 2:00 PM CDT Height 188 cm (6' 2.02 ) 11/09/2018 2:00 PM CDT Body Mass Index 40.14 11/09/2018 2:00 PM CDT documented in this encounter Progress Notes * German Leonardo MD - 11/09/2018 2:00 PM CDT Medical Oncology Clinic Note Visit Date: 11/09/2018 Requesting Provider: Dr. Tiburcio MD Primary Care Physician: MD Erwin Espinoza [facility] 68 y.o. male Chief Complaint : The patient returns today for reassessment and further recommendations regarding further evaluationand management of his MGUS . HPI: 11/09/2018-- The patient returns today for reassessment and further recommendations regarding furtherevaluation and management with no new complaints. Lab today performed by [facility]: 1. Serum creatinine = 1.83 mg/dL (down) 2. BUN = 30 mg/dL 3. EGFR = 43 cc/minute 4. Total protein = 7.2 mg/dL (stable) 5. Albumin 4.2 mg/dL (up) 6. Calcium normal at 9.4 mg/dL 7. Free kappa light chains = 35 (down) 8. Free lambda light chains = 69 (down) 9. KL ratio = 0.5 10. M protein = 0.8 (no immuno fixation electrophoresis) 11. Hemoglobin = 11.9 grams/deciliter (up) 12. Hematocrit = 35% 13. WBC and platelets normal Assessment: 1. This patient does have chronic kidney disease--although his most recent creatinine is better, 2. He has multiple potential causes for this -- a kidney biopsy has not yet been done., 3. He does have a very small circulating paraprotein which almost certainly represents MGUS . 4. I still don't think that a bone marrow exam is necessary at this time. Plan: 1. I will follow him now at six-month intervals., 2. I will obtain the following laboratory studies: SPEP CMP K/L CBC 3. I answered all of his questions. 11/09/2018 -- German Leonardo MD Patient Active Problem List Diagnosis ??? Atrial fibrillation (CMS/HCC) [I48.91] ??? Cardiomyopathy, idiopathic (CMS/HCC) ??? Multiple myeloma not having achieved remission (CMS/HCC) Hematology History: The patient is a 66-year-old [...] and platelet count normal Review of Systems Constitutional: Negative for appetite change, chills, diaphoresis, fatigue, fever, unexpected weight change, malaise, weight change, no recent illnesses and in good health. HENT: Negative for hearing loss, lump/mass, mouth sores, nosebleeds, sore throat, tinnitus, trouble swallowing, voice change, dry mouth, difficulty hearing and wearing hearing aids. Eyes: Negative for eye problems, icterus, change in vision, dry eyes and cataracts. Respiratory: Negative for chest tightness, cough, hemoptysis, shortness of breath and wheezing. Cardiovascular: Negative for chest pain, leg swelling, palpitations, activity intolerance, shortness of breath, peripheral swelling and difficulty with ADL. Gastrointestinal: Negative for abdominal distention, abdominal pain, blood in stool, constipation, diarrhea, nausea, rectal pain and vomiting. Endocrine: Negative for hot flashes. Genitourinary: Negative for bladder incontinence, difficulty urinating, dyspareunia, dysuria, frequency, hematuria and nocturia. Musculoskeletal: Negative for arthralgias, back pain, flank pain, gait problem, myalgias, neck pain, neck stiffness and pain. Skin: Negative for itching, rash, wound, dryness and alopecia. Neurological: Negative for dizziness, extremity weakness, gait problem, headaches, light-headedness, numbness, seizures, speech difficulty and peripheral neuropathy. Hematological: Negative for adenopathy. Does not bruise/bleed easily. Psychiatric/Behavioral: Negative for confusion, decreased concentration, depression, sleep disturbance and suicidal ideas. The patient is not nervous/anxious. Objective Vitals BP 121/65 (BP Location: Right arm) Pulse 82 Temp 36.4 ??C (97.5 ??F) (Oral) Resp 16 Ht 188 cm (6' 2.02 ) Wt (!) 141.9 kg (312 lb 12.8 oz) SpO2 95% BMI 40.14 kg/m?? Physical Exam Constitutional: He is oriented to person, place, and time. He appears well- developed and well-nourished. No distress. HENT: Head: Normocephalic and atraumatic. Right Ear: External ear normal. Left Ear: External ear normal. Nose: Nose normal. Mouth/Throat: Oropharynx is clear and moist. Eyes: Pupils are equal, round, and reactive to light. Conjunctivae and EOM are normal. No scleral icterus. Neck: Normal range of motion. Neck supple. No JVD present. No tracheal deviation present. No thyromegaly present. Cardiovascular: Normal rate, regular rhythm and normal heart sounds. Exam reveals no gallop and no friction rub. No murmur heard. Pulmonary/Chest: Effort normal and breath sounds normal. No respiratory distress. He has no wheezes. He has no rales. He exhibits no tenderness. Abdominal: Soft. Bowel sounds are normal. He exhibits no distension and no mass. There is no tenderness. There is no guarding. Musculoskeletal: Normal range of motion. He exhibits no edema. Lymphadenopathy: He has no cervical adenopathy. Neurological: He is alert and oriented to person, place, and time. He displays normal reflexes. No cranial nerve deficit or sensory deficit. He exhibits normal muscle tone. Coordination normal. Skin: Skin is warm and dry. No rash noted. He is not diaphoretic. No erythema. No pallor. Psychiatric: He has a normal mood and affect. His behavior is normal. Judgment and thought content normal. Vitals reviewed. Lab/Radiology/Diagnostic Review: No results found for this or any previous visit (from the past 672 hour(s)). documented in this encounter Plan of Treatment Not on file documented as of this encounter Procedures Procedure Name Priority Date/Time Associated Diagnosis Comments KAPPA/LAMBDA LIGHT CHAINS FREE WITH RATIO, SERUM Routine 04/25/2019 9:10 AM AIRCRAFT COMMUNICATOR Multiple myeloma not having achieved remission (CMS/HCC) CBC WITH AUTO DIFFERENTIAL Routine 04/25/2019 9:10 AM AIRCRAFT COMMUNICATOR Multiple myeloma not having achieved remission (CMS/HCC) PROTEIN ELECTROPHORESIS, WITH REFLEX, SERUM Routine 04/25/2019 9:10 AM AIRCRAFT COMMUNICATOR Multiple myeloma not having achieved remission (CMS/HCC) COMPREHENSIVE METABOLIC PANEL Routine 04/25/2019 9:10 AM AIRCRAFT COMMUNICATOR Multiple myeloma not having achieved remission (CMS/HCC) documented in this encounter Results * (ABNORMAL) Protein Electrophoresis, With Reflex, Serum (04/25/2019 9:10 AM AIRCRAFT COMMUNICATOR) Protein, sr 6.9 6.1 - 8.1 g/dL [facility] [place] ALBUMIN 3.8 3.8 - 4.8 g/dL [facility] [place] Alpha-1 Globulin 0.2 0.2 - 0.3 g/dL [facility] [place] Alpha-2 Globuliin 0.7 0.5 - 0.9 g/dL [facility] [place] Beta-1 globulin 0.5 0.4 - 0.6 g/dL [facility] [place] Beta 2 globulin 0.4 0.2 - 0.5 g/dL [facility] [place] Gamma globulin 1.3 0.8 - 1.7 g/dL [facility] [place] Abnormal protein band 0.9(H) NONE DETECTED g/dL [facility] [place] Abnormal protein band 2 CANCELED NONE DETECTED g/dL [facility] [place] Comment:Result canceled by t he ancillary. Abnormal protein band 3 CANCELED NONE DETECTED g/dL [facility] [place] Comment:Result canceled by mandi esquivel. SPE, interp [facility] [place] Comment: Restricted band (M-spike) migrating in the gamma region. Consider serum immunofixation to rule out a monoclonal protein if clinically indicated. Blood specimen (specimen) 04/25/2019 9:10 AM AIRCRAFT COMMUNICATOR 04/25/2019 9:11 AM AIRCRAFT COMMUNICATOR Narrative Resulting Agency Comment Performing Organization Information: ?Site ID: [id number] ?Name: [facility] ?Address: [address] [id number] ?Director: Taurus Yen D.O., MPH us German Leonardo MD LAB BLOOD ORDERABLES Final Re sult [facility] [place] * (ABNORMAL) Comprehensive metabolic panel (04/25/2019 9:10 AM AIRCRAFT COMMUNICATOR) Glucose 281(H) 65 - 99 mg/dL [facility] [place] Comment: ? Fasting reference interval For someone without known diabetes, a glucose value >125 mg/dL indicates that they may have diabetes and this should be confirmed with a follow-up test. BUN 38(H) 7 - 25 mg/dL [facility] [place] Creatinine 1.86(H) 0.70 - 1.25 mg/dL [facility] [place] Comment: For patients >49 years of age, the reference limit for Creatinine is approximately 13% higher for people identified as -Mauritanian. eGFR NON-AFR. LAO 36(L) > OR = 60 mL/min/1. 73m2 [facility] [place] EGFR 42(L) > OR = 60 mL/min/1. 73m2 [facility] [place] BUN/creat ratio 20 6 - 22 (calc) [facility] [place] Sodium 137 135 - 146 mmol/L [facility] [place] Potassium, pl 4.3 3.5 - 5.3 mmol/L [facility] [place] Chloride 98 98 - 110 mmol/L [facility] [place] CO2 30 20 - 32 mmol/L [facility] [place] Calcium 9.4 8.6 - 10.3 mg/dL [facility] [place] Protein, sr 6.9 6.1 - 8.1 g/dL [facility] [place] Albumin 4.1 3.6 - 5.1 g/dL [facility] [place] GLOBULIN 2.8 1.9 - 3.7 g/dL (calc) [facility] [place] Alb/glob ratio 1.5 1.0 - 2.5 (calc) [facility] [place] Bilirubin, total 0.5 0.2 - 1.2 mg/dL [facility] [place] Alk phos 71 40 - 115 U/L [facility] [place] AST 13 10 - 35 U/L [facility] [place] ALT (SGPT) 15 9 - 46 U/L [facility] [place] Blood specimen (specimen) 04/25/2019 9:10 AM AIRCRAFT COMMUNICATOR 04/25/2019 9:11 AM AIRCRAFT COMMUNICATOR Narrative Resulting Agency Comment Performing Organization Information: ?Site ID: [id number] ?Name: [facility] ?Address: [address] [place] [address] [address] [id number] ?Director: Taurus Yen D.O., MPH us German Leonardo MD LAB BLOOD ORDERABLES Final Re sult [facility] [place] * (ABNORMAL) CBC with auto differential (04/25/2019 9:10 AM AIRCRAFT COMMUNICATOR) WBC 6.8 3.8 - 10.8 Thousand/ uL [facility] [place] RBC, POC 3.96(L) 4.20 - 5.80 Million/u L [facility] [place] Hgb 11.7(L) 13.2 - 17.1 g/dL [facility] [place] Hct 36.0(L) 38.5 - 50.0 % [facility] [place] MCV 90.9 80.0 - 100.0 fL [facility] [place] MCH 29.5 27.0 - 33.0 pg [facility] [place] MCHC 32.5 32.0 - 36.0 g/dL [facility] [place] Rdw 13.1 11.0 - 15.0 % [facility] [place] Platelets 214 140 - 400 Thousand/ uL [facility] [place] MPV 11.7 7.5 - 12.5 fL [facility] [place] Neutrophils, abs 4,196 1,500 - 7,800 cells/uL [facility] [place] Neutrophil bands, abs CANCELED 0 - 750 cells/uL [facility] [place] Comment:Result canceled by t he ancillary. Metamyelocytes, abs CANCELED 0 cells/uL [facility] [place] Comment:Result canceled by t he ancillary. Myelocytes, abs CANCELED 0 cells/uL [facility] [place] Comment:Result canceled by t he ancillary. Promyelocytes, abs CANCELED 0 cells/uL [facility] [place] Comment:Result canceled by t he ancillary. Lymphocytes, abs 1,782 850 - 3,900 cells/uL [facility] [place] Monocyte abs 571 200 - 950 cells/uL [facility] [place] Eosinophils, abs 190 15 - 500 cells/uL [facility] [place] Basophils, abs 61 0 - 200 cells/uL [facility] [place] Blast, cell CANCELED 0 cells/uL [facility] [place] Comment:Result canceled by t he ancillary. NRBC abs CANCELED 0 cells/uL [facility] [place] Comment:Result canceled by t he ancillary. Neutrophils 61.7 % [facility] [place] Neutrophilic bands CANCELED % [facility] [place] Comment:Result canceled by t he ancillary. Metamyelocyte pct CANCELED % [facility] [place] Comment:Result canceled by t he ancillary. Myelocyte pct CANCELED % [facility] [place] Comment:Result canceled by t he ancillary. Promyelocyte pct CANCELED % [facility] [place] Comment:Result canceled by t he ancillary. Lymphocyte pct 26.2 % [facility] [place] Reactive lymph CANCELED 0 - 10 % [facility] [place] Comment:Result canceled by t he ancillary. Monocytes 8.4 % [facility] [place] Eosinophils 2.8 % [facility] [place] Basophils 0.9 % [facility] [place] Blast pct CANCELED % [facility] [place] Comment:Result canceled by t he ancillary. NRBC CANCELED 0 /100 WBC [facility] [place] Comment:Result canceled by t he ancillary. Comment CANCELED [facility] [place] Comment:Result canceled by t he ancillary. Blood specimen (specimen) 04/25/2019 9:10 AM AIRCRAFT COMMUNICATOR 04/25/2019 9:11 AM AIRCRAFT COMMUNICATOR Narrative Resulting Agency Comment Performing Organization Information: ?Site ID: [id number] ?Name: Jack [facility]abria ?Address: [address] [address] ?Director: Taurus Yen D.O. MPH German Leonardo MD LAB BLOOD ORDERABLES Final Re sult Performing Organization Address [facility] Co de Phone Number [facility] [place] * (ABNORMAL) KAPPA/LAMBDA LIGHT CHAINS FREE WITH RATIO, SERUM (04/25/2019 9:10 AM AIRCRAFT COMMUNICATOR) [facility] light chain, free 32.5(H) 3.3 - 19.4 mg/L [facility] [place] Lambda light chain, free 77.1(H) 5.7 - 26.3 mg/L [facility] [place] [facility]/Lambda light chains free with ratio 0.42 0.26 - 1.65 [facility] [place] Comment: Free kappa/lambda ratio in serum of normal individuals is 0.26-1.65. Excess production of free kappa or lambda chains can alter this ratio. Monoclonal free light chains are found in serum of patients with multiple myeloma, Waldenstrom's macroglobulinemia, mu-heavy chain disease, primary amyloidosis, light chain deposition disease, monoclonal gammopathy of undetermined significance, and lymphoproliferative disorders. Measurement of free light chain concentration in serum is useful for diagnosis, prognosis, monitoring disease activity and following response to therapy of these disorders. Blood specimen (specimen) 04/25/2019 9:10 AM AIRCRAFT COMMUNICATOR 04/25/2019 9:11 AM AIRCRAFT COMMUNICATOR Narrative Resulting Agency Comment Performing Organization Information: ?Site ID: [place] ?Name: Jack [facility]ria ?Address: [address] [address] ?Director: Taurus Yen D.O. MPH German Leonardo MD LAB BLOOD ORDERABLES Final Re sult Performing Organization Address [facility]/ZIP Co de Phone Number [facility] [place] documented in this encounter Visit Diagnoses Diagnosis Multiple myeloma not having achieved remission (CMS/HCC) (HCC)- Primary documented in this encounter Orders Appointment Requests Count Last Ordered Date Fi rst Ordered Date ONCBCN CLINIC APPOINTMENT REQUEST 1 020 documented in this encounter Care Teams Hand Mold Maker Relationship Specialty Start Date End Date Erwin Gardner MD [address] [place] [address] PCP - General 07/01/16 documented as of this encounter
--- OUTSIDE RECORDS SUMMARY | 2024-04-15 06:01 | XMS_ITS | Encounter Summary ---
Author Organization [facility] Address [address] [place] [address] Care Team Providers Care Upsetter Setter Up Name Role Phone Erwin Gardner MD Primary Care Provide r Kev Dey MD Unavailable [phone] Amelia Rodrigez DPM Unavailable [phone] Encounter Details Date Type Department Care Team (Latest Contact Info) Description 07/04/2019 2:02 PM CDT - 07/04/2019 11:59 PM CDT Hospital Encounter [facility] [address] [place] [address] Amelia Rodrigez, DPM [place] [address] Discharge Disposition: Discharge to home or self care Social History Tobacco Use Types Packs/Day Years Used Date Smoking Tobacco: Never Smokeless Tobacco: Never Alcohol Use Standard Drinks/Week Comments No 0 (1 standard drink = 0.6 oz pur e alcohol) Sex and Gender Information Value Date Recorded Sex Assigned at Not on file Legal Sex Male 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
--- OUTSIDE RECORDS SUMMARY | 2024-04-15 06:01 | XMS_ITS | Encounter Summary ---
Author Organization [facility] Address [address] [place] [address] Care Team Providers Care Field Sales Consultant Name Role Phone Erwin Gardner MD Primary Care Provide r Encounter Details Date Type Department Care Team (Latest Contact Info) Description 12/26/2018 Anticoagulation Visit [facility] [address] [address] Erwin Velasquez MD [address] [email or web address] [address] [place] [address] Chronic atrial fibrillation (CMS/HCC) Social History Tobacco Use Types Packs/Day Years Used Date Smoking Tobacco: Never Smokeless Tobacco: Never Alcohol Use Standard Drinks/Week Comments No 0 (1 standard drink = 0.6 oz pur e alcohol) Sex and Gender Information Value Date Recorded Sex Assigned at Not on file 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
--- OUTSIDE RECORDS SUMMARY | 2024-04-15 06:01 | XMS_ITS | Encounter Summary ---
Author Organization [facility] Address [address] [place] [address] Care Team Providers Care Customer Service And Sales Consultant Name Role Phone Erwin Gardner MD Primary Care Provide r Encounter Details Date Type Department Care Team (Latest Contact Info) Description 06/26/2018 Anticoagulation Visit [facility] [address] [address] Erwin Velasquez MD [address] [facility] [address] [place] [address] Chronic atrial fibrillation (CMS/HCC) Social History Tobacco Use Types Packs/Day Years Used Date Smoking Tobacco: Never Smokeless Tobacco: Never Alcohol Use Standard Drinks/Week Comments No 0 (1 standard drink = 0.6 oz pur e alcohol) Sex and Gender Information Value Date Recorded Sex Assigned at Not on file 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
--- OUTSIDE RECORDS SUMMARY | 2024-04-15 06:01 | XMS_ITS | Encounter Summary ---
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
--- OUTSIDE RECORDS SUMMARY | 2024-04-15 06:01 | XMS_ITS | Encounter Summary ---
Author Organization [facility] Address [address] [place] [address] Phone Care Team Providers Care Shipyard Painter Name Role Phone Erwin Gardner MD Primary Care Provide r Encounter Details Date Type Department Care Team (Late st Contact Info) Description 04/17/2018 Orders Only [facility] Oncology [address] [place] [phone] Laura Evans, CHAUNCEY Multiple myeloma, remission status unspecified (CMS/HCC) (Primary Dx) Social History Tobacco Use Types Packs/Day Years Used Date Smoking Tobacco: Never Smokeless Tobacco: Never Alcohol Use Standard Drinks/Week Comments No 0 (1 standard drink = 0.6 oz pur e alcohol) Sex and Gender Information Value Date Recorded Sex Assigned at Not on file 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 Gender Identity Not on file Sexual Orientation Not on file documented as of this encounter Plan of Treatment Scheduled Orders Name Type Priority Associated Diagnoses Orde r Schedule CBC with auto differential Lab Routine Multiple myeloma, remission status unspecified (CMS/HCC) Expected: 10/16/2018, Expires: 04/17/2019 Comprehensive metabolic panel Lab Routine Multiple myeloma, remission status unspecified (CMS/HCC) Expected: 10/16/2018, Expires: 04/17/2019 KAPPA/LAMBDA LIGHT CHAINS FREE WITH RATIO, SERUM Lab Routine Multiple myeloma, remission status unspecified (CMS/HCC) Expected: 10/16/2018, Expires: 04/17/2019 Protein Electrophoresis, With Reflex, Serum Lab Routine Multiple myeloma, remission status unspecified (CMS/HCC) Expected: 10/16/2018, Expires: 04/17/2019 documented as of this encounter Visit Diagnoses Diagnosis Multiple myeloma, remission status unspecified (HCC)- Primary documented in this encounter Care Teams Shipyard Painter Relationship Specialty Start Date End Date Erwin Gardner MD [address] [place] [address] PCP - General 07/01/16 documented as of this encounter
--- OUTSIDE RECORDS SUMMARY | 2024-04-15 06:01 | XMS_ITS | Encounter Summary ---
Author Organization [facility] Healthcare Address [address] [place] [address] Care Team Providers Care Circus Roustabout Name Role Phone Darlene Gardner MD Primary Care Provide r Kev Dey MD Unavailable [phone] Amelia Floyd DPM Unavailable [phone] Encounter Details Date Type Department Care Team (Late st Contact Info) Description 06/28/2019 11:00 AM CDT - 06/28/2019 12:15 PM CDT Surgery [facility] Operating Room [address] [place] [address] Amelia Floyd, LAUREN [place] [address] NEEDLE BONE BIOPSY LEFT HALLUX REQUEST JAMSHIDI NEEDLE Surgery Details Date/Time Status Location OR Service Patient Class Case Cl ass Case Type Trauma Case? 06/28/2019 11:00 AM Posted [facility] OPERATING ROOM OR 03 Podiatry Foot / Ankle Outpatient Elective Panel 1 Procedure LRB Anes Op Region Wound Class Comments NEEDLE BONE BIOPSY LEFT HALLUX REQUEST JAMSHIDI NEEDLE Left Monitor Anesthesia Care Foot Class I - Clean DEBRIDEMENT WOUND LEFT FOOT Left Monitor Anesthesia Care Foot Class II - Clean Contaminated DR. FLOYD MARKED THIS CASE URGENT, CAN NOT WAIT 8 WEEKS. TRYING TO AVOID AMPUTATION. 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 No / Unsure 06/26/2019 9:10 AM CDT documented as of this encounter Last Filed Vital Signs Vital Sign Reading Time Taken Comments Blood Pressure 124/71 06/28/2019 9:29 AM CDT Pulse 75 06/28/2019 9:29 AM CDT Temperature 36.1 ??C (96.9 ??F) 06/28/2019 9:29 AM CD T Respiratory Rate 20 06/28/2019 9:29 AM CDT Oxygen Saturation 98% 06/28/2019 9:29 AM CDT Inhaled Oxygen Concentration - - Weight 140.6 kg (309 lb 15.5 oz) 06/28/2019 9:29 AM CDT Height 188 cm (6' 2 ) 06/28/2019 9:29 AM CDT Body Mass Index 39.8 06/28/2019 9:29 AM CDT documented in this encounter Discharge Instructions * Attachments The following attachments cannot be sent through Care Everywhere. * General Anesthesia (Discharge Care) (Botswanan) * Hydrocodone/Acetaminophen (By mouth) (Botswanan) documented in this encounter Medications at Time [...] in this encounter H&P Notes * Amelia Floyd DPM - 06/28/2019 12:10 PM CDT I have reviewed the H&P, examined the patient, and endorse the findings as written. Plan of Care : Based on the above findings, I consider Darlene Caldera to be an acceptable risk for : Procedure(s): NEEDLE BONE BIOPSY LEFT HALLUX REQUEST JAMSHIDI NEEDLE DEBRIDEMENT WOUND LEFT FOOT Source Note - Amelia Floyd DPM - 06/28/2019 10:38 AM CDT Podiatry [...] bone infection or heal the wound. Amelia Floyd DPM 06/28/2019 * Amelia Floyd DPM - 06/28/2019 10:38 AM CDT Podiatry [...] bone infection or heal the wound. Amelia Floyd DPM 06/28/2019 documented in this encounter Miscellaneous Notes * Provider Query - Amelia Floyd DPM - 06/28/2019 2:19 PM CDT Please [...] of the patient???s medical record. Sincerely, Mouna Lucie Ramone [employer] Information Management * Brief Op Note - Amelia Floyd DPM - 06/28/2019 12:30 PM CDT Operative Progress Note Surgical Team: Surgeon(s) and Role: * Amelia Floyd DPM - Primary Anesthesiologist: Espinoza Ragsdale MD ELECTRICIAN UNDERGROUND: Shalonda Gorman CRNA Hospital Fellow: Arcelia Ferreira RN Scrub: Eva Cevallos ZOOLOGY TEACHER: Paulina Mora RN DATE OF SURGERY : [...] - Biopsy / Curettings SURGICAL PATHOLOGY Amelia Floyd DPM 06/28/2019 1229 Implants: Nothing was implanted during the procedure Complications: None Condition on Discharge from the operating room was stable Amelia Floyd DPM Date: 06/28/2019 Time: 12:42 PM No Resident involved on case * Op Note - Amelia Floyd DPM - 06/28/2019 12:00 AM CDT Surgeon Karie OronaPMasterM. Preoperative Diagnoses 1. Left hallux osteomyelitis. 2. [...] prescribed antibiotics and prescriptions were written for [place]ner 5/325as needed for pain. Job ID/VF Job ID: [id number] * Perioperative Nursing Note - Kika Unger RN - 06/26/2019 10:18 AM CDT Patient had an Obstructive Sleep Apnea Score of 5. Notified Kate Mistry, Sleep Authorization Representative, Dr. Babb letter faxed to Dr. Gardner and discharge instructions put in patient chart. * Pre-Procedure Instructions - Kika Unger RN - 06/26/2019 9:26 AM CDT We are pleased that you and your doctor have chosen [facility] for your surgery. We hope that the [...] and Spironolactone. ?? Use no make-up, nail ecuadorean, lotions, oils or powders on your skin. [...] CDT Osteomyelitis of left foot, unspecified type ([facility]) POCT GLUCOSE DEVICE Routine 06/28/2019 1 2:57 [...] Curettings) 06/28/2019 12:29 PM CDT Narrative PATHOLOGY [facility] - 07/02/2019 11:08 AM CDT [facility] results best viewed via link to PDF [facility] Department of Pathology [address] [place], [place] [id number] Final Report Patient Name: ??DARLENE CALDERA Address: ?? [address], ??[place], [place] ??[address] Gender: ??M : ??1950 (Age: 69) Service: ??Surgery Location: ??[facility] Hospital #: ??[id number] Patient Type: ??[facility] Accession # ?[id number] Taken: ??06/28/2019 Received: ??06/28/2019 Accessioned: ??06/28/2019 Reported: ??07/02/2019 Physician(s):Dr Amelia Floyd, DPM Diagnosis: Bone, left hallux, biopsy: ? [...] determined by the Surgical Pathology Department at [facility] as part of an ongoing aircraft quality control inspector program and in compliance with federally mandated [...] characteristics determined by the Surgical Pathology Department [facility]. ??It has not been cleared or approved by the U. S. Food and Drug Administration. us Amelia Floyd [facility] LAB PATHOLOGY ORDERABLES Fi nal Result Performing Organization Address [facility]/ZIP Co de Phone Number PATHOLOGY [facility] [address] [place] [address] * POCT glucose (06/28/2019 12:57 PM CDT) Glucose, POC 90 71 - 98 mg/dL ERIKA [facility] Blood specimen (specimen) 06/28/2019 12:57 PM CDT 06/28/2019 12:57 PM CDT us Amelia Floyd [facility] LAB POCT ORDERABLES - DEVIC E Final Result Performing Organization Address [facility] Co de Phone Number [facility] 1 [facility] [place] [address] * (ABNORMAL) Tissue aerobic and anaerobic culture and gram stain Bone Toe, great, left (06/28/2019 12:31 PM CDT) Direct Specimen Exam Stain: No polymorphonuclear leukocytes seen. No organisms seen. ERIKA RODRIGUEZ (DEAN) Comment:Testing performed by : [facility], [address] [place]., [address] Report Final Report: Few Mixed gram positive microorganisms (.) ERIKA RODRIGUEZ (DEAN) Comment:Testing performed by : [facility], [address] [place]., [address] Organism MIXED GRAM POSITIVE MICROORGANISMS ERIKA RODRIGUEZ (DEAN) Bone (Toe, great, left) 06/28/2019 12:31 PM CDT 06/28/2019 5:34 PM CDT Narrative ERIKA RODRIGUEZ (DEAN) - 07/02/2019 10:56 AM CDT Left distal HALLUX BONE Testing performed by [facility] Microbiology Laboratory ([phone]) Specimens submitted from normally sterile body sites [...] data was last revised on 2019. Amelia Floyd DPM LAB MICROBIOLOGY - GENERAL ORDERABLES Final Result ERIKA RODRIGUEZ ([place]AN) 1 [facility] [place] [address] * (ABNORMAL) POCT glucose (06/28/2019 9:47 AM CDT) Glucose, POC 105(H) 71 - 98 mg/dL ERIKA RODRIGUEZ (DEAN) Blood specimen (specimen) 06/28/2019 9:47 AM CDT 06/28/2019 9:47 AM CDT Amelia Floyd DPM LAB POCT ORDERABLES - DEVIC E Final Result Performing Organization Address [facility]/ZIP Co de Phone Number ERIKA [facility] ([place]) 1 [facility] [place] [address] * Potassium, whole blood (06/28/2019 9:45 AM CDT) Potassium, bld 3.9 3.5 - 5.0 mmol/L E[facility] ([place]) Blood specimen (specimen) 06/28/2019 9:45 AM CDT 06/28/2019 9:49 AM CDT Alberto Babb MD LAB BLOOD ORDERABLES Fin al Result Performing Organization Address [facility] de Phone Number E[facility] ([place]) 1 [facility] [place] [address] * ECG 12 lead (06/28/2019 9:34 AM CDT) 06/28/2019 9:34 AM CDT Narrative [facility] - 06/28/2019 11:31 AM CDT Vent Rate: 86 bpm RR Interval: 694 msec SD Interval: 0 msec QRS Duration: 143 msec QT Interval: 414 msec QTC Interval: 457 msec P-R-T Sebastian: 0 - 12 - 9 degrees ATRIAL FIBRILLATION INDETERMINATE AXIS RIGHT BUNDLE BRANCH BLOCK ??[120+ ms QRS DURATION, UPRIGHT V1, 40+ ms S IN I/aVL/V4/V5/V6] ABNORMAL ECG Electronically Signed By: Cornel Springer MD Alberto Babb MD ECG ORDERABLES Final Re sult Performing Organization Address [facility] Co de Phone Number [facility] [employer] [facility] documented in this encounter Visit Diagnoses Not on filedocumented in this encounter Administered Medications Inactive Administered Medications - up to 3 most recent administrations Medication Order MAR Action Action Date Dose Rate Site acetaminophen (TYLENOL) tablet 1,000 mg 1,000 mg, oral, Once, On Mon06/28/19 at 1000, For 1 dose, Pre-Op, Indications: Pre-Emptive AnalgesiaIndication s:Pre-Emptive Analgesia Given 06/28/2019 9:51 AM CDT 1,000 mg bupivacaine (MARCAINE) 0.5 % (5 mg/mL) preservative free injection As needed, Starting on Mon06/28/19 at 1225, Intra-Op Given 06/28/2019 12:25 PM CDT 10 mL Surgical Site gabapentin (NEURONTIN) capsule 300 mg 300 mg, oral, Once, On Mon06/28/19 at 1000, For 1 dose, Pre-Op Given 06/28/2019 9:51 AM CDT 300 mg povidone-iodine (BETADINE) 10 % ointment As needed, Starting on Mon06/28/19 at 1238, Intra-Op, Indications: Skin DisinfectionIndicat ions:Skin Disinfection Given 06/28/2019 12:38 PM CDT 1 application (deactivated) Surgical Site sodium chloride 0.9 % irrigation As needed, Starting on Mon06/28/19 at 1238, Intra-Op Given 06/28/2019 12:38 PM CDT 500 mL Surgical Site sodium chloride 0.9% infusion 30 mL/hr, intravenous, [...] Intra-Op 1225 (Given - Provid er: Amelia Floyd DPM) povidone-iodine (BETADINE) 10 % ointment (CANCELED) As needed, Starting on Mon06/28/19 at 1238, Intra-Op, Indications: Skin Disinfection 1238 (Given - Provid er: Amelia Folyd DPM) sodium chloride 0.9 % irrigation (CANCELED) As needed, Starting on Mon06/28/19 at 1238, Intra-Op 1238 (Given - Provid er: Amelia Floyd DPM) documented in this encounter Orders Medications Ordered That Savage ht Not Have Been Administered Count Last Ordered Date First Ordered Date fentaNYL (SUBLIMAZE) preserv ative free injection 25 mcg 1 06/28/2019 fentaNYL (SUBLIMAZE) preserv ative free injection 50 mcg 1 06/28/2019 naloxone (NARCAN) 0.4 mg/mL injection 0.04-0.4 mg 1 06/28/2019 ondansetron (ZOFRAN) injection 4 mg 1 06/27 sodium chloride 0.9% flush 0.5-20 mL 1 06/02 Diet Count Last Ordered Date First Orde red Date ADULT DISCHARGE DIET 1 06/28/2019 Nursing Count Last Ordered Date First Orde red Date ACTIVITY 1 06/28/2019 DISCHARGE INSTRUCTIONS 2 06/28/2019 ELEVATE EXTREMITY 1 06/28/2019 FOLLOW UP WITH ESTABLISHED PROVIDER 1 06/27 WOUND CARE 1 06/28/2019 documented in this encounter Care Teams Circus Roustabout Relationship Specialty Start Date End Date Darlene Gardner MD [address] [place] [address] PCP - General 07/01/16 Kev Dey MD [address] [place] [address] Referring Physician Nephrology 05/10/19 Amelia Floyd DPM [address] [place] [address] Consulting Physician Foot and Ankle Surg 06/28/19 documented as of this encounter
--- OUTSIDE RECORDS SUMMARY | 2024-04-15 06:01 | XMS_ITS | Encounter Summary ---
Author Organization [facility] Medical Group Address [address] [facility] [place] [address] Care Team Providers Care Coarse Wire Drawer Name Role Phone Erwin Gardner MD Primary Care Provide r Encounter Details Date Type Department Care Team (Latest Contact Info) Description 02/06/2019 Anticoagulation Visit [facility] [address] [address] Erwin Velasquez MD [address] 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
--- OUTSIDE RECORDS SUMMARY | 2024-04-15 06:01 | XMS_ITS | Encounter Summary ---
Author Organization [facility] Medical Group Address [address] [place] [address] Care Team Providers Care Launch Operator Name Role Phone Erwin Gardner MD Primary Care Provide r Encounter Details Date Type Department Care Team (Latest Contact Info) Description 10/25/2018 Anticoagulation Visit [facility] [address] [address] Erwin Velasquez MD [address] [facility] [address] [place] [address] Chronic atrial fibrillation (CMS/HCC) Social History Tobacco Use Types Packs/Day Years Used Date Smoking Tobacco: Never Smokeless Tobacco: Never Alcohol Use Standard Drinks/Week Comments No 0 (1 standard drink = 0.6 oz pur e alcohol) Sex and Gender Information Value Date Recorded Sex Assigned at Not on file Legal Sex Male 11:57 AM PHARMACY SPECIALIST Gender Identity Not on file Sexual Orientation Not on file documented as of this encounter Plan of Treatment Not on file documented as of this encounter Visit Diagnoses Diagnosis Chronic atrial fibrillation (HCC) Atrial fibrillation documented in this encounter Care Teams Launch Operator Relationship Specialty Start Date End Date Erwin Gardner MD [address] [place] [address] PCP - General 07/01/16 documented as of this encounter
--- OUTSIDE RECORDS SUMMARY | 2024-04-15 06:01 | XMS_ITS | Encounter Summary ---
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
--- OUTSIDE RECORDS SUMMARY | 2024-04-15 06:01 | XMS_ITS | Encounter Summary ---
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
--- OUTSIDE RECORDS SUMMARY | 2024-04-15 06:01 | XMS_ITS | Encounter Summary ---
Author Organization [facility] Address [address] [place] [address] Phone Care Team Providers Care Boxing Instructor Name Role Phone Erwin Gardner MD Primary Care Provide r Encounter Details Date Type Department Care Team (Late st Contact Info) Description 10/30/2018 Telephone 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 Olmstead because he thought Dr. Leonardo was going to release him to his PCP-advised we need recent labs for Dr. Leonardo to see. He will check with [employer] because no new labs at [facility]. documented in this encounter Plan of Treatment Not on file documented as of this encounter Visit Diagnoses Not on filedocumented in this encounter Care Teams Boxing Instructor Relationship Specialty Start Date End Date Erwin Gardner MD [address] [place] [address] PCP - General 07/01/16 documented as of this encounter
--- OUTSIDE RECORDS SUMMARY | 2024-04-15 06:01 | XMS_ITS | Encounter Summary ---
Author Organization [facility] Healthcare Address [address] [place] [address] Care Team Providers Care Slot Editor Name Role Phone Erwin Gardner MD Primary Care Provide r Kev Dey MD Unavailable [phone] Encounter Details Date Type Department Care Team (Late st Contact Info) Description 05/16/2019 11:00 AM PROSPECTING DRILLER HELPER Lab [address] [address] Social History Tobacco Use Types Packs/Day Years Used Date Smoking Tobacco: Never Smokeless Tobacco: Never Alcohol Use Standard Drinks/Week Comments No 0 (1 standard drink = 0.6 oz pur e alcohol) Sex and Gender Information Value Date Recorded Sex Assigned at Not on file Legal Sex Male 11:57 AM 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
--- OUTSIDE RECORDS SUMMARY | 2024-04-15 06:01 | XMS_ITS | Encounter Summary ---
Author Organization [facility] Healthcare Address [address] [place] [address] Care Team Providers Care Pest Management Supervisor Name Role Phone Erwin Gardner MD Primary Care Provide r Kev Dey MD Unavailable [phone] Encounter Details Date Type Department Care Team (Latest Contact Info) Description 05/23/2019 1:58 PM TIN POT OPERATOR - 05/23/2019 11:59 PM TIN POT OPERATOR Hospital Encounter [facility] [address] [place] [address] Amelia Rodrigez, DPM [address] [place] [address] Discharge Disposition: Discharge to home or self care Social History Tobacco Use Types Packs/Day Years Used Date Smoking Tobacco: Never Smokeless Tobacco: Never Alcohol Use Standard Drinks/Week Comments No 0 (1 standard drink = 0.6 oz pur e alcohol) Sex and Gender Information Value Date Recorded Sex Assigned at Not on file Legal Sex Male 11:57 AM TIN POT OPERATOR Gender Identity Not on file Sexual [...] tablets (120 mg total) by mouth daily. 135 tablet 3 05/30/2018 05/28/2019 losartan (COZAAR) 50 mg tablet Take 1 tablet (50 mg total) by mouth daily 90 tablet 3 05/10/2019 05/13/2020 potassium chloride ER (potassium chloride ER) 20 mEq CR tablet Take 1 tablet (20 mEq total) by mouth daily. 90 tablet 3 05/30/2018 05/29/2019 spironolactone (ALDACTONE) 50 mg tablet Take 1 [...] on filedocumented in this encounter Care Teams Pest Management Supervisor Relationship Specialty Start Date End Date Erwin Gardner MD [address] [place] [address] PCP - General 07/01/16 Kev Dey MD [address] [place] [address] Referring Physician Nephrology 05/10/19 documented as of this encounter
--- OUTSIDE RECORDS SUMMARY | 2024-04-15 06:01 | XMS_ITS | Encounter Summary ---
Author Organization [facility] Address [address] [place] [address] Phone Care Team Providers Care Unit Control Worker Name Role Phone Erwin Gardner MD Primary Care Provide r Encounter Details Date Type Department Care Team (Late st Contact Info) Description 10/30/2018 Telephone [facility] Oncology [address] [place] [address] [place] [phone] Laura Evans RN Social History Tobacco Use Types Packs/Day Years Used Date Smoking Tobacco: Never Smokeless Tobacco: Never Alcohol Use Standard Drinks/Week Comments No 0 (1 standard drink = 0.6 oz pur e alcohol) Sex and Gender Information Value Date Recorded Sex Assigned at Not on file 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 Leonardo wants to follow him for 2 years. Will make appt for [place] because he wants to stay with Dr. Leonardo. documented in this encounter Plan of Treatment Not on file documented as of this encounter Visit Diagnoses Not on filedocumented in this encounter Care Teams Unit Control Worker Relationship Specialty Start Date End Date Erwin Gardner MD [address] [place] [address] PCP - General 07/01/16 documented as of this encounter
--- OUTSIDE RECORDS SUMMARY | 2024-04-15 06:01 | XMS_ITS | Encounter Summary ---
Author Organization [facility] Healthcare Address [address] [place] [address] Care Team Providers Care Trim And Burr Operator Name Role Phone Erwin Gardner MD Primary Care Provide r Kev Dey MD Unavailable [phone] Amelia Rodrigez DPM Unavailable [phone] Encounter Details Date Type Department Care Team (Late st Contact Info) Description 06/28/2019 12:12 PM CDT Anesthesia Event [facility] Operating Room [address] [place] [address] Espinoza Ragsdale MD [address] [place] [id number] [place] [id number] [address] Anesthesia Record Procedure Summary Procedure Name Responsible Anesthesiologist Anesthesia Start Time Anesthesia Stop Time NEEDLE BONE BIOPSY LEFT HALLUX REQUEST JAMSHIDI NEEDLE (Left: Foot) Espinoza Ragsdale MD 06/28/19 1212 06/28/19 1248 Events Date Time Event Comment 06/28/2019 1034 1211 In Room 1212 An Start 1212 An Start Data 1217 Start Supplemental O2 1217 An Induction The patient was reevaluated immediately before moderate or deep sedation use and before anesthesia induction. 1218 Anesthesia Ready 1225 Proc Start 1230 Incision Start 1239 Proc Fin 1244 Out of Room 1248 Handoff to RN I completed my handoff [...] disposition at the time of handoff: PACU 1248 An Stop 1249 Release from care Meds Name Total propofol 140 mg lidocaine 2 % PF 100 mg ketamine 25 mg sodium chloride 0.9% infusion 500 mL * Agents Name O2 * Blood No blood administrations on file. Lines, Drains, and Airways Type Details Placement Removal Peripheral IV Placement Date: 06/28/19; Placement Time: 1000; Catheter Size: 20 G; Orientation: Left; Location: Hand; Site Prep: Chlorhexidine; Inserted by: Laura; Insertion Attempts: 1; Patient Tolerance: Tolerated well; Removal Date: 06/28/19; Removal Time: 1408 06/28/19 1000 by Kamila Lei RN 06/28/19 1408 by Kamila Lei RN RETIRED Surgical Site 06/28/19; 1236; Le ft; Toe (Comment which one); BIG TOE; 03/05/24 (Retired LDA, Removed/Completed by Blue [place]yp[place] with LDA Utility); 1213 (Retired LDA, Removed/Completed by Blue [place]ypso with LDA Utility) 06/28/19 1236 by Arcelia Ferreira RN 03/05/24 1213 by Discharge Provider, Automatic documented in this encounter Social History Tobacco Use Types Packs/Day Years Used Date Smoking Tobacco: Never Smokeless Tobacco: Never Alcohol Use Standard Drinks/Week Comments No 0 (1 standard drink = 0.6 oz pur e alcohol) Sex and Gender Information Value Date Recorded Sex Assigned at Not on file 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 No / Unsure 06/26/2019 9:10 AM CDT documented as of this encounter OR Notes * Anesthesia Postprocedure Evaluation - Espinoza Ragsdale MD - 06/28/2019 1:02 PM CDT Patient: Erwin Isaac Procedure Summary Date: 06/28/19 Room / Location: [facility] OR / [facility] OPERATING ROOM Anesthesia Start: 1212 Anesthesia Stop: 1248 Procedures: NEEDLE BONE BIOPSY LEFT HALLUX REQUEST JAMSHIDI NEEDLE (Left Foot) DEBRIDEMENT WOUND LEFT FOOT (Left Foot) Diagnosis: (OSTEOMYELITIS, ULCER) Provider: Amelia Rodrigez DPM Responsible Provider: Espinoza Ragsdale MD Anesthesia Type: general/TIVA ASA Status: 3 Anesthesia Type: general/TIVA Last vitals BP 127/63 Pulse 89 Temp 36.4 ??C (97.6 ??F) (Temporal) Resp 16 SpO2 98% Anesthesia Post Evaluation Patient location during evaluation: PACU Patient participation: complete - patient participated Level of consciousness: fully awake Pain management: adequate Airway patency: adequate Evidence of recall: no Anesthetic complications: no Cardiovascular status: acceptable Respiratory status: acceptable Hydration status: acceptable Pt is: normothermic Nausea/Vomiting status: none * Anesthesia Preprocedure Evaluation - Espinoza Ragsdale MD - 06/28/2019 7:00 AM CDT Images from the original note were not included. Anesthesia Evaluation Erwin Isaac is a 69 y.o. male Procedure(s): NEEDLE BONE BIOPSY LEFT HALLUX REQUEST JAMSHIDI NEEDLE DEBRIDEMENT WOUND LEFT FOOT * No Diagnosis Codes entered * HISTORY Past Medical History Information obtained from: patient and chart. Neurological Neuro/Psych system: negative Cardiovascular + Hypertension + Hyperlipidemia + CHF (no EF recorded in chart) + Atrial fibrillation/flutter - Current Rhythm: atrial fibrillation. Respiratory Respiratory system: negative Hepatic / Heme + History of anemia Gastrointestinal GI system: negative Renal / + Renal disease - CKD Musculoskeletal/Pain Musculoskeletal/Pain system: negative Endocrine / Other + Diabetes mellitus - Diabetes type 2. Diabetic complications: neuropathy. Outpatient insulin use: current. + Obesity (BMI >30) Functional Capacity Functional capacity: <4 METs Patient Active Problem List Diagnosis ??? Atrial fibrillation (CMS/HCC) [I48.91] ??? Cardiomyopathy, idiopathic (CMS/HCC) ??? MGUS (monoclonal gammopathy of unknown significance) Past Medical History: Diagnosis Date ??? Adiposity Obesity ??? Atrial fibrillation (CMS/HCC) ??? CHF (congestive heart failure) (CMS/HCC) ??? Chronic kidney disease Stage III ??? HX OTHER MEDICAL Diabetes Type II ??? Hyperlipidemia ??? Hypertension Hypertension ??? Neuropathy (CMS/HCC) Feet ??? Type 2 diabetes mellitus (CMS/HCC) History reviewed. No pertinent surgical history. No Known Allergies Med List Status: Nurse Complete Set By: Kika Unger RN at 06/26/2019 9:19 AM Taking? Last Dose Start Date End Date Provider atorvastatin (LIPITOR) 20 mg tablet 10/22/18 -- Erwin Velasquez MD Take 1 tablet (20 mg total) by mouth daily Notes: taking as directed carvediloL (COREG) 25 mg tablet -- -- Historical ProviderMD fenofibrate (TRIGLIDE) 160 mg tablet 04/23/19 -- Erwin Velasquez MD Take 1 tablet (160 mg total) by mouth daily fish oil-dha-epa 1,200-144-216 mg capsule -- -- Historical ProviderMD furosemide (LASIX) 80 mg tablet 05/29/19 -- Erwin Velasquez MD Take 1.5 tablets (120 mg total) by mouth daily insulin regular (HumuLIN R, NovoLIN R) 100 unit/mL injection -- -- Historical ProviderMD losartan (COZAAR) 50 mg tablet 05/10/19 -- Erwin Velasquez MD Take 1 tablet (50 mg total) by mouth daily potassium chloride ER (potassium chloride ER) 20 mEq CR tablet 05/29/19 -- Erwin Velasquez MD Take 1 tablet (20 mEq total) by mouth daily spironolactone (ALDACTONE) 50 mg tablet 05/30/18 -- Erwin Velasquez MD Take 1 tablet (50 mg total) by mouth daily. ULTICARE 1 mL 30 gauge x 1/2 syringe 05/24/17 -- Historical ProviderMD warfarin (COUMADIN) 2.5 mg tablet -- -- Historical ProviderMD warfarin (COUMADIN) 5 mg tablet -- -- Historical ProviderMD No current facility-administered medications for this encounter. Current Outpatient Medications: ??? carvediloL (COREG) 25 mg tablet ??? fish oil-dha-epa 1,200-144-216 mg capsule ??? warfarin (COUMADIN) 2.5 mg tablet ??? warfarin (COUMADIN) 5 mg tablet ??? atorvastatin (LIPITOR) 20 mg tablet ??? fenofibrate (TRIGLIDE) 160 mg tablet ??? furosemide (LASIX) 80 mg tablet ??? insulin regular (HumuLIN R, NovoLIN R) 100 unit/mL injection ??? losartan (COZAAR) 50 mg tablet ??? potassium chloride ER (potassium chloride ER) 20 mEq CR tablet ??? spironolactone (ALDACTONE) 50 mg tablet ??? ULTICARE 1 mL 30 gauge x 1/2 syringe Social History Tobacco Use Smoking Status Never Smoker Smokeless Tobacco Never Used Substance and Sexual Activity Alcohol Use No Substance and Sexual Activity Drug Use No Family History Problem Relation Age of Onset ??? Coronary artery disease Mother Coronary artery disease, premature; There were no vitals filed for this visit. PT: No results found for requested labs within last 720 hours. INR: No results found for requested labs within last 720 hours. APTT: No results found for requested labs [...] labs within last 720 hours. BMP Glucose: 06/13/2019: 85 mg/dL Calcium: No results found for requested labs [...] for requested labs within last 720 hours. STOP-Bang Total Score: 5 DOS Physical Exam Medical history, medications, and allergies reviewed. Attestation: I endorse the findings of the anesthesia pre-evaluation assessment dated: 06/28/2019. Airway Exam: Mallampati: III Cervical ROM: FROM TM distance: >4 Jaw ROM: full Cardiovascular Exam: Rate: regular Rhythm: regular Pulmonary Exam: LCTA, bilat Dental Exam: Missing and upper partials (Patient unable to remove upper partial.) Current state: Patient's current state is cooperative and interactive. Anesthesia Plan ASA 3 My patient is approved for the Anesthesia Controlled Medication protocol when under care of a IRONING WORKER Planned anesthesia: General/TIVA Induction: Induction: intravenous. Postoperative Plan: Postoperative administration opioids intended. No postoperative mechanical ventilation intended. Patient's planned disposition post procedure is Floor. Informed Consent: Discussed plan with attending and IRONING WORKER. Anesthesia plan and risks discussed with patient. Plan and Consent Comments: Risk of dental/implant/partial damage discussed. Consent and Attending signature: I and/or my [...] MAR Action Action Date Dose Rate Site ketamine (KETALAR) injection As needed, Starting on Mon06/28/19 at 1217, Anesthesia Intra-op Given 06/28/2019 12:30 PM CDT 12.5 mg Given 06/28/2019 12:17 PM CDT 12.5 mg lidocaine (XYLOCAINE) 20 mg/mL (2 %) preservative free injection As needed, Starting on Mon06/28/19 at 1217, Anesthesia Intra-op Given 06/28/2019 12:17 PM CDT 100 mg propofoL (DIPRIVAN) IV intravenous, As needed, Starting on Mon06/28/19 at 1217, Anesthesia Intra-op Given 06/28/2019 12:37 PM CDT 20 mg Given 06/28/2019 12:33 PM CDT 30 mg Given 06/28/2019 12:27 PM CDT 30 mg sodium chloride 0.9% infusion 30 mL/hr, intravenous, Continuous, Starting on Mon06/28/19 at 1000, Pre-Op Rate/Dose Verify 06/28/2019 12:12 PM CDT 50 mL/hr New Bag 06/28/2019 9:47 AM CDT 30 mL/hr 30 mL/hr documented in this encounter Care Teams Trim And Burr Operator Relationship Specialty Start Date End Date Erwin aGrdner MD [address] [place] [address] PCP - General 07/01/16 Kev Dey MD [address] [place] [address] Referring Physician Nephrology 05/10/19 Amelia Rodrigez DPM [address] [place] [id number] Consulting Physician Foot and Ankle Surg 06/28/19 documented as of this encounter
--- OUTSIDE RECORDS SUMMARY | 2024-04-15 06:01 | XMS_ITS | Encounter Summary ---
Author Organization [facility] Medical Group Address [address] [facility] [address] [place] [address] Care Team Providers Care Bread And Pastry Baker Name Role Phone Erwin Gardner MD Primary Care Provide r Reason for Visit * Reason Comments Follow-up 6 mo fu on cm, a-fib * Cardiology (Routine) - Closed Specialty Diagnoses / Procedures Referred By Contac t Referred To Contact Cardiology Diagnoses Unspecified atrial fibrillation Erwin Gardner MD Phone: tel: fax: [facility] [address] [place] [phone] Phone: tel: fax: Referral ID Status Reason Start Date Expiration Date Visits Re quested Visits Authorized [id number] Closed 10/18/2018 04/02/2019 3 3 Encounter Details Date Type Department Care Team (Late st Contact Info) Description 10/18/2018 8:30 AM CDT Office Visit [facility] [address] [place] [phone] Erwin Velasquez MD [address] [place] [address] [place] [address] [place] [id number] Chronic atrial fibrillation (CMS/HCC) (Primary Dx); Cardiomyopathy, idiopathic (CMS/HCC) Social History Tobacco Use Types Packs/Day Years Used Date Smoking Tobacco: Never Smokeless Tobacco: Never Alcohol Use Standard Drinks/Week Comments No 0 (1 standard drink = 0.6 oz pur e alcohol) Sex and Gender Information Value Date Recorded Sex Assigned at Not on file 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 Gender Identity Not on file Sexual Orientation Not on file documented as of this encounter Last Filed Vital Signs Vital Sign Reading Time Taken Comments Blood Pressure 96/52 10/18/2018 8:43 AM CDT Pulse 86 10/18/2018 8:43 AM CDT Temperature - - Respiratory Rate - - Oxygen Saturation 95% 10/18/2018 8:43 AM CDT Inhaled Oxygen Concentration - - Weight 140.6 kg (310 lb) 10/18/2018 8:43 AM CDT Height 188 cm (6' 2 ) 10/18/2018 8:43 AM CDT Body Mass Index 39.8 10/18/2018 8:43 AM CDT documented in this encounter Progress Notes * Erwin Velasquez MD - 10/18/2018 8:30 AM CDT [facility]IC FOLLOW UP 10/18/2018 Erwin Isaac is a 68 y.o. male who presents for follow up [...] the office today for routine scheduled follow-up. He does not have any symptoms related to his atrial fibrillation and from that respect is doing well. The patient spends most of his time caring for his who was ill with metastatic lung cancer. REVIEW OF SYSTEMS General ROS: negative for [...] 1 tablet (20 mg total) by mouth daily., Disp: 90 tablet, Rfl: 3 ??? carvedilol (COREG) 25 mg tablet, Take 1 tablet (25 mg total) by mouth 2 (two) times a day with meals., Disp: 180 tablet, Rfl: 3 ??? fenofibrate (TRIGLIDE) 160 mg tablet, Take 1 tablet (160 mg total) by mouth daily., Disp: 90 tablet, Rfl: 3 ??? furosemide (LASIX) 80 mg tablet, Take 1.5 tablets (120 mg total) by mouth daily., Disp: 135 tablet, Rfl: 3 ??? insulin NPH (HumuLIN N, NovoLIN N) 100 unit/mL injection, Inject under the skin., Disp: , Rfl: ??? insulin regular (HumuLIN R, NovoLIN R) 100 unit/mL injection, Inject under the skin 3 (three) times a day before meals., Disp: , Rfl: ??? losartan (COZAAR) 50 mg tablet, Take 1 tablet (50 mg total) by mouth daily., Disp: 90 tablet, Rfl: 3 ??? potassium chloride ER (potassium chloride ER) 20 mEq CR tablet, Take 1 tablet (20 mEq total) bymouth daily., Disp: 90 tablet, Rfl: 3 ??? spironolactone (ALDACTONE) 25 mg tablet, Take 1 tablet (25 mg total) by mouth daily. Patient take 2 per day, Disp: 180 tablet, Rfl: 3 ??? spironolactone (ALDACTONE) 50 mg tablet, Take 1 tablet (50 mg total) by mouth daily., Disp: 90 tablet, Rfl: 3 ??? ULTICARE 1 mL 30 gauge x 1/2 syringe, , Disp: , Rfl: ??? warfarin (COUMADIN) 5 mg tablet, Take 5 mg by mouth., Disp: , Rfl: LABS AND OTHER DIAGNOSTIC TESTS No results found for: CHOL No results found for: HDL No results found for: LDLCALC No results found for: TRIG No results found for: CHOLHDL Lab Results Component Value Date WBC 6.2 04/11/2018 HGB 11.9 (L) 04/11/2018 HCT 35.2 (L) 04/11/2018 MCV 89.1 04/11/2018 No lab exists for component: LABALBU PHYSICAL [...] Diagnoses and all orders for this visit: Chronic atrial fibrillation (CMS/HCC) Cardiomyopathy, idiopathic (CMS/HCC) PLAN/RECOMMENDATIONS Continue current rate control and anticoagulation strategy Follow-up at 6 month intervals Erwin Velasquez MD documented in this encounter Miscellaneous Notes * Addendum Note - Crys Vizcarra MA - 10/18/2018 8:30 AM CDTAddended by: CRYS VIZCARRA on: 10/18/2018 04:35 PM Modules accepted: Orders documented in this encounter Plan of Treatment Not on file documented as of this encounter Procedures Procedure Name Priority Date/Time Associated Diagnosis Comments POCT LIPID PANEL Routine 10/18/2018 4:33 PM CDT Chronic atrial fibrillation (CMS/HCC) documented in this encounter Results * POCT lipid panel (10/18/2018 4:33 PM CDT) Cholesterol, POC 191 mg/dL HDL, POC 60 mg/dL Triglycerides, POC 149 mg/dL LDL Cholesterol POC 101 mg/dL Chol/HDL Ratio, POC 3.2 Non-HDL Cholesterol, POC 131 mg/dL Cholesterol Total, POC 191 mg/dL Blood specimen (specimen) 10/18/2018 4:33 PM CDT Erwin Velasquez MD POINT OF CARE TEST ORDER EVY Final Result documented in this encounter Visit Diagnoses Diagnosis Chronic atrial fibrillation (HCC)- Primary Atrial fibrillation Cardiomyopathy, idiopathic (HCC) Other primary cardiomyopathies documented in this encounter Discontinued Medications Medication Sig Discontinue Reason Start Date End Da te insulin NPH (HumuLIN N, NovoLIN N) 100 unit/mL injection Inject under the skin. Duplicate order 10/18/2018 spironolactone (ALDACTONE) 25 mg tablet Take 1 tablet (25 mg total) by mouth daily. Patient take 2 per day Duplicate order 05/30/2018 10/18/2018 documented as of this encounter Care Teams Bread And Pastry Baker Relationship Specialty Start Date End Date Erwin Gardner MD [address] [place] [address] PCP - General 07/01/16 documented as of this encounter
--- OUTSIDE RECORDS SUMMARY | 2024-04-15 06:01 | XMS_ITS | Encounter Summary ---
Author Organization [facility] Medical Group Address [address] [facility] [address] [place] [address] Care Team Providers Care Rn Cardiology Name Role Phone Erwin Gardner MD Primary Care Provide r Kev Dey MD Unavailable [phone] Amelia RodrigezM Unavailable [phone] Encounter Details Date Type Department Care Team (Late st Contact Info) Description 01/29/2019 Telephone [facility] [address] [facility] [address] [facility] [address] [place] [address] Erwin Velasquez MD [address] [place] [address] [place] [address] Social History Tobacco Use Types Packs/Day Years Used Date Smoking Tobacco: Never Smokeless Tobacco: Never Alcohol Use Standard Drinks/Week Comments No 0 (1 standard drink = 0.6 oz pur e alcohol) Sex and Gender Information Value Date Recorded Sex Assigned at Not on file Legal Sex Male 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
--- OUTSIDE RECORDS SUMMARY | 2024-04-15 06:01 | XMS_ITS | Encounter Summary ---
Author Organization [facility] Medical [facility] Address [address] [facility] [address] [place] [address] Care Team Providers Care Case Maker Name Role Phone Erwin Gardner MD Primary Care Provide r Encounter Details Date Type Department Care Team (Latest Contact Info) Description 11/29/2018 Anticoagulation Visit [facility] [address] [phone] Erwin Velasquez MD [address] [facility] [address] [place] [address] Chronic atrial fibrillation (CMS/HCC) Social History Tobacco Use Types Packs/Day Years Used Date Smoking Tobacco: Never Smokeless Tobacco: Never Alcohol Use Standard Drinks/Week Comments No 0 (1 standard drink = 0.6 oz pur e alcohol) Sex and Gender Information Value Date Recorded Sex Assigned at Not on file Legal Sex Male 11:57 AM BUS ESCORT Gender Identity Not on file Sexual Orientation Not on file documented as of this encounter Plan of Treatment Not on file documented as of this encounter Visit Diagnoses Diagnosis Chronic atrial fibrillation (HCC) Atrial fibrillation documented in this encounter Care Teams Case Maker Relationship Specialty Start Date End Date Erwin Gardner MD [address] [place] [address] PCP - General 07/01/16 documented as of this encounter
--- OUTSIDE RECORDS SUMMARY | 2024-04-15 06:01 | XMS_ITS | Encounter Summary ---
Author Organization [facility] Medical [facility] Address [address] [facility] [address] [place] [address] Care Team Providers Care Heliotherapist Name Role Phone Erwin Gardner MD Primary Care Provide r Encounter Details Date Type Department Care Team (Late st Contact Info) Description 05/30/2018 Telephone [facility] [address] [facility] [address] [facility] [address] [place] [address] Erwin Velasuqez MD [address] [place] [address] [place] [address] Social History Tobacco Use Types Packs/Day Years Used Date Smoking Tobacco: Never Smokeless Tobacco: Never Alcohol Use Standard Drinks/Week Comments No 0 (1 standard drink = 0.6 oz pur e alcohol) Sex and Gender Information Value Date Recorded Sex Assigned at Not on file Legal Sex Male 11:57 AM LIQUOR RECTIFIER Gender Identity Not on file Sexual Orientation Not on file documented as of this encounter Ordered Prescriptions Prescription Sig Dispense Quantity Refills Last Filled Start Date End Date spironolactone (ALDACTONE) 25 mg tablet Take 1 tablet (25 mg total) by mouth daily. Patient take 2 per day 180 tablet 3 05/30/2018 9 documented in this encounter Miscellaneous Notes * Telephone Encounter - Crys Parham MA - 05/30/2018 11:46 AM CST Spoke with pharmacy, med is corrected OR RECTIFIER * Telephone Encounter - Celina Millan - 05/30/2018 11:31 AM LIQUOR RECTIFIER dori pharm is stating the instruction on the rx spironolactone 25 mg are incorrect, Pharm will like a call back to discuss [phone] OR RECTIFIER * Telephone Encounter - Crys Parham MA - 05/30/2018 11:10 AM CST Sent med as 25 mg take 2 per day OR RECTIFIER * Telephone Encounter - Eden Mcnally - 05/30/2018 11:00 AM CST Spironolactone 50 mg tabs are on back order. Wyatt from [facility] wants to know if F wants to change pt to 25 mg 2 per day or 100 mg half a tab daily. cb [phone] OR RECTIFIER documented in this encounter Plan of Treatment Not on file documented as of this encounter Visit Diagnoses Not on filedocumented in this encounter Care Teams Heliotherapist Relationship Specialty Start Date End Date Erwin Gardner MD [address] [place] [address] PCP - General 07/01/16 documented as of this encounter
--- OUTSIDE RECORDS SUMMARY | 2024-04-15 06:01 | XMS_ITS | Encounter Summary ---
Author Organization [facility] Medical Group Address [address] [facility] [address] [place] [address] Care Team Providers Care Carousel Operator Name Role Phone Erwin Gardner MD Primary Care Provide r Encounter Details Date Type Department Care Team (Latest Contact Info) Description 05/21/2018 Anticoagulation Visit [facility] [address] [phone] Erwin Velasquez MD [address] [facility] [address] [place] [address] Chronic atrial fibrillation (CMS/HCC) Social History Tobacco Use Types Packs/Day Years Used Date Smoking Tobacco: Never Smokeless Tobacco: Never Alcohol Use Standard Drinks/Week Comments No 0 (1 standard drink = 0.6 oz pur e alcohol) Sex and Gender Information Value Date Recorded Sex Assigned at Not on file Legal Sex Male 11:57 AM CHEMICAL PROCESSING EQUIPMENT REPAIRER Gender Identity Not on file Sexual Orientation Not on file documented as of this encounter Plan of Treatment Not on file documented as of this encounter Visit Diagnoses Diagnosis Chronic atrial fibrillation (HCC) Atrial fibrillation documented in this encounter Care Teams Carousel Operator Relationship Specialty Start Date End Date Erwin Gardner MD [address] [place] [address] PCP - General 07/01/16 documented as of this encounter
--- OUTSIDE RECORDS SUMMARY | 2024-04-15 06:01 | XMS_ITS | Encounter Summary ---
Author Organization [facility] Healthcare Address [address] [place] [address] Care Team Providers Care Delivery Truck Driver Name Role Phone Erwin Gardner MD Primary Care Provide r Kev Dey MD Unavailable [phone] Encounter Details Date Type Department Care Team (Latest Contact Info) Description 06/06/2019 1:51 PM DIRECTOR OF ASSESSING - 06/06/2019 11:59 PM DIRECTOR OF ASSESSING Hospital Encounter [facility] Medicine [address] [place] [address] Amelia Rodrigez, DPM [address] [place] [address] Discharge Disposition: Discharge to home or self care Social History Tobacco Use Types Packs/Day Years Used Date Smoking Tobacco: Never Smokeless Tobacco: Never Alcohol Use Standard Drinks/Week Comments No 0 (1 standard drink = 0.6 oz pur e alcohol) Sex and Gender Information Value Date Recorded Sex Assigned at Not on file Legal Sex Male 11:57 AM DIRECTOR OF ASSESSING Gender Identity Not on file Sexual Orientation [...] on filedocumented in this encounter Care Teams Delivery Truck Driver Relationship Specialty Start Date End Date Erwin Gardner MD [address] [place] [address] PCP - General 07/01/16 Kev Dey MD [address] [place] [address] Referring Physician Nephrology 05/10/19 documented as of this encounter
--- OUTSIDE RECORDS SUMMARY | 2024-04-15 06:01 | XMS_ITS | Encounter Summary ---
Author Organization [facility] Address [address] [facility] [address] [place] [address] Care Team Providers Care Rehab Therapy Manager Name Role Phone Erwin Gardner MD Primary Care Provide r Reason for Visit * Reason Comments Follow-up 6 mo fu on a-fib, cm * Consultation (Routine) - Canceled Specialty Diagnoses / Procedures Referred By Contac t Referred To Contact Cardiology Diagnoses Atrial fibrillation, unspecified type (HCC) Primary cardiomyopathy (HCC) Erwin Gardner MD Phone: tel: fax: [facility] Cardiology [address] [place] [phone] Phone: tel: fax: Referral ID Status Reason Start Date Expiration Date Visits Requested Visits Authorized [id number] Canceled Specialty Services Required 04/25/2019 09/01/2019 4 4 Encounter Details Date Type Department Care Team (Late st Contact Info) Description 04/25/2019 8:30 AM TIER LIFT TRUCK OPERATOR Office Visit [facility] Cardiology [address] [facility] [address] [address] Erwin Velasquez MD [address] [place] [address] [address] [place] [address] Atrial fibrillation, unspecified type (CMS/HCC) (Primary Dx); Cardiomyopathy, idiopathic (CMS/HCC) Social History Tobacco Use Types Packs/Day Years Used Date Smoking Tobacco: Never Smokeless Tobacco: Never Alcohol Use Standard Drinks/Week Comments No 0 (1 standard drink = 0.6 oz pur e alcohol) Sex and Gender Information Value Date Recorded Sex Assigned at Not on file Legal Sex Male 11:57 AM TIER LIFT TRUCK OPERATOR Gender Identity Not on file Sexual Orientation Not on file documented as of this encounter Last Filed Vital Signs Vital Sign Reading Time Taken Comments Blood Pressure 104/60 04/25/2019 8:41 AM TIER LIFT TRUCK OPERATOR Pulse 88 04/25/2019 8:41 AM TIER LIFT TRUCK OPERATOR Temperature - - Respiratory Rate - - Oxygen Saturation 95% 04/25/2019 8:41 AM TIER LIFT TRUCK OPERATOR Inhaled Oxygen Concentration - - Weight 140.2 kg (309 lb) 04/25/2019 8:41 AM TIER LIFT TRUCK OPERATOR Height 188 cm (6' 2 ) 04/25/2019 8:41 AM TIER LIFT TRUCK OPERATOR Body Mass Index 39.67 04/25/2019 8:41 AM TIER LIFT TRUCK OPERATOR documented in this encounter Progress Notes * Erwin Velasquez MD - 04/25/2019 8:30 AM CST [facility] FOLLOW [facility] 04/25/2019 Erwin Fuentes Poncho is a 69 y.o. male who presents [...] office today for routine scheduled follow-up. He has no cardiovascular symptoms to report and from that respect is feeling well. On understandably he is very sad as he is grieving the loss of his of 50 years she about 3 months ago of metastatic lung cancer. REVIEW OF SYSTEMS General [...] daily, Disp: 90 tablet, Rfl: 3 ??? carvedilol (COREG) 25 mg tablet, Take 1 tablet (25 mg total) by mouth 2 (two) times a day with meals., Disp: 180 tablet, Rfl: 3 ??? fenofibrate (TRIGLIDE) 160 mg tablet, Take 1 tablet (160 mg total) by mouth daily, Disp: 90 tablet, Rfl: 3 ??? furosemide [...] mg total) by mouth once for 1 dose, Disp: 90 tablet, Rfl: 0 LABS AND [...] for component: LABALBU PHYSICAL EXAM Vitals BP 104/60 (BP Location: Right arm, Patient Position: Sitting) Pulse 88 Ht 188 cm (6' 2 ) Wt (!) 140.2 kg (309 lb) SpO2 95% BMI 39.67 kg/m?? Physical Examination: General appearance -significantly obese [...] for this visit: Atrial fibrillation, unspecified type (CMS/HCC) Cardiomyopathy, idiopathic (CMS/HCC) PLAN/RECOMMENDATIONS Continue current rate control and anticoagulation strategy Follow-up at 6 month intervals Erwin Velasquez MD LIFT TRUCK OPERATOR documented in this encounter Plan of Treatment Not on file documented as of this encounter Visit Diagnoses Diagnosis Atrial fibrillation, unspecified type (HCC)- Primary Cardiomyopathy, idiopathic (HCC) Other primary cardiomyopathies documented in this encounter Care Teams Rehab Therapy Manager Relationship Specialty Start Date End Date Erwin Gardner MD [address] [place] [address] PCP - General 07/01/16 documented as of this encounter
--- OUTSIDE RECORDS SUMMARY | 2024-04-15 06:01 | XMS_ITS | Encounter Summary ---
Author Organization [facility] Healthcare Address [address] [place] [address] Care Team Providers Care Parking Ramp Attendant Name Role Phone Erwin Gardner MD Primary Care Provide r Kev Dey MD Unavailable [phone] Encounter Details Date Type Department Care Team (Latest Contact Info) Description 06/13/2019 2:26 PM CDT - 06/13/2019 11:59 PM CDT Hospital Encounter [facility] [address] [place] [address] Amelia Rodrigez, DPM [facility] [place] [address] Discharge Disposition: Discharge to home or self care Social History Tobacco Use Types Packs/Day Years Used Date Smoking Tobacco: Never Smokeless Tobacco: Never Alcohol Use Standard Drinks/Week Comments No 0 (1 standard drink = 0.6 oz pur e alcohol) Sex and Gender Information Value Date Recorded Sex Assigned at Not on file Legal Sex Male 11:57 AM TALENT CONSULTANT Gender Identity Not on file Sexual [...] Associated Diagnosis Comments POCT GLUCOSE DEVICE Routine 06/13/2019 3 :38 PM CDT TISSUE AEROBIC CULTURE AND GRAM STAIN Routine 06/13/2019 3:00 PM CDT documented in this encounter Results * POCT glucose (06/13/2019 3:38 PM CDT) Glucose, POC 85 71 - 98 mg/dL ERIKA RODRIGUEZ (DEAN) Blood specimen (specimen) 06/13/2019 3:38 PM CDT 06/13/2019 3:38 PM CDT us Amelia FAY LAB POCT ORDERABLES - DEVIC E Final Result Performing Organization Address City/[facility]/ZIP Co de Phone Number ERIKA JENNIFER (DEAN) 1 [facility] Department [place] [address] * (ABNORMAL) Tissue aerobic culture and gram stain Tissue Toe, great, left (06/13/2019 3:00 PM CDT) Direct Specimen Exam Stain: No polymorphonuclear leukocytes seen. Few Gram Positive Cocci Slide reviewed. ??Review is consistent with original read. ERIKA RODRIGUEZ (DEAN) Comment:Testing performed by : [facility], [address] [place]., [address] Report Final Report: Moderate Mixed skin microorganisms. (.) ERIKA RODRIGUEZ (DEAN) Comment:Testing performed by : [facility], [address] [place]., [address] Organism MIXED SKIN MICROORGANISMS. ERIKA RODRIGUEZ (DEAN) Tissue (Toe, great, left) 06/13/2019 3:00 PM CDT 06/13/2019 8:21 PM CDT Narrative ERIKA RODRIGUEZ (DEAN) - 06/16/2019 12:40 PM CDT Testing performed by [facility] ([phone]) Specimens submitted from normally sterile body sites will have all bacterial morphotypes identified. Specimens that contain grossly mixed miranda and/or are from body sites that are not normally sterile will be examined for Staphylococcus aureus, Pseudomonas aeruginosa, beta-hemolytic strep, vancomycin-resistant Enterococcus and fungus. If any of these are isolated, the organism will be reported. Current interpretive data was last revised on 2016. us Amelia FAY LAB MICROBIOLOGY - GENERAL ORDERABLES Final Result Performing Organization Address City/[facility]/ZIP Co de Phone Number ERIKA RODRIGUEZ (DEAN) 1 [facility] Department of [employer] [place] [address] documented in this encounter Visit Diagnoses Not on filedocumented in this encounter Care Teams Parking Ramp Attendant Relationship Specialty Start Date End Date Erwin Gardner MD [address] [place] [address] PCP - General 07/01/16 Kev Dey MD [address] [place] [address] Referring Physician Nephrology 05/10/19 documented as of this encounter
--- OUTSIDE RECORDS SUMMARY | 2024-04-15 06:01 | XMS_ITS | Encounter Summary ---
Author Organization [facility] Healthcare Address [address] [place] [address] Care Team Providers Care Asbestos Worker Helper Name Role Phone Erwin Gardner MD Primary Care Provide r Kev Dey MD Unavailable [phone] Encounter Details Date Type Department Care Team (Latest Contact Info) Description 06/20/2019 2:33 PM CDT - 06/20/2019 11:59 PM CDT Hospital Encounter [facility] for [facility] Care [facility] Hyper[facility] Medicine [address] [place] [address] Amelia Rodrigez, DPM [facility] [place] [address] Discharge Disposition: Discharge to home or self care Social History Tobacco Use Types Packs/Day Years Used Date Smoking Tobacco: Never Smokeless Tobacco: Never Alcohol Use Standard Drinks/Week Comments No 0 (1 standard drink = 0.6 oz pur e alcohol) Sex and Gender Information Value Date Recorded Sex Assigned at Not on file Legal Sex Male 11:57 AM BAGGAGE PORTER Gender Identity Not on file Sexual Orientation [...] on filedocumented in this encounter Care Teams Asbestos Worker Helper Relationship Specialty Start Date End Date Erwin Gardner MD [address] [facility] [address] PCP - General 07/01/16 Kev Dey MD [address] [place] [address] Referring Physician Nephrology 05/10/19 documented as of this encounter
--- OUTSIDE RECORDS SUMMARY | 2024-04-15 06:01 | XMS_ITS | Encounter Summary ---
Author Organization [facility] Healthcare Address [address] [place] [address] Care Team Providers Care Commercial Attache Name Role Phone Erwin Gardner MD Primary Care Provide r Kev Dey MD Unavailable [phone] Encounter Details Date Type Department Care Team (Latest Contact Info) Description 05/16/2019 9:38 AM GLOBAL PROJECT MANAGER - 05/16/2019 11:59 PM GLOBAL PROJECT MANAGER Hospital Encounter [facility] for [facility] Care and Hyper[facility]ic Medicine [address] [place] [address] Amelia Rodrigez, DPM [address] [place] [address] Discharge Disposition: Discharge to home or self care Social History Tobacco Use Types Packs/Day Years Used Date Smoking Tobacco: Never Smokeless Tobacco: Never Alcohol Use Standard Drinks/Week Comments No 0 (1 standard drink = 0.6 oz pur e alcohol) Sex and Gender Information Value Date Recorded Sex Assigned at Not on file Legal Sex Male 11:57 AM GLOBAL PROJECT MANAGER Gender Identity Not on file Sexual [...] Procedure Name Priority Date/Time Associated Diagnosis Comments TISSUE AEROBIC AND ANAEROBIC CULTURE AND GRAM STAIN Routine 05/16/2019 10:33 AM GLOBAL PROJECT MANAGER documented in this encounter Results * Tissue aerobic and anaerobic culture and gram stain Tissue Toe, great, left (05/16/2019 10:33 AM GLOBAL PROJECT MANAGER) Direct Specimen Exam Stain: No polymorphonuclear leukocytes seen. No organisms seen. ERIKA RODRIGUEZ (DEAN) Comment:Testing performed by : [facility], [address] [facility], [place]., [address] Report Final Report: Rare Mixed microorganisms. ERIKA RODRIGUEZ (DEAN) Comment:Testing performed by : [facility], [address] [facility], [place]., [address] Organism MIXED MICROORGANISMS. ERIKA RODRIGUEZ (DEAN) Tissue (Toe, great, left) 05/16/2019 10:33 AM GLOBAL PROJECT MANAGER 05/16/2019 2:20 PM GLOBAL PROJECT MANAGER Narrative ERIKA RODRIGUEZ (DEAN) - 05/19/2019 11:27 AM GLOBAL PROJECT MANAGER Testing performed by [facility]biology Laboratory ([phone]) Specimens submitted from normally sterile body sites will have all bacterial morphotypes identified. Specimens that contain grossly mixed miranda and/or are from body sites that are not normally sterile will be examined for Staphylococcus aureus, Pseudomonas aeruginosa, beta-hemolytic strep, vancomycin-resistant Enterococcus, Bacteroides fragilis, Clostridium perfringens and fungus. If any of these are isolated, the organism will be reported. Current interpretive data was last revised on 2016. Amelia FAY LAB MICROBIOLOGY - GENERAL ORDERABLES Final Result ERIKA RODRIGUEZ (DEAN) [address] [facility] Department [place] [address] documented in this encounter Visit Diagnoses Not on filedocumented in this encounter Care Teams Commercial Attache Relationship Specialty Start Date End Date Erwin Gardner MD [address] [place] [address] PCP - General 07/01/16 Kev Dey MD [address] [place] [address] Referring Physician Nephrology 05/10/19 documented as of this encounter
--- OUTSIDE RECORDS SUMMARY | 2024-04-15 06:01 | XMS_ITS | Encounter Summary ---
Author Organization [facility] Address [address] [facility] [address] [place] [address] Care Team Providers Care Supervising Editor Trailer Name Role Phone Erwin Gardner MD Primary Care Provide r Encounter Details Date Type Department Care Team (Late st Contact Info) Description 06/25/2018 Telephone [facility] [address] [phone] Erwin Velasquez MD [address] [address] Social History Tobacco Use Types Packs/Day Years Used Date Smoking Tobacco: Never Smokeless Tobacco: Never Alcohol Use Standard Drinks/Week Comments No 0 (1 standard drink = 0.6 oz pur e alcohol) Sex and Gender Information Value Date Recorded Sex Assigned at Not on file Legal Sex Male 11:57 AM SPIRITUAL CARE COORDINATOR Gender Identity Not on file Sexual Orientation Not on file documented as of this encounter Miscellaneous Notes * Telephone Encounter - Anuja Jovel RN - 06/25/2018 1:31 PM CDT New standing order place in epic for PT/INR. Call placed to pt to make aware. * Telephone Encounter - Celina Millan - 06/25/2018 1:19 PM CDT Sherron howard Santiago called requesting a standing order be faxed to [phone], pt is at the lab waiting. documented in this encounter Plan of Treatment Not on file documented as of this encounter Visit Diagnoses Not on filedocumented in this encounter Care Teams Supervising Editor Trailer Relationship Specialty Start Date End Date Erwin Gardner MD [address] [place] [address] PCP - General 07/01/16 documented as of this encounter
--- OUTSIDE RECORDS SUMMARY | 2024-04-15 06:02 | XMS_ITS | Encounter Summary ---
Author Organization [facility] Address [address] [facility] [address] [place] [address] Care Team Providers Care Operations Lead Name Role Phone Erwin Gardner MD Primary Care Provide r Encounter Details Date Type Department Care Team (Latest Contact Info) Description 10/02/2017 Anticoagulation Visit [facility] [address] [facility] [address] [facility] [address] [place] [address] Erwin Velasquez MD [address] [facility] [address] [address] [place] [address] Chronic atrial fibrillation (CMS/HCC) Social History Tobacco Use Types Packs/Day Years Used Date Smoking Tobacco: Never Smokeless Tobacco: Never Alcohol Use Standard Drinks/Week Comments No 0 (1 standard drink = 0.6 oz pur e alcohol) Sex and Gender Information Value Date Recorded Sex Assigned at Not on file Legal Sex Male 11:57 AM VIDEO SYSTEMS ENGINEER Gender Identity Not on file Sexual Orientation Not on file documented as of this encounter Plan of Treatment Not on file documented as of this encounter Visit Diagnoses Diagnosis Chronic atrial fibrillation (HCC) Atrial fibrillation documented in this encounter Care Teams Operations Lead Relationship Specialty Start Date End Date Erwin Gardner MD [address] [place] [address] PCP - General 07/01/16 documented as of this encounter
--- OUTSIDE RECORDS SUMMARY | 2024-04-15 06:02 | XMS_ITS | Encounter Summary ---
Author Organization [facility] Address [address] [facility] [address] [place] [address] Care Team Providers Care Academic Coordinator Name Role Phone Erwin Gardner MD Primary Care Provide r Reason for Visit * Reason Comments Follow-up 6 MONTH F/U ON A-FIB * Cardiology (Routine) - Closed Specialty Diagnoses / Procedures Referred By Contac t Referred To Contact Cardiology Diagnoses Unspecified atrial fibrillation and atrial flutter Erwin Gardner MD Phone: tel: fax: [facility] [address] [place] [phone] Phone: tel: fax: Referral ID Status Reason Start Date Expiration Date Visits Re quested Visits Authorized [id number] Closed 07/14/2017 10/13/2017 1 Encounter Details Date Type Department Care Team (Late st Contact Info) Description 07/18/2017 8:15 AM CDT Office Visit [facility] [address] [place] [phone] Erwin Velasquez MD [address] [place] [address] [place] [address] [place] [address] Chronic atrial fibrillation (CMS/HCC) (Primary Dx); Cardiomyopathy, idiopathic (CMS/HCC); Lipid screening Social History Tobacco Use Types Packs/Day Years Used Date Smoking Tobacco: Never Smokeless Tobacco: Never Alcohol Use Standard Drinks/Week Comments No 0 (1 standard drink = 0.6 oz pur e alcohol) Sex and Gender Information Value Date Recorded Sex Assigned at Not on file 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 Gender Identity Not on file Sexual Orientation Not on file documented as of this encounter Last Filed Vital Signs Vital Sign Reading Time Taken Comments Blood Pressure 98/68 07/18/2017 8:24 AM CDT Pulse 96 07/18/2017 8:24 AM CDT Temperature - - Respiratory Rate - - Oxygen Saturation 95% 07/18/2017 8:24 AM CDT Inhaled Oxygen Concentration - - Weight 141.7 kg (312 lb 8 oz) 07/18/2017 8:24 AM CDT Height 188 cm (6' 2 ) 07/18/2017 8:24 AM CDT Body Mass Index 40.12 07/18/2017 8:24 AM CDT documented in this encounter Progress Notes * Erwin Velasquez MD - 07/18/2017 8:15 AM CDT [facility] 07/18/2017 Erwin Isaac is a 67 y.o. male who presents for follow up [...] today for routine scheduled follow-up. Overall he feels very well and doesnot describe any cardiovascular complaints. He has no where nurse of his atrial fibrillation any longer with sustained activity he does become short of breath which of course is not surprising. He has no symptoms of decompensated heart failure. REVIEW OF SYSTEMS General ROS: negative for [...] pruritus and rash HOME MEDICATIONS Current Outpatient Prescriptions: ??? atorvastatin (LIPITOR) 20 mg tablet, Take 1 tablet (20 mg total) by mouth daily., Disp: 90 tablet, Rfl: 3 ??? carvedilol (COREG) 25 mg tablet, take 1 by Oral route 2 times every day, Disp: 180, Rfl: 3 ??? fenofibrate (TRIGLIDE) 160 mg tablet, Take 1 tablet (160 mg total) by mouth daily., Disp: 90 tablet, Rfl: 1 ??? furosemide (LASIX) 80 mg tablet, Take 1.5 tablets (120 mg total) by mouth daily., Disp: 135 tablet, Rfl: 1 ??? insulin [...] by mouth daily., Disp: 90 tablet, Rfl: 1 ??? metFORMIN (GLUCOPHAGE) 500 mg tablet, Take 1,000 mg by mouth 2 (two) times a day with meals., Disp: , Rfl: ??? potassium chloride ER (potassium chloride ER) 20 mEq CR tablet, Take 1 tablet (20 mEq total) bymouth daily., Disp: 90 tablet, Rfl: 1 ??? spironolactone (ALDACTONE) 50 mg tablet, Take 1 tablet (50 mg total) by mouth daily., Disp: 90 tablet, Rfl: 1 ??? ULTICARE 1 mL 30 gauge x 1/2 syringe, , Disp: , Rfl: ??? warfarin (COUMADIN) 5 mg tablet, Take once daily or as directed., Disp: 30 tablet, Rfl: 1 LABS AND OTHER DIAGNOSTIC TESTS No results found for: CHOL No results found for: HDL No results found for: LDLCALC No results found for: TRIG No results found for: CHOLHDL No results found for: WBC, HGB, HCT, MCV, PLT No lab exists for component: LABALBU PHYSICAL EXAM There were no vitals filed for this visit. Physical Examination: General appearance [...] Addendum Note - Shakira Bourne MA - 07/18/2017 8:15 AM CDTAddended by: SHAKIRA BOURNE on: 07/18/2017 05:47 PM Modules accepted: Orders documented in this encounter Plan of Treatment Not on file documented as of this encounter Procedures Procedure Name Priority Date/Time Associated Diagnosis Comments POCT LIPID PANEL Routine 07/18/2017 5:47 PM CDT Lipid screening documented in this encounter Results * POCT lipid panel (07/18/2017 5:47 PM CDT) Cholesterol, POC 204 mg/dL HDL, POC 55 mg/dL Triglycerides, POC 146 mg/dL LDL Cholesterol POC 119 mg/dL Chol/HDL Ratio, POC 3.7 Non-HDL Cholesterol, POC 148 mg/dL Cholesterol Total, POC 204 mg/dL Blood specimen (specimen) 07/18/2017 5:47 PM CDT us Erwin Velasquez MD POINT OF CARE TEST ORDER EVY Final Result documented in this encounter Visit Diagnoses Diagnosis Chronic atrial fibrillation (HCC)- Primary Atrial fibrillation Cardiomyopathy, idiopathic (HCC) Other primary cardiomyopathies Lipid screening Screening for lipoid disorders documented in this encounter Historical Medications * This list may reflect changes made after this encounter. Medication Sig Dispense Quantity Refills Last Filled Start D ate End Date ULTICARE 1 mL 30 gauge x 1/2 syringe 05/24/2017 added in this encounter Care Teams Academic Coordinator Relationship Specialty Start Date End Date Erwin Gardner MD [address] [place] [address] PCP - General 07/01/16 documented as of this encounter
--- OUTSIDE RECORDS SUMMARY | 2024-04-15 06:02 | XMS_ITS | Encounter Summary ---
Author Organization [facility] Address [address] [facility] [address] [place] [address] Care Team Providers Care Application Engineer Name Role Phone Erwin Gardner MD Primary Care Provide r Encounter Details Date Type Department Care Team (Late st Contact Info) Description 08/11/2017 Telephone [facility] [address] [phone] Erwin Velasquez MD [address] [address] Social History Tobacco Use Types Packs/Day Years Used Date Smoking Tobacco: Never Smokeless Tobacco: Never Alcohol Use Standard Drinks/Week Comments No 0 (1 standard drink = 0.6 oz pur e alcohol) Sex and Gender Information Value Date Recorded Sex Assigned at Not on file 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 * Telephone Encounter - Celina Tolbert - 08/11/2017 8:30 AM CDT PT will like a call back to review over his BP. documented in this encounter Plan of Treatment Not on file documented as of this encounter Visit Diagnoses Not on filedocumented in this encounter Care Teams Application Engineer Relationship Specialty Start Date End Date Erwin Gardner MD [address] [place] [address] PCP - General 07/01/16 documented as of this encounter
--- OUTSIDE RECORDS SUMMARY | 2024-04-15 06:02 | XMS_ITS | Encounter Summary ---
Author Organization [facility] Medical Group Address [address] [place] [address] Care Team Providers Care Acquisitions Librarian Name Role Phone Erwin Gardner MD Primary Care Provide r Encounter Details Date Type Department Care Team (Late st Contact Info) Description 07/11/2017 Telephone [facility] [address] [facility] [address] [facility] 102 [place] [address] Erwin Velasquez MD [address] [facility] [address] [place] [address] Social History Tobacco Use Types Packs/Day Years Used Date Smoking Tobacco: Never Smokeless Tobacco: Never Alcohol Use Standard Drinks/Week Comments No 0 (1 standard drink = 0.6 oz pur e alcohol) Sex and Gender Information Value Date Recorded Sex Assigned at Not on file 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 Told , no more IBU or any otherNSAID since pt is on warfarin. He can take tylenol arthritis, use ice and/or call PCP . Pt has appointment on to see orthopedist, has a prior history of knee surgery for ligament repair per . todl to discuss medications with ortho for pain relief. documented in this encounter Plan of Treatment Not on file documented as of this encounter Visit Diagnoses Not on filedocumented in this encounter Care Teams Acquisitions Librarian Relationship Specialty Start Date End Date Erwin Gardner MD [address] [place] [address] PCP - General 07/01/16 documented as of this encounter
--- OUTSIDE RECORDS SUMMARY | 2024-04-15 06:02 | XMS_ITS | Encounter Summary ---
Author Organization [facility] Medical Group Address [address] [place] [address] Care Team Providers Care Casino Cashier Manager Name Role Phone Erwin Gardner MD Primary Care Provide r Encounter Details Date Type Department Care Team (Latest Contact Info) Description 11/04/2016 Anticoagulation Visit [facility] [address] [facility] [address] [place] [address] Erwin Velasquez MD [address] [place] [address] [place] [address] Atrial fibrillation, unspecified type (CMS/HCC) Social History Tobacco Use Types Packs/Day Years Used Date Smoking Tobacco: Never Assessed Alcohol Use Standard Drinks/Week Comments No 0 (1 standard drink = 0.6 oz pur e alcohol) Sex and Gender Information Value Date Recorded Sex Assigned at Not on file 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 Gender Identity Not on file Sexual Orientation Not on file documented as of this encounter Plan of Treatment Not on file documented as of this encounter Procedures Procedure Name Priority Date/Time Associated Diagnosis Comments PROTIME-INR Routine 11/03/2016 5:01 PM CDT documented in this encounter Results * (ABNORMAL) Protime-INR (11/03/2016 5:01 PM CDT) INR 2.40(A) 0.9 - 1.1 [facility] Blood specimen (specimen) us Historical Provider LAB BLOOD ORDERABLES Judy sharpe Result [facility] documented in this encounter Visit Diagnoses Diagnosis Atrial fibrillation, unspecified type (HCC) documented in this encounter Care Teams Casino Cashier Manager Relationship Specialty Start Date End Date Erwin Gardner MD [address] [place] [address] PCP - General 07/01/16 documented as of this encounter
--- OUTSIDE RECORDS SUMMARY | 2024-04-15 06:02 | XMS_ITS | Encounter Summary ---
Author Organization [facility] Address [address] [place] [address] Phone Care Team Providers Care Shop Manager Name Role Phone Erwin Gardner MD Primary Care Provide r Reason for Visit * Oncology (Routine) - Closed Specialty Diagnoses / Procedures Referred By Contac t Referred To Contact Hematology and Oncology / Oncology Diagnoses Multiple myeloma not having achieved remission (CMS/HCC) (HCC) [facility] Procedures [facility] CLINIC APPOINTMENT REQUEST RETURN [facility] [address] [place] [address] Phone: tel: German Leonardo MD [address] [place] [address] Phone: tel: fax: Referral ID Status Reason Start Date Expiration Date V isits Requested Visits Authorized [id number] Closed Specialty Services Required 04/17/2018 08/31/2018 6 6 Encounter Details Date Type Department Care Team (Late st Contact Info) Description 04/17/2018 10:45 AM CORPORATE PLANNING MANAGER Office Visit [facility] Oncology [address] [place] [address] German Leonardo MD [address] [place] [address] [id number] Multiple myeloma not having achieved remission (CMS/HCC) (Primary Dx) Social History Tobacco Use Types Packs/Day Years Used Date Smoking Tobacco: Never Smokeless Tobacco: Never Alcohol Use Standard Drinks/Week Comments No 0 (1 standard drink = 0.6 oz pur e alcohol) Sex and Gender Information Value Date Recorded Sex Assigned at Not on file Legal Sex Male 11:57 AM CORPORATE PLANNING MANAGER Gender Identity Not on file Sexual Orientation Not on file documented as of this encounter Last Filed Vital Signs Vital Sign Reading Time Taken Comments Blood Pressure 112/72 04/17/2018 11:36 AM CORPORATE PLANNING MANAGER Pulse - - Temperature - - Respiratory Rate - - Oxygen Saturation - - Inhaled Oxygen Concentration - - Weight 141.2 kg (311 lb 3.2 oz) 019 11:36 AM CORPORATE PLANNING MANAGER Height 188 cm (6' 2 ) 04/17/2018 11:36 AM CORPORATE PLANNING MANAGER Body Mass Index 39.96 04/17/2018 11:36 AM CORPORATE PLANNING MANAGER documented in this encounter Progress Notes * German Leonardo MD - 04/17/2018 10:45 AM CST Medical Oncology Clinic Note Visit Date: 04/17/2018 Requesting Provider: Erwin Gardner* PrimaryCcare Physician: Erwin Isaac 68 y.o. male Chief Complaint : The patient returns today for reassessment and further recommendations regarding further evaluationand management of his MGUS . INTERVAL HISTORY: The patient is a 66-year-old male who [...] evaluation and management with no new complaints. Review of Systems Constitutional: Negative for appetite change, chills, diaphoresis, fatigue, fever, unexpected weight change, malaise, weight change, no recent illnesses and in good health. HENT: Negative for hearing loss, lump/mass, mouth sores, nosebleeds, sore throat, tinnitus, troubleswallowing, voice change, dry mouth, difficulty hearing and [...] ideas. The patient is not nervous/anxious. Objective Vitals: Vitals BP 112/72 (BP Location: Right arm) Ht 188 cm (6' 2 ) Wt (!) 141.2 kg (311 lb 3.2 oz) BMI 39.96 kg/m?? Physical Exam Constitutional: He is oriented [...] thought content normal. Vitals reviewed. Lab/Radiology/Diagnostic Review: Recent Results (from the past 336 hour(s)) Comprehensive metabolic panel Collection Time: 04/11/18 8:23 AM Result Value Ref Range Glucose 178 (H) 65 - 99 mg/dL BUN 30 (H) 7 - 25 mg/dL Creatinine 1.83 (H) 0.70 - 1.25 mg/dL eGFR NON-AFR. LIBYAN 37 (L) > OR = 60 mL/min/1.73m2 EGFR 43 (L) > OR = 60 mL/min/1.73m2 BUN/creat ratio 16 6 - 22 (calc) Sodium 133 (L) 135 - 146 mmol/L Potassium, pl 4.0 3.5 - 5.3 mmol/L Chloride 98 98 - 110 mmol/L CO2 29 20 - 32 mmol/L Calcium 9.4 8.6 - 10.3 mg/dL Protein, sr 7.2 6.1 - 8.1 g/dL Albumin 4.2 3.6 - 5.1 g/dL GLOBULIN 3.0 1.9 - 3.7 g/dL (calc) Alb/glob ratio 1.4 1.0 - 2.5 (calc) Bilirubin, total 0.5 0.2 - 1.2 mg/dL Alk phos 54 40 - 115 U/L AST 20 10 - 35 U/L ALT (SGPT) 20 9 - 46 U/L CBC with auto differential Collection Time: 04/11/18 8:23 AM Result Value Ref Range WBC 6.2 3.8 - 10.8 Thousand/uL RBC, POC 3.95 (L) 4.20 - 5.80 Million/uL Hgb 11.9 (L) 13.2 - 17.1 g/dL Hct 35.2 (L) 38.5 - 50.0 % MCV 89.1 80.0 - 100.0 fL MCH 30.1 27.0 - 33.0 pg MCHC 33.8 32.0 - 36.0 g/dL Rdw 12.9 11.0 - 15.0 % Platelets 225 140 - 400 Thousand/uL MPV 11.3 7.5 - 12.5 fL Neutrophils, abs 3,577 1,500 - 7,800 cells/uL Neutrophil bands, abs CANCELED 0 - 750 cells/uL Metamyelocytes, abs CANCELED 0 cells/uL Absolute Myelocytes CANCELED 0 cells/uL Promyelocytes, abs CANCELED 0 cells/uL Lymphocytes, abs 1,773 850 - 3,900 cells/uL Monocyte abs 657 200 - 950 cells/uL Eosinophils, abs 143 15 - 500 cells/uL Basophils, abs 50 0 - 200 cells/uL Blast, cell CANCELED 0 cells/uL NRBC, abs CANCELED 0 cells/uL Neutrophils 57.7 % Neutrophilic bands CANCELED % Neutrophilic metamyelocytes CANCELED % Myelocytes CANCELED % Neutrophilic promyelocytes CANCELED % Lymphocytes 28.6 % Reactive lymph CANCELED 0 - 10 % Monocytes 10.6 % Eosinophils 2.3 % Basophils 0.8 % Blasts CANCELED % NRBC CANCELED 0 /100 WBC Comment CANCELED Protein Electrophoresis, With Reflex, Serum Collection Time: 04/11/18 8:23 AM Result Value Ref Range Protein, sr 7.2 6.1 - 8.1 g/dL ALBUMIN 3.9 3.8 - 4.8 g/dL Alpha-1 Globulin 0.3 0.2 - 0.3 g/dL Alpha-2 Globuliin 0.7 0.5 - 0.9 g/dL Beta 1 globulin 0.5 0.4 - 0.6 g/dL Beta 2 globulin 0.4 0.2 - 0.5 g/dL Gamma globulin 1.4 0.8 - 1.7 g/dL Abnormal protein band 0.8 (H) NONE DETECTED g/dL Abnormal protein band 2 CANCELED NONE DETECTED g/dL Abnormal protein band 3 CANCELED NONE DETECTED g/dL SPE, interp KAPPA/LAMBDA LIGHT CHAINS FREE WITH RATIO, SERUM Collection Time: 04/11/18 8:23 AM Result Value Ref Range White light chain, free 34.7 (H) 3.3 - 19.4 mg/L Lambda light chain, free 69.3 (H) 5.7 - 26.3 mg/L White/Lambda light chains free with ratio 0.50 0.26 - 1.65 Protime-INR Collection Time: 04/11/18 8:27 AM Result Value Ref Range INR 2.9 (H) PT 29.5 (H) 9.0 - 11.5 sec No results found. Patient Active Problem List Diagnosis Date Noted ??? Multiple myeloma not having achieved remission (CMS/HCC) 10/13/2017 ??? Cardiomyopathy, idiopathic (CMS/HCC) 07/18/2017 ??? Atrial fibrillation (CMS/HCC) [I48.91] 10/06/2016 Assessment: 1. This patient does have chronic kidney disease--although his most recent creatinine is better, 2. He has multiple potential causes for this -- a kidney biopsy has not yet been done., 3. He does have a very small circulating paraprotein which almost certainly represents MGUS . 4. I still don't think that a bone marrow exam is necessary at this time, Plan: 1. I will follow him now at six-month intervals., 2. I will obtain the following laboratory studies: SPEP CMP K/L CBC ....04/18/17-13. --04/17/2018; German Leonardo MD ORATE PLANNING MANAGER documented in this encounter Plan of Treatment Not on file documented as of this encounter Procedures Procedure Name Priority Date/Time Associated Diagnosis Comments KAPPA/LAMBDA LIGHT CHAINS FREE WITH RATIO, SERUM Routine 04/11/2018 8:23 AM CORPORATE PLANNING MANAGER Multiple myeloma not having achieved remission (CMS/HCC) CBC WITH AUTO DIFFERENTIAL Routine 04/11/2018 8:23 AM CORPORATE PLANNING MANAGER Multiple myeloma not having achieved remission (CMS/HCC) PROTEIN ELECTROPHORESIS, WITH REFLEX, SERUM Routine 04/11/2018 8:23 AM CORPORATE PLANNING MANAGER Multiple myeloma not having achieved remission (CMS/HCC) COMPREHENSIVE METABOLIC PANEL Routine 04/11/2018 8:23 AM CORPORATE PLANNING MANAGER Multiple myeloma not having achieved remission (CMS/HCC) documented in this encounter Results * (ABNORMAL) KAPPA/LAMBDA LIGHT CHAINS FREE WITH RATIO, SERUM (04/11/2018 8:23 AM CORPORATE PLANNING MANAGER) White light chain, free 34.7(H) 3.3 - 19.4 mg/L [facility] [place] Lambda light chain, free 69.3(H) 5.7 - 26.3 mg/L [facility] [place] White/Lambda light chains free with ratio 0.50 0.26 - 1.65 [facility] [place] [...] following response to therapy of these disorders. Serum 04/11/2018 8:23 AM CORPORATE PLANNING MANAGER 04/11/2018 8:24 AM CORPORATE PLANNING MANAGER Narrative Resulting Agency Comment Performing Organization Information: ?Site ID: [place] ?Name: [facility] ?Address: [address] [address] ?Director: Taurus Yen D.O. MPH us German Leonardo MD LAB BLOOD ORDERABLES Final Re sult [facility] [place] * (ABNORMAL) Protein Electrophoresis, With Reflex, Serum (04/11/2018 8:23 AM CORPORATE PLANNING MANAGER) Protein, sr 7.2 6.1 - 8.1 g/dL [facility] [place] ALBUMIN 3.9 3.8 - 4.8 g/dL [facility] [place] Alpha-1 Globulin 0.3 0.2 - 0.3 g/dL [facility] [place] Alpha-2 Globuliin 0.7 0.5 - 0.9 g/dL [facility] [place] Beta-1 globulin 0.5 0.4 - 0.6 g/dL [facility] [place] Beta 2 globulin 0.4 0.2 - 0.5 g/dL [facility] [place] Gamma globulin 1.4 0.8 - 1.7 g/dL [facility] [place] Abnormal protein band 0.8(H) NONE DETECTED g/dL [facility] [place] Abnormal protein band 2 CANCELED NONE DETECTED g/dL [facility] [place] Comment:Result canceled by t he ancillary Abnormal protein band 3 CANCELED NONE DETECTED g/dL [facility] [place] Comment:Result canceled by t he ancillary SPE, interp [facility] [place] Comment: Restricted band (M-spike) migrating in the gamma region. Consider serum immunofixation to rule out a monoclonal protein if clinically indicated. Blood specimen (specimen) 04/11/2018 8:23 AM CORPORATE PLANNING MANAGER 04/11/2018 8:24 AM CORPORATE PLANNING MANAGER Narrative Resulting Agency Comment Performing Organization Information: ?Site ID: [place] ?Name: [facility] ?Address: [facility] [address] [address] ?Director: Taurus Yen D.O., MPH German Leonardo MD LAB BLOOD ORDERABLES Final Re sult [facility] [place] * (ABNORMAL) CBC with auto differential (04/11/2018 8:23 AM CORPORATE PLANNING MANAGER) WBC 6.2 3.8 - 10.8 Thousand/ uL [facility] [place] RBC, POC 3.95(L) 4.20 - 5.80 Million/u L [facility] [place] Hgb 11.9(L) 13.2 - 17.1 g/dL [facility] [place] Hct 35.2(L) 38.5 - 50.0 % [facility] [place] MCV 89.1 80.0 - 100.0 fL [facility] [place] MCH 30.1 27.0 - 33.0 pg [facility] [place] MCHC 33.8 32.0 - 36.0 g/dL [facility] [place] Rdw 12.9 11.0 - 15.0 % [facility] [place] Platelets 225 140 - 400 Thousand/ uL [facility] [place] MPV 11.3 7.5 - 12.5 fL [facility] [place] Neutrophils, abs 3,577 1,500 - 7,800 cells/uL [facility] [place] Neutrophil bands, abs CANCELED 0 - 750 cells/uL [facility] [place] Comment:Result canceled by t he ancillary Metamyelocytes, abs CANCELED 0 cells/uL [facility] [place] Comment:Result canceled by t he ancillary Absolute Myelocytes CANCELED 0 cells/uL [facility] [place] Comment:Result canceled by t he ancillary Promyelocytes, abs CANCELED 0 cells/uL [facility] [place] Comment:Result canceled by t he ancillary Lymphocytes, abs 1,773 850 - 3,900 cells/uL [facility] [place] Monocyte abs 657 200 - 950 cells/uL [facility] [place] Eosinophils, abs 143 15 - 500 cells/uL [facility] [place] Basophils, abs 50 0 - 200 cells/uL [facility] [place] Blast, cell CANCELED 0 cells/uL [facility] [place] Comment:Result canceled by t he ancillary NRBC abs CANCELED 0 cells/uL [facility] [place] Comment:Result canceled by t he ancillary Neutrophils 57.7 % [facility] [place] Neutrophilic bands CANCELED % [facility] [place] Comment:Result canceled by t he ancillary Metamyelocyte pct CANCELED % [facility] [place] Comment:Result canceled by t he ancillary Myelocyte pct CANCELED % [facility] [place] Comment:Result canceled by t he ancillary Promyelocyte pct CANCELED % [facility] [place] Comment:Result canceled by t he ancillary Lymphocyte pct 28.6 % [facility] [place] Reactive lymph CANCELED 0 - 10 % [facility] [place] Comment:Result canceled by t he ancillary Monocytes 10.6 % [facility] [place] Eosinophils 2.3 % [facility] [place] Basophils 0.8 % [facility] [place] Blast pct CANCELED % [facility] [place] Comment:Result canceled by t he ancillary NRBC CANCELED 0 /100 WBC [facility] [place] Comment:Result canceled by t he ancillary Comment CANCELED [facility] [place] Comment:Result canceled by t he ancillary Blood specimen (specimen) 04/11/2018 8:23 AM CORPORATE PLANNING MANAGER 04/11/2018 8:24 AM CORPORATE PLANNING MANAGER Narrative Resulting Agency Comment Performing Organization Information: ?Site ID: [place] ?Name: [facility] ?Address: [address] [place], [place] [address] [address] ?Director: Taurus Yen D.O., MPH German Leonardo MD LAB BLOOD ORDERABLES Final Re sult [facility] [place] * (ABNORMAL) Comprehensive metabolic panel (04/11/2018 8:23 AM CORPORATE PLANNING MANAGER) Glucose 178(H) 65 - 99 mg/dL [facility] [place] Comment: ? Fasting reference interval For someone without known diabetes, a glucose value >125 mg/dL indicates that they may have diabetes and this should be confirmed with a follow-up test. BUN 30(H) 7 - 25 mg/dL [facility] [place] Creatinine 1.83(H) 0.70 - 1.25 mg/dL [facility] [place] Comment: For patients >49 years of age, the reference limit for Creatinine is approximately 13% higher for people identified as -[place]. eGFR NON-AFR. LIBYAN 37(L) > OR = 60 mL/min/1. 73m2 [facility] [place] EGFR 43(L) > OR = 60 mL/min/1. 73m2 [facility] [place] BUN/creat ratio 16 6 - 22 (calc) [facility] [place] Sodium 133(L) 135 - 146 mmol/L [facility] [place] Potassium, pl 4.0 3.5 - 5.3 mmol/L [facility] [place] Chloride 98 98 - 110 mmol/L [facility] [place] CO2 29 20 - 32 mmol/L [facility] [place] Calcium 9.4 8.6 - 10.3 mg/dL [facility] [place] Protein, sr 7.2 6.1 - 8.1 g/dL [facility] [place] Albumin 4.2 3.6 - 5.1 g/dL [facility] [place] GLOBULIN 3.0 1.9 - 3.7 g/dL (calc) [facility] [place] Alb/glob ratio 1.4 1.0 - 2.5 (calc) [facility] [place] Bilirubin, total 0.5 0.2 - 1.2 mg/dL [facility] [place] Alk phos 54 40 - 115 U/L [facility] [place] AST 20 10 - 35 U/L [facility] [place] ALT (SGPT) 20 9 - 46 U/L [facility] [place] Blood specimen (specimen) 04/11/2018 8:23 AM CORPORATE PLANNING MANAGER 04/11/2018 8:24 AM CORPORATE PLANNING MANAGER Narrative Resulting Agency Comment Performing Organization Information: ?Site ID: [place] ?Name: [facility] ?Address: [address] [place] [address] ?Director: Taurus Yen D.O., MPH German Leonardo MD LAB BLOOD ORDERABLES Final Re sult [facility] [place] documented in this encounter Visit Diagnoses Diagnosis Multiple myeloma not having achieved remission (CMS/HCC) (HCC)- Primary documented in this encounter Orders Appointment Requests Count Last Ordered Date Fi rst Ordered Date ON[facility]N CLINIC APPOINTMENT REQUEST 1 019 documented in this encounter Care Teams Shop Manager Relationship Specialty Start Date End Date Erwin Gardner MD [address] [place] [address] PCP - General 07/01/16 documented as of this encounter
--- OUTSIDE RECORDS SUMMARY | 2024-04-15 06:02 | XMS_ITS | Encounter Summary ---
Author Organization [facility] Address [address] [place] [address] Care Team Providers Care Vocational Rehab Consultant Name Role Phone Erwin Gardner MD Primary Care Provide r Encounter Details Date Type Department Care Team (Latest Contact Info) Description 06/07/2017 Anticoagulation Visit [facility] [address] [facility] [address] [place] [address] Arpit De MD [address] [facility] [address] [place] [address] Chronic atrial fibrillation (CMS/HCC) Social History Tobacco Use Types Packs/Day Years Used Date Smoking Tobacco: Never Smokeless Tobacco: Never Alcohol Use Standard Drinks/Week Comments No 0 (1 standard drink = 0.6 oz pur e alcohol) Sex and Gender Information Value Date Recorded Sex Assigned at Not on file Legal Sex Male 11:57 AM MINES SAFETY ENGINEER Gender Identity Not on file Sexual Orientation Not on file documented as of this encounter Plan of Treatment Not on file documented as of this encounter Procedures Procedure Name Priority Date/Time Associated Diagnosis Comments PROTIME-INR Routine 06/06/2017 documented in this encounter Results * (ABNORMAL) Protime-INR (06/06/2017) INR 2.10(A) 0.9 - 1.1 [facility] Blood specimen (specimen) us Historical Provider LAB BLOOD ORDERABLES Judy sharpe Result [facility] documented in this encounter Visit Diagnoses Diagnosis Chronic atrial fibrillation (HCC) Atrial fibrillation documented in this encounter Care Teams Vocational Rehab Consultant Relationship Specialty Start Date End Date Erwin Gardner MD [address] [place], [place] [id number] PCP - General 07/01/16 documented as of this encounter
--- OUTSIDE RECORDS SUMMARY | 2024-04-15 06:02 | XMS_ITS | Encounter Summary ---
Author Organization [facility] Address [address] [place] [address] Care Team Providers Care Transmission Maintenance Supervisor Name Role Phone Erwin Gardner MD Primary Care Provide r Encounter Details Date Type Department Care Team (Latest Contact Info) Description 01/06/2017 Anticoagulation Visit [facility] [address] [address] Erwin Velasquez MD [address] [address] Atrial fibrillation, unspecified type (CMS/HCC) Social History Tobacco Use Types Packs/Day Years Used Date Smoking Tobacco: Never Assessed Alcohol Use Standard Drinks/Week Comments No 0 (1 standard drink = 0.6 oz pur e alcohol) Sex and Gender Information Value Date Recorded Sex Assigned at Not on file Legal Sex Male 11:57 AM NEWS SPECIALIST Gender Identity Not on file Sexual Orientation Not on file documented as of this encounter Plan of Treatment Not on file documented as of this encounter Procedures Procedure Name Priority Date/Time Associated Diagnosis Comments PROTIME-INR Routine 01/05/2017 1:15 PM CDT documented in this encounter Results * (ABNORMAL) Protime-INR (01/05/2017 1:15 PM CDT) INR 2.90(A) 0.9 - 1.1 [facility] Blood specimen (specimen) us Historical Provider LAB BLOOD ORDERABLES Judy sharpe Result [facility] documented in this encounter Visit Diagnoses Diagnosis Atrial fibrillation, unspecified type (HCC) documented in this encounter Care Teams Transmission Maintenance Supervisor Relationship Specialty Start Date End Date Erwin Gardner MD [address] [place] [address] PCP - General 07/01/16 documented as of this encounter
--- OUTSIDE RECORDS SUMMARY | 2024-04-15 06:02 | XMS_ITS | Encounter Summary ---
Author Organization [facility] Address [address] [place] [address] Care Team Providers Care Client Hr Manager Name Role Phone Erwin Gardner MD Primary Care Provide r Encounter Details Date Type Department Care Team (Latest Contact Info) Description 10/06/2016 Anticoagulation Visit [facility] [address] [facility] [facility] [address] [place] [address] Erwin Velasquez MD [address] [place] [address] Atrial fibrillation, unspecified type (CMS/HCC) Social History Tobacco Use Types Packs/Day Years Used Date Smoking Tobacco: Never Assessed Alcohol Use Standard Drinks/Week Comments No 0 (1 standard drink = 0.6 oz pur e alcohol) Sex and Gender Information Value Date Recorded Sex Assigned at Not on file Legal Sex Male 11:57 AM STRIPPER BLACK AND WHITE Gender Identity Not on file Sexual Orientation Not on file documented as of this encounter Plan of Treatment Not on file documented as of this encounter Procedures Procedure Name Priority Date/Time Associated Diagnosis Comments PROTIME-INR Routine 10/05/2016 10:15 AM CDT documented in this encounter Results * (ABNORMAL) Protime-INR (10/05/2016 10:15 AM CDT) INR 2.90(A) 0.9 - 1.1 [facility] Blood specimen (specimen) us Historical Provider LAB BLOOD ORDERABLES Judy sharpe Result [facility] documented in this encounter Visit Diagnoses Diagnosis Atrial fibrillation, unspecified type (HCC) documented in this encounter Care Teams Client Hr Manager Relationship Specialty Start Date End Date Erwin Gardner MD [address] [place] [address] PCP - General 07/01/16 documented as of this encounter
--- OUTSIDE RECORDS SUMMARY | 2024-04-15 06:02 | XMS_ITS | Encounter Summary ---
Author Organization [facility] Address [address] [place] [address] Phone Care Team Providers Care Stamping Die Try Out Worker Name Role Phone Erwin Gardner MD Primary Care Provide r Encounter Details Date Type Department Care Team (Late st Contact Info) Description 10/17/2017 9:45 AM CDT Office Visit [facility] Oncology [address] [facility] [address] [place] [address] German Leonardo MD [address] [place] [id number] Multiple myeloma not having achieved remission (CMS/HCC) (Primary Dx) Social History Tobacco Use Types Packs/Day Years Used Date Smoking Tobacco: Never Smokeless Tobacco: Never Alcohol Use Standard Drinks/Week Comments No 0 (1 standard drink = 0.6 oz pur e alcohol) Sex and Gender Information Value Date Recorded Sex Assigned at Not on file Legal Sex Male 11:57 AM RADIATION THERAPY TECHNICIAN Gender Identity Not on file Sexual Orientation Not on file documented as of this encounter Last Filed Vital Signs Vital Sign Reading Time Taken Comments Blood Pressure 102/62 10/17/2017 9:58 AM CDT Pulse - - Temperature - - Respiratory Rate - - Oxygen Saturation - - Inhaled Oxygen Concentration - - Weight 142.4 kg (314 lb) 10/17/2017 9:58 AM CDT Height 190.5 cm (6' 3 ) 10/17/2017 9:58 AM CDT Body Mass Index 39.25 10/17/2017 9:58 AM CDT documented in this encounter Progress Notes * German Leonardo MD - 10/17/2017 9:45 AM CDT Medical Oncology Clinic Note Visit Date: 10/17/2017 Requesting Provider: Erwin Gardner* PrimaryCcare Physician: Erwin Isaac 67 y.o. male Chief Complaint : The patient [...] assessment. He has had no hospitalizations. His butchers have been a bit elevated. He just had his left wrist is drawn yesterday. 10/17/2017--The patient returns today for reassessment and further recommendations regarding furtherevaluation and management with no new complaints. Review the patient's laboratory studies showed a serum creatinine has improved and his M protein is actually better. His hemoglobin is quite stable. Review of Systems Constitutional: Negative for appetite [...] The patient is not nervous/anxious. Objective Vitals: Vitals: 10/17/17 0958 BP: 102/62 Physical Exam Constitutional: He is oriented to [...] or any previous visit (from the past 336 hour(s)). No results found. Patient Active Problem List Diagnosis Date Noted ??? Multiple myeloma not having achieved remission ([facility]) 10/13/2017 ??? Cardiomyopathy, idiopathic ([facility]) 07/18/2017 ??? Atrial fibrillation ([facility]) [I48.91] 10/06/2016 Assessment: 1. This patient does have chronic kidney disease--although his most recent creatinine is better, 2. He has multiple potential causes for this -- a kidney biopsy has not yet been done., 3. He does have a very small circulating paraprotein which almost certainly represents MGUS his measure M protein is actually better this visit.., 4. I still don't think that a bone marrow exam is necessary at this time, Plan: 1. I will follow him now at six-month intervals., 2. I will obtain the following laboratory studies: SPEP CMP K/L CBC ....04/18/17- 1. . --10/17/2017; German Leonardo MD documented in this encounter Plan of Treatment Scheduled Orders Name Type Priority Associated Diagnoses Orde r Schedule CBC with auto differential Lab Routine Multiple myeloma not having achieved remission (CMS/HCC) Expected: 04/05/2018, Expires: 10/17/2018 Comprehensive metabolic panel Lab Routine Multiple myeloma not having achieved remission (CMS/HCC) Expected: 04/05/2018, Expires: 10/17/2018 Protein electrophoresis, serum Lab Routine Multiple myeloma not having achieved remission (CMS/HCC) Expected: 04/05/2018, Expires: 10/17/2018 KAPPA/LAMBDA LIGHT CHAINS FREE WITH RATIO, SERUM Lab Routine Multiple myeloma not having achieved remission (CMS/HCC) Expected: 04/05/2018, Expires: 10/17/2018 documented as of this encounter Visit Diagnoses Diagnosis Multiple myeloma not having achieved remission (CMS/HCC) (HCC)- Primary documented in this encounter Orders Appointment Requests Count Last Ordered Date Fi rst Ordered Date ONCBCN CLINIC APPOINTMENT REQUEST 1 019 documented in this encounter Care Teams Stamping Die Try Out Worker Relationship Specialty Start Date End Date Erwin Gardner MD [address] [place] [address] PCP - General 07/01/16 documented as of this encounter
--- OUTSIDE RECORDS SUMMARY | 2024-04-15 06:02 | XMS_ITS | Encounter Summary ---
Author Organization [facility] Address [address] [place] [address] Care Team Providers Care Dumper Operator Name Role Phone Erwin Gardner MD Primary Care Provide r Encounter Details Date Type Department Care Team (Latest Contact Info) Description 03/10/2017 Anticoagulation Visit [facility] [address] [facility] [address] [place] [phone] Erwin Velasquez MD [address] [facility] [address] [place] [address] Chronic atrial fibrillation (CMS/HCC) Social History Tobacco Use Types Packs/Day Years Used Date Smoking Tobacco: Never Smokeless Tobacco: Never Alcohol Use Standard Drinks/Week Comments No 0 (1 standard drink = 0.6 oz pur e alcohol) Sex and Gender Information Value Date Recorded Sex Assigned at Not on file Legal Sex Male 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 Gender Identity Not on file Sexual Orientation Not on file documented as of this encounter Plan of Treatment Not on file documented as of this encounter Procedures Procedure Name Priority Date/Time Associated Diagnosis Comments PROTIME-INR Routine 03/09/2017 documented in this encounter Results * (ABNORMAL) Protime-INR (03/09/2017) INR 2.70(A) 0.9 - 1.1 [facility] Blood specimen (specimen) us Historical Provider LAB BLOOD ORDERABLES Judy sharpe Result [facility] documented in this encounter Visit Diagnoses Diagnosis Chronic atrial fibrillation (HCC) Atrial fibrillation documented in this encounter Care Teams Dumper Operator Relationship Specialty Start Date End Date Erwin Gardner MD [address] [place] [address] PCP - General 07/01/16 documented as of this encounter
--- OUTSIDE RECORDS SUMMARY | 2024-04-15 06:02 | XMS_ITS | Encounter Summary ---
Author Organization [facility] Address [address] [place] [address] Care Team Providers Care Loan Examiner Name Role Phone Erwin Gardner MD Primary Care Provide r Encounter Details Date Type Department Care Team (Latest Contact Info) Description 12/07/2017 Anticoagulation Visit [facility] [address] [address] Erwin Velasquez MD [address] [facility] [address] [place] [address] Chronic atrial fibrillation (CMS/HCC) Social History Tobacco Use Types Packs/Day Years Used Date Smoking Tobacco: Never Smokeless Tobacco: Never Alcohol Use Standard Drinks/Week Comments No 0 (1 standard drink = 0.6 oz pur e alcohol) Sex and Gender Information Value Date Recorded Sex Assigned at Not on file Legal 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
--- OUTSIDE RECORDS SUMMARY | 2024-04-15 06:02 | XMS_ITS | Encounter Summary ---
Author Organization [facility] Address [address] [place] [address] Care Team Providers Care Cash Sales Audit Clerk Name Role Phone Erwin Gardner MD Primary Care Provide r Encounter Details Date Type Department Care Team (Late st Contact Info) Description 09/05/2017 Telephone [facility] [address] [facility] [address] [facility] [address] [place] [address] Erwin Velasquez MD [address] [facility] [address] [place] [address] Social History Tobacco Use Types Packs/Day Years Used Date Smoking Tobacco: Never Smokeless Tobacco: Never Alcohol Use Standard Drinks/Week Comments No 0 (1 standard drink = 0.6 oz pur e alcohol) Sex and Gender Information Value Date Recorded Sex Assigned at Not on file Legal Sex Male 11:57 AM MANAGER PRIVATE Gender Identity Not on file Sexual Orientation Not on file documented as of this encounter Miscellaneous Notes * Telephone Encounter - Leigh Smith RN - 09/05/2017 12:16 PM CDT Disability parking placard form completed. Patient notified that it is ready to be picked up at [facility] office. documented in this encounter Plan of Treatment Not on file documented as of this encounter Visit Diagnoses Not on filedocumented in this encounter Care Teams Cash Sales Audit Clerk Relationship Specialty Start Date End Date Erwin Gardner MD [address] [place] [address] PCP - General 07/01/16 documented as of this encounter
--- OUTSIDE RECORDS SUMMARY | 2024-04-15 06:02 | XMS_ITS | Encounter Summary ---
Author Organization [facility] Address [address] [place] [address] Care Team Providers Care Help Desk Consultant Name Role Phone Erwin Gardner MD Primary Care Provide r Reason for Visit * Reason Comments Follow-up 6 MO FU A-FIB * Cardiology (Routine) - Closed Specialty Diagnoses / Procedures Referred By Contherman t Referred To Contact Cardiology Diagnoses Unspecified atrial fibrillation Erwin Gardner MD Phone: tel: fax: [facility] [address] [place] [phone] Phone: tel: fax: Referral ID Status Reason Start Date Expiration Date Visits Re quested Visits Authorized [id number] Closed 01/17/2018 05/03/2018 3 3 Encounter Details Date Type Department Care Team (Late st Contact Info) Description 04/05/2018 8:15 AM MANAGER EMS Office Visit [facility] [address] [place] [phone] Erwin Velasquez MD [address] [place] [address] Cardiomyopathy, idiopathic (CMS/HCC) (Primary Dx); Chronic atrial fibrillation (CMS/HCC) Social History Tobacco Use Types Packs/Day Years Used Date Smoking Tobacco: Never Smokeless Tobacco: Never Alcohol Use Standard Drinks/Week Comments No 0 (1 standard drink = 0.6 oz pur e alcohol) Sex and Gender Information Value Date Recorded Sex Assigned at Not on file Legal Sex Male 11:57 AM MANAGER EMS Gender Identity Not on file Sexual Orientation Not on file documented as of this encounter Last Filed Vital Signs Vital Sign Reading Time Taken Comments Blood Pressure 98/54 04/05/2018 8:27 AM MANAGER EMS Pulse 78 04/05/2018 8:27 AM MANAGER EMS Temperature - - Respiratory Rate - - Oxygen Saturation 96% 04/05/2018 8:27 AM MANAGER EMS Inhaled Oxygen Concentration - - Weight 141.1 kg (311 lb) 04/05/2018 8:27 AM MANAGER EMS Height 188 cm (6' 2 ) 04/05/2018 8:27 AM MANAGER EMS Body Mass Index 39.93 04/05/2018 8:27 AM MANAGER EMS documented in this encounter Progress Notes * Erwin Velasquez MD - 04/05/2018 8:15 AM CST [facility] CLINIC FOLLOW UP 04/05/2018 Erwin Isaac is a 68 y.o. male [...] for routine scheduled follow-up. He does not describe any cardiovascular symptoms or problems today. 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 fenofibrate (TRIGLIDE) 160 mg tablet, Take [...] daily., Disp: 90 tablet, Rfl: 1 ??? potassium chloride ER (potassium chloride ER) [...] for component: LABALBU PHYSICAL EXAM Vitals BP 98/54 (BP Location: Right arm, Patient Position: Sitting) Pulse 78 Ht 188 cm (6' 2 ) Wt (!) 141.1 kg (311 lb) SpO2 96% BMI 39.93 kg/m?? Physical Examination: General appearance -significantly obese [...] orders for this visit: Cardiomyopathy, idiopathic (CMS/HCC) Chronic atrial fibrillation (CMS/HCC) PLAN/RECOMMENDATIONS Continue current rate control and anticoagulation strategy Follow-up at 6 month intervals Erwin Velasquez MD [facility] documented in this encounter Plan of Treatment Not on file documented as of this encounter Visit Diagnoses Diagnosis Cardiomyopathy, idiopathic (HCC)- Primary Other primary cardiomyopathies Chronic atrial fibrillation (HCC) Atrial fibrillation documented in this encounter Discontinued Medications Medication Sig Discontinue Reason Start Date End Da te metFORMIN (GLUCOPHAGE) 500 mg tablet Take 1,000 mg by mouth 2 (two) times a day with meals. Discontinued by another clinician 04/05/2018 warfarin (COUMADIN) 5 mg tablet Take once daily or as directed. Discontinued by another clinician 01/30/2018 04/05/2018 documented as of this encounter Historical Medications * This list may reflect changes made after this encounter. warfarin (COUMADIN) 5 mg tablet Take 5 mg by mouth. 01/28/2019 added in this encounter Care Teams Help Desk Consultant Relationship Specialty Start Date End Date Erwin Gardner MD [address] [place] [address] PCP - General 07/01/16 documented as of this encounter
--- OUTSIDE RECORDS SUMMARY | 2024-04-15 06:02 | XMS_ITS | Encounter Summary ---
Author Organization [facility] Address [address] [facility] [place] [address] Care Team Providers Care Giver Name Role Phone Erwin Gardner MD Primary Care Provide r Encounter Details Date Type Department Care Team (Latest Contact Info) Description 12/07/2016 Anticoagulation Visit [facility] [address] [facility] [address] [place] [address] Erwin Velasquez MD [address] [place] [address] Atrial fibrillation, unspecified type (CMS/HCC) Social History Tobacco Use Types Packs/Day Years Used Date Smoking Tobacco: Never Assessed Alcohol Use Standard Drinks/Week Comments No 0 (1 standard drink = 0.6 oz pur e alcohol) Sex and Gender Information Value Date Recorded Sex Assigned at Not on file Legal 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 Gender Identity Not on file Sexual Orientation Not on file documented as of this encounter Plan of Treatment Not on file documented as of this encounter Procedures Procedure Name Priority Date/Time Associated Diagnosis Comments PROTIME-INR Routine 12/06/2016 11:14 AM CDT documented in this encounter Results * (ABNORMAL) Protime-INR (12/06/2016 11:14 AM CDT) INR 2.40(A) 0.9 - 1.1 [facility] Blood specimen (specimen) us Historical Provider LAB BLOOD ORDERABLES Judy sharpe Result [facility] documented in this encounter Visit Diagnoses Diagnosis Atrial fibrillation, unspecified type (HCC) documented in this encounter Care Teams Giver Relationship Specialty Start Date End Date Erwin Gardner MD [address] [place] [address] PCP - General 07/01/16 documented as of this encounter
--- OUTSIDE RECORDS SUMMARY | 2024-04-15 06:02 | XMS_ITS | Encounter Summary ---
Author Organization [facility] Address [address] [facility] [address] [place] [address] Care Team Providers Care Air Transportation Provider Name Role Phone Erwin Gardner MD Primary Care Provide r Encounter Details Date Type Department Care Team (Latest Contact Info) Description 04/12/2017 Anticoagulation Visit [facility] [address] [address] Erwin Velasquez MD [address] [facility] [address] [place] [address] Chronic atrial fibrillation (CMS/HCC) Social History Tobacco Use Types Packs/Day Years Used Date Smoking Tobacco: Never Smokeless Tobacco: Never Alcohol Use Standard Drinks/Week Comments No 0 (1 standard drink = 0.6 oz pur e alcohol) Sex and Gender Information Value Date Recorded Sex Assigned at Not on file Legal 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 Male 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 Gender Identity Not on file Sexual Orientation Not on file documented as of this encounter Plan of Treatment Not on file documented as of this encounter Procedures Procedure Name Priority Date/Time Associated Diagnosis Comments PROTIME-INR Routine 04/11/2017 documented in this encounter Results * (ABNORMAL) Protime-INR (04/11/2017) INR 2.10(A) 0.9 - 1.1 [facility] Blood specimen (specimen) us Historical Provider LAB BLOOD ORDERABLES Judy sharpe Result [facility] documented in this encounter Visit Diagnoses Diagnosis Chronic atrial fibrillation (HCC) Atrial fibrillation documented in this encounter Care Teams Air Transportation Provider Relationship Specialty Start Date End Date Erwin Gardner MD [address] [place] [address] PCP - General 07/01/16 documented as of this encounter
--- OUTSIDE RECORDS SUMMARY | 2024-04-15 06:02 | XMS_ITS | Encounter Summary ---
Author Organization [facility] Address [address] [facility] [address] [place] [address] Care Team Providers Care Set Up Mechanic Stamping Machines Name Role Phone Erwin Gardner MD Primary Care Provide r Encounter Details Date Type Department Care Team (Latest Contact Info) Description 03/19/2018 Anticoagulation Visit [facility] [address] [phone] Erwin Velasquez MD [address] [facility] [address] [place] [address] Chronic atrial fibrillation (CMS/HCC) Social History Tobacco Use Types Packs/Day Years Used Date Smoking Tobacco: Never Smokeless Tobacco: Never Alcohol Use Standard Drinks/Week Comments No 0 (1 standard drink = 0.6 oz pur e alcohol) Sex and Gender Information Value Date Recorded Sex Assigned at Not on file Legal 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
--- OUTSIDE RECORDS SUMMARY | 2024-04-15 06:02 | XMS_ITS | Encounter Summary ---
Author Organization [facility] Address [address] [facility] [address] [place] [address] Care Team Providers Care Assembler Leather Goods Name Role Phone Erwin Gardner MD Primary Care Provide r Encounter Details Date Type Department Care Team (Latest Contact Info) Description 02/08/2017 Anticoagulation Visit [facility] [address] [address] Erwin Velasquez MD [address] [address] Chronic atrial fibrillation (CMS/HCC) Social History Tobacco Use Types Packs/Day Years Used Date Smoking Tobacco: Never Smokeless Tobacco: Never Alcohol Use Standard Drinks/Week Comments No 0 (1 standard drink = 0.6 oz pur e alcohol) Sex and Gender Information Value Date Recorded Sex Assigned at Not on file Legal Sex Male 11:57 AM VICTIMS ADVOCATE CLERK/SPECIALIST Gender Identity Not on file Sexual Orientation Not on file documented as of this encounter Plan of Treatment Not on file documented as of this encounter Procedures Procedure Name Priority Date/Time Associated Diagnosis Comments PROTIME-INR Routine 02/04/2017 9:38 AM CDT documented in this encounter Results * (ABNORMAL) Protime-INR (02/04/2017 9:38 AM CDT) INR 2.50(A) 0.9 - 1.1 [facility] Blood specimen (specimen) us Historical Provider LAB BLOOD ORDERABLES Judy sharpe Result [facility] documented in this encounter Visit Diagnoses Diagnosis Chronic atrial fibrillation (HCC) Atrial fibrillation documented in this encounter Care Teams Assembler Leather Goods Relationship Specialty Start Date End Date Erwin Gardner MD [address] [place] [address] PCP - General 07/01/16 documented as of this encounter
--- OUTSIDE RECORDS SUMMARY | 2024-04-15 06:02 | XMS_ITS | Encounter Summary ---
Author Organization [facility] Address [address] [facility] [address] [place] [address] Care Team Providers Care Edge Bonder Name Role Phone Erwin Gardner MD Primary Care Provide r Encounter Details Date Type Department Care Team (Latest Contact Info) Description 07/10/2017 Anticoagulation Visit [facility] [address] [facility] [address] [facility] 102 [place] [address] Erwin Velasquez MD [address] [facility] [address] [address] [place] [address] Chronic atrial fibrillation (CMS/HCC) Social History Tobacco Use Types Packs/Day Years Used Date Smoking Tobacco: Never Smokeless Tobacco: Never Alcohol Use Standard Drinks/Week Comments No 0 (1 standard drink = 0.6 oz pur e alcohol) Sex and Gender Information Value Date Recorded Sex Assigned at Not on file Legal Sex Male 11: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
--- OUTSIDE RECORDS SUMMARY | 2024-04-15 06:02 | XMS_ITS | Encounter Summary ---
Author Organization [facility] Address [address] [facility] [place] [address] Care Team Providers Care Manager Chemistry Name Role Phone Erwin Gardner MD Primary Care Provide r Reason for Visit * Reason Onset Date Comments confirm appointment 07/17/2017 Encounter Details Date Type Department Care Team (Late st Contact Info) Description 07/17/2017 Telephone [facility] [address] [facility] [address] [facility] 102 [place] [address] Erwin Velasquez MD [address] [facility] [address] [facility] 102 [place] [address] confirm appointment Social History Tobacco Use Types Packs/Day Years Used Date Smoking Tobacco: Never Smokeless Tobacco: Never Alcohol Use Standard Drinks/Week Comments No 0 (1 standard drink = 0.6 oz pur e alcohol) Sex and Gender Information Value Date Recorded Sex Assigned at Not on file Legal Sex Male 11:57 AM AUDIT INTERN Gender Identity Not on file Sexual Orientation Not on file documented as of this encounter Miscellaneous Notes * Telephone Encounter - Crys Parham MA - 07/17/2017 12:57 PM CDT Verbally spoke with patient to confirm appointment on 07-18-17 documented in this encounter Plan of Treatment Not on file documented as of this encounter Visit Diagnoses Not on filedocumented in this encounter Care Teams Manager Chemistry Relationship Specialty Start Date End Date Erwin Gardner MD [address] [place] [address] PCP - General 07/01/16 documented as of this encounter
--- OUTSIDE RECORDS SUMMARY | 2024-04-15 06:02 | XMS_ITS | Encounter Summary ---
Author Organization [facility] Address [address] [facility] [facility] [address] [place] [address] Care Team Providers Care Instructor Adjunct Surgical Technician Name Role Phone Erwin Gardner MD Primary Care Provide r Encounter Details Date Type Department Care Team (Latest Contact Info) Description 05/10/2017 Anticoagulation Visit [facility] [address] [address] Erwin Velasquez MD [address] [facility] 102 [place] [address] Chronic atrial fibrillation (CMS/HCC) Social History Tobacco Use Types Packs/Day Years Used Date Smoking Tobacco: Never Smokeless Tobacco: Never Alcohol Use Standard Drinks/Week Comments No 0 (1 standard drink = 0.6 oz pur e alcohol) Sex and Gender Information Value Date Recorded Sex Assigned at Not on file Legal Sex Male 11:57 AM DIRECTOR OF DIAGNOSTIC IMAGING Gender Identity Not on file Sexual Orientation Not on file documented as of this encounter Plan of Treatment Not on file documented as of this encounter Procedures Procedure Name Priority Date/Time Associated Diagnosis Comments PROTIME-INR Routine 05/09/2017 documented in this encounter Results * (ABNORMAL) Protime-INR (05/09/2017) INR 2.10(A) 0.9 - 1.1 [facility] Blood specimen (specimen) us Historical Provider LAB BLOOD ORDERABLES Judy sharpe Result [facility] documented in this encounter Visit Diagnoses Diagnosis Chronic atrial fibrillation (HCC) Atrial fibrillation documented in this encounter Care Teams Instructor Adjunct Surgical Technician Relationship Specialty Start Date End Date Erwin Gardner MD [address] [place] [address] PCP - General 07/01/16 documented as of this encounter
--- OUTSIDE RECORDS SUMMARY | 2024-04-15 06:02 | XMS_ITS | Encounter Summary ---
Author Organization [facility] Address [address] [facility] [address] [place] [address] Care Team Providers Care Electro Mechanic Name Role Phone Erwin Gardner MD Primary Care Provide r Encounter Details Date Type Department Care Team (Latest Contact Info) Description 02/14/2018 Anticoagulation Visit [facility] [address] [address] Erwin Velasquez MD [address] [facility] 102 [place] [address] Chronic atrial fibrillation (CMS/HCC) Social History Tobacco Use Types Packs/Day Years Used Date Smoking Tobacco: Never Smokeless Tobacco: Never Alcohol Use Standard Drinks/Week Comments No 0 (1 standard drink = 0.6 oz pur e alcohol) Sex and Gender Information Value Date Recorded Sex Assigned at Not on file Legal Sex Male 11:57 AM EMERGENCY MEDICAL TECH Gender Identity Not on file Sexual Orientation Not on file documented as of this encounter Plan of Treatment Not on file documented as of this encounter Visit Diagnoses Diagnosis Chronic atrial fibrillation (HCC) Atrial fibrillation documented in this encounter Care Teams Electro Mechanic Relationship Specialty Start Date End Date Erwin Gardner MD [address] [place] [address] PCP - General 07/01/16 documented as of this encounter
--- OUTSIDE RECORDS SUMMARY | 2024-04-15 06:02 | XMS_ITS | Encounter Summary ---
Author Organization [facility] Address [address] [place] [address] Phone Care Team Providers Care Rubber Flap Cutter Name Role Phone Erwin Gardner MD Primary Care Provide r Encounter Details Date Type Department Care Team (Late st Contact Info) Description 10/19/2017 Telephone [facility] Oncology [address] [place] [address] Gwendolyn Gannon CMA Social History Tobacco Use Types Packs/Day Years Used Date Smoking Tobacco: Never Smokeless Tobacco: Never Alcohol Use Standard Drinks/Week Comments No 0 (1 standard drink = 0.6 oz pur e alcohol) Sex and Gender Information Value Date Recorded Sex Assigned at Not on file Legal Sex Male 11:57 AM PROCESSING OPERATOR Gender Identity Not on file Sexual Orientation Not on file documented as of this encounter Miscellaneous Notes * Telephone Encounter - Gwendolyn Gannon MA - 10/19/2017 3:27 PM CDT Pt has some questions concerning his diagnosis. Could you please give him a call. documented in this encounter Plan of Treatment Not on file documented as of this encounter Visit Diagnoses Not on filedocumented in this encounter Care Teams Rubber Flap Cutter Relationship Specialty Start Date End Date Erwin Gardner MD [address] [place] [address] PCP - General 07/01/16 documented as of this encounter
--- OUTSIDE RECORDS SUMMARY | 2024-04-15 06:02 | XMS_ITS | Encounter Summary ---
Author Organization [facility] Address [address] [facility] [address] [place] [address] Care Team Providers Care Manager Ems Name Role Phone Erwin Gardner MD Primary Care Provide r Encounter Details Date Type Department Care Team (Latest Contact Info) Description 11/09/2017 Anticoagulation Visit [facility] [address] [address] Erwin Velasquez MD [address] [facility] 102 [place] [address] Chronic atrial fibrillation (CMS/HCC) Social History Tobacco Use Types Packs/Day Years Used Date Smoking Tobacco: Never Smokeless Tobacco: Never Alcohol Use Standard Drinks/Week Comments No 0 (1 standard drink = 0.6 oz pur e alcohol) Sex and Gender Information Value Date Recorded Sex Assigned at Not on file Legal Sex Male 11:57 AM SAW FILER Gender Identity Not on file Sexual Orientation Not on file documented as of this encounter Plan of Treatment Not on file documented as of this encounter Visit Diagnoses Diagnosis Chronic atrial fibrillation (HCC) Atrial fibrillation documented in this encounter Care Teams Manager Ems Relationship Specialty Start Date End Date Erwin Gardner MD [address] [place] [address] PCP - General 07/01/16 documented as of this encounter
--- OUTSIDE RECORDS SUMMARY | 2024-04-15 06:02 | XMS_ITS | Encounter Summary ---
Author Organization [facility] Address [address] [facility] [address] [place] [address] Care Team Providers Care Marine Resource Economist Name Role Phone Erwin Gardner MD Primary Care Provide r Encounter Details Date Type Department Care Team (Latest Contact Info) Description 08/11/2017 Anticoagulation Visit [facility] [address] [address] Erwin Velasquez MD [address] [facility] 102 [place] [address] Chronic atrial fibrillation (CMS/HCC) Social History Tobacco Use Types Packs/Day Years Used Date Smoking Tobacco: Never Smokeless Tobacco: Never Alcohol Use Standard Drinks/Week Comments No 0 (1 standard drink = 0.6 oz pur e alcohol) Sex and Gender Information Value Date Recorded Sex Assigned at Not on file 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 Gender Identity Not on file Sexual Orientation Not on file documented as of this encounter Plan of Treatment Not on file documented as of this encounter Procedures Procedure Name Priority Date/Time Associated Diagnosis Comments PROTIME-INR Routine 08/10/2017 documented in this encounter Results * (ABNORMAL) Protime-INR (08/10/2017) INR 3.40(A) 0.9 - 1.1 [facility] Blood specimen (specimen) us Historical Provider LAB BLOOD ORDERABLES Judy sharpe Result [facility] documented in this encounter Visit Diagnoses Diagnosis Chronic atrial fibrillation (HCC) Atrial fibrillation documented in this encounter Care Teams Marine Resource Economist Relationship Specialty Start Date End Date Erwin Gardner MD [address] [place] [address] PCP - General 07/01/16 documented as of this encounter
--- OUTSIDE RECORDS SUMMARY | 2024-04-15 06:02 | XMS_ITS | Encounter Summary ---
Author Organization [facility] Address [address] [facility] [address] [place] [address] Care Team Providers Care Pattern Data Operator Name Role Phone Erwin Gardner MD Primary Care Provide r Encounter Details Date Type Department Care Team (Latest Contact Info) Description 04/11/2018 Anticoagulation Visit [facility] [address] [address] Erwin Velasquez MD [address] [facility] 102 [place] [address] Chronic atrial fibrillation (CMS/HCC) Social History Tobacco Use Types Packs/Day Years Used Date Smoking Tobacco: Never Smokeless Tobacco: Never Alcohol Use Standard Drinks/Week Comments No 0 (1 standard drink = 0.6 oz pur e alcohol) Sex and Gender Information Value Date Recorded Sex Assigned at Not on file 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
--- OUTSIDE RECORDS SUMMARY | 2024-04-15 06:02 | XMS_ITS | Encounter Summary ---
Author Organization [facility] Address [address] [place] [address] Phone Care Team Providers Care Compressor House Operator Name Role Phone Erwin Gardner MD Primary Care Provide r Encounter Details Date Type Department Care Team (Late st Contact Info) Description 04/09/2018 Telephone [facility] Oncology [address] [facility] [place] [address] Laura Evans, RN Social History Tobacco Use Types Packs/Day Years Used Date Smoking Tobacco: Never Smokeless Tobacco: Never Alcohol Use Standard Drinks/Week Comments No 0 (1 standard drink = 0.6 oz pur e alcohol) Sex and Gender Information Value Date Recorded Sex Assigned at Not on file 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 VIORAL HEALTH WORKER documented in this encounter Plan of Treatment Not on file documented as of this encounter Visit Diagnoses Not on filedocumented in this encounter Care Teams Compressor House Operator Relationship Specialty Start Date End Date Mandis, Erwin Ferdinand, MD [address] [place] [address] PCP - General 07/01/16 documented as of this encounter
--- OUTSIDE RECORDS SUMMARY | 2024-04-15 06:02 | XMS_ITS | Encounter Summary ---
Author Organization [facility] Address [address] [place] [address] Phone Care Team Providers Care Web Development Consultant Name Role Phone Erwin Gardner MD Primary Care Provide r Encounter Details Date Type Department Care Team (Late st Contact Info) Description 10/20/2017 Telephone [facility] Oncology [address] [facility] [place] [address] Laura Evans RN Social History Tobacco Use Types Packs/Day Years Used Date Smoking Tobacco: Never Smokeless Tobacco: Never Alcohol Use Standard Drinks/Week Comments No 0 (1 standard drink = 0.6 oz pur e alcohol) Sex and Gender Information Value Date Recorded Sex Assigned at Not on file 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 documented in this encounter Plan of Treatment Not on file documented as of this encounter Visit Diagnoses Not on filedocumented in this encounter Care Teams Web Development Consultant Relationship Specialty Start Date End Date Erwin Gardner MD [address] [place] [address] PCP - General 07/01/16 documented as of this encounter
--- OUTSIDE RECORDS SUMMARY | 2024-04-15 06:02 | XMS_ITS | Encounter Summary ---
Author Organization [facility] Address [address] [facility] [address] [place] [address] Care Team Providers Care Hi Lift Operator Name Role Phone Erwin Gardner MD Primary Care Provide r Encounter Details Date Type Department Care Team (Late st Contact Info) Description 02/14/2018 Telephone [facility] [address] [address] Erwin Velasquez MD [address] [address] Social History Tobacco Use Types Packs/Day Years Used Date Smoking Tobacco: Never Smokeless Tobacco: Never Alcohol Use Standard Drinks/Week Comments No 0 (1 standard drink = 0.6 oz pur e alcohol) Sex and Gender Information Value Date Recorded Sex Assigned at Not on file 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 AL CROP DUSTER * Telephone Encounter - Celina Millan - 02/14/2018 8:13 AM AERIAL CROP DUSTER Pt returned call regarding his 3.0 INR result, pt call back number [phone] AL CROP DUSTER documented in this encounter Plan of Treatment Not on file documented as of this encounter Visit Diagnoses Not on filedocumented in this encounter Care Teams Hi Lift Operator Relationship Specialty Start Date End Date Erwin Gardner MD [address] [place], [place] [address] PCP - General 07/01/16 documented as of this encounter
--- OUTSIDE RECORDS SUMMARY | 2024-04-15 06:02 | XMS_ITS | Encounter Summary ---
Author Organization [facility] Address [address] [facility] [address] [place] [address] Care Team Providers Care Document Management Technician Name Role Phone Erwin Gardner MD Primary Care Provide r Encounter Details Date Type Department Care Team (Latest Contact Info) Description 01/08/2018 Anticoagulation Visit [facility] [address] [address] Erwin Velasquez MD [address] [facility] 102 [place] [address] Chronic atrial fibrillation (CMS/HCC) Social History Tobacco Use Types Packs/Day Years Used Date Smoking Tobacco: Never Smokeless Tobacco: Never Alcohol Use Standard Drinks/Week Comments No 0 (1 standard drink = 0.6 oz pur e alcohol) Sex and Gender Information Value Date Recorded Sex Assigned at Not on file 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
--- OUTSIDE RECORDS SUMMARY | 2024-04-15 06:02 | XMS_ITS | Encounter Summary ---
Author Organization [facility] Address [address] [facility] [facility] [address] [place] [address] Care Team Providers Care Talent Acquisition Relationship Manager Name Role Phone Erwin Gardner MD Primary Care Provide r Encounter Details Date Type Department Care Team (Late st Contact Info) Description 04/12/2018 Telephone [facility] [address] [address] Erwin Velasquez MD [address] [address] Social History Tobacco Use Types Packs/Day Years Used Date Smoking Tobacco: Never Smokeless Tobacco: Never Alcohol Use Standard Drinks/Week Comments No 0 (1 standard drink = 0.6 oz pur e alcohol) Sex and Gender Information Value Date Recorded Sex Assigned at Not on file 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 90 tablet 3 04/12/2018 04/23/2019 documented in this encounter Miscellaneous Notes * Telephone Encounter - Shakira Bourne MA - 04/12/2018 11:55 AM CST Medication sent to pharmacy. ER MANAGER * Telephone Encounter - Celina Millan - 04/12/2018 10:18 AM PLAYER MANAGER [facility] called requesting refills for fenofibrate 160 mg, ER MANAGER documented in this encounter Plan of Treatment Not on file documented as of this encounter Visit Diagnoses Not on filedocumented in this encounter Discontinued Medications Medication Sig Discontinue Reason Start Date End Da te fenofibrate (TRIGLIDE) 160 mg tablet Take 1 tablet (160 mg total) by mouth daily. Reorder 10/10/2017 04/12/2018 documented as of this encounter Care Teams Talent Acquisition Relationship Manager Relationship Specialty Start Date End Date Erwin Gardner MD [address] [place] [address] PCP - General 07/01/16 documented as of this encounter
--- OUTSIDE RECORDS SUMMARY | 2024-04-15 06:02 | XMS_ITS | Encounter Summary ---
Author Organization [facility] Address [address] [facility] [address] [place] [address] Care Team Providers Care Bronze Chaser Name Role Phone Erwin Gardner MD Primary Care Provide r Encounter Details Date Type Department Care Team (Late st Contact Info) Description 08/30/2017 Telephone [facility] [address] [facility] [address] [place] [address] Erwin Velasquez MD [address] [facility] [address] [place] [address] Social History Tobacco Use Types Packs/Day Years Used Date Smoking Tobacco: Never Smokeless Tobacco: Never Alcohol Use Standard Drinks/Week Comments No 0 (1 standard drink = 0.6 oz pur e alcohol) Sex and Gender Information Value Date Recorded Sex Assigned at Not on file 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 Called patient to see if there has been a change in medical condition warranting the need for this. States that due to the atrial fibrillation he becomes very short of breath with minimal activity. Explained that Dr. Velasquez is out of the office and will discuss this with him once he returns. Verbalized understanding. documented in this encounter Plan of Treatment Not on file documented as of this encounter Visit Diagnoses Not on filedocumented in this encounter Care Teams Bronze Chaser Relationship Specialty Start Date End Date Erwin Gardnre MD [address] [place] [address] PCP - General 07/01/16 documented as of this encounter
--- OUTSIDE RECORDS SUMMARY | 2024-04-15 06:02 | XMS_ITS | Encounter Summary ---
Author Organization [facility] Address [address] [facility] [address] [place] [address] Care Team Providers Care Disability Hearing Officer Name Role Phone Erwin Gardner MD Primary Care Provide r Encounter Details Date Type Department Care Team (Late st Contact Info) Description 06/23/2017 Telephone [facility] [address] [facility] 162 [facility] 102 [place] [address] Erwin Velasquez MD [address] [facility] 102 [place] [address] Social History Tobacco Use Types Packs/Day Years Used Date Smoking Tobacco: Never Smokeless Tobacco: Never Alcohol Use Standard Drinks/Week Comments No 0 (1 standard drink = 0.6 oz pur e alcohol) Sex and Gender Information Value Date Recorded Sex Assigned at Not on file 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 Velasquez, this is okay. Patient made aware and is thankful for the return call. * Telephone Encounter - Amber Garrison - 06/23/2017 11:40 AM CDT Patient called office was seen by kidney specialist recently and BP was 80/57 He was told by kidney dr to cut carvedilol in half Past 2 days he has been taking 1/2 am and 1/2 pm He was wanting to check with Dr Velasquez if this is ok He states he has been feeling fine documented in this encounter Plan of Treatment Not on file documented as of this encounter Visit Diagnoses Not on filedocumented in this encounter Care Teams Disability Hearing Officer Relationship Specialty Start Date End Date Erwin Gardner MD [address] [place] [address] PCP - General 07/01/16 documented as of this encounter
--- OUTSIDE RECORDS SUMMARY | 2024-04-15 06:02 | XMS_ITS | Encounter Summary ---
Author Organization [facility] Address [address] [facility] [address] [place] [address] Care Team Providers Care Explosive Specialist Name Role Phone Erwin Gardner MD Primary Care Provide r Reason for Visit * Reason Comments Cardiomyopathy Atrial Fibrillation 6 mo f/u * Cardiology (Routine) - Closed Specialty Diagnoses / Procedures Referred By Contac t Referred To Contact Cardiology Diagnoses Dilated cardiomyopathy Erwin Gardner MD Phone: tel: fax: [facility] [address] [place] [address] [address] Phone: tel: fax: Referral ID Status Reason Start Date Expiration Date Visits Re quested Visits Authorized [id number] Closed 01/17/2017 04/19/2017 1 Encounter Details Date Type Department Care Team (Late st Contact Info) Description 01/17/2017 9:00 AM CDT Office Visit [facility] [address] [place] [phone] Erwin Velasquez MD [address] [place] [address] [address] [place] [address] Chronic atrial fibrillation (CMS/HCC) (Primary Dx) Social History Tobacco Use Types Packs/Day Years Used Date Smoking Tobacco: Never Smokeless Tobacco: Never Alcohol Use Standard Drinks/Week Comments No 0 (1 standard drink = 0.6 oz pur e alcohol) Sex and Gender Information Value Date Recorded Sex Assigned at Not on file 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 Gender Identity Not on file Sexual Orientation Not on file documented as of this encounter Last Filed Vital Signs Vital Sign Reading Time Taken Comments Blood Pressure 98/62 01/17/2017 9:06 AM CDT Pulse 77 01/17/2017 9:06 AM CDT Temperature - - Respiratory Rate - - Oxygen Saturation 96% 01/17/2017 9:06 AM CDT Inhaled Oxygen Concentration - - Weight 140.2 kg (309 lb) 01/17/2017 9:06 AM CDT Height 188 cm (6' 2 ) 01/17/2017 9:06 AM CDT Body Mass Index 39.67 01/17/2017 9:06 AM CDT documented in this encounter Progress Notes * Erwin Velasquez MD - 01/17/2017 9:00 AM CDT [facility]IN[facility] FOLLOW UP 01/17/2017 Erwin Isaac is a 66 y.o. male who presents for follow up [...] controlled. He returns to the office today feeling well. He still is significantly obese and we spoke at some length about weight loss strategies. He is rate controlled anticoagulated and not otherwise symptomatic of his atrial fib. REVIEW OF SYSTEMS General ROS: negative for [...] 3 ??? fenofibrate (TRIGLIDE) 160 mg tablet, take 1 tablet by oral route every day, Disp: 90, Rfl: 3 ? ? furosemide (LASIX) 80 mg tablet, take 1 & 1/2 tablet by oral route every day, Disp: 135, Rfl: 3 ??? insulin NPH (HumuLIN N, NovoLIN N) 100 unit/mL injection, Inject under the skin., Disp: , Rfl: ??? insulin regular (HumuLIN R, NovoLIN R) 100 unit/mL injection, Inject under the skin 3 (three) times a day before meals., Disp: , Rfl: ??? losartan (COZAAR) 50 mg tablet, take 1 tablet by oral route every day, Disp: 90, Rfl: 3 ??? metFORMIN (GLUCOPHAGE) 500 mg tablet, Take 1,000 mg by mouth 2 (two) times a day with meals., Disp: , Rfl: ??? potassium chloride ER (KLOR-CON,K-DUR) 20 mEq CR tablet, take 1 Tablet by oral route every day with food, Disp: 90, Rfl: 3 ??? spironolactone (ALDACTONE) 50 mg tablet, take 1 tablet by oral route every day, Disp: 90, Rfl: 3 LABS AND OTHER DIAGNOSTIC TESTS No results found for: CHOL No results found for: HDL No results found for: LDLCALC No results found for: TRIG No results found for: CHOLHDL No results found for: WBC, HGB, HCT, MCV, PLT No lab exists for component: LABALBU PHYSICAL EXAM Vitals: 01/17/17 0906 BP: 98/62 Pulse: 77 SpO2: 96% Physical Examination: General appearance -significantly obese white [...] noted ASSESSMENT Erwin was seen today for cardiomyopathy and atrial fibrillation. Diagnoses and all orders for this visit: Chronic atrial fibrillation (CMS/HCC) PLAN/RECOMMENDATIONS Continue current rate control and anticoagulation strategy Follow-up at 6 month intervals Erwin Velasquez MD documented in this encounter Plan of Treatment Not on file documented as of this encounter Visit Diagnoses Diagnosis Chronic atrial fibrillation (HCC)- Primary Atrial fibrillation documented in this encounter Discontinued Medications Medication Sig Discontinue Reason Start Date End Da te carvedilol (COREG) 25 mg tablet take 1 by Oral route 2 times every day Duplicate order 11/15/2012 01/17/2017 documented as of this encounter Historical Medications * This list may reflect changes made after this encounter. insulin regular (HumuLIN R, NovoLIN R) 100 unit/mL injectionIndicati ons:type 2 diabetes mellitus Inject under the skin 3 (three) times a day before meals Sliding scale insulin NPH (HumuLIN N, NovoLIN N) 100 unit/mL injection Inject under the skin. 10/18/2018 metFORMIN (GLUCOPHAGE) 500 mg tablet Take 1,000 mg by mouth 2 (two) times a day with meals. 04/05/2018 added in this encounter Care Teams Explosive Specialist Relationship Specialty Start Date End Date Erwin Gardner MD [address] [place] [address] PCP - General 07/01/16 documented as of this encounter
--- OUTSIDE RECORDS SUMMARY | 2024-04-15 06:02 | XMS_ITS | Encounter Summary ---
Author Organization [facility] Address [address] [facility] [address] [place] [address] Care Team Providers Care Stone Gang Sawyer Name Role Phone Erwin Gardner MD Primary Care Provide r Encounter Details Date Type Department Care Team (Latest Contact Info) Description 08/25/2017 Anticoagulation Visit [facility] [address] [facility] [address] [place] [address] Erwin Velasquez MD [address] [place] [address] Chronic atrial fibrillation (CMS/HCC) Social History Tobacco Use Types Packs/Day Years Used Date Smoking Tobacco: Never Smokeless Tobacco: Never Alcohol Use Standard Drinks/Week Comments No 0 (1 standard drink = 0.6 oz pur e alcohol) Sex and Gender Information Value Date Recorded Sex Assigned at Not on file 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 Gender Identity Not on file Sexual Orientation Not on file documented as of this encounter Plan of Treatment Not on file documented as of this encounter Procedures Procedure Name Priority Date/Time Associated Diagnosis Comments PROTIME-INR Routine 08/24/2017 documented in this encounter Results * (ABNORMAL) Protime-INR (08/24/2017) INR 2.40(A) 0.9 - 1.1 [facility] Blood specimen (specimen) us Historical Provider LAB BLOOD ORDERABLES Judy sharpe Result [facility] documented in this encounter Visit Diagnoses Diagnosis Chronic atrial fibrillation (HCC) Atrial fibrillation documented in this encounter Care Teams Stone Gang Sawyer Relationship Specialty Start Date End Date Erwin Gardner MD [address] [place], [place] [address] PCP - General 07/01/16 documented as of this encounter
--- OUTSIDE RECORDS SUMMARY | 2024-04-15 06:18 | XMS_ITS | Encounter Summary ---
Author Organization [facility] Address [address] [place] [address] Phone Care Team Providers Care Boat Hoist Operator Helper Name Role Phone Erwin Gardner MD Primary Care Provider [phone] Encounter Details Date Type Department Care Team (Late st Contact Info) Description 01/24/2024 Orders Only [facility] [address] [facility] 1 [place] [address] Kev Dey MD [address] [address] Social History Tobacco Use Types Packs/Day Years Used Date Smoking Tobacco: Never Smokeless Tobacco: Never Alcohol Use Standard Drinks/Week Comments No 0 (1 standard drink = 0.6 oz pur e alcohol) Sex and Gender Information Value Date Recorded Sex Assigned at Not on file Gender Identity Not on file Sexual Orientation Not on file documented as of this encounter Plan of Treatment Upcoming Encounters Date Type Department Care Team (Late st Contact Info) Description 06/04/2024 1:40 PM CHILD AND FAMILY SERVICES WORKER Office Visit [facility] [address] [facility] [address] [place] [address] Massiel Meehan NP [address] [facility] 1 [place] [address] documented as of this encounter Procedures Procedure Name Priority Date/Time Associated Diagnosis Comments CBC (INCLUDES DIFFERENTIAL/PLATEL ETS) Routine 01/24/2024 8:40 AM CDT RENAL FUNCTION PANEL (RFP) Routine 01/24/2024 8:40 AM CDT PTH INTACT AND CALCIUM, SERUM Routine 01/24/2024 8:40 AM CDT documented in this encounter Results * (ABNORMAL) Renal Function Panel (RFP) (01/24/2024 8:40 AM CDT) Pathologist [facility] Glucose, Serum/Plasma 143(H) 65 - 99 mg/dL [facility] ([facility]) Comment: ? Fasting reference interval For someone without known diabetes, a glucose value >125 mg/dL indicates that they may have diabetes and this should be confirmed with a follow-up test. Urea nitrogen, Serum/Plasma (BUN) 29(H) 7 - 25 mg/dL [facility] ([facility]) Creatinine, Serum/Plasma 1.91(H) 0.70 - 1.28 mg/dL [facility] ([facility]) Estimated Glomerular Filtration Rate (eGFR) 37(L) > OR = 60 mL/min/1.7 3m2 [facility] ([facility]) Urea nitrogen/Creati nine, Serum/Plasma 15 6 - 22 (calc) [facility]) Sodium, Serum/Plasma 137 135 - 146 mmol/L [facility] [place] [facility]) Potassium, Serum/Plasma 4.1 3.5 - 5.3 mmol/L [facility] ([facility]) Chloride, Serum/Plasma 100 98 - 110 mmol/L [facility] ([facility]) Carbon dioxide CO2), total, Serum/Plasma 28 20 - 32 mmol/L [facility] ([facility]) Calcium, Serum/Plasma 9.4 8.6 - 10.3 mg/dL [facility] [place]) Phosphate, Serum/Plasma 2.8 2.1 - 4.3 mg/dL [facility] ([facility]) Albumin, Serum/Plasma 3.9 3.6 - 5.1 g/dL [facility] ([facility]) 01/24/2024 8:40 AM CDT 01/24/2024 8:41 AM CDT Narrative [facility] ([facility]) - 01/25/2024 6:27 AM CDT FASTING:YES PATIENT UNABLE TO VOID; ADVISED TO RETURN FOR COLLECTION. FASTING: YES Resulting Agency Comment Performing Organization Information: ?Site ID: [id number] ?Name: [facility] ?Address: [facility] [place] [phone] ?Director: Beatriz Dodge MD Kev Dey MD LAB BLOOD ORDERABLES [facility] ([facility]) * PTH Intact and Calcium, Serum (01/24/2024 8:40 AM CDT) PTH, Intact, Serum/Plasma 26 16 - 77 pg/mL [facility] ([facility]) Comment: Interpretive Guide ?Intact PTH ? Calcium ? ------- Normal Parathyroid ?Normal ? Normal Hypoparathyroidism ?Low or Low Normal ?Low Hyperparathyroidism ?? Primary ?Normal or High ? High ?? Secondary ?High ? Normal or Low ?? Tertiary ? High ? High Non-Parathyroid ?? Hypercalcemia ?Low or Low Normal ?High Calcium, Serum/Plasma 9.4 8.6 - 10.3 mg/dL [facility]) 01/24/2024 8:40 AM CDT 01/24/2024 8:41 AM CDT Narrative [facility] ([facility]) - 01/25/2024 6:27 AM CDT FASTING:YES PATIENT UNABLE TO VOID; ADVISED TO RETURN FOR COLLECTION. FASTING: YES Resulting Agency Comment Performing Organization Information: ?Site ID: [id number] ?Name: [facility] ?Address: [facility] [place] [phone] ?Director: Beatriz Dodge MD Kev Dey MD LAB BLOOD ORDERABLES [facility] * (ABNORMAL) CBC (includes Differential/Platelets) (01/24/2024 8:40 AM CDT) Leukocytes, Blood 7.5 3.8 - 10.8 Thousand/u L [facility] ([facility]) Erythrocytes (RBC) 3.45(L) 4.20 - 5.80 Million/uL [facility]) Hemoglobin (HGB) 11.1(L) 13.2 - 17.1 g/dL [facility]) Hematocrit (HCT) 33.9(L) 38.5 - 50.0 % [facility]) MCV 98.3 80.0 - 100.0 fL [facility]) MCH 32.2 27.0 - 33.0 pg [facility]) MCHC 32.7 32.0 - 36.0 g/dL [facility]) Comment: For adults, a slight decrease in the calculated MCHC value (in the range of 30 to 32 g/dL) is most likely not clinically significant; however, it should be interpreted with caution in correlation with other red cell parameters and the patient's clinical condition. Erythrocyte Distribution Width (RDW) 12.4 11.0 - 15.0 % [facility]) Platelets, Blood 238 140 - 400 Thousand/u L [facility]) Platelet mean volume, Blood 11.5 7.5 - 12.5 fL [facility]) Neutrophils, Blood 4,973 1,500 - 7,800 cells/uL [facility]) Lymphocytes, Blood 1,613 850 - 3,900 cells/uL [facility]) Monocytes, Blood 713 200 - 950 cells/uL [facility]) Eosinophils, Blood 143 15 - 500 cells/uL [facility]) Basophils, Blood 60 0 - 200 cells/uL [facility]) Neutrophils/100 leukocytes, Blood 66.3 % [facility]) Lymphocytes/100 leukocytes, Blood 21.5 % [facility]) Monocytes/100 leukocytes, Blood 9.5 % [facility] Eosinophils/100 leukocytes, Blood 1.9 % [facility] Basophils/100 leukocytes, Blood 0.8 % [facility] 01/24/2024 8:40 AM CDT 01/24/2024 8:41 AM CDT Narrative [facility] ([facility]) - 01/25/2024 6:27 AM CDT FASTING:YES PATIENT UNABLE TO VOID; ADVISED TO RETURN FOR COLLECTION. FASTING: YES Resulting Agency Comment Performing Organization Information: ?Site ID: [id number] ?Name: [facility] ?Address: [address] [place] [phone] ?Director: Beatriz Dodge MD Kev Dey MD LAB BLOOD ORDERABLES [facility] documented in this encounter Visit Diagnoses Not on filedocumented in this encounter Care Teams Boat Hoist Operator Helper Relationship Specialty Start Date End Date Erwin Gardner MD [address] [place] [phone] PCP - General Internal Medicine 10/03/19 documented as of this encounter
--- OUTSIDE RECORDS SUMMARY | 2024-04-15 06:18 | XMS_ITS | Encounter Summary ---
Author Organization [facility] Address [address] [place] [address] Phone Care Team Providers Care Typesetters Printer Name Role Phone Erwin Chirinos MD Primary Care Provider [phone] Reason for Visit * Reason Comments CKD Encounter Details Date Type Department Care Team ([facility] st Contact Info) Description 01/27/2021 4:40 PM CDT Telemedicine [facility] [address] [facility] 1 [place] [address] Tony Dey MD [address] [address] Monoclonal gammopathy (Primary Dx); Stage 3b chronic kidney disease (CMS-HCC); Essential (primary) hypertension; Type 2 diabetes mellitus with complication, not otherwise specified (CMS-HCC) Social History Tobacco Use Types Packs/Day Years [...] Pressure - - Pulse - - Temperature - - Respiratory Rate - - Oxygen Saturation - - Inhaled Oxygen Concentration - - Weight 142 kg (312 lb) 01/27/2021 4:40 PM CDT Height 190.5 cm (6' 3 ) 01/26/2021 12:40 PM CDT Body Mass Index 39 01/26/2021 12:40 PM CDT documented in this encounter Progress Notes * Tony Dey MD - 01/27/2021 4:40 PM CDT Patient: Erwin Isaac Birthdate: 1950 PCP: ERWIN CHIRINOS MD Reason for visit: Visit Date: 01/27/2021 CHIEF COMPLAINT CKD INTERIM HISTORY Erwin Isaac is a 70 y.o. male presenting with a past medical history of chronic kidney disease, gammopathy, diabetes and hypertension. Not knowing whether this is monoclonal gammopathy of renal significance and renal biopsy has been planned. A visit is needed within 30 days of the planned biopsy on February 03 at [facility] in [place]. Generally feels okay. Has some dyspnea on exertion. No swelling. No urinary complaints. He is on warfarin therapy and after discussion with cardiology Dr. Teresa, warfarin will be discontinued for 9 days preprocedure and follow-up 2 weeks post procedure. Warfarin is currently on hold. PAST MEDICAL HISTORY Past Medical History: Diagnosis Date ??? Asthma ??? Chronic kidney disease (CKD) ??? Congestive heart failure (CMS-HCC) ??? Essential (primary) hypertension ??? Heart failure ??? History of colonoscopy ??? Hyperlipidemia ??? Polyneuropathy ??? Type 2 diabetes mellitus without complication PAST SURGICAL HISTORY Past Surgical History: Procedure Laterality Date ??? COLONOSCOPY SOCIAL HISTORY Social History Tobacco Use ??? Smoking status: Never Smoker ??? Smokeless tobacco: Never Used Substance Use Topics ??? Alcohol use: No ??? Drug use: No FAMILY HISTORY Family History Problem Relation Age of Onset ??? Hypertensive disorder Mother ??? Diabetes mellitus Neg Hx ??? Kidney disease Neg Hx MEDICATIONS Current Outpatient Medications Medication Sig Dispense Refill ??? atorvastatin (LIPITOR) 20 MG tablet one tab at bedtime 0 ??? carvedilol (COREG) 6.25 MG tablet Take 6.25 mg by mouth 2 (two) times a day with meals ??? digoxin (LANOXIN) 125 MCG tablet one tab daily 0 ??? fenofibrate (TRIGLIDE) 160 MG tablet one tab daily 0 ??? furosemide (LASIX) 80 MG tablet one tab daily 0 ??? insulin NPH, Isophane, (HumuLIN) 100 UNIT/ML injection Inject 60 Units under the skin 2 (two) times a day before meals ??? insulin regular (HumuLIN) 100 UNIT/ML injection Inject under the skin 3 (three) times a day before meals ??? losartan (COZAAR) 50 MG tablet one tab daily 0 ??? potassium chloride (K-TAB) 20 MEQ CR tablet one tab daily 0 ??? spironolactone (ALDACTONE) 50 MG tablet one tab daily 0 ??? warfarin (Jantoven) 5 MG tablet Take 5 mg by mouth 1 (one) time each day No current facility-administered medications for this visit. ALLERGIES No Known Allergies REVIEW OF SYSTEMS Review of Systems VITALS Ht 6' 3 (1.905 m) Wt (!) 312 lb (142 kg) BMI 39.00 kg/m?? BSA 2.74 m?? PHYSICAL EXAM Physical Exam RECENT LABS Lab Results Component Value Date EGFR 38 (L) 12/17/2020 CREATININE 1.79 (H) 12/17/2020 CREATININEUR 43 12/17/2020 CREATININEUR 43 12/17/2020 GLUCOSE 219 (H) 12/17/2020 PTH 85 (H) 12/17/2020 HCT 32.7 (L) 12/17/2020 BUN 29 (H) 12/17/2020 NA 138 12/17/2020 K 4.4 12/17/2020 CL 102 12/17/2020 CO2 28 12/17/2020 ALBUMIN 3.9 12/17/2020 ALBUMIN 4.0 12/17/2020 CA 8.8 12/17/2020 CA 8.8 12/17/2020 IMAGES DPS CONVERSION - CONSULTATION REPORT NOTE PROCEDURE Ordered by an unspecified provider. DPS CONVERSION - CONSULTATION REPORT NOTE PROCEDURE Ordered by an unspecified provider. ASSESSMENT AND PLAN Assessment/Plan Diagnoses and all orders for this visit: Monoclonal gammopathy Stage 3b chronic kidney disease ([facility]-HCC) Essential (primary) hypertension Type 2 diabetes mellitus with complication, not otherwise specified ([facility]-HCC) I answered patient's questions. The reason for the biopsy is to find out if this is monoclonal gammopathy of renal significance. He may or may not need treatment depending on the findings. He has other renal risk factors as well including diabetes and hypertension. Alternative would be not to do a biopsy and just watch. Hopefully this delineates the pathophysiology for this patient and help to guide therapy and prognosis going forward. Follow-up couple of weeks after biopsy. Please call me with any questions TONY DEY MD documented in this encounter Plan of Treatment Upcoming Encounters Date Type Department Care Team (Late st Contact Info) Description 06/04/2024 1:40 PM UNDERWEAR FINISHER Office Visit [facility] [address], [address] [place], [place] [id number] Massiel Meehan, METAL TURNER [address] [facility] 1 [place] [address] documented as of this encounter Visit Diagnoses Diagnosis Monoclonal gammopathy- Primary Stage 3b chronic kidney disease (CMS-HCC) Essential (primary) hypertension Type 2 diabetes mellitus with complication, not otherwise specified (CMS-HCC) documented in this encounter Care Teams Typesetters Printer Relationship Specialty Start Date End Date Erwin Chirinos MD [address] [facility] 2 [place] [address] PCP - General Internal Medicine 10/03/19 documented as of this encounter
--- OUTSIDE RECORDS SUMMARY | 2024-04-15 06:18 | XMS_ITS | Encounter Summary ---
Author Organization [facility] Address [address] [place] [address] Phone Care Team Providers Care Rail Express Clerk Name Role Phone Erwin Gardner MD Primary Care Provider [phone] Encounter Details Date Type Department Care Team (Late Contact Info) Description 12/23/2020 Telephone [facility] [address] [facility] 1 [place] [address] Kev Dey MD [address] [address] Social History Tobacco Use Types [...] encounter Miscellaneous Notes * Telephone Encounter - Kev Dey MD - 12/23/2020 3:58 PM CDT 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 With the worsening renal function I would recommend that he get a renal biopsy with the view that he may well require treatment for gammopathy of renal significance. I called the patient and discussed with him. Risk of bleeding discussed with the patient. Reason for the biopsy discussed with the patient is agreeable to proceeding. He is noted to be on warfarin therapy and this will need to be discontinued for 1 week prior and 1 to 2 weeks post biopsy depending on complications. He is taking this for warfarin therapy. I will reach out to his labeling strategist Dr. Krueger to discuss documented in this encounter Plan of Treatment Upcoming Encounters Date Type Department Care Team (Late st Contact Info) Description 06/04/2024 1:40 PM LEAD CONSULTANT Office Visit [facility] [address], [address] [place] [address] Massiel Meehan, MEDICAL MANAGEMENT TRAINER [address] [facility] 1 [place] [address] documented as of this encounter Visit Diagnoses Not on filedocumented in this encounter Care Teams Rail Express Clerk Relationship Specialty Start Date End Date Erwin Gardner MD [address] [facility] 2 [place] [address] PCP - General Internal Medicine 10/03/19 documented as of this encounter
--- OUTSIDE RECORDS SUMMARY | 2024-04-15 06:18 | XMS_ITS | Clinical Summary ---
Author Organization [facility] Address [address] [place] [address] Phone Care Team Providers Care Jumpbasting Collar Baster Name Role Phone Erwin Gardner MD Primary Care Provider [phone] Allergies No known active allergies Medications Medication Sig Dispensed Refills Start Date End Date Status spironolactone (ALDACTONE) 50 MG tablet one tab daily 0 01/19/2016 Active losartan (COZAAR) 50 MG tablet one tab daily 0 01/19/2016 Active furosemide (LASIX) 80 MG tablet one tab daily 0 01/19/2016 Active fenofibrate (TRIGLIDE) 160 MG tablet one tab daily 0 01/19/2016 Active digoxin (LANOXIN) 125 MCG tablet one tab daily 0 01/19/2016 Active atorvastatin (LIPITOR) 20 MG tablet one tab at bedtime 0 01/19/2016 Acti ve potassium chloride (K-TAB) 20 MEQ CR tablet one tab daily 0 01/19/2016 Active warfarin (COUMADIN) 5 MG tablet Take 5 mg by mouth 1 (one) time each day Active carvedilol (COREG) 6.25 MG tablet Take 6.25 mg by mouth 2 (two) times a day with meals Active insulin NPH, Isophane, (HumuLIN) 100 UNIT/ML injection Inject 60 Units under the skin 2 (two) times a day before meals Active insulin regular (HumuLIN) 100 UNIT/ML injection Inject under the skin 3 (three) times a day before meals Active Semaglutide (OZEMPIC, 1 MG/DOSE, SC) Inject 1 mg under the skin per week Active Active Problems Patient Care Coordination No te Formatting of this note migh t be different from the original. Mr Isaac is in requirement of a renal biopsy for suspected monoclonal gammopathy or renal significance. He is on warfarin for atrial fibrillation managed by Dr Krueger at [facility]. We would like to hold the warfarin before and after the renal biopsy. Depending on bleeding complications we generally hold the warfarin for two weeks to reduce risk of bleeding. Reaching out to Dr Krueger for any recommendations from a cardiology standpoint Problem Noted Date Diagnosed Date Anemia in chronic kidney disease 02/06/2024 Secondary hyperparathyroidism of renal origin Monoclonal gammopathy 06/20/2017 Stage 3b chronic kidney disease 01/19/2016 Diabetes mellitus with renal manifestations, type II or unspecified type, uncontrolled 01/19/2016 Essential (primary) hypertension 01/19/2016 Resolved Problems Problem Noted Date Diagnosed Date Resolved Date Asthma 01/14/2019 09/30/2019 Congestive heart failure 01/14/2019 Hyperlipidemia 01/14/2019 09/30/2019 Polyneuropathy 01/14/2019 09/30/2019 Diabetes mellitus 07/18/2018 09/30/2019 Cardiorenal syndrome 07/16/2018 020 Hypertensive heart and chron ic 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 heart failure, with stage 1 through stage 4 chronic kidney disease, or unspecified chronic kidney disease 06/20/201709/29 Encounters Date Type Department Care Team Description 01/24/2024 Orders Only [facility] [address] [place] [address] Kev Dey MD 01/24/2024 Orders Only [facility] [address] [place] [address] Kev Dey MD from Last 3 Months Immunizations Name Administration Dates Next Due Influenza Split High Dose Pr eservative Free IM 01/10/2018,01/25/2017 Influenza TIV (IM) 01/20/2016(Deferred: Patient Refused) Family History Medical History Relation Comments Hypertensive disorder Mother Diabetes mellitus Neg Hx Kidney disease Neg Hx Relation Status Comments Mother Social History Tobacco Use Types Packs/Day Years [...] Sign Reading Time Taken Comments Blood Pressure 104/54 02/06/2024 12:20 PM NURSE CASE MANAGER Pulse 64 02/06/2024 12:20 PM NURSE CASE MANAGER Temperature - - Respiratory Rate - - Oxygen Saturation - - Inhaled Oxygen Concentration - - Weight 132 kg (292 lb) 02/06/2024 12:20 PM NURSE CASE MANAGER Height 190.5 cm (6' 3 ) 02/06/2024 12:20 PM NURSE CASE MANAGER Body Mass Index 36.5 02/06/2024 12:20 PM NURSE CASE MANAGER Plan of Treatment Upcoming Encounters Date Type Department Care Team (Late st Contact Info) Description 06/04/2024 1:40 PM NURSE CASE MANAGER Office Visit [facility] [address], [address] [place] [address] Massiel Meehan, ADRIANO [address] [facility] [address] [place] [address] Health Maintenance Due Date Last Done Comments Pneumococcal PPSV23/PCV13 65 + Years / High and Highest Risk (1 of 4 - PCV) 02/29/1956 Diabetic Foot Exam 02/29/1960 Ophthalmology Exam 02/29/1960 Influenza Vaccine (#1) 2023 Procedures Procedure Name Priority Date/Time Associated Diagnosis Comments MICROALBUMIN, RANDOM URINE WITH CREATININE Routine 01/24/2024 9:52 AM CDT URINALYSIS, COMPLETE Routine 01/24/2024 9:52 AM CDT RENAL FUNCTION PANEL (RFP) Routine 01/24/2024 8:40 AM CDT PTH INTACT AND CALCIUM, SERUM Routine 01/24/2024 8:40 AM CDT CBC (INCLUDES DIFFERENTIAL/PLATELE TS) Routine 01/24/2024 8:40 AM CDT from Last 3 Months Results * Albumin, Random Urine with Creatinine (01/24/2024 9:52 AM CDT) Creatinine, Urine 106 20 - 320 mg/dL [facility] ([facility]) Microalbumin, Urine 0.5 See Note: mg/dL [facility] ([facility]) Comment: Reference Range: Reference Range Not established Albumin/Creatinine , Urine 5 <30 mg/g creat [facility] ([facility]) Comment: The ADA defines abnormalities in albumin excretion as follows: Albuminuria Category ?Result (mg/g creatinine) Normal to Mildly increased ?? <30 Moderately increased ? 30-299 Severely increased ? > OR = 300 The ADA recommends that at least two of three specimens collected within a 3-6 month period be abnormal before considering a patient to be within a diagnostic category. 01/24/2024 9:52 AM CDT 01/24/2024 8:02 PM CDT Narrative [facility] ([facility]) - 01/25/2024 5:38 AM CDT SPLIT 01/24/2024 FROM [id number] Resulting Agency Comment Performing Organization Information: ?Site ID: [place] ?Name: [facility] ?Address: [address] [place] [address] [place] [address] ?Director: Beatriz Dodge MD Kev Dey MD LAB URINE ORDERABLES [facility] ([facility]) * (ABNORMAL) Urinalysis, Complete (01/24/2024 9:52 AM CDT) Color of Urine YELLOW YELLOW [facility] ([facility]) Appearance of Urine CLEAR CLEAR [facility] ([facility]) Specific gravity of Urine 1.013 1.001 - 1.[address] [facility] ([facility]) pH of Urine 5.5 5.0 - 8.[address] [facility] ([facility]) Glucose, Urine NEGATIVE NEGATIVE [facility] ([facility]) Bilirubin, total, Urine NEGATIVE NEGATIVE [facility] ([facility]) Ketones, Urine NEGATIVE NEGATIVE [facility] ([facility]) Hemoglobin, Urine NEGATIVE NEGATIVE [facility] ([facility]) Protein, Urine NEGATIVE NEGATIVE [facility] ([facility]) Nitrite, Urine NEGATIVE NEGATIVE [facility]) Leukocyte esterase, Urine TRACE(A) NEGATIVE [facility] ([facility]) Leukocytes, Urine sediment 0-5 < OR = 5 /HPF [facility] ([facility]) Erythrocytes, Urine sediment NONE SEEN < OR = 2 /HPF [facility] ([facility]) Epithelial cells, squamous, Urine sediment 0-5 < OR = 5 /HPF [facility] ([facility]) Bacteria, Urine sediment NONE SEEN NONE SEEN /HPF [facility] ([facility]) Hyaline casts, Urine sediment 0-5(A) NONE SEEN /LPF [facility]) 01/24/2024 9:52 AM CDT 01/24/2024 8:02 PM CDT Narrative [facility] ([facility]) - 01/25/2024 5:38 AM CDT SPLIT 01/24/2024 FROM [id number] Resulting Agency Comment Performing Organization Information: ?Site ID: [place] ?Name: [facility] ?Address: [address] [place] [address] [place] [address] ?Director: Beatriz oDdge MD Kev Dey MD LAB URINE ORDERABLES [facility] * (ABNORMAL) [...] 238 140 - 400 Thousand/u L [facility] ([facility]) Platelet mean volume, Blood 11.5 7.5 - 12.[address] [facility] ([facility]) Neutrophils, Blood 4,973 1,500 - 7,800 cells/uL [facility] ([facility]) Lymphocytes, Blood 1,613 850 - 3,900 cells/uL [facility] ([facility]) Monocytes, Blood 713 200 - 950 cells/uL [facility]) Eosinophils, Blood [...] AM CDT 01/24/2024 8:41 AM CDT Narrative [facility] ([facility] - 01/25/2024 6:27 AM CDT FASTING:YES PATIENT UNABLE TO VOID; ADVISED TO RETURN FOR COLLECTION. FASTING: YES Resulting Agency Comment Performing Organization Information: ?Site ID: [place] ?Name: [facility] ?Address: [address] [place] [address] ?Director: Beatriz Dodge MD Kev Dey MD LAB BLOOD ORDERABLES [facility] ([facility]) * (ABNORMAL) Renal Function Panel (RFP) (01/24/2024 8:40 AM CDT) Glucose, Serum/Plasma 143(H) 65 - 99 mg/dL [facility] ([facility]) Comment: ? Fasting reference interval For someone without known diabetes, a glucose value >125 mg/dL indicates that they may have diabetes and this should be confirmed with a follow-up test. Urea nitrogen, Serum/Plasma (BUN) 29(H) 7 - 25 mg/dL [facility] ([facility]) Creatinine, Serum/Plasma 1.91(H) 0.70 - 1.28 mg/dL [facility] ([facility]) Estimated Glomerular Filtration Rate (eGFR) 37(L) > OR = 60 mL/min/1.7 3m2 [facility] ([facility]) Urea nitrogen/Creati nine, Serum/Plasma 15 6 - 22 (calc) [facility] ([facility]) Sodium, Serum/Plasma 137 135 - 146 mmol/L [facility] ([facility]) Potassium, Serum/Plasma 4.1 3.5 - 5.3 mmol/L [facility] ([facility]) Chloride, Serum/Plasma 100 98 - 110 mmol/L [facility] ([facility]) Carbon dioxide CO2), total, Serum/Plasma 28 20 - 32 mmol/L [facility] ([facility]) Calcium, Serum/Plasma 9.4 8.6 - 10.3 mg/dL [facility] ([facility]) Phosphate, Serum/Plasma 2.8 2.1 - 4.3 mg/dL [facility] ([facility]) Albumin, Serum/Plasma 3.9 3.6 - 5.1 g/dL [facility] ([facility]) 01/24/2024 8:40 AM CDT 01/24/2024 8:41 AM CDT Narrative [facility] - 01/25/2024 6:27 AM CDT FASTING:YES PATIENT UNABLE TO VOID; ADVISED TO RETURN FOR COLLECTION. FASTING: YES Resulting Agency Comment Performing Organization Information: ?Site ID: [place] ?Name: [facility] ?Address: [address] [place] [address] ?Director: Beatriz Dodge MD Kev Dey MD LAB BLOOD ORDERABLES [facility] ([facility] * PTH Intact and Calcium, Serum (01/24/2024 8:40 AM CDT) PTH, Intact, Serum/Plasma 26 16 - 77 pg/mL [facility] ([facility]) Comment: Interpretive Guide ?Intact PTH ? Calcium ? ------- Normal Parathyroid ?Normal ? Normal Hypoparathyroidism ?Low or Low Normal ?Low Hyperparathyroidism ?? Primary ?Normal or High ? High ?? Secondary ?High ? Normal or Low ?? Tertiary ? High ? High Non-Parathyroid ?? Hypercalcemia ?Low or Low Normal ?High Calcium, Serum/Plasma 9.4 8.6 - 10.3 mg/dL [facility]) 01/24/2024 8:40 AM CDT 01/24/2024 8:41 AM CDT Narrative [facility] ([facility] - 01/25/2024 6:27 AM CDT FASTING:YES PATIENT UNABLE TO VOID; ADVISED TO RETURN FOR COLLECTION. FASTING: YES Resulting Agency Comment Performing Organization Information: ?Site ID: [place] ?Name: [facility] ?Address: [address] [facility] [place] [address] ?Director: Beatriz Dodge MD Kev Dey MD LAB BLOOD ORDERABLES [facility] ([facility]) from Last 3 Months Care Teams Jumpbasting Collar Baster Relationship Specialty Start Date End Date Erwin Gardner MD [address] [place] [address] PCP - General Internal Medicine 10/03/19
--- OUTSIDE RECORDS SUMMARY | 2024-04-15 06:18 | XMS_ITS | Encounter Summary ---
Author Organization [facility] Address [address] [place] [address] Phone Care Team Providers Care Custodial Maintenance Worker Name Role Phone Erwin Gardner MD Primary Care Provider [phone] Encounter Details Date Type Department Care Team (Late st Contact Info) Description 07/27/2023 Orders Only [facility] [address] [facility] 1 [place], [place] [id number] Massiel Meehan NP [address] [id number] Social History Tobacco Use Types Packs/Day Years [...] st Contact Info) Description 06/04/2024 1:40 PM OBIEE ARCHITECT Office Visit [facility] [address] [facility] [address] [place], [place] [id number] Massiel Meehan NP [address] [phone] documented as of this encounter Procedures Procedure Name Priority Date/Time Associated Diagnosis Comments MICROALBUMIN, RANDOM URINE WITH CREATININE Routine 07/27/2023 9:37 AM CDT CBC (INCLUDES DIFFERENTIAL/PLATELE TS) Routine 07/27/2023 9:37 AM CDT URINALYSIS, COMPLETE Routine 07/27/2023 9:37 AM CDT RENAL FUNCTION PANEL (RFP) Routine 07/27/2023 9:37 AM CDT PTH INTACT AND CALCIUM, SERUM Routine 07/27/2023 9:37 AM CDT documented in this encounter Results * Microalbumin, Random Urine with Creatinine (07/27/2023 9:37 AM CDT) Creatinine, Urine 25 20 - 320 mg/dL [facility] ([facility]) Microalbumin, Urine <0.2 See Note: mg/dL [facility] ([facility]) Comment: Reference Range: Reference Range Not established Albumin/Creatinine , Urine NOTE <30 mg/g creat [facility] ([facility]) Comment: NOTE: The urine albumin value is less than 0.2 mg/dL therefore we are unable to calculate excretion and/or creatinine ratio. The ADA defines abnormalities in albumin excretion as follows: Albuminuria Category ?Result (mg/g creatinine) Normal to Mildly increased ?? <30 Moderately increased ? 30-299 Severely increased ? > OR = 300 The ADA recommends that at least two of three specimens collected within a 3-6 month period be abnormal before considering a patient to be within a diagnostic category. 07/27/2023 9:37 AM CDT 07/27/2023 9:39 AM CDT Narrative Resulting Agency Comment Performing Organization Information: ?Site ID: [place] ?Name: [employer] ?Address: [address] [address] ?Director: Beatriz Dodge MD Massiel Meehan NP LAB URINE ORDERABLES [facility] ([facility]) * Urinalysis, Complete (07/27/2023 9:37 AM CDT) Color of Urine YELLOW YELLOW [facility] ([facility]) Appearance of Urine CLEAR CLEAR [facility] ([facility]) Specific gravity of Urine 1.005 1.001 - 1.[address] [facility] ([facility]) pH of Urine 6.5 5.0 - 8.[address] [facility] ([facility]) Glucose, Urine NEGATIVE NEGATIVE [facility]) Bilirubin, total, Urine NEGATIVE NEGATIVE [facility]) Ketones, Urine NEGATIVE NEGATIVE [facility]) Hemoglobin, Urine NEGATIVE NEGATIVE [facility]) Protein, Urine NEGATIVE NEGATIVE [facility] ([facility]) Nitrite, Urine NEGATIVE NEGATIVE [facility]) Leukocyte esterase, Urine NEGATIVE NEGATIVE [facility]) Leukocytes, Urine sediment NONE SEEN < OR = 5 /HPF [facility]) Erythrocytes, Urine sediment NONE SEEN < OR = 2 /HPF [facility] ([facility]) Epithelial cells, squamous, Urine sediment NONE SEEN < OR = 5 /HPF [facility] ([facility]) Bacteria, Urine sediment NONE SEEN NONE SEEN /HPF [facility] ([facility]) Hyaline casts, Urine sediment NONE SEEN NONE SEEN /LPF [facility]) 07/27/2023 9:37 AM CDT 07/27/2023 9:39 AM CDT Narrative Resulting Agency Comment Performing Organization Information: ?Site ID: [place] ?Name: [facility] ?Address: [address] [address] ?Director: Beatriz Dodge MD Massiel Meehan NP LAB URINE ORDERABLES [facility] ([facility]) * (ABNORMAL) Renal Function Panel (RFP) (07/27/2023 9:37 AM CDT) Pathologist [facility] Glucose, Serum/Plasma 137(H) 65 - 99 mg/dL [facility] ([facility]) Comment: ? Fasting reference interval For someone without known diabetes, a glucose value >125 mg/dL indicates that they may have diabetes and this should be confirmed with a follow-up test. Urea nitrogen, Serum/Plasma (BUN) 31(H) 7 - 25 mg/dL [facility] ([facility]) Creatinine, Serum/Plasma 1.84(H) 0.70 - 1.28 mg/dL [facility]) Estimated Glomerular Filtration Rate (eGFR) 38(L) > OR = 60 mL/min/1.7 3m2 [facility] ([facility]) Urea nitrogen/Creati nine, Serum/Plasma 17 6 - 22 (calc) [facility]) Sodium, Serum/Plasma 133(L) 135 - 146 mmol/L [facility]) Potassium, Serum/Plasma 4.2 3.5 - 5.3 mmol/L [facility]) Chloride, Serum/Plasma 98 98 - 110 mmol/L [facility] ([facility]) Carbon dioxide CO2), total, Serum/Plasma 28 20 - 32 mmol/L [facility]) Calcium, Serum/Plasma 9.2 8.6 - 10.3 mg/dL [facility]) Phosphate, Serum/Plasma 2.6 2.1 - 4.3 mg/dL [facility]) Albumin, Serum/Plasma 4.2 3.6 - 5.1 g/dL [facility] ([facility]) 07/27/2023 9:37 AM CDT 07/27/2023 9:39 AM CDT Narrative Resulting Agency Comment Performing Organization Information: ?Site ID: [place] ?Name: [employer] ?Address: [place] [address] ?Director: Beatriz Dodge MD Massiel Meehan NP LAB BLOOD ORDERABLES [facility] * PTH Intact and Calcium, Serum (07/27/2023 9:37 AM CDT) PTH, Intact, Serum/Plasma 63 16 - 77 pg/mL [facility] ([facility]) Comment: Interpretive Guide ?Intact PTH ? Calcium ? ------- Normal Parathyroid ?Normal ? Normal Hypoparathyroidism ?Low or Low Normal ?Low Hyperparathyroidism ?? Primary ?Normal or High ? High ?? Secondary ?High ? Normal or Low ?? Tertiary ? High ? High Non-Parathyroid ?? Hypercalcemia ?Low or Low Normal ?High Calcium, Serum/Plasma 9.2 8.6 - 10.3 mg/dL [facility] ([facility]) 07/27/2023 9:37 AM CDT 07/27/2023 9:39 AM CDT Narrative Resulting Agency Comment Performing Organization Information: ?Site ID: [place] ?Name: [facility] ?Address: [address] [address] ?Director: Beatriz Dodge MD Massiel Meehan KILN STOKER LAB BLOOD ORDERABLES [facility] ([facility]) * (ABNORMAL) CBC (includes Differential/Platelets) (07/27/2023 9:37 AM CDT) Leukocytes, Blood 6.7 3.8 - 10.8 Thousand/u L [facility] ([facility]) Erythrocytes (RBC) 3.77(L) 4.20 - 5.80 Million/uL [facility] ([facility]) Hemoglobin (HGB) 11.9(L) 13.2 - 17.1 g/dL [facility]) Hematocrit (HCT) 34.8(L) 38.5 - 50.0 % [facility]) MCV 92.3 80.0 - 100.[address] [facility]) MCH 31.6 27.0 - 33.[address] [facility] ([facility]) MCHC 34.2 32.0 - 36.0 g/dL [facility]) Erythrocyte Distribution Width (RDW) 12.9 11.0 - 15.0 % [facility]) Platelets, Blood 190 140 - 400 Thousand/u L [facility]) Platelet mean volume, Blood 11.5 7.5 - 12.[address] [facility]) Neutrophils, Blood 4,643 1,500 - 7,800 cells/uL [facility]) Lymphocytes, Blood 1,293 850 - 3,900 cells/uL [facility]) Monocytes, Blood 603 200 - 950 cells/uL [facility]) Eosinophils, Blood 121 15 - 500 cells/uL [facility]) Basophils, Blood 40 0 - 200 cells/uL [facility]) Neutrophils/100 leukocytes, Blood 69.3 % [facility] Lymphocytes/100 leukocytes, Blood 19.3 % [facility]) Monocytes/100 leukocytes, Blood 9.0 % [facility]) Eosinophils/100 leukocytes, Blood 1.8 % [facility]) Basophils/100 leukocytes, Blood 0.6 % [facility]) 07/27/2023 9:37 AM CDT 07/27/2023 9:39 AM CDT Narrative Resulting Agency Comment Performing Organization Information: ?Site ID: [place] ?Name: [facility] ?Address: [address] [place], [place] [address] [address] ?Director: Beatriz Dodge MD Massiel Meehan KILN STOKER LAB BLOOD ORDERABLES [facility] ([facility]) documented in this encounter Visit Diagnoses Not on filedocumented in this encounter Care Teams Custodial Maintenance Worker Relationship Specialty Start Date End Date Erwin Gardner MD [address] [place] [address] PCP - General Internal Medicine 10/03/19 documented as of this encounter
--- OUTSIDE RECORDS SUMMARY | 2024-04-15 06:18 | XMS_ITS | Encounter Summary ---
Author Organization [facility] Address [address] [place] [address] Phone Care Team Providers Care Boarding House Cook Name Role Phone Erwin Gardner MD Primary Care Provider [phone] Encounter Details Date Type Department Care Team (Late st Contact Info) Description 12/17/2020 Orders Only [facility] [address] [facility] 1 [place] [address] Kev Dey MD [address] [address] Social History Tobacco Use Types [...] st Contact Info) Description 06/04/2024 1:40 PM STRUCTURAL ANALYST Office Visit [facility] [address] [address] [facility] [address] [place] [address] Massiel Meehan NP [address] [address] documented as of this encounter Procedures Procedure Name Priority Date/Time Associated Diagnosis Comments IMMUNOFIXATION (MARGARITA), URINE Routine 12/17/2020 7:07 AM CDT MICROALBUMIN, RANDOM URINE WITH CREATININE Routine 12/17/2020 7:07 AM CDT CBC (INCLUDES DIFFERENTIAL/PLATELETS) Routine 12/17/2020 7:07 AM CDT URINALYSIS, COMPLETE Routine 12/17/2020 7:07 AM CDT RENAL FUNCTION PANEL (RFP) Routine 12/17/2020 7:07 AM CDT PROTEIN ELECTROPHORESIS, URINE, RANDOM Routine 12/17/2020 7:07 AM CDT IMMUNOFIXATION, SERUM Routine 12/17/2020 7:07 AM CDT PTH INTACT AND CALCIUM, SERUM Routine 12/17/2020 7:07 AM CDT PROTEIN ELECTROPHORESIS, SERUM Routine 12/17/2020 7:07 AM CDT documented in this encounter Results * Immunofixation (MARGARITA), Urine (12/17/2020 7:07 AM CDT) Immunofixation for Urine IgG lambda monoclonal band present. [facility] ([facility]) 12/17/2020 7:07 AM CDT 12/17/2020 7:07 AM CDT Narrative Resulting Agency Comment Performing Organization Information: ?Site ID: [id number] ?Name: [facility] ?Address: [address] [place] [address] [place] [address] ?Director: Taurus Yen D.O., MPH Kev Dey MD LAB BLOOD ORDERABLES [facility] ([facility]) * Immunofixation, Serum (12/17/2020 7:07 AM CDT) Immunofixation for Serum/Plasma IgG lambda monoclonal band present. [facility] ([facility]) 12/17/2020 7:07 AM CDT 12/17/2020 7:07 AM CDT Narrative Resulting Agency Comment Performing Organization Information: ?Site ID: [id number] ?Name: [facility] ?Address: [address] [address] ?Director: Taurus Yen D.O., MPH Kev Dey MD LAB URINE ORDERABLES [facility] ([facility]) * (ABNORMAL) Protein Electrophoresis, Urine, Random (12/17/2020 7:07 AM CDT) Creatinine, Urine 43 20 - 320 mg/dL [facility] ([facility]) Protein/Creatinine, Urine 488(H) 22 - 128 mg/g creat [facility] ([facility]) Protein/Creatinine, Urine 0.488(H) 0.022 - 0.128 mg/mg creat [facility] ([facility]) Protein, Urine 21 5 - 25 mg/dL [facility] ([facility]) Albumin/Protein, total 100 % [facility] ([facility]) Alpha 1 globulin/Protein, total 0 % [facility] ([facility]) Alpha 2 globulin/Protein, total 0 % [facility] ([facility]) Beta globulin/Protein, total 0 % [facility] ([facility]) Gamma globulin/Protein, total 0 % [facility] ([facility]) Protein Fractions, Urine [facility] ([facility]) Comment: Agarose electrophoresis of urine reveals albumin. No abnormal protein is observed. 12/17/2020 7:07 AM CDT 12/17/2020 7:07 AM CDT Narrative Resulting Agency Comment Performing Organization Information: ?Site ID: [id number] ?Name: [facility] ?Address: [address] [address] ?Director: Taurus Yen D.O., MPH Kev Dey MD LAB URINE ORDERABLES Performing Organization Address [facility] de Phone Number [facility] [place] ([facility]) * (ABNORMAL) Microalbumin, Random Urine with Creatinine (12/17/2020 7:07 AM CDT) Creatinine, Urine 43 20 - 320 mg/dL [facility] ([facility]) Microalbumin, Urine 2.0 See Note: mg/dL [facility] [place] ([facility]) Comment: Reference Range: Reference Range Not established Albumin/Creatinine , Urine 47(H) <30 mcg/mg creat [facility] [place] (ST) Comment: The ADA defines abnormalities in albumin excretion as follows: Albuminuria Category ?Result (mcg/mg creatinine) Normal to Mildly increased ?? <30 Moderately increased ? 30-299 Severely increased ? > OR = 300 The ADA recommends that at least two of three specimens collected within a 3-6 month period be abnormal before considering a patient to be within a diagnostic category. 12/17/2020 7:07 AM CDT 12/17/2020 7:07 AM CDT Narrative Resulting Agency Comment Performing Organization Information: ?Site ID: [id number] ?Name: [facility] ?Address: [address] [place] [address] [place] [address] ?Director: Taurus Yen D.O. MPH Kev Dey MD LAB URINE ORDERABLES Performing Organization Address [facility] de Phone Number [facility] [place] ([facility]) * (ABNORMAL) Renal Function Panel (RFP) (12/17/2020 7:07 AM CDT) Glucose, Serum/Plasma 219(H) 65 - 99 mg/dL [facility] [place] ([facility]) Comment: ? Fasting reference interval For someone without known diabetes, a glucose value >125 mg/dL indicates that they may have diabetes and this should be confirmed with a follow-up test. Urea nitrogen, Serum/Plasma (BUN) 29(H) 7 - 25 mg/dL [facility] [place] (ST) Creatinine, Serum/Plasma 1.79(H) 0.70 - 1.18 mg/dL [facility] [place] ([facility]) Comment: For patients >49 years of age, the reference limit for Creatinine is approximately 13% higher for people identified as -Y[place]i. eGFR, non 38(L) > OR = 60 mL/min/1. 73m2 [facility] [place] ([facility]) eGFR, 44(L) > OR = 60 mL/min/1. 73m2 [facility] [place] ([facility]) Urea nitrogen/Creatinin e, Serum/Plasma 16 6 - 22 (calc) [facility] ([facility]) Sodium, Serum/Plasma 138 135 - 146 mmol/L [facility] [place] ([facility]) Potassium, Serum/Plasma 4.4 3.5 - 5.3 mmol/L [facility] [place] ([facility]) Chloride, Serum/Plasma 102 98 - 110 mmol/L [facility] ([facility]) Carbon dioxide CO2), total, Serum/Plasma 28 20 - 32 mmol/L [facility] [place] ([facility]) Calcium, Serum/Plasma 8.8 8.6 - 10.3 mg/dL [facility] ([facility]) Phosphate, Serum/Plasma 2.9 2.1 - 4.3 mg/dL [facility] [place] ([facility]) Albumin, Serum/Plasma 4.0 3.6 - 5.1 g/dL [facility] (ST) 12/17/2020 7:07 AM CDT 12/17/2020 7:07 AM CDT Narrative Resulting Agency Comment Performing Organization Information: ?Site ID: [place] ?Name: [facility] ?Address: [facility] [address] [address] ?Director: Taurus Yen D.O., MPH Kev Dey MD LAB BLOOD ORDERABLES Performing Organization Address City/State/[place] de Phone Number [facility] ([facility]) * (ABNORMAL) PTH Intact and Calcium, Serum (12/17/2020 7:07 AM CDT) PTH, Intact, Serum/Plasma 85(H) 14 - 64 pg/mL [facility] [place] ([facility]) Comment: Interpretive Guide ?Intact PTH ? Calcium ? ------- Normal Parathyroid ?Normal ? Normal Hypoparathyroidism ?Low or Low Normal ?Low Hyperparathyroidism ?? Primary ?Normal or High ? High ?? Secondary ?High ? Normal or Low ?? Tertiary ? High ? High Non-Parathyroid ?? Hypercalcemia ?Low or Low Normal ?High Calcium, Serum/Plasma 8.8 8.6 - 10.3 mg/dL [facility] [place] ([facility]) 12/17/2020 7:07 AM CDT 12/17/2020 7:07 AM CDT Narrative Resulting Agency Comment Performing Organization Information: ?Site ID: [id number] ?Name: [facility] ?Address: [address] [place] [address] [place] [address] ?Director: Taurus Yen D.O., MPH Kev Dey MD LAB BLOOD ORDERABLES [facility] ([facility]) * (ABNORMAL) Protein Electrophoresis, Serum (12/17/2020 7:07 AM CDT) Protein, Serum/Plasma 7.0 6.1 - 8.1 g/dL [facility] ([facility]) Albumin, Serum/Plasma 3.9 3.8 - 4.8 g/dL [facility] ([facility]) Alpha 1 globulin, Serum/Plasma 0.3 0.2 - 0.3 g/dL [facility] ([facility]) Alpha 2 globulin, Serum/Plasma 0.7 0.5 - 0.9 g/dL [facility] ([facility]) Beta 1 globulin, Serum/Plasma 0.5 0.4 - 0.6 g/dL [facility] ([facility]) Beta 2 globulin, Serum/Plasma 0.4 0.2 - 0.5 g/dL [facility] ([facility]) Gamma globulin, Serum/Plasma 1.4 0.8 - 1.7 g/dL [facility] ([facility]) Protein, monoclonal band 1, Serum/Plasma 0.9(H) NONE DETECTED g/dL [facility] ([facility]) Protein Fractions, Serum/Plasma [facility] ([facility]) Comment: Restricted band (M-spike) migrating in the gamma region. Consider serum immunofixation to rule out a monoclonal protein if clinically indicated. 12/17/2020 7:07 AM CDT 12/17/2020 7:07 AM CDT Narrative Resulting Agency Comment Performing Organization Information: ?Site ID: [id number] ?Name: [facility] ?Address: [address] [place] [address] ?Director: Taurus Yen D.O., MPH Kev Dey MD LAB BLOOD ORDERABLES [facility] [place] ([facility]) * (ABNORMAL) Urinalysis, Complete (12/17/2020 7:07 AM CDT) Color of Urine YELLOW YELLOW [facility] ([facility]) Appearance of Urine CLOUDY(A) CLEAR [facility] ([facility]) Specific gravity of Urine 1.010 1.001 - 1.035 [facility] ([facility]) pH of Urine 5.5 5.0 - 8.[address] [facility] ([facility]) Glucose, Urine 1+(A) NEGATIVE [facility] ([facility]) Bilirubin, total, Urine NEGATIVE NEGATIVE [facility] ([facility]) Ketones, Urine NEGATIVE NEGATIVE [facility] ([facility]) Hemoglobin, Urine 2+(A) NEGATIVE [facility] ([facility]) Protein, Urine NEGATIVE NEGATIVE [facility] ([facility]) Nitrite, Urine NEGATIVE NEGATIVE [facility] ([facility]) Leukocyte esterase, Urine 3+(A) NEGATIVE [facility] ([facility]) Leukocytes, Urine sediment > OR = 60(A) < OR = 5 /HPF [facility] [place] ([facility]) Hyaline casts, Urine sediment 0-1(A) NONE SEEN /LPF [facility] ([facility]) 12/17/2020 7:07 AM CDT 12/17/2020 7:07 AM CDT Narrative Resulting Agency Comment Performing Organization Information: ?Site ID: [id number] ?Name: [facility] ?Address: [address] [place] [address] ?Director: Taurus Yen D.O., MPH Kev Dey MD LAB URINE ORDERABLES [facility] ([facility]) * (ABNORMAL) CBC (includes Differential/Platelets) (12/17/2020 7:07 AM CDT) Leukocytes, Blood 5.4 3.8 - 10.8 Thousand/u L [facility] [place] (L) Erythrocytes (RBC) 3.47(L) 4.20 - 5.80 Million/uL [facility] [place] (L) Hemoglobin (HGB) 10.7(L) 13.2 - 17.1 g/dL [facility] [place] (L) Hematocrit (HCT) 32.7(L) 38.5 - 50.0 % [facility] [place] ([facility]) MCV 94.2 80.0 - 100.0 fL [facility] [place] ([facility]) MCH 30.8 27.0 - 33.0 pg [facility] [place] ([facility]) MCHC 32.7 32.0 - 36.0 g/dL [facility] [place] ([facility]) Erythrocyte Distribution Width (RDW) 13.5 11.0 - 15.0 % [facility] [place] ([facility]) Platelets, Blood 190 140 - 400 Thousand/u L [facility] [place] ([facility]) Platelet mean volume, Blood 11.9 7.5 - 12.5 fL [facility] [place] ([facility]) Neutrophils, Blood 3,278 1,500 - 7,800 cells/uL [facility] [place] ([facility]) Lymphocytes, Blood 1,409 850 - 3,900 cells/uL [facility] [place] ([facility]) Monocytes, Blood 524 200 - 950 cells/uL [facility] [place] ([facility]) Eosinophils, Blood 140 15 - 500 cells/uL [facility] [place] ([facility]) Basophils, Blood 49 0 - 200 cells/uL [facility] ([facility]) Neutrophils/100 leukocytes, Blood 60.7 % [facility] ([facility]) Lymphocytes/100 leukocytes, Blood 26.1 % [facility] ([facility]) Monocytes/100 leukocytes, Blood 9.7 % [facility] ([facility]) Eosinophils/100 leukocytes, Blood 2.6 % [facility] ([facility]) Basophils/100 leukocytes, Blood 0.9 % [facility] ([facility]) 12/17/2020 7:07 AM CDT 12/17/2020 7:07 AM CDT Narrative Resulting Agency Comment Performing Organization Information: ?Site ID: [id number] ?Name: [facility] ?Address: [facility] [place] [address] ?Director: Beatriz Dodge Kev Dey MD LAB BLOOD ORDERABLES [facility] ([facility]) documented in this encounter Visit Diagnoses Not on filedocumented in this encounter Care Teams Boarding House Cook Relationship Specialty Start Date End Date Erwin Gardner MD [address] [place] [address] PCP - General Internal Medicine 10/03/19 documented as of this encounter
--- OUTSIDE RECORDS SUMMARY | 2024-04-15 06:18 | XMS_ITS | Encounter Summary ---
Author Organization [facility] Address [address] [place] [address] Phone Care Team Providers Care Game Trapper Name Role Phone Darlene Chirinos MD Primary Care Provider Reason for Visit * Reason Comments CKD Encounter Details Date Type Department Care Team (Late st Contact Info) Description 02/16/2021 12:20 PM PROFESSOR OF OCEANOGRAPHY Telemedicine [facility] [address] [place] [address] Tony Dey MD [address] [address] Stage 3b chronic kidney disease (CMS-HCC) (Primary Dx); Diabetes mellitus with renal manifestations, type II or unspecified type, uncontrolled (CMS-HCC); Monoclonal gammopathy; Essential (primary) hypertension Social History Tobacco Use Types Packs/Day Years [...] - Inhaled Oxygen Concentration - - Weight - - Height 190.5 cm (6' 3 ) 02/16/2021 8:37 AM PROFESSOR OF OCEANOGRAPHY Body Mass Index - - documented in this encounter Progress Notes * Tony Dey MD - 02/16/2021 12:20 PM CST Patient: Darlene Isaac Birthdate: 1950 PCP: DARLENE CHIRINOS MD Reason for visit: Visit Date: 02/16/2021 CHIEF COMPLAINT CKD INTERIM HISTORY Darlene Isaac is a 70 y.o. male presenting with a past medical history of diabetes mellitus, hypertension, monoclonal gammopathy of unknown significance, elevated creatinine levels. Creatinine in December of 1.79 mg/dL. At that time urinary studies showed IgG kappa on urine sample as well as blood sample. 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 Makes good urine. No other complaints voiced. Did not have any complications post biopsy. Is back on his warfarin therapy which is on hold for a while. No gross hematuria.No flank pain. PAST MEDICAL HISTORY Past Medical History: Diagnosis [...] Systems VITALS Ht 6' 3 (1.905 m) BMI 39.00 kg/m?? BSA 2.74 m?? PHYSICAL EXAM Physical Exam Telehealth visit RECENT LABS Lab Results Component Value Date [...] Diagnoses and all orders for this visit: Stage 3b chronic kidney disease ([facility]) Not determined to have a cause. This is due to diabetes mellitus for the most part.- There is no light chain deposition disease Uric Acid, Serum; Future - PTH Intact w/o Calcium, Serum; Future - Renal Function Panel (RFP); Future - CBC (includes Platelets / NO Differential); Future Diabetes mellitus with renal manifestations, type II or unspecified type, uncontrolled ([facility]) Definitive findings of diabetic renal disease. On losartan. Keep blood pressure and blood sugars controlled. Discussed with patient. Monoclonal gammopathy No light chain deposition disease determined in the kidneys Essential (primary) hypertension On a consistent basis keep blood pressure less than 140/90. -Continue follow-up in 3 months for now. Check labs at that time Blood Pressure for this visit is . The follow up plan to address blood pressure is keep blood pressure less than 140/90. The patient should return for BP check in 3 months TONY DEY MD documented in this encounter Plan of Treatment Upcoming Encounters Date Type Department Care Team (Late st Contact Info) Description 06/04/2024 1:40 PM PROFESSOR OF OCEANOGRAPHY Office Visit [facility] [address], [address] [place], [place] [id number] Massiel Meehan, EVP SALES [address] [facility] 1 [place] [address] documented as of this encounter Procedures Procedure Name Priority Date/Time Associated Diagnosis Comments CBC (INCLUDES PLATELETS / NO DIFFERENTIAL) Routine 05/10/2021 7:33 AM PROFESSOR OF OCEANOGRAPHY Stage 3b chronic kidney disease ([facility]) RENAL FUNCTION PANEL (RFP) Routine 05/10/2021 7:33 AM PROFESSOR OF OCEANOGRAPHY Stage 3b chronic kidney disease ([facility]) URIC ACID, SERUM Routine 05/10/2021 7:33 AM PROFESSOR OF OCEANOGRAPHY Stage 3b chronic kidney disease ([facility]) PTH INTACT W/O CALCIUM, SERUM Routine 05/10/2021 7:33 AM PROFESSOR OF OCEANOGRAPHY Stage 3b chronic kidney disease ([facility]) documented in this encounter Results * (ABNORMAL) CBC (includes Platelets / NO Differential) (05/10/2021 7:33 AM PROFESSOR OF OCEANOGRAPHY) Leukocytes, Blood 6.9 3.8 - 10.8 Thousand/u L [facility] [place] ([facility]) Erythrocytes (RBC) 4.27 4.20 - 5.80 Million/uL [facility] [place] ([facility]) Hemoglobin (HGB) 12.8(L) 13.2 - 17.1 g/dL [facility] [place] ([facility]) Hematocrit (HCT) 38.4(L) 38.5 - 50.0 % [facility] ([facility]) MCV 89.9 80.0 - 100.[address] [facility] ([facility]) MCH 30.0 27.0 - 33.0 pg [facility] [place] ([facility]) MCHC 33.3 32.0 - 36.0 g/dL [facility] ([facility]) Erythrocyte Distribution Width (RDW) 12.7 11.0 - 15.0 % [facility] [place] ([facility]) Platelets, Blood 208 140 - 400 Thousand/u L [facility] [place] ([facility]) Platelet mean volume, Blood 12.1 7.5 - 12.5 fL [facility] [place] (ST) Blood 05/10/2021 7:33 AM PROFESSOR OF OCEANOGRAPHY 05/10/2021 7:34 AM PROFESSOR OF OCEANOGRAPHY Narrative Resulting Agency Comment Performing Organization Information: ?Site ID: [place] ?Name: [facility] ?Address: [address] [place] [address] [place] [address] ?Director: Taurus Yen D.O., MPH Tony Dey MD LAB BLOOD ORDERABLES [facility] [place] ([facility]) * (ABNORMAL) Renal Function Panel (RFP) (05/10/2021 7:33 AM PROFESSOR OF OCEANOGRAPHY) Pathologist [facility] Glucose, Serum/Plasma 172(H) 65 - 99 mg/dL [facility] [place] ([facility]) Comment: ? Fasting reference interval For someone without known diabetes, a glucose value >125 mg/dL indicates that they may have diabetes and this should be confirmed with a follow-up test. Urea nitrogen, Serum/Plasma (BUN) 35(H) 7 - 25 mg/dL [facility] [place] ([facility]) Creatinine, Serum/Plasma 1.87(H) 0.70 - 1.18 mg/dL [facility] [place] ([facility]) Comment: For patients >49 years of age, the reference limit for Creatinine is approximately 13% higher for people identified as -[place]. eGFR, non 35(L) > OR = 60 mL/min/1. 73m2 [facility] [place] ([facility]) eGFR, 41(L) > OR = 60 mL/min/1. 73m2 [facility] [place] ([facility]) Urea nitrogen/Creatinin e, Serum/Plasma 19 6 - 22 (calc) [facility] [place] ([facility]) Sodium, Serum/Plasma 136 135 - 146 mmol/L [facility] [place] ([facility]) Potassium, Serum/Plasma 4.6 3.5 - 5.3 mmol/L [facility] [place] ([facility]) Chloride, Serum/Plasma 98 98 - 110 mmol/L [facility] ([facility]) Carbon dioxide CO2), total, Serum/Plasma 32 20 - 32 mmol/L [facility] [place] (ST) Calcium, Serum/Plasma 9.8 8.6 - 10.3 mg/dL [facility] [place] ([facility]) Phosphate, Serum/Plasma 3.1 2.1 - 4.3 mg/dL [facility] [place] ([facility]) Albumin, Serum/Plasma 4.4 3.6 - 5.1 g/dL [facility] [place] ([facility]) Blood 05/10/2021 7:33 AM PROFESSOR OF OCEANOGRAPHY 05/10/2021 7:34 AM PROFESSOR OF OCEANOGRAPHY Narrative Resulting Agency Comment Performing Organization Information: ?Site ID: [place] ?Name: [facility] ?Address: [address] [place] [address] ?Director: Taurus Yen D.O., MPH Tony Dey MD LAB BLOOD ORDERABLES [facility] [place] ([facility]) * PTH Intact w/o Calcium, Serum (05/10/2021 7:33 AM PROFESSOR OF OCEANOGRAPHY) PTH, Intact, Serum/Plasma 58 14 - 64 pg/mL [facility] [place] ([facility]) Comment: Interpretive Guide ?Intact PTH ? Calcium ? ------- Normal Parathyroid ?Normal ? Normal Hypoparathyroidism ?Low or Low Normal ?Low Hyperparathyroidism ?? Primary ?Normal or High ? High ?? Secondary ?High ? Normal or Low ?? Tertiary ? High ? High Non-Parathyroid ?? Hypercalcemia ?Low or Low Normal ?High Blood 05/10/2021 7:33 AM PROFESSOR OF OCEANOGRAPHY 05/10/2021 7:34 AM PROFESSOR OF OCEANOGRAPHY Narrative Resulting Agency Comment Performing Organization Information: ?Site ID: [place] ?Name: [facility] ?Address: [address] [facility] [place] [address] ?Director: Taurus Yen D.O., MPH Tony Dey MD LAB BLOOD ORDERABLES [facility] ([facility]) * Uric Acid, Serum (05/10/2021 7:33 AM PROFESSOR OF OCEANOGRAPHY) Urate, Serum/Plasma 6.4 4.0 - 8.0 mg/dL [facility] ([facility]) Comment: Therapeutic target for gout patients: <6.0 mg/dL ?? Blood (Blood, Venous) 05/10/2021 7:33 AM PROFESSOR OF OCEANOGRAPHY 05/10/2021 7:34 AM PROFESSOR OF OCEANOGRAPHY Narrative Resulting Agency Comment Performing Organization Information: ?Site ID: [place] ?Name: [facility] ?Address: [address] [address] ?Director: Taurus Yen D.O., MPH Tony Dey MD LAB BLOOD ORDERABLES [facility] ([facility]) documented in this encounter Visit Diagnoses Diagnosis Stage 3b chronic kidney disease (CMS-HCC)- Primary Diabetes mellitus with renal manifestations, type II or unspecified type, uncontrolled (CMS-HCC) Diabetes mellitus with renal manifestations, type II or unspecified type, uncontrolled Monoclonal gammopathy Essential (primary) hypertension documented in this encounter Care Teams Game Trapper Relationship Specialty Start Date End Date Darlene Chirinos MD [address] [place] [id number] PCP - General Internal Medicine 10/03/19 documented as of this encounter
--- OUTSIDE RECORDS SUMMARY | 2024-04-15 06:18 | XMS_ITS | Encounter Summary ---
Author Organization [facility] Address [address] [place] [phone] Phone Care Team Providers Care Product Mgr Name Role Phone Darlene Chirinos MD Primary Care Provider Reason for Visit * Reason Comments CKD Encounter Details Date Type Department Care Team (Late st Contact Info) Description 05/18/2021 12:00 PM ETL TESTER Telemedicine [facility] [address], [address] [place] [address] Tony Dey MD [address] [address] Stage 3b chronic kidney disease (CMS-HCC) (Primary Dx); Diabetes mellitus with renal manifestations, type II or unspecified type, uncontrolled (CMS-HCC); Essential (primary) hypertension; Monoclonal gammopathy Social History Tobacco Use Types Packs/Day Years [...] - Inhaled Oxygen Concentration - - Weight 144 kg (318 lb) 05/18/2021 12:05 PM ETL TESTER Height 190.5 cm (6' 3 ) 05/18/2021 8:56 AM ETL TESTER Body Mass Index 39.75 05/18/2021 8:56 AM ETL TESTER documented in this encounter Progress Notes * Tony Dey MD - 05/18/2021 12:00 PM CST Patient: Darlene Isaac Birthdate: 1950 PCP: DARLENE CHIRINOS MD Reason for visit: Visit Date: 05/18/2021 CHIEF COMPLAINT CKD INTERIM HISTORY Darlene Isaac is a 71 y.o. male presenting with a past medical history of diabetes mellitus, hypertension, chronic kidney failure. Current creatinine 1.87 mg/dL with an estimated GFR 35 mL/min. Hemoglobin is 12.8. Potassium is stable at 4.6 reading. He is on losartan and iron lactone at the same time. He is tolerating these. Serum albumin is 4.4 g/dL. PTH level is dropped from 85-58. He states that his hemoglobin A1c was 8.1. No urinary complaints. Goes about 4 times at night to urinate. Appetite is good. No nausea vomiting. PAST MEDICAL HISTORY Past Medical History: Diagnosis [...] Ht 6' 3 (1.905 m) Wt (!) 318 lb (144 kg) BMI 39.75 kg/m?? BSA 2.76 m?? PHYSICAL EXAM Physical Exam RECENT LABS Lab Results Component Value Date EGFR 35 (L) 05/10/2021 CREATININE 1.87 (H) 05/10/2021 CREATININEUR 43 12/17/2020 CREATININEUR 43 12/17/2020 GLUCOSE 172 (H) 05/10/2021 PTH 58 05/10/2021 HCT 38.4 (L) 05/10/2021 BUN 35 (H) 05/10/2021 NA 136 05/10/2021 K 4.6 05/10/2021 CL 98 05/10/2021 CO2 32 05/10/2021 ALBUMIN 4.4 05/10/2021 CA 9.8 05/10/2021 IMAGES DPS CONVERSION - CONSULTATION REPORT NOTE PROCEDURE Ordered by an unspecified provider. DPS CONVERSION - CONSULTATION REPORT NOTE PROCEDURE Ordered by an unspecified provider. ASSESSMENT AND PLAN Assessment/Plan Diagnoses and all orders for this visit: Stage 3b chronic kidney disease ([facility]) Patient has stable renal function. No changes in losartan and spironolactone. Monitor labs as indicated before. No changes noted with reference to the PTH level. - Uric Acid, Serum; Future - Albumin/Creatinine Ratio, Random, Urine; Future - Urinalysis, Complete, w/ Reflex to Culture; Future - PTH Intact w/o Calcium, Serum; Future - Renal Function Panel (RFP); Future - CBC (includes Platelets / NO Differential); Future Diabetes mellitus with renal manifestations, type II or unspecified type, uncontrolled [place] Goal is to keep hemoglobin A1c less than 7. Essential (primary) hypertension Goal is to get blood pressure less than 140/90 on a consistent basis. Monoclonal gammopathy Renal biopsy did not show any light chain deposition disease. Changes of diabetic origin. Goal of treatment reiterated. Follow-up in 6 months. TONY DEY MD documented in this encounter Plan of Treatment Upcoming Encounters Date Type Department Care Team (Late st Contact Info) Description 06/04/2024 1:40 PM ETL TESTER Office Visit [facility] [address], [address] [place] [address] Massiel Meehan NP [address] [facility] [address] [place] [address] Scheduled Orders Name Type Priority Associated Diagnoses Orde r Schedule Albumin/Creatinine Ratio, Random, Urine Lab Routine Stage 3b chronic kidney disease (CMS-HCC) 1 Occurrences starting 05/18/2021 until 11/15/2021 documented as of this encounter Procedures Procedure Name Priority Date/Time Associated Diagnosis Comments CBC (INCLUDES PLATELETS / NO DIFFERENTIAL) Routine 10/20/2021 5:21 AM CDT Stage 3b chronic kidney disease (CMS-HCC) URINALYSIS, COMPLETE, W/ REFLEX TO CULTURE Routine 10/20/2021 5:21 AM CDT Stage 3b chronic kidney disease (CMS-HCC) RENAL FUNCTION PANEL (RFP) Routine 10/20/2021 5:21 AM CDT Stage 3b chronic kidney disease (CMS-HCC) URIC ACID, SERUM Routine 10/20/2021 5:21 AM CDT Stage 3b chronic kidney disease (CMS-HCC) PTH INTACT W/O CALCIUM, SERUM Routine 10/20/2021 5:21 AM CDT Stage 3b chronic kidney disease (CMS-HCC) documented in this encounter Results * (ABNORMAL) CBC (includes Platelets / NO Differential) (10/20/2021 5:21 AM CDT) Leukocytes, Blood 8.3 3.8 - 10.8 Thousand/u L [facility] ([facility]) Erythrocytes (RBC) 3.88(L) 4.20 - 5.80 Million/uL [facility] ([facility]) Hemoglobin (HGB) 11.7(L) 13.2 - 17.1 g/dL [facility] ([facility]) Hematocrit (HCT) 36.5(L) 38.5 - 50.0 % [facility] ([facility]) MCV 94.1 80.0 - 100.0 fL [facility] ([facility]) MCH 30.2 27.0 - 33.0 [address] [facility] ([facility]) MCHC 32.1 32.0 - 36.0 g/dL [facility] ([facility]) Erythrocyte Distribution Width (RDW) 13.2 11.0 - 15.0 % [facility] ([facility]) Platelets, Blood 231 140 - 400 Thousand/u L [facility] ([facility]) Platelet mean volume, Blood 11.4 7.5 - 12.5 fL [facility] ([facility]) Blood 10/20/2021 5:21 AM CDT 10/20/2021 5:22 AM CDT Narrative Resulting Agency Comment Performing Organization Information: ?Site ID: [place] ?Name: [facility] ?Address: [address] [place] [address] [place] [address] ?Director: Taurus Yen D.O., MPH Tony Dey MD LAB BLOOD ORDERABLES [facility] ([facility]) * (ABNORMAL) Renal Function Panel (RFP) (10/20/2021 5:21 AM CDT) Glucose, Serum/Plasma 156(H) 65 - 99 mg/dL [facility] ([facility]) Comment: ? Fasting reference interval For someone without known diabetes, a glucose value >125 mg/dL indicates that they may have diabetes and this should be confirmed with a follow-up test. Urea nitrogen, Serum/Plasma (BUN) 35(H) 7 - 25 mg/dL [facility] ([facility]) Creatinine, Serum/Plasma 1.81(H) 0.70 - 1.28 mg/dL [facility] ([facility]) Estimated Glomerular Filtration Rate (eGFR) 39(L) > OR = 60 mL/min/1.7 3m2 [facility] ([facility]) Comment: The eGFR is based on the CKD-EPI 2020 equation. To calculate the new eGFR from a previous Creatinine or Cystatin C result, go to https://www.kidney.org/professionals/ kdoqi/gfr%5Fcalculator Urea nitrogen/Creati nine, Serum/Plasma 19 6 - 22 (calc) [facility] ([facility]) Sodium, Serum/Plasma 138 135 - 146 mmol/L [facility] ([facility]) Potassium, Serum/Plasma 4.2 3.5 - 5.3 mmol/L [facility] ([facility]) Chloride, Serum/Plasma 100 98 - 110 mmol/L [facility] ([facility]) Carbon dioxide CO2), total, Serum/Plasma 28 20 - 32 mmol/L [facility] ([facility]) Calcium, Serum/Plasma 9.5 8.6 - 10.3 mg/dL [facility] ([facility]) Phosphate, Serum/Plasma 4.0 2.1 - 4.3 mg/dL [facility] ([facility]) Albumin, Serum/Plasma 4.2 3.6 - 5.1 g/dL [facility] ([facility]) Blood 10/20/2021 5:21 AM CDT 10/20/2021 5:22 AM CDT Narrative Resulting Agency Comment Performing Organization Information: ?Site ID: [place] ?Name: [facility] ?Address: [address] [place] [address] ?Director: Taurus Yen D.O., MPH Tony Dey MD LAB BLOOD ORDERABLES [facility] ([facility]) * (ABNORMAL) PTH Intact w/o Calcium, Serum (10/20/2021 5:21 AM CDT) PTH, Intact, Serum/Plasma 114(H) 16 - 77 pg/mL [facility] ([facility]) Comment: Interpretive Guide ?Intact PTH ? Calcium ? ------- Normal Parathyroid ?Normal ? Normal Hypoparathyroidism ?Low or Low Normal ?Low Hyperparathyroidism ?? Primary ?Normal or High ? High ?? Secondary ?High ? Normal or Low ?? Tertiary ? High ? High Non-Parathyroid ?? Hypercalcemia ?Low or Low Normal ?High Blood 10/20/2021 5:21 AM CDT 10/20/2021 5:22 AM CDT Narrative Resulting Agency Comment Performing Organization Information: ?Site ID: [place] ?Name: [facility] ?Address: [address] [facility] [address] ?Director: Taurus Yen D.O., MPH Tony Dey MD LAB BLOOD ORDERABLES Performing Organization Address [facility]/ZIP Co de Phone Number [facility] ([facility]) * (ABNORMAL) Urinalysis, Complete, w/ Reflex to Culture (10/20/2021 5:21 AM CDT) Color of Urine YELLOW YELLOW [facility] ([facility]) Appearance of Urine CLEAR CLEAR [facility] ([facility]) Specific gravity of Urine 1.008 1.001 - 1.[address] [facility] ([facility]) pH of Urine 5.5 5.0 - 8.[address] [facility] ([facility]) Glucose, Urine 1+(A) NEGATIVE [facility] ([facility]) Bilirubin, total, Urine NEGATIVE NEGATIVE [facility] ([facility]) Ketones, Urine NEGATIVE NEGATIVE [facility] ([facility]) Hemoglobin, Urine NEGATIVE NEGATIVE [facility] ([facility]) Protein, Urine NEGATIVE NEGATIVE [facility] ([facility]) Nitrite, Urine NEGATIVE NEGATIVE [facility] ([facility]) Leukocyte esterase, Urine TRACE(A) NEGATIVE [facility] ([facility]) Leukocytes, Urine sediment 10-20(A) < OR = 5 /HPF [facility] [...] Urine sediment NONE SEEN NONE SEEN /LPF [facility] ([facility]) Bacteria identified, Urine [facility]) Comment:CULTURE INDICATED - RESULTS TO FOLLOW Culture, Urine, Routine (A) [facility] ([facility]) Comment: ??CULTURE, URINE, ROUTINE ?Micro Number: ?[id number] ??Test Status: ? Final ??Specimen Source: ?? Urine ??Specimen Quality: ??Adequate ??Result: ?Greater than 100,000 CFU/mL of Enterococcus species ?Enterococcus sp. ?INT ?? DUSTIN ?? AMPICILLIN ? S ? <=2 ?? NITROFURANTOIN ? S ? <=16 ?? VANCOMYCIN ? S ? 1 S=Susceptible ??I=Intermediate ??R=Resistant ??* = Not Tested NR = Not Reported ??NN = See Therapy Comments 10/20/2021 5:21 AM CDT 10/20/2021 5:22 AM CDT Narrative Resulting Agency Comment Performing Organization Information: ?Site ID: [place] ?Name[facility] ?Address: [address] [place] [address] ?Director: Beatriz Dodge Tony Dey MD LAB BLOOD ORDERABLES [facility] [place] ([facility]) * Uric Acid, Serum (10/20/2021 5:21 AM CDT) Urate, Serum/Plasma 7.8 4.0 - 8.0 mg/dL [facility] [place] ([facility]) Comment: Therapeutic target for gout patients: <6.0 mg/dL ?? Blood (Blood, Venous) 10/20/2021 5:21 AM CDT 10/20/2021 5:22 AM CDT Narrative Resulting Agency Comment Performing Organization Information: ?Site ID: [place] ?[facility] ?Address: [address] [place] [address] ?Director: Taurus Yen D.O., MPH Tony Dey MD LAB BLOOD ORDERABLES [facility] ([facility]) documented in this encounter Visit Diagnoses Diagnosis Stage 3b chronic kidney disease (CMS-HCC)- Primary Diabetes mellitus with renal manifestations, type II or unspecified type, uncontrolled (CMS-HCC) Diabetes mellitus with renal manifestations, type II or unspecified type, uncontrolled Essential (primary) hypertension Monoclonal gammopathy documented in this encounter Care Teams Product Mgr Relationship Specialty Start Date End Date Darlene Chirinos MD [address] [address] PCP - General Internal Medicine 10/03/19 documented as of this encounter
--- OUTSIDE RECORDS SUMMARY | 2024-04-15 06:18 | XMS_ITS | Encounter Summary ---
Author Organization [facility] Address [address] [place] [address] Phone Care Team Providers Care Reed Fixer Name Role Phone Erwin Chirinos MD Primary Care Provider [phone] Reason for Visit * Reason Comments CKD Encounter Details Date Type Department Care Team (Latest Contact Info) Description 08/04/2022 10:00 AM CDT Telemedicine [facility] [address], [address] [place] [address] Tony Dey MD [address] [address] Stage 3b chronic kidney disease (CMS-HCC) (Primary Dx); Diabetes mellitus with renal manifestations, type II or unspecified type, uncontrolled (CMS-HCC); Essential (primary) hypertension; Monoclonal gammopathy; Secondary hyperparathyroidism of renal origin (CMS-HCC) Social History Tobacco Use Types Packs/Day [...] - Height 190.5 cm (6' 3 ) 08/04/2022 8:42 AM CDT Body Mass Index - - documented in this encounter Progress Notes * Tony Dey MD - 08/04/2022 10:00 AM CDT Patient: Erwin Isaac Birthdate: 1950 PCP: ERWIN CHIRINOS MD Reason for visit: Visit Date: 08/04/2022 CHIEF COMPLAINT CKD INTERIM HISTORY Erwin Isaac is a 72 y.o. male presenting with a past medical history of diabetes mellitus, hypertension, chronic kidney disease. Current creatinine is 1.71 mg/dL with an estimated GFR of 42 mL/min. Hemoglobin is 11.6, serum albumin of 4.2 g/dL, hemoglobin A1c of 7.2. PTH level is a bit high at 66.It has come down however from a level of 114 from last year. No swelling or shortness of breath. 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 Generally feels well and does not offer any other, points. PAST MEDICAL HISTORY Past Medical History: Diagnosis Date ??? Asthma ??? Chronic kidney disease (CKD) ??? Congestive heart failure (CMS-HCC) ??? Disorder of thyroid ??? Essential (primary) hypertension ??? Heart failure ??? History of colonoscopy ??? Hyperlipidemia ??? Polyneuropathy ??? Type 2 diabetes mellitus without complication PAST SURGICAL HISTORY Past Surgical History: Procedure Laterality Date ??? COLONOSCOPY SOCIAL HISTORY Social History Tobacco Use ??? Smoking status: Never ??? Smokeless tobacco: Never Substance Use Topics ??? Alcohol use: No [...] CR tablet one tab daily 0 ??? Semaglutide (OZEMPIC, 1 MG/DOSE, SC) Inject under the skin per week ??? spironolactone (ALDACTONE) 50 MG tablet one tab daily 0 ??? warfarin (COUMADIN) 5 MG tablet Take 5 mg by mouth 1 (one) time each day No current facility-administered medications for this visit. ALLERGIES No Known Allergies REVIEW OF SYSTEMS Review of Systems VITALS Ht 6' 3 (1.905 m) BMI 39.77 kg/m?? BSA 2.76 m?? PHYSICAL EXAM Physical Exam RECENT LABS Lab Results Component Value Date EGFR 35 (L) 05/10/2021 EGFRAA 41 (L) 05/10/2021 EGFRCR 42 (L) 08/02/2022 CREATININE 1.71 (H) 08/02/2022 CREATININEUR 43 12/17/2020 CREATININEUR 43 12/17/2020 GLUCOSE 267 (H) 08/02/2022 PTH 66 08/02/2022 HCT 35.0 (L) 08/02/2022 BUN 38 (H) 08/02/2022 NA 138 08/02/2022 K 4.2 08/02/2022 CL 102 08/02/2022 CO2 27 08/02/2022 ALBUMIN 4.2 08/02/2022 CA 9.3 08/02/2022 IMAGES DPS CONVERSION - CONSULTATION REPORT NOTE PROCEDURE Ordered by an unspecified provider. DPS CONVERSION - CONSULTATION REPORT NOTE PROCEDURE Ordered by an unspecified provider. ASSESSMENT AND PLAN Assessment/Plan Diagnoses and all orders for this visit: Stage 3b chronic kidney disease [place] Stable renal function. He is on losartan therapy. Can consider Farxiga therapy as needed. Diabetes mellitus with renal manifestations, type II or unspecified type, uncontrolled ([facility]) Goal hemoglobin A1c less than 7 Essential (primary) hypertension Keep blood pressure less than 140/90 CKD needs Monoclonal gammopathy Follow-up with crate liner as needed Secondary Hyperparathyroidism: Vitamin D 25 mcg daily We will look at future labs in 6 months including urine studies.} TONY DEY MD documented in this encounter Plan of Treatment Upcoming Encounters Date Type Department Care Team (Late st Contact Info) Description 06/04/2024 1:40 PM CYLINDER FILLER Office Visit [facility] [address], [address] [place] [address] Massiel Meehan, ADRIANO [address] [address] Scheduled Orders Name Type Priority Associated Diagnoses Orde r Schedule Albumin/Creatinine Ratio, Random, Urine Lab Routine Stage 3b chronic kidney disease ([facility]) Expected: 02/04/2023, Expires: 02/04/2023 documented as of this encounter Procedures Procedure Name Priority Date/Time Associated Diagnosis Comments CBC (INCLUDES PLATELETS / NO DIFFERENTIAL) Routine 01/24/2023 7:22 AM CDT Stage 3b chronic kidney disease ([facility]) URINALYSIS, COMPLETE, W/ REFLEX TO CULTURE Routine 01/24/2023 7:22 AM CDT Stage 3b chronic kidney disease ([facility]) RENAL FUNCTION PANEL (RFP) Routine 01/24/2023 7:22 AM CDT Stage 3b chronic kidney disease ([facility]) PTH INTACT W/O CALCIUM, SERUM Routine 01/24/2023 7:22 AM CDT Stage 3b chronic kidney disease ([facility]) documented in this encounter Results * (ABNORMAL) CBC (includes Platelets / NO Differential) (01/24/2023 7:22 AM CDT) Leukocytes, Blood 5.7 3.8 - 10.8 Thousand/u L [facility] ([facility]) Erythrocytes (RBC) 3.70(L) 4.20 - 5.80 Million/uL [facility] ([facility]) Hemoglobin (HGB) 11.6(L) 13.2 - 17.1 g/dL [facility] ([facility]) Hematocrit (HCT) 34.5(L) 38.5 - 50.0 % [facility] ([facility]) MCV 93.2 80.0 - 100.[address] [facility] ([facility]) MCH 31.4 27.0 - 33.0 pg [facility] [place] ([facility]) MCHC 33.6 32.0 - 36.0 g/dL [facility] ([facility]) Erythrocyte Distribution Width (RDW) 12.4 11.0 - 15.0 % [facility] ([facility]) Platelets, Blood 203 140 - 400 Thousand/u L [facility] [place] ([facility]) Platelet mean volume, Blood 11.5 7.5 - 12.5 fL [facility] [place] ([facility]) Blood 01/24/2023 7:22 AM CDT 01/24/2023 7:23 AM CDT Narrative Resulting Agency Comment Performing Organization Information: ?Site ID: [place] ?Name: [facility] ?Address: [address] [place] [address] [place] [address] ?Director: Beatriz Dodge MD Tony Dey MD LAB BLOOD ORDERABLES [facility] [place] ([facility]) * (ABNORMAL) Renal Function Panel (RFP) (01/24/2023 7:22 AM CDT) Glucose, Serum/Plasma 184(H) 65 - 99 mg/dL [facility] [place] ([facility]) Comment: ? Fasting reference interval For someone without known diabetes, a glucose value >125 mg/dL indicates that they may have diabetes and this should be confirmed with a follow-up test. Urea nitrogen, Serum/Plasma (BUN) 27(H) 7 - 25 mg/dL [facility] [place] ([facility]) Creatinine, Serum/Plasma 1.85(H) 0.70 - 1.28 mg/dL [facility] [place] ([facility]) Estimated Glomerular Filtration Rate (eGFR) 38(L) > OR = 60 mL/min/1.7 3m[address] [facility] [place] ([facility]) Urea nitrogen/Creati nine, Serum/Plasma 15 6 - 22 (calc) [facility] [place] ([facility]) Sodium, Serum/Plasma 139 135 - 146 mmol/L [facility]) Potassium, Serum/Plasma 4.0 3.5 - 5.3 mmol/L [facility] ([facility]) Chloride, Serum/Plasma 103 98 - 110 mmol/L [facility] [place] ([facility]) Carbon dioxide CO2), total, Serum/Plasma 27 20 - 32 mmol/L [facility] ([facility]) Calcium, Serum/Plasma 9.1 8.6 - 10.3 mg/dL [facility]) Phosphate, Serum/Plasma 2.1 2.1 - 4.3 mg/dL [facility]) Albumin, Serum/Plasma 4.1 3.6 - 5.1 g/dL [facility] [place] ([facility]) Blood 01/24/2023 7:22 AM CDT 01/24/2023 7:23 AM CDT Narrative Resulting Agency Comment Performing Organization Information: ?Site ID: [place] ?Name: [facility] ?Address: [address] [place] [address] ?Director: Beatriz Dodge MD Tony Dey MD LAB BLOOD ORDERABLES [facility] ([facility]) * PTH Intact w/o Calcium, Serum (01/24/2023 7:22 AM CDT) PTH, Intact, Serum/Plasma 53 16 - 77 pg/mL [facility] [place] ([facility]) Comment: Interpretive Guide ?Intact PTH ? Calcium ? ------- Normal Parathyroid ?Normal ? Normal Hypoparathyroidism ?Low or Low Normal ?Low Hyperparathyroidism ?? Primary ?Normal or High ? High ?? Secondary ?High ? Normal or Low ?? Tertiary ? High ? High Non-Parathyroid ?? Hypercalcemia ?Low or Low Normal ?High Blood 01/24/2023 7:22 AM CDT 01/24/2023 7:23 AM CDT Narrative Resulting Agency Comment Performing Organization Information: ?Site ID: [place] ?Name: [facility] ?Address: [address] [facility] [place] [address] ?Director: Beatriz Dodge MD Tony Dey MD LAB BLOOD ORDERABLES [facility] [place] ([facility]) * (ABNORMAL) Urinalysis, Complete, w/ Reflex to Culture (01/24/2023 7:22 AM CDT) Color of Urine YELLOW YELLOW [facility] ([facility]) Appearance of Urine CLEAR CLEAR [facility] [place] ([facility]) Specific gravity of Urine 1.011 1.001 - 1.[address] [facility] ([facility]) pH of Urine < OR = 5.0 5.0 - 8.[address] [facility] ([facility]) Glucose, Urine TRACE(A) NEGATIVE [facility] [place] ([facility]) Leukocyte esterase, Urine 1+(A) NEGATIVE [facility] [place] ([facility]) Leukocytes, Urine sediment 6-10(A) < OR = 5 /HPF [facility] [...] casts, Urine sediment 0-5(A) NONE SEEN /LPF [facility] [place] ([facility]) Service comment [facility] ([facility]) Comment: This urine was analyzed for the presence of WBC, RBC, bacteria, casts, and other formed elements. Only those elements seen were reported. Bacteria identified, Urine [facility]) Comment:CULTURE INDICATED - RESULTS TO FOLLOW Culture, Urine, Routine (A) [facility] [place] ([facility]) Comment: ??CULTURE, URINE, ROUTINE ?Micro Number: ?[id number] ??Test Status: ? Final ??Specimen Source: ?? Urine ??Specimen Quality: ??Adequate ??Result: ?Greater than 100,000 CFU/mL of Enterococcus species ? Non-viable for susceptibility testing. 01/24/2023 7:22 AM CDT 01/24/2023 7:23 AM CDT Narrative Resulting Agency Comment Performing Organization Information: ?Site ID: ?Name[facility] ?Address: [facility] [address] [place] [address] ?Director: Beatriz Dodge Tony Dey MD LAB BLOOD ORDERABLES [facility]) documented in this encounter Visit Diagnoses Diagnosis Stage 3b chronic kidney disease ([facility])- Primary Diabetes mellitus with renal manifestations, type II or unspecified type, uncontrolled (CMS-HCC) Diabetes mellitus with renal manifestations, type II or unspecified type, uncontrolled Essential (primary) hypertension Monoclonal gammopathy Secondary hyperparathyroidism of renal origin (CMS-HCC) Secondary hyperparathyroidism of renal origin documented in this encounter Care Teams Reed Fixer Relationship Specialty Start Date End Date Erwin Chirinos MD [address] [place] [phone] PCP - General Internal Medicine 10/03/19 documented as of this encounter
--- OUTSIDE RECORDS SUMMARY | 2024-04-15 06:18 | XMS_ITS | Encounter Summary ---
Author Organization [facility] Address [address] [place] [address] Phone Care Team Providers Care Draw Frame Tender Name Role Phone Erwin Gardner MD Primary Care Provider [phone] Encounter Details Date Type Department Care Team (Late st Contact Info) Description 01/26/2022 Orders Only [facility] 5[address] [facility] 1 [place] [address] Kev Dey MD [address] [phone] Social History Tobacco Use Types Packs/Day Years [...] st Contact Info) Description 06/04/2024 1:40 PM PRODUCT TRAINER Office Visit [facility] [address] [facility] [address] [place] [address] Massiel Meehan NP 5003 [facility] 1 [place] [address] documented as of this encounter Procedures Procedure Name Priority Date/Time Associated Diagnosis Comments URINALYSIS, COMPLETE, W/ REFLEX TO CULTURE Routine 01/26/2022 5:31 AM CDT CBC (INCLUDES DIFFERENTIAL/PLATEL ETS) Routine 01/26/2022 5:31 AM CDT RENAL FUNCTION PANEL (RFP) Routine 01/26/2022 5:31 AM CDT URIC ACID, SERUM Routine 01/26/2022 5:31 AM CDT PTH INTACT AND CALCIUM, SERUM Routine 01/26/2022 5:31 AM CDT documented in this encounter Results * (ABNORMAL) Renal Function Panel (RFP) (01/26/2022 5:31 AM CDT) Glucose, Serum/Plasma 87 65 - 99 mg/dL [facility] ([facility]) Comment: ? Fasting reference interval Urea nitrogen, Serum/Plasma (BUN) 47(H) 7 - 25 mg/dL [facility] ([facility]) Creatinine, Serum/Plasma 1.93(H) 0.70 - 1.28 mg/dL [facility] ([facility]) Estimated Glomerular Filtration Rate (eGFR) 37(L) > OR = 60 mL/min/1.[address] [facility] ([facility]) Comment: The eGFR is based on the CKD-EPI 2020 equation. To calculate the new eGFR from a previous Creatinine or Cystatin C result, go to https://www.kidney.org/professionals/ kdoqi/gfr%5Fcalculator Urea nitrogen/Creati nine, Serum/Plasma 24(H) 6 - 22 (calc) [facility] ([facility]) Sodium, Serum/Plasma 137 135 - 146 mmol/L [facility] ([facility]) Potassium, Serum/Plasma 4.1 3.5 - 5.3 mmol/L [facility] ([facility]) Chloride, Serum/Plasma 100 98 - 110 mmol/L [facility] ([facility]) Carbon dioxide CO2), total, Serum/Plasma 27 20 - 32 mmol/L [facility] ([facility]) Calcium, Serum/Plasma 9.2 8.6 - 10.3 mg/dL [facility] ([facility]) Phosphate, Serum/Plasma 3.4 2.1 - 4.3 mg/dL [facility] ([facility]) Albumin, Serum/Plasma 4.2 3.6 - 5.1 g/dL [facility] ([facility]) 01/26/2022 5:31 AM CDT 01/26/2022 5:33 AM CDT Narrative [facility] ([facility]) - 01/28/2022 10:26 AM CDT FASTING:YES FASTING: YES Resulting Agency Comment Performing Organization Information: ?Site ID: [place] ?Name: [facility] ?Address: [facility] [place] [address] ?Director: Taurus Yen D.O., MPH Kev Dey MD LAB BLOOD ORDERABLES Performing Organization Address City/[facility] Co de Phone Number [facility] ([facility]) * Uric Acid, Serum (01/26/2022 5:31 AM CDT) Urate, Serum/Plasma 7.9 4.0 - 8.0 mg/dL [facility] ([facility]) Comment: Therapeutic target for gout patients: <6.0 mg/dL ?? 01/26/2022 5:31 AM CDT 01/26/2022 5:33 AM CDT Narrative [facility] ([facility]) - 01/28/2022 10:26 AM CDT FASTING:YES FASTING: YES Resulting Agency Comment Performing Organization Information: ?Site ID: [place] ?Name: [facility] ?Address: [facility] [place] [address] ?Director: Taurus Yen D.O., MPH Kev Dey MD LAB BLOOD ORDERABLES Performing Organization Address City/[facility]/ZIP Co de Phone Number [facility] ([facility]) * (ABNORMAL) PTH Intact and Calcium, Serum (01/26/2022 5:31 AM CDT) PTH, Intact, Serum/Plasma 91(H) 16 - 77 pg/mL [facility] [employer] [facility] ([facility]) Comment: Interpretive Guide ?Intact PTH ? Calcium ? ------- Normal Parathyroid ?Normal ? Normal Hypoparathyroidism ?Low or Low Normal ?Low Hyperparathyroidism ?? Primary ?Normal or High ? High ?? Secondary ?High ? Normal or Low ?? Tertiary ? High ? High Non-Parathyroid ?? Hypercalcemia ?Low or Low Normal ?High Calcium, Serum/Plasma 9.2 8.6 - 10.3 mg/dL [facility] ([facility]) 01/26/2022 5:31 AM CDT 01/26/2022 5:33 AM CDT Narrative [facility] ([facility]) - 01/28/2022 10:26 AM CDT FASTING:YES FASTING: YES Resulting Agency Comment Performing Organization Information: ?Site ID: [place] ?Name: [facility] ?Address: [address] [address] ?Director: Taurus Yen D.O., MPH Kev Dey MD LAB BLOOD ORDERABLES [facility] ([facility]) * (ABNORMAL) CBC (includes Differential/Platelets) (01/26/2022 5:31 AM CDT) [facility] Leukocytes, Blood 7.1 3.8 - 10.8 Thousand/u L [facility] ([facility]) Erythrocytes (RBC) 3.77(L) 4.20 - 5.80 Million/uL [facility] ([facility]) Hemoglobin (HGB) 11.4(L) 13.2 - 17.1 g/dL [facility] ([facility]) Hematocrit (HCT) 34.9(L) 38.5 - 50.0 % [facility] ([facility]) MCV 92.6 80.0 - 100.0 fL [facility] ([facility]) MCH 30.2 27.0 - 33.0 pg [facility] ([facility]) MCHC 32.7 32.0 - 36.0 g/dL [facility] ([facility]) Erythrocyte Distribution Width (RDW) 13.0 11.0 - 15.0 % [facility] ([facility]) Platelets, Blood 200 140 - 400 Thousand/u L [facility] ([facility]) Platelet mean volume, Blood 11.6 7.5 - 12.5 fL [facility] ([facility]) Neutrophils, Blood 4,473 1,500 - 7,800 cells/uL [facility] ([facility]) Lymphocytes, Blood 1,690 850 - 3,900 cells/uL [facility] ([facility]) Monocytes, Blood 689 200 - 950 cells/uL [facility] ([facility]) Eosinophils, Blood 192 15 - 500 cells/uL [facility] ([facility]) Basophils, Blood 57 0 - 200 cells/uL [facility] ([facility]) Neutrophils/100 leukocytes, Blood 63 % [facility] ([facility]) Lymphocytes/100 leukocytes, Blood 23.8 % [facility] ([facility]) Monocytes/100 leukocytes, Blood 9.7 % [facility] ([facility]) Eosinophils/100 leukocytes, Blood 2.7 % [facility]) Basophils/100 leukocytes, Blood 0.8 % [facility] ([facility]) 01/26/2022 5:31 AM CDT 01/26/2022 5:33 AM CDT Narrative [facility] ([facility]) - 01/28/2022 10:26 AM CDT FASTING:YES FASTING: YES Resulting Agency Comment Performing Organization Information: ?Site ID: [place] ?Name: [facility] ?Address: [address] [place] [address] ?Director: Taurus Yen D.O., MPH Kev Dey MD LAB BLOOD ORDERABLES [facility] ([facility]) * (ABNORMAL) Urinalysis, Complete, w/ Reflex to Culture (01/26/2022 5:31 AM CDT) Color of Urine YELLOW YELLOW [facility] ([facility]) Appearance of Urine CLEAR CLEAR [facility] ([facility]) Specific gravity of Urine 1.009 1.001 - 1.035 [facility] ([facility]) pH of Urine 6.0 5.0 - 8.0 [facility] [...] [facility] ([facility]) Leukocyte esterase, Urine 2+(A) NEGATIVE [facility] [...] (ST[facility]) Comment: ??CULTURE, URINE, ROUTINE ?Micro Number: ?[id number] ??Test Status: ? Final ??Specimen Source: ?? Urine ??Specimen Quality: ??Adequate ??Result: ?Greater than 100,000 CFU/mL of Enterococcus species ??COMMENT: ? Additional non-predominating organism(s) isolated. ? These organisms, commonly found on external and ? internal genitalia, are considered colonizers. No ? further testing performed. ?Enterococcus sp. ?INT ?? DUSTIN ?? AMPICILLIN ? S ? <=2 ?? NITROFURANTOIN ? S ? <=16 ?? VANCOMYCIN ? S ? 1 S=Susceptible ??I=Intermediate ??R=Resistant ??* = Not Tested NR = Not Reported ??NN = See Therapy Comments 01/26/2022 5:31 AM CDT 01/26/2022 5:33 AM CDT Narrative [facility] ([facility]) - 01/28/2022 10:26 AM CDT FASTING:YES FASTING: YES Resulting Agency Comment Performing Organization Information: ?Site ID: [place] ?Name: [facility] ?Address: [facility] [place] [address] ?Director: Beatriz Dodge Kev Dey MD LAB BLOOD ORDERABLES [facility] ([facility]) documented in this encounter Visit Diagnoses Not on filedocumented in this encounter Care Teams Draw Frame Tender Relationship Specialty Start Date End Date Erwin Gardner MD [address] [place] [address] PCP - General Internal Medicine 10/03/19 documented as of this encounter
--- OUTSIDE RECORDS SUMMARY | 2024-04-15 06:18 | XMS_ITS | Encounter Summary ---
Author Organization [facility] Address [address] [place] [address] Phone Care Team Providers Care Core Composer Machine Tender Name Role Phone Erwin Chirinos MD Primary Care Provider [phone] Reason for Visit * Reason Comments CKD Encounter Details Date Type Department Care Team (Late st Contact Info) Description 09/03/2020 1:20 PM CDT Office Visit [facility] [address], [address] [place] [address] Tony Dey MD [address] [address] Stage 3b chronic kidney disease (CMS-HCC) (Primary Dx); Monoclonal gammopathy; Essential (primary) hypertension; Type 2 diabetes mellitus [...] Sign Reading Time Taken Comments Blood Pressure 126/78 09/03/2020 1:30 PM CDT Pulse 81 09/03/2020 1:30 PM CDT Temperature - - Respiratory Rate - - Oxygen Saturation - - Inhaled Oxygen Concentration - - Weight 141 kg (311 lb) 09/03/2020 1:30 PM CDT Height 190.5 cm (6' 3 ) 09/03/2020 1:30 PM CDT Body Mass Index 38.87 09/03/2020 1:30 PM CDT documented in this encounter Progress Notes * Tony Dey MD - 09/03/2020 1:20 PM CDT Patient: Erwin Isaac Birthdate: 1950 PCP: ERWIN CHIRINOS MD Reason for visit: Visit Date: 09/03/2020 CHIEF COMPLAINT CKD INTERIM HISTORY Erwin Isaac is a 70 y.o. male presenting with a past medical history of diabetes mellitus, hypertension, obesity, monoclonal gammopathy. He has been released by his counter clerk [employer] equipment [employer] but we have been asked to keep an eye on him. On March labs continues to have monoclonal IgG lambda protein. Creatinine however has remained stable over the course of time. He has underlying history of diabetes mellitus with microalbuminuria been negligible. Some swelling. Lost his in 2018. No complaints otherwise voiced. Negative other systemic issues PAST MEDICAL HISTORY Past Medical History: Diagnosis [...] tab daily 0 ??? insulin NPH, Isophane, (NOVOLIN N) 100 UNIT/ML injection 10 in the morning 50 units in the PM (Patient taking differently: Inject 60 Units under the skin 2 (two) times a day ) 0 ??? insulin regular (NOVOLIN R) 100 UNIT/ML injection 40 units before each meal (Patient taking differently: Inject 60 Units as directed 3 (three) times a day before meals ) 0 ??? losartan (COZAAR) 50 MG tablet one [...] REVIEW OF SYSTEMS Review of Systems VITALS BP 126/78 (BP Location: Right arm, Patient Position: Sitting, BP Cuff Size: Adult) Pulse 81 Ht 6' 3 (1.905 m) Wt (!) 311 lb (141 kg) BMI 38.87 kg/m?? BSA 2.73 m?? PHYSICAL EXAM Physical Exam Well-developed well-nourished, obese, comfortable with breathing at rest, JVD is seen, regular raterhythm no gallop no rub equal breath sounds no rales obese abdomen edema legs scaly lesions on legsalert oriented x3 no tremor RECENT LABS Lab Results Component Value Date EGFR 31 (L) 03/30/2020 CREATININE 2.10 (H) 03/30/2020 CREATININEUR 68 01/02/2019 GLUCOSE 192 (H) 03/30/2020 PTH 43 03/30/2020 HCT 36.6 (L) 03/30/2020 BUN 44 (H) 03/30/2020 NA 141 03/30/2020 K 4.3 03/30/2020 CL 98 03/30/2020 CO2 28 03/30/2020 ALBUMIN 4.2 03/30/2020 ALBUMIN 4.2 03/30/2020 CA 8.8 03/30/2020 IMAGES DPS CONVERSION - CONSULTATION REPORT NOTE PROCEDURE Ordered by an unspecified provider. DPS CONVERSION - CONSULTATION REPORT NOTE PROCEDURE Ordered by an unspecified provider. ASSESSMENT AND PLAN Assessment/Plan Diagnoses and all orders for this visit: Stage 3b chronic kidney disease ([facility]) - Uric Acid, Serum; Future - Urinalysis, Complete, w/ Reflex to Culture; Future - PTH Intact w/o Calcium, Serum; Future - Renal Function Panel (RFP); Future - CBC (includes Platelets / NO Differential); Future - Albumin/Creatinine Ratio, Random, Urine; Future Monoclonal gammopathy - Protein Electrophoresis with Immunofixation, Serum; Future - IMMUNOFIXATION + PROTEIN ELECTROPHORESIS, URINE; Future Essential (primary) hypertension Type 2 diabetes mellitus with complication, not otherwise specified ([facility]-HCC) Patient is on warfarin therapy. If renal biopsy was needed we would need to see the appropriateness of discontinuing the warfarin for the renal biopsy. Will be able to continue or after week after renal biopsy if there are no complications. He has monoclonal gammopathy. We will get a urine for immunofixation. If presence of light chains will need to think about getting a renal biopsy. Complications are hemorrhage need for blood transfusion. Maintain current treatment regimen. Will reevaluate labs and urine tests in a few months. Hopefullythings are quiet and then resolve on their own. Doing a biopsy will be complicated with the need for ongoing warfarin use. Renal function is maintaining stability. Continue to follow closely. Discussed plans with the patient and he expressed understanding TONY DEY MD documented in this encounter Plan of Treatment Upcoming Encounters Date Type Department Care Team (Late st Contact Info) Description 06/04/2024 1:40 PM CLOTHING PATTERNMAKER Office Visit [facility] [address], [address] [place], [place] [id number] Massiel Meehan, ADRIANO [address] [id number] Scheduled Orders Name Type Priority Associated Diagnoses Orde r Schedule Protein Electrophoresis with Immunofixation, Serum Lab Routine Monoclonal gammopathy 1 Occurrences starting 09/03/2020 until 09/03/2021 IMMUNOFIXATION + PROTEIN ELECTROPHORESIS, URINE Lab Routine Monoclonal gammopathy 1 Occurrences starting 09/03/2020 until 09/03/2021 Uric Acid, Serum Lab Routine Stage 3b Chronic Kidney Disease ([facility]-Hcc) Expected: 03/05/2021, Expires: 09/03/2021 Urinalysis, Complete, w/ Reflex to Culture Lab Routine Stage 3b Chronic Kidney Disease ([facility]) 1 Occurrences starting 09/03/2020 until 03/05/2021 PTH Intact w/o Calcium, Serum Lab Routine Stage 3b Chronic Kidney Disease ([facility]) Expected: 03/05/2021, Expires: 03/05/2021 Renal Function Panel (RFP) Lab Routine Stage 3b Chronic Kidney Disease ([facility]) Expected: 03/05/2021, Expires: 09/03/2021 CBC (includes Platelets / NO Differential) Lab Routine Stage 3b chronic kidney disease ([facility]) Expected: 03/05/2021, Expires: 03/05/2021 Albumin/Creatinine Ratio, Random, Urine Lab Routine Stage 3b chronic kidney disease ([facility]) 1 Occurrences starting 09/03/2020 until 03/05/2021 documented as of this encounter Visit Diagnoses Diagnosis Stage 3b chronic kidney disease ([facility] Primary Monoclonal gammopathy Essential (primary) hypertension Type 2 diabetes mellitus with complication, not otherwise specified ([facility]) documented in this encounter Care Teams Core Composer Machine Tender Relationship Specialty Start Date End Date Erwin Chirinos MD [address] [place] [phone] PCP - General Internal Medicine 10/03/19 documented as of this encounter
--- OUTSIDE RECORDS SUMMARY | 2024-04-15 06:18 | XMS_ITS | Encounter Summary ---
Author Organization [facility] Address [address] [place] [address] Phone Care Team Providers Care Legal Instruments Examiner Name Role Phone Erwin Gardner MD Primary Care Provider Encounter Details Date Type Department Care Team (Late st Contact Info) Description 01/24/2024 Orders Only [facility] [address] [facility] 1 [place] [address] Kev Dey MD [address] [address] Social History Tobacco Use Types [...] st Contact Info) Description 06/04/2024 1:40 PM EMERGENCY MANAGEMENT CONSULTANT Office Visit [facility] [address] [facility] [address] [place] [address] Massiel Meehan NP [address] [address] documented as of this encounter Procedures Procedure Name Priority Date/Time Associated Diagnosis Comments MICROALBUMIN, RANDOM URINE WITH CREATININE Routine 01/24/2024 9:52 AM CDT URINALYSIS, COMPLETE Routine 01/24/2024 9:52 AM CDT documented in this encounter Results * Albumin, Random Urine with Creatinine (01/24/2024 9:52 AM CDT) Creatinine, Urine 106 20 - 320 mg/dL [facility] ([facility]) Microalbumin, [...] AM CDT 01/24/2024 8:02 PM CDT Narrative [facility] ([facility]) - 01/25/2024 5:38 AM CDT SPLIT 01/24/2024 FROM [id number] Resulting Agency Comment Performing Organization Information: ?Site ID: [place] ?Name: [facility] ?Address: [address] [place], [place] [address] [address] ?Director: Beatriz Dodge MD Kev Dey MD LAB URINE ORDERABLES [facility] ([facility]) * (ABNORMAL) Urinalysis, Complete (01/24/2024 9:52 AM CDT) Color of Urine YELLOW YELLOW [facility] ([facility]) Appearance of Urine CLEAR CLEAR [facility] ([facility]) Specific [...] 01/25/2024 5:38 AM CDT SPLIT 01/24/2024 FROM [id number] Resulting Agency Comment Performing Organization Information: ?Site ID: [place] ?Name: [facility] ?Address: [address] [place] [address] ?Director: Beatriz Dodge MD Kev Dey MD LAB URINE ORDERABLES [facility] ([facility]) documented in this encounter Visit Diagnoses Not on filedocumented in this encounter Care Teams Legal Instruments Examiner Relationship Specialty Start Date End Date Erwin Gardner MD [address] [place] [phone] PCP - General Internal Medicine 10/03/19 documented as of this encounter
--- OUTSIDE RECORDS SUMMARY | 2024-04-15 06:18 | XMS_ITS | Encounter Summary ---
Author Organization [facility] Address [address] [place] [phone] Phone Care Team Providers Care Echo Technologist Name Role Phone Unavailable Primary Care Provider Unavailabl e Reason for Visit * Reason Comments CKD Encounter Details Date Type Department Care Team ([facility] st Contact Info) Description 01/15/2019 12:40 PM CDT Office Visit [facility] [address], [address] [place] [address] Kev Dey MD [address] [address] Chronic kidney disease, stage 3 (moderate) (CMS-HCC) (Primary Dx); Monoclonal gammopathy; Essential (primary) hypertension; Diabetes mellitus, not otherwise specified (CMS-HCC) Social History Tobacco [...] Sign Reading Time Taken Comments Blood Pressure 116/62 01/15/2019 12:52 PM CDT Pulse 88 01/15/2019 12:52 PM CDT Temperature - - Respiratory Rate - - Oxygen Saturation - - Inhaled Oxygen Concentration - - Weight 136 kg (300 lb) 01/15/2019 12:52 PM CDT Height 190.5 cm (6' 3 ) 01/15/2019 12:52 PM CDT Body Mass Index 37.5 01/15/2019 12:52 PM CDT documented in this encounter Progress Notes * Kev Dey MD - 01/15/2019 12:40 PM CDT See dictated note documented in this encounter Plan of Treatment Upcoming Encounters Date Type Department Care Team (Late st Contact Info) Description 06/04/2024 1:40 PM BUILDING ARCHITECTURAL DESIGNER Office Visit [facility] [address], [address] [place] [address] Massiel Meehan, PARKING RAMP ATTENDANT [address] [facility] [address] [place] [address] Pending Results Name Type Priority Associated Diagnoses Date /Time Microalbumin/Creatinine Rati o, Timed Urine Lab Routine 01/02/2019 Renal Function Panel (RFP) Lab Routine 01/02/2019 CBC (includes Differential/Platelets) Lab Routine 01/02/2019 Urinalysis, Routine Lab Routine 01/02 documented as of this encounter Procedures Procedure Name Priority Date/Time Associated Diagnosis Comments CBC (INCLUDES DIFFERENTIAL/PLATEL ETS) Routine 07/10/2019 6:42 AM CDT Chronic kidney disease, stage 3 (moderate) (CMS-HCC) RENAL FUNCTION PANEL (RFP) Routine 07/10/2019 6:42 AM CDT Chronic kidney disease, stage 3 (moderate) (CMS-HCC) PTH INTACT W/O CALCIUM, SERUM Routine 07/10/2019 6:42 AM CDT Chronic kidney disease, stage 3 (moderate) (CMS-HCC) documented in this encounter Results * (ABNORMAL) Renal Function Panel (07/10/2019 6:42 AM CDT) Glucose, Serum/Plasma 81 65 - 99 mg/dL [facility] ([facility]) Comment: ? Fasting reference interval Urea nitrogen, Serum/Plasma (BUN) 39(H) 7 - 25 mg/dL [facility] ([facility]) Creatinine, Serum/Plasma 1.79(H) 0.70 - 1.25 mg/dL [facility] ([facility]) Comment: For patients >49 years of age, the reference limit for Creatinine is approximately 13% higher for people identified as -J[place]ican. eGFR, non 38(L) > OR = 60 mL/min/1. 73m2 [facility] ([facility]) eGFR, 44(L) > OR = 60 mL/min/1. 73m2 [facility] ([facility]) Urea nitrogen/Creatinin e, Serum/Plasma 22 6 - 22 (calc) [facility] ([facility]) Sodium, Serum/Plasma 138 135 - 146 mmol/L [facility]) Potassium, Serum/Plasma 4.2 3.5 - 5.3 mmol/L [facility]) Chloride, Serum/Plasma 100 98 - 110 mmol/L [facility] ([facility]) Carbon dioxide CO2), total, Serum/Plasma 35(H) 20 - 32 mmol/L [facility] ([facility]) Calcium, Serum/Plasma 9.1 8.6 - 10.3 mg/dL [facility] ([facility]) Phosphate, Serum/Plasma 4.4(H) 2.1 - 4.3 mg/dL [facility] ([facility]) Albumin, Serum/Plasma 4.0 3.6 - 5.1 g/dL [facility]) Blood (Blood, Venous) 07/10/2019 6:42 AM CDT 07/10/2019 6:43 AM CDT Narrative [facility] - 07/11/2019 2:47 PM CDT FASTING:YES FASTING: YES Resulting Agency Comment Performing Organization Information: ?Site ID: [place] ?Name: [facility] ?Address: [address] [place] [address] ?Director: Taurus Yen D.O., MPH Kev Dey MD LAB BLOOD ORDERABLES [facility] ([facility]) * PTH Intact w/o Calcium (07/10/2019 6:42 AM CDT) Pathologist [facility] PTH, Intact, Serum/Plasma 58 14 - 64 pg/mL [facility] ([facility]) Comment: Interpretive Guide ?Intact PTH ? Calcium ? ------- Normal Parathyroid ?Normal ? Normal Hypoparathyroidism ?Low or Low Normal ?Low Hyperparathyroidism ?? Primary ?Normal or High ? High ?? Secondary ?High ? Normal or Low ?? Tertiary ? High ? High Non-Parathyroid ?? Hypercalcemia ?Low or Low Normal ?High Blood (Blood, Venous) 07/10/2019 6:42 AM CDT 07/10/2019 6:43 AM CDT Narrative [facility] ([facility]) - 07/11/2019 2:47 PM CDT FASTING:YES FASTING: YES Resulting Agency Comment Performing Organization Information: ?Site ID: [place] ?Name: [facility] ?Address: [address] [facility] [place] [address] ?Director: Taurus Yen D.O., MPH Kev Dey MD LAB BLOOD ORDERABLES [facility] ([facility]) * (ABNORMAL) CBC (Includes Diff/PLT) (07/10/2019 6:42 AM CDT) [facility] Leukocytes, Blood 7.2 3.8 - 10.8 Thousand/ uL [facility] (L) Erythrocytes (RBC) 4.07(L) 4.20 - 5.80 Million/u L [facility] ([facility]) Hemoglobin (HGB) 12.1(L) 13.2 - 17.1 g/dL [facility] ([facility]) Hematocrit (HCT) 37.0(L) 38.5 - 50.0 % [facility] (L) MCV 90.9 80.0 - 100.0 fL [facility] (L) MCH 29.7 27.0 - 33.0 pg [facility] (L) MCHC 32.7 32.0 - 36.0 g/dL [facility] ([facility]) Erythrocyte Distribution Width (RDW) 13.4 11.0 - 15.0 % [facility] ([facility]) Platelets, Blood 235 140 - 400 Thousand/ uL [facility] (L) Platelet mean volume, Blood 11.0 7.5 - 12.5 fL [facility] (L) Neutrophils, Blood 4,140 1,500 - 7,800 cells/uL [facility] (L) Band form neutrophils, Blood CANCELED 0 - 750 cells/uL [facility] ([facility]) Comment:Result canceled by t he ancillary. Metamyelocytes, Blood CANCELED 0 cells/uL [facility] (L) Comment:Result canceled by t he ancillary. Myelocytes, Blood CANCELED 0 cells/uL [facility] ([facility]) Comment:Result canceled by t he ancillary. Promyelocytes, Blood CANCELED 0 cells/uL [facility] (L) Comment:Result canceled by t he ancillary. Lymphocytes, Blood 2,131 850 - 3,900 cells/uL [facility] (L) Monocytes, Blood 648 200 - 950 cells/uL [facility] ([facility]) Eosinophils, Blood 230 15 - 500 cells/uL [facility]) Basophils, Blood 50 0 - 200 cells/uL [facility]) Blasts, Blood CANCELED 0 cells/uL [facility]) Comment:Result canceled by t he ancillary. Nucleated erythrocytes, Blood CANCELED 0 cells/uL [facility]) Comment:Result canceled by t he ancillary. Neutrophils/100 leukocytes, Blood 57.5 % [facility]) Band form neutrophils/100 leukocytes, Blood CANCELED % [facility]) Comment:Result canceled by t he ancillary. Metamyelocytes/10 0 leukocytes, Blood CANCELED % [facility]) Comment:Result canceled by t he ancillary. Myelocytes/100 leukocytes, Blood CANCELED % [facility]) Comment:Result canceled by t he ancillary. Promyelocytes/100 leukocytes, Blood CANCELED % [facility] Comment:Result canceled by t he ancillary. Lymphocytes/100 leukocytes, Blood 29.6 % [facility]) Variant lymphocytes/100 leukocytes, Blood CANCELED 0 - 10 % [facility] Comment:Result canceled by t he ancillary. Monocytes/100 leukocytes, Blood 9.0 % [facility]) Eosinophils/100 leukocytes, Blood 3.2 % [facility]) Basophils/100 leukocytes, Blood 0.7 % [facility]) Blasts/100 leukocytes, Blood CANCELED % [facility] Comment:Result canceled by t he ancillary. Nucleated erythrocytes/100 leukocytes, Blood CANCELED 0 /[address] [facility]) Comment:Result canceled by t he ancillary. Service comment [facility] Comment:Result canceled by mandi esquivel. Blood (Blood, Venous) 07/10/2019 6:42 AM CDT 07/10/2019 6:43 AM CDT Narrative [facility] ([facility]) - 07/11/2019 2:47 PM CDT FASTING:YES FASTING: YES Resulting Agency Comment Performing Organization Information: ?Site ID: [place] ?Name: [facility] ?Address: [address] [place] [address] ?Director: Taurus Yen D.O., MPH Kev Dey MD LAB BLOOD ORDERABLES [facility]) documented in this encounter Visit Diagnoses Diagnosis Chronic kidney disease, stage 3 (moderate)- Primary Monoclonal gammopathy Essential (primary) hypertension Diabetes mellitus, not otherwise specified (CMS-HCC) documented in this encounter
--- OUTSIDE RECORDS SUMMARY | 2024-04-15 06:18 | XMS_ITS | Encounter Summary ---
Author Organization [facility] Address [address] [place] [address] Phone Care Team Providers Care Patient Support Representative Name Role Phone Erwin Chirinos MD Primary Care Provider [phone] Reason for Visit * Reason Comments CKD Encounter Details Date Type Department Care Team (Latest Contact Info) Description 08/03/2023 12:40 PM CDT Office Visit [facility] [address], [address] [place] [address] William Samuel NP [address] [address] Stage 3b chronic kidney disease [...] Sign Reading Time Taken Comments Blood Pressure 125/67 08/03/2023 12:38 PM CDT Pulse 73 08/03/2023 12:38 PM CDT Temperature - - Respiratory Rate - - Oxygen Saturation - - Inhaled Oxygen Concentration - - Weight 143 kg (316 lb) 08/03/2023 12:38 PM CDT Height 190.5 cm (6' 3 ) 08/03/2023 12:38 PM CDT Body Mass Index 39.5 08/03/2023 12:38 PM CDT documented in this encounter Progress Notes * William Samuel NP - 08/03/2023 12:40 PM CDT Patient: Erwin Isaac Birthdate: 1950 PCP: ERWIN CHIRINOS MD Reason for visit: Visit Date: 08/03/2023 CHIEF COMPLAINT CKD INTERIM HISTORY Erwin Isaac is a 73 y.o. male presenting with a past medical history of DM, HTN, and CKD IIIb. Creatinine has been stable for over 8 years and is currently 1.8 mg/dL. He reports he has been doing well. Presents today for follow up. He was started on ozempic about 2 months ago and reports no weight loss but has see good improvement in blood sugars. He feels some of the readings are on the low side and managing provider is monitoring to determine if insulin adjustments need to be made. He denies any urinary symptoms. Denies any SOB beyond baseline KWAN. No NVD. Swelling to BLE nonpitting and skin tear noted to RLE. He does follow closely with PCP and reports he has a dog at home that sometimes jumps on him causing scratches. No signs of infections process. PAST MEDICAL HISTORY Past Medical History: Diagnosis Date Asthma Chronic kidney disease (CKD) Congestive heart failure (CMS-HCC) Disorder of thyroid Essential (primary) hypertension Heart failure History of colonoscopy Hyperlipidemia Polyneuropathy Type 2 diabetes mellitus without complication PAST SURGICAL HISTORY Past Surgical History: Procedure Laterality Date COLONOSCOPY SOCIAL HISTORY Social History Tobacco Use Smoking status: Never Smokeless tobacco: Never Substance Use Topics Alcohol use: No Drug use: No FAMILY HISTORY Family History Problem Relation Age of Onset Hypertensive disorder Mother Diabetes mellitus Neg Hx Kidney disease Neg Hx MEDICATIONS Current Outpatient Medications Medication Sig Dispense Refill atorvastatin (LIPITOR) 20 MG tablet one tab at bedtime 0 carvedilol (COREG) 6.25 MG tablet Take 6.25 mg by mouth 2 (two) times a day with meals digoxin (LANOXIN) 125 MCG tablet one tab daily 0 fenofibrate (TRIGLIDE) 160 MG tablet one tab daily 0 furosemide (LASIX) 80 MG tablet one tab daily 0 insulin NPH, Isophane, (HumuLIN) 100 UNIT/ML injection Inject 60 Units under the skin 2 (two) timesa day before meals insulin regular (HumuLIN) 100 UNIT/ML injection Inject under the skin 3 (three) times a day before meals losartan (COZAAR) 50 MG tablet one tab daily 0 potassium chloride (K-TAB) 20 MEQ CR tablet one tab daily 0 Semaglutide (OZEMPIC, 1 MG/DOSE, SC) Inject under the skin 1 (one) time each day spironolactone (ALDACTONE) 50 MG tablet one tab daily 0 warfarin (COUMADIN) 5 MG tablet Take 5 mg by mouth 1 (one) time each day No current facility-administered medications for this visit. ALLERGIES No Known Allergies REVIEW OF SYSTEMS Review of Systems Constitutional: Negative for activity change, appetite change and fatigue. HENT: Negative for hearing loss. Eyes: Negative for pain, discharge and redness. Respiratory: Negative for cough and shortness of breath. Cardiovascular: Negative for chest pain, palpitations and leg swelling. Gastrointestinal: Negative for abdominal distention, abdominal pain, constipation, diarrhea and nausea. Endocrine: Negative for polyuria. Genitourinary: Negative for difficulty urinating, dysuria, frequency, hematuria and urgency. Musculoskeletal: Negative for arthralgias, back pain, gait problem and joint swelling. Skin: Negative for color change and rash. Neurological: Negative for dizziness, speech difficulty, weakness and numbness. Hematological: Does not bruise/bleed easily. Psychiatric/Behavioral: Negative for confusion and sleep disturbance. VITALS BP 125/67 (BP Location: Right arm) Pulse 73 Ht 6' 3 (1.905 m) Wt (!) 316 lb (143 kg) BMI 39.50 kg/m?? BSA 2.75 m?? PHYSICAL EXAM Physical Exam Constitutional: Appearance: He is well-developed and well-nourished. HENT: Head: Normocephalic and atraumatic. Right Ear: External ear normal. Left Ear: External ear normal. Nose: Nose normal. Mouth/Throat: Mouth: Oropharynx is clear and moist. Eyes: Extraocular Movements: EOM normal. Conjunctiva/sclera: Conjunctivae normal. Pupils: Pupils are equal, round, and reactive to light. Neck: Musculoskeletal: Normal range of motion. Cardiovascular: Rate and Rhythm: Normal rate and regular rhythm. Heart sounds: Normal heart sounds. Pulmonary: Effort: Pulmonary effort is normal. Breath sounds: Normal breath sounds. Abdominal: General: Bowel sounds are normal. Palpations: Abdomen is soft. Musculoskeletal: General: Edema (trace to 1+ pitting BLE with typical PVD appearance and dryness) present. Normal range of motion. Skin: General: Skin is warm and dry. Neurological: Mental Status: He is alert and oriented to person, place, and time. Psychiatric: Mood and Affect: Mood and affect normal. RECENT LABS Lab Results Component Value Date EGFR 35 (L) 05/10/2021 EGFRAA 41 (L) 05/10/2021 EGFRCR 38 (L) 07/27/2023 CREATININE 1.84 (H) 07/27/2023 CREATININEUR 25 07/27/2023 GLUCOSE 137 (H) 07/27/2023 PTH 63 07/27/2023 HCT 34.8 (L) 07/27/2023 BUN 31 (H) 07/27/2023 NA 133 (L) 07/27/2023 K 4.2 07/27/2023 CL 98 07/27/2023 CO2 28 07/27/2023 ALBUMIN 4.2 07/27/2023 CA 9.2 07/27/2023 CA 9.2 07/27/2023 ASSESSMENT AND PLAN Assessment/Plan Diagnoses and all orders for this visit: Stage 3b chronic kidney disease ([facility]) Renal function has been stable for several years. We discussed POC and Goals of treatment include tight control of BP and blood sugar, avoid NSAIDS, and maintain hydration. Will continue to monitor labs and follow up with patient in 6 months. We discussed that should any changes in health state or interim labs noting changes to contact office and will see him in short duration. This visit required 30 minutes of which >50% was spent directly counseling and educating patientand/or family/caretakers on the diagnosis and POC. - CBC (Includes Diff/PLT); Future - PTH Intact w/ Calcium; Future - Renal Function Panel; Future - Urinalysis w/ Reflex to Microscopic; Future Diabetes mellitus with renal manifestations, type II or unspecified type, uncontrolled ([facility]) Goal A1C to be less than 7 Currently at goal and follows closely with Dr. Hare Essential (primary) hypertension Goal BP to be less than 130/80 BP is stable and will maintain same medications. Monoclonal gammopathy Secondary hyperparathyroidism of renal origin ([facility]) Stable and will monitor. WILLIAM SAMUEL NP documented in this encounter Plan of Treatment Upcoming Encounters Date Type Department Care Team (Late st Contact Info) Description 06/04/2024 1:40 PM LOZENGE DOUGH MIXER Office Visit [facility] [address], [address] [place] [address] William Samuel, JAVA USER INTERFACE DEVELOPER [address] [facility] [address] [place] [address] Scheduled Orders Name Type Priority Associated Diagnoses Orde r Schedule CBC (Includes Diff/PLT) Lab Routine Stage 3b chronic kidney disease ([facility]) Expected: 02/03/2024, Expires: 08/02/2024 PTH Intact w/ Calcium Lab Routine Stage 3b chronic kidney disease ([facility]) Expected: 02/03/2024, Expires: 08/02/2024 Renal Function Panel Lab Routine Stage 3b chronic kidney disease ([facility]) Expected: 02/03/2024, Expires: 08/02/2024 Urinalysis w/ Reflex to Microscopic Lab Routine Stage 3b chronic kidney disease ([facility]) Expected: 02/03/2024, Expires: 08/02/2024 documented as of this encounter Visit Diagnoses Diagnosis Stage 3b chronic kidney disease ([facility])- Primary Diabetes mellitus with renal manifestations, type II or unspecified type, uncontrolled ([facility]) Diabetes mellitus with renal manifestations, type II or unspecified type, uncontrolled Essential (primary) hypertension Monoclonal gammopathy Secondary hyperparathyroidism of renal origin ([facility]) Secondary hyperparathyroidism of renal origin documented in this encounter Care Teams Patient Support Representative Relationship Specialty Start Date End Date Erwin Chirinos MD [address] [facility] [address] [place] [id number] PCP - General Internal Medicine 10/03/19 documented as of this encounter
--- OUTSIDE RECORDS SUMMARY | 2024-04-15 06:19 | XMS_ITS | Encounter Summary ---
Author Organization [facility] Address [address] [place] [phone] Phone Care Team Providers Care Shovel Engineer Name Role Phone Unavailable Primary Care Provider Unavailabl e Encounter Details Date Type Department Care Team ([facility] Contact Info) Description 07/03/2018 Orders Only [facility] [address] [facility] 1 [place] [address] Kev Dey MD [address] [address] Social History Tobacco Use Types Packs/Day Years Used Date Smoking Tobacco: Never Alcohol Use Standard Drinks/Week Comments No 0 (1 standard drink = 0.6 oz pur e alcohol) Sex and Gender Information Value Date Recorded Sex Assigned at Not on file Gender Identity Not on file Sexual Orientation Not on file documented as of this encounter Plan of Treatment Upcoming Encounters Date Type Department Care Team ([facility] Contact Info) Description 06/04/2024 1:40 PM PIPE CHIPPER Office Visit [facility] [address] [facility], [address] [place] [address] Massiel Meehan NP [address] [facility] 1 [place] [address] documented as of this encounter Procedures Procedure Name Priority Date/Time Associated Diagnosis Comments MICROALBUMIN, RANDOM URINE WITH CREATININE Routine 07/03/2018 12:35 PM CDT URINALYSIS W/ REFLEX TO MICROSCOPIC Routine 07/03/2018 12:35 PM CDT documented in this encounter Results * (ABNORMAL) Urinalysis w/ Reflex to Microscopic (07/03/2018 12:35 PM CDT) Color of Urine YELLOW [facility]LLOW [facility] Reducing substances, Urine CANCELED NEGATIVE % [facility] Comment:Result canceled by t he ancillary. Bilirubin, total, Urine NEGATIVE NEGATIVE [facility] Leukocytes, Urine sediment CANCELED < OR = 5 /HPF [facility] Comment:Result canceled by t he ancillary. Erythrocytes, Urine sediment CANCELED < OR = 2 /HPF [facility] Comment:Result canceled by t he ancillary. Epithelial cells, squamous, Urine sediment CANCELED < OR = 5 /HPF [facility] Comment:Result canceled by t he ancillary. Transitional cells, Urine sediment CANCELED < OR = 5 /HPF [facility] Comment:Result canceled by t he ancillary. Epithelial cells, renal, Urine sediment CANCELED < OR = 3 /HPF [facility] Comment:Result canceled by t he ancillary. Bacteria, Urine sediment CANCELED NONE SEEN /HPF [facility] Comment:Result canceled by t he ancillary. Calcium oxalate crystals, Urine sediment CANCELED NONE OR FEW /HPF [facility] Comment:Result canceled by t he ancillary. Triple phosphate crystals, Urine sediment CANCELED NONE OR FEW /HPF [facility] Comment:Result canceled by t he ancillary. Urate crystals, Urine sediment CANCELED NONE OR FEW /HPF [facility] Comment:Result canceled by t he ancillary. Amorphous sediment, Urine sediment CANCELED NONE OR FEW /HPF [facility] Comment:Result canceled by t he ancillary. Crystals, Urine sediment CANCELED NONE SEEN /HPF [facility] Comment:Result canceled by t he ancillary. Hyaline casts, Urine sediment CANCELED NONE SEEN /LPF [facility] Comment:Result canceled by t he ancillary. Granular casts, Urine sediment CANCELED NONE SEEN /LPF [facility] Comment:Result canceled by t he ancillary. Casts, Urine sediment CANCELED NONE SEEN /LPF [facility] Comment:Result canceled by t he ancillary. Yeast, Urine sediment CANCELED NONE SEEN /HPF [facility] Comment:Result canceled by t he ancillary. Service comment [facility] Comment:Result canceled by t he ancillary. 07/03/2018 12:3 5 PM CDT 07/03/2018 2:04 PM CDT Narrative [facility] - 07/04/2018 11:00 AM CDT SPLIT 07/03/2018 FROM [id number] Resulting Agency Comment Performing Organization Information: ?Site ID: [id number] ?Name: [facility] ?Address: [address] [place] [address] [place] [address] ?Director: Taurus Yen D.O., MPH Kev Dey MD LAB URINE ORDERABLES [facility] * MICROALBUMIN,RAND UR(W-CREAT) (07/03/2018 12:35 PM CDT) Creatinine, Urine 31 20 - 320 mg/dL [facility] Microalbumin, Urine <0.2 See Note: mg/dL [facility] Comment: Reference Range: Reference Range Not established Albumin/Creatinine , Urine NOTE <30 mcg/mg creat [facility] Comment: The microalbumin value is less than 0.2 mg/dL therefore we are unable to calculate excretion and/or creatinine ratio. ?? The ADA defines abnormalities in albumin excretion as follows: Category ? Result (mcg/mg creatinine) Normal ?<30 Microalbuminuria ? 30-299 Clinical albuminuria ?? > OR = 300 The ADA recommends that at least two of three specimens collected within a 3-6 month period be abnormal before considering a patient to be within a diagnostic category. 07/03/2018 12:3 5 PM CDT 07/03/2018 2:04 PM CDT Narrative [facility] - 07/04/2018 11:00 AM CDT SPLIT 07/03/2018 FROM [id number] Resulting Agency Comment Performing Organization Information: ?Site ID: [id number] ?Name: [facility] ?Address: [address] [place], [place] [address] [address] ?Director: Taurus Yen D.O., MPH Kev Dey MD LAB URINE ORDERABLES [facility] documented in this encounter Visit Diagnoses Not on filedocumented in this encounter
--- OUTSIDE RECORDS SUMMARY | 2024-04-15 06:19 | XMS_ITS | Encounter Summary ---
Author Organization [facility] Address [address] [place] [phone] Phone Care Team Providers Care Slaughterer Religious Ritual Name Role Phone Unavailable Primary Care Provider Unavailabl e Encounter Details Date Type Department Care Team (Late st Contact Info) Description 11/04/2016 Legacy Encounter - Labs HISTORICAL CONVERSION [facility] [address] [address], [place] [address] ProviderAshly MD [facility] [place] [id number] Social History Tobacco Use Types Packs/Day Years Used Date Smoking Tobacco: Never Assessed Sex and Gender Information Value Date Recorded Sex Assigned at Not on file Gender Identity Not on file Sexual Orientation Not on file documented as of this encounter Plan of Treatment Upcoming Encounters Date Type Department Care Team (Late st Contact Info) Description 06/04/2024 1:40 PM GUIDANCE DIRECTOR Office Visit [facility] [address], [address] [place] [address] Massiel Meehan, GERONTOLOGY AIDE [address] [facility] 1 [place] [address] documented as of this encounter Procedures Procedure Name Priority Date/Time Associated Diagnosis Comments PROTEIN, TOTAL W/CREAT, 24 HOUR URINE Routine 11/04/2016 8:56 AM CDT CREATININE CLEARANCE Routine 11/04/2016 8:56 AM CDT MICROALBUMIN, RANDOM URINE (W/O CREATININE) Routine 11/04/2016 8:53 AM CDT CBC (INCLUDES DIFFERENTIAL/PLATELE TS) Routine 11/04/2016 8:53 AM CDT URINALYSIS, COMPLETE Routine 11/04/2016 8:53 AM CDT RENAL FUNCTION PANEL (RFP) Routine 11/04/2016 8:53 AM CDT IMMUNOFIXATION, URINE Routine 11/04/2016 8:53 AM CDT PROTEIN ELECTROPHORESIS, URINE, RANDOM Routine 11/04/2016 8:53 AM CDT documented in this encounter Results * PROTEIN, TOTAL W/CREAT, 24 HOUR URINE (11/04/2016 8:56 AM CDT) Creatinine, 24 hour Urine 1.40 0.63 - 2.50 g/24 h EXTERNAL LAB Protein/Creatini ne, 24 hour Urine NOTE < OR = 84 mg/g creat EXTERNAL LAB Protein, 24 hour Urine NOTE <150 mg/24 h EXTERNAL LAB Comment: THE PROTEIN VALUE IS LESS THAN 4 MG/DL THEREFORE WE ARE UNABLE TO CALCULATE EXCRETION AND/OR CREATININE RATIO. ?? URINE VOLUME: 2850/24 11/04/2016 8:56 AM CDT 11/04/2016 8:56 AM CDT Historical Provider LAB URINE ORDERAB LES EXTERNAL LAB * (ABNORMAL) Creatinine Clearance (11/04/2016 8:56 AM CDT) Creatinine, Serum/Plasma 1.95(H) 0.70 - 1.25 mg/dL EXTERNAL LAB Comment: For patients >49 years of age, the reference limit for Creatinine is approximately 13% higher for people identified as -Citizen [place]. eGFR, non 35(L) > OR = 60 mL/min/1. 73m2 EXTERNAL LAB eGFR, 40(L) > OR = 60 mL/min/1. 73m2 EXTERNAL LAB Creatinine, 24 hour Urine 1.40 0.63 - 2.50 g/24 h EXTERNAL LAB Body surface area 2.61 EXTERNAL LAB Creatinine renal clearance, 24 hour 33(L) 85 - 125 mL/min EXTERNAL LAB Body height Stated 6 ft EXTERNAL LAB Body height Stated 3 in EXTERNAL LAB Body weight Stated 300 EXTERNAL LAB 11/04/2016 8:56 AM CDT 11/04/2016 8:56 AM CDT Historical Provider LAB BLOOD ORDERAB LES Performing Organization Address [facility] Co de Phone Number EXTERNAL LAB * Protein Total And Protein Electrophoresis (Urine) (11/04/2016 8:53 AM CDT) Creatinine, Urine 95 20 - 370 mg/dL EXTERNAL LAB Protein/Creatinine, Urine 63 22 - 128 mg/g creat EXTERNAL LAB Protein, Urine 6 5 - 25 mg/dL EXTERNAL LAB Albumin/Protein, total 100 % EXTERNAL LAB Alpha 1 globulin/Protein, total 0 % EXTERNAL LAB Alpha 2 globulin/Protein, total 0 % EXTERNAL LAB Beta globulin/Protein, total 0 % EXTERNAL LAB Gamma globulin/Protein, total 0 % EXTERNAL LAB Protein, monoclonal, Urine CANCELED NONE DETECTED mg/dL EXTERNAL LAB Comment:Result canceled by t he ancillary. Protein, monoclonal band 2, Urine CANCELED NONE DETECTED mg/dL EXTERNAL LAB Comment:Result canceled by t he ancillary. Protein, monoclonal band 3, Urine CANCELED NONE DETECTED mg/dL EXTERNAL LAB Comment:Result canceled by t he ancillary. Interpretation EXTERNAL LAB Comment: Agarose electrophoresis of urine reveals albumin. No abnormal protein is observed. 11/04/2016 8:53 AM CDT 11/04/2016 8:55 AM CDT Historical Provider LAB URINE ORDERAB LES Performing Organization Address [facility] Co de Phone Number EXTERNAL LAB * Immunofixation, Urine (11/04/2016 8:53 AM CDT) Immunofixation for Urine EXTERNAL LAB Comment:IgG lambda monoclona l band present. 11/04/2016 8:53 AM CDT 11/04/2016 8:55 AM CDT Historical Provider LAB BLOOD ORDERAB LES Performing Organization Address [facility] Co de Phone Number EXTERNAL LAB * (ABNORMAL) CBC (Includes Diff/Plt) (11/04/2016 8:53 AM CDT) Leukocytes, Blood 6.7 3.8 - 10.8 Thousand/ uL EXTERNAL LAB Erythrocytes (RBC) 3.89(L) 4.20 - 5.80 Million/u L EXTERNAL LAB Hemoglobin (HGB) 11.8(L) 13.2 - 17.1 g/dL EXTERNAL LAB Hematocrit (HCT) 35.5(L) 38.5 - 50.0 % EXTERNAL LAB MCV 91.3 80.0 - 100.0 fL EXTERNAL LAB MCH 30.3 27.0 - 33.0 pg EXTERNAL LAB MCHC 33.2 32.0 - 36.0 g/dL EXTERNAL LAB Erythrocyte Distribution Width (RDW) 12.9 11.0 - 15.0 % EXTERNAL LAB Platelets, Blood 221 140 - 400 Thousand/ uL EXTERNAL LAB Platelet mean volume, Blood 11.1 7.5 - 12.5 fL EXTERNAL LAB Neutrophils, Blood 4,060 1,500 - 7,800 cells/uL EXTERNAL LAB Band form neutrophils, Blood CANCELED 0 - 750 cells/uL EXTERNAL LAB Comment:Result canceled by t he ancillary. Metamyelocytes, Blood CANCELED 0 cells/uL EXTERNAL LAB Comment:Result canceled by t ancillary. Myelocytes, Blood CANCELED 0 cells/uL EXTERNAL LAB Comment:Result canceled by t he ancillary. Promyelocytes, Blood CANCELED 0 cells/uL EXTERNAL LAB Comment:Result canceled by t he ancillary. Lymphocytes, Blood 1,595 850 - 3,900 cells/uL EXTERNAL LAB Monocytes, Blood 777 200 - 950 cells/uL EXTERNAL LAB Eosinophils, Blood 208 15 - 500 cells/uL EXTERNAL LAB Basophils, Blood 60 0 - 200 cells/uL EXTERNAL LAB Blasts, Blood CANCELED 0 cells/uL EXTERNAL LAB Comment:Result canceled by t he ancillary. Nucleated erythrocytes, Blood CANCELED 0 cells/uL EXTERNAL LAB Comment:Result canceled by t he ancillary. Neutrophils/100 leukocytes, Blood 60.6 % EXTERNAL LAB Band form neutrophils/100 leukocytes, Blood CANCELED % EXTERNAL LAB Comment:Result canceled by t he ancillary. Metamyelocytes/10 0 leukocytes, Blood CANCELED % EXTERNAL LAB Comment:Result canceled by t he ancillary. Myelocytes/100 leukocytes, Blood CANCELED % EXTERNAL LAB Comment:Result canceled by t he ancillary. Promyelocytes/100 leukocytes, Blood CANCELED % EXTERNAL LAB Comment:Result canceled by t he ancillary. Lymphocytes/100 leukocytes, Blood 23.8 % EXTERNAL LAB Variant lymphocytes/100 leukocytes, Blood CANCELED 0 - 10 % EXTERNAL LAB Comment:Result canceled by t he ancillary. Monocytes/100 leukocytes, Blood 11.6 % EXTERNAL LAB Eosinophils/100 leukocytes, Blood 3.1 % EXTERNAL LAB Basophils/100 leukocytes, Blood 0.9 % EXTERNAL LAB Blasts/100 leukocytes, Blood CANCELED % EXTERNAL LAB Comment:Result canceled by t he ancillary. Nucleated erythrocytes/100 leukocytes, Blood CANCELED 0 /100 WBC EXTERNAL LAB Comment:Result canceled by t he ancillary. Service comment CANCELED EXTERNAL LAB Comment:Result canceled by t he ancillary. 11/04/2016 8:53 AM CDT 11/04/2016 8:55 AM CDT Historical Provider MD LAB BLOOD ORDERAB LES EXTERNAL LAB * (ABNORMAL) Urinalysis, Complete (11/04/2016 8:53 AM CDT) Color of Urine YELLOW YELLOW EXTERNAL LAB Appearance of Urine CLEAR CLEAR EXTERNAL LAB Specific gravity of Urine 1.013 1.001 - 1.035 EXTERNAL LAB pH of Urine 5.5 5.0 - 8.0 EXTERNAL LAB Glucose, Urine TRACE(A) NEGATIVE EXTERNAL LAB Reducing substances, Urine CANCELED NEGATIVE % EXTERNAL LAB Comment:Result canceled by t he ancillary. Bilirubin, total, Urine NEGATIVE NEGATIVE EXTERNAL LAB Ketones, Urine NEGATIVE NEGATIVE EXTERNAL LAB Hemoglobin, Urine NEGATIVE NEGATIVE EXTERNAL LAB Protein, Urine NEGATIVE NEGATIVE EXTERNAL LAB Nitrite, Urine NEGATIVE NEGATIVE EXTERNAL LAB Leukocyte esterase, Urine NEGATIVE NEGATIVE EXTERNAL LAB Leukocytes, Urine sediment NONE SEEN < OR = 5 /HPF EXTERNAL LAB Erythrocytes, Urine sediment NONE SEEN < OR = 2 /HPF EXTERNAL LAB Epithelial cells, squamous, Urine sediment NONE SEEN < OR = 5 /HPF EXTERNAL LAB Transitional cells, Urine sediment CANCELED < OR = 5 /HPF EXTERNAL LAB Comment:Result canceled by t he ancillary. Epithelial cells, renal, Urine sediment CANCELED < OR = 3 /HPF EXTERNAL LAB Comment:Result canceled by t he ancillary. Bacteria, Urine sediment NONE SEEN NONE SEEN /HPF EXTERNAL LAB Calcium oxalate crystals, Urine sediment CANCELED NONE OR FEW /HPF EXTERNAL LAB Comment:Result canceled by t he ancillary. Triple phosphate crystals, Urine sediment CANCELED NONE OR FEW /HPF EXTERNAL LAB Comment:Result canceled by t he ancillary. Urate crystals, Urine sediment CANCELED NONE OR FEW /HPF EXTERNAL LAB Comment:Result canceled by t he ancillary. Amorphous sediment, Urine sediment CANCELED NONE OR FEW /HPF EXTERNAL LAB Comment:Result canceled by t he ancillary. Crystals, Urine sediment CANCELED NONE SEEN /HPF EXTERNAL LAB Comment:Result canceled by t he ancillary. Hyaline casts, Urine sediment NONE SEEN NONE SEEN /LPF EXTERNAL LAB Granular casts, Urine sediment CANCELED NONE SEEN /LPF EXTERNAL LAB Comment:Result canceled by t he ancillary. Casts, Urine sediment CANCELED NONE SEEN /LPF EXTERNAL LAB Comment:Result canceled by t he ancillary. Yeast, Urine sediment CANCELED NONE SEEN /HPF EXTERNAL LAB Comment:Result canceled by t he ancillary. Service comment CANCELED EXTERNAL LAB Comment:Result canceled by t he ancillary. Service comment CANCELED EXTERNAL LAB Comment:Result canceled by t he ancillary. 11/04/2016 8:53 AM CDT 11/04/2016 8:55 AM CDT Historical Provider LAB URINE ORDERAB LES EXTERNAL LAB * Microalbumin, Random Urine (w/o Creatinine) (11/04/2016 8:53 AM CDT) Creatinine, Urine 95 20 - 370 mg/dL EXTERNAL LAB Microalbumin, Urine 0.8 See Note: mg/dL EXTERNAL LAB Comment: Reference Range: Reference Range Not established Albumin/Creatinine , Urine 8 <30 mcg/mg creat EXTERNAL LAB Comment: The ADA defines abnormalities in albumin excretion as follows: Category ? Result (mcg/mg creatinine) Normal ?<30 Microalbuminuria ? 30-299 Clinical albuminuria ?? > OR = 300 The ADA recommends that at least two of three specimens collected within a 3-6 month period be abnormal before considering a patient to be within a diagnostic category. 11/04/2016 8:53 AM CDT 11/04/2016 8:55 AM CDT Historical Provider LAB URINE ORDERAB LES EXTERNAL LAB * (ABNORMAL) Renal Function Panel (11/04/2016 8:53 AM CDT) Glucose, Serum/Plasma 104(H) 65 - 99 mg/dL EXTERNAL LAB Comment: ? Fasting reference interval For someone without known diabetes, a glucose value between 100 and 125 mg/dL is consistent with prediabetes and should be confirmed with a follow-up test. Urea nitrogen, Serum/Plasma (BUN) 35(H) 7 - 25 mg/dL EXTERNAL LAB Creatinine, Serum/Plasma 2.01(H) 0.70 - 1.25 mg/dL EXTERNAL LAB Comment: For patients >49 years of age, the reference limit for Creatinine is approximately 13% higher for people identified as -Citizen [place]. eGFR, non 34(L) > OR = 60 mL/min/1. 73m2 EXTERNAL LAB eGFR, 39(L) > OR = 60 mL/min/1. 73m2 EXTERNAL LAB Urea nitrogen/Creatinin e, Serum/Plasma 17 6 - 22 (calc) EXTERNAL LAB Sodium, Serum/Plasma 138 135 - 146 mmol/L EXTERNAL LAB Potassium, Serum/Plasma 4.0 3.5 - 5.3 mmol/L EXTERNAL LAB Chloride, Serum/Plasma 101 98 - 110 mmol/L EXTERNAL LAB Carbon dioxide CO2), total, Serum/Plasma 25 20 - 31 mmol/L EXTERNAL LAB Calcium, Serum/Plasma 9.3 8.6 - 10.3 mg/dL EXTERNAL LAB Phosphate, Serum/Plasma 4.1 2.1 - 4.3 mg/dL EXTERNAL LAB Albumin, Serum/Plasma 4.3 3.6 - 5.1 g/dL EXTERNAL LAB 11/04/2016 8:53 AM CDT 11/04/2016 8:55 AM CDT Historical Provider LAB BLOOD ORDERAB LES EXTERNAL LAB documented in this encounter Visit Diagnoses Not on filedocumented in this encounter
--- OUTSIDE RECORDS SUMMARY | 2024-04-15 06:19 | XMS_ITS | Encounter Summary ---
Author Organization [facility] Address [address] [place] [address] Phone Care Team Providers Care Microsoft Access Developer Name Role Phone Unavailable Primary Care Provider Unavailabl e Encounter Details Date Type Department Care Team (Late st Contact Info) Description 06/06/2017 Legacy Encounter - Labs HISTORICAL CONVERSION CENTRAL [address] [facility], [facility] [address] [address], [place] [address] Kev Dey MD [address] [address] Social History Tobacco Use Types Packs/Day Years Used Date Smoking Tobacco: Never Assessed Sex and Gender Information Value Date Recorded Sex Assigned at Not on file Gender Identity Not on file Sexual Orientation Not on file documented as of this encounter Plan of Treatment Upcoming Encounters Date Type Department Care Team (Late st Contact Info) Description 06/04/2024 1:40 PM E LEARNING COORDINATOR Office Visit [facility] [address], [address] [place] [address] Massiel Meehan NP [address] [address] documented as of this encounter Procedures Procedure Name Priority Date/Time Associated Diagnosis Comments COPY SENT TO: Routine 06/06/2017 2:19 PM E LEARNING COORDINATOR CLINICAL PDF REPORT [id number] Routine 06/06/2017 2:19 PM E LEARNING COORDINATOR CBC (INCLUDES DIFFERENTIAL/PLATEL ETS) Routine 06/06/2017 2:19 PM E LEARNING COORDINATOR RENAL FUNCTION PANEL (RFP) Routine 06/06/2017 2:19 PM E LEARNING COORDINATOR PTH INTACT AND CALCIUM, SERUM Routine 06/06/2017 2:19 PM E LEARNING COORDINATOR documented in this encounter Results * Clinical Pdf Report [id number] (06/06/2017 2:19 PM E LEARNING COORDINATOR) PDF EXTERNAL LAB 06/06/2017 2:19 PM E LEARNING COORDINATOR 06/06/2017 2:21 PM E LEARNING COORDINATOR Kev Dey MD LAB BLOOD ORDERABLES EXTERNAL LAB * (ABNORMAL) CBC (Includes Diff/Plt) (06/06/2017 2:19 PM E LEARNING COORDINATOR) Leukocytes, Blood 6.2 3.8 - 10.8 Thousand/ uL EXTERNAL LAB Erythrocytes (RBC) 4.04(L) 4.20 - 5.80 Million/u L EXTERNAL LAB Hemoglobin (HGB) 12.2(L) 13.2 - 17.1 g/dL EXTERNAL LAB Hematocrit (HCT) 36.4(L) 38.5 - 50.0 % EXTERNAL LAB MCV 90.1 80.0 - 100.0 fL EXTERNAL LAB MCH 30.2 27.0 - 33.0 pg EXTERNAL LAB MCHC 33.5 32.0 - 36.0 g/dL EXTERNAL LAB Erythrocyte Distribution Width (RDW) 12.5 11.0 - 15.0 % EXTERNAL LAB Platelets, Blood 236 140 - 400 Thousand/ uL EXTERNAL LAB Platelet mean volume, Blood 11.3 7.5 - 12.5 fL EXTERNAL LAB Neutrophils, Blood 3,615 1,500 - 7,800 cells/uL EXTERNAL LAB Band form neutrophils, Blood CANCELED 0 - 750 cells/uL EXTERNAL LAB Comment:Result canceled by t he ancillary. Metamyelocytes, Blood CANCELED 0 cells/uL EXTERNAL LAB Comment:Result canceled by t he ancillary. Myelocytes, Blood CANCELED 0 cells/uL EXTERNAL LAB Comment:Result canceled by t he ancillary. Promyelocytes, Blood CANCELED 0 cells/uL EXTERNAL LAB Comment:Result canceled by t he ancillary. Lymphocytes, Blood 1,841 850 - 3,900 cells/uL EXTERNAL LAB Monocytes, Blood 564 200 - 950 cells/uL EXTERNAL LAB Eosinophils, Blood 118 15 - 500 cells/uL EXTERNAL LAB Basophils, Blood 62 0 - 200 cells/uL EXTERNAL LAB Blasts, Blood CANCELED 0 cells/uL EXTERNAL LAB Comment:Result canceled by t he ancillary. Nucleated erythrocytes, Blood CANCELED 0 cells/uL EXTERNAL LAB Comment:Result canceled by t he ancillary. Neutrophils/100 leukocytes, Blood 58.3 % EXTERNAL LAB Band form neutrophils/100 leukocytes, Blood CANCELED % EXTERNAL LAB Comment:Result canceled by t he ancillary. Metamyelocytes/10 0 leukocytes, Blood CANCELED % EXTERNAL LAB Comment:Result canceled by t he ancillary. Myelocytes/100 leukocytes, Blood CANCELED % EXTERNAL LAB Comment:Result canceled by t he ancillary. Promyelocytes/100 leukocytes, Blood CANCELED % EXTERNAL LAB Comment:Result canceled by t he ancillary. Lymphocytes/100 leukocytes, Blood 29.7 % EXTERNAL LAB Variant lymphocytes/100 leukocytes, Blood CANCELED 0 - 10 % EXTERNAL LAB Comment:Result canceled by t he ancillary. Monocytes/100 leukocytes, Blood 9.1 % EXTERNAL LAB Eosinophils/100 leukocytes, Blood 1.9 % EXTERNAL LAB Basophils/100 leukocytes, Blood 1.0 % EXTERNAL LAB Blasts/100 leukocytes, Blood CANCELED % EXTERNAL LAB Comment:Result canceled by t he ancillary. Nucleated erythrocytes/100 leukocytes, Blood CANCELED 0 /100 WBC EXTERNAL LAB Comment:Result canceled by t he ancillary. Service comment CANCELED EXTERNAL LAB Comment:Result canceled by t he ancillary. 06/06/2017 2:19 PM E LEARNING COORDINATOR 06/06/2017 2:21 PM E LEARNING COORDINATOR Kev Dey MD LAB BLOOD ORDERABLES EXTERNAL LAB * (ABNORMAL) Renal Function Panel (06/06/2017 2:19 PM E LEARNING COORDINATOR) Pathologist [facility] Glucose, Serum/Plasma 220(H) 65 - 99 mg/dL EXTERNAL LAB Comment: ? Fasting reference interval For someone without known diabetes, a glucose value >125 mg/dL indicates that they may have diabetes and this should be confirmed with a follow-up test. Urea nitrogen, Serum/Plasma (BUN) 46(H) 7 - 25 mg/dL EXTERNAL LAB Creatinine, Serum/Plasma 2.11(H) 0.70 - 1.25 mg/dL EXTERNAL LAB Comment: For patients >49 years of age, the reference limit for Creatinine is approximately 13% higher for people identified as -Danish. eGFR, non 31(L) > OR = 60 mL/min/1. 73m2 EXTERNAL LAB eGFR, 36(L) > OR = 60 mL/min/1. 73m2 EXTERNAL LAB Urea nitrogen/Creatinin e, Serum/Plasma 22 6 - 22 (calc) EXTERNAL LAB Sodium, Serum/Plasma 135 135 - 146 mmol/L EXTERNAL LAB Potassium, Serum/Plasma 4.4 3.5 - 5.3 mmol/L EXTERNAL LAB Chloride, Serum/Plasma 95(L) 98 - 110 mmol/L EXTERNAL LAB Carbon dioxide CO2), total, Serum/Plasma 31 20 - 31 mmol/L EXTERNAL LAB Calcium, Serum/Plasma 9.7 8.6 - 10.3 mg/dL EXTERNAL LAB Phosphate, Serum/Plasma 3.6 2.1 - 4.3 mg/dL EXTERNAL LAB Albumin, Serum/Plasma 4.3 3.6 - 5.1 g/dL EXTERNAL LAB 06/06/2017 2:19 PM E LEARNING COORDINATOR 06/06/2017 2:21 PM E LEARNING COORDINATOR Kev Dey MD LAB BLOOD ORDERABLES EXTERNAL LAB * PTH Intact w/ Calcium (06/06/2017 2:19 PM E LEARNING COORDINATOR) PTH, Intact, Serum/Plasma 48 14 - 64 pg/mL EXTERNAL LAB Comment: Interpretive Guide ?Intact PTH ? Calcium ? ------- Normal Parathyroid ?Normal ? Normal Hypoparathyroidism ?Low or Low Normal ?Low Hyperparathyroidism ?? Primary ?Normal or High ? High ?? Secondary ?High ? Normal or Low ?? Tertiary ? High ? High Non-Parathyroid ?? Hypercalcemia ?Low or Low Normal ?High Calcium, Serum/Plasma 9.7 8.6 - 10.3 mg/dL EXTERNAL LAB 06/06/2017 2:19 PM E LEARNING COORDINATOR 06/06/2017 2:21 PM E LEARNING COORDINATOR Kev Dey MD LAB BLOOD ORDERABLES Performing Organization Address City/[facility] Co de Phone Number EXTERNAL LAB * Copy Sent To: (06/06/2017 2:19 PM E LEARNING COORDINATOR) COPY(IES) SENT TO: EXTERNAL LAB Comment: ?[facility] ?[address] ?[place] [address] 06/06/2017 2:19 PM E LEARNING COORDINATOR 06/06/2017 2:21 PM E LEARNING COORDINATOR Kev Dey MD LAB BLOOD ORDERABLES Performing Organization Address City/[facility] Co de Phone Number EXTERNAL LAB documented in this encounter Visit Diagnoses Not on filedocumented in this encounter
--- OUTSIDE RECORDS SUMMARY | 2024-04-15 06:19 | XMS_ITS | Encounter Summary ---
Author Organization [facility] Address [address] [place] [phone] Phone Care Team Providers Care Mems Integration Engineer Name Role Phone Unavailable Primary Care Provider Unavailabl e Encounter Details Date Type Department Care Team (Late st Contact Info) Description 05/14/2016 Legacy Encounter - Labs HISTORICAL CONVERSION CENTRAL [facility] [address], [place] [address] Kev Dey MD [address] [address] Social History Tobacco Use Types Packs/Day Years Used Date Smoking Tobacco: Never Assessed Sex and Gender Information Value Date Recorded Sex Assigned at Not on file Gender Identity Not on file Sexual Orientation Not on file documented as of this encounter Plan of Treatment Upcoming Encounters Date Type Department Care Team (Late st Contact Info) Description 06/04/2024 1:40 PM PRODUCT SAFETY SPECIALIST Office Visit [facility] [address], [address] [place] [address] Massiel Meehan NP [address] [address] documented as of this encounter Procedures Procedure Name Priority Date/Time Associated Diagnosis Comments BASIC METABOLIC Routine 05/14/2016 10:37 AM PRODUCT SAFETY SPECIALIST documented in this encounter Results * (ABNORMAL) Basic Metabolic (05/14/2016 10:37 AM PRODUCT SAFETY SPECIALIST) Glucose, Serum/Plasma 129(H) 65 - 99 mg/dL EXTERNAL LAB Comment:Fasting reference in terval Urea nitrogen, Serum/Plasma (BUN) 39(H) 7 - 25 mg/dL EXTERNAL LAB Creatinine, Serum/Plasma 1.96(H) 0.70 - 1.25 mg/dL EXTERNAL LAB Comment: For patients >49 years of age, the reference limit for Creatinine is approximately 13% higher for people identified as -Ugandan. eGFR, non 35(L) > OR = 60 mL/min/1. 73m2 EXTERNAL LAB eGFR, 40(L) > OR = 60 mL/min/1. 73m2 EXTERNAL LAB Urea nitrogen/Creatinin e, Serum/Plasma 20 6 - 22 (calc) EXTERNAL LAB Sodium, Serum/Plasma 136 135 - 146 mmol/L EXTERNAL LAB Potassium, Serum/Plasma 4.6 3.5 - 5.3 mmol/L EXTERNAL LAB Chloride, Serum/Plasma 97(L) 98 - 110 mmol/L EXTERNAL LAB Carbon dioxide CO2), total, Serum/Plasma 28 20 - 31 mmol/L EXTERNAL LAB Calcium, Serum/Plasma 9.3 8.6 - 10.3 mg/dL EXTERNAL LAB 05/14/2016 10:3 7 AM PRODUCT SAFETY SPECIALIST 05/14/2016 10:39 AM PRODUCT SAFETY SPECIALIST Kev Dey MD LAB BLOOD ORDERABLES EXTERNAL LAB documented in this encounter Visit Diagnoses Not on filedocumented in this encounter
--- OUTSIDE RECORDS SUMMARY | 2024-04-15 06:19 | XMS_ITS | Encounter Summary ---
Author Organization [facility] Address [address] [place] [phone] Phone Care Team Providers Care Scallop Raker Name Role Phone Unavailable Primary Care Provider Unavailabl e Encounter Details Date Type Department Care Team (Late st Contact Info) Description 01/02/2019 Orders Only [facility] [address] [facility] [place] [address] Kev Dey MD [address] [address] Social History Tobacco Use Types [...] st Contact Info) Description 06/04/2024 1:40 PM CANDY SUPERVISOR Office Visit [facility] [address] [facility], [address] [place], [place] [id number] Massiel Meehan NP [address] [address] documented as of this encounter Procedures Procedure Name Priority Date/Time Associated Diagnosis Comments MICROALBUMIN, RANDOM URINE WITH CREATININE Routine 01/02/2019 7:29 AM CDT CBC (INCLUDES DIFFERENTIAL/PLATELE TS) Routine 01/02/2019 7:29 AM CDT URINALYSIS, COMPLETE Routine 01/02/2019 7:29 AM CDT RENAL FUNCTION PANEL (RFP) Routine 01/02/2019 7:29 AM CDT documented in this encounter Results * (ABNORMAL) CBC (includes Differential/Platelets) (01/02/2019 7:29 AM CDT) Leukocytes, Blood 6.1 3.8 - 10.8 Thousand/ uL [facility] ([facility]) Erythrocytes (RBC) 4.08(L) 4.20 - 5.80 Million/u L [facility] ([facility]) Hemoglobin (HGB) 11.9(L) 13.2 - 17.1 g/dL [facility] ([facility]) Hematocrit (HCT) 36.6(L) 38.5 - 50.0 % [facility] ([facility]) MCV 89.7 80.0 - 100.[address] [facility] ([facility]) MCH 29.2 27.0 - 33.[address] [facility] ([facility]) MCHC 32.5 32.0 - 36.0 g/dL [facility] ([facility]) Erythrocyte Distribution Width (RDW) 13.4 11.0 - 15.0 % [facility] ([facility]) Platelets, Blood 264 140 - 400 Thousand/ uL [facility] ([facility]) Platelet mean volume, Blood 10.6 7.5 - 12.[address] [facility] ([facility]) Neutrophils, Blood 3,611 1,500 - 7,800 cells/uL [facility] ([facility]) Band form neutrophils, Blood CANCELED 0 - 750 cells/uL [facility] ([facility]) Comment:Result canceled by t he ancillary. Metamyelocytes, Blood CANCELED 0 cells/uL [facility] ([facility]) Comment:Result canceled by t he ancillary. Myelocytes, Blood CANCELED 0 cells/uL [facility] ([facility]) Comment:Result canceled by t he ancillary. Promyelocytes, Blood CANCELED 0 cells/uL [facility] ([facility]) Comment:Result canceled by t he ancillary. Lymphocytes, Blood 1,824 850 - 3,900 cells/uL [facility] ([facility]) Monocytes, Blood 531 200 - 950 cells/uL [facility] ([facility]) Eosinophils, Blood 73 15 - 500 cells/uL [facility] ([facility]) Basophils, Blood 61 0 - 200 cells/uL [facility] ([facility]) Blasts, Blood CANCELED 0 cells/uL [facility] ([facility]) Comment:Result canceled by t he ancillary. Nucleated erythrocytes, Blood CANCELED 0 cells/uL [facility] ([facility]) Comment:Result canceled by t he ancillary. Neutrophils/100 leukocytes, Blood 59.2 % [facility] [...] by t he ancillary. Lymphocytes/100 leukocytes, Blood 29.9 % [facility] ([facility]) Variant lymphocytes/100 leukocytes, Blood CANCELED 0 - 10 % [facility] ([facility]) Comment:Result canceled by t he ancillary. Monocytes/100 leukocytes, Blood 8.7 % [facility] ([facility]) Eosinophils/100 leukocytes, Blood 1.2 % [facility] ([facility]) Basophils/100 leukocytes, Blood 1.0 % [facility] [...] ([facility]) Comment:Result canceled by t he ancillary. 01/02/2019 7:29 AM CDT 01/02/2019 7:32 AM CDT Narrative Resulting Agency Comment Performing Organization Information: ?Site ID: [place] ?Name: [facility] ?Address: [address] [address] ?Director: Taurus Yen D.O., MPH Kev Dey MD LAB BLOOD ORDERABLES [facility] ([facility]) * Urinalysis, Complete (01/02/2019 7:29 AM CDT) Color of Urine YELLOW YELLOW [...] [facility] ([facility]) Transitional cells, Urine sediment CANCELED < OR = 5 /HPF [facility] ([facility]) Comment:Result canceled by t he ancillary. Epithelial cells, renal, Urine sediment CANCELED < OR = 3 /HPF [facility] ([facility]) Comment:Result canceled by t he ancillary. Bacteria, Urine sediment NONE SEEN NONE SEEN /HPF [facility] ([facility]) Calcium oxalate crystals, Urine sediment CANCELED NONE [...] [facility] ([facility]) Granular casts, Urine sediment CANCELED NONE SEEN [...] [facility] ([facility]) Comment:Result canceled by mandi echevarria ancillary. Service comment [facility]ED [facility] ([facility]) Comment:Result canceled by mandi echevarria ancillary. 01/02/2019 7:29 AM CDT 01/02/2019 7:32 AM CDT Narrative Resulting Agency Comment Performing Organization Information: ?Site ID: [place] ?Name: [facility] ?Address: [address] [address] ?Director: Taurus Yen D.O., MPH Kev Dey MD LAB URINE ORDERABLES [facility]) * (ABNORMAL) Renal Function Panel (RFP) (01/02/2019 7:29 AM CDT) Glucose, Serum/Plasma 184(H) 65 - 99 mg/dL [facility] ([facility]) Comment: ? Fasting reference interval For someone without known diabetes, a glucose value >125 mg/dL indicates that they may have diabetes and this should be confirmed with a follow-up test. Urea nitrogen, Serum/Plasma (BUN) 35(H) 7 - 25 mg/dL [facility] ([facility]) Creatinine, Serum/Plasma 1.89(H) 0.70 - 1.25 mg/dL [facility] ([facility]) Comment: For patients >49 years of age, the reference limit for Creatinine is approximately 13% higher for people identified as -Cuban. eGFR, non 36(L) > OR = 60 mL/min/1. 73m2 [facility] ([facility]) eGFR, 41(L) > OR = 60 mL/min/1. 73m2 [facility] ([facility]) Urea nitrogen/Creatinin e, Serum/Plasma 19 6 - 22 (calc) [facility] ([facility]) Sodium, Serum/Plasma 135 135 - 146 mmol/L [facility] ([facility]) Potassium, Serum/Plasma 4.5 3.5 - 5.3 mmol/L [facility] [place] ([facility]) Chloride, Serum/Plasma 100 98 - 110 mmol/L [facility] [place] ([facility]) Carbon dioxide CO2), total, Serum/Plasma 25 20 - 32 mmol/L [facility] ([facility]) Calcium, Serum/Plasma 9.3 8.6 - 10.3 mg/dL [facility] ([facility]) Phosphate, Serum/Plasma 2.7 2.1 - 4.3 mg/dL [facility] Albumin, Serum/Plasma 4.2 3.6 - 5.1 g/dL [facility] [place] ([facility]) 01/02/2019 7:29 AM CDT 01/02/2019 7:32 AM CDT Narrative Resulting Agency Comment Performing Organization Information: ?Site ID: [place] ?Name: [facility] ?Address: [address] [place] [address] [place] [address] ?Director: Taurus Yen D.O., MPH Kev Dey MD LAB BLOOD ORDERABLES [facility] ([facility]) * Microalbumin, Random Urine with Creatinine (01/02/2019 7:29 AM CDT) Creatinine, Urine 68 20 - 320 mg/dL [facility] [place] ([facility]) Microalbumin, Urine 0.3 See Note: mg/dL [facility] [place] ([facility]) Comment: Reference Range: Reference Range Not established Albumin/Creatinine , Urine 4 <30 mcg/mg creat [facility] [place] (ST) Comment: The ADA defines abnormalities in albumin excretion as follows: Category ? Result (mcg/mg creatinine) Normal ?<30 Microalbuminuria ? 30-299 Clinical albuminuria ?? > OR = 300 The ADA recommends that at least two of three specimens collected within a 3-6 month period be abnormal before considering a patient to be within a diagnostic category. 01/02/2019 7:29 AM CDT 01/02/2019 7:32 AM CDT Narrative Resulting Agency Comment Performing Organization Information: ?Site ID: [place] ?Name: [facility] ?Address: [address] [address] ?Director: Taurus Yen D.O., MPH Kev Dey MD LAB URINE ORDERABLES [facility] ([facility]) documented in this encounter Visit Diagnoses Not on filedocumented in this encounter
--- OUTSIDE RECORDS SUMMARY | 2024-04-15 06:19 | XMS_ITS | Encounter Summary ---
Author Organization [facility] Address [address] [place] [phone] Phone Care Team Providers Care Geophysics Scientist Name Role Phone Unavailable Primary Care Provider Unavailabl e Reason for Visit * Reason Comments CKD Encounter Details Date Type Department Care Team ([facility] st Contact Info) Description 07/17/2018 2:00 PM CDT Office Visit [facility] [address], [address] [place] [address] William Samuel NP [address] [address] Chronic kidney disease, stage 3 (moderate) (Primary Dx); Monoclonal gammopathy; Essential (primary) hypertension; [...] Sign Reading Time Taken Comments Blood Pressure 105/67 07/17/2018 2:13 PM CDT Pulse 78 07/17/2018 2:13 PM CDT Temperature - - Respiratory Rate - - Oxygen Saturation - - Inhaled Oxygen Concentration - - Weight 141 kg (311 lb) 07/17/2018 2:13 PM CDT Height 190.5 cm (6' 3 ) 07/17/2018 2:13 PM CDT Body Mass Index 38.87 07/17/2018 2:13 PM CDT documented in this encounter Progress Notes * William Samuel NP - 07/17/2018 2:00 PM CDT Patient: Erwin Isaac Birthdate: 1950 PCP: Dr. Mandis Reason for visit: Visit Date: 07/17/2018 CHIEF COMPLAINT CKD INTERIM HISTORY Erwin Isaac is a 68 y.o. male presenting with a past medical history of DM, HTN, MGUS, cardiomyopathy, and established CKD3. Follows up after 6 months. Denies any changes in health. No SOB, swelling, or NVD. No changes in urinary habits and no urinary symptoms.. PAST MEDICAL HISTORY Past Medical History: Diagnosis Date ??? Asthma ??? Chronic kidney disease (CKD) ??? Congestive heart failure ??? Essential (primary) hypertension ??? Heart failure ??? Hyperlipidemia ??? Polyneuropathy ??? Type 2 diabetes mellitus without complication PAST SURGICAL HISTORY History reviewed. No pertinent surgical history. SOCIAL HISTORY Social History Tobacco Use ??? [...] tab at bedtime 0 ??? carvedilol (COREG) 12.5 MG tablet Take 12.5 mg by mouth 2 (two) times a day with meals. 1 tab in the AM and 2 tab in the PM ??? digoxin (LANOXIN) 125 MCG tablet one tab daily 0 ??? fenofibrate (TRIGLIDE) 160 MG tablet one tab daily 0 ??? furosemide (LASIX) 80 MG tablet one tab daily 0 ??? insulin NPH, Isophane, (NOVOLIN N) 100 UNIT/ML injection 10 in the morning 50 units in the PM 0 ??? insulin regular (NOVOLIN R) 100 UNIT/ML injection 40 units before each meal 0 ??? losartan (COZAAR) 50 MG tablet one tab daily 0 ??? potassium chloride (K-TAB) 20 MEQ CR tablet one tab daily 0 ??? spironolactone (ALDACTONE) 50 MG tablet one tab daily 0 No current facility-administered medications for this visit. [...] and nausea. Endocrine: Negative for polyuria. Genitourinary: Positive for frequency (Has 2-3 episodes nocturia regularly). Negative for difficulty urinating, dysuria, hematuria and urgency. Musculoskeletal: Negative for arthralgias, back pain, gait problem and joint swelling. Skin: Negative for color change and rash. Neurological: Negative for dizziness, speech difficulty, weakness and numbness. Hematological: Does not bruise/bleed easily. Psychiatric/Behavioral: Negative for confusion and sleep disturbance. VITALS BP 105/67 Pulse 78 Ht 6' 3 (1.905 m) Wt (!) 311 lb (141 kg) BMI 38.87 kg/m?? BSA 2.73 m?? PHYSICAL EXAM Physical Exam Constitutional: He is oriented to person, place, and time. He appears well- developed and well-nourished. HENT: Head: Normocephalic and atraumatic. Right Ear: External ear normal. Left Ear: External ear normal. Nose: Nose normal. Mouth/Throat: Oropharynx is clear and moist. Eyes: Conjunctivae and EOM are normal. Pupils are equal, round, and reactive to light. Neck: Normal range of motion. Cardiovascular: Normal rate, regular rhythm and normal heart sounds. Pulmonary/Chest: Effort normal and breath sounds normal. Abdominal: Soft. Bowel sounds are normal. Musculoskeletal: Normal range of motion. Neurological: He is alert and oriented to person, place, and time. Skin: Skin is warm and dry. Psychiatric: He has a normal mood and affect. RECENT LABS Lab Results Component Value Date EGFR 39 (L) 07/03/2018 CREATININE 1.75 (H) 07/03/2018 CREATININEUR 31 07/03/2018 PROTCREATU 63 11/04/2016 GLUCOSE TRACE (A) 07/03/2018 PTH 30 07/03/2018 HCT 35.7 (L) 07/03/2018 BUN 31 (H) 07/03/2018 NA 137 07/03/2018 K 4.2 07/03/2018 CL 98 07/03/2018 CO2 28 07/03/2018 ALBUMIN 4.2 07/03/2018 CA 9.6 07/03/2018 CA 9.6 07/03/2018 ASSESSMENT AND PLAN Assessment/Plan Diagnoses and all orders for this visit: Chronic kidney disease, stage 3 (moderate) Stable renal function. Goals of treatment include tight control of BP and blood sugar, avoid NSAIDS, and maintain hydration. Will continue to follow on every 6 month basis at this time. - CBC (Includes Diff/PLT); Future - Renal Function Panel; Future - Albumin/Creatinine Ratio, Random, Urine; Future - Urinalysis, Complete; Future Monoclonal gammopathy Follows with Dr. Leonardo and has upcoming appt. Will obtain copy of office note following that visit. Essential (primary) hypertension Goal BP to be less than 140/90 Currently at goal and will continue with same medications. Diabetes mellitus, not otherwise specified Goal A1C to be less than 7 Reports some elevated readings. Is unsure of last A1C. WILLIAM SAMUEL NP documented in this encounter Plan of Treatment Upcoming Encounters Date Type Department Care Team (Late st Contact Info) Description 06/04/2024 1:40 PM SLAB CONDITIONER SUPERVISOR Office Visit [facility] [address] [facility], [address] [place], [place] [id number] William Samuel NP [address] [address] Scheduled Orders Name Type Priority Associated Diagnoses Orde r Schedule CBC (Includes Diff/PLT) Lab Routine Chronic kidney disease, stage 3 (moderate) Expected: 01/17/2019, Expires: 07/19/2019 Renal Function Panel Lab Routine Chronic kidney disease, stage 3 (moderate) Expected: 01/17/2019, Expires: 07/19/2019 Albumin/Creatinine Ratio, Random, Urine Lab Routine Chronic kidney disease, stage 3 (moderate) Expected: 01/17/2019, Expires: 07/19/2019 Urinalysis, Complete Lab Routine Chronic kidney disease, stage 3 (moderate) Expected: 01/17/2019, Expires: 07/19/2019 documented as of this encounter Visit Diagnoses Diagnosis Chronic kidney disease, stage 3 (moderate)- Primary Monoclonal gammopathy Essential (primary) hypertension Diabetes mellitus, not otherwise specified ([facility]) documented in this encounter
--- OUTSIDE RECORDS SUMMARY | 2024-04-15 06:19 | XMS_ITS | Encounter Summary ---
Author Organization [facility] Address [address] [place] [phone] Phone Care Team Providers Care Visitor Information Assistant Name Role Phone Unavailable Primary Care Provider Unavailabl e Encounter Details Date Type Department Care Team (Late st Contact Info) Description 12/06/2017 Legacy Encounter - Labs HISTORICAL CONVERSION [facility]ENTRAL [address] [facility], [facility] [address] [address], [place] [address] Kev Dey MD [address] [address] Social History Tobacco Use Types Packs/Day Years Used Date Smoking Tobacco: Never Assessed Sex and Gender Information Value Date Recorded Sex Assigned at Not on file Gender Identity Not on file Sexual Orientation Not on file documented as of this encounter Plan of Treatment Upcoming Encounters Date Type Department Care Team (Late st Contact Info) Description 06/04/2024 1:40 PM RADIOLOGY PHYSICIAN ASSISTANT Office Visit [facility] [address], [address] [place] [address] Massiel Meehan NP [address] [address] documented as of this encounter Procedures Procedure Name Priority Date/Time Associated Diagnosis Comments CLINICAL PDF REPORT [id number] Routine 12/06/2017 9:33 AM CDT CBC (INCLUDES DIFFERENTIAL/PLATEL ETS) Routine 12/06/2017 9:33 AM CDT RENAL FUNCTION PANEL (RFP) Routine 12/06/2017 9:33 AM CDT PTH INTACT AND CALCIUM, SERUM Routine 12/06/2017 9:33 AM CDT documented in this encounter Results * Clinical Pdf Report [id number] (12/06/2017 9:33 AM CDT) PDF EXTERNAL L AB (NON-INTERFACED) 12/06/2017 9:33 AM CDT 12/06/2017 9:34 AM CDT Kev Dey MD LAB BLOOD ORDERABLES EXTERNAL LAB (NON-INTERFACED) * (ABNORMAL) CBC (Includes Diff/Plt) (12/06/2017 9:33 AM CDT) Leukocytes, Blood 5.4 3.8 - 10.8 Thousand/ uL EXTERNAL LAB (NON-INTERFAC ED) Erythrocytes (RBC) 3.95(L) 4.20 - 5.80 Million/u L EXTERNAL LAB (NON-INTERFAC ED) Hemoglobin (HGB) 12.0(L) 13.2 - 17.1 g/dL EXTERNAL LAB (NON-INTERFAC ED) Hematocrit (HCT) 35.9(L) 38.5 - 50.0 % EXTERNAL LAB (NON-INTERFAC ED) MCV 90.9 80.0 - 100.0 fL EXTERNAL LAB (NON-INTERFAC ED) MCH 30.4 27.0 - 33.0 pg EXTERNAL LAB (NON-INTERFAC ED) MCHC 33.4 32.0 - 36.0 g/dL EXTERNAL LAB (NON-INTERFAC ED) Erythrocyte Distribution Width (RDW) 12.9 11.0 - 15.0 % EXTERNAL LAB (NON-INTERFAC ED) Platelets, Blood 216 140 - 400 Thousand/ uL EXTERNAL LAB (NON-INTERFAC ED) Platelet mean volume, Blood 11.0 7.5 - 12.5 fL EXTERNAL LAB (NON-INTERFAC ED) Neutrophils, Blood 3,197 1,500 - 7,800 cells/uL EXTERNAL LAB (NON-INTERFAC ED) Band form neutrophils, Blood CANCELED 0 - 750 cells/uL EXTERNAL LAB (NON-INTERFAC ED) Comment:Result canceled by t he ancillary. Metamyelocytes, Blood CANCELED 0 cells/uL EXTERNAL LAB (NON-INTERFAC ED) Comment:Result canceled by t he ancillary. Myelocytes, Blood CANCELED 0 cells/uL EXTERNAL LAB (NON-INTERFAC ED) Comment:Result canceled by t he ancillary. Promyelocytes, Blood CANCELED 0 cells/uL EXTERNAL LAB (NON-INTERFAC ED) Comment:Result canceled by t he ancillary. Lymphocytes, Blood 1,480 850 - 3,900 cells/uL EXTERNAL LAB (NON-INTERFAC ED) Monocytes, Blood 518 200 - 950 cells/uL EXTERNAL LAB (NON-INTERFAC ED) Eosinophils, Blood 157 15 - 500 cells/uL EXTERNAL LAB (NON-INTERFAC ED) Basophils, Blood 49 0 - 200 cells/uL EXTERNAL LAB (NON-INTERFAC ED) Blasts, Blood CANCELED 0 cells/uL EXTERNAL LAB (NON-INTERFAC ED) Comment:Result canceled by t he ancillary. Nucleated erythrocytes, Blood CANCELED 0 cells/uL EXTERNAL LAB (NON-INTERFAC ED) Comment:Result canceled by t he ancillary. Neutrophils/100 leukocytes, Blood 59.2 % EXTERNAL L AB (NON-INTERFAC ED) Band form neutrophils/100 leukocytes, Blood CANCELED % EXTERNAL L AB (NON-INTERFAC ED) Comment:Result canceled by t he ancillary. Metamyelocytes/10 0 leukocytes, Blood CANCELED % EXTERNAL LAB (NON-INTERFAC ED) Comment:Result canceled by t he ancillary. Myelocytes/100 leukocytes, Blood CANCELED % EXTERNAL L AB (NON-INTERFAC ED) Comment:Result canceled by t he ancillary. Promyelocytes/100 leukocytes, Blood CANCELED % EXTERNAL L AB (NON-INTERFAC ED) Comment:Result canceled by t he ancillary. Lymphocytes/100 leukocytes, Blood 27.4 % EXTERNAL L AB (NON-INTERFAC ED) Variant lymphocytes/100 leukocytes, Blood CANCELED 0 - 10 % EXTERNAL L AB (NON-INTERFAC ED) Comment:Result canceled by t he ancillary. Monocytes/100 leukocytes, Blood 9.6 % EXTERNAL L AB (NON-INTERFAC ED) Eosinophils/100 leukocytes, Blood 2.9 % EXTERNAL L AB (NON-INTERFAC ED) Basophils/100 leukocytes, Blood 0.9 % EXTERNAL L AB (NON-INTERFAC ED) Blasts/100 leukocytes, Blood CANCELED % EXTERNAL L AB (NON-INTERFAC ED) Comment:Result canceled by t he ancillary. Nucleated erythrocytes/100 leukocytes, Blood CANCELED 0 /100 WBC EXTERNAL LAB (NON-INTERFAC ED) Comment:Result canceled by t he ancillary. Service comment CANCELED EXTE RNAL LAB (NON-INTERFAC ED) Comment:Result canceled by t he ancillary. 12/06/2017 9:33 AM CDT 12/06/2017 9:34 AM CDT Kev Dey MD LAB BLOOD ORDERABLES EXTERNAL LAB (NON-INTERFACED) * (ABNORMAL) Renal Function Panel (12/06/2017 9:33 AM CDT) Glucose, Serum/Plasma 204(H) 65 - 99 mg/dL EXTERNAL LAB (NON-INTERFAC ED) Comment: ? Fasting reference interval For someone without known diabetes, a glucose value >125 mg/dL indicates that they may have diabetes and this should be confirmed with a follow-up test. Urea nitrogen, Serum/Plasma (BUN) 37(H) 7 - 25 mg/dL EXTERNAL LAB (NON-INTERFAC ED) Creatinine, Serum/Plasma 2.01(H) 0.70 - 1.25 mg/dL EXTERNAL LAB (NON-INTERFAC ED) Comment: For patients >49 years of age, the reference limit for Creatinine is approximately 13% higher for people identified as -Maldivian. eGFR, non 33(L) > OR = 60 mL/min/1. 73m2 EXTERNAL LAB (NON-INTERFAC ED) eGFR, 39(L) > OR = 60 mL/min/1. 73m2 EXTERNAL LAB (NON-INTERFAC ED) Urea nitrogen/Creatinin e, Serum/Plasma 18 6 - 22 (calc) EXTERNAL LAB (NON-INTERFAC ED) Sodium, Serum/Plasma 137 135 - 146 mmol/L EXTERNAL LAB (NON-INTERFAC ED) Potassium, Serum/Plasma 4.1 3.5 - 5.3 mmol/L EXTERNAL LAB (NON-INTERFAC ED) Chloride, Serum/Plasma 100 98 - 110 mmol/L EXTERNAL LAB (NON-INTERFAC ED) Carbon dioxide CO2), total, Serum/Plasma 28 20 - 32 mmol/L EXTERNAL LAB (NON-INTERFAC ED) Calcium, Serum/Plasma 9.5 8.6 - 10.3 mg/dL EXTERNAL LAB (NON-INTERFAC ED) Phosphate, Serum/Plasma 3.1 2.1 - 4.3 mg/dL EXTERNAL LAB (NON-INTERFAC ED) Albumin, Serum/Plasma 4.0 3.6 - 5.1 g/dL EXTERNAL LAB (NON-INTERFAC ED) 12/06/2017 9:33 AM CDT 12/06/2017 9:34 AM CDT Kev Dey MD LAB BLOOD ORDERABLES EXTERNAL LAB (NON-INTERFACED) * PTH Intact w/ Calcium (12/06/2017 9:33 AM CDT) PTH, Intact, Serum/Plasma 39 14 - 64 pg/mL EXTERNAL LAB (NON-INTERFAC ED) Comment: Interpretive Guide ?Intact PTH ? Calcium ? ------- Normal Parathyroid ?Normal ? Normal Hypoparathyroidism ?Low or Low Normal ?Low Hyperparathyroidism ?? Primary ?Normal or High ? High ?? Secondary ?High ? Normal or Low ?? Tertiary ? High ? High Non-Parathyroid ?? Hypercalcemia ?Low or Low Normal ?High Calcium, Serum/Plasma 9.5 8.6 - 10.3 mg/dL EXTERNAL LAB (NON-INTERFAC ED) 12/06/2017 9:33 AM CDT 12/06/2017 9:34 AM CDT Kev Dey MD LAB BLOOD ORDERABLES EXTERNAL LAB (NON-INTERFACED) documented in this encounter Visit Diagnoses Not on filedocumented in this encounter
--- OUTSIDE RECORDS SUMMARY | 2024-04-15 06:19 | XMS_ITS | Encounter Summary ---
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 Name Role Phone Unavailable Primary Care Provider Unavailabl e Encounter Details Date Type Department Care Team ([facility] Contact Info) Description 07/03/2018 Orders Only [facility] [address] [facility] [address] [place] [address] Kev Dey MD [address] [facility] [address] [place] [address] Social History Tobacco Use Types Packs/Day [...] Upcoming Encounters Date Type Department Care Team ([facility] Contact Info) Description 06/04/2024 1:40 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 [facility] [address] [facility] [place] [address] Massiel Meehan NP [address] [facility] [address] [place] [address] documented as of this encounter Procedures Procedure Name Priority Date/Time Associated Diagnosis Comments CBC (INCLUDES DIFFERENTIAL/PLATEL ETS) Routine 07/03/2018 12:30 PM CDT RENAL FUNCTION PANEL (RFP) Routine 07/03/2018 12:30 PM CDT PTH INTACT AND CALCIUM, SERUM Routine 07/03/2018 12:30 PM CDT documented in this encounter Results * (ABNORMAL) CBC (Includes Diff/Plt) (07/03/2018 12:30 PM CDT) [facility] Leukocytes, Blood 6.7 3.8 - 10.8 Thousand/ uL [facility] ([facility]) Erythrocytes (RBC) 3.96(L) 4.20 - 5.80 Million/u L [facility] ([facility]) Hemoglobin (HGB) 12.0(L) 13.2 - 17.1 g/dL [facility] ([facility]) Hematocrit (HCT) 35.7(L) 38.5 - 50.0 % [facility] (ST[facility]) MCV 90.2 80.0 - 100.0 fL [facility] (ST[facility]) MCH 30.3 27.0 - 33.0 pg [facility] ([facility]) MCHC 33.6 32.0 - 36.0 g/dL [facility] ([facility]) Erythrocyte Distribution Width (RDW) 12.8 11.0 - 15.0 % [facility] ([facility]) Platelets, Blood 250 140 - 400 Thousand/ uL [facility] ([facility]) Platelet mean volume, Blood 11.0 7.5 - 12.5 fL [facility] ([facility]) Neutrophils, Blood 4,027 1,500 - 7,800 cells/uL [facility] ([facility]) Band form neutrophils, Blood CANCELED 0 - 750 cells/uL [facility] ([facility]) Comment:Result canceled by t he ancillary. Metamyelocytes, Blood CANCELED 0 cells/uL [facility] ([facility]) Comment:Result canceled by t he ancillary. Myelocytes, Blood CANCELED 0 cells/uL [facility] ([facility]) Comment:Result canceled by t he ancillary. Promyelocytes, Blood CANCELED 0 cells/uL [facility] ([facility]) Comment:Result canceled by t he ancillary. Lymphocytes, Blood 1,950 850 - 3,900 cells/uL [facility] ([facility]) Monocytes, Blood 529 200 - 950 cells/uL [facility] ([facility]) Eosinophils, Blood 147 15 - 500 cells/uL [facility] ([facility]) Basophils, Blood 47 0 - 200 cells/uL [facility] ([facility]) Blasts, Blood CANCELED 0 cells/uL [facility] ([facility]) Comment:Result canceled by t he ancillary. Nucleated erythrocytes, Blood CANCELED 0 cells/uL [facility] ([facility]) Comment:Result canceled by t he ancillary. Neutrophils/100 leukocytes, Blood 60.1 % [facility] [...] by t he ancillary. Lymphocytes/100 leukocytes, Blood 29.1 % [facility] ([facility]) Variant lymphocytes/100 leukocytes, Blood CANCELED 0 - 10 % [facility] ([facility]) Comment:Result canceled by t he ancillary. Monocytes/100 leukocytes, Blood 7.9 % [facility] ([facility]) Eosinophils/100 leukocytes, Blood 2.2 % [facility] ([facility]) Basophils/100 leukocytes, Blood 0.7 % [facility] ([facility]) Blasts/100 leukocytes, Blood CANCELED % [facility] ([facility]) Comment:Result canceled by t he ancillary. Nucleated erythrocytes/100 leukocytes, Blood CANCELED 0 /[address] [facility] ([facility]) Comment:Result canceled by t wale ancillary. Service comment [facility]ED [facility] ([facility]) Comment:Result canceled by mandi ancillary. 07/03/2018 12:3 0 PM CDT 07/03/2018 12:33 PM CDT Narrative [facility] ([facility]) - 07/04/2018 5:12 PM CDT PATIENT UNABLE TO VOID; ADVISED TO RETURN FOR COLLECTION. Resulting Agency Comment Performing Organization Information: ?Site ID: [id number] ?Name: [facility] ?Address: [address] [place] [address] ?Director: Taurus Yen D.O., MPH Kev Dey MD LAB BLOOD ORDERABLES [facility] (ST) * (ABNORMAL) Renal Function Panel (07/03/2018 12:30 PM CDT) Glucose, Serum/Plasma 218(H) 65 - 99 mg/dL [facility] ([facility]) Comment: ? Fasting reference interval For someone without known diabetes, a glucose value >125 mg/dL indicates that they may have diabetes and this should be confirmed with a follow-up test. Urea nitrogen, Serum/Plasma (BUN) 31(H) 7 - 25 mg/dL [facility] ([facility]) Creatinine, Serum/Plasma 1.75(H) 0.70 - 1.25 mg/dL [facility] ([facility]) Comment: For patients >49 years of age, the reference limit for Creatinine is approximately 13% higher for people identified as -Welsh. eGFR, non 39(L) > OR = 60 mL/min/1. 73m2 [facility] ([facility]) eGFR, 45(L) > OR = 60 mL/min/1. 73m2 [facility] ([facility]) Urea nitrogen/Creatinin e, Serum/Plasma 18 6 - 22 (calc) [facility] ([facility]) Sodium, Serum/Plasma 137 135 - 146 mmol/L [facility] ([facility]) Potassium, Serum/Plasma 4.2 3.5 - 5.3 mmol/L [facility] ([facility]) Chloride, Serum/Plasma 98 98 - 110 mmol/L [facility] ([facility]) Carbon dioxide CO2), total, Serum/Plasma 28 20 - 32 mmol/L [facility] (ST) Calcium, Serum/Plasma 9.6 8.6 - 10.3 mg/dL [facility] [place] (ST) Phosphate, Serum/Plasma 3.2 2.1 - 4.3 mg/dL [facility] (ST) Albumin, Serum/Plasma 4.2 3.6 - 5.1 g/dL [facility] [place] ([facility]) 07/03/2018 12:3 0 PM CDT 07/03/2018 12:33 PM CDT Narrative [facility] ([facility]) - 07/04/2018 5:12 PM CDT PATIENT UNABLE TO VOID; ADVISED TO RETURN FOR COLLECTION. Resulting Agency Comment Performing Organization Information: ?Site ID: [place] ?Name: [facility] ?Address: [address] [place] [address] [place] [address] ?Director: Taurus Yen D.O., MPH Kev Dey MD LAB BLOOD ORDERABLES [facility] [place] ([facility]) * PTH Intact w/ Calcium (07/03/2018 12:30 PM CDT) PTH, Intact, Serum/Plasma 30 14 - 64 pg/mL [facility] (ST) Comment: Interpretive Guide ?Intact PTH ? Calcium ? ------- Normal Parathyroid ?Normal ? Normal Hypoparathyroidism ?Low or Low Normal ?Low Hyperparathyroidism ?? Primary ?Normal or High ? High ?? Secondary ?High ? Normal or Low ?? Tertiary ? High ? High Non-Parathyroid ?? Hypercalcemia ?Low or Low Normal ?High Calcium, Serum/Plasma 9.6 8.6 - 10.3 mg/dL [facility]) 07/03/2018 12:3 0 PM CDT 07/03/2018 12:33 PM CDT Narrative [facility] ([facility]) - 07/04/2018 5:12 PM CDT PATIENT UNABLE TO VOID; ADVISED TO RETURN FOR COLLECTION. Resulting Agency Comment Performing Organization Information: ?Site ID: [place] ?Name: [facility] ?Address: [id number] [place], [place] [address] [address] ?Director: Taurus Yen D.O., MPH Kev Dey MD LAB BLOOD ORDERABLES [facility] ([facility]) documented in this encounter Visit Diagnoses Not on filedocumented in this encounter
== END 2024-04-08 23:41 | disposition short-term general hospital (02) ==
PROVIDERS: Emergency Provider Student in an Organized Health Care Education/Training Program; PCP Emergency Medicine
DX: A41.9 Sepsis, unspecified organism (principal); R65.20 Severe sepsis without septic shock; M72.6 Necrotizing fasciitis; Z20.822 Contact with and (suspected) exposure to COVID-19; E11.628 Type 2 diabetes mellitus with other skin complications; L89.153 Pressure ulcer of sacral region, stage 3; E11.621 Type 2 diabetes mellitus with foot ulcer; L97.429 Non-pressure chronic ulcer of left heel and midfoot with unspecified severity; L97.419 Non-pressure chronic ulcer of right heel and midfoot with unspecified severity; E11.22 Type 2 diabetes mellitus with diabetic chronic kidney disease; N18.9 Chronic kidney disease, unspecified; I48.91 Unspecified atrial fibrillation; E78.5 Hyperlipidemia, unspecified; E66.01 Morbid (severe) obesity due to excess calories; Z68.39 Body mass index [BMI] 39.0-39.9, adult; Z79.01 Long term (current) use of anticoagulants
CPT/HCPCS: 36415; 36556; 71045; 74177; 80053; 81001; 83605; 85025; 85610; 85730; 86140; 87040; 87086; 87637; 96361; 96365; 96366; 96367; 96368; 99285; C1751; J0692; J3370; J7030; J7120; Q9967